=== PATIENT | male | born 1970 | race African-American/Black ===

== ENCOUNTER 2016-09-01 16:05 | Emergency (ER) | payer MEDICAID ==
[2016-09-01 16:19] VITALS: BP 174/89; BMI 26.1
--- NOTE | 2016-09-01 16:37 | DR.N/VMALE ---
HPI - Time Seen Time seen: 16:32 - Primary Care Physician Primary Care Physician: SAVANNAH SHARPE - Complaints Chief Complaint Doctors Comments: Patient with gastroparesis was admitted Aug and discharged on Aug. He states that he at [employer] on yesterday and started vomitng. He reports that he has been vomiting today. He admits to not having medication for vomiting but takens reglan. Chief Complaint:: PT C/O VOMITING TODAY .... Self Treatment fo Chief Complaint: DRAMAMINE - Source History Provided: Patient - Mode of Arrival Mode of Arrival: Ambulatory - Timing Onset of Chief Complaint: 09/01/16 PMH - PMH Past Medical History: Yes Past Medical History: Anxiety, Coronary Artery Disease, Diabetes, Dyslipidemia, GERD, Hypertension Past Surgical History: Yes Surgical History: Cholecystectomy, Ortho Surgery - Family History History of Family Medical Conditions: Yes Family Medical History: Diabetes Mellitus, Hypertension - Social History Does patient currently use any type of tobacco product: No Have you used tobacco products in the last 12 months: No Type of Tobacco Use: None Does any household member use tobacco: No Alcohol Use: None Do you use any recreational Drugs:: No Lives With: Family Lives Where: Home - infectious screening In the last 2 months have you had wt loss of >10#?: NO Have you had fever, night sweats or hemotysis?: No Have you traveled outside the country in the last 6 months?: No Isolation: Standard PE - Vital Signs Vitals: Temperature 98.5 F Pulse Rate 118 Respiratory Rate 20 Blood Pressure [Right Arm] 147/89 Blood Pressure [Left Arm] 126/82 Blood Pressure [Left Radial 160/102 Artery] Blood Pressure 174/89 O2 Sat by Pulse Oximetry 98 Course - Treatment Treatment: IVF and antiemetics, zofran cocktail - Reevaluation 1st: Improved ROR - Labs Reviewed Result Diagrams: 09/01/16 17:10 09/01/16 17:10 Laboratory: WBC 7.2 X10^3/uL (3.6-10.0) 09/01/16 17:10 RBC 5.11 X10^6/uL (4.7-6.0) 09/01/16 17:10 Hgb 13.2 g/dL (13.5-18.0) L 09/01/16 17:10 Hct 39.8 % (42.0-54.0) L 09/01/16 17:10 MCV 78.0 fL (80.0-100.0) L 09/01/16 17:10 MCH 25.8 pg (27.0-34.0) L 09/01/16 17:10 MCHC 33.1 g/dL (33.0-35.0) 09/01/16 17:10 RDW 13.8 % (11.6-16.5) 09/01/16 17:10 Plt Count 303 X10^3/uL (150.0-450.0) 09/01/16 17:10 Plt Count Comment Adequate (ADEQUATE) 09/01/16 17:10 MPV 8.3 fL (7.4-11.0) 09/01/16 17:10 Neut % 74.3 % (42.0-75.0) 09/01/16 17:10 Lymph % 18.3 % (21.0-51.0) L 09/01/16 17:10 [place] % 6.9 % (0.0-13.0) 09/01/16 17:10 Eos % 0.1 % (0.9-2.9) L 09/01/16 17:10 Baso % 0.4 % (0.2-1.0) 09/01/16 17:10 Neut # 5.4 x10^3/uL (2.2-4.8) H 09/01/16 17:10 Lymph # 1.3 X10^3/uL (1.3-2.9) 09/01/16 17:10 [place] # 0.5 x10^3/uL (0.3-0.8) 09/01/16 17:10 Eos # 0.0 x10^3/uL (0.0-0.2) 09/01/16 17:10 Baso # 0.0 X10^3/uL (0.0-0.1) 09/01/16 17:10 Absolute Nucleated RBC 0.0 /100WBC 09/01/16 17:10 Plt Morphology Comment Normal (NORMAL) 09/01/16 17:10 RBC Morphology Normal (NORMAL) 09/01/16 17:10 Sodium 139 mmol/L (136-145) 09/01/16 17:10 Corrected Sodium 143 mmol/L (136-145) 09/01/16 17:10 Potassium 3.7 mmol/L (3.5-5.1) 09/01/16 17:10 Chloride 99 mmol/L (98-107) 09/01/16 17:10 Carbon Dioxide 30.0 mmol/L (21-32) 09/01/16 17:10 BUN 18 mg/dL (7-18) 09/01/16 17:10 Creatinine 1.19 mg/dL (0.70-1.30) 09/01/16 17:10 Est GFR (MDRD) Af Amer > 60 (>60) 09/01/16 17:10 Est GFR (MDRD) Non-Af > 60 (>60) 09/01/16 17:10 Glucose 251 mg/dL (65-99) H 09/01/16 17:10 Calcium 8.8 mg/dL (8.5-10.1) 09/01/16 17:10 Corrected Calcium TNP 09/01/16 17:10 Total Bilirubin 0.80 mg/dL (0.2-1.0) 09/01/16 17:10 AST 16 Units/L (15-37) 09/01/16 17:10 ALT 26 Units/L (12-78) 09/01/16 17:10 Alkaline Phosphatase 108 Units/L (46-116) 09/01/16 17:10 Total Protein 8.3 g/dL (6.4-8.2) H 09/01/16 17:10 Albumin 4.0 g/dL (3.4-5.0) 09/01/16 17:10 Globulin 4.3 g/dL (2.5-4.5) 09/01/16 17:10 Albumin/Globulin Ratio 0.9 Ratio (1.1-2.1) L 09/01/16 17:10 Specimen Type Clean catch urine 09/01/16 17:08 Urine Color Yellow (YELLOW) 09/01/16 17:08 Urine Appearance Clear (CLEAR) 09/01/16 17:08 Urine pH 5.0 (5.0 - 8.0) 09/01/16 17:08 Ur Specific [place] 1.025 (1.000-1.030) 09/01/16 17:08 Urine Protein 2+ (NEGATIVE) 09/01/16 17:08 Urine Glucose (UA) 4+ (NEGATIVE) 09/01/16 17:08 Urine Ketones 4+ (NEGATIVE) 09/01/16 17:08 Urine Occult Blood 2+ (NEGATIVE) 09/01/16 17:08 Urine Nitrite Negative (NEGATIVE) 09/01/16 17:08 Urine Bilirubin Negative (NEGATIVE) 09/01/16 17:08 Urine Urobilinogen 1+ (NORMAL) 09/01/16 17:08 Ur Leukocyte Esterase 1+ (NEGATIVE) 09/01/16 17:08 Urine RBC Rare /HPF (NEGATIVE) 09/01/16 17:08 Urine WBC Rare /HPF (NEGATIVE) 09/01/16 17:08 Ur Squamous Epith Cells Rare /HPF (NEGATIVE) 09/01/16 17:08 Amorphous Sediment Trace /HPF (NEGATIVE) 09/01/16 17:08 Urine Bacteria Negative /HPF (NEGATIVE) 09/01/16 17:08 Ur Culture Indicated? No/not indicated 09/01/16 17:08 - Diagnosis Discharge Problem: Gastroparesis due to DM Intractable vomiting Qualifiers: Vomiting type: unspecified Nausea presence: with nausea Qualified Code(s): R11.2 - Nausea with vomiting, unspecified - Discharge Plan Condition: Stable - Follow ups/Referrals Follow ups/Referrals: Williams Worthington [Primary Care Provider] - 3 days - Instructions
[2016-09-01] MEDS ORDERED: NS 1000 ML 1,000 ML IV ONE ×2 (16:39→20:34)
[2016-09-01] MEDS ORDERED: COMPAZINE PO ONE (16:41)
[2016-09-01] MEDS ORDERED: NS 1000 ML 1,000 ML ONE ×2 (17:03→20:38)
[2016-09-01] MEDS ORDERED: PHENERGAN INJ 25 MG IM ONE (17:04)
[2016-09-01] MEDS ORDERED: PHENERGAN INJ 25 MG ONE (17:04)
[2016-09-01 17:22] LABS: BILIRUBIN,URINE NEGATIVE (NEGATIVE); BLOOD/HEMOGLOBIN,URINE 2+ (NEGATIVE); GLUCOSE, URINE 4+ (NEGATIVE); KETONES,URINE 4+ (NEGATIVE); LEUKOCYTE ESTERASE ,URINE 1+ (NEGATIVE); NITRITES,URINE NEGATIVE (NEGATIVE); PROTEIN,URINE 2+ (NEGATIVE); UROBILINOGEN,URINE 1+ (NORMAL)
[2016-09-01 17:24] LABS: BASOPHILS % (AUTO) 0.4 % (0.2-1.0); EOSINOPHILS % (AUTO) 0.1 % (0.9-2.9); HEMATOCRIT 39.8 % (42.0-54.0); HEMOGLOBIN 13.2 g/dL (13.5-18.0); LYMPHOCYTES # (AUTO) 1.3 X10^3/uL (1.3-2.9); LYMPHOCYTES % (AUTO) 18.3 % (21.0-51.0); MEAN CORPUSCULAR HEMOGLOBIN 25.8 pg (27.0-34.0); MEAN CORPUSCULAR HGB CONC 33.1 g/dL (33.0-35.0); MEAN PLATELET VOLUME 8.3 fL (7.4-11.0); MONOCYTES # (AUTO) 0.5 x10^3/uL (0.3-0.8); MONOCYTES % (AUTO) 6.9 % (0.0-13.0); NEUTROPHILS # (AUTO) 5.4 x10^3/uL (2.2-4.8); NEUTROPHILS % (AUTO) 74.3 % (42.0-75.0); PLATELET COUNT 303 X10^3/uL (150.0-450.0); RED BLOOD COUNT 5.11 X10^6/uL (4.7-6.0); RED CELL DISTRIBUTION WIDTH 13.8 % (11.6-16.5); WHITE BLOOD COUNT 7.2 X10^3/uL (3.6-10.0)
[2016-09-01 17:36] LABS: ALANINE AMINOTRANSFERASE 26 Units/L (12-78); ALKALINE PHOSPHATASE 108 Units/L (46-116); ASPARTATE AMINO TRANSFERASE 16 Units/L (15-37); BLOOD UREA NITROGEN 18 mg/dL (7-18); CALCIUM 8.8 mg/dL (8.5-10.1); CHLORIDE 99 mmol/L (98-107); COR NA(FOR HYPERGLY) 143 mmol/L (136-145); CREATININE 1.19 mg/dL (0.70-1.30); GLUCOSE 251 mg/dL (65-99); SODIUM 139 mmol/L (136-145); TOTAL PROTEIN 8.3 g/dL (6.4-8.2); eGFR BLACK RACES > 60 (>60); eGFR NON BLACK RACES > 60 (>60)
[2016-09-01 17:45] LABS: PLATELET MORPHOLOGY COMMENT NORMAL (NORMAL)
[2016-09-01 18:06] LABS: APPEARANCE,URINE CLEAR (CLEAR); BACTERIA,URINE NEGATIVE /HPF (NEGATIVE); COLOR,URINE YELLOW (YELLOW); RBC,URINE RARE /HPF (NEGATIVE); SQUAMOUS EPITHELIAL CELL,UR RARE /HPF (NEGATIVE)
[2016-09-01 18:07] LABS: AMORPHOUS SEDIMENT,UR TRACE /HPF (NEGATIVE)
[2016-09-01] MEDS ORDERED: ZOFRAN INJ 4 MG VIAL 16 MG, ATIVAN INJ 2 MG VIAL 1 MG, DECADRON INJ 10 MG in NS 50 ML I... IV ONE (20:34)
[2016-09-01] MEDS ORDERED: ZOFRAN INJ 4 MG VIAL ONE (20:36)
[2016-09-01] MEDS ORDERED: DECADRON INJ ONE (20:37)
[2016-09-01] MEDS ORDERED: NS 50 ML IV 50 ML IV ONE (20:37)
[2016-09-01] MEDS ORDERED: ATIVAN INJ 2 MG VIAL ONE (20:37)
== END 2016-09-01 21:55 | disposition home or self-care (01) ==
LOC: ER 16:05
DX: E11.9 Type 2 diabetes mellitus without complications (principal); K31.84 Gastroparesis; R11.2 Nausea with vomiting, unspecified
CPT/HCPCS: 36415; 80053; 81001; 85025; 96365; 96367; 96372; 96374; 99283; A4222; J1100; J2060; J2405; J2550

== ENCOUNTER → 2016-09-05 | Outpatient (CLI) | payer MEDICAID ==
[2016-09-01 16:19] VITALS: BP 174/89
--- NOTE | 2016-09-05 15:36 | RAD ---
HISTORY: Lumbosacral neuritis, low back pain Study: Flexion and extension views of the lumbar spine Comparison: Prior MRI 07/26/2014 Findings: Normal alignment of the lumbar spine with no significant subluxation on flexion and extension views. Degenerative disc disease and endplate sclerosis with marginal osteophyte formation is seen at L5-S 1. Cholecystectomy clips are noted. There is a large volume of retained stool. IMPRESSION: 1. Degenerative changes at L5-S1. No evidence of subluxation on flexion and extension. Reported By:
--- NOTE | 2016-09-06 14:21 | MRI ---
HISTORY: Back pain Study: MRI lumbar spine without contrast Comparison: 07/26/2014 Technique: Multiplanar multi-sequence MRI of the lumbar spine was obtained. Sagittal T1, sagittal T 2, and stir weighted images, axial T1, and axial T2 images were obtained. Findings: The lumbar spine demonstrates normal alignment . There is mild to moderate disc space narrowing thro ughout with severe narrowing at L5-S1 which is unchanged. There is severe disc desiccation at L5-S1 with associated moderate endplate degenerative changes which is unchanged. No fracture or subluxatio n is seen. The conus is normal. There is a moderate broad-based disc protrusion at L5-S1 causing mod erate anterior dural sac effacement and mild effacement of the S1 nerve roots bilaterally which is u nchanged. There are mild hypertrophic changes of the facets throughout with ligament flavum hypertro phy causing mild spinal stenosis throughout which is unchanged. The paravertebral soft tissues are n ormal. IMPRESSION: Mild to moderate multilevel degenerative disc disease which is unchanged with no acute bony abnormal ity seen. Severe degenerative disc disease at L5-S1 with an associated moderate broad-based central protrusion which is unchanged. Mild osteoarthritic changes of the facets throughout and associated diffuse mild spinal stenosis whi ch is unchanged. Reported By:
== END | disposition home or self-care (01) | DRG 552 ==
LOC: RAD 13:25
PROVIDERS: ATTEND Neurological Surgery
DX: M54.17 Radiculopathy, lumbosacral region (principal); M51.37 Other intervertebral disc degeneration, lumbosacral region
CPT/HCPCS: 72120; 72148

== ENCOUNTER 2017-01-26 21:42 | Inpatient (IN) | payer MEDICAID ==
[2017-01-26] MEDS ORDERED: NS 1000 ML 1,000 ML ONE (21:52)
[2017-01-26] MEDS ORDERED: ZOFRAN INJ 4 MG VIAL ONE (21:53)
--- NOTE | 2017-01-26 22:20 | DR.N/VMALE ---
HPI - Time Seen Time seen: 22:05 - Primary Care Physician Primary Care Physician: ethan - HPI Comment HPI Comment: Patient states that he has not been able to hold anything down today. He is known to the department. He has a history of gastroparesis. - Complaints Chief Complaint:: n/v since earlier today Self Treatment fo Chief Complaint: phenergan - Source History Provided: Patient - Mode of Arrival Mode of Arrival: Ambulatory - Timing Onset of Chief Complaint: 01/26/17 PMH - PMH Past Medical History: Yes Past Medical History: Anxiety, Coronary Artery Disease, Diabetes, Dyslipidemia, GERD, Hypertension Past Surgical History: Yes Surgical History: Cholecystectomy, Ortho Surgery - Family History History of Family Medical Conditions: Yes Family Medical History: Diabetes Mellitus, Hypertension - Social History Does patient currently use any type of tobacco product: No Have you used tobacco products in the last 12 months: No Type of Tobacco Use: None Does any household member use tobacco: No Alcohol Use: None Do you use any recreational Drugs:: No Lives With: Spouse, Family Lives Where: Home - infectious screening Have you traveled outside the country in the last 6 months?: No Isolation: Standard ROS - Review of Systems Eyes: No Symptoms Reported ENTM: No Symptoms Reported Respiratoy: No Symptoms Reported Cardiovascular: No Symptoms Reported Gastrointestinal/Abdominal: No Symptoms Reported Genitourinary: No Symptoms Reported Neurological: No Symptoms Reported Musculoskeletal: No Symptoms Reported Integumentary: No Symptoms Reported Hematologic/Lymphatic: No Symptoms Reported Endocrine: No Symptoms Reported Psychiatric: No Symptoms Reported All Other Systems: Reviewed and Negative PE - Vital Signs Vitals: Pulse Rate 115 Respiratory Rate 16 Blood Pressure [Right Arm] 147/89 Blood Pressure [Left Arm] 126/82 Blood Pressure [Left Radial 160/102 Artery] Blood Pressure 176/96 O2 Sat by Pulse Oximetry 100 - General General Appearance: Alert, In No Apparent Distress - Head Head Exam: Normal Inspection, Atraumatic - Eyes Eye exam: Normal Appearance, PERRL, EOMI - ENT ENT Exam: Normal Exam, Normal Oropharynx - Neck Neck Exam: Normal Inspection, Full ROM - Chest Chest Inspection: Normal Inspection, Symmetric Chest Wall Rise - Respiratory Respiratory Exam: Normal Lung Sounds Bilat Respiratory Exam: Bilateral Clear to Auscultation - Cardiovascular Cardiovascular Exam: Regular Rate, Normal Rhythm - Abdominal Exam Abdominal Exam: Normal Inspection, Normal Bowel Sounds Abdominal Tenderness: Diffuse - Rectal Rectal Exam: Deferred - Exam: Male: Deferred - Extremities Extremities Exam: Normal Inspection, Full ROM - Back Back Exam: Normal Inspection - Neurologic Neurological Exam: Alert, Oriented X3, CN II-XII Intact - Psychiatric Psychiatric Exam: Normal Affect, Normal Mood - Skin Skin Exam: Warm, Dry, Intact Course - Treatment Treatment: Patient continues to vomit - Reevaluation 1st: Unchanged - Consultation Called: 00:30 Call Returned: 00:52 Consultation Comments: Patient with gastroparesis unable to hold anything down, patient of Dr long. Dr Cohen agreed to admit for further treatment ROR - Labs Reviewed Result Diagrams: 01/26/17 22:57 01/26/17 22:57 Laboratory: WBC 11.9 X10^3/uL (3.6-10.0) H 01/26/17 22:57 RBC 5.05 X10^6/uL (4.7-6.0) 01/26/17 22:57 Hgb 12.9 g/dL (13.5-18.0) L 01/26/17 22:57 Hct 39.6 % (42.0-54.0) L 01/26/17 22:57 MCV 78.4 fL (80.0-100.0) L 01/26/17 22:57 MCH 25.6 pg (27.0-34.0) L 01/26/17 22:57 MCHC 32.6 g/dL (33.0-35.0) L 01/26/17 22:57 RDW 14.4 % (11.6-16.5) 01/26/17 22:57 Plt Count 318 X10^3/uL (150.0-450.0) 01/26/17 22:57 Plt Count Comment Adequate (ADEQUATE) 01/26/17 22:57 MPV 9.2 fL (7.4-11.0) 01/26/17 22:57 Neut % 92.7 % (42.0-75.0) H 01/26/17 22:57 Lymph % 5.5 % (21.0-51.0) L 01/26/17 22:57 [place] % 1.6 % (0.0-13.0) 01/26/17 22:57 Eos % 0.0 % (0.9-2.9) L 01/26/17 22:57 Baso % 0.2 % (0.2-1.0) 01/26/17 22:57 Neut # 11.0 x10^3/uL (2.2-4.8) H 01/26/17 22:57 Lymph # 0.7 X10^3/uL (1.3-2.9) L 01/26/17 22:57 [place] # 0.2 x10^3/uL (0.3-0.8) L 01/26/17 22:57 Eos # 0.0 x10^3/uL (0.0-0.2) 01/26/17 22:57 Baso # 0.0 X10^3/uL (0.0-0.1) 01/26/17 22:57 Absolute Nucleated RBC 0.0 /100WBC 01/26/17 22:57 Total Counted 100 01/26/17 22:57 Neutrophils % (Manual) 93 % (39-76) H 01/26/17 22:57 Band Neutrophils % 6 % (0-10) 01/26/17 22:57 Lymphocytes % (Manual) 1 % (13-43) L 01/26/17 22:57 Plt Morphology Comment Normal (NORMAL) 01/26/17 22:57 RBC Morphology Abnormal (NORMAL) 01/26/17 22:57 Hypochromasia Slight A 01/26/17 22:57 Sodium 142 mmol/L (136-145) 01/26/17 22:57 Corrected Sodium 151 mmol/L (136-145) H 01/26/17 22:57 Potassium 4.0 mmol/L (3.5-5.1) 01/26/17 22:57 Chloride 99 mmol/L (98-107) 01/26/17 22:57 Carbon Dioxide 25.0 mmol/L (21-32) 01/26/17 22:57 BUN 16 mg/dL (7-18) 01/26/17 22:57 Creatinine 1.34 mg/dL (0.70-1.30) H 01/26/17 22:57 Est GFR (MDRD) Af Amer > 60 (>60) 01/26/17 22:57 Est GFR (MDRD) Non-Af > 60 (>60) 01/26/17 22:57 Glucose 463 mg/dL (65-99) H 01/26/17 22:57 Calcium 9.1 mg/dL (8.5-10.1) 01/26/17 22:57 Corrected Calcium TNP 01/26/17 22:57 Total Bilirubin 0.60 mg/dL (0.2-1.0) 01/26/17 22:57 AST 13 Units/L (15-37) L 01/26/17 22:57 ALT 22 Units/L (12-78) 01/26/17 22:57 Alkaline Phosphatase 162 Units/L (46-116) H 01/26/17 22:57 C-Reactive Protein 10.10 mg/L (0-3.0) H 01/26/17 22:57 Total Protein 8.9 g/dL (6.4-8.2) H 01/26/17 22:57 Albumin 4.1 g/dL (3.4-5.0) 01/26/17 22:57 Globulin 4.8 g/dL (2.5-4.5) H 01/26/17 22:57 Albumin/Globulin Ratio 0.9 Ratio (1.1-2.1) L 01/26/17 22:57 Amylase 141 Units/L (25-115) H 01/26/17 22:57 Lipase 55 Units/L (73-393) L 01/26/17 22:57 - Diagnosis Discharge Problem: DM gastroparesis - Discharge Plan Condition: Stable - Follow ups/Referrals Follow ups/Referrals: Williams Long [Primary Care Provider] - 3 days - Instructions
[2017-01-26] MEDS ORDERED: NS 1000 ML 1,000 ML IV ONE (22:45)
[2017-01-26] MEDS ORDERED: REGLAN INJ 10 MG VIAL IVP ONE (22:46)
[2017-01-26 23:07] LABS: BASOPHILS % (AUTO) 0.2 % (0.2-1.0); HEMATOCRIT 39.6 % (42.0-54.0); HEMOGLOBIN 12.9 g/dL (13.5-18.0); LYMPHOCYTES # (AUTO) 0.7 X10^3/uL (1.3-2.9); LYMPHOCYTES % (AUTO) 5.5 % (21.0-51.0); MEAN CORPUSCULAR HEMOGLOBIN 25.6 pg (27.0-34.0); MEAN CORPUSCULAR HGB CONC 32.6 g/dL (33.0-35.0); MEAN CORPUSCULAR VOLUME 78.4 fL (80.0-100.0); MEAN PLATELET VOLUME 9.2 fL (7.4-11.0); MONOCYTES # (AUTO) 0.2 x10^3/uL (0.3-0.8); MONOCYTES % (AUTO) 1.6 % (0.0-13.0); NEUTROPHILS % (AUTO) 92.7 % (42.0-75.0); PLATELET COUNT 318 X10^3/uL (150.0-450.0); RED BLOOD COUNT 5.05 X10^6/uL (4.7-6.0); RED CELL DISTRIBUTION WIDTH 14.4 % (11.6-16.5); WHITE BLOOD COUNT 11.9 X10^3/uL (3.6-10.0)
[2017-01-26] MEDS ORDERED: ZOFRAN INJ 4 MG VIAL IVP ONE (23:08)
[2017-01-26] MEDS ORDERED: REGLAN INJ 10 MG VIAL ONE (23:08)
[2017-01-26 23:18] LABS: ALANINE AMINOTRANSFERASE 22 Units/L (12-78); ALBUMIN 4.1 g/dL (3.4-5.0); ALKALINE PHOSPHATASE 162 Units/L (46-116); AMYLASE 141 Units/L (25-115); ASPARTATE AMINO TRANSFERASE 13 Units/L (15-37); BLOOD UREA NITROGEN 16 mg/dL (7-18); CALCIUM 9.1 mg/dL (8.5-10.1); CHLORIDE 99 mmol/L (98-107); COR NA(FOR HYPERGLY) 151 mmol/L (136-145); CREATININE 1.34 mg/dL (0.70-1.30); GLUCOSE 463 mg/dL (65-99); LIPASE 55 Units/L (73-393); SODIUM 142 mmol/L (136-145); TOTAL PROTEIN 8.9 g/dL (6.4-8.2); eGFR BLACK RACES > 60 (>60); eGFR NON BLACK RACES > 60 (>60)
[2017-01-26 23:27] LABS: BAND NEUTROPHILS % 6 % (0-10); HYPOCHROMASIA SLIGHT; PLATELET MORPHOLOGY COMMENT NORMAL (NORMAL)
[2017-01-27] MEDS ORDERED: NS 1000 ML 1,000 ML IV ONE (00:22)
[2017-01-27] MEDS ORDERED: NS 1000 ML 1,000 ML ONE (00:32)
[2017-01-27] MEDS ORDERED: DEMEROL INJ IVP ONE (00:32)
[2017-01-27] MEDS ORDERED: DEMEROL INJ ONE (00:34)
--- NOTE | 2017-01-27 01:05 | RAD ---
EXAM: Abdomen x-ray INDICATION: Tube placement COMPARISION: No priors TECHNIQUE: AP view, single view FINDINGS: Nasogastric tube tip is in the stomach. The bowel loops are nonobstructed. No abnormal mass or calci fication is identified. The regional skeleton is intact. IMPRESSION: Normal single view abdominal x-ray examination Reported By:
[2017-01-27 01:58] VITALS: BMI 25.0
[2017-01-27] MEDS ORDERED: VASOTEC INJ 1.25 MG VIAL IVP ONE (02:47)
[2017-01-27] MEDS: NS 1000 ML 1,000 ML IV SCH ×3 (03:10→21:34)
[2017-01-27] MEDS: DEMEROL INJ IVP PRN ×3 (05:07→21:32)
[2017-01-27] MEDS: REGLAN INJ 10 MG VIAL IVP PRN ×3 (05:07→21:31)
[2017-01-27 05:15] LABS: BASOPHILS # (AUTO) 0.2 X10^3/uL (0.0-0.1); BASOPHILS % (AUTO) 1.6 % (0.2-1.0); EOSINOPHILS # (AUTO) 0.1 x10^3/uL (0.0-0.2); EOSINOPHILS % (AUTO) 0.8 % (0.9-2.9); HEMATOCRIT 41.1 % (42.0-54.0); HEMOGLOBIN 13.3 g/dL (13.5-18.0); LYMPHOCYTES # (AUTO) 0.8 X10^3/uL (1.3-2.9); LYMPHOCYTES % (AUTO) 6.6 % (21.0-51.0); MEAN CORPUSCULAR HEMOGLOBIN 25.5 pg (27.0-34.0); MEAN CORPUSCULAR HGB CONC 32.4 g/dL (33.0-35.0); MEAN CORPUSCULAR VOLUME 78.6 fL (80.0-100.0); MEAN PLATELET VOLUME 9.5 fL (7.4-11.0); MONOCYTES # (AUTO) 0.3 x10^3/uL (0.3-0.8); MONOCYTES % (AUTO) 2.4 % (0.0-13.0); NEUTROPHILS # (AUTO) 10.2 x10^3/uL (2.2-4.8); NEUTROPHILS % (AUTO) 88.6 % (42.0-75.0); PLATELET COUNT 336 X10^3/uL (150.0-450.0); RED BLOOD COUNT 5.22 X10^6/uL (4.7-6.0); RED CELL DISTRIBUTION WIDTH 14.2 % (11.6-16.5); WHITE BLOOD COUNT 11.5 X10^3/uL (3.6-10.0)
[2017-01-27 05:37] LABS: ALANINE AMINOTRANSFERASE 23 Units/L (12-78); ALKALINE PHOSPHATASE 158 Units/L (46-116); ASPARTATE AMINO TRANSFERASE 16 Units/L (15-37); BLOOD UREA NITROGEN 15 mg/dL (7-18); CARBON DIOXIDE 24.3 mmol/L (21-32); CHLORIDE 105 mmol/L (98-107); COR NA(FOR HYPERGLY) 152 mmol/L (136-145); CREATININE 1.11 mg/dL (0.70-1.30); GLUCOSE 367 mg/dL (65-99); SODIUM 146 mmol/L (136-145); TOTAL PROTEIN 8.9 g/dL (6.4-8.2); eGFR BLACK RACES > 60 (>60); eGFR NON BLACK RACES > 60 (>60)
[2017-01-27] MEDS: HumuLIN R SUBCUT PRN ×5 (05:39→21:42)
[2017-01-27 06:00] LABS: BAND NEUTROPHILS % 2 % (0-10); HYPOCHROMASIA SLIGHT; PLATELET MORPHOLOGY COMMENT NORMAL (NORMAL)
[2017-01-27] MEDS ORDERED: CHLORASEPTIC SPRAY MT PRN (09:45)
--- NOTE | 2017-01-27 09:57 | DR.H&P ---
H&P - History & Physical for Day of: H&P Date: 01/27/17 - Chief Complaint Chief Complaint: nausea, vomiting, hx gastroparesis - Allergies Allergies/Adverse Reactions: Allergies Allergy/AdvReac Type Severity Reaction Status Date / Time codeine Allergy Verified 01/26/17 23:47 morphine Allergy Verified 01/26/17 23:47 - History of Present Illness History of Present Illness: IS A 46 YEAR OLD PATIENT OF OURS WHO PRESENTED TO THE EMERGENCY ROOM WITH COMPLAINTS OF NAUSEA, VOMITING AND ABDOMINAL PAIN ONSET 01/26/17 AROUND 2PM. PATIENT REPORTS THAT HE HAS A HISTORY OF DIABETIC GASTROPARESIS. ON EXAMINATION, LUNGS WERE CLEAR TO AUSCULTATION, NORMAL BOWEL SOUNDS IN ALL QUADRANTS, AND DIFFUSE ABDOMINAL TENDERNESS NOTED. ON ARRIVAL TO ER, VITALS WERE 97.1-271-74-100-176/96. CBC REPORTS WBC 11.9, HGB 12.9, HCT 39.6. CMP WNL EXCEPT CREATININE 1.34, GLUCOSE 463, AST 13, ALKALINE PHOSPHATASE 162, CRP 10.10, TOTAL PROTEIN 8.9, AMYLASE 141, LIPASE 55. A NG TUBE WAS PLACED. PLACEMENT CONFIRMED BY KUB. HE WAS GIVEN NS BOLUS X 2, ZOFRAN 4MG IV X 1, REGLAN 10MG IV X 1, DEMEROL 25MG IV X 1, AND VASOTEC 1.25MG IV X 1. BLOOD PRESSURE DECREASED TO 146/54. WE ADMITTED PATIENT FOR FURTHER TREATMENT AND EVALUATION. HE WAS STARTED ON NS @ 125ML/HR, SLIDING SCALE INSULIN , DEMEROL 25MG IV Q6H PRN, AND REGLAN 10MG IV Q6H PRN. WE PLANNED TO RECHECK LABS AND FOLLOW UP WITH PATIENT IN AM. - Past Medical History Past Medical History: Anxiety, Coronary Artery Disease, Diabetes, Dyslipidemia, GERD, Hypertension Additional Medical History: Diabetic Neuropathy, Diabetic Gastroparesis, Hiatal Hernia, Gastric Ulcer, Gall Bladder Disease, Back Pain - Past Surgical History Surgical History: Cholecystectomy, Ortho Surgery Additional Surgical History: Right foot I&D - Family History Family Medical History: Diabetes Mellitus, Hypertension - Social History Does patient currently use any type of tobacco product: No Have you used tobacco products in the last 12 months: No Type of Tobacco Use: None Does any household member use tobacco: No Alcohol Use: None Drug Use: None - Review of Systems Constitutional: Weakness. denies: No Symptoms Reported, See HPI, Fever, Chills , Sweats, Malaise, Other Eyes: No Symptoms Reported ENT: No Symptoms Reported. denies: See HPI, Ear Pain, Ear Discharge, Nose Pain , Nose Discharge, Nose Congestion, Mouth Pain, Mouth Swelling, Throat Pain, Throat Swelling, Other Respiratory: No Symptoms Reported. denies: See HPI, Cough, Dry, Shortness of Breath, Hemoptysis, SOB with Excertion, Pleuritic Pain, Sputum, Wheezing, Other Cardiovascular: No Symptoms Reported. denies: Chest Pain, See HPI, Palpitations , Orthopnea, Paroxysmal Noc. Dyspnea, Edema, Light Headedness, Other Gastrointestinal: See HPI, Nausea, Vomiting. denies: No Symptoms Reported, Abdominal Pain, Diarrhea, Constipation, Melena, Hematochezia, Other Genitourinary: No Symptoms Reported. denies: See HPI, Dysuria, Frequency, Incontinence, Hematuria, Retention, Other Musculoskeletal: No Symptoms Reported. denies: See HPI, Shoulder Pain, Arm Pain , Back Pain, Hand Pain, Leg Pain, Foot Pain, Neck Pain, Other Skin: No Symptoms Reported. denies: See HPI, Rash, Lesions, Jaundice, Bruising , Wound, Ecchymosis, Other Neurological: No Symptoms Reported. denies: See HPI, Weakness, Numbness, Incoordination, Change in Speech, Confusion, Seizures, Other - Physical Exam Vital Signs: Temperature 97.6 F Pulse Rate [Left Brachial] 112 Respiratory Rate 20 Blood Pressure [Right Arm] 165/89 O2 Sat by Pulse Oximetry 100 Oriented: Normal. negative: Time, Person, Place, Not Oriented, Unable to test, Other Eyes: Normal. negative: Blurred Vision, Diplopia, Discharge, Pain, Redness, Photophobia, Other Ear: Normal. negative: Right, Left, Swelling, Ecchymosis, Hemotypanum, Abrasion , Laceration Nose: Normal. negative: Injected, Discharge, Blood, Other Throat: Normal. negative: Tonsillar Hypertrophy, Red, Exudate, Dry, Other Respiratory: Clear Throughout. negative: Diminished Throughout, Rhonchi Throughout, Rales Throughout, Wheezes Throughout, RUL Clear, RML Clear, RLL Clear, MARI Clear, LML Clear, LLL Clear, RUL Diminished, RML Diminished, RLL Diminished, MARI Diminished, LML Diminished, LLL Diminished, RUL Absent, RML Absent, RLL Absent, MARI Absent, LML Absent, LLL Absent, RUL Rhonchi, RML Rhonchi , RLL Rhonchi, MARI Rhonchi, LML Rhonchi, LLL Rhonchi, RUL Insp. Wheeze, RML Insp. Wheeze, RLL Insp. Wheeze, MARI Insp.Wheeze, LML Insp.Wheeze, LLL Insp.Wheeze, RUL Exp. Wheeze, RML Exp. Wheeze, RLL Exp. Wheeze, MARI Exp. Wheeze , LML Exp. Wheeze, LLL Exp. Wheeze, RUL Rales, RML Rales, RLL Rales, MARI Rales, LML Rales, LLL Rales, RUL Rub, RML Rub, RLL Rub, MARI Rub, LML Rub, LLL Rub, RUL Squeak, RML Squeak, RLL Squeak, MARI Squeak, LML Squeak, LLL Squeak Cardiovascular: Normal. negative: Tachycardia, Bradycardia, Irregular, S3, S4, Systolic, Diastolic, Murmur, Edema, Other : Normal. negative: Dysuria, Hematuria, Frequency, Discharge, Testicular Pain , Bleeding, , Other Auscultation: Bowel Sounds: Normal. negative: Bruit, Absent, Increased, Decreased, High Pitched, Other Palpation: negative: Normal, Spleen Enlarged, Liver Enlarged, Mass Pulsatile, Other Tenderness: Diffuse, Moderate. negative: Normal, RUQ, RLQ, LUQ, LLQ, Epigastric , Periumbilical, Suprapubic, Mild, Severe, Rebound, Guarding, Rigidity, Other Skin: Normal. negative: Decreased Turgur, Rash, Papular, Macular, Maculopapular , Vesicular, Pustular, Petechial, Red, Tender, Hot, Diaphoresis, Wound, Bruising , Ecchymosis, Other Musculoskeletal: Normal. negative: Right, Left, Shoulder, Clavicle, Arm, Elbow , Forearm, Wrist, Hand, Hip, Thigh, Knee, Leg, Ankle, Foot, Back:Thoracic, Back: Lumbar, Back:Midline, Back:Paraspinous, Pelvis, Swelling, Tender, Deformity, Pulse Deficit, Motor Deficit, Sensory Deficit, Instability, Crepitance Psychiatric: Normal. negative: Anxiety, Depression, Agitation, Other Mood Description: Calm. negative: Angry, Apathetic, Depressed, Fearful, Flat, Happy, Hostile, Sad, Suspicious, Withdrawn, Anxious, Appropriate, Labile Affect: Normal. negative: Angry, Anxious, Depressed, Flat, Hysterical, Quiet, Violent Speech Pattern: Clear. negative: Appropriate, Unclear, Inappropriate, Delayed, Slurred, Excessive, Aphasic, Artificially Ventilated - Assessment/Plan (1) DM gastroparesis Status: Acute Plan: REGLAN 10MG IVP Q6H PRN, NG TUBE, CONTINUE TO MONITOR (2) Diabetes mellitus type 1 Qualifiers: Diabetes mellitus complication status: with other specified complication Diabetes mellitus complication detail: D Diabetic retinopathy severity: D Proliferative retinopathy type: P Diabetes mellitus macular edema: D Laterality: L Chronic kidney disease stage: C Qualified Code(s): E10.69 - Type 1 diabetes mellitus with other specified complication Status: Chronic Plan: SLIDING SCALE INSULIN, CONTINUE TOUJEO 50UNITS AT HS, CHECK OTBS, CONTINUE TO MONITOR
[2017-01-27] MEDS: VASOTEC INJ 1.25 MG VIAL IVP PRN (23:37)
[2017-01-28] MEDS: DEMEROL INJ IVP PRN ×2 (03:18→20:44)
[2017-01-28] MEDS: REGLAN INJ 10 MG VIAL IVP PRN ×3 (03:21→20:34)
[2017-01-28 05:23] LABS: ALANINE AMINOTRANSFERASE 21 Units/L (12-78); ALBUMIN 3.7 g/dL (3.4-5.0); ALKALINE PHOSPHATASE 133 Units/L (46-116); ASPARTATE AMINO TRANSFERASE 19 Units/L (15-37); BASOPHILS # (AUTO) 0.1 X10^3/uL (0.0-0.1); BASOPHILS % (AUTO) 0.6 % (0.2-1.0); BLOOD UREA NITROGEN 18 mg/dL (7-18); CALCIUM 8.4 mg/dL (8.5-10.1); CARBON DIOXIDE 33.9 mmol/L (21-32); CHLORIDE 108 mmol/L (98-107); COR NA(FOR HYPERGLY) 154 mmol/L (136-145); CREATININE 0.97 mg/dL (0.70-1.30); EOSINOPHILS % (AUTO) 0.1 % (0.9-2.9); GLUCOSE 196 mg/dL (65-99); HEMATOCRIT 39.5 % (42.0-54.0); LYMPHOCYTES # (AUTO) 1.3 X10^3/uL (1.3-2.9); LYMPHOCYTES % (AUTO) 8.8 % (21.0-51.0); MEAN CORPUSCULAR HEMOGLOBIN 25.5 pg (27.0-34.0); MEAN CORPUSCULAR HGB CONC 32.8 g/dL (33.0-35.0); MEAN CORPUSCULAR VOLUME 77.7 fL (80.0-100.0); MEAN PLATELET VOLUME 9.4 fL (7.4-11.0); MONOCYTES # (AUTO) 0.9 x10^3/uL (0.3-0.8); MONOCYTES % (AUTO) 6.2 % (0.0-13.0); NEUTROPHILS # (AUTO) 12.3 x10^3/uL (2.2-4.8); NEUTROPHILS % (AUTO) 84.3 % (42.0-75.0); PLATELET COUNT 348 X10^3/uL (150.0-450.0); RED BLOOD COUNT 5.09 X10^6/uL (4.7-6.0); RED CELL DISTRIBUTION WIDTH 14.7 % (11.6-16.5); TOTAL PROTEIN 8.3 g/dL (6.4-8.2); WHITE BLOOD COUNT 14.5 X10^3/uL (3.6-10.0); eGFR BLACK RACES > 60 (>60); eGFR NON BLACK RACES > 60 (>60)
[2017-01-28 05:36] LABS: SODIUM 152 mmol/L (136-145)
[2017-01-28] MEDS ORDERED: POTASSIUM CHLORIDE LIQ 20 MEQ UDC PO PRN (05:54)
[2017-01-28] MEDS ORDERED: K-RIDER 10 MEQ/NS 100 ML 10 MEQ/100 ML BAG IV PRN (05:54)
[2017-01-28] MEDS: NS 1000 ML 1,000 ML IV SCH ×7 (05:57→22:09)
[2017-01-28] MEDS: HumuLIN R SUBCUT PRN ×3 (05:58→17:00)
[2017-01-28 06:03] LABS: HYPOCHROMASIA SLIGHT; PLATELET MORPHOLOGY COMMENT NORMAL (NORMAL)
[2017-01-28] MEDS ORDERED: K-LYTE EFFERVESCENT ONE (06:06)
[2017-01-28] MEDS: K-LYTE EFFERVESCENT PO PRN (06:09)
--- NOTE | 2017-01-28 06:45 | RAD ---
HISTORY: Gastro paresis Study: KUB Comparison: January 27, 2017 Findings: Evaluation of the abdomen demonstrates a normal bowel gas pattern. No pathological soft tissue mass or calcification can be observed. The bony structures are grossly intact. There is a nasogastric t ube in good position. IMPRESSION: 1. No evidence for acute abdominal pathology identified. Reported By:
[2017-01-28] MEDS ORDERED: KLONOPIN TAB 1 MG PO PRN (06:56)
[2017-01-28] MEDS: NORCO 10/325 TAB PO SCH ×2 (08:14→20:37)
[2017-01-28] MEDS: COZAAR PO SCH (08:15)
[2017-01-28] MEDS: PROTONIX TAB 40 MG PO SCH ×2 (08:15→20:37)
[2017-01-28] MEDS ORDERED: CATAPRES-TTS-3 TD SCH (09:00)
[2017-01-28] MEDS: PEPCID TAB 20 MG PO SCH (20:37)
[2017-01-28] MEDS: TOUJEO SOLOSTAR PEN SC SCH (20:39)
[2017-01-28] MEDS ORDERED: PATIENT'S HOME MEDICATION (Famotidine [Pepcid] 40 MG) PO SCH (21:00)
[2017-01-29] MEDS: VASOTEC INJ 1.25 MG VIAL IVP PRN ×3 (03:40→23:30)
[2017-01-29] MEDS: REGLAN INJ 10 MG VIAL IVP PRN ×4 (03:55→23:30)
[2017-01-29] MEDS: DEMEROL INJ IVP PRN ×3 (05:05→20:52)
[2017-01-29] MEDS: NS 1000 ML 1,000 ML IV SCH ×4 (05:46→22:34)
[2017-01-29 06:26] LABS: BASOPHILS # (AUTO) 0.1 X10^3/uL (0.0-0.1); BASOPHILS % (AUTO) 0.9 % (0.2-1.0); EOSINOPHILS % (AUTO) 0.1 % (0.9-2.9); HEMATOCRIT 37.9 % (42.0-54.0); HEMOGLOBIN 12.4 g/dL (13.5-18.0); LYMPHOCYTES # (AUTO) 1.3 X10^3/uL (1.3-2.9); LYMPHOCYTES % (AUTO) 16.3 % (21.0-51.0); MEAN CORPUSCULAR HEMOGLOBIN 25.5 pg (27.0-34.0); MEAN CORPUSCULAR HGB CONC 32.7 g/dL (33.0-35.0); MEAN PLATELET VOLUME 9.2 fL (7.4-11.0); MONOCYTES # (AUTO) 0.5 x10^3/uL (0.3-0.8); NEUTROPHILS # (AUTO) 5.9 x10^3/uL (2.2-4.8); NEUTROPHILS % (AUTO) 75.7 % (42.0-75.0); PLATELET COUNT 273 X10^3/uL (150.0-450.0); RED BLOOD COUNT 4.85 X10^6/uL (4.7-6.0); RED CELL DISTRIBUTION WIDTH 14.3 % (11.6-16.5); WHITE BLOOD COUNT 7.7 X10^3/uL (3.6-10.0)
[2017-01-29 06:49] LABS: HYPOCHROMASIA SLIGHT; PLATELET MORPHOLOGY COMMENT NORMAL (NORMAL)
[2017-01-29 07:00] LABS: ALANINE AMINOTRANSFERASE 27 Units/L (12-78); ALBUMIN 3.2 g/dL (3.4-5.0); ALKALINE PHOSPHATASE 121 Units/L (46-116); ASPARTATE AMINO TRANSFERASE 32 Units/L (15-37); BLOOD UREA NITROGEN 13 mg/dL (7-18); CALCIUM 7.5 mg/dL (8.5-10.1); CARBON DIOXIDE 25.1 mmol/L (21-32); CHLORIDE 102 mmol/L (98-107); COR CA(FOR HYPOALB) 8.1 mg/dL (8.5-10.1); COR NA(FOR HYPERGLY) 144 mmol/L (136-145); CREATININE 0.83 mg/dL (0.70-1.30); GLUCOSE 195 mg/dL (65-99); SODIUM 142 mmol/L (136-145); TOTAL PROTEIN 7.3 g/dL (6.4-8.2); eGFR BLACK RACES > 60 (>60); eGFR NON BLACK RACES > 60 (>60)
[2017-01-29] MEDS: NORCO 10/325 TAB PO SCH ×2 (09:06→20:52)
[2017-01-29] MEDS: PROTONIX TAB 40 MG PO SCH ×2 (09:06→20:52)
[2017-01-29] MEDS: COZAAR PO SCH (09:07)
[2017-01-29] MEDS: HumuLIN R SUBCUT PRN ×2 (13:35→16:28)
--- NOTE | 2017-01-29 18:14 | PCM.PROG ---
Progress Note - Progress Note for Day of Date: 01/28/17 - Subjective Subjective: IS ALERT AND ORIENTED ON ROUNDS. HE IS NOTED WITH COMPLAINTS OF ABDOMINAL PAIN, AND NAUSEA. HE HAS AN NG TUBE IN PLACE TO LOW INTERMITTENT SUCTION. MODERATE ABOUT OF BILE NOTED IN CANISTER. HE IS ALSO NOTED WITH COMPLAINTS OF A DRY THROAT AND REQUESTS ICE. VITALS THIS AM ARE 97.4- 59-18-98%-151/86. CBC WNL EXCEPT WBC 14.5. CMP WNL EXCEPT SODIUM 152, POTASSIUM 2.7, GLUCOSE 196, CALCIUM 8.4, ALKALINE PHOSPHATASE 133, TOTAL PROTEIN 8.3. WE PLAN TO PULL PATIENT'S NG TUBE THIS AM. WE WILL RECHECK LABS AND FOLLOW UP WITH PATIENT IN AM. - Past Medical Family Social History Past Med/Fam/Surg Hx: No changes since H&P Allergies: Allergies codeine Allergy (Verified 01/26/17 23:47) morphine Allergy (Verified 01/26/17 23:47) - Review of Systems ROS: No change since H&P - Vital Signs and I&O's Vital Signs: Temperature 97.9 F Pulse Rate [Left Brachial] 98 Pulse Rate 115 Respiratory Rate 18 Blood Pressure [Right Arm] 187/101 Blood Pressure [Left Arm] 196/103 Blood Pressure [Left Radial 160/102 Artery] Blood Pressure 176/96 O2 Sat by Pulse Oximetry 98 Intake and Output: Intake & Output 01/27/17 01/28/17 01/29/17 01/30/17 11:59 11:59 11:59 11:59 Intake Total 600 3070 2762 1000 Output Total 500 5750 300 625 Balance 100 -2680 2462 375 - Physical Exam Oriented: Normal. negative: Time, Person, Place, Not Oriented, Unable to test, Other Eyes: Normal. negative: Blurred Vision, Diplopia, Discharge, Pain, Redness, Photophobia, Other Ear: Normal. negative: Right, Left, Swelling, Ecchymosis, Hemotypanum, Abrasion , Laceration Nose: Normal. negative: Injected, Discharge, Blood, Other Throat: Normal. negative: Tonsillar Hypertrophy, Red, Exudate, Dry, Other Respiratory: Normal Cardiovascular: Normal. negative: Tachycardia, Bradycardia, Irregular, S3, S4, Systolic, Diastolic, Murmur, Edema, Other : Normal. negative: Dysuria, Hematuria, Frequency, Discharge, Testicular Pain , Bleeding, , Other Auscultation: Bowel Sounds: Normal. negative: Bruit, Absent, Increased, Decreased, High Pitched, Other Palpation: Normal Tenderness: Diffuse, Moderate. negative: Normal, RUQ, RLQ, LUQ, LLQ, Epigastric , Periumbilical, Suprapubic, Mild, Severe, Rebound, Guarding, Rigidity, Other Skin: Normal. negative: Decreased Turgur, Rash, Papular, Macular, Maculopapular , Vesicular, Pustular, Petechial, Red, Tender, Hot, Diaphoresis, Wound, Bruising , Ecchymosis, Other Musculoskeletal: Normal. negative: Right, Left, Shoulder, Clavicle, Arm, Elbow , Forearm, Wrist, Hand, Hip, Thigh, Knee, Leg, Ankle, Foot, Back:Thoracic, Back: Lumbar, Back:Midline, Back:Paraspinous, Pelvis, Swelling, Tender, Deformity, Pulse Deficit, Motor Deficit, Sensory Deficit, Instability, Crepitance Psychiatric: Normal. negative: Anxiety, Depression, Agitation, Other Mood Description: Calm. negative: Angry, Apathetic, Depressed, Fearful, Flat, Happy, Hostile, Sad, Suspicious, Withdrawn, Anxious, Appropriate, Labile Affect: Normal. negative: Angry, Anxious, Depressed, Flat, Hysterical, Quiet, Violent Speech Pattern: Clear, Appropriate - Laboratory and Diagnostics Result Diagrams: 01/29/17 06:00 01/29/17 13:10 Labs: Laboratory WBC 7.7 X10^3/uL (3.6-10.0) 01/29/17 06:00 RBC 4.85 X10^6/uL (4.7-6.0) 01/29/17 06:00 Hgb 12.4 g/dL (13.5-18.0) L 01/29/17 06:00 Hct 37.9 % (42.0-54.0) L 01/29/17 06:00 MCV 78.0 fL (80.0-100.0) L 01/29/17 06:00 MCH 25.5 pg (27.0-34.0) L 01/29/17 06:00 MCHC 32.7 g/dL (33.0-35.0) L 01/29/17 06:00 RDW 14.3 % (11.6-16.5) 01/29/17 06:00 Plt Count 273 X10^3/uL (150.0-450.0) 01/29/17 06:00 Plt Count Comment Adequate (ADEQUATE) 01/29/17 06:00 MPV 9.2 fL (7.4-11.0) 01/29/17 06:00 Neut % 75.7 % (42.0-75.0) H 01/29/17 06:00 Lymph % 16.3 % (21.0-51.0) L 01/29/17 06:00 Glynn % 7.0 % (0.0-13.0) 01/29/17 06:00 Eos % 0.1 % (0.9-2.9) L 01/29/17 06:00 Baso % 0.9 % (0.2-1.0) 01/29/17 06:00 Neut # 5.9 x10^3/uL (2.2-4.8) H 01/29/17 06:00 Lymph # 1.3 X10^3/uL (1.3-2.9) 01/29/17 06:00 Glynn # 0.5 x10^3/uL (0.3-0.8) 01/29/17 06:00 Eos # 0.0 x10^3/uL (0.0-0.2) 01/29/17 06:00 Baso # 0.1 X10^3/uL (0.0-0.1) 01/29/17 06:00 Absolute Nucleated RBC 0.1 /100WBC 01/29/17 06:00 Total Counted 100 01/27/17 04:50 Neutrophils % (Manual) 89 % (39-76) H 01/27/17 04:50 Band Neutrophils % 2 % (0-10) 01/27/17 04:50 Lymphocytes % (Manual) 9 % (13-43) L 01/27/17 04:50 Plt Morphology Comment Normal (NORMAL) 01/29/17 06:00 RBC Morphology Abnormal (NORMAL) 01/29/17 06:00 Hypochromasia Slight A 01/29/17 06:00 Sodium 142 mmol/L (136-145) 01/29/17 06:00 Corrected Sodium 144 mmol/L (136-145) 01/29/17 06:00 Potassium 3.5 mmol/L (3.5-5.1) 01/29/17 13:10 Chloride 102 mmol/L (98-107) 01/29/17 06:00 Carbon Dioxide 25.1 mmol/L (21-32) 01/29/17 06:00 BUN 13 mg/dL (7-18) 01/29/17 06:00 Creatinine 0.83 mg/dL (0.70-1.30) 01/29/17 06:00 Est GFR (MDRD) Af Amer > 60 (>60) 01/29/17 06:00 Est GFR (MDRD) Non-Af > 60 (>60) 01/29/17 06:00 Glucose 195 mg/dL (65-99) H 01/29/17 06:00 Hemoglobin A1c 12.5 % (4.5-6.2) H 01/26/17 22:57 Calcium 7.5 mg/dL (8.5-10.1) L 01/29/17 06:00 Corrected Calcium 8.1 mg/dL (8.5-10.1) L 01/29/17 06:00 Magnesium 1.8 mg/dL (1.7-2.9) 01/29/17 06:00 Total Bilirubin 0.80 mg/dL (0.2-1.0) 01/29/17 06:00 AST 32 Units/L (15-37) 01/29/17 06:00 ALT 27 Units/L (12-78) 01/29/17 06:00 Alkaline Phosphatase 121 Units/L (46-116) H 01/29/17 06:00 C-Reactive Protein 10.10 mg/L (0-3.0) H 01/26/17 22:57 Total Protein 7.3 g/dL (6.4-8.2) 01/29/17 06:00 Albumin 3.2 g/dL (3.4-5.0) L 01/29/17 06:00 Globulin 4.1 g/dL (2.5-4.5) 01/29/17 06:00 Albumin/Globulin Ratio 0.8 Ratio (1.1-2.1) L 01/29/17 06:00 Amylase 141 Units/L (25-115) H 01/26/17 22:57 Lipase 55 Units/L (73-393) L 01/26/17 22:57 Urine Acetone Large (NEGATIVE) 01/29/17 14:53 Acetone, Semi-Quant Small (NEGATIVE) H 01/26/17 22:57 - Plan (1) DM gastroparesis Status: Acute Plan: REGLAN 10MG IVP Q6H PRN, NG TUBE, CONTINUE TO MONITOR (2) Diabetes mellitus type 1 Status: Chronic Qualifiers: Diabetes mellitus complication status: with other specified complication Plan: SLIDING SCALE INSULIN, CONTINUE TOUJEO 50UNITS AT HS, CHECK OTBS, CONTINUE TO MONITOR
--- NOTE | 2017-01-29 18:28 | PCM.PROG ---
Progress Note - Progress Note for Day of Date: 01/29/17 - Subjective Subjective: IS ALERT AND ORIENTED, LYING IN BED ON MORNING ROUNDS. HE CONTINUES WITH COMPLAINTS OF ABDOMINAL PAIN, BUT DENIES NAUSEA OR VOMITING. OVERALL, HE REPORTS FEELING BETTER THAN HE HAS THE PAST TWO DAYS. VITALS THIS AM ARE 97.6-99-20-99%-118/70. CBC WNL EXCEPT HGB 12.4, HCT 37.9. CMP WNL EXCEPT POTASSIUM 3.1, GLUCOSE 195, CALCIUM 7.5, ALKALINE PHOSPHATASE 121, ALBUMIN 3.2. WE WILL CONTIUE WITH CURRENT PLAN OF CARE AND HYDRATING PATIENT. WE WILL CHECK URINE ACETONES TODAY AND IN AM. WE PLAN TO RECHECK AM LABS AND FOLLOW UP WITH PATIENT. - Past Medical Family Social History Past Med/Fam/Surg Hx: No changes since H&P Allergies: Allergies codeine Allergy (Verified 01/26/17 23:47) morphine Allergy (Verified 01/26/17 23:47) - Review of Systems ROS: No change since H&P - Vital Signs and I&O's Vital Signs: Temperature 97.9 F Pulse Rate [Left Brachial] 98 Pulse Rate 115 Respiratory Rate 18 Blood Pressure [Right Arm] 187/101 Blood Pressure [Left Arm] 196/103 Blood Pressure [Left Radial 160/102 Artery] Blood Pressure 176/96 O2 Sat by Pulse Oximetry 98 Intake and Output: Intake & Output 01/27/17 01/28/17 01/29/17 01/30/17 11:59 11:59 11:59 11:59 Intake Total 600 3070 2762 1000 Output Total 500 5750 300 625 Balance 100 -2680 2462 375 - Physical Exam Oriented: Normal. negative: Time, Person, Place, Not Oriented, Unable to test, Other Eyes: Normal. negative: Blurred Vision, Diplopia, Discharge, Pain, Redness, Photophobia, Other Ear: Normal. negative: Right, Left, Swelling, Ecchymosis, Hemotypanum, Abrasion , Laceration Nose: Normal. negative: Injected, Discharge, Blood, Other Throat: Normal. negative: Tonsillar Hypertrophy, Red, Exudate, Dry, Other Respiratory: Normal Cardiovascular: Normal. negative: Tachycardia, Bradycardia, Irregular, S3, S4, Systolic, Diastolic, Murmur, Edema, Other : Normal. negative: Dysuria, Hematuria, Frequency, Discharge, Testicular Pain , Bleeding, , Other Auscultation: Bowel Sounds: Normal. negative: Bruit, Absent, Increased, Decreased, High Pitched, Other Palpation: Normal Tenderness: Diffuse, Moderate. negative: Normal, RUQ, RLQ, LUQ, LLQ, Epigastric , Periumbilical, Suprapubic, Mild, Severe, Rebound, Guarding, Rigidity, Other Skin: Normal. negative: Decreased Turgur, Rash, Papular, Macular, Maculopapular , Vesicular, Pustular, Petechial, Red, Tender, Hot, Diaphoresis, Wound, Bruising , Ecchymosis, Other Musculoskeletal: Normal. negative: Right, Left, Shoulder, Clavicle, Arm, Elbow , Forearm, Wrist, Hand, Hip, Thigh, Knee, Leg, Ankle, Foot, Back:Thoracic, Back: Lumbar, Back:Midline, Back:Paraspinous, Pelvis, Swelling, Tender, Deformity, Pulse Deficit, Motor Deficit, Sensory Deficit, Instability, Crepitance Psychiatric: Normal. negative: Anxiety, Depression, Agitation, Other Mood Description: Calm. negative: Angry, Apathetic, Depressed, Fearful, Flat, Happy, Hostile, Sad, Suspicious, Withdrawn, Anxious, Appropriate, Labile Affect: Normal. negative: Angry, Anxious, Depressed, Flat, Hysterical, Quiet, Violent Speech Pattern: Clear, Appropriate - Laboratory and Diagnostics Result Diagrams: 01/29/17 06:00 01/29/17 13:10 Labs: Laboratory WBC 7.7 X10^3/uL (3.6-10.0) 01/29/17 06:00 RBC 4.85 X10^6/uL (4.7-6.0) 01/29/17 06:00 Hgb 12.4 g/dL (13.5-18.0) L 01/29/17 06:00 Hct 37.9 % (42.0-54.0) L 01/29/17 06:00 MCV 78.0 fL (80.0-100.0) L 01/29/17 06:00 MCH 25.5 pg (27.0-34.0) L 01/29/17 06:00 MCHC 32.7 g/dL (33.0-35.0) L 01/29/17 06:00 RDW 14.3 % (11.6-16.5) 01/29/17 06:00 Plt Count 273 X10^3/uL (150.0-450.0) 01/29/17 06:00 Plt Count Comment Adequate (ADEQUATE) 01/29/17 06:00 MPV 9.2 fL (7.4-11.0) 01/29/17 06:00 Neut % 75.7 % (42.0-75.0) H 01/29/17 06:00 Lymph % 16.3 % (21.0-51.0) L 01/29/17 06:00 Walsh % 7.0 % (0.0-13.0) 01/29/17 06:00 Eos % 0.1 % (0.9-2.9) L 01/29/17 06:00 Baso % 0.9 % (0.2-1.0) 01/29/17 06:00 Neut # 5.9 x10^3/uL (2.2-4.8) H 01/29/17 06:00 Lymph # 1.3 X10^3/uL (1.3-2.9) 01/29/17 06:00 Walsh # 0.5 x10^3/uL (0.3-0.8) 01/29/17 06:00 Eos # 0.0 x10^3/uL (0.0-0.2) 01/29/17 06:00 Baso # 0.1 X10^3/uL (0.0-0.1) 01/29/17 06:00 Absolute Nucleated RBC 0.1 /100WBC 01/29/17 06:00 Total Counted 100 01/27/17 04:50 Neutrophils % (Manual) 89 % (39-76) H 01/27/17 04:50 Band Neutrophils % 2 % (0-10) 01/27/17 04:50 Lymphocytes % (Manual) 9 % (13-43) L 01/27/17 04:50 Plt Morphology Comment Normal (NORMAL) 01/29/17 06:00 RBC Morphology Abnormal (NORMAL) 01/29/17 06:00 Hypochromasia Slight A 01/29/17 06:00 Sodium 142 mmol/L (136-145) 01/29/17 06:00 Corrected Sodium 144 mmol/L (136-145) 01/29/17 06:00 Potassium 3.5 mmol/L (3.5-5.1) 01/29/17 13:10 Chloride 102 mmol/L (98-107) 01/29/17 06:00 Carbon Dioxide 25.1 mmol/L (21-32) 01/29/17 06:00 BUN 13 mg/dL (7-18) 01/29/17 06:00 Creatinine 0.83 mg/dL (0.70-1.30) 01/29/17 06:00 Est GFR (MDRD) Af Amer > 60 (>60) 01/29/17 06:00 Est GFR (MDRD) Non-Af > 60 (>60) 01/29/17 06:00 Glucose 195 mg/dL (65-99) H 01/29/17 06:00 Hemoglobin A1c 12.5 % (4.5-6.2) H 01/26/17 22:57 Calcium 7.5 mg/dL (8.5-10.1) L 01/29/17 06:00 Corrected Calcium 8.1 mg/dL (8.5-10.1) L 01/29/17 06:00 Magnesium 1.8 mg/dL (1.7-2.9) 01/29/17 06:00 Total Bilirubin 0.80 mg/dL (0.2-1.0) 01/29/17 06:00 AST 32 Units/L (15-37) 01/29/17 06:00 ALT 27 Units/L (12-78) 01/29/17 06:00 Alkaline Phosphatase 121 Units/L (46-116) H 01/29/17 06:00 C-Reactive Protein 10.10 mg/L (0-3.0) H 01/26/17 22:57 Total Protein 7.3 g/dL (6.4-8.2) 01/29/17 06:00 Albumin 3.2 g/dL (3.4-5.0) L 01/29/17 06:00 Globulin 4.1 g/dL (2.5-4.5) 01/29/17 06:00 Albumin/Globulin Ratio 0.8 Ratio (1.1-2.1) L 01/29/17 06:00 Amylase 141 Units/L (25-115) H 01/26/17 22:57 Lipase 55 Units/L (73-393) L 01/26/17 22:57 Urine Acetone Large (NEGATIVE) 01/29/17 14:53 Acetone, Semi-Quant Small (NEGATIVE) H 01/26/17 22:57 - Plan (1) DM gastroparesis Status: Acute Plan: REGLAN 10MG IVP Q6H PRN, CONTINUE TO MONITOR (2) Diabetes mellitus type 1 Status: Chronic Qualifiers: Diabetes mellitus complication status: with other specified complication Plan: SLIDING SCALE INSULIN, CONTINUE TOUJEO 50UNITS AT HS, CHECK OTBS, CONTINUE TO MONITOR (3) GERD (gastroesophageal reflux disease) Status: Chronic Qualifiers: Esophagitis presence: esophagitis presence not specified Qualified Code(s) : K21.9 - Gastro-esophageal reflux disease without esophagitis Plan: CONTINUE PROTONIX BID, CONTINUE PEPCIDMG HS, CONTINUE TO MONITOR (4) Hypertension Status: Chronic Qualifiers: Hypertension type: unspecified secondary hypertension Qualified Code(s): I15.9 - Secondary hypertension, unspecified Plan: CONTINUE CATAPRES PATCH, CONTINUE VASOTEC, CONTINUE COZAAR, CONTINUE TO MONITOR
[2017-01-29] MEDS: PEPCID TAB 20 MG PO SCH (20:51)
[2017-01-29] MEDS: TOUJEO SOLOSTAR PEN SC SCH (21:13)
[2017-01-30] MEDS: NS 1000 ML 1,000 ML IV SCH (02:09)
[2017-01-30] MEDS: DEMEROL INJ IVP PRN ×2 (03:09→22:30)
[2017-01-30 06:05] LABS: BASOPHILS # (AUTO) 0.1 X10^3/uL (0.0-0.1); BASOPHILS % (AUTO) 1.3 % (0.2-1.0); EOSINOPHILS % (AUTO) 0.1 % (0.9-2.9); LYMPHOCYTES # (AUTO) 1.4 X10^3/uL (1.3-2.9); LYMPHOCYTES % (AUTO) 20.3 % (21.0-51.0); MEAN CORPUSCULAR HEMOGLOBIN 25.9 pg (27.0-34.0); MEAN CORPUSCULAR HGB CONC 33.4 g/dL (33.0-35.0); MEAN CORPUSCULAR VOLUME 77.7 fL (80.0-100.0); MEAN PLATELET VOLUME 9.5 fL (7.4-11.0); MONOCYTES # (AUTO) 0.6 x10^3/uL (0.3-0.8); MONOCYTES % (AUTO) 8.1 % (0.0-13.0); NEUTROPHILS # (AUTO) 4.9 x10^3/uL (2.2-4.8); NEUTROPHILS % (AUTO) 70.2 % (42.0-75.0); PLATELET COUNT 269 X10^3/uL (150.0-450.0); RED BLOOD COUNT 5.41 X10^6/uL (4.7-6.0); RED CELL DISTRIBUTION WIDTH 14.1 % (11.6-16.5)
[2017-01-30] MEDS: HumuLIN R SUBCUT PRN ×4 (06:22→21:25)
[2017-01-30] MEDS: REGLAN INJ 10 MG VIAL IVP PRN (06:29)
[2017-01-30 06:36] LABS: ALANINE AMINOTRANSFERASE 33 Units/L (12-78); ALBUMIN 3.6 g/dL (3.4-5.0); ALKALINE PHOSPHATASE 139 Units/L (46-116); ASPARTATE AMINO TRANSFERASE 31 Units/L (15-37); BLOOD UREA NITROGEN 13 mg/dL (7-18); CALCIUM 7.8 mg/dL (8.5-10.1); CARBON DIOXIDE 20.3 mmol/L (21-32); CHLORIDE 101 mmol/L (98-107); COR NA(FOR HYPERGLY) 142 mmol/L (136-145); CREATININE 0.91 mg/dL (0.70-1.30); GLUCOSE 192 mg/dL (65-99); SODIUM 140 mmol/L (136-145); TOTAL PROTEIN 8.2 g/dL (6.4-8.2); eGFR BLACK RACES > 60 (>60); eGFR NON BLACK RACES > 60 (>60)
[2017-01-30 06:42] LABS: PLATELET MORPHOLOGY COMMENT NORMAL (NORMAL)
[2017-01-30] MEDS: NORCO 10/325 TAB PO SCH ×2 (08:37→21:26)
[2017-01-30] MEDS: PROTONIX TAB 40 MG PO SCH ×2 (08:37→21:27)
[2017-01-30] MEDS: COZAAR PO SCH (08:37)
[2017-01-30] MEDS: K-DUR TAB 20 MEQ PO PRN ×2 (08:38→21:26)
[2017-01-30 10:20] LABS: ABG ALLEN TEST POS; ABG BASE EXCESS -2.3 mmol/L (-2.0-2.0); ABG HCO3 22.5 mmol/L (22-26)
[2017-01-30] MEDS: NS 1000 ML 1,000 ML with SODIUM BICARBONATE 8.4% INJ ADULT 100 ML IV SCH ×4 (11:20→17:22)
--- NOTE | 2017-01-30 12:43 | PCM.PROG ---
Progress Note - Progress Note for Day of Date: 01/30/17 - Subjective Subjective: IS ALERT AND ORIENTED, LYING IN BED ON MORNING ROUNDS. HE REPORTS NAUSEA AND MILD ABDOMINAL PAIN THIS MORNING. VITALS THIS AM ARE 98.4- 852-61-67-148/89. CBC WNL. CMP WNL EXCEPT POTASSIUM 3.2, CARBON DIOXIDE 20.3, GLUCOSE 192, CALCIUM 7.8, ALKALINE PHOSPHATASE 139. LARGE AMOUNT OF ACETONES IN URINE. ABG WNL. WE WILL ADD 2 AMPS OF BICARB IN EACH LITER OF FLUIDS. AND INCREASE TOUJEO TO 45 UNITS AT HS. WE WILL ADVANCE DIET TO DIABETIC FULL LIQUID. WE PLAN TO RECHECK LABS AND FOLLOW UP WITH PATIENT IN AM. - Past Medical Family Social History Past Med/Fam/Surg Hx: No changes since H&P Allergies: Allergies codeine Allergy (Verified 01/26/17 23:47) morphine Allergy (Verified 01/26/17 23:47) - Review of Systems ROS: No change since H&P - Vital Signs and I&O's Vital Signs: Temperature 97.8 F Pulse Rate [Left Brachial] 91 Pulse Rate 115 Respiratory Rate 18 Blood Pressure [Right Arm] 187/101 Blood Pressure [Left Arm] 158/89 Blood Pressure [Left Radial 160/102 Artery] Blood Pressure 176/96 O2 Sat by Pulse Oximetry 99 Intake and Output: Intake & Output 01/28/17 01/29/17 01/30/17 01/31/17 11:59 11:59 11:59 11:59 Intake Total 3070 2762 2038 Output Total 5750 300 625 Balance -2680 2462 1413 - Physical Exam Oriented: Normal. negative: Time, Person, Place, Not Oriented, Unable to test, Other Eyes: Normal. negative: Blurred Vision, Diplopia, Discharge, Pain, Redness, Photophobia, Other Ear: Normal. negative: Right, Left, Swelling, Ecchymosis, Hemotypanum, Abrasion , Laceration Nose: Normal. negative: Injected, Discharge, Blood, Other Throat: Normal. negative: Tonsillar Hypertrophy, Red, Exudate, Dry, Other Respiratory: Normal Cardiovascular: Normal. negative: Tachycardia, Bradycardia, Irregular, S3, S4, Systolic, Diastolic, Murmur, Edema, Other : Normal. negative: Dysuria, Hematuria, Frequency, Discharge, Testicular Pain , Bleeding, , Other Auscultation: Bowel Sounds: Normal. negative: Bruit, Absent, Increased, Decreased, High Pitched, Other Palpation: Normal Tenderness: Diffuse, Moderate. negative: Normal, RUQ, RLQ, LUQ, LLQ, Epigastric , Periumbilical, Suprapubic, Mild, Severe, Rebound, Guarding, Rigidity, Other Skin: Normal. negative: Decreased Turgur, Rash, Papular, Macular, Maculopapular , Vesicular, Pustular, Petechial, Red, Tender, Hot, Diaphoresis, Wound, Bruising , Ecchymosis, Other Musculoskeletal: Normal. negative: Right, Left, Shoulder, Clavicle, Arm, Elbow , Forearm, Wrist, Hand, Hip, Thigh, Knee, Leg, Ankle, Foot, Back:Thoracic, Back: Lumbar, Back:Midline, Back:Paraspinous, Pelvis, Swelling, Tender, Deformity, Pulse Deficit, Motor Deficit, Sensory Deficit, Instability, Crepitance Psychiatric: Normal. negative: Anxiety, Depression, Agitation, Other Mood Description: Calm. negative: Angry, Apathetic, Depressed, Fearful, Flat, Happy, Hostile, Sad, Suspicious, Withdrawn, Anxious, Appropriate, Labile Affect: Normal. negative: Angry, Anxious, Depressed, Flat, Hysterical, Quiet, Violent Speech Pattern: Clear, Appropriate - Laboratory and Diagnostics Result Diagrams: 01/30/17 05:35 01/30/17 11:05 Labs: Laboratory WBC 7.0 X10^3/uL (3.6-10.0) 01/30/17 05:35 RBC 5.41 X10^6/uL (4.7-6.0) 01/30/17 05:35 Hgb 14.0 g/dL (13.5-18.0) 01/30/17 05:35 Hct 42.0 % (42.0-54.0) 01/30/17 05:35 MCV 77.7 fL (80.0-100.0) L 01/30/17 05:35 MCH 25.9 pg (27.0-34.0) L 01/30/17 05:35 MCHC 33.4 g/dL (33.0-35.0) 01/30/17 05:35 RDW 14.1 % (11.6-16.5) 01/30/17 05:35 Plt Count 269 X10^3/uL (150.0-450.0) 01/30/17 05:35 Plt Count Comment Adequate (ADEQUATE) 01/30/17 05:35 MPV 9.5 fL (7.4-11.0) 01/30/17 05:35 Neut % 70.2 % (42.0-75.0) 01/30/17 05:35 Lymph % 20.3 % (21.0-51.0) L 01/30/17 05:35 [place] % 8.1 % (0.0-13.0) 01/30/17 05:35 Eos % 0.1 % (0.9-2.9) L 01/30/17 05:35 Baso % 1.3 % (0.2-1.0) H 01/30/17 05:35 Neut # 4.9 x10^3/uL (2.2-4.8) H 01/30/17 05:35 Lymph # 1.4 X10^3/uL (1.3-2.9) 01/30/17 05:35 [place] # 0.6 x10^3/uL (0.3-0.8) 01/30/17 05:35 Eos # 0.0 x10^3/uL (0.0-0.2) 01/30/17 05:35 Baso # 0.1 X10^3/uL (0.0-0.1) 01/30/17 05:35 Absolute Nucleated RBC 0.1 /100WBC 01/30/17 05:35 Total Counted 100 01/27/17 04:50 Neutrophils % (Manual) 89 % (39-76) H 01/27/17 04:50 Band Neutrophils % 2 % (0-10) 01/27/17 04:50 Lymphocytes % (Manual) 9 % (13-43) L 01/27/17 04:50 Plt Morphology Comment Normal (NORMAL) 01/30/17 05:35 RBC Morphology Normal (NORMAL) 01/30/17 05:35 Hypochromasia Slight A 01/29/17 06:00 Sample Site Rrad 01/30/17 10:06 ABG pH 7.380 (7.35-7.45) 01/30/17 10:06 ABG pCO2 38.0 mmHg (35.0-45.0) 01/30/17 10:06 ABG pO2 94.0 mmHg (80.0-100.0) 01/30/17 10:06 ABG HCO3 22.5 mmol/L (22-26) 01/30/17 10:06 ABG O2 Saturation 97.0 % (90-100) 01/30/17 10:06 ABG Base Excess -2.3 mmol/L (-2.0-2.0) L 01/30/17 10:06 Wang Test Pos 01/30/17 10:06 A-a Gradient 8.0 mmHg 01/30/17 10:06 FiO2 21.000 01/30/17 10:06 Blood Gas Comments Ah isabel well 01/30/17 10:06 Sodium 140 mmol/L (136-145) 01/30/17 05:35 Corrected Sodium 142 mmol/L (136-145) 01/30/17 05:35 Potassium 3.7 mmol/L (3.5-5.1) 01/30/17 11:05 Chloride 101 mmol/L (98-107) 01/30/17 05:35 Carbon Dioxide 20.3 mmol/L (21-32) L 01/30/17 05:35 BUN 13 mg/dL (7-18) 01/30/17 05:35 Creatinine 0.91 mg/dL (0.70-1.30) 01/30/17 05:35 Est GFR (MDRD) Af Amer > 60 (>60) 01/30/17 05:35 Est GFR (MDRD) Non-Af > 60 (>60) 01/30/17 05:35 Glucose 192 mg/dL (65-99) H 01/30/17 05:35 Hemoglobin A1c 12.5 % (4.5-6.2) H 01/26/17 22:57 Calcium 7.8 mg/dL (8.5-10.1) L 01/30/17 05:35 Corrected Calcium TNP 01/30/17 05:35 Magnesium 1.8 mg/dL (1.7-2.9) 01/29/17 06:00 Total Bilirubin 1.00 mg/dL (0.2-1.0) 01/30/17 05:35 AST 31 Units/L (15-37) 01/30/17 05:35 ALT 33 Units/L (12-78) 01/30/17 05:35 Alkaline Phosphatase 139 Units/L (46-116) H 01/30/17 05:35 C-Reactive Protein 10.10 mg/L (0-3.0) H 01/26/17 22:57 Total Protein 8.2 g/dL (6.4-8.2) 01/30/17 05:35 Albumin 3.6 g/dL (3.4-5.0) 01/30/17 05:35 Globulin 4.6 g/dL (2.5-4.5) H 01/30/17 05:35 Albumin/Globulin Ratio 0.8 Ratio (1.1-2.1) L 01/30/17 05:35 Amylase 141 Units/L (25-115) H 01/26/17 22:57 Lipase 55 Units/L (73-393) L 01/26/17 22:57 Urine Acetone Large (NEGATIVE) 01/30/17 09:06 Acetone, Semi-Quant Small (NEGATIVE) H 01/26/17 22:57 - Plan (1) DM gastroparesis Status: Acute Plan: REGLAN 10MG IVP Q6H PRN, CONTINUE TO MONITOR (2) Diabetes mellitus type 1 Status: Chronic Qualifiers: Diabetes mellitus complication status: with other specified complication Plan: SLIDING SCALE INSULIN, CONTINUE TOUJEO 45 UNITS AT HS, CHECK OTBS, CONTINUE TO MONITOR (3) GERD (gastroesophageal reflux disease) Status: Chronic Qualifiers: Esophagitis presence: esophagitis presence not specified Qualified Code(s) : K21.9 - Gastro-esophageal reflux disease without esophagitis Plan: CONTINUE PROTONIX BID, CONTINUE PEPCIDMG HS, CONTINUE TO MONITOR (4) Hypertension Status: Chronic Qualifiers: Hypertension type: unspecified secondary hypertension Qualified Code(s): I15.9 - Secondary hypertension, unspecified Plan: CONTINUE CATAPRES PATCH, CONTINUE VASOTEC, CONTINUE COZAAR, CONTINUE TO MONITOR
[2017-01-30] MEDS ORDERED: NS 1000 ML 1,000 ML ONE (17:08)
[2017-01-30] MEDS: PEPCID TAB 20 MG PO SCH (21:26)
[2017-01-30] MEDS: TOUJEO SOLOSTAR PEN SC SCH (21:27)
[2017-01-31] MEDS: NS 1000 ML 1,000 ML with SODIUM BICARBONATE 8.4% INJ ADULT 100 ML IV SCH ×8 (04:00→23:21)
[2017-01-31 05:52] LABS: BASOPHILS % (AUTO) 0.8 % (0.2-1.0); EOSINOPHILS % (AUTO) 0.7 % (0.9-2.9); HEMATOCRIT 35.5 % (42.0-54.0); HEMOGLOBIN 11.8 g/dL (13.5-18.0); LYMPHOCYTES # (AUTO) 1.7 X10^3/uL (1.3-2.9); LYMPHOCYTES % (AUTO) 37.8 % (21.0-51.0); MEAN CORPUSCULAR HEMOGLOBIN 25.3 pg (27.0-34.0); MEAN CORPUSCULAR HGB CONC 33.3 g/dL (33.0-35.0); MEAN CORPUSCULAR VOLUME 76.1 fL (80.0-100.0); MONOCYTES # (AUTO) 0.5 x10^3/uL (0.3-0.8); MONOCYTES % (AUTO) 11.8 % (0.0-13.0); NEUTROPHILS # (AUTO) 2.2 x10^3/uL (2.2-4.8); NEUTROPHILS % (AUTO) 48.9 % (42.0-75.0); PLATELET COUNT 258 X10^3/uL (150.0-450.0); RED BLOOD COUNT 4.67 X10^6/uL (4.7-6.0); RED CELL DISTRIBUTION WIDTH 14.1 % (11.6-16.5); WHITE BLOOD COUNT 4.5 X10^3/uL (3.6-10.0)
[2017-01-31 06:02] LABS: ALANINE AMINOTRANSFERASE 36 Units/L (12-78); ALBUMIN 2.8 g/dL (3.4-5.0); ALKALINE PHOSPHATASE 115 Units/L (46-116); ASPARTATE AMINO TRANSFERASE 43 Units/L (15-37); BLOOD UREA NITROGEN 10 mg/dL (7-18); CALCIUM 7.4 mg/dL (8.5-10.1); CARBON DIOXIDE 35.2 mmol/L (21-32); CHLORIDE 103 mmol/L (98-107); COR CA(FOR HYPOALB) 8.4 mg/dL (8.5-10.1); COR NA(FOR HYPERGLY) 145 mmol/L (136-145); GLUCOSE 224 mg/dL (65-99); SODIUM 142 mmol/L (136-145); TOTAL PROTEIN 6.6 g/dL (6.4-8.2); eGFR BLACK RACES > 60 (>60); eGFR NON BLACK RACES > 60 (>60)
[2017-01-31] MEDS: HumuLIN R SUBCUT PRN ×4 (06:17→21:40)
[2017-01-31] MEDS: K-DUR TAB 20 MEQ PO PRN (06:20)
[2017-01-31 06:43] LABS: HYPOCHROMASIA SLIGHT; PLATELET MORPHOLOGY COMMENT NORMAL (NORMAL)
[2017-01-31] MEDS: NORCO 10/325 TAB PO SCH ×2 (08:55→21:43)
[2017-01-31] MEDS: COZAAR PO SCH (08:56)
[2017-01-31] MEDS: PROTONIX TAB 40 MG PO SCH ×2 (08:56→21:44)
--- NOTE | 2017-01-31 10:26 | PCM.PROG ---
Progress Note - Progress Note for Day of Date: 01/31/17 - Subjective Subjective: IS ALERT AND ORIENTED, SITTING UP IN BED ON MORNING ROUNDS. HE DENIES PAIN OR NAUSEA/VOMITING THIS AM AND REPORTS FEELING MUCH BETTER. VITALS THIS AM ARE 98.0-81-20-98%-119/64. CBC WNL EXCEPT RBC 4.67, HGB 11.8, HCT 35.5. CMP WNL EXCEPT POTASSIUM 3.0, CARBON DIOXIDE 35.2, GLUCOSE 224, CALCIUM 7.4, AST 43, ALBUMIN 2.8. MODERATE AMOUNT OF ACETONES IN URINE. WE WILL CONTINUE TO HYDRATED FOR ANOTHER DAY. WE WILL RECHECK LABS AND URINE ACETONES IN AM AND PLAN TO DISCHARGE IF STABLE. - Past Medical Family Social History Past Med/Fam/Surg Hx: No changes since H&P Allergies: Allergies codeine Allergy (Verified 01/26/17 23:47) morphine Allergy (Verified 01/26/17 23:47) - Review of Systems ROS: No change since H&P - Vital Signs and I&O's Vital Signs: Temperature 98 F Pulse Rate [Left Brachial] 81 Pulse Rate 115 Respiratory Rate 20 Blood Pressure [Right Arm] 170/89 Blood Pressure [Left Arm] 119/64 Blood Pressure [Left Radial 160/102 Artery] Blood Pressure 176/96 O2 Sat by Pulse Oximetry 98 Intake and Output: Intake & Output 01/28/17 01/29/17 01/30/17 01/31/17 11:59 11:59 11:59 11:59 Intake Total 3070 2762 2038 2520 Output Total 5750 300 625 600 Balance -2680 2462 1413 1920 - Physical Exam Oriented: Normal. negative: Time, Person, Place, Not Oriented, Unable to test, Other Eyes: Normal. negative: Blurred Vision, Diplopia, Discharge, Pain, Redness, Photophobia, Other Ear: Normal. negative: Right, Left, Swelling, Ecchymosis, Hemotypanum, Abrasion , Laceration Nose: Normal. negative: Injected, Discharge, Blood, Other Throat: Normal. negative: Tonsillar Hypertrophy, Red, Exudate, Dry, Other Respiratory: Normal Cardiovascular: Normal. negative: Tachycardia, Bradycardia, Irregular, S3, S4, Systolic, Diastolic, Murmur, Edema, Other : Normal. negative: Dysuria, Hematuria, Frequency, Discharge, Testicular Pain , Bleeding, , Other Auscultation: Bowel Sounds: Normal. negative: Bruit, Absent, Increased, Decreased, High Pitched, Other Tenderness: Diffuse, Moderate. negative: Normal, RUQ, RLQ, LUQ, LLQ, Epigastric , Periumbilical, Suprapubic, Mild, Severe, Rebound, Guarding, Rigidity, Other Skin: Normal. negative: Decreased Turgur, Rash, Papular, Macular, Maculopapular , Vesicular, Pustular, Petechial, Red, Tender, Hot, Diaphoresis, Wound, Bruising , Ecchymosis, Other Musculoskeletal: Normal. negative: Right, Left, Shoulder, Clavicle, Arm, Elbow , Forearm, Wrist, Hand, Hip, Thigh, Knee, Leg, Ankle, Foot, Back:Thoracic, Back: Lumbar, Back:Midline, Back:Paraspinous, Pelvis, Swelling, Tender, Deformity, Pulse Deficit, Motor Deficit, Sensory Deficit, Instability, Crepitance Psychiatric: Normal. negative: Anxiety, Depression, Agitation, Other Mood Description: Calm. negative: Angry, Apathetic, Depressed, Fearful, Flat, Happy, Hostile, Sad, Suspicious, Withdrawn, Anxious, Appropriate, Labile Affect: Normal. negative: Angry, Anxious, Depressed, Flat, Hysterical, Quiet, Violent Speech Pattern: Clear, Appropriate - Laboratory and Diagnostics Result Diagrams: 01/31/17 05:20 01/31/17 08:45 Labs: Laboratory WBC 4.5 X10^3/uL (3.6-10.0) 01/31/17 05:20 RBC 4.67 X10^6/uL (4.7-6.0) L 01/31/17 05:20 Hgb 11.8 g/dL (13.5-18.0) L D 01/31/17 05:20 Hct 35.5 % (42.0-54.0) L 01/31/17 05:20 MCV 76.1 fL (80.0-100.0) L 01/31/17 05:20 MCH 25.3 pg (27.0-34.0) L 01/31/17 05:20 MCHC 33.3 g/dL (33.0-35.0) 01/31/17 05:20 RDW 14.1 % (11.6-16.5) 01/31/17 05:20 Plt Count 258 X10^3/uL (150.0-450.0) 01/31/17 05:20 Plt Count Comment Adequate (ADEQUATE) 01/31/17 05:20 MPV 9.0 fL (7.4-11.0) 01/31/17 05:20 Neut % 48.9 % (42.0-75.0) 01/31/17 05:20 Lymph % 37.8 % (21.0-51.0) 01/31/17 05:20 [place] % 11.8 % (0.0-13.0) 01/31/17 05:20 Eos % 0.7 % (0.9-2.9) L 01/31/17 05:20 Baso % 0.8 % (0.2-1.0) 01/31/17 05:20 Neut # 2.2 x10^3/uL (2.2-4.8) 01/31/17 05:20 Lymph # 1.7 X10^3/uL (1.3-2.9) 01/31/17 05:20 [place] # 0.5 x10^3/uL (0.3-0.8) 01/31/17 05:20 Eos # 0.0 x10^3/uL (0.0-0.2) 01/31/17 05:20 Baso # 0.0 X10^3/uL (0.0-0.1) 01/31/17 05:20 Absolute Nucleated RBC 0.1 /100WBC 01/31/17 05:20 Total Counted 100 01/27/17 04:50 Neutrophils % (Manual) 89 % (39-76) H 01/27/17 04:50 Band Neutrophils % 2 % (0-10) 01/27/17 04:50 Lymphocytes % (Manual) 9 % (13-43) L 01/27/17 04:50 Plt Morphology Comment Normal (NORMAL) 01/31/17 05:20 RBC Morphology Abnormal (NORMAL) 01/31/17 05:20 Hypochromasia Slight A 01/31/17 05:20 Sample Site Rrad 01/30/17 10:06 ABG pH 7.380 (7.35-7.45) 01/30/17 10:06 ABG pCO2 38.0 mmHg (35.0-45.0) 01/30/17 10:06 ABG pO2 94.0 mmHg (80.0-100.0) 01/30/17 10:06 ABG HCO3 22.5 mmol/L (22-26) 01/30/17 10:06 ABG O2 Saturation 97.0 % (90-100) 01/30/17 10:06 ABG Base Excess -2.3 mmol/L (-2.0-2.0) L 01/30/17 10:06 Wang Test Pos 01/30/17 10:06 A-a Gradient 8.0 mmHg 01/30/17 10:06 FiO2 21.000 01/30/17 10:06 Blood Gas Comments Ah isabel well 01/30/17 10:06 Sodium 142 mmol/L (136-145) 01/31/17 05:20 Corrected Sodium 145 mmol/L (136-145) 01/31/17 05:20 Potassium 3.5 mmol/L (3.5-5.1) 01/31/17 08:45 Chloride 103 mmol/L (98-107) 01/31/17 05:20 Carbon Dioxide 35.2 mmol/L (21-32) H 01/31/17 05:20 BUN 10 mg/dL (7-18) 01/31/17 05:20 Creatinine 1.00 mg/dL (0.70-1.30) 01/31/17 05:20 Est GFR (MDRD) Af Amer > 60 (>60) 01/31/17 05:20 Est GFR (MDRD) Non-Af > 60 (>60) 01/31/17 05:20 Glucose 224 mg/dL (65-99) H 01/31/17 05:20 Hemoglobin A1c 12.5 % (4.5-6.2) H 01/26/17 22:57 Calcium 7.4 mg/dL (8.5-10.1) L 01/31/17 05:20 Corrected Calcium 8.4 mg/dL (8.5-10.1) L 01/31/17 05:20 Magnesium 1.8 mg/dL (1.7-2.9) 01/29/17 06:00 Total Bilirubin 0.40 mg/dL (0.2-1.0) 01/31/17 05:20 AST 43 Units/L (15-37) H 01/31/17 05:20 ALT 36 Units/L (12-78) 01/31/17 05:20 Alkaline Phosphatase 115 Units/L (46-116) 01/31/17 05:20 C-Reactive Protein 10.10 mg/L (0-3.0) H 01/26/17 22:57 Total Protein 6.6 g/dL (6.4-8.2) 01/31/17 05:20 Albumin 2.8 g/dL (3.4-5.0) L 01/31/17 05:20 Globulin 3.8 g/dL (2.5-4.5) 01/31/17 05:20 Albumin/Globulin Ratio 0.7 Ratio (1.1-2.1) L 01/31/17 05:20 Amylase 141 Units/L (25-115) H 01/26/17 22:57 Lipase 55 Units/L (73-393) L 01/26/17 22:57 Urine Acetone Moderate (NEGATIVE) 01/31/17 07:00 Acetone, Semi-Quant Small (NEGATIVE) H 01/26/17 22:57 - Plan (1) DM gastroparesis Status: Acute Plan: REGLAN 10MG IVP Q6H PRN, CONTINUE TO MONITOR (2) Diabetes mellitus type 1 Status: Chronic Qualifiers: Diabetes mellitus complication status: with other specified complication Plan: SLIDING SCALE INSULIN, CONTINUE TOUJEO 45 UNITS AT HS, CHECK OTBS, CONTINUE TO MONITOR (3) GERD (gastroesophageal reflux disease) Status: Chronic Qualifiers: Esophagitis presence: esophagitis presence not specified Qualified Code(s) : K21.9 - Gastro-esophageal reflux disease without esophagitis Plan: CONTINUE PROTONIX BID, CONTINUE PEPCIDMG HS, CONTINUE TO MONITOR (4) Hypertension Status: Chronic Qualifiers: Hypertension type: unspecified secondary hypertension Qualified Code(s): I15.9 - Secondary hypertension, unspecified Plan: CONTINUE CATAPRES PATCH, CONTINUE VASOTEC, CONTINUE COZAAR, CONTINUE TO MONITOR
[2017-01-31] MEDS: TOUJEO SOLOSTAR PEN SC SCH (21:36)
[2017-01-31] MEDS: PEPCID TAB 20 MG PO SCH (21:44)
[2017-01-31] MEDS: DEMEROL INJ IVP PRN (21:44)
[2017-01-31] MEDS: K-LYTE EFFERVESCENT PO PRN (21:45)
[2017-02-01] MEDS: NS 1000 ML 1,000 ML with SODIUM BICARBONATE 8.4% INJ ADULT 100 ML IV SCH ×2 (05:03)
[2017-02-01 05:10] LABS: BASOPHILS % (AUTO) 0.8 % (0.2-1.0); EOSINOPHILS % (AUTO) 0.5 % (0.9-2.9); HEMATOCRIT 34.8 % (42.0-54.0); HEMOGLOBIN 11.6 g/dL (13.5-18.0); LYMPHOCYTES # (AUTO) 2.4 X10^3/uL (1.3-2.9); LYMPHOCYTES % (AUTO) 41.7 % (21.0-51.0); MEAN CORPUSCULAR HEMOGLOBIN 25.6 pg (27.0-34.0); MEAN CORPUSCULAR HGB CONC 33.3 g/dL (33.0-35.0); MEAN CORPUSCULAR VOLUME 76.7 fL (80.0-100.0); MEAN PLATELET VOLUME 8.9 fL (7.4-11.0); MONOCYTES # (AUTO) 0.6 x10^3/uL (0.3-0.8); MONOCYTES % (AUTO) 10.4 % (0.0-13.0); NEUTROPHILS # (AUTO) 2.7 x10^3/uL (2.2-4.8); NEUTROPHILS % (AUTO) 46.6 % (42.0-75.0); PLATELET COUNT 244 X10^3/uL (150.0-450.0); RED BLOOD COUNT 4.53 X10^6/uL (4.7-6.0); RED CELL DISTRIBUTION WIDTH 13.9 % (11.6-16.5); WHITE BLOOD COUNT 5.8 X10^3/uL (3.6-10.0)
[2017-02-01 05:30] LABS: ALANINE AMINOTRANSFERASE 30 Units/L (12-78); ALBUMIN 2.9 g/dL (3.4-5.0); ALKALINE PHOSPHATASE 106 Units/L (46-116); ASPARTATE AMINO TRANSFERASE 25 Units/L (15-37); BLOOD UREA NITROGEN 9 mg/dL (7-18); CALCIUM 8.4 mg/dL (8.5-10.1); CARBON DIOXIDE 33.9 mmol/L (21-32); CHLORIDE 103 mmol/L (98-107); COR CA(FOR HYPOALB) 9.3 mg/dL (8.5-10.1); CREATININE 0.83 mg/dL (0.70-1.30); GLUCOSE 88 mg/dL (65-99); SODIUM 141 mmol/L (136-145); TOTAL PROTEIN 6.6 g/dL (6.4-8.2); eGFR BLACK RACES > 60 (>60); eGFR NON BLACK RACES > 60 (>60)
[2017-02-01 05:40] LABS: HYPOCHROMASIA SLIGHT; PLATELET MORPHOLOGY COMMENT NORMAL (NORMAL)
[2017-02-01] MEDS: PROTONIX TAB 40 MG PO SCH (08:32)
[2017-02-01] MEDS: NORCO 10/325 TAB PO SCH (08:32)
[2017-02-01] MEDS: COZAAR PO SCH (08:32)
[2017-02-01] MEDS: HumuLIN R SUBCUT PRN (11:43)
[2017-02-01 12:28] VITALS: BP 161/83
== END 2017-02-01 13:43 | disposition home or self-care (01) | DRG 392 ==
LOC: ER 21:42 → MED/SURG 01-27 01:09
PROVIDERS: ADMIT Internal Medicine; ATTEND Internal Medicine
PROC: 0D9670Z Drainage of Stomach with Drainage Device, Via Natural or Artificial Opening (ICD-10-PCS; principal; 2017-01-27)
DX: K31.84 Gastroparesis (principal); E10.43 Type 1 diabetes mellitus with diabetic autonomic (poly)neuropathy; R11.2 Nausea with vomiting, unspecified; E78.2 Mixed hyperlipidemia; K21.9 Gastro-esophageal reflux disease without esophagitis; I25.10 Atherosclerotic heart disease of native coronary artery without angina pectoris; F41.8 Other specified anxiety disorders; R10.84 Generalized abdominal pain; I15.8 Other secondary hypertension; D72.828 Other elevated white blood cell count
CPT/HCPCS: 36415; 36600; 74000; 80053; 82009; 82150; 82803; 83036; 83690; 83735; 84132; 85025; 86140; 94760; 96365; 96367; 96374; 96375; 99284; A4216; A4222; J1815; J2175; J2405; J2765; J3490

== ENCOUNTER → 2017-02-14 | Outpatient (CLI) | payer MEDICAID ==
--- NOTE | 2017-02-14 16:53 | MRI ---
HISTORY: Lumbosacral neuritis, low back pain Study: MRI lumbar spine without contrast Comparison: 09/05/2016 Technique: Multiplanar multi-sequence MRI of the lumbar spine was obtained. Sagittal T1, sagittal T2 , and stir weighted images, axial T1, and axial T2 images were obtained. Findings: Interval laminectomy changes are seen at L5-S1. Alignment of the lumbar spine is stable. No abnormal cord or marrow signal identified. The conus of the cord terminates normally. The surrounding soft t issues are within normal limits. Vertebral body heights are preserved. Multilevel spondylosis is pres ent with severe disc space narrowing and desiccation at L5-S1. Multilevel facet degenerative changes are seen without significant listhesis. T12 -- L1: No significant stenosis identified. L1 -- L2: No significant stenosis identified. L2 -- L3: Mild bilateral facet degenerative changes without significant stenosis. L3 -- L4: Mild to moderate facet degenerative changes without significant stenosis. L4 -- L5: There is a broad-based disc bulge slightly asymmetric to the left and moderate facet degene rative changes with ligamentum thickening. There is mild bilateral foraminal narrowing. L5 -- S1: At the surgical level there is a persistent broad-based disc osteophyte bulge with moderate to severe bilateral foraminal narrowing and effacement of the exiting bilateral S1 nerve roots. Eval uation is limited due to lack of IV contrast in this postsurgical patient. IMPRESSION: 1. Interval L5-S1 laminectomy with a persistent broad-based disc/osteophyte bulge causing moderate to severe bilateral foraminal narrowing and effacement of the exiting bilateral S1 nerve roots. Evaluat ion is limited due to lack of IV contrast. 2. Chronic facet degenerative changes and mild broad-based disc bulge at L4-5 without significant jaylon nosis. Reported By:
--- NOTE | 2017-02-16 14:55 | RAD ---
HISTORY: Neuritis and disk degeneration. Study: 5 views of the lumbar spine. Comparison: Lumbar spine series dated September 05, 2016. Findings: 5 non-rib bearing lumbar vertebra. No acute fracture or listhesis. No significant listhesis on flex ion /extension views. Moderate to severe disc space narrowing at L5-S1 with associated endplate scler osis and anterior disc osteophyte complex appears unchanged given technique. Otherwise, the vertebral body heights and disc spaces are normal. The SI joints are normal. The soft tissue are unremarkable. Surgical clips in the right upper quadrant. IMPRESSION: No significant change from prior exam. Reported By:
== END | disposition home or self-care (01) | DRG 552 ==
LOC: RAD 14:32
PROVIDERS: ATTEND Neurological Surgery
DX: M51.37 Other intervertebral disc degeneration, lumbosacral region (principal); M54.17 Radiculopathy, lumbosacral region; M51.27 Other intervertebral disc displacement, lumbosacral region; M51.26 Other intervertebral disc displacement, lumbar region
CPT/HCPCS: 72110; 72148

== ENCOUNTER 2017-03-08 17:50 | Emergency (ER) | payer MEDICAID ==
[2017-03-08 17:56] VITALS: BP 143/94; BMI 25.5
[2017-03-08] MEDS ORDERED: ZOFRAN INJ 4 MG VIAL 16 MG, ATIVAN INJ 2 MG VIAL 1 MG, DECADRON INJ 10 MG in NS 50 ML I... IV ONE (19:49)
[2017-03-08] MEDS ORDERED: NS 1000 ML 1,000 ML IV ONE (19:49)
--- NOTE | 2017-03-08 19:49 | DR.N/VMALE ---
HPI - Time Seen Time seen: 19:45 - Primary Care Physician Primary Care Physician: SAVANNAH - Complaints Chief Complaint Doctors Comments: Patient states that he started vomiting on yesterday, He has vomited x 5 and his pain level is 10. Severe pain, sharp, duration 1.5 days Chief Complaint:: VOMITING. Self Treatment fo Chief Complaint: TOOK PRESCRIBED MEDS. - Source History Provided: Patient - Mode of Arrival Mode of Arrival: Ambulatory - Timing Onset of Chief Complaint: 03/07/17 PMH - PMH Past Medical History: Yes Past Medical History: Anxiety, Diabetes, Dyslipidemia, GERD, Hypertension Past Surgical History: Yes Surgical History: Cholecystectomy, Ortho Surgery - Family History History of Family Medical Conditions: Yes Family Medical History: Diabetes Mellitus, Hypertension - Social History Does any household member use tobacco: No Alcohol Use: None Do you use any recreational Drugs:: No Lives With: Spouse Lives Where: Home - infectious screening In the last 2 months have you had wt loss of >10#?: NO Have you had fever, night sweats or hemotysis?: No Have you traveled outside the country in the last 6 months?: No Isolation: Standard ROS - Review of Systems Constitutional: See HPI Eyes: No Symptoms Reported ENTM: No Symptoms Reported Respiratoy: No Symptoms Reported Cardiovascular: No Symptoms Reported Gastrointestinal/Abdominal: Nausea, Vomiting Genitourinary: No Symptoms Reported Neurological: No Symptoms Reported Musculoskeletal: No Symptoms Reported Integumentary: No Symptoms Reported Hematologic/Lymphatic: No Symptoms Reported Endocrine: No Symptoms Reported Psychiatric: No Symptoms Reported All Other Systems: Reviewed and Negative PE - Vital Signs Vitals: Temperature 98 F Pulse Rate 112 Respiratory Rate 20 Blood Pressure [Right Arm] 161/83 Blood Pressure [Left Arm] 139/89 Blood Pressure [Left Radial 160/102 Artery] Blood Pressure 143/94 O2 Sat by Pulse Oximetry 100 - General Limitations: No Limitations General Appearance: Alert, In No Apparent Distress - Head Head Exam: Normal Inspection, Atraumatic - Eyes Eye exam: Normal Appearance, PERRL, EOMI - ENT ENT Exam: Mucous Membranes Dry - Neck Neck Exam: Normal Inspection, Full ROM - Chest Chest Inspection: Normal Inspection, Symmetric Chest Wall Rise - Respiratory Respiratory Exam: Normal Lung Sounds Bilat, Accessory Muscle Use Respiratory Exam: Bilateral Clear to Auscultation - Cardiovascular Cardiovascular Exam: Regular Rate, Normal Rhythm - Abdominal Exam Abdominal Exam: Normal Inspection, Normal Bowel Sounds Abdominal Tenderness: negative: RUQ, RLQ, LUQ, LLQ, Epigastrium, Suprapubic, Diffuse, Mild, Moderate, Severe, Other - Rectal Rectal Exam: Deferred - Exam: Male: Deferred - Extremities Extremities Exam: Normal Inspection. negative: Normal Capillary Refill - Back Back Exam: Normal Inspection - Neurologic Neurological Exam: Alert, Oriented X3, CN II-XII Intact - Psychiatric Psychiatric Exam: Normal Affect - Skin Skin Exam: Warm, Dry, Intact ROR - Labs Reviewed Result Diagrams: 03/08/17 23:32 03/09/17 02:24 Laboratory: WBC 8.9 X10^3/uL (3.6-10.0) 03/08/17 23:32 RBC 4.69 X10^6/uL (4.7-6.0) L 03/08/17 23:32 Hgb 12.0 g/dL (13.5-18.0) L 03/08/17 23:32 Hct 36.8 % (42.0-54.0) L 03/08/17 23:32 MCV 78.5 fL (80.0-100.0) L 03/08/17 23:32 MCH 25.6 pg (27.0-34.0) L 03/08/17 23:32 MCHC 32.7 g/dL (33.0-35.0) L 03/08/17 23:32 RDW 14.6 % (11.6-16.5) 03/08/17 23:32 Plt Count 292 X10^3/uL (150.0-450.0) 03/08/17 23:32 Plt Count Comment Adequate (ADEQUATE) 03/08/17 23:32 MPV 9.1 fL (7.4-11.0) 03/08/17 23:32 Neut % 74.0 % (42.0-75.0) 03/08/17 23:32 Lymph % 18.9 % (21.0-51.0) L 03/08/17 23:32 [place] % 6.3 % (0.0-13.0) 03/08/17 23:32 Eos % 0.1 % (0.9-2.9) L 03/08/17 23:32 Baso % 0.7 % (0.2-1.0) 03/08/17 23:32 Neut # 6.6 x10^3/uL (2.2-4.8) H 03/08/17 23:32 Lymph # 1.7 X10^3/uL (1.3-2.9) 03/08/17 23:32 [place] # 0.6 x10^3/uL (0.3-0.8) 03/08/17 23:32 Eos # 0.0 x10^3/uL (0.0-0.2) 03/08/17 23:32 Baso # 0.1 X10^3/uL (0.0-0.1) 03/08/17 23:32 Absolute Nucleated RBC 0.0 /100WBC 03/08/17 23:32 Plt Morphology Comment Normal (NORMAL) 03/08/17 23:32 RBC Morphology Abnormal (NORMAL) 03/08/17 23:32 Hypochromasia Slight A 03/08/17 23:32 Sodium 133 mmol/L (136-145) L 03/09/17 02:24 Corrected Sodium 137 mmol/L (136-145) 03/09/17 02:24 Potassium 5.4 mmol/L (3.5-5.1) H 03/09/17 02:24 Chloride 101 mmol/L (98-107) 03/09/17 02:24 Carbon Dioxide 16.8 mmol/L (21-32) L 03/09/17 02:24 BUN 41 mg/dL (7-18) H 03/09/17 02:24 Creatinine 1.41 mg/dL (0.70-1.30) H 03/09/17 02:24 Est GFR (MDRD) Af Amer > 60 (>60) 03/09/17 02:24 Est GFR (MDRD) Non-Af 58 (>60) L 03/09/17 02:24 Glucose 273 mg/dL (65-99) H 03/09/17 02:24 Calcium 7.7 mg/dL (8.5-10.1) L 03/09/17 02:24 Corrected Calcium TNP 03/09/17 02:24 Total Bilirubin 0.70 mg/dL (0.2-1.0) 03/09/17 02:24 AST 13 Units/L (15-37) L 03/09/17 02:24 ALT 20 Units/L (12-78) 03/09/17 02:24 Alkaline Phosphatase 92 Units/L (46-116) 03/09/17 02:24 Total Protein 7.4 g/dL (6.4-8.2) 03/09/17 02:24 Albumin 3.4 g/dL (3.4-5.0) 03/09/17 02:24 Globulin 4.0 g/dL (2.5-4.5) 03/09/17 02:24 Albumin/Globulin Ratio 0.9 Ratio (1.1-2.1) L 03/09/17 02:24 - Diagnosis Discharge Problem: Nausea and vomiting in adult patient, Hyponatremia, Dehydration, mild - Discharge Plan Disposition: HOME, SELF-CARE Condition: Stable - Follow ups/Referrals Follow ups/Referrals: Williams Worthington [Primary Care Provider] - 3 days - Instructions Instructions: Hyperglycemia, [id number]
[2017-03-08] MEDS ORDERED: NS 1000 ML 1,000 ML ONE (19:51)
[2017-03-08] MEDS ORDERED: NS 100 ML IV 100 ML IV ONE (19:54)
[2017-03-08] MEDS ORDERED: ZOFRAN INJ 4 MG VIAL ONE (19:54)
[2017-03-08] MEDS ORDERED: DECADRON INJ ONE (19:54)
[2017-03-08] MEDS ORDERED: ATIVAN INJ 2 MG VIAL ONE (19:55)
[2017-03-08 23:48] LABS: BASOPHILS # (AUTO) 0.1 X10^3/uL (0.0-0.1); BASOPHILS % (AUTO) 0.7 % (0.2-1.0); EOSINOPHILS % (AUTO) 0.1 % (0.9-2.9); HEMATOCRIT 36.8 % (42.0-54.0); LYMPHOCYTES # (AUTO) 1.7 X10^3/uL (1.3-2.9); LYMPHOCYTES % (AUTO) 18.9 % (21.0-51.0); MEAN CORPUSCULAR HEMOGLOBIN 25.6 pg (27.0-34.0); MEAN CORPUSCULAR HGB CONC 32.7 g/dL (33.0-35.0); MEAN CORPUSCULAR VOLUME 78.5 fL (80.0-100.0); MEAN PLATELET VOLUME 9.1 fL (7.4-11.0); MONOCYTES # (AUTO) 0.6 x10^3/uL (0.3-0.8); MONOCYTES % (AUTO) 6.3 % (0.0-13.0); NEUTROPHILS # (AUTO) 6.6 x10^3/uL (2.2-4.8); PLATELET COUNT 292 X10^3/uL (150.0-450.0); RED BLOOD COUNT 4.69 X10^6/uL (4.7-6.0); RED CELL DISTRIBUTION WIDTH 14.6 % (11.6-16.5); WHITE BLOOD COUNT 8.9 X10^3/uL (3.6-10.0)
[2017-03-08 23:53] LABS: BLOOD UREA NITROGEN 48 mg/dL (7-18); CALCIUM 8.6 mg/dL (8.5-10.1); CARBON DIOXIDE 20.3 mmol/L (21-32); CHLORIDE 98 mmol/L (98-107); COR NA(FOR HYPERGLY) 135 mmol/L (136-145); CREATININE 1.51 mg/dL (0.70-1.30); SODIUM 131 mmol/L (136-145); eGFR BLACK RACES > 60 (>60); eGFR NON BLACK RACES 54 (>60)
[2017-03-08 23:57] LABS: HYPOCHROMASIA SLIGHT; PLATELET MORPHOLOGY COMMENT NORMAL (NORMAL)
[2017-03-09] MEDS ORDERED: NS 1000 ML 1,000 ML ONE ×2 (00:04→01:09)
[2017-03-09] MEDS ORDERED: NS 1000 ML 1,000 ML IV ONE ×2 (00:14→01:11)
[2017-03-09] MEDS ORDERED: ACCUNEB 1.25 MG NEBULE NEB ONE (00:25)
[2017-03-09] MEDS ORDERED: PROVENTIL NEB TX 0.083% 2.5MG/ 3ML ONE (00:39)
[2017-03-09 02:43] LABS: CARBON DIOXIDE 16.8 mmol/L (21-32); CHLORIDE 101 mmol/L (98-107); SODIUM 133 mmol/L (136-145)
[2017-03-09 03:07] LABS: ALANINE AMINOTRANSFERASE 20 Units/L (12-78); ALBUMIN 3.4 g/dL (3.4-5.0); ALKALINE PHOSPHATASE 92 Units/L (46-116); ASPARTATE AMINO TRANSFERASE 13 Units/L (15-37); BLOOD UREA NITROGEN 41 mg/dL (7-18); CALCIUM 7.7 mg/dL (8.5-10.1); COR NA(FOR HYPERGLY) 137 mmol/L (136-145); CREATININE 1.41 mg/dL (0.70-1.30); TOTAL PROTEIN 7.4 g/dL (6.4-8.2); eGFR BLACK RACES > 60 (>60); eGFR NON BLACK RACES 58 (>60)
== END 2017-03-09 04:57 | disposition home or self-care (01) ==
LOC: ER 18:00
DX: R11.2 Nausea with vomiting, unspecified (principal); E87.1 Hypo-osmolality and hyponatremia; E86.0 Dehydration
CPT/HCPCS: 36415; 80048; 80053; 85025; 94640; 96365; 96367; 99283; A4222; J1100; J2060; J2405; J7613

== ENCOUNTER 2017-03-10 16:39 | Inpatient (IN) | payer MEDICAID ==
[2017-03-10] MEDS ORDERED: ZOFRAN INJ 4 MG VIAL 16 MG, ATIVAN INJ 2 MG VIAL 1 MG, DECADRON INJ 10 MG in NS 50 ML I... IV PRN ×2 (17:18→17:45)
[2017-03-10] MEDS ORDERED: NS 1000 ML 2,000 ML IV ONE (17:45)
[2017-03-10] MEDS ORDERED: PROTONIX INJ 40 MG VIAL IVP SCH (18:00)
[2017-03-10] MEDS ORDERED: PEPCID 20 MG IV PREMIX* 20 MG/50 ML BAG IV SCH (18:00)
[2017-03-10 18:03] LABS: ABG ALLEN TEST POS; ABG BASE EXCESS -7.7 mmol/L (-2.0-2.0); ABG HCO3 15.2 mmol/L (22-26); FRACTIONATED INSPIRED OXYGEN 21
[2017-03-10 18:06] VITALS: BMI 23.5
[2017-03-10 18:16] LABS: BASOPHILS # (AUTO) 0.1 X10^3/uL (0.0-0.1); BASOPHILS % (AUTO) 0.6 % (0.2-1.0); HEMATOCRIT 36.8 % (42.0-54.0); HEMOGLOBIN 12.3 g/dL (13.5-18.0); LYMPHOCYTES # (AUTO) 1.2 X10^3/uL (1.3-2.9); MEAN CORPUSCULAR HEMOGLOBIN 25.8 pg (27.0-34.0); MEAN CORPUSCULAR HGB CONC 33.4 g/dL (33.0-35.0); MEAN CORPUSCULAR VOLUME 77.3 fL (80.0-100.0); MEAN PLATELET VOLUME 9.1 fL (7.4-11.0); MONOCYTES # (AUTO) 0.9 x10^3/uL (0.3-0.8); MONOCYTES % (AUTO) 8.6 % (0.0-13.0); NEUTROPHILS # (AUTO) 8.7 x10^3/uL (2.2-4.8); NEUTROPHILS % (AUTO) 79.8 % (42.0-75.0); PLATELET COUNT 316 X10^3/uL (150.0-450.0); RED BLOOD COUNT 4.76 X10^6/uL (4.7-6.0); RED CELL DISTRIBUTION WIDTH 14.8 % (11.6-16.5); WHITE BLOOD COUNT 10.9 X10^3/uL (3.6-10.0)
[2017-03-10 18:24] LABS: BLOOD UREA NITROGEN 37 mg/dL (7-18); CALCIUM 9.2 mg/dL (8.5-10.1); CARBON DIOXIDE 17.8 mmol/L (21-32); CHLORIDE 90 mmol/L (98-107); COR NA(FOR HYPERGLY) 131 mmol/L (136-145); CREATININE 1.58 mg/dL (0.70-1.30); eGFR BLACK RACES > 60 (>60); eGFR NON BLACK RACES 51 (>60)
[2017-03-10 18:27] LABS: ALANINE AMINOTRANSFERASE 20 Units/L (12-78); ALBUMIN 3.8 g/dL (3.4-5.0); ALKALINE PHOSPHATASE 89 Units/L (46-116); ASPARTATE AMINO TRANSFERASE 10 Units/L (15-37); TOTAL PROTEIN 7.8 g/dL (6.4-8.2)
[2017-03-10 18:29] LABS: SODIUM 125 mmol/L (136-145)
[2017-03-10 18:32] LABS: PLATELET MORPHOLOGY COMMENT NORMAL (NORMAL)
[2017-03-10 18:33] LABS: HYPOCHROMASIA SLIGHT; MICROCYTOSIS SLIGHT
[2017-03-10] MEDS: PEPCID 20 MG IV PREMIX* 20 MG/50 ML BAG IV SCH (20:12)
[2017-03-10] MEDS: PROTONIX INJ 40 MG VIAL IVP SCH ×2 (20:12→21:50)
[2017-03-10] MEDS: HumuLIN R SUBCUT PRN (21:47)
[2017-03-10] MEDS: NS 1000 ML 1,000 ML with SODIUM BICARBONATE 8.4% INJ ADULT 50 ML IV SCH ×2 (22:51)
[2017-03-10 23:58] LABS: BILIRUBIN,URINE NEGATIVE (NEGATIVE); BLOOD/HEMOGLOBIN,URINE NEGATIVE (NEGATIVE); GLUCOSE, URINE 4+ (NEGATIVE); KETONES,URINE 3+ (NEGATIVE); LEUKOCYTE ESTERASE ,URINE NEGATIVE (NEGATIVE); NITRITES,URINE NEGATIVE (NEGATIVE); PROTEIN,URINE 1+ (NEGATIVE); UROBILINOGEN,URINE NORMAL (NORMAL)
[2017-03-10 23:59] LABS: COLOR,URINE YELLOW (YELLOW)
[2017-03-11] LABS: APPEARANCE,URINE CLEAR (CLEAR); BACTERIA,URINE TRACE /HPF (NEGATIVE); RBC,URINE NONE SEEN /HPF (NEGATIVE); SQUAMOUS EPITHELIAL CELL,UR RARE /HPF (NEGATIVE)
[2017-03-11] MEDS ORDERED: NS 50 ML IV 50 ML IV ONE (01:04)
[2017-03-11] MEDS ORDERED: DECADRON INJ PRESERVATIVE-FREE IM ONE (01:04)
[2017-03-11] MEDS ORDERED: ATIVAN INJ 2 MG VIAL ONE (01:04)
[2017-03-11] MEDS ORDERED: ZOFRAN INJ 4 MG VIAL ONE (01:04)
[2017-03-11] MEDS: NS 1000 ML 1,000 ML with SODIUM BICARBONATE 8.4% INJ ADULT 50 ML IV SCH ×6 (04:23→17:32)
[2017-03-11 05:09] LABS: BASOPHILS % (AUTO) 0.3 % (0.2-1.0); EOSINOPHILS % (AUTO) 0.1 % (0.9-2.9); HEMATOCRIT 31.5 % (42.0-54.0); HEMOGLOBIN 10.6 g/dL (13.5-18.0); LYMPHOCYTES % (AUTO) 13.9 % (21.0-51.0); MEAN CORPUSCULAR HGB CONC 33.8 g/dL (33.0-35.0); MEAN PLATELET VOLUME 9.6 fL (7.4-11.0); MONOCYTES # (AUTO) 0.4 x10^3/uL (0.3-0.8); MONOCYTES % (AUTO) 5.6 % (0.0-13.0); NEUTROPHILS # (AUTO) 5.8 x10^3/uL (2.2-4.8); NEUTROPHILS % (AUTO) 80.1 % (42.0-75.0); PLATELET COUNT 243 X10^3/uL (150.0-450.0); RED BLOOD COUNT 4.09 X10^6/uL (4.7-6.0); WHITE BLOOD COUNT 7.2 X10^3/uL (3.6-10.0)
[2017-03-11] MEDS: HumuLIN R SUBCUT PRN ×3 (05:30→22:11)
[2017-03-11 05:39] LABS: ALANINE AMINOTRANSFERASE 17 Units/L (12-78); ALBUMIN 3.1 g/dL (3.4-5.0); ALKALINE PHOSPHATASE 73 Units/L (46-116); ASPARTATE AMINO TRANSFERASE 17 Units/L (15-37); BLOOD UREA NITROGEN 29 mg/dL (7-18); CALCIUM 8.1 mg/dL (8.5-10.1); CARBON DIOXIDE 16.7 mmol/L (21-32); CHLORIDE 101 mmol/L (98-107); COR CA(FOR HYPOALB) 8.8 mg/dL (8.5-10.1); COR NA(FOR HYPERGLY) 137 mmol/L (136-145); CREATININE 1.18 mg/dL (0.70-1.30); SODIUM 133 mmol/L (136-145); TOTAL PROTEIN 6.5 g/dL (6.4-8.2); eGFR BLACK RACES > 60 (>60); eGFR NON BLACK RACES > 60 (>60)
--- NOTE | 2017-03-11 08:39 | RAD ---
Abdomen, one-view Indication: Nausea, vomiting abdominal pain Comparison: 01/28/2017 Findings: The bowel-gas pattern is nonobstructive. No convincing pneumatosis or free intraperitoneal air is identified. No pathologic calcifications are seen. Regional skeleton is intact. Impression: No acute abdominal abnormality. Reported By:
[2017-03-11] MEDS: PROTONIX INJ 40 MG VIAL IVP SCH ×2 (10:02→22:11)
[2017-03-11] MEDS: PEPCID 20 MG IV PREMIX* 20 MG/50 ML BAG IV SCH ×2 (10:02→22:11)
[2017-03-11] MEDS ORDERED: PHENERGAN INJ 25 MG IM PRN (10:12)
--- NOTE | 2017-03-11 10:21 | DR.UPDATE ---
H&P Update History and Physical Update: WAS SEEN IN THE OFFICE ON 03/10/17. A H&P WAS COMPLETED PRIOR TO ADMISSION. PATIENT HAS BEEN SEEN AND EXAMINED WITH NO CHANGES NOTED TO H&P. Changes noted: NO Yes with the following:
[2017-03-11] MEDS: COZAAR PO SCH ×2 (10:45→16:58)
[2017-03-11] MEDS: DEMEROL INJ IVP PRN (10:57)
[2017-03-11] MEDS: LEVSIN/MAALOX/LIDOC VISC PO SCH ×4 (10:57→22:10)
[2017-03-11] MEDS ORDERED: CATAPRES-TTS-3 TD SCH (11:00)
[2017-03-11] MEDS: HumaLOG SC SCH ×2 (13:31→22:19)
[2017-03-11] MEDS: KLONOPIN TAB 1 MG PO PRN (22:09)
[2017-03-11] MEDS: TOUJEO SOLOSTAR PEN SC SCH (22:12)
[2017-03-11] MEDS: SNACK - Diabetic Appropriate PO SCH (22:19)
[2017-03-12] MEDS: NS 1000 ML 1,000 ML with SODIUM BICARBONATE 8.4% INJ ADULT 50 ML IV SCH ×2 (03:31)
[2017-03-12 05:21] LABS: ABG HCO3 29.1 mmol/L (22-26)
[2017-03-12 05:22] LABS: ABG ALLEN TEST POS; FRACTIONATED INSPIRED OXYGEN 21
[2017-03-12 05:36] LABS: ALANINE AMINOTRANSFERASE 14 Units/L (12-78); ALBUMIN 2.8 g/dL (3.4-5.0); ALKALINE PHOSPHATASE 62 Units/L (46-116); ASPARTATE AMINO TRANSFERASE 8 Units/L (15-37); BLOOD UREA NITROGEN 20 mg/dL (7-18); CALCIUM 7.7 mg/dL (8.5-10.1); CARBON DIOXIDE 24.7 mmol/L (21-32); CHLORIDE 100 mmol/L (98-107); COR CA(FOR HYPOALB) 8.7 mg/dL (8.5-10.1); COR NA(FOR HYPERGLY) 136 mmol/L (136-145); CREATININE 1.03 mg/dL (0.70-1.30); SODIUM 132 mmol/L (136-145); TOTAL PROTEIN 5.7 g/dL (6.4-8.2); eGFR BLACK RACES > 60 (>60); eGFR NON BLACK RACES > 60 (>60)
[2017-03-12 06:10] LABS: BASOPHILS % (AUTO) 0.3 % (0.2-1.0); HEMATOCRIT 26.9 % (42.0-54.0); HEMOGLOBIN 9.3 g/dL (13.5-18.0); LYMPHOCYTES # (AUTO) 0.8 X10^3/uL (1.3-2.9); LYMPHOCYTES % (AUTO) 15.6 % (21.0-51.0); MEAN CORPUSCULAR HEMOGLOBIN 26.3 pg (27.0-34.0); MEAN CORPUSCULAR HGB CONC 34.7 g/dL (33.0-35.0); MEAN CORPUSCULAR VOLUME 75.8 fL (80.0-100.0); MEAN PLATELET VOLUME 9.3 fL (7.4-11.0); MONOCYTES # (AUTO) 0.5 x10^3/uL (0.3-0.8); MONOCYTES % (AUTO) 10.3 % (0.0-13.0); NEUTROPHILS # (AUTO) 3.8 x10^3/uL (2.2-4.8); NEUTROPHILS % (AUTO) 73.8 % (42.0-75.0); PLATELET COUNT 220 X10^3/uL (150.0-450.0); RED BLOOD COUNT 3.55 X10^6/uL (4.7-6.0); RED CELL DISTRIBUTION WIDTH 14.9 % (11.6-16.5); WHITE BLOOD COUNT 5.2 X10^3/uL (3.6-10.0)
[2017-03-12] MEDS: HumuLIN R SUBCUT PRN ×3 (06:16→22:19)
[2017-03-12] MEDS: DEMEROL INJ IVP PRN (06:58)
[2017-03-12] MEDS: HumaLOG SC SCH ×3 (09:17→16:19)
[2017-03-12] MEDS: COZAAR PO SCH (09:20)
[2017-03-12] MEDS: PROTONIX INJ 40 MG VIAL IVP SCH ×2 (09:21→22:17)
[2017-03-12] MEDS: PEPCID 20 MG IV PREMIX* 20 MG/50 ML BAG IV SCH ×2 (09:21→22:18)
[2017-03-12] MEDS: LEVSIN/MAALOX/LIDOC VISC PO SCH ×4 (09:21→22:17)
[2017-03-12] MEDS: HEMOCYTE-PLUS PO SCH (11:09)
[2017-03-12] MEDS: NS 1000 ML 1,000 ML IV SCH ×2 (11:09→22:46)
--- NOTE | 2017-03-12 12:53 | DR.CONSULT ---
Consult - Consultation for Day of: Date: 03/12/17 - Chief Complaint Chief Complaint: Phlebosclerosis - Allergies Allergies/Adverse Reactions: Allergies Allergy/AdvReac Type Severity Reaction Status Date / Time codeine Allergy Verified 01/26/17 23:47 morphine Allergy Verified 01/26/17 23:47 - History of Present Illness History of Present Illness: The patient is a 46 year old male who was recently admitted to the hospital for epigastric pain. The patient apparently requires frequent admissions due to complications associated with medical comorbidities. The patient has developed phlebosclerosis making IV placement difficult. The patient's primary team consulted surgery for port-a-cath placement to aid outpatient IV therapy and hopefully reduce admissions. - Past Medical History Past Medical History: Anxiety, Diabetes, Dyslipidemia, GERD, Hypertension Additional Medical History: Diabetic Neuropathy, Diabetic Gastroparesis, Hiatal Hernia, Gastric Ulcer, Gall Bladder Disease, Back Pain - Past Surgical History Surgical History: Cholecystectomy, Ortho Surgery Additional Surgical History: Right foot I&D - Family History Family Medical History: Diabetes Mellitus, Hypertension - Social History Does patient currently use any type of tobacco product: No Have you used tobacco products in the last 12 months: No Type of Tobacco Use: None Alcohol Use: None Drug Use: None - Medications Home Medications: Insulin Lispro (Humalog) [HumaLOG INSULIN 10 ML VIAL *] 7 units SUBCUT TID 03/10 [History Confirmed 03/10/17] Ketorolac Tromethamine 1 tab PO Q4-6H PRN 03/10/17 [History Confirmed 03/10/17] Oxycodone HCl/Acetaminophen [Oxycodone-Acetaminophen 10-325] 1 - 2 tab PO Q4-6H PRN 03/10/17 [History Confirmed 03/10/17] - Review of Systems Constitutional: Weakness Eyes: No Symptoms Reported ENT: No Symptoms Reported Respiratory: No Symptoms Reported Cardiovascular: No Symptoms Reported Gastrointestinal: Nausea, Vomiting, Abdominal Pain, Melena Genitourinary: No Symptoms Reported Musculoskeletal: Back Pain Skin: No Symptoms Reported Neurological: Weakness - Physical Exam Vital Signs: Temperature 97.3 F Pulse Rate [Left Brachial] 64 Pulse Rate [Right Brachial] 74 Respiratory Rate 18 Blood Pressure [Right Arm] 109/67 Blood Pressure [Left Arm] 143/76 Blood Pressure [Left Radial 160/102 Artery] Blood Pressure 143/94 O2 Sat by Pulse Oximetry 100 Oriented: Normal Eyes: Normal Respiratory: Clear Throughout Cardiovascular: Normal Auscultation: Bowel Sounds: Normal Palpation: Normal Tenderness: Epigastric (Mild) Skin: Normal Musculoskeletal: Normal Psychiatric: Normal Mood Description: Calm Affect: Normal Speech Pattern: Clear, Appropriate - Plan Plan: 46 yo M with frequent hospitalizations and phlebosclerosis. Discussed with patient risks and benefits of PAC placement. Patient wishes to proceed. Since patient ate breakfast this am, will plan on placement tomorrow. OK to perform on outpatient basis if desired by primary team. Thank for for this consultation.
--- NOTE | 2017-03-12 21:02 | PCM.PROG ---
Progress Note - Progress Note for Day of Date: 03/11/17 - Subjective Subjective: WAS ADMITTED YESTERDAY FOR INTRACTABLE NAUSEA AND VOMITING. TODAY, HE IS ALERT AND ORIENTED, LYING IN BED ON MORNING ROUNDS. HE IS NOTED WITH COMPLAINTS OF NAUSEA AND ABDOMINAL PAIN DESPITE RECEIVING ZOFRAN COCKTAIL ORDERED. ON EXAMINATION, LUNGS ARE NOTED CLEAR TO AUSCULTATION. ABDOMEN IS SOFT, ROUND, AND TENDER. NORMAL BOWEL SOUNDS ARE NOTED IN ALL QUADRANTS. HIS VITAL SIGNS THIS MORNING ARE 97.5-105-20-98%-115/71. A CBC AND CMP WERE OBTAINED THIS MORNING. ABNORMAL LAB RESULTS INCLUDE THE FOLLOWING: RBC 4.09, HGB 10.6, HCT 31.5, BUN 29, GLUCOSE 254, CALCIUM 8.1, ALBUMIN 3.1. URINE ACETONES SMALL. A KUB WAS OBTAINED ON ADMISSION. IT WAS NEGATIVE FOR ACUTE ABNORMALITY. PATIENT REQUEST TO EAT. WE WILL ORDER A FULL LIQUID DIET AND ADVANCE TO 1800 NOEMI ADA DIET TOLERATED. WE WILL ALSO ORDER FOR PATIENT TO HAVE GI COCKTAIN 15ML PO QID, DEMEROL 25MG IV Q6H PRN, AND PHENERGAN 25MG IM Q6H PRN. OTHERWISE, WE WILL CONTINUE WITH CURRENT PLAN OF CARE. WE PLAN TO FOLLOW UP WITH AM LABS AND CONTINUE TO MONITOR PATIENT. - Past Medical Family Social History Past Med/Fam/Surg Hx: No changes since H&P Allergies: Allergies codeine Allergy (Verified 01/26/17 23:47) morphine Allergy (Verified 01/26/17 23:47) - Review of Systems ROS: No change since H&P - Vital Signs and I&O's Vital Signs: Temperature 97.4 F Pulse Rate [Left Brachial] 67 Pulse Rate [Right Brachial] 74 Respiratory Rate 17 Blood Pressure [Right Arm] 72/41 Blood Pressure [Left Arm] 143/76 Blood Pressure [Left Radial 160/102 Artery] Blood Pressure 143/94 O2 Sat by Pulse Oximetry 100 Intake and Output: Intake & Output 03/10/17 03/11/17 03/12/17 03/13/17 11:59 11:59 11:59 11:59 Intake Total 2600 3880 1860 Output Total 1475 Balance 1125 3880 1860 - Physical Exam Oriented: Normal Eyes: Normal Ear: Normal Nose: Normal Throat: Normal Respiratory: Normal Cardiovascular: Normal : Normal Auscultation: Bowel Sounds: Normal Palpation: Normal Tenderness: Diffuse, Epigastric Skin: Normal Musculoskeletal: Normal Psychiatric: Normal Mood Description: Calm Affect: Normal Speech Pattern: Clear, Appropriate - Laboratory and Diagnostics Result Diagrams: 03/12/17 03:35 03/12/17 03:35 Labs: Laboratory WBC 5.2 X10^3/uL (3.6-10.0) 03/12/17 03:35 RBC 3.55 X10^6/uL (4.7-6.0) L 03/12/17 03:35 Hgb 9.3 g/dL (13.5-18.0) L 03/12/17 03:35 Hct 26.9 % (42.0-54.0) L 03/12/17 03:35 MCV 75.8 fL (80.0-100.0) L 03/12/17 03:35 MCH 26.3 pg (27.0-34.0) L 03/12/17 03:35 MCHC 34.7 g/dL (33.0-35.0) 03/12/17 03:35 RDW 14.9 % (11.6-16.5) 03/12/17 03:35 Plt Count 220 X10^3/uL (150.0-450.0) 03/12/17 03:35 Plt Count Comment Adequate (ADEQUATE) 03/10/17 18:05 MPV 9.3 fL (7.4-11.0) 03/12/17 03:35 Neut % 73.8 % (42.0-75.0) 03/12/17 03:35 Lymph % 15.6 % (21.0-51.0) L 03/12/17 03:35 Emanuel % 10.3 % (0.0-13.0) 03/12/17 03:35 Eos % 0.0 % (0.9-2.9) L 03/12/17 03:35 Baso % 0.3 % (0.2-1.0) 03/12/17 03:35 Neut # 3.8 x10^3/uL (2.2-4.8) 03/12/17 03:35 Lymph # 0.8 X10^3/uL (1.3-2.9) L 03/12/17 03:35 Emanuel # 0.5 x10^3/uL (0.3-0.8) 03/12/17 03:35 Eos # 0.0 x10^3/uL (0.0-0.2) 03/12/17 03:35 Baso # 0.0 X10^3/uL (0.0-0.1) 03/12/17 03:35 Absolute Nucleated RBC 0.0 /100WBC 03/12/17 03:35 Plt Morphology Comment Normal (NORMAL) 03/10/17 18:05 RBC Morphology Abnormal (NORMAL) 03/10/17 18:05 Hypochromasia Slight A 03/10/17 18:05 Microcytosis Slight A 03/10/17 18:05 Sample Site R rad 03/12/17 05:01 ABG pH 7.470 (7.35-7.45) H 03/12/17 05:01 ABG pCO2 40.0 mmHg (35.0-45.0) 03/12/17 05:01 ABG pO2 95.0 mmHg (80.0-100.0) 03/12/17 05:01 ABG HCO3 29.1 mmol/L (22-26) H 03/12/17 05:01 ABG O2 Saturation 98.0 % (90-100) 03/12/17 05:01 ABG Base Excess 5.0 mmol/L (-2.0-2.0) H 03/12/17 05:01 Wang Test Pos 03/12/17 05:01 A-a Gradient 5.0 mmHg 03/12/17 05:01 FiO2 21 03/12/17 05:01 Blood Gas Comments Les well, afh 03/12/17 05:01 Sodium 132 mmol/L (136-145) L 03/12/17 03:35 Corrected Sodium 136 mmol/L (136-145) 03/12/17 03:35 Potassium 4.1 mmol/L (3.5-5.1) 03/12/17 03:35 Chloride 100 mmol/L (98-107) 03/12/17 03:35 Carbon Dioxide 24.7 mmol/L (21-32) 03/12/17 03:35 BUN 20 mg/dL (7-18) H 03/12/17 03:35 Creatinine 1.03 mg/dL (0.70-1.30) 03/12/17 03:35 Est GFR (MDRD) Af Amer > 60 (>60) 03/12/17 03:35 Est GFR (MDRD) Non-Af > 60 (>60) 03/12/17 03:35 Glucose 281 mg/dL (65-99) H 03/12/17 03:35 POC Glucose (mg/dL) 202 mg/dL (65-99) H 03/12/17 16:14 Calcium 7.7 mg/dL (8.5-10.1) L 03/12/17 03:35 Corrected Calcium 8.7 mg/dL (8.5-10.1) 03/12/17 03:35 Total Bilirubin 0.60 mg/dL (0.2-1.0) 03/12/17 03:35 AST 8 Units/L (15-37) L 03/12/17 03:35 ALT 14 Units/L (12-78) 03/12/17 03:35 Alkaline Phosphatase 62 Units/L (46-116) 03/12/17 03:35 Total Protein 5.7 g/dL (6.4-8.2) L 03/12/17 03:35 Albumin 2.8 g/dL (3.4-5.0) L 03/12/17 03:35 Globulin 2.9 g/dL (2.5-4.5) 03/12/17 03:35 Albumin/Globulin Ratio 1.0 Ratio (1.1-2.1) L 03/12/17 03:35 Specimen Type Clean catch urine 03/10/17 23:31 Urine Color Yellow (YELLOW) 03/10/17 23:31 Urine Appearance Clear (CLEAR) 03/10/17 23:31 Urine pH 5.0 (5.0 - 8.0) 03/10/17 23:31 Ur Specific [place] 1.015 (1.000-1.030) 03/10/17 23:31 Urine Protein 1+ (NEGATIVE) 03/10/17 23:31 Urine Glucose (UA) 4+ (NEGATIVE) 03/10/17 23:31 Urine Ketones 3+ (NEGATIVE) 03/10/17 23:31 Urine Occult Blood Negative (NEGATIVE) 03/10/17 23: Urine Nitrite Negative (NEGATIVE) 03/10/17 23: Urine Bilirubin Negative (NEGATIVE) 03/10/17 23:31 Urine Urobilinogen Normal (NORMAL) 03/10/17 23:31 Ur Leukocyte Esterase Negative (NEGATIVE) 03/10/17 23:31 Urine RBC None seen /HPF (NEGATIVE) 03/10/17 23:31 Urine WBC 0-2 /HPF (NEGATIVE) 03/10/17 23:31 Ur Squamous Epith Cells Rare /HPF (NEGATIVE) 03/10/17 23:31 Urine Bacteria Trace /HPF (NEGATIVE) 03/10/17 23:31 Ur Culture Indicated? No/not indicated 03/10/17 23:31 Acetone, Semi-Quant Small (NEGATIVE) H 03/12/17 03:35 - Plan (1) Nausea & vomiting Status: Acute Qualifiers: Vomiting type: bilious vomiting Qualified Code(s): R11.14 - Bilious vomiting Plan: ZOFRAN COCKTAIL, PHENERGAN 25MG IM, IV FLUIDS, CONTINUE TO MONITOR (2) Diabetes mellitus Status: Chronic Qualifiers: Diabetes mellitus complication status: with unspecified complications Diabetes mellitus alf insulin use: with alf use Plan: CONTINUE TEFLARO, REGULAR INSULIN SLIDING SCALE, OTBS ACHS, CONTINUE TO MONITOR (3) Dehydration, mild Status: Acute Plan: IV FLUIDS AT 150ML/HR, CONTINUE TO MONITOR
--- NOTE | 2017-03-12 21:44 | PCM.PROG ---
Progress Note - Progress Note for Day of Date: 03/12/17 - Subjective Subjective: WAS ADMITTED FOR INTRACTABLE NAUSEA AND VOMITING. TODAY, HE IS ALERT AND ORIENTED, LYING IN BED ON MORNING ROUNDS. TODAY, HE REPORTS SOME IMPROVEMENT IN ABDOMINAL PAIN, BUT CONTINUES TO REPORT SOME NAUSEA, ALTHOUGH, IT IS BETTER TODAY THAN IT WAS YESTERDAY. ON EXAMINATION, LUNGS ARE NOTED CLEAR TO AUSCULTATION. ABDOMEN IS SOFT, ROUND, AND TENDER. NORMAL BOWEL SOUNDS ARE NOTED IN ALL QUADRANTS. HIS VITAL SIGNS THIS MORNING ARE 97.3-64-18- 100%-143/76. A CBC AND CMP WERE OBTAINED THIS MORNING. ABNORMAL LAB RESULTS INCLUDE THE FOLLOWING: RBC 3.55, HGB 9.3, HCT 26.9, SODIUM 132, BUN 20, GLUCOSE 281, CALCIUM 7.7, AST 8, TOTAL PROTEIN 5.7, ALBUMIN 2.8. URINE ACETONES SMALL. STAFF REPORTED LOSING IV ACCESS THROUGHOUT THE NIGHT. APPARENTLY, THEY HAD A DIFFICULT TIME REGAINING ACCESS. DUE TO PATIENT BEING A FREQUENT READMISSION, WE FEEL THAT IT WOULD BENEFIT HIM TO OBTAIN A PORT A CATH. WITH A PORT A CATH IN PLACE, WE WOULD ALSO BE ABLE TO MANAGE HIS CONDITION AT THE OFFICE A FIRST OPTION RATHER THAN ADMITTING TO THE HOSPITAL. PATIENT IS IN AGREEMENT WITH PLAN. WE WILL CONSULT FOR PLACEMENT. WE WILL ALSO START HEMOCYTE PLUS 1 CAPSULE DAILY. OTHERWISE, WE WILL CONTINUE WITH CURRENT PLAN OF CARE. WE PLAN TO FOLLOW UP WITH AM LABS AND CONTINUE TO MONITOR PATIENT. - Past Medical Family Social History Past Med/Fam/Surg Hx: No changes since H&P Allergies: Allergies codeine Allergy (Verified 01/26/17 23:47) morphine Allergy (Verified 01/26/17 23:47) - Review of Systems ROS: No change since H&P - Vital Signs and I&O's Vital Signs: Temperature 97.4 F Pulse Rate [Left Brachial] 67 Pulse Rate [Right Brachial] 74 Respiratory Rate 17 Blood Pressure [Right Arm] 72/41 Blood Pressure [Left Arm] 143/76 Blood Pressure [Left Radial 160/102 Artery] Blood Pressure 143/94 O2 Sat by Pulse Oximetry 100 Intake and Output: Intake & Output 03/10/17 03/11/17 03/12/17 03/13/17 11:59 11:59 11:59 11:59 Intake Total 2600 3880 1860 Output Total 1475 Balance 1125 3880 1860 - Physical Exam Oriented: Normal Eyes: Normal Ear: Normal Nose: Normal Throat: Normal Respiratory: Normal Cardiovascular: Normal : Normal Auscultation: Bowel Sounds: Normal Palpation: Normal Tenderness: Diffuse, Epigastric Skin: Normal Musculoskeletal: Normal Psychiatric: Normal Mood Description: Calm Affect: Normal Speech Pattern: Clear, Appropriate - Laboratory and Diagnostics Result Diagrams: 03/12/17 03:35 03/12/17 03:35 Labs: Laboratory WBC 5.2 X10^3/uL (3.6-10.0) 03/12/17 03:35 RBC 3.55 X10^6/uL (4.7-6.0) L 03/12/17 03:35 Hgb 9.3 g/dL (13.5-18.0) L 03/12/17 03:35 Hct 26.9 % (42.0-54.0) L 03/12/17 03:35 MCV 75.8 fL (80.0-100.0) L 03/12/17 03:35 MCH 26.3 pg (27.0-34.0) L 03/12/17 03:35 MCHC 34.7 g/dL (33.0-35.0) 03/12/17 03:35 RDW 14.9 % (11.6-16.5) 03/12/17 03:35 Plt Count 220 X10^3/uL (150.0-450.0) 03/12/17 03:35 Plt Count Comment Adequate (ADEQUATE) 03/10/17 18:05 MPV 9.3 fL (7.4-11.0) 03/12/17 03:35 Neut % 73.8 % (42.0-75.0) 03/12/17 03:35 Lymph % 15.6 % (21.0-51.0) L 03/12/17 03:35 Desha % 10.3 % (0.0-13.0) 03/12/17 03:35 Eos % 0.0 % (0.9-2.9) L 03/12/17 03:35 Baso % 0.3 % (0.2-1.0) 03/12/17 03:35 Neut # 3.8 x10^3/uL (2.2-4.8) 03/12/17 03:35 Lymph # 0.8 X10^3/uL (1.3-2.9) L 03/12/17 03:35 Desha # 0.5 x10^3/uL (0.3-0.8) 03/12/17 03:35 Eos # 0.0 x10^3/uL (0.0-0.2) 03/12/17 03:35 Baso # 0.0 X10^3/uL (0.0-0.1) 03/12/17 03:35 Absolute Nucleated RBC 0.0 /100WBC 03/12/17 03:35 Plt Morphology Comment Normal (NORMAL) 03/10/17 18:05 RBC Morphology Abnormal (NORMAL) 03/10/17 18:05 Hypochromasia Slight A 03/10/17 18:05 Microcytosis Slight A 03/10/17 18:05 Sample Site R rad 03/12/17 05:01 ABG pH 7.470 (7.35-7.45) H 03/12/17 05:01 ABG pCO2 40.0 mmHg (35.0-45.0) 03/12/17 05:01 ABG pO2 95.0 mmHg (80.0-100.0) 03/12/17 05:01 ABG HCO3 29.1 mmol/L (22-26) H 03/12/17 05:01 ABG O2 Saturation 98.0 % (90-100) 03/12/17 05:01 ABG Base Excess 5.0 mmol/L (-2.0-2.0) H 03/12/17 05:01 Wang Test Pos 03/12/17 05:01 A-a Gradient 5.0 mmHg 03/12/17 05:01 FiO2 21 03/12/17 05:01 Blood Gas Comments Les well, afh 03/12/17 05:01 Sodium 132 mmol/L (136-145) L 03/12/17 03:35 Corrected Sodium 136 mmol/L (136-145) 03/12/17 03:35 Potassium 4.1 mmol/L (3.5-5.1) 03/12/17 03:35 Chloride 100 mmol/L (98-107) 03/12/17 03:35 Carbon Dioxide 24.7 mmol/L (21-32) 03/12/17 03:35 BUN 20 mg/dL (7-18) H 03/12/17 03:35 Creatinine 1.03 mg/dL (0.70-1.30) 03/12/17 03:35 Est GFR (MDRD) Af Amer > 60 (>60) 03/12/17 03:35 Est GFR (MDRD) Non-Af > 60 (>60) 03/12/17 03:35 Glucose 281 mg/dL (65-99) H 03/12/17 03:35 POC Glucose (mg/dL) 202 mg/dL (65-99) H 03/12/17 16:14 Calcium 7.7 mg/dL (8.5-10.1) L 03/12/17 03:35 Corrected Calcium 8.7 mg/dL (8.5-10.1) 03/12/17 03:35 Total Bilirubin 0.60 mg/dL (0.2-1.0) 03/12/17 03:35 AST 8 Units/L (15-37) L 03/12/17 03:35 ALT 14 Units/L (12-78) 03/12/17 03:35 Alkaline Phosphatase 62 Units/L (46-116) 03/12/17 03:35 Total Protein 5.7 g/dL (6.4-8.2) L 03/12/17 03:35 Albumin 2.8 g/dL (3.4-5.0) L 03/12/17 03:35 Globulin 2.9 g/dL (2.5-4.5) 03/12/17 03:35 Albumin/Globulin Ratio 1.0 Ratio (1.1-2.1) L 03/12/17 03:35 Specimen Type Clean catch urine 03/10/17 23:31 Urine Color Yellow (YELLOW) 03/10/17 23:31 Urine Appearance Clear (CLEAR) 03/10/17 23:31 Urine pH 5.0 (5.0 - 8.0) 03/10/17 23:31 Ur Specific [place] 1.015 (1.000-1.030) 03/10/17 23:31 Urine Protein 1+ (NEGATIVE) 03/10/17 23:31 Urine Glucose (UA) 4+ (NEGATIVE) 03/10/17 23:31 Urine Ketones 3+ (NEGATIVE) 03/10/17 23:31 Urine Occult Blood Negative (NEGATIVE) 03/10/17 23:31 Urine Nitrite Negative (NEGATIVE) 03/10/17 23:31 Urine Bilirubin Negative (NEGATIVE) 03/10/17 23:31 Urine Urobilinogen Normal (NORMAL) 03/10/17 23:31 Ur Leukocyte Esterase Negative (NEGATIVE) 03/10/17 23:31 Urine RBC None seen /HPF (NEGATIVE) 03/10/17 23:31 Urine WBC 0-2 /HPF (NEGATIVE) 03/10/17 23:31 Ur Squamous Epith Cells Rare /HPF (NEGATIVE) 03/10/17 23:31 Urine Bacteria Trace /HPF (NEGATIVE) 03/10/17 23:31 Ur Culture Indicated? 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
[2017-03-12] MEDS: KLONOPIN TAB 1 MG PO PRN (22:17)
[2017-03-12] MEDS: TORADOL TAB PO PRN (22:18)
[2017-03-12] MEDS: VITAMIN C PO SCH (22:18)
[2017-03-12] MEDS: SNACK - Diabetic Appropriate PO SCH (22:46)
[2017-03-12] MEDS: TOUJEO SOLOSTAR PEN SC SCH (22:47)
[2017-03-13] MEDS: NS 1000 ML 1,000 ML IV SCH ×5 (01:15→15:34)
[2017-03-13 04:55] LABS: BASOPHILS % (AUTO) 0.1 % (0.2-1.0); EOSINOPHILS % (AUTO) 0.1 % (0.9-2.9); HEMATOCRIT 27.5 % (42.0-54.0); HEMOGLOBIN 9.4 g/dL (13.5-18.0); LYMPHOCYTES # (AUTO) 2.7 X10^3/uL (1.3-2.9); LYMPHOCYTES % (AUTO) 39.4 % (21.0-51.0); MEAN CORPUSCULAR HEMOGLOBIN 26.4 pg (27.0-34.0); MEAN CORPUSCULAR HGB CONC 34.2 g/dL (33.0-35.0); MEAN CORPUSCULAR VOLUME 77.2 fL (80.0-100.0); MEAN PLATELET VOLUME 9.5 fL (7.4-11.0); MONOCYTES # (AUTO) 0.6 x10^3/uL (0.3-0.8); MONOCYTES % (AUTO) 8.8 % (0.0-13.0); NEUTROPHILS # (AUTO) 3.5 x10^3/uL (2.2-4.8); NEUTROPHILS % (AUTO) 51.6 % (42.0-75.0); PLATELET COUNT 206 X10^3/uL (150.0-450.0); RED BLOOD COUNT 3.57 X10^6/uL (4.7-6.0); RED CELL DISTRIBUTION WIDTH 14.3 % (11.6-16.5); WHITE BLOOD COUNT 6.8 X10^3/uL (3.6-10.0)
[2017-03-13 05:17] LABS: ALANINE AMINOTRANSFERASE 15 Units/L (12-78); ALBUMIN 2.4 g/dL (3.4-5.0); ALKALINE PHOSPHATASE 86 Units/L (46-116); ASPARTATE AMINO TRANSFERASE 12 Units/L (15-37); BLOOD UREA NITROGEN 14 mg/dL (7-18); CALCIUM 7.5 mg/dL (8.5-10.1); CARBON DIOXIDE 22.8 mmol/L (21-32); CHLORIDE 106 mmol/L (98-107); COR CA(FOR HYPOALB) 8.8 mg/dL (8.5-10.1); COR NA(FOR HYPERGLY) 138 mmol/L (136-145); CREATININE 1.01 mg/dL (0.70-1.30); SODIUM 136 mmol/L (136-145); eGFR BLACK RACES > 60 (>60); eGFR NON BLACK RACES > 60 (>60)
[2017-03-13] MEDS: HumaLOG SC SCH ×3 (07:30→17:21)
[2017-03-13] MEDS: ALBUMIN HUMAN 25%- 100ML 100 ML IV SCH ×2 (08:00→08:52)
[2017-03-13] MEDS: COZAAR PO SCH (08:51)
[2017-03-13] MEDS: HEMOCYTE-PLUS PO SCH (08:52)
[2017-03-13] MEDS: PEPCID 20 MG IV PREMIX* 20 MG/50 ML BAG IV SCH ×2 (08:52→21:32)
[2017-03-13] MEDS: LEVSIN/MAALOX/LIDOC VISC PO SCH ×4 (08:52→21:31)
[2017-03-13] MEDS: PROTONIX INJ 40 MG VIAL IVP SCH ×2 (08:52→21:34)
[2017-03-13] MEDS: ZINC SULFATE PO SCH (08:53)
[2017-03-13] MEDS: VITAMIN C PO SCH ×2 (08:53→21:32)
[2017-03-13] MEDS: MARCAINE 0.25% INJ ONE (13:29)
[2017-03-13] MEDS: XYLOCAINE 1% and EPINEPHRINE 1:100,000 ONE (13:29)
[2017-03-13] MEDS: DEMEROL INJ IVP PRN ×2 (17:10→22:49)
[2017-03-13] MEDS: HumuLIN R SUBCUT PRN (17:24)
[2017-03-13] MEDS: KLONOPIN TAB 1 MG PO PRN (21:32)
[2017-03-13] MEDS: TOUJEO SOLOSTAR PEN SC SCH (21:33)
[2017-03-13] MEDS: SNACK - Diabetic Appropriate PO SCH (21:34)
[2017-03-14] MEDS: NS 1000 ML 1,000 ML IV SCH ×3 (01:39→21:56)
[2017-03-14 05:28] LABS: BASOPHILS % (AUTO) 0.3 % (0.2-1.0); EOSINOPHILS % (AUTO) 0.2 % (0.9-2.9); HEMATOCRIT 27.5 % (42.0-54.0); HEMOGLOBIN 9.6 g/dL (13.5-18.0); LYMPHOCYTES # (AUTO) 2.1 X10^3/uL (1.3-2.9); LYMPHOCYTES % (AUTO) 28.5 % (21.0-51.0); MEAN CORPUSCULAR HEMOGLOBIN 26.6 pg (27.0-34.0); MEAN CORPUSCULAR HGB CONC 34.7 g/dL (33.0-35.0); MEAN CORPUSCULAR VOLUME 76.6 fL (80.0-100.0); MEAN PLATELET VOLUME 9.5 fL (7.4-11.0); MONOCYTES # (AUTO) 0.6 x10^3/uL (0.3-0.8); MONOCYTES % (AUTO) 8.4 % (0.0-13.0); NEUTROPHILS # (AUTO) 4.6 x10^3/uL (2.2-4.8); NEUTROPHILS % (AUTO) 62.6 % (42.0-75.0); PLATELET COUNT 230 X10^3/uL (150.0-450.0); RED BLOOD COUNT 3.59 X10^6/uL (4.7-6.0); RED CELL DISTRIBUTION WIDTH 15.1 % (11.6-16.5); WHITE BLOOD COUNT 7.4 X10^3/uL (3.6-10.0)
[2017-03-14 05:41] LABS: ALANINE AMINOTRANSFERASE 16 Units/L (12-78); ALBUMIN 2.7 g/dL (3.4-5.0); ALKALINE PHOSPHATASE 104 Units/L (46-116); ASPARTATE AMINO TRANSFERASE 9 Units/L (15-37); BLOOD UREA NITROGEN 13 mg/dL (7-18); CALCIUM 7.6 mg/dL (8.5-10.1); CARBON DIOXIDE 24.1 mmol/L (21-32); CHLORIDE 104 mmol/L (98-107); COR CA(FOR HYPOALB) 8.6 mg/dL (8.5-10.1); COR NA(FOR HYPERGLY) 140 mmol/L (136-145); CREATININE 1.02 mg/dL (0.70-1.30); SODIUM 136 mmol/L (136-145); TOTAL PROTEIN 5.3 g/dL (6.4-8.2); eGFR BLACK RACES > 60 (>60); eGFR NON BLACK RACES > 60 (>60)
[2017-03-14] MEDS: HumaLOG SC SCH ×3 (06:00→16:34)
[2017-03-14] MEDS: HEMOCYTE-PLUS PO SCH (08:55)
[2017-03-14] MEDS: LEVSIN/MAALOX/LIDOC VISC PO SCH ×4 (08:55→21:44)
[2017-03-14] MEDS: VITAMIN C PO SCH ×2 (08:56→21:43)
[2017-03-14] MEDS: ZINC SULFATE PO SCH (08:56)
[2017-03-14] MEDS: COZAAR PO SCH (09:04)
[2017-03-14] MEDS: PROTONIX INJ 40 MG VIAL IVP SCH ×2 (09:04→21:44)
[2017-03-14] MEDS: PEPCID 20 MG IV PREMIX* 20 MG/50 ML BAG IV SCH ×2 (09:04→21:43)
[2017-03-14] MEDS: ALBUMIN HUMAN 25%- 100ML 100 ML IV SCH (09:04)
[2017-03-14] MEDS ORDERED: VERSED ONE (09:10)
[2017-03-14] MEDS ORDERED: DIPRIVAN VIAL ONE (09:10)
--- NOTE | 2017-03-14 11:21 | PCM.PROG ---
Progress Note - Progress Note for Day of Date: 03/13/17 - Subjective Subjective: WAS ADMITTED FOR INTRACTABLE NAUSEA AND VOMITING. TODAY, HE IS ALERT AND ORIENTED, LYING IN BED ON MORNING ROUNDS. TODAY,HE CONTINUE WITH NAUSEA. HE DENIES ABDOMINAL PAIN THIS MORNING. ON EXAMINATION, LUNGS ARE NOTED CLEAR TO AUSCULTATION. ABDOMEN IS SOFT, ROUND, AND NON-TENDER. NORMAL BOWEL SOUNDS ARE NOTED IN ALL QUADRANTS. HIS VITAL SIGNS THIS MORNING ARE 97.0- 64-18-100%-110/67. A CBC AND CMP WERE OBTAINED THIS MORNING. ABNORMAL LAB RESULTS INCLUDE THE FOLLOWING: RBC 3.57, HGB 9.4, HCT 27.5, POTASSIUM 3.4, GLUCOSE 199, CALCIUM 7.5, AST 12, TOTAL PROTEIN 5.0, ALBUMIN 2.4. CONSULTED WITH PATIENT AND DISCUSSED PLACEMENT OF PORT-A-CATH. PATIENT IS IN AGREEMENT WITH PLAN. WILL TAKE PATIENT TO THE OR IN THE MORNING FOR PLACEMENT OF PORT-A-CATH. WE WILL ORDER FOR PATIENT TO BE NPO AFTER MIDNIGHT. OTHERWISE, WE WILL CONTINUE WITH CURRENT PLAN OF CARE. WE PLAN TO FOLLOW UP WITH AM LABS AND CONTINUE TO MONITOR PATIENT. - Past Medical Family Social History Past Med/Fam/Surg Hx: No changes since H&P Allergies: Allergies codeine Allergy (Verified 01/26/17 23:47) morphine Allergy (Verified 01/26/17 23:47) - Review of Systems ROS: No change since H&P - Vital Signs and I&O's Vital Signs: Temperature 98.5 F Pulse Rate [Left Brachial] 77 Pulse Rate [Right Brachial] 15 Respiratory Rate 17 Blood Pressure [Right Arm] 129/76 Blood Pressure [Left Arm] 143/76 Blood Pressure [Left Radial 160/102 Artery] Blood Pressure 143/94 O2 Sat by Pulse Oximetry 96 Intake and Output: Intake & Output 03/11/17 03/12/17 03/13/17 03/14/17 11:59 11:59 11:59 11:59 Intake Total 2600 3880 3790 1750 Output Total 1475 Balance 1125 3880 3790 1750 - Physical Exam Oriented: Normal Eyes: Normal Ear: Normal Nose: Normal Throat: Normal Respiratory: Normal Cardiovascular: Normal : Normal Auscultation: Bowel Sounds: Normal Palpation: Normal Tenderness: Normal Skin: Normal Musculoskeletal: Normal Psychiatric: Normal Mood Description: Calm Affect: Normal Speech Pattern: Clear, Appropriate - Laboratory and Diagnostics Result Diagrams: 03/14/17 03:45 03/14/17 03:45 Labs: Laboratory WBC 7.4 X10^3/uL (3.6-10.0) 03/14/17 03:45 RBC 3.59 X10^6/uL (4.7-6.0) L 03/14/17 03:45 Hgb 9.6 g/dL (13.5-18.0) L 03/14/17 03:45 Hct 27.5 % (42.0-54.0) L 03/14/17 03:45 MCV 76.6 fL (80.0-100.0) L 03/14/17 03:45 MCH 26.6 pg (27.0-34.0) L 03/14/17 03:45 MCHC 34.7 g/dL (33.0-35.0) 03/14/17 03:45 RDW 15.1 % (11.6-16.5) 03/14/17 03:45 Plt Count 230 X10^3/uL (150.0-450.0) 03/14/17 03:45 Plt Count Comment Adequate (ADEQUATE) 03/10/17 18:05 MPV 9.5 fL (7.4-11.0) 03/14/17 03:45 Neut % 62.6 % (42.0-75.0) 03/14/17 03:45 Lymph % 28.5 % (21.0-51.0) 03/14/17 03:45 Cross % 8.4 % (0.0-13.0) 03/14/17 03:45 Eos % 0.2 % (0.9-2.9) L 03/14/17 03:45 Baso % 0.3 % (0.2-1.0) 03/14/17 03:45 Neut # 4.6 x10^3/uL (2.2-4.8) 03/14/17 03:45 Lymph # 2.1 X10^3/uL (1.3-2.9) 03/14/17 03:45 Cross # 0.6 x10^3/uL (0.3-0.8) 03/14/17 03:45 Eos # 0.0 x10^3/uL (0.0-0.2) 03/14/17 03:45 Baso # 0.0 X10^3/uL (0.0-0.1) 03/14/17 03:45 Absolute Nucleated RBC 0.1 /100WBC 03/14/17 03:45 Plt Morphology Comment Normal (NORMAL) 03/10/17 18:05 RBC Morphology Abnormal (NORMAL) 03/10/17 18:05 Hypochromasia Slight A 03/10/17 18:05 Microcytosis Slight A 03/10/17 18:05 Sample Site R rad 03/12/17 05:01 ABG pH 7.470 (7.35-7.45) H 03/12/17 05:01 ABG pCO2 40.0 mmHg (35.0-45.0) 03/12/17 05:01 ABG pO2 95.0 mmHg (80.0-100.0) 03/12/17 05:01 ABG HCO3 29.1 mmol/L (22-26) H 03/12/17 05:01 ABG O2 Saturation 98.0 % (90-100) 03/12/17 05:01 ABG Base Excess 5.0 mmol/L (-2.0-2.0) H 03/12/17 05:01 Wang Test Pos 03/12/17 05:01 A-a Gradient 5.0 mmHg 03/12/17 05:01 FiO2 21 03/12/17 05:01 Blood Gas Comments Les well, afh 03/12/17 05:01 Sodium 136 mmol/L (136-145) 03/14/17 03:45 Corrected Sodium 140 mmol/L (136-145) 03/14/17 03:45 Potassium 3.5 mmol/L (3.5-5.1) 03/14/17 03:45 Chloride 104 mmol/L (98-107) 03/14/17 03:45 Carbon Dioxide 24.1 mmol/L (21-32) 03/14/17 03:45 BUN 13 mg/dL (7-18) 03/14/17 03:45 Creatinine 1.02 mg/dL (0.70-1.30) 03/14/17 03:45 Est GFR (MDRD) Af Amer > 60 (>60) 03/14/17 03:45 Est GFR (MDRD) Non-Af > 60 (>60) 03/14/17 03:45 Glucose 276 mg/dL (65-99) H 03/14/17 03:45 POC Glucose (mg/dL) 260 mg/dL (65-99) H 03/14/17 11:04 Calcium 7.6 mg/dL (8.5-10.1) L 03/14/17 03:45 Corrected Calcium 8.6 mg/dL (8.5-10.1) 03/14/17 03:45 Total Bilirubin 0.20 mg/dL (0.2-1.0) 03/14/17 03:45 AST 9 Units/L (15-37) L 03/14/17 03:45 ALT 16 Units/L (12-78) 03/14/17 03:45 Alkaline Phosphatase 104 Units/L (46-116) 03/14/17 03:45 Total Protein 5.3 g/dL (6.4-8.2) L 03/14/17 03:45 Albumin 2.7 g/dL (3.4-5.0) L 03/14/17 03:45 Globulin 2.6 g/dL (2.5-4.5) 03/14/17 03:45 Albumin/Globulin Ratio 1.0 Ratio (1.1-2.1) L 03/14/17 03:45 Specimen Type Clean catch urine 03/10/17 23:31 Urine Color Yellow (YELLOW) 03/10/17 23:31 Urine Appearance Clear (CLEAR) 03/10/17 23: Urine pH 5.0 (5.0 - 8.0) 03/10/17 23:31 Ur Specific [place] 1.015 (1.000-1.030) 03/10/17 23:31 Urine Protein 1+ (NEGATIVE) 03/10/17 23:31 Urine Glucose (UA) 4+ (NEGATIVE) 03/10/17 23: Urine Ketones 3+ (NEGATIVE) 03/10/17 23:31 Urine Occult Blood Negative (NEGATIVE) 03/10/17 23: Urine Nitrite Negative (NEGATIVE) 03/10/17 23: Urine Bilirubin Negative (NEGATIVE) 03/10/17 23: Urine Urobilinogen Normal (NORMAL) 03/10/17 23:31 Ur Leukocyte Esterase Negative (NEGATIVE) 03/10/17 23:31 Urine RBC None seen /HPF (NEGATIVE) 03/10/17 23:31 Urine WBC 0-2 /HPF (NEGATIVE) 03/10/17 23:31 Ur Squamous Epith Cells Rare /HPF (NEGATIVE) 03/10/17 23:31 Urine Bacteria Trace /HPF (NEGATIVE) 03/10/17 23:31 Ur Culture Indicated? 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
[2017-03-14] MEDS: NS 50 ML IV + SPIKE MINIBAG* 50 ML IV ONE ×2 (14:00→14:55)
[2017-03-14] MEDS: NS 1000 ML 1,000 ML ONE ×2 (14:00→14:05)
[2017-03-14] MEDS: ANCEF VIAL 1 GM ONE ×2 (14:01→14:55)
[2017-03-14] MEDS: XYLOCAINE 1% and EPINEPHRINE 1:100,000 ONE ×2 (14:01→14:58)
[2017-03-14] MEDS: MARCAINE 0.25% INJ ONE ×2 (14:01→14:58)
[2017-03-14] MEDS ORDERED: FENTANYL INJ 100 mcg ONE (14:58)
[2017-03-14] MEDS ORDERED: DIPRIVAN VIAL 20 ML ONE (15:04)
[2017-03-14] MEDS ORDERED: NS IRRIGATION 1000 ML 1,000 ML IR ONE (15:12)
--- NOTE | 2017-03-14 16:15 | OR.GENERIC ---
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 Procedure: Placement of right internal jugular port-a-cath (ultrasound guided). Surgeon: Aime Hansen MD. [place] Hardware Installer: Dolores Ybarra CRNA. Specimens: None. Estimated blood loss: Minimal. Complications: None. Summary: The patient is a 46 year old male who presented with phlebosclerosis. Surgery was consulted for port-a-cath placement. The risk and benefits of the procedure including difficulty with anesthesia, bleeding, infection, cava thrombosis, DVT, PE, as well as pneumothorax were discussed with the patient. The patient understood these risks and requested the procedure. On March 14, 2017, the patients right neck and chest were prepped with Chloraprep and draped in the usual sterile fashion. The skin and subcutaneous tissue overlying the right internal jugular vein was anesthetized using local anesthetic. The right internal jugular vein was then cannulated under ultrasound guidance. A wire was placed into the superior vena cava. The location of the wire was verified using fluoroscopy. A site was selected on the right chest for the port-a-cath hub. The skin was anesthetized. The skin was incised sharply. A pocket was made using blunt dissection and electrocautery. The track between the cannulation site and the right chest incision was anesthetized. A skin kirill was made at the cannulation site. The subcutaneous tissue was dilated serially using the Seldinger technique. Next, a dilator and sheath were advanced into the right IJ. The wire and dilator were removed. The catheter was advanced through the sheath to the atriocaval junction. The sheath was peeled away and discarded. The catheter was tunneled to the right chest incision and trimmed to the appropriate length. The catheter along with locking flange was connected to the port-a-cath hub. The hub was sewn to the pectoralis fascia using 3-0 Prolene x 2. The port-a-cath cristino and flushed well. The tip of the catheter was verified at the atriocaval junction. The dermis at the right chest incision and cannulation site was re- approximated using inverted, interrupted 2-0 Vicryl sutures. The skin edges were closed using a running 4-0 Monocryl. Benzoin and steri-strips were placed. A sterile dressing was placed. The patient tolerated the procedure well. There were no complications.
[2017-03-14] MEDS ORDERED: NORCO 5/325 MG TAB PO PRN (16:16)
[2017-03-14] MEDS: HumuLIN R SUBCUT PRN (16:34)
[2017-03-14] MEDS: TOUJEO SOLOSTAR PEN SC SCH (21:43)
[2017-03-14] MEDS: KLONOPIN TAB 1 MG PO PRN (21:43)
[2017-03-14] MEDS: SNACK - Diabetic Appropriate PO SCH (21:44)
[2017-03-14] MEDS: DEMEROL INJ IVP PRN (21:45)
[2017-03-14] MEDS: TORADOL TAB PO PRN (23:58)
[2017-03-15] MEDS: NS 1000 ML 1,000 ML IV SCH ×3 (03:59→07:02)
[2017-03-15] MEDS: HumaLOG SC SCH (06:01)
[2017-03-15 06:07] LABS: BASOPHILS % (AUTO) 0.3 % (0.2-1.0); EOSINOPHILS % (AUTO) 0.5 % (0.9-2.9); HEMATOCRIT 27.2 % (42.0-54.0); HEMOGLOBIN 9.3 g/dL (13.5-18.0); LYMPHOCYTES # (AUTO) 1.7 X10^3/uL (1.3-2.9); LYMPHOCYTES % (AUTO) 20.3 % (21.0-51.0); MEAN CORPUSCULAR HEMOGLOBIN 26.4 pg (27.0-34.0); MEAN CORPUSCULAR HGB CONC 34.3 g/dL (33.0-35.0); MEAN PLATELET VOLUME 9.2 fL (7.4-11.0); MONOCYTES # (AUTO) 0.5 x10^3/uL (0.3-0.8); MONOCYTES % (AUTO) 6.1 % (0.0-13.0); NEUTROPHILS # (AUTO) 6.2 x10^3/uL (2.2-4.8); NEUTROPHILS % (AUTO) 72.8 % (42.0-75.0); PLATELET COUNT 231 X10^3/uL (150.0-450.0); RED BLOOD COUNT 3.53 X10^6/uL (4.7-6.0); RED CELL DISTRIBUTION WIDTH 14.4 % (11.6-16.5); WHITE BLOOD COUNT 8.5 X10^3/uL (3.6-10.0)
[2017-03-15 06:26] LABS: ALANINE AMINOTRANSFERASE 14 Units/L (12-78); ALBUMIN 3.2 g/dL (3.4-5.0); ALKALINE PHOSPHATASE 103 Units/L (46-116); ASPARTATE AMINO TRANSFERASE 10 Units/L (15-37); BLOOD UREA NITROGEN 9 mg/dL (7-18); CALCIUM 8.1 mg/dL (8.5-10.1); CARBON DIOXIDE 26.4 mmol/L (21-32); CHLORIDE 100 mmol/L (98-107); COR CA(FOR HYPOALB) 8.7 mg/dL (8.5-10.1); COR NA(FOR HYPERGLY) 139 mmol/L (136-145); SODIUM 135 mmol/L (136-145); TOTAL PROTEIN 5.9 g/dL (6.4-8.2); eGFR BLACK RACES > 60 (>60); eGFR NON BLACK RACES > 60 (>60)
[2017-03-15 07:40] VITALS: BP 157/77
[2017-03-15] MEDS: COZAAR PO SCH (08:06)
[2017-03-15] MEDS: PEPCID 20 MG IV PREMIX* 20 MG/50 ML BAG IV SCH (08:06)
[2017-03-15] MEDS: ALBUMIN HUMAN 25%- 100ML 100 ML IV SCH (08:06)
[2017-03-15] MEDS: LEVSIN/MAALOX/LIDOC VISC PO SCH (08:06)
[2017-03-15] MEDS: HEMOCYTE-PLUS PO SCH (08:06)
[2017-03-15] MEDS: VITAMIN C PO SCH (08:07)
[2017-03-15] MEDS: ZINC SULFATE PO SCH (08:07)
[2017-03-15] MEDS: PROTONIX INJ 40 MG VIAL IVP SCH (08:07)
--- NOTE | 2017-03-17 08:16 | PCM.PROG ---
Progress Note - Progress Note for Day of Date: 03/14/17 - Subjective Subjective: WAS ADMITTED FOR INTRACTABLE NAUSEA AND VOMITING. TODAY, HE IS ALERT AND ORIENTED, LYING IN BED ON MORNING ROUNDS. TODAY,HE DENIES ABDOMINAL PAIN, BUT CONTINUES WITH NAUSEA. HE REPORTS THAT IT HAS IMPROVED SINCE YESTERDAY. ON EXAMINATION, LUNGS ARE NOTED CLEAR TO AUSCULTATION. ABDOMEN IS SOFT, ROUND, AND NON-TENDER. NORMAL BOWEL SOUNDS ARE NOTED IN ALL QUADRANTS. HIS VITAL SIGNS THIS MORNING ARE 98.1-77-17-96%-129/76. A CBC AND CMP WERE OBTAINED THIS MORNING. ABNORMAL LAB RESULTS INCLUDE THE FOLLOWING: RBC 3.53, HGB 9.3, HCT 27.2, GLUCOSE 276, CALCIUM 7.6, AST 9, TOTAL PROTEIN 5.3, ALBUMIN 2.7. PATIENT IS SCHEDULED FOR PLACEMENT OF A PORT A CATH THIS MORNING WITH . HE REMAINS NPO AT THIS TIME. TODAY, WE WILL CONTINUE WITH CURRENT PLAN OF CARE. WE PLAN TO FOLLOW UP WITH AM LABS AND CONTINUE TO MONITOR PATIENT WITH PLAN TO DISCHARGE HOME IN THE AM IF STABLE AFTER PORT A CATH PLACEMENT. - Past Medical Family Social History Past Med/Fam/Surg Hx: No changes since H&P Allergies: Allergies codeine Allergy (Verified 01/26/17 23:47) morphine Allergy (Verified 01/26/17 23:47) - Review of Systems ROS: No change since H&P - Vital Signs and I&O's Vital Signs: Temperature 97.8 F Pulse Rate [Left Brachial] 84 Pulse Rate [Right Brachial] 93 Pulse Rate 84 Respiratory Rate 20 Blood Pressure [Right Arm] 157/77 Blood Pressure [Left Arm] 143/76 Blood Pressure [Left Radial 160/102 Artery] Blood Pressure 139/82 O2 Sat by Pulse Oximetry 99 Intake and Output: Intake & Output 03/14/17 03/15/17 03/16/17 03/17/17 11:59 11:59 11:59 11:59 Intake Total 1750 370 Output Total 45 Balance 1750 325 - Physical Exam Oriented: Normal Eyes: Normal Ear: Normal Nose: Normal Throat: Normal Respiratory: Normal Cardiovascular: Normal : Normal Auscultation: Bowel Sounds: Normal Palpation: Normal Tenderness: Normal Skin: Normal Musculoskeletal: Normal Psychiatric: Normal Mood Description: Calm Affect: Normal Speech Pattern: Clear, Appropriate - Laboratory and Diagnostics Result Diagrams: 03/15/17 04:13 03/15/17 04:13 Labs: Laboratory WBC 8.5 X10^3/uL (3.6-10.0) 03/15/17 04:13 RBC 3.53 X10^6/uL (4.7-6.0) L 03/15/17 04:13 Hgb 9.3 g/dL (13.5-18.0) L 03/15/17 04:13 Hct 27.2 % (42.0-54.0) L 03/15/17 04:13 MCV 77.0 fL (80.0-100.0) L 03/15/17 04:13 MCH 26.4 pg (27.0-34.0) L 03/15/17 04:13 MCHC 34.3 g/dL (33.0-35.0) 03/15/17 04:13 RDW 14.4 % (11.6-16.5) 03/15/17 04:13 Plt Count 231 X10^3/uL (150.0-450.0) 03/15/17 04:13 Plt Count Comment Adequate (ADEQUATE) 03/10/17 18:05 MPV 9.2 fL (7.4-11.0) 03/15/17 04:13 Neut % 72.8 % (42.0-75.0) 03/15/17 04:13 Lymph % 20.3 % (21.0-51.0) L 03/15/17 04:13 [place] % 6.1 % (0.0-13.0) 03/15/17 04:13 Eos % 0.5 % (0.9-2.9) L 03/15/17 04:13 Baso % 0.3 % (0.2-1.0) 03/15/17 04:13 Neut # 6.2 x10^3/uL (2.2-4.8) H 03/15/17 04:13 Lymph # 1.7 X10^3/uL (1.3-2.9) 03/15/17 04:13 [place] # 0.5 x10^3/uL (0.3-0.8) 03/15/17 04:13 Eos # 0.0 x10^3/uL (0.0-0.2) 03/15/17 04:13 Baso # 0.0 X10^3/uL (0.0-0.1) 03/15/17 04:13 Absolute Nucleated RBC 0.1 /100WBC 03/15/17 04:13 Plt Morphology Comment Normal (NORMAL) 03/10/17 18:05 RBC Morphology Abnormal (NORMAL) 03/10/17 18:05 Hypochromasia Slight A 03/10/17 18:05 Microcytosis Slight A 03/10/17 18:05 Sample Site R rad 03/12/17 05:01 ABG pH 7.470 (7.35-7.45) H 03/12/17 05:01 ABG pCO2 40.0 mmHg (35.0-45.0) 03/12/17 05:01 ABG pO2 95.0 mmHg (80.0-100.0) 03/12/17 05:01 ABG HCO3 29.1 mmol/L (22-26) H 03/12/17 05:01 ABG O2 Saturation 98.0 % (90-100) 03/12/17 05:01 ABG Base Excess 5.0 mmol/L (-2.0-2.0) H 03/12/17 05:01 Wang Test Pos 03/12/17 05:01 A-a Gradient 5.0 mmHg 03/12/17 05:01 FiO2 21 03/12/17 05:01 Blood Gas Comments Les well, afh 03/12/17 05:01 Sodium 135 mmol/L (136-145) L 03/15/17 04:13 Corrected Sodium 139 mmol/L (136-145) 03/15/17 04:13 Potassium 3.4 mmol/L (3.5-5.1) L 03/15/17 04:13 Chloride 100 mmol/L (98-107) 03/15/17 04:13 Carbon Dioxide 26.4 mmol/L (21-32) 03/15/17 04:13 BUN 9 mg/dL (7-18) 03/15/17 04:13 Creatinine 0.90 mg/dL (0.70-1.30) 03/15/17 04:13 Est GFR (MDRD) Af Amer > 60 (>60) 03/15/17 04:13 Est GFR (MDRD) Non-Af > 60 (>60) 03/15/17 04:13 Glucose 254 mg/dL (65-99) H 03/15/17 04:13 POC Glucose (mg/dL) 251 mg/dL (65-99) H 03/15/17 05:38 Calcium 8.1 mg/dL (8.5-10.1) L 03/15/17 04:13 Corrected Calcium 8.7 mg/dL (8.5-10.1) 03/15/17 04:13 Total Bilirubin 0.30 mg/dL (0.2-1.0) 03/15/17 04:13 AST 10 Units/L (15-37) L 03/15/17 04:13 ALT 14 Units/L (12-78) 03/15/17 04:13 Alkaline Phosphatase 103 Units/L (46-116) 03/15/17 04:13 Total Protein 5.9 g/dL (6.4-8.2) L 03/15/17 04:13 Albumin 3.2 g/dL (3.4-5.0) L 03/15/17 04:13 Globulin 2.7 g/dL (2.5-4.5) 03/15/17 04:13 Albumin/Globulin Ratio 1.2 Ratio (1.1-2.1) 03/15/17 04:13 Specimen Type Clean catch urine 03/10/17 23: Urine Color Yellow (YELLOW) 03/10/17 23: Urine Appearance Clear (CLEAR) 03/10/17 23: Urine pH 5.0 (5.0 - 8.0) 03/10/17 23: Ur Specific [place] 1.015 (1.000-1.030) 03/10/17 23: Urine Protein 1+ (NEGATIVE) 03/10/17 23: Urine Glucose (UA) 4+ (NEGATIVE) 03/10/17 23: Urine Ketones 3+ (NEGATIVE) 03/10/17 23: Urine Occult Blood Negative (NEGATIVE) 03/10/17 23: Urine Nitrite Negative (NEGATIVE) 03/10/17 23: Urine Bilirubin Negative (NEGATIVE) 03/10/17 23: Urine Urobilinogen Normal (NORMAL) 03/10/17 23: Ur Leukocyte Esterase Negative (NEGATIVE) 03/10/17 23:31 Urine RBC None seen /HPF (NEGATIVE) 03/10/17 23:31 Urine WBC 0-2 /HPF (NEGATIVE) 03/10/17 23:31 Ur Squamous Epith Cells Rare /HPF (NEGATIVE) 03/10/17 23:31 Urine Bacteria Trace /HPF (NEGATIVE) 03/10/17 23:31 Ur Culture Indicated? No/not indicated 03/10/17 23:31 Acetone, Semi-Quant Small (NEGATIVE) H 03/12/17 03:35 - Plan (1) Nausea & vomiting Status: Acute Qualifiers: Vomiting type: bilious vomiting Qualified Code(s): R11.14 - Bilious vomiting Plan: ZOFRAN COCKTAIL, PHENERGAN 25MG IM, IV FLUIDS, CONTINUE TO MONITOR (2) Diabetes mellitus Status: Chronic Qualifiers: Diabetes mellitus complication status: with unspecified complications Diabetes mellitus fci insulin use: with fci use Plan: CONTINUE TEFLARO, REGULAR INSULIN SLIDING SCALE, OTBS ACHS, CONTINUE TO MONITOR (3) Dehydration, mild Status: Acute Plan: IV FLUIDS AT 150ML/HR, CONTINUE TO MONITOR (4) Anemia Status: Acute Qualifiers: Anemia type: iron deficiency Iron deficiency anemia type: unspecified iron deficiency Qualified Code(s): D50.9 - Iron deficiency anemia, unspecified Plan: HEMOCYTE PLUS 1 CAPSULE DAILY, CONTINUE TO MONITOR
== END 2017-03-15 10:15 | disposition home or self-care (01) | DRG 392 ==
LOC: MED/SURG 16:39
PROVIDERS: ADMIT Internal Medicine; ATTEND Internal Medicine
PROC: B543ZZA Ultrasonography of Right Jugular Veins, Guidance (ICD-10-PCS; 2017-03-14)
PROC: 05HM33Z Insertion of Infusion Device into Right Internal Jugular Vein, Percutaneous Approach (ICD-10-PCS; principal; 2017-03-14 12:00)
DX: R11.14 Bilious vomiting (principal); R10.84 Generalized abdominal pain; E03.8 Other specified hypothyroidism; E11.65 Type 2 diabetes mellitus with hyperglycemia; K31.84 Gastroparesis; I10 Essential (primary) hypertension; E78.4 Other hyperlipidemia; R10.13 Epigastric pain; E86.0 Dehydration; I87.8 Other specified disorders of veins; K21.9 Gastro-esophageal reflux disease without esophagitis; D50.8 Other iron deficiency anemias
CPT/HCPCS: 36415; 36600; 71010; 74000; 76000; 80048; 80053; 81001; 82009; 82803; 85025; 94640; 96365; 96367; 99283; A4222; C9113; P9047; S0020; S0028; J0690; J1100; J1815; J1817; J2001; J2060; J2175; J2250; J2405; J3010; J3490; J7613

== ENCOUNTER 2017-03-23 08:14 | Observation (INO) | payer MEDICAID ==
[2017-03-23 08:22] VITALS: BMI 23.8
--- NOTE | 2017-03-23 09:12 | DR.N/VMALE ---
HPI - Time Seen Time seen: 09:15 - Primary Care Physician Primary Care Physician: TAE - HPI Comment HPI Comment: HISTORY DIABETIC GASTROPARESIS. - Complaints Chief Complaint Doctors Comments: ABDOMINAL PAIN, PERSISTENT NAUSEA AND VOMITING SINCE LAST NIGHT. NOT HOLDING DOWN MEDS. Chief Complaint:: THROWING UP WITH STOMACH PAIN Self Treatment fo Chief Complaint: PHENERGAN - Reviewed Nurses Notes Reviewed: Yes - Source History Provided: Patient - Mode of Arrival Mode of Arrival: Ambulatory - Timing Onset of Chief Complaint: 03/22/17 - Context Onset: Spontaneous Recent: None History of: Diabetes - Quality Quality: Bilious - Associated Signs and Symptoms Abdominal Pain Quality: Cramping Abdominal Pain Location: Diffuse Symptoms: Abdominal Pain PMH - PMH Past Medical History: Yes Past Medical History: Anxiety, Diabetes, Dyslipidemia, GERD, Hypertension Past Surgical History: Yes Surgical History: Ortho Surgery, Other Past Surgical History Comment: PORT A CATH PLACEMENT, BACK SURGERY - Family History History of Family Medical Conditions: Yes Family Medical History: Diabetes Mellitus, Hypertension - Social History Does any household member use tobacco: No Alcohol Use: None Do you use any recreational Drugs:: No Lives With: Family Lives Where: Home - infectious screening In the last 2 months have you had wt loss of >10#?: NO Have you had fever, night sweats or hemotysis?: No Have you traveled outside the country in the last 6 months?: No Isolation: Standard ROS - Review of Systems Constitutional: Weakness, Fatigue. negative: Chills, Fever Eyes: No Symptoms Reported ENTM: No Symptoms Reported. negative: Ear Pain, Nose Discharge, Nose Congestion , Throat Pain Respiratoy: Non-Productive Cough, Short of Breath. negative: Productive Cough, Wheezing, Hemoptysis Cardiovascular: Chest Pain. negative: Edema Gastrointestinal/Abdominal: Abdominal Pain, Nausea, Vomiting Genitourinary: No Symptoms Reported. negative: Dysuria, Frequency, Hematuria Neurological: Weakness, Dizziness Musculoskeletal: Back Pain Integumentary: Dryness Hematologic/Lymphatic: No Symptoms Reported Endocrine: Increased Thirst All Other Systems: Reviewed and Negative PE - Vital Signs Vitals: Temperature 97.7 F Pulse Rate 109 Respiratory Rate 20 Blood Pressure [Right Arm] 157/77 Blood Pressure [Left Arm] 143/76 Blood Pressure [Left Radial 160/102 Artery] Blood Pressure 135/92 O2 Sat by Pulse Oximetry 100 - General Limitations: No Limitations General Appearance: Alert - Head Head Exam: Normal Inspection - Eyes Eye exam: Normal Appearance - ENT ENT Exam: Normal External Ear Exam - Neck Neck Exam: Trachea Midline. negative: Tenderness, Meningismus, Lymphadenopathy - Chest Chest Inspection: Symmetric Chest Wall Rise - Respiratory Respiratory Exam: Normal Lung Sounds Bilat Respiratory Exam: Bilateral Rhonchi, Lower Rhonchi - Cardiovascular Cardiovascular Exam: Regular Rate, Normal Rhythm, Normal Heart Sounds - Abdominal Exam Abdominal Exam: Normal Bowel Sounds, Soft, Tenderness Abdominal Tenderness: Diffuse, Moderate - Rectal Rectal Exam: Deferred - Exam: Male: Deferred - Extremities Extremities Exam: Normal Inspection - Back Back Exam: Normal Inspection - Neurologic Neurological Exam: Alert, Oriented X3, CN II-XII Intact, Normal Gait, Reflexes Normal. negative: Motor Sensory Deficit - Psychiatric Psychiatric Exam: Normal Affect, Normal Mood - Skin Skin Exam: Normal Color MDM - Differential Diagnosis Differential Diagnosis: Considerations may Include:: Bowel Obstruction, Gastritis, Pancreatitis, PUD, Urinary Tract Infection, Urolithiasis Differential Diagnosis Comment: DIABETIC GASTROPARESIS. Course - Treatment Treatment: SEE ORDERS. - Education/Counseling Education/Counseling: Patient, Education Educated On: Treatment, Diagnosis, Needs for Follow Up ROR - Labs Reviewed Laboratory Results Reviewed?: Yes Result Diagrams: 03/24/17 03:20 03/24/17 03:20 Laboratory: WBC 6.6 X10^3/uL (3.6-10.0) 03/23/17 09:50 RBC 3.91 X10^6/uL (4.7-6.0) L 03/23/17 09:50 Hgb 10.1 g/dL (13.5-18.0) L 03/23/17 09:50 Hct 30.7 % (42.0-54.0) L 03/23/17 09:50 MCV 78.4 fL (80.0-100.0) L 03/23/17 09:50 MCH 25.7 pg (27.0-34.0) L 03/23/17 09:50 MCHC 32.8 g/dL (33.0-35.0) L 03/23/17 09:50 RDW 15.9 % (11.6-16.5) 03/23/17 09:50 Plt Count 335 X10^3/uL (150.0-450.0) 03/23/17 09:50 Plt Count Comment Adequate (ADEQUATE) 03/23/17 09:50 MPV 7.4 fL (7.4-11.0) 03/23/17 09:50 Neut % 76.0 % (42.0-75.0) H 03/23/17 09:50 Lymph % 16.6 % (21.0-51.0) L 03/23/17 09:50 [place] % 6.5 % (0.0-13.0) 03/23/17 09:50 Eos % 0.4 % (0.9-2.9) L 03/23/17 09:50 Baso % 0.5 % (0.2-1.0) 03/23/17 09:50 Neut # 5.0 x10^3/uL (2.2-4.8) H 03/23/17 09:50 Lymph # 1.1 X10^3/uL (1.3-2.9) L 03/23/17 09:50 [place] # 0.4 x10^3/uL (0.3-0.8) 03/23/17 09:50 Eos # 0.0 x10^3/uL (0.0-0.2) 03/23/17 09:50 Baso # 0.0 X10^3/uL (0.0-0.1) 03/23/17 09:50 Absolute Nucleated RBC 0.1 /100WBC 03/23/17 09:50 Plt Morphology Comment Normal (NORMAL) 03/23/17 09:50 RBC Morphology Normal (NORMAL) 03/23/17 09:50 Sodium 139 mmol/L (136-145) 03/23/17 09:50 Corrected Sodium 144 mmol/L (136-145) 03/23/17 09:50 Potassium 4.0 mmol/L (3.5-5.1) 03/23/17 09:50 Chloride 102 mmol/L (98-107) 03/23/17 09:50 Carbon Dioxide 28.3 mmol/L (21-32) 03/23/17 09:50 BUN 9 mg/dL (7-18) 03/23/17 09:50 Creatinine 0.86 mg/dL (0.70-1.30) 03/23/17 09:50 Est GFR (MDRD) Af Amer > 60 (>60) 03/23/17 09:50 Est GFR (MDRD) Non-Af > 60 (>60) 03/23/17 09:50 Glucose 295 mg/dL (65-99) H 03/23/17 09:50 Calcium 9.1 mg/dL (8.5-10.1) 03/23/17 09:50 Corrected Calcium TNP 03/23/17 09:50 Total Bilirubin 0.60 mg/dL (0.2-1.0) 03/23/17 09:50 AST 15 Units/L (15-37) 03/23/17 09:50 ALT 19 Units/L (12-78) 03/23/17 09:50 Alkaline Phosphatase 107 Units/L (46-116) 03/23/17 09:50 Creatine Kinase 141 Units/L (39-308) 03/23/17 09:50 CK-MB (CK-2) < 1.0 ng/mL (0-4.0) 03/23/17 09:50 CK/CKMB % Calc 0.7 % (<4) 03/23/17 09:50 Troponin I < 0.02 ng/mL (0-1.5) 03/23/17 09:50 Total Protein 7.5 g/dL (6.4-8.2) 03/23/17 09:50 Albumin 3.8 g/dL (3.4-5.0) 03/23/17 09:50 Globulin 3.7 g/dL (2.5-4.5) 03/23/17 09:50 Albumin/Globulin Ratio 1.0 Ratio (1.1-2.1) L 03/23/17 09:50 Amylase 48 Units/L (25-115) 03/23/17 09:50 Lipase 147 Units/L (73-393) 03/23/17 09:50 Specimen Type Clean catch urine 03/23/17 11:19 Urine Color Yellow (YELLOW) 03/23/17 11:19 Urine Appearance Clear (CLEAR) 03/23/17 11:19 Urine pH 8.0 (5.0 - 8.0) 03/23/17 11:19 Ur Specific [place] 1.010 (1.000-1.030) 03/23/17 11:19 Urine Protein 1+ (NEGATIVE) 03/23/17 11:19 Urine Glucose (UA) 4+ (NEGATIVE) 03/23/17 11:19 Urine Ketones 2+ (NEGATIVE) 03/23/17 11:19 Urine Occult Blood Negative (NEGATIVE) 03/23/17 11:19 Urine Nitrite Negative (NEGATIVE) 03/23/17 11:19 Urine Bilirubin Negative (NEGATIVE) 03/23/17 11:19 Urine Urobilinogen Normal (NORMAL) 03/23/17 11:19 Ur Leukocyte Esterase Negative (NEGATIVE) 03/23/17 11:19 Urine RBC Rare /HPF (NEGATIVE) 03/23/17 11:19 Urine WBC Rare /HPF (NEGATIVE) 03/23/17 11:19 Ur Squamous Epith Cells Rare /HPF (NEGATIVE) 03/23/17 11:19 Amorphous Sediment Trace /HPF (NEGATIVE) 03/23/17 11:19 Urine Bacteria Negative /HPF (NEGATIVE) 03/23/17 11:19 Ur Culture Indicated? No/not indicated 03/23/17 11:19 Acetone, Semi-Quant Negative (NEGATIVE) 03/23/17 09:50 - XRAY XRAY Interpreted by: Radiologist XRAY Findings: REPORT DISCUSS WITH PATIENT. - Diagnosis Discharge Problem: Diabetic gastroparesis, Nausea and vomiting in adult patient, Dehydration, mild Abdominal pain Qualifiers: Abdominal location: epigastric Qualified Code(s): R10.13 - Epigastric pain - Discharge Plan Disposition: ADMITTED INPATIENT Condition: Stable - Follow ups/Referrals - Instructions
[2017-03-23] MEDS ORDERED: NS 1000 ML 1,000 ML IV ONE (09:13)
[2017-03-23] MEDS ORDERED: ZOFRAN INJ 4 MG VIAL IVP ONE (09:13)
[2017-03-23] MEDS ORDERED: ZOFRAN INJ 4 MG VIAL ONE (09:34)
[2017-03-23] MEDS ORDERED: NS 1000 ML 1,000 ML ONE (09:34)
[2017-03-23 10:06] LABS: BASOPHILS % (AUTO) 0.5 % (0.2-1.0); EOSINOPHILS % (AUTO) 0.4 % (0.9-2.9); HEMATOCRIT 30.7 % (42.0-54.0); HEMOGLOBIN 10.1 g/dL (13.5-18.0); LYMPHOCYTES # (AUTO) 1.1 X10^3/uL (1.3-2.9); LYMPHOCYTES % (AUTO) 16.6 % (21.0-51.0); MEAN CORPUSCULAR HEMOGLOBIN 25.7 pg (27.0-34.0); MEAN CORPUSCULAR HGB CONC 32.8 g/dL (33.0-35.0); MEAN CORPUSCULAR VOLUME 78.4 fL (80.0-100.0); MEAN PLATELET VOLUME 7.4 fL (7.4-11.0); MONOCYTES # (AUTO) 0.4 x10^3/uL (0.3-0.8); MONOCYTES % (AUTO) 6.5 % (0.0-13.0); PLATELET COUNT 335 X10^3/uL (150.0-450.0); RED BLOOD COUNT 3.91 X10^6/uL (4.7-6.0); RED CELL DISTRIBUTION WIDTH 15.9 % (11.6-16.5); WHITE BLOOD COUNT 6.6 X10^3/uL (3.6-10.0)
[2017-03-23 10:22] LABS: PLATELET MORPHOLOGY COMMENT NORMAL (NORMAL)
[2017-03-23 10:47] LABS: BLOOD UREA NITROGEN 9 mg/dL (7-18); CALCIUM 9.1 mg/dL (8.5-10.1); CARBON DIOXIDE 28.3 mmol/L (21-32); CHLORIDE 102 mmol/L (98-107); COR NA(FOR HYPERGLY) 144 mmol/L (136-145); CREATININE 0.86 mg/dL (0.70-1.30); SODIUM 139 mmol/L (136-145); TROPONIN I < 0.02 ng/mL (0-1.5); eGFR BLACK RACES > 60 (>60); eGFR NON BLACK RACES > 60 (>60)
[2017-03-23 10:51] LABS: ALANINE AMINOTRANSFERASE 19 Units/L (12-78); ALBUMIN 3.8 g/dL (3.4-5.0); ALKALINE PHOSPHATASE 107 Units/L (46-116); AMYLASE 48 Units/L (25-115); ASPARTATE AMINO TRANSFERASE 15 Units/L (15-37); CREATINE KINASE 141 Units/L (39-308); CREATINE KINASE MB < 1.0 ng/mL (0-4.0); LIPASE 147 Units/L (73-393); TOTAL PROTEIN 7.5 g/dL (6.4-8.2)
[2017-03-23 10:54] LABS: CKMB % 0.7 % (<4)
[2017-03-23 11:29] LABS: BILIRUBIN,URINE NEGATIVE (NEGATIVE); BLOOD/HEMOGLOBIN,URINE NEGATIVE (NEGATIVE); GLUCOSE, URINE 4+ (NEGATIVE); KETONES,URINE 2+ (NEGATIVE); LEUKOCYTE ESTERASE ,URINE NEGATIVE (NEGATIVE); NITRITES,URINE NEGATIVE (NEGATIVE); PROTEIN,URINE 1+ (NEGATIVE); UROBILINOGEN,URINE NORMAL (NORMAL)
[2017-03-23 11:48] LABS: APPEARANCE,URINE CLEAR (CLEAR); COLOR,URINE YELLOW (YELLOW)
[2017-03-23 11:57] LABS: AMORPHOUS SEDIMENT,UR TRACE /HPF (NEGATIVE); BACTERIA,URINE NEGATIVE /HPF (NEGATIVE); RBC,URINE RARE /HPF (NEGATIVE); SQUAMOUS EPITHELIAL CELL,UR RARE /HPF (NEGATIVE)
[2017-03-23] MEDS ORDERED: PHENERGAN INJ 25 MG IV ONE (11:57)
[2017-03-23] MEDS ORDERED: DEMEROL INJ IVP ONE (11:57)
[2017-03-23] MEDS ORDERED: DEMEROL INJ ONE (12:14)
[2017-03-23] MEDS ORDERED: PHENERGAN INJ 25 MG ONE (12:14)
[2017-03-23] MEDS ORDERED: PHENERGAN INJ 25 MG IVP PRN (12:18)
[2017-03-23] MEDS ORDERED: ZOFRAN INJ 4 MG VIAL IVP PRN (12:18)
[2017-03-23] MEDS ORDERED: PEPCID 20 MG IV PREMIX* 20 MG/50 ML BAG IV PRN (12:18)
[2017-03-23] MEDS ORDERED: DEMEROL INJ IVP PRN (12:22)
[2017-03-23] MEDS ORDERED: D5 1/2 NS 1000 ML 1,000 ML IV SCH (13:00)
[2017-03-23] MEDS: NS 1000 ML 1,000 ML IV SCH ×3 (15:08→21:28)
[2017-03-23] MEDS ORDERED: HumuLIN R SUBCUT PRN (15:21)
--- NOTE | 2017-03-23 15:39 | RAD ---
HISTORY: Abdominal pain Study: Acute abdominal series Comparison: 03/10/2017 Findings: There is a right subclavian port catheter terminating in the region of the mid SVC. The lungs are suze ar without consolidation, effusion or pneumothorax. The cardiac and mediastinal contours are within n ormal limits. Flat plate and upright evaluation of the abdomen demonstrates a normal bowel gas pattern. No gross fr ee intraperitoneal air. No pathological soft tissue mass or calcification can be observed. The bony structures are grossly intact. Cholecystectomy clips are noted. IMPRESSION: 1. No acute cardiopulmonary disease. 2. No evidence of acute abdominal pathology. Reported By:
[2017-03-23] MEDS ORDERED: KLONOPIN TAB 1 MG PO PRN (15:59)
[2017-03-23] MEDS ORDERED: PHENERGAN TAB 25 MG PO PRN (15:59)
[2017-03-23] MEDS ORDERED: VALIUM PO PRN (15:59)
[2017-03-23] MEDS ORDERED: CATAPRES-TTS-3 TD SCH (16:00)
[2017-03-23] MEDS ORDERED: PERCOCET TAB 5/325 MG PO PRN (16:12)
[2017-03-23] MEDS ORDERED: ROXICODONE TAB 5 MG PO PRN ×2 (16:13→17:00)
[2017-03-23 16:28] LABS: CREATINE KINASE 130 Units/L (39-308); CREATINE KINASE MB < 1.0 ng/mL (0-4.0); TROPONIN I < 0.02 ng/mL (0-1.5)
[2017-03-23 16:36] LABS: CKMB % 0.8 % (<4)
[2017-03-23] MEDS ORDERED: SNACK - Diabetic Appropriate PO SCH (20:00)
[2017-03-23] MEDS ORDERED: PATIENT'S HOME MEDICATION (Famotidine [Pepcid] 40 MG) PO SCH (21:00)
[2017-03-23] MEDS ORDERED: PEPCID TAB 20 MG PO SCH (21:00)
[2017-03-23] MEDS: NORCO 10/325 TAB PO SCH (21:24)
[2017-03-23] MEDS: PROTONIX TAB 40 MG PO SCH (21:24)
[2017-03-23] MEDS: HumuLIN R SUBCUT PRN (21:26)
--- NOTE | 2017-03-23 21:59 | DR.H&P ---
H&P - History & Physical for Day of: H&P Date: 03/23/17 - Chief Complaint Chief Complaint: ABDOMINAL PAIN WITH N/V - Allergies Allergies/Adverse Reactions: Allergies Allergy/AdvReac Type Severity Reaction Status Date / Time codeine Allergy Verified 01/26/17 23:47 morphine Allergy Verified 01/26/17 23:47 - History of Present Illness History of Present Illness: THE PATIENT IS A 46YO BM WHO PRESENTED TO THE ED WITH COMPLAINT OF 1 DAY HISTORY OF ABDOMINAL PAIN WITH NAUSEA AND VOMITING. VOMITING IS COFFEE GROUND IN COLOR. DENIES DIARRHEA. STATES HIS BS HAS BEEN ELEVATED. DOES HAVE HISTORY OF GASTROPARESIS. - Past Medical History Past Medical History: Anxiety, Diabetes, Dyslipidemia, GERD, Hypertension Additional Medical History: Diabetic Neuropathy, Diabetic Gastroparesis, Hiatal Hernia, Gastric Ulcer, Gall Bladder Disease, Back Pain - Past Surgical History Surgical History: Ortho Surgery, Other Additional Surgical History: Right foot I&D - Family History Family Medical History: Diabetes Mellitus, Hypertension - Social History Does patient currently use any type of tobacco product: No Have you used tobacco products in the last 12 months: No Type of Tobacco Use: None Does any household member use tobacco: No Alcohol Use: None Drug Use: None - Medications Home Medications: Diazepam 1 - 2 tabs PO Q6H PRN 03/23/17 [History Confirmed 03/23/17] - Review of Systems Constitutional: Malaise Eyes: No Symptoms Reported ENT: No Symptoms Reported Respiratory: No Symptoms Reported Cardiovascular: No Symptoms Reported Gastrointestinal: Nausea, Vomiting, Abdominal Pain Genitourinary: No Symptoms Reported Musculoskeletal: No Symptoms Reported Skin: No Symptoms Reported Neurological: No Symptoms Reported - Physical Exam Vital Signs: Temperature 97.6 F Pulse Rate [Left Brachial] 104 Pulse Rate 109 Respiratory Rate 18 Blood Pressure [Right Arm] 157/77 Blood Pressure [Left Arm] 187/91 Blood Pressure [Left Radial 160/102 Artery] Blood Pressure 135/92 O2 Sat by Pulse Oximetry 99 Oriented: Normal Eyes: Normal Ear: Normal Nose: Normal Throat: Normal Respiratory: Clear Throughout Cardiovascular: Normal : Normal Auscultation: Bowel Sounds: Normal Palpation: Normal Tenderness: Epigastric, Moderate Skin: Normal Musculoskeletal: Normal Psychiatric: Normal Mood Description: Calm Affect: Normal Speech Pattern: Clear - Assessment/Plan (1) Abdominal pain Qualifiers: Abdominal location: epigastric Qualified Code(s): R10.13 - Epigastric pain Status: Acute Plan: ANTI-EMETICS, IV PAIN MED. (2) Dehydration, mild Status: Acute Plan: IV HYDRATION. MONITOR ELECTROLYTES. (3) Gastroparesis diabeticorum Status: Acute Plan: ANTI-EMETICS, IV PAIN MED. (4) Nausea & vomiting Qualifiers: Vomiting Intractability: intractable Status: Acute Plan: ANTI-EMETICS, IV PAIN MED. (5) Diabetes mellitus type 1 Qualifiers: Diabetes mellitus complication status: with other specified complication Status: Chronic Plan: MONITOR FSBS. SSRI COVERAGE.
[2017-03-23] MEDS ORDERED: HumaLOG SC SCH (22:00)
[2017-03-23 22:41] LABS: CREATINE KINASE 103 Units/L (39-308); CREATINE KINASE MB < 1.0 ng/mL (0-4.0); TROPONIN I < 0.02 ng/mL (0-1.5)
[2017-03-24 05:28] LABS: ALANINE AMINOTRANSFERASE 15 Units/L (12-78); ALBUMIN 3.3 g/dL (3.4-5.0); ALKALINE PHOSPHATASE 89 Units/L (46-116); ASPARTATE AMINO TRANSFERASE 10 Units/L (15-37); BLOOD UREA NITROGEN 16 mg/dL (7-18); CALCIUM 8.1 mg/dL (8.5-10.1); CARBON DIOXIDE 26.6 mmol/L (21-32); CHLORIDE 101 mmol/L (98-107); COR CA(FOR HYPOALB) 8.7 mg/dL (8.5-10.1); COR NA(FOR HYPERGLY) 142 mmol/L (136-145); CREATININE 1.26 mg/dL (0.70-1.30); SODIUM 138 mmol/L (136-145); TOTAL PROTEIN 6.8 g/dL (6.4-8.2); eGFR BLACK RACES > 60 (>60); eGFR NON BLACK RACES > 60 (>60)
[2017-03-24] MEDS: NS 1000 ML 1,000 ML IV PRN ×2 (05:46→11:25)
[2017-03-24 06:10] LABS: BASOPHILS % (AUTO) 0.4 % (0.2-1.0); EOSINOPHILS % (AUTO) 0.1 % (0.9-2.9); HEMATOCRIT 27.6 % (42.0-54.0); HEMOGLOBIN 9.2 g/dL (13.5-18.0); LYMPHOCYTES # (AUTO) 1.2 X10^3/uL (1.3-2.9); LYMPHOCYTES % (AUTO) 13.2 % (21.0-51.0); MEAN CORPUSCULAR HEMOGLOBIN 25.9 pg (27.0-34.0); MEAN CORPUSCULAR HGB CONC 33.3 g/dL (33.0-35.0); MEAN CORPUSCULAR VOLUME 77.7 fL (80.0-100.0); MEAN PLATELET VOLUME 7.7 fL (7.4-11.0); MONOCYTES # (AUTO) 0.6 x10^3/uL (0.3-0.8); NEUTROPHILS # (AUTO) 7.5 x10^3/uL (2.2-4.8); NEUTROPHILS % (AUTO) 80.3 % (42.0-75.0); PLATELET COUNT 302 X10^3/uL (150.0-450.0); RED BLOOD COUNT 3.55 X10^6/uL (4.7-6.0); RED CELL DISTRIBUTION WIDTH 15.3 % (11.6-16.5); WHITE BLOOD COUNT 9.4 X10^3/uL (3.6-10.0)
[2017-03-24 06:37] LABS: HYPOCHROMASIA SLIGHT; PLATELET MORPHOLOGY COMMENT NORMAL (NORMAL)
[2017-03-24] MEDS ORDERED: HumaLOG SC SCH (07:00)
[2017-03-24] MEDS: PROTONIX TAB 40 MG PO SCH (08:32)
[2017-03-24] MEDS: NORCO 10/325 TAB PO SCH (08:32)
[2017-03-24] MEDS ORDERED: CHECK PATCH XX SCH (09:00)
[2017-03-24] MEDS ORDERED: K-DUR TAB 20 MEQ PO SCH (09:00)
[2017-03-24] MEDS ORDERED: COZAAR PO SCH (09:00)
[2017-03-24] MEDS ORDERED: HEMOCYTE-PLUS PO SCH (09:00)
[2017-03-24] MEDS ORDERED: NS 1000 ML 1,000 ML IV SCH (10:00)
[2017-03-24 12:06] VITALS: BP 134/76
[2017-03-24] MEDS: HumuLIN R SUBCUT PRN (12:13)
== END 2017-03-24 12:35 | disposition home or self-care (01) ==
LOC: ER 08:23 → MED/SURG 12:16
PROVIDERS: ADMIT Internal Medicine; ATTEND Internal Medicine
DX: E10.43 Type 1 diabetes mellitus with diabetic autonomic (poly)neuropathy (principal); R10.84 Generalized abdominal pain; R11.2 Nausea with vomiting, unspecified; E86.0 Dehydration; R10.13 Epigastric pain; K21.9 Gastro-esophageal reflux disease without esophagitis; I10 Essential (primary) hypertension; E78.2 Mixed hyperlipidemia; R94.31 Abnormal electrocardiogram [ECG] [EKG]; D64.89 Other specified anemias; E10.65 Type 1 diabetes mellitus with hyperglycemia; R07.89 Other chest pain
CPT/HCPCS: 36415; 74022; 80053; 81001; 82009; 82150; 82550; 82553; 83690; 84484; 85025; 93005; 94760; 96365; 96367; 96374; 96375; 99284; G0378; J1815; J2175; J2405; J2550

== ENCOUNTER 2017-04-13 15:26 | Inpatient (IN) | payer MEDICAID ==
[2017-04-13 15:34] VITALS: BMI 25.4
[2017-04-13] MEDS ORDERED: NS 1000 ML 1,000 ML ONE ×2 (16:37→18:14)
[2017-04-13] MEDS ORDERED: NS 1000 ML 1,000 ML IV ONE (16:55)
[2017-04-13] MEDS ORDERED: PHENERGAN INJ 25 MG IV ONE (17:07)
[2017-04-13] MEDS ORDERED: DILAUDID INJ IVP ONE (17:07)
[2017-04-13] MEDS ORDERED: PROTONIX INJ 40 MG VIAL IVP ONE (17:07)
[2017-04-13 17:08] LABS: BASOPHILS # (AUTO) 0.1 X10^3/uL (0.0-0.1); BASOPHILS % (AUTO) 1.2 % (0.2-1.0); HEMATOCRIT 35.4 % (42.0-54.0); HEMOGLOBIN 11.4 g/dL (13.5-18.0); LYMPHOCYTES # (AUTO) 1.2 X10^3/uL (1.3-2.9); LYMPHOCYTES % (AUTO) 9.7 % (21.0-51.0); MEAN CORPUSCULAR HEMOGLOBIN 24.6 pg (27.0-34.0); MEAN CORPUSCULAR HGB CONC 32.2 g/dL (33.0-35.0); MEAN CORPUSCULAR VOLUME 76.6 fL (80.0-100.0); MEAN PLATELET VOLUME 8.6 fL (7.4-11.0); MONOCYTES # (AUTO) 0.3 x10^3/uL (0.3-0.8); MONOCYTES % (AUTO) 2.4 % (0.0-13.0); NEUTROPHILS # (AUTO) 10.3 x10^3/uL (2.2-4.8); NEUTROPHILS % (AUTO) 86.7 % (42.0-75.0); PLATELET COUNT 377 X10^3/uL (150.0-450.0); RED BLOOD COUNT 4.62 X10^6/uL (4.7-6.0); RED CELL DISTRIBUTION WIDTH 15.3 % (11.6-16.5); WHITE BLOOD COUNT 11.8 X10^3/uL (3.6-10.0)
[2017-04-13] MEDS ORDERED: DEMEROL INJ IVP ONE (17:10)
[2017-04-13] MEDS ORDERED: PHENERGAN INJ 25 MG ONE (17:11)
[2017-04-13] MEDS ORDERED: PROTONIX INJ 40 MG VIAL ONE (17:11)
[2017-04-13] MEDS ORDERED: DEMEROL INJ ONE (17:11)
[2017-04-13 17:14] LABS: SERUM ACETONE NEGATIVE (NEGATIVE)
[2017-04-13 17:17] LABS: ALANINE AMINOTRANSFERASE 18 Units/L (12-78); ALBUMIN 4.1 g/dL (3.4-5.0); ALKALINE PHOSPHATASE 131 Units/L (46-116); ASPARTATE AMINO TRANSFERASE 15 Units/L (15-37); BLOOD UREA NITROGEN 12 mg/dL (7-18); CALCIUM 9.6 mg/dL (8.5-10.1); CARBON DIOXIDE 25.7 mmol/L (21-32); CHLORIDE 99 mmol/L (98-107); COR NA(FOR HYPERGLY) 146 mmol/L (136-145); CREATININE 1.04 mg/dL (0.70-1.30); SODIUM 140 mmol/L (136-145); TOTAL PROTEIN 8.6 g/dL (6.4-8.2); eGFR BLACK RACES > 60 (>60); eGFR NON BLACK RACES > 60 (>60)
[2017-04-13 17:25] LABS: PLATELET MORPHOLOGY COMMENT NORMAL (NORMAL)
[2017-04-13 17:26] LABS: HYPOCHROMASIA SLIGHT; MICROCYTOSIS SLIGHT
[2017-04-13] MEDS ORDERED: APRESOLINE INJ 20 MG VIAL IVP ONE ×2 (18:07→20:35)
[2017-04-13] MEDS ORDERED: APRESOLINE INJ 20 MG VIAL ONE ×2 (18:08→20:36)
--- NOTE | 2017-04-13 18:59 | DR.GENAD ---
HPI - PCP Primary Care Physician: SAVANNAH - Complaint/Symptoms Chief Complaint Doctors Comments: Patient with a history of gastroparesis and not able to tolerate po. Chief Complaint:: PT STATES HE HAS BEEN N/V SINCE THIS AM. PT STATES HE HAS TOOK HIS HOME MEDS AND PHENERGAN. PT ALSO C/O WEAKNESS - Source History Provided: Patient - Mode of Arrival Mode of Arrival: Ambulatory - Timing Onset of Chief Complaint: 04/13/17 PMH - PMH Past Medical History: Yes Past Medical History: Anxiety, Diabetes, Dyslipidemia, GERD, Hypertension Past Surgical History: Yes Surgical History: Cholecystectomy, Ortho Surgery, Other Past Surgical History Comment: PORT-A-CATH - Family History History of Family Medical Conditions: Yes Family Medical History: Diabetes Mellitus, Hypertension - Social History Does patient currently use any type of tobacco product: No Have you used tobacco products in the last 12 months: No Type of Tobacco Use: None Does any household member use tobacco: No Alcohol Use: None Do you use any recreational Drugs:: No Lives With: Spouse - infectious screening In the last 2 months have you had wt loss of >10#?: NO Have you had fever, night sweats or hemotysis?: No Have you traveled outside the country in the last 6 months?: No Isolation: Standard ROS - Review of Systems Eyes: No Symptoms Reported ENTM: No Symptoms Reported Respiratoy: No Symptoms Reported Cardiovascular: No Symptoms Reported Gastrointestinal/Abdominal: No Symptoms Reported Genitourinary: No Symptoms Reported Neurological: No Symptoms Reported Musculoskeletal: No Symptoms Reported Integumentary: No Symptoms Reported Hematologic/Lymphatic: No Symptoms Reported Endocrine: No Symptoms Reported Psychiatric: No Symptoms Reported All Other Systems: Reviewed and Negative PE - Vital Signs Vitals: Temperature 97.5 F Pulse Rate [Left Brachial] 89 Pulse Rate 108 Respiratory Rate 18 Blood Pressure [Right Arm] 157/77 Blood Pressure [Left Arm] 213/116 Blood Pressure [Left Radial 160/102 Artery] Blood Pressure 204/107 O2 Sat by Pulse Oximetry 99 - General Limitations: No Limitations General Appearance: Alert - Head Head Exam: Normal Inspection, Atraumatic - Eyes Eye exam: Normal Appearance, PERRL, EOMI - ENT ENT Exam: Normal Exam External Ear Exam: Normal External Inspection TM/Canal Exam: Bilateral Normal Nose Exam: Normal Nose Exam Mouth Exam: Normal Inspection Throat Exam: Normal Inspection - Neck Neck Exam: Normal Inspection, Full ROM - Chest Chest Inspection: Normal Inspection - Respiratory Respiratory Exam: Normal Lung Sounds Bilat Respiratory Exam: Bilateral Clear to Auscultation - Cardiovascular Cardiovascular Exam: Regular Rate, Normal Rhythm - Abdominal Exam Abdominal Exam: Normal Inspection, Normal Bowel Sounds Abdominal Tenderness: Diffuse - Extremities Extremities Exam: Normal Inspection - Back Back Exam: Normal Inspection, Full ROM - Neurologic Neurological Exam: Alert, Oriented X3, CN II-XII Intact - Psychiatric Psychiatric Exam: Depressed - Skin Skin Exam: Warm, Dry, Intact Course - Treatment Treatment: see orders - Reevaluation 1st: Unchanged - Consultation Called: 19:05 (Dr Cohen agreed to admit for further evaluation and treatment) ROR - Labs Reviewed Result Diagrams: 04/13/17 16:48 04/13/17 16:48 Laboratory: WBC 11.8 X10^3/uL (3.6-10.0) H 04/13/17 16:48 RBC 4.62 X10^6/uL (4.7-6.0) L 04/13/17 16:48 Hgb 11.4 g/dL (13.5-18.0) L 04/13/17 16:48 Hct 35.4 % (42.0-54.0) L 04/13/17 16:48 MCV 76.6 fL (80.0-100.0) L 04/13/17 16:48 MCH 24.6 pg (27.0-34.0) L 04/13/17 16:48 MCHC 32.2 g/dL (33.0-35.0) L 04/13/17 16:48 RDW 15.3 % (11.6-16.5) 04/13/17 16:48 Plt Count 377 X10^3/uL (150.0-450.0) 04/13/17 16:48 Plt Count Comment Adequate (ADEQUATE) 04/13/17 16:48 MPV 8.6 fL (7.4-11.0) 04/13/17 16:48 Neut % 86.7 % (42.0-75.0) H 04/13/17 16:48 Lymph % 9.7 % (21.0-51.0) L 04/13/17 16:48 [place] % 2.4 % (0.0-13.0) 04/13/17 16:48 Eos % 0.0 % (0.9-2.9) L 04/13/17 16:48 Baso % 1.2 % (0.2-1.0) H 04/13/17 16:48 Neut # 10.3 x10^3/uL (2.2-4.8) H 04/13/17 16:48 Lymph # 1.2 X10^3/uL (1.3-2.9) L 04/13/17 16:48 [place] # 0.3 x10^3/uL (0.3-0.8) 04/13/17 16:48 Eos # 0.0 x10^3/uL (0.0-0.2) 04/13/17 16:48 Baso # 0.1 X10^3/uL (0.0-0.1) 04/13/17 16:48 Absolute Nucleated RBC 0.0 /100WBC 04/13/17 16:48 Plt Morphology Comment Normal (NORMAL) 04/13/17 16:48 RBC Morphology Abnormal (NORMAL) 04/13/17 16:48 Hypochromasia Slight A 04/13/17 16:48 Microcytosis Slight A 04/13/17 16:48 Sodium 140 mmol/L (136-145) 04/13/17 16:48 Corrected Sodium 146 mmol/L (136-145) H 04/13/17 16:48 Potassium 4.1 mmol/L (3.5-5.1) 04/13/17 16:48 Chloride 99 mmol/L (98-107) 04/13/17 16:48 Carbon Dioxide 25.7 mmol/L (21-32) 04/13/17 16:48 BUN 12 mg/dL (7-18) 04/13/17 16:48 Creatinine 1.04 mg/dL (0.70-1.30) 04/13/17 16:48 Est GFR (MDRD) Af Amer > 60 (>60) 04/13/17 16:48 Est GFR (MDRD) Non-Af > 60 (>60) 04/13/17 16:48 Glucose 365 mg/dL (65-99) H 04/13/17 16:48 Calcium 9.6 mg/dL (8.5-10.1) 04/13/17 16:48 Corrected Calcium TNP 04/13/17 16:48 Total Bilirubin 0.50 mg/dL (0.2-1.0) 04/13/17 16:48 AST 15 Units/L (15-37) 04/13/17 16:48 ALT 18 Units/L (12-78) 04/13/17 16:48 Alkaline Phosphatase 131 Units/L (46-116) H 04/13/17 16:48 C-Reactive Protein 2.60 mg/L (0-3.0) 04/13/17 16:48 Total Protein 8.6 g/dL (6.4-8.2) H 04/13/17 16:48 Albumin 4.1 g/dL (3.4-5.0) 04/13/17 16:48 Globulin 4.5 g/dL (2.5-4.5) 04/13/17 16:48 Albumin/Globulin Ratio 0.9 Ratio (1.1-2.1) L 04/13/17 16:48 HCG, Quant Cancelled 04/13/17 16:48 Acetone, Semi-Quant Negative (NEGATIVE) 04/13/17 16:48 - Diagnosis Discharge Problem: Gastroparesis diabeticorum - Discharge Plan Condition: Stable - Follow ups/Referrals Follow ups/Referrals: Williams Worthington [Primary Care Provider] - 3 days - Instructions
[2017-04-13] MEDS ORDERED: NS 1000 ML 1,000 ML IV SCH (19:00)
[2017-04-13] MEDS ORDERED: NS 1000 ML 1,000 ML with POTASSIUM CHLORIDE INJ 20 MEQ VIAL 20 MEQ IV SCH ×2 (20:00)
[2017-04-13] MEDS ORDERED: ZOFRAN INJ 4 MG VIAL 16 MG, ATIVAN INJ 2 MG VIAL 1 MG, DECADRON INJ 10 MG in NS 50 ML I... IV ONE (20:03)
[2017-04-13] MEDS ORDERED: ZOFRAN INJ 4 MG VIAL ONE (20:17)
[2017-04-13] MEDS ORDERED: DECADRON INJ PRESERVATIVE-FREE IM ONE (20:17)
[2017-04-13] MEDS ORDERED: NS 50 ML IV 50 ML IV ONE (20:17)
[2017-04-13] MEDS ORDERED: ATIVAN INJ 2 MG VIAL ONE (20:18)
[2017-04-13] MEDS: PROTONIX INJ 40 MG VIAL IVP SCH (23:06)
[2017-04-13] MEDS: HumuLIN R SUBCUT PRN (23:18)
[2017-04-14] MEDS: DEMEROL INJ IVP PRN ×4 (00:12→20:43)
[2017-04-14] MEDS: PHENERGAN INJ 25 MG IV PRN ×4 (00:14→20:43)
[2017-04-14] MEDS: NS + KCL 20 MEQ/L 1,000 ML IV SCH ×5 (00:16→18:13)
[2017-04-14 05:09] LABS: GASTRIC OCCULT BLOOD POSITIVE (NEGATIVE); PH 5
[2017-04-14] MEDS: HumuLIN R SUBCUT PRN ×3 (06:03→16:20)
[2017-04-14 06:18] LABS: BASOPHILS # (AUTO) 0.1 X10^3/uL (0.0-0.1); BASOPHILS % (AUTO) 0.7 % (0.2-1.0); HEMATOCRIT 34.2 % (42.0-54.0); HEMOGLOBIN 11.2 g/dL (13.5-18.0); LYMPHOCYTES # (AUTO) 0.5 X10^3/uL (1.3-2.9); LYMPHOCYTES % (AUTO) 5.1 % (21.0-51.0); MEAN CORPUSCULAR HEMOGLOBIN 25.2 pg (27.0-34.0); MEAN CORPUSCULAR HGB CONC 32.8 g/dL (33.0-35.0); MEAN CORPUSCULAR VOLUME 76.9 fL (80.0-100.0); MEAN PLATELET VOLUME 8.6 fL (7.4-11.0); MONOCYTES # (AUTO) 0.1 x10^3/uL (0.3-0.8); NEUTROPHILS # (AUTO) 9.9 x10^3/uL (2.2-4.8); NEUTROPHILS % (AUTO) 93.2 % (42.0-75.0); PLATELET COUNT 317 X10^3/uL (150.0-450.0); RED BLOOD COUNT 4.45 X10^6/uL (4.7-6.0); RED CELL DISTRIBUTION WIDTH 15.6 % (11.6-16.5); WHITE BLOOD COUNT 10.6 X10^3/uL (3.6-10.0)
[2017-04-14 06:29] LABS: ALANINE AMINOTRANSFERASE 16 Units/L (12-78); ALBUMIN 3.5 g/dL (3.4-5.0); ALKALINE PHOSPHATASE 117 Units/L (46-116); ASPARTATE AMINO TRANSFERASE 11 Units/L (15-37); BLOOD UREA NITROGEN 15 mg/dL (7-18); CARBON DIOXIDE 23.5 mmol/L (21-32); CHLORIDE 103 mmol/L (98-107); COR NA(FOR HYPERGLY) 146 mmol/L (136-145); CREATININE 1.08 mg/dL (0.70-1.30); SODIUM 140 mmol/L (136-145); TOTAL PROTEIN 7.8 g/dL (6.4-8.2); eGFR BLACK RACES > 60 (>60); eGFR NON BLACK RACES > 60 (>60)
[2017-04-14 07:10] LABS: PLATELET MORPHOLOGY COMMENT NORMAL (NORMAL)
[2017-04-14] MEDS: PROTONIX INJ 40 MG VIAL IVP SCH (09:12)
[2017-04-14 09:14] LABS: ABG BASE EXCESS 2.6 mmol/L (-2.0-2.0); ABG HCO3 27.2 mmol/L (22-26)
[2017-04-14 09:15] LABS: ABG ALLEN TEST POS
[2017-04-14] MEDS: PEPCID 20 MG IV PREMIX* 20 MG/50 ML BAG IV SCH ×2 (09:52→20:34)
--- NOTE | 2017-04-14 11:13 | DR.H&P ---
H&P - History & Physical for Day of: H&P Date: 04/13/17 - Chief Complaint Chief Complaint: nausea, vomiting, abdominal pain - Allergies Allergies/Adverse Reactions: Allergies Allergy/AdvReac Type Severity Reaction Status Date / Time codeine Allergy Verified 01/26/17 23:47 morphine Allergy Verified 01/26/17 23:47 - History of Present Illness History of Present Illness: Mr. Mayes is a 46 year old patient of ours who presented to the emergency room with reports of nausea, vomiting, and weakness that began this morning. Patient reports that symptoms have worsened throughout the day despite taking his home medications and Phenergan. is well known to us and is known to have a history of diabetic gastroparesis. Patient is not compliant with a diet plan that has been given to him on multiple occasions. Patient states that he has been unable to tolerate anything by mouth. On examination, lungs are clear to auscultation. Abdomen is round, soft, and noted with diffuse tenderness on palpation. Normal bowel sounds are noted in all quadrants. On arrival to the emergency room, patients vital signs were 97.5, 108, 20, 100% RA, 204/107. Labs were obtained. Abnormal lab values include the following: WBC 11.8, RBC 4.62, Hgb 11.4, Hct 35.4, MCV 76.6, MCh 24.6, MCHC 32.2, Sodium 146, Glucose 365, 386, Alk Phos 131, Total Protein 8.6, A/G Ratio 0.9. OTBS: 328, 420. Patient given Demerol 25mg IV and Phenergan 12.5mg IV with no improvement in symptoms. When rechecked, blood pressure was 213/116. Patient was given Apresoline 10mg IV x2 with a gradual decrease in blood pressure noted. Patient was admitted patient to the hospital for further treatment and evaluation. He was started on OTBS ACHS, Protonix 40mg IV daily, Humulin R sliding scale PRN, NS +20meq KCL @150ml/hr, Demerol 25mg IV Q6hr PRN, Phenergan 12.5mg IV Q6hr PRN, and Pepcid 20mg IV Q12hr. We planned to follow up with AM labs and continue to monitor patient. - Past Medical History Past Medical History: Anxiety, Diabetes, Dyslipidemia, GERD, Hypertension Additional Medical History: Diabetic Neuropathy, Diabetic Gastroparesis, Hiatal Hernia, Gastric Ulcer, Gall Bladder Disease, Back Pain - Past Surgical History Surgical History: Cholecystectomy, Ortho Surgery, Other Additional Surgical History: Right foot I&D - Family History Family Medical History: Diabetes Mellitus, Hypertension - Social History Does patient currently use any type of tobacco product: No Have you used tobacco products in the last 12 months: No Type of Tobacco Use: None Does any household member use tobacco: No Alcohol Use: None Drug Use: None - Review of Systems Constitutional: Weakness. denies: Fever, Chills Eyes: No Symptoms Reported. denies: Vision Change, Conjunctivae Inflammation, Eyelid Inflammation, Redness ENT: No Symptoms Reported. denies: Ear Pain, Ear Discharge, Nose Pain, Nose Congestion, Mouth Pain, Mouth Swelling, Throat Pain, Throat Swelling Respiratory: No Symptoms Reported. denies: See HPI, Cough, Dry, Shortness of Breath, Hemoptysis, SOB with Excertion, Pleuritic Pain, Sputum, Wheezing, Other Cardiovascular: No Symptoms Reported. denies: Chest Pain, See HPI, Palpitations , Orthopnea, Paroxysmal Noc. Dyspnea, Edema, Light Headedness, Other Gastrointestinal: See HPI, Nausea, Vomiting, Abdominal Pain. denies: Constipation, Melena, Hematochezia Genitourinary: No Symptoms Reported. denies: See HPI, Dysuria, Frequency, Incontinence, Hematuria, Retention, Other Musculoskeletal: No Symptoms Reported. denies: See HPI, Shoulder Pain, Arm Pain , Back Pain, Hand Pain, Leg Pain, Foot Pain, Neck Pain, Other Skin: No Symptoms Reported. denies: See HPI, Rash, Lesions, Jaundice, Bruising , Wound, Ecchymosis, Other Neurological: Weakness - Physical Exam Vital Signs: Temperature 97.6 F Pulse Rate [Left Brachial] 116 Pulse Rate 108 Respiratory Rate 20 Blood Pressure [Right Arm] 132/63 Blood Pressure [Left Arm] 213/116 Blood Pressure [Left Radial 160/102 Artery] Blood Pressure 204/107 O2 Sat by Pulse Oximetry 99 Oriented: Normal Eyes: Normal. negative: Blurred Vision, Diplopia, Discharge, Pain, Redness, Photophobia, Other Ear: Normal. negative: Right, Left, Swelling, Ecchymosis, Hemotypanum, Abrasion , Laceration Nose: Normal Throat: Normal. negative: Tonsillar Hypertrophy, Red, Exudate, Dry, Other Respiratory: Clear Throughout. negative: Diminished Throughout, Rhonchi Throughout, Rales Throughout, Wheezes Throughout, RUL Clear, RML Clear, RLL Clear, MARI Clear, LML Clear, LLL Clear, RUL Diminished, RML Diminished, RLL Diminished, MARI Diminished, LML Diminished, LLL Diminished, RUL Absent, RML Absent, RLL Absent, MARI Absent, LML Absent, LLL Absent, RUL Rhonchi, RML Rhonchi , RLL Rhonchi, MARI Rhonchi, LML Rhonchi, LLL Rhonchi, RUL Insp. Wheeze, RML Insp. Wheeze, RLL Insp. Wheeze, MARI Insp.Wheeze, LML Insp.Wheeze, LLL Insp.Wheeze, RUL Exp. Wheeze, RML Exp. Wheeze, RLL Exp. Wheeze, MARI Exp. Wheeze , LML Exp. Wheeze, LLL Exp. Wheeze, RUL Rales, RML Rales, RLL Rales, MARI Rales, LML Rales, LLL Rales, RUL Rub, RML Rub, RLL Rub, MARI Rub, LML Rub, LLL Rub, RUL Squeak, RML Squeak, RLL Squeak, MARI Squeak, LML Squeak, LLL Squeak Cardiovascular: Tachycardia. negative: Murmur, Edema : Normal. negative: Dysuria, Hematuria, Frequency, Discharge, Testicular Pain , Bleeding, , Other Auscultation: Bowel Sounds: Normal Palpation: Normal Tenderness: Diffuse, Moderate. negative: Rebound, Guarding, Rigidity Skin: Normal. negative: Decreased Turgur, Rash, Papular, Macular, Maculopapular , Vesicular, Pustular, Petechial, Red, Tender, Hot, Diaphoresis, Wound, Bruising , Ecchymosis, Other Musculoskeletal: Normal. negative: Right, Left, Shoulder, Clavicle, Arm, Elbow , Forearm, Wrist, Hand, Hip, Thigh, Knee, Leg, Ankle, Foot, Back:Thoracic, Back: Lumbar, Back:Midline, Back:Paraspinous, Pelvis, Swelling, Tender, Deformity, Pulse Deficit, Motor Deficit, Sensory Deficit, Instability, Crepitance Psychiatric: Normal Mood Description: Calm Affect: Normal Speech Pattern: Clear - Assessment/Plan (1) Diabetic gastroparalysis Status: Acute Plan: normal saline with 20meq kcl at 150 ml/hr, phenergan 12.5mg iv q6h prn, protonix 40mg iv daily, pepcid 20mg iv bid, continue to monitor
[2017-04-14] MEDS ORDERED: KLONOPIN TAB 1 MG PO PRN (11:27)
[2017-04-14] MEDS ORDERED: VALIUM PO PRN (11:27)
[2017-04-14] MEDS ORDERED: CATAPRES-TTS-3 TD SCH (12:00)
[2017-04-14] MEDS: NORCO 10/325 TAB PO SCH ×2 (13:09→20:33)
[2017-04-14] MEDS: HEMOCYTE-PLUS PO SCH (13:10)
[2017-04-14] MEDS ORDERED: HumaLOG SC SCH (14:00)
--- NOTE | 2017-04-14 21:02 | PCM.PROG ---
Progress Note - Progress Note for Day of Date: 04/14/17 - Subjective Subjective: WAS ADMITTED FOR DIABETIC GASTROPARESIS. TODAY, HE IS ALERT AND ORIENTED, LYING IN BED ON MORNING ROUNDS. HE CONTINUES WITH COMPLAINTS OF NAUSEA, VOMITING, AND ABDOMINAL PAIN. ON EXAMINATION, LUNGS ARE CLEAR TO AUSCULTATION. ABDOMEN IS ROUND, SOFT, AND NOTED WITH MODERATED DIFFUSE ABDOMINAL PAIN. BOWEL SOUNDS ARE HYPERACTIVE. HIS VITAL SIGNS THIS MORNING ARE 97.6-116-20-99%-132/63. LABS WERE OBTAINED. ABNORMAL LAB VALUES INCLUDE THE FOLLOWING: WBC 10.6, RBC 4.45, HGB 11.2, HCT 34.2, MVC 76.9, MCH 25.2, MCHC 32.8 , NEUT% 93.2, LYMPH% 5.1, EOS % 0.0, NEUT# 9.9, LYMPH# 0.5, MONO# 0.1. NUETROPHILS% 89, LYMPHOCYTES % 7, MONOCYTES % 2, GLUCOSE 365, ALKALINE PHOSPHATASE 131, TOTAL PROTEIN 8.6, A/G RATIO 0.9. A BLOOD GAS WAS OBTAINED TODAY AND REPORTED PH 7.430, PC02 41, PO2 90, HC03 27.2, BASE EXCESS 2.6. GASTRIC OCCULT BLOOD WAS POSITIVE. TODAY, WE PLANNED TO START PEPCID 20MG IV BID. OTHERWISE WE WILL CONTINUE WITH CURRENT PLAN OF CARE. WE WILL RESUME HOME MEDICATIONS. WE PLAN TO FOLLOW UP WITH AM LABS AND CONTINUE TO MONITOR PATIENT. - Past Medical Family Social History Past Med/Fam/Surg Hx: No changes since H&P Allergies: Allergies codeine Allergy (Verified 01/26/17 23:47) morphine Allergy (Verified 01/26/17 23:47) - Review of Systems ROS: No change since H&P - Vital Signs and I&O's Vital Signs: Temperature 97.9 F Pulse Rate [Left Brachial] 108 Pulse Rate 108 Respiratory Rate 18 Blood Pressure [Right Arm] 148/83 Blood Pressure [Left Arm] 213/116 Blood Pressure [Left Radial 160/102 Artery] Blood Pressure 204/107 O2 Sat by Pulse Oximetry 99 Intake and Output: Intake & Output 04/12/17 04/13/17 04/14/17 04/15/17 12:59 11:59 11:59 11:59 Intake Total 400 0 Balance 400 0 - Physical Exam Oriented: Normal Eyes: Normal. negative: Blurred Vision, Diplopia, Discharge, Pain, Redness, Photophobia, Other Ear: Normal. negative: Right, Left, Swelling, Ecchymosis, Hemotypanum, Abrasion , Laceration Nose: Normal Throat: Normal. negative: Tonsillar Hypertrophy, Red, Exudate, Dry, Other Respiratory: Normal Cardiovascular: Tachycardia. negative: Murmur, Edema : Normal. negative: Dysuria, Hematuria, Frequency, Discharge, Testicular Pain , Bleeding, , Other Auscultation: Bowel Sounds: Increased Palpation: Normal Tenderness: Diffuse, Moderate. negative: Rebound, Guarding, Rigidity Skin: Normal. negative: Decreased Turgur, Rash, Papular, Macular, Maculopapular , Vesicular, Pustular, Petechial, Red, Tender, Hot, Diaphoresis, Wound, Bruising , Ecchymosis, Other Musculoskeletal: Normal. negative: Right, Left, Shoulder, Clavicle, Arm, Elbow , Forearm, Wrist, Hand, Hip, Thigh, Knee, Leg, Ankle, Foot, Back:Thoracic, Back: Lumbar, Back:Midline, Back:Paraspinous, Pelvis, Swelling, Tender, Deformity, Pulse Deficit, Motor Deficit, Sensory Deficit, Instability, Crepitance Psychiatric: Normal Mood Description: Calm Affect: Normal Speech Pattern: Clear, Appropriate - Laboratory and Diagnostics Result Diagrams: 04/15/17 03:50 04/15/17 03:50 Labs: Laboratory WBC 10.6 X10^3/uL (3.6-10.0) H 04/14/17 05:32 RBC 4.45 X10^6/uL (4.7-6.0) L 04/14/17 05:32 Hgb 11.2 g/dL (13.5-18.0) L 04/14/17 05:32 Hct 34.2 % (42.0-54.0) L 04/14/17 05:32 MCV 76.9 fL (80.0-100.0) L 04/14/17 05:32 MCH 25.2 pg (27.0-34.0) L 04/14/17 05:32 MCHC 32.8 g/dL (33.0-35.0) L 04/14/17 05:32 RDW 15.6 % (11.6-16.5) 04/14/17 05:32 Plt Count 317 X10^3/uL (150.0-450.0) 04/14/17 05:32 Plt Count Comment Adequate (ADEQUATE) 04/14/17 05:32 MPV 8.6 fL (7.4-11.0) 04/14/17 05:32 Neut % 93.2 % (42.0-75.0) H 04/14/17 05:32 Lymph % 5.1 % (21.0-51.0) L 04/14/17 05:32 [place] % 1.0 % (0.0-13.0) 04/14/17 05:32 Eos % 0.0 % (0.9-2.9) L 04/14/17 05:32 Baso % 0.7 % (0.2-1.0) 04/14/17 05:32 Neut # 9.9 x10^3/uL (2.2-4.8) H 04/14/17 05:32 Lymph # 0.5 X10^3/uL (1.3-2.9) L 04/14/17 05:32 [place] # 0.1 x10^3/uL (0.3-0.8) L 04/14/17 05:32 Eos # 0.0 x10^3/uL (0.0-0.2) 04/14/17 05:32 Baso # 0.1 X10^3/uL (0.0-0.1) 04/14/17 05:32 Absolute Nucleated RBC 0.0 /100WBC 04/14/17 05:32 Total Counted 100 04/14/17 05:32 Neutrophils % (Manual) 89 % (39-76) H 04/14/17 05:32 Lymphocytes % (Manual) 7 % (13-43) L 04/14/17 05:32 Monocytes % (Manual) 2 % (4-9) L 04/14/17 05:32 Eosinophils % (Manual) 2 % (0-6) 04/14/17 05:32 Plt Morphology Comment Normal (NORMAL) 04/14/17 05:32 RBC Morphology Normal (NORMAL) 04/14/17 05:32 Hypochromasia Slight A 04/13/17 16:48 Microcytosis Slight A 04/13/17 16:48 Sample Site Lt rad 04/14/17 08:56 ABG pH 7.430 (7.35-7.45) 04/14/17 08:56 ABG pCO2 41.0 mmHg (35.0-45.0) 04/14/17 08:56 ABG pO2 90.0 mmHg (80.0-100.0) 04/14/17 08:56 ABG HCO3 27.2 mmol/L (22-26) H 04/14/17 08:56 ABG O2 Saturation 97.0 % (90-100) 04/14/17 08:56 ABG Base Excess 2.6 mmol/L (-2.0-2.0) H 04/14/17 08:56 Wang Test Pos 04/14/17 08:56 A-a Gradient 8.0 mmHg 04/14/17 08:56 FiO2 21.000 04/14/17 08:56 Blood Gas Comments Marleny,mm 04/14/17 08:56 Sodium 140 mmol/L (136-145) 04/14/17 05:32 Corrected Sodium 146 mmol/L (136-145) H 04/14/17 05:32 Potassium 4.4 mmol/L (3.5-5.1) 04/14/17 05:32 Chloride 103 mmol/L (98-107) 04/14/17 05:32 Carbon Dioxide 23.5 mmol/L (21-32) 04/14/17 05:32 BUN 15 mg/dL (7-18) 04/14/17 05:32 Creatinine 1.08 mg/dL (0.70-1.30) 04/14/17 05:32 Est GFR (MDRD) Af Amer > 60 (>60) 04/14/17 05:32 Est GFR (MDRD) Non-Af > 60 (>60) 04/14/17 05:32 Glucose 364 mg/dL (65-99) H 04/14/17 05:32 POC Glucose (mg/dL) 113 mg/dL (65-99) H 04/14/17 20:29 Calcium 9.0 mg/dL (8.5-10.1) 04/14/17 05:32 Corrected Calcium TNP 04/14/17 05:32 Total Bilirubin 0.40 mg/dL (0.2-1.0) 04/14/17 05:32 AST 11 Units/L (15-37) L 04/14/17 05:32 ALT 16 Units/L (12-78) 04/14/17 05:32 Alkaline Phosphatase 117 Units/L (46-116) H 04/14/17 05:32 C-Reactive Protein 2.60 mg/L (0-3.0) 04/13/17 16:48 Total Protein 7.8 g/dL (6.4-8.2) 04/14/17 05:32 Albumin 3.5 g/dL (3.4-5.0) 04/14/17 05:32 Globulin 4.3 g/dL (2.5-4.5) 04/14/17 05:32 Albumin/Globulin Ratio 0.8 Ratio (1.1-2.1) L 04/14/17 05:32 HCG, Quant Cancelled 04/13/17 16:48 Gastric Occult Blood Positive (NEGATIVE) A 04/14/17 05:00 Stool pH 5 04/14/17 05:00 Acetone, Semi-Quant Negative (NEGATIVE) 04/13/17 16:48 - Plan (1) Diabetic gastroparalysis Status: Acute Plan: normal saline with 20meq kcl at 150 ml/hr, phenergan 12.5mg iv q6h prn, protonix 40mg iv daily, pepcid 20mg iv bid, continue to monitor (2) Abdominal pain Status: Acute Qualifiers: Abdominal location: generalized Qualified Code(s): R10.84 - Generalized abdominal pain Plan: CONTINUE DEMEROL 25MG IVP Q6H PRN, CONTINUE TO MONITOR (3) History of anemia Status: Chronic Plan: CONTINUE HEMOCYTE, CONTINUE TO MONITOR (4) GERD (gastroesophageal reflux disease) Status: Chronic Qualifiers: Esophagitis presence: esophagitis presence not specified Qualified Code(s) : K21.9 - Gastro-esophageal reflux disease without esophagitis Plan: CONTINUE PEPCID, CONTINUE TO MONITOR (5) Hypertension Status: Chronic Qualifiers: Hypertension type: essential hypertension Qualified Code(s): I15.9 - Secondary hypertension, unspecified Plan: CONTINUE COZAAR, CONTINUE CATAPRES PATCH, CONTINUE TO MONITOR (6) Diabetes mellitus type 1 Status: Chronic Qualifiers: Diabetes mellitus complication status: with other specified complication Plan: CONTINUE HUMALOG 7UNITS SC TIDWM, CONTINUE HUMULIN R SLIDING SCALE, CHECK OTBS, CONTINUE TO MONITOR
[2017-04-15] MEDS: NS + KCL 20 MEQ/L 1,000 ML IV SCH ×3 (00:51→14:06)
[2017-04-15] MEDS: PHENERGAN INJ 25 MG IV PRN ×4 (03:54→20:49)
[2017-04-15] MEDS: DEMEROL INJ IVP PRN ×3 (03:55→20:43)
[2017-04-15 05:20] LABS: ALANINE AMINOTRANSFERASE 18 Units/L (12-78); ALBUMIN 3.6 g/dL (3.4-5.0); ALKALINE PHOSPHATASE 110 Units/L (46-116); ASPARTATE AMINO TRANSFERASE 13 Units/L (15-37); BLOOD UREA NITROGEN 15 mg/dL (7-18); CALCIUM 8.7 mg/dL (8.5-10.1); CARBON DIOXIDE 23.8 mmol/L (21-32); CHLORIDE 106 mmol/L (98-107); COR NA(FOR HYPERGLY) 146 mmol/L (136-145); CREATININE 0.88 mg/dL (0.70-1.30); SODIUM 144 mmol/L (136-145); TOTAL PROTEIN 7.6 g/dL (6.4-8.2); eGFR BLACK RACES > 60 (>60); eGFR NON BLACK RACES > 60 (>60)
[2017-04-15] MEDS: HumuLIN R SUBCUT PRN ×2 (05:40→11:47)
[2017-04-15 06:15] LABS: BASOPHILS % (AUTO) 0.1 % (0.2-1.0); HEMATOCRIT 33.8 % (42.0-54.0); HEMOGLOBIN 10.9 g/dL (13.5-18.0); LYMPHOCYTES # (AUTO) 1.4 X10^3/uL (1.3-2.9); LYMPHOCYTES % (AUTO) 8.3 % (21.0-51.0); MEAN CORPUSCULAR HEMOGLOBIN 24.6 pg (27.0-34.0); MEAN CORPUSCULAR HGB CONC 32.2 g/dL (33.0-35.0); MEAN CORPUSCULAR VOLUME 76.4 fL (80.0-100.0); MEAN PLATELET VOLUME 8.9 fL (7.4-11.0); MONOCYTES # (AUTO) 0.9 x10^3/uL (0.3-0.8); MONOCYTES % (AUTO) 5.4 % (0.0-13.0); NEUTROPHILS % (AUTO) 86.2 % (42.0-75.0); PLATELET COUNT 336 X10^3/uL (150.0-450.0); RED BLOOD COUNT 4.43 X10^6/uL (4.7-6.0); RED CELL DISTRIBUTION WIDTH 15.9 % (11.6-16.5); WHITE BLOOD COUNT 17.4 X10^3/uL (3.6-10.0)
[2017-04-15] MEDS: HumaLOG SC SCH ×3 (06:28→16:51)
[2017-04-15 06:55] LABS: ANISOCYTOSIS SLIGHT; HYPOCHROMASIA SLIGHT; PLATELET MORPHOLOGY COMMENT NORMAL (NORMAL)
[2017-04-15] MEDS: COZAAR PO SCH (08:12)
[2017-04-15] MEDS: HEMOCYTE-PLUS PO SCH (08:12)
[2017-04-15] MEDS: NORCO 10/325 TAB PO SCH ×2 (08:13→20:31)
[2017-04-15] MEDS: PROTONIX INJ 40 MG VIAL IVP SCH (08:13)
[2017-04-15] MEDS: PEPCID 20 MG IV PREMIX* 20 MG/50 ML BAG IV SCH ×2 (08:13→20:31)
--- NOTE | 2017-04-15 12:12 | RAD ---
Examination: Abdomen with chest History: Abdominal pain and vomiting Comparison reference: 03/23/2017 Findings: The PA chest is normal. There is no evidence for pleural fluid, cardiac enlargement or pneu moperitoneum. In the abdomen, there is gaseous distention of segmental loops of bowel in the upper ab domen. There is a paucity of distal colon gas. No ascites or pathologic calcification is noted. There are surgical clips in the right upper quadrant. Impression: Normal PA chest. Intestinal gas pattern is most consistent with ileus, although follow-up imaging should be considered if developing bowel obstruction is a clinical concern. Reported By:
[2017-04-16] MEDS: NS + KCL 20 MEQ/L 1,000 ML IV SCH ×4 (03:21→18:19)
[2017-04-16 05:21] LABS: BASOPHILS % (AUTO) 0.5 % (0.2-1.0); HEMATOCRIT 36.2 % (42.0-54.0); HEMOGLOBIN 11.8 g/dL (13.5-18.0); LYMPHOCYTES # (AUTO) 1.4 X10^3/uL (1.3-2.9); LYMPHOCYTES % (AUTO) 12.5 % (21.0-51.0); MEAN CORPUSCULAR HEMOGLOBIN 24.9 pg (27.0-34.0); MEAN CORPUSCULAR HGB CONC 32.6 g/dL (33.0-35.0); MEAN CORPUSCULAR VOLUME 76.4 fL (80.0-100.0); MEAN PLATELET VOLUME 8.7 fL (7.4-11.0); MONOCYTES # (AUTO) 0.5 x10^3/uL (0.3-0.8); MONOCYTES % (AUTO) 4.8 % (0.0-13.0); NEUTROPHILS % (AUTO) 82.2 % (42.0-75.0); PLATELET COUNT 341 X10^3/uL (150.0-450.0); RED BLOOD COUNT 4.74 X10^6/uL (4.7-6.0); RED CELL DISTRIBUTION WIDTH 15.6 % (11.6-16.5); WHITE BLOOD COUNT 10.9 X10^3/uL (3.6-10.0)
[2017-04-16 05:25] LABS: ALANINE AMINOTRANSFERASE 19 Units/L (12-78); ALBUMIN 3.7 g/dL (3.4-5.0); ALKALINE PHOSPHATASE 117 Units/L (46-116); ASPARTATE AMINO TRANSFERASE 26 Units/L (15-37); BLOOD UREA NITROGEN 12 mg/dL (7-18); CALCIUM 8.4 mg/dL (8.5-10.1); CARBON DIOXIDE 23.3 mmol/L (21-32); CHLORIDE 101 mmol/L (98-107); COR NA(FOR HYPERGLY) 141 mmol/L (136-145); CREATININE 0.85 mg/dL (0.70-1.30); SODIUM 139 mmol/L (136-145); eGFR BLACK RACES > 60 (>60); eGFR NON BLACK RACES > 60 (>60)
[2017-04-16] MEDS: HumuLIN R SUBCUT PRN ×2 (05:40→22:16)
[2017-04-16 05:45] LABS: HYPOCHROMASIA SLIGHT; MICROCYTOSIS SLIGHT; PLATELET MORPHOLOGY COMMENT NORMAL (NORMAL)
[2017-04-16] MEDS: HumaLOG SC SCH ×3 (06:05→17:04)
[2017-04-16] MEDS: HEMOCYTE-PLUS PO SCH (08:37)
[2017-04-16] MEDS: NORCO 10/325 TAB PO SCH ×2 (08:37→20:48)
[2017-04-16] MEDS: PROTONIX INJ 40 MG VIAL IVP SCH (08:37)
[2017-04-16] MEDS: PEPCID 20 MG IV PREMIX* 20 MG/50 ML BAG IV SCH ×2 (08:37→20:48)
[2017-04-16] MEDS: COZAAR PO SCH (08:37)
--- NOTE | 2017-04-16 14:01 | PCM.PROG ---
Progress Note - Subjective Subjective: WAS ADMITTED FOR DIABETIC GASTROPARESIS. TODAY, HE IS ALERT AND ORIENTED, LYING IN BED ON MORNING ROUNDS. HE CONTINUES WITH COMPLAINTS OF NAUSEA, VOMITING, AND ABDOMINAL PAIN. ON EXAMINATION, LUNGS ARE CLEAR TO AUSCULTATION. ABDOMEN IS ROUND, SOFT, AND CONTINUES WITH MODERATE DIFFUSE ABDOMINAL PAIN. BOWEL SOUNDS ARE HYPERACTIVE. THERE IS AN EMISIS BAG NOTED AT BESIDE WITH BILE. PATIENTS VITAL SIGNS THIS MORNING ARE 97.9-120-18- 99%-176/101. LABS WERE OBTAINED. ABNORMAL LAB VALUES INCLUDE THE FOLLOWING: WBC 17.4, RBC 4.43, HGB 10.9, HCT 33.8, GLUCOSE 197, AST 13, A/G RATIO 0.9. AN ABDOMINAL SERIES WAS OBTAINED AND REPORTED INTESTINAL GAS PATTERN MOST CONSISTENT WITH ILEUS. PATIENT REQUESTED ICE CHIPS FOR DRY THROAT. PATIENT HAS BLOOD PRESSURE MEDICINE ORDERED TO RESUME TODAY. TODAY, WE WILL CONTINUE WITH CURRENT PLAN OF CARE. WE PLAN TO FOLLOW UP WITH AM LABS AND CONTINUE TO MONITOR PATIENT. - Past Medical Family Social History Past Med/Fam/Surg Hx: No changes since H&P Allergies: Allergies codeine Allergy (Verified 01/26/17 23:47) morphine Allergy (Verified 01/26/17 23:47) - Review of Systems ROS: No change since H&P - Vital Signs and I&O's Vital Signs: Temperature 97.6 F Pulse Rate [Left Brachial] 104 Pulse Rate 108 Respiratory Rate 20 Blood Pressure [Right Arm] 119/66 Blood Pressure [Left Arm] 170/95 Blood Pressure [Left Radial 160/102 Artery] Blood Pressure 204/107 O2 Sat by Pulse Oximetry 98 Intake and Output: Intake & Output 04/14/17 04/15/17 04/16/17 04/17/17 11:59 11:59 11:59 11:59 Intake Total 400 0 2000 Balance 400 0 1999 - Physical Exam Oriented: Normal Eyes: Normal. negative: Blurred Vision, Diplopia, Discharge, Pain, Redness, Photophobia, Other Ear: Normal. negative: Right, Left, Swelling, Ecchymosis, Hemotypanum, Abrasion , Laceration Nose: Normal Throat: Normal. negative: Tonsillar Hypertrophy, Red, Exudate, Dry, Other Respiratory: Normal Cardiovascular: Tachycardia. negative: Murmur, Edema : Normal. negative: Dysuria, Hematuria, Frequency, Discharge, Testicular Pain , Bleeding, , Other Auscultation: Bowel Sounds: Increased Palpation: Normal Tenderness: Diffuse, Moderate. negative: Rebound, Guarding, Rigidity Skin: Normal. negative: Decreased Turgur, Rash, Papular, Macular, Maculopapular , Vesicular, Pustular, Petechial, Red, Tender, Hot, Diaphoresis, Wound, Bruising , Ecchymosis, Other Musculoskeletal: Normal. negative: Right, Left, Shoulder, Clavicle, Arm, Elbow , Forearm, Wrist, Hand, Hip, Thigh, Knee, Leg, Ankle, Foot, Back:Thoracic, Back: Lumbar, Back:Midline, Back:Paraspinous, Pelvis, Swelling, Tender, Deformity, Pulse Deficit, Motor Deficit, Sensory Deficit, Instability, Crepitance Psychiatric: Normal Mood Description: Calm Affect: Normal Speech Pattern: Clear, Appropriate - Laboratory and Diagnostics Result Diagrams: 04/16/17 03:41 04/16/17 03:41 Labs: Laboratory WBC 10.9 X10^3/uL (3.6-10.0) H 04/16/17 03:41 RBC 4.74 X10^6/uL (4.7-6.0) 04/16/17 03:41 Hgb 11.8 g/dL (13.5-18.0) L 04/16/17 03:41 Hct 36.2 % (42.0-54.0) L 04/16/17 03:41 MCV 76.4 fL (80.0-100.0) L 04/16/17 03:41 MCH 24.9 pg (27.0-34.0) L 04/16/17 03:41 MCHC 32.6 g/dL (33.0-35.0) L 04/16/17 03:41 RDW 15.6 % (11.6-16.5) 04/16/17 03:41 Plt Count 341 X10^3/uL (150.0-450.0) 04/16/17 03:41 Plt Count Comment Adequate (ADEQUATE) 04/16/17 03:41 MPV 8.7 fL (7.4-11.0) 04/16/17 03:41 Neut % 82.2 % (42.0-75.0) H 04/16/17 03:41 Lymph % 12.5 % (21.0-51.0) L 04/16/17 03:41 [place] % 4.8 % (0.0-13.0) 04/16/17 03:41 Eos % 0.0 % (0.9-2.9) L 04/16/17 03:41 Baso % 0.5 % (0.2-1.0) 04/16/17 03:41 Neut # 9.0 x10^3/uL (2.2-4.8) H 04/16/17 03:41 Lymph # 1.4 X10^3/uL (1.3-2.9) 04/16/17 03:41 [place] # 0.5 x10^3/uL (0.3-0.8) 04/16/17 03:41 Eos # 0.0 x10^3/uL (0.0-0.2) 04/16/17 03:41 Baso # 0.0 X10^3/uL (0.0-0.1) 04/16/17 03:41 Absolute Nucleated RBC 0.1 /100WBC 04/16/17 03:41 Total Counted 100 04/14/17 05:32 Neutrophils % (Manual) 89 % (39-76) H 04/14/17 05:32 Lymphocytes % (Manual) 7 % (13-43) L 04/14/17 05:32 Monocytes % (Manual) 2 % (4-9) L 04/14/17 05:32 Eosinophils % (Manual) 2 % (0-6) 04/14/17 05:32 Plt Morphology Comment Normal (NORMAL) 04/16/17 03:41 RBC Morphology Abnormal (NORMAL) 04/16/17 03:41 Hypochromasia Slight A 04/16/17 03:41 Anisocytosis Slight A 04/15/17 03:50 Microcytosis Slight A 04/16/17 03:41 Sample Site Lt rad 04/14/17 08:56 ABG pH 7.430 (7.35-7.45) 04/14/17 08:56 ABG pCO2 41.0 mmHg (35.0-45.0) 04/14/17 08:56 ABG pO2 90.0 mmHg (80.0-100.0) 04/14/17 08:56 ABG HCO3 27.2 mmol/L (22-26) H 04/14/17 08:56 ABG O2 Saturation 97.0 % (90-100) 04/14/17 08:56 ABG Base Excess 2.6 mmol/L (-2.0-2.0) H 04/14/17 08:56 Wang Test Pos 04/14/17 08:56 A-a Gradient 8.0 mmHg 04/14/17 08:56 FiO2 21.000 04/14/17 08:56 Blood Gas Comments bryn Farmer 04/14/17 08:56 Sodium 139 mmol/L (136-145) 04/16/17 03:41 Corrected Sodium 141 mmol/L (136-145) 04/16/17 03:41 Potassium 3.8 mmol/L (3.5-5.1) 04/16/17 03:41 Chloride 101 mmol/L (98-107) 04/16/17 03:41 Carbon Dioxide 23.3 mmol/L (21-32) 04/16/17 03:41 BUN 12 mg/dL (7-18) 04/16/17 03:41 Creatinine 0.85 mg/dL (0.70-1.30) 04/16/17 03:41 Est GFR (MDRD) Af Amer > 60 (>60) 04/16/17 03:41 Est GFR (MDRD) Non-Af > 60 (>60) 04/16/17 03:41 Glucose 175 mg/dL (65-99) H 04/16/17 03:41 POC Glucose (mg/dL) 139 mg/dL (65-99) H 04/16/17 11:18 Calcium 8.4 mg/dL (8.5-10.1) L 04/16/17 03:41 Corrected Calcium TNP 04/16/17 03:41 Total Bilirubin 0.70 mg/dL (0.2-1.0) 04/16/17 03:41 AST 26 Units/L (15-37) 04/16/17 03:41 ALT 19 Units/L (12-78) 04/16/17 03:41 Alkaline Phosphatase 117 Units/L (46-116) H 04/16/17 03:41 C-Reactive Protein 2.60 mg/L (0-3.0) 04/13/17 16:48 Total Protein 8.0 g/dL (6.4-8.2) 04/16/17 03:41 Albumin 3.7 g/dL (3.4-5.0) 04/16/17 03:41 Globulin 4.3 g/dL (2.5-4.5) 04/16/17 03:41 Albumin/Globulin Ratio 0.9 Ratio (1.1-2.1) L 04/16/17 03:41 HCG, Quant Cancelled 04/13/17 16:48 Gastric Occult Blood Positive (NEGATIVE) A 04/14/17 05:00 Stool pH 5 04/14/17 05:00 Acetone, Semi-Quant Negative (NEGATIVE) 04/13/17 16:48 - Plan (1) Diabetic gastroparalysis Status: Acute Plan: normal saline with 20meq kcl at 150 ml/hr, phenergan 12.5mg iv q6h prn, protonix 40mg iv daily, pepcid 20mg iv bid, continue to monitor (2) Abdominal pain Status: Acute Qualifiers: Abdominal location: generalized Qualified Code(s): R10.84 - Generalized abdominal pain Plan: CONTINUE DEMEROL 25MG IVP Q6H PRN, CONTINUE TO MONITOR (3) History of anemia Status: Chronic Plan: CONTINUE HEMOCYTE, CONTINUE TO MONITOR (4) GERD (gastroesophageal reflux disease) Status: Chronic Qualifiers: Esophagitis presence: esophagitis presence not specified Qualified Code(s) : K21.9 - Gastro-esophageal reflux disease without esophagitis Plan: CONTINUE PEPCID, CONTINUE TO MONITOR (5) Hypertension Status: Chronic Qualifiers: Hypertension type: essential hypertension Qualified Code(s): I15.9 - Secondary hypertension, unspecified Plan: CONTINUE COZAAR, CONTINUE CATAPRES PATCH, CONTINUE TO MONITOR (6) Diabetes mellitus type 1 Status: Chronic Qualifiers: Diabetes mellitus complication status: with other specified complication Plan: CONTINUE HUMALOG 7UNITS SC TIDWM, CONTINUE HUMULIN R SLIDING SCALE, CHECK OTBS, CONTINUE TO MONITOR
[2017-04-17] MEDS: NS + KCL 20 MEQ/L 1,000 ML IV SCH (02:28)
[2017-04-17] MEDS: COLACE CAP 100 MG PO SCH ×2 (02:32→21:04)
[2017-04-17 05:58] LABS: BASOPHILS % (AUTO) 0.6 % (0.2-1.0); EOSINOPHILS % (AUTO) 0.5 % (0.9-2.9); HEMATOCRIT 28.4 % (42.0-54.0); HEMOGLOBIN 9.4 g/dL (13.5-18.0); LYMPHOCYTES # (AUTO) 2.5 X10^3/uL (1.3-2.9); LYMPHOCYTES % (AUTO) 35.8 % (21.0-51.0); MEAN CORPUSCULAR HGB CONC 33.3 g/dL (33.0-35.0); MEAN CORPUSCULAR VOLUME 75.1 fL (80.0-100.0); MEAN PLATELET VOLUME 8.4 fL (7.4-11.0); MONOCYTES # (AUTO) 0.7 x10^3/uL (0.3-0.8); MONOCYTES % (AUTO) 9.9 % (0.0-13.0); NEUTROPHILS # (AUTO) 3.7 x10^3/uL (2.2-4.8); NEUTROPHILS % (AUTO) 53.2 % (42.0-75.0); PLATELET COUNT 248 X10^3/uL (150.0-450.0); RED BLOOD COUNT 3.78 X10^6/uL (4.7-6.0); RED CELL DISTRIBUTION WIDTH 14.7 % (11.6-16.5)
[2017-04-17 06:12] LABS: ALANINE AMINOTRANSFERASE 15 Units/L (12-78); ALBUMIN 2.6 g/dL (3.4-5.0); ALKALINE PHOSPHATASE 82 Units/L (46-116); ASPARTATE AMINO TRANSFERASE 18 Units/L (15-37); BLOOD UREA NITROGEN 10 mg/dL (7-18); CALCIUM 7.8 mg/dL (8.5-10.1); CARBON DIOXIDE 26.1 mmol/L (21-32); CHLORIDE 106 mmol/L (98-107); COR CA(FOR HYPOALB) 8.9 mg/dL (8.5-10.1); COR NA(FOR HYPERGLY) 139 mmol/L (136-145); CREATININE 0.84 mg/dL (0.70-1.30); SODIUM 139 mmol/L (136-145); TOTAL PROTEIN 5.7 g/dL (6.4-8.2); eGFR BLACK RACES > 60 (>60); eGFR NON BLACK RACES > 60 (>60)
[2017-04-17 06:45] LABS: HYPOCHROMASIA 1+; PLATELET MORPHOLOGY COMMENT NORMAL (NORMAL)
[2017-04-17] MEDS: PEPCID 20 MG IV PREMIX* 20 MG/50 ML BAG IV SCH ×2 (08:44→21:05)
[2017-04-17] MEDS: PROTONIX INJ 40 MG VIAL IVP SCH (08:44)
[2017-04-17] MEDS: HumaLOG SC SCH ×3 (08:46→16:43)
[2017-04-17] MEDS: NORCO 10/325 TAB PO SCH ×2 (08:48→21:04)
[2017-04-17] MEDS: HEMOCYTE-PLUS PO SCH (08:48)
[2017-04-17] MEDS: COZAAR PO SCH (08:49)
[2017-04-17] MEDS: NS IV SCH ×4 (14:43→21:15)
[2017-04-17] MEDS: SODIUM BICARBONATE 8.4% IV SCH ×4 (14:43→21:15)
[2017-04-17] MEDS: KCL IV SCH ×4 (14:43→21:15)
[2017-04-17] MEDS: HumuLIN R SUBCUT PRN (21:06)
[2017-04-18 04:33] LABS: BASOPHILS % (AUTO) 0.6 % (0.2-1.0); EOSINOPHILS # (AUTO) 0.1 x10^3/uL (0.0-0.2); EOSINOPHILS % (AUTO) 0.9 % (0.9-2.9); HEMATOCRIT 28.4 % (42.0-54.0); HEMOGLOBIN 9.4 g/dL (13.5-18.0); LYMPHOCYTES # (AUTO) 2.1 X10^3/uL (1.3-2.9); LYMPHOCYTES % (AUTO) 36.5 % (21.0-51.0); MEAN CORPUSCULAR HEMOGLOBIN 25.2 pg (27.0-34.0); MEAN CORPUSCULAR HGB CONC 33.2 g/dL (33.0-35.0); MEAN CORPUSCULAR VOLUME 75.8 fL (80.0-100.0); MEAN PLATELET VOLUME 8.6 fL (7.4-11.0); MONOCYTES # (AUTO) 0.6 x10^3/uL (0.3-0.8); MONOCYTES % (AUTO) 10.7 % (0.0-13.0); NEUTROPHILS % (AUTO) 51.3 % (42.0-75.0); PLATELET COUNT 246 X10^3/uL (150.0-450.0); RED BLOOD COUNT 3.74 X10^6/uL (4.7-6.0); RED CELL DISTRIBUTION WIDTH 14.8 % (11.6-16.5); WHITE BLOOD COUNT 5.9 X10^3/uL (3.6-10.0)
[2017-04-18 04:44] LABS: ALANINE AMINOTRANSFERASE 17 Units/L (12-78); ALBUMIN 2.7 g/dL (3.4-5.0); ALKALINE PHOSPHATASE 99 Units/L (46-116); ASPARTATE AMINO TRANSFERASE 15 Units/L (15-37); BLOOD UREA NITROGEN 10 mg/dL (7-18); CALCIUM 8.2 mg/dL (8.5-10.1); CARBON DIOXIDE 29.4 mmol/L (21-32); CHLORIDE 104 mmol/L (98-107); COR CA(FOR HYPOALB) 9.2 mg/dL (8.5-10.1); COR NA(FOR HYPERGLY) 140 mmol/L (136-145); CREATININE 0.99 mg/dL (0.70-1.30); SODIUM 136 mmol/L (136-145); TOTAL PROTEIN 6.1 g/dL (6.4-8.2); eGFR BLACK RACES > 60 (>60); eGFR NON BLACK RACES > 60 (>60)
[2017-04-18] MEDS: SODIUM BICARBONATE 8.4% IV SCH ×2 (05:23)
[2017-04-18] MEDS: NS IV SCH ×2 (05:23)
[2017-04-18] MEDS: KCL IV SCH ×2 (05:23)
[2017-04-18 05:52] LABS: PLATELET MORPHOLOGY COMMENT NORMAL (NORMAL)
[2017-04-18 05:53] LABS: HYPOCHROMASIA SLIGHT
[2017-04-18] MEDS: HumuLIN R SUBCUT PRN (06:09)
[2017-04-18] MEDS: HumaLOG SC SCH (06:11)
[2017-04-18 08:11] VITALS: BP 172/95
[2017-04-18] MEDS: COZAAR PO SCH (09:18)
[2017-04-18] MEDS: HEMOCYTE-PLUS PO SCH (09:19)
[2017-04-18] MEDS: PEPCID 20 MG IV PREMIX* 20 MG/50 ML BAG IV SCH (09:19)
[2017-04-18] MEDS: PROTONIX INJ 40 MG VIAL IVP SCH (09:19)
[2017-04-18] MEDS: NORCO 10/325 TAB PO SCH (09:19)
--- NOTE | 2017-04-18 11:14 | PCM.PROG ---
Progress Note - Progress Note for Day of Date: 04/16/17 - Subjective Subjective: WAS ADMITTED FOR DIABETIC GASTROPARESIS. TODAY, HE IS ALERT AND ORIENTED, LYING IN BED ON MORNING ROUNDS. HE CONTINUES WITH COMPLAINTS OF NAUSEA AND VOMITING. HE REPORTS THAT PAIN HAS SOMEWHAT IMPROVED SINCE YESTERDAY. ON EXAMINATION, LUNGS ARE CLEAR TO AUSCULTATION. ABDOMEN IS ROUND, SOFT, AND CONTINUES WITH MILD DIFFUSE TENDERNESS. BOWEL SOUNDS ARE HYPERACTIVE. PATIENT CONTINUES WITH BILIOUS EMESIS. PATIENTS VITAL SIGNS THIS MORNING ARE 98.4-113-20-97%-193/75. LABS WERE OBTAINED. ABNORMAL LAB VALUES INCLUDE THE FOLLOWING: WBC 10.9, HGB 11.8, HCT 36.2, GLUCOSE 175, CALCIUM 8.4, ALKALINE PHOSPHATASE 117, A/G RATIO 0.9. PATIENTS BLOOD PRESSURE REMAINS ELEVATED DESPITE COMPLIANCE WITH BLOOD PRESSURE MEDICATIONS. TODAY, WE PLAN INCREASE LOSARTAN TO 100MG HS. HE WILL BE STARTED ON A CLEAR LIQUID DIET LATER TODAY IF NAUSEA AND VOMITING SUBSIDES. OTHERWISE, WE WILL CONTINUE WITH CURRENT PLAN OF CARE TODAY. WE PLAN TO FOLLOW UP WITH AM LABS AND CONTINUE TO MONITOR PATIENT. - Past Medical Family Social History Past Med/Fam/Surg Hx: No changes since H&P Allergies: Allergies codeine Allergy (Verified 01/26/17 23:47) morphine Allergy (Verified 01/26/17 23:47) - Review of Systems ROS: No change since H&P - Vital Signs and I&O's Vital Signs: Temperature 98.1 F Pulse Rate [Left Brachial] 97 Pulse Rate 108 Respiratory Rate 18 Blood Pressure [Right Arm] 172/86 Blood Pressure [Left Arm] 172/95 Blood Pressure [Left Radial 160/102 Artery] Blood Pressure 204/107 O2 Sat by Pulse Oximetry 99 Intake and Output: Intake & Output 04/15/17 04/16/17 04/17/17 04/18/17 11:59 11:59 11:59 11:59 Intake Total 0 1999 1070 800 Balance 0 1999 1070 800 - Physical Exam Oriented: Normal Eyes: Normal. negative: Blurred Vision, Diplopia, Discharge, Pain, Redness, Photophobia, Other Ear: Normal. negative: Right, Left, Swelling, Ecchymosis, Hemotypanum, Abrasion , Laceration Nose: Normal Throat: Normal. negative: Tonsillar Hypertrophy, Red, Exudate, Dry, Other Respiratory: Normal Cardiovascular: Tachycardia. negative: Murmur, Edema : Normal. negative: Dysuria, Hematuria, Frequency, Discharge, Testicular Pain , Bleeding, , Other Auscultation: Bowel Sounds: Increased Palpation: Normal Tenderness: Diffuse, Mild. negative: Rebound, Guarding, Rigidity Skin: Normal. negative: Decreased Turgur, Rash, Papular, Macular, Maculopapular , Vesicular, Pustular, Petechial, Red, Tender, Hot, Diaphoresis, Wound, Bruising , Ecchymosis, Other Musculoskeletal: Normal. negative: Right, Left, Shoulder, Clavicle, Arm, Elbow , Forearm, Wrist, Hand, Hip, Thigh, Knee, Leg, Ankle, Foot, Back:Thoracic, Back: Lumbar, Back:Midline, Back:Paraspinous, Pelvis, Swelling, Tender, Deformity, Pulse Deficit, Motor Deficit, Sensory Deficit, Instability, Crepitance Psychiatric: Normal Mood Description: Calm Affect: Normal Speech Pattern: Clear, Appropriate - Laboratory and Diagnostics Result Diagrams: 04/18/17 03:40 04/18/17 03:40 Labs: Laboratory WBC 5.9 X10^3/uL (3.6-10.0) 04/18/17 03:40 RBC 3.74 X10^6/uL (4.7-6.0) L 04/18/17 03:40 Hgb 9.4 g/dL (13.5-18.0) L 04/18/17 03:40 Hct 28.4 % (42.0-54.0) L 04/18/17 03:40 MCV 75.8 fL (80.0-100.0) L 04/18/17 03:40 MCH 25.2 pg (27.0-34.0) L 04/18/17 03:40 MCHC 33.2 g/dL (33.0-35.0) 04/18/17 03:40 RDW 14.8 % (11.6-16.5) 04/18/17 03:40 Plt Count 246 X10^3/uL (150.0-450.0) 04/18/17 03:40 Plt Count Comment Adequate (ADEQUATE) 04/18/17 03:40 MPV 8.6 fL (7.4-11.0) 04/18/17 03:40 Neut % 51.3 % (42.0-75.0) 04/18/17 03:40 Lymph % 36.5 % (21.0-51.0) 04/18/17 03:40 [place] % 10.7 % (0.0-13.0) 04/18/17 03:40 Eos % 0.9 % (0.9-2.9) 04/18/17 03:40 Baso % 0.6 % (0.2-1.0) 04/18/17 03:40 Neut # 3.0 x10^3/uL (2.2-4.8) 04/18/17 03:40 Lymph # 2.1 X10^3/uL (1.3-2.9) 04/18/17 03:40 [place] # 0.6 x10^3/uL (0.3-0.8) 04/18/17 03:40 Eos # 0.1 x10^3/uL (0.0-0.2) 04/18/17 03:40 Baso # 0.0 X10^3/uL (0.0-0.1) 04/18/17 03:40 Absolute Nucleated RBC 0.0 /100WBC 04/18/17 03:40 Total Counted 100 04/14/17 05:32 Neutrophils % (Manual) 89 % (39-76) H 04/14/17 05:32 Lymphocytes % (Manual) 7 % (13-43) L 04/14/17 05:32 Monocytes % (Manual) 2 % (4-9) L 04/14/17 05:32 Eosinophils % (Manual) 2 % (0-6) 04/14/17 05:32 Plt Morphology Comment Normal (NORMAL) 04/18/17 03:40 RBC Morphology Abnormal (NORMAL) 04/18/17 03:40 Hypochromasia Slight A 04/18/17 03:40 Anisocytosis Slight A 04/15/17 03:50 Microcytosis Slight A 04/16/17 03:41 Sample Site Lt rad 04/14/17 08:56 ABG pH 7.430 (7.35-7.45) 04/14/17 08:56 ABG pCO2 41.0 mmHg (35.0-45.0) 04/14/17 08:56 ABG pO2 90.0 mmHg (80.0-100.0) 04/14/17 08:56 ABG HCO3 27.2 mmol/L (22-26) H 04/14/17 08:56 ABG O2 Saturation 97.0 % (90-100) 04/14/17 08:56 ABG Base Excess 2.6 mmol/L (-2.0-2.0) H 04/14/17 08:56 Wang Test Pos 04/14/17 08:56 A-a Gradient 8.0 mmHg 04/14/17 08:56 FiO2 21.000 04/14/17 08:56 Blood Gas Comments bryn Farmer 04/14/17 08:56 Sodium 136 mmol/L (136-145) 04/18/17 03:40 Corrected Sodium 140 mmol/L (136-145) 04/18/17 03:40 Potassium 3.6 mmol/L (3.5-5.1) 04/18/17 03:40 Chloride 104 mmol/L (98-107) 04/18/17 03:40 Carbon Dioxide 29.4 mmol/L (21-32) 04/18/17 03:40 BUN 10 mg/dL (7-18) 04/18/17 03:40 Creatinine 0.99 mg/dL (0.70-1.30) 04/18/17 03:40 Est GFR (MDRD) Af Amer > 60 (>60) 04/18/17 03:40 Est GFR (MDRD) Non-Af > 60 (>60) 04/18/17 03:40 Glucose 248 mg/dL (65-99) H 04/18/17 03:40 POC Glucose (mg/dL) 270 mg/dL (65-99) H 04/18/17 05:33 Calcium 8.2 mg/dL (8.5-10.1) L 04/18/17 03:40 Corrected Calcium 9.2 mg/dL (8.5-10.1) 04/18/17 03:40 Total Bilirubin 0.20 mg/dL (0.2-1.0) 04/18/17 03:40 AST 15 Units/L (15-37) 04/18/17 03:40 ALT 17 Units/L (12-78) 04/18/17 03:40 Alkaline Phosphatase 99 Units/L (46-116) 04/18/17 03:40 C-Reactive Protein 2.60 mg/L (0-3.0) 04/13/17 16:48 Total Protein 6.1 g/dL (6.4-8.2) L 04/18/17 03:40 Albumin 2.7 g/dL (3.4-5.0) L 04/18/17 03:40 Globulin 3.4 g/dL (2.5-4.5) 04/18/17 03:40 Albumin/Globulin Ratio 0.8 Ratio (1.1-2.1) L 04/18/17 03:40 HCG, Quant Cancelled 04/13/17 16:48 Urine Acetone Negative (NEGATIVE) 04/18/17 05:13 Gastric Occult Blood Positive (NEGATIVE) A 04/14/17 05:00 Stool pH 5 04/14/17 05:00 Acetone, Semi-Quant Negative (NEGATIVE) 04/13/17 16:48 - Plan (1) Diabetic gastroparalysis Status: Acute Plan: normal saline with 20meq kcl at 150 ml/hr, phenergan 12.5mg iv q6h prn, protonix 40mg iv daily, pepcid 20mg iv bid, continue to monitor (2) Abdominal pain Status: Acute Qualifiers: Abdominal location: generalized Qualified Code(s): R10.84 - Generalized abdominal pain Plan: CONTINUE DEMEROL 25MG IVP Q6H PRN, CONTINUE TO MONITOR (3) History of anemia Status: Chronic Plan: CONTINUE HEMOCYTE, CONTINUE TO MONITOR (4) GERD (gastroesophageal reflux disease) Status: Chronic Qualifiers: Esophagitis presence: esophagitis presence not specified Qualified Code(s) : K21.9 - Gastro-esophageal reflux disease without esophagitis Plan: CONTINUE PEPCID, CONTINUE TO MONITOR (5) Hypertension Status: Chronic Qualifiers: Hypertension type: essential hypertension Qualified Code(s): I15.9 - Secondary hypertension, unspecified Plan: LOSARTAN 100MG PO DAILY, CONTINUE CATAPRES PATCH, CONTINUE TO MONITOR (6) Diabetes mellitus type 1 Status: Chronic Qualifiers: Diabetes mellitus complication status: with other specified complication Plan: CONTINUE HUMALOG 7UNITS SC TIDWM, CONTINUE HUMULIN R SLIDING SCALE, CHECK OTBS, CONTINUE TO MONITOR
--- NOTE | 2017-04-18 11:29 | PCM.PROG ---
Progress Note - Progress Note for Day of Date: 04/17/17 - Subjective Subjective: WAS ADMITTED FOR DIABETIC GASTROPARESIS. TODAY, HE IS ALERT AND ORIENTED, LYING IN BED ON MORNING ROUNDS. HE CONTINUES WITH COMPLAINTS OF NAUSEA, BUT REPORTS THAT ABDOMINAL PAIN AND VOMITING HAS SUBSIDED. ON EXAMINATION, LUNGS ARE CLEAR TO AUSCULTATION. ABDOMEN IS ROUND, SOFT, AND NON TENDER WITH NORMAL BOWEL SOUNDS NOTED IN ALL QUADRANTS. PATIENTS VITAL SIGNS THIS MORNING ARE 97.9-87-20-98%-183/88. LABS WERE OBTAINED. ABNORMAL LAB VALUES INCLUDE THE FOLLOWING: RBC 3.78, HGB 9.4, HCT 28.4, POTASSIUM 3.4, GLUCOSE 115, CALCIUM 7.8, TOTAL PROTEIN 5.7, ALBUMIN 2.6, URINE ACETONES SMALL. PATIENTS BLOOD PRESSURE HAS RETURNED TO HIS BASELINE. HE HAS TOLERATED CLEAR LIQUIDS WELL. BEING THAT TITO CONTINUES WITH NAUSEA AND HAS SMALL ACETONES IN HIS URINE, WE PLAN TO MONITOR HIM TODAY. WE WILL ADD AN AMP OF SODIUM BICARB TO EACH LITER OF IV FLUIDS. OTHERWISE, WE WILL CONTINUE WITH CURRENT PLAN OF CARE TODAY. WE PLAN TO FOLLOW UP WITH AM LABS AND CONTINUE TO MONITOR PATIENT. - Past Medical Family Social History Past Med/Fam/Surg Hx: No changes since H&P Allergies: Allergies codeine Allergy (Verified 01/26/17 23:47) morphine Allergy (Verified 01/26/17 23:47) - Review of Systems ROS: No change since H&P - Vital Signs and I&O's Vital Signs: Temperature 98.1 F Pulse Rate [Left Brachial] 97 Pulse Rate 108 Respiratory Rate 18 Blood Pressure [Right Arm] 172/86 Blood Pressure [Left Arm] 172/95 Blood Pressure [Left Radial 160/102 Artery] Blood Pressure 204/107 O2 Sat by Pulse Oximetry 99 Intake and Output: Intake & Output 04/15/17 04/16/17 04/17/17 04/18/17 11:59 11:59 11:59 11:59 Intake Total 0 1999 1070 800 Balance 0 1999 1070 800 - Physical Exam Oriented: Normal Eyes: Normal. negative: Blurred Vision, Diplopia, Discharge, Pain, Redness, Photophobia, Other Ear: Normal. negative: Right, Left, Swelling, Ecchymosis, Hemotypanum, Abrasion , Laceration Nose: Normal Throat: Normal. negative: Tonsillar Hypertrophy, Red, Exudate, Dry, Other Respiratory: Normal Cardiovascular: Tachycardia. negative: Murmur, Edema : Normal. negative: Dysuria, Hematuria, Frequency, Discharge, Testicular Pain , Bleeding, , Other Auscultation: Bowel Sounds: Increased Palpation: Normal Tenderness: Diffuse, Mild. negative: Rebound, Guarding, Rigidity Skin: Normal. negative: Decreased Turgur, Rash, Papular, Macular, Maculopapular , Vesicular, Pustular, Petechial, Red, Tender, Hot, Diaphoresis, Wound, Bruising , Ecchymosis, Other Musculoskeletal: Normal. negative: Right, Left, Shoulder, Clavicle, Arm, Elbow , Forearm, Wrist, Hand, Hip, Thigh, Knee, Leg, Ankle, Foot, Back:Thoracic, Back: Lumbar, Back:Midline, Back:Paraspinous, Pelvis, Swelling, Tender, Deformity, Pulse Deficit, Motor Deficit, Sensory Deficit, Instability, Crepitance Psychiatric: Normal Mood Description: Calm Affect: Normal Speech Pattern: Clear, Appropriate - Laboratory and Diagnostics Result Diagrams: 04/18/17 03:40 04/18/17 03:40 Labs: Laboratory WBC 5.9 X10^3/uL (3.6-10.0) 04/18/17 03:40 RBC 3.74 X10^6/uL (4.7-6.0) L 04/18/17 03:40 Hgb 9.4 g/dL (13.5-18.0) L 04/18/17 03:40 Hct 28.4 % (42.0-54.0) L 04/18/17 03:40 MCV 75.8 fL (80.0-100.0) L 04/18/17 03:40 MCH 25.2 pg (27.0-34.0) L 04/18/17 03:40 MCHC 33.2 g/dL (33.0-35.0) 04/18/17 03:40 RDW 14.8 % (11.6-16.5) 04/18/17 03:40 Plt Count 246 X10^3/uL (150.0-450.0) 04/18/17 03:40 Plt Count Comment Adequate (ADEQUATE) 04/18/17 03:40 MPV 8.6 fL (7.4-11.0) 04/18/17 03:40 Neut % 51.3 % (42.0-75.0) 04/18/17 03:40 Lymph % 36.5 % (21.0-51.0) 04/18/17 03:40 [place] % 10.7 % (0.0-13.0) 04/18/17 03:40 Eos % 0.9 % (0.9-2.9) 04/18/17 03:40 Baso % 0.6 % (0.2-1.0) 04/18/17 03:40 Neut # 3.0 x10^3/uL (2.2-4.8) 04/18/17 03:40 Lymph # 2.1 X10^3/uL (1.3-2.9) 04/18/17 03:40 [place] # 0.6 x10^3/uL (0.3-0.8) 04/18/17 03:40 Eos # 0.1 x10^3/uL (0.0-0.2) 04/18/17 03:40 Baso # 0.0 X10^3/uL (0.0-0.1) 04/18/17 03:40 Absolute Nucleated RBC 0.0 /100WBC 04/18/17 03:40 Total Counted 100 04/14/17 05:32 Neutrophils % (Manual) 89 % (39-76) H 04/14/17 05:32 Lymphocytes % (Manual) 7 % (13-43) L 04/14/17 05:32 Monocytes % (Manual) 2 % (4-9) L 04/14/17 05:32 Eosinophils % (Manual) 2 % (0-6) 04/14/17 05:32 Plt Morphology Comment Normal (NORMAL) 04/18/17 03:40 RBC Morphology Abnormal (NORMAL) 04/18/17 03:40 Hypochromasia Slight A 04/18/17 03:40 Anisocytosis Slight A 04/15/17 03:50 Microcytosis Slight A 04/16/17 03:41 Sample Site Lt rad 04/14/17 08:56 ABG pH 7.430 (7.35-7.45) 04/14/17 08:56 ABG pCO2 41.0 mmHg (35.0-45.0) 04/14/17 08:56 ABG pO2 90.0 mmHg (80.0-100.0) 04/14/17 08:56 ABG HCO3 27.2 mmol/L (22-26) H 04/14/17 08:56 ABG O2 Saturation 97.0 % (90-100) 04/14/17 08:56 ABG Base Excess 2.6 mmol/L (-2.0-2.0) H 04/14/17 08:56 Wang Test Pos 04/14/17 08:56 A-a Gradient 8.0 mmHg 04/14/17 08:56 FiO2 21.000 04/14/17 08:56 Blood Gas Comments Marleny,bryn 04/14/17 08:56 Sodium 136 mmol/L (136-145) 04/18/17 03:40 Corrected Sodium 140 mmol/L (136-145) 04/18/17 03:40 Potassium 3.6 mmol/L (3.5-5.1) 04/18/17 03:40 Chloride 104 mmol/L (98-107) 04/18/17 03:40 Carbon Dioxide 29.4 mmol/L (21-32) 04/18/17 03:40 BUN 10 mg/dL (7-18) 04/18/17 03:40 Creatinine 0.99 mg/dL (0.70-1.30) 04/18/17 03:40 Est GFR (MDRD) Af Amer > 60 (>60) 04/18/17 03:40 Est GFR (MDRD) Non-Af > 60 (>60) 04/18/17 03:40 Glucose 248 mg/dL (65-99) H 04/18/17 03:40 POC Glucose (mg/dL) 270 mg/dL (65-99) H 04/18/17 05:33 Calcium 8.2 mg/dL (8.5-10.1) L 04/18/17 03:40 Corrected Calcium 9.2 mg/dL (8.5-10.1) 04/18/17 03:40 Total Bilirubin 0.20 mg/dL (0.2-1.0) 04/18/17 03:40 AST 15 Units/L (15-37) 04/18/17 03:40 ALT 17 Units/L (12-78) 04/18/17 03:40 Alkaline Phosphatase 99 Units/L (46-116) 04/18/17 03:40 C-Reactive Protein 2.60 mg/L (0-3.0) 04/13/17 16:48 Total Protein 6.1 g/dL (6.4-8.2) L 04/18/17 03:40 Albumin 2.7 g/dL (3.4-5.0) L 04/18/17 03:40 Globulin 3.4 g/dL (2.5-4.5) 04/18/17 03:40 Albumin/Globulin Ratio 0.8 Ratio (1.1-2.1) L 04/18/17 03:40 HCG, Quant Cancelled 04/13/17 16:48 Urine Acetone Negative (NEGATIVE) 04/18/17 05:13 Gastric Occult Blood Positive (NEGATIVE) A 04/14/17 05:00 Stool pH 5 04/14/17 05:00 Acetone, Semi-Quant Negative (NEGATIVE) 04/13/17 16:48 - Plan (1) Diabetic gastroparalysis Status: Acute Plan: normal saline with 20meq kcl at 150 ml/hr, phenergan 12.5mg iv q6h prn, protonix 40mg iv daily, pepcid 20mg iv bid, continue to monitor (2) Urine ketones Status: Acute Plan: SODIUM BICARB 1 AMP TO EACH LITER OF IV FLUIDS, CONTINUE TO MONITOR (3) History of anemia Status: Chronic Plan: CONTINUE HEMOCYTE, CONTINUE TO MONITOR (4) Abdominal pain Status: Acute Qualifiers: Abdominal location: generalized Qualified Code(s): R10.84 - Generalized abdominal pain Plan: CONTINUE DEMEROL 25MG IVP Q6H PRN, CONTINUE TO MONITOR (5) GERD (gastroesophageal reflux disease) Status: Chronic Qualifiers: Esophagitis presence: esophagitis presence not specified Qualified Code(s) : K21.9 - Gastro-esophageal reflux disease without esophagitis Plan: CONTINUE PEPCID, CONTINUE TO MONITOR (6) Hypertension Status: Chronic Qualifiers: Hypertension type: essential hypertension Qualified Code(s): I15.9 - Secondary hypertension, unspecified Plan: LOSARTAN 100MG PO DAILY, CONTINUE CATAPRES PATCH, CONTINUE TO MONITOR (7) Diabetes mellitus type 1 Status: Chronic Qualifiers: Diabetes mellitus complication status: with other specified complication Plan: CONTINUE HUMALOG 7UNITS SC TIDWM, CONTINUE HUMULIN R SLIDING SCALE, CHECK OTBS, CONTINUE TO MONITOR
== END 2017-04-18 10:38 | disposition home or self-care (01) | DRG 392 ==
LOC: ER 15:39 → MED/SURG 19:57 → OBSVTOIN 04-14 10:00
PROVIDERS: ADMIT Internal Medicine; ATTEND Internal Medicine
DX: K31.84 Gastroparesis (principal); E10.43 Type 1 diabetes mellitus with diabetic autonomic (poly)neuropathy; R11.2 Nausea with vomiting, unspecified; R10.84 Generalized abdominal pain; R53.1 Weakness; F41.8 Other specified anxiety disorders; K21.9 Gastro-esophageal reflux disease without esophagitis; I10 Essential (primary) hypertension; R82.4 Acetonuria
CPT/HCPCS: 36415; 36600; 74022; 80053; 81002; 82009; 82271; 82803; 82947; 85025; 86140; 94760; 96365; 96367; 96374; 96375; 99284; A4216; A4222; C9113; S0028; G0378; J0360; J1100; J1815; J1817; J2060; J2175; J2405; J2550; J3480; J3490

== ENCOUNTER 2017-07-09 11:52 | Inpatient (IN) | payer MEDICAID ==
[2017-07-09] MEDS ORDERED: NS 1000 ML 1,000 ML ONE ×3 (11:59→13:49)
--- NOTE | 2017-07-09 11:59 | DR.GENAD ---
HPI - Nurses notes reviewed Nurses Notes Review: Yes - Source History Provided: Patient, Family Member - Mode of Arrival Mode of Arrival: Ambulatory - Timing Came on: Suddenly - Duration Duration: Constant Duration: Days - Severity Severity: Moderate PMH - PMH Past Medical History: Anxiety, Diabetes, Dyslipidemia, GERD, Hypertension Past Surgical History: Yes Surgical History: Cholecystectomy, Ortho Surgery, Other - Family History Family Medical History: Diabetes Mellitus, Hypertension - Social History Do you use any recreational Drugs:: No ROS - Review of Systems Constitutional: Weakness, Fatigue. negative: Chills, Fever Eyes: No Symptoms Reported. negative: Eye Pain, Discharge ENTM: No Symptoms Reported. negative: Ear Pain, Nose Discharge, Nose Congestion , Throat Pain Respiratoy: Non-Productive Cough. negative: Short of Breath, Wheezing Cardiovascular: Chest Pain Gastrointestinal/Abdominal: Abdominal Pain, Nausea, Vomiting Genitourinary: No Symptoms Reported Neurological: Headache, Weakness, Dizziness Musculoskeletal: Muscle Pain Integumentary: Dryness Hematologic/Lymphatic: No Symptoms Reported Endocrine: Increased Thirst All Other Systems: Reviewed and Negative PE - Vital Signs Vitals: Blood Pressure [Right Arm] 172/86 Blood Pressure [Left Arm] 172/95 Blood Pressure [Left Radial 160/102 Artery] Blood Pressure 172/95 - General Limitations: No Limitations General Appearance: Alert - Head Head Exam: Normal Inspection - Eyes Eye exam: Normal Appearance - ENT ENT Exam: Normal External Ear Exam External Ear Exam: Normal External Inspection TM/Canal Exam: Bilateral Normal Nose Exam: Normal Nose Exam Mouth Exam: Normal Inspection Throat Exam: Normal Inspection - Neck Neck Exam: Normal Inspection - Chest Chest Inspection: Normal Inspection - Respiratory Respiratory Exam: Normal Lung Sounds Bilat Respiratory Exam: Bilateral Rhonchi, Lower Rhonchi - Cardiovascular Cardiovascular Exam: Regular Rate, Normal Rhythm, Normal Heart Sounds - Abdominal Exam Abdominal Exam: Normal Bowel Sounds, Soft, Tenderness Abdominal Tenderness: Diffuse, Moderate - Back Back Exam: Normal Inspection - Neurologic Neurological Exam: Alert, Oriented X3 - Psychiatric Psychiatric Exam: Normal Affect, Normal Mood - Skin Skin Exam: Normal Color [facility] - Additional Information Additional Information Obtained From: Family - Differential Diagnosis Differential Diagnosis: ABDOMINAL PAIN, DIABETIC GASTROPARESIS Course - Treatment Treatment: SEE ORDERS. - Education/Counseling Education/Counseling: Patient, Family, Education Educated On: Diagnosis - Discharge Plan Condition: Stable - Follow ups/Referrals Follow ups/Referrals: Williams Worthington [Primary Care Provider] - 3 days - Instructions
[2017-07-09] MEDS ORDERED: NS 1000 ML 1,000 ML IV ONE (12:04)
[2017-07-09] MEDS ORDERED: PHENERGAN INJ 25 MG IV ONE (12:04)
[2017-07-09] MEDS ORDERED: DEMEROL INJ IVP ONE (12:05)
[2017-07-09] MEDS ORDERED: PHENERGAN INJ 25 MG ONE (12:22)
[2017-07-09] MEDS ORDERED: DEMEROL INJ ONE (12:22)
[2017-07-09 12:31] LABS: BASOPHILS % (AUTO) 0.4 % (0.2-1.0); HEMATOCRIT 38.8 % (42.0-54.0); HEMOGLOBIN 12.6 g/dL (13.5-18.0); LYMPHOCYTES # (AUTO) 1.5 X10^3/uL (1.3-2.9); LYMPHOCYTES % (AUTO) 14.5 % (21.0-51.0); MEAN CORPUSCULAR HEMOGLOBIN 23.2 pg (27.0-34.0); MEAN CORPUSCULAR HGB CONC 32.4 g/dL (33.0-35.0); MEAN CORPUSCULAR VOLUME 71.6 fL (80.0-100.0); MEAN PLATELET VOLUME 9.2 fL (7.4-11.0); MONOCYTES # (AUTO) 0.5 x10^3/uL (0.3-0.8); MONOCYTES % (AUTO) 4.6 % (0.0-13.0); NEUTROPHILS # (AUTO) 8.5 x10^3/uL (2.2-4.8); NEUTROPHILS % (AUTO) 80.5 % (42.0-75.0); PLATELET COUNT 277 X10^3/uL (150.0-450.0); RED BLOOD COUNT 5.41 X10^6/uL (4.7-6.0); RED CELL DISTRIBUTION WIDTH 18.5 % (11.6-16.5); WHITE BLOOD COUNT 10.5 X10^3/uL (3.6-10.0)
[2017-07-09 12:38] LABS: SERUM ACETONE SMALL (NEGATIVE)
[2017-07-09 12:43] LABS: BLOOD UREA NITROGEN 20 mg/dL (7-18); CALCIUM 9.3 mg/dL (8.5-10.1); CARBON DIOXIDE 23.3 mmol/L (21-32); CHLORIDE 98 mmol/L (98-107); COR NA(FOR HYPERGLY) 143 mmol/L (136-145); SODIUM 136 mmol/L (136-145); TROPONIN I < 0.02 ng/mL (0-1.5); eGFR BLACK RACES > 60 (>60); eGFR NON BLACK RACES > 60 (>60)
[2017-07-09 12:47] LABS: ALANINE AMINOTRANSFERASE 26 Units/L (12-78); ALBUMIN 4.1 g/dL (3.4-5.0); ALKALINE PHOSPHATASE 137 Units/L (46-116); AMYLASE 62 Units/L (25-115); ASPARTATE AMINO TRANSFERASE 20 Units/L (15-37); CKMB % 0.8 % (<4); CREATINE KINASE 356 Units/L (39-308); CREATINE KINASE MB 2.7 ng/mL (0-4.0); LIPASE 84 Units/L (73-393); TOTAL PROTEIN 8.9 g/dL (6.4-8.2)
[2017-07-09 12:57] LABS: PLATELET MORPHOLOGY COMMENT NORMAL (NORMAL)
[2017-07-09 12:58] LABS: HYPOCHROMASIA SLIGHT
[2017-07-09] MEDS: NS 1000 ML 1,000 ML IV SCH ×2 (13:52→23:03)
[2017-07-09] MEDS: PEPCID 20 MG IV PREMIX* 20 MG/50 ML BAG IV SCH ×2 (14:30→21:43)
[2017-07-09] MEDS: ZOFRAN INJ 4 MG VIAL IVP PRN (14:30)
[2017-07-09] MEDS ORDERED: ZOFRAN INJ 4 MG VIAL ONE (14:30)
[2017-07-09] MEDS ORDERED: PEPCID 20 MG IV PREMIX* 20 MG/50 ML BAG IV ONE (14:30)
[2017-07-09] MEDS: HumuLIN R SC PRN ×3 (15:14→23:00)
[2017-07-09] MEDS: PHENERGAN INJ 25 MG IV PRN (18:32)
[2017-07-09 19:55] LABS: BILIRUBIN,URINE NEGATIVE (NEGATIVE); BLOOD/HEMOGLOBIN,URINE 2+ (NEGATIVE); GLUCOSE, URINE 4+ (NEGATIVE); KETONES,URINE 4+ (NEGATIVE); LEUKOCYTE ESTERASE ,URINE NEGATIVE (NEGATIVE); NITRITES,URINE NEGATIVE (NEGATIVE); PROTEIN,URINE 2+ (NEGATIVE); UROBILINOGEN,URINE NORMAL (NORMAL)
[2017-07-09 20:01] LABS: APPEARANCE,URINE CLEAR (CLEAR); COLOR,URINE YELLOW (YELLOW)
[2017-07-09 20:02] LABS: AMORPHOUS SEDIMENT,UR TRACE /HPF (NEGATIVE); BACTERIA,URINE NEGATIVE /HPF (NEGATIVE); SQUAMOUS EPITHELIAL CELL,UR RARE /HPF (NEGATIVE)
[2017-07-09] MEDS: DEMEROL INJ IVP PRN (21:44)
[2017-07-10] MEDS: HumuLIN R SC PRN ×6 (03:08→22:36)
[2017-07-10] MEDS: PHENERGAN INJ 25 MG IV PRN ×3 (03:18→17:28)
[2017-07-10] MEDS: ZOFRAN INJ 4 MG VIAL IVP PRN ×2 (05:38→12:13)
[2017-07-10] MEDS: DEMEROL INJ IVP PRN ×3 (05:59→20:45)
[2017-07-10 06:12] LABS: BASOPHILS # (AUTO) 0.1 X10^3/uL (0.0-0.1); BASOPHILS % (AUTO) 0.6 % (0.2-1.0); HEMATOCRIT 36.9 % (42.0-54.0); LYMPHOCYTES % (AUTO) 7.3 % (21.0-51.0); MEAN CORPUSCULAR HEMOGLOBIN 23.2 pg (27.0-34.0); MEAN CORPUSCULAR HGB CONC 32.6 g/dL (33.0-35.0); MEAN CORPUSCULAR VOLUME 71.2 fL (80.0-100.0); MEAN PLATELET VOLUME 9.3 fL (7.4-11.0); MONOCYTES # (AUTO) 0.6 x10^3/uL (0.3-0.8); MONOCYTES % (AUTO) 4.2 % (0.0-13.0); NEUTROPHILS # (AUTO) 12.2 x10^3/uL (2.2-4.8); NEUTROPHILS % (AUTO) 87.9 % (42.0-75.0); PLATELET COUNT 285 X10^3/uL (150.0-450.0); RED BLOOD COUNT 5.18 X10^6/uL (4.7-6.0); RED CELL DISTRIBUTION WIDTH 18.1 % (11.6-16.5); WHITE BLOOD COUNT 13.8 X10^3/uL (3.6-10.0)
[2017-07-10 06:16] LABS: ALANINE AMINOTRANSFERASE 25 Units/L (12-78); ALBUMIN 3.7 g/dL (3.4-5.0); ALKALINE PHOSPHATASE 125 Units/L (46-116); ASPARTATE AMINO TRANSFERASE 17 Units/L (15-37); BLOOD UREA NITROGEN 17 mg/dL (7-18); CALCIUM 8.4 mg/dL (8.5-10.1); CARBON DIOXIDE 24.5 mmol/L (21-32); CHLORIDE 105 mmol/L (98-107); COR NA(FOR HYPERGLY) 144 mmol/L (136-145); CREATININE 0.89 mg/dL (0.70-1.30); SODIUM 141 mmol/L (136-145); TOTAL PROTEIN 8.3 g/dL (6.4-8.2); eGFR BLACK RACES > 60 (>60); eGFR NON BLACK RACES > 60 (>60)
[2017-07-10 06:40] LABS: HYPOCHROMASIA SLIGHT; PLATELET MORPHOLOGY COMMENT NORMAL (NORMAL)
[2017-07-10] MEDS: NS 1000 ML 1,000 ML IV SCH ×2 (08:30→17:27)
[2017-07-10] MEDS: PEPCID 20 MG IV PREMIX* 20 MG/50 ML BAG IV SCH ×2 (09:43→20:45)
[2017-07-10] MEDS ORDERED: NORCO 10/325 TAB PO PRN (10:37)
[2017-07-10] MEDS ORDERED: PERCOCET TAB 5/325 MG PO PRN (10:50)
[2017-07-10] MEDS ORDERED: CATAPRES-TTS-3 TD SCH (11:00)
[2017-07-10] MEDS ORDERED: TOUJEO SOLOSTAR PEN SC SCH (11:00)
[2017-07-10] MEDS: COZAAR PO SCH (11:10)
[2017-07-10] MEDS: PROTONIX TAB 40 MG PO SCH ×2 (11:11→20:45)
[2017-07-10] MEDS: K-DUR TAB 20 MEQ PO SCH (11:11)
[2017-07-10] MEDS: HumaLOG SC SCH ×2 (11:22→17:27)
[2017-07-10] MEDS: KLONOPIN TAB 1 MG PO PRN (20:45)
[2017-07-11] MEDS: NS 1000 ML 1,000 ML IV SCH ×6 (01:54→21:47)
[2017-07-11] MEDS: PHENERGAN INJ 25 MG IV PRN ×4 (02:41→21:54)
[2017-07-11] MEDS: HumuLIN R SC PRN ×4 (02:43→18:35)
[2017-07-11 04:24] LABS: BASOPHILS # (AUTO) 0.1 X10^3/uL (0.0-0.1); BASOPHILS % (AUTO) 0.6 % (0.2-1.0); EOSINOPHILS % (AUTO) 0.1 % (0.9-2.9); HEMATOCRIT 37.6 % (42.0-54.0); HEMOGLOBIN 12.1 g/dL (13.5-18.0); LYMPHOCYTES # (AUTO) 1.5 X10^3/uL (1.3-2.9); LYMPHOCYTES % (AUTO) 11.1 % (21.0-51.0); MEAN CORPUSCULAR HGB CONC 32.3 g/dL (33.0-35.0); MEAN CORPUSCULAR VOLUME 71.1 fL (80.0-100.0); MEAN PLATELET VOLUME 8.7 fL (7.4-11.0); MONOCYTES # (AUTO) 0.9 x10^3/uL (0.3-0.8); MONOCYTES % (AUTO) 6.6 % (0.0-13.0); NEUTROPHILS # (AUTO) 10.9 x10^3/uL (2.2-4.8); NEUTROPHILS % (AUTO) 81.6 % (42.0-75.0); PLATELET COUNT 294 X10^3/uL (150.0-450.0); RED BLOOD COUNT 5.29 X10^6/uL (4.7-6.0); RED CELL DISTRIBUTION WIDTH 18.4 % (11.6-16.5); WHITE BLOOD COUNT 13.4 X10^3/uL (3.6-10.0)
[2017-07-11 04:29] LABS: SERUM ACETONE SMALL (NEGATIVE)
[2017-07-11 04:37] LABS: ALANINE AMINOTRANSFERASE 23 Units/L (12-78); ALBUMIN 3.5 g/dL (3.4-5.0); ALKALINE PHOSPHATASE 115 Units/L (46-116); ASPARTATE AMINO TRANSFERASE 17 Units/L (15-37); BLOOD UREA NITROGEN 16 mg/dL (7-18); CARBON DIOXIDE 25.6 mmol/L (21-32); CHLORIDE 104 mmol/L (98-107); COR NA(FOR HYPERGLY) 142 mmol/L (136-145); CREATININE 0.89 mg/dL (0.70-1.30); SODIUM 140 mmol/L (136-145); eGFR BLACK RACES > 60 (>60); eGFR NON BLACK RACES > 60 (>60)
[2017-07-11 04:40] LABS: HYPOCHROMASIA 1+; PLATELET MORPHOLOGY COMMENT NORMAL (NORMAL)
[2017-07-11] MEDS ORDERED: POTASSIUM CHL 60 MEQ/NS 0.45% 500 ML IV PRN (04:56)
[2017-07-11] MEDS ORDERED: K-LYTE EFFERVESCENT PO PRN (04:56)
[2017-07-11] MEDS ORDERED: POTASSIUM CHLORIDE LIQ 20 MEQ UDC PO PRN (04:56)
[2017-07-11] MEDS ORDERED: MAG-OX TAB PO PRN (04:56)
[2017-07-11] MEDS ORDERED: POTASSIUM CHL 40 MEQ/NS 0.45% 500 ML IV PRN (04:56)
[2017-07-11] MEDS ORDERED: MAGNESIUM SULFATE 1 GM/100 mL PREMIX 1 GM/100 ML BAG IV PRN (04:56)
[2017-07-11] MEDS: DEMEROL INJ IVP PRN ×3 (05:59→21:40)
[2017-07-11] MEDS: ZOFRAN INJ 4 MG VIAL IVP PRN ×2 (06:01→12:50)
[2017-07-11] MEDS: HumaLOG SC SCH (06:03)
[2017-07-11] MEDS: K-RIDER 10 MEQ/NS 100 ML 10 MEQ/100 ML BAG IV PRN ×2 (06:08→07:00)
[2017-07-11] MEDS ORDERED: TOUJEO SOLOSTAR PEN SC SCH (09:00)
[2017-07-11] MEDS: COZAAR PO SCH (09:52)
[2017-07-11] MEDS: PEPCID 20 MG IV PREMIX* 20 MG/50 ML BAG IV SCH ×2 (09:53→21:40)
[2017-07-11] MEDS: PROTONIX TAB 40 MG PO SCH ×2 (09:53→21:39)
[2017-07-11] MEDS: K-DUR TAB 20 MEQ PO SCH (09:53)
[2017-07-11] MEDS: MILK OF MAGNESIA PO SCH ×2 (12:25→21:39)
[2017-07-11] MEDS: COLACE CAP 100 MG PO SCH ×2 (12:25→21:39)
[2017-07-11 12:29] VITALS: BMI 23.0
[2017-07-11] MEDS ORDERED: COZAAR PO ONE (18:09)
--- NOTE | 2017-07-11 20:41 | DR.H&P ---
H&P - History & Physical for Day of: H&P Date: 07/09/17 - Chief Complaint Chief Complaint: nausea, vomiting, abdominal pain - Allergies Allergies/Adverse Reactions: Allergies Allergy/AdvReac Type Severity Reaction Status Date / Time codeine Allergy Verified 07/09/17 11:54 morphine Allergy Verified 07/09/17 11:54 - History of Present Illness History of Present Illness: is a 46 year old patient of ours who presented to the emergency room with complaints of nausea, vomiting, and abdominal pain. Patient reports that symptoms started yesterday. He reports that he has been unable to tolerate oral intake since onset. Patient has a known history of diabetic gastroparesis. Patient rates abdominal pain as a 9/ 10. Patient states he took Phenergan at home with no improvement in nausea and vomiting. On examination, he is slightly tachycardic with HR noted to be 102. Bilateral lungs are noted with rhonchi throughout. Abdomen is noted with moderate, diffuse abdominal tenderness on palpation. Hyperactive bowel sounds noted in all quadrants. There is normal range of motion noted to all extremities. On arrival, vitals were 98.9, 102, 20, 99% RA, 227/114. He reports that he has been compliant with his blood pressure medications at home. Labs were obtained. Abnormal lab values include the following: WBC 10.5, Hgb 12.6, Hct 38.8, MCV 71.6, MCH 23.2, MCHC 32.4, RDW 18.5, BUN 20, Glucose 408, Alk Phos 137, Creatine Kinase 356, Total Protein 8.9, Globulin 4.8, A/G Ratio 0.9, Acetones Small. Urinalysis revealed: Protein 2+, Glucose 4+, Ketones 4+, Occult Blood 2+, RBC 2-3, WBC 0-1. EKG revealed: Sinus Tachycardia. Ajrv=[id number]. He was given a Normal Saline bolus, Demerol 50mg IV, and Phenergan 25mg IV with no improvement in symptoms noted. We admitted patient to the hospital for further treatment and evaluation. We will monitor OTBS ACHS and administer Humulin R sliding scale PRN. We planned to follow up with AM labs and continue to monitor patient. - Past Medical History Past Medical History: Anxiety, Diabetes, Dyslipidemia, GERD, Hypertension Additional Medical History: Diabetic Neuropathy, Diabetic Gastroparesis, Hiatal Hernia, Gastric Ulcer, Gall Bladder Disease, Back Pain - Past Surgical History Surgical History: Cholecystectomy, Ortho Surgery, Other Additional Surgical History: Right foot I&D - Family History Family Medical History: Diabetes Mellitus, Hypertension - Social History Does patient currently use any type of tobacco product: No Have you used tobacco products in the last 12 months: No Type of Tobacco Use: None Does any household member use tobacco: No Alcohol Use: None - Medications Home Medications: Insulin Glargine (Toujeo) [Toujeo Solostar Pen] 60 units SQ DAILY 07/09/17 [ History Confirmed 07/09/17] Losartan Potassium [LOSARTAN POTASSIUM 50 MG *] 1 tab PO DAILY 07/09/17 [ History Confirmed 07/09/17] - Review of Systems Constitutional: Weakness, Malaise Eyes: No Symptoms Reported. denies: See HPI, Pain, Vision Change, Conjunctivae Inflammation, Eyelid Inflammation, Redness, Other ENT: No Symptoms Reported. denies: Ear Pain, Nose Pain, Nose Discharge, Nose Congestion, Mouth Swelling, Throat Swelling Respiratory: Cough. denies: Shortness of Breath, Wheezing Cardiovascular: Chest Pain, Light Headedness. denies: Palpitations, Orthopnea, Edema Gastrointestinal: Nausea, Vomiting, Abdominal Pain Genitourinary: No Symptoms Reported. denies: Dysuria, Frequency, Incontinence, Hematuria, Retention Musculoskeletal: No Symptoms Reported. denies: See HPI, Shoulder Pain, Arm Pain , Back Pain, Hand Pain, Leg Pain, Foot Pain, Neck Pain, Other Skin: No Symptoms Reported Neurological: Weakness, Other (headache ) - Physical Exam Vital Signs: Temperature 97.8 F Pulse Rate [Left Brachial] 117 Pulse Rate 102 Respiratory Rate 18 Blood Pressure [Right Arm] 178/98 Blood Pressure [Left Arm] 180/100 Blood Pressure [Left Radial 160/102 Artery] Blood Pressure 227/114 O2 Sat by Pulse Oximetry 100 Oriented: Normal Eyes: Normal. negative: Blurred Vision, Diplopia, Discharge, Pain, Redness, Photophobia, Other Ear: Normal Nose: Normal. negative: Injected, Discharge, Blood, Other Throat: Normal. negative: Tonsillar Hypertrophy, Red, Exudate, Dry, Other Respiratory: Rhonchi Throughout Cardiovascular: Tachycardia : Normal. negative: Dysuria, Hematuria, Frequency, Discharge, Bleeding Auscultation: Bowel Sounds: Increased Palpation: Normal Tenderness: Diffuse, Moderate. negative: Rebound, Guarding, Rigidity Skin: Normal Musculoskeletal: Normal Mood Description: Calm Affect: Normal Speech Pattern: Clear - Assessment/Plan (1) Diabetic gastroparesis Status: Acute Plan: NORMAL SALINE AT 125ML/HR, PHENERGAN 12.5MG IV Q4H PRN, CONTINUE TO MONITOR (2) Abdominal pain Qualifiers: Abdominal location: generalized Qualified Code(s): R10.84 - Generalized abdominal pain Status: Acute Plan: DEMEROL 50MG IV Q4H PRN, PEPCID 20MG IV Q12H, CONTINUE TO MONITOR (3) Nausea & vomiting Qualifiers: Vomiting Intractability: intractable Status: Acute Plan: PHENERGAN 12.5MG IV Q4H PRN, ZOFRAN 4MG IV Q6H PRN, CONTINUE TO MONITOR (4) Hypertension Qualifiers: Hypertension type: essential hypertension Qualified Code(s): I15.9 - Secondary hypertension, unspecified Status: Chronic Plan: CONTINUE CATAPRES PATCH WEEKLY, CONTINUE COZAAR 50MG PO DAILY, CONTINUE TO MONITOR (5) Diabetes mellitus type 1 Qualifiers: Diabetes mellitus complication status: with other specified complication Status: Chronic Plan: MONITOR OTBS, HUMULIN R SLIDING SCALE, CONTINUE TO MONITOR
[2017-07-11] MEDS: KLONOPIN TAB 1 MG PO PRN (21:52)
[2017-07-12] MEDS: DEMEROL INJ IVP PRN ×3 (03:43→15:23)
[2017-07-12] MEDS: NS 1000 ML 1,000 ML IV SCH ×6 (03:43→22:10)
[2017-07-12] MEDS: PHENERGAN INJ 25 MG IV PRN ×3 (05:09→15:22)
[2017-07-12 06:57] LABS: BASOPHILS # (AUTO) 0.1 X10^3/uL (0.0-0.1); BASOPHILS % (AUTO) 0.9 % (0.2-1.0); HEMATOCRIT 38.8 % (42.0-54.0); HEMOGLOBIN 12.6 g/dL (13.5-18.0); LYMPHOCYTES # (AUTO) 1.2 X10^3/uL (1.3-2.9); LYMPHOCYTES % (AUTO) 13.1 % (21.0-51.0); MEAN CORPUSCULAR HEMOGLOBIN 23.2 pg (27.0-34.0); MEAN CORPUSCULAR HGB CONC 32.4 g/dL (33.0-35.0); MEAN CORPUSCULAR VOLUME 71.5 fL (80.0-100.0); MEAN PLATELET VOLUME 9.1 fL (7.4-11.0); MONOCYTES # (AUTO) 0.6 x10^3/uL (0.3-0.8); MONOCYTES % (AUTO) 7.1 % (0.0-13.0); NEUTROPHILS # (AUTO) 7.2 x10^3/uL (2.2-4.8); NEUTROPHILS % (AUTO) 78.9 % (42.0-75.0); PLATELET COUNT 278 X10^3/uL (150.0-450.0); RED BLOOD COUNT 5.43 X10^6/uL (4.7-6.0); RED CELL DISTRIBUTION WIDTH 18.5 % (11.6-16.5); WHITE BLOOD COUNT 9.2 X10^3/uL (3.6-10.0)
[2017-07-12 07:05] LABS: ALANINE AMINOTRANSFERASE 21 Units/L (12-78); ALBUMIN 3.3 g/dL (3.4-5.0); ALKALINE PHOSPHATASE 112 Units/L (46-116); ASPARTATE AMINO TRANSFERASE 16 Units/L (15-37); BLOOD UREA NITROGEN 17 mg/dL (7-18); CALCIUM 7.7 mg/dL (8.5-10.1); CHLORIDE 101 mmol/L (98-107); COR CA(FOR HYPOALB) 8.3 mg/dL (8.5-10.1); COR NA(FOR HYPERGLY) 140 mmol/L (136-145); CREATININE 0.89 mg/dL (0.70-1.30); SODIUM 138 mmol/L (136-145); TOTAL PROTEIN 7.6 g/dL (6.4-8.2); eGFR BLACK RACES > 60 (>60); eGFR NON BLACK RACES > 60 (>60)
[2017-07-12 07:30] LABS: SERUM ACETONE SMALL (NEGATIVE)
[2017-07-12 08:08] LABS: ANISOCYTOSIS 1+; HYPOCHROMASIA 1+; PLATELET MORPHOLOGY COMMENT NORMAL (NORMAL)
[2017-07-12] MEDS: COZAAR PO SCH (08:27)
[2017-07-12] MEDS: PROTONIX TAB 40 MG PO SCH ×2 (08:27→22:07)
[2017-07-12] MEDS: K-DUR TAB 20 MEQ PO SCH (08:27)
[2017-07-12] MEDS: PEPCID 20 MG IV PREMIX* 20 MG/50 ML BAG IV SCH ×2 (08:28→22:07)
[2017-07-12] MEDS ORDERED: SODIUM BICARBONATE 8.4% INJ ADULT 100 ML in NS 1/2 1000 ML IV 1,000 ML IV PRN (10:30)
[2017-07-12 10:50] LABS: ABG ALLEN TEST POS; ABG BASE EXCESS 0.1 mmol/L (-2.0-2.0); ABG HCO3 24.7 mmol/L (22-26)
[2017-07-12] MEDS: HumuLIN R SC PRN ×3 (11:50→18:35)
[2017-07-12] MEDS: COLACE CAP 100 MG PO SCH (22:10)
[2017-07-12] MEDS: MILK OF MAGNESIA PO SCH (22:10)
[2017-07-13] MEDS: HumuLIN R SC PRN ×4 (03:08→18:13)
[2017-07-13] MEDS: NS 1000 ML 1,000 ML IV SCH ×4 (04:13→23:46)
[2017-07-13 06:53] LABS: BASOPHILS # (AUTO) 0.1 X10^3/uL (0.0-0.1); BASOPHILS % (AUTO) 1.1 % (0.2-1.0); EOSINOPHILS % (AUTO) 0.5 % (0.9-2.9); HEMATOCRIT 33.7 % (42.0-54.0); LYMPHOCYTES # (AUTO) 2.6 X10^3/uL (1.3-2.9); LYMPHOCYTES % (AUTO) 41.1 % (21.0-51.0); MEAN CORPUSCULAR HEMOGLOBIN 23.1 pg (27.0-34.0); MEAN CORPUSCULAR HGB CONC 32.6 g/dL (33.0-35.0); MEAN CORPUSCULAR VOLUME 70.7 fL (80.0-100.0); MEAN PLATELET VOLUME 8.5 fL (7.4-11.0); MONOCYTES # (AUTO) 0.7 x10^3/uL (0.3-0.8); MONOCYTES % (AUTO) 10.3 % (0.0-13.0); PLATELET COUNT 262 X10^3/uL (150.0-450.0); RED BLOOD COUNT 4.76 X10^6/uL (4.7-6.0); RED CELL DISTRIBUTION WIDTH 18.1 % (11.6-16.5); WHITE BLOOD COUNT 6.3 X10^3/uL (3.6-10.0)
[2017-07-13 07:14] LABS: ALANINE AMINOTRANSFERASE 16 Units/L (12-78); ALBUMIN 2.7 g/dL (3.4-5.0); ALKALINE PHOSPHATASE 87 Units/L (46-116); ASPARTATE AMINO TRANSFERASE 11 Units/L (15-37); BLOOD UREA NITROGEN 15 mg/dL (7-18); CALCIUM 7.7 mg/dL (8.5-10.1); CARBON DIOXIDE 27.9 mmol/L (21-32); CHLORIDE 105 mmol/L (98-107); COR CA(FOR HYPOALB) 8.7 mg/dL (8.5-10.1); COR NA(FOR HYPERGLY) 141 mmol/L (136-145); CREATININE 0.93 mg/dL (0.70-1.30); SODIUM 140 mmol/L (136-145); TOTAL PROTEIN 6.3 g/dL (6.4-8.2); eGFR BLACK RACES > 60 (>60); eGFR NON BLACK RACES > 60 (>60)
[2017-07-13 07:37] LABS: ANISOCYTOSIS 1+; HYPOCHROMASIA 1+; MICROCYTOSIS 1+; PLATELET MORPHOLOGY COMMENT NORMAL (NORMAL)
[2017-07-13 07:57] LABS: SERUM ACETONE NEGATIVE (NEGATIVE)
[2017-07-13] MEDS: COZAAR PO SCH (09:00)
[2017-07-13] MEDS: K-DUR TAB 20 MEQ PO SCH (09:12)
[2017-07-13] MEDS: PROTONIX TAB 40 MG PO SCH ×2 (09:12→20:27)
[2017-07-13] MEDS: PEPCID 20 MG IV PREMIX* 20 MG/50 ML BAG IV SCH ×2 (09:12→20:27)
[2017-07-13] MEDS ORDERED: TYLENOL SUPP 650 MG PR PRN (09:33)
[2017-07-13] MEDS ORDERED: NS 500 ML IV 500 ML IV ONE (09:33)
[2017-07-13] MEDS ORDERED: BENADRYL INJ 50 MG VIAL IVP PRN (09:33)
[2017-07-13] MEDS ORDERED: LASIX IVP ONE (09:34)
[2017-07-13] MEDS: K-RIDER 10 MEQ/NS 100 ML 10 MEQ/100 ML BAG IV PRN ×2 (09:38→11:15)
[2017-07-13] MEDS ORDERED: TYLENOL 325 MG TAB PO ONE (09:42)
[2017-07-13 09:59] LABS: ABG BASE EXCESS 3.2 mmol/L (-2.0-2.0); ABG HCO3 27.9 mmol/L (22-26)
[2017-07-13] MEDS ORDERED: NS 250 ML IV 250 ML IV ONE (11:31)
[2017-07-13] MEDS: COLACE CAP 100 MG PO SCH (20:27)
[2017-07-13] MEDS: MILK OF MAGNESIA PO SCH (20:27)
[2017-07-13] MEDS: PHENERGAN INJ 25 MG IV PRN (20:36)
[2017-07-13] MEDS: DEMEROL INJ IVP PRN (20:37)
[2017-07-13] MEDS: KLONOPIN TAB 1 MG PO PRN (20:37)
--- NOTE | 2017-07-13 20:42 | PCM.PROG ---
Progress Note - Progress Note for Day of Date: 07/10/17 - Subjective Subjective: was admitted for diabetic gastroparesis, abdominal pain, hyperglycemia, and HTN. Today, he is alert and oriented, lying in bed on morning rounds. He continues with nausea, vomiting and abdominal pain. On examination, he is noted to be tachycardic with HR 117. Bilateral lungs continue with rhonchi throughout. Abdomen is round, soft, and continues with diffuse tenderness on palpation. Normal range of motion noted to all extremities. His vitals this morning are 97.1-063-75-100%-181/92. Labs were obtained. Abnormal Labs include the following: WBC increased from 10.5 yesterday to 13.8 today, Hgb 12.0, Hct 36.9, MCV 71.2, MCH 23.2, MCHC 32.6, RDW 18.1, Glucose 230, Calcium 8.4, Alk Phos 125, Total Protein 8.3, Globulin 4.6, A /G Ratio 0.8. Patient noted to have received Demerol 50mg IV x3 thus far in the last 24 hours for pain and Zofran 4mg IV x3 and Phenergan 12.5mg IV x3 for nausea and vomiting. Today, we will resume home blood pressure and diabetic medications. Otherwise, we will continue with current plan of care. We plan to follow up with AM labs and continue to monitor patient. - Past Medical Family Social History Past Med/Fam/Surg Hx: No changes since H&P Allergies: Allergies codeine Allergy (Verified 07/09/17 11:54) morphine Allergy (Verified 07/09/17 11:54) - Review of Systems ROS: No change since H&P - Vital Signs and I&O's Vital Signs: Temperature 98.2 F Pulse Rate [Left Brachial] 93 Pulse Rate 102 Respiratory Rate 18 Blood Pressure [Right Arm] 151/98 Blood Pressure [Left Arm] 180/100 Blood Pressure [Left Radial 160/102 Artery] Blood Pressure 227/114 O2 Sat by Pulse Oximetry 100 Intake and Output: Intake & Output 07/11/17 07/12/17 07/13/17 07/14/17 11:59 11:59 11:59 11:59 Intake Total 2793 3166 3424 2450 Output Total 125 0 2000 Balance 2668 3166 3424 450 - Physical Exam Oriented: Normal Eyes: Normal. negative: Blurred Vision, Diplopia, Discharge, Pain, Redness, Photophobia, Other Ear: Normal Nose: Normal. negative: Injected, Discharge, Blood, Other Throat: Normal. negative: Tonsillar Hypertrophy, Red, Exudate, Dry, Other Respiratory: Generalized, Rhonchi Cardiovascular: Tachycardia : Normal. negative: Dysuria, Hematuria, Frequency, Discharge, Bleeding Auscultation: Bowel Sounds: Increased Palpation: Normal Tenderness: Diffuse, Moderate. negative: Rebound, Guarding, Rigidity Skin: Normal Musculoskeletal: Normal Mood Description: Calm Affect: Normal Speech Pattern: Clear, Appropriate - Laboratory and Diagnostics Result Diagrams: 07/13/17 06:32 07/13/17 15:40 Labs: Laboratory WBC 6.3 X10^3/uL (3.6-10.0) 07/13/17 06:32 RBC 4.76 X10^6/uL (4.7-6.0) 07/13/17 06:32 Hgb 11.0 g/dL (13.5-18.0) L 07/13/17 06:32 Hct 33.7 % (42.0-54.0) L 07/13/17 06:32 MCV 70.7 fL (80.0-100.0) L 07/13/17 06:32 MCH 23.1 pg (27.0-34.0) L 07/13/17 06:32 MCHC 32.6 g/dL (33.0-35.0) L 07/13/17 06:32 RDW 18.1 % (11.6-16.5) H 07/13/17 06:32 Plt Count 262 X10^3/uL (150.0-450.0) 07/13/17 06:32 Plt Count Comment Adequate (ADEQUATE) 07/13/17 06:32 MPV 8.5 fL (7.4-11.0) 07/13/17 06:32 Neut % 47.0 % (42.0-75.0) 07/13/17 06:32 Lymph % 41.1 % (21.0-51.0) 07/13/17 06:32 [place] % 10.3 % (0.0-13.0) 07/13/17 06:32 Eos % 0.5 % (0.9-2.9) L 07/13/17 06:32 Baso % 1.1 % (0.2-1.0) H 07/13/17 06:32 Neut # 3.0 x10^3/uL (2.2-4.8) 07/13/17 06:32 Lymph # 2.6 X10^3/uL (1.3-2.9) 07/13/17 06:32 [place] # 0.7 x10^3/uL (0.3-0.8) 07/13/17 06:32 Eos # 0.0 x10^3/uL (0.0-0.2) 07/13/17 06:32 Baso # 0.1 X10^3/uL (0.0-0.1) 07/13/17 06:32 Absolute Nucleated RBC 0.3 /100WBC 07/13/17 06:32 Plt Morphology Comment Normal (NORMAL) 07/13/17 06:32 RBC Morphology Abnormal (NORMAL) 07/13/17 06:32 Hypochromasia 1+ A 07/13/17 06:32 Anisocytosis 1+ A 07/13/17 06:32 Microcytosis 1+ A 07/13/17 06:32 Sample Site Lbra 07/13/17 09:41 ABG pH 7.430 (7.35-7.45) 07/13/17 09:41 ABG pCO2 42.0 mmHg (35.0-45.0) 07/13/17 09:41 ABG pO2 75.0 mmHg (80.0-100.0) L 07/13/17 09:41 ABG HCO3 27.9 mmol/L (22-26) H 07/13/17 09:41 ABG O2 Saturation 95.0 % (90-100) 07/13/17 09:41 ABG Base Excess 3.2 mmol/L (-2.0-2.0) H 07/13/17 09:41 Wang Test Na 07/13/17 09:41 A-a Gradient 22.0 mmHg 07/13/17 09:41 FiO2 21.000 07/13/17 09:41 Blood Gas Comments Les abg well-mtf 07/13/17 09:41 Sodium 140 mmol/L (136-145) 07/13/17 06:32 Corrected Sodium 141 mmol/L (136-145) 07/13/17 06:32 Potassium 3.6 mmol/L (3.5-5.1) 07/13/17 15:40 Chloride 105 mmol/L (98-107) 07/13/17 06:32 Carbon Dioxide 27.9 mmol/L (21-32) 07/13/17 06:32 BUN 15 mg/dL (7-18) 07/13/17 06:32 Creatinine 0.93 mg/dL (0.70-1.30) 07/13/17 06:32 Est GFR (MDRD) Af Amer > 60 (>60) 07/13/17 06:32 Est GFR (MDRD) Non-Af > 60 (>60) 07/13/17 06:32 Glucose 142 mg/dL (65-99) H 07/13/17 06:32 POC Glucose (mg/dL) 208 mg/dL (65-99) H 07/13/17 18:12 Calcium 7.7 mg/dL (8.5-10.1) L 07/13/17 06:32 Corrected Calcium 8.7 mg/dL (8.5-10.1) 07/13/17 06:32 Magnesium 2.0 mg/dL (1.7-2.9) 07/11/17 04:00 Total Bilirubin 0.60 mg/dL (0.2-1.0) 07/13/17 06:32 AST 11 Units/L (15-37) L 07/13/17 06:32 ALT 16 Units/L (12-78) 07/13/17 06:32 Alkaline Phosphatase 87 Units/L (46-116) 07/13/17 06:32 Creatine Kinase 356 Units/L (39-308) H 07/09/17 12:10 CK-MB (CK-2) 2.7 ng/mL (0-4.0) 07/09/17 12:10 CK/CKMB % Calc 0.8 % (<4) 07/09/17 12:10 Troponin I < 0.02 ng/mL (0-1.5) 07/09/17 12:10 Total Protein 6.3 g/dL (6.4-8.2) L 07/13/17 06:32 Albumin 2.7 g/dL (3.4-5.0) L 07/13/17 06:32 Globulin 3.6 g/dL (2.5-4.5) 07/13/17 06:32 Albumin/Globulin Ratio 0.8 Ratio (1.1-2.1) L 07/13/17 06:32 Amylase 62 Units/L (25-115) 07/09/17 12:10 Lipase 84 Units/L (73-393) 07/09/17 12:10 Specimen Type Clean catch urine 07/09/17 19:46 Urine Color Yellow (YELLOW) 07/09/17 19:46 Urine Appearance Clear (CLEAR) 07/09/17 19:46 Urine pH 5.0 (5.0 - 8.0) 07/09/17 19:46 Ur Specific [place] 1.020 (1.000-1.030) 07/09/17 19:46 Urine Protein 2+ (NEGATIVE) 07/09/17 19:46 Urine Glucose (UA) 4+ (NEGATIVE) 07/09/17 19:46 Urine Ketones 4+ (NEGATIVE) 07/09/17 19:46 Urine Occult Blood 2+ (NEGATIVE) 07/09/17 19:46 Urine Nitrite Negative (NEGATIVE) 07/09/17 19:46 Urine Bilirubin Negative (NEGATIVE) 07/09/17 19:46 Urine Urobilinogen Normal (NORMAL) 07/09/17 19:46 Ur Leukocyte Esterase Negative (NEGATIVE) 07/09/17 19:46 Urine RBC 2-3 /HPF (NEGATIVE) 07/09/17 19:46 Urine WBC 0-1 /HPF (NEGATIVE) 07/09/17 19:46 Ur Squamous Epith Cells Rare /HPF (NEGATIVE) 07/09/17 19:46 Amorphous Sediment Trace /HPF (NEGATIVE) 07/09/17 19:46 Urine Bacteria Negative /HPF (NEGATIVE) 07/09/17 19:46 Ur Culture Indicated? No/not indicated 07/09/17 19:46 Urine Opiates Screen Negative (NEG=<300) 07/09/17 19:46 Urine Methadone Screen Negative (NEG=<300) 07/09/17 19:46 Ur Barbiturates Screen Negative (NEG=<200) 07/09/17 19:46 Ur Phencyclidine Scrn Negative (NEG=<25) 07/09/17 19:46 Ur Amphetamines Screen Negative (NEG=<1000) 07/09/17 19:46 U Benzodiazepines Scrn Negative (NEG=<200) 07/09/17 19:46 Urine Cocaine Screen Negative (NEG=<300) 07/09/17 19:46 U Marijuana (THC) Screen Negative (NEG=<50) 07/09/17 19:46 Acetone, Semi-Quant Negative (NEGATIVE) 07/13/17 06:32 - Plan (1) Diabetic gastroparesis Status: Acute Plan: NORMAL SALINE AT 125ML/HR, PHENERGAN 12.5MG IV Q4H PRN, CONTINUE TO MONITOR (2) Abdominal pain Status: Acute Qualifiers: Abdominal location: generalized Qualified Code(s): R10.84 - Generalized abdominal pain Plan: DEMEROL 50MG IV Q4H PRN, PEPCID 20MG IV Q12H, CONTINUE TO MONITOR (3) Nausea & vomiting Status: Acute Qualifiers: Vomiting Intractability: intractable Plan: PHENERGAN 12.5MG IV Q4H PRN, ZOFRAN 4MG IV Q6H PRN, CONTINUE TO MONITOR (4) Hypertension Status: Chronic Qualifiers: Hypertension type: essential hypertension Qualified Code(s): I15.9 - Secondary hypertension, unspecified Plan: CONTINUE CATAPRES PATCH WEEKLY, CONTINUE COZAAR 50MG PO DAILY, CONTINUE TO MONITOR (5) Diabetes mellitus type 1 Status: Chronic Qualifiers: Diabetes mellitus complication status: with other specified complication Plan: MONITOR OTBS, HUMULIN R SLIDING SCALE, CONTINUE TO MONITOR
--- NOTE | 2017-07-13 21:29 | PCM.PROG ---
Progress Note - Progress Note for Day of Date: 07/11/17 - Subjective Subjective: was admitted for diabetic gastroparesis, abdominal pain, hyperglycemia, and HTN. Today, he is alert and oriented, lying in bed on morning rounds. He continues with nausea and abdominal pain. He denies improvement since we saw him yesterday. He also reports a non-productive cough today. On examination, he is noted to be tachycardic with HR 111. Bilateral lungs continue with rhonchi throughout. Abdomen is round, soft, and continues with diffuse tenderness on palpation. Normal range of motion noted to all extremities. His vitals this morning are 97.7-602-23-100%-180/92. Labs were obtained. Abnormal Labs include the following: WBC 13.4, HGB 12.1, HCT 37.6, POTASSIUM 3.4, GLUCOSE 185, CALCIUM 8.0. He continues with a small amount of serum acetones. Today, we will continue with aggressive IV hydration. Otherwise , we will continue with current plan of care. We plan to follow up with AM labs and continue to monitor patient. - Past Medical Family Social History Past Med/Fam/Surg Hx: No changes since H&P Allergies: Allergies codeine Allergy (Verified 07/09/17 11:54) morphine Allergy (Verified 07/09/17 11:54) - Review of Systems ROS: No change since H&P - Vital Signs and I&O's Vital Signs: Temperature 98.2 F Pulse Rate [Left Brachial] 93 Pulse Rate 102 Respiratory Rate 18 Blood Pressure [Right Arm] 151/98 Blood Pressure [Left Arm] 180/100 Blood Pressure [Left Radial 160/102 Artery] Blood Pressure 227/114 O2 Sat by Pulse Oximetry 100 Intake and Output: Intake & Output 07/11/17 07/12/17 07/13/17 07/14/17 11:59 11:59 11:59 11:59 Intake Total 2793 3166 3424 2450 Output Total 125 0 2000 Balance 2668 3166 3424 450 - Physical Exam Oriented: Normal Eyes: Normal. negative: Blurred Vision, Diplopia, Discharge, Pain, Redness, Photophobia, Other Ear: Normal Nose: Normal. negative: Injected, Discharge, Blood, Other Throat: Normal. negative: Tonsillar Hypertrophy, Red, Exudate, Dry, Other Respiratory: Generalized, Rhonchi Cardiovascular: Tachycardia : Normal. negative: Dysuria, Hematuria, Frequency, Discharge, Bleeding Auscultation: Bowel Sounds: Increased Palpation: Normal Tenderness: Diffuse, Moderate. negative: Rebound, Guarding, Rigidity Skin: Normal Musculoskeletal: Normal Mood Description: Calm Affect: Normal Speech Pattern: Clear, Appropriate - Laboratory and Diagnostics Result Diagrams: 07/13/17 06:32 07/13/17 15:40 Labs: Laboratory WBC 6.3 X10^3/uL (3.6-10.0) 07/13/17 06:32 RBC 4.76 X10^6/uL (4.7-6.0) 07/13/17 06:32 Hgb 11.0 g/dL (13.5-18.0) L 07/13/17 06:32 Hct 33.7 % (42.0-54.0) L 07/13/17 06:32 MCV 70.7 fL (80.0-100.0) L 07/13/17 06:32 MCH 23.1 pg (27.0-34.0) L 07/13/17 06:32 MCHC 32.6 g/dL (33.0-35.0) L 07/13/17 06:32 RDW 18.1 % (11.6-16.5) H 07/13/17 06:32 Plt Count 262 X10^3/uL (150.0-450.0) 07/13/17 06:32 Plt Count Comment Adequate (ADEQUATE) 07/13/17 06:32 MPV 8.5 fL (7.4-11.0) 07/13/17 06:32 Neut % 47.0 % (42.0-75.0) 07/13/17 06:32 Lymph % 41.1 % (21.0-51.0) 07/13/17 06:32 [place] % 10.3 % (0.0-13.0) 07/13/17 06:32 Eos % 0.5 % (0.9-2.9) L 07/13/17 06:32 Baso % 1.1 % (0.2-1.0) H 07/13/17 06:32 Neut # 3.0 x10^3/uL (2.2-4.8) 07/13/17 06:32 Lymph # 2.6 X10^3/uL (1.3-2.9) 07/13/17 06:32 [place] # 0.7 x10^3/uL (0.3-0.8) 07/13/17 06:32 Eos # 0.0 x10^3/uL (0.0-0.2) 07/13/17 06:32 Baso # 0.1 X10^3/uL (0.0-0.1) 07/13/17 06:32 Absolute Nucleated RBC 0.3 /100WBC 07/13/17 06:32 Plt Morphology Comment Normal (NORMAL) 07/13/17 06:32 RBC Morphology Abnormal (NORMAL) 07/13/17 06:32 Hypochromasia 1+ A 07/13/17 06:32 Anisocytosis 1+ A 07/13/17 06:32 Microcytosis 1+ A 07/13/17 06:32 Sample Site Lbra 07/13/17 09:41 ABG pH 7.430 (7.35-7.45) 07/13/17 09:41 ABG pCO2 42.0 mmHg (35.0-45.0) 07/13/17 09:41 ABG pO2 75.0 mmHg (80.0-100.0) L 07/13/17 09:41 ABG HCO3 27.9 mmol/L (22-26) H 07/13/17 09:41 ABG O2 Saturation 95.0 % (90-100) 07/13/17 09:41 ABG Base Excess 3.2 mmol/L (-2.0-2.0) H 07/13/17 09:41 Wang Test Na 07/13/17 09:41 A-a Gradient 22.0 mmHg 07/13/17 09:41 FiO2 21.000 07/13/17 09:41 Blood Gas Comments Les abg well-mtf 07/13/17 09:41 Sodium 140 mmol/L (136-145) 07/13/17 06:32 Corrected Sodium 141 mmol/L (136-145) 07/13/17 06:32 Potassium 3.6 mmol/L (3.5-5.1) 07/13/17 15:40 Chloride 105 mmol/L (98-107) 07/13/17 06:32 Carbon Dioxide 27.9 mmol/L (21-32) 07/13/17 06:32 BUN 15 mg/dL (7-18) 07/13/17 06:32 Creatinine 0.93 mg/dL (0.70-1.30) 07/13/17 06:32 Est GFR (MDRD) Af Amer > 60 (>60) 07/13/17 06:32 Est GFR (MDRD) Non-Af > 60 (>60) 07/13/17 06:32 Glucose 142 mg/dL (65-99) H 07/13/17 06:32 POC Glucose (mg/dL) 208 mg/dL (65-99) H 07/13/17 18:12 Calcium 7.7 mg/dL (8.5-10.1) L 07/13/17 06:32 Corrected Calcium 8.7 mg/dL (8.5-10.1) 07/13/17 06:32 Magnesium 2.0 mg/dL (1.7-2.9) 07/11/17 04:00 Total Bilirubin 0.60 mg/dL (0.2-1.0) 07/13/17 06:32 AST 11 Units/L (15-37) L 07/13/17 06:32 ALT 16 Units/L (12-78) 07/13/17 06:32 Alkaline Phosphatase 87 Units/L (46-116) 07/13/17 06:32 Creatine Kinase 356 Units/L (39-308) H 07/09/17 12:10 CK-MB (CK-2) 2.7 ng/mL (0-4.0) 07/09/17 12:10 CK/CKMB % Calc 0.8 % (<4) 07/09/17 12:10 Troponin I < 0.02 ng/mL (0-1.5) 07/09/17 12:10 Total Protein 6.3 g/dL (6.4-8.2) L 07/13/17 06:32 Albumin 2.7 g/dL (3.4-5.0) L 07/13/17 06:32 Globulin 3.6 g/dL (2.5-4.5) 07/13/17 06:32 Albumin/Globulin Ratio 0.8 Ratio (1.1-2.1) L 07/13/17 06:32 Amylase 62 Units/L (25-115) 07/09/17 12:10 Lipase 84 Units/L (73-393) 07/09/17 12:10 Specimen Type Clean catch urine 07/09/17 19:46 Urine Color Yellow (YELLOW) 07/09/17 19:46 Urine Appearance Clear (CLEAR) 07/09/17 19:46 Urine pH 5.0 (5.0 - 8.0) 07/09/17 19:46 Ur Specific [place] 1.020 (1.000-1.030) 07/09/17 19:46 Urine Protein 2+ (NEGATIVE) 07/09/17 19:46 Urine Glucose (UA) 4+ (NEGATIVE) 07/09/17 19:46 Urine Ketones 4+ (NEGATIVE) 07/09/17 19:46 Urine Occult Blood 2+ (NEGATIVE) 07/09/17 19:46 Urine Nitrite Negative (NEGATIVE) 07/09/17 19:46 Urine Bilirubin Negative (NEGATIVE) 07/09/17 19:46 Urine Urobilinogen Normal (NORMAL) 07/09/17 19:46 Ur Leukocyte Esterase Negative (NEGATIVE) 07/09/17 19:46 Urine RBC 2-3 /HPF (NEGATIVE) 07/09/17 19:46 Urine WBC 0-1 /HPF (NEGATIVE) 07/09/17 19:46 Ur Squamous Epith Cells Rare /HPF (NEGATIVE) 07/09/17 19:46 Amorphous Sediment Trace /HPF (NEGATIVE) 07/09/17 19:46 Urine Bacteria Negative /HPF (NEGATIVE) 07/09/17 19:46 Ur Culture Indicated? No/not indicated 07/09/17 19:46 Urine Opiates Screen Negative (NEG=<300) 07/09/17 19:46 Urine Methadone Screen Negative (NEG=<300) 07/09/17 19:46 Ur Barbiturates Screen Negative (NEG=<200) 07/09/17 19:46 Ur Phencyclidine Scrn Negative (NEG=<25) 07/09/17 19:46 Ur Amphetamines Screen Negative (NEG=<1000) 07/09/17 19:46 U Benzodiazepines Scrn Negative (NEG=<200) 07/09/17 19:46 Urine Cocaine Screen Negative (NEG=<300) 07/09/17 19:46 U Marijuana (THC) Screen Negative (NEG=<50) 07/09/17 19:46 Acetone, Semi-Quant Negative (NEGATIVE) 07/13/17 06:32 - Plan (1) Diabetic gastroparesis Status: Acute Plan: NORMAL SALINE AT 125ML/HR, PHENERGAN 12.5MG IV Q4H PRN, CONTINUE TO MONITOR (2) Abdominal pain Status: Acute Qualifiers: Abdominal location: generalized Qualified Code(s): R10.84 - Generalized abdominal pain Plan: DEMEROL 50MG IV Q4H PRN, PEPCID 20MG IV Q12H, CONTINUE TO MONITOR (3) Nausea & vomiting Status: Acute Qualifiers: Vomiting Intractability: intractable Plan: PHENERGAN 12.5MG IV Q4H PRN, ZOFRAN 4MG IV Q6H PRN, CONTINUE TO MONITOR (4) Hypertension Status: Chronic Qualifiers: Hypertension type: essential hypertension Qualified Code(s): I15.9 - Secondary hypertension, unspecified Plan: CONTINUE CATAPRES PATCH WEEKLY, CONTINUE COZAAR 50MG PO DAILY, CONTINUE TO MONITOR (5) Diabetes mellitus type 1 Status: Chronic Qualifiers: Diabetes mellitus complication status: with other specified complication Plan: MONITOR OTBS, HUMULIN R SLIDING SCALE, CONTINUE TO MONITOR
[2017-07-14 04:23] LABS: ABG BASE EXCESS 7.6 mmol/L (-2.0-2.0)
[2017-07-14 04:24] LABS: ABG ALLEN TEST POS; ABG HCO3 32.7 mmol/L (22-26)
[2017-07-14 06:19] LABS: EOSINOPHILS # (AUTO) 0.1 x10^3/uL (0.0-0.2); EOSINOPHILS % (AUTO) 1.1 % (0.9-2.9); HEMATOCRIT 32.4 % (42.0-54.0); HEMOGLOBIN 10.9 g/dL (13.5-18.0); LYMPHOCYTES # (AUTO) 1.9 X10^3/uL (1.3-2.9); LYMPHOCYTES % (AUTO) 42.7 % (21.0-51.0); MEAN CORPUSCULAR HEMOGLOBIN 23.4 pg (27.0-34.0); MEAN CORPUSCULAR HGB CONC 33.5 g/dL (33.0-35.0); MEAN CORPUSCULAR VOLUME 69.8 fL (80.0-100.0); MONOCYTES # (AUTO) 0.4 x10^3/uL (0.3-0.8); NEUTROPHILS # (AUTO) 2.1 x10^3/uL (2.2-4.8); NEUTROPHILS % (AUTO) 46.2 % (42.0-75.0); PLATELET COUNT 248 X10^3/uL (150.0-450.0); RED BLOOD COUNT 4.64 X10^6/uL (4.7-6.0); RED CELL DISTRIBUTION WIDTH 18.1 % (11.6-16.5); WHITE BLOOD COUNT 4.6 X10^3/uL (3.6-10.0)
[2017-07-14 06:51] LABS: HYPOCHROMASIA 1+; MICROCYTOSIS 1+; PLATELET MORPHOLOGY COMMENT NORMAL (NORMAL)
[2017-07-14 07:10] LABS: ALANINE AMINOTRANSFERASE 20 Units/L (12-78); ALBUMIN 2.7 g/dL (3.4-5.0); ALKALINE PHOSPHATASE 91 Units/L (46-116); ASPARTATE AMINO TRANSFERASE 17 Units/L (15-37); BLOOD UREA NITROGEN 11 mg/dL (7-18); CALCIUM 7.8 mg/dL (8.5-10.1); CARBON DIOXIDE 28.6 mmol/L (21-32); CHLORIDE 102 mmol/L (98-107); COR CA(FOR HYPOALB) 8.8 mg/dL (8.5-10.1); COR NA(FOR HYPERGLY) 141 mmol/L (136-145); CREATININE 0.81 mg/dL (0.70-1.30); SODIUM 139 mmol/L (136-145); TOTAL PROTEIN 6.2 g/dL (6.4-8.2); eGFR BLACK RACES > 60 (>60); eGFR NON BLACK RACES > 60 (>60)
[2017-07-14] MEDS: NS 1000 ML 1,000 ML IV SCH (08:19)
[2017-07-14] MEDS: PROTONIX TAB 40 MG PO SCH (09:50)
[2017-07-14] MEDS: COZAAR PO SCH (09:50)
[2017-07-14] MEDS: PEPCID 20 MG IV PREMIX* 20 MG/50 ML BAG IV SCH (09:51)
[2017-07-14] MEDS: K-DUR TAB 20 MEQ PO SCH (09:51)
[2017-07-14] MEDS ORDERED: NS + KCL 20 MEQ/L 1,000 ML IV SCH (10:00)
[2017-07-14] MEDS: HumuLIN R SC PRN ×3 (10:00→14:33)
[2017-07-14 12:44] VITALS: BP 159/88
== END 2017-07-14 15:05 | disposition home or self-care (01) | DRG 74 ==
LOC: ER 12:01 → OBS 14:11 → OBSVTOIN 07-10 09:00
PROVIDERS: ADMIT Internal Medicine; ATTEND Internal Medicine
DX: E10.43 Type 1 diabetes mellitus with diabetic autonomic (poly)neuropathy (principal); K31.84 Gastroparesis; E10.65 Type 1 diabetes mellitus with hyperglycemia; R10.84 Generalized abdominal pain; I10 Essential (primary) hypertension; F41.8 Other specified anxiety disorders; E78.2 Mixed hyperlipidemia; K21.9 Gastro-esophageal reflux disease without esophagitis; R94.31 Abnormal electrocardiogram [ECG] [EKG]; R11.2 Nausea with vomiting, unspecified; R00.0 Tachycardia, unspecified
CPT/HCPCS: 36415; 36600; 80053; 80307; 81001; 82009; 82150; 82550; 82553; 82803; 83690; 83735; 84132; 84484; 85025; 93005; 93010; 96365; 96374; 96375; 99284; A4216; A4222; S0028; G0378; G0434; J1200; J1815; J1940; J2175; J2405; J2550; J3480; J3490

== ENCOUNTER → 2017-07-15 | Outpatient (CLI) | payer MEDICAID ==
[2017-07-14 12:44] VITALS: BP 159/88
--- NOTE | 2017-07-15 10:18 | RAD ---
HISTORY: Neck pain Study: Three views cervical spine Comparison: None Findings: There is preservation of vertebral body height. There is mild reversal of the cervical lordosis which could be positional or related to muscle spasm. No acute fracture or subluxation is seen. The atlant oaxial junction is intact. There is no prevertebral soft tissue swelling. No destructive osseous lesi ons are seen. A right-sided Port-A-Cath is noted. The lung apices are clear. IMPRESSION: Mild reversal of the cervical lordosis which could be positional or related to muscle spasm. Reported By:
== END | disposition home or self-care (01) | DRG 552 ==
LOC: RAD 09:10
DX: M54.2 Cervicalgia (principal); M40.50 Lordosis, unspecified, site unspecified
CPT/HCPCS: 72040

== ENCOUNTER 2017-07-22 00:52 | Inpatient (IN) | payer MEDICAID ==
[2017-07-22] MEDS ORDERED: NS 1000 ML 1,000 ML ONE (01:00)
[2017-07-22] MEDS ORDERED: PHENERGAN INJ 25 MG ONE (01:03)
[2017-07-22] MEDS ORDERED: DEMEROL INJ ONE (01:03)
[2017-07-22] MEDS ORDERED: DEMEROL INJ IVP ONE (01:05)
[2017-07-22] MEDS ORDERED: NS 1000 ML 1,000 ML IV ONE (01:06)
[2017-07-22] MEDS ORDERED: PHENERGAN INJ 25 MG IVP ONE (01:06)
--- NOTE | 2017-07-22 01:14 | DR.GENAD ---
HPI - PCP Primary Care Physician: ethan - HPI Comment HPI Comment: known gastroparesis - Complaint/Symptoms Chief Complaint:: nausea/vomiting - Nurses notes reviewed Nurses Notes Review: Yes - Source History Provided: Patient - Mode of Arrival Mode of Arrival: Ambulatory - Timing Onset of Chief Complaint: 07/22/17 Came on: Gradually, At Night - Duration Duration: Constant - Severity Severity: Severe PMH - PMH Past Medical History: Yes Past Medical History: Anxiety, Diabetes, Dyslipidemia, GERD, Hypertension Past Medical History Comment: gastroparesis Past Surgical History: Yes Surgical History: Cholecystectomy, Ortho Surgery, Other - Family History History of Family Medical Conditions: Yes Family Medical History: Diabetes Mellitus, Hypertension - Social History Does any household member use tobacco: No Alcohol Use: None Do you use any recreational Drugs:: No Lives With: Family Lives Where: Home - infectious screening In the last 2 months have you had wt loss of >10#?: NO Have you had fever, night sweats or hemotysis?: No Have you traveled outside the country in the last 6 months?: No Isolation: Standard ROS - Review of Systems Constitutional: No Symptoms Reported Eyes: No Symptoms Reported ENTM: No Symptoms Reported Respiratoy: No Symptoms Reported Cardiovascular: No Symptoms Reported Gastrointestinal/Abdominal: Abdominal Pain, Nausea, Vomiting Genitourinary: No Symptoms Reported Neurological: No Symptoms Reported Musculoskeletal: No Symptoms Reported Integumentary: No Symptoms Reported Hematologic/Lymphatic: No Symptoms Reported Endocrine: No Symptoms Reported Psychiatric: No Symptoms Reported All Other Systems: Reviewed and Negative PE - Vital Signs Vitals: Temperature 99 F Pulse Rate 132 Respiratory Rate 26 Blood Pressure [Right Arm] 159/88 Blood Pressure [Left Arm] 180/100 Blood Pressure [Left Radial 160/102 Artery] Blood Pressure 183/101 O2 Sat by Pulse Oximetry 97 - General Limitations: No Limitations General Appearance: Alert (ill appearing but NAD) - Head Head Exam: Normal Inspection - Eyes Eye exam: Normal Appearance - ENT ENT Exam: Normal Exam - Neck Neck Exam: Full ROM, Trachea Midline. negative: Tenderness, Meningismus, Lymphadenopathy - Respiratory Respiratory Exam: Normal Lung Sounds Bilat Respiratory Exam: Bilateral Clear to Auscultation - Cardiovascular Cardiovascular Exam: Regular Rate, Normal Rhythm. negative: Systolic Murmur, Diastolic Murmur - Abdominal Exam Abdominal Exam: Normal Inspection, Normal Bowel Sounds, Tenderness (mild, diffuse.). negative: Guarding, Rebound, Rigidity, Dimnished Bowel Sounds, Hyperactive Bowel Sounds, Mass, Pulsatile Mass, Hernia Abdominal Tenderness: Mild - Extremities Extremities Exam: Normal Inspection, Full ROM, Tenderness - Neurologic Neurological Exam: Alert, Oriented X3 - Psychiatric Psychiatric Exam: Normal Affect - Skin Skin Exam: Warm, Dry, Intact ROR - Labs Reviewed Laboratory Results Reviewed?: Yes (acetone small) Result Diagrams: 07/22/17 01:00 07/22/17 01:00 Laboratory: WBC 15.6 X10^3/uL (3.6-10.0) H 07/22/17 01:00 RBC 5.46 X10^6/uL (4.7-6.0) 07/22/17 01:00 Hgb 12.7 g/dL (13.5-18.0) L 07/22/17 01:00 Hct 39.5 % (42.0-54.0) L 07/22/17 01:00 MCV 72.4 fL (80.0-100.0) L 07/22/17 01:00 MCH 23.3 pg (27.0-34.0) L 07/22/17 01:00 MCHC 32.2 g/dL (33.0-35.0) L 07/22/17 01:00 RDW 19.6 % (11.6-16.5) H 07/22/17 01:00 Plt Count 352 X10^3/uL (150.0-450.0) 07/22/17 01:00 Plt Count Comment Adequate (ADEQUATE) 07/22/17 01:00 MPV 9.1 fL (7.4-11.0) 07/22/17 01:00 Neut % 85.2 % (42.0-75.0) H 07/22/17 01:00 Lymph % 10.3 % (21.0-51.0) L 07/22/17 01:00 [place] % 4.0 % (0.0-13.0) 07/22/17 01:00 Eos % 0.0 % (0.9-2.9) L 07/22/17 01:00 Baso % 0.5 % (0.2-1.0) 07/22/17 01:00 Neut # 13.3 x10^3/uL (2.2-4.8) H 07/22/17 01:00 Lymph # 1.6 X10^3/uL (1.3-2.9) 07/22/17 01:00 [place] # 0.6 x10^3/uL (0.3-0.8) 07/22/17 01:00 Eos # 0.0 x10^3/uL (0.0-0.2) 07/22/17 01:00 Baso # 0.1 X10^3/uL (0.0-0.1) 07/22/17 01:00 Absolute Nucleated RBC 0.0 /100WBC 07/22/17 01:00 Plt Morphology Comment Normal (NORMAL) 07/22/17 01:00 RBC Morphology Abnormal (NORMAL) 07/22/17 01:00 Hypochromasia Slight A 07/22/17 01:00 Sodium 137 mmol/L (136-145) 07/22/17 01:00 Corrected Sodium 145 mmol/L (136-145) 07/22/17 01:00 Potassium 3.9 mmol/L (3.5-5.1) 07/22/17 01:00 Chloride 97 mmol/L (98-107) L 07/22/17 01:00 Carbon Dioxide 26.4 mmol/L (21-32) 07/22/17 01:00 BUN 21 mg/dL (7-18) H 07/22/17 01:00 Creatinine 1.29 mg/dL (0.70-1.30) 07/22/17 01:00 Est GFR (MDRD) Af Amer > 60 (>60) 07/22/17 01:00 Est GFR (MDRD) Non-Af > 60 (>60) 07/22/17 01:00 Glucose 443 mg/dL (65-99) H 07/22/17 01:00 Calcium 9.5 mg/dL (8.5-10.1) 07/22/17 01:00 Corrected Calcium TNP 07/22/17 01:00 Total Bilirubin 0.30 mg/dL (0.2-1.0) 07/22/17 01:00 AST 11 Units/L (15-37) L 07/22/17 01:00 ALT 21 Units/L (12-78) 07/22/17 01:00 Alkaline Phosphatase 139 Units/L (46-116) H 07/22/17 01:00 Total Protein 9.0 g/dL (6.4-8.2) H 07/22/17 01:00 Albumin 4.2 g/dL (3.4-5.0) 07/22/17 01:00 Globulin 4.8 g/dL (2.5-4.5) H 07/22/17 01:00 Albumin/Globulin Ratio 0.9 Ratio (1.1-2.1) L 07/22/17 01:00 Amylase 93 Units/L (25-115) 07/22/17 01:00 Lipase 97 Units/L (73-393) 07/22/17 01:00 Acetone, Semi-Quant Small (NEGATIVE) H 07/22/17 01:00 - XRAY XRAY Interpreted by: Radiologist, Self, Both XRAY Findings: nothing acute - Discharge Plan Condition: Stable - Follow ups/Referrals Follow ups/Referrals: Williams Worthington [Primary Care Provider] - 3 days - Instructions Additional Notes - Additional Notes Additional Notes: Spoke with Dr Case, will admit for further tx.
[2017-07-22 01:19] LABS: BASOPHILS # (AUTO) 0.1 X10^3/uL (0.0-0.1); BASOPHILS % (AUTO) 0.5 % (0.2-1.0); HEMATOCRIT 39.5 % (42.0-54.0); HEMOGLOBIN 12.7 g/dL (13.5-18.0); LYMPHOCYTES # (AUTO) 1.6 X10^3/uL (1.3-2.9); LYMPHOCYTES % (AUTO) 10.3 % (21.0-51.0); MEAN CORPUSCULAR HEMOGLOBIN 23.3 pg (27.0-34.0); MEAN CORPUSCULAR HGB CONC 32.2 g/dL (33.0-35.0); MEAN CORPUSCULAR VOLUME 72.4 fL (80.0-100.0); MEAN PLATELET VOLUME 9.1 fL (7.4-11.0); MONOCYTES # (AUTO) 0.6 x10^3/uL (0.3-0.8); NEUTROPHILS # (AUTO) 13.3 x10^3/uL (2.2-4.8); NEUTROPHILS % (AUTO) 85.2 % (42.0-75.0); PLATELET COUNT 352 X10^3/uL (150.0-450.0); RED BLOOD COUNT 5.46 X10^6/uL (4.7-6.0); RED CELL DISTRIBUTION WIDTH 19.6 % (11.6-16.5); WHITE BLOOD COUNT 15.6 X10^3/uL (3.6-10.0)
[2017-07-22 01:26] LABS: ALANINE AMINOTRANSFERASE 21 Units/L (12-78); ALBUMIN 4.2 g/dL (3.4-5.0); ALKALINE PHOSPHATASE 139 Units/L (46-116); AMYLASE 93 Units/L (25-115); ASPARTATE AMINO TRANSFERASE 11 Units/L (15-37); BLOOD UREA NITROGEN 21 mg/dL (7-18); CALCIUM 9.5 mg/dL (8.5-10.1); CARBON DIOXIDE 26.4 mmol/L (21-32); CHLORIDE 97 mmol/L (98-107); COR NA(FOR HYPERGLY) 145 mmol/L (136-145); CREATININE 1.29 mg/dL (0.70-1.30); LIPASE 97 Units/L (73-393); SODIUM 137 mmol/L (136-145); eGFR BLACK RACES > 60 (>60); eGFR NON BLACK RACES > 60 (>60)
--- NOTE | 2017-07-22 01:39 | RAD ---
Acute abdominal series Indication:Abdominal pain Comparison: 04/15/2017 Findings: Stable positioning of right chest wall [employer]. The trachea is midline. The cardiac silhouette is unremarkable. The lungs are clear without focal i nfiltrate or effusion. The bony thorax is unremarkable. Flat and upright evaluation of the abdomen demonstrates diffuse increased fecal material throughout t he colon and rectum. No pathological soft tissue mass or calcification can be observed. The bony str uctures are grossly intact. Previous cholecystectomy is noted. IMPRESSION: 1. No acute cardiopulmonary disease. 2. Mild constipation. Reported By:
[2017-07-22 01:44] LABS: HYPOCHROMASIA SLIGHT; PLATELET MORPHOLOGY COMMENT NORMAL (NORMAL)
[2017-07-22] MEDS ORDERED: ZOFRAN INJ 4 MG VIAL 16 MG, ATIVAN INJ 2 MG VIAL 1 MG, DECADRON INJ 10 MG in NS 50 ML I... IV ONE (02:26)
[2017-07-22] MEDS ORDERED: HumuLIN R SUBCUT STA (02:30)
[2017-07-22] MEDS ORDERED: DECADRON INJ ONE (02:44)
[2017-07-22] MEDS ORDERED: ZOFRAN INJ 4 MG VIAL ONE ×2 (02:44→09:24)
[2017-07-22] MEDS ORDERED: NS 100 ML IV 100 ML IV ONE (02:44)
[2017-07-22] MEDS ORDERED: ATIVAN INJ 2 MG VIAL ONE (02:45)
[2017-07-22] MEDS ORDERED: LOPRESSOR INJ 5 MG AMP ONE (03:27)
[2017-07-22] MEDS ORDERED: LOPRESSOR INJ 5 MG AMP IVP ONE (03:31)
[2017-07-22] MEDS ORDERED: CATAPRES-TTS-3 TD SCH (05:00)
[2017-07-22 05:24] VITALS: BMI 25.9
[2017-07-22] MEDS: DEMEROL INJ IVP PRN ×4 (06:25→22:00)
[2017-07-22] MEDS ORDERED: COZAAR ONE (06:32)
[2017-07-22] MEDS ORDERED: PEPCID 20 MG IV PREMIX* 20 MG/50 ML BAG IV ONE ×2 (06:33→06:44)
[2017-07-22 06:34] LABS: BASOPHILS # (AUTO) 0.1 X10^3/uL (0.0-0.1); BASOPHILS % (AUTO) 0.3 % (0.2-1.0); HEMATOCRIT 38.2 % (42.0-54.0); HEMOGLOBIN 12.3 g/dL (13.5-18.0); LYMPHOCYTES # (AUTO) 0.6 X10^3/uL (1.3-2.9); LYMPHOCYTES % (AUTO) 3.2 % (21.0-51.0); MEAN CORPUSCULAR HEMOGLOBIN 23.2 pg (27.0-34.0); MEAN CORPUSCULAR HGB CONC 32.1 g/dL (33.0-35.0); MEAN CORPUSCULAR VOLUME 72.1 fL (80.0-100.0); MEAN PLATELET VOLUME 8.9 fL (7.4-11.0); MONOCYTES # (AUTO) 0.2 x10^3/uL (0.3-0.8); MONOCYTES % (AUTO) 0.9 % (0.0-13.0); NEUTROPHILS # (AUTO) 16.7 x10^3/uL (2.2-4.8); NEUTROPHILS % (AUTO) 95.6 % (42.0-75.0); PLATELET COUNT 299 X10^3/uL (150.0-450.0); RED CELL DISTRIBUTION WIDTH 19.6 % (11.6-16.5); WHITE BLOOD COUNT 17.5 X10^3/uL (3.6-10.0)
[2017-07-22] MEDS: COZAAR PO SCH ×2 (06:43→09:02)
[2017-07-22 06:49] LABS: ALANINE AMINOTRANSFERASE 23 Units/L (12-78); ALBUMIN 3.9 g/dL (3.4-5.0); ALKALINE PHOSPHATASE 133 Units/L (46-116); ASPARTATE AMINO TRANSFERASE 9 Units/L (15-37); BLOOD UREA NITROGEN 22 mg/dL (7-18); CALCIUM 9.1 mg/dL (8.5-10.1); CHLORIDE 101 mmol/L (98-107); COR NA(FOR HYPERGLY) 147 mmol/L (136-145); CREATININE 1.12 mg/dL (0.70-1.30); SODIUM 139 mmol/L (136-145); TOTAL PROTEIN 8.6 g/dL (6.4-8.2); eGFR BLACK RACES > 60 (>60); eGFR NON BLACK RACES > 60 (>60)
[2017-07-22 06:51] LABS: PLATELET MORPHOLOGY COMMENT NORMAL (NORMAL)
[2017-07-22] MEDS ORDERED: PATIENT'S HOME MEDICATION (Losartan Potassium [Losartan Potassium] 100 MG) PO SCH (09:00)
[2017-07-22] MEDS ORDERED: PATIENT'S HOME MEDICATION (Famotidine [Pepcid] 40 MG) PO SCH (09:00)
[2017-07-22] MEDS: CHECK PATCH XX SCH ×2 (09:17→21:52)
[2017-07-22] MEDS: NS 1000 ML 1,000 ML IV SCH ×4 (09:17→21:52)
[2017-07-22] MEDS: K-DUR TAB 20 MEQ PO SCH ×2 (09:18→10:30)
[2017-07-22] MEDS: PEPCID TAB 20 MG PO SCH ×3 (09:18→21:53)
[2017-07-22] MEDS: PROTONIX TAB 40 MG PO SCH ×3 (09:18→21:53)
[2017-07-22] MEDS: ZOFRAN INJ 4 MG VIAL IVP PRN ×3 (09:25→22:00)
[2017-07-22] MEDS: HumuLIN R SC PRN ×3 (09:34→16:44)
[2017-07-22] MEDS: TOUJEO SOLOSTAR PEN SC SCH (10:24)
[2017-07-22] MEDS: NORMODYNE INJ 20 MG VIAL IVP PRN (11:04)
[2017-07-22] MEDS: SNACK - Diabetic Appropriate PO SCH (21:52)
[2017-07-23] MEDS: DEMEROL INJ IVP PRN ×3 (04:05→20:25)
[2017-07-23] MEDS: ZOFRAN INJ 4 MG VIAL IVP PRN ×3 (04:05→20:27)
[2017-07-23] MEDS: NS 1000 ML 1,000 ML IV SCH ×4 (04:16→23:28)
[2017-07-23] MEDS: HumuLIN R SC PRN ×2 (05:54→17:11)
[2017-07-23 06:14] LABS: BASOPHILS % (AUTO) 0.1 % (0.2-1.0); HEMATOCRIT 31.1 % (42.0-54.0); HEMOGLOBIN 10.2 g/dL (13.5-18.0); LYMPHOCYTES # (AUTO) 1.2 X10^3/uL (1.3-2.9); MEAN CORPUSCULAR HEMOGLOBIN 23.4 pg (27.0-34.0); MEAN CORPUSCULAR HGB CONC 32.8 g/dL (33.0-35.0); MEAN CORPUSCULAR VOLUME 71.3 fL (80.0-100.0); MEAN PLATELET VOLUME 8.7 fL (7.4-11.0); NEUTROPHILS # (AUTO) 14.9 x10^3/uL (2.2-4.8); NEUTROPHILS % (AUTO) 86.9 % (42.0-75.0); PLATELET COUNT 247 X10^3/uL (150.0-450.0); RED BLOOD COUNT 4.37 X10^6/uL (4.7-6.0); RED CELL DISTRIBUTION WIDTH 19.4 % (11.6-16.5); WHITE BLOOD COUNT 17.2 X10^3/uL (3.6-10.0)
[2017-07-23 06:31] LABS: ALANINE AMINOTRANSFERASE 14 Units/L (12-78); ALBUMIN 2.9 g/dL (3.4-5.0); ALKALINE PHOSPHATASE 91 Units/L (46-116); ASPARTATE AMINO TRANSFERASE 8 Units/L (15-37); BLOOD UREA NITROGEN 19 mg/dL (7-18); CALCIUM 7.9 mg/dL (8.5-10.1); CARBON DIOXIDE 28.1 mmol/L (21-32); CHLORIDE 108 mmol/L (98-107); COR CA(FOR HYPOALB) 8.8 mg/dL (8.5-10.1); COR NA(FOR HYPERGLY) 145 mmol/L (136-145); CREATININE 0.99 mg/dL (0.70-1.30); SODIUM 143 mmol/L (136-145); TOTAL PROTEIN 6.5 g/dL (6.4-8.2); eGFR BLACK RACES > 60 (>60); eGFR NON BLACK RACES > 60 (>60)
[2017-07-23 06:44] LABS: SERUM ACETONE NEGATIVE (NEGATIVE)
[2017-07-23 07:19] LABS: HYPOCHROMASIA 1+; MICROCYTOSIS 1+; PLATELET MORPHOLOGY COMMENT NORMAL (NORMAL); POIKILOCYTOSIS 1+
[2017-07-23] MEDS: COZAAR PO SCH (08:55)
[2017-07-23] MEDS: PEPCID TAB 20 MG PO SCH ×2 (08:55→20:24)
[2017-07-23] MEDS: PROTONIX TAB 40 MG PO SCH ×2 (08:55→20:24)
[2017-07-23] MEDS: K-DUR TAB 20 MEQ PO SCH (08:56)
[2017-07-23] MEDS: CHECK PATCH XX SCH ×2 (09:05→20:24)
--- NOTE | 2017-07-23 12:28 | DR.UPDATE ---
H&P Update History and Physical Update: History and Physical reviewed and patient examined. CHANGES NOTED: Yes with the following: 'S H&P WAS COMPLETED WITH HIS LAST ADMISSION ON 07/10/2017. HE PRESENTED TO THE ER TODAY WITH THE SAME SYMPTOMS OF NAUSEA, VOMITING, AND ABDOMINAL PAIN. PATIENT REPORTED THAT NAUSEA AND VOMITING BEGAN APPROXIMATELY TWO HOURS PRIOR TO ARRIVAL TO THE ER. HE RATES THE DIFFUSE, ABDOMINAL TENDERNESS A 5/10. HE DENIES DIARRHEA OR FEVER. HE HAS A KNOWN HISTORY OF DIABETIC GASTROPARESIS AND IS NON-COMPLIANT WITH DIABETIC DIET. ON EXAMINATION, HEART RATE RAPID, REGULAR. BILATERAL LUNGS NOTED TO BE CLEAR TO AUSCULTATION. ABDOMEN IS ROUND, SOFT, AND NOTED WITH MILD, DIFFUSE ABDOMINAL TENDERNESS TO PALPATION. HYPERACTIVE BOWEL SOUNDS NOTED IN ALL QUADRANTS. NORMAL RANGE OF MOTION NOTED TO ALL EXTREMITIES. ON ARRIVAL, VITALS WERE 99.0-132-26-97%-183/ 101. LABS WERE OBTAINED. ABNORMAL LAB VALUES INCLUDE THE FOLLOWING: WBC 15.6, HGB 12.7, HCT 39.5, CHLORIDE 97, BUN 21, GLUCOSE 443, AST 11, ALK PHOS 139, TOTAL PROTEIN 9.0, GLOBULIN 4.8. SERUM ACETONES SMALL. AN ABDOMINAL XRAY WAS OBTAINED AND REPORTED NO ACUTE CARDIOPULMONARY DISEASE. MILD CONSTIPATION. PATIENT WAS GIVEN LOPRESSOR 5MG IV X1, PEPCID 20MG IV X 1, HUMULIN R 14 UNITS X 1, DEMEROL 50MG IV X 1, PHENERGAN 25GM IV X 1, ZOFRAN COCKTAIL X 1, AND A NORMAL SALINE IV BOLUS X 1. NO IMPROVEMENT IN SYMPTOMS NOTED. PATIENT WAS ADMITTED FOR FURTHER TREATMENT AND EVALUATION. HE WAS STARTED ON NORMAL SALINE AT 150ML/HR, DEMEROL 50MG IV Q4H PRN, ZOFRAN 4MG IV Q4H PRN, ZOFRAN COCKTAIL IV Q8H PRN, AND HUMULIN R SLIDING SCALE INSULIN. WE PLAN TO FOLLOW UP WITH AM LABS AND CONTINUE TO MONITOR PATIENT. WE WILL RESUME HOME MEDICATIONS APPROPRIATE.
[2017-07-23] MEDS: TOUJEO SOLOSTAR PEN SC SCH ×2 (12:48→20:27)
[2017-07-23] MEDS: ZOFRAN INJ 4 MG VIAL 16 MG, ATIVAN INJ 2 MG VIAL 1 MG, DECADRON INJ 10 MG in NS 50 ML I... IV PRN (14:14)
[2017-07-23] MEDS: SNACK - Diabetic Appropriate PO SCH (20:23)
[2017-07-23] MEDS: KLONOPIN TAB 1 MG PO PRN (20:27)
[2017-07-24] MEDS: DEMEROL INJ IVP PRN ×4 (05:50→19:32)
[2017-07-24] MEDS: NS 1000 ML 1,000 ML IV SCH ×4 (05:50→21:55)
[2017-07-24] MEDS: ZOFRAN INJ 4 MG VIAL IVP PRN ×2 (05:51→19:33)
[2017-07-24 06:10] LABS: SERUM ACETONE NEGATIVE (NEGATIVE)
[2017-07-24 06:11] LABS: ALANINE AMINOTRANSFERASE 15 Units/L (12-78); ALBUMIN 2.9 g/dL (3.4-5.0); ALKALINE PHOSPHATASE 91 Units/L (46-116); ASPARTATE AMINO TRANSFERASE 10 Units/L (15-37); BLOOD UREA NITROGEN 13 mg/dL (7-18); CALCIUM 7.7 mg/dL (8.5-10.1); CARBON DIOXIDE 26.9 mmol/L (21-32); CHLORIDE 103 mmol/L (98-107); COR CA(FOR HYPOALB) 8.6 mg/dL (8.5-10.1); COR NA(FOR HYPERGLY) 139 mmol/L (136-145); CREATININE 0.87 mg/dL (0.70-1.30); SODIUM 139 mmol/L (136-145); TOTAL PROTEIN 6.7 g/dL (6.4-8.2); eGFR BLACK RACES > 60 (>60); eGFR NON BLACK RACES > 60 (>60)
[2017-07-24 06:20] LABS: BASOPHILS % (AUTO) 0.3 % (0.2-1.0); HEMATOCRIT 32.4 % (42.0-54.0); HEMOGLOBIN 10.5 g/dL (13.5-18.0); LYMPHOCYTES # (AUTO) 1.7 X10^3/uL (1.3-2.9); LYMPHOCYTES % (AUTO) 14.2 % (21.0-51.0); MEAN CORPUSCULAR HEMOGLOBIN 23.1 pg (27.0-34.0); MEAN CORPUSCULAR HGB CONC 32.5 g/dL (33.0-35.0); MEAN CORPUSCULAR VOLUME 71.3 fL (80.0-100.0); MEAN PLATELET VOLUME 8.7 fL (7.4-11.0); MONOCYTES # (AUTO) 0.9 x10^3/uL (0.3-0.8); MONOCYTES % (AUTO) 7.3 % (0.0-13.0); NEUTROPHILS # (AUTO) 9.5 x10^3/uL (2.2-4.8); NEUTROPHILS % (AUTO) 78.2 % (42.0-75.0); PLATELET COUNT 266 X10^3/uL (150.0-450.0); RED BLOOD COUNT 4.55 X10^6/uL (4.7-6.0); RED CELL DISTRIBUTION WIDTH 19.3 % (11.6-16.5); WHITE BLOOD COUNT 12.2 X10^3/uL (3.6-10.0)
[2017-07-24 07:11] LABS: HYPOCHROMASIA 1+; PLATELET MORPHOLOGY COMMENT NORMAL (NORMAL)
[2017-07-24] MEDS: K-DUR TAB 20 MEQ PO SCH (08:58)
[2017-07-24] MEDS: COZAAR PO SCH (08:58)
[2017-07-24] MEDS: PEPCID TAB 20 MG PO SCH ×2 (08:58→20:39)
[2017-07-24] MEDS: PROTONIX TAB 40 MG PO SCH ×2 (08:58→20:39)
[2017-07-24] MEDS: PHENERGAN TAB 25 MG PO PRN ×2 (09:03→20:43)
[2017-07-24] MEDS: CHECK PATCH XX SCH ×2 (10:21→20:40)
[2017-07-24] MEDS: HumuLIN R SC PRN ×2 (11:28→16:47)
[2017-07-24] MEDS: NORMODYNE INJ 20 MG VIAL IVP PRN ×2 (11:46→12:09)
--- NOTE | 2017-07-24 11:54 | PCM.PROG ---
Progress Note - Progress Note for Day of Date: 07/23/17 - Subjective Subjective: IS BEING TREATED FOR DIABETIC GASTROPARESIS WITH INTRACTABLE NAUSEA AND VOMITING. TODAY, HE IS ALERT AND ORIENTED, LYING IN BED ON MORNING ROUNDS. HE CONTINUES WITH COMPLAITNS OF NAUSEA AND MILD, DIFFUSE ABDOMINAL PAIN. ON EXAMINATION, HEART IS REGULAR IN RATE AND RHYTHM. BILATERAL LUNGS ARE NOTED TO BE CLEAR TO AUSCULTATION. ABDOMEN IS ROUND, SOFT, AND NOTED WITH DIFFUSE TENDERNESS TO PALPATION. HYPERACTIVE BOWEL SOUNDS NOTED IN ALL QUADRANTS. THERE IS NORMAL RANGE OF MOTION NOTED TO ALL EXTREMITIES. HIS VITALS THIS MORNING ARE 97.6-106-18-96%-196/111. LABS WERE OBTAINED. ABNORMAL LAB VALUES INCLUDE THE FOLLOWING: WBC 17.2, RBC 4.37, HGB 10.2, HCT 31.1, CHLORIDE 108, BUN 19, GLUCOSE 173, CALCIUM 7.9, AST 8, ALBUMIN 2.9. SERUM ACETONES NEGATIVE. TODAY, WE WILL CONTINUE WITH IV FLUIDS, ZOFRAN COCKTAIN, PHENERGAN, AND SLIDING SCALE INSULIN. WE WILL ALSO RESUME HOME MEDICATIONS APPROPRIATE. OTHERWISE, WE WILL FOLLOW UP WITH AM LABS AND CONTINUE TO MONITOR PATIENT. - Past Medical Family Social History Past Med/Fam/Surg Hx: No changes since H&P Allergies: Allergies codeine Allergy (Verified 07/09/17 11:54) morphine Allergy (Verified 07/09/17 11:54) - Review of Systems ROS: No change since H&P - Vital Signs and I&O's Vital Signs: Temperature 98.1 F Pulse Rate [Right Brachial] 112 Pulse Rate [Left Radial] 89 Pulse Rate [Left Brachial] 122 Pulse Rate 132 Respiratory Rate 18 Blood Pressure [Right Arm] 168/110 Blood Pressure [Left Arm] 152/90 Blood Pressure [Left Radial 160/102 Artery] Blood Pressure 200/103 O2 Sat by Pulse Oximetry 97 Intake and Output: Intake & Output 07/21/17 07/22/17 07/23/17 07/24/17 11:59 11:59 11:59 11:59 Intake Total 250 3090 4855 Output Total 1200 Balance 250 1890 4855 - Physical Exam Oriented: Normal Eyes: Normal Ear: Normal Nose: Normal Throat: Normal Respiratory: Normal Cardiovascular: Normal. negative: S3, S4, Murmur : Normal Auscultation: Bowel Sounds: Increased Palpation: Normal Tenderness: Diffuse, Mild. negative: Rebound, Guarding, Rigidity Skin: Decreased [place] Musculoskeletal: Normal Psychiatric: Normal Mood Description: Calm Affect: Normal Speech Pattern: Appropriate - Laboratory and Diagnostics Result Diagrams: 07/24/17 05:00 07/24/17 05:00 Labs: Laboratory WBC 12.2 X10^3/uL (3.6-10.0) H 07/24/17 05:00 RBC 4.55 X10^6/uL (4.7-6.0) L 07/24/17 05:00 Hgb 10.5 g/dL (13.5-18.0) L 07/24/17 05:00 Hct 32.4 % (42.0-54.0) L 07/24/17 05:00 MCV 71.3 fL (80.0-100.0) L 07/24/17 05:00 MCH 23.1 pg (27.0-34.0) L 07/24/17 05:00 MCHC 32.5 g/dL (33.0-35.0) L 07/24/17 05:00 RDW 19.3 % (11.6-16.5) H 07/24/17 05:00 Plt Count 266 X10^3/uL (150.0-450.0) 07/24/17 05:00 Plt Count Comment Adequate (ADEQUATE) 07/24/17 05:00 MPV 8.7 fL (7.4-11.0) 07/24/17 05:00 Neut % 78.2 % (42.0-75.0) H 07/24/17 05:00 Lymph % 14.2 % (21.0-51.0) L 07/24/17 05:00 [place] % 7.3 % (0.0-13.0) 07/24/17 05:00 Eos % 0.0 % (0.9-2.9) L 07/24/17 05:00 Baso % 0.3 % (0.2-1.0) 07/24/17 05:00 Neut # 9.5 x10^3/uL (2.2-4.8) H 07/24/17 05:00 Lymph # 1.7 X10^3/uL (1.3-2.9) 07/24/17 05:00 [place] # 0.9 x10^3/uL (0.3-0.8) H 07/24/17 05:00 Eos # 0.0 x10^3/uL (0.0-0.2) 07/24/17 05:00 Baso # 0.0 X10^3/uL (0.0-0.1) 07/24/17 05:00 Absolute Nucleated RBC 0.0 /100WBC 07/24/17 05:00 Total Counted 100 07/22/17 06:10 Neutrophils % (Manual) 96 % (39-76) H 07/22/17 06:10 Lymphocytes % (Manual) 4 % (13-43) L 07/22/17 06:10 Plt Morphology Comment Normal (NORMAL) 07/24/17 05:00 RBC Morphology Abnormal (NORMAL) 07/24/17 05:00 Hypochromasia 1+ A 07/24/17 05:00 Poikilocytosis 1+ A 07/23/17 05:15 Microcytosis 1+ A 07/23/17 05:15 Sodium 139 mmol/L (136-145) 07/24/17 05:00 Corrected Sodium 139 mmol/L (136-145) 07/24/17 05:00 Potassium 3.5 mmol/L (3.5-5.1) 07/24/17 05:00 Chloride 103 mmol/L (98-107) 07/24/17 05:00 Carbon Dioxide 26.9 mmol/L (21-32) 07/24/17 05:00 BUN 13 mg/dL (7-18) 07/24/17 05:00 Creatinine 0.87 mg/dL (0.70-1.30) 07/24/17 05:00 Est GFR (MDRD) Af Amer > 60 (>60) 07/24/17 05:00 Est GFR (MDRD) Non-Af > 60 (>60) 07/24/17 05:00 Glucose 119 mg/dL (65-99) H 07/24/17 05:00 POC Glucose (mg/dL) 187 mg/dL (65-99) H 07/24/17 11:03 Calcium 7.7 mg/dL (8.5-10.1) L 07/24/17 05:00 Corrected Calcium 8.6 mg/dL (8.5-10.1) 07/24/17 05:00 Total Bilirubin 0.50 mg/dL (0.2-1.0) 07/24/17 05:00 AST 10 Units/L (15-37) L 07/24/17 05:00 ALT 15 Units/L (12-78) 07/24/17 05:00 Alkaline Phosphatase 91 Units/L (46-116) 07/24/17 05:00 Total Protein 6.7 g/dL (6.4-8.2) 07/24/17 05:00 Albumin 2.9 g/dL (3.4-5.0) L 07/24/17 05:00 Globulin 3.8 g/dL (2.5-4.5) 07/24/17 05:00 Albumin/Globulin Ratio 0.8 Ratio (1.1-2.1) L 07/24/17 05:00 Amylase 93 Units/L (25-115) 07/22/17 01:00 Lipase 97 Units/L (73-393) 07/22/17 01:00 Acetone, Semi-Quant Negative (NEGATIVE) 07/24/17 05:00 - Plan (1) Diabetic gastroparesis Status: Acute Plan: CONTINUE IV FLUIDS, CONTINUE ZOFRAN COCKTAIL AND PHENERGAN, CONTINUE PEPCID AND PROTONIX, CONTINUE TO MONITOR (2) Abdominal pain Status: Acute Qualifiers: Abdominal location: generalized Plan: CONTINUE DEMEROL, CONTINUE TO MONITOR (3) Nausea and vomiting in adult patient Status: Acute Plan: CONTINUE ZOFRAN COCKTAIL AND PHENERGAN, CONTINUE PEPCID AND PROTONIX, CONTINUE TO MONITOR (4) Diabetes mellitus type 1 Status: Chronic Qualifiers: Diabetes mellitus complication status: without complication Qualified Code( s): E10.9 - Type 1 diabetes mellitus without complications Plan: CONTINUE HUMULIN R SLIDING SCALE, CONTINUE TOUJEO, CONTINUE TO MONITOR
[2017-07-24 13:06] LABS: CKMB % 1.3 % (<4); CREATINE KINASE 76 Units/L (39-308); CREATINE KINASE MB < 1.0 ng/mL (0-4.0); TROPONIN I < 0.02 ng/mL (0-1.5)
[2017-07-24] MEDS: KLONOPIN TAB 1 MG PO PRN (20:39)
[2017-07-24] MEDS: SNACK - Diabetic Appropriate PO SCH (20:39)
[2017-07-24] MEDS: TOUJEO SOLOSTAR PEN SC SCH (20:40)
[2017-07-25] MEDS ORDERED: ATIVAN INJ 2 MG VIAL ONE (02:07)
[2017-07-25] MEDS ORDERED: NS 100 ML IV 100 ML IV ONE (02:07)
[2017-07-25] MEDS ORDERED: DECADRON INJ PRESERVATIVE-FREE IM ONE (02:07)
[2017-07-25] MEDS: DEMEROL INJ IVP PRN (02:14)
[2017-07-25] MEDS: ZOFRAN INJ 4 MG VIAL 16 MG, ATIVAN INJ 2 MG VIAL 1 MG, DECADRON INJ 10 MG in NS 50 ML I... IV PRN (02:16)
[2017-07-25] MEDS: NS 1000 ML 1,000 ML IV SCH ×3 (05:17→14:10)
[2017-07-25] MEDS: HumuLIN R SC PRN ×2 (05:36→12:41)
[2017-07-25 05:48] LABS: BASOPHILS % (AUTO) 0.5 % (0.2-1.0); EOSINOPHILS % (AUTO) 0.2 % (0.9-2.9); HEMATOCRIT 32.8 % (42.0-54.0); HEMOGLOBIN 10.8 g/dL (13.5-18.0); LYMPHOCYTES # (AUTO) 0.6 X10^3/uL (1.3-2.9); LYMPHOCYTES % (AUTO) 8.8 % (21.0-51.0); MEAN CORPUSCULAR HEMOGLOBIN 23.3 pg (27.0-34.0); MEAN CORPUSCULAR HGB CONC 32.9 g/dL (33.0-35.0); MEAN CORPUSCULAR VOLUME 70.9 fL (80.0-100.0); MONOCYTES # (AUTO) 0.2 x10^3/uL (0.3-0.8); MONOCYTES % (AUTO) 3.3 % (0.0-13.0); NEUTROPHILS # (AUTO) 6.2 x10^3/uL (2.2-4.8); NEUTROPHILS % (AUTO) 87.2 % (42.0-75.0); PLATELET COUNT 231 X10^3/uL (150.0-450.0); RED BLOOD COUNT 4.63 X10^6/uL (4.7-6.0); RED CELL DISTRIBUTION WIDTH 19.1 % (11.6-16.5); WHITE BLOOD COUNT 7.1 X10^3/uL (3.6-10.0)
[2017-07-25 06:01] LABS: HYPOCHROMASIA 1+; MICROCYTOSIS SLIGHT; PLATELET MORPHOLOGY COMMENT NORMAL (NORMAL)
[2017-07-25 06:04] LABS: ALANINE AMINOTRANSFERASE 15 Units/L (12-78); ALBUMIN 2.9 g/dL (3.4-5.0); ALKALINE PHOSPHATASE 92 Units/L (46-116); ASPARTATE AMINO TRANSFERASE 12 Units/L (15-37); BLOOD UREA NITROGEN 13 mg/dL (7-18); CALCIUM 7.6 mg/dL (8.5-10.1); CARBON DIOXIDE 27.7 mmol/L (21-32); CHLORIDE 100 mmol/L (98-107); COR CA(FOR HYPOALB) 8.5 mg/dL (8.5-10.1); COR NA(FOR HYPERGLY) 138 mmol/L (136-145); CREATININE 0.89 mg/dL (0.70-1.30); SODIUM 135 mmol/L (136-145); TOTAL PROTEIN 6.7 g/dL (6.4-8.2); eGFR BLACK RACES > 60 (>60); eGFR NON BLACK RACES > 60 (>60)
[2017-07-25] MEDS: CHECK PATCH XX SCH (09:10)
[2017-07-25] MEDS: PEPCID TAB 20 MG PO SCH (09:10)
[2017-07-25] MEDS: K-DUR TAB 20 MEQ PO SCH (09:10)
[2017-07-25] MEDS: COZAAR PO SCH (09:10)
[2017-07-25] MEDS: PROTONIX TAB 40 MG PO SCH (09:10)
[2017-07-25 12:12] VITALS: BP 127/74
== END 2017-07-25 15:35 | disposition home or self-care (01) | DRG 74 ==
LOC: ER 00:52 → ICU 02:39 → MED/SURG 15:50 → OBSVTOIN 07-23 08:00
PROVIDERS: ADMIT Obstetrics & Gynecology Obstetrics; ATTEND Internal Medicine
DX: E10.43 Type 1 diabetes mellitus with diabetic autonomic (poly)neuropathy (principal); K31.84 Gastroparesis; E10.65 Type 1 diabetes mellitus with hyperglycemia; R10.84 Generalized abdominal pain; R11.2 Nausea with vomiting, unspecified; E78.2 Mixed hyperlipidemia; K21.9 Gastro-esophageal reflux disease without esophagitis; I10 Essential (primary) hypertension
CPT/HCPCS: 36415; 36591; 74022; 80053; 82009; 82150; 82550; 82553; 82947; 83690; 84484; 85025; 93005; 94760; 96365; 96372; 96374; 96375; 99283; 99284; A4216; A4222; Q0169; S0028; G0378; J1100; J1815; J2060; J2175; J2405; J2550; J3490

== ENCOUNTER 2017-07-30 02:46 | Emergency (ER) | payer MEDICAID ==
[2017-07-30] MEDS ORDERED: NS 1000 ML 1,000 ML ONE ×3 (02:54→06:20)
[2017-07-30 02:58] VITALS: BMI 25.7
[2017-07-30] MEDS ORDERED: COMPAZINE INJ IVP ONE (03:05)
[2017-07-30] MEDS ORDERED: DEMEROL INJ IVP ONE (03:05)
[2017-07-30] MEDS ORDERED: NS 1000 ML 1,000 ML IV ONE ×3 (03:06→06:16)
--- NOTE | 2017-07-30 03:08 | DR.GENAD ---
HPI - PCP Primary Care Physician: SAVANNAH - Complaint/Symptoms Chief Complaint Doctors Comments: Patient was discharged from hospital s/o treatment for gastroparesis. He states that he has been fine until today when he started eating and he vomited several times today. Chief Complaint:: N/V, HURTING IN THE STOMACH , AND FEVER. O/S FRIDAY AFTER BEING DISCHARGED FROM HOSPITAL. HAS NOT FOLLOWED UP WITH PCP. Self Treatment fo Chief Complaint: ZOFRAN AT HOME - Source History Provided: Patient - Mode of Arrival Mode of Arrival: Ambulatory - Timing Onset of Chief Complaint: 07/25/17 PMH - PMH Past Medical History: Yes Past Medical History: Anxiety, Diabetes, Dyslipidemia, GERD, Hypertension Past Surgical History: Yes Surgical History: Cholecystectomy, Other - Family History History of Family Medical Conditions: Yes Family Medical History: Diabetes Mellitus, Cancer, [place], Coronary Artery Disease, Sudden Cardiac , Hypertension - Social History Alcohol Use: None Do you use any recreational Drugs:: No Lives With: Spouse Lives Where: Home - infectious screening Have you traveled outside the country in the last 6 months?: No Isolation: Standard ROS - Review of Systems Eyes: No Symptoms Reported ENTM: No Symptoms Reported Respiratoy: No Symptoms Reported Cardiovascular: No Symptoms Reported Gastrointestinal/Abdominal: Abdominal Pain, Vomiting Genitourinary: No Symptoms Reported Neurological: No Symptoms Reported Musculoskeletal: No Symptoms Reported Integumentary: No Symptoms Reported Hematologic/Lymphatic: No Symptoms Reported Endocrine: No Symptoms Reported Psychiatric: No Symptoms Reported All Other Systems: Reviewed and Negative PE - Vital Signs Vitals: Temperature 100.2 F Pulse Rate [Apical] 98 Pulse Rate 110 Respiratory Rate 18 Blood Pressure [Right Arm] 141/70 Blood Pressure [Left Arm] 145/72 Blood Pressure [Left Radial 160/102 Artery] Blood Pressure 134/92 O2 Sat by Pulse Oximetry 98 - General General Appearance: Alert, In No Apparent Distress - Head Head Exam: Normal Inspection, Atraumatic - Eyes Eye exam: Normal Appearance, PERRL, EOMI - ENT ENT Exam: Normal Exam External Ear Exam: Normal External Inspection TM/Canal Exam: Bilateral Normal Nose Exam: Normal Nose Exam Mouth Exam: Normal Inspection Throat Exam: Normal Inspection - Neck Neck Exam: Normal Inspection - Chest Chest Inspection: Normal Inspection - Respiratory Respiratory Exam: Normal Lung Sounds Bilat Respiratory Exam: Bilateral Clear to Auscultation - Cardiovascular Cardiovascular Exam: Regular Rate, Normal Rhythm - Abdominal Exam Abdominal Exam: Normal Inspection, Normal Bowel Sounds Abdominal Tenderness: negative: RUQ, RLQ, LUQ, LLQ, Epigastrium, Suprapubic, Diffuse, Mild, Moderate, Severe, Other - Extremities Extremities Exam: Normal Inspection, Full ROM - Back Back Exam: Normal Inspection - Neurologic Neurological Exam: Alert, Oriented X3, CN II-XII Intact - Psychiatric Psychiatric Exam: Normal Affect - Skin Skin Exam: Warm, Dry, Intact Course - Treatment Treatment: NS, Compazine,potassium, - Reevaluation 1st: Improved ROR - Labs Reviewed Result Diagrams: 07/30/17 03:06 07/30/17 03:06 Laboratory: WBC 8.6 X10^3/uL (3.6-10.0) 07/30/17 03:06 RBC 4.50 X10^6/uL (4.7-6.0) L 07/30/17 03:06 Hgb 10.7 g/dL (13.5-18.0) L 07/30/17 03:06 Hct 32.1 % (42.0-54.0) L 07/30/17 03:06 MCV 71.4 fL (80.0-100.0) L 07/30/17 03:06 MCH 23.7 pg (27.0-34.0) L 07/30/17 03:06 MCHC 33.2 g/dL (33.0-35.0) 07/30/17 03:06 RDW 19.2 % (11.6-16.5) H 07/30/17 03:06 Plt Count 201 X10^3/uL (150.0-450.0) 07/30/17 03:06 Plt Count Comment Adequate (ADEQUATE) 07/30/17 03:06 MPV 9.3 fL (7.4-11.0) 07/30/17 03:06 Neut % 78.2 % (42.0-75.0) H 07/30/17 03:06 Lymph % 10.7 % (21.0-51.0) L 07/30/17 03:06 [place] % 10.8 % (0.0-13.0) 07/30/17 03:06 Eos % 0.0 % (0.9-2.9) L 07/30/17 03:06 Baso % 0.3 % (0.2-1.0) 07/30/17 03:06 Neut # 6.8 x10^3/uL (2.2-4.8) H 07/30/17 03:06 Lymph # 0.9 X10^3/uL (1.3-2.9) L 07/30/17 03:06 [place] # 0.9 x10^3/uL (0.3-0.8) H 07/30/17 03:06 Eos # 0.0 x10^3/uL (0.0-0.2) 07/30/17 03:06 Baso # 0.0 X10^3/uL (0.0-0.1) 07/30/17 03:06 Absolute Nucleated RBC 0.0 /100WBC 07/30/17 03:06 Plt Morphology Comment Normal (NORMAL) 07/30/17 03:06 RBC Morphology Abnormal (NORMAL) 07/30/17 03:06 Hypochromasia 1+ A 07/30/17 03:06 Microcytosis Slight A 07/30/17 03:06 Sodium 131 mmol/L (136-145) L 07/30/17 03:06 Corrected Sodium 137 mmol/L (136-145) 07/30/17 03:06 Potassium 3.3 mmol/L (3.5-5.1) L 07/30/17 03:06 Chloride 93 mmol/L (98-107) L 07/30/17 03:06 Carbon Dioxide 24.3 mmol/L (21-32) 07/30/17 03:06 BUN 9 mg/dL (7-18) 07/30/17 03:06 Creatinine 1.15 mg/dL (0.70-1.30) 07/30/17 03:06 Est GFR (MDRD) Af Amer > 60 (>60) 07/30/17 03:06 Est GFR (MDRD) Non-Af > 60 (>60) 07/30/17 03:06 Glucose 367 mg/dL (65-99) H 07/30/17 03:06 Calcium 8.7 mg/dL (8.5-10.1) 07/30/17 03:06 Corrected Calcium 9.5 mg/dL (8.5-10.1) 07/30/17 03:06 Total Bilirubin 0.50 mg/dL (0.2-1.0) 07/30/17 03:06 AST 19 Units/L (15-37) 07/30/17 03:06 ALT 49 Units/L (12-78) 07/30/17 03:06 Alkaline Phosphatase 157 Units/L (46-116) H 07/30/17 03:06 C-Reactive Protein 151.30 mg/L (0-3.0) H 07/30/17 03:06 Total Protein 7.6 g/dL (6.4-8.2) 07/30/17 03:06 Albumin 3.0 g/dL (3.4-5.0) L 07/30/17 03:06 Globulin 4.6 g/dL (2.5-4.5) H 07/30/17 03:06 Albumin/Globulin Ratio 0.7 Ratio (1.1-2.1) L 07/30/17 03:06 - XRAY XRAY Interpreted by: Radiologist (Acute Abd series: Comparison 07/22/17: Cardiopericardial silhouette is stable with unchanged right chest wall chemo port the IJ approach. There is no focal consolidation, pelural effusioon or pneumothorax. Pulmonary vascularity is normal. Abdominal radiographs demonstrate a nonobstructive bowel gas pattern. Gas and stool are seen throughout the colon. There is no small bowel distention. There is no radiographic evidence of pneumoperitoneum.) - Diagnosis Discharge Problem: Gastroparesis - Discharge Plan Condition: Stable - Follow ups/Referrals Follow ups/Referrals: Williams Worthington [Primary Care Provider] - 3 days - Instructions Instructions: Gastroparesis
[2017-07-30] MEDS ORDERED: COMPAZINE INJ ONE (03:10)
[2017-07-30] MEDS ORDERED: DEMEROL INJ ONE (03:10)
[2017-07-30 03:25] LABS: BASOPHILS % (AUTO) 0.3 % (0.2-1.0); HEMATOCRIT 32.1 % (42.0-54.0); HEMOGLOBIN 10.7 g/dL (13.5-18.0); LYMPHOCYTES # (AUTO) 0.9 X10^3/uL (1.3-2.9); LYMPHOCYTES % (AUTO) 10.7 % (21.0-51.0); MEAN CORPUSCULAR HEMOGLOBIN 23.7 pg (27.0-34.0); MEAN CORPUSCULAR HGB CONC 33.2 g/dL (33.0-35.0); MEAN CORPUSCULAR VOLUME 71.4 fL (80.0-100.0); MEAN PLATELET VOLUME 9.3 fL (7.4-11.0); MONOCYTES # (AUTO) 0.9 x10^3/uL (0.3-0.8); MONOCYTES % (AUTO) 10.8 % (0.0-13.0); NEUTROPHILS # (AUTO) 6.8 x10^3/uL (2.2-4.8); NEUTROPHILS % (AUTO) 78.2 % (42.0-75.0); PLATELET COUNT 201 X10^3/uL (150.0-450.0); RED CELL DISTRIBUTION WIDTH 19.2 % (11.6-16.5); WHITE BLOOD COUNT 8.6 X10^3/uL (3.6-10.0)
[2017-07-30 03:31] LABS: ALANINE AMINOTRANSFERASE 49 Units/L (12-78); ALKALINE PHOSPHATASE 157 Units/L (46-116); ASPARTATE AMINO TRANSFERASE 19 Units/L (15-37); BLOOD UREA NITROGEN 9 mg/dL (7-18); CALCIUM 8.7 mg/dL (8.5-10.1); CARBON DIOXIDE 24.3 mmol/L (21-32); CHLORIDE 93 mmol/L (98-107); COR CA(FOR HYPOALB) 9.5 mg/dL (8.5-10.1); COR NA(FOR HYPERGLY) 137 mmol/L (136-145); CREATININE 1.15 mg/dL (0.70-1.30); SODIUM 131 mmol/L (136-145); TOTAL PROTEIN 7.6 g/dL (6.4-8.2); eGFR BLACK RACES > 60 (>60); eGFR NON BLACK RACES > 60 (>60)
[2017-07-30 03:32] LABS: HYPOCHROMASIA 1+; MICROCYTOSIS SLIGHT; PLATELET MORPHOLOGY COMMENT NORMAL (NORMAL)
--- NOTE | 2017-07-30 03:32 | RAD ---
ACUTE ABDOMINAL SERIES CLINICAL HISTORY: 46-year-old male with abdominal pain, nausea and vomiting. COMPARISON: Acute abdominal series 07/22/2017. FINDINGS: Cardiopericardial silhouette is stable with unchanged right chest wall chemo port the IJ approach. Th ere is no focal consolidation, pleural effusion or pneumothorax. Pulmonary vascularity is normal. Abdominal radiographs demonstrate a nonobstructive bowel gas pattern. Gas and stool are seen througho ut the colon. There is no small bowel distention. There is no radiographic evidence of pneumoperitone um. Imaged osseous structures are intact. Soft tissues are unremarkable. IMPRESSION: 1. No acute cardiopulmonary process. 2. Nonobstructive bowel gas pattern without radiographic evidence of pneumoperitoneum. Reported By:
[2017-07-30] MEDS ORDERED: OFIRMEV IV 1000 MG VIAL 500 MG/50 ML VIAL IV PRN (03:57)
[2017-07-30] MEDS ORDERED: POTASSIUM CHLORIDE INJ 20 MEQ VIAL IV ONE (04:03)
[2017-07-30] MEDS ORDERED: OFIRMEV IV 1000 MG VIAL 1,000 MG/100 ML VIAL IV ONE (04:13)
[2017-07-30 07:09] VITALS: BP 141/70
== END 2017-07-30 07:59 | disposition home or self-care (01) ==
LOC: ER 02:46
DX: K31.84 Gastroparesis (principal)
CPT/HCPCS: 36415; 36591; 74022; 80053; 85025; 86140; 96365; 96367; 96374; 96375; 99283; A4222; J0780; J2175

== ENCOUNTER 2017-08-04 12:31 | Inpatient (IN) | payer MEDICAID ==
[2017-08-04 14:31] VITALS: BMI 24.9
[2017-08-04] MEDS ORDERED: NS 1000 ML 1,000 ML IV ONE ×2 (14:40)
[2017-08-04 15:23] LABS: BASOPHILS % (AUTO) 0.2 % (0.2-1.0); HEMATOCRIT 27.9 % (42.0-54.0); HEMOGLOBIN 9.1 g/dL (13.5-18.0); LYMPHOCYTES # (AUTO) 0.7 X10^3/uL (1.3-2.9); LYMPHOCYTES % (AUTO) 5.5 % (21.0-51.0); MEAN CORPUSCULAR HEMOGLOBIN 23.1 pg (27.0-34.0); MEAN CORPUSCULAR HGB CONC 32.5 g/dL (33.0-35.0); MEAN CORPUSCULAR VOLUME 71.1 fL (80.0-100.0); MEAN PLATELET VOLUME 8.8 fL (7.4-11.0); MONOCYTES # (AUTO) 0.1 x10^3/uL (0.3-0.8); MONOCYTES % (AUTO) 1.1 % (0.0-13.0); NEUTROPHILS # (AUTO) 12.1 x10^3/uL (2.2-4.8); NEUTROPHILS % (AUTO) 93.2 % (42.0-75.0); PLATELET COUNT 238 X10^3/uL (150.0-450.0); RED BLOOD COUNT 3.92 X10^6/uL (4.7-6.0); RED CELL DISTRIBUTION WIDTH 19.4 % (11.6-16.5)
[2017-08-04 15:29] LABS: ALANINE AMINOTRANSFERASE 16 Units/L (12-78); ALBUMIN 2.2 g/dL (3.4-5.0); ALKALINE PHOSPHATASE 110 Units/L (46-116); ASPARTATE AMINO TRANSFERASE 12 Units/L (15-37); BLOOD UREA NITROGEN 11 mg/dL (7-18); CALCIUM 8.2 mg/dL (8.5-10.1); CARBON DIOXIDE 19.7 mmol/L (21-32); CHLORIDE 86 mmol/L (98-107); COR CA(FOR HYPOALB) 9.6 mg/dL (8.5-10.1); COR NA(FOR HYPERGLY) 129 mmol/L (136-145); CREATININE 0.91 mg/dL (0.70-1.30); eGFR BLACK RACES > 60 (>60); eGFR NON BLACK RACES > 60 (>60)
[2017-08-04 15:36] LABS: BAND NEUTROPHILS % 5 % (0-10); PLATELET MORPHOLOGY COMMENT NORMAL (NORMAL); SODIUM 124 mmol/L (136-145)
[2017-08-04 15:37] LABS: ANISOCYTOSIS SLIGHT; HYPOCHROMASIA 1+; MICROCYTOSIS SLIGHT
[2017-08-04] MEDS ORDERED: K-RIDER 10 MEQ/NS 100 ML 10 MEQ/100 ML BAG IV PRN (15:37)
[2017-08-04] MEDS ORDERED: MAG-OX TAB PO PRN (15:37)
[2017-08-04] MEDS ORDERED: K-LYTE EFFERVESCENT PO PRN (15:37)
[2017-08-04] MEDS ORDERED: POTASSIUM CHLORIDE LIQ 20 MEQ UDC PO PRN (15:37)
[2017-08-04] MEDS: TYLENOL 325 MG TAB PO PRN (16:55)
[2017-08-04] MEDS: HumuLIN R SUBCUT PRN (17:07)
[2017-08-04] MEDS: POTASSIUM CHL 60 MEQ/NS 0.45% 500 ML IV PRN (17:54)
[2017-08-04] MEDS: NS 1000 ML 1,000 ML IV SCH ×2 (17:54→23:12)
[2017-08-04] MEDS: DEMEROL INJ IVP PRN ×2 (19:15→23:20)
[2017-08-04 21:19] LABS: BILIRUBIN,URINE NEGATIVE (NEGATIVE); BLOOD/HEMOGLOBIN,URINE 4+ (NEGATIVE); GLUCOSE, URINE 4+ (NEGATIVE); KETONES,URINE 4+ (NEGATIVE); LEUKOCYTE ESTERASE ,URINE NEGATIVE (NEGATIVE); NITRITES,URINE NEGATIVE (NEGATIVE); PROTEIN,URINE 2+ (NEGATIVE); UROBILINOGEN,URINE NORMAL (NORMAL)
[2017-08-04 21:20] LABS: COLOR,URINE YELLOW (YELLOW)
[2017-08-04 21:21] LABS: APPEARANCE,URINE SLIGHTLY HAZY (CLEAR)
[2017-08-04 21:28] LABS: BACTERIA,URINE TRACE /HPF (NEGATIVE); SQUAMOUS EPITHELIAL CELL,UR RARE /HPF (NEGATIVE)
[2017-08-04 21:29] LABS: MUCUS,URINE FEW /HPF (NEGATIVE)
--- NOTE | 2017-08-04 22:14 | RAD ---
Chest, AP Indication: Shortness of breath, fever Comparison: 07/22/2017 Findings: The cardiac silhouette is unremarkable. There is stable positioning of the right jugular Po rt-A-Cath. The lungs are essentially clear without dense infiltrate or pleural effusion. Impression: No acute chest process. Reported By:
[2017-08-05] MEDS: NS 1000 ML 1,000 ML IV SCH ×2 (04:58→05:44)
[2017-08-05] MEDS: HumuLIN R SUBCUT PRN ×3 (05:23→17:27)
[2017-08-05] MEDS: PHENERGAN INJ 25 MG IVP PRN ×2 (05:44→19:23)
[2017-08-05] MEDS: DEMEROL INJ IVP PRN (06:14)
[2017-08-05 06:21] LABS: BASOPHILS # (AUTO) 0.2 X10^3/uL (0.0-0.1); BASOPHILS % (AUTO) 0.8 % (0.2-1.0); HEMATOCRIT 26.2 % (42.0-54.0); HEMOGLOBIN 8.7 g/dL (13.5-18.0); LYMPHOCYTES # (AUTO) 1.1 X10^3/uL (1.3-2.9); LYMPHOCYTES % (AUTO) 4.1 % (21.0-51.0); MEAN CORPUSCULAR HEMOGLOBIN 23.4 pg (27.0-34.0); MEAN CORPUSCULAR HGB CONC 33.3 g/dL (33.0-35.0); MEAN CORPUSCULAR VOLUME 70.1 fL (80.0-100.0); MEAN PLATELET VOLUME 8.6 fL (7.4-11.0); MONOCYTES # (AUTO) 1.4 x10^3/uL (0.3-0.8); NEUTROPHILS # (AUTO) 24.9 x10^3/uL (2.2-4.8); NEUTROPHILS % (AUTO) 90.1 % (42.0-75.0); PLATELET COUNT 277 X10^3/uL (150.0-450.0); RED BLOOD COUNT 3.74 X10^6/uL (4.7-6.0); RED CELL DISTRIBUTION WIDTH 19.1 % (11.6-16.5); WHITE BLOOD COUNT 27.6 X10^3/uL (3.6-10.0)
[2017-08-05 06:50] LABS: ALANINE AMINOTRANSFERASE 23 Units/L (12-78); ALKALINE PHOSPHATASE 147 Units/L (46-116); ASPARTATE AMINO TRANSFERASE 21 Units/L (15-37); BLOOD UREA NITROGEN 8 mg/dL (7-18); CARBON DIOXIDE 19.8 mmol/L (21-32); CHLORIDE 96 mmol/L (98-107); COR CA(FOR HYPOALB) 9.6 mg/dL (8.5-10.1); COR NA(FOR HYPERGLY) 134 mmol/L (136-145); CREATININE 0.76 mg/dL (0.70-1.30); SODIUM 131 mmol/L (136-145); TOTAL PROTEIN 6.7 g/dL (6.4-8.2); eGFR BLACK RACES > 60 (>60); eGFR NON BLACK RACES > 60 (>60)
[2017-08-05 06:53] LABS: BAND NEUTROPHILS % 5 % (0-10); HYPOCHROMASIA 1+; PLATELET MORPHOLOGY COMMENT NORMAL (NORMAL)
[2017-08-05] MEDS: POTASSIUM CHL 40 MEQ/NS 0.45% 500 ML IV PRN (07:39)
[2017-08-05 08:21] LABS: ABG BASE EXCESS -7.2 mmol/L (-2.0-2.0)
[2017-08-05 08:22] LABS: ABG ALLEN TEST POS; ABG HCO3 16.3 mmol/L (22-26)
--- NOTE | 2017-08-05 09:37 | DR.UPDATE ---
H&P Update History and Physical Update: WAS SEEN IN THE OFFICE ON 01/01/2018. HE WAS ADMITTED FOR FEVER OF UNKNOWN ORIGIN, GENERALIZED BODY ACHES. A H&P WAS COMPLETED PRIOR TO ADMISSION. PATIENT HAS BEEN SEEN AND EXAMINED WITH NO CHANGES NOTED TO H&P. Changes noted: NO Yes with the following:
[2017-08-05] MEDS ORDERED: FORTAZ or TAZICEF INJ 1 GM in NS 100 ML IV + SPIKE MINIBAG* 100 ML IV SCH (10:00)
[2017-08-05] MEDS ORDERED: PHARMACY CONSULT - VANCOMYCIN XX SCH (10:00)
[2017-08-05] MEDS ORDERED: ZOSYN VIAL 3.375 GM IV SCH (10:00)
[2017-08-05] MEDS ORDERED: LEVAQUIN PREMIX IV 750 MG 750 MG/150 ML BAG IV SCH (10:00)
[2017-08-05] MEDS: NS 1000 ML 1,000 ML with SODIUM BICARBONATE 8.4% INJ ADULT 50 ML IV SCH ×4 (10:44→17:37)
[2017-08-05] MEDS: ZOSYN VIAL 3.375 GM 3.375 GM in NS 100 ML IV + SPIKE MINIBAG* 100 ML IV SCH ×3 (10:45→22:16)
[2017-08-05] MEDS: TAMIFLU PO SCH ×2 (10:45→21:31)
[2017-08-05] MEDS: VANCOMYCIN HCL 1 GM VIAL 1 GM in NS 250 ML IV 250 ML IV SCH ×2 (10:45→21:32)
[2017-08-05] MEDS ORDERED: NORCO 10/325 TAB PO PRN (11:08)
[2017-08-05] MEDS ORDERED: COMPAZINE PO PRN (11:08)
--- NOTE | 2017-08-05 11:13 | RAD ---
HISTORY: Left elbow pain and swelling Study: Left elbow AP, lateral, oblique Comparison: None Findings: There is a moderately large joint effusion present. No joint erosions are identified. No fracture, ly tic, or blastic lesion or periarticular soft tissue abnormality is identified. IMPRESSION: Moderately large joint effusion Reported By:
[2017-08-05] MEDS: PROTONIX TAB 40 MG PO SCH ×2 (12:47→21:29)
[2017-08-05] MEDS: HumaLOG SC SCH ×2 (12:47→17:25)
[2017-08-05] MEDS: K-DUR TAB 20 MEQ PO SCH (12:47)
[2017-08-05] MEDS: CATAPRES-TTS-3 TD SCH (12:48)
[2017-08-05] MEDS ORDERED: ZOFRAN TAB 4 MG PO PRN (14:38)
[2017-08-05] MEDS ORDERED: PERCOCET TAB 5/325 MG PO PRN (14:40)
[2017-08-05] MEDS: TYLENOL 325 MG TAB PO PRN (21:30)
[2017-08-05] MEDS: PEPCID TAB 20 MG PO SCH (21:31)
[2017-08-05] MEDS: TOUJEO SOLOSTAR PEN SC SCH (21:46)
[2017-08-06] MEDS: NS 1000 ML 1,000 ML with SODIUM BICARBONATE 8.4% INJ ADULT 50 ML IV SCH ×6 (00:21→16:10)
[2017-08-06] MEDS: TYLENOL 325 MG TAB PO PRN (04:03)
[2017-08-06] MEDS: ZOSYN VIAL 3.375 GM 3.375 GM in NS 100 ML IV + SPIKE MINIBAG* 100 ML IV SCH ×3 (05:26→22:19)
[2017-08-06] MEDS: HumaLOG SC SCH ×3 (06:05→17:04)
[2017-08-06 06:14] LABS: BASOPHILS % (AUTO) 0.2 % (0.2-1.0); HEMOGLOBIN 7.9 g/dL (13.5-18.0); LYMPHOCYTES # (AUTO) 0.7 X10^3/uL (1.3-2.9); LYMPHOCYTES % (AUTO) 2.9 % (21.0-51.0); MEAN CORPUSCULAR HEMOGLOBIN 23.2 pg (27.0-34.0); MEAN CORPUSCULAR HGB CONC 33.1 g/dL (33.0-35.0); MEAN CORPUSCULAR VOLUME 69.9 fL (80.0-100.0); MEAN PLATELET VOLUME 8.5 fL (7.4-11.0); MONOCYTES # (AUTO) 1.3 x10^3/uL (0.3-0.8); MONOCYTES % (AUTO) 4.9 % (0.0-13.0); NEUTROPHILS # (AUTO) 23.9 x10^3/uL (2.2-4.8); PLATELET COUNT 315 X10^3/uL (150.0-450.0); RED BLOOD COUNT 3.43 X10^6/uL (4.7-6.0); RED CELL DISTRIBUTION WIDTH 19.4 % (11.6-16.5); WHITE BLOOD COUNT 25.9 X10^3/uL (3.6-10.0)
[2017-08-06 06:31] LABS: ALANINE AMINOTRANSFERASE 18 Units/L (12-78); ALBUMIN 1.8 g/dL (3.4-5.0); ALKALINE PHOSPHATASE 123 Units/L (46-116); ASPARTATE AMINO TRANSFERASE 14 Units/L (15-37); BLOOD UREA NITROGEN 10 mg/dL (7-18); CALCIUM 7.3 mg/dL (8.5-10.1); CARBON DIOXIDE 15.3 mmol/L (21-32); CHLORIDE 96 mmol/L (98-107); COR CA(FOR HYPOALB) 9.1 mg/dL (8.5-10.1); COR NA(FOR HYPERGLY) 133 mmol/L (136-145); CREATININE 0.88 mg/dL (0.70-1.30); SODIUM 130 mmol/L (136-145); TOTAL PROTEIN 6.2 g/dL (6.4-8.2); eGFR BLACK RACES > 60 (>60); eGFR NON BLACK RACES > 60 (>60)
[2017-08-06 06:46] LABS: ANISOCYTOSIS SLIGHT; BAND NEUTROPHILS % 5 % (0-10); HYPOCHROMASIA 1+; MICROCYTOSIS 1+; PLATELET MORPHOLOGY COMMENT NORMAL (NORMAL)
[2017-08-06] MEDS: COZAAR PO SCH (09:28)
[2017-08-06] MEDS: K-DUR TAB 20 MEQ PO SCH (09:28)
[2017-08-06] MEDS: POTASSIUM CHL 40 MEQ/NS 0.45% 500 ML IV PRN (09:28)
[2017-08-06] MEDS: PROTONIX TAB 40 MG PO SCH ×2 (09:28→21:18)
[2017-08-06] MEDS: TAMIFLU PO SCH ×2 (09:28→21:17)
[2017-08-06] MEDS: PEPCID TAB 20 MG PO SCH ×2 (09:29→21:17)
[2017-08-06] MEDS: VANCOMYCIN HCL 1 GM VIAL 1 GM in NS 250 ML IV 250 ML IV SCH ×2 (09:29→22:18)
[2017-08-06] MEDS: DEMEROL INJ IVP PRN ×2 (09:39→21:19)
[2017-08-06] MEDS: MAGNESIUM SULFATE 1 GM/100 mL PREMIX 1 GM/100 ML BAG IV PRN ×4 (10:30→17:10)
[2017-08-06] MEDS ORDERED: ZANAFLEX PO PRN (11:23)
--- NOTE | 2017-08-06 12:32 | PCM.PROG ---
Progress Note - Progress Note for Day of Date: 08/05/17 - Subjective Subjective: WAS ADMITTED FOR FEVER OF UNKNOWN ORIGIN AND GENERALIZED BODY ACHES. TODAY, HE IS ALERT AND ORIENTED, LYING IN BED ON MORNING ROUNDS. HE CONTINUES WITH COMPLAINTS OF GENERALIZED BODY ACHES. HE REPORTS PAIN AND SWELLING TO HIS LEFT ELBOW. HE DENIES KNOWN INJURY. STAFF REPORTS THAT PATIENT HAS BEEN AFEBRILE THROUGHOUT THE NIGHT. ON EXAMINATION, HE IS SLIGHTLY TACHYCARDIC WITH HR NOTED TO BE 106. BILATERAL LUNGS ARE NOTED WITH DIMINISHED LUNG SOUNDS THROUGHOUT. ABDOMEN IS ROUND, SOFT, AND NON-TENDER WITH NORMAL BOWEL SOUNDS NOTED IN ALL QUADRANTS. LEFT ELBOW IS NOTED TO BE WARM TO TOUCH AND IS EDEMATOUS. THERE IS NORMAL RANGE OF MOTION TO ALL EXTREMITIES. HIS VITALS THIS MORNING ARE 98.9-106-20-97%-185/85. LABS WERE OBTAINED. ABNORMAL LAB VALUES INCLUDE THE FOLLOWING: WBC INCREASED FROM 13 TO 27.6, RBC 3.74, HGB 8.7, HCT 26.2, SODIUM 131, POTASSIUM 3.3, CHLORIDE 96, CARBON DIOXIDE 19.8, GLUCOSE 242, CALCIUM 8.0, ALK PHOS 147, ESR 91, CRP 234.60, ALBUMIN 2.0. AN ABG WAS OBTAINED AND REVEALED PH 7.390, PC02 27.0, HC03 16.3, BASE EXCESS -7.2. AN ELBOW ELBOW XRAY WAS OBTAINED AND REPORTED MODERATELY LARGE JOINT EFFUSION. URIC ACID AND LACTIC ACID WITHIN NORMAL RANGES. LAB REPORTS THAT PRELIMINARY BLOOD CULTURES ARE POSITIVE FOR GRAM NEGATIVE RODS. PRELIMINARY URINE CULTURE IS POSITIVE FOR GRAM POSITIVE COCCI. TODAY, WE WILL START PATIENT ON ZOSYN IV WELL VANCOMYCIN IV. WE WILL START HIM ON TAMIFLU PROPHYLACTICALLY AND ADD 1 AMP BICARB TO EACH LITER OF IVF. OTHERWISE, WE WILL CONTINUE TO MONITOR PATIENT TODAY AND FOLLOW UP WITH AM LABS. - Past Medical Family Social History Past Med/Fam/Surg Hx: No changes since H&P Allergies: Allergies codeine Allergy (Verified 07/30/17 02:52) morphine Allergy (Verified 07/30/17 02:52) - Review of Systems ROS: No change since H&P - Vital Signs and I&O's Vital Signs: Temperature 98.0 F Pulse Rate [Right Brachial] 123 Respiratory Rate 24 Blood Pressure [Right Arm] 168/82 Blood Pressure [Left Arm] 145/72 Blood Pressure [Left Radial 160/102 Artery] Blood Pressure 141/70 O2 Sat by Pulse Oximetry 98 Intake and Output: Intake & Output 08/04/17 08/05/17 08/06/17 08/07/17 11:59 11:59 11:59 11:59 Intake Total 5360 4800 Output Total 1750 Balance 3610 4800 - Physical Exam Oriented: Normal Eyes: Normal Ear: Normal Nose: Normal Throat: Normal Respiratory: Diminished Cardiovascular: Tachycardia. negative: S3, S4, Murmur : Normal Auscultation: Bowel Sounds: Normal Palpation: Normal Tenderness: Normal Skin: Normal Musculoskeletal: Normal Psychiatric: Normal Mood Description: Calm Affect: Normal Speech Pattern: Clear, Appropriate - Laboratory and Diagnostics Result Diagrams: 08/06/17 05:52 08/06/17 05:52 Labs: 08/04/17 17:00 Blood Blood Culture - Preliminary 08/04/17 16:55 Blood Blood Culture - Preliminary 08/04/17 21:04 Urine,Clean Catch Urine Culture - Preliminary Laboratory WBC 25.9 X10^3/uL (3.6-10.0) H 08/06/17 05:52 RBC 3.43 X10^6/uL (4.7-6.0) L 08/06/17 05:52 Hgb 7.9 g/dL (13.5-18.0) L 08/06/17 05:52 Hct 24.0 % (42.0-54.0) L 08/06/17 05:52 MCV 69.9 fL (80.0-100.0) L 08/06/17 05:52 MCH 23.2 pg (27.0-34.0) L 08/06/17 05:52 MCHC 33.1 g/dL (33.0-35.0) 08/06/17 05:52 RDW 19.4 % (11.6-16.5) H 08/06/17 05:52 Plt Count 315 X10^3/uL (150.0-450.0) 08/06/17 05:52 Plt Count Comment Adequate (ADEQUATE) 08/06/17 05:52 MPV 8.5 fL (7.4-11.0) 08/06/17 05:52 Neut % 92.0 % (42.0-75.0) H 08/06/17 05:52 Lymph % 2.9 % (21.0-51.0) L 08/06/17 05:52 [place] % 4.9 % (0.0-13.0) 08/06/17 05:52 Eos % 0.0 % (0.9-2.9) L 08/06/17 05:52 Baso % 0.2 % (0.2-1.0) 08/06/17 05:52 Neut # 23.9 x10^3/uL (2.2-4.8) H 08/06/17 05:52 Lymph # 0.7 X10^3/uL (1.3-2.9) L 08/06/17 05:52 [place] # 1.3 x10^3/uL (0.3-0.8) H 08/06/17 05:52 Eos # 0.0 x10^3/uL (0.0-0.2) 08/06/17 05:52 Baso # 0.0 X10^3/uL (0.0-0.1) 08/06/17 05:52 Absolute Nucleated RBC 0.0 /100WBC 08/06/17 05:52 Total Counted 100 08/06/17 05:52 Neutrophils % (Manual) 88 % (39-76) H 08/06/17 05:52 Band Neutrophils % 5 % (0-10) 08/06/17 05:52 Lymphocytes % (Manual) 4 % (13-43) L 08/06/17 05:52 Monocytes % (Manual) 3 % (4-9) L 08/06/17 05:52 Plt Morphology Comment Normal (NORMAL) 08/06/17 05:52 RBC Morphology Abnormal (NORMAL) 08/06/17 05:52 Hypochromasia 1+ A 08/06/17 05:52 Anisocytosis Slight A 08/06/17 05:52 Microcytosis 1+ A 08/06/17 05:52 ESR 91 MM/HOUR (0-15) H 08/05/17 05:55 Sample Site Lr 08/05/17 08:16 ABG pH 7.390 (7.35-7.45) 08/05/17 08:16 ABG pCO2 27.0 mmHg (35.0-45.0) L 08/05/17 08:16 ABG pO2 96.0 mmHg (80.0-100.0) 08/05/17 08:16 ABG HCO3 16.3 mmol/L (22-26) L* 08/05/17 08:16 ABG O2 Saturation 97.0 % (90-100) 08/05/17 08:16 ABG Base Excess -7.2 mmol/L (-2.0-2.0) L 08/05/17 08:16 Wang Test Pos 08/05/17 08:16 A-a Gradient 20.0 mmHg 08/05/17 08:16 FiO2 21.000 08/05/17 08:16 Blood Gas Comments Pt isabel well. cdn 08/05/17 08:16 Sodium 130 mmol/L (136-145) L 08/06/17 05:52 Corrected Sodium 133 mmol/L (136-145) L 08/06/17 05:52 Potassium 3.1 mmol/L (3.5-5.1) L 08/06/17 05:52 Chloride 96 mmol/L (98-107) L 08/06/17 05:52 Carbon Dioxide 15.3 mmol/L (21-32) L 08/06/17 05:52 BUN 10 mg/dL (7-18) 08/06/17 05:52 Creatinine 0.88 mg/dL (0.70-1.30) 08/06/17 05:52 Est GFR (MDRD) Af Amer > 60 (>60) 08/06/17 05:52 Est GFR (MDRD) Non-Af > 60 (>60) 08/06/17 05:52 Glucose 231 mg/dL (65-99) H 08/06/17 05:52 POC Glucose (mg/dL) 301 mg/dL (65-99) H 08/06/17 11:51 Lactic Acid 1.2 mmol/L (0.4-2.0) 08/05/17 10:30 Uric Acid 4.5 mg/dL (3.5-7.2) 08/05/17 05:55 Calcium 7.3 mg/dL (8.5-10.1) L 08/06/17 05:52 Corrected Calcium 9.1 mg/dL (8.5-10.1) 08/06/17 05:52 Magnesium 1.3 mg/dL (1.7-2.9) L 08/06/17 05:52 Total Bilirubin 0.90 mg/dL (0.2-1.0) 08/06/17 05:52 AST 14 Units/L (15-37) L 08/06/17 05:52 ALT 18 Units/L (12-78) 08/06/17 05:52 Alkaline Phosphatase 123 Units/L (46-116) H 08/06/17 05:52 C-Reactive Protein 234.60 mg/L (0-3.0) H 08/05/17 05:55 Total Protein 6.2 g/dL (6.4-8.2) L 08/06/17 05:52 Albumin 1.8 g/dL (3.4-5.0) L 08/06/17 05:52 Globulin 4.4 g/dL (2.5-4.5) 08/06/17 05:52 Albumin/Globulin Ratio 0.4 Ratio (1.1-2.1) L 08/06/17 05:52 Specimen Type Clean catch urine 08/04/17 21:04 Urine Color Yellow (YELLOW) 08/04/17 21:04 Urine Appearance Slightly hazy (CLEAR) 08/04/17 21:04 Urine pH 5.0 (5.0 - 8.0) 08/04/17 21:04 Ur Specific [place] 1.010 (1.000-1.030) 08/04/17 21:04 Urine Protein 2+ (NEGATIVE) 08/04/17 21:04 Urine Glucose (UA) 4+ (NEGATIVE) 08/04/17 21:04 Urine Ketones 4+ (NEGATIVE) 08/04/17 21:04 Urine Occult Blood 4+ (NEGATIVE) 08/04/17 21:04 Urine Nitrite Negative (NEGATIVE) 08/04/17 21:04 Urine Bilirubin Negative (NEGATIVE) 08/04/17 21:04 Urine Urobilinogen Normal (NORMAL) 08/04/17 21:04 Ur Leukocyte Esterase Negative (NEGATIVE) 08/04/17 21:04 Urine RBC 1-5 /HPF (NONE SEEN) 08/04/17 21:04 Urine WBC 0-4 /HPF (NONE SEEN) 08/04/17 21:04 Ur Squamous Epith Cells Rare /HPF (NEGATIVE) 08/04/17 21:04 Urine Bacteria Trace /HPF (NEGATIVE) 08/04/17 21:04 Urine Mucus Few /HPF (NEGATIVE) 08/04/17 21:04 Ur Culture Indicated? Yes/culture set up 08/04/17 21:04 Influenza Type A (PCR) Negative (NEGATIVE) 08/04/17 16:31 Influenza Type B (PCR) Negative (NEGATIVE) 08/04/17 16:31 S. pyogenes (TEM-PCR) Not detected (NOT DETECT) 08/04/17 16:31 - Plan (1) Fever of unknown origin (FUO) Status: Acute Plan: ZOSYN AND VANCOMYCIN IV, TYLENOL PRN FOR ELEVATED TEMPERATURE, CONTINUE TO MONITOR (2) Generalized weakness Status: Acute Plan: NORMAL SALINE AT 150ML/HR WITH 1 AMP BICARB TO EACH LITER OF IVF, CONTINUE TO MONITOR (3) Body aches Status: Acute Plan: TAMIFLU, CONTINUE TO MONITOR (4) History of anemia Status: Chronic Plan: CONTINUE TO MONITOR LABS (5) Hypertension Status: Chronic Qualifiers: Hypertension type: essential hypertension Plan: CATAPRES PATCH, COZAAR, CONTINUE TO MONITOR (6) Diabetes mellitus type 1 Status: Chronic Qualifiers: Diabetes mellitus complication status: without complication Qualified Code( s): E10.9 - Type 1 diabetes mellitus without complications Plan: CONTINUE TOUJEO, CONTINUE HUMALOG, CONTIUE TO MONITOR OTBS
[2017-08-06] MEDS: ALBUMIN HUMAN 25%- 100ML 100 ML IV SCH (14:29)
--- NOTE | 2017-08-06 18:20 | CT ---
CT abdomen and pelvis with contrast Indication: Abdominal pain Comparison: 01/13/2016 Technique: Multiple axial images of the abdomen and pelvis were obtained from the lung bases to the pubic symphy sis after the administration of IV contrast. Findings: The lung bases demonstrate multiple foci of ground-glass opacity within the right lower lobe, there i s questionable central clearing within the opacity on axial image 3. Evaluation of the upper abdomen is limited by motion artifact. No focal hepatic lesion. Prior cholecystectomy is noted. The spleen is unremarkable. The pancreas, adrenal glands, kidneys, upper GI tract, colon, urinary bladder and pros barajas gland are unremarkable. There is dilatation of the appendix with surrounding inflammatory change consistent acute appendicitis. No significant pelvic free fluid. No adenopathy. Abdominal aorta is n ormal in caliber. No acute osseous abnormality. Impression: 1.Dilatation of the appendix with right lower quadrant inflammatory change is consistent acute append icitis. No abscess or perforation is identified. Surgical consultation is recommended. 2. Patchy areas of ground-glass opacity within the right lower lobe likely represents developing infi ltrate/pneumonia; however, there is central clearing within one area of patchy consolidation and inga elation with chest CT follow-up in 2-4 weeks is recommended to ensure resolution and exclude underlyi ng cavitary nodule or parenchymal abscess. 3. Refer to above for other incidental findings. Reported By:
[2017-08-06] MEDS ORDERED: SALINE 3% 15 ML NEB TX ONE (20:55)
[2017-08-06] MEDS: KLONOPIN TAB 1 MG PO PRN (21:17)
[2017-08-06] MEDS: DUONEB 0.5 MG/3 MG NEB SCH (21:17)
[2017-08-06] MEDS: TOUJEO SOLOSTAR PEN SC SCH (21:18)
[2017-08-06] MEDS: PHENERGAN INJ 25 MG IVP PRN (21:19)
[2017-08-06 21:28] LABS: CREATININE 1.1 mg/dL (0.70-1.30); VANCOMYCIN,TROUGH 8.1 ug/mL (15-20)
[2017-08-06] MEDS ORDERED: LEVAQUIN PREMIX IV 500 MG 500 MG/100 ML BAG IV ONE (22:07)
[2017-08-06] MEDS: D5 1/2 NS 1000 ML 1,000 ML IV SCH (22:36)
[2017-08-07] MEDS: TYLENOL 325 MG TAB PO PRN (00:05)
[2017-08-07] MEDS: NS 250 ML IV 250 ML IV SCH ×2 (00:16→14:26)
[2017-08-07] MEDS: NS 1000 ML 1,000 ML with SODIUM BICARBONATE 8.4% INJ ADULT 50 ML IV SCH ×8 (03:07→14:25)
[2017-08-07] MEDS: ZOSYN VIAL 3.375 GM 3.375 GM in NS 100 ML IV + SPIKE MINIBAG* 100 ML IV SCH ×3 (05:28→22:01)
[2017-08-07] MEDS: HumuLIN R SUBCUT PRN ×3 (06:33→17:24)
[2017-08-07] MEDS: HumaLOG SC SCH ×2 (06:45→12:44)
[2017-08-07 06:58] LABS: BASOPHILS # (AUTO) 0.1 X10^3/uL (0.0-0.1); BASOPHILS % (AUTO) 0.5 % (0.2-1.0); HEMATOCRIT 22.1 % (42.0-54.0); HEMOGLOBIN 7.6 g/dL (13.5-18.0); LYMPHOCYTES # (AUTO) 0.6 X10^3/uL (1.3-2.9); LYMPHOCYTES % (AUTO) 3.4 % (21.0-51.0); MEAN CORPUSCULAR HEMOGLOBIN 23.7 pg (27.0-34.0); MEAN CORPUSCULAR HGB CONC 34.2 g/dL (33.0-35.0); MEAN CORPUSCULAR VOLUME 69.2 fL (80.0-100.0); MEAN PLATELET VOLUME 8.4 fL (7.4-11.0); MONOCYTES # (AUTO) 1.3 x10^3/uL (0.3-0.8); NEUTROPHILS # (AUTO) 16.7 x10^3/uL (2.2-4.8); NEUTROPHILS % (AUTO) 89.1 % (42.0-75.0); PLATELET COUNT 366 X10^3/uL (150.0-450.0); RED BLOOD COUNT 3.19 X10^6/uL (4.7-6.0); RED CELL DISTRIBUTION WIDTH 19.4 % (11.6-16.5); WHITE BLOOD COUNT 18.7 X10^3/uL (3.6-10.0)
[2017-08-07 07:17] LABS: HYPOCHROMASIA 1+; MICROCYTOSIS 1+; PLATELET MORPHOLOGY COMMENT NORMAL (NORMAL)
[2017-08-07 07:18] LABS: ALANINE AMINOTRANSFERASE 14 Units/L (12-78); ALBUMIN 1.9 g/dL (3.4-5.0); ALKALINE PHOSPHATASE 105 Units/L (46-116); ASPARTATE AMINO TRANSFERASE 13 Units/L (15-37); BLOOD UREA NITROGEN 8 mg/dL (7-18); CALCIUM 7.4 mg/dL (8.5-10.1); CARBON DIOXIDE 17.7 mmol/L (21-32); CHLORIDE 93 mmol/L (98-107); COR CA(FOR HYPOALB) 9.1 mg/dL (8.5-10.1); COR NA(FOR HYPERGLY) 132 mmol/L (136-145); CREATININE 0.92 mg/dL (0.70-1.30); MAGNESIUM 1.8 mg/dL (1.7-2.9); SODIUM 127 mmol/L (136-145); TOTAL PROTEIN 6.2 g/dL (6.4-8.2); eGFR BLACK RACES > 60 (>60); eGFR NON BLACK RACES > 60 (>60)
[2017-08-07] MEDS: NS 1000 ML 1,000 ML ONE ×2 (08:30→08:40)
[2017-08-07] MEDS ORDERED: FENTANYL INJ 250 mcg ONE (08:37)
[2017-08-07] MEDS ORDERED: BACITRACIN VIAL ONE (08:52)
[2017-08-07] MEDS: DUONEB 0.5 MG/3 MG NEB SCH ×4 (08:53→21:41)
[2017-08-07] MEDS ORDERED: NS IRRIGATION 1000 ML 1,000 ML IR ONE (10:00)
[2017-08-07] MEDS: D5 1/2 NS 1000 ML 1,000 ML IV SCH ×4 (10:22→23:23)
[2017-08-07] MEDS: VANCOMYCIN HCL 1 GM VIAL 1 GM in NS 250 ML IV 250 ML IV SCH ×2 (10:23→20:37)
[2017-08-07] MEDS: ALBUMIN HUMAN 25%- 100ML 100 ML IV SCH (10:23)
[2017-08-07] MEDS: TAMIFLU PO SCH ×2 (10:23→20:37)
[2017-08-07] MEDS: K-DUR TAB 20 MEQ PO SCH (10:24)
[2017-08-07] MEDS: COZAAR PO SCH (10:24)
[2017-08-07] MEDS: PROTONIX TAB 40 MG PO SCH ×2 (10:24→20:36)
[2017-08-07] MEDS: PEPCID TAB 20 MG PO SCH ×2 (10:24→20:36)
[2017-08-07] MEDS ORDERED: REGLAN INJ 10 MG VIAL IVP PRN (10:28)
[2017-08-07] MEDS ORDERED: ZOFRAN INJ 4 MG VIAL IVP PRN (10:28)
[2017-08-07] MEDS ORDERED: BENADRYL INJ 50 MG VIAL IVP PRN (10:28)
[2017-08-07] MEDS ORDERED: DILAUDID INJ IVP PRN (10:28)
[2017-08-07] MEDS ORDERED: PHENERGAN INJ 25 MG IVP PRN (10:28)
--- NOTE | 2017-08-07 10:41 | OR.GENERIC ---
Post-Op Note Generic - Post-Op Note Operative Report: Post Operative note. 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 moderate inflamation and mesenteric adenitis.. normal sigmoid and small bowel , no IBD or mecklel diverticulum.. normal stomach and liver appendectomy was done ..no complications . EBL 10 cc
[2017-08-07] MEDS ORDERED: EPHEDRINE SULFATE INJ ONE (15:44)
[2017-08-07 17:38] LABS: HEMATOCRIT 23.2 % (42.0-54.0); HEMOGLOBIN 7.9 g/dL (13.5-18.0)
[2017-08-07] MEDS: TOUJEO SOLOSTAR PEN SC SCH (20:37)
[2017-08-07 22:01] LABS: HEMATOCRIT 21.8 % (42.0-54.0); HEMOGLOBIN 7.5 g/dL (13.5-18.0)
[2017-08-07] MEDS: ROBITUSSIN DM PO PRN (23:37)
[2017-08-08 01:19] LABS: HEMATOCRIT 19.6 % (42.0-54.0); HEMOGLOBIN 6.7 g/dL (13.5-18.0)
[2017-08-08] MEDS ORDERED: NS 500 ML IV 500 ML IV ONE (01:21)
[2017-08-08] MEDS ORDERED: BENADRYL INJ 50 MG VIAL IVP PRN (01:25)
[2017-08-08] MEDS: TYLENOL 325 MG TAB PO PRN ×2 (01:29→18:17)
[2017-08-08] MEDS: DEMEROL INJ IVP PRN ×3 (01:43→21:20)
[2017-08-08] MEDS: HumaLOG SC SCH ×4 (05:48→18:16)
[2017-08-08] MEDS: ZOSYN VIAL 3.375 GM 3.375 GM in NS 100 ML IV + SPIKE MINIBAG* 100 ML IV SCH ×3 (05:55→21:18)
[2017-08-08] MEDS: D5 1/2 NS 1000 ML 1,000 ML IV SCH ×4 (06:01→19:39)
--- NOTE | 2017-08-08 07:32 | RAD ---
HISTORY: Fever, pneumonia Study: Chest AP portable Comparison: 08/04/2017 Findings: There is a right-sided port present. The heart is within normal limits in size. The jennifer are normal. There has been interval development of a right lower lobe infiltrate since the prior examination. Thi s is suspicious for pneumonia. The remainder of the lung [place] are clear. No pleural effusions are i dentified. The bony thorax is unremarkable. IMPRESSION: Interval development of a right lower lobe infiltrate since the prior examination Reported By:
[2017-08-08] MEDS: VANCOMYCIN HCL 1 GM VIAL 1 GM in NS 250 ML IV 250 ML IV SCH ×2 (08:59→21:18)
[2017-08-08] MEDS: COZAAR PO SCH (09:00)
[2017-08-08] MEDS: PROTONIX TAB 40 MG PO SCH ×2 (09:00→21:19)
[2017-08-08] MEDS: PEPCID TAB 20 MG PO SCH ×2 (09:00→21:19)
[2017-08-08] MEDS: ALBUMIN HUMAN 25%- 100ML 100 ML IV SCH (09:00)
[2017-08-08] MEDS: TAMIFLU PO SCH ×2 (09:01→21:19)
[2017-08-08] MEDS: K-DUR TAB 20 MEQ PO SCH (09:01)
[2017-08-08] MEDS: DUONEB 0.5 MG/3 MG NEB SCH ×4 (09:18→20:06)
[2017-08-08 09:29] LABS: BASOPHILS # (AUTO) 0.2 X10^3/uL (0.0-0.1); BASOPHILS % (AUTO) 1.3 % (0.2-1.0); EOSINOPHILS # (AUTO) 0.1 x10^3/uL (0.0-0.2); EOSINOPHILS % (AUTO) 0.6 % (0.9-2.9); HEMATOCRIT 28.1 % (42.0-54.0); LYMPHOCYTES # (AUTO) 1.1 X10^3/uL (1.3-2.9); MEAN CORPUSCULAR HEMOGLOBIN 24.7 pg (27.0-34.0); MEAN CORPUSCULAR HGB CONC 34.1 g/dL (33.0-35.0); MEAN CORPUSCULAR VOLUME 72.6 fL (80.0-100.0); MONOCYTES # (AUTO) 1.3 x10^3/uL (0.3-0.8); MONOCYTES % (AUTO) 7.9 % (0.0-13.0); NEUTROPHILS # (AUTO) 13.2 x10^3/uL (2.2-4.8); NEUTROPHILS % (AUTO) 83.2 % (42.0-75.0); PLATELET COUNT 383 X10^3/uL (150.0-450.0); RED BLOOD COUNT 3.86 X10^6/uL (4.7-6.0); RED CELL DISTRIBUTION WIDTH 21.6 % (11.6-16.5); WHITE BLOOD COUNT 15.9 X10^3/uL (3.6-10.0)
[2017-08-08 09:34] LABS: HEMOGLOBIN 9.6 g/dL (13.5-18.0)
[2017-08-08 09:46] LABS: ALANINE AMINOTRANSFERASE 17 Units/L (12-78); ALBUMIN 2.4 g/dL (3.4-5.0); ALKALINE PHOSPHATASE 87 Units/L (46-116); ASPARTATE AMINO TRANSFERASE 14 Units/L (15-37); BLOOD UREA NITROGEN 4 mg/dL (7-18); CALCIUM 7.4 mg/dL (8.5-10.1); CARBON DIOXIDE 25.7 mmol/L (21-32); CHLORIDE 99 mmol/L (98-107); COR CA(FOR HYPOALB) 8.7 mg/dL (8.5-10.1); COR NA(FOR HYPERGLY) 136 mmol/L (136-145); CREATININE 0.82 mg/dL (0.70-1.30); MAGNESIUM 1.7 mg/dL (1.7-2.9); SODIUM 135 mmol/L (136-145); TOTAL PROTEIN 6.5 g/dL (6.4-8.2); eGFR BLACK RACES > 60 (>60); eGFR NON BLACK RACES > 60 (>60)
[2017-08-08 10:10] LABS: ANISOCYTOSIS 1+; PLATELET MORPHOLOGY COMMENT NORMAL (NORMAL)
[2017-08-08] MEDS ORDERED: NITROSTAT SL ONE (10:14)
[2017-08-08] MEDS: POTASSIUM CHL 60 MEQ/NS 0.45% 500 ML IV PRN (10:20)
[2017-08-08] MEDS ORDERED: NITROSTAT SL PRN (10:21)
--- NOTE | 2017-08-08 10:27 | DR.PROGNOT ---
Hospital Progress Notes - Progress Note for Day of: Progress Note Date: 08/08/17 - Chief Complaint Chief Complaint: PO Lap Appendectomy day 1 . doing very well , alert and more cheerful today . afebrile . c/o Lt elbow pain . Hgb is low - Past Medical Family Social History Past Med/Fam/Surg Hx: No changes since H&P Allergies: Allergies codeine Allergy (Verified 07/30/17 02:52) morphine Allergy (Verified 07/30/17 02:52) - Review Of Systems ROS: No change since H&P - Vital Signs Vital Signs: Temperature 97.2 F Pulse Rate [Right Brachial] 93 Pulse Rate 91 Respiratory Rate 22 Blood Pressure [Right Arm] 165/86 Blood Pressure [Left Arm] 145/72 Blood Pressure [Left Radial 160/102 Artery] Blood Pressure 137/70 O2 Sat by Pulse Oximetry 96 - Physical Exam Oriented: Normal Eyes: Normal Ear: Normal Nose: Normal Throat: Normal Respiratory: Diminished Cardiovascular: Tachycardia. negative: S3, S4, Murmur : Normal GI:Auscultation: Normal GI:Palpation: Normal GI: Tenderness: RLQ, LLQ (soft abdomen , ), Moderate Skin: Normal Musculoskeletal: Normal Psychiatric: Normal Mood Description: Calm Affect: Normal Speech Pattern: Clear, Appropriate - Laboratory and Diagnostics Result Diagrams: 08/08/17 09:15 08/08/17 09:15 Labs: 08/04/17 21:04 Urine,Clean Catch Urine Culture - Preliminary 08/04/17 17:00 Blood Blood Culture - Final Klebsiella Pneumoniae 08/04/17 16:55 Blood Blood Culture - Final Klebsiella Pneumoniae Laboratory WBC 15.9 X10^3/uL (3.6-10.0) H 08/08/17 09:15 RBC 3.86 X10^6/uL (4.7-6.0) L 08/08/17 09:15 Hgb 9.6 g/dL (13.5-18.0) L D 08/08/17 09:15 Hct 28.1 % (42.0-54.0) L 08/08/17 09:15 MCV 72.6 fL (80.0-100.0) L 08/08/17 09:15 MCH 24.7 pg (27.0-34.0) L 08/08/17 09:15 MCHC 34.1 g/dL (33.0-35.0) 08/08/17 09:15 RDW 21.6 % (11.6-16.5) H 08/08/17 09:15 Plt Count 383 X10^3/uL (150.0-450.0) 08/08/17 09:15 Plt Count Comment Adequate (ADEQUATE) 08/08/17 09:15 MPV 8.0 fL (7.4-11.0) 08/08/17 09:15 Neut % 83.2 % (42.0-75.0) H 08/08/17 09:15 Lymph % 7.0 % (21.0-51.0) L 08/08/17 09:15 [place] % 7.9 % (0.0-13.0) 08/08/17 09:15 Eos % 0.6 % (0.9-2.9) L 08/08/17 09:15 Baso % 1.3 % (0.2-1.0) H 08/08/17 09:15 Neut # 13.2 x10^3/uL (2.2-4.8) H 08/08/17 09:15 Lymph # 1.1 X10^3/uL (1.3-2.9) L 08/08/17 09:15 [place] # 1.3 x10^3/uL (0.3-0.8) H 08/08/17 09:15 Eos # 0.1 x10^3/uL (0.0-0.2) 08/08/17 09:15 Baso # 0.2 X10^3/uL (0.0-0.1) H 08/08/17 09:15 Absolute Nucleated RBC 0.0 /100WBC 08/08/17 09:15 Total Counted 100 08/06/17 05:52 Neutrophils % (Manual) 88 % (39-76) H 08/06/17 05:52 Band Neutrophils % 5 % (0-10) 08/06/17 05:52 Lymphocytes % (Manual) 4 % (13-43) L 08/06/17 05:52 Monocytes % (Manual) 3 % (4-9) L 08/06/17 05:52 Plt Morphology Comment Normal (NORMAL) 08/08/17 09:15 RBC Morphology Abnormal (NORMAL) 08/08/17 09:15 Hypochromasia 1+ A 08/07/17 06:40 Anisocytosis 1+ A 08/08/17 09:15 Microcytosis 1+ A 08/07/17 06:40 ESR 91 MM/HOUR (0-15) H 08/05/17 05:55 Sample Site Lr 08/05/17 08:16 ABG pH 7.390 (7.35-7.45) 08/05/17 08:16 ABG pCO2 27.0 mmHg (35.0-45.0) L 08/05/17 08:16 ABG pO2 96.0 mmHg (80.0-100.0) 08/05/17 08:16 ABG HCO3 16.3 mmol/L (22-26) L* 08/05/17 08:16 ABG O2 Saturation 97.0 % (90-100) 08/05/17 08:16 ABG Base Excess -7.2 mmol/L (-2.0-2.0) L 08/05/17 08:16 Wang Test Pos 08/05/17 08:16 A-a Gradient 20.0 mmHg 08/05/17 08:16 FiO2 21.000 08/05/17 08:16 Blood Gas Comments Pt isabel well. cdn 08/05/17 08:16 Sodium 135 mmol/L (136-145) L 08/08/17 09:15 Corrected Sodium 136 mmol/L (136-145) 08/08/17 09:15 Potassium 2.9 mmol/L (3.5-5.1) L* 08/08/17 09:15 Chloride 99 mmol/L (98-107) 08/08/17 09:15 Carbon Dioxide 25.7 mmol/L (21-32) 08/08/17 09:15 BUN 4 mg/dL (7-18) L 08/08/17 09:15 Creatinine 0.82 mg/dL (0.70-1.30) 08/08/17 09:15 Est GFR (MDRD) Af Amer > 60 (>60) 08/08/17 09:15 Est GFR (MDRD) Non-Af > 60 (>60) 08/08/17 09:15 Glucose 139 mg/dL (65-99) H 08/08/17 09:15 POC Glucose (mg/dL) 236 mg/dL (65-99) H 08/08/17 05:24 Lactic Acid 1.1 mmol/L (0.4-2.0) 08/07/17 19:27 Uric Acid 4.5 mg/dL (3.5-7.2) 08/05/17 05:55 Calcium 7.4 mg/dL (8.5-10.1) L 08/08/17 09:15 Corrected Calcium 8.7 mg/dL (8.5-10.1) 08/08/17 09:15 Magnesium 1.7 mg/dL (1.7-2.9) 08/08/17 09:15 Total Bilirubin 0.70 mg/dL (0.2-1.0) 08/08/17 09:15 AST 14 Units/L (15-37) L 08/08/17 09:15 ALT 17 Units/L (12-78) 08/08/17 09:15 Alkaline Phosphatase 87 Units/L (46-116) 08/08/17 09:15 C-Reactive Protein 234.60 mg/L (0-3.0) H 08/05/17 05:55 Total Protein 6.5 g/dL (6.4-8.2) 08/08/17 09:15 Albumin 2.4 g/dL (3.4-5.0) L 08/08/17 09:15 Globulin 4.1 g/dL (2.5-4.5) 08/08/17 09:15 Albumin/Globulin Ratio 0.6 Ratio (1.1-2.1) L 08/08/17 09:15 Specimen Type Clean catch urine 08/04/17 21:04 Urine Color Yellow (YELLOW) 08/04/17 21:04 Urine Appearance Slightly hazy (CLEAR) 08/04/17 21:04 Urine pH 5.0 (5.0 - 8.0) 08/04/17 21:04 Ur Specific [place] 1.010 (1.000-1.030) 08/04/17 21:04 Urine Protein 2+ (NEGATIVE) 08/04/17 21:04 Urine Glucose (UA) 4+ (NEGATIVE) 08/04/17 21:04 Urine Ketones 4+ (NEGATIVE) 08/04/17 21:04 Urine Occult Blood 4+ (NEGATIVE) 08/04/17 21:04 Urine Nitrite Negative (NEGATIVE) 08/04/17 21:04 Urine Bilirubin Negative (NEGATIVE) 08/04/17 21:04 Urine Urobilinogen Normal (NORMAL) 08/04/17 21:04 Ur Leukocyte Esterase Negative (NEGATIVE) 08/04/17 21:04 Urine RBC 1-5 /HPF (NONE SEEN) 08/04/17 21:04 Urine WBC 0-4 /HPF (NONE SEEN) 08/04/17 21:04 Ur Squamous Epith Cells Rare /HPF (NEGATIVE) 08/04/17 21:04 Urine Bacteria Trace /HPF (NEGATIVE) 08/04/17 21:04 Urine Mucus Few /HPF (NEGATIVE) 08/04/17 21:04 Ur Culture Indicated? Yes/culture set up 08/04/17 21:04 Vancomycin Trough 8.1 ug/mL (15-20) L 08/06/17 20:40 Influenza Type A (PCR) Negative (NEGATIVE) 08/04/17 16:31 Influenza Type B (PCR) Negative (NEGATIVE) 08/04/17 16:31 S. pyogenes (TEM-PCR) Not detected (NOT DETECT) 08/04/17 16:31 Tissue Pathology To follow 08/07/17 10:24 Blood Type O POSITIVE 08/07/17 09:03 Antibody Screen Negative 08/07/17 09:03 Crossmatch See Detail 08/07/17 09:03 - Assessment and Plan 1: PO appendectomy ,. anemia . acute bursitis Lt elbow . UTI. positive blood culture with G negative rods 2: will advance diet . same IV ATB - Problem Patient Problems: Patient Problems Body aches (Acute) R52 Fever of unknown origin (FUO) (Acute) R50.9 Generalized weakness (Acute) R53.1
[2017-08-08 14:01] LABS: HEMATOCRIT 28.3 % (42.0-54.0)
[2017-08-08 17:16] LABS: HEMATOCRIT 28.7 % (42.0-54.0); HEMOGLOBIN 9.7 g/dL (13.5-18.0)
[2017-08-08 20:23] LABS: CREATININE 0.95 mg/dL (0.70-1.30); VANCOMYCIN,TROUGH 6.2 ug/mL (15-20)
[2017-08-08] MEDS: ROBITUSSIN DM PO PRN (21:18)
[2017-08-08] MEDS: TOUJEO SOLOSTAR PEN SC SCH (21:19)
[2017-08-08 21:40] LABS: HEMATOCRIT 26.1 % (42.0-54.0); HEMOGLOBIN 8.9 g/dL (13.5-18.0)
[2017-08-09] MEDS: D5 1/2 NS 1000 ML 1,000 ML IV SCH ×2 (00:22→06:22)
[2017-08-09] MEDS: ROBITUSSIN DM PO PRN ×2 (01:05→23:59)
[2017-08-09] MEDS: DEMEROL INJ IVP PRN ×2 (01:05→22:44)
[2017-08-09 01:09] LABS: HEMATOCRIT 27.5 % (42.0-54.0); HEMOGLOBIN 9.5 g/dL (13.5-18.0)
[2017-08-09] MEDS: VANCOMYCIN HCL 1 GM VIAL 1 GM in NS 250 ML IV 250 ML IV SCH ×3 (05:02→22:20)
[2017-08-09] MEDS: HumaLOG SC SCH ×3 (05:41→18:38)
[2017-08-09 06:04] LABS: BASOPHILS # (AUTO) 0.2 X10^3/uL (0.0-0.1); BASOPHILS % (AUTO) 1.3 % (0.2-1.0); EOSINOPHILS # (AUTO) 0.1 x10^3/uL (0.0-0.2); EOSINOPHILS % (AUTO) 0.5 % (0.9-2.9); HEMATOCRIT 27.6 % (42.0-54.0); HEMOGLOBIN 9.5 g/dL (13.5-18.0); LYMPHOCYTES # (AUTO) 1.1 X10^3/uL (1.3-2.9); LYMPHOCYTES % (AUTO) 6.8 % (21.0-51.0); MEAN CORPUSCULAR HGB CONC 34.4 g/dL (33.0-35.0); MEAN CORPUSCULAR VOLUME 72.7 fL (80.0-100.0); MEAN PLATELET VOLUME 8.2 fL (7.4-11.0); MONOCYTES # (AUTO) 1.1 x10^3/uL (0.3-0.8); NEUTROPHILS # (AUTO) 13.3 x10^3/uL (2.2-4.8); NEUTROPHILS % (AUTO) 84.4 % (42.0-75.0); PLATELET COUNT 452 X10^3/uL (150.0-450.0); RED CELL DISTRIBUTION WIDTH 20.8 % (11.6-16.5); WHITE BLOOD COUNT 15.7 X10^3/uL (3.6-10.0)
[2017-08-09 06:16] LABS: ALANINE AMINOTRANSFERASE 14 Units/L (12-78); ALBUMIN 1.9 g/dL (3.4-5.0); ALKALINE PHOSPHATASE 90 Units/L (46-116); ASPARTATE AMINO TRANSFERASE 12 Units/L (15-37); BLOOD UREA NITROGEN 4 mg/dL (7-18); CALCIUM 7.3 mg/dL (8.5-10.1); CARBON DIOXIDE 24.9 mmol/L (21-32); CHLORIDE 97 mmol/L (98-107); COR NA(FOR HYPERGLY) 134 mmol/L (136-145); CREATININE 0.74 mg/dL (0.70-1.30); SODIUM 131 mmol/L (136-145); eGFR BLACK RACES > 60 (>60); eGFR NON BLACK RACES > 60 (>60)
[2017-08-09] MEDS: ZOSYN VIAL 3.375 GM 3.375 GM in NS 100 ML IV + SPIKE MINIBAG* 100 ML IV SCH ×3 (06:22→22:00)
[2017-08-09 06:33] LABS: ANISOCYTOSIS 1+; GIANT PLATELET FEW; HYPOCHROMASIA 1+
[2017-08-09 06:34] LABS: PLATELET MORPHOLOGY COMMENT ABNORMAL (NORMAL)
[2017-08-09] MEDS: DUONEB 0.5 MG/3 MG NEB SCH ×3 (08:49→21:03)
[2017-08-09] MEDS: TAMIFLU PO SCH ×2 (10:01→21:43)
[2017-08-09] MEDS: ALBUMIN HUMAN 25%- 100ML 100 ML IV SCH (10:01)
[2017-08-09] MEDS: K-DUR TAB 20 MEQ PO SCH (10:01)
[2017-08-09] MEDS: PROTONIX TAB 40 MG PO SCH ×2 (10:01→21:42)
[2017-08-09] MEDS: PEPCID TAB 20 MG PO SCH ×2 (10:02→21:42)
[2017-08-09] MEDS: COZAAR PO SCH (10:02)
[2017-08-09] MEDS: TYLENOL 325 MG TAB PO PRN (10:06)
--- NOTE | 2017-08-09 11:30 | DR.PROGNOT ---
Hospital Progress Notes - Progress Note for Day of: Progress Note Date: 08/09/17 - Chief Complaint Chief Complaint: PO Lap Appendectomy day 2. doing very well , alert and more cheerful today . afebrile . poor appetite .. no vomiting. c/o Lt elbow pain . moderate leukocytosis - Past Medical Family Social History Past Med/Fam/Surg Hx: No changes since H&P Allergies: Allergies codeine Allergy (Verified 07/30/17 02:52) morphine Allergy (Verified 07/30/17 02:52) - Review Of Systems ROS: No change since H&P - Vital Signs Vital Signs: Temperature 99 F Pulse Rate [Right Brachial] 105 Pulse Rate 101 Respiratory Rate 21 Blood Pressure [Right Arm] 166/80 Blood Pressure [Left Arm] 145/72 Blood Pressure [Left Radial 160/102 Artery] Blood Pressure 137/70 O2 Sat by Pulse Oximetry 96 - Physical Exam Oriented: Normal Eyes: Normal Ear: Normal Nose: Normal Throat: Normal Respiratory: Diminished Cardiovascular: Tachycardia. negative: S3, S4, Murmur : Normal GI:Auscultation: Normal GI:Palpation: Normal GI: Tenderness: RLQ, LLQ (soft abdomen , ), Moderate Skin: Normal Musculoskeletal: Normal Psychiatric: Normal Mood Description: Calm Affect: Normal Speech Pattern: Clear, Appropriate - Laboratory and Diagnostics Result Diagrams: 08/09/17 05:20 08/09/17 05:20 Labs: 08/04/17 21:04 Urine,Clean Catch Urine Culture - Final Staphylococcus Aureus 08/04/17 17:00 Blood Blood Culture - Final Klebsiella Pneumoniae 08/04/17 16:55 Blood Blood Culture - Final Klebsiella Pneumoniae Laboratory WBC 15.7 X10^3/uL (3.6-10.0) H 08/09/17 05:20 RBC 3.80 X10^6/uL (4.7-6.0) L 08/09/17 05:20 Hgb 9.5 g/dL (13.5-18.0) L 08/09/17 05:20 Hct 27.6 % (42.0-54.0) L 08/09/17 05:20 MCV 72.7 fL (80.0-100.0) L 08/09/17 05:20 MCH 25.0 pg (27.0-34.0) L 08/09/17 05:20 MCHC 34.4 g/dL (33.0-35.0) 08/09/17 05:20 RDW 20.8 % (11.6-16.5) H 08/09/17 05:20 Plt Count 452 X10^3/uL (150.0-450.0) H 08/09/17 05:20 Plt Count Comment Increased (ADEQUATE) 08/09/17 05:20 MPV 8.2 fL (7.4-11.0) 08/09/17 05:20 Neut % 84.4 % (42.0-75.0) H 08/09/17 05:20 Lymph % 6.8 % (21.0-51.0) L 08/09/17 05:20 [place] % 7.0 % (0.0-13.0) 08/09/17 05:20 Eos % 0.5 % (0.9-2.9) L 08/09/17 05:20 Baso % 1.3 % (0.2-1.0) H 08/09/17 05:20 Neut # 13.3 x10^3/uL (2.2-4.8) H 08/09/17 05:20 Lymph # 1.1 X10^3/uL (1.3-2.9) L 08/09/17 05:20 [place] # 1.1 x10^3/uL (0.3-0.8) H 08/09/17 05:20 Eos # 0.1 x10^3/uL (0.0-0.2) 08/09/17 05:20 Baso # 0.2 X10^3/uL (0.0-0.1) H 08/09/17 05:20 Absolute Nucleated RBC 0.0 /100WBC 08/09/17 05:20 Total Counted 100 08/06/17 05:52 Neutrophils % (Manual) 88 % (39-76) H 08/06/17 05:52 Band Neutrophils % 5 % (0-10) 08/06/17 05:52 Lymphocytes % (Manual) 4 % (13-43) L 08/06/17 05:52 Monocytes % (Manual) 3 % (4-9) L 08/06/17 05:52 Giant Platelets Few 08/09/17 05:20 Plt Morphology Comment Abnormal (NORMAL) 08/09/17 05:20 RBC Morphology Abnormal (NORMAL) 08/09/17 05:20 Hypochromasia 1+ A 08/09/17 05:20 Anisocytosis 1+ A 08/09/17 05:20 Microcytosis 1+ A 08/07/17 06:40 ESR 91 MM/HOUR (0-15) H 08/05/17 05:55 Sample Site Lr 08/05/17 08:16 ABG pH 7.390 (7.35-7.45) 08/05/17 08:16 ABG pCO2 27.0 mmHg (35.0-45.0) L 08/05/17 08:16 ABG pO2 96.0 mmHg (80.0-100.0) 08/05/17 08:16 ABG HCO3 16.3 mmol/L (22-26) L* 08/05/17 08:16 ABG O2 Saturation 97.0 % (90-100) 08/05/17 08:16 ABG Base Excess -7.2 mmol/L (-2.0-2.0) L 08/05/17 08:16 Wang Test Pos 08/05/17 08:16 A-a Gradient 20.0 mmHg 08/05/17 08:16 FiO2 21.000 08/05/17 08:16 Blood Gas Comments Pt isabel well. cdn 08/05/17 08:16 Sodium 131 mmol/L (136-145) L 08/09/17 05:20 Corrected Sodium 134 mmol/L (136-145) L 08/09/17 05:20 Potassium 3.5 mmol/L (3.5-5.1) 08/09/17 05:20 Chloride 97 mmol/L (98-107) L 08/09/17 05:20 Carbon Dioxide 24.9 mmol/L (21-32) 08/09/17 05:20 BUN 4 mg/dL (7-18) L 08/09/17 05:20 Creatinine 0.74 mg/dL (0.70-1.30) 08/09/17 05:20 Est GFR (MDRD) Af Amer > 60 (>60) 08/09/17 05:20 Est GFR (MDRD) Non-Af > 60 (>60) 08/09/17 05:20 Glucose 218 mg/dL (65-99) H 08/09/17 05:20 POC Glucose (mg/dL) 239 mg/dL (65-99) H 08/09/17 05:24 Lactic Acid 1.1 mmol/L (0.4-2.0) 08/07/17 19:27 Uric Acid 4.5 mg/dL (3.5-7.2) 08/05/17 05:55 Calcium 7.3 mg/dL (8.5-10.1) L 08/09/17 05:20 Corrected Calcium 9.0 mg/dL (8.5-10.1) 08/09/17 05:20 Magnesium 1.7 mg/dL (1.7-2.9) 08/08/17 09:15 Total Bilirubin 0.70 mg/dL (0.2-1.0) 08/09/17 05:20 AST 12 Units/L (15-37) L 08/09/17 05:20 ALT 14 Units/L (12-78) 08/09/17 05:20 Alkaline Phosphatase 90 Units/L (46-116) 08/09/17 05:20 C-Reactive Protein 234.60 mg/L (0-3.0) H 08/05/17 05:55 Total Protein 6.0 g/dL (6.4-8.2) L 08/09/17 05:20 Albumin 1.9 g/dL (3.4-5.0) L 08/09/17 05:20 Globulin 4.1 g/dL (2.5-4.5) 08/09/17 05:20 Albumin/Globulin Ratio 0.5 Ratio (1.1-2.1) L 08/09/17 05:20 Specimen Type Clean catch urine 08/04/17 21:04 Urine Color Yellow (YELLOW) 08/04/17 21:04 Urine Appearance Slightly hazy (CLEAR) 08/04/17 21:04 Urine pH 5.0 (5.0 - 8.0) 08/04/17 21:04 Ur Specific [place] 1.010 (1.000-1.030) 08/04/17 21:04 Urine Protein 2+ (NEGATIVE) 08/04/17 21:04 Urine Glucose (UA) 4+ (NEGATIVE) 08/04/17 21:04 Urine Ketones 4+ (NEGATIVE) 08/04/17 21:04 Urine Occult Blood 4+ (NEGATIVE) 08/04/17 21:04 Urine Nitrite Negative (NEGATIVE) 08/04/17 21:04 Urine Bilirubin Negative (NEGATIVE) 08/04/17 21:04 Urine Urobilinogen Normal (NORMAL) 08/04/17 21:04 Ur Leukocyte Esterase Negative (NEGATIVE) 08/04/17 21:04 Urine RBC 1-5 /HPF (NONE SEEN) 08/04/17 21:04 Urine WBC 0-4 /HPF (NONE SEEN) 08/04/17 21:04 Ur Squamous Epith Cells Rare /HPF (NEGATIVE) 08/04/17 21:04 Urine Bacteria Trace /HPF (NEGATIVE) 08/04/17 21:04 Urine Mucus Few /HPF (NEGATIVE) 08/04/17 21:04 Ur Culture Indicated? Yes/culture set up 08/04/17 21:04 Vancomycin Trough 6.2 ug/mL (15-20) L 08/08/17 20:00 Influenza Type A (PCR) Negative (NEGATIVE) 08/04/17 16:31 Influenza Type B (PCR) Negative (NEGATIVE) 08/04/17 16:31 S. pyogenes (TEM-PCR) Not detected (NOT DETECT) 08/04/17 16:31 Tissue Pathology To follow 08/07/17 10:24 Blood Type O POSITIVE 08/07/17 09:03 Antibody Screen Negative 08/07/17 09:03 Crossmatch See Detail 08/07/17 09:03 - Assessment and Plan 1: PO appendectomy ,. anemia . acute bursitis Lt elbow . UTI. positive blood culture with G negative rods 2: will advance diet . same IV ATB - Problem Patient Problems: Patient Problems Body aches (Acute) R52 Fever of unknown origin (FUO) (Acute) R50.9 Generalized weakness (Acute) R53.1
[2017-08-09] MEDS: CLINIMIX 5 %/15 % 1,000 ML with MVI INJ (ADULT) 10 ML, TRACE ELEMENTS INJ 10 ML, DRUG F... IV SCH ×4 (12:45)
[2017-08-09] MEDS ORDERED: PHARMACY COMMENT IV SCH (21:45)
[2017-08-09 21:47] LABS: CREATININE 0.99 mg/dL (0.70-1.30); VANCOMYCIN,TROUGH 12.8 ug/mL (15-20)
[2017-08-09] MEDS: TOUJEO SOLOSTAR PEN SC SCH (21:50)
[2017-08-10] MEDS ORDERED: NS 500 ML IV 500 ML IV ONE (02:57)
[2017-08-10] MEDS: CLINIMIX 5 %/15 % 1,000 ML with MVI INJ (ADULT) 10 ML, TRACE ELEMENTS INJ 10 ML, DRUG F... IV SCH ×12 (03:12→17:28)
[2017-08-10] MEDS: D5 1/2 NS 1000 ML 1,000 ML IV SCH ×3 (03:13→18:21)
[2017-08-10] MEDS: DEMEROL INJ IVP PRN ×3 (03:15→21:53)
[2017-08-10] MEDS: HumaLOG SC SCH ×3 (05:55→17:30)
[2017-08-10] MEDS: ZOSYN VIAL 3.375 GM 3.375 GM in NS 100 ML IV + SPIKE MINIBAG* 100 ML IV SCH ×3 (05:58→22:00)
[2017-08-10] MEDS: VANCOMYCIN HCL 1 GM VIAL 1 GM in NS 250 ML IV 250 ML IV SCH ×3 (06:06→22:00)
[2017-08-10 06:48] LABS: BASOPHILS % (AUTO) 0.3 % (0.2-1.0); EOSINOPHILS # (AUTO) 0.1 x10^3/uL (0.0-0.2); EOSINOPHILS % (AUTO) 0.4 % (0.9-2.9); HEMATOCRIT 24.9 % (42.0-54.0); HEMOGLOBIN 8.5 g/dL (13.5-18.0); LYMPHOCYTES % (AUTO) 8.1 % (21.0-51.0); MEAN CORPUSCULAR HEMOGLOBIN 25.1 pg (27.0-34.0); MEAN CORPUSCULAR HGB CONC 34.3 g/dL (33.0-35.0); MEAN CORPUSCULAR VOLUME 73.3 fL (80.0-100.0); MONOCYTES # (AUTO) 1.3 x10^3/uL (0.3-0.8); NEUTROPHILS # (AUTO) 10.3 x10^3/uL (2.2-4.8); NEUTROPHILS % (AUTO) 81.2 % (42.0-75.0); PLATELET COUNT 468 X10^3/uL (150.0-450.0); WHITE BLOOD COUNT 12.7 X10^3/uL (3.6-10.0)
[2017-08-10 06:53] LABS: ALANINE AMINOTRANSFERASE 12 Units/L (12-78); ALBUMIN 1.9 g/dL (3.4-5.0); ALKALINE PHOSPHATASE 76 Units/L (46-116); ASPARTATE AMINO TRANSFERASE 9 Units/L (15-37); BLOOD UREA NITROGEN 8 mg/dL (7-18); CALCIUM 6.6 mg/dL (8.5-10.1); CARBON DIOXIDE 25.4 mmol/L (21-32); CHLORIDE 98 mmol/L (98-107); COR CA(FOR HYPOALB) 8.3 mg/dL (8.5-10.1); COR NA(FOR HYPERGLY) 138 mmol/L (136-145); SODIUM 132 mmol/L (136-145); TOTAL PROTEIN 5.7 g/dL (6.4-8.2); eGFR BLACK RACES > 60 (>60); eGFR NON BLACK RACES > 60 (>60)
[2017-08-10 07:03] LABS: ANISOCYTOSIS 1+; OVALOCYTES 1+
[2017-08-10 07:08] LABS: PLATELET MORPHOLOGY COMMENT NORMAL (NORMAL)
--- NOTE | 2017-08-10 07:35 | RAD ---
HISTORY: Bronchopneumonia Study: Single-view chest Comparison: 08/08/2017 Findings: The trachea is midline. The cardiac silhouette is unremarkable. Persistent airspace opacity right l ower lobe consistent with bronchopneumonia. The left chest demonstrates chronic interstitial lung bryanna nges but is stable when compared to prior examination. A right-sided Port-A-Cath with tip in the SVC is again observed. The bony thorax is unremarkable. IMPRESSION: 1. Right lower lobe bronchopneumonia Reported By:
[2017-08-10] MEDS: DUONEB 0.5 MG/3 MG NEB SCH ×4 (08:53→21:12)
--- NOTE | 2017-08-10 09:35 | DR.PROGNOT ---
Hospital Progress Notes - Progress Note for Day of: Progress Note Date: 08/10/17 - Chief Complaint Chief Complaint: PO Lap Appendectomy day 3. doing very well , alert and more cheerful today . afebrile . appetite is getting better .. no vomiting. c/o Lt elbow pain . no BM but passing flatus. moderate leukocytosis - Past Medical Family Social History Past Med/Fam/Surg Hx: No changes since H&P Allergies: Allergies codeine Allergy (Verified 07/30/17 02:52) morphine Allergy (Verified 07/30/17 02:52) - Review Of Systems ROS: No change since H&P - Vital Signs Vital Signs: Temperature 98.7 F Pulse Rate [Right Brachial] 97 Pulse Rate 113 Respiratory Rate 33 Blood Pressure [Right Arm] 168/86 Blood Pressure [Left Arm] 164/88 Blood Pressure [Left Radial 160/102 Artery] Blood Pressure 137/70 O2 Sat by Pulse Oximetry 97 - Physical Exam Oriented: Normal Eyes: Normal Ear: Normal Nose: Normal Throat: Normal Respiratory: Diminished Cardiovascular: Tachycardia. negative: S3, S4, Murmur : Normal GI:Auscultation: Normal GI:Palpation: Normal GI: Tenderness: RLQ, LLQ (soft abdomen , with mild generalised tendernss , BS + no wound infection ..) Skin: Normal Musculoskeletal: Normal Psychiatric: Normal Mood Description: Calm Affect: Normal Speech Pattern: Clear, Appropriate - Laboratory and Diagnostics Result Diagrams: 08/10/17 05:45 08/10/17 05:45 Labs: 08/04/17 21:04 Urine,Clean Catch Urine Culture - Final Staphylococcus Aureus 08/04/17 17:00 Blood Blood Culture - Final Klebsiella Pneumoniae 08/04/17 16:55 Blood Blood Culture - Final Klebsiella Pneumoniae Laboratory WBC 12.7 X10^3/uL (3.6-10.0) H 08/10/17 05:45 RBC 3.40 X10^6/uL (4.7-6.0) L 08/10/17 05:45 Hgb 8.5 g/dL (13.5-18.0) L 08/10/17 05:45 Hct 24.9 % (42.0-54.0) L 08/10/17 05:45 MCV 73.3 fL (80.0-100.0) L 08/10/17 05:45 MCH 25.1 pg (27.0-34.0) L 08/10/17 05:45 MCHC 34.3 g/dL (33.0-35.0) 08/10/17 05:45 RDW 21.0 % (11.6-16.5) H 08/10/17 05:45 Plt Count 468 X10^3/uL (150.0-450.0) H 08/10/17 05:45 Plt Count Comment Adequate (ADEQUATE) 08/10/17 05:45 MPV 8.0 fL (7.4-11.0) 08/10/17 05:45 Neut % 81.2 % (42.0-75.0) H 08/10/17 05:45 Lymph % 8.1 % (21.0-51.0) L 08/10/17 05:45 [place] % 10.0 % (0.0-13.0) 08/10/17 05:45 Eos % 0.4 % (0.9-2.9) L 08/10/17 05:45 Baso % 0.3 % (0.2-1.0) 08/10/17 05:45 Neut # 10.3 x10^3/uL (2.2-4.8) H 08/10/17 05:45 Lymph # 1.0 X10^3/uL (1.3-2.9) L 08/10/17 05:45 [place] # 1.3 x10^3/uL (0.3-0.8) H 08/10/17 05:45 Eos # 0.1 x10^3/uL (0.0-0.2) 08/10/17 05:45 Baso # 0.0 X10^3/uL (0.0-0.1) 08/10/17 05:45 Absolute Nucleated RBC 0.1 /100WBC 08/10/17 05:45 Total Counted 100 08/06/17 05:52 Neutrophils % (Manual) 88 % (39-76) H 08/06/17 05:52 Band Neutrophils % 5 % (0-10) 08/06/17 05:52 Lymphocytes % (Manual) 4 % (13-43) L 08/06/17 05:52 Monocytes % (Manual) 3 % (4-9) L 08/06/17 05:52 Giant Platelets Few 08/09/17 05:20 Plt Morphology Comment Normal (NORMAL) 08/10/17 05:45 RBC Morphology Normal (NORMAL) 08/10/17 05:45 Hypochromasia 1+ A 08/09/17 05:20 Anisocytosis 1+ A 08/10/17 05:45 Microcytosis 1+ A 08/07/17 06:40 Ovalocytes 1+ A 08/10/17 05:45 ESR 91 MM/HOUR (0-15) H 08/05/17 05:55 Sample Site Lr 08/05/17 08:16 ABG pH 7.390 (7.35-7.45) 08/05/17 08:16 ABG pCO2 27.0 mmHg (35.0-45.0) L 08/05/17 08:16 ABG pO2 96.0 mmHg (80.0-100.0) 08/05/17 08:16 ABG HCO3 16.3 mmol/L (22-26) L* 08/05/17 08:16 ABG O2 Saturation 97.0 % (90-100) 08/05/17 08:16 ABG Base Excess -7.2 mmol/L (-2.0-2.0) L 08/05/17 08:16 Wang Test Pos 08/05/17 08:16 A-a Gradient 20.0 mmHg 08/05/17 08:16 FiO2 21.000 08/05/17 08:16 Blood Gas Comments Pt isabel well. cdn 08/05/17 08:16 Sodium 132 mmol/L (136-145) L 08/10/17 05:45 Corrected Sodium 138 mmol/L (136-145) 08/10/17 05:45 Potassium 3.1 mmol/L (3.5-5.1) L 08/10/17 05:45 Chloride 98 mmol/L (98-107) 08/10/17 05:45 Carbon Dioxide 25.4 mmol/L (21-32) 08/10/17 05:45 BUN 8 mg/dL (7-18) 08/10/17 05:45 Creatinine 0.70 mg/dL (0.70-1.30) 08/10/17 05:45 Est GFR (MDRD) Af Amer > 60 (>60) 08/10/17 05:45 Est GFR (MDRD) Non-Af > 60 (>60) 08/10/17 05:45 Glucose 341 mg/dL (65-99) H 08/10/17 05:45 POC Glucose (mg/dL) 396 mg/dL (65-99) H 08/10/17 05:42 Lactic Acid 1.1 mmol/L (0.4-2.0) 08/07/17 19:27 Uric Acid 4.5 mg/dL (3.5-7.2) 08/05/17 05:55 Calcium 6.6 mg/dL (8.5-10.1) L 08/10/17 05:45 Corrected Calcium 8.3 mg/dL (8.5-10.1) L 08/10/17 05:45 Magnesium 1.7 mg/dL (1.7-2.9) 08/08/17 09:15 Total Bilirubin 0.60 mg/dL (0.2-1.0) 08/10/17 05:45 AST 9 Units/L (15-37) L 08/10/17 05:45 ALT 12 Units/L (12-78) 08/10/17 05:45 Alkaline Phosphatase 76 Units/L (46-116) 08/10/17 05:45 C-Reactive Protein 234.60 mg/L (0-3.0) H 08/05/17 05:55 Total Protein 5.7 g/dL (6.4-8.2) L 08/10/17 05:45 Albumin 1.9 g/dL (3.4-5.0) L 08/10/17 05:45 Globulin 3.8 g/dL (2.5-4.5) 08/10/17 05:45 Albumin/Globulin Ratio 0.5 Ratio (1.1-2.1) L 08/10/17 05:45 Specimen Type Clean catch urine 08/04/17 21:04 Urine Color Yellow (YELLOW) 08/04/17 21:04 Urine Appearance Slightly hazy (CLEAR) 08/04/17 21:04 Urine pH 5.0 (5.0 - 8.0) 08/04/17 21:04 Ur Specific [place] 1.010 (1.000-1.030) 08/04/17 21:04 Urine Protein 2+ (NEGATIVE) 08/04/17 21:04 Urine Glucose (UA) 4+ (NEGATIVE) 08/04/17 21:04 Urine Ketones 4+ (NEGATIVE) 08/04/17 21:04 Urine Occult Blood 4+ (NEGATIVE) 08/04/17 21:04 Urine Nitrite Negative (NEGATIVE) 08/04/17 21:04 Urine Bilirubin Negative (NEGATIVE) 08/04/17 21:04 Urine Urobilinogen Normal (NORMAL) 08/04/17 21:04 Ur Leukocyte Esterase Negative (NEGATIVE) 08/04/17 21:04 Urine RBC 1-5 /HPF (NONE SEEN) 08/04/17 21:04 Urine WBC 0-4 /HPF (NONE SEEN) 08/04/17 21:04 Ur Squamous Epith Cells Rare /HPF (NEGATIVE) 08/04/17 21:04 Urine Bacteria Trace /HPF (NEGATIVE) 08/04/17 21:04 Urine Mucus Few /HPF (NEGATIVE) 08/04/17 21:04 Ur Culture Indicated? Yes/culture set up 08/04/17 21:04 Vancomycin Trough 12.8 ug/mL (15-20) L 08/09/17 21:10 Influenza Type A (PCR) Negative (NEGATIVE) 08/04/17 16:31 Influenza Type B (PCR) Negative (NEGATIVE) 08/04/17 16:31 S. pyogenes (TEM-PCR) Not detected (NOT DETECT) 08/04/17 16:31 Tissue Pathology To follow 08/07/17 10:24 Blood Type O POSITIVE 08/07/17 09:03 Antibody Screen Negative 08/07/17 09:03 Crossmatch See Detail 08/07/17 09:03 - Assessment and Plan 1: PO appendectomy ,. anemia . acute bursitis Lt elbow .and maybe infectious arthritis. UTI. positive blood culture with G negative rods 2: will advance diet . same IV ATB. will follow in 10 days to remove lan . - Problem Patient Problems: Patient Problems Body aches (Acute) R52 Fever of unknown origin (FUO) (Acute) R50.9 Generalized weakness (Acute) R53.1
[2017-08-10] MEDS: ALBUMIN HUMAN 25%- 100ML 100 ML IV SCH (10:28)
[2017-08-10] MEDS: PEPCID TAB 20 MG PO SCH ×2 (10:29→21:57)
[2017-08-10] MEDS: COZAAR PO SCH (10:29)
[2017-08-10] MEDS: PROTONIX TAB 40 MG PO SCH ×2 (10:30→21:57)
[2017-08-10] MEDS: TAMIFLU PO SCH ×2 (10:30→21:57)
[2017-08-10] MEDS: TYLENOL 325 MG TAB PO PRN (17:29)
[2017-08-10] MEDS: K-DUR TAB 20 MEQ PO SCH (21:50)
[2017-08-10] MEDS: TOUJEO SOLOSTAR PEN SC SCH (22:02)
[2017-08-11] MEDS: DEMEROL INJ IVP PRN ×2 (05:09→23:49)
[2017-08-11] MEDS: CLINIMIX 5 %/15 % 1,000 ML with MVI INJ (ADULT) 10 ML, TRACE ELEMENTS INJ 10 ML, DRUG F... IV SCH ×12 (05:11→20:40)
[2017-08-11] MEDS: ZOSYN VIAL 3.375 GM 3.375 GM in NS 100 ML IV + SPIKE MINIBAG* 100 ML IV SCH ×3 (05:27→22:02)
--- NOTE | 2017-08-11 05:38 | PCM.PROG ---
Progress Note - Progress Note for Day of Date: 08/06/17 - Subjective Subjective: WAS ADMITTED FOR FEVER OF UNKNOWN ORIGIN AND GENERALIZED BODY ACHES. TODAY, HE IS ALERT AND ORIENTED, LYING IN BED ON MORNING ROUNDS. HE CONTINUES WITH COMPLAINTS OF GENERALIZED BODY ACHES. TODAY, HE IS NOTED WITH A NEW COMPLAINT OF RLQ ABDOMINAL PAIN. HE ALSO CONTINUES WITH PAIN AND SWELLING TO HIS LEFT ELBOW. HE DENIES KNOWN INJURY. BILATERAL LUNGS ARE NOTED WITH RHONCHI THROUGHOUT. ABDOMEN IS ROUND, SOFT, AND NOTED WITH RLQ TENDERNESS TO PALPATION. NORMAL BOWEL SOUNDS NOTED IN ALL QUADRANTS. LEFT ELBOW IS NOTED TO BE WARM TO TOUCH AND IS EDEMATOUS. THERE IS NORMAL RANGE OF MOTION TO ALL EXTREMITIES. HIS VITALS THIS MORNING ARE 98.4-96-20-100%-123/66. TEMERATURE WAS NOTED TO SPIKE AT 102.2 AT 0400. LABS WERE OBTAINED. ABNORMAL LAB VALUES INCLUDE THE FOLLOWING: WBC 25.9, RBC 3.43, HGB 7.9, HCT 24.0, SODIUM 130, POTASSIUM 3.1, CHLORIDE 96, CARBON DIOXIDE 15.3, GLUCOSE 231, CALCIUM 7.9, MAGNESIUM 1.3, AST 14, ALK PHOS 123, TOTAL PROTEIN 6.2, ALBUMIN 1.8. BLOOD CULTURES ARE POSITIVE FOR KLEBSIELLA PNEUMONIAE. URINE CULTURE IS POSTIVE FOR STAPHYLOCOCCUS AUREUS. BOTH ARE SENSITIVE TO THE VANCOMYCIN AND ZOSYN THAT WE STARTED HIM ON YESTERDAY. TODAY, WE PLAN TO OBTAIN A CT OF THE ABD/PELVIS WITH CONTRAST. WE WILL ALSO START ALBUMIN 25% IV DAILY. OTHERWISE, WE WILL CONTINUE TO MONITOR PATIENT TODAY AND FOLLOW UP WITH AM LABS. - Past Medical Family Social History Past Med/Fam/Surg Hx: No changes since H&P Allergies: Allergies codeine Allergy (Verified 07/30/17 02:52) morphine Allergy (Verified 07/30/17 02:52) - Review of Systems ROS: No change since H&P - Vital Signs and I&O's Vital Signs: Temperature 98.0 F Pulse Rate [Right Brachial] 115 Pulse Rate 108 Respiratory Rate 23 Blood Pressure [Right Arm] 100/50 Blood Pressure [Left Arm] 164/88 Blood Pressure [Left Radial 160/102 Artery] Blood Pressure 137/70 O2 Sat by Pulse Oximetry 88 Intake and Output: Intake & Output 08/08/17 08/09/17 08/10/17 08/11/17 11:59 11:59 11:59 11:59 Intake Total 7683 6019 5517 9292 Output Total 0428 8830 3800 950 Balance 25 1931 1775 2865 - Physical Exam Oriented: Normal Eyes: Normal Ear: Normal Nose: Normal Throat: Normal Respiratory: Diminished Cardiovascular: Tachycardia. negative: S3, S4, Murmur : Normal Auscultation: Bowel Sounds: Normal Palpation: Normal Tenderness: RLQ Skin: Normal Musculoskeletal: Left, Elbow, Swelling, Tender Psychiatric: Normal Mood Description: Calm Affect: Normal Speech Pattern: Clear, Appropriate - Laboratory and Diagnostics Result Diagrams: 08/10/17 05:45 08/10/17 05:45 Labs: 08/04/17 21:04 Urine,Clean Catch Urine Culture - Final Staphylococcus Aureus 08/04/17 17:00 Blood Blood Culture - Final Klebsiella Pneumoniae 08/04/17 16:55 Blood Blood Culture - Final Klebsiella Pneumoniae Laboratory WBC 12.7 X10^3/uL (3.6-10.0) H 08/10/17 05:45 RBC 3.40 X10^6/uL (4.7-6.0) L 08/10/17 05:45 Hgb 8.5 g/dL (13.5-18.0) L 08/10/17 05:45 Hct 24.9 % (42.0-54.0) L 08/10/17 05:45 MCV 73.3 fL (80.0-100.0) L 08/10/17 05:45 MCH 25.1 pg (27.0-34.0) L 08/10/17 05:45 MCHC 34.3 g/dL (33.0-35.0) 08/10/17 05:45 RDW 21.0 % (11.6-16.5) H 08/10/17 05:45 Plt Count 468 X10^3/uL (150.0-450.0) H 08/10/17 05:45 Plt Count Comment Adequate (ADEQUATE) 08/10/17 05:45 MPV 8.0 fL (7.4-11.0) 08/10/17 05:45 Neut % 81.2 % (42.0-75.0) H 08/10/17 05:45 Lymph % 8.1 % (21.0-51.0) L 08/10/17 05:45 Dukes % 10.0 % (0.0-13.0) 08/10/17 05:45 Eos % 0.4 % (0.9-2.9) L 08/10/17 05:45 Baso % 0.3 % (0.2-1.0) 08/10/17 05:45 Neut # 10.3 x10^3/uL (2.2-4.8) H 08/10/17 05:45 Lymph # 1.0 X10^3/uL (1.3-2.9) L 08/10/17 05:45 Dukes # 1.3 x10^3/uL (0.3-0.8) H 08/10/17 05:45 Eos # 0.1 x10^3/uL (0.0-0.2) 08/10/17 05:45 Baso # 0.0 X10^3/uL (0.0-0.1) 08/10/17 05:45 Absolute Nucleated RBC 0.1 /100WBC 08/10/17 05:45 Total Counted 100 08/06/17 05:52 Neutrophils % (Manual) 88 % (39-76) H 08/06/17 05:52 Band Neutrophils % 5 % (0-10) 08/06/17 05:52 Lymphocytes % (Manual) 4 % (13-43) L 08/06/17 05:52 Monocytes % (Manual) 3 % (4-9) L 08/06/17 05:52 Giant Platelets Few 08/09/17 05:20 Plt Morphology Comment Normal (NORMAL) 08/10/17 05:45 RBC Morphology Normal (NORMAL) 08/10/17 05:45 Hypochromasia 1+ A 08/09/17 05:20 Anisocytosis 1+ A 08/10/17 05:45 Microcytosis 1+ A 08/07/17 06:40 Ovalocytes 1+ A 08/10/17 05:45 ESR 91 MM/HOUR (0-15) H 08/05/17 05:55 Sample Site Lr 08/05/17 08:16 ABG pH 7.390 (7.35-7.45) 08/05/17 08:16 ABG pCO2 27.0 mmHg (35.0-45.0) L 08/05/17 08:16 ABG pO2 96.0 mmHg (80.0-100.0) 08/05/17 08:16 ABG HCO3 16.3 mmol/L (22-26) L* 08/05/17 08:16 ABG O2 Saturation 97.0 % (90-100) 08/05/17 08:16 ABG Base Excess -7.2 mmol/L (-2.0-2.0) L 08/05/17 08:16 Wang Test Pos 08/05/17 08:16 A-a Gradient 20.0 mmHg 08/05/17 08:16 FiO2 21.000 08/05/17 08:16 Blood Gas Comments Pt isabel well. cdn 08/05/17 08:16 Sodium 132 mmol/L (136-145) L 08/10/17 05:45 Corrected Sodium 138 mmol/L (136-145) 08/10/17 05:45 Potassium 3.1 mmol/L (3.5-5.1) L 08/10/17 05:45 Chloride 98 mmol/L (98-107) 08/10/17 05:45 Carbon Dioxide 25.4 mmol/L (21-32) 08/10/17 05:45 BUN 8 mg/dL (7-18) 08/10/17 05:45 Creatinine 0.70 mg/dL (0.70-1.30) 08/10/17 05:45 Est GFR (MDRD) Af Amer > 60 (>60) 08/10/17 05:45 Est GFR (MDRD) Non-Af > 60 (>60) 08/10/17 05:45 Glucose 341 mg/dL (65-99) H 08/10/17 05:45 POC Glucose (mg/dL) 325 mg/dL (65-99) H 08/10/17 22:09 Lactic Acid 1.1 mmol/L (0.4-2.0) 08/07/17 19:27 Uric Acid 4.5 mg/dL (3.5-7.2) 08/05/17 05:55 Calcium 6.6 mg/dL (8.5-10.1) L 08/10/17 05:45 Corrected Calcium 8.3 mg/dL (8.5-10.1) L 08/10/17 05:45 Magnesium 1.7 mg/dL (1.7-2.9) 08/08/17 09:15 Total Bilirubin 0.60 mg/dL (0.2-1.0) 08/10/17 05:45 AST 9 Units/L (15-37) L 08/10/17 05:45 ALT 12 Units/L (12-78) 08/10/17 05:45 Alkaline Phosphatase 76 Units/L (46-116) 08/10/17 05:45 C-Reactive Protein 234.60 mg/L (0-3.0) H 08/05/17 05:55 Total Protein 5.7 g/dL (6.4-8.2) L 08/10/17 05:45 Albumin 1.9 g/dL (3.4-5.0) L 08/10/17 05:45 Globulin 3.8 g/dL (2.5-4.5) 08/10/17 05:45 Albumin/Globulin Ratio 0.5 Ratio (1.1-2.1) L 08/10/17 05:45 Specimen Type Clean catch urine 08/04/17 21:04 Urine Color Yellow (YELLOW) 08/04/17 21:04 Urine Appearance Slightly hazy (CLEAR) 08/04/17 21:04 Urine pH 5.0 (5.0 - 8.0) 08/04/17 21:04 Ur Specific [place] 1.010 (1.000-1.030) 08/04/17 21:04 Urine Protein 2+ (NEGATIVE) 08/04/17 21:04 Urine Glucose (UA) 4+ (NEGATIVE) 08/04/17 21:04 Urine Ketones 4+ (NEGATIVE) 08/04/17 21:04 Urine Occult Blood 4+ (NEGATIVE) 08/04/17 21:04 Urine Nitrite Negative (NEGATIVE) 08/04/17 21:04 Urine Bilirubin Negative (NEGATIVE) 08/04/17 21:04 Urine Urobilinogen Normal (NORMAL) 08/04/17 21:04 Ur Leukocyte Esterase Negative (NEGATIVE) 08/04/17 21:04 Urine RBC 1-5 /HPF (NONE SEEN) 08/04/17 21:04 Urine WBC 0-4 /HPF (NONE SEEN) 08/04/17 21:04 Ur Squamous Epith Cells Rare /HPF (NEGATIVE) 08/04/17 21:04 Urine Bacteria Trace /HPF (NEGATIVE) 08/04/17 21:04 Urine Mucus Few /HPF (NEGATIVE) 08/04/17 21:04 Ur Culture Indicated? Yes/culture set up 08/04/17 21:04 Vancomycin Trough 12.8 ug/mL (15-20) L 08/09/17 21:10 Influenza Type A (PCR) Negative (NEGATIVE) 08/04/17 16:31 Influenza Type B (PCR) Negative (NEGATIVE) 08/04/17 16:31 S. pyogenes (TEM-PCR) Not detected (NOT DETECT) 08/04/17 16:31 Tissue Pathology To follow 08/07/17 10:24 Blood Type O POSITIVE 08/07/17 09:03 Antibody Screen Negative 08/07/17 09:03 Crossmatch See Detail 08/07/17 09:03 - Plan (1) Fever of unknown origin (FUO) Status: Acute Plan: ZOSYN AND VANCOMYCIN IV, TYLENOL PRN FOR ELEVATED TEMPERATURE, CONTINUE TO MONITOR (2) Generalized weakness Status: Acute Plan: NORMAL SALINE AT 150ML/HR WITH 1 AMP BICARB TO EACH LITER OF IVF, CONTINUE TO MONITOR (3) Body aches Status: Acute Plan: TAMIFLU, CONTINUE TO MONITOR (4) History of anemia Status: Chronic Plan: CONTINUE TO MONITOR LABS (5) Hypertension Status: Chronic Qualifiers: Hypertension type: essential hypertension Plan: CATAPRES PATCH COZAAR, CONTINUE TO MONITOR (6) Diabetes mellitus type 1 Status: Chronic Qualifiers: Diabetes mellitus complication status: without complication Qualified Code( s): E10.9 - Type 1 diabetes mellitus without complications Plan: CONTINUE TOUJEO, CONTINUE HUMALOG, CONTIUE TO MONITOR OTBS
--- NOTE | 2017-08-11 05:58 | PCM.PROG ---
Progress Note - Progress Note for Day of Date: 08/07/17 - Subjective Subjective: WAS ADMITTED FOR FEVER OF UNKNOWN ORIGIN AND GENERALIZED BODY ACHES. TODAY, HE IS ALERT AND ORIENTED, LYING IN BED ON MORNING ROUNDS. HE CONTINUES WITH COMPLAINTS OF GENERALIZED BODY ACHES, ABDOMINAL PAIN, AND LEFT ELBOW PAIN. HE ALSO REPORTS SHORTNESS OF BREATH. ON EXAMINATION, BILATERAL LUNGS ARE NOTED WITH RHONCHI AND WHEEZING THROUGHOUT. HE IS CURRENTLY UTILIZING OXYGEN VIA NASAL CANNULA AT 2L/MIN. ABDOMEN IS ROUND, SOFT, AND NOTED WITH RLQ TENDERNESS TO PALPATION. NORMAL BOWEL SOUNDS NOTED IN ALL QUADRANTS. LEFT ELBOW IS NOTED TO BE WARM TO TOUCH AND IS EDEMATOUS. THERE IS NORMAL RANGE OF MOTION TO ALL EXTREMITIES. HIS VITALS THIS MORNING ARE 99.9-101-24-91%-154/75. TEMERATURE WAS NOTED TO SPIKE AT 103.0 AT MIDNIGHT. LABS WERE OBTAINED. ABNORMAL LAB VALUES INCLUDE THE FOLLOWING: WBC 18.7, RBC 3.19, HGB 7.6, HCT 22.1 , SODIUM 127, CHLORIDE 93, CARBON DIOXIDE 17.7, GLUCOSE 296, CALCIUM 7.4, AST 13 , TOTAL PROTEIN 6.2, ALBUMIN 1.9. WE OBTAINED AN ABD/PELVIS CT YESTERDAY. IT REPORTED DILATION OF THE APPENDIX WITH RIGHT LOWE QUADRANT INFLAMMATORY CHANGE CONSISTENT TO ACUTE APPENDICITIS. IT ALSO REVEALED PATCHY AREAS OF GROUND GLASS OPACITY WITHIN THE RIGHT LOWE LOBE LIKELY REPRESENTING DEVELOPING PNEUMONIA. WE ORDERED A SURGICAL CONSULT FOR APPENDECTOMY. WE WILL START PATIENT ON THE PNEUMONIA PROTOCOL. OTHERWISE, WE WILL CONTINUE TO MONITOR PATIENT TODAY AND FOLLOW UP WITH AM LABS. - Past Medical Family Social History Past Med/Fam/Surg Hx: No changes since H&P Allergies: Allergies codeine Allergy (Verified 07/30/17 02:52) morphine Allergy (Verified 07/30/17 02:52) - Review of Systems ROS: No change since H&P - Vital Signs and I&O's Vital Signs: Temperature 98.0 F Pulse Rate [Right Brachial] 115 Pulse Rate 108 Respiratory Rate 23 Blood Pressure [Right Arm] 100/50 Blood Pressure [Left Arm] 164/88 Blood Pressure [Left Radial 160/102 Artery] Blood Pressure 137/70 O2 Sat by Pulse Oximetry 88 Intake and Output: Intake & Output 08/08/17 08/09/17 08/10/17 08/11/17 11:59 11:59 11:59 11:59 Intake Total 0640 6025 5575 3815 Output Total 8100 2405 3800 950 Balance 25 1931 7071 0885 - Physical Exam Oriented: Normal Eyes: Normal Ear: Normal Nose: Normal Throat: Normal Respiratory: Diminished Cardiovascular: Tachycardia. negative: S3, S4, Murmur : Normal Auscultation: Bowel Sounds: Normal Palpation: Normal Tenderness: RLQ Skin: Normal Musculoskeletal: Left, Elbow, Swelling, Tender Psychiatric: Normal Mood Description: Calm Affect: Normal Speech Pattern: Clear, Appropriate - Laboratory and Diagnostics Result Diagrams: 08/10/17 05:45 08/10/17 05:45 Labs: 08/04/17 21:04 Urine,Clean Catch Urine Culture - Final Staphylococcus Aureus 08/04/17 17:00 Blood Blood Culture - Final Klebsiella Pneumoniae 08/04/17 16:55 Blood Blood Culture - Final Klebsiella Pneumoniae Laboratory WBC 12.7 X10^3/uL (3.6-10.0) H 08/10/17 05:45 RBC 3.40 X10^6/uL (4.7-6.0) L 08/10/17 05:45 Hgb 8.5 g/dL (13.5-18.0) L 08/10/17 05:45 Hct 24.9 % (42.0-54.0) L 08/10/17 05:45 MCV 73.3 fL (80.0-100.0) L 08/10/17 05:45 MCH 25.1 pg (27.0-34.0) L 08/10/17 05:45 MCHC 34.3 g/dL (33.0-35.0) 08/10/17 05:45 RDW 21.0 % (11.6-16.5) H 08/10/17 05:45 Plt Count 468 X10^3/uL (150.0-450.0) H 08/10/17 05:45 Plt Count Comment Adequate (ADEQUATE) 08/10/17 05:45 MPV 8.0 fL (7.4-11.0) 08/10/17 05:45 Neut % 81.2 % (42.0-75.0) H 08/10/17 05:45 Lymph % 8.1 % (21.0-51.0) L 08/10/17 05:45 [place] % 10.0 % (0.0-13.0) 08/10/17 05:45 Eos % 0.4 % (0.9-2.9) L 08/10/17 05:45 Baso % 0.3 % (0.2-1.0) 08/10/17 05:45 Neut # 10.3 x10^3/uL (2.2-4.8) H 08/10/17 05:45 Lymph # 1.0 X10^3/uL (1.3-2.9) L 08/10/17 05:45 [place] # 1.3 x10^3/uL (0.3-0.8) H 08/10/17 05:45 Eos # 0.1 x10^3/uL (0.0-0.2) 08/10/17 05:45 Baso # 0.0 X10^3/uL (0.0-0.1) 08/10/17 05:45 Absolute Nucleated RBC 0.1 /100WBC 08/10/17 05:45 Total Counted 100 08/06/17 05:52 Neutrophils % (Manual) 88 % (39-76) H 08/06/17 05:52 Band Neutrophils % 5 % (0-10) 08/06/17 05:52 Lymphocytes % (Manual) 4 % (13-43) L 08/06/17 05:52 Monocytes % (Manual) 3 % (4-9) L 08/06/17 05:52 Giant Platelets Few 08/09/17 05:20 Plt Morphology Comment Normal (NORMAL) 08/10/17 05:45 RBC Morphology Normal (NORMAL) 08/10/17 05:45 Hypochromasia 1+ A 08/09/17 05:20 Anisocytosis 1+ A 08/10/17 05:45 Microcytosis 1+ A 08/07/17 06:40 Ovalocytes 1+ A 08/10/17 05:45 ESR 91 MM/HOUR (0-15) H 08/05/17 05:55 Sample Site Lr 08/05/17 08:16 ABG pH 7.390 (7.35-7.45) 08/05/17 08:16 ABG pCO2 27.0 mmHg (35.0-45.0) L 08/05/17 08:16 ABG pO2 96.0 mmHg (80.0-100.0) 08/05/17 08:16 ABG HCO3 16.3 mmol/L (22-26) L* 08/05/17 08:16 ABG O2 Saturation 97.0 % (90-100) 08/05/17 08:16 ABG Base Excess -7.2 mmol/L (-2.0-2.0) L 08/05/17 08:16 Wang Test Pos 08/05/17 08:16 A-a Gradient 20.0 mmHg 08/05/17 08:16 FiO2 21.000 08/05/17 08:16 Blood Gas Comments Pt isabel well. cdn 08/05/17 08:16 Sodium 132 mmol/L (136-145) L 08/10/17 05:45 Corrected Sodium 138 mmol/L (136-145) 08/10/17 05:45 Potassium 3.1 mmol/L (3.5-5.1) L 08/10/17 05:45 Chloride 98 mmol/L (98-107) 08/10/17 05:45 Carbon Dioxide 25.4 mmol/L (21-32) 08/10/17 05:45 BUN 8 mg/dL (7-18) 08/10/17 05:45 Creatinine 0.70 mg/dL (0.70-1.30) 08/10/17 05:45 Est GFR (MDRD) Af Amer > 60 (>60) 08/10/17 05:45 Est GFR (MDRD) Non-Af > 60 (>60) 08/10/17 05:45 Glucose 341 mg/dL (65-99) H 08/10/17 05:45 POC Glucose (mg/dL) 325 mg/dL (65-99) H 08/10/17 22:09 Lactic Acid 1.1 mmol/L (0.4-2.0) 08/07/17 19:27 Uric Acid 4.5 mg/dL (3.5-7.2) 08/05/17 05:55 Calcium 6.6 mg/dL (8.5-10.1) L 08/10/17 05:45 Corrected Calcium 8.3 mg/dL (8.5-10.1) L 08/10/17 05:45 Magnesium 1.7 mg/dL (1.7-2.9) 08/08/17 09:15 Total Bilirubin 0.60 mg/dL (0.2-1.0) 08/10/17 05:45 AST 9 Units/L (15-37) L 08/10/17 05:45 ALT 12 Units/L (12-78) 08/10/17 05:45 Alkaline Phosphatase 76 Units/L (46-116) 08/10/17 05:45 C-Reactive Protein 234.60 mg/L (0-3.0) H 08/05/17 05:55 Total Protein 5.7 g/dL (6.4-8.2) L 08/10/17 05:45 Albumin 1.9 g/dL (3.4-5.0) L 08/10/17 05:45 Globulin 3.8 g/dL (2.5-4.5) 08/10/17 05:45 Albumin/Globulin Ratio 0.5 Ratio (1.1-2.1) L 08/10/17 05:45 Specimen Type Clean catch urine 08/04/17 21:04 Urine Color Yellow (YELLOW) 08/04/17 21:04 Urine Appearance Slightly hazy (CLEAR) 08/04/17 21:04 Urine pH 5.0 (5.0 - 8.0) 08/04/17 21:04 Ur Specific [place] 1.010 (1.000-1.030) 08/04/17 21:04 Urine Protein 2+ (NEGATIVE) 08/04/17 21:04 Urine Glucose (UA) 4+ (NEGATIVE) 08/04/17 21:04 Urine Ketones 4+ (NEGATIVE) 08/04/17 21:04 Urine Occult Blood 4+ (NEGATIVE) 08/04/17 21:04 Urine Nitrite Negative (NEGATIVE) 08/04/17 21:04 Urine Bilirubin Negative (NEGATIVE) 08/04/17 21:04 Urine Urobilinogen Normal (NORMAL) 08/04/17 21:04 Ur Leukocyte Esterase Negative (NEGATIVE) 08/04/17 21:04 Urine RBC 1-5 /HPF (NONE SEEN) 08/04/17 21:04 Urine WBC 0-4 /HPF (NONE SEEN) 08/04/17 21:04 Ur Squamous Epith Cells Rare /HPF (NEGATIVE) 08/04/17 21:04 Urine Bacteria Trace /HPF (NEGATIVE) 08/04/17 21:04 Urine Mucus Few /HPF (NEGATIVE) 08/04/17 21:04 Ur Culture Indicated? Yes/culture set up 08/04/17 21:04 Vancomycin Trough 12.8 ug/mL (15-20) L 08/09/17 21:10 Influenza Type A (PCR) Negative (NEGATIVE) 08/04/17 16:31 Influenza Type B (PCR) Negative (NEGATIVE) 08/04/17 16:31 S. pyogenes (TEM-PCR) Not detected (NOT DETECT) 08/04/17 16:31 Tissue Pathology To follow 08/07/17 10:24 Blood Type O POSITIVE 08/07/17 09:03 Antibody Screen Negative 08/07/17 09:03 Crossmatch See Detail 08/07/17 09:03 - Plan (1) Acute appendicitis Status: Acute Qualifiers: Acute appendicitis type: unspecified acute appendicitis type Qualified Code (s): K35.80 - Unspecified acute appendicitis Plan: SURGICAL CONSULT FOR APPENDECTOMY, CONTINUE TO MONITOR (2) Pneumonia Status: Acute Qualifiers: Pneumonia type: due to Klebsiella pneumoniae Laterality: right Lung location: lower lobe of lung Qualified Code(s): J15.0 - Pneumonia due to Klebsiella pneumoniae Plan: CONTINUE VANCOMYCIN, CONTINUE ZOSYN, CONTINUE RESPIRATORY TX AND SUPPLEMENTAL OXYGEN, CONTINUE TO MONITOR (3) Septic arthritis of elbow, left Status: Acute Qualifiers: Septic arthritis organism: due to unspecified organism Qualified Code(s): M00.9 - Pyogenic arthritis, unspecified Plan: CONTINUE VANCOMYCIN, CONTINUE ZOSYN, CONTINUE TO MONITOR (4) Generalized weakness Status: Acute Plan: NORMAL SALINE AT 150ML/HR WITH 1 AMP BICARB TO EACH LITER OF IVF, CONTINUE TO MONITOR (5) Body aches Status: Acute Plan: TAMIFLU, CONTINUE TO MONITOR (6) History of anemia Status: Chronic Plan: CONTINUE TO MONITOR LABS (7) Hypertension Status: Chronic Qualifiers: Hypertension type: essential hypertension Plan: CATAPRES PATCH, COZAAR, CONTINUE TO MONITOR (8) Diabetes mellitus type 1 Status: Chronic Qualifiers: Diabetes mellitus complication status: without complication Qualified Code( s): E10.9 - Type 1 diabetes mellitus without complications Plan: CONTINUE TOUJEO, CONTINUE HUMALOG, CONTIUE TO MONITOR OTBS
[2017-08-11 06:18] LABS: ALANINE AMINOTRANSFERASE 16 Units/L (12-78); ALBUMIN 2.2 g/dL (3.4-5.0); ALKALINE PHOSPHATASE 101 Units/L (46-116); ASPARTATE AMINO TRANSFERASE 18 Units/L (15-37); BLOOD UREA NITROGEN 12 mg/dL (7-18); CALCIUM 7.5 mg/dL (8.5-10.1); CHLORIDE 96 mmol/L (98-107); COR CA(FOR HYPOALB) 8.9 mg/dL (8.5-10.1); COR NA(FOR HYPERGLY) 137 mmol/L (136-145); CREATININE 0.83 mg/dL (0.70-1.30); SODIUM 130 mmol/L (136-145); TOTAL PROTEIN 6.5 g/dL (6.4-8.2); eGFR BLACK RACES > 60 (>60); eGFR NON BLACK RACES > 60 (>60)
[2017-08-11 06:19] LABS: BASOPHILS % (AUTO) 0.4 % (0.2-1.0); EOSINOPHILS # (AUTO) 0.1 x10^3/uL (0.0-0.2); EOSINOPHILS % (AUTO) 0.5 % (0.9-2.9); HEMATOCRIT 25.6 % (42.0-54.0); HEMOGLOBIN 8.8 g/dL (13.5-18.0); LYMPHOCYTES # (AUTO) 1.1 X10^3/uL (1.3-2.9); MEAN CORPUSCULAR HEMOGLOBIN 25.5 pg (27.0-34.0); MEAN CORPUSCULAR HGB CONC 34.4 g/dL (33.0-35.0); MEAN CORPUSCULAR VOLUME 74.3 fL (80.0-100.0); MEAN PLATELET VOLUME 7.4 fL (7.4-11.0); MONOCYTES # (AUTO) 1.1 x10^3/uL (0.3-0.8); NEUTROPHILS # (AUTO) 9.8 x10^3/uL (2.2-4.8); NEUTROPHILS % (AUTO) 81.1 % (42.0-75.0); PLATELET COUNT 551 X10^3/uL (150.0-450.0); RED BLOOD COUNT 3.44 X10^6/uL (4.7-6.0); RED CELL DISTRIBUTION WIDTH 21.1 % (11.6-16.5); WHITE BLOOD COUNT 12.1 X10^3/uL (3.6-10.0)
[2017-08-11 06:25] LABS: VANCOMYCIN,TROUGH 13.9 ug/mL (15-20)
[2017-08-11] MEDS: VANCOMYCIN HCL 1 GM VIAL 1 GM in NS 250 ML IV 250 ML IV SCH ×3 (06:40→22:02)
[2017-08-11] MEDS: HumaLOG SC SCH ×3 (06:42→15:53)
[2017-08-11 06:59] LABS: HYPOCHROMASIA SLIGHT; PLATELET MORPHOLOGY COMMENT NORMAL (NORMAL)
[2017-08-11 07:00] LABS: ANISOCYTOSIS 1+
[2017-08-11] MEDS: D5 1/2 NS 1000 ML 1,000 ML IV SCH (07:09)
--- NOTE | 2017-08-11 07:39 | RAD ---
HISTORY: Fever, pneumonia Study: Chest AP portable Comparison: 08/10/2017 Findings: There is a port present on the right. The patient is rotated to the left. The heart is within normal limits in size. Right lower lobe infiltrate has increased when compared with the prior examination. T his is superimposed on more chronic interstitial lung changes which are present bilaterally. A a patc hy right upper lobe infiltrate remains unchanged. There are some patchy areas of alveolar lung diseas e on the left. These findings most likely represent multifocal bronchopneumonia. No definite pleural effusions are identified. IMPRESSION: Findings consistent with multifocal pneumonia slightly increased in the right lung base and unchanged elsewhere Reported By:
[2017-08-11] MEDS: DUONEB 0.5 MG/3 MG NEB SCH ×4 (09:42→20:22)
[2017-08-11] MEDS: ALBUMIN HUMAN 25%- 100ML 100 ML IV SCH (09:44)
[2017-08-11] MEDS: NS 1000 ML 1,000 ML IV SCH ×2 (09:44→23:23)
[2017-08-11] MEDS: TAMIFLU PO SCH ×2 (09:45→20:37)
[2017-08-11] MEDS: K-DUR TAB 20 MEQ PO SCH ×2 (09:46→20:37)
[2017-08-11] MEDS: PEPCID TAB 20 MG PO SCH ×2 (09:46→20:38)
[2017-08-11] MEDS: PROTONIX TAB 40 MG PO SCH ×2 (09:46→20:37)
[2017-08-11] MEDS: COZAAR PO SCH (09:46)
[2017-08-11 10:40] LABS: ABG BASE EXCESS 3.5 mmol/L (-2.0-2.0); ABG HCO3 26.7 mmol/L (22-26)
[2017-08-11 10:41] LABS: ABG ALLEN TEST POS
[2017-08-11] MEDS: ROBITUSSIN DM PO PRN (12:03)
--- NOTE | 2017-08-11 12:29 | PCM.PROG ---
Progress Note - Progress Note for Day of Date: 08/08/17 - Subjective Subjective: IS STATUS POST APPENDECTOMY AND IS ALSO BEING TREATED FOR PNEUMONIA. TODAY, HE IS ALERT AND ORIENTED, LYING IN BED ON MORNING ROUNDS. HE CONTINUES WITH COMPLAINTS OF GENERALIZED BODY ACHES, ABDOMINAL PAIN, AND LEFT ELBOW PAIN. HE ALSO REPORTS SHORTNESS OF BREATH. ON EXAMINATION, BILATERAL LUNGS ARE NOTED WITH RHONCHI AND WHEEZING THROUGHOUT. HE IS CURRENTLY UTILIZING OXYGEN VIA NASAL CANNULA AT 2L/MIN. ABDOMEN IS ROUND, SOFT, AND NOTED WITH DIFFUSE TENDERNESS TO PALPATION. NORMAL BOWEL SOUNDS NOTED IN ALL QUADRANTS. SURGICAL DRESSINGS NOTED TO ABDOMEN WITH NO DRAINAGE NOTED. LEFT ELBOW CONTINUES TO BE WARM TO TOUCH AND IS EDEMATOUS. THERE IS NORMAL RANGE OF MOTION TO ALL EXTREMITIES. HIS VITALS THIS MORNING ARE 97.2-73-22-100%-141/79. HE HAS BEEN AFEBRILE THROUGHOUT THE NIGHT. PATIENTS HEMOGLOBIN FELL THROUGHOUT THE NIGHT AND HE WAS TRANSUFED WITH TWO UNITS OF PACKED RED BLOOD CELLS. LABS WERE OBTAINED. ABNORMAL LAB VALUES INCLUDE THE FOLLOWING: WBC 15.9, 3.86, HGB 9.6, HCT 28.1, SODIUM 135, POTASSIUM 2.9, BUN 4, GLUCOSE 139, CALCIUM 7.4, AST 14, ALBUMIN 2.4. A CHEST XRAY WAS OBTAINED THIS MORNING AND REPORTED INTERVAL DEVELOPMENT OF A RIGHT LOWER LOBE INFILTRATE. TODAY, WE WILL CONTINUE TO MONITOR H&H Q4H. OTHERWISE, WE WILL CONTINUE WITH IV ANTIBIOTICS AND CURRENT PLAN OF CARE. WE PLAN TO FOLLOW UP WITH AM LABS AND CONTINUE TO MONITOR PATIENT. - Past Medical Family Social History Past Med/Fam/Surg Hx: No changes since H&P Allergies: Allergies codeine Allergy (Verified 07/30/17 02:52) morphine Allergy (Verified 07/30/17 02:52) - Review of Systems ROS: No change since H&P - Vital Signs and I&O's Vital Signs: Temperature 98.3 F Pulse Rate [Right Brachial] 118 Pulse Rate 108 Respiratory Rate 20 Blood Pressure [Right Arm] 181/98 Blood Pressure [Left Arm] 164/88 Blood Pressure [Left Radial 160/102 Artery] Blood Pressure 137/70 O2 Sat by Pulse Oximetry 94 Intake and Output: Intake & Output 08/09/17 08/10/17 08/11/17 08/12/17 11:59 11:59 11:59 11:59 Intake Total 6031 5575 5840 Output Total 1775 3800 3600 Balance 1931 1775 2240 - Physical Exam Oriented: Normal Eyes: Normal Ear: Normal Nose: Normal Throat: Normal Respiratory: Diminished Cardiovascular: Tachycardia. negative: S3, S4, Murmur : Normal Auscultation: Bowel Sounds: Normal Palpation: Normal Tenderness: RLQ Skin: Normal Musculoskeletal: Left, Elbow, Swelling, Tender Psychiatric: Normal Mood Description: Calm Affect: Normal Speech Pattern: Clear, Appropriate - Laboratory and Diagnostics Result Diagrams: 08/11/17 05:48 08/11/17 05:48 Labs: 08/04/17 21:04 Urine,Clean Catch Urine Culture - Final Staphylococcus Aureus 08/04/17 17:00 Blood Blood Culture - Final Klebsiella Pneumoniae 08/04/17 16:55 Blood Blood Culture - Final Klebsiella Pneumoniae Laboratory WBC 12.1 X10^3/uL (3.6-10.0) H 08/11/17 05:48 RBC 3.44 X10^6/uL (4.7-6.0) L 08/11/17 05:48 Hgb 8.8 g/dL (13.5-18.0) L 08/11/17 05:48 Hct 25.6 % (42.0-54.0) L 08/11/17 05:48 MCV 74.3 fL (80.0-100.0) L 08/11/17 05:48 MCH 25.5 pg (27.0-34.0) L 08/11/17 05:48 MCHC 34.4 g/dL (33.0-35.0) 08/11/17 05:48 RDW 21.1 % (11.6-16.5) H 08/11/17 05:48 Plt Count 551 X10^3/uL (150.0-450.0) H 08/11/17 05:48 Plt Count Comment Adequate (ADEQUATE) 08/11/17 05:48 MPV 7.4 fL (7.4-11.0) 08/11/17 05:48 Neut % 81.1 % (42.0-75.0) H 08/11/17 05:48 Lymph % 9.0 % (21.0-51.0) L 08/11/17 05:48 [place] % 9.0 % (0.0-13.0) 08/11/17 05:48 Eos % 0.5 % (0.9-2.9) L 08/11/17 05:48 Baso % 0.4 % (0.2-1.0) 08/11/17 05:48 Neut # 9.8 x10^3/uL (2.2-4.8) H 08/11/17 05:48 Lymph # 1.1 X10^3/uL (1.3-2.9) L 08/11/17 05:48 Ralls # 1.1 x10^3/uL (0.3-0.8) H 08/11/17 05:48 Eos # 0.1 x10^3/uL (0.0-0.2) 08/11/17 05:48 Baso # 0.0 X10^3/uL (0.0-0.1) 08/11/17 05:48 Absolute Nucleated RBC 0.0 /100WBC 08/11/17 05:48 Total Counted 100 08/06/17 05:52 Neutrophils % (Manual) 88 % (39-76) H 08/06/17 05:52 Band Neutrophils % 5 % (0-10) 08/06/17 05:52 Lymphocytes % (Manual) 4 % (13-43) L 08/06/17 05:52 Monocytes % (Manual) 3 % (4-9) L 08/06/17 05:52 Giant Platelets Few 08/09/17 05:20 Plt Morphology Comment Normal (NORMAL) 08/11/17 05:48 RBC Morphology Abnormal (NORMAL) 08/11/17 05:48 Hypochromasia Slight A 08/11/17 05:48 Anisocytosis 1+ A 08/11/17 05:48 Microcytosis 1+ A 08/07/17 06:40 Ovalocytes 1+ A 08/10/17 05:45 ESR 91 MM/HOUR (0-15) H 08/05/17 05:55 Sample Site Lr 08/11/17 10:35 ABG pH 7.490 (7.35-7.45) H 08/11/17 10:35 ABG pCO2 35.0 mmHg (35.0-45.0) 08/11/17 10:35 ABG pO2 44.0 mmHg (80.0-100.0) L* 08/11/17 10:35 ABG HCO3 26.7 mmol/L (22-26) H 08/11/17 10:35 ABG O2 Saturation 84.0 % (90-100) L* 08/11/17 10:35 ABG Base Excess 3.5 mmol/L (-2.0-2.0) H 08/11/17 10:35 Wang Test Pos 08/11/17 10:35 A-a Gradient 62.0 mmHg 08/11/17 10:35 FiO2 21.000 08/11/17 10:35 Blood Gas Comments Pt isabel well. cdn 08/11/17 10:35 Sodium 130 mmol/L (136-145) L 08/11/17 05:48 Corrected Sodium 137 mmol/L (136-145) 08/11/17 05:48 Potassium 3.8 mmol/L (3.5-5.1) 08/11/17 05:48 Chloride 96 mmol/L (98-107) L 08/11/17 05:48 Carbon Dioxide 25.0 mmol/L (21-32) 08/11/17 05:48 BUN 12 mg/dL (7-18) 08/11/17 05:48 Creatinine 0.83 mg/dL (0.70-1.30) 08/11/17 05:48 Est GFR (MDRD) Af Amer > 60 (>60) 08/11/17 05:48 Est GFR (MDRD) Non-Af > 60 (>60) 08/11/17 05:48 Glucose 402 mg/dL (65-99) H 08/11/17 05:48 POC Glucose (mg/dL) 114 mg/dL (65-99) H 08/11/17 11:38 Lactic Acid 1.1 mmol/L (0.4-2.0) 08/07/17 19:27 Uric Acid 4.5 mg/dL (3.5-7.2) 08/05/17 05:55 Calcium 7.5 mg/dL (8.5-10.1) L 08/11/17 05:48 Corrected Calcium 8.9 mg/dL (8.5-10.1) 08/11/17 05:48 Magnesium 1.7 mg/dL (1.7-2.9) 08/08/17 09:15 Total Bilirubin 0.50 mg/dL (0.2-1.0) 08/11/17 05:48 AST 18 Units/L (15-37) 08/11/17 05:48 ALT 16 Units/L (12-78) 08/11/17 05:48 Alkaline Phosphatase 101 Units/L (46-116) 08/11/17 05:48 C-Reactive Protein 234.60 mg/L (0-3.0) H 08/05/17 05:55 Total Protein 6.5 g/dL (6.4-8.2) 08/11/17 05:48 Albumin 2.2 g/dL (3.4-5.0) L 08/11/17 05:48 Globulin 4.3 g/dL (2.5-4.5) 08/11/17 05:48 Albumin/Globulin Ratio 0.5 Ratio (1.1-2.1) L 08/11/17 05:48 Carcinoembryonic Ag 2.6 ng/mL (0.0-3.0) 08/08/17 09:15 Specimen Type Clean catch urine 08/04/17 21:04 Urine Color Yellow (YELLOW) 08/04/17 21:04 Urine Appearance Slightly hazy (CLEAR) 08/04/17 21:04 Urine pH 5.0 (5.0 - 8.0) 08/04/17 21:04 Ur Specific [place] 1.010 (1.000-1.030) 08/04/17 21:04 Urine Protein 2+ (NEGATIVE) 08/04/17 21:04 Urine Glucose (UA) 4+ (NEGATIVE) 08/04/17 21:04 Urine Ketones 4+ (NEGATIVE) 08/04/17 21:04 Urine Occult Blood 4+ (NEGATIVE) 08/04/17 21:04 Urine Nitrite Negative (NEGATIVE) 08/04/17 21:04 Urine Bilirubin Negative (NEGATIVE) 08/04/17 21:04 Urine Urobilinogen Normal (NORMAL) 08/04/17 21:04 Ur Leukocyte Esterase Negative (NEGATIVE) 08/04/17 21:04 Urine RBC 1-5 /HPF (NONE SEEN) 08/04/17 21:04 Urine WBC 0-4 /HPF (NONE SEEN) 08/04/17 21:04 Ur Squamous Epith Cells Rare /HPF (NEGATIVE) 08/04/17 21:04 Urine Bacteria Trace /HPF (NEGATIVE) 08/04/17 21:04 Urine Mucus Few /HPF (NEGATIVE) 08/04/17 21:04 Ur Culture Indicated? Yes/culture set up 08/04/17 21:04 Vancomycin Trough 13.9 ug/mL (15-20) L 08/11/17 05:48 Influenza Type A (PCR) Negative (NEGATIVE) 08/04/17 16:31 Influenza Type B (PCR) Negative (NEGATIVE) 08/04/17 16:31 S. pyogenes (TEM-PCR) Not detected (NOT DETECT) 08/04/17 16:31 Tissue Pathology To follow 08/07/17 10:24 Blood Type O POSITIVE 08/07/17 09:03 Antibody Screen Negative 08/07/17 09:03 Crossmatch See Detail 08/07/17 09:03 - Plan (1) Acute appendicitis Status: Acute Qualifiers: Acute appendicitis type: unspecified acute appendicitis type Qualified Code (s): K35.80 - Unspecified acute appendicitis Plan: SURGICAL CONSULT FOR APPENDECTOMY, CONTINUE TO MONITOR (2) Pneumonia Status: Acute Qualifiers: Pneumonia type: due to Klebsiella pneumoniae Laterality: right Lung location: lower lobe of lung Qualified Code(s): J15.0 - Pneumonia due to Klebsiella pneumoniae Plan: CONTINUE VANCOMYCIN, CONTINUE ZOSYN, CONTINUE RESPIRATORY TX AND SUPPLEMENTAL OXYGEN, CONTINUE TO MONITOR (3) Anemia Status: Acute Qualifiers: Anemia type: iron deficiency Iron deficiency anemia type: chronic blood loss Qualified Code(s): D50.0 - Iron deficiency anemia secondary to blood loss (chronic) Plan: TRANSFUSED TWO UNITS OF PACKED RED BLOOD CELLS THROUGHOUT THE NIGHT, MONITOR H&H Q4H, CONTINUE TO MONITOR (4) Septic arthritis of elbow, left Status: Acute Qualifiers: Septic arthritis organism: due to unspecified organism Qualified Code(s): M00.9 - Pyogenic arthritis, unspecified Plan: CONTINUE VANCOMYCIN, CONTINUE ZOSYN, CONTINUE TO MONITOR (5) Generalized weakness Status: Acute Plan: NORMAL SALINE AT 150ML/HR WITH 1 AMP BICARB TO EACH LITER OF IVF, CONTINUE TO MONITOR (6) Body aches Status: Acute Plan: TAMIFLU, CONTINUE TO MONITOR (7) History of anemia Status: Chronic Plan: CONTINUE TO MONITOR LABS (8) Hypertension Status: Chronic Qualifiers: Hypertension type: essential hypertension Plan: CATAPRES PATCH, COZAAR, CONTINUE TO MONITOR (9) Diabetes mellitus type 1 Status: Chronic Qualifiers: Diabetes mellitus complication status: without complication Qualified Code( s): E10.9 - Type 1 diabetes mellitus without complications Plan: CONTINUE TOUJEO, CONTINUE HUMALOG, CONTIUE TO MONITOR OTBS
[2017-08-11] MEDS: TORADOL 30 MG VIAL IVP SCH ×2 (13:22→18:10)
[2017-08-11] MEDS: MILK OF MAGNESIA PO SCH (20:37)
[2017-08-11] MEDS: KLONOPIN TAB 1 MG PO PRN (20:38)
[2017-08-11] MEDS: COLACE CAP 100 MG PO SCH (20:38)
[2017-08-11] MEDS: TOUJEO SOLOSTAR PEN SC SCH (20:46)
--- NOTE | 2017-08-11 21:05 | DR.PROGNOT ---
Hospital Progress Notes - Progress Note for Day of: Progress Note Date: 08/11/17 - Chief Complaint Chief Complaint: PO Lap Appendectomy day. doing well , alert and more cheerful today . afebrile . appetite is getting better but feels full ,.. no vomiting. c/o Lt elbow pain . mild SOB and coughing . no BM but passing flatus. moderate leukocytosis - Past Medical Family Social History Past Med/Fam/Surg Hx: No changes since H&P Allergies: Allergies codeine Allergy (Verified 07/30/17 02:52) morphine Allergy (Verified 07/30/17 02:52) - Review Of Systems ROS: No change since H&P - Vital Signs Vital Signs: Temperature 99.0 F Pulse Rate [Right Brachial] 116 Pulse Rate 106 Respiratory Rate 24 Blood Pressure [Right Arm] 175/92 Blood Pressure [Left Arm] 164/88 Blood Pressure [Left Radial 160/102 Artery] Blood Pressure 137/70 O2 Sat by Pulse Oximetry 96 - Physical Exam Oriented: Normal Eyes: Normal Ear: Normal Nose: Normal Throat: Normal Respiratory: Rhonchi (bilateral rhonchi) Cardiovascular: Tachycardia. negative: S3, S4, Murmur : Normal GI:Auscultation: Normal GI:Palpation: Normal GI: Tenderness: RLQ, LLQ (full abdomen , normal BS) Skin: Normal Musculoskeletal: Left, Elbow, Swelling, Tender Psychiatric: Normal Mood Description: Calm Affect: Normal Speech Pattern: Clear, Appropriate - Laboratory and Diagnostics Result Diagrams: 08/11/17 05:48 08/11/17 05:48 Labs: 08/04/17 21:04 Urine,Clean Catch Urine Culture - Final Staphylococcus Aureus 08/04/17 17:00 Blood Blood Culture - Final Klebsiella Pneumoniae 08/04/17 16:55 Blood Blood Culture - Final Klebsiella Pneumoniae Laboratory WBC 12.1 X10^3/uL (3.6-10.0) H 08/11/17 05:48 RBC 3.44 X10^6/uL (4.7-6.0) L 08/11/17 05:48 Hgb 8.8 g/dL (13.5-18.0) L 08/11/17 05:48 Hct 25.6 % (42.0-54.0) L 08/11/17 05:48 MCV 74.3 fL (80.0-100.0) L 08/11/17 05:48 MCH 25.5 pg (27.0-34.0) L 08/11/17 05:48 MCHC 34.4 g/dL (33.0-35.0) 08/11/17 05:48 RDW 21.1 % (11.6-16.5) H 08/11/17 05:48 Plt Count 551 X10^3/uL (150.0-450.0) H 08/11/17 05:48 Plt Count Comment Adequate (ADEQUATE) 08/11/17 05:48 MPV 7.4 fL (7.4-11.0) 08/11/17 05:48 Neut % 81.1 % (42.0-75.0) H 08/11/17 05:48 Lymph % 9.0 % (21.0-51.0) L 08/11/17 05:48 [place] % 9.0 % (0.0-13.0) 08/11/17 05:48 Eos % 0.5 % (0.9-2.9) L 08/11/17 05:48 Baso % 0.4 % (0.2-1.0) 08/11/17 05:48 Neut # 9.8 x10^3/uL (2.2-4.8) H 08/11/17 05:48 Lymph # 1.1 X10^3/uL (1.3-2.9) L 08/11/17 05:48 [place] # 1.1 x10^3/uL (0.3-0.8) H 08/11/17 05:48 Eos # 0.1 x10^3/uL (0.0-0.2) 08/11/17 05:48 Baso # 0.0 X10^3/uL (0.0-0.1) 08/11/17 05:48 Absolute Nucleated RBC 0.0 /100WBC 08/11/17 05:48 Total Counted 100 08/06/17 05:52 Neutrophils % (Manual) 88 % (39-76) H 08/06/17 05:52 Band Neutrophils % 5 % (0-10) 08/06/17 05:52 Lymphocytes % (Manual) 4 % (13-43) L 08/06/17 05:52 Monocytes % (Manual) 3 % (4-9) L 08/06/17 05:52 Giant Platelets Few 08/09/17 05:20 Plt Morphology Comment Normal (NORMAL) 08/11/17 05:48 RBC Morphology Abnormal (NORMAL) 08/11/17 05:48 Hypochromasia Slight A 08/11/17 05:48 Anisocytosis 1+ A 08/11/17 05:48 Microcytosis 1+ A 08/07/17 06:40 Ovalocytes 1+ A 08/10/17 05:45 ESR 91 MM/HOUR (0-15) H 08/05/17 05:55 Sample Site Lr 08/11/17 10:35 ABG pH 7.490 (7.35-7.45) H 08/11/17 10:35 ABG pCO2 35.0 mmHg (35.0-45.0) 08/11/17 10:35 ABG pO2 44.0 mmHg (80.0-100.0) L* 08/11/17 10:35 ABG HCO3 26.7 mmol/L (22-26) H 08/11/17 10:35 ABG O2 Saturation 84.0 % (90-100) L* 08/11/17 10:35 ABG Base Excess 3.5 mmol/L (-2.0-2.0) H 08/11/17 10:35 Wang Test Pos 08/11/17 10:35 A-a Gradient 62.0 mmHg 08/11/17 10:35 FiO2 21.000 08/11/17 10:35 Blood Gas Comments Pt isabel well. cdn 08/11/17 10:35 Sodium 130 mmol/L (136-145) L 08/11/17 05:48 Corrected Sodium 137 mmol/L (136-145) 08/11/17 05:48 Potassium 3.8 mmol/L (3.5-5.1) 08/11/17 05:48 Chloride 96 mmol/L (98-107) L 08/11/17 05:48 Carbon Dioxide 25.0 mmol/L (21-32) 08/11/17 05:48 BUN 12 mg/dL (7-18) 08/11/17 05:48 Creatinine 0.83 mg/dL (0.70-1.30) 08/11/17 05:48 Est GFR (MDRD) Af Amer > 60 (>60) 08/11/17 05:48 Est GFR (MDRD) Non-Af > 60 (>60) 08/11/17 05:48 Glucose 402 mg/dL (65-99) H 08/11/17 05:48 POC Glucose (mg/dL) 118 mg/dL (65-99) H 08/11/17 19:35 Lactic Acid 1.1 mmol/L (0.4-2.0) 08/07/17 19:27 Uric Acid 4.5 mg/dL (3.5-7.2) 08/05/17 05:55 Calcium 7.5 mg/dL (8.5-10.1) L 08/11/17 05:48 Corrected Calcium 8.9 mg/dL (8.5-10.1) 08/11/17 05:48 Magnesium 1.7 mg/dL (1.7-2.9) 08/08/17 09:15 Total Bilirubin 0.50 mg/dL (0.2-1.0) 08/11/17 05:48 AST 18 Units/L (15-37) 08/11/17 05:48 ALT 16 Units/L (12-78) 08/11/17 05:48 Alkaline Phosphatase 101 Units/L (46-116) 08/11/17 05:48 C-Reactive Protein 234.60 mg/L (0-3.0) H 08/05/17 05:55 Total Protein 6.5 g/dL (6.4-8.2) 08/11/17 05:48 Albumin 2.2 g/dL (3.4-5.0) L 08/11/17 05:48 Globulin 4.3 g/dL (2.5-4.5) 08/11/17 05:48 Albumin/Globulin Ratio 0.5 Ratio (1.1-2.1) L 08/11/17 05:48 Carcinoembryonic Ag 2.6 ng/mL (0.0-3.0) 08/08/17 09:15 Specimen Type Clean catch urine 08/04/17 21:04 Urine Color Yellow (YELLOW) 08/04/17 21:04 Urine Appearance Slightly hazy (CLEAR) 08/04/17 21:04 Urine pH 5.0 (5.0 - 8.0) 08/04/17 21:04 Ur Specific [place] 1.010 (1.000-1.030) 08/04/17 21:04 Urine Protein 2+ (NEGATIVE) 08/04/17 21:04 Urine Glucose (UA) 4+ (NEGATIVE) 08/04/17 21:04 Urine Ketones 4+ (NEGATIVE) 08/04/17 21:04 Urine Occult Blood 4+ (NEGATIVE) 08/04/17 21:04 Urine Nitrite Negative (NEGATIVE) 08/04/17 21:04 Urine Bilirubin Negative (NEGATIVE) 08/04/17 21:04 Urine Urobilinogen Normal (NORMAL) 08/04/17 21:04 Ur Leukocyte Esterase Negative (NEGATIVE) 08/04/17 21:04 Urine RBC 1-5 /HPF (NONE SEEN) 08/04/17 21:04 Urine WBC 0-4 /HPF (NONE SEEN) 08/04/17 21:04 Ur Squamous Epith Cells Rare /HPF (NEGATIVE) 08/04/17 21:04 Urine Bacteria Trace /HPF (NEGATIVE) 08/04/17 21:04 Urine Mucus Few /HPF (NEGATIVE) 08/04/17 21:04 Ur Culture Indicated? Yes/culture set up 08/04/17 21:04 Vancomycin Trough 13.9 ug/mL (15-20) L 08/11/17 05:48 Influenza Type A (PCR) Negative (NEGATIVE) 08/04/17 16:31 Influenza Type B (PCR) Negative (NEGATIVE) 08/04/17 16:31 S. pyogenes (TEM-PCR) Not detected (NOT DETECT) 08/04/17 16:31 Tissue Pathology To follow 08/07/17 10:24 Blood Type O POSITIVE 08/07/17 09:03 Antibody Screen Negative 08/07/17 09:03 Crossmatch See Detail 08/07/17 09:03 - Assessment and Plan 1: PO appendectomy ,. multi focal pneumonia. anemia . acute bursitis Lt elbow .and maybe infectious arthritis. UTI. positive blood culture with G negative rods. same IV ATB . Hydration and pulmonary care . 2: will advance diet . same IV ATB. will follow in 10 days to remove lan . - Problem Patient Problems: Patient Problems Acute appendicitis (Acute) K35.80 Anemia (Acute) D64.9 Body aches (Acute) R52 Generalized weakness (Acute) R53.1 Pneumonia (Acute) J18.9 Septic arthritis of elbow, left (Acute) M00.9 Fever of unknown origin (FUO) (Resolved) R50.9
--- NOTE | 2017-08-12 00:57 | RAD ---
Chest AP portable Indication: Dyspnea Comparison: 08/11/2017 Findings: There is dense right lower lung opacity and patchy pulmonary opacities with Port-A-Cath tip over the SVC. Heart size is normal for technique. There is no pneumothorax. No large effusion seen. Impression: Bilateral pulmonary opacities worse in right lower lung field. This is most compatible mu ltifocal pneumonia. Follow-up to resolution. Underlying lesion not excluded. Reported By:
[2017-08-12 01:03] LABS: ABG BASE EXCESS 0.9 mmol/L (-2.0-2.0); ABG HCO3 26.6 mmol/L (22-26)
[2017-08-12] MEDS: TORADOL 30 MG VIAL IVP SCH ×4 (01:17→18:23)
[2017-08-12] MEDS: CLINIMIX 5 %/15 % 1,000 ML with MVI INJ (ADULT) 10 ML, TRACE ELEMENTS INJ 10 ML, DRUG F... IV SCH ×8 (01:17→16:57)
[2017-08-12] MEDS ORDERED: ATIVAN INJ 2 MG VIAL ONE (01:38)
[2017-08-12 01:41] LABS: CKMB % 1.8 % (<4); CREATINE KINASE MB 1.7 ng/mL (0-4.0); TROPONIN I 0.03 ng/mL (0-1.5)
[2017-08-12] MEDS: ATIVAN INJ 2 MG VIAL IVP PRN ×5 (01:50→21:14)
[2017-08-12] MEDS ORDERED: NORVASC TAB 5 MG PO ONE (02:46)
[2017-08-12] MEDS: CATAPRES-TTS-3 TD SCH ×2 (02:52→11:00)
[2017-08-12] MEDS ORDERED: NS 100 ML IV + SPIKE MINIBAG* 100 ML IV ONE (04:48)
[2017-08-12] MEDS: VANCOMYCIN HCL 1 GM VIAL 1 GM in NS 250 ML IV 250 ML IV SCH ×2 (05:08→14:17)
[2017-08-12] MEDS: ZOSYN VIAL 3.375 GM 3.375 GM in NS 100 ML IV + SPIKE MINIBAG* 100 ML IV SCH ×3 (06:05→21:40)
[2017-08-12] MEDS: HumaLOG SC SCH ×4 (06:10→15:35)
[2017-08-12 06:12] LABS: BASOPHILS % (AUTO) 0.1 % (0.2-1.0); EOSINOPHILS # (AUTO) 0.1 x10^3/uL (0.0-0.2); EOSINOPHILS % (AUTO) 0.3 % (0.9-2.9); HEMATOCRIT 27.6 % (42.0-54.0); HEMOGLOBIN 9.2 g/dL (13.5-18.0); LYMPHOCYTES # (AUTO) 1.1 X10^3/uL (1.3-2.9); LYMPHOCYTES % (AUTO) 5.9 % (21.0-51.0); MEAN CORPUSCULAR HEMOGLOBIN 24.8 pg (27.0-34.0); MEAN CORPUSCULAR HGB CONC 33.3 g/dL (33.0-35.0); MEAN CORPUSCULAR VOLUME 74.5 fL (80.0-100.0); MEAN PLATELET VOLUME 7.2 fL (7.4-11.0); MONOCYTES # (AUTO) 1.1 x10^3/uL (0.3-0.8); MONOCYTES % (AUTO) 5.7 % (0.0-13.0); NEUTROPHILS # (AUTO) 16.5 x10^3/uL (2.2-4.8); PLATELET COUNT 677 X10^3/uL (150.0-450.0); RED BLOOD COUNT 3.71 X10^6/uL (4.7-6.0); RED CELL DISTRIBUTION WIDTH 21.1 % (11.6-16.5); WHITE BLOOD COUNT 18.8 X10^3/uL (3.6-10.0)
[2017-08-12 06:12] LABS: ABG BASE EXCESS 1.7 mmol/L (-2.0-2.0); ABG HCO3 25.8 mmol/L (22-26)
[2017-08-12 06:29] LABS: ANISOCYTOSIS 1+; PLATELET MORPHOLOGY COMMENT NORMAL (NORMAL)
[2017-08-12 06:30] LABS: ALANINE AMINOTRANSFERASE 32 Units/L (12-78); ALBUMIN 2.4 g/dL (3.4-5.0); ALKALINE PHOSPHATASE 159 Units/L (46-116); ASPARTATE AMINO TRANSFERASE 47 Units/L (15-37); BLOOD UREA NITROGEN 15 mg/dL (7-18); CALCIUM 7.7 mg/dL (8.5-10.1); CHLORIDE 101 mmol/L (98-107); COR NA(FOR HYPERGLY) 138 mmol/L (136-145); CREATININE 1.05 mg/dL (0.70-1.30); SODIUM 135 mmol/L (136-145); eGFR BLACK RACES > 60 (>60); eGFR NON BLACK RACES > 60 (>60)
[2017-08-12] MEDS: ALBUMIN HUMAN 25%- 100ML 100 ML IV SCH (09:33)
[2017-08-12] MEDS: PROTONIX TAB 40 MG PO SCH ×2 (09:34→21:42)
[2017-08-12] MEDS: PEPCID TAB 20 MG PO SCH ×2 (09:34→21:41)
[2017-08-12] MEDS: TAMIFLU PO SCH (09:34)
[2017-08-12] MEDS: K-DUR TAB 20 MEQ PO SCH ×2 (09:34→21:42)
[2017-08-12] MEDS: COZAAR PO SCH (09:34)
[2017-08-12] MEDS: MILK OF MAGNESIA PO SCH ×2 (09:35→21:50)
[2017-08-12] MEDS: DUONEB 0.5 MG/3 MG NEB SCH ×4 (09:39→22:23)
--- NOTE | 2017-08-12 10:23 | CT ---
STUDY: CTA CHEST WITH CONTRAST History: Increasing shortness of breath. Elevated D-dimer to 2870. Comparison: August 12, 2017. Technique: Multiple axial images of the chest were obtained from the thoracic inlet to the upper abdo men after the administration of IV contrast. Image acquisition was optimized for evaluation of pulmon hasmukh arterial system. 3D, coronal and sagittal reformatted images were performed and reviewed. Automat ed exposure control (AEC) was utilized to adjust the MA and/or kV. Findings: There are several abnormal filling defects in pulmonary artery branches to the right lower lobe, prob ably best demonstrated on axial images 60 to 67. There is no evidence of aortic aneurysm or dissectio n. There is no significant pericardial effusion. Shotty lymph nodes, likely reactive, are noted in th e mediastinum. No pathologically enlarged lymph nodes are identified. There are patchy airspace opacities in both upper lobes. There is consolidative airspace opacity in t he dependent portion of the right upper lobe. Airspace opacities with associated air bronchograms are noted in the dependent portion of both lower lobes. There are moderate size bilateral pleural effusi ons. The visualized solid visceral organs in the upper abdomen are otherwise unremarkable. IMPRESSION: 1. Findings concerning for pulmonary thromboembolic disease to peripheral branches in the right lower lobe. 2. Airspace opacities with consolidation throughout both lungs. Clinical correlation for bilateral pn eumonia is recommended. 3. Moderate bilateral pleural effusions. Reported By:
--- NOTE | 2017-08-12 10:32 | VAS ---
HISTORY: Elevated D-dimer Study: Bilateral lower extremity venous Doppler Comparison: None Technique: Multiple grayscale sonographic images were obtained. Color duplex Doppler evaluation was p erformed. Findings: Bilaterally the common femoral vein, superficial femoral vein, popliteal vein, and tibial veins were patent demonstrating normal flow, compression and augmentation. IMPRESSION: Exam negative for deep venous thrombosis bilaterally Reported By:
[2017-08-12] MEDS: NS 1000 ML 1,000 ML IV SCH (13:20)
[2017-08-12] MEDS ORDERED: HEPARIN SODIUM INJ 5000 UNITS IVP ONE ×2 (13:33→21:02)
--- NOTE | 2017-08-12 13:36 | PCM.PROG ---
Progress Note - Progress Note for Day of Date: 08/09/17 - Subjective Subjective: IS STATUS POST APPENDECTOMY AND IS ALSO BEING TREATED FOR PNEUMONIA. TODAY, HE IS ALERT AND ORIENTED, LYING IN BED ON MORNING ROUNDS. HE CONTINUES WITH COMPLAINTS OF GENERALIZED WEAKNESS, LEFT ELBOW AND BILATERAL LEG PAIN, NON-PRODUCTIVE COUGH, SHORTNESS OF BREATH, AND ABDOMINAL PAIN. ON EXAMINATION, BILATERAL LUNGS ARE CONTINUE WITH RHONCHI AND WHEEZING THROUGHOUT. HE IS CURRENTLY UTILIZING OXYGEN VIA NASAL CANNULA AT 2L/MIN. ABDOMEN IS ROUND, SOFT, AND NOTED WITH DIFFUSE TENDERNESS TO PALPATION. NORMAL BOWEL SOUNDS NOTED IN ALL QUADRANTS. SURGICAL DRESSINGS NOTED TO ABDOMEN WITH NO DRAINAGE NOTED. LEFT ELBOW CONTINUES TO BE WARM TO TOUCH AND IS EDEMATOUS. THERE IS NORMAL RANGE OF MOTION TO ALL EXTREMITIES. HIS VITALS THIS MORNING ARE 98.7-95-27-97%- 140/78. HE HAS BEEN AFEBRILE THROUGHOUT THE NIGHT. PATIENTS HEMOGLOBIN FELL THROUGHOUT THE NIGHT AND HE WAS TRANSUFED WITH TWO UNITS OF PACKED RED BLOOD CELLS. LABS WERE OBTAINED. ABNORMAL LAB VALUES INCLUDE THE FOLLOWING: WBC 1537, RBC 3.80, HGB 9.5, HCT 27.6, PLT COUNT 452, SODIUM 131, CHLORIDE 97, BUN 4, GLUCOSE 218, CALCIUM 7.3, AST 12, TOTAL PROTEIN 6.0, ALBUMIN 1.9. TODAY, WE WILL START TPN AND ORDER FOR PT/STAFF TO ASSIST PATIENT OUT OF BED SEVERAL TIMES A DAY. OTHERWISE, WE WILL CONTINUE WITH IV ANTIBIOTICS AND CURRENT PLAN OF CARE. WE PLAN TO FOLLOW UP WITH AM LABS AND CONTINUE TO MONITOR PATIENT. - Past Medical Family Social History Past Med/Fam/Surg Hx: No changes since H&P Allergies: Allergies codeine Allergy (Verified 07/30/17 02:52) morphine Allergy (Verified 07/30/17 02:52) - Review of Systems ROS: No change since H&P - Vital Signs and I&O's Vital Signs: Temperature 98.0 F Pulse Rate [Right Brachial] 145 Pulse Rate 143 Respiratory Rate 35 Blood Pressure [Right Arm] 194/101 Blood Pressure [Left Arm] 164/88 Blood Pressure [Left Radial 160/102 Artery] Blood Pressure 137/70 O2 Sat by Pulse Oximetry 95 Intake and Output: Intake & Output 08/10/17 08/11/17 08/12/17 08/13/17 11:59 11:59 11:59 11:59 Intake Total 5575 5840 3937 Output Total 9463 3600 2475 Balance 1775 2240 1462 - Physical Exam Oriented: Normal Eyes: Normal Ear: Normal Nose: Normal Throat: Normal Respiratory: Generalized, Wheezes, Rhonchi (bilateral rhonchi) Cardiovascular: Tachycardia. negative: S3, S4, Murmur : Normal Auscultation: Bowel Sounds: Normal Palpation: Normal Tenderness: Diffuse Skin: Normal Musculoskeletal: Left, Elbow, Swelling, Tender Psychiatric: Normal Mood Description: Calm Affect: Normal Speech Pattern: Clear, Appropriate - Laboratory and Diagnostics Result Diagrams: 08/12/17 05:10 08/12/17 05:10 Labs: 08/04/17 21:04 Urine,Clean Catch Urine Culture - Final Staphylococcus Aureus 08/04/17 17:00 Blood Blood Culture - Final Klebsiella Pneumoniae 08/04/17 16:55 Blood Blood Culture - Final Klebsiella Pneumoniae Laboratory WBC 18.8 X10^3/uL (3.6-10.0) H 08/12/17 05:10 RBC 3.71 X10^6/uL (4.7-6.0) L 08/12/17 05:10 Hgb 9.2 g/dL (13.5-18.0) L 08/12/17 05:10 Hct 27.6 % (42.0-54.0) L 08/12/17 05:10 MCV 74.5 fL (80.0-100.0) L 08/12/17 05:10 MCH 24.8 pg (27.0-34.0) L 08/12/17 05:10 MCHC 33.3 g/dL (33.0-35.0) 08/12/17 05:10 RDW 21.1 % (11.6-16.5) H 08/12/17 05:10 Plt Count 677 X10^3/uL (150.0-450.0) H 08/12/17 05:10 Plt Count Comment Increased (ADEQUATE) 08/12/17 05:10 MPV 7.2 fL (7.4-11.0) L 08/12/17 05:10 Neut % 88.0 % (42.0-75.0) H 08/12/17 05:10 Lymph % 5.9 % (21.0-51.0) L 08/12/17 05:10 [place] % 5.7 % (0.0-13.0) 08/12/17 05:10 Eos % 0.3 % (0.9-2.9) L 08/12/17 05:10 Baso % 0.1 % (0.2-1.0) L 08/12/17 05:10 Neut # 16.5 x10^3/uL (2.2-4.8) H 08/12/17 05:10 Lymph # 1.1 X10^3/uL (1.3-2.9) L 08/12/17 05:10 [place] # 1.1 x10^3/uL (0.3-0.8) H 08/12/17 05:10 Eos # 0.1 x10^3/uL (0.0-0.2) 08/12/17 05:10 Baso # 0.0 X10^3/uL (0.0-0.1) 08/12/17 05:10 Absolute Nucleated RBC 0.0 /100WBC 08/12/17 05:10 Total Counted 100 08/06/17 05:52 Neutrophils % (Manual) 88 % (39-76) H 08/06/17 05:52 Band Neutrophils % 5 % (0-10) 08/06/17 05:52 Lymphocytes % (Manual) 4 % (13-43) L 08/06/17 05:52 Monocytes % (Manual) 3 % (4-9) L 08/06/17 05:52 Giant Platelets Few 08/09/17 05:20 Plt Morphology Comment Normal (NORMAL) 08/12/17 05:10 RBC Morphology Abnormal (NORMAL) 08/12/17 05:10 Hypochromasia Slight A 08/11/17 05:48 Anisocytosis 1+ A 08/12/17 05:10 Microcytosis 1+ A 08/07/17 06:40 Ovalocytes 1+ A 08/10/17 05:45 ESR 91 MM/HOUR (0-15) H 08/05/17 05:55 INR Target Range - 08/12/17 12:20 INR 1.18 (0.8-1.3) 08/12/17 12:20 PTT 31.1 SECONDS (22.9-36.5) 08/12/17 12:20 PTT Comment - 08/12/17 12:20 D-Dimer 2870 ng/mL (0-400) H* 08/12/17 05:10 Sample Site Lbra 08/12/17 05:54 ABG pH 7.440 (7.35-7.45) 08/12/17 05:54 ABG pCO2 38.0 mmHg (35.0-45.0) 08/12/17 05:54 ABG pO2 118.0 mmHg (80.0-100.0) H 08/12/17 05:54 ABG HCO3 25.8 mmol/L (22-26) 08/12/17 05:54 ABG O2 Saturation 99.0 % (90-100) 08/12/17 05:54 ABG Base Excess 1.7 mmol/L (-2.0-2.0) 08/12/17 05:54 Wang Test Na 08/12/17 05:54 A-a Gradient 548.0 mmHg 08/12/17 05:54 FiO2 100.000 08/12/17 05:54 Blood Gas Comments Les abg well-mtf 08/12/17 05:54 Sodium 135 mmol/L (136-145) L 08/12/17 05:10 Corrected Sodium 138 mmol/L (136-145) 08/12/17 05:10 Potassium 4.0 mmol/L (3.5-5.1) 08/12/17 05:10 Chloride 101 mmol/L (98-107) 08/12/17 05:10 Carbon Dioxide 25.0 mmol/L (21-32) 08/12/17 05:10 BUN 15 mg/dL (7-18) 08/12/17 05:10 Creatinine 1.05 mg/dL (0.70-1.30) 08/12/17 05:10 Est GFR (MDRD) Af Amer > 60 (>60) 08/12/17 05:10 Est GFR (MDRD) Non-Af > 60 (>60) 08/12/17 05:10 Glucose 223 mg/dL (65-99) H 08/12/17 05:10 POC Glucose (mg/dL) 113 mg/dL (65-99) H 08/12/17 10:50 Lactic Acid 1.1 mmol/L (0.4-2.0) 08/07/17 19:27 Uric Acid 4.5 mg/dL (3.5-7.2) 08/05/17 05:55 Calcium 7.7 mg/dL (8.5-10.1) L 08/12/17 05:10 Corrected Calcium 9.0 mg/dL (8.5-10.1) 08/12/17 05:10 Magnesium 1.7 mg/dL (1.7-2.9) 08/08/17 09:15 Total Bilirubin 0.60 mg/dL (0.2-1.0) 08/12/17 05:10 AST 47 Units/L (15-37) H 08/12/17 05:10 ALT 32 Units/L (12-78) 08/12/17 05:10 Alkaline Phosphatase 159 Units/L (46-116) H 08/12/17 05:10 Creatine Kinase 95 Units/L (39-308) 08/12/17 01:05 CK-MB (CK-2) 1.7 ng/mL (0-4.0) 08/12/17 01:05 CK/CKMB % Calc 1.8 % (<4) 08/12/17 01:05 Troponin I 0.03 ng/mL (0-1.5) 08/12/17 01:05 C-Reactive Protein 234.60 mg/L (0-3.0) H 08/05/17 05:55 Total Protein 7.0 g/dL (6.4-8.2) 08/12/17 05:10 Albumin 2.4 g/dL (3.4-5.0) L 08/12/17 05:10 Globulin 4.6 g/dL (2.5-4.5) H 08/12/17 05:10 Albumin/Globulin Ratio 0.5 Ratio (1.1-2.1) L 08/12/17 05:10 Carcinoembryonic Ag 2.6 ng/mL (0.0-3.0) 08/08/17 09:15 Specimen Type Clean catch urine 08/04/17 21:04 Urine Color Yellow (YELLOW) 08/04/17 21:04 Urine Appearance Slightly hazy (CLEAR) 08/04/17 21:04 Urine pH 5.0 (5.0 - 8.0) 08/04/17 21:04 Ur Specific [place] 1.010 (1.000-1.030) 08/04/17 21:04 Urine Protein 2+ (NEGATIVE) 08/04/17 21:04 Urine Glucose (UA) 4+ (NEGATIVE) 08/04/17 21:04 Urine Ketones 4+ (NEGATIVE) 08/04/17 21:04 Urine Occult Blood 4+ (NEGATIVE) 08/04/17 21:04 Urine Nitrite Negative (NEGATIVE) 08/04/17 21:04 Urine Bilirubin Negative (NEGATIVE) 08/04/17 21:04 Urine Urobilinogen Normal (NORMAL) 08/04/17 21:04 Ur Leukocyte Esterase Negative (NEGATIVE) 08/04/17 21:04 Urine RBC 1-5 /HPF (NONE SEEN) 08/04/17 21:04 Urine WBC 0-4 /HPF (NONE SEEN) 08/04/17 21:04 Ur Squamous Epith Cells Rare /HPF (NEGATIVE) 08/04/17 21:04 Urine Bacteria Trace /HPF (NEGATIVE) 08/04/17 21:04 Urine Mucus Few /HPF (NEGATIVE) 08/04/17 21:04 Ur Culture Indicated? Yes/culture set up 08/04/17 21:04 Vancomycin Trough 13.9 ug/mL (15-20) L 08/11/17 05:48 Influenza Type A (PCR) Negative (NEGATIVE) 08/04/17 16:31 Influenza Type B (PCR) Negative (NEGATIVE) 08/04/17 16:31 S. pyogenes (TEM-PCR) Not detected (NOT DETECT) 08/04/17 16:31 Tissue Pathology To follow 08/07/17 10:24 Blood Type O POSITIVE 08/07/17 09:03 Antibody Screen Negative 08/07/17 09:03 Crossmatch See Detail 08/07/17 09:03 - Plan (1) Acute appendicitis Status: Acute Qualifiers: Acute appendicitis type: unspecified acute appendicitis type Qualified Code (s): K35.80 - Unspecified acute appendicitis Plan: SURGICAL CONSULT FOR APPENDECTOMY, CONTINUE TO MONITOR (2) Pneumonia Status: Acute Qualifiers: Pneumonia type: due to Klebsiella pneumoniae Laterality: right Lung location: lower lobe of lung Qualified Code(s): J15.0 - Pneumonia due to Klebsiella pneumoniae Plan: CONTINUE VANCOMYCIN, CONTINUE ZOSYN, CONTINUE RESPIRATORY TX AND SUPPLEMENTAL OXYGEN, CONTINUE TO MONITOR (3) Anemia Status: Acute Qualifiers: Anemia type: iron deficiency Iron deficiency anemia type: chronic blood loss Qualified Code(s): D50.0 - Iron deficiency anemia secondary to blood loss (chronic) Plan: TRANSFUSED TWO UNITS OF PACKED RED BLOOD CELLS THROUGHOUT THE NIGHT, MONITOR H&H Q4H, CONTINUE TO MONITOR (4) Septic arthritis of elbow, left Status: Acute Qualifiers: Septic arthritis organism: due to unspecified organism Qualified Code(s): M00.9 - Pyogenic arthritis, unspecified Plan: CONTINUE VANCOMYCIN, CONTINUE ZOSYN, CONTINUE TO MONITOR (5) Protein deficiency Status: Acute Plan: TPN, CONTINUE TO MONITOR (6) Generalized weakness Status: Acute Plan: NORMAL SALINE AT 150ML/HR WITH 1 AMP BICARB TO EACH LITER OF IVF, CONTINUE TO MONITOR (7) Body aches Status: Acute Plan: TAMIFLU, CONTINUE TO MONITOR (8) Hypertension Status: Chronic Qualifiers: Hypertension type: essential hypertension Plan: CATAPRES PATCH, COZAAR, CONTINUE TO MONITOR (9) Diabetes mellitus type 1 Status: Chronic Qualifiers: Diabetes mellitus complication status: without complication Qualified Code( s): E10.9 - Type 1 diabetes mellitus without complications Plan: CONTINUE TOUJEO, CONTINUE HUMALOG, CONTIUE TO MONITOR OTBS
[2017-08-12 13:38] LABS: CREATININE 1.19 mg/dL (0.70-1.30)
[2017-08-12] MEDS: HEPARIN SODIUM IN D5W 25,000 UNITS/500 ML BAG IV PRN (13:48)
[2017-08-12] MEDS: CARDIZEM INJ 125 MG VIAL 125 MG in NS 100 ML IV 100 ML IV PRN ×2 (13:52→22:12)
[2017-08-12] MEDS ORDERED: CARDIZEM INJ 50 MG VIAL ONE (13:55)
[2017-08-12] MEDS ORDERED: CARDIZEM INJ 50 MG VIAL IVP ONE (14:03)
[2017-08-12] MEDS ORDERED: NORMODYNE INJ 20 MG VIAL IVP PRN (16:39)
[2017-08-12] MEDS ORDERED: KLONOPIN TAB 1 MG PO ONE (18:51)
[2017-08-12] MEDS ORDERED: SOLU-Medrol 40 MG VIAL ONE (18:52)
[2017-08-12] MEDS: SOLU-Medrol 40 MG VIAL IVP SCH (18:55)
[2017-08-12] MEDS ORDERED: NS 100 ML IV 100 ML IV ONE (21:26)
[2017-08-12] MEDS: COLACE CAP 100 MG PO SCH (21:42)
[2017-08-12] MEDS: CHECK PATCH XX SCH (21:44)
[2017-08-12] MEDS: TOUJEO SOLOSTAR PEN SC SCH (21:53)
[2017-08-13] MEDS: CLINIMIX 5 %/15 % 1,000 ML with MVI INJ (ADULT) 10 ML, TRACE ELEMENTS INJ 10 ML, DRUG F... IV SCH ×8 (00:20→18:37)
[2017-08-13 00:47] LABS: BILIRUBIN,URINE NEGATIVE (NEGATIVE); BLOOD/HEMOGLOBIN,URINE 2+ (NEGATIVE); GLUCOSE, URINE 4+ (NEGATIVE); KETONES,URINE NEGATIVE (NEGATIVE); LEUKOCYTE ESTERASE ,URINE NEGATIVE (NEGATIVE); NITRITES,URINE NEGATIVE (NEGATIVE); PROTEIN,URINE 2+ (NEGATIVE); UROBILINOGEN,URINE NORMAL (NORMAL)
[2017-08-13 00:53] LABS: APPEARANCE,URINE CLEAR (CLEAR); BACTERIA,URINE NEGATIVE /HPF (NEGATIVE); COLOR,URINE YELLOW (YELLOW); RBC,URINE RARE /HPF (NONE SEEN); SQUAMOUS EPITHELIAL CELL,UR RARE /HPF (NEGATIVE)
[2017-08-13 00:54] LABS: AMORPHOUS SEDIMENT,UR 1+ /HPF (NEGATIVE)
[2017-08-13] MEDS: TORADOL 30 MG VIAL IVP SCH ×4 (01:47→20:47)
[2017-08-13] MEDS: SOLU-Medrol 40 MG VIAL IVP SCH ×4 (01:50→21:06)
[2017-08-13 03:40] LABS: BASOPHILS # (AUTO) 0.4 X10^3/uL (0.0-0.1); BASOPHILS % (AUTO) 1.4 % (0.2-1.0); HEMATOCRIT 31.7 % (42.0-54.0); HEMOGLOBIN 10.5 g/dL (13.5-18.0); LYMPHOCYTES # (AUTO) 0.7 X10^3/uL (1.3-2.9); LYMPHOCYTES % (AUTO) 2.2 % (21.0-51.0); MEAN CORPUSCULAR HEMOGLOBIN 24.8 pg (27.0-34.0); MEAN CORPUSCULAR VOLUME 75.3 fL (80.0-100.0); MEAN PLATELET VOLUME 6.9 fL (7.4-11.0); MONOCYTES # (AUTO) 0.6 x10^3/uL (0.3-0.8); MONOCYTES % (AUTO) 2.1 % (0.0-13.0); NEUTROPHILS # (AUTO) 28.4 x10^3/uL (2.2-4.8); NEUTROPHILS % (AUTO) 94.3 % (42.0-75.0); PLATELET COUNT 842 X10^3/uL (150.0-450.0); RED BLOOD COUNT 4.22 X10^6/uL (4.7-6.0); RED CELL DISTRIBUTION WIDTH 21.7 % (11.6-16.5)
[2017-08-13 03:49] LABS: ALANINE AMINOTRANSFERASE 33 Units/L (12-78); ALBUMIN 2.6 g/dL (3.4-5.0); ALKALINE PHOSPHATASE 240 Units/L (46-116); ASPARTATE AMINO TRANSFERASE 30 Units/L (15-37); BLOOD UREA NITROGEN 21 mg/dL (7-18); CALCIUM 8.2 mg/dL (8.5-10.1); CHLORIDE 98 mmol/L (98-107); COR CA(FOR HYPOALB) 9.3 mg/dL (8.5-10.1); COR NA(FOR HYPERGLY) 139 mmol/L (136-145); SODIUM 134 mmol/L (136-145); TOTAL PROTEIN 7.9 g/dL (6.4-8.2); eGFR BLACK RACES > 60 (>60); eGFR NON BLACK RACES > 60 (>60)
[2017-08-13 04:00] LABS: WHITE BLOOD COUNT 30.1 X10^3/uL (3.6-10.0)
[2017-08-13 04:02] LABS: ANISOCYTOSIS 1+; HYPOCHROMASIA SLIGHT; PLATELET MORPHOLOGY COMMENT NORMAL (NORMAL)
[2017-08-13] MEDS ORDERED: HEPARIN SODIUM INJ 5000 UNITS IVP ONE ×4 (04:08→19:19)
[2017-08-13] MEDS ORDERED: HEPARIN SODIUM INJ 5000 UNITS ONE (04:11)
[2017-08-13] MEDS: NS 1000 ML 1,000 ML IV SCH ×2 (04:21→19:22)
[2017-08-13] MEDS ORDERED: ZOSYN VIAL 3.375 GM IV ONE (04:57)
[2017-08-13] MEDS ORDERED: NS 100 ML IV 100 ML IV ONE (04:57)
[2017-08-13] MEDS: ZOSYN VIAL 3.375 GM 3.375 GM in NS 100 ML IV + SPIKE MINIBAG* 100 ML IV SCH (05:02)
[2017-08-13] MEDS: KLONOPIN TAB 1 MG PO SCH ×3 (05:56→21:05)
[2017-08-13] MEDS: HumaLOG SC SCH ×3 (05:57→17:54)
[2017-08-13] MEDS: CARDIZEM INJ 125 MG VIAL 125 MG in NS 100 ML IV 100 ML IV PRN (07:05)
[2017-08-13] MEDS: DUONEB 0.5 MG/3 MG NEB SCH ×4 (09:00→20:34)
[2017-08-13] MEDS ORDERED: VANCOMYCIN HCL 1 GM VIAL 1 GM in D5W 250 ML IV 250 ML IV SCH (09:00)
[2017-08-13] MEDS: PROTONIX TAB 40 MG PO SCH ×2 (09:02→21:05)
[2017-08-13] MEDS: ZyrTEC TAB 10 MG PO SCH (09:03)
[2017-08-13] MEDS: PEPCID TAB 20 MG PO SCH ×2 (09:03→21:05)
[2017-08-13] MEDS: K-DUR TAB 20 MEQ PO SCH ×2 (09:03→21:04)
[2017-08-13] MEDS: COZAAR PO SCH (09:03)
[2017-08-13 09:05] LABS: ABG ALLEN TEST POS; ABG BASE EXCESS 4.2 mmol/L (-2.0-2.0); ABG HCO3 28.4 mmol/L (22-26)
--- NOTE | 2017-08-13 09:14 | RAD ---
Chest, one-view Indication: Increasing shortness of breath Comparison: CT chest and radiograph 08/12/2017 Findings: There is diffuse bilateral airspace consolidation, worsened since yesterday's exam, now inv olving the entire left lung and increasing within the mid right lung. Small associated effusions pers ist. The heart size is grossly stable. Right-sided port catheter is well positioned without pneumotho rax. Impression: Worsening multifocal pneumonia with persistent bilateral parapneumonic effusions. Reported By:
[2017-08-13] MEDS ORDERED: DIPRIVAN VIAL 20 ML ONE (09:30)
[2017-08-13] MEDS ORDERED: QUELICIN (OR ANECTINE) ONE (09:31)
[2017-08-13 09:48] LABS: CREATININE 1.18 mg/dL (0.70-1.30); VANCOMYCIN,TROUGH 7.7 ug/mL (15-20)
--- NOTE | 2017-08-13 10:03 | RAD ---
Chest, one view Indication: ETT placement Comparison: Chest radiograph from earlier today Findings: Tip of the endotracheal tube is well positioned, terminating 4 cm above the david. There i s persistent but overall improved airspace disease of the left greater than right lungs. Small left g reater than right pleural effusions persist. Right-sided port catheter is well positioned without pne umothorax. Impression: Satisfactory endotracheal tube placement, as above. Persistent but improving left greater than right airspace disease. Reported By:
[2017-08-13] MEDS ORDERED: DIPRIVAN PREMIX 1 GM IV 1,000 MG/100 ML VIAL ONE (10:15)
[2017-08-13] MEDS: DIPRIVAN PREMIX 1 GM IV 1,000 MG/100 ML VIAL IV PRN ×2 (10:42→18:10)
[2017-08-13 11:30] LABS: ABG HCO3 27.6 mmol/L (22-26)
[2017-08-13] MEDS: MILK OF MAGNESIA PO SCH ×2 (12:37→21:05)
[2017-08-13] MEDS: CHECK PATCH XX SCH ×2 (12:40→21:04)
[2017-08-13] MEDS: ZOSYN VIAL 3.375 GM 3.375 GM in NS 100 ML IV 100 ML IV SCH ×2 (14:06→21:06)
[2017-08-13] MEDS: ALBUMIN HUMAN 25%- 100ML 100 ML IV SCH (14:07)
[2017-08-13] MEDS: HEPARIN SODIUM IN D5W 25,000 UNITS/500 ML BAG IV PRN (14:18)
[2017-08-13] MEDS: ATIVAN INJ 2 MG VIAL IVP PRN (16:30)
[2017-08-13] MEDS ORDERED: XYLOCAINE 1 % (PLAIN) ONE (16:35)
--- NOTE | 2017-08-13 17:45 | DR.PROGNOT ---
Hospital Progress Notes - Progress Note for Day of: Progress Note Date: 08/13/17 - Chief Complaint Chief Complaint: pt is intubated now because of respiratory failure and bilateral pneumonia . he is still on several IV ATB and TPN. - Past Medical Family Social History Past Med/Fam/Surg Hx: No changes since H&P Allergies: Allergies codeine Allergy (Verified 07/30/17 02:52) morphine Allergy (Verified 07/30/17 02:52) - Review Of Systems ROS: Changes notes (describe) (as mentioned above Pt had to be intubated because of resperatory failure from the pneumonia ) - Vital Signs Vital Signs: Temperature 98 F Pulse Rate [Right Brachial] 106 Pulse Rate 119 Respiratory Rate 32 Blood Pressure [Right Arm] 139/80 Blood Pressure [Left Arm] 111/78 Blood Pressure [Left Radial 160/102 Artery] Blood Pressure 137/70 O2 Sat by Pulse Oximetry 100 - Physical Exam Oriented: Normal Eyes: Normal Ear: Normal Nose: Normal Throat: Normal Respiratory: Generalized, Wheezes, Rhonchi (bilateral rhonchi) Cardiovascular: Tachycardia. negative: S3, S4, Murmur : Normal GI:Auscultation: Normal GI:Palpation: Normal GI: Tenderness: Diffuse Skin: Normal Musculoskeletal: Left, Elbow, Swelling, Tender Psychiatric: Normal Mood Description: Calm Affect: Normal Speech Pattern: Clear, Appropriate - Laboratory and Diagnostics Result Diagrams: 08/13/17 03:20 08/13/17 09:18 Labs: 08/13/17 10:00 Sputum - Expectorated Sputum - Final 08/04/17 21:04 Urine,Clean Catch Urine Culture - Final Staphylococcus Aureus 08/04/17 17:00 Blood Blood Culture - Final Klebsiella Pneumoniae 08/04/17 16:55 Blood Blood Culture - Final Klebsiella Pneumoniae Laboratory WBC 30.1 X10^3/uL (3.6-10.0) H* D 08/13/17 03:20 RBC 4.22 X10^6/uL (4.7-6.0) L 08/13/17 03:20 Hgb 10.5 g/dL (13.5-18.0) L 08/13/17 03:20 Hct 31.7 % (42.0-54.0) L 08/13/17 03:20 MCV 75.3 fL (80.0-100.0) L 08/13/17 03:20 MCH 24.8 pg (27.0-34.0) L 08/13/17 03:20 MCHC 33.0 g/dL (33.0-35.0) 08/13/17 03:20 RDW 21.7 % (11.6-16.5) H 08/13/17 03:20 Plt Count 842 X10^3/uL (150.0-450.0) H 08/13/17 03:20 Plt Count Comment Increased (ADEQUATE) 08/13/17 03:20 MPV 6.9 fL (7.4-11.0) L 08/13/17 03:20 Neut % 94.3 % (42.0-75.0) H 08/13/17 03:20 Lymph % 2.2 % (21.0-51.0) L 08/13/17 03:20 [place] % 2.1 % (0.0-13.0) 08/13/17 03:20 Eos % 0.0 % (0.9-2.9) L 08/13/17 03:20 Baso % 1.4 % (0.2-1.0) H 08/13/17 03:20 Neut # 28.4 x10^3/uL (2.2-4.8) H 08/13/17 03:20 Lymph # 0.7 X10^3/uL (1.3-2.9) L 08/13/17 03:20 [place] # 0.6 x10^3/uL (0.3-0.8) 08/13/17 03:20 Eos # 0.0 x10^3/uL (0.0-0.2) 08/13/17 03:20 Baso # 0.4 X10^3/uL (0.0-0.1) H 08/13/17 03:20 Absolute Nucleated RBC 0.0 /100WBC 08/13/17 03:20 Total Counted 100 08/13/17 03:20 Neutrophils % (Manual) 97 % (39-76) H 08/13/17 03:20 Band Neutrophils % 5 % (0-10) 08/06/17 05:52 Lymphocytes % (Manual) 2 % (13-43) L 08/13/17 03:20 Monocytes % (Manual) 1 % (4-9) L 08/13/17 03:20 Giant Platelets Few 08/09/17 05:20 Plt Morphology Comment Normal (NORMAL) 08/13/17 03:20 RBC Morphology Abnormal (NORMAL) 08/13/17 03:20 Hypochromasia Slight A 08/13/17 03:20 Anisocytosis 1+ A 08/13/17 03:20 Microcytosis 1+ A 08/07/17 06:40 Ovalocytes 1+ A 08/10/17 05:45 ESR 91 MM/HOUR (0-15) H 08/05/17 05:55 INR Target Range - 08/12/17 12:20 INR 1.18 (0.8-1.3) 08/12/17 12:20 PTT 45.9 SECONDS (22.9-36.5) H 08/13/17 10:10 PTT Comment - 08/13/17 10:10 D-Dimer 2870 ng/mL (0-400) H* 08/12/17 05:10 Sample Site Right brachial 08/13/17 11:09 ABG pH 7.480 (7.35-7.45) H 08/13/17 11:09 ABG pCO2 37.0 mmHg (35.0-45.0) 08/13/17 11:09 ABG pO2 89.0 mmHg (80.0-100.0) 08/13/17 11:09 ABG HCO3 27.6 mmol/L (22-26) H 08/13/17 11:09 ABG O2 Saturation 97.0 % (90-100) 08/13/17 11:09 ABG Base Excess 4.0 mmol/L (-2.0-2.0) H 08/13/17 11:09 Wang Test Na 08/13/17 11:09 A-a Gradient 293.0 mmHg 08/13/17 11:09 FiO2 60.000 08/13/17 11:09 Blood Gas Comments Les well aw 08/13/17 11:09 Sodium 134 mmol/L (136-145) L 08/13/17 03:20 Corrected Sodium 139 mmol/L (136-145) 08/13/17 03:20 Potassium 4.9 mmol/L (3.5-5.1) 08/13/17 03:20 Chloride 98 mmol/L (98-107) 08/13/17 03:20 Carbon Dioxide 26.0 mmol/L (21-32) 08/13/17 03:20 BUN 21 mg/dL (7-18) H 08/13/17 03:20 Creatinine 1.18 mg/dL (0.70-1.30) 08/13/17 09:18 Est GFR (MDRD) Af Amer > 60 (>60) 08/13/17 03:20 Est GFR (MDRD) Non-Af > 60 (>60) 08/13/17 03:20 Glucose 319 mg/dL (65-99) H 08/13/17 03:20 POC Glucose (mg/dL) 173 mg/dL (65-99) H 08/13/17 17:04 Lactic Acid 1.1 mmol/L (0.4-2.0) 08/07/17 19:27 Uric Acid 4.5 mg/dL (3.5-7.2) 08/05/17 05:55 Calcium 8.2 mg/dL (8.5-10.1) L 08/13/17 03:20 Corrected Calcium 9.3 mg/dL (8.5-10.1) 08/13/17 03:20 Magnesium 1.7 mg/dL (1.7-2.9) 08/08/17 09:15 Total Bilirubin 0.90 mg/dL (0.2-1.0) 08/13/17 03:20 AST 30 Units/L (15-37) 08/13/17 03:20 ALT 33 Units/L (12-78) 08/13/17 03:20 Alkaline Phosphatase 240 Units/L (46-116) H 08/13/17 03:20 Creatine Kinase 95 Units/L (39-308) 08/12/17 01:05 CK-MB (CK-2) 1.7 ng/mL (0-4.0) 08/12/17 01:05 CK/CKMB % Calc 1.8 % (<4) 08/12/17 01:05 Troponin I 0.03 ng/mL (0-1.5) 08/12/17 01:05 C-Reactive Protein 234.60 mg/L (0-3.0) H 08/05/17 05:55 Total Protein 7.9 g/dL (6.4-8.2) 08/13/17 03:20 Albumin 2.6 g/dL (3.4-5.0) L 08/13/17 03:20 Globulin 5.3 g/dL (2.5-4.5) H 08/13/17 03:20 Albumin/Globulin Ratio 0.5 Ratio (1.1-2.1) L 08/13/17 03:20 Carcinoembryonic Ag 2.6 ng/mL (0.0-3.0) 08/08/17 09:15 Specimen Type Catherized urine 08/13/17 00:26 Urine Color Yellow (YELLOW) 08/13/17 00:26 Urine Appearance Clear (CLEAR) 08/13/17 00:26 Urine pH 5.0 (5.0 - 8.0) 08/13/17 00:26 Ur Specific [place] 1.010 (1.000-1.030) 08/13/17 00:26 Urine Protein 2+ (NEGATIVE) 08/13/17 00:26 Urine Glucose (UA) 4+ (NEGATIVE) 08/13/17 00:26 Urine Ketones Negative (NEGATIVE) 08/13/17 00:26 Urine Occult Blood 2+ (NEGATIVE) 08/13/17 00:26 Urine Nitrite Negative (NEGATIVE) 08/13/17 00:26 Urine Bilirubin Negative (NEGATIVE) 08/13/17 00:26 Urine Urobilinogen Normal (NORMAL) 08/13/17 00:26 Ur Leukocyte Esterase Negative (NEGATIVE) 08/13/17 00:26 Urine RBC Rare /HPF (NONE SEEN) 18 00:26 Urine WBC None seen /HPF (NONE SEEN) 08/13/17 00:26 Ur Squamous Epith Cells Rare /HPF (NEGATIVE) 08/13/17 00:26 Amorphous Sediment 1+ /HPF (NEGATIVE) 08/13/17 00:26 Urine Bacteria Negative /HPF (NEGATIVE) 08/13/17 00:26 Urine Mucus Few /HPF (NEGATIVE) 08/04/17 21:04 Ur Culture Indicated? No/not indicated 08/13/17 00:26 Vancomycin Trough 7.7 ug/mL (15-20) L 08/13/17 09:18 Influenza Type A (PCR) Negative (NEGATIVE) 08/04/17 16:31 Influenza Type B (PCR) Negative (NEGATIVE) 08/04/17 16:31 S. pyogenes (TEM-PCR) Not detected (NOT DETECT) 08/04/17 16:31 Tissue Pathology To follow 08/07/17 10:24 Blood Type O POSITIVE 08/07/17 09:03 Antibody Screen Negative 08/07/17 09:03 Crossmatch See Detail 08/07/17 09:03 - Assessment and Plan 1: resperatory failure. multi focal pneumonia. acute bursitis Lt elbow .and maybe infectious arthritis. positive blood culture with Gm negative rods. same IV ATB . Hydration pulmonary care .and nutrotional support - Problem Patient Problems: Patient Problems Acute appendicitis (Acute) K35.80 Anemia (Acute) D64.9 Body aches (Acute) R52 Generalized weakness (Acute) R53.1 Pneumonia (Acute) J18.9 Protein deficiency (Acute) E46 Septic arthritis of elbow, left (Acute) M00.9 Fever of unknown origin (FUO) (Resolved) R50.9
--- NOTE | 2017-08-13 17:53 | RAD ---
HISTORY: Line placement. Study: AP portable chest Comparison: 08/13/2017 at 9:54 a.m. Findings: There is again noted to be moderate to moderately severe diffuse bilateral interstitial and alveolar infiltrates, possibly due to pneumonia or congestive heart failure. A Port-A-Cath is present on the right with the tip at the cavoatrial junction. There has been placement of a left-sided central line . The tip is at the cavoatrial junction. There is now a small to moderate-sized pneumothorax on the left at this time. The heart size is normal. No acute bony abnormalities are identified. An endot feroz tube is present in satisfactory position. IMPRESSION: 1. No significant change is noted in the diffuse bilateral interstitial and alveolar infiltrates sug gestive of diffuse pneumonia or congestive heart failure. 2. Interval placement of a left-sided IJ line. The tip is at the cavoatrial junction. 3. Small to moderate-size left-sided pneumothorax is noted at this time. 4. I personally spoke with Dr. Worthington about these results on 08/13/2017 at 5:51 p.m. Reported By:
--- NOTE | 2017-08-13 19:12 | RAD ---
HISTORY: Follow-up central line placement. Study: Portable chest. Comparison: Chest x-ray dated same day at 5:20 p.m. Findings: Study slightly limited secondary to lung apices off the field of view. Stable appearance of a right chest Port-A-Cath, endotracheal tube, and right IJ central venous cathet er. Aeration of the right lung appears unchanged given technique. Moderate to large left pneumothorax which appears worse given technique from most recent comparison. No obvious mediastinal shift. The o sseous structures appear unchanged. IMPRESSION: 1. Worsening left pneumothorax as above. 2. Tubes and lines as above. Reported By:
--- NOTE | 2017-08-13 20:35 | PCM.PROG ---
Progress Note - Progress Note for Day of Date: 08/10/17 - Subjective Subjective: IS STATUS POST APPENDECTOMY AND IS ALSO BEING TREATED FOR PNEUMONIA. TODAY, HE IS ALERT AND ORIENTED, LYING IN BED ON MORNING ROUNDS. HE CONTINUES WITH COMPLAINTS OF GENERALIZED WEAKNESS, LEFT ELBOW AND BILATERAL LEG PAIN, NON-PRODUCTIVE COUGH, SHORTNESS OF BREATH, AND ABDOMINAL PAIN. ON EXAMINATION, BILATERAL LUNGS CONTINUE WITH RHONCHI AND WHEEZING THROUGHOUT. HE IS CURRENTLY UTILIZING OXYGEN VIA NASAL CANNULA AT 2L/MIN. ABDOMEN IS ROUND, SOFT, AND NOTED WITH DIFFUSE TENDERNESS TO PALPATION. NORMAL BOWEL SOUNDS NOTED IN ALL QUADRANTS. SURGICAL DRESSINGS NOTED TO ABDOMEN WITH NO DRAINAGE NOTED. THERE IS NORMAL RANGE OF MOTION TO ALL EXTREMITIES. HIS VITALS THIS MORNING ARE 98.7-97-33-97%-168/86. HE HAS BEEN AFEBRILE THROUGHOUT THE NIGHT. PATIENTS HEMOGLOBIN FELL THROUGHOUT THE NIGHT AND HE WAS TRANSUFED WITH TWO UNITS OF PACKED RED BLOOD CELLS. LABS WERE OBTAINED. ABNORMAL LAB VALUES INCLUDE THE FOLLOWING: WBC 12.7, RBC 3.40, HGB 8.5, HCT 24.9, PLT COUNT 468, SODIUM 132, POTASSIUM 3.1, GLUCOSE 341, CALCIUM 6.6, AST 9, TOTAL PROTEIN 5.7, ALBUMIN 1.9. WE OBTAINED A CHEST XRAY TODAY. IT REPORTED RIGHT LOWER LOBE BRONCHOPNEUMONIA. TODAY, WE WILL CONTINUE WITH THE PNEUMONIA PATHWAY, TPN, ALBUMIN, AND PHYSICAL THERAPY. WE PLAN TO FOLLOW UP WITH AM LABS AND CONTINUE TO MONITOR PATIENT. - Past Medical Family Social History Past Med/Fam/Surg Hx: No changes since H&P Allergies: Allergies codeine Allergy (Verified 07/30/17 02:52) morphine Allergy (Verified 07/30/17 02:52) - Review of Systems ROS: Changes notes (describe) (as mentioned above Pt had to be intubated because of resperatory failure from the pneumonia ) - Vital Signs and I&O's Vital Signs: Temperature 98 F Pulse Rate [Right Brachial] 124 Pulse Rate 119 Respiratory Rate 45 Blood Pressure [Right Arm] 139/80 Blood Pressure [Left Arm] 132/69 Blood Pressure [Left Radial 160/102 Artery] Blood Pressure 137/70 O2 Sat by Pulse Oximetry 99 Intake and Output: Intake & Output 08/11/17 08/12/17 08/13/17 08/14/17 11:59 11:59 11:59 11:59 Intake Total 5840 3937 3382 595 Output Total 7014 7529 2779 Balance 2240 3372 -110 596 - Physical Exam Oriented: Normal Eyes: Normal Ear: Normal Nose: Normal Throat: Normal Respiratory: Generalized, Wheezes, Rhonchi (bilateral rhonchi) Cardiovascular: Tachycardia. negative: S3, S4, Murmur : Normal Auscultation: Bowel Sounds: Normal Palpation: Normal Tenderness: Diffuse Skin: Normal Musculoskeletal: Left, Elbow, Swelling, Tender Psychiatric: Normal Mood Description: Calm Affect: Normal Speech Pattern: Clear, Appropriate - Laboratory and Diagnostics Result Diagrams: 08/13/17 03:20 08/13/17 09:18 Labs: 08/13/17 10:00 Sputum - Expectorated Sputum - Final 08/04/17 21:04 Urine,Clean Catch Urine Culture - Final Staphylococcus Aureus 08/04/17 17:00 Blood Blood Culture - Final Klebsiella Pneumoniae 08/04/17 16:55 Blood Blood Culture - Final Klebsiella Pneumoniae Laboratory WBC 30.1 X10^3/uL (3.6-10.0) H* D 08/13/17 03:20 RBC 4.22 X10^6/uL (4.7-6.0) L 08/13/17 03:20 Hgb 10.5 g/dL (13.5-18.0) L 08/13/17 03:20 Hct 31.7 % (42.0-54.0) L 08/13/17 03:20 MCV 75.3 fL (80.0-100.0) L 08/13/17 03:20 MCH 24.8 pg (27.0-34.0) L 08/13/17 03:20 MCHC 33.0 g/dL (33.0-35.0) 08/13/17 03:20 RDW 21.7 % (11.6-16.5) H 08/13/17 03:20 Plt Count 842 X10^3/uL (150.0-450.0) H 08/13/17 03:20 Plt Count Comment Increased (ADEQUATE) 08/13/17 03:20 MPV 6.9 fL (7.4-11.0) L 08/13/17 03:20 Neut % 94.3 % (42.0-75.0) H 08/13/17 03:20 Lymph % 2.2 % (21.0-51.0) L 08/13/17 03:20 [place] % 2.1 % (0.0-13.0) 08/13/17 03:20 Eos % 0.0 % (0.9-2.9) L 08/13/17 03:20 Baso % 1.4 % (0.2-1.0) H 08/13/17 03:20 Neut # 28.4 x10^3/uL (2.2-4.8) H 08/13/17 03:20 Lymph # 0.7 X10^3/uL (1.3-2.9) L 08/13/17 03:20 [place] # 0.6 x10^3/uL (0.3-0.8) 08/13/17 03:20 Eos # 0.0 x10^3/uL (0.0-0.2) 08/13/17 03:20 Baso # 0.4 X10^3/uL (0.0-0.1) H 08/13/17 03:20 Absolute Nucleated RBC 0.0 /100WBC 08/13/17 03:20 Total Counted 100 08/13/17 03:20 Neutrophils % (Manual) 97 % (39-76) H 08/13/17 03:20 Band Neutrophils % 5 % (0-10) 08/06/17 05:52 Lymphocytes % (Manual) 2 % (13-43) L 08/13/17 03:20 Monocytes % (Manual) 1 % (4-9) L 08/13/17 03:20 Giant Platelets Few 08/09/17 05:20 Plt Morphology Comment Normal (NORMAL) 08/13/17 03:20 RBC Morphology Abnormal (NORMAL) 08/13/17 03:20 Hypochromasia Slight A 08/13/17 03:20 Anisocytosis 1+ A 08/13/17 03:20 Microcytosis 1+ A 08/07/17 06:40 Ovalocytes 1+ A 08/10/17 05:45 ESR 91 MM/HOUR (0-15) H 08/05/17 05:55 INR Target Range - 08/12/17 12:20 INR 1.18 (0.8-1.3) 08/12/17 12:20 PTT 51.2 SECONDS (22.9-36.5) H 08/13/17 17:58 PTT Comment - 08/13/17 17:58 D-Dimer 2870 ng/mL (0-400) H* 08/12/17 05:10 Sample Site Right brachial 08/13/17 11:09 ABG pH 7.480 (7.35-7.45) H 08/13/17 11:09 ABG pCO2 37.0 mmHg (35.0-45.0) 08/13/17 11:09 ABG pO2 89.0 mmHg (80.0-100.0) 08/13/17 11:09 ABG HCO3 27.6 mmol/L (22-26) H 08/13/17 11:09 ABG O2 Saturation 97.0 % (90-100) 08/13/17 11:09 ABG Base Excess 4.0 mmol/L (-2.0-2.0) H 08/13/17 11:09 Wang Test Na 08/13/17 11:09 A-a Gradient 293.0 mmHg 08/13/17 11:09 FiO2 60.000 08/13/17 11:09 Blood Gas Comments Les well aw 08/13/17 11:09 Sodium 134 mmol/L (136-145) L 08/13/17 03:20 Corrected Sodium 139 mmol/L (136-145) 08/13/17 03:20 Potassium 4.9 mmol/L (3.5-5.1) 08/13/17 03:20 Chloride 98 mmol/L (98-107) 08/13/17 03:20 Carbon Dioxide 26.0 mmol/L (21-32) 08/13/17 03:20 BUN 21 mg/dL (7-18) H 08/13/17 03:20 Creatinine 1.18 mg/dL (0.70-1.30) 08/13/17 09:18 Est GFR (MDRD) Af Amer > 60 (>60) 08/13/17 03:20 Est GFR (MDRD) Non-Af > 60 (>60) 08/13/17 03:20 Glucose 319 mg/dL (65-99) H 08/13/17 03:20 POC Glucose (mg/dL) 173 mg/dL (65-99) H 08/13/17 17:04 Lactic Acid 1.1 mmol/L (0.4-2.0) 08/07/17 19:27 Uric Acid 4.5 mg/dL (3.5-7.2) 08/05/17 05:55 Calcium 8.2 mg/dL (8.5-10.1) L 08/13/17 03:20 Corrected Calcium 9.3 mg/dL (8.5-10.1) 08/13/17 03:20 Magnesium 1.7 mg/dL (1.7-2.9) 08/08/17 09:15 Total Bilirubin 0.90 mg/dL (0.2-1.0) 08/13/17 03:20 AST 30 Units/L (15-37) 08/13/17 03:20 ALT 33 Units/L (12-78) 08/13/17 03:20 Alkaline Phosphatase 240 Units/L (46-116) H 08/13/17 03:20 Creatine Kinase 95 Units/L (39-308) 08/12/17 01:05 CK-MB (CK-2) 1.7 ng/mL (0-4.0) 08/12/17 01:05 CK/CKMB % Calc 1.8 % (<4) 08/12/17 01:05 Troponin I 0.03 ng/mL (0-1.5) 08/12/17 01:05 C-Reactive Protein 234.60 mg/L (0-3.0) H 08/05/17 05:55 Total Protein 7.9 g/dL (6.4-8.2) 08/13/17 03:20 Albumin 2.6 g/dL (3.4-5.0) L 08/13/17 03:20 Globulin 5.3 g/dL (2.5-4.5) H 08/13/17 03:20 Albumin/Globulin Ratio 0.5 Ratio (1.1-2.1) L 08/13/17 03:20 Carcinoembryonic Ag 2.6 ng/mL (0.0-3.0) 08/08/17 09:15 Specimen Type Catherized urine 08/13/17 00:26 Urine Color Yellow (YELLOW) 08/13/17 00:26 Urine Appearance Clear (CLEAR) 08/13/17 00:26 Urine pH 5.0 (5.0 - 8.0) 08/13/17 00:26 Ur Specific [place] 1.010 (1.000-1.030) 08/13/17 00:26 Urine Protein 2+ (NEGATIVE) 08/13/17 00:26 Urine Glucose (UA) 4+ (NEGATIVE) 08/13/17 00:26 Urine Ketones Negative (NEGATIVE) 08/13/17 00:26 Urine Occult Blood 2+ (NEGATIVE) 08/13/17 00:26 Urine Nitrite Negative (NEGATIVE) 08/13/17 00:26 Urine Bilirubin Negative (NEGATIVE) 08/13/17 00:26 Urine Urobilinogen Normal (NORMAL) 08/13/17 00:26 Ur Leukocyte Esterase Negative (NEGATIVE) 08/13/17 00:26 Urine RBC Rare /HPF (NONE SEEN) 08/13/17 00:26 Urine WBC None seen /HPF (NONE SEEN) 08/13/17 00:26 Ur Squamous Epith Cells Rare /HPF (NEGATIVE) 08/13/17 00:26 Amorphous Sediment 1+ /HPF (NEGATIVE) 08/13/17 00:26 Urine Bacteria Negative /HPF (NEGATIVE) 08/13/17 00:26 Urine Mucus Few /HPF (NEGATIVE) 08/04/17 21:04 Ur Culture Indicated? No/not indicated 08/13/17 00:26 Vancomycin Trough 7.7 ug/mL (15-20) L 08/13/17 09:18 Influenza Type A (PCR) Negative (NEGATIVE) 08/04/17 16:31 Influenza Type B (PCR) Negative (NEGATIVE) 08/04/17 16:31 S. pyogenes (TEM-PCR) Not detected (NOT DETECT) 08/04/17 16:31 Tissue Pathology To follow 08/07/17 10:24 Blood Type O POSITIVE 08/07/17 09:03 Antibody Screen Negative 08/07/17 09:03 Crossmatch See Detail 08/07/17 09:03 - Plan (1) Acute appendicitis Status: Acute Qualifiers: Acute appendicitis type: unspecified acute appendicitis type Qualified Code (s): K35.80 - Unspecified acute appendicitis Plan: SURGICAL CONSULT FOR APPENDECTOMY, CONTINUE TO MONITOR (2) Pneumonia Status: Acute Qualifiers: Pneumonia type: due to Klebsiella pneumoniae Laterality: right Lung location: lower lobe of lung Qualified Code(s): J15.0 - Pneumonia due to Klebsiella pneumoniae Plan: CONTINUE VANCOMYCIN, CONTINUE ZOSYN, CONTINUE RESPIRATORY TX AND SUPPLEMENTAL OXYGEN, CONTINUE TO MONITOR (3) Anemia Status: Acute Qualifiers: Anemia type: iron deficiency Iron deficiency anemia type: chronic blood loss Qualified Code(s): D50.0 - Iron deficiency anemia secondary to blood loss (chronic) Plan: TRANSFUSED TWO UNITS OF PACKED RED BLOOD CELLS THROUGHOUT THE NIGHT, MONITOR H&H Q4H, CONTINUE TO MONITOR (4) Septic arthritis of elbow, left Status: Acute Qualifiers: Septic arthritis organism: due to unspecified organism Qualified Code(s): M00.9 - Pyogenic arthritis, unspecified Plan: CONTINUE VANCOMYCIN, CONTINUE ZOSYN, CONTINUE TO MONITOR (5) Protein deficiency Status: Acute Plan: TPN, CONTINUE TO MONITOR (6) Generalized weakness Status: Acute Plan: NORMAL SALINE AT 150ML/HR WITH 1 AMP BICARB TO EACH LITER OF IVF, CONTINUE TO MONITOR (7) Body aches Status: Acute Plan: TAMIFLU, CONTINUE TO MONITOR (8) Hypertension Status: Chronic Qualifiers: Hypertension type: essential hypertension Plan: CATAPRZARIA PATCHBENNIEZAAR, CONTINUE TO MONITOR (9) Diabetes mellitus type 1 Status: Chronic Qualifiers: Diabetes mellitus complication status: without complication Qualified Code( s): E10.9 - Type 1 diabetes mellitus without complications Plan: CONTINUE TOUJEO, CONTINUE HUMALOG, CONTIUE TO MONITOR OTBS
[2017-08-13] MEDS ORDERED: LACRI-LUBE S.O.P. AFFEYE SCH (21:00)
[2017-08-13] MEDS: COLACE CAP 100 MG PO SCH (21:04)
[2017-08-13] MEDS: TOUJEO SOLOSTAR PEN SC SCH (21:09)
--- NOTE | 2017-08-13 21:28 | PCM.PROG ---
Progress Note - Progress Note for Day of Date: 08/11/17 - Subjective Subjective: IS STATUS POST APPENDECTOMY AND IS ALSO BEING TREATED FOR PNEUMONIA. TODAY, HE IS ALERT AND ORIENTED, LYING IN BED ON MORNING ROUNDS. HE CONTINUES WITH COMPLAINTS OF GENERALIZED WEAKNESS, ABDOMINAL PAIN, AND INCREASING SHORTNESS OF BREATH. HE ALSO CONTINUES WITH LEFT ELBOW PAIN AND BILATERAL LEG PAIN. ON EXAMINATION, BILATERAL LUNGS CONTINUE WITH RHONCHI AND WHEEZING THROUGHOUT. HE IS CURRENTLY UTILIZING OXYGEN VIA NASAL CANNULA AT 2L/ MIN. ABDOMEN IS ROUND, SOFT, AND NOTED WITH DIFFUSE TENDERNESS TO PALPATION. NORMAL BOWEL SOUNDS NOTED IN ALL QUADRANTS. SURGICAL DRESSINGS NOTED TO ABDOMEN WITH NO DRAINAGE NOTED. THERE IS NORMAL RANGE OF MOTION TO ALL EXTREMITIES. HIS VITALS THIS MORNING ARE 97.7-100-24-96%-142/76. HE HAS BEEN AFEBRILE THROUGHOUT THE NIGHT. LABS WERE OBTAINED THIS MORNING. ABNORMAL LAB VALUES INCLUDE THE FOLLOWING: WBC 12.1, RBC 3.44, HGB 8.8, HCT 25.6, PLATELET COUNT 551, SODIUM 130 , CHLORIDE 96, GLUCOSE 402, CALCIUM 7.5, ALBUMIN 2.2. WE OBTAINED A CHEST XRAY TODAY. IT REPORTED FINDINGS CONSISTENT WITH MULTIFOCAL PNEUMONIA SLIGHTLY INCREASED IN THE RIGHT LUNG BASE AND UNCHANGED ELSEWHERE. TODAY, WE WILL CONTINUE WITH THE PNEUMONIA PATHWAY, TPN, ALBUMIN, AND PHYSICAL THERAPY. WE WILL CHANGE IV FLUIDS BACK TO NORMAL SALINE AND ORDER FOR PHYSICAL THERAPY TO AMBULATE PATIENT. WE PLAN TO FOLLOW UP WITH AM LABS AND CONTINUE TO MONITOR PATIENT. - Past Medical Family Social History Past Med/Fam/Surg Hx: No changes since H&P Allergies: Allergies codeine Allergy (Verified 07/30/17 02:52) morphine Allergy (Verified 07/30/17 02:52) - Review of Systems ROS: Changes notes (describe) (as mentioned above Pt had to be intubated because of resperatory failure from the pneumonia ) - Vital Signs and I&O's Vital Signs: Temperature 98 F Pulse Rate [Right Brachial] 124 Pulse Rate 79 Respiratory Rate 45 Blood Pressure [Right Arm] 139/80 Blood Pressure [Left Arm] 132/69 Blood Pressure [Left Radial 160/102 Artery] Blood Pressure 137/70 O2 Sat by Pulse Oximetry 100 Intake and Output: Intake & Output 08/11/17 08/12/17 08/13/17 08/14/17 11:59 11:59 11:59 11:59 Intake Total 5840 3937 3382 605 Output Total 6813 1342 7030 Balance 2240 2212 -313 165 - Physical Exam Oriented: Normal Eyes: Normal Ear: Normal Nose: Normal Throat: Normal Respiratory: Generalized, Wheezes, Rhonchi (bilateral rhonchi) Cardiovascular: Tachycardia. negative: S3, S4, Murmur : Normal Auscultation: Bowel Sounds: Normal Palpation: Normal Tenderness: Diffuse Skin: Normal Musculoskeletal: Left, Elbow, Swelling, Tender Psychiatric: Normal Mood Description: Calm Affect: Normal Speech Pattern: Clear, Appropriate - Laboratory and Diagnostics Result Diagrams: 08/13/17 03:20 08/13/17 09:18 Labs: 08/13/17 10:00 Sputum - Expectorated Sputum - Final 08/04/17 21:04 Urine,Clean Catch Urine Culture - Final Staphylococcus Aureus 08/04/17 17:00 Blood Blood Culture - Final Klebsiella Pneumoniae 08/04/17 16:55 Blood Blood Culture - Final Klebsiella Pneumoniae Laboratory WBC 30.1 X10^3/uL (3.6-10.0) H* D 08/13/17 03:20 RBC 4.22 X10^6/uL (4.7-6.0) L 08/13/17 03:20 Hgb 10.5 g/dL (13.5-18.0) L 08/13/17 03:20 Hct 31.7 % (42.0-54.0) L 08/13/17 03:20 MCV 75.3 fL (80.0-100.0) L 08/13/17 03:20 MCH 24.8 pg (27.0-34.0) L 08/13/17 03:20 MCHC 33.0 g/dL (33.0-35.0) 08/13/17 03:20 RDW 21.7 % (11.6-16.5) H 08/13/17 03:20 Plt Count 842 X10^3/uL (150.0-450.0) H 08/13/17 03:20 Plt Count Comment Increased (ADEQUATE) 08/13/17 03:20 MPV 6.9 fL (7.4-11.0) L 08/13/17 03:20 Neut % 94.3 % (42.0-75.0) H 08/13/17 03:20 Lymph % 2.2 % (21.0-51.0) L 08/13/17 03:20 [place]eller % 2.1 % (0.0-13.0) 08/13/17 03:20 Eos % 0.0 % (0.9-2.9) L 08/13/17 03:20 Baso % 1.4 % (0.2-1.0) H 08/13/17 03:20 Neut # 28.4 x10^3/uL (2.2-4.8) H 08/13/17 03:20 Lymph # 0.7 X10^3/uL (1.3-2.9) L 08/13/17 03:20 [place]eller # 0.6 x10^3/uL (0.3-0.8) 08/13/17 03:20 Eos # 0.0 x10^3/uL (0.0-0.2) 08/13/17 03:20 Baso # 0.4 X10^3/uL (0.0-0.1) H 08/13/17 03:20 Absolute Nucleated RBC 0.0 /100WBC 08/13/17 03:20 Total Counted 100 08/13/17 03:20 Neutrophils % (Manual) 97 % (39-76) H 08/13/17 03:20 Band Neutrophils % 5 % (0-10) 08/06/17 05:52 Lymphocytes % (Manual) 2 % (13-43) L 08/13/17 03:20 Monocytes % (Manual) 1 % (4-9) L 08/13/17 03:20 Giant Platelets Few 08/09/17 05:20 Plt Morphology Comment Normal (NORMAL) 08/13/17 03:20 RBC Morphology Abnormal (NORMAL) 08/13/17 03:20 Hypochromasia Slight A 08/13/17 03:20 Anisocytosis 1+ A 08/13/17 03:20 Microcytosis 1+ A 08/07/17 06:40 Ovalocytes 1+ A 08/10/17 05:45 ESR 91 MM/HOUR (0-15) H 08/05/17 05:55 INR Target Range - 08/12/17 12:20 INR 1.18 (0.8-1.3) 08/12/17 12:20 PTT 51.2 SECONDS (22.9-36.5) H 08/13/17 17:58 PTT Comment - 08/13/17 17:58 D-Dimer 2870 ng/mL (0-400) H* 08/12/17 05:10 Sample Site Right brachial 08/13/17 11:09 ABG pH 7.480 (7.35-7.45) H 08/13/17 11:09 ABG pCO2 37.0 mmHg (35.0-45.0) 08/13/17 11:09 ABG pO2 89.0 mmHg (80.0-100.0) 08/13/17 11:09 ABG HCO3 27.6 mmol/L (22-26) H 08/13/17 11:09 ABG O2 Saturation 97.0 % (90-100) 08/13/17 11:09 ABG Base Excess 4.0 mmol/L (-2.0-2.0) H 08/13/17 11:09 Wang Test Na 08/13/17 11:09 A-a Gradient 293.0 mmHg 08/13/17 11:09 FiO2 60.000 08/13/17 11:09 Blood Gas Comments Les well aw 08/13/17 11:09 Sodium 134 mmol/L (136-145) L 08/13/17 03:20 Corrected Sodium 139 mmol/L (136-145) 08/13/17 03:20 Potassium 4.9 mmol/L (3.5-5.1) 08/13/17 03:20 Chloride 98 mmol/L (98-107) 08/13/17 03:20 Carbon Dioxide 26.0 mmol/L (21-32) 08/13/17 03:20 BUN 21 mg/dL (7-18) H 08/13/17 03:20 Creatinine 1.18 mg/dL (0.70-1.30) 08/13/17 09:18 Est GFR (MDRD) Af Amer > 60 (>60) 08/13/17 03:20 Est GFR (MDRD) Non-Af > 60 (>60) 08/13/17 03:20 Glucose 319 mg/dL (65-99) H 08/13/17 03:20 POC Glucose (mg/dL) 189 mg/dL (65-99) H 08/13/17 20:32 Lactic Acid 1.1 mmol/L (0.4-2.0) 08/07/17 19:27 Uric Acid 4.5 mg/dL (3.5-7.2) 08/05/17 05:55 Calcium 8.2 mg/dL (8.5-10.1) L 08/13/17 03:20 Corrected Calcium 9.3 mg/dL (8.5-10.1) 08/13/17 03:20 Magnesium 1.7 mg/dL (1.7-2.9) 08/08/17 09:15 Total Bilirubin 0.90 mg/dL (0.2-1.0) 08/13/17 03:20 AST 30 Units/L (15-37) 08/13/17 03:20 ALT 33 Units/L (12-78) 08/13/17 03:20 Alkaline Phosphatase 240 Units/L (46-116) H 08/13/17 03:20 Creatine Kinase 95 Units/L (39-308) 08/12/17 01:05 CK-MB (CK-2) 1.7 ng/mL (0-4.0) 08/12/17 01:05 CK/CKMB % Calc 1.8 % (<4) 08/12/17 01:05 Troponin I 0.03 ng/mL (0-1.5) 08/12/17 01:05 C-Reactive Protein 234.60 mg/L (0-3.0) H 08/05/17 05:55 Total Protein 7.9 g/dL (6.4-8.2) 08/13/17 03:20 Albumin 2.6 g/dL (3.4-5.0) L 08/13/17 03:20 Globulin 5.3 g/dL (2.5-4.5) H 08/13/17 03:20 Albumin/Globulin Ratio 0.5 Ratio (1.1-2.1) L 08/13/17 03:20 Carcinoembryonic Ag 2.6 ng/mL (0.0-3.0) 08/08/17 09:15 Specimen Type Catherized urine 08/13/17 00:26 Urine Color Yellow (YELLOW) 08/13/17 00:26 Urine Appearance Clear (CLEAR) 03/07/18 00:26 Urine pH 5.0 (5.0 - 8.0) 08/13/17 00:26 Ur Specific [place] 1.010 (1.000-1.030) 08/13/17 00:26 Urine Protein 2+ (NEGATIVE) 08/13/17 00:26 Urine Glucose (UA) 4+ (NEGATIVE) 08/13/17 00:26 Urine Ketones Negative (NEGATIVE) 08/13/17 00:26 Urine Occult Blood 2+ (NEGATIVE) 08/13/17 00:26 Urine Nitrite Negative (NEGATIVE) 08/13/17 00:26 Urine Bilirubin Negative (NEGATIVE) 08/13/17 00:26 Urine Urobilinogen Normal (NORMAL) 08/13/17 00:26 Ur Leukocyte Esterase Negative (NEGATIVE) 08/13/17 00:26 Urine RBC Rare /HPF (NONE SEEN) 08/13/17 00:26 Urine WBC None seen /HPF (NONE SEEN) 08/13/17 00:26 Ur Squamous Epith Cells Rare /HPF (NEGATIVE) 08/13/17 00:26 Amorphous Sediment 1+ /HPF (NEGATIVE) 08/13/17 00:26 Urine Bacteria Negative /HPF (NEGATIVE) 08/13/17 00:26 Urine Mucus Few /HPF (NEGATIVE) 08/04/17 21:04 Ur Culture Indicated? No/not indicated 08/13/17 00:26 Vancomycin Trough 7.7 ug/mL (15-20) L 08/13/17 09:18 Influenza Type A (PCR) Negative (NEGATIVE) 08/04/17 16:31 Influenza Type B (PCR) Negative (NEGATIVE) 08/04/17 16:31 S. pyogenes (TEM-PCR) Not detected (NOT DETECT) 08/04/17 16:31 Tissue Pathology To follow 08/07/17 10:24 Blood Type O POSITIVE 08/07/17 09:03 Antibody Screen Negative 08/07/17 09:03 Crossmatch See Detail 08/07/17 09:03 - Plan (1) Acute appendicitis Status: Acute Qualifiers: Acute appendicitis type: unspecified acute appendicitis type Qualified Code (s): K35.80 - Unspecified acute appendicitis Plan: STATUS POST APPENDECTOMY, CONTINUE TO MONITOR (2) Pneumonia Status: Acute Qualifiers: Pneumonia type: due to Klebsiella pneumoniae Laterality: right Lung location: lower lobe of lung Qualified Code(s): J15.0 - Pneumonia due to Klebsiella pneumoniae Plan: CONTINUE VANCOMYCIN, CONTINUE ZOSYN, CONTINUE RESPIRATORY TX AND SUPPLEMENTAL OXYGEN, CONTINUE TO MONITOR (3) Anemia Status: Acute Qualifiers: Anemia type: iron deficiency Iron deficiency anemia type: chronic blood loss Qualified Code(s): D50.0 - Iron deficiency anemia secondary to blood loss (chronic) Plan: CONTINUE TO MONITOR H&H (4) Septic arthritis of elbow, left Status: Acute Qualifiers: Septic arthritis organism: due to unspecified organism Qualified Code(s): M00.9 - Pyogenic arthritis, unspecified Plan: CONTINUE VANCOMYCIN, CONTINUE ZOSYN, CONTINUE TO MONITOR (5) Protein deficiency Status: Acute Plan: TPN, CONTINUE TO MONITOR (6) Generalized weakness Status: Acute Plan: NORMAL SALINE AT 150ML/HR WITH 1 AMP BICARB TO EACH LITER OF IVF, CONTINUE TO MONITOR (7) Body aches Status: Acute Plan: CONTINUE TO MONITOR (8) Hypertension Status: Chronic Qualifiers: Hypertension type: essential hypertension Plan: CATAPRES PATCH, COZAAR, CONTINUE TO MONITOR (9) Diabetes mellitus type 1 Status: Chronic Qualifiers: Diabetes mellitus complication status: without complication Qualified Code( s): E10.9 - Type 1 diabetes mellitus without complications Plan: CONTINUE TOUJEO, CONTINUE HUMALOG, CONTIUE TO MONITOR OTBS
[2017-08-14] MEDS: CLINIMIX 5 %/15 % 1,000 ML with MVI INJ (ADULT) 10 ML, TRACE ELEMENTS INJ 10 ML, DRUG F... IV SCH ×4 (00:22)
[2017-08-14] MEDS: TORADOL 30 MG VIAL IVP SCH ×2 (00:38→07:50)
[2017-08-14] MEDS: DIPRIVAN PREMIX 1 GM IV 1,000 MG/100 ML VIAL IV PRN ×2 (02:58→11:10)
[2017-08-14 05:36] LABS: BASOPHILS # (AUTO) 0.1 X10^3/uL (0.0-0.1); BASOPHILS % (AUTO) 0.4 % (0.2-1.0); HEMATOCRIT 21.8 % (42.0-54.0); HEMOGLOBIN 7.5 g/dL (13.5-18.0); LYMPHOCYTES # (AUTO) 0.7 X10^3/uL (1.3-2.9); LYMPHOCYTES % (AUTO) 3.5 % (21.0-51.0); MEAN CORPUSCULAR HEMOGLOBIN 25.4 pg (27.0-34.0); MEAN CORPUSCULAR HGB CONC 34.4 g/dL (33.0-35.0); MEAN PLATELET VOLUME 7.1 fL (7.4-11.0); MONOCYTES # (AUTO) 0.7 x10^3/uL (0.3-0.8); MONOCYTES % (AUTO) 3.3 % (0.0-13.0); NEUTROPHILS # (AUTO) 19.7 x10^3/uL (2.2-4.8); NEUTROPHILS % (AUTO) 92.8 % (42.0-75.0); PLATELET COUNT 624 X10^3/uL (150.0-450.0); RED BLOOD COUNT 2.94 X10^6/uL (4.7-6.0); RED CELL DISTRIBUTION WIDTH 21.6 % (11.6-16.5); WHITE BLOOD COUNT 21.2 X10^3/uL (3.6-10.0)
[2017-08-14 05:49] LABS: ALANINE AMINOTRANSFERASE 20 Units/L (12-78); ALBUMIN 2.2 g/dL (3.4-5.0); ALKALINE PHOSPHATASE 135 Units/L (46-116); ASPARTATE AMINO TRANSFERASE 16 Units/L (15-37); BLOOD UREA NITROGEN 36 mg/dL (7-18); CALCIUM 7.8 mg/dL (8.5-10.1); CARBON DIOXIDE 25.5 mmol/L (21-32); CHLORIDE 101 mmol/L (98-107); COR CA(FOR HYPOALB) 9.2 mg/dL (8.5-10.1); COR NA(FOR HYPERGLY) 141 mmol/L (136-145); CREATININE 1.35 mg/dL (0.70-1.30); SODIUM 137 mmol/L (136-145); TOTAL PROTEIN 6.6 g/dL (6.4-8.2); eGFR BLACK RACES > 60 (>60); eGFR NON BLACK RACES > 60 (>60)
[2017-08-14 05:58] LABS: BAND NEUTROPHILS % 6 % (0-10)
[2017-08-14 05:59] LABS: ANISOCYTOSIS 1+; HYPOCHROMASIA 1+; PLATELET MORPHOLOGY COMMENT NORMAL (NORMAL); TARGET CELLS PRESENT
[2017-08-14] MEDS: CARDIZEM INJ 125 MG VIAL 125 MG in NS 100 ML IV 100 ML IV PRN (06:20)
[2017-08-14 06:28] LABS: ABG BASE EXCESS 3.3 mmol/L (-2.0-2.0); ABG HCO3 26.8 mmol/L (22-26)
[2017-08-14 06:29] LABS: ABG ALLEN TEST POS
[2017-08-14] MEDS: KLONOPIN TAB 1 MG PO SCH (06:29)
[2017-08-14] MEDS: ZOSYN VIAL 3.375 GM 3.375 GM in NS 100 ML IV 100 ML IV SCH (06:34)
[2017-08-14] MEDS: SOLU-Medrol 40 MG VIAL IVP SCH (06:34)
[2017-08-14] MEDS: HumaLOG SC SCH (06:48)
--- NOTE | 2017-08-14 07:17 | RAD ---
HISTORY: Follow-up respiratory failure Study: Chest AP portable Comparison: 08/13/2017 Findings: There is an endotracheal tube in good position. There is a right-sided port in good position. There i s a left-sided IJ line with its tip in the superior vena cava. The heart is within normal limits in s ize. No congestive heart failure is noted. There is a left pneumothorax present which does not appear significantly changed from that noted on 08/13/2017 6:56 p.m.. Diffuse bilateral alveolar infiltrate s are again identified not significantly changed. No pleural effusions are identified. The bony thora x is unremarkable. IMPRESSION: Moderately large left pneumothorax not significantly changed from the prior examination No change bilateral alveolar infiltrates Reported By:
[2017-08-14] MEDS: HEPARIN SODIUM IN D5W 25,000 UNITS/500 ML BAG IV PRN (07:50)
[2017-08-14] MEDS: CHECK PATCH XX SCH (08:51)
[2017-08-14] MEDS: DUONEB 0.5 MG/3 MG NEB SCH ×2 (08:57→13:41)
[2017-08-14] MEDS: ALBUMIN HUMAN 25%- 100ML 100 ML IV SCH (09:32)
[2017-08-14] MEDS: COZAAR PO SCH (10:49)
[2017-08-14] MEDS: K-DUR TAB 20 MEQ PO SCH (10:50)
[2017-08-14] MEDS: MILK OF MAGNESIA PO SCH (10:50)
[2017-08-14] MEDS: ZyrTEC TAB 10 MG PO SCH (10:50)
[2017-08-14] MEDS: PROTONIX TAB 40 MG PO SCH (10:50)
[2017-08-14] MEDS: PEPCID TAB 20 MG PO SCH (10:50)
[2017-08-14 10:58] LABS: ABG BASE EXCESS 2.8 mmol/L (-2.0-2.0); ABG HCO3 26.1 mmol/L (22-26)
[2017-08-14 10:59] LABS: ABG ALLEN TEST POS
[2017-08-14] MEDS: ATIVAN INJ 2 MG VIAL IVP PRN (11:27)
[2017-08-14] MEDS: DEMEROL INJ IVP PRN (11:28)
[2017-08-14] MEDS ORDERED: STERILE WATER IRRIGATION IR ONE (11:35)
[2017-08-14] MEDS ORDERED: XANAX PO ONE (12:26)
[2017-08-14] MEDS ORDERED: XANAX ONE (12:26)
--- NOTE | 2017-08-14 12:44 | RAD ---
HISTORY: Chest tube placement Study: Single-view chest Comparison: Earlier the same day Findings: There has been interval placement of a left-sided thoracostomy tube with a persistent but reduced vol ume left-sided pneumothorax of 10-20%. There is otherwise stable satisfactory positioning of ET tube, right-sided Port-A-Cath, and left IJ central venous line. The trachea is midline. The cardiac silho uette is unremarkable. Persistent and overall unchanged bilateral diffuse airspace disease is noted. The bony thorax is grossly unremarkable. IMPRESSION: Satisfactory thoracostomy tube placement but with residual left-sided pneumothorax. Persistent bilate ral airspace consolidation. Reported By:
[2017-08-14 13:08] VITALS: BP 111/57
[2017-08-24] MEDS ORDERED: XYLOCAINE 2 % (PLAIN) ONE (15:03)
[2017-08-24] MEDS ORDERED: QUELICIN (OR ANECTINE) ONE (15:03)
[2017-08-24] MEDS ORDERED: ZOFRAN INJ 4 MG VIAL ONE (15:03)
[2017-08-24] MEDS ORDERED: NEOSTIGMINE INJ ONE (15:03)
[2017-08-24] MEDS ORDERED: SUPRANE IN ONE (15:03)
[2017-08-24] MEDS ORDERED: ROBINUL ONE (15:03)
[2017-08-24] MEDS ORDERED: VERSED ONE (15:03)
[2017-08-24] MEDS ORDERED: NORCURON INJ 10 MG VIAL ONE (15:03)
[2017-08-24] MEDS ORDERED: DIPRIVAN VIAL ONE (15:03)
== END 2017-08-14 12:50 | disposition short-term general hospital (02) | DRG 341 ==
LOC: UNDOADMOB 12:31 → MED/SURG 12:31 → OBSVTOIN 13:52 → MED/SURG 13:52 → ICU 08-07 11:05
PROVIDERS: ADMIT Internal Medicine; ATTEND Internal Medicine
PROC: 0DTJ4ZZ Resection of Appendix, Percutaneous Endoscopic Approach (ICD-10-PCS; principal; 2017-08-07 09:00)
PROC: 30233N1 Transfusion of Nonautologous Red Blood Cells into Peripheral Vein, Percutaneous Approach (ICD-10-PCS; 2017-08-08)
PROC: 30233N1 Transfusion of Nonautologous Red Blood Cells into Peripheral Vein, Percutaneous Approach (ICD-10-PCS; 2017-08-08)
PROC: 0BH17EZ Insertion of Endotracheal Airway into Trachea, Via Natural or Artificial Opening (ICD-10-PCS; 2017-08-13)
PROC: 5A1935Z Respiratory Ventilation, Less than 24 Consecutive Hours (ICD-10-PCS; 2017-08-13)
PROC: 0W9B00Z Drainage of Left Pleural Cavity with Drainage Device, Open Approach (ICD-10-PCS; 2017-08-14)
DX: K35.80 Unspecified acute appendicitis (principal); J15.0 Pneumonia due to Klebsiella pneumoniae; M00.9 Pyogenic arthritis, unspecified; E46 Unspecified protein-calorie malnutrition; J93.83 Other pneumothorax; N39.0 Urinary tract infection, site not specified; R50.9 Fever, unspecified; M79.605 Pain in left leg; M79.603 Pain in arm, unspecified; R53.1 Weakness; E86.0 Dehydration; K31.84 Gastroparesis; E10.65 Type 1 diabetes mellitus with hyperglycemia; I10 Essential (primary) hypertension; R06.02 Shortness of breath; I88.0 Nonspecific mesenteric lymphadenitis; D50.0 Iron deficiency anemia secondary to blood loss (chronic); R26.89 Other abnormalities of gait and mobility; B95.61 Methicillin susceptible Staphylococcus aureus infection as the cause of diseases classified elsewhere; R06.03 Acute respiratory distress; Y95 Nosocomial condition
CPT/HCPCS: 36415; 36430; 36556; 36600; 71045; 71275; 73070; 74177; 80053; 80202; 81001; 82378; 82550; 82553; 82565; 82803; 83605; 83735; 84132; 84484; 84550; 85014; 85018; 85025; 85378; 85610; 85652; 85730; 86140; 86701; 86850; 86900; 86901; 86922; 87040; 87070; 87077; 87086; 87088; 87186; 87205; 87502; 87651; 93005; 93970; 94002; 94003; 94640; 94660; A4216; A4217; A4222; A4618; A7030; B5200; G9035; P9016; P9047; J0330; J1200; J1644; J1815; J1817; J1885; J1956; J2001; J2060; J2175; J2250; J2405; J2543; J2550; J2710; J2920; J3010; J3370; J3490; J7042; J7620

== ENCOUNTER 2017-10-28 17:37 | Inpatient (IN) ==
[2017-10-28] MEDS ORDERED: NS 1/2 1000 ML IV 1,000 ML IV ONE (18:13)
[2017-10-28] MEDS: NS 1/2 1000 ML IV 1,000 ML IV SCH (18:26)
[2017-10-28] MEDS: ZOSYN VIAL 3.375 GRAMS 3.375 G in NS 100 ML IV + SPIKE MINIBAG* 100 ML IV SCH ×2 (18:30→21:16)
[2017-10-28] MEDS ORDERED: SALINE 3% 15 ML NEB TX ONE (18:31)
[2017-10-28] MEDS ORDERED: ZOFRAN INJ 4 MG VIAL ONE (18:33)
[2017-10-28] MEDS ORDERED: SALINE 3% 15 ML NEB TX NEB ONE ×2 (18:35→19:00)
[2017-10-28] MEDS ORDERED: ZOFRAN INJ 4 MG VIAL IVP PRN (18:38)
[2017-10-28] MEDS ORDERED: NORMODYNE INJ 20 MG VIAL ONE (18:43)
[2017-10-28] MEDS: NORMODYNE INJ 20 MG VIAL IV PRN (18:45)
[2017-10-28 18:50] LABS: BASOPHILS # (AUTO) 0.1 X10^3/uL (0.0-0.1); BASOPHILS % (AUTO) 0.6 % (0.2-1.0); EOSINOPHILS % (AUTO) 0.1 % (0.9-2.9); HEMATOCRIT 25.7 % (42.0-54.0); HEMOGLOBIN 8.7 g/dL (13.5-18.0); LYMPHOCYTES # (AUTO) 1.1 X10^3/uL (1.3-2.9); LYMPHOCYTES % (AUTO) 8.7 % (21.0-51.0); MEAN CORPUSCULAR HEMOGLOBIN 24.8 pg (27.0-34.0); MEAN CORPUSCULAR HGB CONC 33.9 g/dL (33.0-35.0); MEAN CORPUSCULAR VOLUME 73.2 fL (80.0-100.0); MEAN PLATELET VOLUME 7.3 fL (7.4-11.0); MONOCYTES # (AUTO) 0.4 x10^3/uL (0.3-0.8); MONOCYTES % (AUTO) 3.1 % (0.0-13.0); NEUTROPHILS # (AUTO) 11.1 x10^3/uL (2.2-4.8); NEUTROPHILS % (AUTO) 87.5 % (42.0-75.0); PLATELET COUNT 468 X10^3/uL (150.0-450.0); RED BLOOD COUNT 3.51 X10^6/uL (4.7-6.0); RED CELL DISTRIBUTION WIDTH 16.7 % (11.6-16.5); WHITE BLOOD COUNT 12.7 X10^3/uL (3.6-10.0)
[2017-10-28 18:57] LABS: PLATELET MORPHOLOGY COMMENT NORMAL (NORMAL)
[2017-10-28 18:58] LABS: ALANINE AMINOTRANSFERASE 11 Units/L (12-78); ALBUMIN 2.5 g/dL (3.4-5.0); ALKALINE PHOSPHATASE 150 Units/L (46-116); ASPARTATE AMINO TRANSFERASE 8 Units/L (15-37); BLOOD UREA NITROGEN 16 mg/dL (7-18); CALCIUM 8.7 mg/dL (8.5-10.1); CARBON DIOXIDE 25.4 mmol/L (21-32); CHLORIDE 90 mmol/L (98-107); COR CA(FOR HYPOALB) 9.9 mg/dL (8.5-10.1); COR NA(FOR HYPERGLY) 132 mmol/L (136-145); CREATININE 1.26 mg/dL (0.70-1.30); HYPOCHROMASIA SLIGHT; MICROCYTOSIS SLIGHT; SODIUM 126 mmol/L (136-145); TOTAL PROTEIN 9.8 g/dL (6.4-8.2); eGFR NON BLACK RACES > 60 (>60)
[2017-10-28] MEDS ORDERED: MORPHINE SULFATE INJ 2 MG INJ IVP PRN (19:38)
[2017-10-28] MEDS ORDERED: POTASSIUM CHLORIDE LIQ 20 MEQ UDC PO PRN (19:40)
[2017-10-28] MEDS ORDERED: K-LYTE EFFERVESCENT PO PRN (19:40)
[2017-10-28] MEDS ORDERED: POTASSIUM CHL 60 MEQ/NS 0.45% 500 ML IV PRN (19:40)
[2017-10-28] MEDS ORDERED: POTASSIUM CHL 40 MEQ/NS 0.45% 500 ML IV PRN (19:40)
[2017-10-28] MEDS: NORCO 5/325 MG TAB PO PRN (20:05)
[2017-10-28] MEDS: MAGNESIUM SULFATE 1 GRAM/100 mL PREMIX 1 GM/100 ML BAG IV PRN ×4 (20:05→23:37)
[2017-10-28] MEDS ORDERED: VANCOMYCIN HCL 1 GM VIAL 1 G in D5W 250 ML IV 250 ML IV SCH (20:16)
[2017-10-28] MEDS: DEMEROL INJ IVP PRN (20:35)
[2017-10-28] MEDS: XOPENEX 1.25 MG/3 ML NEBULE NEB SCH (20:36)
[2017-10-28] MEDS: ZOFRAN INJ 4 MG VIAL IVP PRN (20:36)
[2017-10-28] MEDS: ROBITUSSIN DM PO SCH (20:38)
[2017-10-28] MEDS: HumuLIN R SUBCUT PRN (20:42)
[2017-10-28] MEDS ORDERED: ONDANSETRON 8 MG PO PRN (20:54)
[2017-10-28] MEDS ORDERED: COMPAZINE PO PRN (20:54)
[2017-10-28] MEDS ORDERED: XOPENEX 1.25 MG/3 ML NEBULE NEB SCH (21:00)
[2017-10-28] MEDS ORDERED: PATIENT'S HOME MEDICATION (Famotidine [Pepcid] 40 MG) PO SCH (21:00)
[2017-10-28] MEDS ORDERED: VANCOMYCIN HCL 500 MG VIAL 500 MG in D5W 100 ML IV 100 ML IV SCH (21:00)
[2017-10-28] MEDS ORDERED: TOUJEO SOLOSTAR PEN SC SCH (21:00)
[2017-10-28] MEDS ORDERED: VANCOMYCIN HCL 1 GM VIAL ONE (21:33)
[2017-10-28] MEDS ORDERED: NS 250 ML IV 0 ML IV ONE (21:35)
[2017-10-28] MEDS ORDERED: ZOFRAN TAB 4 MG PO PRN (21:38)
[2017-10-28] MEDS: CATAPRES-TTS-3 TD SCH (21:43)
[2017-10-28] MEDS: PROTONIX TAB 40 MG PO SCH (21:45)
[2017-10-28] MEDS ORDERED: NS 100 ML IV + SPIKE MINIBAG* 100 ML IV ONE (21:51)
[2017-10-28] MEDS ORDERED: VANCOMYCIN HCL 500 MG VIAL ONE (21:51)
[2017-10-28] MEDS: K-RIDER 10 MEQ/NS 100 ML 10 MEQ/100 ML BAG IV PRN (23:36)
[2017-10-29] MEDS: ZOFRAN INJ 4 MG VIAL IVP PRN ×5 (00:36→22:05)
[2017-10-29] MEDS: K-RIDER 10 MEQ/NS 100 ML 10 MEQ/100 ML BAG IV PRN ×3 (00:36→02:52)
[2017-10-29] MEDS: DEMEROL INJ IVP PRN ×5 (03:38→22:05)
[2017-10-29] MEDS: NORCO 5/325 MG TAB PO PRN (04:36)
[2017-10-29] MEDS: ZOSYN VIAL 3.375 GRAMS 3.375 G in NS 100 ML IV + SPIKE MINIBAG* 100 ML IV SCH ×3 (05:10→22:03)
[2017-10-29] MEDS: HumuLIN R SUBCUT PRN ×4 (06:00→22:04)
--- NOTE | 2017-10-29 06:27 | RAD ---
Examination: AP chest History: SOB comparison 08/14/2017 Findings: Normal heart size. Mild diffuse increase in pulmonary density right base. No mass formation , cavitary lesion, pneumothorax or pleural fluid. A right IJ injection port extends to the cavoatrial junction. Impression: Nonspecific basal pulmonary densities without discrete process demonstrated. Specifically the cavitary lesions described on recent CT not definitely identified on this frontal chest projecti on. Reported By:
[2017-10-29] MEDS ORDERED: HumaLOG SC SCH (06:30)
[2017-10-29 06:43] LABS: ALANINE AMINOTRANSFERASE 18 Units/L (12-78); ALBUMIN 1.9 g/dL (3.4-5.0); ALKALINE PHOSPHATASE 201 Units/L (46-116); ASPARTATE AMINO TRANSFERASE 18 Units/L (15-37); BASOPHILS # (AUTO) 0.1 X10^3/uL (0.0-0.1); BASOPHILS % (AUTO) 0.3 % (0.2-1.0); BLOOD UREA NITROGEN 10 mg/dL (7-18); CALCIUM 7.8 mg/dL (8.5-10.1); CARBON DIOXIDE 25.6 mmol/L (21-32); CHLORIDE 92 mmol/L (98-107); COR CA(FOR HYPOALB) 9.5 mg/dL (8.5-10.1); COR NA(FOR HYPERGLY) 132 mmol/L (136-145); CREATININE 0.96 mg/dL (0.70-1.30); EOSINOPHILS % (AUTO) 0.1 % (0.9-2.9); HEMATOCRIT 23.5 % (42.0-54.0); HEMOGLOBIN 7.8 g/dL (13.5-18.0); LYMPHOCYTES # (AUTO) 1.4 X10^3/uL (1.3-2.9); LYMPHOCYTES % (AUTO) 5.8 % (21.0-51.0); MAGNESIUM 2.2 mg/dL (1.7-2.9); MEAN CORPUSCULAR HEMOGLOBIN 24.4 pg (27.0-34.0); MEAN CORPUSCULAR HGB CONC 33.2 g/dL (33.0-35.0); MEAN CORPUSCULAR VOLUME 73.3 fL (80.0-100.0); MEAN PLATELET VOLUME 7.6 fL (7.4-11.0); MONOCYTES # (AUTO) 1.1 x10^3/uL (0.3-0.8); MONOCYTES % (AUTO) 4.7 % (0.0-13.0); NEUTROPHILS # (AUTO) 21.1 x10^3/uL (2.2-4.8); NEUTROPHILS % (AUTO) 89.1 % (42.0-75.0); PLATELET COUNT 427 X10^3/uL (150.0-450.0); RED BLOOD COUNT 3.21 X10^6/uL (4.7-6.0); RED CELL DISTRIBUTION WIDTH 16.9 % (11.6-16.5); SODIUM 128 mmol/L (136-145); TOTAL PROTEIN 8.2 g/dL (6.4-8.2); eGFR NON BLACK RACES > 60 (>60)
[2017-10-29 06:47] LABS: WHITE BLOOD COUNT 23.7 X10^3/uL (3.6-10.0)
[2017-10-29 07:25] LABS: BAND NEUTROPHILS % 4 % (0-10); HYPOCHROMASIA SLIGHT; PLATELET MORPHOLOGY COMMENT NORMAL (NORMAL)
[2017-10-29] MEDS: NORMODYNE INJ 20 MG VIAL IV PRN ×4 (07:31→16:22)
[2017-10-29] MEDS ORDERED: NS 1/2 1000 ML IV 1,000 ML IV ONE (08:43)
[2017-10-29] MEDS: NS 1/2 1000 ML IV 1,000 ML IV SCH ×2 (08:47→22:08)
[2017-10-29] MEDS: ROBITUSSIN DM PO SCH ×4 (08:48→22:06)
[2017-10-29] MEDS: K-DUR TAB 20 MEQ PO SCH (08:50)
[2017-10-29] MEDS: PROTONIX TAB 40 MG PO SCH ×2 (08:50→22:06)
[2017-10-29] MEDS: PEPCID TAB 20 MG PO SCH ×2 (08:50→22:06)
[2017-10-29] MEDS: CHECK PATCH XX SCH ×2 (08:51→22:07)
[2017-10-29] MEDS: COZAAR PO SCH (08:51)
[2017-10-29] MEDS ORDERED: PEPCID TAB 20 MG PO SCH (09:00)
[2017-10-29] MEDS ORDERED: PATIENT'S HOME MEDICATION (Losartan Potassium [Losartan Potassium] 100 MG) PO SCH (09:00)
[2017-10-29] MEDS: VANCOMYCIN HCL 1 GM VIAL 1 G in D5W 250 ML IV 250 ML IV SCH ×2 (09:17→22:03)
[2017-10-29] MEDS: XOPENEX 1.25 MG/3 ML NEBULE NEB SCH ×4 (09:30→21:00)
[2017-10-29] MEDS ORDERED: PHARMACY CONSULT - TPN XX SCH (11:00)
[2017-10-29] MEDS: ALBUMIN HUMAN 25%- 100 ML 100 ML IV SCH (11:06)
[2017-10-29] MEDS ORDERED: NS 250 ML IV 250 ML IV ONE (11:54)
--- NOTE | 2017-10-29 13:44 | DR.UPDATE ---
H&P Update History and Physical Update: History and Physical reviewed and patient examined. Changes noted: Yes with the following: PRESENTED TO THE OFFICE TODAY WITH COMPLAINTS OF RIGHT SIDED ABDOMINAL PAIN, RIGHT LOWER BACK PAIN, NAUSEA, COUGH, AND SHORTNESS OF BREATH. EXAMINATION REVEALED TENDERNESS TO THE RLQ AND SUPRAPUBIC AREA. TENDERNESS TO THE LUMBER SPINE AND FACET JOINT NOTED WITH DECREASED FLEXION, EXTENTION, ROTATION, AND LATERAL BENDING. HE WAS SENT FOR AN OUTPATIENT ABD/PELVIS CT WITHOUT CONTRAST WHICH REVEALED MULTIPLE THICK-WALLED CAVITARY LESION SEEN IN THE VISUALIZED PORTION OF THE RIGHT LOWER LOBE, WITH THE LARGEST MEASURING APPROXIMATLY 2.9X1.9 CM. THE FINDINGS WERE NOT EVIDENT ON THE PRIOR EXAMINATIONS AND ARE PROBABLY INFECTIOUS IN NATURE. A 6MM INDETERMINATE NONCALCIFIED PULMONARY NODULE IS PRESNET IN THE LEFT LOWER LOBE. A CT OF THE CHEST, WITH IV CONTRAST IS RECOMMENEDE FOR FURTHER EVALUATION OF THE FINDINGS. WE PLANNED TO ADMIT PATIENT TO THE HOSPITAL ON THE PNEUMONIA PROTOCOL FOR FURTHER EVALUATION AND TREATMENT. ON ADMISSION, LABS WERE OBTAINED. ABNORMAL LAB VALUES INCLUDE THE FOLLOWING: WBC 12.7, RBC 3.51, HGB 8.7, HCT 25.7, PLT OCUNT 468, SODIUM 128, CHLORIDE 92, GLUCOSE 283, CALCIUM 7.8, ALK PHOS 201, ALBUMIN 1.9, GLOBULIN 6.3. WE STARTED HIM ON ZOSYN AND VANCOMYCIN. WE WILL FOLLOW UP WITH AM LABS AND WILL OBTAIN A CHEST CT WITH CONTRAST.
[2017-10-29 14:41] LABS: MAGNESIUM 1.9 mg/dL (1.7-2.9); PHOSPHORUS 2.3 mg/dL (2.6-4.7)
--- NOTE | 2017-10-29 15:39 | CT ---
HISTORY: Follow-up pneumonia Study: CT chest with contrast Comparison: 10/28/2017, 08/12/2017 Technique: Multiple axial images of the chest were obtained from the thoracic inlet to the upper abdo men after the administration of IV contrast. Dose reduction techniques including Automated Exposure Control (AEC) and adjustment of mA and kV were utilized. Findings: There is a right chest wall port terminating in the distal SVC. The heart and aorta are normal in siz e. The airways are patent. There is a persistent areas consolidation with central areas of cavitation in the posterior basal segment of the right lower lobe with some surrounding ground-glass nodularity . There is a stable 7 mm nodule in the left lung base. There is an additional areas cavitary opacity in the right upper lobe measuring 1.9 cm. Open no significant effusion or pneumothorax identified. Th e osseous structures appear intact. No acute findings are seen in the upper abdomen. IMPRESSION: 1. Consolidation with central areas of cavitation in right lower lobe suggesting cavitary pneumonia. Atypical infectious etiologies should be considered. Continued follow-up recommended to ensure full r esolution. There is an additional small area of consolidation/cavitation in the right upper lobe a st able 7 mm nodule in the left lower lobe. Reported By:
[2017-10-29] MEDS: PHENERGAN TAB 25 MG PO PRN (19:25)
[2017-10-29] MEDS: PHENERGAN INJ 25 MG IV PRN (20:30)
--- NOTE | 2017-10-29 20:45 | PCM.PROG ---
Progress Note - Progress Note for Day of Date: 10/29/17 - Subjective Subjective: WAS ADMITTED FOR TREATMENT OF PNEUMONIA. TODAY, HE IS ALERT AND ORIENTED, LYING IN BED ON MORNING ROUNDS. HE CONTINUES WITH A COUGH, SHORTNESS OF BREATH, AND LOWER BACK PAIN. ON EXAMINATION, BILATERAL LUNGS ARE NOTED WITH SCATTERED WHEEZING AND RHONCHI THROUGHOUT. ABDOMEN IS ROUND, SOFT, AND NON-TENDER WITH NORMAL BOWEL SOUNDS NOTED IN ALL QUADRANTS. HIS VITAL SIGNS TODAY ARE 97.0-81-28-100%-134/81. ABNORMAL LAB VALUES INCLUDE THE FOLLOWING: WBC 23.7, RBC 3.21, HGB 7.8, HCT 23.5, SODIUM 128, CHLORIDE 92, GLUCOSE 283, CALCIUM 7.8, ALK PHOS 201, ALBUMIN 1.9, PHOSPHORUS 2.3. A CHEST CT WAS OBTAINED TODAY. IT REVEALED CONSOLIDATION WITH CENTRAL AREAS OF CAVITATION IN RIGHT LOWER LOBE SUGGESTING CAVITARY PNEUMONIA. HE IS CURRENTLY RECEIVING IV ANTIBIOTICS AND RESPIRATORY TREATMENTS. TODAY, WE WILL START TPN AND ALBUMIN. OTHERWISE, WE WILL FOLLOW UP WITH AM LABS AND CONTINUE TO MONITOR PATIENT. - Past Medical Family Social History Past Med/Fam/Surg Hx: No changes since H&P Allergies: Allergies codeine Allergy (Verified 07/30/17 02:52) morphine Allergy (Verified 07/30/17 02:52) - Review of Systems ROS: No change since H&P - Vital Signs and I&O's Vital Signs: Temperature 98.2 F Pulse Rate [Apical] 91 Pulse Rate 130 Respiratory Rate 23 Blood Pressure [Right Arm] 198/100 Blood Pressure [Left Arm] 164/90 Blood Pressure [Left Radial 160/102 Artery] Blood Pressure 111/57 O2 Sat by Pulse Oximetry 100 Intake and Output: Intake & Output 10/27/17 10/28/17 10/29/17 10/30/17 11:59 11:59 11:59 11:59 Intake Total 2290 1176 Output Total 2550 1850 Balance -260 -674 - Physical Exam Oriented: Normal Eyes: Normal Ear: Normal Nose: Normal Throat: Normal Respiratory: Wheezes, Rhonchi Cardiovascular: Normal : Normal Auscultation: Bowel Sounds: Normal Palpation: Normal Tenderness: Normal Skin: Normal Musculoskeletal: Back:Lumbar, Tender Psychiatric: Normal Mood Description: Calm Affect: Normal Speech Pattern: Clear, Appropriate - Laboratory and Diagnostics Result Diagrams: 10/29/17 05:45 10/29/17 05:45 Labs: Laboratory WBC 23.7 X10^3/uL (3.6-10.0) H D 10/29/17 05:45 RBC 3.21 X10^6/uL (4.7-6.0) L 10/29/17 05:45 Hgb 7.8 g/dL (13.5-18.0) L 10/29/17 05:45 Hct 23.5 % (42.0-54.0) L 10/29/17 05:45 MCV 73.3 fL (80.0-100.0) L 10/29/17 05:45 MCH 24.4 pg (27.0-34.0) L 10/29/17 05:45 MCHC 33.2 g/dL (33.0-35.0) 10/29/17 05:45 RDW 16.9 % (11.6-16.5) H 10/29/17 05:45 Plt Count 427 X10^3/uL (150.0-450.0) 10/29/17 05:45 Plt Count Comment Adequate (ADEQUATE) 10/29/17 05:45 MPV 7.6 fL (7.4-11.0) 10/29/17 05:45 Neut % (Auto) 89.1 % (42.0-75.0) H 10/29/17 05:45 Lymph % (Auto) 5.8 % (21.0-51.0) L 10/29/17 05:45 [place] % (Auto) 4.7 % (0.0-13.0) 10/29/17 05:45 Eos % (Auto) 0.1 % (0.9-2.9) L 10/29/17 05:45 Baso % (Auto) 0.3 % (0.2-1.0) 10/29/17 05:45 Neut # (Auto) 21.1 x10^3/uL (2.2-4.8) H 10/29/17 05:45 Lymph # (Auto) 1.4 X10^3/uL (1.3-2.9) 10/29/17 05:45 [place] # (Auto) 1.1 x10^3/uL (0.3-0.8) H 10/29/17 05:45 Eos # (Auto) 0.0 x10^3/uL (0.0-0.2) 10/29/17 05:45 Baso # (Auto) 0.1 X10^3/uL (0.0-0.1) 10/29/17 05:45 Absolute Nucleated RBC 0.0 /100WBC 10/29/17 05:45 Total Counted 100 10/29/17 05:45 Neutrophils % (Manual) 85 % (39-76) H 10/29/17 05:45 Band Neutrophils % 4 % (0-10) 10/29/17 05:45 Lymphocytes % (Manual) 11 % (13-43) L 10/29/17 05:45 Plt Morphology Comment Normal (NORMAL) 10/29/17 05:45 RBC Morphology Abnormal (NORMAL) 10/29/17 05:45 Hypochromasia Slight A 10/29/17 05:45 Microcytosis Slight A 10/28/17 18:33 Sodium 128 mmol/L (136-145) L 10/29/17 05:45 Corrected Sodium 132 mmol/L (136-145) L 10/29/17 05:45 Potassium 3.6 mmol/L (3.5-5.1) 10/29/17 05:45 Chloride 92 mmol/L (98-107) L 10/29/17 05:45 Carbon Dioxide 25.6 mmol/L (21-32) 10/29/17 05:45 BUN 10 mg/dL (7-18) 10/29/17 05:45 Creatinine 0.96 mg/dL (0.70-1.30) 10/29/17 05:45 Est GFR (MDRD) Af Amer > 60 (>60) 10/29/17 05:45 Est GFR (MDRD) Non-Af > 60 (>60) 10/29/17 05:45 Glucose 283 mg/dL (65-99) H 10/29/17 05:45 POC Glucose (mg/dL) 269 mg/dL (65-99) H 10/29/17 16:09 Lactic Acid 0.7 mmol/L (0.4-2.0) 10/29/17 05:45 Calcium 7.8 mg/dL (8.5-10.1) L 10/29/17 05:45 Corrected Calcium 9.5 mg/dL (8.5-10.1) 10/29/17 05:45 Phosphorus 2.3 mg/dL (2.6-4.7) L 10/29/17 14:18 Magnesium 1.9 mg/dL (1.7-2.9) 10/29/17 14:18 Total Bilirubin 0.30 mg/dL (0.2-1.0) 10/29/17 05:45 AST 18 Units/L (15-37) 10/29/17 05:45 ALT 18 Units/L (12-78) 10/29/17 05:45 Alkaline Phosphatase 201 Units/L (46-116) H 10/29/17 05:45 Total Protein 8.2 g/dL (6.4-8.2) 10/29/17 05:45 Albumin 1.9 g/dL (3.4-5.0) L 10/29/17 05:45 Globulin 6.3 g/dL (2.5-4.5) H 10/29/17 05:45 Albumin/Globulin Ratio 0.3 Ratio (1.1-2.1) L 10/29/17 05:45 Prealbumin 11.1 mg/dL (18-35.7) L 10/29/17 05:45 Triglycerides 94 mg/dL (0-150) 10/29/17 14:18 - Plan (1) Pneumonia Status: Acute Qualifiers: Pneumonia type: due to unspecified organism Laterality: right Lung location: lower lobe of lung Qualified Code(s): J18.1 - Lobar pneumonia, unspecified organism Plan: PNEUMONIA PROTOCOL, ZOSYN, VANCOMYCIN, RESPIRATORY TREATMENTS, SUPPLEMENTAL OXYGEN, CONTINUE TO MONITOR
[2017-10-29] MEDS: MVI IV SCH ×4 (22:02)
[2017-10-29] MEDS: TRACE ELEMENTS IV SCH ×4 (22:02)
[2017-10-29] MEDS: [UNRECOGNIZED DRUG - OTHER] IV SCH ×4 (22:02)
[2017-10-29] MEDS: CLINIMIX IV SCH ×4 (22:02)
[2017-10-29] MEDS: SNACK - Diabetic Appropriate PO SCH (22:08)
--- NOTE | 2017-10-29 23:15 | RAD ---
KUB Indication: Abdominal pain with decreased bowel sounds Comparison: 10/28/2017 Findings: There is a normal bowel gas pattern. No free air or pneumatosis. No pathological soft tissue mass or calcification can be observed. Moderate facet arthropathy is noted bilaterally at L5-S1. Previous c holecystectomy is noted. Increased density projecting over the left renal fossa likely represents exc retion of iodinated contrast related to recent CT examination.. Contrast is noted within the urinary bladder. IMPRESSION: No evidence for acute abdominal or pelvic pathology identified. Reported By:
[2017-10-30] MEDS: HumuLIN R SUBCUT PRN ×3 (02:08→14:40)
[2017-10-30] MEDS: DEMEROL INJ IVP PRN ×3 (02:10→16:18)
[2017-10-30] MEDS ORDERED: NS 1/2 1000 ML IV 1,000 ML IV ONE ×2 (04:07→19:50)
[2017-10-30 05:28] LABS: PREALBUMIN 10.3 mg/dL (18-35.7)
[2017-10-30 05:36] LABS: BASOPHILS % (AUTO) 0.3 % (0.2-1.0); EOSINOPHILS # (AUTO) 0.1 x10^3/uL (0.0-0.2); EOSINOPHILS % (AUTO) 0.4 % (0.9-2.9); HEMATOCRIT 22.3 % (42.0-54.0); HEMOGLOBIN 7.5 g/dL (13.5-18.0); LYMPHOCYTES # (AUTO) 1.3 X10^3/uL (1.3-2.9); LYMPHOCYTES % (AUTO) 6.9 % (21.0-51.0); MEAN CORPUSCULAR HEMOGLOBIN 24.4 pg (27.0-34.0); MEAN CORPUSCULAR HGB CONC 33.7 g/dL (33.0-35.0); MEAN CORPUSCULAR VOLUME 72.2 fL (80.0-100.0); MEAN PLATELET VOLUME 7.6 fL (7.4-11.0); MONOCYTES # (AUTO) 1.3 x10^3/uL (0.3-0.8); MONOCYTES % (AUTO) 7.3 % (0.0-13.0); NEUTROPHILS # (AUTO) 15.4 x10^3/uL (2.2-4.8); NEUTROPHILS % (AUTO) 85.1 % (42.0-75.0); PLATELET COUNT 406 X10^3/uL (150.0-450.0); RED BLOOD COUNT 3.09 X10^6/uL (4.7-6.0); WHITE BLOOD COUNT 18.1 X10^3/uL (3.6-10.0)
[2017-10-30 05:40] LABS: ALANINE AMINOTRANSFERASE 14 Units/L (12-78); ALBUMIN 2.1 g/dL (3.4-5.0); ALKALINE PHOSPHATASE 148 Units/L (46-116); ASPARTATE AMINO TRANSFERASE 10 Units/L (15-37); BLOOD UREA NITROGEN 10 mg/dL (7-18); CALCIUM 7.6 mg/dL (8.5-10.1); CARBON DIOXIDE 28.7 mmol/L (21-32); CHLORIDE 93 mmol/L (98-107); COR CA(FOR HYPOALB) 9.1 mg/dL (8.5-10.1); COR NA(FOR HYPERGLY) 133 mmol/L (136-145); CREATININE 1.01 mg/dL (0.70-1.30); SODIUM 129 mmol/L (136-145); TOTAL PROTEIN 7.8 g/dL (6.4-8.2); eGFR NON BLACK RACES > 60 (>60)
[2017-10-30] MEDS: NORMODYNE INJ 20 MG VIAL IV PRN (06:02)
[2017-10-30] MEDS: ZOSYN VIAL 3.375 GRAMS 3.375 G in NS 100 ML IV + SPIKE MINIBAG* 100 ML IV SCH ×3 (06:03→22:00)
[2017-10-30 06:12] LABS: HYPOCHROMASIA SLIGHT; PLATELET MORPHOLOGY COMMENT NORMAL (NORMAL)
[2017-10-30] MEDS: PHENERGAN INJ 25 MG IV PRN ×2 (06:19→16:19)
--- NOTE | 2017-10-30 07:25 | RAD ---
HISTORY: Shortness of breath Study: Single-view chest Comparison: CT scan of the chest done 10/29/2017 Findings: Right-sided Port-A-Cath is seen inserted via an internal jugular approach with tip the cavoatrial isabel ction. The trachea is midline. Heart size is normal. Left lung is clear. Patchy foci of atelectasis o r infiltrate are present in the right lower lobe with a suspect small right pleural effusion. A nodul ar density is seen involving the lateral aspect of the right lung laterally in the midportion. These findings were seen on the CT scan yesterday. Osseous structures are intact. IMPRESSION: Foci of atelectasis or infiltrate present involving the right lower lobe. A small amount of pleural e ffusion may be present. The nodular density is again seen involving the right lung region laterally i n the midportion. Findings are unchanged compared to the prior CT. Reported By:
[2017-10-30] MEDS: ALBUMIN HUMAN 25%- 100 ML 100 ML IV SCH (08:05)
[2017-10-30] MEDS: COZAAR PO SCH (08:06)
[2017-10-30] MEDS: CHECK PATCH XX SCH ×3 (08:06→20:37)
[2017-10-30] MEDS: VANCOMYCIN HCL 1 GM VIAL 1 G in D5W 250 ML IV 250 ML IV SCH (08:07)
[2017-10-30] MEDS: K-DUR TAB 20 MEQ PO SCH (08:07)
[2017-10-30] MEDS: ROBITUSSIN DM PO SCH ×4 (08:07→20:38)
[2017-10-30] MEDS: PROTONIX TAB 40 MG PO SCH ×2 (08:07→20:39)
[2017-10-30] MEDS: PEPCID TAB 20 MG PO SCH ×2 (08:07→20:38)
[2017-10-30] MEDS: K-RIDER 10 MEQ/NS 100 ML 10 MEQ/100 ML BAG IV PRN (08:08)
[2017-10-30] MEDS: NORCO 10/325 TAB PO PRN ×2 (08:43→20:39)
[2017-10-30] MEDS ORDERED: PHARMACY COMMENT IV SCH (08:45)
[2017-10-30] MEDS: XOPENEX 1.25 MG/3 ML NEBULE NEB SCH ×4 (09:08→21:42)
[2017-10-30] MEDS: CIPRO IV 400 MG PREMIX* 400 MG/200 ML IV.SOLN. IV SCH ×2 (10:08→20:37)
[2017-10-30] MEDS: NS 1/2 1000 ML IV 1,000 ML IV SCH ×2 (12:31→20:30)
[2017-10-30] MEDS: MVI IV SCH ×4 (14:27)
[2017-10-30] MEDS: [UNRECOGNIZED DRUG - OTHER] IV SCH ×4 (14:27)
[2017-10-30] MEDS: CLINIMIX IV SCH ×4 (14:27)
[2017-10-30] MEDS: TRACE ELEMENTS IV SCH ×4 (14:27)
[2017-10-30 14:29] VITALS: BMI 21.2
[2017-10-30] MEDS ORDERED: SNACK - Diabetic Appropriate PO SCH (20:00)
[2017-10-30] MEDS ORDERED: PHARMACY COMMENT IV NR (20:30)
[2017-10-30] MEDS: SNACK - Diabetic Appropriate PO SCH (20:35)
[2017-10-30] MEDS: TOUJEO SOLOSTAR PEN SC SCH (20:36)
[2017-10-30] MEDS: KLONOPIN TAB 1 MG PO PRN ×2 (20:41→21:32)
[2017-10-31] MEDS: HumuLIN R SUBCUT PRN ×2 (04:00→15:16)
--- NOTE | 2017-10-31 06:04 | RAD ---
Examination: Portable AP chest History: SOB Comparison 10/30/2017 Findings: Continued normal heart size. Diffuse infiltrate right base. Nodular density again noted rig ht mid lung. Suspect right pleural effusion with subpulmonic distribution. No change in position of i njection port. Impression: No change in appearance of the chest since 1 day earlier. Reported By:
[2017-10-31] MEDS: ZOSYN VIAL 3.375 GRAMS 3.375 G in NS 100 ML IV + SPIKE MINIBAG* 100 ML IV SCH ×3 (06:12→22:00)
[2017-10-31 06:18] LABS: BASOPHILS # (AUTO) 0.1 X10^3/uL (0.0-0.1); BASOPHILS % (AUTO) 0.5 % (0.2-1.0); EOSINOPHILS # (AUTO) 0.1 x10^3/uL (0.0-0.2); EOSINOPHILS % (AUTO) 0.9 % (0.9-2.9); HEMATOCRIT 22.7 % (42.0-54.0); HEMOGLOBIN 7.7 g/dL (13.5-18.0); LYMPHOCYTES # (AUTO) 1.6 X10^3/uL (1.3-2.9); LYMPHOCYTES % (AUTO) 12.2 % (21.0-51.0); MEAN CORPUSCULAR HEMOGLOBIN 24.6 pg (27.0-34.0); MEAN CORPUSCULAR HGB CONC 33.9 g/dL (33.0-35.0); MEAN CORPUSCULAR VOLUME 72.7 fL (80.0-100.0); MEAN PLATELET VOLUME 7.2 fL (7.4-11.0); MONOCYTES # (AUTO) 0.8 x10^3/uL (0.3-0.8); MONOCYTES % (AUTO) 6.3 % (0.0-13.0); NEUTROPHILS # (AUTO) 10.4 x10^3/uL (2.2-4.8); NEUTROPHILS % (AUTO) 80.1 % (42.0-75.0); PLATELET COUNT 478 X10^3/uL (150.0-450.0); RED BLOOD COUNT 3.12 X10^6/uL (4.7-6.0); RED CELL DISTRIBUTION WIDTH 16.9 % (11.6-16.5)
[2017-10-31] MEDS: NORMODYNE INJ 20 MG VIAL IV PRN ×3 (06:19→16:04)
[2017-10-31 06:31] LABS: ALANINE AMINOTRANSFERASE 10 Units/L (12-78); ALBUMIN 2.3 g/dL (3.4-5.0); ALKALINE PHOSPHATASE 144 Units/L (46-116); ASPARTATE AMINO TRANSFERASE 6 Units/L (15-37); BLOOD UREA NITROGEN 13 mg/dL (7-18); CALCIUM 7.7 mg/dL (8.5-10.1); CARBON DIOXIDE 25.2 mmol/L (21-32); CHLORIDE 95 mmol/L (98-107); COR CA(FOR HYPOALB) 9.1 mg/dL (8.5-10.1); COR NA(FOR HYPERGLY) 130 mmol/L (136-145); CREATININE 1.06 mg/dL (0.70-1.30); SODIUM 127 mmol/L (136-145); TOTAL PROTEIN 8.1 g/dL (6.4-8.2); eGFR NON BLACK RACES > 60 (>60)
[2017-10-31] MEDS: ALBUMIN HUMAN 25%- 100 ML 100 ML IV SCH (08:34)
[2017-10-31] MEDS: DEMEROL INJ IVP PRN ×3 (08:35→22:00)
[2017-10-31] MEDS: PHENERGAN INJ 25 MG IV PRN ×2 (08:36→16:04)
[2017-10-31] MEDS: CHECK PATCH XX SCH ×2 (08:36→21:00)
[2017-10-31] MEDS: CIPRO IV 400 MG PREMIX* 400 MG/200 ML IV.SOLN. IV SCH ×2 (08:37→21:00)
[2017-10-31] MEDS: PEPCID TAB 20 MG PO SCH ×2 (08:37→21:00)
[2017-10-31] MEDS: ROBITUSSIN DM PO SCH ×3 (08:37→21:00)
[2017-10-31] MEDS: K-DUR TAB 20 MEQ PO SCH (08:38)
[2017-10-31] MEDS: PROTONIX TAB 40 MG PO SCH ×2 (08:38→21:00)
[2017-10-31] MEDS: COZAAR PO SCH (08:38)
[2017-10-31] MEDS: XOPENEX 1.25 MG/3 ML NEBULE NEB SCH ×4 (09:02→20:57)
[2017-10-31] MEDS: CLINIMIX IV SCH ×4 (10:09)
[2017-10-31] MEDS: TRACE ELEMENTS IV SCH ×4 (10:09)
[2017-10-31] MEDS: [UNRECOGNIZED DRUG - OTHER] IV SCH ×4 (10:09)
[2017-10-31] MEDS: MVI IV SCH ×4 (10:09)
[2017-10-31] MEDS ORDERED: NS 1/2 1000 ML IV 1,000 ML IV ONE ×2 (10:33→22:23)
[2017-10-31] MEDS: NS 1/2 1000 ML IV 1,000 ML IV SCH (10:36)
[2017-10-31] MEDS: SNACK - Diabetic Appropriate PO SCH (20:30)
[2017-10-31] MEDS: MILK OF MAGNESIA PO SCH (21:00)
[2017-10-31] MEDS: TOUJEO SOLOSTAR PEN SC SCH (21:00)
[2017-10-31] MEDS: KLONOPIN TAB 1 MG PO PRN (22:00)
[2017-10-31] MEDS: PHENERGAN TAB 25 MG PO PRN (22:00)
[2017-10-31] MEDS: NORCO 10/325 TAB PO PRN (22:00)
[2017-11-01] MEDS: COLACE CAP 100 MG PO SCH ×2 (04:04→21:30)
[2017-11-01] MEDS: MILK OF MAGNESIA PO SCH ×3 (04:04→21:59)
[2017-11-01] MEDS: PHENERGAN TAB 25 MG PO PRN (06:00)
[2017-11-01] MEDS: NS 1/2 1000 ML IV 1,000 ML IV SCH ×4 (06:16→20:29)
[2017-11-01] MEDS: ZOSYN VIAL 3.375 GRAMS 3.375 G in NS 100 ML IV + SPIKE MINIBAG* 100 ML IV SCH ×3 (06:16→22:00)
[2017-11-01] MEDS: DEMEROL INJ IVP PRN ×4 (06:18→21:30)
[2017-11-01 07:33] LABS: BASOPHILS # (AUTO) 0.1 X10^3/uL (0.0-0.1); BASOPHILS % (AUTO) 0.5 % (0.2-1.0); EOSINOPHILS # (AUTO) 0.1 x10^3/uL (0.0-0.2); EOSINOPHILS % (AUTO) 1.1 % (0.9-2.9); HEMATOCRIT 20.5 % (42.0-54.0); LYMPHOCYTES # (AUTO) 1.9 X10^3/uL (1.3-2.9); LYMPHOCYTES % (AUTO) 16.4 % (21.0-51.0); MEAN CORPUSCULAR HEMOGLOBIN 24.7 pg (27.0-34.0); MEAN CORPUSCULAR HGB CONC 33.7 g/dL (33.0-35.0); MEAN CORPUSCULAR VOLUME 73.3 fL (80.0-100.0); MONOCYTES # (AUTO) 1.1 x10^3/uL (0.3-0.8); MONOCYTES % (AUTO) 9.4 % (0.0-13.0); NEUTROPHILS # (AUTO) 8.5 x10^3/uL (2.2-4.8); NEUTROPHILS % (AUTO) 72.6 % (42.0-75.0); PLATELET COUNT 485 X10^3/uL (150.0-450.0); RED BLOOD COUNT 2.79 X10^6/uL (4.7-6.0); RED CELL DISTRIBUTION WIDTH 17.1 % (11.6-16.5); WHITE BLOOD COUNT 11.8 X10^3/uL (3.6-10.0)
[2017-11-01 07:37] LABS: HEMOGLOBIN 6.9 g/dL (13.5-18.0)
[2017-11-01 07:49] LABS: BAND NEUTROPHILS % 1 % (0-10); PLATELET MORPHOLOGY COMMENT NORMAL (NORMAL)
[2017-11-01 07:51] LABS: ANISOCYTOSIS SLIGHT; HYPOCHROMASIA 1+
[2017-11-01] MEDS: K-DUR TAB 20 MEQ PO SCH (09:05)
[2017-11-01] MEDS: PEPCID TAB 20 MG PO SCH ×2 (09:05→21:30)
[2017-11-01] MEDS: ROBITUSSIN DM PO SCH ×5 (09:05→21:30)
[2017-11-01] MEDS: ALBUMIN HUMAN 25%- 100 ML 100 ML IV SCH (09:05)
[2017-11-01] MEDS: PROTONIX TAB 40 MG PO SCH ×2 (09:05→21:30)
[2017-11-01] MEDS: COZAAR PO SCH (09:05)
[2017-11-01] MEDS: CIPRO IV 400 MG PREMIX* 400 MG/200 ML IV.SOLN. IV SCH ×2 (09:06→21:30)
[2017-11-01] MEDS: CHECK PATCH XX SCH ×2 (09:07→20:30)
[2017-11-01] MEDS: MVI IV SCH ×12 (09:10→20:28)
[2017-11-01] MEDS: TRACE ELEMENTS IV SCH ×12 (09:10→20:28)
[2017-11-01] MEDS: [UNRECOGNIZED DRUG - OTHER] IV SCH ×12 (09:10→20:28)
[2017-11-01] MEDS: CLINIMIX IV SCH ×12 (09:10→20:28)
[2017-11-01] MEDS: XOPENEX 1.25 MG/3 ML NEBULE NEB SCH ×4 (09:45→21:49)
[2017-11-01] MEDS: HumuLIN R SUBCUT PRN (11:27)
[2017-11-01] MEDS: PHENERGAN INJ 25 MG IV PRN ×2 (11:29→17:11)
[2017-11-01] MEDS ORDERED: TYLENOL 325 MG TAB PO ONE (12:14)
[2017-11-01] MEDS ORDERED: BENADRYL INJ 50 MG VIAL IVP ONE (12:15)
[2017-11-01] MEDS: NORMODYNE INJ 20 MG VIAL IV PRN ×2 (12:22→14:00)
[2017-11-01] MEDS ORDERED: NS 500 ML IV 500 ML IV ONE (12:29)
[2017-11-01] MEDS: NORCO 10/325 TAB PO PRN (14:13)
[2017-11-01 17:21] LABS: HEMATOCRIT 29.7 % (42.0-54.0); HEMOGLOBIN 10.1 g/dL (13.5-18.0)
[2017-11-01 18:20] LABS: MAGNESIUM 1.6 mg/dL (1.7-2.9); PHOSPHORUS 1.1 mg/dL (2.6-4.7)
[2017-11-01] MEDS ORDERED: NS 1/2 1000 ML IV 1,000 ML IV ONE (18:34)
[2017-11-01] MEDS: MAGNESIUM SULFATE 1 GRAM/100 mL PREMIX 1 GM/100 ML BAG IV PRN ×2 (18:44→19:55)
[2017-11-01] MEDS: SNACK - Diabetic Appropriate PO SCH (19:30)
[2017-11-01] MEDS: TOUJEO SOLOSTAR PEN SC SCH (21:30)
[2017-11-02] MEDS: DEMEROL INJ IVP PRN ×4 (01:30→20:40)
[2017-11-02] MEDS: HumuLIN R SUBCUT PRN ×2 (05:16→13:41)
[2017-11-02] MEDS: ZOSYN VIAL 3.375 GRAMS 3.375 G in NS 100 ML IV + SPIKE MINIBAG* 100 ML IV SCH ×3 (05:18→21:01)
[2017-11-02 05:26] LABS: BASOPHILS # (AUTO) 0.1 X10^3/uL (0.0-0.1); BASOPHILS % (AUTO) 0.7 % (0.2-1.0); EOSINOPHILS # (AUTO) 0.2 x10^3/uL (0.0-0.2); EOSINOPHILS % (AUTO) 1.5 % (0.9-2.9); LYMPHOCYTES # (AUTO) 1.7 X10^3/uL (1.3-2.9); LYMPHOCYTES % (AUTO) 12.8 % (21.0-51.0); MEAN CORPUSCULAR HEMOGLOBIN 25.5 pg (27.0-34.0); MEAN CORPUSCULAR HGB CONC 34.6 g/dL (33.0-35.0); MEAN CORPUSCULAR VOLUME 73.6 fL (80.0-100.0); MEAN PLATELET VOLUME 6.9 fL (7.4-11.0); MONOCYTES # (AUTO) 1.1 x10^3/uL (0.3-0.8); MONOCYTES % (AUTO) 8.4 % (0.0-13.0); NEUTROPHILS % (AUTO) 76.6 % (42.0-75.0); PLATELET COUNT 485 X10^3/uL (150.0-450.0); RED BLOOD COUNT 3.54 X10^6/uL (4.7-6.0); RED CELL DISTRIBUTION WIDTH 16.7 % (11.6-16.5)
[2017-11-02 05:32] LABS: BLOOD UREA NITROGEN 11 mg/dL (7-18); CALCIUM 7.7 mg/dL (8.5-10.1); CARBON DIOXIDE 27.2 mmol/L (21-32); CHLORIDE 95 mmol/L (98-107); COR NA(FOR HYPERGLY) 132 mmol/L (136-145); CREATININE 0.95 mg/dL (0.70-1.30); eGFR NON BLACK RACES > 60 (>60)
[2017-11-02 05:45] LABS: WHITE BLOOD COUNT 13.1 X10^3/uL (3.6-10.0)
[2017-11-02 05:46] LABS: HYPOCHROMASIA 1+; MICROCYTOSIS SLIGHT; PLATELET MORPHOLOGY COMMENT NORMAL (NORMAL)
[2017-11-02 05:55] LABS: SODIUM 128 mmol/L (136-145)
--- NOTE | 2017-11-02 07:43 | RAD ---
Examination: AP chest History: SOB, pneumonia Comparison reference 10/31/2017 Findings: Continued normal heart size with essentially clear left chest. Increasing opacity at the ri ght base consistent with localized airspace disease and pleural reaction. The right upper lung is suze ar. There is no change in position of a right IJ injection port. Impression: Interval increase in pleural-parenchymal opacity at the right base which may represent pn eumonia. The radiographic findings are nonspecific; pulmonary infarction could produce similar findin gs. Reported By:
[2017-11-02] MEDS: ALBUMIN HUMAN 25%- 100 ML 100 ML IV SCH (08:22)
[2017-11-02] MEDS: K-DUR TAB 20 MEQ PO SCH (08:24)
[2017-11-02] MEDS: PROTONIX TAB 40 MG PO SCH ×2 (08:24→20:40)
[2017-11-02] MEDS: COZAAR PO SCH (08:24)
[2017-11-02] MEDS: PEPCID TAB 20 MG PO SCH ×2 (08:24→20:39)
[2017-11-02] MEDS: ROBITUSSIN DM PO SCH ×4 (08:24→20:40)
[2017-11-02] MEDS: MILK OF MAGNESIA PO SCH ×2 (08:25→20:40)
[2017-11-02] MEDS: CHECK PATCH XX SCH ×2 (08:26→20:56)
[2017-11-02] MEDS: NORCO 10/325 TAB PO PRN ×2 (08:33→21:18)
[2017-11-02] MEDS: NORMODYNE INJ 20 MG VIAL IV PRN (08:33)
[2017-11-02] MEDS: XOPENEX 1.25 MG/3 ML NEBULE NEB SCH ×4 (08:51→20:59)
[2017-11-02] MEDS: CIPRO IV 400 MG PREMIX* 400 MG/200 ML IV.SOLN. IV SCH ×2 (09:16→20:38)
[2017-11-02] MEDS: NS 1/2 1000 ML IV 1,000 ML IV SCH ×2 (10:02→20:38)
[2017-11-02] MEDS: TRACE ELEMENTS IV SCH ×8 (10:43→20:54)
[2017-11-02] MEDS: [UNRECOGNIZED DRUG - OTHER] IV SCH ×8 (10:43→20:54)
[2017-11-02] MEDS: MVI IV SCH ×8 (10:43→20:54)
[2017-11-02] MEDS: CLINIMIX IV SCH ×8 (10:43→20:54)
[2017-11-02] MEDS ORDERED: NS 1/2 1000 ML IV 1,000 ML IV ONE (20:35)
[2017-11-02] MEDS: COLACE CAP 100 MG PO SCH (20:39)
[2017-11-02] MEDS: SNACK - Diabetic Appropriate PO SCH (20:55)
[2017-11-02] MEDS: TOUJEO SOLOSTAR PEN SC SCH (21:16)
[2017-11-03] MEDS: DEMEROL INJ IVP PRN ×3 (04:20→20:17)
[2017-11-03] MEDS: NS 1/2 1000 ML IV 1,000 ML IV SCH ×2 (05:07→13:00)
[2017-11-03] MEDS: ZOSYN VIAL 3.375 GRAMS 3.375 G in NS 100 ML IV + SPIKE MINIBAG* 100 ML IV SCH ×2 (05:08→13:58)
[2017-11-03 05:19] LABS: BASOPHILS # (AUTO) 0.1 X10^3/uL (0.0-0.1); BASOPHILS % (AUTO) 0.7 % (0.2-1.0); EOSINOPHILS # (AUTO) 0.3 x10^3/uL (0.0-0.2); EOSINOPHILS % (AUTO) 1.8 % (0.9-2.9); HEMATOCRIT 25.4 % (42.0-54.0); HEMOGLOBIN 8.7 g/dL (13.5-18.0); LYMPHOCYTES # (AUTO) 1.9 X10^3/uL (1.3-2.9); MEAN CORPUSCULAR HEMOGLOBIN 25.5 pg (27.0-34.0); MEAN CORPUSCULAR HGB CONC 34.3 g/dL (33.0-35.0); MEAN CORPUSCULAR VOLUME 74.3 fL (80.0-100.0); MEAN PLATELET VOLUME 6.8 fL (7.4-11.0); MONOCYTES # (AUTO) 1.4 x10^3/uL (0.3-0.8); MONOCYTES % (AUTO) 9.5 % (0.0-13.0); NEUTROPHILS # (AUTO) 10.7 x10^3/uL (2.2-4.8); PLATELET COUNT 513 X10^3/uL (150.0-450.0); RED BLOOD COUNT 3.42 X10^6/uL (4.7-6.0); RED CELL DISTRIBUTION WIDTH 16.7 % (11.6-16.5); WHITE BLOOD COUNT 14.2 X10^3/uL (3.6-10.0)
[2017-11-03 05:22] LABS: BLOOD UREA NITROGEN 11 mg/dL (7-18); CALCIUM 7.8 mg/dL (8.5-10.1); CARBON DIOXIDE 28.8 mmol/L (21-32); CHLORIDE 94 mmol/L (98-107); COR NA(FOR HYPERGLY) 130 mmol/L (136-145); CREATININE 1.04 mg/dL (0.70-1.30); MAGNESIUM 1.8 mg/dL (1.7-2.9); SODIUM 127 mmol/L (136-145); eGFR NON BLACK RACES > 60 (>60)
[2017-11-03 05:52] LABS: HYPOCHROMASIA 1+; MICROCYTOSIS SLIGHT; PLATELET MORPHOLOGY COMMENT NORMAL (NORMAL)
[2017-11-03] MEDS: CHECK PATCH XX SCH ×2 (08:35→20:21)
[2017-11-03] MEDS: COZAAR PO SCH (08:36)
[2017-11-03] MEDS: PROTONIX TAB 40 MG PO SCH ×2 (08:37→20:20)
[2017-11-03] MEDS: PEPCID TAB 20 MG PO SCH ×2 (08:37→20:19)
[2017-11-03] MEDS: ROBITUSSIN DM PO SCH ×4 (08:37→20:19)
[2017-11-03] MEDS: MILK OF MAGNESIA PO SCH ×2 (08:38→20:19)
[2017-11-03] MEDS: K-DUR TAB 20 MEQ PO SCH (08:38)
[2017-11-03] MEDS: PHENERGAN INJ 25 MG IV PRN (08:39)
[2017-11-03] MEDS: ALBUMIN HUMAN 25%- 100 ML 100 ML IV SCH (09:18)
--- NOTE | 2017-11-03 09:23 | RAD ---
History: Pneumonia, comparison 11/02/2017 Study: AP and lateral chest Findings: AP and lateral chest views show a right-sided Port-A-Cath to be present unchanged in positi on. The cardiac silhouette is mildly enlarged. The left lung appears clear with the exception of some min imal opacity in the medial left base. There is a moderate size right pleural effusion seen with some overlying consolidation. This may refl ect atelectasis or pneumonia. Minimal improvement is seen as compared to the prior exam. Impression: 1. Minimal opacity medial left base which may reflect atelectasis or pneumonia. 2. Moderate size right pleural effusion with overlying consolidation, atelectasis versus pneumonia. M oderate improvement. Reported By:
[2017-11-03] MEDS: XOPENEX 1.25 MG/3 ML NEBULE NEB SCH ×4 (09:29→20:35)
[2017-11-03] MEDS: CIPRO IV 400 MG PREMIX* 400 MG/200 ML IV.SOLN. IV SCH ×2 (10:50→20:20)
[2017-11-03] MEDS ORDERED: NS 1/2 1000 ML IV 1,000 ML IV ONE (12:29)
[2017-11-03] MEDS: ZOFRAN INJ 4 MG VIAL IVP PRN (12:30)
[2017-11-03] MEDS: NORCO 10/325 TAB PO PRN (12:33)
[2017-11-03] MEDS: NORMODYNE INJ 20 MG VIAL IV PRN (12:34)
[2017-11-03] MEDS: TRACE ELEMENTS IV SCH ×8 (13:58→20:20)
[2017-11-03] MEDS: [UNRECOGNIZED DRUG - OTHER] IV SCH ×8 (13:58→20:20)
[2017-11-03] MEDS: MVI IV SCH ×8 (13:58→20:20)
[2017-11-03] MEDS: CLINIMIX IV SCH ×8 (13:58→20:20)
[2017-11-03] MEDS: HumuLIN R SUBCUT PRN (14:05)
[2017-11-03] MEDS: INVANZ INJ 1 GM VIAL 1 GM in NS 100 ML IV + SPIKE MINIBAG* 100 ML IV SCH (18:20)
--- NOTE | 2017-11-03 18:55 | PCM.PROG ---
Progress Note - Progress Note for Day of Date: 10/31/17 - Subjective Subjective: WAS ADMITTED FOR TREATMENT OF PNEUMONIA. TODAY, HE IS ALERT AND ORIENTED, LYING IN BED ON MORNING ROUNDS. HE CONTINUES WITH A COUGH AND SHORTNESS OF BREATH. HE ALSO REPORTS GENERALIZED WEAKNESS AND NAUSEA TODAY. ON EXAMINATION, BILATERAL LUNGS CONTINUE WITH SCATTERED WHEEZING AND RHONCHI THROUGHOUT. ABDOMEN IS ROUND, SOFT, AND NON-TENDER WITH NORMAL BOWEL SOUNDS NOTED IN ALL QUADRANTS. HIS VITAL SIGNS TODAY ARE 97.8-92-18-100%-135/74. ABNORMAL LAB VALUES INCLUDE THE FOLLOWING: WBC 13.0, rbc 3.12, hgb 7.7, hct 22.7 , plt count 478, sodium 127, chloride 95, glucose 214, calcium 7.7, ast 6, alt 10, alk phos 144, albumin 2.3, globulin 5.8. BLOOD CULTURES REPORT GROWTH OF KLEBSIELLA PNEUMONIAE. IT IS SENSITIVE TO THE ZOSYN AND CIPRO THAT HE IS CURRENTLY RECEIVING. A CHEST XRAY WAS OBTAINED TODAY AND REPORTED NO CHANGE SINCE YESTERDAY. HE IS CURRENTLY RECEIVING IV ANTIBIOTICS AND RESPIRATORY TREATMENTS WELL TPN. WE WILL CONTINUE WITH CURRENT PLAN OF CARE TODAY. OTHERWISE, WE WILL FOLLOW UP WITH AM LABS AND CONTINUE TO MONITOR PATIENT. - Past Medical Family Social History Past Med/Fam/Surg Hx: No changes since H&P Allergies: Allergies codeine Allergy (Verified 07/30/17 02:52) morphine Allergy (Verified 07/30/17 02:52) - Review of Systems ROS: No change since H&P - Vital Signs and I&O's Vital Signs: Temperature 98.0 F Pulse Rate [Left Brachial] 105 Pulse Rate [Apical] 92 Pulse Rate 106 Respiratory Rate 20 Blood Pressure [Right Arm] 198/100 Blood Pressure [Left Arm] 154/95 Blood Pressure [Left Radial 160/102 Artery] Blood Pressure 111/57 O2 Sat by Pulse Oximetry 96 Intake and Output: Intake & Output 11/01/17 11/02/17 11/03/17 11/04/17 11:59 11:59 11:59 11:59 Intake Total 3890 3979 4349 2438 Output Total 4800 3260 3825 2450 Balance -910 719 524 -12 - Physical Exam Oriented: Normal Eyes: Normal Ear: Normal Nose: Normal Throat: Normal Respiratory: Wheezes, Rhonchi Cardiovascular: Normal : Normal Auscultation: Bowel Sounds: Normal Palpation: Normal Tenderness: Normal Skin: Normal Musculoskeletal: Back:Lumbar, Tender Psychiatric: Normal Mood Description: Calm Affect: Normal Speech Pattern: Clear, Appropriate - Laboratory and Diagnostics Result Diagrams: 11/03/17 04:55 11/03/17 04:55 Labs: 10/28/17 18:33 Blood Blood Culture - Final Klebsiella Pneumoniae 10/28/17 18:27 Blood Blood Culture - Final Klebsiella Pneumoniae Laboratory WBC 14.2 X10^3/uL (3.6-10.0) H 11/03/17 04:55 RBC 3.42 X10^6/uL (4.7-6.0) L 11/03/17 04:55 Hgb 8.7 g/dL (13.5-18.0) L 11/03/17 04:55 Hct 25.4 % (42.0-54.0) L 11/03/17 04:55 MCV 74.3 fL (80.0-100.0) L 11/03/17 04:55 MCH 25.5 pg (27.0-34.0) L 11/03/17 04:55 MCHC 34.3 g/dL (33.0-35.0) 11/03/17 04:55 RDW 16.7 % (11.6-16.5) H 11/03/17 04:55 Plt Count 513 X10^3/uL (150.0-450.0) H 11/03/17 04:55 Plt Count Comment Increased (ADEQUATE) 11/03/17 04:55 MPV 6.8 fL (7.4-11.0) L 11/03/17 04:55 Neut % (Auto) 75.0 % (42.0-75.0) 11/03/17 04:55 Lymph % (Auto) 13.0 % (21.0-51.0) L 11/03/17 04:55 [place] % (Auto) 9.5 % (0.0-13.0) 11/03/17 04:55 Eos % (Auto) 1.8 % (0.9-2.9) 11/03/17 04:55 Baso % (Auto) 0.7 % (0.2-1.0) 11/03/17 04:55 Neut # (Auto) 10.7 x10^3/uL (2.2-4.8) H 11/03/17 04:55 Lymph # (Auto) 1.9 X10^3/uL (1.3-2.9) 11/03/17 04:55 [place] # (Auto) 1.4 x10^3/uL (0.3-0.8) H 11/03/17 04:55 Eos # (Auto) 0.3 x10^3/uL (0.0-0.2) H 11/03/17 04:55 Baso # (Auto) 0.1 X10^3/uL (0.0-0.1) 11/03/17 04:55 Absolute Nucleated RBC 0.0 /100WBC 11/03/17 04:55 Total Counted 100 11/01/17 06:46 Neutrophils % (Manual) 73 % (39-76) 11/01/17 06:46 Band Neutrophils % 1 % (0-10) 11/01/17 06:46 Lymphocytes % (Manual) 14 % (13-43) 11/01/17 06:46 Monocytes % (Manual) 10 % (4-9) H 11/01/17 06:46 Eosinophils % (Manual) 2 % (0-6) 11/01/17 06:46 Plt Morphology Comment Normal (NORMAL) 11/03/17 04:55 RBC Morphology Abnormal (NORMAL) 11/03/17 04:55 Hypochromasia 1+ A 11/03/17 04:55 Anisocytosis Slight A 11/01/17 06:46 Microcytosis Slight A 11/03/17 04:55 Sodium 127 mmol/L (136-145) L 11/03/17 04:55 Corrected Sodium 130 mmol/L (136-145) L 11/03/17 04:55 Potassium 5.0 mmol/L (3.5-5.1) 11/03/17 04:55 Chloride 94 mmol/L (98-107) L 11/03/17 04:55 Carbon Dioxide 28.8 mmol/L (21-32) 11/03/17 04:55 BUN 11 mg/dL (7-18) 11/03/17 04:55 Creatinine 1.04 mg/dL (0.70-1.30) 11/03/17 04:55 Est GFR (MDRD) Af Amer > 60 (>60) 11/03/17 04:55 Est GFR (MDRD) Non-Af > 60 (>60) 11/03/17 04:55 Glucose 222 mg/dL (65-99) H 11/03/17 04:55 POC Glucose (mg/dL) 300 mg/dL (65-99) H 11/03/17 13:57 Lactic Acid 0.7 mmol/L (0.4-2.0) 10/29/17 05:45 Calcium 7.8 mg/dL (8.5-10.1) L 11/03/17 04:55 Corrected Calcium 9.1 mg/dL (8.5-10.1) 10/31/17 05:50 Phosphorus 1.1 mg/dL (2.6-4.7) L 11/01/17 17:48 Magnesium 1.8 mg/dL (1.7-2.9) 11/03/17 04:55 Iron 17 ug/dL (50-175) L 11/01/17 09:47 Transferrin 119 mg/dL (202-364) L 11/01/17 09:47 Ferritin 290 ng/mL (26-388) 11/01/17 09:47 Total Bilirubin 0.20 mg/dL (0.2-1.0) 10/31/17 05:50 AST 6 Units/L (15-37) L 10/31/17 05:50 ALT 10 Units/L (12-78) L 10/31/17 05:50 Alkaline Phosphatase 144 Units/L (46-116) H 10/31/17 05:50 Total Protein 8.1 g/dL (6.4-8.2) 10/31/17 05:50 Albumin 2.3 g/dL (3.4-5.0) L 10/31/17 05:50 Globulin 5.8 g/dL (2.5-4.5) H 10/31/17 05:50 Albumin/Globulin Ratio 0.4 Ratio (1.1-2.1) L 10/31/17 05:50 Prealbumin 10.3 mg/dL (18-35.7) L 10/30/17 04:23 Triglycerides 65 mg/dL (0-150) 11/01/17 17:48 Vitamin B12 720 pg/mL (193-986) 11/01/17 09:47 Folate 10.8 ng/mL (>8.6) 11/01/17 09:47 Blood Type O POSITIVE 11/01/17 09:47 Antibody Screen Negative 11/01/17 09:47 Crossmatch See Detail 11/01/17 09:47 - Plan (1) Pneumonia Status: Acute Qualifiers: Pneumonia type: due to Klebsiella pneumoniae Laterality: right Lung location: lower lobe of lung Qualified Code(s): J15.0 - Pneumonia due to Klebsiella pneumoniae Plan: PNEUMONIA PROTOCOL, ZOSYN, CIPRO, RESPIRATORY TREATMENTS, SUPPLEMENTAL OXYGEN, CONTINUE TO MONITOR (2) Diabetes mellitus type 1 Status: Chronic Qualifiers: Diabetes mellitus complication status: without complication Qualified Code( s): E10.9 - Type 1 diabetes mellitus without complications Plan: MONITOR OTBS, SLIDING SCALE INSULIN, CONTINUE TOUJEO, CONTINUE TO MONITOR
--- NOTE | 2017-11-03 18:55 | PCM.PROG ---
Progress Note - Progress Note for Day of Date: 10/30/17 - Subjective Subjective: WAS ADMITTED FOR TREATMENT OF PNEUMONIA. TODAY, HE IS ALERT AND ORIENTED, LYING IN BED ON MORNING ROUNDS. HE CONTINUES WITH A COUGH AND SHORTNESS OF BREATH. HE REPORTS THAT BACK PAIN HAS IMPROVED SINCE ADMISSION. ON EXAMINATION, BILATERAL LUNGS CONTINUE WITH SCATTERED WHEEZING AND RHONCHI THROUGHOUT. ABDOMEN IS ROUND, SOFT, AND NON-TENDER WITH NORMAL BOWEL SOUNDS NOTED IN ALL QUADRANTS. HIS VITAL SIGNS TODAY ARE 98.9-87-18-100%- 144/86. ABNORMAL LAB VALUES INCLUDE THE FOLLOWING: WBC 18.1, RBC 3.09, HGB 7.5, HCT 22.3, SODIUM 129, POTASSIUM 3.1, CHLORIDE 93, GLUCOSE 248, CALCIUM 7.6, AST 10, ALK LAURA 148, ALBUMIN 2.1. PRELIMINARY RESULTS OF BLOOD CULTURES REPORT GROWTH OF GRAM NEGATIVE RODS. A CHEST XRAY WAS OBTAINED TODAY. IT REVEALED FOCI OF ATELECTASIS OR INFILTRATE PRESENT INVOLVING THE RIGHT LOWER LOBE. A SMALL AMOUNT OF PLEURAL EFFUSION MAY BE PRESENT. THE NODULAR DENSITY IS AGAIN SEEN INVOLVING THE RIGHT LUNG REGION LATERALLY IN THE MID PORTION. FINDINGS ARE UNCHANGED COMPARED TO THE PRIOR CT. HE IS CURRENTLY RECEIVING IV ANTIBIOTICS AND RESPIRATORY TREATMENTS. TODAY, WE WILL WE WILL DISCONTINUE THE VANCOMYCIN THAT HE IS CURRENTLY ON AND START CIPRO. WE WILL RESTART HIS INSULIN AND ADVANCE HIM TO A FULL LIQUID DIET. OTHERWISE, WE WILL FOLLOW UP WITH AM LABS AND CONTINUE TO MONITOR PATIENT. - Past Medical Family Social History Past Med/Fam/Surg Hx: No changes since H&P Allergies: Allergies codeine Allergy (Verified 07/30/17 02:52) morphine Allergy (Verified 07/30/17 02:52) - Review of Systems ROS: No change since H&P - Vital Signs and I&O's Vital Signs: Temperature 98.0 F Pulse Rate [Left Brachial] 105 Pulse Rate [Apical] 92 Pulse Rate 106 Respiratory Rate 20 Blood Pressure [Right Arm] 198/100 Blood Pressure [Left Arm] 154/95 Blood Pressure [Left Radial 160/102 Artery] Blood Pressure 111/57 O2 Sat by Pulse Oximetry 96 Intake and Output: Intake & Output 11/01/17 11/02/17 11/03/17 11/04/17 11:59 11:59 11:59 11:59 Intake Total 3890 3979 4349 2438 Output Total 4800 3260 3825 2450 Balance -910 719 524 -12 - Physical Exam Oriented: Normal Eyes: Normal Ear: Normal Nose: Normal Throat: Normal Respiratory: Wheezes, Rhonchi Cardiovascular: Normal : Normal Auscultation: Bowel Sounds: Normal Palpation: Normal Tenderness: Normal Skin: Normal Musculoskeletal: Back:Lumbar, Tender Psychiatric: Normal Mood Description: Calm Affect: Normal Speech Pattern: Clear, Appropriate - Laboratory and Diagnostics Result Diagrams: 11/03/17 04:55 11/03/17 04:55 Labs: 10/28/17 18:33 Blood Blood Culture - Final Klebsiella Pneumoniae 10/28/17 18:27 Blood Blood Culture - Final Klebsiella Pneumoniae Laboratory WBC 14.2 X10^3/uL (3.6-10.0) H 11/03/17 04:55 RBC 3.42 X10^6/uL (4.7-6.0) L 11/03/17 04:55 Hgb 8.7 g/dL (13.5-18.0) L 11/03/17 04:55 Hct 25.4 % (42.0-54.0) L 11/03/17 04:55 MCV 74.3 fL (80.0-100.0) L 11/03/17 04:55 MCH 25.5 pg (27.0-34.0) L 11/03/17 04:55 MCHC 34.3 g/dL (33.0-35.0) 11/03/17 04:55 RDW 16.7 % (11.6-16.5) H 11/03/17 04:55 Plt Count 513 X10^3/uL (150.0-450.0) H 11/03/17 04:55 Plt Count Comment Increased (ADEQUATE) 11/03/17 04:55 MPV 6.8 fL (7.4-11.0) L 11/03/17 04:55 Neut % (Auto) 75.0 % (42.0-75.0) 11/03/17 04:55 Lymph % (Auto) 13.0 % (21.0-51.0) L 11/03/17 04:55 [place] % (Auto) 9.5 % (0.0-13.0) 11/03/17 04:55 Eos % (Auto) 1.8 % (0.9-2.9) 11/03/17 04:55 Baso % (Auto) 0.7 % (0.2-1.0) 11/03/17 04:55 Neut # (Auto) 10.7 x10^3/uL (2.2-4.8) H 11/03/17 04:55 Lymph # (Auto) 1.9 X10^3/uL (1.3-2.9) 11/03/17 04:55 [place] # (Auto) 1.4 x10^3/uL (0.3-0.8) H 11/03/17 04:55 Eos # (Auto) 0.3 x10^3/uL (0.0-0.2) H 11/03/17 04:55 Baso # (Auto) 0.1 X10^3/uL (0.0-0.1) 11/03/17 04:55 Absolute Nucleated RBC 0.0 /100WBC 11/03/17 04:55 Total Counted 100 11/01/17 06:46 Neutrophils % (Manual) 73 % (39-76) 11/01/17 06:46 Band Neutrophils % 1 % (0-10) 11/01/17 06:46 Lymphocytes % (Manual) 14 % (13-43) 11/01/17 06:46 Monocytes % (Manual) 10 % (4-9) H 11/01/17 06:46 Eosinophils % (Manual) 2 % (0-6) 11/01/17 06:46 Plt Morphology Comment Normal (NORMAL) 11/03/17 04:55 RBC Morphology Abnormal (NORMAL) 11/03/17 04:55 Hypochromasia 1+ A 11/03/17 04:55 Anisocytosis Slight A 11/01/17 06:46 Microcytosis Slight A 11/03/17 04:55 Sodium 127 mmol/L (136-145) L 11/03/17 04:55 Corrected Sodium 130 mmol/L (136-145) L 11/03/17 04:55 Potassium 5.0 mmol/L (3.5-5.1) 11/03/17 04:55 Chloride 94 mmol/L (98-107) L 11/03/17 04:55 Carbon Dioxide 28.8 mmol/L (21-32) 11/03/17 04:55 BUN 11 mg/dL (7-18) 11/03/17 04:55 Creatinine 1.04 mg/dL (0.70-1.30) 11/03/17 04:55 Est GFR (MDRD) Af Amer > 60 (>60) 11/03/17 04:55 Est GFR (MDRD) Non-Af > 60 (>60) 11/03/17 04:55 Glucose 222 mg/dL (65-99) H 11/03/17 04:55 POC Glucose (mg/dL) 300 mg/dL (65-99) H 11/03/17 13:57 Lactic Acid 0.7 mmol/L (0.4-2.0) 10/29/17 05:45 Calcium 7.8 mg/dL (8.5-10.1) L 11/03/17 04:55 Corrected Calcium 9.1 mg/dL (8.5-10.1) 10/31/17 05:50 Phosphorus 1.1 mg/dL (2.6-4.7) L 11/01/17 17:48 Magnesium 1.8 mg/dL (1.7-2.9) 11/03/17 04:55 Iron 17 ug/dL (50-175) L 11/01/17 09:47 Transferrin 119 mg/dL (202-364) L 11/01/17 09:47 Ferritin 290 ng/mL (26-388) 11/01/17 09:47 Total Bilirubin 0.20 mg/dL (0.2-1.0) 10/31/17 05:50 AST 6 Units/L (15-37) L 10/31/17 05:50 ALT 10 Units/L (12-78) L 10/31/17 05:50 Alkaline Phosphatase 144 Units/L (46-116) H 10/31/17 05:50 Total Protein 8.1 g/dL (6.4-8.2) 10/31/17 05:50 Albumin 2.3 g/dL (3.4-5.0) L 10/31/17 05:50 Globulin 5.8 g/dL (2.5-4.5) H 10/31/17 05:50 Albumin/Globulin Ratio 0.4 Ratio (1.1-2.1) L 10/31/17 05:50 Prealbumin 10.3 mg/dL (18-35.7) L 10/30/17 04:23 Triglycerides 65 mg/dL (0-150) 11/01/17 17:48 Vitamin B12 720 pg/mL (193-986) 11/01/17 09:47 Folate 10.8 ng/mL (>8.6) 11/01/17 09:47 Blood Type O POSITIVE 11/01/17 09:47 Antibody Screen Negative 11/01/17 09:47 Crossmatch See Detail 11/01/17 09:47 - Plan (1) Pneumonia Status: Acute Qualifiers: Laterality: right Lung location: lower lobe of lung Plan: PNEUMONIA PROTOCOL, ZOSYN, CIPRO, RESPIRATORY TREATMENTS, SUPPLEMENTAL OXYGEN, CONTINUE TO MONITOR (2) Diabetes mellitus type 1 Status: Chronic Qualifiers: Diabetes mellitus complication status: without complication Qualified Code( s): E10.9 - Type 1 diabetes mellitus without complications Plan: MONITOR OTBS, SLIDING SCALE INSULIN, CONTINUE TOUJEO, CONTINUE TO MONITOR
[2017-11-03] MEDS: COLACE CAP 100 MG PO SCH (20:19)
[2017-11-03] MEDS: SNACK - Diabetic Appropriate PO SCH (20:21)
[2017-11-03] MEDS: TOUJEO SOLOSTAR PEN SC SCH (21:58)
[2017-11-04] MEDS: NORCO 10/325 TAB PO PRN ×2 (04:39→19:04)
--- NOTE | 2017-11-04 04:53 | RAD ---
Chest AP portable Indication: Pneumonia Comparison: Previous day's radiograph Findings: Patchy right lower lung opacity persists, with right effusion. Heart size is prominent. Kyler gs are mildly hyperinflated. Port-A-Cath tip is over the SVC. Impression: Persistent right lung opacity and effusion, compatible with pneumonia. Follow-up to viola sanders. Reported By:
[2017-11-04] MEDS ORDERED: NS 1/2 1000 ML IV 1,000 ML IV ONE ×2 (05:05→20:33)
[2017-11-04] MEDS: HumuLIN R SUBCUT PRN ×2 (05:08→13:25)
[2017-11-04] MEDS: NS 1/2 1000 ML IV 1,000 ML IV SCH ×2 (05:08→19:15)
[2017-11-04 05:27] LABS: BASOPHILS # (AUTO) 0.1 X10^3/uL (0.0-0.1); BASOPHILS % (AUTO) 0.6 % (0.2-1.0); EOSINOPHILS # (AUTO) 0.3 x10^3/uL (0.0-0.2); EOSINOPHILS % (AUTO) 1.7 % (0.9-2.9); HEMATOCRIT 26.2 % (42.0-54.0); LYMPHOCYTES # (AUTO) 1.8 X10^3/uL (1.3-2.9); LYMPHOCYTES % (AUTO) 11.8 % (21.0-51.0); MEAN CORPUSCULAR HEMOGLOBIN 25.3 pg (27.0-34.0); MEAN CORPUSCULAR HGB CONC 34.2 g/dL (33.0-35.0); MEAN PLATELET VOLUME 6.9 fL (7.4-11.0); MONOCYTES # (AUTO) 1.4 x10^3/uL (0.3-0.8); MONOCYTES % (AUTO) 9.3 % (0.0-13.0); NEUTROPHILS # (AUTO) 11.4 x10^3/uL (2.2-4.8); NEUTROPHILS % (AUTO) 76.6 % (42.0-75.0); PLATELET COUNT 545 X10^3/uL (150.0-450.0); RED BLOOD COUNT 3.55 X10^6/uL (4.7-6.0); RED CELL DISTRIBUTION WIDTH 16.6 % (11.6-16.5); WHITE BLOOD COUNT 14.9 X10^3/uL (3.6-10.0)
[2017-11-04 05:28] LABS: BLOOD UREA NITROGEN 13 mg/dL (7-18); CARBON DIOXIDE 28.1 mmol/L (21-32); CHLORIDE 92 mmol/L (98-107); COR NA(FOR HYPERGLY) 129 mmol/L (136-145); CREATININE 1.07 mg/dL (0.70-1.30); SODIUM 126 mmol/L (136-145); eGFR NON BLACK RACES > 60 (>60)
[2017-11-04 06:00] LABS: PLATELET MORPHOLOGY COMMENT NORMAL (NORMAL)
[2017-11-04 06:01] LABS: HYPOCHROMASIA 1+; MICROCYTOSIS SLIGHT
[2017-11-04] MEDS: COZAAR PO SCH (08:17)
[2017-11-04] MEDS: PEPCID TAB 20 MG PO SCH ×2 (08:17→21:19)
[2017-11-04] MEDS: INVANZ INJ 1 GM VIAL 1 GM in NS 100 ML IV + SPIKE MINIBAG* 100 ML IV SCH (08:17)
[2017-11-04] MEDS: K-DUR TAB 20 MEQ PO SCH (08:18)
[2017-11-04] MEDS: ROBITUSSIN DM PO SCH ×4 (08:18→21:18)
[2017-11-04] MEDS: PROTONIX TAB 40 MG PO SCH ×2 (08:18→21:17)
[2017-11-04] MEDS: CHECK PATCH XX SCH ×2 (08:21→21:35)
[2017-11-04] MEDS: MILK OF MAGNESIA PO SCH ×2 (08:22→21:17)
[2017-11-04] MEDS: XOPENEX 1.25 MG/3 ML NEBULE NEB SCH ×4 (09:18→21:48)
[2017-11-04] MEDS: CIPRO IV 400 MG PREMIX* 400 MG/200 ML IV.SOLN. IV SCH ×2 (09:34→21:16)
[2017-11-04] MEDS: ALBUMIN HUMAN 25%- 100 ML 100 ML IV SCH (10:56)
[2017-11-04] MEDS: DEMEROL INJ IVP PRN (14:30)
[2017-11-04 14:42] LABS: MAGNESIUM 1.9 mg/dL (1.7-2.9); PHOSPHORUS 1.9 mg/dL (2.6-4.7)
--- NOTE | 2017-11-04 16:10 | PCM.PROG ---
Progress Note - Progress Note for Day of Date: 11/01/17 - Subjective Subjective: WAS ADMITTED FOR TREATMENT OF PNEUMONIA. TODAY, HE IS ALERT AND ORIENTED, LYING IN BED ON MORNING ROUNDS. HE CONTINUES WITH A COUGH AND SHORTNESS OF BREATH. HE ALSO REPORTS GENERALIZED WEAKNESS AND NAUSEA TODAY. ON EXAMINATION, BILATERAL LUNGS CONTINUE WITH SCATTERED WHEEZING AND RHONCHI THROUGHOUT. ABDOMEN IS ROUND, SOFT, AND NON-TENDER WITH NORMAL BOWEL SOUNDS NOTED IN ALL QUADRANTS. HIS VITAL SIGNS TODAY ARE 98.3-81-20-100%-175/102. ABNORMAL LAB VALUES INCLUDE THE FOLLOWING: WBC 11.8, rbc 2.79, hgb 6.9, hct 20.5 , plt count 185, iron 17, ferratin 119. HE CONTINUES TO RECEIVE ANTIBIOTICS FOR TREATMENT OF KLEBSIELLA PNEUMONIAE. TODAY, WE WILL CONTINUE WITH CURRENT PLAN OF CARE. WE WILL ALSO TRANSFUSE TWO UNITS OF PACKED RED BLOOD CELLS AND MONITOR H&H. OTHERWISE, WE WILL FOLLOW UP WITH AM LABS AND CONTINUE TO MONITOR PATIENT. - Past Medical Family Social History Past Med/Fam/Surg Hx: No changes since H&P Allergies: Allergies codeine Allergy (Verified 07/30/17 02:52) morphine Allergy (Verified 07/30/17 02:52) - Review of Systems ROS: No change since H&P - Vital Signs and I&O's Vital Signs: Temperature 98.4 F Pulse Rate [Left Brachial] 92 Pulse Rate [Apical] 105 Pulse Rate 93 Respiratory Rate 18 Blood Pressure [Right Arm] 198/100 Blood Pressure [Left Arm] 153/93 Blood Pressure [Left Radial 160/102 Artery] Blood Pressure 111/57 O2 Sat by Pulse Oximetry 98 Intake and Output: Intake & Output 11/02/17 11/03/17 11/04/17 11/05/17 11:59 11:59 11:59 11:59 Intake Total 3979 4349 4567 Output Total 3260 3825 3850 Balance 719 524 717 - Physical Exam Oriented: Normal Eyes: Normal Ear: Normal Nose: Normal Throat: Normal Respiratory: Wheezes, Rhonchi Cardiovascular: Normal : Normal Auscultation: Bowel Sounds: Normal Palpation: Normal Tenderness: Normal Skin: Normal Musculoskeletal: Back:Lumbar, Tender Psychiatric: Normal Mood Description: Calm Affect: Normal Speech Pattern: Clear, Appropriate - Laboratory and Diagnostics Result Diagrams: 11/04/17 04:56 11/04/17 04:56 Labs: 10/28/17 18:33 Blood Blood Culture - Final Klebsiella Pneumoniae 10/28/17 18:27 Blood Blood Culture - Final Klebsiella Pneumoniae Laboratory WBC 14.9 X10^3/uL (3.6-10.0) H 11/04/17 04:56 RBC 3.55 X10^6/uL (4.7-6.0) L 11/04/17 04:56 Hgb 9.0 g/dL (13.5-18.0) L 11/04/17 04:56 Hct 26.2 % (42.0-54.0) L 11/04/17 04:56 MCV 74.0 fL (80.0-100.0) L 11/04/17 04:56 MCH 25.3 pg (27.0-34.0) L 11/04/17 04:56 MCHC 34.2 g/dL (33.0-35.0) 11/04/17 04:56 RDW 16.6 % (11.6-16.5) H 11/04/17 04:56 Plt Count 545 X10^3/uL (150.0-450.0) H 11/04/17 04:56 Plt Count Comment Increased (ADEQUATE) 11/04/17 04:56 MPV 6.9 fL (7.4-11.0) L 11/04/17 04:56 Neut % (Auto) 76.6 % (42.0-75.0) H 11/04/17 04:56 Lymph % (Auto) 11.8 % (21.0-51.0) L 11/04/17 04:56 [place] % (Auto) 9.3 % (0.0-13.0) 11/04/17 04:56 Eos % (Auto) 1.7 % (0.9-2.9) 11/04/17 04:56 Baso % (Auto) 0.6 % (0.2-1.0) 11/04/17 04:56 Neut # (Auto) 11.4 x10^3/uL (2.2-4.8) H 11/04/17 04:56 Lymph # (Auto) 1.8 X10^3/uL (1.3-2.9) 11/04/17 04:56 [place] # (Auto) 1.4 x10^3/uL (0.3-0.8) H 11/04/17 04:56 Eos # (Auto) 0.3 x10^3/uL (0.0-0.2) H 11/04/17 04:56 Baso # (Auto) 0.1 X10^3/uL (0.0-0.1) 11/04/17 04:56 Absolute Nucleated RBC 0.0 /100WBC 11/04/17 04:56 Total Counted 100 11/01/17 06:46 Neutrophils % (Manual) 73 % (39-76) 11/01/17 06:46 Band Neutrophils % 1 % (0-10) 11/01/17 06:46 Lymphocytes % (Manual) 14 % (13-43) 11/01/17 06:46 Monocytes % (Manual) 10 % (4-9) H 11/01/17 06:46 Eosinophils % (Manual) 2 % (0-6) 11/01/17 06:46 Plt Morphology Comment Normal (NORMAL) 11/04/17 04:56 RBC Morphology Abnormal (NORMAL) 11/04/17 04:56 Hypochromasia 1+ A 11/04/17 04:56 Anisocytosis Slight A 11/01/17 06:46 Microcytosis Slight A 11/04/17 04:56 Sodium 126 mmol/L (136-145) L 11/04/17 04:56 Corrected Sodium 129 mmol/L (136-145) L 11/04/17 04:56 Potassium 5.0 mmol/L (3.5-5.1) 11/04/17 04:56 Chloride 92 mmol/L (98-107) L 11/04/17 04:56 Carbon Dioxide 28.1 mmol/L (21-32) 11/04/17 04:56 BUN 13 mg/dL (7-18) 11/04/17 04:56 Creatinine 1.07 mg/dL (0.70-1.30) 11/04/17 04:56 Est GFR (MDRD) Af Amer > 60 (>60) 11/04/17 04:56 Est GFR (MDRD) Non-Af > 60 (>60) 11/04/17 04:56 Glucose 223 mg/dL (65-99) H 11/04/17 04:56 POC Glucose (mg/dL) 265 mg/dL (65-99) H 11/04/17 13:19 Lactic Acid 0.7 mmol/L (0.4-2.0) 10/29/17 05:45 Calcium 8.0 mg/dL (8.5-10.1) L 11/04/17 04:56 Corrected Calcium 9.1 mg/dL (8.5-10.1) 10/31/17 05:50 Phosphorus 1.9 mg/dL (2.6-4.7) L 11/04/17 14:14 Magnesium 1.9 mg/dL (1.7-2.9) 11/04/17 14:14 Iron 17 ug/dL (50-175) L 11/01/17 09:47 Transferrin 119 mg/dL (202-364) L 11/01/17 09:47 Ferritin 290 ng/mL (26-388) 11/01/17 09:47 Total Bilirubin 0.20 mg/dL (0.2-1.0) 10/31/17 05:50 AST 6 Units/L (15-37) L 10/31/17 05:50 ALT 10 Units/L (12-78) L 10/31/17 05:50 Alkaline Phosphatase 144 Units/L (46-116) H 10/31/17 05:50 Total Protein 8.1 g/dL (6.4-8.2) 10/31/17 05:50 Albumin 2.3 g/dL (3.4-5.0) L 10/31/17 05:50 Globulin 5.8 g/dL (2.5-4.5) H 10/31/17 05:50 Albumin/Globulin Ratio 0.4 Ratio (1.1-2.1) L 10/31/17 05:50 Prealbumin 10.3 mg/dL (18-35.7) L 10/30/17 04:23 Triglycerides 83 mg/dL (0-150) 11/04/17 14:14 Vitamin B12 720 pg/mL (193-986) 11/01/17 09:47 Folate 10.8 ng/mL (>8.6) 11/01/17 09:47 Blood Type O POSITIVE 11/01/17 09:47 Antibody Screen Negative 11/01/17 09:47 Crossmatch See Detail 11/01/17 09:47 - Plan (1) Pneumonia Status: Acute Qualifiers: Pneumonia type: due to Klebsiella pneumoniae Laterality: right Lung location: lower lobe of lung Qualified Code(s): J15.0 - Pneumonia due to Klebsiella pneumoniae Plan: PNEUMONIA PROTOCOL, ZOSYN, CIPRO, RESPIRATORY TREATMENTS, SUPPLEMENTAL OXYGEN, CONTINUE TO MONITOR (2) Diabetes mellitus type 1 Status: Chronic Qualifiers: Diabetes mellitus complication status: without complication Qualified Code( s): E10.9 - Type 1 diabetes mellitus without complications Plan: MONITOR OTBS, SLIDING SCALE INSULIN, CONTINUE TOUJEO, CONTINUE TO MONITOR (3) Anemia Status: Acute Qualifiers: Anemia type: iron deficiency Iron deficiency anemia type: chronic blood loss Qualified Code(s): D50.0 - Iron deficiency anemia secondary to blood loss (chronic) Plan: transfuse 2 units packed red blood cells, continue to monitor
[2017-11-04] MEDS: CLINIMIX IV SCH ×8 (17:31→21:19)
[2017-11-04] MEDS: [UNRECOGNIZED DRUG - OTHER] IV SCH ×8 (17:31→21:19)
[2017-11-04] MEDS: MVI IV SCH ×8 (17:31→21:19)
[2017-11-04] MEDS: TRACE ELEMENTS IV SCH ×8 (17:31→21:19)
--- NOTE | 2017-11-04 18:54 | PCM.PROG ---
Progress Note - Progress Note for Day of Date: 11/02/17 - Subjective Subjective: WAS ADMITTED FOR TREATMENT OF PNEUMONIA. TODAY, HE IS ALERT AND ORIENTED, LYING IN BED ON MORNING ROUNDS. HE CONTINUES WITH A COUGH, SHORTNESS OF BREATH, AND NAUSEA. ON EXAMINATION, BILATERAL LUNGS CONTINUE WITH SCATTERED WHEEZING AND RHONCHI THROUGHOUT. ABDOMEN IS ROUND, SOFT, AND NON- TENDER WITH NORMAL BOWEL SOUNDS NOTED IN ALL QUADRANTS. HIS VITAL SIGNS TODAY ARE 98.7-94-20-98%-196/113. ABNORMAL LAB VALUES INCLUDE THE FOLLOWING: WBC 13.1 , RBC 3.54, HGB 9.0, HCT 26.0, PLT COUNT 485, SODIUM 128, CHLORIDE 95, GLUCOSE 284, CALCIUM 7.7. A CHEST XRAY WAS RECEIVED TODAY AND REVEALED INTERVAL INCREASE IN PLEURAL PARENCHYMAL OPACITY AT THE RIGHT BASE WHICH MAY REPRESENT PNEUMONIA. HIS BLOOD PRESSURE REMAINS ELEVATED DESPITE TAKING ANTIHYPERTENSIVES. WE WILL ADMINISTER LABETALOL IV APPROPRIATE. HE CONTINUES ON IV ANTIBIOTICS FOR TREATMENT OF KLEBSIELLA PNEUMONIAE. TODAY, WE WILL CONTINUE WITH CURRENT PLAN OF CARE. OTHERWISE, WE WILL FOLLOW UP WITH AM LABS AND CONTINUE TO MONITOR PATIENT. - Past Medical Family Social History Past Med/Fam/Surg Hx: No changes since H&P Allergies: Allergies codeine Allergy (Verified 07/30/17 02:52) morphine Allergy (Verified 07/30/17 02:52) - Review of Systems ROS: No change since H&P - Vital Signs and I&O's Vital Signs: Temperature 98.2 F Pulse Rate [Left Brachial] 97 Pulse Rate [Apical] 105 Pulse Rate 104 Respiratory Rate 17 Blood Pressure [Right Arm] 198/100 Blood Pressure [Left Arm] 172/88 Blood Pressure [Left Radial 160/102 Artery] Blood Pressure 111/57 O2 Sat by Pulse Oximetry 99 Intake and Output: Intake & Output 11/02/17 11/03/17 11/04/17 11/05/17 11:59 11:59 11:59 11:59 Intake Total 3979 4349 4567 1884 Output Total 3260 3825 3850 1650 Balance 719 524 717 234 - Physical Exam Oriented: Normal Eyes: Normal Ear: Normal Nose: Normal Throat: Normal Respiratory: Wheezes, Rhonchi Cardiovascular: Normal : Normal Auscultation: Bowel Sounds: Normal Palpation: Normal Tenderness: Normal Skin: Normal Musculoskeletal: Back:Lumbar, Tender Psychiatric: Normal Mood Description: Calm Affect: Normal Speech Pattern: Clear, Appropriate - Laboratory and Diagnostics Result Diagrams: 11/04/17 04:56 11/04/17 04:56 Labs: 10/28/17 18:33 Blood Blood Culture - Final Klebsiella Pneumoniae 10/28/17 18:27 Blood Blood Culture - Final Klebsiella Pneumoniae Laboratory WBC 14.9 X10^3/uL (3.6-10.0) H 11/04/17 04:56 RBC 3.55 X10^6/uL (4.7-6.0) L 11/04/17 04:56 Hgb 9.0 g/dL (13.5-18.0) L 11/04/17 04:56 Hct 26.2 % (42.0-54.0) L 11/04/17 04:56 MCV 74.0 fL (80.0-100.0) L 11/04/17 04:56 MCH 25.3 pg (27.0-34.0) L 11/04/17 04:56 MCHC 34.2 g/dL (33.0-35.0) 11/04/17 04:56 RDW 16.6 % (11.6-16.5) H 11/04/17 04:56 Plt Count 545 X10^3/uL (150.0-450.0) H 11/04/17 04:56 Plt Count Comment Increased (ADEQUATE) 11/04/17 04:56 MPV 6.9 fL (7.4-11.0) L 11/04/17 04:56 Neut % (Auto) 76.6 % (42.0-75.0) H 11/04/17 04:56 Lymph % (Auto) 11.8 % (21.0-51.0) L 11/04/17 04:56 [place] % (Auto) 9.3 % (0.0-13.0) 11/04/17 04:56 Eos % (Auto) 1.7 % (0.9-2.9) 11/04/17 04:56 Baso % (Auto) 0.6 % (0.2-1.0) 11/04/17 04:56 Neut # (Auto) 11.4 x10^3/uL (2.2-4.8) H 11/04/17 04:56 Lymph # (Auto) 1.8 X10^3/uL (1.3-2.9) 11/04/17 04:56 [place] # (Auto) 1.4 x10^3/uL (0.3-0.8) H 11/04/17 04:56 Eos # (Auto) 0.3 x10^3/uL (0.0-0.2) H 11/04/17 04:56 Baso # (Auto) 0.1 X10^3/uL (0.0-0.1) 11/04/17 04:56 Absolute Nucleated RBC 0.0 /100WBC 11/04/17 04:56 Total Counted 100 11/01/17 06:46 Neutrophils % (Manual) 73 % (39-76) 11/01/17 06:46 Band Neutrophils % 1 % (0-10) 11/01/17 06:46 Lymphocytes % (Manual) 14 % (13-43) 11/01/17 06:46 Monocytes % (Manual) 10 % (4-9) H 11/01/17 06:46 Eosinophils % (Manual) 2 % (0-6) 11/01/17 06:46 Plt Morphology Comment Normal (NORMAL) 11/04/17 04:56 RBC Morphology Abnormal (NORMAL) 11/04/17 04:56 Hypochromasia 1+ A 11/04/17 04:56 Anisocytosis Slight A 11/01/17 06:46 Microcytosis Slight A 11/04/17 04:56 Sodium 126 mmol/L (136-145) L 11/04/17 04:56 Corrected Sodium 129 mmol/L (136-145) L 11/04/17 04:56 Potassium 5.0 mmol/L (3.5-5.1) 11/04/17 04:56 Chloride 92 mmol/L (98-107) L 11/04/17 04:56 Carbon Dioxide 28.1 mmol/L (21-32) 11/04/17 04:56 BUN 13 mg/dL (7-18) 11/04/17 04:56 Creatinine 1.07 mg/dL (0.70-1.30) 11/04/17 04:56 Est GFR (MDRD) Af Amer > 60 (>60) 11/04/17 04:56 Est GFR (MDRD) Non-Af > 60 (>60) 11/04/17 04:56 Glucose 223 mg/dL (65-99) H 11/04/17 04:56 POC Glucose (mg/dL) 265 mg/dL (65-99) H 11/04/17 13:19 Lactic Acid 0.7 mmol/L (0.4-2.0) 10/29/17 05:45 Calcium 8.0 mg/dL (8.5-10.1) L 11/04/17 04:56 Corrected Calcium 9.1 mg/dL (8.5-10.1) 10/31/17 05:50 Phosphorus 1.9 mg/dL (2.6-4.7) L 11/04/17 14:14 Magnesium 1.9 mg/dL (1.7-2.9) 11/04/17 14:14 Iron 17 ug/dL (50-175) L 11/01/17 09:47 Transferrin 119 mg/dL (202-364) L 11/01/17 09:47 Ferritin 290 ng/mL (26-388) 11/01/17 09:47 Total Bilirubin 0.20 mg/dL (0.2-1.0) 10/31/17 05:50 AST 6 Units/L (15-37) L 10/31/17 05:50 ALT 10 Units/L (12-78) L 10/31/17 05:50 Alkaline Phosphatase 144 Units/L (46-116) H 10/31/17 05:50 Total Protein 8.1 g/dL (6.4-8.2) 10/31/17 05:50 Albumin 2.3 g/dL (3.4-5.0) L 10/31/17 05:50 Globulin 5.8 g/dL (2.5-4.5) H 10/31/17 05:50 Albumin/Globulin Ratio 0.4 Ratio (1.1-2.1) L 10/31/17 05:50 Prealbumin 10.3 mg/dL (18-35.7) L 10/30/17 04:23 Triglycerides 83 mg/dL (0-150) 11/04/17 14:14 Vitamin B12 720 pg/mL (193-986) 11/01/17 09:47 Folate 10.8 ng/mL (>8.6) 11/01/17 09:47 Blood Type O POSITIVE 11/01/17 09:47 Antibody Screen Negative 11/01/17 09:47 Crossmatch See Detail 11/01/17 09:47 - Plan (1) Pneumonia Status: Acute Qualifiers: Pneumonia type: due to Klebsiella pneumoniae Laterality: right Lung location: lower lobe of lung Qualified Code(s): J15.0 - Pneumonia due to Klebsiella pneumoniae Plan: PNEUMONIA PROTOCOL, ZOSYN, CIPRO, RESPIRATORY TREATMENTS, SUPPLEMENTAL OXYGEN, CONTINUE TO MONITOR (2) Diabetes mellitus type 1 Status: Chronic Qualifiers: Diabetes mellitus complication status: without complication Qualified Code( s): E10.9 - Type 1 diabetes mellitus without complications Plan: MONITOR OTBS, SLIDING SCALE INSULIN, CONTINUE TOUJEO, CONTINUE TO MONITOR (3) Anemia Status: Acute Qualifiers: Anemia type: iron deficiency Iron deficiency anemia type: chronic blood loss Qualified Code(s): D50.0 - Iron deficiency anemia secondary to blood loss (chronic) Plan: transfuse 2 units packed red blood cells, continue to monitor (4) Hypertension Status: Chronic Qualifiers: Hypertension type: essential hypertension Qualified Code(s): I10 - Essential (primary) hypertension Plan: CONTINUE CATAPRES PATCH, LABETALOL IV, LOSARTAN 100MG PO DAILY, CONTINUE TO MONITOR
--- NOTE | 2017-11-04 19:50 | PCM.PROG ---
Progress Note - Progress Note for Day of Date: 11/04/17 - Subjective Subjective: WAS ADMITTED FOR TREATMENT OF PNEUMONIA. TODAY, HE IS ALERT AND ORIENTED, LYING IN BED ON MORNING ROUNDS. HE CONTINUES WITH A COUGH, SHORTNESS OF BREATH, AND NAUSEA. ON EXAMINATION, BILATERAL LUNGS CONTINUE WITH SCATTERED WHEEZING AND RHONCHI THROUGHOUT. ABDOMEN IS ROUND, SOFT, AND NON- TENDER WITH NORMAL BOWEL SOUNDS NOTED IN ALL QUADRANTS. HIS VITAL SIGNS TODAY ARE 97.7-109-16-97%-125/81. ABNORMAL LAB VALUES INCLUDE THE FOLLOWING: WBC 14.9 , RBC 3.55, HGB 9.0, HCT 26.2, PLT COUNT 545, SODIUM 126, CHLORIDE 92, GLUCOSE 223, CALCIUM 8.0, PHOSPHORUS 1.9. A CHEST XRAY WAS RECEIVED TODAY AND REVEALED PERSISTENT RIGHT LUNG OPACITY AND EFFUSION, COMPATIBLE WITH PNEUMONIA. HE CONTINUES ON IV ANTIBIOTICS FOR TREATMENT OF KLEBSIELLA PNEUMONIAE. THE ZOSYN WAS DISCONTINUED YESTERDAY AND INVANZ 1GM IV DAILY WAS STARTED. DUE TO RECURRENT EPISODES OF KLEBSIELLA PNEUMONIAE IN BLOOD CULTURES OVER THE PAST SEVERAL MONTHS, WE WILL CONSULT DR. MILLAN FOR POSSIBLE REMOVAL OF HIS PORT A CATH. OTHERWISE, WE WILL CONTINUE WITH CURRENT PLAN OF CARE TODAY. WE WILL FOLLOW UP WITH AM LABS AND CONTINUE TO MONITOR PATIENT. - Past Medical Family Social History Past Med/Fam/Surg Hx: No changes since H&P Allergies: Allergies codeine Allergy (Verified 07/30/17 02:52) morphine Allergy (Verified 07/30/17 02:52) - Review of Systems ROS: No change since H&P - Vital Signs and I&O's Vital Signs: Temperature 98.2 F Pulse Rate [Left Brachial] 97 Pulse Rate [Apical] 105 Pulse Rate 104 Respiratory Rate 17 Blood Pressure [Right Arm] 198/100 Blood Pressure [Left Arm] 172/88 Blood Pressure [Left Radial 160/102 Artery] Blood Pressure 111/57 O2 Sat by Pulse Oximetry 99 Intake and Output: Intake & Output 11/02/17 11/03/17 11/04/17 11/05/17 11:59 11:59 11:59 11:59 Intake Total 3979 4349 4567 1884 Output Total 3260 3825 3850 1650 Balance 719 524 717 234 - Physical Exam Oriented: Normal Eyes: Normal Ear: Normal Nose: Normal Throat: Normal Respiratory: Wheezes, Rhonchi Cardiovascular: Normal : Normal Auscultation: Bowel Sounds: Normal Palpation: Normal Tenderness: Normal Skin: Normal Musculoskeletal: Back:Lumbar, Tender Psychiatric: Normal Mood Description: Calm Affect: Normal Speech Pattern: Clear, Appropriate - Laboratory and Diagnostics Result Diagrams: 11/04/17 04:56 11/04/17 04:56 Labs: 10/28/17 18:33 Blood Blood Culture - Final Klebsiella Pneumoniae 10/28/17 18:27 Blood Blood Culture - Final Klebsiella Pneumoniae Laboratory WBC 14.9 X10^3/uL (3.6-10.0) H 11/04/17 04:56 RBC 3.55 X10^6/uL (4.7-6.0) L 11/04/17 04:56 Hgb 9.0 g/dL (13.5-18.0) L 11/04/17 04:56 Hct 26.2 % (42.0-54.0) L 11/04/17 04:56 MCV 74.0 fL (80.0-100.0) L 11/04/17 04:56 MCH 25.3 pg (27.0-34.0) L 11/04/17 04:56 MCHC 34.2 g/dL (33.0-35.0) 11/04/17 04:56 RDW 16.6 % (11.6-16.5) H 11/04/17 04:56 Plt Count 545 X10^3/uL (150.0-450.0) H 11/04/17 04:56 Plt Count Comment Increased (ADEQUATE) 11/04/17 04:56 MPV 6.9 fL (7.4-11.0) L 11/04/17 04:56 Neut % (Auto) 76.6 % (42.0-75.0) H 11/04/17 04:56 Lymph % (Auto) 11.8 % (21.0-51.0) L 11/04/17 04:56 [place] % (Auto) 9.3 % (0.0-13.0) 11/04/17 04:56 Eos % (Auto) 1.7 % (0.9-2.9) 11/04/17 04:56 Baso % (Auto) 0.6 % (0.2-1.0) 11/04/17 04:56 Neut # (Auto) 11.4 x10^3/uL (2.2-4.8) H 11/04/17 04:56 Lymph # (Auto) 1.8 X10^3/uL (1.3-2.9) 11/04/17 04:56 [place] # (Auto) 1.4 x10^3/uL (0.3-0.8) H 11/04/17 04:56 Eos # (Auto) 0.3 x10^3/uL (0.0-0.2) H 11/04/17 04:56 Baso # (Auto) 0.1 X10^3/uL (0.0-0.1) 11/04/17 04:56 Absolute Nucleated RBC 0.0 /100WBC 11/04/17 04:56 Total Counted 100 11/01/17 06:46 Neutrophils % (Manual) 73 % (39-76) 11/01/17 06:46 Band Neutrophils % 1 % (0-10) 11/01/17 06:46 Lymphocytes % (Manual) 14 % (13-43) 11/01/17 06:46 Monocytes % (Manual) 10 % (4-9) H 11/01/17 06:46 Eosinophils % (Manual) 2 % (0-6) 11/01/17 06:46 Plt Morphology Comment Normal (NORMAL) 11/04/17 04:56 RBC Morphology Abnormal (NORMAL) 11/04/17 04:56 Hypochromasia 1+ A 11/04/17 04:56 Anisocytosis Slight A 11/01/17 06:46 Microcytosis Slight A 11/04/17 04:56 Sodium 126 mmol/L (136-145) L 11/04/17 04:56 Corrected Sodium 129 mmol/L (136-145) L 11/04/17 04:56 Potassium 5.0 mmol/L (3.5-5.1) 11/04/17 04:56 Chloride 92 mmol/L (98-107) L 11/04/17 04:56 Carbon Dioxide 28.1 mmol/L (21-32) 11/04/17 04:56 BUN 13 mg/dL (7-18) 11/04/17 04:56 Creatinine 1.07 mg/dL (0.70-1.30) 11/04/17 04:56 Est GFR (MDRD) Af Amer > 60 (>60) 11/04/17 04:56 Est GFR (MDRD) Non-Af > 60 (>60) 11/04/17 04:56 Glucose 223 mg/dL (65-99) H 11/04/17 04:56 POC Glucose (mg/dL) 265 mg/dL (65-99) H 11/04/17 13:19 Lactic Acid 0.7 mmol/L (0.4-2.0) 10/29/17 05:45 Calcium 8.0 mg/dL (8.5-10.1) L 11/04/17 04:56 Corrected Calcium 9.1 mg/dL (8.5-10.1) 10/31/17 05:50 Phosphorus 1.9 mg/dL (2.6-4.7) L 11/04/17 14:14 Magnesium 1.9 mg/dL (1.7-2.9) 11/04/17 14:14 Iron 17 ug/dL (50-175) L 11/01/17 09:47 Transferrin 119 mg/dL (202-364) L 11/01/17 09:47 Ferritin 290 ng/mL (26-388) 11/01/17 09:47 Total Bilirubin 0.20 mg/dL (0.2-1.0) 10/31/17 05:50 AST 6 Units/L (15-37) L 10/31/17 05:50 ALT 10 Units/L (12-78) L 10/31/17 05:50 Alkaline Phosphatase 144 Units/L (46-116) H 10/31/17 05:50 Total Protein 8.1 g/dL (6.4-8.2) 10/31/17 05:50 Albumin 2.3 g/dL (3.4-5.0) L 10/31/17 05:50 Globulin 5.8 g/dL (2.5-4.5) H 10/31/17 05:50 Albumin/Globulin Ratio 0.4 Ratio (1.1-2.1) L 10/31/17 05:50 Prealbumin 10.3 mg/dL (18-35.7) L 10/30/17 04:23 Triglycerides 83 mg/dL (0-150) 05/29/18 14:14 Vitamin B12 720 pg/mL (193-986) 11/01/17 09:47 Folate 10.8 ng/mL (>8.6) 11/01/17 09:47 Blood Type O POSITIVE 11/01/17 09:47 Antibody Screen Negative 11/01/17 09:47 Crossmatch See Detail 11/01/17 09:47 - Plan (1) Pneumonia Status: Acute Qualifiers: Pneumonia type: due to Klebsiella pneumoniae Laterality: right Lung location: lower lobe of lung Qualified Code(s): J15.0 - Pneumonia due to Klebsiella pneumoniae Plan: PNEUMONIA PROTOCOL, INVANZ, CIPRO, RESPIRATORY TREATMENTS, SUPPLEMENTAL OXYGEN, CONTINUE TO MONITOR (2) Diabetes mellitus type 1 Status: Chronic Qualifiers: Diabetes mellitus complication status: without complication Qualified Code( s): E10.9 - Type 1 diabetes mellitus without complications Plan: MONITOR OTBS, SLIDING SCALE INSULIN, CONTINUE TOUJEO, CONTINUE TO MONITOR (3) Anemia Status: Acute Qualifiers: Anemia type: iron deficiency Iron deficiency anemia type: chronic blood loss Qualified Code(s): D50.0 - Iron deficiency anemia secondary to blood loss (chronic) Plan: transfuse 2 units packed red blood cells, continue to monitor (4) Hypertension Status: Chronic Qualifiers: Hypertension type: essential hypertension Qualified Code(s): I10 - Essential (primary) hypertension Plan: CONTINUE CATAPRES PATCH, LABETALOL IV, LOSARTAN 100MG PO DAILY, CONTINUE TO MONITOR
[2017-11-04] MEDS: TOUJEO SOLOSTAR PEN SC SCH (21:16)
[2017-11-04] MEDS: COLACE CAP 100 MG PO SCH (21:17)
[2017-11-04] MEDS: SNACK - Diabetic Appropriate PO SCH (21:21)
[2017-11-04] MEDS: CATAPRES-TTS-3 TD SCH (21:22)
[2017-11-05] MEDS: NS 1/2 1000 ML IV 1,000 ML IV SCH ×3 (01:30→21:21)
[2017-11-05] MEDS: DEMEROL INJ IVP PRN ×2 (02:06→10:16)
[2017-11-05 05:45] LABS: BASOPHILS # (AUTO) 0.1 X10^3/uL (0.0-0.1); BASOPHILS % (AUTO) 0.5 % (0.2-1.0); EOSINOPHILS # (AUTO) 0.3 x10^3/uL (0.0-0.2); EOSINOPHILS % (AUTO) 2.7 % (0.9-2.9); HEMOGLOBIN 8.5 g/dL (13.5-18.0); LYMPHOCYTES # (AUTO) 1.9 X10^3/uL (1.3-2.9); LYMPHOCYTES % (AUTO) 16.8 % (21.0-51.0); MEAN CORPUSCULAR HEMOGLOBIN 25.5 pg (27.0-34.0); MEAN CORPUSCULAR HGB CONC 34.1 g/dL (33.0-35.0); MEAN CORPUSCULAR VOLUME 74.6 fL (80.0-100.0); MEAN PLATELET VOLUME 6.8 fL (7.4-11.0); MONOCYTES # (AUTO) 1.1 x10^3/uL (0.3-0.8); MONOCYTES % (AUTO) 9.9 % (0.0-13.0); NEUTROPHILS # (AUTO) 7.8 x10^3/uL (2.2-4.8); NEUTROPHILS % (AUTO) 70.1 % (42.0-75.0); PLATELET COUNT 517 X10^3/uL (150.0-450.0); RED BLOOD COUNT 3.36 X10^6/uL (4.7-6.0); RED CELL DISTRIBUTION WIDTH 17.3 % (11.6-16.5); WHITE BLOOD COUNT 11.2 X10^3/uL (3.6-10.0)
[2017-11-05 05:55] LABS: PREALBUMIN 15.6 mg/dL (18-35.7)
[2017-11-05 06:15] LABS: ALANINE AMINOTRANSFERASE 28 Units/L (12-78); ALKALINE PHOSPHATASE 122 Units/L (46-116); ASPARTATE AMINO TRANSFERASE 16 Units/L (15-37); BLOOD UREA NITROGEN 16 mg/dL (7-18); CALCIUM 8.1 mg/dL (8.5-10.1); CARBON DIOXIDE 27.6 mmol/L (21-32); CHLORIDE 95 mmol/L (98-107); COR CA(FOR HYPOALB) 8.9 mg/dL (8.5-10.1); COR NA(FOR HYPERGLY) 130 mmol/L (136-145); CREATININE 0.99 mg/dL (0.70-1.30); SODIUM 129 mmol/L (136-145); TOTAL PROTEIN 8.2 g/dL (6.4-8.2); eGFR NON BLACK RACES > 60 (>60)
[2017-11-05 06:16] LABS: ANISOCYTOSIS 1+; HYPOCHROMASIA 1+; MICROCYTOSIS 1+; PLATELET MORPHOLOGY COMMENT NORMAL (NORMAL)
--- NOTE | 2017-11-05 07:28 | RAD ---
Clinical history: Pneumonia, diabetes, hypertension Exam: Chest one view Comparison: 11/04/2017 Findings: A subcutaneous injection port overlies the right upper lung field tip of the catheter is in superior vena cava. The trachea is midline with no widening or shift of the mediastinum. The heart i s top-normal in size. A poor inspiratory effort is present with the dome of the right diaphragm at th e level the right posterior 8th rib. Patchy infiltrate is again identified at the right lung base. A right pleural effusion extends up the right lateral chest wall and blunts the right costophrenic angle. The left lung appears adequately a erated. Impression: Poor inspiratory effort. No significant improvement in right lower lobe infiltrate since the previous study. Mild to moderate right pleural effusion tracking up the right lateral chest wall. Reported By:
[2017-11-05] MEDS: COZAAR PO SCH (08:09)
[2017-11-05] MEDS: PEPCID TAB 20 MG PO SCH ×2 (08:09→21:05)
[2017-11-05] MEDS: ALBUMIN HUMAN 25%- 100 ML 100 ML IV SCH (08:10)
[2017-11-05] MEDS: CIPRO IV 400 MG PREMIX* 400 MG/200 ML IV.SOLN. IV SCH ×2 (08:10→21:05)
[2017-11-05] MEDS: K-DUR TAB 20 MEQ PO SCH (08:10)
[2017-11-05] MEDS: PROTONIX TAB 40 MG PO SCH ×2 (08:10→21:05)
[2017-11-05] MEDS: ROBITUSSIN DM PO SCH ×4 (08:10→21:05)
[2017-11-05] MEDS: MILK OF MAGNESIA PO SCH ×2 (08:10→21:21)
[2017-11-05] MEDS: INVANZ INJ 1 GM VIAL 1 GM in NS 100 ML IV + SPIKE MINIBAG* 100 ML IV SCH (08:11)
[2017-11-05] MEDS: CHECK PATCH XX SCH ×2 (08:13→21:24)
[2017-11-05] MEDS: XOPENEX 1.25 MG/3 ML NEBULE NEB SCH ×4 (08:32→20:21)
[2017-11-05] MEDS ORDERED: VERSED ONE (10:10)
[2017-11-05] MEDS ORDERED: DIPRIVAN VIAL ONE (10:10)
[2017-11-05] MEDS: PHENERGAN INJ 25 MG IV PRN (10:15)
[2017-11-05] MEDS ORDERED: LR 1000 ML IV 1,000 ML IV ONE (11:52)
[2017-11-05] MEDS ORDERED: BACITRACIN VIAL ONE (12:54)
[2017-11-05] MEDS ORDERED: XYLOCAINE 1 % (PLAIN) ONE (13:01)
[2017-11-05] MEDS ORDERED: NS IRRIGATION 1000 ML 1,000 ML with BACITRACIN VIAL 50,000 UNIT IR ONE ×2 (13:15)
--- NOTE | 2017-11-05 14:36 | PCM.PROG ---
Progress Note - Progress Note for Day of Date: 11/05/17 - Subjective Subjective: WAS ADMITTED FOR TREATMENT OF PNEUMONIA. TODAY, HE IS ALERT AND ORIENTED, LYING IN BED ON MORNING ROUNDS. HE CONTINUES WITH A NON PRODUCTIVE COUGH AND SHORTNESS OF BREATH. HE REPORTS THAT SYMPTOMS HAVE IMPROVED SINCE YESTERDAY. ON EXAMINATION, BILATERAL LUNGS CONTINUE WITH SCATTERED WHEEZING AND RHONCHI THROUGHOUT. ABDOMEN IS ROUND, SOFT, AND NON- TENDER WITH NORMAL BOWEL SOUNDS NOTED IN ALL QUADRANTS. HIS VITAL SIGNS TODAY ARE 98.6-93-18-99%-144/80. ABNORMAL LAB VALUES INCLUDE THE FOLLOWING: WBC 11.2, RBC 3.36, HGB 8.5, HCT 25.0, SODIUM 129, CHLORIDE 95, GLUCOSE 141, CALCIUM 8.1, ALK PHOS 122, ALBUMIN 3.0, GLOBULIN 5.2. A CHEST XRAY WAS RECEIVED TODAY AND REVEALED POOR INSPIRATORY INFORT. NO SIGNIFIANT INVOLVEMENT IN RIGHT LOWER LOBE INFILTRATE SINCE THE PREVIOUS STUDY. MILD TO MODERATE RIGHT PLEURAL EFFUSION TRACKING UP THE RIGHT LATERAL CHEST WALL. REQUEST THAT WE CONSULT FOR REMOVAL OF PORT A CATH. WE WILL CONSULT HIM AND HOLD PATIENT NPO. OTHERWISE, WE WILL CONTINUE WITH CURRENT PLAN OF CARE TODAY. WE WILL FOLLOW UP WITH AM LABS AND CONTINUE TO MONITOR PATIENT. - Past Medical Family Social History Past Med/Fam/Surg Hx: No changes since H&P Allergies: Allergies codeine Allergy (Verified 07/30/17 02:52) morphine Allergy (Verified 07/30/17 02:52) - Review of Systems ROS: No change since H&P - Vital Signs and I&O's Vital Signs: Temperature 98.3 F Pulse Rate [Left Brachial] 93 Pulse Rate [Apical] 105 Pulse Rate 101 Respiratory Rate 18 Blood Pressure [Right Arm] 198/100 Blood Pressure [Left Arm] 144/80 Blood Pressure [Left Radial 160/102 Artery] Blood Pressure 195/111 O2 Sat by Pulse Oximetry 98 Intake and Output: Intake & Output 11/03/17 11/04/17 11/05/17 11/06/17 11:59 11:59 11:59 11:59 Intake Total 4349 4567 4244 Output Total 3825 3850 3010 105 Balance 042 503 2716 -105 - Physical Exam Oriented: Normal Eyes: Normal Ear: Normal Nose: Normal Throat: Normal Respiratory: Wheezes, Rhonchi Cardiovascular: Normal : Normal Auscultation: Bowel Sounds: Normal Palpation: Normal Tenderness: Normal Skin: Normal Musculoskeletal: Back:Lumbar, Tender Psychiatric: Normal Mood Description: Calm Affect: Normal Speech Pattern: Clear, Appropriate - Laboratory and Diagnostics Result Diagrams: 11/05/17 05:17 11/05/17 05:17 Labs: 10/28/17 18:33 Blood Blood Culture - Final Klebsiella Pneumoniae 10/28/17 18:27 Blood Blood Culture - Final Klebsiella Pneumoniae Laboratory WBC 11.2 X10^3/uL (3.6-10.0) H 11/05/17 05:17 RBC 3.36 X10^6/uL (4.7-6.0) L 11/05/17 05:17 Hgb 8.5 g/dL (13.5-18.0) L 11/05/17 05:17 Hct 25.0 % (42.0-54.0) L 11/05/17 05:17 MCV 74.6 fL (80.0-100.0) L 11/05/17 05:17 MCH 25.5 pg (27.0-34.0) L 11/05/17 05:17 MCHC 34.1 g/dL (33.0-35.0) 11/05/17 05:17 RDW 17.3 % (11.6-16.5) H 11/05/17 05:17 Plt Count 517 X10^3/uL (150.0-450.0) H 11/05/17 05:17 Plt Count Comment Increased (ADEQUATE) 11/05/17 05:17 MPV 6.8 fL (7.4-11.0) L 11/05/17 05:17 Neut % (Auto) 70.1 % (42.0-75.0) 11/05/17 05:17 Lymph % (Auto) 16.8 % (21.0-51.0) L 11/05/17 05:17 [place] % (Auto) 9.9 % (0.0-13.0) 11/05/17 05:17 Eos % (Auto) 2.7 % (0.9-2.9) 11/05/17 05:17 Baso % (Auto) 0.5 % (0.2-1.0) 11/05/17 05:17 Neut # (Auto) 7.8 x10^3/uL (2.2-4.8) H 11/05/17 05:17 Lymph # (Auto) 1.9 X10^3/uL (1.3-2.9) 11/05/17 05:17 [place] # (Auto) 1.1 x10^3/uL (0.3-0.8) H 11/05/17 05:17 Eos # (Auto) 0.3 x10^3/uL (0.0-0.2) H 11/05/17 05:17 Baso # (Auto) 0.1 X10^3/uL (0.0-0.1) 11/05/17 05:17 Absolute Nucleated RBC 0.0 /100WBC 11/05/17 05:17 Total Counted 100 11/01/17 06:46 Neutrophils % (Manual) 73 % (39-76) 11/01/17 06:46 Band Neutrophils % 1 % (0-10) 11/01/17 06:46 Lymphocytes % (Manual) 14 % (13-43) 11/01/17 06:46 Monocytes % (Manual) 10 % (4-9) H 11/01/17 06:46 Eosinophils % (Manual) 2 % (0-6) 11/01/17 06:46 Plt Morphology Comment Normal (NORMAL) 11/05/17 05:17 RBC Morphology Abnormal (NORMAL) 11/05/17 05:17 Hypochromasia 1+ A 11/05/17 05:17 Anisocytosis 1+ A 11/05/17 05:17 Microcytosis 1+ A 11/05/17 05:17 Sodium 129 mmol/L (136-145) L 11/05/17 05:17 Corrected Sodium 130 mmol/L (136-145) L 11/05/17 05:17 Potassium 5.1 mmol/L (3.5-5.1) 11/05/17 05:17 Chloride 95 mmol/L (98-107) L 11/05/17 05:17 Carbon Dioxide 27.6 mmol/L (21-32) 11/05/17 05:17 BUN 16 mg/dL (7-18) 11/05/17 05:17 Creatinine 0.99 mg/dL (0.70-1.30) 11/05/17 05:17 Est GFR (MDRD) Af Amer > 60 (>60) 11/05/17 05:17 Est GFR (MDRD) Non-Af > 60 (>60) 11/05/17 05:17 Glucose 141 mg/dL (65-99) H 11/05/17 05:17 POC Glucose (mg/dL) 213 mg/dL (65-99) H 11/05/17 13:09 Lactic Acid 0.7 mmol/L (0.4-2.0) 10/29/17 05:45 Calcium 8.1 mg/dL (8.5-10.1) L 11/05/17 05:17 Corrected Calcium 8.9 mg/dL (8.5-10.1) 11/05/17 05:17 Phosphorus 1.9 mg/dL (2.6-4.7) L 11/04/17 14:14 Magnesium 1.9 mg/dL (1.7-2.9) 11/04/17 14:14 Iron 17 ug/dL (50-175) L 11/01/17 09:47 Transferrin 119 mg/dL (202-364) L 11/01/17 09:47 Ferritin 290 ng/mL (26-388) 11/01/17 09:47 Total Bilirubin 0.30 mg/dL (0.2-1.0) 11/05/17 05:17 AST 16 Units/L (15-37) 11/05/17 05:17 ALT 28 Units/L (12-78) 11/05/17 05:17 Alkaline Phosphatase 122 Units/L (46-116) H 11/05/17 05:17 Total Protein 8.2 g/dL (6.4-8.2) 11/05/17 05:17 Albumin 3.0 g/dL (3.4-5.0) L 11/05/17 05:17 Globulin 5.2 g/dL (2.5-4.5) H 11/05/17 05:17 Albumin/Globulin Ratio 0.6 Ratio (1.1-2.1) L 11/05/17 05:17 Prealbumin 15.6 mg/dL (18-35.7) L 11/05/17 05:17 Triglycerides 83 mg/dL (0-150) 11/04/17 14:14 Vitamin B12 720 pg/mL (193-986) 11/01/17 09:47 Folate 10.8 ng/mL (>8.6) 11/01/17 09:47 Blood Type O POSITIVE 11/01/17 09:47 Antibody Screen Negative 11/01/17 09:47 Crossmatch See Detail 11/01/17 09:47 - Plan (1) Pneumonia Status: Acute Qualifiers: Pneumonia type: due to Klebsiella pneumoniae Laterality: right Lung location: lower lobe of lung Qualified Code(s): J15.0 - Pneumonia due to Klebsiella pneumoniae Plan: PNEUMONIA PROTOCOL, INVANZ, CIPRO, RESPIRATORY TREATMENTS, SUPPLEMENTAL OXYGEN, CONTINUE TO MONITOR (2) Diabetes mellitus type 1 Status: Chronic Qualifiers: Diabetes mellitus complication status: without complication Qualified Code( s): E10.9 - Type 1 diabetes mellitus without complications Plan: MONITOR OTBS, SLIDING SCALE INSULIN, CONTINUE TOUJEO, CONTINUE TO MONITOR (3) Anemia Status: Acute Qualifiers: Anemia type: iron deficiency Iron deficiency anemia type: chronic blood loss Qualified Code(s): D50.0 - Iron deficiency anemia secondary to blood loss (chronic) Plan: transfuse 2 units packed red blood cells, continue to monitor (4) Hypertension Status: Chronic Qualifiers: Hypertension type: essential hypertension Qualified Code(s): I10 - Essential (primary) hypertension Plan: CONTINUE CATAPRES PATCH, LABETALOL IV, LOSARTAN 100MG PO DAILY, CONTINUE TO MONITOR
[2017-11-05] MEDS: TRACE ELEMENTS IV SCH ×8 (15:30→21:21)
[2017-11-05] MEDS: CLINIMIX IV SCH ×8 (15:30→21:21)
[2017-11-05] MEDS: [UNRECOGNIZED DRUG - OTHER] IV SCH ×8 (15:30→21:21)
[2017-11-05] MEDS: MVI IV SCH ×8 (15:30→21:21)
[2017-11-05] MEDS ORDERED: NS 1/2 1000 ML IV 1,000 ML IV ONE (20:45)
[2017-11-05] MEDS: TOUJEO SOLOSTAR PEN SC SCH (21:05)
[2017-11-05] MEDS: SNACK - Diabetic Appropriate PO SCH (21:05)
[2017-11-05] MEDS: NORCO 10/325 TAB PO PRN (21:05)
[2017-11-05] MEDS: COLACE CAP 100 MG PO SCH (21:21)
[2017-11-06 05:38] LABS: BASOPHILS % (AUTO) 0.4 % (0.2-1.0); EOSINOPHILS # (AUTO) 0.3 x10^3/uL (0.0-0.2); EOSINOPHILS % (AUTO) 2.3 % (0.9-2.9); HEMOGLOBIN 8.9 g/dL (13.5-18.0); LYMPHOCYTES # (AUTO) 1.6 X10^3/uL (1.3-2.9); LYMPHOCYTES % (AUTO) 14.3 % (21.0-51.0); MEAN CORPUSCULAR HEMOGLOBIN 25.3 pg (27.0-34.0); MEAN CORPUSCULAR VOLUME 74.4 fL (80.0-100.0); MEAN PLATELET VOLUME 6.5 fL (7.4-11.0); MONOCYTES # (AUTO) 1.2 x10^3/uL (0.3-0.8); MONOCYTES % (AUTO) 10.6 % (0.0-13.0); NEUTROPHILS # (AUTO) 8.1 x10^3/uL (2.2-4.8); NEUTROPHILS % (AUTO) 72.4 % (42.0-75.0); PLATELET COUNT 548 X10^3/uL (150.0-450.0); WHITE BLOOD COUNT 11.2 X10^3/uL (3.6-10.0)
[2017-11-06 05:49] LABS: ALANINE AMINOTRANSFERASE 27 Units/L (12-78); ALBUMIN 3.2 g/dL (3.4-5.0); ALKALINE PHOSPHATASE 111 Units/L (46-116); ASPARTATE AMINO TRANSFERASE 15 Units/L (15-37); BLOOD UREA NITROGEN 19 mg/dL (7-18); CALCIUM 8.5 mg/dL (8.5-10.1); CARBON DIOXIDE 27.9 mmol/L (21-32); CHLORIDE 96 mmol/L (98-107); COR CA(FOR HYPOALB) 9.1 mg/dL (8.5-10.1); CREATININE 1.06 mg/dL (0.70-1.30); SODIUM 129 mmol/L (136-145); TOTAL PROTEIN 8.7 g/dL (6.4-8.2); eGFR NON BLACK RACES > 60 (>60)
[2017-11-06 05:50] LABS: ANISOCYTOSIS 1+; HYPOCHROMASIA 1+; MICROCYTOSIS SLIGHT; PLATELET MORPHOLOGY COMMENT NORMAL (NORMAL)
[2017-11-06] MEDS ORDERED: NS 1/2 1000 ML IV 1,000 ML IV ONE ×2 (06:11→23:44)
--- NOTE | 2017-11-06 07:29 | RAD ---
History: Pneumonia, collapse along, comparison 11/05/2017 Study: PA upright chest shows interval removal of the right-sided Port-A-Cath. There is a right pleur al fluid seen with persistent opacity in the right base. There is a better inspiration on today's exa mination. The left lung appears clear. Impression: Persistent opacity right base with fluid and/or consolidation. There is better inspiratio n on today's examination. Interval removal of the right-sided Port-A-Cath is noted. Reported By:
[2017-11-06] MEDS: ALBUMIN HUMAN 25%- 100 ML 100 ML IV SCH (08:54)
[2017-11-06] MEDS: INVANZ INJ 1 GM VIAL 1 GM in NS 100 ML IV + SPIKE MINIBAG* 100 ML IV SCH (08:55)
[2017-11-06] MEDS: PROTONIX TAB 40 MG PO SCH ×2 (08:56→20:51)
[2017-11-06] MEDS: K-DUR TAB 20 MEQ PO SCH (08:56)
[2017-11-06] MEDS: ROBITUSSIN DM PO SCH ×4 (08:56→20:49)
[2017-11-06] MEDS: PEPCID TAB 20 MG PO SCH ×2 (08:56→20:49)
[2017-11-06] MEDS: CIPRO IV 400 MG PREMIX* 400 MG/200 ML IV.SOLN. IV SCH ×2 (08:56→20:48)
[2017-11-06] MEDS: COZAAR PO SCH (08:56)
[2017-11-06] MEDS: CHECK PATCH XX SCH ×2 (08:57→20:13)
[2017-11-06] MEDS: XOPENEX 1.25 MG/3 ML NEBULE NEB SCH ×4 (09:00→20:48)
[2017-11-06] MEDS: PHENERGAN INJ 25 MG IV PRN (09:18)
[2017-11-06] MEDS: DEMEROL INJ IVP PRN ×2 (09:20→18:53)
[2017-11-06] MEDS ORDERED: HumuLIN R SUBCUT PRN (10:44)
[2017-11-06] MEDS: MILK OF MAGNESIA PO SCH ×3 (15:09→20:49)
[2017-11-06] MEDS: NS 1/2 1000 ML IV 1,000 ML IV SCH ×2 (15:58→23:46)
[2017-11-06] MEDS: SNACK - Diabetic Appropriate PO SCH (20:12)
--- NOTE | 2017-11-06 20:33 | PCM.PROG ---
Progress Note - Progress Note for Day of Date: 11/06/17 - Subjective Subjective: WAS ADMITTED FOR TREATMENT OF PNEUMONIA. TODAY, HE IS ALERT AND ORIENTED, LYING IN BED ON MORNING ROUNDS. HE CONTINUES WITH A NON PRODUCTIVE COUGH AND SHORTNESS OF BREATH. ON EXAMINATION, BILATERAL LUNGS CONTINUE WITH SCATTERED WHEEZING AND RHONCHI THROUGHOUT. ABDOMEN IS ROUND, SOFT , AND NON-TENDER WITH NORMAL BOWEL SOUNDS NOTED IN ALL QUADRANTS. HIS VITAL SIGNS TODAY ARE 99.7-95-15-98%-126/71. ABNORMAL LAB VALUES INCLUDE THE FOLLOWING : WBC 11.2, RBC 3.50, HGB 8.69, HCT 26.0, PLT COUNT 548, SODIUM 129, POTASSIUM 5.3, CHLORIDE 96, BUN 19, GLUCOSE 104, TOTAL PROTEIN 8.7, ALBUMIN 3.2, GLOBULIN 5.5. A CHEST XRAY WAS RECEIVED TODAY AND REVEALED PERSISTENT OPACITY RIGHT BASE WITH FLUID AND.OR CONSOLIDATION. THERE IS BETTER INSPIRATION ON TODAYS EXAMINATION. REMOVED PORT A CATH YESTERDAY. A CULTURE OF THE TIP OF THE CATHETER WAS OBTAINED. CULTURES ARE PENDING. WE WILL CONTINUE WITH CURRENT PLAN OF CARE TODAY. OTHERWISE, WE WILL FOLLOW UP WITH AM LABS AND CONTINUE TO MONITOR PATIENT. - Past Medical Family Social History Past Med/Fam/Surg Hx: No changes since H&P Allergies: Allergies codeine Allergy (Verified 07/30/17 02:52) morphine Allergy (Verified 07/30/17 02:52) - Review of Systems ROS: No change since H&P - Vital Signs and I&O's Vital Signs: Temperature 98.7 F Pulse Rate [Left Brachial] 100 Pulse Rate [Apical] 105 Pulse Rate 101 Respiratory Rate 26 Blood Pressure [Right Arm] 151/80 Blood Pressure [Left Arm] 126/71 Blood Pressure [Left Radial 160/102 Artery] Blood Pressure 195/111 O2 Sat by Pulse Oximetry 97 Intake and Output: Intake & Output 11/04/17 11/05/17 11/06/17 11/07/17 11:59 11:59 11:59 11:59 Intake Total 4567 4244 3032 1660 Output Total 3850 3010 3105 Balance 717 1234 -73 1660 - Physical Exam Oriented: Normal Eyes: Normal Ear: Normal Nose: Normal Throat: Normal Respiratory: Wheezes, Rhonchi Cardiovascular: Normal : Normal Auscultation: Bowel Sounds: Normal Palpation: Normal Tenderness: Normal Skin: Normal Musculoskeletal: Back:Lumbar, Tender Psychiatric: Normal Mood Description: Calm Affect: Normal Speech Pattern: Clear, Appropriate - Laboratory and Diagnostics Result Diagrams: 11/06/17 05:01 11/06/17 05:01 Labs: 11/05/17 13:35 Catheter Site Gram Stain - Final 11/05/17 13:35 Catheter Site Wound Culture - Preliminary 11/05/17 13:35 Catheter Tip - Subclavian - Preliminary 10/28/17 18:33 Blood Blood Culture - Final Klebsiella Pneumoniae 10/28/17 18:27 Blood Blood Culture - Final Klebsiella Pneumoniae Laboratory WBC 11.2 X10^3/uL (3.6-10.0) H 11/06/17 05:01 RBC 3.50 X10^6/uL (4.7-6.0) L 11/06/17 05:01 Hgb 8.9 g/dL (13.5-18.0) L 11/06/17 05:01 Hct 26.0 % (42.0-54.0) L 11/06/17 05:01 MCV 74.4 fL (80.0-100.0) L 11/06/17 05:01 MCH 25.3 pg (27.0-34.0) L 11/06/17 05:01 MCHC 34.0 g/dL (33.0-35.0) 11/06/17 05:01 RDW 17.0 % (11.6-16.5) H 11/06/17 05:01 Plt Count 548 X10^3/uL (150.0-450.0) H 11/06/17 05:01 Plt Count Comment Increased (ADEQUATE) 11/06/17 05:01 MPV 6.5 fL (7.4-11.0) L 11/06/17 05:01 Neut % (Auto) 72.4 % (42.0-75.0) 11/06/17 05:01 Lymph % (Auto) 14.3 % (21.0-51.0) L 11/06/17 05:01 [place] % (Auto) 10.6 % (0.0-13.0) 11/06/17 05:01 Eos % (Auto) 2.3 % (0.9-2.9) 11/06/17 05:01 Baso % (Auto) 0.4 % (0.2-1.0) 11/06/17 05:01 Neut # (Auto) 8.1 x10^3/uL (2.2-4.8) H 11/06/17 05:01 Lymph # (Auto) 1.6 X10^3/uL (1.3-2.9) 11/06/17 05:01 [place] # (Auto) 1.2 x10^3/uL (0.3-0.8) H 11/06/17 05:01 Eos # (Auto) 0.3 x10^3/uL (0.0-0.2) H 11/06/17 05:01 Baso # (Auto) 0.0 X10^3/uL (0.0-0.1) 11/06/17 05:01 Absolute Nucleated RBC 0.0 /100WBC 11/06/17 05:01 Total Counted 100 11/01/17 06:46 Neutrophils % (Manual) 73 % (39-76) 11/01/17 06:46 Band Neutrophils % 1 % (0-10) 11/01/17 06:46 Lymphocytes % (Manual) 14 % (13-43) 11/01/17 06:46 Monocytes % (Manual) 10 % (4-9) H 11/01/17 06:46 Eosinophils % (Manual) 2 % (0-6) 11/01/17 06:46 Plt Morphology Comment Normal (NORMAL) 11/06/17 05:01 RBC Morphology Abnormal (NORMAL) 11/06/17 05:01 Hypochromasia 1+ A 11/06/17 05:01 Anisocytosis 1+ A 11/06/17 05:01 Microcytosis Slight A 11/06/17 05:01 Sodium 129 mmol/L (136-145) L 11/06/17 05:01 Corrected Sodium TNP 11/06/17 05:01 Potassium 5.3 mmol/L (3.5-5.1) H 11/06/17 05:01 Chloride 96 mmol/L (98-107) L 11/06/17 05:01 Carbon Dioxide 27.9 mmol/L (21-32) 11/06/17 05:01 BUN 19 mg/dL (7-18) H 11/06/17 05:01 Creatinine 1.06 mg/dL (0.70-1.30) 11/06/17 05:01 Est GFR (MDRD) Af Amer > 60 (>60) 11/06/17 05:01 Est GFR (MDRD) Non-Af > 60 (>60) 11/06/17 05:01 Glucose 104 mg/dL (65-99) H 11/06/17 05:01 POC Glucose (mg/dL) 300 mg/dL (65-99) H 11/06/17 15:08 Lactic Acid 0.7 mmol/L (0.4-2.0) 10/29/17 05:45 Calcium 8.5 mg/dL (8.5-10.1) 11/06/17 05:01 Corrected Calcium 9.1 mg/dL (8.5-10.1) 11/06/17 05:01 Phosphorus 1.9 mg/dL (2.6-4.7) L 11/04/17 14:14 Magnesium 1.9 mg/dL (1.7-2.9) 11/04/17 14:14 Iron 17 ug/dL (50-175) L 11/01/17 09:47 Transferrin 119 mg/dL (202-364) L 11/01/17 09:47 Ferritin 290 ng/mL (26-388) 11/01/17 09:47 Total Bilirubin 0.40 mg/dL (0.2-1.0) 11/06/17 05:01 AST 15 Units/L (15-37) 11/06/17 05:01 ALT 27 Units/L (12-78) 11/06/17 05:01 Alkaline Phosphatase 111 Units/L (46-116) 11/06/17 05:01 Total Protein 8.7 g/dL (6.4-8.2) H 11/06/17 05:01 Albumin 3.2 g/dL (3.4-5.0) L 11/06/17 05:01 Globulin 5.5 g/dL (2.5-4.5) H 11/06/17 05:01 Albumin/Globulin Ratio 0.6 Ratio (1.1-2.1) L 11/06/17 05:01 Prealbumin 15.6 mg/dL (18-35.7) L 11/05/17 05:17 Triglycerides 83 mg/dL (0-150) 11/04/17 14:14 Vitamin B12 720 pg/mL (193-986) 11/01/17 09:47 Folate 10.8 ng/mL (>8.6) 11/01/17 09:47 Blood Type O POSITIVE 11/01/17 09:47 Antibody Screen Negative 11/01/17 09:47 Crossmatch See Detail 11/01/17 09:47 - Plan (1) Pneumonia Status: Acute Qualifiers: Pneumonia type: due to Klebsiella pneumoniae Laterality: right Lung location: lower lobe of lung Qualified Code(s): J15.0 - Pneumonia due to Klebsiella pneumoniae Plan: PNEUMONIA PROTOCOL, INVANZ, CIPRO, RESPIRATORY TREATMENTS, SUPPLEMENTAL OXYGEN, CONTINUE TO MONITOR (2) Diabetes mellitus type 1 Status: Chronic Qualifiers: Diabetes mellitus complication status: without complication Qualified Code( s): E10.9 - Type 1 diabetes mellitus without complications Plan: MONITOR OTBS, SLIDING SCALE INSULIN, CONTINUE TOUJEO, CONTINUE TO MONITOR (3) Anemia Status: Acute Qualifiers: Anemia type: iron deficiency Iron deficiency anemia type: chronic blood loss Qualified Code(s): D50.0 - Iron deficiency anemia secondary to blood loss (chronic) Plan: continue to monitor (4) Hypertension Status: Chronic Qualifiers: Hypertension type: essential hypertension Qualified Code(s): I10 - Essential (primary) hypertension Plan: CONTINUE CATAPRES PATCH, LABETALOL IV, LOSARTAN 100MG PO DAILY, CONTINUE TO MONITOR
[2017-11-06] MEDS: COLACE CAP 100 MG PO SCH (20:49)
[2017-11-06] MEDS: TOUJEO SOLOSTAR PEN SC SCH (20:49)
[2017-11-06] MEDS: KLONOPIN TAB 1 MG PO PRN (20:50)
[2017-11-06] MEDS: HumuLIN R SUBCUT PRN (20:50)
--- NOTE | 2017-11-07 09:58 | RAD ---
HISTORY: Follow-up pneumonia Study: Chest AP portable Comparison: 11/06/2017 Findings: The patient is rotated to the left. The heart is within normal limits in size. No congestive heart fa ilure is noted. Right basilar lung infiltrate and right pleural effusion are unchanged. The left lung remains clear. The bony thorax is unremarkable. IMPRESSION: No significant change from the prior examination Reported By:
[2017-11-07] MEDS ORDERED: NS 100 ML IV + SPIKE MINIBAG* 100 ML IV ONE (11:25)
[2017-11-07] MEDS ORDERED: INVANZ INJ 1 GM VIAL ONE (11:25)
[2017-11-07 14:09] LABS: ALANINE AMINOTRANSFERASE 24 Units/L (12-78); ALKALINE PHOSPHATASE 96 Units/L (46-116); ASPARTATE AMINO TRANSFERASE 15 Units/L (15-37); BASOPHILS # (AUTO) 0.1 X10^3/uL (0.0-0.1); BLOOD UREA NITROGEN 14 mg/dL (7-18); CARBON DIOXIDE 23.3 mmol/L (21-32); CHLORIDE 98 mmol/L (98-107); COR CA(FOR HYPOALB) 8.8 mg/dL (8.5-10.1); COR NA(FOR HYPERGLY) 132 mmol/L (136-145); CREATININE 1.07 mg/dL (0.70-1.30); EOSINOPHILS # (AUTO) 0.4 x10^3/uL (0.0-0.2); EOSINOPHILS % (AUTO) 3.7 % (0.9-2.9); HEMATOCRIT 23.6 % (42.0-54.0); HEMOGLOBIN 7.9 g/dL (13.5-18.0); LYMPHOCYTES # (AUTO) 1.9 X10^3/uL (1.3-2.9); LYMPHOCYTES % (AUTO) 17.9 % (21.0-51.0); MEAN CORPUSCULAR HEMOGLOBIN 25.1 pg (27.0-34.0); MEAN CORPUSCULAR HGB CONC 33.5 g/dL (33.0-35.0); MEAN PLATELET VOLUME 7.2 fL (7.4-11.0); MONOCYTES % (AUTO) 9.4 % (0.0-13.0); NEUTROPHILS # (AUTO) 7.3 x10^3/uL (2.2-4.8); PLATELET COUNT 447 X10^3/uL (150.0-450.0); RED BLOOD COUNT 3.15 X10^6/uL (4.7-6.0); RED CELL DISTRIBUTION WIDTH 17.2 % (11.6-16.5); SODIUM 132 mmol/L (136-145); WHITE BLOOD COUNT 10.7 X10^3/uL (3.6-10.0); eGFR NON BLACK RACES > 60 (>60)
[2017-11-07 15:32] LABS: PLATELET MORPHOLOGY COMMENT NORMAL (NORMAL)
[2017-11-07] MEDS: XOPENEX 1.25 MG/3 ML NEBULE NEB SCH ×2 (16:22→20:25)
[2017-11-07] MEDS: HumuLIN R SUBCUT PRN (17:01)
[2017-11-07] MEDS: ROBITUSSIN DM PO SCH ×3 (17:01→20:41)
[2017-11-07] MEDS: ALBUMIN HUMAN 25%- 100 ML 100 ML IV SCH (19:39)
[2017-11-07] MEDS: NS 1/2 1000 ML IV 1,000 ML IV SCH (19:39)
[2017-11-07] MEDS: CHECK PATCH XX SCH ×2 (19:40→20:45)
[2017-11-07] MEDS: COZAAR PO SCH (19:40)
[2017-11-07] MEDS: CIPRO IV 400 MG PREMIX* 400 MG/200 ML IV.SOLN. IV SCH ×2 (19:40→20:41)
[2017-11-07] MEDS: MILK OF MAGNESIA PO SCH ×2 (19:40→20:41)
[2017-11-07] MEDS: K-DUR TAB 20 MEQ PO SCH (19:40)
[2017-11-07] MEDS: INVANZ INJ 1 GM VIAL 1 GM in NS 100 ML IV + SPIKE MINIBAG* 100 ML IV SCH (19:40)
[2017-11-07] MEDS: PROTONIX TAB 40 MG PO SCH ×2 (19:41→20:40)
[2017-11-07] MEDS: PEPCID TAB 20 MG PO SCH ×2 (19:41→20:41)
[2017-11-07] MEDS: DEMEROL INJ IVP PRN (19:49)
[2017-11-07] MEDS: PHENERGAN INJ 25 MG IV PRN (19:49)
[2017-11-07] MEDS: COLACE CAP 100 MG PO SCH (20:40)
[2017-11-07] MEDS: TOUJEO SOLOSTAR PEN SC SCH (20:41)
[2017-11-07] MEDS: SNACK - Diabetic Appropriate PO SCH (20:42)
[2017-11-08] MEDS: NS 1/2 1000 ML IV 1,000 ML IV SCH (05:30)
[2017-11-08 06:23] LABS: BASOPHILS # (AUTO) 0.1 X10^3/uL (0.0-0.1); BASOPHILS % (AUTO) 0.7 % (0.2-1.0); EOSINOPHILS # (AUTO) 0.3 x10^3/uL (0.0-0.2); EOSINOPHILS % (AUTO) 3.5 % (0.9-2.9); HEMATOCRIT 24.7 % (42.0-54.0); HEMOGLOBIN 8.7 g/dL (13.5-18.0); LYMPHOCYTES # (AUTO) 1.2 X10^3/uL (1.3-2.9); LYMPHOCYTES % (AUTO) 12.8 % (21.0-51.0); MEAN CORPUSCULAR HEMOGLOBIN 25.9 pg (27.0-34.0); MEAN CORPUSCULAR HGB CONC 35.1 g/dL (33.0-35.0); MEAN PLATELET VOLUME 6.8 fL (7.4-11.0); MONOCYTES # (AUTO) 0.6 x10^3/uL (0.3-0.8); MONOCYTES % (AUTO) 6.8 % (0.0-13.0); NEUTROPHILS # (AUTO) 7.1 x10^3/uL (2.2-4.8); NEUTROPHILS % (AUTO) 76.2 % (42.0-75.0); PLATELET COUNT 587 X10^3/uL (150.0-450.0); RED BLOOD COUNT 3.34 X10^6/uL (4.7-6.0); RED CELL DISTRIBUTION WIDTH 16.5 % (11.6-16.5); WHITE BLOOD COUNT 9.3 X10^3/uL (3.6-10.0)
[2017-11-08 06:49] LABS: ALANINE AMINOTRANSFERASE 25 Units/L (12-78); ALBUMIN 3.4 g/dL (3.4-5.0); ALKALINE PHOSPHATASE 98 Units/L (46-116); ASPARTATE AMINO TRANSFERASE 13 Units/L (15-37); BLOOD UREA NITROGEN 10 mg/dL (7-18); CALCIUM 8.7 mg/dL (8.5-10.1); CARBON DIOXIDE 25.6 mmol/L (21-32); CHLORIDE 99 mmol/L (98-107); COR NA(FOR HYPERGLY) 136 mmol/L (136-145); CREATININE 0.92 mg/dL (0.70-1.30); SODIUM 134 mmol/L (136-145); TOTAL PROTEIN 8.9 g/dL (6.4-8.2); eGFR NON BLACK RACES > 60 (>60)
[2017-11-08 07:40] LABS: PLATELET MORPHOLOGY COMMENT NORMAL (NORMAL)
[2017-11-08 07:41] LABS: MICROCYTOSIS SLIGHT
[2017-11-08] MEDS: XOPENEX 1.25 MG/3 ML NEBULE NEB SCH (08:51)
[2017-11-08] MEDS: ALBUMIN HUMAN 25%- 100 ML 100 ML IV SCH (09:16)
[2017-11-08] MEDS: K-DUR TAB 20 MEQ PO SCH (09:18)
[2017-11-08] MEDS: ROBITUSSIN DM PO SCH (09:18)
[2017-11-08] MEDS: PROTONIX TAB 40 MG PO SCH (09:18)
[2017-11-08] MEDS: PEPCID TAB 20 MG PO SCH (09:19)
[2017-11-08] MEDS: COZAAR PO SCH (09:19)
[2017-11-08] MEDS: CHECK PATCH XX SCH (09:21)
[2017-11-08] MEDS: CIPRO IV 400 MG PREMIX* 400 MG/200 ML IV.SOLN. IV SCH (09:30)
[2017-11-08] MEDS: MILK OF MAGNESIA PO SCH (10:22)
[2017-11-08] MEDS: INVANZ INJ 1 GM VIAL 1 GM in NS 100 ML IV + SPIKE MINIBAG* 100 ML IV SCH (11:14)
[2017-11-08] MEDS: DEMEROL INJ IVP PRN (11:24)
[2017-11-08] MEDS: PHENERGAN INJ 25 MG IV PRN (11:25)
[2017-11-08] MEDS: HumuLIN R SUBCUT PRN (11:31)
[2017-11-08 13:06] VITALS: BP 142/81
--- NOTE | 2017-11-08 17:26 | PCM.PROG ---
Progress Note - Progress Note for Day of Date: 11/07/17 - Subjective Subjective: WAS ADMITTED FOR TREATMENT OF PNEUMONIA. TODAY, HE IS ALERT AND ORIENTED, LYING IN BED ON MORNING ROUNDS. HE CONTINUES WITH A NON- PRODUCTIVE COUGH AND SHORTNESS OF BREATH. ON EXAMINATION, BILATERAL LUNGS CONTINUE WITH SCATTERED WHEEZING AND RHONCHI THROUGHOUT. ABDOMEN IS ROUND, SOFT , AND NON-TENDER WITH NORMAL BOWEL SOUNDS NOTED IN ALL QUADRANTS. HIS VITAL SIGNS TODAY ARE 98.9, 97-21-97%-148/87. ABNORMAL LAB VALUES INCLUDE THE FOLLOWING: WBC 10.7, RBC 3.15, HGB 7.9, HCT 23.6, SODIUM 132, GLUCOSE 119, CALCIUM 8.0, ALBUMIN 3.0, GLOBULIN 5.0. A CHEST XRAY WAS RECEIVED TODAY AND REVEALED RIGHT BASILAR LUNG INFILTRATE AND RIGHT PLERUAL EFFUSIONS UNCHANGED. LEFT LUNG CLEAR. CULTURE OF THE PORT A CATH THAT WAS REMOVED IS PENDING AT THIS TIME. PRELIMINARY CULTURES REPORT GROWHT OF GRAM POSITIVE COCCI. HE CONTINUES TO RECEIVE CIPRO AND INVANZ IV FOR GROWTH OF KLEBSIELLA PNEUMONIAE IN BLOOD CULTUES. WE WILL CONTINUE WITH CURRENT PLAN OF CARE TODAY. OTHERWISE, WE WILL FOLLOW UP WITH AM LABS AND CONTINUE TO MONITOR PATIENT. - Past Medical Family Social History Past Med/Fam/Surg Hx: No changes since H&P Allergies: Allergies codeine Allergy (Verified 07/30/17 02:52) morphine Allergy (Verified 07/30/17 02:52) - Review of Systems ROS: No change since H&P - Vital Signs and I&O's Vital Signs: Temperature 98.7 F Pulse Rate [Left Brachial] 100 Pulse Rate [Apical] 105 Pulse Rate 94 Respiratory Rate 20 Blood Pressure [Right Arm] 142/81 Blood Pressure [Left Arm] 126/71 Blood Pressure [Left Radial 160/102 Artery] Blood Pressure 195/111 O2 Sat by Pulse Oximetry 98 Intake and Output: Intake & Output 11/06/17 11/07/17 11/08/17 11/09/17 11:59 11:59 11:59 11:59 Intake Total 3032 / 3032 2773 / 2773 1703 / 1703 Output Total 3105 / 3105 1100 / 1100 4350 / 4350 Balance -73 / -73 1673 / 1673 -2647 / -2647 - Physical Exam Oriented: Normal Eyes: Normal Ear: Normal Nose: Normal Throat: Normal Respiratory: Wheezes, Rhonchi Cardiovascular: Normal : Normal Auscultation: Bowel Sounds: Normal Palpation: Normal Tenderness: Normal Skin: Normal Musculoskeletal: Back:Lumbar, Tender Psychiatric: Normal Mood Description: Calm Affect: Normal Speech Pattern: Clear, Appropriate - Laboratory and Diagnostics Result Diagrams: 11/08/17 05:24 11/08/17 05:24 Labs: 11/05/17 13:35 Catheter Tip - Subclavian - Final Staphylococcus Aureus 11/05/17 13:35 Catheter Site Gram Stain - Final 11/05/17 13:35 Catheter Site Wound Culture - Final Staphylococcus Aureus 10/28/17 18:33 Blood Blood Culture - Final Klebsiella Pneumoniae 10/28/17 18:27 Blood Blood Culture - Final Klebsiella Pneumoniae Laboratory WBC 9.3 X10^3/uL (3.6-10.0) 11/08/17 05:24 RBC 3.34 X10^6/uL (4.7-6.0) L 11/08/17 05:24 Hgb 8.7 g/dL (13.5-18.0) L 11/08/17 05:24 Hct 24.7 % (42.0-54.0) L 11/08/17 05:24 MCV 74.0 fL (80.0-100.0) L 11/08/17 05:24 MCH 25.9 pg (27.0-34.0) L 11/08/17 05:24 MCHC 35.1 g/dL (33.0-35.0) H 11/08/17 05:24 RDW 16.5 % (11.6-16.5) 11/08/17 05:24 Plt Count 587 X10^3/uL (150.0-450.0) H 11/08/17 05:24 Plt Count Comment Increased (ADEQUATE) 11/08/17 05:24 MPV 6.8 fL (7.4-11.0) L 11/08/17 05:24 Neut % (Auto) 76.2 % (42.0-75.0) H 11/08/17 05:24 Lymph % (Auto) 12.8 % (21.0-51.0) L 11/08/17 05:24 [place] % (Auto) 6.8 % (0.0-13.0) 11/08/17 05:24 Eos % (Auto) 3.5 % (0.9-2.9) H 11/08/17 05:24 Baso % (Auto) 0.7 % (0.2-1.0) 11/08/17 05:24 Neut # (Auto) 7.1 x10^3/uL (2.2-4.8) H 11/08/17 05:24 Lymph # (Auto) 1.2 X10^3/uL (1.3-2.9) L 11/08/17 05:24 [place] # (Auto) 0.6 x10^3/uL (0.3-0.8) 11/08/17 05:24 Eos # (Auto) 0.3 x10^3/uL (0.0-0.2) H 11/08/17 05:24 Baso # (Auto) 0.1 X10^3/uL (0.0-0.1) 11/08/17 05:24 Absolute Nucleated RBC 0.0 /100WBC 11/08/17 05:24 Total Counted 100 11/01/17 06:46 Neutrophils % (Manual) 73 % (39-76) 11/01/17 06:46 Band Neutrophils % 1 % (0-10) 11/01/17 06:46 Lymphocytes % (Manual) 14 % (13-43) 11/01/17 06:46 Monocytes % (Manual) 10 % (4-9) H 11/01/17 06:46 Eosinophils % (Manual) 2 % (0-6) 11/01/17 06:46 Plt Morphology Comment Normal (NORMAL) 11/08/17 05:24 RBC Morphology Abnormal (NORMAL) 11/08/17 05:24 Hypochromasia 1+ A 11/06/17 05:01 Anisocytosis 1+ A 11/06/17 05:01 Microcytosis Slight A 11/08/17 05:24 Sodium 134 mmol/L (136-145) L 11/08/17 05:24 Corrected Sodium 136 mmol/L (136-145) 11/08/17 05:24 Potassium 4.3 mmol/L (3.5-5.1) 11/08/17 05:24 Chloride 99 mmol/L (98-107) 11/08/17 05:24 Carbon Dioxide 25.6 mmol/L (21-32) 11/08/17 05:24 BUN 10 mg/dL (7-18) 11/08/17 05:24 Creatinine 0.92 mg/dL (0.70-1.30) 11/08/17 05:24 Est GFR (MDRD) Af Amer > 60 (>60) 11/08/17 05:24 Est GFR (MDRD) Non-Af > 60 (>60) 11/08/17 05:24 Glucose 169 mg/dL (65-99) H 11/08/17 05:24 POC Glucose (mg/dL) 238 mg/dL (65-99) H 11/07/17 16:55 Lactic Acid 0.7 mmol/L (0.4-2.0) 10/29/17 05:45 Calcium 8.7 mg/dL (8.5-10.1) 11/08/17 05:24 Corrected Calcium TNP 11/08/17 05:24 Phosphorus 1.9 mg/dL (2.6-4.7) L 11/04/17 14:14 Magnesium 1.9 mg/dL (1.7-2.9) 11/04/17 14:14 Iron 17 ug/dL (50-175) L 11/01/17 09:47 Transferrin 119 mg/dL (202-364) L 11/01/17 09:47 Ferritin 290 ng/mL (26-388) 11/01/17 09:47 Total Bilirubin 0.30 mg/dL (0.2-1.0) 11/08/17 05:24 AST 13 Units/L (15-37) L 11/08/17 05:24 ALT 25 Units/L (12-78) 11/08/17 05:24 Alkaline Phosphatase 98 Units/L (46-116) 11/08/17 05:24 Total Protein 8.9 g/dL (6.4-8.2) H 11/08/17 05:24 Albumin 3.4 g/dL (3.4-5.0) 11/08/17 05:24 Globulin 5.5 g/dL (2.5-4.5) H 11/08/17 05:24 Albumin/Globulin Ratio 0.6 Ratio (1.1-2.1) L 11/08/17 05:24 Prealbumin 15.6 mg/dL (18-35.7) L 11/05/17 05:17 Triglycerides 83 mg/dL (0-150) 11/04/17 14:14 Vitamin B12 720 pg/mL (193-986) 11/01/17 09:47 Folate 10.8 ng/mL (>8.6) 11/01/17 09:47 Blood Type O POSITIVE 11/01/17 09:47 Antibody Screen Negative 11/01/17 09:47 Crossmatch See Detail 11/01/17 09:47 - Plan (1) Pneumonia Status: Acute Qualifiers: Pneumonia type: due to Klebsiella pneumoniae Laterality: right Lung location: lower lobe of lung Qualified Code(s): J15.0 - Pneumonia due to Klebsiella pneumoniae Plan: PNEUMONIA PROTOCOL, INVANZ, CIPRO, RESPIRATORY TREATMENTS, SUPPLEMENTAL OXYGEN, CONTINUE TO MONITOR (2) Diabetes mellitus type 1 Status: Chronic Qualifiers: Diabetes mellitus complication status: without complication Qualified Code( s): E10.9 - Type 1 diabetes mellitus without complications Plan: MONITOR OTBS, SLIDING SCALE INSULIN, CONTINUE TOUJEO, CONTINUE TO MONITOR (3) Anemia Status: Acute Qualifiers: Anemia type: iron deficiency Iron deficiency anemia type: chronic blood loss Qualified Code(s): D50.0 - Iron deficiency anemia secondary to blood loss (chronic) Plan: continue to monitor (4) Hypertension Status: Chronic Qualifiers: Hypertension type: essential hypertension Qualified Code(s): I10 - Essential (primary) hypertension Plan: CONTINUE CATAPRES PATCH, LABETALOL IV, LOSARTAN 100MG PO DAILY, CONTINUE TO MONITOR
--- NOTE | 2017-11-10 23:51 | DR.CARTERD ---
- Discharge Summary for: Discharge Summary for Date of:: 11/08/17 - Admission Date Date of Admission: 10/28/17 - Admission Diagnoses Admission Diagnosis: (1) Pneumonia - Discharge Date Discharge Date: 11/08/17 - Discharge Diagnoses Discharge Diagnosis: (1) Sepsis (2) Pneumonia (3) Diabetes mellitus type 1 (4) Anemia (5) Hypertension - Hospital Course Hospital Course: Mr. Mayes presented to the hospital as a direct admission after being seen in the office with reports of right sided abdominal pain, right lower back pain, nausea, cough and shortness of breath. Patient noted with right lower quadrant and suprapubic abdominal pain. Patient reportedly had outpatient labs and an abdomen and pelvis CT. Labs obtained one day prior revealed a critically elevated white blood cell count of 22.3. Abdomen and pelvis CT obtained revealed multiple thick-walled cavitary lesions seen in the visualized portion of the right lower lobe, with the largest measuring approximately 2.9x1.9cm in size and were noted probable infectious in nature. Patient then admitted to the hospital and started on pneumonia protocol including IV fluids, IV antibiotics and aggressive neb treatments. Labs obtained on admission revealed an elevated white blood cell count of 12.7 and a low sodium of 126. Patient noted with an elevated blood pressure as high as 216/116 and patient given two dose of Normodyne IV within 24 hours of admission. Patient continued to report abdominal pain and nausea. On auscultation of abdominal quadrants patient noted with hypoactive bowel sounds throughout. Patient remained on supplemental oxygen at 2L/min via nasal cannula. On auscultation of lung [place] patient noted with coarse breath sounds throughout. Abdomen noted to be firm and round. Patient reports abdominal tenderness with constipation and stated his last bowel movement was on 10/28/17. Patient started on a bowel regimen. On day five, patient noted with continued shortness of breath and cough. On auscultation of lung [place] patient noted with continued scattered wheezing and rhonchi throughout. Blood culture reported Klebsiella pneumoniae. Labs obtained revealed a critically low hemoglobin of 6.9 and patient given two units of PRBCs. Hemogobin improved to 9.0 the following day. We continued with pneumonia protocol including IV fluids, IV antibiotics and aggressive neb treatments. On day nine, patient noted with continued reports of cough and shortness of breath. On auscultation of lung [place] patient noted with scattered wheezing and rhonchi throughout. Chest x-ray revealed no significant improvement in right lower lobe infiltrate. Dr. Gramajo was consulted for removal of port-a-cath due to positive blood cultures felt to be port-line sepsis. Patient taken to the operating room and port-a-cath removed and sent to lab for culture. During surgery Dr. Gramajo irrigated port pocket with antibiotic solution. We continued treatment. Final culture of catheter tip and catheter site revealed Staphylococcus Aureus. We continued with appropriate antibiotics according to culture and sensitivity. On day twelve, patient reported he was feeling better. Hemoglobin was 8.7. Vital signs stable, afebrile. Wbc was 9.3. Cough was intermittent, non-productive. On auscultation, lungs were noted with scattered rhonchi. We planned for discharge. Instructions for medications and follow up were discussed with patient and family, both voiced understanding. Patient discharged home in stable condition with family. Labs: Microbiology 11/05/17 13:35 Catheter Tip - Subclavian - Final Staphylococcus Aureus 11/05/17 13:35 Catheter Site Gram Stain - Final 11/05/17 13:35 Catheter Site Wound Culture - Final Staphylococcus Aureus 10/28/17 18:33 Blood Blood Culture - Final Klebsiella Pneumoniae 10/28/17 18:27 Blood Blood Culture - Final Klebsiella Pneumoniae - Discharge Medications Discharge Medications: ciprofloxacin HCl [Cipro] 500 mg PO BID #28 tab 11/08/17 [Rx] dextromethorphan-guaifenesin [Mucinex DM] 1 tab PO Q12H PRN #20 tab 11/08/17 [Rx ] levalbuterol HCl 1 ea NEB TID #90 ml 11/08/17 [Rx] clonazepam 1 tab PO HS PRN 07/11/16 clonidine 1 patch TOP Q7D 07/11/16 hydrocodone-acetaminophen 1 tab PO BID PRN 07/11/16 pantoprazole 1 tab PO BID 07/11/16 potassium chloride [Klor-Con M20] 1 tab PO DAILY 07/11/16 insulin lispro [Humalog U-100 Insulin] 20 units SUBCUT AC 03/10/17 oxycodone-acetaminophen 1 - 2 tab PO Q4-6H PRN 03/10/17 famotidine [Pepcid] 40 mg PO BID #60 04/18/17 insulin glargine [Toujeo SoloStar U-300 Insulin] 60 units SQ HS 07/09/17 losartan 100 mg PO DAILY #30 tab 07/14/17 ondansetron [Zofran ODT] 8 mg PO Q8H PRN #20 tab 07/25/17 promethazine 25 mg PO Q6H PRN #20 tab 07/25/17 prochlorperazine maleate 10 mg PO TID PRN #12 tab 07/30/17 - Discharge Disposition Discharge Disposition: PATIENT IS TO FOLLOW UP IN OUR OFFICE IN ONE WEEK.
--- NOTE | 2017-12-11 22:11 | PCM.PROG ---
Progress Note - Progress Note for Day of Date of Exam: 11/03/17 - Subjective Subjective: WAS ADMITTED FOR TREATMENT OF PNEUMONIA. TODAY, HE IS ALERT AND ORIENTED, LYING IN BED ON MORNING ROUNDS. HE CONTINUES WITH A COUGH, SHORTNESS OF BREATH, AND NAUSEA. ON EXAMINATION, BILATERAL LUNGS CONTINUE WITH SCATTERED WHEEZING AND RHONCHI THROUGHOUT. ABDOMEN IS ROUND, SOFT, AND NON- TENDER WITH NORMAL BOWEL SOUNDS NOTED IN ALL QUADRANTS. HIS VITAL SIGNS TODAY ARE 96.8-105-21-96%-210-108. ABNORMAL LAB VALUES INCLUDE THE FOLLOWING: WBC 14.2 , RBC 3.42, HGB 8.7, HCT 25.4, PLT 513, SODIUM 127, CHLORIDE 94, GLUCOSE 222, CALCIUM 7.8. A CHEST XRAY WAS RECEIVED TODAY AND REVEALED: Minimal opacity medial left base which may reflect atelectasis or pneumonia. Moderate size right pleural effusion with overlying consolidation, atelectasis versus pneumonia. Moderate improvement. HIS BLOOD PRESSURE REMAINS ELEVATED DESPITE TAKING ANTIHYPERTENSIVES. WE WILL CONTINUE LABETALOL IV APPROPRIATE. HE CONTINUES ON IV ANTIBIOTICS FOR TREATMENT OF KLEBSIELLA PNEUMONIAE. TODAY, WE WILL CONTINUE WITH CURRENT PLAN OF CARE. OTHERWISE, WE WILL FOLLOW UP WITH AM LABS AND CONTINUE TO MONITOR PATIENT. - Past Medical Family Social History Past Med/Fam/Surg Hx: No changes since H&P Allergies: Allergies codeine Allergy (Verified 11/14/17 15:19) morphine Allergy (Verified 11/14/17 15:19) - Review of Systems ROS: No change since H&P - Vital Signs and I&O's Vital Signs: Temperature 98.7 F Pulse Rate [Left Brachial] 100 Pulse Rate [Apical] 105 Pulse Rate 94 Respiratory Rate 20 Blood Pressure [Right Arm] 142/81 Blood Pressure [Left Arm] 126/71 Blood Pressure [Left Radial 160/102 Artery] Blood Pressure 195/111 O2 Sat by Pulse Oximetry 98 - Physical Exam Oriented: Normal Eyes: Normal Ear: Normal Nose: Normal Throat: Normal Respiratory: Wheezes, Rhonchi Cardiovascular: Normal : Normal Auscultation: Bowel Sounds: Normal Tenderness: Normal Skin: Normal Musculoskeletal: Back:Lumbar, Tender Psychiatric: Normal Mood Description: Calm Affect: Normal Speech Pattern: Clear, Appropriate - Laboratory and Diagnostics Result Diagrams: 11/08/17 05:24 11/08/17 05:24 Labs: 11/05/17 13:35 Catheter Tip - Subclavian - Final Staphylococcus Aureus 11/05/17 13:35 Catheter Site Gram Stain - Final 11/05/17 13:35 Catheter Site Wound Culture - Final Staphylococcus Aureus 10/28/17 18:33 Blood Blood Culture - Final Klebsiella Pneumoniae 10/28/17 18:27 Blood Blood Culture - Final Klebsiella Pneumoniae Laboratory WBC 9.3 X10^3/uL (3.6-10.0) 11/08/17 05:24 RBC 3.34 X10^6/uL (4.7-6.0) L 11/08/17 05:24 Hgb 8.7 g/dL (13.5-18.0) L 11/08/17 05:24 Hct 24.7 % (42.0-54.0) L 11/08/17 05:24 MCV 74.0 fL (80.0-100.0) L 11/08/17 05:24 MCH 25.9 pg (27.0-34.0) L 11/08/17 05:24 MCHC 35.1 g/dL (33.0-35.0) H 11/08/17 05:24 RDW 16.5 % (11.6-16.5) 11/08/17 05:24 Plt Count 587 X10^3/uL (150.0-450.0) H 11/08/17 05:24 Plt Count Comment Increased (ADEQUATE) 11/08/17 05:24 MPV 6.8 fL (7.4-11.0) L 11/08/17 05:24 Neut % (Auto) 76.2 % (42.0-75.0) H 11/08/17 05:24 Lymph % (Auto) 12.8 % (21.0-51.0) L 11/08/17 05:24 [place] % (Auto) 6.8 % (0.0-13.0) 11/08/17 05:24 Eos % (Auto) 3.5 % (0.9-2.9) H 11/08/17 05:24 Baso % (Auto) 0.7 % (0.2-1.0) 11/08/17 05:24 Neut # (Auto) 7.1 x10^3/uL (2.2-4.8) H 11/08/17 05:24 Lymph # (Auto) 1.2 X10^3/uL (1.3-2.9) L 11/08/17 05:24 [place] # (Auto) 0.6 x10^3/uL (0.3-0.8) 11/08/17 05:24 Eos # (Auto) 0.3 x10^3/uL (0.0-0.2) H 11/08/17 05:24 Baso # (Auto) 0.1 X10^3/uL (0.0-0.1) 11/08/17 05:24 Absolute Nucleated RBC 0.0 /100WBC 11/08/17 05:24 Total Counted 100 11/01/17 06:46 Neutrophils % (Manual) 73 % (39-76) 11/01/17 06:46 Band Neutrophils % 1 % (0-10) 11/01/17 06:46 Lymphocytes % (Manual) 14 % (13-43) 11/01/17 06:46 Monocytes % (Manual) 10 % (4-9) H 11/01/17 06:46 Eosinophils % (Manual) 2 % (0-6) 11/01/17 06:46 Plt Morphology Comment Normal (NORMAL) 11/08/17 05:24 RBC Morphology Abnormal (NORMAL) 11/08/17 05:24 Hypochromasia 1+ A 11/06/17 05:01 Anisocytosis 1+ A 11/06/17 05:01 Microcytosis Slight A 11/08/17 05:24 Sodium 134 mmol/L (136-145) L 11/08/17 05:24 Corrected Sodium 136 mmol/L (136-145) 11/08/17 05:24 Potassium 4.3 mmol/L (3.5-5.1) 11/08/17 05:24 Chloride 99 mmol/L (98-107) 11/08/17 05:24 Carbon Dioxide 25.6 mmol/L (21-32) 11/08/17 05:24 BUN 10 mg/dL (7-18) 11/08/17 05:24 Creatinine 0.92 mg/dL (0.70-1.30) 11/08/17 05:24 Est GFR (MDRD) Af Amer > 60 (>60) 11/08/17 05:24 Est GFR (MDRD) Non-Af > 60 (>60) 11/08/17 05:24 Glucose 169 mg/dL (65-99) H 11/08/17 05:24 POC Glucose (mg/dL) 238 mg/dL (65-99) H 11/07/17 16:55 Lactic Acid 0.7 mmol/L (0.4-2.0) 10/29/17 05:45 Calcium 8.7 mg/dL (8.5-10.1) 11/08/17 05:24 Corrected Calcium TNP 11/08/17 05:24 Phosphorus 1.9 mg/dL (2.6-4.7) L 11/04/17 14:14 Magnesium 1.9 mg/dL (1.7-2.9) 11/04/17 14:14 Iron 17 ug/dL (50-175) L 11/01/17 09:47 Transferrin 119 mg/dL (202-364) L 11/01/17 09:47 Ferritin 290 ng/mL (26-388) 11/01/17 09:47 Total Bilirubin 0.30 mg/dL (0.2-1.0) 11/08/17 05:24 AST 13 Units/L (15-37) L 11/08/17 05:24 ALT 25 Units/L (12-78) 11/08/17 05:24 Alkaline Phosphatase 98 Units/L (46-116) 11/08/17 05:24 Total Protein 8.9 g/dL (6.4-8.2) H 11/08/17 05:24 Albumin 3.4 g/dL (3.4-5.0) 11/08/17 05:24 Globulin 5.5 g/dL (2.5-4.5) H 11/08/17 05:24 Albumin/Globulin Ratio 0.6 Ratio (1.1-2.1) L 11/08/17 05:24 Prealbumin 15.6 mg/dL (18-35.7) L 11/05/17 05:17 Triglycerides 83 mg/dL (0-150) 11/04/17 14:14 Vitamin B12 720 pg/mL (193-986) 11/01/17 09:47 Folate 10.8 ng/mL (>8.6) 11/01/17 09:47 Blood Type O POSITIVE 11/01/17 09:47 Antibody Screen Negative 11/01/17 09:47 Crossmatch See Detail 11/01/17 09:47 - Plan (1) Pneumonia Status: Acute Qualifiers: Pneumonia type: due to Klebsiella pneumoniae Laterality: right Lung location: lower lobe of lung Qualified Code(s): J15.0 - Pneumonia due to Klebsiella pneumoniae Plan: PNEUMONIA PROTOCOL, INVANZ, CIPRO, RESPIRATORY TREATMENTS, SUPPLEMENTAL OXYGEN, CONTINUE TO MONITOR (2) Diabetes mellitus type 1 Status: Chronic Qualifiers: Diabetes mellitus complication status: with hyperglycemia Plan: MONITOR OTBS, SLIDING SCALE INSULIN, CONTINUE TOUJEO, CONTINUE TO MONITOR (3) Anemia Status: Acute Qualifiers: Anemia type: iron deficiency Iron deficiency anemia type: unspecified iron deficiency Qualified Code(s): D50.9 - Iron deficiency anemia, unspecified Plan: continue to monitor (4) Hypertension Status: Chronic Qualifiers: Hypertension type: essential hypertension Plan: CONTINUE CATAPRES PATCH, LABETALOL IV, LOSARTAN 100MG PO DAILY, CONTINUE TO MONITOR
== END 2017-11-08 12:55 | disposition home or self-care (01) | DRG 982 ==
LOC: ICU 17:37 → OBSVTOIN 17:37
PROVIDERS: ADMIT Internal Medicine; ATTEND Internal Medicine
DX: E78.2 Mixed hyperlipidemia; E10.65 Type 1 diabetes mellitus with hyperglycemia; D50.8 Other iron deficiency anemias; M51.06 Intervertebral disc disorders with myelopathy, lumbar region; M54.5 Low back pain; R06.02 Shortness of breath; R31.9 Hematuria, unspecified; J15.0 Pneumonia due to Klebsiella pneumoniae; R91.1 Solitary pulmonary nodule; I10 Essential (primary) hypertension; R10.84 Generalized abdominal pain; E87.6 Hypokalemia; E03.8 Other specified hypothyroidism; L03.031 Cellulitis of right toe; E87.1 Hypo-osmolality and hyponatremia; T80.212A Local infection due to central venous catheter, initial encounter
CPT/HCPCS: 36415; 36430; 71010; 71020; 71045; 71046; 71260; 74000; 74018; 74176; 80048; 80053; 82607; 82728; 82746; 83540; 83605; 83735; 84100; 84132; 84134; 84466; 84478; 85014; 85018; 85025; 86850; 86900; 86901; 86922; 87040; 87070; 87075; 87077; 87186; 87205; 93005; 94640; 94669; A4222; B4189; P9016; P9047; Q0169; J0744; J1200; J1335; J1815; J2175; J2250; J2405; J2543; J2550; J2704; J3370; J3475; J3480; J3490; J7040; J7050; J7060; J7120

== ENCOUNTER → 2017-10-28 | Outpatient (CLI) | payer MEDICAID ==
--- NOTE | 2017-10-28 15:19 | CT ---
Examination: CT of the abdomen and pelvis without contrast. Clinical History: Right-sided abdominal pain and nausea. Technique: Multiple axial images were obtained from the lung bases down to the pubic symphysis. No or al or intravenous contrast was administered. Dose reduction techniques including automated exposure c ontrol (AEC) and adjustment of mA and kV were utilized. Comparison: CT of the abdomen and pelvis with contrast dated 08/06/2017. Comparison was also made wit h a chest x-ray dated 08/14/2017 and a CTA of the chest dated 08/12/2017. Findings: There are multiple thick-walled cavitary lesions seen in the visualized portion of the right lower lo be, with the largest measuring approximately 2.9 x 1.9 cm in size. The findings were not evident on t he prior examinations and are probably infectious in nature. Other etiologies, including a neoplastic process cannot be excluded. A 6 mm indeterminate noncalcified pulmonary nodule is present in the lef t lower lobe (series 3, image 3). A CT of the chest, with intravenous contrast, is recommended for fu rther evaluation of the above findings. The remainder of the visualized portion of the lung bases is unremarkable. Surgical clips are noted in the gallbladder fossa, consistent with a prior cholecystectomy. The liver, spleen, pancreas, adrenal glands and kidneys are normal in appearance. The abdominal aorta is normal in caliber. The bowel gas pattern is non-obstructive. There is no free air. The colon is within normal limits. The small bowel is grossly unremarkable. There are interval postsurgical changes from an appendectomy . The bladder, prostate and seminal vesicles are within normal limits. No pelvic mass or fluid collection is noted. Degenerative changes are noted in the spine. No acute osseous abnormality is noted. Impression: 1. There are multiple thick-walled cavitary lesions seen in the visualized portion of the right lower lobe, with the largest measuring approximately 2.9 x 1.9 cm in size. The findings were not evident o n the prior examinations and are probably infectious in nature. Other etiologies, including a neoplas tic process cannot be excluded. A 6 mm indeterminate noncalcified pulmonary nodule is present in the left lower lobe. A CT of the chest, with intravenous contrast, is recommended for further evaluation of the above findings. 2. There are postsurgical changes from a prior cholecystectomy and an interval appendectomy. Reported By:
== END | disposition home or self-care (01) | DRG 696 ==
LOC: RAD 13:58
PROVIDERS: ATTEND Internal Medicine
DX: R31.9 Hematuria, unspecified (principal); R10.84 Generalized abdominal pain; R91.1 Solitary pulmonary nodule
CPT/HCPCS: 74176

== ENCOUNTER 2017-11-14 12:59 | Inpatient (IN) ==
[2017-11-14] MEDS ORDERED: ZOFRAN INJ 4 MG VIAL IVP PRN (14:02)
[2017-11-14 14:34] LABS: ABG BASE EXCESS 0.2 mmol/L (-2.0-2.0); ABG HCO3 23.5 mmol/L (22-26)
[2017-11-14 14:35] LABS: ABG ALLEN TEST POS
[2017-11-14 14:40] LABS: BASOPHILS # (AUTO) 0.1 X10^3/uL (0.0-0.1); BASOPHILS % (AUTO) 0.5 % (0.2-1.0); EOSINOPHILS % (AUTO) 0.2 % (0.9-2.9); HEMATOCRIT 29.6 % (42.0-54.0); HEMOGLOBIN 9.8 g/dL (13.5-18.0); LYMPHOCYTES # (AUTO) 0.8 X10^3/uL (1.3-2.9); LYMPHOCYTES % (AUTO) 6.4 % (21.0-51.0); MEAN CORPUSCULAR HGB CONC 33.1 g/dL (33.0-35.0); MEAN CORPUSCULAR VOLUME 75.5 fL (80.0-100.0); MEAN PLATELET VOLUME 7.1 fL (7.4-11.0); MONOCYTES # (AUTO) 0.2 x10^3/uL (0.3-0.8); MONOCYTES % (AUTO) 1.7 % (0.0-13.0); NEUTROPHILS # (AUTO) 11.4 x10^3/uL (2.2-4.8); NEUTROPHILS % (AUTO) 91.2 % (42.0-75.0); PLATELET COUNT 698 X10^3/uL (150.0-450.0); RED BLOOD COUNT 3.92 X10^6/uL (4.7-6.0); WHITE BLOOD COUNT 12.5 X10^3/uL (3.6-10.0)
[2017-11-14 15:03] LABS: ALANINE AMINOTRANSFERASE 20 Units/L (12-78); ALBUMIN 4.5 g/dL (3.4-5.0); ALKALINE PHOSPHATASE 118 Units/L (46-116); AMYLASE 106 Units/L (25-115); ASPARTATE AMINO TRANSFERASE 17 Units/L (15-37); BLOOD UREA NITROGEN 19 mg/dL (7-18); CALCIUM 10.5 mg/dL (8.5-10.1); CARBON DIOXIDE 24.5 mmol/L (21-32); CHLORIDE 95 mmol/L (98-107); COR NA(FOR HYPERGLY) 140 mmol/L (136-145); CREATININE 1.27 mg/dL (0.70-1.30); LIPASE 304 Units/L (73-393); SODIUM 135 mmol/L (136-145); TOTAL PROTEIN > 12.0 g/dL (6.4-8.2); eGFR NON BLACK RACES > 60 (>60)
[2017-11-14] MEDS ORDERED: SALINE 3% 15 ML NEB TX NEB ONE (15:03)
[2017-11-14 15:06] LABS: BAND NEUTROPHILS % 2 % (0-10)
[2017-11-14 15:07] LABS: PLATELET MORPHOLOGY COMMENT NORMAL (NORMAL)
[2017-11-14 15:30] LABS: BILIRUBIN,URINE NEGATIVE (NEGATIVE); BLOOD/HEMOGLOBIN,URINE 4+ (NEGATIVE); GLUCOSE, URINE 4+ (NEGATIVE); KETONES,URINE 2+ (NEGATIVE); LEUKOCYTE ESTERASE ,URINE NEGATIVE (NEGATIVE); NITRITES,URINE NEGATIVE (NEGATIVE); PH,URINE 6.5 (5.0 - 8.0); PROTEIN,URINE 4+ (NEGATIVE); UROBILINOGEN,URINE NORMAL (NORMAL)
[2017-11-14 15:38] LABS: APPEARANCE,URINE CLEAR (CLEAR); COLOR,URINE YELLOW (YELLOW)
[2017-11-14 15:47] LABS: BACTERIA,URINE NEGATIVE /HPF (NEGATIVE); RBC,URINE 30-50 /HPF (NONE SEEN); SQUAMOUS EPITHELIAL CELL,UR RARE /HPF (NEGATIVE)
[2017-11-14 15:48] LABS: AMORPHOUS SEDIMENT,UR 1+ /HPF (NEGATIVE); MUCUS,URINE MODERATE /HPF (NEGATIVE)
[2017-11-14] MEDS: DEMEROL INJ IVP PRN ×2 (16:04→21:00)
[2017-11-14] MEDS: XOPENEX 1.25 MG/3 ML NEBULE NEB SCH ×2 (16:12→21:51)
--- NOTE | 2017-11-14 16:25 | RAD ---
HISTORY: Central line placement Study: AP portable chest Comparison: 11/07/2017 Findings: Near complete clearing of the right lung base is noted. The left lung base is clear. The heart size is normal. No acute bony abnormalities are identified. There has been placement of a right-sided s ubclavian line. The line crosses the midline and the tip is in the left subclavian vein. It needs t o be repositioned. IMPRESSION: 1. Near complete clearing of the right lung base with complete clearing of the left lung base. 2. A right-sided central line is been placed. No evidence of pneumothorax is noted. The line cross es the midline and the tip is in the left subclavian vein. Reported By:
[2017-11-14] MEDS: HumuLIN R SC PRN ×2 (17:20→21:54)
[2017-11-14] MEDS: PHENERGAN INJ 25 MG IV PRN (17:39)
[2017-11-14] MEDS: NS 1000 ML 1,000 ML IV SCH ×2 (17:41→22:55)
[2017-11-14] MEDS ORDERED: ZOFRAN IV PRN (18:37)
[2017-11-14] MEDS ORDERED: ATIVAN IV PRN (18:37)
[2017-11-14] MEDS ORDERED: NS IV PRN (18:37)
[2017-11-14] MEDS ORDERED: NS 100 ML IV 100 ML IV ONE (18:41)
[2017-11-14] MEDS ORDERED: CATAPRES-TTS-3 TD ONE (18:42)
[2017-11-14] MEDS ORDERED: ATIVAN INJ 2 MG VIAL ONE (18:42)
[2017-11-14] MEDS ORDERED: CATAPRES-TTS-3 TD SCH (19:00)
[2017-11-14] MEDS ORDERED: COMPAZINE PO PRN (23:05)
[2017-11-15] MEDS ORDERED: NORMODYNE INJ 100 MG VIAL ONE (00:31)
[2017-11-15] MEDS: NORMODYNE INJ 20 MG VIAL IVP PRN ×4 (00:35→13:35)
[2017-11-15] MEDS: DEMEROL INJ IVP PRN ×4 (01:22→13:34)
[2017-11-15] MEDS: NS 1000 ML 1,000 ML IV SCH ×3 (05:10→13:34)
[2017-11-15 05:18] LABS: BASOPHILS # (AUTO) 0.1 X10^3/uL (0.0-0.1); BASOPHILS % (AUTO) 0.9 % (0.2-1.0); EOSINOPHILS % (AUTO) 0.2 % (0.9-2.9); HEMATOCRIT 24.9 % (42.0-54.0); HEMOGLOBIN 8.3 g/dL (13.5-18.0); LYMPHOCYTES # (AUTO) 1.1 X10^3/uL (1.3-2.9); LYMPHOCYTES % (AUTO) 9.6 % (21.0-51.0); MEAN CORPUSCULAR HEMOGLOBIN 24.9 pg (27.0-34.0); MEAN CORPUSCULAR HGB CONC 33.6 g/dL (33.0-35.0); MEAN CORPUSCULAR VOLUME 74.2 fL (80.0-100.0); MEAN PLATELET VOLUME 7.1 fL (7.4-11.0); MONOCYTES % (AUTO) 8.3 % (0.0-13.0); NEUTROPHILS # (AUTO) 9.4 x10^3/uL (2.2-4.8); PLATELET COUNT 638 X10^3/uL (150.0-450.0); RED BLOOD COUNT 3.35 X10^6/uL (4.7-6.0); RED CELL DISTRIBUTION WIDTH 16.7 % (11.6-16.5); WHITE BLOOD COUNT 11.7 X10^3/uL (3.6-10.0)
[2017-11-15 05:29] LABS: ALANINE AMINOTRANSFERASE 7 Units/L (12-78); ALBUMIN 3.4 g/dL (3.4-5.0); ALKALINE PHOSPHATASE 96 Units/L (46-116); ASPARTATE AMINO TRANSFERASE 13 Units/L (15-37); BLOOD UREA NITROGEN 22 mg/dL (7-18); CALCIUM 9.5 mg/dL (8.5-10.1); CARBON DIOXIDE 23.6 mmol/L (21-32); CHLORIDE 103 mmol/L (98-107); COR NA(FOR HYPERGLY) 143 mmol/L (136-145); CREATININE 1.35 mg/dL (0.70-1.30); SODIUM 141 mmol/L (136-145); TOTAL PROTEIN 10.1 g/dL (6.4-8.2); eGFR NON BLACK RACES > 60 (>60)
[2017-11-15 05:44] LABS: ANISOCYTOSIS SLIGHT; HYPOCHROMASIA SLIGHT; PLATELET MORPHOLOGY COMMENT NORMAL (NORMAL)
[2017-11-15] MEDS: NEURONTIN CAP 300 MG PO SCH ×3 (06:05→22:11)
[2017-11-15] MEDS: CARAFATE PO SCH ×4 (06:05→20:19)
[2017-11-15] MEDS: HumuLIN R SC PRN ×3 (06:06→16:42)
[2017-11-15] MEDS: HumaLOG SC SCH ×3 (07:00→16:42)
[2017-11-15] MEDS: K-DUR TAB 20 MEQ PO SCH (08:03)
[2017-11-15] MEDS: COZAAR PO SCH (08:03)
[2017-11-15] MEDS: LOPRESSOR TAB 50 MG PO SCH ×2 (08:04→20:20)
[2017-11-15] MEDS: PROTONIX INJ 40 MG VIAL IVP SCH ×2 (08:04→20:20)
[2017-11-15] MEDS: PEPCID 20 MG IV PREMIX* 20 MG/50 ML BAG IV SCH ×2 (08:04→20:19)
[2017-11-15 08:59] VITALS: BMI 22.6
[2017-11-15] MEDS ORDERED: POTASSIUM CHLORIDE PO SCH (09:00)
[2017-11-15] MEDS ORDERED: LOSARTAN 100 MG PO SCH (09:00)
[2017-11-15] MEDS: XOPENEX 1.25 MG/3 ML NEBULE NEB SCH ×3 (09:45→16:03)
[2017-11-15] MEDS: MILK OF MAGNESIA PO SCH (20:19)
[2017-11-15] MEDS: COLACE CAP 100 MG PO SCH (20:20)
[2017-11-15] MEDS: ZANAFLEX PO SCH (20:20)
[2017-11-15] MEDS: ELAVIL PO SCH (20:20)
[2017-11-16] MEDS: DEMEROL INJ IVP PRN ×4 (03:30→17:27)
[2017-11-16 05:48] LABS: BASOPHILS % (AUTO) 0.5 % (0.2-1.0); EOSINOPHILS # (AUTO) 0.1 x10^3/uL (0.0-0.2); EOSINOPHILS % (AUTO) 1.6 % (0.9-2.9); HEMATOCRIT 22.4 % (42.0-54.0); HEMOGLOBIN 7.6 g/dL (13.5-18.0); LYMPHOCYTES # (AUTO) 1.9 X10^3/uL (1.3-2.9); LYMPHOCYTES % (AUTO) 21.4 % (21.0-51.0); MEAN CORPUSCULAR HEMOGLOBIN 25.7 pg (27.0-34.0); MEAN CORPUSCULAR HGB CONC 34.1 g/dL (33.0-35.0); MEAN CORPUSCULAR VOLUME 75.4 fL (80.0-100.0); MEAN PLATELET VOLUME 6.9 fL (7.4-11.0); MONOCYTES # (AUTO) 0.7 x10^3/uL (0.3-0.8); MONOCYTES % (AUTO) 7.5 % (0.0-13.0); PLATELET COUNT 502 X10^3/uL (150.0-450.0); RED BLOOD COUNT 2.97 X10^6/uL (4.7-6.0); RED CELL DISTRIBUTION WIDTH 16.8 % (11.6-16.5); WHITE BLOOD COUNT 8.7 X10^3/uL (3.6-10.0)
[2017-11-16 05:49] LABS: ALANINE AMINOTRANSFERASE 12 Units/L (12-78); ALBUMIN 2.8 g/dL (3.4-5.0); ALKALINE PHOSPHATASE 83 Units/L (46-116); ASPARTATE AMINO TRANSFERASE 11 Units/L (15-37); BLOOD UREA NITROGEN 17 mg/dL (7-18); CALCIUM 8.6 mg/dL (8.5-10.1); CARBON DIOXIDE 25.6 mmol/L (21-32); CHLORIDE 104 mmol/L (98-107); COR CA(FOR HYPOALB) 9.6 mg/dL (8.5-10.1); COR NA(FOR HYPERGLY) 141 mmol/L (136-145); CREATININE 1.01 mg/dL (0.70-1.30); SODIUM 139 mmol/L (136-145); TOTAL PROTEIN 8.4 g/dL (6.4-8.2); eGFR NON BLACK RACES > 60 (>60)
[2017-11-16] MEDS: NEURONTIN CAP 300 MG PO SCH ×3 (05:56→22:30)
[2017-11-16] MEDS: CARAFATE PO SCH ×4 (05:57→20:18)
[2017-11-16] MEDS: NS 1000 ML 1,000 ML IV SCH ×5 (05:57→22:31)
[2017-11-16] MEDS: HumaLOG SC SCH ×3 (05:58→16:41)
[2017-11-16 06:09] LABS: ANISOCYTOSIS SLIGHT; HYPOCHROMASIA 1+; PLATELET MORPHOLOGY COMMENT NORMAL (NORMAL)
[2017-11-16] MEDS: HumuLIN R SC PRN ×4 (06:51→20:48)
[2017-11-16] MEDS: XOPENEX 1.25 MG/3 ML NEBULE NEB SCH ×4 (08:48→20:44)
[2017-11-16] MEDS: COZAAR PO SCH (09:25)
[2017-11-16] MEDS: PROTONIX INJ 40 MG VIAL IVP SCH ×2 (09:26→20:19)
[2017-11-16] MEDS: MILK OF MAGNESIA PO SCH ×2 (09:26→20:17)
[2017-11-16] MEDS: PEPCID 20 MG IV PREMIX* 20 MG/50 ML BAG IV SCH ×2 (09:26→20:16)
[2017-11-16] MEDS: K-DUR TAB 20 MEQ PO SCH (09:26)
[2017-11-16] MEDS: LOPRESSOR TAB 50 MG PO SCH ×2 (09:26→20:18)
[2017-11-16] MEDS: PHENERGAN INJ 25 MG IV PRN (11:25)
[2017-11-16] MEDS: NORMODYNE INJ 20 MG VIAL IVP PRN (12:21)
[2017-11-16] MEDS: BENTYL CAP 10 MG PO SCH ×3 (13:14→20:18)
[2017-11-16] MEDS: COLACE CAP 100 MG PO SCH (20:18)
[2017-11-16] MEDS: ELAVIL PO SCH (20:18)
[2017-11-16] MEDS: ZANAFLEX PO SCH (20:18)
--- NOTE | 2017-11-16 20:27 | PCM.PROG ---
Progress Note - Progress Note for Day of Date: 11/15/17 - Subjective Subjective: WAS ADMITTED FOR INTRACTABLE NAUSEA, VOMITING, AND ABDOMAL PAIN. TODAY, HE IS ALERT AND ORIENTED, LYING IN BED ON MORNING ROUNDS. HE CONTINUES WITH NAUSEA AND ABDOMINAL PAIN TODAY. ON EXAMINATION, HEART IS REGULAR IN RATE AND RHYTHM. BILATERAL LUNGS ARE CLEAR TO AUSCULTATION. ABDOMEN IS ROUND, SOFT, AND NOTED WITH MILD, DIFFUSE TENDERNESS TO PALPATION. HYPERACTIVE BOWEL SOUNDS ARE NOTED IN ALL QUADRANTS. HIS VITALS THIS MORNING ARE 98.9-991-14-100%-197/101. LABS WERE OBTAINED. ABNORMAL LAB VALUES INCLUDE THE FOLLOWING: WBC 11.7, RBC 3.35, HGB 8.3, HCT 24.9, PLT COUNT 638, BUN 22, CREATININE 1.35, GLUCOSE 204, AST 13, ALT 7, TOTAL PROTEIN 10.1, GLOBULIN 6.7. A CENTRAL LINE WAS PLACED DUE TO POOR PERIPHERAL ACCESS. A CHEST XRAY WAS OBTAINED YESTERDAY AND REVEALED NEAR COMPLETE CLEARING OF THE LUNG BASE WITH COMPLETE CLEARING OF THE LEFT LUNG BASE. BLOOD AND URINE CULTURES ARE PENDING. TODAY, WE WILL CONTINUE WITH IV FLUIDS, NAUSEA MEDICATIONS, AND CURRENT PLAN OF CARE. OTHERWISE, WE WILL FOLLOW UP WITH AM LABS AND CONTINUE TO MONITOR PATIENT. - Past Medical Family Social History Past Med/Fam/Surg Hx: No changes since H&P Allergies: Allergies codeine Allergy (Verified 11/14/17 15:19) morphine Allergy (Verified 11/14/17 15:19) - Review of Systems ROS: No change since H&P - Vital Signs and I&O's Vital Signs: Temperature 97.8 F Pulse Rate [Left Brachial] 97 Pulse Rate 89 Respiratory Rate 18 Blood Pressure [Right Arm] 162/91 Blood Pressure [Left Arm] 197/101 Blood Pressure [Left Radial 160/102 Artery] Blood Pressure 142/81 O2 Sat by Pulse Oximetry 100 Intake and Output: Intake & Output 11/14/17 11/15/17 11/16/17 11/17/17 11:59 11:59 11:59 11:59 Intake Total 1650 / 1650 1979 / 1979 1680 / 1680 Balance 1650 / 1650 1979 1680 / 1680 - Physical Exam Oriented: Normal Eyes: Normal Ear: Normal Nose: Normal Throat: Normal Respiratory: Normal Cardiovascular: Normal : Normal Auscultation: Bowel Sounds: Increased Palpation: Normal Tenderness: Diffuse, Mild. negative: Rebound, Guarding, Rigidity Skin: Normal Musculoskeletal: Normal Psychiatric: Normal Mood Description: Calm Affect: Normal Speech Pattern: Clear - Laboratory and Diagnostics Result Diagrams: 11/16/17 04:54 11/16/17 04:54 Labs: 11/14/17 15:00 Urine,Clean Catch Urine Culture - Final 11/14/17 14:28 Blood Blood Culture - Preliminary 11/14/17 14:19 Blood Blood Culture - Preliminary Laboratory WBC 8.7 X10^3/uL (3.6-10.0) 11/16/17 04:54 RBC 2.97 X10^6/uL (4.7-6.0) L 11/16/17 04:54 Hgb 7.6 g/dL (13.5-18.0) L 11/16/17 04:54 Hct 22.4 % (42.0-54.0) L 11/16/17 04:54 MCV 75.4 fL (80.0-100.0) L 11/16/17 04:54 MCH 25.7 pg (27.0-34.0) L 11/16/17 04:54 MCHC 34.1 g/dL (33.0-35.0) 11/16/17 04:54 RDW 16.8 % (11.6-16.5) H 11/16/17 04:54 Plt Count 502 X10^3/uL (150.0-450.0) H 11/16/17 04:54 Plt Count Comment Increased (ADEQUATE) 11/16/17 04:54 MPV 6.9 fL (7.4-11.0) L 11/16/17 04:54 Neut % (Auto) 69.0 % (42.0-75.0) 11/16/17 04:54 Lymph % (Auto) 21.4 % (21.0-51.0) 11/16/17 04:54 [place] % (Auto) 7.5 % (0.0-13.0) 11/16/17 04:54 Eos % (Auto) 1.6 % (0.9-2.9) 11/16/17 04:54 Baso % (Auto) 0.5 % (0.2-1.0) 11/16/17 04:54 Neut # (Auto) 6.0 x10^3/uL (2.2-4.8) H 11/16/17 04:54 Lymph # (Auto) 1.9 X10^3/uL (1.3-2.9) 11/16/17 04:54 [place] # (Auto) 0.7 x10^3/uL (0.3-0.8) 11/16/17 04:54 Eos # (Auto) 0.1 x10^3/uL (0.0-0.2) 11/16/17 04:54 Baso # (Auto) 0.0 X10^3/uL (0.0-0.1) 11/16/17 04:54 Absolute Nucleated RBC 0.1 /100WBC 11/16/17 04:54 Total Counted 100 11/14/17 14:19 Neutrophils % (Manual) 89 % (39-76) H 11/14/17 14:19 Band Neutrophils % 2 % (0-10) 11/14/17 14:19 Lymphocytes % (Manual) 9 % (13-43) L 11/14/17 14:19 Plt Morphology Comment Normal (NORMAL) 11/16/17 04:54 RBC Morphology Abnormal (NORMAL) 11/16/17 04:54 Hypochromasia 1+ A 11/16/17 04:54 Anisocytosis Slight A 11/16/17 04:54 Sample Site Lra 11/14/17 14:25 ABG pH 7.460 (7.35-7.45) H 11/14/17 14:25 ABG pCO2 33.0 mmHg (35.0-45.0) L 11/14/17 14:25 ABG pO2 110.0 mmHg (80.0-100.0) H 11/14/17 14:25 ABG HCO3 23.5 mmol/L (22-26) 11/14/17 14:25 ABG O2 Saturation 99.0 % (90-100) 11/14/17 14:25 ABG Base Excess 0.2 mmol/L (-2.0-2.0) 11/14/17 14:25 Wang Test Pos 11/14/17 14:25 A-a Gradient -2.0 mmHg 11/14/17 14:25 FiO2 21.000 11/14/17 14:25 Blood Gas Comments Les well cs 11/14/17 14:25 Sodium 139 mmol/L (136-145) 11/16/17 04:54 Corrected Sodium 141 mmol/L (136-145) 11/16/17 04:54 Potassium 3.9 mmol/L (3.5-5.1) 11/16/17 04:54 Chloride 104 mmol/L (98-107) 11/16/17 04:54 Carbon Dioxide 25.6 mmol/L (21-32) 11/16/17 04:54 BUN 17 mg/dL (7-18) 11/16/17 04:54 Creatinine 1.01 mg/dL (0.70-1.30) 11/16/17 04:54 Est GFR (MDRD) Af Amer > 60 (>60) 11/16/17 04:54 Est GFR (MDRD) Non-Af > 60 (>60) 11/16/17 04:54 Glucose 176 mg/dL (65-99) H 11/16/17 04:54 POC Glucose (mg/dL) 224 mg/dL (65-99) H 11/16/17 20:09 Calcium 8.6 mg/dL (8.5-10.1) 11/16/17 04:54 Corrected Calcium 9.6 mg/dL (8.5-10.1) 11/16/17 04:54 Total Bilirubin 0.30 mg/dL (0.2-1.0) 11/16/17 04:54 AST 11 Units/L (15-37) L 11/16/17 04:54 ALT 12 Units/L (12-78) 11/16/17 04:54 Alkaline Phosphatase 83 Units/L (46-116) 11/16/17 04:54 Total Protein 8.4 g/dL (6.4-8.2) H 11/16/17 04:54 Albumin 2.8 g/dL (3.4-5.0) L 11/16/17 04:54 Globulin 5.6 g/dL (2.5-4.5) H 11/16/17 04:54 Albumin/Globulin Ratio 0.5 Ratio (1.1-2.1) L 11/16/17 04:54 Amylase 106 Units/L (25-115) 11/14/17 14:19 Lipase 304 Units/L (73-393) 11/14/17 14:19 Specimen Type Clean catch urine 11/14/17 15:00 Urine Color Yellow (YELLOW) 11/14/17 15:00 Urine Appearance Clear (CLEAR) 11/14/17 15:00 Urine pH 6.5 (5.0 - 8.0) 11/14/17 15:00 Ur Specific [place] 1.010 (1.000-1.030) 11/14/17 15:00 Urine Protein 4+ (NEGATIVE) 11/14/17 15:00 Urine Glucose (UA) 4+ (NEGATIVE) 11/14/17 15:00 Urine Ketones 2+ (NEGATIVE) 11/14/17 15:00 Urine Occult Blood 4+ (NEGATIVE) 11/14/17 15:00 Urine Nitrite Negative (NEGATIVE) 11/14/17 15:00 Urine Bilirubin Negative (NEGATIVE) 11/14/17 15:00 Urine Urobilinogen Normal (NORMAL) 11/14/17 15:00 Ur Leukocyte Esterase Negative (NEGATIVE) 11/14/17 15:00 Urine RBC 30-50 /HPF (NONE SEEN) 11/14/17 15:00 Urine WBC 3-5 /HPF (NONE SEEN) 11/14/17 15:00 Ur Squamous Epith Cells Rare /HPF (NEGATIVE) 11/14/17 15:00 Amorphous Sediment 1+ /HPF (NEGATIVE) 11/14/17 15:00 Urine Bacteria Negative /HPF (NEGATIVE) 11/14/17 15:00 Urine Mucus Moderate /HPF (NEGATIVE) 11/14/17 15:00 Ur Culture Indicated? No/not indicated 11/14/17 15:00 - Plan (1) Intractable nausea and vomiting Status: Acute Qualifiers: Vomiting type: unspecified Qualified Code(s): R11.2 - Nausea with vomiting , unspecified Plan: PEPCID IV, PROTONIX IV, ZOFRAN COCKTAIL, PHENERGAN IV, COMPAZINE, CARAFATE , CONTINUE TO MONITOR (2) Abdominal pain Status: Acute Qualifiers: Abdominal location: generalized Qualified Code(s): R10.84 - Generalized abdominal pain (3) Anemia Status: Acute Qualifiers: Anemia type: iron deficiency Iron deficiency anemia type: unspecified iron deficiency Qualified Code(s): D50.9 - Iron deficiency anemia, unspecified (4) Diabetic gastroparesis Status: Acute (5) Diabetes mellitus type 1 Status: Chronic Qualifiers: Diabetes mellitus complication status: with hyperglycemia Qualified Code(s) : E10.65 - Type 1 diabetes mellitus with hyperglycemia (6) Hypertension Status: Chronic Qualifiers: Hypertension type: essential hypertension
--- NOTE | 2017-11-16 20:30 | PCM.PROG ---
Progress Note - Progress Note for Day of Date: 11/16/17 - Subjective Subjective: WAS ADMITTED FOR INTRACTABLE NAUSEA, VOMITING, AND ABDOMAL PAIN. TODAY, HE IS ALERT AND ORIENTED, LYING IN BED ON MORNING ROUNDS. HE CONTINUES WITH NAUSEA AND ABDOMINAL PAIN TODAY. ON EXAMINATION, HEART IS REGULAR IN RATE AND RHYTHM. BILATERAL LUNGS ARE CLEAR TO AUSCULTATION. ABDOMEN IS ROUND, SOFT, AND NOTED WITH MILD, DIFFUSE TENDERNESS TO PALPATION. HYPERACTIVE BOWEL SOUNDS ARE NOTED IN ALL QUADRANTS. HIS VITALS THIS MORNING ARE 97.29-215-06-100%-154/80. LABS WERE OBTAINED. ABNORMAL LAB VALUES INCLUDE THE FOLLOWING: RBC 2.97, HGB 7.6, HCT 22.4, GLUCOSE 176, AST 11, TOTAL PROTEIN 8.4, ALBUMIN 2.8. BLOOD AND URINE CULTURES ARE PENDING. TODAY, WE WILL CONTINUE WITH IV FLUIDS, NAUSEA MEDICATIONS, AND CURRENT PLAN OF CARE. WE WILL START BENTYL 20MG PO QID OTHERWISE, WE WILL FOLLOW UP WITH AM LABS AND CONTINUE TO MONITOR PATIENT. - Past Medical Family Social History Past Med/Fam/Surg Hx: No changes since H&P Allergies: Allergies codeine Allergy (Verified 11/14/17 15:19) morphine Allergy (Verified 11/14/17 15:19) - Review of Systems ROS: No change since H&P - Vital Signs and I&O's Vital Signs: Temperature 97.8 F Pulse Rate [Left Brachial] 97 Pulse Rate 89 Respiratory Rate 18 Blood Pressure [Right Arm] 162/91 Blood Pressure [Left Arm] 197/101 Blood Pressure [Left Radial 160/102 Artery] Blood Pressure 142/81 O2 Sat by Pulse Oximetry 100 Intake and Output: Intake & Output 11/14/17 11/15/17 11/16/17 11/17/17 11:59 11:59 11:59 11:59 Intake Total 1650 / 1650 1979 1680 / 1680 Balance 1650 / 1650 1979 1680 / 1680 - Physical Exam Oriented: Normal Eyes: Normal Ear: Normal Nose: Normal Throat: Normal Respiratory: Normal Cardiovascular: Normal : Normal Auscultation: Bowel Sounds: Increased Palpation: Normal Tenderness: Diffuse, Mild. negative: Rebound, Guarding, Rigidity Skin: Normal Musculoskeletal: Normal Psychiatric: Normal Mood Description: Calm Affect: Normal Speech Pattern: Clear - Laboratory and Diagnostics Result Diagrams: 11/16/17 04:54 11/16/17 04:54 Labs: 11/14/17 15:00 Urine,Clean Catch Urine Culture - Final 11/14/17 14:28 Blood Blood Culture - Preliminary 11/14/17 14:19 Blood Blood Culture - Preliminary Laboratory WBC 8.7 X10^3/uL (3.6-10.0) 11/16/17 04:54 RBC 2.97 X10^6/uL (4.7-6.0) L 11/16/17 04:54 Hgb 7.6 g/dL (13.5-18.0) L 11/16/17 04:54 Hct 22.4 % (42.0-54.0) L 11/16/17 04:54 MCV 75.4 fL (80.0-100.0) L 11/16/17 04:54 MCH 25.7 pg (27.0-34.0) L 11/16/17 04:54 MCHC 34.1 g/dL (33.0-35.0) 11/16/17 04:54 RDW 16.8 % (11.6-16.5) H 11/16/17 04:54 Plt Count 502 X10^3/uL (150.0-450.0) H 11/16/17 04:54 Plt Count Comment Increased (ADEQUATE) 11/16/17 04:54 MPV 6.9 fL (7.4-11.0) L 11/16/17 04:54 Neut % (Auto) 69.0 % (42.0-75.0) 11/16/17 04:54 Lymph % (Auto) 21.4 % (21.0-51.0) 11/16/17 04:54 [place] % (Auto) 7.5 % (0.0-13.0) 11/16/17 04:54 Eos % (Auto) 1.6 % (0.9-2.9) 11/16/17 04:54 Baso % (Auto) 0.5 % (0.2-1.0) 11/16/17 04:54 Neut # (Auto) 6.0 x10^3/uL (2.2-4.8) H 11/16/17 04:54 Lymph # (Auto) 1.9 X10^3/uL (1.3-2.9) 11/16/17 04:54 [place] # (Auto) 0.7 x10^3/uL (0.3-0.8) 11/16/17 04:54 Eos # (Auto) 0.1 x10^3/uL (0.0-0.2) 11/16/17 04:54 Baso # (Auto) 0.0 X10^3/uL (0.0-0.1) 11/16/17 04:54 Absolute Nucleated RBC 0.1 /100WBC 11/16/17 04:54 Total Counted 100 11/14/17 14:19 Neutrophils % (Manual) 89 % (39-76) H 11/14/17 14:19 Band Neutrophils % 2 % (0-10) 11/14/17 14:19 Lymphocytes % (Manual) 9 % (13-43) L 11/14/17 14:19 Plt Morphology Comment Normal (NORMAL) 11/16/17 04:54 RBC Morphology Abnormal (NORMAL) 11/16/17 04:54 Hypochromasia 1+ A 11/16/17 04:54 Anisocytosis Slight A 11/16/17 04:54 Sample Site Lra 11/14/17 14:25 ABG pH 7.460 (7.35-7.45) H 11/14/17 14:25 ABG pCO2 33.0 mmHg (35.0-45.0) L 11/14/17 14:25 ABG pO2 110.0 mmHg (80.0-100.0) H 11/14/17 14:25 ABG HCO3 23.5 mmol/L (22-26) 11/14/17 14:25 ABG O2 Saturation 99.0 % (90-100) 11/14/17 14:25 ABG Base Excess 0.2 mmol/L (-2.0-2.0) 11/14/17 14:25 Wang Test Pos 11/14/17 14:25 A-a Gradient -2.0 mmHg 11/14/17 14:25 FiO2 21.000 11/14/17 14:25 Blood Gas Comments Les well cs 11/14/17 14:25 Sodium 139 mmol/L (136-145) 11/16/17 04:54 Corrected Sodium 141 mmol/L (136-145) 11/16/17 04:54 Potassium 3.9 mmol/L (3.5-5.1) 11/16/17 04:54 Chloride 104 mmol/L (98-107) 11/16/17 04:54 Carbon Dioxide 25.6 mmol/L (21-32) 11/16/17 04:54 BUN 17 mg/dL (7-18) 11/16/17 04:54 Creatinine 1.01 mg/dL (0.70-1.30) 11/16/17 04:54 Est GFR (MDRD) Af Amer > 60 (>60) 11/16/17 04:54 Est GFR (MDRD) Non-Af > 60 (>60) 11/16/17 04:54 Glucose 176 mg/dL (65-99) H 11/16/17 04:54 POC Glucose (mg/dL) 224 mg/dL (65-99) H 11/16/17 20:09 Calcium 8.6 mg/dL (8.5-10.1) 11/16/17 04:54 Corrected Calcium 9.6 mg/dL (8.5-10.1) 11/16/17 04:54 Total Bilirubin 0.30 mg/dL (0.2-1.0) 11/16/17 04:54 AST 11 Units/L (15-37) L 11/16/17 04:54 ALT 12 Units/L (12-78) 11/16/17 04:54 Alkaline Phosphatase 83 Units/L (46-116) 11/16/17 04:54 Total Protein 8.4 g/dL (6.4-8.2) H 11/16/17 04:54 Albumin 2.8 g/dL (3.4-5.0) L 11/16/17 04:54 Globulin 5.6 g/dL (2.5-4.5) H 11/16/17 04:54 Albumin/Globulin Ratio 0.5 Ratio (1.1-2.1) L 11/16/17 04:54 Amylase 106 Units/L (25-115) 11/14/17 14:19 Lipase 304 Units/L (73-393) 11/14/17 14:19 Specimen Type Clean catch urine 11/14/17 15:00 Urine Color Yellow (YELLOW) 11/14/17 15:00 Urine Appearance Clear (CLEAR) 11/14/17 15:00 Urine pH 6.5 (5.0 - 8.0) 11/14/17 15:00 Ur Specific [place] 1.010 (1.000-1.030) 11/14/17 15:00 Urine Protein 4+ (NEGATIVE) 11/14/17 15:00 Urine Glucose (UA) 4+ (NEGATIVE) 11/14/17 15:00 Urine Ketones 2+ (NEGATIVE) 11/14/17 15:00 Urine Occult Blood 4+ (NEGATIVE) 11/14/17 15:00 Urine Nitrite Negative (NEGATIVE) 11/14/17 15:00 Urine Bilirubin Negative (NEGATIVE) 11/14/17 15:00 Urine Urobilinogen Normal (NORMAL) 11/14/17 15:00 Ur Leukocyte Esterase Negative (NEGATIVE) 11/14/17 15:00 Urine RBC 30-50 /HPF (NONE SEEN) 11/14/17 15:00 Urine WBC 3-5 /HPF (NONE SEEN) 11/14/17 15:00 Ur Squamous Epith Cells Rare /HPF (NEGATIVE) 11/14/17 15:00 Amorphous Sediment 1+ /HPF (NEGATIVE) 11/14/17 15:00 Urine Bacteria Negative /HPF (NEGATIVE) 11/14/17 15:00 Urine Mucus Moderate /HPF (NEGATIVE) 11/14/17 15:00 Ur Culture Indicated? No/not indicated 11/14/17 15:00 - Plan (1) Intractable nausea and vomiting Status: Acute Qualifiers: Vomiting type: unspecified Qualified Code(s): R11.2 - Nausea with vomiting , unspecified Plan: PEPCID IV, PROTONIX IV, ZOFRAN COCKTAIL, PHENERGAN IV, COMPAZINE, CARAFATE , CONTINUE TO MONITOR (2) Abdominal pain Status: Acute Qualifiers: Abdominal location: generalized (3) Anemia Status: Acute Qualifiers: Anemia type: iron deficiency Iron deficiency anemia type: unspecified iron deficiency Qualified Code(s): D50.9 - Iron deficiency anemia, unspecified (4) Diabetic gastroparesis Status: Acute (5) Diabetes mellitus type 1 Status: Chronic Qualifiers: Diabetes mellitus complication status: with hyperglycemia Qualified Code(s) : E10.65 - Type 1 diabetes mellitus with hyperglycemia (6) Hypertension Status: Chronic Qualifiers: Hypertension type: essential hypertension
[2017-11-17] MEDS: DEMEROL INJ IVP PRN ×4 (04:58→22:01)
[2017-11-17] MEDS: NS 1000 ML 1,000 ML IV SCH ×2 (05:04→21:57)
[2017-11-17 05:12] LABS: BASOPHILS # (AUTO) 0.1 X10^3/uL (0.0-0.1); BASOPHILS % (AUTO) 0.8 % (0.2-1.0); EOSINOPHILS # (AUTO) 0.1 x10^3/uL (0.0-0.2); EOSINOPHILS % (AUTO) 1.2 % (0.9-2.9); HEMATOCRIT 20.3 % (42.0-54.0); LYMPHOCYTES % (AUTO) 26.9 % (21.0-51.0); MEAN CORPUSCULAR HEMOGLOBIN 25.8 pg (27.0-34.0); MEAN CORPUSCULAR HGB CONC 34.3 g/dL (33.0-35.0); MEAN PLATELET VOLUME 6.7 fL (7.4-11.0); MONOCYTES # (AUTO) 0.7 x10^3/uL (0.3-0.8); MONOCYTES % (AUTO) 9.1 % (0.0-13.0); NEUTROPHILS # (AUTO) 4.5 x10^3/uL (2.2-4.8); PLATELET COUNT 444 X10^3/uL (150.0-450.0); RED BLOOD COUNT 2.71 X10^6/uL (4.7-6.0); RED CELL DISTRIBUTION WIDTH 16.9 % (11.6-16.5); WHITE BLOOD COUNT 7.3 X10^3/uL (3.6-10.0)
[2017-11-17 05:33] LABS: ALANINE AMINOTRANSFERASE 10 Units/L (12-78); ALBUMIN 2.6 g/dL (3.4-5.0); ALKALINE PHOSPHATASE 80 Units/L (46-116); ASPARTATE AMINO TRANSFERASE 10 Units/L (15-37); BLOOD UREA NITROGEN 11 mg/dL (7-18); CALCIUM 7.9 mg/dL (8.5-10.1); CARBON DIOXIDE 27.2 mmol/L (21-32); CHLORIDE 106 mmol/L (98-107); CREATININE 1.09 mg/dL (0.70-1.30); SODIUM 139 mmol/L (136-145); TOTAL PROTEIN 7.6 g/dL (6.4-8.2); eGFR NON BLACK RACES > 60 (>60)
[2017-11-17] MEDS: CARAFATE PO SCH ×4 (06:02→21:56)
[2017-11-17] MEDS: NEURONTIN CAP 300 MG PO SCH ×3 (06:02→21:56)
[2017-11-17] MEDS: HumaLOG SC SCH ×3 (06:04→17:59)
[2017-11-17 06:19] LABS: ANISOCYTOSIS SLIGHT; HYPOCHROMASIA 1+; MICROCYTOSIS SLIGHT; PLATELET MORPHOLOGY COMMENT NORMAL (NORMAL)
[2017-11-17] MEDS ORDERED: BENADRYL INJ 50 MG VIAL IVP PRN (08:13)
[2017-11-17] MEDS ORDERED: NS 500 ML IV 500 ML IV ONE (08:13)
[2017-11-17] MEDS ORDERED: TYLENOL 325 MG TAB PO PRN (08:13)
[2017-11-17] MEDS: XOPENEX 1.25 MG/3 ML NEBULE NEB SCH ×4 (08:38→21:15)
[2017-11-17] MEDS: K-DUR TAB 20 MEQ PO SCH (08:55)
[2017-11-17] MEDS: PEPCID 20 MG IV PREMIX* 20 MG/50 ML BAG IV SCH ×2 (08:55→21:56)
[2017-11-17] MEDS: BENTYL CAP 10 MG PO SCH ×4 (08:55→21:55)
[2017-11-17] MEDS: LOPRESSOR TAB 50 MG PO SCH ×2 (08:55→21:56)
[2017-11-17] MEDS: PROTONIX INJ 40 MG VIAL IVP SCH ×2 (08:55→21:56)
[2017-11-17] MEDS: COZAAR PO SCH (08:55)
[2017-11-17] MEDS: MILK OF MAGNESIA PO SCH ×2 (11:08→21:57)
[2017-11-17] MEDS: HumuLIN R SC PRN (12:06)
--- NOTE | 2017-11-17 21:46 | PCM.PROG ---
Progress Note - Progress Note for Day of Date: 11/17/17 - Subjective Subjective: WAS ADMITTED FOR INTRACTABLE NAUSEA, VOMITING, AND ABDOMAL PAIN. TODAY, HE IS ALERT AND ORIENTED, LYING IN BED ON MORNING ROUNDS. HE CONTINUES WITH NAUSEA AND ABDOMINAL PAIN TODAY. ON EXAMINATION, HEART IS REGULAR IN RATE AND RHYTHM. BILATERAL LUNGS ARE CLEAR TO AUSCULTATION. ABDOMEN IS ROUND, SOFT, AND NOTED WITH MILD, DIFFUSE TENDERNESS TO PALPATION. HYPERACTIVE BOWEL SOUNDS ARE NOTED IN ALL QUADRANTS. HIS VITALS THIS MORNING ARE 98.0-92-20-97%-170/94. LABS WERE OBTAINED. ABNORMAL LAB VALUES INCLUDE THE FOLLOWING: RBC 2.71, hgb 7.0, hct 20.3, calcium 7.9, ast 10, alt 10, albumin 2.6. BLOOD AND URINE CULTURES ARE PENDING. PRELIMINARY CULTURES REPORT NO GROWTH. TODAY, WE WILL CONTINUE WITH IV FLUIDS, NAUSEA MEDICATIONS, AND CURRENT PLAN OF CARE. WE WILL TRANSFUSE TWO UNITS OF PACKED RED BLOOD CELLS. OTHERWISE, WE WILL FOLLOW UP WITH AM LABS AND CONTINUE TO MONITOR PATIENT. - Past Medical Family Social History Past Med/Fam/Surg Hx: No changes since H&P Allergies: Allergies codeine Allergy (Verified 11/14/17 15:19) morphine Allergy (Verified 11/14/17 15:19) - Review of Systems ROS: No change since H&P - Vital Signs and I&O's Vital Signs: Temperature 98.6 F Pulse Rate [Left Brachial] 89 Pulse Rate 106 Respiratory Rate 20 Blood Pressure [Right Arm] 115/67 Blood Pressure [Left Arm] 145/87 Blood Pressure [Left Radial 160/102 Artery] Blood Pressure 142/81 O2 Sat by Pulse Oximetry 96 Intake and Output: Intake & Output 11/15/17 11/16/17 11/17/17 11/18/17 11:59 11:59 11:59 11:59 Intake Total 1650 / 1650 1979 3910 / 3910 700 / 700 Balance 1650 / 1650 1979 3910 / 3910 700 / 700 - Physical Exam Oriented: Normal Eyes: Normal Ear: Normal Nose: Normal Throat: Normal Respiratory: Normal Cardiovascular: Normal : Normal Auscultation: Bowel Sounds: Increased Palpation: Normal Tenderness: Diffuse, Mild. negative: Rebound, Guarding, Rigidity Skin: Normal Musculoskeletal: Normal Psychiatric: Normal Mood Description: Calm Affect: Normal Speech Pattern: Clear - Laboratory and Diagnostics Result Diagrams: 11/17/17 04:46 11/17/17 19:58 Labs: 11/14/17 15:00 Urine,Clean Catch Urine Culture - Final 11/14/17 14:28 Blood Blood Culture - Preliminary 11/14/17 14:19 Blood Blood Culture - Preliminary Laboratory WBC 7.3 X10^3/uL (3.6-10.0) 11/17/17 04:46 RBC 2.71 X10^6/uL (4.7-6.0) L 11/17/17 04:46 Hgb 7.0 g/dL (13.5-18.0) L 11/17/17 04:46 Hct 20.3 % (42.0-54.0) L 11/17/17 04:46 MCV 75.0 fL (80.0-100.0) L 11/17/17 04:46 MCH 25.8 pg (27.0-34.0) L 11/17/17 04:46 MCHC 34.3 g/dL (33.0-35.0) 11/17/17 04:46 RDW 16.9 % (11.6-16.5) H 11/17/17 04:46 Plt Count 444 X10^3/uL (150.0-450.0) 11/17/17 04:46 Plt Count Comment Increased (ADEQUATE) 11/17/17 04:46 MPV 6.7 fL (7.4-11.0) L 11/17/17 04:46 Neut % (Auto) 62.0 % (42.0-75.0) 11/17/17 04:46 Lymph % (Auto) 26.9 % (21.0-51.0) 11/17/17 04:46 [place] % (Auto) 9.1 % (0.0-13.0) 11/17/17 04:46 Eos % (Auto) 1.2 % (0.9-2.9) 11/17/17 04:46 Baso % (Auto) 0.8 % (0.2-1.0) 11/17/17 04:46 Neut # (Auto) 4.5 x10^3/uL (2.2-4.8) 11/17/17 04:46 Lymph # (Auto) 2.0 X10^3/uL (1.3-2.9) 11/17/17 04:46 [place] # (Auto) 0.7 x10^3/uL (0.3-0.8) 11/17/17 04:46 Eos # (Auto) 0.1 x10^3/uL (0.0-0.2) 11/17/17 04:46 Baso # (Auto) 0.1 X10^3/uL (0.0-0.1) 11/17/17 04:46 Absolute Nucleated RBC 0.0 /100WBC 11/17/17 04:46 Total Counted 100 11/14/17 14:19 Neutrophils % (Manual) 89 % (39-76) H 11/14/17 14:19 Band Neutrophils % 2 % (0-10) 11/14/17 14:19 Lymphocytes % (Manual) 9 % (13-43) L 11/14/17 14:19 Plt Morphology Comment Normal (NORMAL) 11/17/17 04:46 RBC Morphology Abnormal (NORMAL) 11/17/17 04:46 Hypochromasia 1+ A 11/17/17 04:46 Anisocytosis Slight A 11/17/17 04:46 Microcytosis Slight A 11/17/17 04:46 Sample Site Lra 11/14/17 14:25 ABG pH 7.460 (7.35-7.45) H 11/14/17 14:25 ABG pCO2 33.0 mmHg (35.0-45.0) L 11/14/17 14:25 ABG pO2 110.0 mmHg (80.0-100.0) H 11/14/17 14:25 ABG HCO3 23.5 mmol/L (22-26) 11/14/17 14:25 ABG O2 Saturation 99.0 % (90-100) 11/14/17 14:25 ABG Base Excess 0.2 mmol/L (-2.0-2.0) 11/14/17 14:25 Wang Test Pos 11/14/17 14:25 A-a Gradient -2.0 mmHg 11/14/17 14:25 FiO2 21.000 11/14/17 14:25 Blood Gas Comments Les well cs 11/14/17 14:25 Sodium 139 mmol/L (136-145) 11/17/17 04:46 Corrected Sodium TNP 11/17/17 04:46 Potassium 3.5 mmol/L (3.5-5.1) 11/17/17 04:46 Chloride 106 mmol/L (98-107) 11/17/17 04:46 Carbon Dioxide 27.2 mmol/L (21-32) 11/17/17 04:46 BUN 11 mg/dL (7-18) 11/17/17 04:46 Creatinine 1.09 mg/dL (0.70-1.30) 11/17/17 04:46 Est GFR (MDRD) Af Amer > 60 (>60) 11/17/17 04:46 Est GFR (MDRD) Non-Af > 60 (>60) 11/17/17 04:46 Glucose 67 mg/dL (65-99) 11/17/17 19:58 POC Glucose (mg/dL) 142 mg/dL (65-99) H 11/17/17 20:39 Calcium 7.9 mg/dL (8.5-10.1) L 11/17/17 04:46 Corrected Calcium 9.0 mg/dL (8.5-10.1) 11/17/17 04:46 Total Bilirubin 0.20 mg/dL (0.2-1.0) 11/17/17 04:46 AST 10 Units/L (15-37) L 11/17/17 04:46 ALT 10 Units/L (12-78) L 11/17/17 04:46 Alkaline Phosphatase 80 Units/L (46-116) 11/17/17 04:46 Total Protein 7.6 g/dL (6.4-8.2) 11/17/17 04:46 Albumin 2.6 g/dL (3.4-5.0) L 11/17/17 04:46 Globulin 5.0 g/dL (2.5-4.5) H 11/17/17 04:46 Albumin/Globulin Ratio 0.5 Ratio (1.1-2.1) L 11/17/17 04:46 Amylase 106 Units/L (25-115) 11/14/17 14:19 Lipase 304 Units/L (73-393) 11/14/17 14:19 Specimen Type Clean catch urine 11/14/17 15:00 Urine Color Yellow (YELLOW) 11/14/17 15:00 Urine Appearance Clear (CLEAR) 11/14/17 15:00 Urine pH 6.5 (5.0 - 8.0) 11/14/17 15:00 Ur Specific [place] 1.010 (1.000-1.030) 11/14/17 15:00 Urine Protein 4+ (NEGATIVE) 11/14/17 15:00 Urine Glucose (UA) 4+ (NEGATIVE) 11/14/17 15:00 Urine Ketones 2+ (NEGATIVE) 11/14/17 15:00 Urine Occult Blood 4+ (NEGATIVE) 11/14/17 15:00 Urine Nitrite Negative (NEGATIVE) 11/14/17 15:00 Urine Bilirubin Negative (NEGATIVE) 11/14/17 15:00 Urine Urobilinogen Normal (NORMAL) 11/14/17 15:00 Ur Leukocyte Esterase Negative (NEGATIVE) 11/14/17 15:00 Urine RBC 30-50 /HPF (NONE SEEN) 11/14/17 15:00 Urine WBC 3-5 /HPF (NONE SEEN) 11/14/17 15:00 Ur Squamous Epith Cells Rare /HPF (NEGATIVE) 11/14/17 15:00 Amorphous Sediment 1+ /HPF (NEGATIVE) 11/14/17 15:00 Urine Bacteria Negative /HPF (NEGATIVE) 11/14/17 15:00 Urine Mucus Moderate /HPF (NEGATIVE) 11/14/17 15:00 Ur Culture Indicated? No/not indicated 11/14/17 15:00 Blood Type O POSITIVE 11/17/17 08:36 Antibody Screen Negative 11/17/17 08:36 Crossmatch See Detail 11/17/17 08:36 - Plan (1) Intractable nausea and vomiting Status: Acute Qualifiers: Vomiting type: unspecified Qualified Code(s): R11.2 - Nausea with vomiting , unspecified Plan: PEPCID IV, PROTONIX IV, ZOFRAN COCKTAIL, PHENERGAN IV, COMPAZINE, CARAFATE , CONTINUE TO MONITOR (2) Abdominal pain Status: Acute Qualifiers: Abdominal location: generalized (3) Anemia Status: Acute Qualifiers: Anemia type: iron deficiency Iron deficiency anemia type: unspecified iron deficiency Qualified Code(s): D50.9 - Iron deficiency anemia, unspecified Plan: TRANSFUSE 2 UNITS PACKED RED BLOOD CELLS (4) Diabetic gastroparesis Status: Acute (5) Diabetes mellitus type 1 Status: Chronic Qualifiers: Diabetes mellitus complication status: with hyperglycemia Qualified Code(s) : E10.65 - Type 1 diabetes mellitus with hyperglycemia (6) Hypertension Status: Chronic Qualifiers: Hypertension type: essential hypertension
[2017-11-17] MEDS ORDERED: NS 250 ML IV 250 ML IV ONE (21:48)
[2017-11-17] MEDS: COLACE CAP 100 MG PO SCH (21:55)
[2017-11-17] MEDS: ELAVIL PO SCH (21:55)
[2017-11-17] MEDS: ZANAFLEX PO SCH (21:56)
[2017-11-17] MEDS: KLONOPIN TAB 1 MG PO PRN (21:56)
[2017-11-17] MEDS: PHENERGAN INJ 25 MG IV PRN (22:28)
[2017-11-18 05:40] LABS: ALANINE AMINOTRANSFERASE < 6 Units/L (12-78); ALBUMIN 2.6 g/dL (3.4-5.0); ALKALINE PHOSPHATASE 104 Units/L (46-116); ASPARTATE AMINO TRANSFERASE 12 Units/L (15-37); BLOOD UREA NITROGEN 14 mg/dL (7-18); CALCIUM 7.8 mg/dL (8.5-10.1); CARBON DIOXIDE 24.8 mmol/L (21-32); CHLORIDE 101 mmol/L (98-107); COR CA(FOR HYPOALB) 8.9 mg/dL (8.5-10.1); COR NA(FOR HYPERGLY) 140 mmol/L (136-145); CREATININE 1.22 mg/dL (0.70-1.30); SODIUM 136 mmol/L (136-145); TOTAL PROTEIN 7.8 g/dL (6.4-8.2); eGFR NON BLACK RACES > 60 (>60)
[2017-11-18] MEDS: NEURONTIN CAP 300 MG PO SCH ×3 (05:59→21:08)
[2017-11-18] MEDS: CARAFATE PO SCH ×4 (06:00→20:06)
[2017-11-18] MEDS: NS 1000 ML 1,000 ML IV SCH ×3 (06:00→21:07)
[2017-11-18] MEDS: HumaLOG SC SCH (06:04)
[2017-11-18 06:49] LABS: BASOPHILS # (AUTO) 0.1 X10^3/uL (0.0-0.1); BASOPHILS % (AUTO) 1.4 % (0.2-1.0); EOSINOPHILS # (AUTO) 0.1 x10^3/uL (0.0-0.2); EOSINOPHILS % (AUTO) 1.4 % (0.9-2.9); HEMATOCRIT 30.7 % (42.0-54.0); LYMPHOCYTES # (AUTO) 2.7 X10^3/uL (1.3-2.9); LYMPHOCYTES % (AUTO) 32.4 % (21.0-51.0); MEAN CORPUSCULAR HEMOGLOBIN 26.9 pg (27.0-34.0); MEAN CORPUSCULAR HGB CONC 34.6 g/dL (33.0-35.0); MEAN CORPUSCULAR VOLUME 77.8 fL (80.0-100.0); MEAN PLATELET VOLUME 7.1 fL (7.4-11.0); MONOCYTES # (AUTO) 0.7 x10^3/uL (0.3-0.8); MONOCYTES % (AUTO) 8.6 % (0.0-13.0); NEUTROPHILS # (AUTO) 4.6 x10^3/uL (2.2-4.8); NEUTROPHILS % (AUTO) 56.2 % (42.0-75.0); PLATELET COUNT 454 X10^3/uL (150.0-450.0); RED BLOOD COUNT 3.95 X10^6/uL (4.7-6.0); RED CELL DISTRIBUTION WIDTH 18.5 % (11.6-16.5); WHITE BLOOD COUNT 8.3 X10^3/uL (3.6-10.0)
[2017-11-18 06:52] LABS: HEMOGLOBIN 10.6 g/dL (13.5-18.0)
[2017-11-18] MEDS: DEMEROL INJ IVP PRN ×3 (07:35→20:24)
[2017-11-18] MEDS ORDERED: D50W ABBOJECT SYR ONE (08:22)
[2017-11-18] MEDS ORDERED: D50W ABBOJECT SYR IV ONE (08:23)
[2017-11-18] MEDS: XOPENEX 1.25 MG/3 ML NEBULE NEB SCH ×4 (08:50→21:50)
[2017-11-18] MEDS: MILK OF MAGNESIA PO SCH ×2 (08:52→20:04)
[2017-11-18] MEDS: LOPRESSOR TAB 50 MG PO SCH ×2 (08:53→20:06)
[2017-11-18] MEDS: K-DUR TAB 20 MEQ PO SCH (08:53)
[2017-11-18] MEDS: BENTYL CAP 10 MG PO SCH ×4 (08:53→20:06)
[2017-11-18] MEDS: COZAAR PO SCH (08:53)
[2017-11-18] MEDS: PEPCID 20 MG IV PREMIX* 20 MG/50 ML BAG IV SCH ×2 (08:53→20:23)
[2017-11-18] MEDS: PROTONIX INJ 40 MG VIAL IVP SCH ×2 (08:53→20:04)
--- NOTE | 2017-11-18 14:00 | DR.UPDATE ---
H&P Update History and Physical Update: WAS SEEN IN THE OFFICE TODAY. A H&P WAS COMPLETED PRIOR TO ADMISSION. PATIENT HAS BEEN SEEN AND EXAMINED WITH NO CHANGES NOTED TO H&P. Changes noted: NO Yes with the following:
[2017-11-18] MEDS: HumuLIN R SC PRN (16:36)
[2017-11-18] MEDS ORDERED: NORMODYNE INJ 100 MG VIAL ONE (16:53)
[2017-11-18] MEDS: NORMODYNE INJ 20 MG VIAL IVP PRN ×4 (17:02→18:52)
[2017-11-18] MEDS: PHENERGAN INJ 25 MG IV PRN (17:06)
[2017-11-18] MEDS: COLACE CAP 100 MG PO SCH (20:05)
[2017-11-18] MEDS: ZANAFLEX PO SCH (20:05)
[2017-11-18] MEDS: KLONOPIN TAB 1 MG PO PRN (20:05)
[2017-11-18] MEDS: ELAVIL PO SCH (20:06)
[2017-11-19] MEDS: DEMEROL INJ IVP PRN ×2 (04:06→08:15)
[2017-11-19] MEDS: PHENERGAN INJ 25 MG IV PRN (04:06)
[2017-11-19 05:19] LABS: BASOPHILS # (AUTO) 0.1 X10^3/uL (0.0-0.1); EOSINOPHILS # (AUTO) 0.3 x10^3/uL (0.0-0.2); EOSINOPHILS % (AUTO) 2.6 % (0.9-2.9); HEMATOCRIT 30.3 % (42.0-54.0); HEMOGLOBIN 10.5 g/dL (13.5-18.0); LYMPHOCYTES # (AUTO) 1.9 X10^3/uL (1.3-2.9); LYMPHOCYTES % (AUTO) 19.4 % (21.0-51.0); MEAN CORPUSCULAR HEMOGLOBIN 27.2 pg (27.0-34.0); MEAN CORPUSCULAR HGB CONC 34.5 g/dL (33.0-35.0); MEAN CORPUSCULAR VOLUME 78.9 fL (80.0-100.0); MEAN PLATELET VOLUME 7.4 fL (7.4-11.0); MONOCYTES # (AUTO) 0.6 x10^3/uL (0.3-0.8); MONOCYTES % (AUTO) 6.5 % (0.0-13.0); NEUTROPHILS # (AUTO) 6.9 x10^3/uL (2.2-4.8); NEUTROPHILS % (AUTO) 70.5 % (42.0-75.0); PLATELET COUNT 459 X10^3/uL (150.0-450.0); RED BLOOD COUNT 3.84 X10^6/uL (4.7-6.0); RED CELL DISTRIBUTION WIDTH 18.2 % (11.6-16.5); WHITE BLOOD COUNT 9.8 X10^3/uL (3.6-10.0)
[2017-11-19 05:32] LABS: ALANINE AMINOTRANSFERASE 13 Units/L (12-78); ALBUMIN 2.9 g/dL (3.4-5.0); ALKALINE PHOSPHATASE 95 Units/L (46-116); ASPARTATE AMINO TRANSFERASE 13 Units/L (15-37); BLOOD UREA NITROGEN 15 mg/dL (7-18); CALCIUM 8.8 mg/dL (8.5-10.1); CARBON DIOXIDE 27.8 mmol/L (21-32); CHLORIDE 101 mmol/L (98-107); COR CA(FOR HYPOALB) 9.7 mg/dL (8.5-10.1); COR NA(FOR HYPERGLY) 140 mmol/L (136-145); CREATININE 1.17 mg/dL (0.70-1.30); SODIUM 138 mmol/L (136-145); TOTAL PROTEIN 8.3 g/dL (6.4-8.2); eGFR NON BLACK RACES > 60 (>60)
[2017-11-19] MEDS: NEURONTIN CAP 300 MG PO SCH (05:41)
[2017-11-19] MEDS: CARAFATE PO SCH ×2 (05:42→12:00)
[2017-11-19] MEDS: NS 1000 ML 1,000 ML IV SCH (05:42)
[2017-11-19 08:08] VITALS: BP 162/86
--- NOTE | 2017-11-19 08:09 | PCM.PROG ---
Progress Note - Progress Note for Day of Date: 11/18/17 - Subjective Subjective: WAS ADMITTED FOR INTRACTABLE NAUSEA, VOMITING, AND ABDOMAL PAIN. TODAY, HE IS ALERT AND ORIENTED, LYING IN BED ON MORNING ROUNDS. HE CONTINUES WITH NAUSEA TODAY AND REPORTS GENERALIZED WEAKNESS. HE RECEIVED TWO UNITS OF PACKED RED BLOOD CELLS YESTERDAY. ON EXAMINATION, HEART IS REGULAR IN RATE AND RHYTHM. BILATERAL LUNGS ARE CLEAR TO AUSCULTATION. ABDOMEN IS ROUND , SOFT, AND NOTED WITH MILD, DIFFUSE TENDERNESS TO PALPATION. HYPERACTIVE BOWEL SOUNDS ARE NOTED IN ALL QUADRANTS. HIS VITALS THIS MORNING ARE 97.6-106-20-98%- 160/94. LABS WERE OBTAINED. ABNORMAL LAB VALUES INCLUDE THE FOLLOWING: RBC 3.95 , HGB 10.6, HCT 30.7, PLT COUNT 454, GLUCOSE 260, CALCIUM 7.8, AST 12, ALT <6, ALBUMIN 2.6, GLOBULIN 5.2. BLOOD AND URINE CULTURES ARE PENDING. PRELIMINARY CULTURES REPORT NO GROWTH. STAFF REPORTS THAT PATIENTS BLOOD GLUCOSE FELL TO 38 g/Dl at 1800 yesterday. PATIENT DID RECEIVED A DOSE OF HUMALOG 20UNITS AT LUNCH TIME, ALTHOUGH, PATIENT REPORTS THAT HE DID NOT EAT ANYTHING AT THAT MEAL. WE INSTRUCTED STAFF TO HOLD HUMALOG IF PATIENT WAS NOT EATING. TODAY, WE WILL CONTINUE WITH IV FLUIDS, NAUSEA MEDICATIONS, AND CURRENT PLAN OF CARE. OTHERWISE, WE WILL FOLLOW UP WITH AM LABS AND CONTINUE TO MONITOR PATIENT. - Past Medical Family Social History Past Med/Fam/Surg Hx: No changes since H&P Allergies: Allergies codeine Allergy (Verified 11/14/17 15:19) morphine Allergy (Verified 11/14/17 15:19) - Review of Systems ROS: No change since H&P - Vital Signs and I&O's Vital Signs: Temperature 97.8 F Pulse Rate [Right Brachial] 86 Pulse Rate [Left Brachial] 80 Pulse Rate 96 Respiratory Rate 18 Blood Pressure [Right Arm] 153/85 Blood Pressure [Left Arm] 162/86 Blood Pressure [Left Radial 160/102 Artery] Blood Pressure 142/81 O2 Sat by Pulse Oximetry 99 Intake and Output: Intake & Output 11/16/17 11/17/17 11/18/17 11/19/17 11:59 11:59 11:59 11:59 Intake Total 1979 3910 / 3910 2051 2319 / 2319 Balance 1979 3910 / 3910 2051 / 2318 - Physical Exam Oriented: Normal Eyes: Normal Ear: Normal Nose: Normal Throat: Normal Respiratory: Normal Cardiovascular: Normal : Normal Auscultation: Bowel Sounds: Increased Palpation: Normal Tenderness: Diffuse, Mild. negative: Rebound, Guarding, Rigidity Skin: Normal Musculoskeletal: Normal Psychiatric: Normal Mood Description: Calm Affect: Normal Speech Pattern: Clear, Appropriate - Laboratory and Diagnostics Result Diagrams: 11/19/17 04:38 11/19/17 04:38 Labs: 11/14/17 15:00 Urine,Clean Catch Urine Culture - Final 11/14/17 14:28 Blood Blood Culture - Preliminary 11/14/17 14:19 Blood Blood Culture - Preliminary Laboratory WBC 9.8 X10^3/uL (3.6-10.0) 11/19/17 04:38 RBC 3.84 X10^6/uL (4.7-6.0) L 11/19/17 04:38 Hgb 10.5 g/dL (13.5-18.0) L 11/19/17 04:38 Hct 30.3 % (42.0-54.0) L 11/19/17 04:38 MCV 78.9 fL (80.0-100.0) L 11/19/17 04:38 MCH 27.2 pg (27.0-34.0) 11/19/17 04:38 MCHC 34.5 g/dL (33.0-35.0) 11/19/17 04:38 RDW 18.2 % (11.6-16.5) H 11/19/17 04:38 Plt Count 459 X10^3/uL (150.0-450.0) H 11/19/17 04:38 Plt Count Comment Increased (ADEQUATE) 11/17/17 04:46 MPV 7.4 fL (7.4-11.0) 11/19/17 04:38 Neut % (Auto) 70.5 % (42.0-75.0) 11/19/17 04:38 Lymph % (Auto) 19.4 % (21.0-51.0) L 11/19/17 04:38 [place] % (Auto) 6.5 % (0.0-13.0) 11/19/17 04:38 Eos % (Auto) 2.6 % (0.9-2.9) 11/19/17 04:38 Baso % (Auto) 1.0 % (0.2-1.0) 11/19/17 04:38 Neut # (Auto) 6.9 x10^3/uL (2.2-4.8) H 11/19/17 04:38 Lymph # (Auto) 1.9 X10^3/uL (1.3-2.9) 11/19/17 04:38 [place] # (Auto) 0.6 x10^3/uL (0.3-0.8) 11/19/17 04:38 Eos # (Auto) 0.3 x10^3/uL (0.0-0.2) H 11/19/17 04:38 Baso # (Auto) 0.1 X10^3/uL (0.0-0.1) 11/19/17 04:38 Absolute Nucleated RBC 0.0 /100WBC 11/19/17 04:38 Total Counted 100 11/14/17 14:19 Neutrophils % (Manual) 89 % (39-76) H 11/14/17 14:19 Band Neutrophils % 2 % (0-10) 11/14/17 14:19 Lymphocytes % (Manual) 9 % (13-43) L 11/14/17 14:19 Plt Morphology Comment Normal (NORMAL) 11/17/17 04:46 RBC Morphology Abnormal (NORMAL) 11/17/17 04:46 Hypochromasia 1+ A 11/17/17 04:46 Anisocytosis Slight A 11/17/17 04:46 Microcytosis Slight A 11/17/17 04:46 Sample Site Lra 11/14/17 14:25 ABG pH 7.460 (7.35-7.45) H 11/14/17 14:25 ABG pCO2 33.0 mmHg (35.0-45.0) L 11/14/17 14:25 ABG pO2 110.0 mmHg (80.0-100.0) H 11/14/17 14:25 ABG HCO3 23.5 mmol/L (22-26) 11/14/17 14:25 ABG O2 Saturation 99.0 % (90-100) 11/14/17 14:25 ABG Base Excess 0.2 mmol/L (-2.0-2.0) 11/14/17 14:25 Wang Test Pos 11/14/17 14:25 A-a Gradient -2.0 mmHg 11/14/17 14:25 FiO2 21.000 11/14/17 14:25 Blood Gas Comments Les well cs 11/14/17 14:25 Sodium 138 mmol/L (136-145) 11/19/17 04:38 Corrected Sodium 140 mmol/L (136-145) 11/19/17 04:38 Potassium 4.0 mmol/L (3.5-5.1) 11/19/17 04:38 Chloride 101 mmol/L (98-107) 11/19/17 04:38 Carbon Dioxide 27.8 mmol/L (21-32) 11/19/17 04:38 BUN 15 mg/dL (7-18) 11/19/17 04:38 Creatinine 1.17 mg/dL (0.70-1.30) 11/19/17 04:38 Est GFR (MDRD) Af Amer > 60 (>60) 11/19/17 04:38 Est GFR (MDRD) Non-Af > 60 (>60) 11/19/17 04:38 Glucose 203 mg/dL (65-99) H 11/19/17 04:38 POC Glucose (mg/dL) 200 mg/dL (65-99) H 11/19/17 05:29 Calcium 8.8 mg/dL (8.5-10.1) 11/19/17 04:38 Corrected Calcium 9.7 mg/dL (8.5-10.1) 11/19/17 04:38 Total Bilirubin 0.30 mg/dL (0.2-1.0) 11/19/17 04:38 AST 13 Units/L (15-37) L 11/19/17 04:38 ALT 13 Units/L (12-78) 11/19/17 04:38 Alkaline Phosphatase 95 Units/L (46-116) 11/19/17 04:38 Total Protein 8.3 g/dL (6.4-8.2) H 11/19/17 04:38 Albumin 2.9 g/dL (3.4-5.0) L 11/19/17 04:38 Globulin 5.4 g/dL (2.5-4.5) H 11/19/17 04:38 Albumin/Globulin Ratio 0.5 Ratio (1.1-2.1) L 11/19/17 04:38 Amylase 106 Units/L (25-115) 11/14/17 14:19 Lipase 304 Units/L (73-393) 11/14/17 14:19 Specimen Type Clean catch urine 11/14/17 15:00 Urine Color Yellow (YELLOW) 11/14/17 15:00 Urine Appearance Clear (CLEAR) 11/14/17 15:00 Urine pH 6.5 (5.0 - 8.0) 11/14/17 15:00 Ur Specific [place] 1.010 (1.000-1.030) 11/14/17 15:00 Urine Protein 4+ (NEGATIVE) 11/14/17 15:00 Urine Glucose (UA) 4+ (NEGATIVE) 11/14/17 15:00 Urine Ketones 2+ (NEGATIVE) 11/14/17 15:00 Urine Occult Blood 4+ (NEGATIVE) 11/14/17 15:00 Urine Nitrite Negative (NEGATIVE) 11/14/17 15:00 Urine Bilirubin Negative (NEGATIVE) 11/14/17 15:00 Urine Urobilinogen Normal (NORMAL) 11/14/17 15:00 Ur Leukocyte Esterase Negative (NEGATIVE) 11/14/17 15:00 Urine RBC 30-50 /HPF (NONE SEEN) 11/14/17 15:00 Urine WBC 3-5 /HPF (NONE SEEN) 11/14/17 15:00 Ur Squamous Epith Cells Rare /HPF (NEGATIVE) 11/14/17 15:00 Amorphous Sediment 1+ /HPF (NEGATIVE) 11/14/17 15:00 Urine Bacteria Negative /HPF (NEGATIVE) 11/14/17 15:00 Urine Mucus Moderate /HPF (NEGATIVE) 11/14/17 15:00 Ur Culture Indicated? No/not indicated 11/14/17 15:00 Blood Type O POSITIVE 11/17/17 08:36 Antibody Screen Negative 11/17/17 08:36 Crossmatch See Detail 11/17/17 08:36 - Plan (1) Intractable nausea and vomiting Status: Acute Qualifiers: Vomiting type: unspecified Qualified Code(s): R11.2 - Nausea with vomiting , unspecified Plan: PEPCID IV, PROTONIX IV, ZOFRAN COCKTAIL, PHENERGAN IV, COMPAZINE, CARAFATE , CONTINUE TO MONITOR (2) Abdominal pain Status: Acute Qualifiers: Abdominal location: generalized (3) Anemia Status: Acute Qualifiers: Anemia type: iron deficiency Iron deficiency anemia type: unspecified iron deficiency Qualified Code(s): D50.9 - Iron deficiency anemia, unspecified Plan: CONTINUE TO MONITOR (4) Diabetic gastroparesis Status: Acute (5) Diabetes mellitus type 1 Status: Chronic Qualifiers: Diabetes mellitus complication status: with hyperglycemia Qualified Code(s) : E10.65 - Type 1 diabetes mellitus with hyperglycemia (6) Hypertension Status: Chronic Qualifiers: Hypertension type: essential hypertension
[2017-11-19] MEDS: BENTYL CAP 10 MG PO SCH ×2 (08:13→13:15)
[2017-11-19] MEDS: K-DUR TAB 20 MEQ PO SCH (08:13)
[2017-11-19] MEDS: COZAAR PO SCH (08:13)
[2017-11-19] MEDS: PEPCID 20 MG IV PREMIX* 20 MG/50 ML BAG IV SCH (08:14)
[2017-11-19] MEDS: PROTONIX INJ 40 MG VIAL IVP SCH (08:14)
[2017-11-19] MEDS: LOPRESSOR TAB 50 MG PO SCH (08:14)
[2017-11-19] MEDS: MILK OF MAGNESIA PO SCH (08:15)
[2017-11-19] MEDS: XOPENEX 1.25 MG/3 ML NEBULE NEB SCH ×2 (09:08→12:02)
[2017-11-19] MEDS: HumuLIN R SC PRN (12:00)
--- NOTE | 2017-12-09 00:40 | DR.CARTERD ---
- Discharge Summary for: Discharge Summary for Date of:: 11/19/17 - Admission Date Date of Admission: 11/14/17 - Admission Diagnoses Admission Diagnosis: (1) Intractable nausea and vomiting (2) Abdominal pain (3) Anemia(4) Diabetic gastroparesis (5) Diabetes mellitus type 1 (6) Hypertension - Discharge Date Discharge Date: 11/19/17 - Discharge Diagnoses Discharge Diagnosis: (1) Intractable nausea and vomiting (2) Abdominal pain (3) Anemia (4) Diabetic gastroparesis (5) Diabetes mellitus type 1 (6) Hypertension - Hospital Course Hospital Course: Day one, Mr. Mayes presented to the [facility] as a direct admit from our office. He reported complaints of nausea, vomiting, and abdominal pain. He rated his abdominal pain at a 10 on a scale of 0-10 with [address] being [address] worse pain[address] Dr. Gramajo was consulted after several attempts for IV access without success. Dr. Gramajo inserted a triple lumen central line into the right subclavian. Patient was admitted as observation status and started on Demerol 50 MG IVP Q 4H PRN for pain control and Phenergan 25 MG IV Q6H PRN along with a Zofran cocktail IV Q8H PRN for nausea/vomiting. Abnormal Labs: WBC 12.5, RBC 3.92, HGB 9.8, HCT 29.6, MCV 75.5, MCH 25.0, RDW 17.0, Plt Count 698, MPV 7.1, Sodium 135, CHLORIDE 95, BUN 19, Glucose 292, Calcium 10.5, Alkaline Phosphatase 118, Total Protein less than 12.0. Globulin7.5. ABG: PH 7.460, Pco2 33.0, Po2 110. Urinalysis: Protein 4+. Glucose 4+, Ketones 2+, Occult Blood 4+, RBC 30-50, WBC 3-5, Amorphous Sediment 1+, Mucous Moderate, Culture obtained. Blood cultures obtained. Chest X-Ray: Near complete clearing of the right lung base with complete clearing of the left lung base. A right- sided central line is been placed. No evidence of pneumothorax is noted. The line crosses the midline and the tip is in the left subclavian vein. Day two, Patient continued to complain of abdominal pain, nausea and vomiting. He had received Demerol 50 MG IVP times 5 doses over the prior 24 hours for pain and continued to complain of pain. Patients blood pressure remained elevated throughout the night and the patient was given 3 doses of Labetalol 10mg IV with only minimal decrease in blood pressure. On auscultation of abdominal quadrants patient noted with hyperactive bowel sounds throughout. We continued treatment and monitored. Day three, He continued with nausea and abdominal pain. Abdomen was round, soft , and noted with mild, diffuse tenderness to palpation. Hyperactive bowel sounds were noted in all quadrants. Vitals were: 97.9-566-68-100%-154/80. Abnormal labs included: RBC 2.97, HGB 7.6, HCT 22.4, Glucose 176, AST 11, Tot protein 8.4, Albumin 2.8. We continued with IV fluids and nausea medications. We started Bentyl 20mg po qid. Day four, Patient continued to report abdominal pain with nausea and vomiting. Patient noted to have received Demerol 50mg IV x4 and Phenergan 25mg IV x1 in the prior 24 hours with reports of minimal improvement in symptoms. Abdomen noted with diffuse tenderness on palpation of all quadrants. On auscultation of abdominal quadrants patient noted with continued hyperactive bowel sounds throughout. Labs obtained this morning revealed a decrease in hemoglobin from 7.6 to 7.0. We administered two units of PRBCs. Abnormal Labs: RBC 2.71, Hgb 7.0, Hct 20.3, MCV 75.0, MCH 25.8, RDW 16.9, MPV 6.7, Glucose 39, Calcium 7.9, AST 10, ALT 10, Albumin 2.6, Globulin 5.0, A/G Ratio 0.5. Day five, Patient continued with nausea and reported generalized weakness. He received two units of packed red blood cells the day before and tolerated well. Vitals were 97.6-106-20-98%-160/94. Abnormal labs included: RBC 3.95, HGB 10.6, HCT 30.7, PLT count 454, Glucose 260, Calcium 7.8, AST 12, ALT <6, Albumin 2.6. Staff reported that patient's blood glucose fell to 38g/dl at 1800 the day prior. patient did receive a dose of Humalog 20units at lunch time; although, patient reported that he did not eat anything at that meal. We instructed staff to hold Humalog if patient was not eating. We continued with treatment and monitored glucose. Day six, patient reported he felt better. Patient was sitting up and was doing better. No distress was noted. Final blood and urine cultures reported no growth. Patient denied nausea, vomiting, or abdominal pain. Vital signs stable. Labs wnl. We planned for discharge. Instructions for medications and follow up were discussed with patient and family, both voiced understanding. Patient discharged home in stable condition with family. - Discharge Medications Discharge Medications: Home Medication List amitriptyline 1 tab PO HS 11/14/17 [History] gabapentin [Neurontin] 1 tab PO TID 11/14/17 [History] losartan 100 mg PO DAILY 11/14/17 [History] metoprolol tartrate [Lopressor] 1 tab PO BID 11/14/17 [History] potassium chloride [Klor-Con] 1 tab PO DAILY 11/14/17 [History] sucralfate 1 tab PO ACHS 11/14/17 [History] tizanidine 1 tab PO HS PRN 11/14/17 [History] promethazine 25 mg PO Q6H PRN #30 tab 11/19/17 [Rx] Prescriptions: promethazine Williams Worthington clonazepam 1 tab PO HS PRN 07/11/16 pantoprazole 1 tab PO BID 07/11/16 famotidine [Pepcid] 40 mg PO BID #60 04/18/17 prochlorperazine maleate 10 mg PO TID PRN #12 tab 07/30/17 clonidine [Roavlvmw-UPN-7] 1 patch TOPICAL Q7D 12/02/17 insulin glargine [Toujeo Max SoloStar] 50 unit SUB-Q HS 12/05/17 - Discharge Disposition Discharge Disposition: Patient is to follow up in our office in one week.
== END 2017-11-19 13:40 | disposition home or self-care (01) | DRG 392 ==
LOC: MED/SURG → OBSVTOIN 13:17
PROVIDERS: ADMIT Internal Medicine; ATTEND Internal Medicine
DX: D50.8 Other iron deficiency anemias; R10.84 Generalized abdominal pain; E10.65 Type 1 diabetes mellitus with hyperglycemia; R11.2 Nausea with vomiting, unspecified; I10 Essential (primary) hypertension; K31.84 Gastroparesis; E10.43 Type 1 diabetes mellitus with diabetic autonomic (poly)neuropathy; E86.0 Dehydration; I87.2 Venous insufficiency (chronic) (peripheral)
CPT/HCPCS: 36415; 36430; 36556; 36600; 71010; 71045; 76000; 80053; 81001; 82150; 82803; 82947; 83690; 85025; 86850; 86900; 86901; 86922; 87040; 87086; 93005; 94640; 94669; 94760; A4216; A4222; C9113; P9016; S0028; J1200; J1642; J1815; J1817; J2060; J2175; J2405; J2550; J3490; J7030; J7040; J7050

== ENCOUNTER 2017-12-19 20:55 | Inpatient (IN) ==
[2017-12-19] MEDS ORDERED: NS 1000 ML 1,000 ML ONE (21:05)
[2017-12-19] MEDS ORDERED: ZOFRAN INJ 4 MG VIAL IVP ONE (21:05)
--- NOTE | 2017-12-19 21:06 | DR.GENAD ---
HPI - PCP Primary Care Physician: SAVANNAH - Complaint/Symptoms Chief Complaint Doctors Comments: Patient is complaining of persistent vomiting with pain in the epigastric area for the past 24 hours getting worst tonight. States he tried to drink some Glucerna but it came back up. States he is a patient of Dr. Worthington and is taking Toujeo or Lesmir 40 units at bedtime with Humulog sliding scale insulin. He denies cold, cough, chest pain but has had SOB. He denies gelacio or hematuria. states he has had multiple episodes of abdominal pain with multiple hospital admissions for the same thing. Chief Complaint:: PT STATES" SAME MILTON THROWING UP AND PAIN IN MY STOMACH" - Nurses notes reviewed Nurses Notes Review: Yes - Source History Provided: Patient - Mode of Arrival Mode of Arrival: Ambulatory - Timing Onset of Chief Complaint: 12/26/17 Came on: Gradually - Duration Duration: Constant How lon Duration: Days - Location Location: epigastric pain - Severity Severity: Moderate, Severe - Modifying Factors Worsens:: eating Improves:: nothing PMH - PMH Past Medical History: Yes Past Medical History: Anxiety, Diabetes, Dyslipidemia, GERD, Hypertension Past Surgical History: Yes Surgical History: Cholecystectomy, Ortho Surgery - Family History History of Family Medical Conditions: Yes Family Medical History: Diabetes Mellitus, Hypertension - Social History Does any household member use tobacco: No Alcohol Use: None Do you use any recreational Drugs:: No Lives With: Spouse - infectious screening In the last 2 months have you had wt loss of >10#?: NO Have you had fever, night sweats or hemotysis?: No Have you traveled outside the country in the last 6 months?: No Isolation: Standard ROS - Review of Systems Constitutional: No Symptoms Reported, Weakness, Loss of Appetite. negative: See HPI, Chills, Diaphoresis, Fever, Malaise, Irritable, Fatigue, Other Eyes: No Symptoms Reported ENTM: No Symptoms Reported Respiratoy: No Symptoms Reported, Short of Breath Cardiovascular: No Symptoms Reported. negative: See HPI, Chest Pain, Edema, Palpitations, Syncope, Cyanosis, Skin Mottling, Other Gastrointestinal/Abdominal: No Symptoms Reported, Abdominal Pain, Nausea, Vomiting Genitourinary: No Symptoms Reported. negative: See HPI, Discharge, Dysuria, Frequency, Hematuria, Pain, Bleeding, Other Neurological: No Symptoms Reported. negative: See HPI, Anxiety, Depressed, Emotional Problems, Headache, Numbness, Paresthesia, Pre-existing Deficit, Seizure, Tingling, Tremors, Weakness, Dizziness, Problems Walking, Speech Problem, Other Musculoskeletal: No Symptoms Reported Integumentary: No Symptoms Reported. negative: See HPI, Change in Color, Change in Hair/Nails, Dryness, Lesions, Lumps, Rash, Itching, Wound, Bruises, Juandice, Other Hematologic/Lymphatic: No Symptoms Reported Endocrine: No Symptoms Reported, Excessive Sweating Psychiatric: No Symptoms Reported. negative: See HPI, Anxiety, Depression, Hallucinations, Excessive crying, Suicidal, Other PE - General Limitations: No Limitations General Appearance: Alert, In Distress (moderate) - Head Head Exam: Normal Inspection, Atraumatic, Normocephalic - Eyes Eye exam: Normal Appearance, PERRL, EOMI. negative: Scleral Icterus, Conjunctival Injection, Nystagmus, Miosis, Mydrasis, Periorbital Swelling, Periorbital Tenderness, Other - ENT ENT Exam: Normal Exam, Normal Oropharynx, Normal External Ear Exam, Mucous Membranes Moist, TM's Normal Bilaterally External Ear Exam: Normal External Inspection TM/Canal Exam: Bilateral Normal Nose Exam: Normal Nose Exam Mouth Exam: Normal Inspection Throat Exam: Normal Inspection. negative: Tonsillar Erythema, Tonsillomegaly, Tonsillar Exudate, R Peritonsillar Mass, L Peritonsillar Mass, Muffled Voice, Other - Neck Neck Exam: Normal Inspection, Full ROM, Trachea Midline - Chest Chest Inspection: Normal Inspection, Symmetric Chest Wall Rise. negative: Tenderness, Rash, Abscess, Other - Respiratory Respiratory Exam: Normal Lung Sounds Bilat Respiratory Exam: Bilateral Clear to Auscultation - Cardiovascular Cardiovascular Exam: Regular Rate, Normal Rhythm, Normal Heart Sounds - Abdominal Exam Abdominal Exam: Normal Inspection, Normal Bowel Sounds, Soft, Tenderness ( epigastric tenderness), Guarding Abdominal Tenderness: Epigastrium, Moderate, Severe - Extremities Extremities Exam: Normal Inspection, Full ROM, Normal Capillary Refill. negative: Tenderness, Edema, Joint Swelling, Calf Tenderness, Other - Back Back Exam: Normal Inspection, Full ROM, Tenderness. negative: (R) CVA Tenderness, (L) CVA Tenderness, Muscle Spasm, Paraspinal Tenderness, Vertebral Tenderness, Rashes, (R) Sciatic Notch Tenderness, (L) Sciatic Notch Tendern, (R ) Straight Leg Raise, (L) Straight Leg Raise, Other - Neurologic Neurological Exam: Alert, Oriented X3, CN II-XII Intact, Normal Gait, Reflexes Normal - Psychiatric Psychiatric Exam: Normal Affect, Normal Mood - Skin Skin Exam: Warm, Dry, Intact, Normal Color. negative: Rash, Cyanosis, Diaphoresis, Erythema, Pallor, Mottled, Other - Vital Signs Vitals: Temperature 97.6 F Pulse Rate [Left Brachial] 125 Pulse Rate 125 Respiratory Rate 20 Blood Pressure [Right Arm] 198/108 Blood Pressure [Left Arm] 119/68 Blood Pressure [Left Radial 160/102 Artery] Blood Pressure 198/108 O2 Sat by Pulse Oximetry 98 ROR - Labs Reviewed Laboratory Results Reviewed?: Yes (all labs and x-ray results reviewed and discussed with patient) Result Diagrams: 12/20/17 05:40 12/20/17 05:40 - XRAY XRAY Interpreted by: Radiologist (CT abdomen and pelvis: No acute inflammatory process. Increased central lucency pleural based opacity right lower lobe.) - Labs Reviewed Laboratory: WBC 8.7 X10^3/uL (3.6-10.0) 12/20/17 05:40 RBC 4.41 X10^6/uL (4.7-6.0) L 12/20/17 05:40 Hgb 12.0 g/dL (13.5-18.0) L 12/20/17 05:40 Hct 35.2 % (42.0-54.0) L 12/20/17 05:40 MCV 80.0 fL (80.0-100.0) 12/20/17 05:40 MCH 27.2 pg (27.0-34.0) 12/20/17 05:40 MCHC 34.1 g/dL (33.0-35.0) 12/20/17 05:40 RDW 18.1 % (11.6-16.5) H 12/20/17 05:40 Plt Count 230 X10^3/uL (150.0-450.0) 12/20/17 05:40 Plt Count Comment Adequate (ADEQUATE) 12/19/17 21:26 MPV 9.9 fL (7.4-11.0) 12/20/17 05:40 Neut % (Auto) 78.4 % (42.0-75.0) H 12/20/17 05:40 Lymph % (Auto) 14.8 % (21.0-51.0) L 12/20/17 05:40 [place] % (Auto) 5.9 % (0.0-13.0) 12/20/17 05:40 Eos % (Auto) 0.0 % (0.9-2.9) L 12/20/17 05:40 Baso % (Auto) 0.9 % (0.2-1.0) 12/20/17 05:40 Neut # (Auto) 6.9 x10^3/uL (2.2-4.8) H 12/20/17 05:40 Lymph # (Auto) 1.3 X10^3/uL (1.3-2.9) 12/20/17 05:40 [place] # (Auto) 0.5 x10^3/uL (0.3-0.8) 12/20/17 05:40 Eos # (Auto) 0.0 x10^3/uL (0.0-0.2) 12/20/17 05:40 Baso # (Auto) 0.1 X10^3/uL (0.0-0.1) 12/20/17 05:40 Absolute Nucleated RBC 0.0 /100WBC 12/20/17 05:40 Total Counted 100 12/19/17 21:26 Neutrophils % (Manual) 77 % (39-76) H 12/19/17 21:26 Lymphocytes % (Manual) 13 % (13-43) 12/19/17 21:26 Monocytes % (Manual) 8 % (4-9) 12/19/17 21:26 Atypical Lymphocytes 2 12/19/17 21:26 Plt Morphology Comment Normal (NORMAL) 12/19/17 21:26 RBC Morphology Abnormal (NORMAL) 12/19/17 21:26 Anisocytosis 1+ A 12/19/17 21:26 Sample Site Lbra 12/20/17 00:27 ABG pH 7.440 (7.35-7.45) 12/20/17 00:27 ABG pCO2 42.0 mmHg (35.0-45.0) 12/20/17 00:27 ABG pO2 82.0 mmHg (80.0-100.0) 12/20/17 00:27 ABG HCO3 28.5 mmol/L (22-26) H 12/20/17 00:27 ABG O2 Saturation 96.0 % (90-100) 12/20/17 00:27 ABG Base Excess 3.9 mmol/L (-2.0-2.0) H 12/20/17 00:27 Wang Test Na 12/20/17 00:27 A-a Gradient 15.0 mmHg 12/20/17 00:27 FiO2 21.000 12/20/17 00:27 Blood Gas Comments Les abg well-mtf 12/20/17 00:27 Sodium 136 mmol/L (136-145) 12/20/17 05:40 Corrected Sodium 141 mmol/L (136-145) 12/20/17 05:40 Potassium 3.8 mmol/L (3.5-5.1) 12/20/17 05:40 Chloride 97 mmol/L (98-107) L 12/20/17 05:40 Carbon Dioxide 25.4 mmol/L (21-32) 12/20/17 05:40 BUN 27 mg/dL (7-18) H 12/20/17 05:40 Creatinine 1.75 mg/dL (0.70-1.30) H 12/20/17 05:40 Est GFR (MDRD) Af Amer 54 (>60) L 12/20/17 05:40 Est GFR (MDRD) Non-Af 45 (>60) L 12/20/17 05:40 Glucose 300 mg/dL (65-99) H 12/20/17 05:40 POC Glucose (mg/dL) 264 mg/dL (65-99) H 12/20/17 20:32 Calcium 9.3 mg/dL (8.5-10.1) 12/20/17 05:40 Corrected Calcium TNP 12/19/17 21:26 Total Bilirubin 0.70 mg/dL (0.2-1.0) 12/19/17 21:26 AST 16 Units/L (15-37) 12/19/17 21:26 ALT 22 Units/L (12-78) 12/19/17 21:26 Alkaline Phosphatase 87 Units/L (46-116) 12/19/17 21:26 Total Protein 8.7 g/dL (6.4-8.2) H 12/19/17 21: Albumin 4.2 g/dL (3.4-5.0) 12/19/17 21:26 Globulin 4.5 g/dL (2.5-4.5) 12/19/17 21:26 Albumin/Globulin Ratio 0.9 Ratio (1.1-2.1) L 12/19/17 21: Amylase 88 Units/L (25-115) 12/19/17 21: Lipase 283 Units/L (73-393) 12/19/17 21:26 Specimen Type Clean catch urine 12/20/17 01:40 Urine Color Yellow (YELLOW) 12/20/17 01:40 Urine Appearance Slightly hazy (CLEAR) 12/20/17 01:40 Urine pH 6.0 (5.0 - 8.0) 12/20/17 01:40 Ur Specific [place] 1.015 (1.000-1.030) 12/20/17 01:40 Urine Protein 3+ (NEGATIVE) 12/20/17 01:40 Urine Glucose (UA) 4+ (NEGATIVE) 12/20/17 01:40 Urine Ketones 1+ (NEGATIVE) 12/20/17 01:40 Urine Occult Blood 3+ (NEGATIVE) 12/20/17 01:40 Urine Nitrite Negative (NEGATIVE) 12/20/17 01:40 Urine Bilirubin Negative (NEGATIVE) 12/20/17 01:40 Urine Urobilinogen Normal (NORMAL) 12/20/17 01:40 Ur Leukocyte Esterase Negative (NEGATIVE) 12/20/17 01:40 Urine RBC 3-5 /HPF (NONE SEEN) 12/20/17 01:40 Urine WBC None seen /HPF (NONE SEEN) 12/20/17 01:40 Ur Squamous Epith Cells Negative /HPF (NEGATIVE) 12/20/17 01:40 Urine Bacteria Negative /HPF (NEGATIVE) 12/20/17 01:40 Hyaline Casts Rare /LPF (NEGATIVE) 12/20/17 01:40 Urine Mucus Rare /HPF (NEGATIVE) 12/20/17 01:40 Ur Culture Indicated? No/not indicated 12/20/17 01:40 Acetone, Semi-Quant Negative (NEGATIVE) 12/19/17 21:26 H. pylori IgG Antibody Negative (NEGATIVE) 12/19/17 21:26 - Diagnosis Discharge Problem: Dehydration, Nausea and vomiting in adult patient, Diabetic gastroparesis, Intractable nausea and vomiting, Pulmonary lesion, right Chronic kidney disease Qualifiers: Chronic kidney disease stage: stage 3 (moderate) Qualified Code(s): N18.3 - Chronic kidney disease, stage 3 (moderate) Abdominal pain Qualifiers: Abdominal location: generalized Qualified Code(s): R10.84 - Generalized abdominal pain - Discharge Plan Disposition: 09 ADMITTED INPATIENT Condition: Stable
[2017-12-19] MEDS ORDERED: PROTONIX INJ 40 MG VIAL IVP ONE (21:12)
[2017-12-19] MEDS ORDERED: NS 1000 ML 1,000 ML IV ONE (21:12)
[2017-12-19] MEDS ORDERED: ZOFRAN INJ 4 MG VIAL ONE (21:13)
[2017-12-19] MEDS ORDERED: REGLAN INJ 10 MG VIAL IVP STA (21:15)
[2017-12-19] MEDS ORDERED: PROTONIX INJ 40 MG VIAL ONE (21:15)
[2017-12-19] MEDS ORDERED: REGLAN INJ 10 MG VIAL ONE (21:21)
[2017-12-19 21:34] LABS: BASOPHILS # (AUTO) 0.1 X10^3/uL (0.0-0.1); BASOPHILS % (AUTO) 1.1 % (0.2-1.0); EOSINOPHILS % (AUTO) 0.1 % (0.9-2.9); HEMATOCRIT 35.5 % (42.0-54.0); HEMOGLOBIN 11.9 g/dL (13.5-18.0); LYMPHOCYTES # (AUTO) 1.9 X10^3/uL (1.3-2.9); LYMPHOCYTES % (AUTO) 23.9 % (21.0-51.0); MEAN CORPUSCULAR HEMOGLOBIN 26.8 pg (27.0-34.0); MEAN CORPUSCULAR HGB CONC 33.4 g/dL (33.0-35.0); MEAN CORPUSCULAR VOLUME 80.1 fL (80.0-100.0); MEAN PLATELET VOLUME 8.9 fL (7.4-11.0); MONOCYTES # (AUTO) 0.7 x10^3/uL (0.3-0.8); MONOCYTES % (AUTO) 9.1 % (0.0-13.0); NEUTROPHILS # (AUTO) 5.2 x10^3/uL (2.2-4.8); NEUTROPHILS % (AUTO) 65.8 % (42.0-75.0); PLATELET COUNT 251 X10^3/uL (150.0-450.0); RED BLOOD COUNT 4.42 X10^6/uL (4.7-6.0); RED CELL DISTRIBUTION WIDTH 18.7 % (11.6-16.5); WHITE BLOOD COUNT 7.9 X10^3/uL (3.6-10.0)
[2017-12-19 21:45] LABS: PLATELET MORPHOLOGY COMMENT NORMAL (NORMAL)
[2017-12-19 21:46] LABS: ANISOCYTOSIS 1+
[2017-12-19 21:49] LABS: ALANINE AMINOTRANSFERASE 22 Units/L (12-78); ALBUMIN 4.2 g/dL (3.4-5.0); ALKALINE PHOSPHATASE 87 Units/L (46-116); AMYLASE 88 Units/L (25-115); ASPARTATE AMINO TRANSFERASE 16 Units/L (15-37); BLOOD UREA NITROGEN 35 mg/dL (7-18); CALCIUM 9.7 mg/dL (8.5-10.1); CARBON DIOXIDE 27.1 mmol/L (21-32); CHLORIDE 95 mmol/L (98-107); COR NA(FOR HYPERGLY) 139 mmol/L (136-145); CREATININE 3.02 mg/dL (0.70-1.30); SODIUM 134 mmol/L (136-145); TOTAL PROTEIN 8.7 g/dL (6.4-8.2); eGFR NON BLACK RACES 24 (>60)
[2017-12-19 22:02] LABS: LIPASE 283 Units/L (73-393)
--- NOTE | 2017-12-19 22:11 | CT ---
CT abdomen and pelvis without contrast Indication: Epigastric pain Comparison: 12/02/2017 Technique: Multiple axial images of the abdomen and pelvis were obtained from the lung bases to the pubic symphy sis without the administration of IV contrast. Findings: The peripheral consolidation within the right lower lobe demonstrates slight increased central lucenc y and air on today's examination. There is adjacent mild pleural parenchymal thickening/scarring. N o other airspace opacity identified within either lung base. Given limitations of a noncontrast exam ination no focal hepatic lesion is identified. Prior cholecystectomy is noted. The spleen, pancreas is good removed or it will. The kidney demonstrates evidence of nephrolithiasis, hydronephrosis or mass. Upper GI tract demonstrates no evidence of mass or obstruction. Previous appetite the is note d. Urinary bladder is unremarkable. Prostate gland is normal. The rectum and colon are within norm al limits. Abdominal aorta is normal in caliber. No adenopathy or free fluid within the abdomen or pelvis. Review of bone windows demonstrates no acute osseous abnormality. Impression: 1.No acute inflammatory process within the abdomen or pelvis identified given limitations of a noncon trast examination. 2. Increased central lucency within the pleural-based opacity within the right lower lobe likely rep resents resolving pulmonary infarct; however, follow-up chest CT with contrast in 3 months is recomme nded to ensure resolution and exclude underlying cavitary lesion or organizing pneumonia. Reported By:
[2017-12-20 00:38] LABS: ABG BASE EXCESS 3.9 mmol/L (-2.0-2.0); ABG HCO3 28.5 mmol/L (22-26)
[2017-12-20] MEDS ORDERED: TORADOL 30 MG VIAL IVP ONE (00:53)
[2017-12-20] MEDS ORDERED: ZOFRAN INJ 4 MG VIAL IVP ONE (00:54)
[2017-12-20] MEDS ORDERED: ZOFRAN INJ 4 MG VIAL ONE (00:58)
[2017-12-20] MEDS ORDERED: TORADOL 30 MG VIAL ONE (00:58)
[2017-12-20] MEDS ORDERED: DEMEROL INJ ONE (01:26)
[2017-12-20] MEDS ORDERED: DEMEROL INJ IVP ONE (01:28)
[2017-12-20 01:57] LABS: BILIRUBIN,URINE NEGATIVE (NEGATIVE); BLOOD/HEMOGLOBIN,URINE 3+ (NEGATIVE); GLUCOSE, URINE 4+ (NEGATIVE); KETONES,URINE 1+ (NEGATIVE); LEUKOCYTE ESTERASE ,URINE NEGATIVE (NEGATIVE); NITRITES,URINE NEGATIVE (NEGATIVE); PROTEIN,URINE 3+ (NEGATIVE); UROBILINOGEN,URINE NORMAL (NORMAL)
[2017-12-20] MEDS ORDERED: CATAPRES TAB 0.2 MG PO ONE (02:02)
[2017-12-20 02:04] LABS: APPEARANCE,URINE SLIGHTLY HAZY (CLEAR); COLOR,URINE YELLOW (YELLOW)
[2017-12-20] MEDS ORDERED: CATAPRES TAB 0.2 MG ONE (02:04)
[2017-12-20 02:10] LABS: BACTERIA,URINE NEGATIVE /HPF (NEGATIVE); SQUAMOUS EPITHELIAL CELL,UR NEGATIVE /HPF (NEGATIVE)
[2017-12-20 02:12] LABS: HYALINE CASTS, URINE RARE /LPF (NEGATIVE); MUCUS,URINE RARE /HPF (NEGATIVE)
[2017-12-20] MEDS: PHENERGAN INJ 25 MG IVP PRN ×3 (03:24→16:21)
[2017-12-20] MEDS: NS 1000 ML 1,000 ML IV SCH ×4 (03:24→20:23)
[2017-12-20] MEDS: HumuLIN R SUBCUT PRN ×2 (06:24→17:00)
[2017-12-20 06:36] LABS: CALCIUM 9.3 mg/dL (8.5-10.1); CARBON DIOXIDE 25.4 mmol/L (21-32); CREATININE 1.75 mg/dL (0.70-1.30)
[2017-12-20 06:45] LABS: BASOPHILS # (AUTO) 0.1 X10^3/uL (0.0-0.1); BASOPHILS % (AUTO) 0.9 % (0.2-1.0); HEMATOCRIT 35.2 % (42.0-54.0); LYMPHOCYTES # (AUTO) 1.3 X10^3/uL (1.3-2.9); LYMPHOCYTES % (AUTO) 14.8 % (21.0-51.0); MEAN CORPUSCULAR HEMOGLOBIN 27.2 pg (27.0-34.0); MEAN CORPUSCULAR HGB CONC 34.1 g/dL (33.0-35.0); MEAN PLATELET VOLUME 9.9 fL (7.4-11.0); MONOCYTES # (AUTO) 0.5 x10^3/uL (0.3-0.8); MONOCYTES % (AUTO) 5.9 % (0.0-13.0); NEUTROPHILS # (AUTO) 6.9 x10^3/uL (2.2-4.8); NEUTROPHILS % (AUTO) 78.4 % (42.0-75.0); PLATELET COUNT 230 X10^3/uL (150.0-450.0); RED BLOOD COUNT 4.41 X10^6/uL (4.7-6.0); RED CELL DISTRIBUTION WIDTH 18.1 % (11.6-16.5); WHITE BLOOD COUNT 8.7 X10^3/uL (3.6-10.0)
[2017-12-20] MEDS ORDERED: ZANAFLEX PO PRN (09:21)
[2017-12-20] MEDS ORDERED: COMPAZINE PO PRN (09:21)
[2017-12-20] MEDS: DEMEROL INJ IVP PRN ×3 (09:25→20:15)
[2017-12-20] MEDS ORDERED: CATAPRES-TTS-3 TD SCH (10:00)
[2017-12-20] MEDS: K-DUR TAB 20 MEQ PO SCH (10:45)
[2017-12-20] MEDS: PROTONIX TAB 40 MG PO SCH ×2 (10:45→20:14)
[2017-12-20] MEDS: NEURONTIN CAP 300 MG PO SCH ×3 (10:46→21:21)
[2017-12-20] MEDS: CARAFATE PO SCH ×3 (10:46→20:14)
[2017-12-20] MEDS: LOVENOX INJ 30 MG SYR SC SCH (10:46)
[2017-12-20] MEDS: COZAAR PO SCH (10:47)
[2017-12-20] MEDS: LOPRESSOR TAB 50 MG PO SCH ×2 (10:47→20:14)
[2017-12-20] MEDS: SNACK - Diabetic Appropriate PO SCH (20:13)
[2017-12-20] MEDS: ELAVIL PO SCH (20:14)
[2017-12-20] MEDS: INSULIN GLARGINE 50 UNIT SUB-Q SCH (21:20)
--- NOTE | 2017-12-20 23:32 | DR.UPDATE ---
H&P Update History and Physical Update: H&P WAS COMPLETED WITH HIS LAST ADMISSION ON 12/02/17. HE RETURNED TO THE EMERGENCY ROOM TODAY WITH REPORTS OF PERSISTENT NAUSEA, VOMITING, AND ABDOMINAL PAIN. PATIENT HAS A HISTORY OF DIABETES AND DIABETIC GASTROPARESIS. HE HAS BEEN INSTRUCTED TO ONLY INTAKE LIQUIDS, HOWEVER, HE IS GENERALLY NON- COMPLIANT. HE REPORTS EPIGASTRIC PAIN THAT STARTED APPROXIMATELY ONE DAY AGO. ON ARRIVAL, VITALS WERE 97.6-125-20-98%-198/108. ABNORMAL LAB VALUES INCLUDE THE FOLLOWING: RBC 4.42, HGB 11.9, HCT 35.5, SODIUM 134, CHLORIDE 95, BUN 35, CREATININE 3.02, GLUCOSE 302, TOTAL PROTEIN 8.7. ABG REVEALED PH 7.440, PC02 42.0, P02 82.0, HC03 28.5, 02 SATURATION 96.0, BASE EXCESS 3.9. SERUM ACETONES NEGATIVE. ABDOMEN/PELVIS CT WITHOUT CONTRAST REVEALED: No acute inflammatory process within the abdomen or pelvis identified given limitations of a noncontrast examination. Increased central lucency within the pleural-based opacity within the right lower lobe likely represents resolving pulmonary infarct; however, follow-up chest CT with contrast in 3 months is recommended to ensure resolution and exclude underlying cavitary lesion or organizing pneumonia. HE WAS ADMITTED FOR FURTHER EVALUATION AND TREATMENT OF DEHYDRATION, PERSISTENT N/V, DIABETES, AND DIABETIC GASTROPARESIS. HE WAS STARTED ON NORMAL SALINE AT 125ML/HR, PEPCID 20MG IV BID, ZOFRAN 4MG IV Q4H PRN, PHENERGAN 2.5MG IV Q6H PRN, DEMEROL 25MG IV Q4H PRN, AND HUMULIN R SLIDING SCALE. WE PLAN TO FOLLOW UP WITH AM LABS AND CONTINUE TO MONITOR PATIENT.
[2017-12-21] MEDS: DEMEROL INJ IVP PRN ×5 (00:51→22:01)
[2017-12-21] MEDS: NS 1000 ML 1,000 ML IV SCH ×4 (04:08→18:36)
[2017-12-21] MEDS: PEPCID 20 MG IV PREMIX* 20 MG/50 ML BAG IV PRN (04:09)
[2017-12-21] MEDS: NEURONTIN CAP 300 MG PO SCH ×3 (05:12→21:31)
[2017-12-21 05:20] LABS: BASOPHILS # (AUTO) 0.1 X10^3/uL (0.0-0.1); BASOPHILS % (AUTO) 0.7 % (0.2-1.0); EOSINOPHILS % (AUTO) 0.3 % (0.9-2.9); HEMATOCRIT 36.4 % (42.0-54.0); HEMOGLOBIN 12.3 g/dL (13.5-18.0); LYMPHOCYTES # (AUTO) 2.7 X10^3/uL (1.3-2.9); LYMPHOCYTES % (AUTO) 29.5 % (21.0-51.0); MEAN CORPUSCULAR HGB CONC 33.8 g/dL (33.0-35.0); MEAN CORPUSCULAR VOLUME 79.9 fL (80.0-100.0); MEAN PLATELET VOLUME 9.8 fL (7.4-11.0); MONOCYTES # (AUTO) 0.7 x10^3/uL (0.3-0.8); MONOCYTES % (AUTO) 7.1 % (0.0-13.0); NEUTROPHILS # (AUTO) 5.8 x10^3/uL (2.2-4.8); NEUTROPHILS % (AUTO) 62.4 % (42.0-75.0); PLATELET COUNT 195 X10^3/uL (150.0-450.0); RED BLOOD COUNT 4.56 X10^6/uL (4.7-6.0); RED CELL DISTRIBUTION WIDTH 18.4 % (11.6-16.5); WHITE BLOOD COUNT 9.3 X10^3/uL (3.6-10.0)
[2017-12-21 05:33] LABS: BLOOD UREA NITROGEN 20 mg/dL (7-18); CALCIUM 8.8 mg/dL (8.5-10.1); CARBON DIOXIDE 24.5 mmol/L (21-32); CHLORIDE 100 mmol/L (98-107); COR NA(FOR HYPERGLY) 138 mmol/L (136-145); CREATININE 1.05 mg/dL (0.70-1.30); SODIUM 135 mmol/L (136-145); eGFR NON BLACK RACES > 60 (>60)
[2017-12-21] MEDS: CARAFATE PO SCH ×4 (05:56→20:44)
[2017-12-21] MEDS: HumuLIN R SUBCUT PRN ×3 (05:57→16:33)
[2017-12-21 06:21] LABS: PLATELET MORPHOLOGY COMMENT NORMAL (NORMAL)
[2017-12-21] MEDS: COZAAR PO SCH (08:59)
[2017-12-21] MEDS: K-DUR TAB 20 MEQ PO SCH (09:00)
[2017-12-21] MEDS: LOPRESSOR TAB 50 MG PO SCH ×2 (09:00→20:44)
[2017-12-21] MEDS: LOVENOX INJ 30 MG SYR SC SCH (09:00)
[2017-12-21] MEDS: PROTONIX TAB 40 MG PO SCH ×2 (09:01→20:44)
[2017-12-21] MEDS: PHENERGAN INJ 25 MG IVP PRN ×2 (09:02→14:03)
[2017-12-21] MEDS: PERCOCET TAB 5/325 MG PO PRN (11:42)
[2017-12-21] MEDS: ZOFRAN INJ 4 MG VIAL IVP PRN ×2 (12:00→22:00)
[2017-12-21 12:22] VITALS: BMI 21.2
--- NOTE | 2017-12-21 17:00 | PCM.PROG ---
Progress Note - Progress Note for Day of Date of Exam: 12/21/17 - Subjective Subjective: WAS ADMITTED FOR DEHYDRATION R/T INTRACTABLE NAUSEA & VOMITING, ABDOMINAL PAIN, AND HYPERGLYCEMIA. TODAY, HE IS ALERT AND ORIENTED, LYING IN BED ON MORNING ROUNDS. HE CONTINUES WITH COMPLAINTS OF NAUSEA, VOMITING , AND ABDOMINAL PAIN. HE ALSO REPORTS GENERALIZED WEAKNESS. ON EXAMINATION, HEART IS REGULAR IN RATE AND RHYTHM. BILATERAL LUNGS ARE NOTED WITH DIMINISHED LUNG SOUNDS THROUGHOUT. ABDOMEN IS ROUND, SOFT, AND NOTED WITH MODERATE TENDERNESS TO PALPATION. HIS VITALS THIS MORNING ARE 98.6-498-69-100%-153/92. LABS WERE OBTAINED. ABNORMAL LAB VALUES INCLUDE THE FOLLOWING: RBC. 4.56, HGB 12.3, HCT 36.4, SODIUM 135, BUN 20, GLUCOSE 218. HE CONTINUES TO RECEIVE IV FLUIDS, PEPCID, PROTONIX, NAUSEA AND PAIN MEDICATIONS. WE WILL CONTINUE WITH CURRENT PLAN OF CDARE TODAY. OTHERWISE, WE PLAN TO FOLLOW UP WITH AM LABS AND CONTINUE TO MONITOR PATIENT. - Past Medical Family Social History Past Med/Fam/Surg Hx: No changes since H&P Allergies: Allergies codeine Allergy (Verified 11/14/17 15:19) morphine Allergy (Verified 11/14/17 15:19) - Review of Systems ROS: No change since H&P - Vital Signs and I&O's Vital Signs: Temperature 97.8 F Pulse Rate [Left Brachial] 95 Pulse Rate 125 Respiratory Rate 20 Blood Pressure [Right Arm] 190/120 Blood Pressure [Left Arm] 130/89 Blood Pressure [Left Radial 160/102 Artery] Blood Pressure 198/108 O2 Sat by Pulse Oximetry 99 Intake and Output: Intake & Output 12/19/17 12/20/17 12/21/17 12/22/17 11:59 11:59 11:59 11:59 Intake Total 0 / 0 2356 / 2356 120 / 120 Balance 0 / 0 2356 / 2356 120 / 120 - Physical Exam Oriented: Normal Eyes: Normal Ear: Normal Nose: Normal Throat: Normal Respiratory: Generalized, Diminished Cardiovascular: Tachycardia, S3. negative: S4, Murmur : Normal Auscultation: Bowel Sounds: Normal Palpation: Normal Tenderness: Diffuse, Moderate. negative: Rebound, Guarding, Rigidity Skin: Normal Musculoskeletal: Normal Psychiatric: Normal Mood Description: Calm Affect: Normal Speech Pattern: Clear, Appropriate - Laboratory and Diagnostics Result Diagrams: 12/21/17 04:05 12/21/17 04:05 Labs: Laboratory WBC 9.3 X10^3/uL (3.6-10.0) 12/21/17 04:05 RBC 4.56 X10^6/uL (4.7-6.0) L 12/21/17 04:05 Hgb 12.3 g/dL (13.5-18.0) L 12/21/17 04:05 Hct 36.4 % (42.0-54.0) L 12/21/17 04:05 MCV 79.9 fL (80.0-100.0) L 12/21/17 04:05 MCH 27.0 pg (27.0-34.0) 12/21/17 04:05 MCHC 33.8 g/dL (33.0-35.0) 12/21/17 04:05 RDW 18.4 % (11.6-16.5) H 12/21/17 04:05 Plt Count 195 X10^3/uL (150.0-450.0) 12/21/17 04:05 Plt Count Comment Adequate (ADEQUATE) 12/21/17 04:05 MPV 9.8 fL (7.4-11.0) 12/21/17 04:05 Neut % (Auto) 62.4 % (42.0-75.0) 12/21/17 04:05 Lymph % (Auto) 29.5 % (21.0-51.0) 12/21/17 04:05 [place] % (Auto) 7.1 % (0.0-13.0) 12/21/17 04:05 Eos % (Auto) 0.3 % (0.9-2.9) L 12/21/17 04:05 Baso % (Auto) 0.7 % (0.2-1.0) 12/21/17 04:05 Neut # (Auto) 5.8 x10^3/uL (2.2-4.8) H 12/21/17 04:05 Lymph # (Auto) 2.7 X10^3/uL (1.3-2.9) 12/21/17 04:05 [place] # (Auto) 0.7 x10^3/uL (0.3-0.8) 12/21/17 04:05 Eos # (Auto) 0.0 x10^3/uL (0.0-0.2) 12/21/17 04:05 Baso # (Auto) 0.1 X10^3/uL (0.0-0.1) 12/21/17 04:05 Absolute Nucleated RBC 0.0 /100WBC 12/21/17 04:05 Total Counted 100 12/19/17 21:26 Neutrophils % (Manual) 77 % (39-76) H 12/19/17 21:26 Lymphocytes % (Manual) 13 % (13-43) 12/19/17 21:26 Monocytes % (Manual) 8 % (4-9) 12/19/17 21:26 Atypical Lymphocytes 2 12/19/17 21:26 Plt Clumps, EDTA Few 12/21/17 04:05 Plt Morphology Comment Normal (NORMAL) 12/21/17 04:05 RBC Morphology Normal (NORMAL) 12/21/17 04:05 Anisocytosis 1+ A 12/19/17 21:26 Sample Site Lbra 12/20/17 00:27 ABG pH 7.440 (7.35-7.45) 12/20/17 00:27 ABG pCO2 42.0 mmHg (35.0-45.0) 12/20/17 00:27 ABG pO2 82.0 mmHg (80.0-100.0) 12/20/17 00:27 ABG HCO3 28.5 mmol/L (22-26) H 12/20/17 00:27 ABG O2 Saturation 96.0 % (90-100) 12/20/17 00:27 ABG Base Excess 3.9 mmol/L (-2.0-2.0) H 12/20/17 00:27 Wang Test Na 12/20/17 00:27 A-a Gradient 15.0 mmHg 12/20/17 00:27 FiO2 21.000 12/20/17 00:27 Blood Gas Comments Les abg well-mtf 12/20/17 00:27 Sodium 135 mmol/L (136-145) L 12/21/17 04:05 Corrected Sodium 138 mmol/L (136-145) 12/21/17 04:05 Potassium 4.0 mmol/L (3.5-5.1) 12/21/17 04:05 Chloride 100 mmol/L (98-107) 12/21/17 04:05 Carbon Dioxide 24.5 mmol/L (21-32) 12/21/17 04:05 BUN 20 mg/dL (7-18) H 12/21/17 04:05 Creatinine 1.05 mg/dL (0.70-1.30) 12/21/17 04:05 Est GFR (MDRD) Af Amer > 60 (>60) 12/21/17 04:05 Est GFR (MDRD) Non-Af > 60 (>60) 12/21/17 04:05 Glucose 218 mg/dL (65-99) H 12/21/17 04:05 POC Glucose (mg/dL) 170 mg/dL (65-99) H 12/21/17 16:29 Calcium 8.8 mg/dL (8.5-10.1) 12/21/17 04:05 Corrected Calcium TNP 12/19/17 21:26 Total Bilirubin 0.70 mg/dL (0.2-1.0) 12/19/17 21:26 AST 16 Units/L (15-37) 12/19/17 21:26 ALT 22 Units/L (12-78) 12/19/17 21:26 Alkaline Phosphatase 87 Units/L (46-116) 12/19/17 21:26 Total Protein 8.7 g/dL (6.4-8.2) H 12/19/17 21:26 Albumin 4.2 g/dL (3.4-5.0) 12/19/17 21:26 Globulin 4.5 g/dL (2.5-4.5) 12/19/17 21:26 Albumin/Globulin Ratio 0.9 Ratio (1.1-2.1) L 12/19/17 21:26 Amylase 88 Units/L (25-115) 12/19/17 21:26 Lipase 283 Units/L (73-393) 12/19/17 21:26 Specimen Type Clean catch urine 12/20/17 01:40 Urine Color Yellow (YELLOW) 12/20/17 01:40 Urine Appearance Slightly hazy (CLEAR) 12/20/17 01:40 Urine pH 6.0 (5.0 - 8.0) 12/20/17 01:40 Ur Specific [place] 1.015 (1.000-1.030) 12/20/17 01:40 Urine Protein 3+ (NEGATIVE) 12/20/17 01:40 Urine Glucose (UA) 4+ (NEGATIVE) 12/20/17 01:40 Urine Ketones 1+ (NEGATIVE) 12/20/17 01:40 Urine Occult Blood 3+ (NEGATIVE) 12/20/17 01:40 Urine Nitrite Negative (NEGATIVE) 12/20/17 01:40 Urine Bilirubin Negative (NEGATIVE) 12/20/17 01:40 Urine Urobilinogen Normal (NORMAL) 12/20/17 01:40 Ur Leukocyte Esterase Negative (NEGATIVE) 12/20/17 01:40 Urine RBC 3-5 /HPF (NONE SEEN) 12/20/17 01:40 Urine WBC None seen /HPF (NONE SEEN) 12/20/17 01:40 Ur Squamous Epith Cells Negative /HPF (NEGATIVE) 12/20/17 01:40 Urine Bacteria Negative /HPF (NEGATIVE) 12/20/17 01:40 Hyaline Casts Rare /LPF (NEGATIVE) 12/20/17 01:40 Urine Mucus Rare /HPF (NEGATIVE) 12/20/17 01:40 Ur Culture Indicated? No/not indicated 12/20/17 01:40 Acetone, Semi-Quant Negative (NEGATIVE) 12/19/17 21:26 H. pylori IgG Antibody Negative (NEGATIVE) 12/19/17 21:26 - Plan (1) Dehydration Status: Acute Plan: IV FLUIDS, COTNINUE TO MONITOR (2) Diabetes mellitus Status: Chronic Qualifiers: Diabetes mellitus type: type 1 Diabetes mellitus complication status: with hyperglycemia Qualified Code(s): E10.65 - Type 1 diabetes mellitus with hyperglycemia Plan: CONTINUE HUMULIN R SLIDING SCALE, CONTINUE HOME INSULINS, CONTINUE TO MONITOR (3) Gastroparesis Status: Acute (4) Generalized weakness Status: Acute Plan: CONTINUE HOME MEDS (5) Hypertension Status: Chronic Qualifiers: Hypertension type: essential hypertension Plan: CONTINUE HOME MEDS (6) Intractable nausea and vomiting Status: Acute (7) Intractable nausea and vomiting Status: Acute Qualifiers: Vomiting type: unspecified Plan: CONTINUE PHENERGAN AND ZOFRAN, CONTINUE TO MONITOR
[2017-12-21] MEDS: ELAVIL PO SCH (20:44)
[2017-12-21] MEDS: SNACK - Diabetic Appropriate PO SCH (20:44)
[2017-12-21] MEDS: INSULIN GLARGINE 50 UNIT SUB-Q SCH (20:45)
[2017-12-21] MEDS: KLONOPIN TAB 1 MG PO PRN (20:45)
[2017-12-22] MEDS: NS 1000 ML 1,000 ML IV SCH ×3 (01:57→21:08)
[2017-12-22] MEDS: CARAFATE PO SCH ×4 (05:33→21:09)
[2017-12-22] MEDS: NEURONTIN CAP 300 MG PO SCH ×3 (05:33→21:10)
[2017-12-22] MEDS: DEMEROL INJ IVP PRN ×4 (05:54→21:11)
[2017-12-22] MEDS: HumuLIN R SUBCUT PRN ×3 (05:54→15:54)
[2017-12-22 06:04] LABS: BASOPHILS % (AUTO) 0.2 % (0.2-1.0); EOSINOPHILS # (AUTO) 0.1 x10^3/uL (0.0-0.2); EOSINOPHILS % (AUTO) 0.9 % (0.9-2.9); HEMATOCRIT 32.4 % (42.0-54.0); LYMPHOCYTES # (AUTO) 2.4 X10^3/uL (1.3-2.9); LYMPHOCYTES % (AUTO) 36.1 % (21.0-51.0); MEAN CORPUSCULAR HEMOGLOBIN 27.2 pg (27.0-34.0); MEAN CORPUSCULAR VOLUME 79.8 fL (80.0-100.0); MEAN PLATELET VOLUME 8.7 fL (7.4-11.0); MONOCYTES # (AUTO) 0.5 x10^3/uL (0.3-0.8); MONOCYTES % (AUTO) 7.6 % (0.0-13.0); NEUTROPHILS # (AUTO) 3.6 x10^3/uL (2.2-4.8); NEUTROPHILS % (AUTO) 55.2 % (42.0-75.0); PLATELET COUNT 240 X10^3/uL (150.0-450.0); RED BLOOD COUNT 4.06 X10^6/uL (4.7-6.0); RED CELL DISTRIBUTION WIDTH 17.6 % (11.6-16.5); WHITE BLOOD COUNT 6.5 X10^3/uL (3.6-10.0)
[2017-12-22 06:19] LABS: ALANINE AMINOTRANSFERASE 16 Units/L (12-78); ALBUMIN 2.9 g/dL (3.4-5.0); ALKALINE PHOSPHATASE 72 Units/L (46-116); ASPARTATE AMINO TRANSFERASE 10 Units/L (15-37); BLOOD UREA NITROGEN 19 mg/dL (7-18); CALCIUM 8.1 mg/dL (8.5-10.1); CARBON DIOXIDE 23.9 mmol/L (21-32); CHLORIDE 102 mmol/L (98-107); COR NA(FOR HYPERGLY) 138 mmol/L (136-145); CREATININE 1.22 mg/dL (0.70-1.30); SODIUM 135 mmol/L (136-145); TOTAL PROTEIN 6.7 g/dL (6.4-8.2); eGFR NON BLACK RACES > 60 (>60)
[2017-12-22] MEDS: K-DUR TAB 20 MEQ PO SCH (09:05)
[2017-12-22] MEDS: LOPRESSOR TAB 50 MG PO SCH ×2 (09:05→21:10)
[2017-12-22] MEDS: PROTONIX TAB 40 MG PO SCH ×2 (09:05→21:10)
[2017-12-22] MEDS: COZAAR PO SCH (09:06)
[2017-12-22] MEDS: LOVENOX INJ 30 MG SYR SC SCH (09:07)
--- NOTE | 2017-12-22 20:46 | PCM.PROG ---
Progress Note - Progress Note for Day of Date of Exam: 12/22/17 - Subjective Subjective: WAS ADMITTED FOR DEHYDRATION R/T INTRACTABLE NAUSEA & VOMITING, ABDOMINAL PAIN, AND HYPERGLYCEMIA. TODAY, HE IS ALERT AND ORIENTED, LYING IN BED ON MORNING ROUNDS. HE CONTINUES WITH COMPLAINTS OF NAUSEA, VOMITING , ABDOMINAL PAIN, AND GENERALIZED WEAKNESS. HE REPORTS SLIGHT IMPROVEMENT SINCE YESTERDAY. ON EXAMINATION, HEART IS REGULAR IN RATE AND RHYTHM. BILATERAL LUNGS ARE NOTED WITH DIMINISHED LUNG SOUNDS THROUGHOUT. ABDOMEN IS ROUND, SOFT, AND NOTED WITH MILD, DIFFUSE TENDERNESS TO PALPATION. HIS VITALS THIS MORNING ARE 97.7-102-20-99%-186/96. LABS WERE OBTAINED. ABNORMAL LAB VALUES INCLUDE THE FOLLOWING: RBC 4.06, HGB 11.0, HCT 32.4, SODIUM 135, BUN 19, GLUCOSE 209, CALCIUM 8.1, AST 10, ALBUMIN 2.9. HE CONTINUES TO RECEIVE IV FLUIDS, PEPCID, PROTONIX, NAUSEA AND PAIN MEDICATIONS. WE WILL CONTINUE WITH CURRENT PLAN OF CARE TODAY. OTHERWISE, WE PLAN TO FOLLOW UP WITH AM LABS AND CONTINUE TO MONITOR PATIENT. - Past Medical Family Social History Past Med/Fam/Surg Hx: No changes since H&P Allergies: Allergies codeine Allergy (Verified 11/14/17 15:19) morphine Allergy (Verified 11/14/17 15:19) - Review of Systems ROS: No change since H&P - Vital Signs and I&O's Vital Signs: Temperature 98.3 F Pulse Rate [Right Brachial] 91 Pulse Rate [Left Brachial] 100 Pulse Rate 125 Respiratory Rate 20 Blood Pressure [Right Arm] 181/99 Blood Pressure [Left Arm] 133/90 Blood Pressure [Left Radial 160/102 Artery] Blood Pressure 198/108 O2 Sat by Pulse Oximetry 99 Intake and Output: Intake & Output 12/20/17 12/21/17 12/22/17 12/23/17 11:59 11:59 11:59 11:59 Intake Total 0 / 0 2356 / 2356 1780 / 1780 680 / 680 Balance 0 / 0 2356 / 2356 1780 / 680 - Physical Exam Oriented: Normal Eyes: Normal Ear: Normal Nose: Normal Throat: Normal Respiratory: Generalized, Diminished Cardiovascular: Tachycardia, S3. negative: S4, Murmur : Normal Auscultation: Bowel Sounds: Normal Palpation: Normal Tenderness: Diffuse, Moderate. negative: Rebound, Guarding, Rigidity Skin: Normal Musculoskeletal: Normal Psychiatric: Normal Mood Description: Calm Affect: Normal Speech Pattern: Clear, Appropriate - Laboratory and Diagnostics Result Diagrams: 12/22/17 05:42 12/22/17 05:42 Labs: Laboratory WBC 6.5 X10^3/uL (3.6-10.0) 12/22/17 05:42 RBC 4.06 X10^6/uL (4.7-6.0) L 12/22/17 05:42 Hgb 11.0 g/dL (13.5-18.0) L 12/22/17 05:42 Hct 32.4 % (42.0-54.0) L 12/22/17 05:42 MCV 79.8 fL (80.0-100.0) L 12/22/17 05:42 MCH 27.2 pg (27.0-34.0) 12/22/17 05:42 MCHC 34.0 g/dL (33.0-35.0) 12/22/17 05:42 RDW 17.6 % (11.6-16.5) H 12/22/17 05:42 Plt Count 240 X10^3/uL (150.0-450.0) 12/22/17 05:42 Plt Count Comment Adequate (ADEQUATE) 12/21/17 04:05 MPV 8.7 fL (7.4-11.0) 12/22/17 05:42 Neut % (Auto) 55.2 % (42.0-75.0) 12/22/17 05:42 Lymph % (Auto) 36.1 % (21.0-51.0) 12/22/17 05:42 [place] % (Auto) 7.6 % (0.0-13.0) 12/22/17 05:42 Eos % (Auto) 0.9 % (0.9-2.9) 12/22/17 05:42 Baso % (Auto) 0.2 % (0.2-1.0) 12/22/17 05:42 Neut # (Auto) 3.6 x10^3/uL (2.2-4.8) 12/22/17 05:42 Lymph # (Auto) 2.4 X10^3/uL (1.3-2.9) 12/22/17 05:42 [place] # (Auto) 0.5 x10^3/uL (0.3-0.8) 12/22/17 05:42 Eos # (Auto) 0.1 x10^3/uL (0.0-0.2) 12/22/17 05:42 Baso # (Auto) 0.0 X10^3/uL (0.0-0.1) 12/22/17 05:42 Absolute Nucleated RBC 0.3 /100WBC 12/22/17 05:42 Total Counted 100 12/19/17 21:26 Neutrophils % (Manual) 77 % (39-76) H 12/19/17 21:26 Lymphocytes % (Manual) 13 % (13-43) 12/19/17 21:26 Monocytes % (Manual) 8 % (4-9) 12/19/17 21:26 Atypical Lymphocytes 2 12/19/17 21:26 Plt Clumps, EDTA Few 12/21/17 04:05 Plt Morphology Comment Normal (NORMAL) 12/21/17 04:05 RBC Morphology Normal (NORMAL) 12/21/17 04:05 Anisocytosis 1+ A 12/19/17 21:26 Sample Site Lbra 12/20/17 00:27 ABG pH 7.440 (7.35-7.45) 12/20/17 00:27 ABG pCO2 42.0 mmHg (35.0-45.0) 12/20/17 00:27 ABG pO2 82.0 mmHg (80.0-100.0) 12/20/17 00:27 ABG HCO3 28.5 mmol/L (22-26) H 12/20/17 00:27 ABG O2 Saturation 96.0 % (90-100) 12/20/17 00:27 ABG Base Excess 3.9 mmol/L (-2.0-2.0) H 12/20/17 00:27 Wang Test Na 12/20/17 00:27 A-a Gradient 15.0 mmHg 12/20/17 00:27 FiO2 21.000 12/20/17 00:27 Blood Gas Comments Les abg well-mtf 12/20/17 00:27 Sodium 135 mmol/L (136-145) L 12/22/17 05:42 Corrected Sodium 138 mmol/L (136-145) 12/22/17 05:42 Potassium 3.6 mmol/L (3.5-5.1) 12/22/17 05:42 Chloride 102 mmol/L (98-107) 12/22/17 05:42 Carbon Dioxide 23.9 mmol/L (21-32) 12/22/17 05:42 BUN 19 mg/dL (7-18) H 12/22/17 05:42 Creatinine 1.22 mg/dL (0.70-1.30) 12/22/17 05:42 Est GFR (MDRD) Af Amer > 60 (>60) 12/22/17 05:42 Est GFR (MDRD) Non-Af > 60 (>60) 12/22/17 05:42 Glucose 209 mg/dL (65-99) H 12/22/17 05:42 POC Glucose (mg/dL) 211 mg/dL (65-99) H 12/22/17 19:26 Calcium 8.1 mg/dL (8.5-10.1) L 12/22/17 05:42 Corrected Calcium 9.0 mg/dL (8.5-10.1) 12/22/17 05:42 Total Bilirubin 0.40 mg/dL (0.2-1.0) 12/22/17 05:42 AST 10 Units/L (15-37) L 12/22/17 05:42 ALT 16 Units/L (12-78) 12/22/17 05:42 Alkaline Phosphatase 72 Units/L (46-116) 12/22/17 05:42 Total Protein 6.7 g/dL (6.4-8.2) 12/22/17 05:42 Albumin 2.9 g/dL (3.4-5.0) L 12/22/17 05:42 Globulin 3.8 g/dL (2.5-4.5) 12/22/17 05:42 Albumin/Globulin Ratio 0.8 Ratio (1.1-2.1) L 12/22/17 05:42 Amylase 88 Units/L (25-115) 12/19/17 21:26 Lipase 283 Units/L (73-393) 12/19/17 21:26 Specimen Type Clean catch urine 12/20/17 01:40 Urine Color Yellow (YELLOW) 12/20/17 01:40 Urine Appearance Slightly hazy (CLEAR) 12/20/17 01:40 Urine pH 6.0 (5.0 - 8.0) 12/20/17 01:40 Ur Specific [place] 1.015 (1.000-1.030) 12/20/17 01:40 Urine Protein 3+ (NEGATIVE) 12/20/17 01:40 Urine Glucose (UA) 4+ (NEGATIVE) 12/20/17 01:40 Urine Ketones 1+ (NEGATIVE) 12/20/17 01:40 Urine Occult Blood 3+ (NEGATIVE) 12/20/17 01:40 Urine Nitrite Negative (NEGATIVE) 12/20/17 01:40 Urine Bilirubin Negative (NEGATIVE) 12/20/17 01:40 Urine Urobilinogen Normal (NORMAL) 12/20/17 01:40 Ur Leukocyte Esterase Negative (NEGATIVE) 12/20/17 01:40 Urine RBC 3-5 /HPF (NONE SEEN) 12/20/17 01:40 Urine WBC None seen /HPF (NONE SEEN) 12/20/17 01:40 Ur Squamous Epith Cells Negative /HPF (NEGATIVE) 12/20/17 01:40 Urine Bacteria Negative /HPF (NEGATIVE) 12/20/17 01:40 Hyaline Casts Rare /LPF (NEGATIVE) 12/20/17 01:40 Urine Mucus Rare /HPF (NEGATIVE) 12/20/17 01:40 Ur Culture Indicated? No/not indicated 12/20/17 01:40 Acetone, Semi-Quant Negative (NEGATIVE) 12/19/17 21:26 H. pylori IgG Antibody Negative (NEGATIVE) 12/19/17 21:26 - Plan (1) Dehydration Status: Acute Plan: IV FLUIDS, COTNINUE TO MONITOR (2) Diabetes mellitus Status: Chronic Qualifiers: Diabetes mellitus type: type 1 Diabetes mellitus complication status: with hyperglycemia Qualified Code(s): E10.65 - Type 1 diabetes mellitus with hyperglycemia Plan: CONTINUE HUMULIN R SLIDING SCALE, CONTINUE HOME INSULINS, CONTINUE TO MONITOR (3) Gastroparesis Status: Acute (4) Generalized weakness Status: Acute Plan: CONTINUE HOME MEDS (5) Hypertension Status: Chronic Qualifiers: Hypertension type: essential hypertension Plan: CONTINUE HOME MEDS (6) Intractable nausea and vomiting Status: Acute (7) Intractable nausea and vomiting Status: Acute Qualifiers: Vomiting type: unspecified Plan: CONTINUE PHENERGAN AND ZOFRAN, CONTINUE TO MONITOR
[2017-12-22] MEDS: ELAVIL PO SCH (21:10)
[2017-12-22] MEDS: SNACK - Diabetic Appropriate PO SCH (21:11)
[2017-12-22] MEDS: INSULIN GLARGINE 50 UNIT SUB-Q SCH (21:12)
[2017-12-23] MEDS: PERCOCET TAB 5/325 MG PO PRN (00:24)
[2017-12-23] MEDS: KLONOPIN TAB 1 MG PO PRN (00:24)
[2017-12-23] MEDS: PHENERGAN INJ 25 MG IVP PRN (00:25)
[2017-12-23] MEDS: PEPCID 20 MG IV PREMIX* 20 MG/50 ML BAG IV PRN (00:25)
[2017-12-23 05:19] LABS: BASOPHILS # (AUTO) 0.1 X10^3/uL (0.0-0.1); BASOPHILS % (AUTO) 2.5 % (0.2-1.0); EOSINOPHILS # (AUTO) 0.1 x10^3/uL (0.0-0.2); EOSINOPHILS % (AUTO) 0.9 % (0.9-2.9); HEMATOCRIT 31.9 % (42.0-54.0); HEMOGLOBIN 10.7 g/dL (13.5-18.0); LYMPHOCYTES # (AUTO) 1.6 X10^3/uL (1.3-2.9); LYMPHOCYTES % (AUTO) 28.2 % (21.0-51.0); MEAN CORPUSCULAR HGB CONC 33.6 g/dL (33.0-35.0); MEAN CORPUSCULAR VOLUME 80.5 fL (80.0-100.0); MONOCYTES # (AUTO) 0.3 x10^3/uL (0.3-0.8); MONOCYTES % (AUTO) 5.8 % (0.0-13.0); NEUTROPHILS # (AUTO) 3.6 x10^3/uL (2.2-4.8); NEUTROPHILS % (AUTO) 62.6 % (42.0-75.0); PLATELET COUNT 147 X10^3/uL (150.0-450.0); RED BLOOD COUNT 3.96 X10^6/uL (4.7-6.0); RED CELL DISTRIBUTION WIDTH 17.3 % (11.6-16.5); WHITE BLOOD COUNT 5.7 X10^3/uL (3.6-10.0)
[2017-12-23 05:42] LABS: ALANINE AMINOTRANSFERASE 16 Units/L (12-78); ALBUMIN 2.9 g/dL (3.4-5.0); ALKALINE PHOSPHATASE 80 Units/L (46-116); ASPARTATE AMINO TRANSFERASE 12 Units/L (15-37); BLOOD UREA NITROGEN 12 mg/dL (7-18); CALCIUM 8.2 mg/dL (8.5-10.1); CARBON DIOXIDE 23.4 mmol/L (21-32); CHLORIDE 103 mmol/L (98-107); COR CA(FOR HYPOALB) 9.1 mg/dL (8.5-10.1); COR NA(FOR HYPERGLY) 138 mmol/L (136-145); CREATININE 1.04 mg/dL (0.70-1.30); SODIUM 134 mmol/L (136-145); TOTAL PROTEIN 6.7 g/dL (6.4-8.2); eGFR NON BLACK RACES > 60 (>60)
[2017-12-23] MEDS: CARAFATE PO SCH ×2 (06:12→10:51)
[2017-12-23] MEDS: HumuLIN R SUBCUT PRN (06:12)
[2017-12-23] MEDS: NEURONTIN CAP 300 MG PO SCH (06:12)
[2017-12-23] MEDS: NS 1000 ML 1,000 ML IV SCH ×2 (06:16→09:00)
[2017-12-23] MEDS: DEMEROL INJ IVP PRN ×2 (06:19→10:51)
[2017-12-23] MEDS: LOVENOX INJ 30 MG SYR SC SCH (09:19)
[2017-12-23] MEDS: PROTONIX TAB 40 MG PO SCH (09:20)
[2017-12-23] MEDS: K-DUR TAB 20 MEQ PO SCH (09:20)
[2017-12-23] MEDS: LOPRESSOR TAB 50 MG PO SCH (09:20)
[2017-12-23] MEDS: COZAAR PO SCH (10:57)
[2017-12-23 11:06] VITALS: BP 119/69
--- NOTE | 2017-12-31 20:02 | DR.CARTERD ---
- Discharge Summary for: Discharge Summary for Date of:: 12/23/17 - Admission Date Date of Admission: 12/20/17 - Admission Diagnoses Admission Diagnosis: (1) Intractable nausea and vomiting (2) Dehydration (3) Gastroparesis (4) Generalized weakness (5) Hypertension (6) Diabetes mellitus - Discharge Date Discharge Date: 12/23/17 - Discharge Diagnoses Discharge Diagnosis: (1) Intractable nausea and vomiting (2) Dehydration (3) Gastroparesis (4) Generalized weakness (5) Hypertension (6) Diabetes mellitus - Hospital Course Hospital Course: Day one, Mr. Mayes presented to the emergency room on 12/19/17 with reports of persistent nausea, vomiting, and abdominal pain. Patient had a history of diabetes and diabetic gastroparesis. He had been instructed to only intake liquids, however, he was generally non-compliant. He reported epigastric pain that started approximately one day prior. Patient stated he had tried drinking Glucerna but unable to hold any fluids down. Patient rated abdominal pain as a 7/10. Patient given multiple doses of pain and nausea medications in the emergency room with little improvement. An abdomen/pelvis CT revealed no acute inflammatory process within the abdomen or pelvis identified given limitations of a non-contrast examination. Increased central lucency within the pleural- based opacity within the right lower lobe likely represents resolving pulmonary infarct. Patient noted with moderate abdominal tenderness on palpation. Patient admitted for further evaluation and treatment of dehydration, persistent n/v, diabetes, and diabetic gastroparesis. Patient started on normal saline at 125ml/hr, Pepcid, Zofran, Phenergan, Demerol and Humulin R sliding scale. Day two, Patient continued with complaints of nausea, vomiting, and abdominal pain. He also reported generalized weakness. On examination, heart was regular in rate and rhythm. On auscultation, lungs were diminished throughout. Abdomen was round, soft, and noted with moderate tenderness to palpation. Vitals were: 98.2-964-71-100%-153/92. Abnormal labs were: rbc 4.56, hgb 12.3, hct 36.4, sodium 135, bun 20, glucose 218. We continued IV fluids, Pepcid, Protonix, nausea and pain medications. We continued to monitor. Day three, Patient continued with complaints of nausea, vomiting, and abdominal pain. He also reported generalized weakness. He reported slight improvement in symptoms. On examination, heart was regular in rate and rhythm. On auscultation , lungs were diminished throughout. Abdomen was round, soft, and noted with mild tenderness to palpation. Vitals were: 97.7-102-20-99%-186/96. Abnormal labs were: rbc 4.06, hgb 11.0, hct 32.4, sodium 135, bun 19, glucose 209. We continued IV fluids, Pepcid, Protonix, nausea and pain medications. We continued to monitor. Day four, Patient reported he was feeling better. He denied nausea, vomiting, or abdominal pain. Patient tolerated liquid diet well. Patient reported he was ready for discharge. Vital signs stable. Labs wnl. Upon palpation, abdomen was non-tender. We planned for discharge. Instructions for medications and follow up were discussed with patient and family, both voiced understanding. Patient discharged home in stable condition with family. - Discharge Medications Discharge Medications: Prescriptions: Home medications clonazepam 1 tab PO HS PRN 07/11/16 pantoprazole 1 tab PO BID 07/11/16 famotidine [Pepcid] 40 mg PO BID #60 04/18/17 prochlorperazine maleate 10 mg PO TID PRN #12 tab 07/30/17 amitriptyline 1 tab PO HS 11/14/17 gabapentin [Neurontin] 1 tab PO TID 11/14/17 losartan 100 mg PO DAILY 11/14/17 metoprolol tartrate [Lopressor] 1 tab PO BID 11/14/17 potassium chloride [Klor-Con] 1 tab PO DAILY 11/14/17 sucralfate 1 tab PO ACHS 11/14/17 tizanidine 1 tab PO HS PRN 11/14/17 promethazine 25 mg PO Q6H PRN #30 tab 11/19/17 clonidine [Qpgiuhpc-YUM-7] 1 patch TOPICAL Q7D 12/02/17 insulin glargine [Toujeo Max SoloStar] 50 unit SUB-Q HS 12/05/17 - Discharge Disposition Discharge Disposition: Patient is to follow up in our office in one week.
== END 2017-12-23 12:30 | disposition home or self-care (01) | DRG 641 ==
LOC: ER 20:55 → MED/SURG 12-20 01:00
PROVIDERS: ADMIT Internal Medicine; ATTEND Internal Medicine
DX: R53.1 Weakness; E10.43 Type 1 diabetes mellitus with diabetic autonomic (poly)neuropathy; K31.84 Gastroparesis; I10 Essential (primary) hypertension; K21.9 Gastro-esophageal reflux disease without esophagitis; E10.65 Type 1 diabetes mellitus with hyperglycemia; E78.2 Mixed hyperlipidemia; F41.8 Other specified anxiety disorders; E86.0 Dehydration; R06.02 Shortness of breath; R10.13 Epigastric pain; R11.2 Nausea with vomiting, unspecified
CPT/HCPCS: 36415; 36600; 74176; 80048; 80053; 81001; 82009; 82150; 82803; 83690; 85025; 86677; 96365; 96367; 96374; 96375; 99283; 99284; A4216; A4222; C9113; S0028; J1650; J1815; J1885; J2175; J2405; J2550; J2765; J7030

== ENCOUNTER 2018-02-16 21:00 | Inpatient (IN) ==
[2018-02-16] MEDS ORDERED: COMPAZINE INJ IVP ONE (21:31)
[2018-02-16] MEDS ORDERED: BENADRYL INJ 50 MG VIAL IV ONE (21:31)
[2018-02-16] MEDS ORDERED: NS 1000 ML 1,000 ML IV ONE (21:31)
[2018-02-16] MEDS ORDERED: BENADRYL INJ 50 MG VIAL ONE (21:59)
[2018-02-16] MEDS ORDERED: COMPAZINE INJ ONE (21:59)
[2018-02-16] MEDS ORDERED: NS 1000 ML 1,000 ML ONE (21:59)
[2018-02-16 23:39] LABS: BASOPHILS % (AUTO) 0.3 % (0.2-1.0); HEMATOCRIT 36.5 % (42.0-54.0); HEMOGLOBIN 12.3 g/dL (13.5-18.0); LYMPHOCYTES # (AUTO) 0.8 X10^3/uL (1.3-2.9); LYMPHOCYTES % (AUTO) 6.1 % (21.0-51.0); MEAN CORPUSCULAR HEMOGLOBIN 27.3 pg (27.0-34.0); MEAN CORPUSCULAR HGB CONC 33.8 g/dL (33.0-35.0); MEAN CORPUSCULAR VOLUME 80.5 fL (80.0-100.0); MEAN PLATELET VOLUME 9.1 fL (7.4-11.0); MONOCYTES # (AUTO) 0.6 x10^3/uL (0.3-0.8); MONOCYTES % (AUTO) 4.2 % (0.0-13.0); NEUTROPHILS # (AUTO) 12.3 x10^3/uL (2.2-4.8); NEUTROPHILS % (AUTO) 89.4 % (42.0-75.0); PLATELET COUNT 293 X10^3/uL (150.0-450.0); RED BLOOD COUNT 4.53 X10^6/uL (4.7-6.0); RED CELL DISTRIBUTION WIDTH 13.1 % (11.6-16.5); WHITE BLOOD COUNT 13.8 X10^3/uL (3.6-10.0)
[2018-02-16 23:42] LABS: SERUM ACETONE SMALL (NEGATIVE)
[2018-02-16 23:51] LABS: ALANINE AMINOTRANSFERASE 21 Units/L (12-78); ALBUMIN 4.2 g/dL (3.4-5.0); ALKALINE PHOSPHATASE 90 Units/L (46-116); AMYLASE 84 Units/L (25-115); ASPARTATE AMINO TRANSFERASE 14 Units/L (15-37); BLOOD UREA NITROGEN 30 mg/dL (7-18); CALCIUM 10.2 mg/dL (8.5-10.1); CARBON DIOXIDE 34.7 mmol/L (21-32); CHLORIDE 90 mmol/L (98-107); COR NA(FOR HYPERGLY) 142 mmol/L (136-145); CREATININE 1.94 mg/dL (0.70-1.30); LIPASE 112 Units/L (73-393); SODIUM 135 mmol/L (136-145); TOTAL PROTEIN 8.6 g/dL (6.4-8.2); eGFR NON BLACK RACES 40 (>60)
[2018-02-17] MEDS ORDERED: NS 1000 ML 1,000 ML IV ONE (01:19)
[2018-02-17] MEDS ORDERED: NS 1000 ML 1,000 ML ONE ×2 (01:25→03:29)
[2018-02-17] MEDS ORDERED: DEMEROL INJ IVP ONE ×2 (01:34→01:35)
[2018-02-17] MEDS ORDERED: PHENERGAN INJ 25 MG IV ONE ×2 (01:34→01:37)
[2018-02-17] MEDS ORDERED: PHENERGAN INJ 25 MG ONE (01:35)
[2018-02-17] MEDS ORDERED: DEMEROL INJ ONE (01:35)
--- NOTE | 2018-02-17 03:06 | DR.N/VMALE ---
HPI Time Seen Time seen: 21:30 Primary Care Physician Primary Care Physician: ethan Mills Chief Complaint Doctors Comments: Patient presents with complaint that he is sick, he has been not able to keep anything down. He has a history of gastroparesis Chief Complaint:: sinck vomiting Source History Provided: Patient Mode of Arrival Mode of Arrival: Ambulatory Timing Onset of Chief Complaint: 02/15/18 PMH PMH Past Medical History: Yes Past Medical History: Anxiety, Diabetes, Dyslipidemia, GERD and Hypertension Past Surgical History: Yes Surgical History: Appendectomy and Cholecystectomy Family History History of Family Medical Conditions: Yes Family Medical History: Diabetes Mellitus and Hypertension Social History Does patient currently use any type of tobacco product: No Have you used tobacco products in the last 12 months: No Type of Tobacco Use: None Does any household member use tobacco: No Alcohol Use: None Do you use any recreational Drugs:: No Lives With: Family Lives Where: Home infectious screening In the last 2 months have you had wt loss of >10#?: NO Have you had fever, night sweats or hemotysis?: No Have you traveled outside the country in the last 6 months?: No Isolation: Standard PE Vital Signs Vitals: Temperature 96.9 F Pulse Rate 131 Respiratory Rate 18 Blood Pressure [Right Arm] 153/78 Blood Pressure [Left Arm] 130/77 Blood Pressure [Left Radial 160/102 Artery] Blood Pressure 119/85 O2 Sat by Pulse Oximetry 100 General Limitations: No Limitations General Appearance: Alert, In No Apparent Distress and In Distress Head Head Exam: Normal Inspection, Atraumatic and Normocephalic Eyes Eye exam: Normal Appearance, PERRL and EOMI ENT ENT Exam: Normal Exam, Normal Oropharynx, Mucous Membranes Moist and TM's Normal Bilaterally Neck Neck Exam: Normal Inspection and Full ROM Chest Chest Inspection: Normal Inspection and Symmetric Chest Wall Rise Respiratory Respiratory Exam: Normal Lung Sounds Bilat and Accessory Muscle Use Respiratory Exam: Bilateral: Clear to Auscultation Cardiovascular Cardiovascular Exam: Regular Rate and Normal Rhythm Abdominal Exam Abdominal Exam: Normal Inspection and Normal Bowel Sounds Abdominal Tenderness: RUQ, RLQ, LUQ and Diffuse Rectal Rectal Exam: Deferred Exam: Male: Deferred Extremities Extremities Exam: Normal Inspection and Full ROM Back Back Exam: Normal Inspection and Full ROM Neurologic Neurological Exam: Alert, Oriented X3 and CN II-XII Intact Psychiatric Psychiatric Exam: Normal Affect and Normal Mood Skin Skin Exam: Warm, Dry and Intact; negative Normal Color, Rash and Cyanosis COURSE Treatment Treatment: Analgesic, NS, antiemetic Reevaluation 1st: Improved (Improved somewhat but continues to have abdominal pain) Consultation Called: 22:00 Consultation Comments: Dr. Cohen agreed to admit for further treatment and evaluation. ROR Labs Reviewed Laboratory Results Reviewed?: Yes Result Diagrams: 02/16/18 23:15 02/16/18 23:15 Laboratory: WBC 13.8 X10^3/uL (3.6-10.0) H 02/16/18 23:15 RBC 4.53 X10^6/uL (4.7-6.0) L 02/16/18 23:15 Hgb 12.3 g/dL (13.5-18.0) L 02/16/18 23:15 Hct 36.5 % (42.0-54.0) L 02/16/18 23:15 MCV 80.5 fL (80.0-100.0) 02/16/18 23:15 MCH 27.3 pg (27.0-34.0) 02/16/18 23:15 MCHC 33.8 g/dL (33.0-35.0) 02/16/18 23:15 RDW 13.1 % (11.6-16.5) 02/16/18 23:15 Plt Count 293 X10^3/uL (150.0-450.0) 02/16/18 23:15 MPV 9.1 fL (7.4-11.0) 02/16/18 23:15 Neut % (Auto) 89.4 % (42.0-75.0) H 02/16/18 23:15 Lymph % (Auto) 6.1 % (21.0-51.0) L 02/16/18 23:15 [place] % (Auto) 4.2 % (0.0-13.0) 02/16/18 23:15 Eos % (Auto) 0.0 % (0.9-2.9) L 02/16/18 23:15 Baso % (Auto) 0.3 % (0.2-1.0) 02/16/18 23:15 Neut # (Auto) 12.3 x10^3/uL (2.2-4.8) H 02/16/18 23:15 Lymph # (Auto) 0.8 X10^3/uL (1.3-2.9) L 02/16/18 23:15 [place] # (Auto) 0.6 x10^3/uL (0.3-0.8) 02/16/18 23:15 Eos # (Auto) 0.0 x10^3/uL (0.0-0.2) 02/16/18 23:15 Baso # (Auto) 0.0 X10^3/uL (0.0-0.1) 02/16/18 23:15 Absolute Nucleated RBC 0.0 /100WBC 02/16/18 23:15 Sodium 135 mmol/L (136-145) L 02/16/18 23:15 Corrected Sodium 142 mmol/L (136-145) 02/16/18 23:15 Potassium 3.9 mmol/L (3.5-5.1) 02/16/18 23:15 Chloride 90 mmol/L (98-107) L 02/16/18 23:15 Carbon Dioxide 34.7 mmol/L (21-32) H 02/16/18 23:15 BUN 30 mg/dL (7-18) H 02/16/18 23:15 Creatinine 1.94 mg/dL (0.70-1.30) H 02/16/18 23:15 Est GFR (MDRD) Af Amer 48 (>60) L 02/16/18 23:15 Est GFR (MDRD) Non-Af 40 (>60) L 02/16/18 23:15 Glucose 398 mg/dL (65-99) H 02/16/18 23:15 POC Glucose (mg/dL) 429 mg/dL (65-99) 02/16/18 21:27 Calcium 10.2 mg/dL (8.5-10.1) H 02/16/18 23:15 Corrected Calcium TNP 02/16/18 23:15 Total Bilirubin 0.80 mg/dL (0.2-1.0) 02/16/18 23:15 AST 14 Units/L (15-37) L 02/16/18 23:15 ALT 21 Units/L (12-78) 02/16/18 23:15 Alkaline Phosphatase 90 Units/L (46-116) 02/16/18 23:15 Total Protein 8.6 g/dL (6.4-8.2) H 02/16/18 23:15 Albumin 4.2 g/dL (3.4-5.0) 02/16/18 23:15 Globulin 4.4 g/dL (2.5-4.5) 02/16/18 23:15 Albumin/Globulin Ratio 1.0 Ratio (1.1-2.1) L 02/16/18 23:15 Amylase 84 Units/L (25-115) 02/16/18 23:15 Lipase 112 Units/L (73-393) 02/16/18 23:15 Acetone, Semi-Quant Small (NEGATIVE) H 02/16/18 23:15 Diagnosis Discharge Problem: Gastroparesis, Hyperglycemia
[2018-02-17] MEDS ORDERED: DEMEROL INJ IVP PRN (03:11)
[2018-02-17] MEDS ORDERED: CATAPRES-TTS-3 TD SCH ×2 (04:00→07:00)
[2018-02-17] MEDS ORDERED: NS 1000 ML 1,000 ML IV SCH (04:00)
[2018-02-17] MEDS ORDERED: ZOFRAN INJ 4 MG VIAL 16 MG, ATIVAN INJ 2 MG VIAL 1 MG, DECADRON INJ 10 MG in NS 50 ML I... IV PRN (05:45)
[2018-02-17] MEDS: NS 1000 ML 1,000 ML IV SCH ×5 (06:00→22:22)
[2018-02-17] MEDS ORDERED: NEURONTIN CAP 300 MG PO SCH (06:00)
[2018-02-17] MEDS ORDERED: NS 50 ML IV 50 ML IV ONE (06:01)
[2018-02-17] MEDS ORDERED: DECADRON INJ PRESERVATIVE-FREE IM ONE (06:02)
[2018-02-17] MEDS ORDERED: ATIVAN INJ 2 MG VIAL ONE (06:04)
[2018-02-17] MEDS ORDERED: ZOFRAN INJ 4 MG VIAL ONE (06:05)
[2018-02-17] MEDS: HumuLIN R SUBCUT PRN ×3 (06:16→13:11)
[2018-02-17] MEDS: APRESOLINE INJ 20 MG VIAL IVP PRN ×2 (07:18→18:19)
[2018-02-17] MEDS: CHECK PATCH XX SCH ×2 (08:43→22:21)
--- NOTE | 2018-02-17 09:59 | RAD ---
HISTORY: Lethargy Study: Chest AP portable Comparison: 12/02/2017 Findings: The heart is within normal limits in size. The jennifer are normal. The lungs are well inflated and free of acute alveolar infiltrates. No pleural effusions are identified. The bony thorax is unremarkable. IMPRESSION: No significant abnormality identified Reported By:
[2018-02-17 10:42] LABS: ABG BASE EXCESS 10.2 mmol/L (-2.0-2.0)
[2018-02-17 10:43] LABS: ABG ALLEN TEST POS; ABG HCO3 34.3 mmol/L (22-26); FRACTIONATED INSPIRED OXYGEN 21
--- NOTE | 2018-02-17 13:35 | DR.H&P ---
H&P - History & Physical for Day of: H&P Date: 02/17/18 - Chief Complaint Chief Complaint: N/V, ELEVATED BLOOD SUGAR "SICK" - History of Present Illness History of Present Illness: 47 BM ER ADMISSION AFTER PRESENTING WITH CO "BEING SICK" FOR SEVERAL DAYS. CO INTRACTABLE N/V. PT HAS PMH TYPE 1 DIABETES, NON COMPLIANCE. PT EVALUATED IN ER, ELEVATED GLUCOSE, DEHYDRATION, UNCONTROLLED HTN. PT ADMITTED TO ICU FOR TREATMENT AND EVALUATION OF DKA, N/V, HTN URGENCY - Past Medical History Past Medical History: Hypertension, Dyslipidemia, Diabetes, Anxiety, GERD Additional Medical History: Diabetic Neuropathy, Diabetic Gastroparesis, Hiatal Hernia, Gastric Ulcer, Gall Bladder Disease, Back Pain - Past Surgical History Surgical History: Cholecystectomy, Ortho Surgery Additional Surgical History: Right foot I&D - Family History Family Medical History: Diabetes Mellitus, Hypertension - Social History Does patient currently use any type of tobacco product: No Have you used tobacco products in the last 12 months: No Type of Tobacco Use: None Does any household member use tobacco: No Alcohol Use: None Drug Use: None - Medications Home Medications: codeine Allergy (Verified 01/02/18 00:55) morphine Allergy (Verified 01/02/18 00:55) - Review of Systems Constitutional: Weakness Eyes: No Symptoms Reported ENT: No Symptoms Reported Respiratory: No Symptoms Reported Cardiovascular: No Symptoms Reported. denies: Edema Gastrointestinal: Nausea, Vomiting Genitourinary: No Symptoms Reported Musculoskeletal: No Symptoms Reported Skin: No Symptoms Reported Neurological: Weakness - Physical Exam Vital Signs: Temperature 98.2 F Pulse Rate [Apical] 119 Pulse Rate 131 Respiratory Rate 17 Blood Pressure [Right Arm] 224/122 Blood Pressure [Left Arm] 103/63 Blood Pressure [Left Radial 160/102 Artery] Blood Pressure 119/85 O2 Sat by Pulse Oximetry 99 Oriented: Person Eyes: Normal Ear: Normal Nose: Normal Throat: Dry Respiratory: RLL Diminished, LLL Diminished Cardiovascular: Tachycardia : Normal Auscultation: Bowel Sounds: Increased Tenderness: Epigastric Skin: Decreased Turgur Musculoskeletal: Normal Speech Pattern: Appropriate, Slurred (APPEARS SEDATED) - Assessment/Plan (1) Intractable nausea and vomiting Status: Acute Plan: ADMIT ICU, HYDRATION BLOOD SUGAR CONTROL, SSI. STRICT I & OS, NPO. BP CONTROL, CARDIAC MONITORING, ACETONE. ABG ON ADMISSION, CXR. NAUSEA CONTROL, VERIFY HOME MEDS. EKG ON ADMISSION, UA (2) Chronic kidney disease Qualifiers: Chronic kidney disease stage: stage 3 (moderate) Qualified Code(s): N18.3 - Chronic kidney disease, stage 3 (moderate) Status: Acute (3) Gastroparesis Status: Acute (4) Diabetes mellitus type 1 Qualifiers: Diabetes mellitus complication status: with hyperglycemia Status: Chronic (5) GERD (gastroesophageal reflux disease) Qualifiers: Esophagitis presence: esophagitis presence not specified Qualified Code(s) : K21.9 - Gastro-esophageal reflux disease without esophagitis Status: Chronic - Allergies Allergies/Adverse Reactions: Allergies Allergy/AdvReac Type Severity Reaction Status Date / Time codeine Allergy Verified 01/02/18 00:55 morphine Allergy Verified 01/02/18 00:55
[2018-02-17] MEDS ORDERED: NS 250 ML IV 250 ML IV ONE (13:40)
[2018-02-17] MEDS ORDERED: LOPRESSOR TAB 50 MG PO SCH (14:00)
[2018-02-17] MEDS ORDERED: LOPRESSOR TAB 25 MG ONE (14:10)
[2018-02-17] MEDS: LOPRESSOR TAB 25 MG PO SCH ×2 (14:13→21:50)
[2018-02-17 14:26] LABS: ALANINE AMINOTRANSFERASE 22 Units/L (12-78); ALBUMIN 3.8 g/dL (3.4-5.0); ALKALINE PHOSPHATASE 88 Units/L (46-116); ASPARTATE AMINO TRANSFERASE 15 Units/L (15-37); BLOOD UREA NITROGEN 27 mg/dL (7-18); CALCIUM 8.9 mg/dL (8.5-10.1); CARBON DIOXIDE 31.9 mmol/L (21-32); CHLORIDE 101 mmol/L (98-107); COR NA(FOR HYPERGLY) 145 mmol/L (136-145); CREATININE 1.47 mg/dL (0.70-1.30); SODIUM 142 mmol/L (136-145); TOTAL PROTEIN 8.2 g/dL (6.4-8.2); eGFR NON BLACK RACES 55 (>60)
[2018-02-17 14:27] LABS: LACTIC ACID 1.4 mmol/L (0.4-2.0)
[2018-02-17] MEDS: MAALOX or MYLANTA PO PRN (19:15)
[2018-02-17 19:39] LABS: CKMB % 2.4 % (<4); CREATINE KINASE 154 Units/L (39-308); CREATINE KINASE MB 3.7 ng/mL (0-4.0); TROPONIN I < 0.02 ng/mL (0-1.5)
[2018-02-17] MEDS: SNACK - Diabetic Appropriate PO SCH (20:00)
[2018-02-17] MEDS: DEMEROL INJ IVP PRN (22:22)
[2018-02-18] MEDS: DEMEROL INJ IVP PRN ×5 (02:23→18:01)
[2018-02-18] MEDS: MAALOX or MYLANTA PO PRN ×3 (03:35→20:10)
[2018-02-18 03:38] LABS: BASOPHILS # (AUTO) 0.1 X10^3/uL (0.0-0.1); BASOPHILS % (AUTO) 0.6 % (0.2-1.0); HEMATOCRIT 32.8 % (42.0-54.0); LYMPHOCYTES # (AUTO) 1.4 X10^3/uL (1.3-2.9); LYMPHOCYTES % (AUTO) 7.7 % (21.0-51.0); MEAN CORPUSCULAR HEMOGLOBIN 27.4 pg (27.0-34.0); MEAN CORPUSCULAR HGB CONC 33.5 g/dL (33.0-35.0); MEAN CORPUSCULAR VOLUME 81.9 fL (80.0-100.0); MEAN PLATELET VOLUME 8.5 fL (7.4-11.0); MONOCYTES # (AUTO) 1.1 x10^3/uL (0.3-0.8); MONOCYTES % (AUTO) 5.9 % (0.0-13.0); NEUTROPHILS % (AUTO) 85.8 % (42.0-75.0); PLATELET COUNT 256 X10^3/uL (150.0-450.0); RED CELL DISTRIBUTION WIDTH 13.3 % (11.6-16.5); WHITE BLOOD COUNT 18.6 X10^3/uL (3.6-10.0)
[2018-02-18 03:50] LABS: ALANINE AMINOTRANSFERASE 18 Units/L (12-78); ALKALINE PHOSPHATASE 67 Units/L (46-116); ASPARTATE AMINO TRANSFERASE 14 Units/L (15-37); BLOOD UREA NITROGEN 25 mg/dL (7-18); CALCIUM 7.9 mg/dL (8.5-10.1); CARBON DIOXIDE 27.6 mmol/L (21-32); CHLORIDE 103 mmol/L (98-107); COR CA(FOR HYPOALB) 8.7 mg/dL (8.5-10.1); COR NA(FOR HYPERGLY) 142 mmol/L (136-145); CREATININE 1.19 mg/dL (0.70-1.30); SODIUM 140 mmol/L (136-145); TOTAL PROTEIN 6.6 g/dL (6.4-8.2); eGFR NON BLACK RACES > 60 (>60)
[2018-02-18] MEDS: NS 1000 ML 1,000 ML IV SCH ×4 (03:51→21:07)
[2018-02-18 04:02] LABS: CKMB % 2.2 % (<4); CREATINE KINASE 111 Units/L (39-308); CREATINE KINASE MB 2.4 ng/mL (0-4.0); TROPONIN I < 0.02 ng/mL (0-1.5)
[2018-02-18] MEDS: LOPRESSOR TAB 25 MG PO SCH ×2 (08:16→22:02)
[2018-02-18] MEDS: CHECK PATCH XX SCH ×2 (08:16→22:02)
[2018-02-18 08:56] LABS: BILIRUBIN,URINE NEGATIVE (NEGATIVE); BLOOD/HEMOGLOBIN,URINE 1+ (NEGATIVE); GLUCOSE, URINE 4+ (NEGATIVE); KETONES,URINE 3+ (NEGATIVE); LEUKOCYTE ESTERASE ,URINE NEGATIVE (NEGATIVE); NITRITES,URINE NEGATIVE (NEGATIVE); PROTEIN,URINE 2+ (NEGATIVE); UROBILINOGEN,URINE NORMAL (NORMAL)
[2018-02-18 09:08] LABS: APPEARANCE,URINE CLEAR (CLEAR); BACTERIA,URINE TRACE /HPF (NEGATIVE); COLOR,URINE YELLOW (YELLOW); RBC,URINE 0-2 /HPF (NONE SEEN); SQUAMOUS EPITHELIAL CELL,UR RARE /HPF (NEGATIVE)
[2018-02-18] MEDS: LEVAQUIN PREMIX IV 500 MG 500 MG/100 ML BAG IV SCH (09:09)
--- NOTE | 2018-02-18 09:09 | RAD ---
HISTORY: Abdomen pain, nausea and vomiting Study: KUB Comparison: 10/29/2017. Findings: There is retained contrast material present within the colon. No evidence of bowel obstruction is see n. There are surgical clips from cholecystectomy. No opaque stone is seen. Osseous structures are int act. IMPRESSION: No acute abdominal abnormality seen. Reported By:
[2018-02-18 09:12] LABS: CKMB % 2.2 % (<4); CREATINE KINASE 136 Units/L (39-308); TROPONIN I < 0.02 ng/mL (0-1.5)
[2018-02-18 09:47] VITALS: BMI 23.0
[2018-02-18] MEDS: HumuLIN R SUBCUT PRN ×3 (10:00→17:58)
[2018-02-18] MEDS: PROTONIX TAB 40 MG PO SCH ×2 (10:56→22:01)
[2018-02-18] MEDS: PEPCID TAB 20 MG PO SCH ×2 (10:56→22:01)
[2018-02-18] MEDS: CARAFATE PO SCH ×3 (12:25→22:01)
[2018-02-18] MEDS: APRESOLINE INJ 20 MG VIAL IVP PRN (16:07)
[2018-02-18] MEDS: SNACK - Diabetic Appropriate PO SCH (19:45)
[2018-02-18] MEDS: PHENERGAN INJ 25 MG IVP PRN (21:06)
[2018-02-19] MEDS: DEMEROL INJ IVP PRN ×5 (02:05→20:01)
[2018-02-19] MEDS: APRESOLINE INJ 20 MG VIAL IVP PRN ×2 (03:06→23:09)
[2018-02-19] MEDS: NS 1000 ML 1,000 ML IV SCH ×3 (04:30→22:01)
[2018-02-19] MEDS: MAALOX or MYLANTA PO PRN ×5 (05:05→23:03)
[2018-02-19 05:30] LABS: BASOPHILS % (AUTO) 0.3 % (0.2-1.0); EOSINOPHILS % (AUTO) 0.1 % (0.9-2.9); HEMATOCRIT 34.4 % (42.0-54.0); HEMOGLOBIN 11.6 g/dL (13.5-18.0); LYMPHOCYTES # (AUTO) 1.5 X10^3/uL (1.3-2.9); LYMPHOCYTES % (AUTO) 13.6 % (21.0-51.0); MEAN CORPUSCULAR HEMOGLOBIN 27.7 pg (27.0-34.0); MEAN CORPUSCULAR HGB CONC 33.8 g/dL (33.0-35.0); MEAN CORPUSCULAR VOLUME 81.9 fL (80.0-100.0); MEAN PLATELET VOLUME 8.6 fL (7.4-11.0); MONOCYTES # (AUTO) 0.8 x10^3/uL (0.3-0.8); MONOCYTES % (AUTO) 6.8 % (0.0-13.0); NEUTROPHILS % (AUTO) 79.2 % (42.0-75.0); PLATELET COUNT 277 X10^3/uL (150.0-450.0); RED CELL DISTRIBUTION WIDTH 12.9 % (11.6-16.5); WHITE BLOOD COUNT 11.4 X10^3/uL (3.6-10.0)
[2018-02-19 05:49] LABS: ALANINE AMINOTRANSFERASE 17 Units/L (12-78); ALBUMIN 3.1 g/dL (3.4-5.0); ALKALINE PHOSPHATASE 68 Units/L (46-116); ASPARTATE AMINO TRANSFERASE 13 Units/L (15-37); BLOOD UREA NITROGEN 14 mg/dL (7-18); CARBON DIOXIDE 21.2 mmol/L (21-32); CHLORIDE 100 mmol/L (98-107); COR CA(FOR HYPOALB) 8.7 mg/dL (8.5-10.1); COR NA(FOR HYPERGLY) 135 mmol/L (136-145); CREATININE 0.93 mg/dL (0.70-1.30); SODIUM 134 mmol/L (136-145); TOTAL PROTEIN 6.9 g/dL (6.4-8.2); eGFR NON BLACK RACES > 60 (>60)
[2018-02-19] MEDS: CARAFATE PO SCH ×4 (06:14→20:00)
[2018-02-19] MEDS: PEPCID TAB 20 MG PO SCH ×2 (08:22→20:00)
[2018-02-19] MEDS: PROTONIX TAB 40 MG PO SCH ×2 (08:22→20:00)
[2018-02-19] MEDS: LEVAQUIN PREMIX IV 500 MG 500 MG/100 ML BAG IV SCH (08:22)
[2018-02-19] MEDS: LOPRESSOR TAB 25 MG PO SCH ×2 (08:22→20:00)
[2018-02-19] MEDS: CHECK PATCH XX SCH ×2 (08:26→20:25)
[2018-02-19] MEDS: HumuLIN R SUBCUT PRN ×3 (10:05→17:24)
--- NOTE | 2018-02-19 17:26 | PCM.PROG ---
Progress Note - Progress Note for Day of Date of Exam: 02/18/18 - Subjective Subjective: 45 BM ADMITTED ON 02/17 WITH N/V, ELEVATED GLUCOSE, DEHYDRATION. PT AWAKE AND ALERT THIS AM, ACETONE SMALL, PT ASKING FOR DIET ADVANCEMENT, STATES EPIGASTRIC PAIN AFTER EATING. PT DENIES VOMITING THIS AM. PT BLOOD PRESSURE CONTINUES TO BE IRREGULAR PER NURSING STAFF, ELEVATED WITH CO PAIN. PT CURRENTLY ON METOPROLOL WITH IMPROVING TACHYCARDIA. KUB W/O ACUTE FINDINGS. WILL CONTINUE IV HYDRATION, GLUCOSE CONTROL, REPEAT AM LABS AND ENCOURAGE ORAL HYDRATION. PPI AND CARAFATE PT CURRENTLY ON IV LEVAQUIN, 12 LEAD EKG ORDERED. - Past Medical Family Social History Past Med/Fam/Surg Hx: No changes since H&P Allergies: Allergies codeine Allergy (Verified 01/02/18 00:55) morphine Allergy (Verified 01/02/18 00:55) - Review of Systems ROS: No change since H&P - Vital Signs and I&O's Vital Signs: Temperature 98.2 F Pulse Rate [Apical] 93 Pulse Rate 131 Respiratory Rate 15 Blood Pressure [Right Arm] 163/81 Blood Pressure [Left Arm] 142/65 Blood Pressure [Left Radial 160/102 Artery] Blood Pressure 119/85 O2 Sat by Pulse Oximetry 100 Intake and Output: Intake & Output 02/17/18 02/18/18 02/19/18 02/20/18 11:59 11:59 11:59 11:59 Intake Total 193 / 193 4599 / 4599 4276 / 4276 1520 / 1520 Output Total 200 / 200 925 / 925 3600 / 3600 700 / 700 Balance -7 / -7 3674 / 3674 676 / 676 820 / 820 - Physical Exam Oriented: Person Eyes: Normal Ear: Normal Nose: Normal Throat: Dry Respiratory: Diminished Cardiovascular: Tachycardia : Normal Auscultation: Bowel Sounds: Increased Tenderness: Epigastric Skin: Decreased Turgur Musculoskeletal: Normal Speech Pattern: Clear - Laboratory and Diagnostics Result Diagrams: 02/19/18 05:02 02/19/18 05:02 Labs: Laboratory WBC 11.4 X10^3/uL (3.6-10.0) H 02/19/18 05:02 RBC 4.20 X10^6/uL (4.7-6.0) L 02/19/18 05:02 Hgb 11.6 g/dL (13.5-18.0) L 02/19/18 05:02 Hct 34.4 % (42.0-54.0) L 02/19/18 05:02 MCV 81.9 fL (80.0-100.0) 02/19/18 05:02 MCH 27.7 pg (27.0-34.0) 02/19/18 05:02 MCHC 33.8 g/dL (33.0-35.0) 02/19/18 05:02 RDW 12.9 % (11.6-16.5) 02/19/18 05:02 Plt Count 277 X10^3/uL (150.0-450.0) 02/19/18 05:02 MPV 8.6 fL (7.4-11.0) 02/19/18 05:02 Neut % (Auto) 79.2 % (42.0-75.0) H 02/19/18 05:02 Lymph % (Auto) 13.6 % (21.0-51.0) L 02/19/18 05:02 [place] % (Auto) 6.8 % (0.0-13.0) 02/19/18 05:02 Eos % (Auto) 0.1 % (0.9-2.9) L 02/19/18 05:02 Baso % (Auto) 0.3 % (0.2-1.0) 02/19/18 05:02 Neut # (Auto) 9.0 x10^3/uL (2.2-4.8) H 02/19/18 05:02 Lymph # (Auto) 1.5 X10^3/uL (1.3-2.9) 02/19/18 05:02 [place] # (Auto) 0.8 x10^3/uL (0.3-0.8) 02/19/18 05:02 Eos # (Auto) 0.0 x10^3/uL (0.0-0.2) 02/19/18 05:02 Baso # (Auto) 0.0 X10^3/uL (0.0-0.1) 02/19/18 05:02 Absolute Nucleated RBC 0.0 /100WBC 02/19/18 05:02 Sample Site Rr 02/17/18 10:35 ABG pH 7.510 (7.35-7.45) H 02/17/18 10:35 ABG pCO2 43.0 mmHg (35.0-45.0) 02/17/18 10:35 ABG pO2 92.0 mmHg (80.0-100.0) 02/17/18 10:35 ABG HCO3 34.3 mmol/L (22-26) H* 02/17/18 10:35 ABG O2 Saturation 98.0 % (90-100) 02/17/18 10:35 ABG Base Excess 10.2 mmol/L (-2.0-2.0) H 02/17/18 10:35 Wang Test Pos 02/17/18 10:35 A-a Gradient 4.0 mmHg 02/17/18 10:35 FiO2 21 02/17/18 10:35 Blood Gas Comments Pt isabel well llj 02/17/18 10:35 Sodium 134 mmol/L (136-145) L 02/19/18 05:02 Corrected Sodium 135 mmol/L (136-145) L 02/19/18 05:02 Potassium 3.9 mmol/L (3.5-5.1) 02/19/18 05:02 Chloride 100 mmol/L (98-107) 02/19/18 05:02 Carbon Dioxide 21.2 mmol/L (21-32) 02/19/18 05:02 BUN 14 mg/dL (7-18) 02/19/18 05:02 Creatinine 0.93 mg/dL (0.70-1.30) 02/19/18 05:02 Est GFR (MDRD) Af Amer > 60 (>60) 02/19/18 05:02 Est GFR (MDRD) Non-Af > 60 (>60) 02/19/18 05:02 Glucose 148 mg/dL (65-99) H 02/19/18 05:02 POC Glucose (mg/dL) 176 mg/dL (65-99) H 02/19/18 17:16 Lactic Acid 1.4 mmol/L (0.4-2.0) 02/17/18 13:50 Calcium 8.0 mg/dL (8.5-10.1) L 02/19/18 05:02 Corrected Calcium 8.7 mg/dL (8.5-10.1) 02/19/18 05:02 Total Bilirubin 0.50 mg/dL (0.2-1.0) 02/19/18 05:02 AST 13 Units/L (15-37) L 02/19/18 05:02 ALT 17 Units/L (12-78) 02/19/18 05:02 Alkaline Phosphatase 68 Units/L (46-116) 02/19/18 05:02 Creatine Kinase 136 Units/L (39-308) 02/18/18 08:40 CK-MB (CK-2) 3.0 ng/mL (0-4.0) 02/18/18 08:40 CK/CKMB % Calc 2.2 % (<4) 02/18/18 08:40 Troponin I < 0.02 ng/mL (0-1.5) 02/18/18 08:40 Total Protein 6.9 g/dL (6.4-8.2) 02/19/18 05:02 Albumin 3.1 g/dL (3.4-5.0) L 02/19/18 05:02 Globulin 3.8 g/dL (2.5-4.5) 02/19/18 05:02 Albumin/Globulin Ratio 0.8 Ratio (1.1-2.1) L 02/19/18 05:02 Amylase 84 Units/L (25-115) 02/16/18 23:15 Lipase 112 Units/L (73-393) 02/16/18 23:15 Specimen Type Clean catch urine 02/18/18 08:40 Urine Color Yellow (YELLOW) 02/18/18 08:40 Urine Appearance Clear (CLEAR) 02/18/18 08:40 Urine pH 7.0 (5.0 - 8.0) 02/18/18 08:40 Ur Specific [place] 1.010 (1.000-1.030) 02/18/18 08:40 Urine Protein 2+ (NEGATIVE) 02/18/18 08:40 Urine Glucose (UA) 4+ (NEGATIVE) 02/18/18 08:40 Urine Ketones 3+ (NEGATIVE) 02/18/18 08:40 Urine Occult Blood 1+ (NEGATIVE) 02/18/18 08:40 Urine Nitrite Negative (NEGATIVE) 02/18/18 08:40 Urine Bilirubin Negative (NEGATIVE) 02/18/18 08:40 Urine Urobilinogen Normal (NORMAL) 02/18/18 08:40 Ur Leukocyte Esterase Negative (NEGATIVE) 02/18/18 08:40 Urine RBC 0-2 /HPF (NONE SEEN) 02/18/18 08:40 Urine WBC 0-2 /HPF (NONE SEEN) 02/18/18 08:40 Ur Squamous Epith Cells Rare /HPF (NEGATIVE) 02/18/18 08:40 Urine Bacteria Trace /HPF (NEGATIVE) 02/18/18 08:40 Ur Culture Indicated? No/not indicated 02/18/18 08:40 Acetone, Semi-Quant Small (NEGATIVE) H 02/19/18 08:45 - Plan (1) Intractable nausea and vomiting Status: Acute Plan: HYDRATION BLOOD SUGAR CONTROL, SSI. STRICT I & OS, CLEAR LIQUIDS, ADVANCE TOLERATE. BP CONTROL, CARDIAC MONITORING, ACETONE. ABG ON ADMISSION , CXR. NAUSEA CONTROL, PPI, CARAFATE (2) Chronic kidney disease Status: Acute Qualifiers: Chronic kidney disease stage: stage 3 (moderate) Qualified Code(s): N18.3 - Chronic kidney disease, stage 3 (moderate) (3) Gastroparesis Status: Acute (4) Diabetes mellitus type 1 Status: Chronic Qualifiers: Diabetes mellitus complication status: with hyperglycemia (5) GERD (gastroesophageal reflux disease) Status: Chronic Qualifiers: Esophagitis presence: esophagitis presence not specified Qualified Code(s) : K21.9 - Gastro-esophageal reflux disease without esophagitis
--- NOTE | 2018-02-19 17:31 | PCM.PROG ---
Progress Note - Progress Note for Day of Date of Exam: 02/19/18 - Subjective Subjective: 45 BM ADMITTED ON 02/17 WITH N/V, ELEVATED GLUCOSE, DEHYDRATION. PT AWAKE AND ALERT THIS AM, ACETONE SMALL, PT ASKING FOR DIET ADVANCEMENT, STATES EPIGASTRIC PAIN AFTER EATING. PT DENIES VOMITING THIS AM. PT BLOOD PRESSURE CONTINUES TO BE IRREGULAR PER NURSING STAFF, ELEVATED WITH CO PAIN. RESTARTED HOME DOSE LOSARTAN AND BASAL INSULIN AT 30 UNITS. PT CURRENTLY ON METOPROLOL WITH NSR THIS AM. KUB IN THE AM. WILL CONTINUE IV HYDRATION, GLUCOSE CONTROL, REPEAT AM LABS AND ENCOURAGE ORAL HYDRATION. PPI AND CARAFATE PT CURRENTLY ON IV LEVAQUIN WITH IMPROVE WBC, 11.4 - Past Medical Family Social History Past Med/Fam/Surg Hx: No changes since H&P Allergies: Allergies codeine Allergy (Verified 01/02/18 00:55) morphine Allergy (Verified 01/02/18 00:55) - Review of Systems ROS: No change since H&P - Vital Signs and I&O's Vital Signs: Temperature 98.2 F Pulse Rate [Apical] 93 Pulse Rate 131 Respiratory Rate 15 Blood Pressure [Right Arm] 163/81 Blood Pressure [Left Arm] 142/65 Blood Pressure [Left Radial 160/102 Artery] Blood Pressure 119/85 O2 Sat by Pulse Oximetry 100 Intake and Output: Intake & Output 02/17/18 02/18/18 02/19/18 02/20/18 11:59 11:59 11:59 11:59 Intake Total 193 / 193 4599 / 4599 4276 / 4276 1520 / 1520 Output Total 200 / 200 925 / 925 3600 / 3600 700 / 700 Balance -7 / -7 3674 / 3674 676 / 676 820 / 820 - Physical Exam Oriented: Normal Eyes: Normal Ear: Normal Nose: Normal Throat: Dry Respiratory: Diminished Cardiovascular: Tachycardia : Normal Auscultation: Bowel Sounds: Increased Tenderness: Epigastric Skin: Decreased Turgur Musculoskeletal: Normal Speech Pattern: Clear - Laboratory and Diagnostics Result Diagrams: 02/19/18 05:02 02/19/18 05:02 Labs: Laboratory WBC 11.4 X10^3/uL (3.6-10.0) H 02/19/18 05:02 RBC 4.20 X10^6/uL (4.7-6.0) L 02/19/18 05:02 Hgb 11.6 g/dL (13.5-18.0) L 02/19/18 05:02 Hct 34.4 % (42.0-54.0) L 02/19/18 05:02 MCV 81.9 fL (80.0-100.0) 02/19/18 05:02 MCH 27.7 pg (27.0-34.0) 02/19/18 05:02 MCHC 33.8 g/dL (33.0-35.0) 02/19/18 05:02 RDW 12.9 % (11.6-16.5) 02/19/18 05:02 Plt Count 277 X10^3/uL (150.0-450.0) 02/19/18 05:02 MPV 8.6 fL (7.4-11.0) 02/19/18 05:02 Neut % (Auto) 79.2 % (42.0-75.0) H 02/19/18 05:02 Lymph % (Auto) 13.6 % (21.0-51.0) L 02/19/18 05:02 [place] % (Auto) 6.8 % (0.0-13.0) 02/19/18 05:02 Eos % (Auto) 0.1 % (0.9-2.9) L 02/19/18 05:02 Baso % (Auto) 0.3 % (0.2-1.0) 02/19/18 05:02 Neut # (Auto) 9.0 x10^3/uL (2.2-4.8) H 02/19/18 05:02 Lymph # (Auto) 1.5 X10^3/uL (1.3-2.9) 02/19/18 05:02 [place] # (Auto) 0.8 x10^3/uL (0.3-0.8) 02/19/18 05:02 Eos # (Auto) 0.0 x10^3/uL (0.0-0.2) 02/19/18 05:02 Baso # (Auto) 0.0 X10^3/uL (0.0-0.1) 02/19/18 05:02 Absolute Nucleated RBC 0.0 /100WBC 02/19/18 05:02 Sample Site Rr 02/17/18 10:35 ABG pH 7.510 (7.35-7.45) H 02/17/18 10:35 ABG pCO2 43.0 mmHg (35.0-45.0) 02/17/18 10:35 ABG pO2 92.0 mmHg (80.0-100.0) 02/17/18 10:35 ABG HCO3 34.3 mmol/L (22-26) H* 02/17/18 10:35 ABG O2 Saturation 98.0 % (90-100) 02/17/18 10:35 ABG Base Excess 10.2 mmol/L (-2.0-2.0) H 02/17/18 10:35 Wang Test Pos 02/17/18 10:35 A-a Gradient 4.0 mmHg 02/17/18 10:35 FiO2 21 02/17/18 10:35 Blood Gas Comments Pt isabel well llj 02/17/18 10:35 Sodium 134 mmol/L (136-145) L 02/19/18 05:02 Corrected Sodium 135 mmol/L (136-145) L 02/19/18 05:02 Potassium 3.9 mmol/L (3.5-5.1) 02/19/18 05:02 Chloride 100 mmol/L (98-107) 02/19/18 05:02 Carbon Dioxide 21.2 mmol/L (21-32) 02/19/18 05:02 BUN 14 mg/dL (7-18) 02/19/18 05:02 Creatinine 0.93 mg/dL (0.70-1.30) 02/19/18 05:02 Est GFR (MDRD) Af Amer > 60 (>60) 02/19/18 05:02 Est GFR (MDRD) Non-Af > 60 (>60) 02/19/18 05:02 Glucose 148 mg/dL (65-99) H 02/19/18 05:02 POC Glucose (mg/dL) 176 mg/dL (65-99) H 02/19/18 17:16 Lactic Acid 1.4 mmol/L (0.4-2.0) 02/17/18 13:50 Calcium 8.0 mg/dL (8.5-10.1) L 02/19/18 05:02 Corrected Calcium 8.7 mg/dL (8.5-10.1) 02/19/18 05:02 Total Bilirubin 0.50 mg/dL (0.2-1.0) 02/19/18 05:02 AST 13 Units/L (15-37) L 02/19/18 05:02 ALT 17 Units/L (12-78) 02/19/18 05:02 Alkaline Phosphatase 68 Units/L (46-116) 02/19/18 05:02 Creatine Kinase 136 Units/L (39-308) 02/18/18 08:40 CK-MB (CK-2) 3.0 ng/mL (0-4.0) 02/18/18 08:40 CK/CKMB % Calc 2.2 % (<4) 02/18/18 08:40 Troponin I < 0.02 ng/mL (0-1.5) 02/18/18 08:40 Total Protein 6.9 g/dL (6.4-8.2) 02/19/18 05:02 Albumin 3.1 g/dL (3.4-5.0) L 02/19/18 05:02 Globulin 3.8 g/dL (2.5-4.5) 02/19/18 05:02 Albumin/Globulin Ratio 0.8 Ratio (1.1-2.1) L 02/19/18 05:02 Amylase 84 Units/L (25-115) 02/16/18 23:15 Lipase 112 Units/L (73-393) 02/16/18 23:15 Specimen Type Clean catch urine 02/18/18 08:40 Urine Color Yellow (YELLOW) 02/18/18 08:40 Urine Appearance Clear (CLEAR) 02/18/18 08:40 Urine pH 7.0 (5.0 - 8.0) 02/18/18 08:40 Ur Specific [place] 1.010 (1.000-1.030) 02/18/18 08:40 Urine Protein 2+ (NEGATIVE) 02/18/18 08:40 Urine Glucose (UA) 4+ (NEGATIVE) 02/18/18 08:40 Urine Ketones 3+ (NEGATIVE) 02/18/18 08:40 Urine Occult Blood 1+ (NEGATIVE) 02/18/18 08:40 Urine Nitrite Negative (NEGATIVE) 02/18/18 08:40 Urine Bilirubin Negative (NEGATIVE) 02/18/18 08:40 Urine Urobilinogen Normal (NORMAL) 02/18/18 08:40 Ur Leukocyte Esterase Negative (NEGATIVE) 02/18/18 08:40 Urine RBC 0-2 /HPF (NONE SEEN) 02/18/18 08:40 Urine WBC 0-2 /HPF (NONE SEEN) 02/18/18 08:40 Ur Squamous Epith Cells Rare /HPF (NEGATIVE) 02/18/18 08:40 Urine Bacteria Trace /HPF (NEGATIVE) 02/18/18 08:40 Ur Culture Indicated? No/not indicated 02/18/18 08:40 Acetone, Semi-Quant Small (NEGATIVE) H 02/19/18 08:45 - Plan (1) Intractable nausea and vomiting Status: Acute Plan: HYDRATION BLOOD SUGAR CONTROL, SSI. STRICT I & OS, ADVANCE TOLERATE, BLAND. BP CONTROL, CARDIAC MONITORING, ACETONE. ABG ON ADMISSION, KUB Q AM. NAUSEA CONTROL, PPI, CARAFAT, RESTART LOSARTAN AND BASAL INSULIN (2) Chronic kidney disease Status: Acute Qualifiers: Chronic kidney disease stage: stage 3 (moderate) Qualified Code(s): N18.3 - Chronic kidney disease, stage 3 (moderate) (3) Gastroparesis Status: Acute (4) Diabetes mellitus type 1 Status: Chronic Qualifiers: Diabetes mellitus complication status: with hyperglycemia (5) GERD (gastroesophageal reflux disease) Status: Chronic Qualifiers: Esophagitis presence: esophagitis presence not specified Qualified Code(s) : K21.9 - Gastro-esophageal reflux disease without esophagitis
[2018-02-19] MEDS: COZAAR PO SCH (18:12)
[2018-02-19] MEDS: PHENERGAN INJ 25 MG IVP PRN (19:53)
[2018-02-19] MEDS: SNACK - Diabetic Appropriate PO SCH (19:58)
[2018-02-19] MEDS ORDERED: INSULIN GLARGINE SUB-Q SCH ×2 (21:00)
[2018-02-19] MEDS: TOUJEO SOLOSTAR PEN SC SCH (21:23)
[2018-02-20] MEDS: DEMEROL INJ IVP PRN ×6 (02:12→23:08)
[2018-02-20] MEDS: MAALOX or MYLANTA PO PRN ×2 (04:01→19:21)
[2018-02-20 04:52] LABS: BASOPHILS % (AUTO) 0.7 % (0.2-1.0); EOSINOPHILS % (AUTO) 0.1 % (0.9-2.9); HEMATOCRIT 32.7 % (42.0-54.0); HEMOGLOBIN 11.2 g/dL (13.5-18.0); LYMPHOCYTES # (AUTO) 1.5 X10^3/uL (1.3-2.9); LYMPHOCYTES % (AUTO) 22.3 % (21.0-51.0); MEAN CORPUSCULAR HEMOGLOBIN 27.6 pg (27.0-34.0); MEAN CORPUSCULAR HGB CONC 34.3 g/dL (33.0-35.0); MEAN CORPUSCULAR VOLUME 80.5 fL (80.0-100.0); MONOCYTES # (AUTO) 0.6 x10^3/uL (0.3-0.8); MONOCYTES % (AUTO) 8.7 % (0.0-13.0); NEUTROPHILS # (AUTO) 4.5 x10^3/uL (2.2-4.8); NEUTROPHILS % (AUTO) 68.2 % (42.0-75.0); PLATELET COUNT 275 X10^3/uL (150.0-450.0); RED BLOOD COUNT 4.06 X10^6/uL (4.7-6.0); RED CELL DISTRIBUTION WIDTH 13.1 % (11.6-16.5); WHITE BLOOD COUNT 6.5 X10^3/uL (3.6-10.0)
[2018-02-20 05:06] LABS: ALANINE AMINOTRANSFERASE 16 Units/L (12-78); ALKALINE PHOSPHATASE 67 Units/L (46-116); ASPARTATE AMINO TRANSFERASE 13 Units/L (15-37); BLOOD UREA NITROGEN 11 mg/dL (7-18); CALCIUM 8.2 mg/dL (8.5-10.1); CARBON DIOXIDE 23.4 mmol/L (21-32); CHLORIDE 99 mmol/L (98-107); COR NA(FOR HYPERGLY) 134 mmol/L (136-145); CREATININE 0.88 mg/dL (0.70-1.30); SODIUM 133 mmol/L (136-145); TOTAL PROTEIN 6.8 g/dL (6.4-8.2); eGFR NON BLACK RACES > 60 (>60)
[2018-02-20] MEDS ORDERED: K-LYTE EFFERVESCENT PO PRN (05:30)
[2018-02-20] MEDS ORDERED: K-RIDER 10 MEQ/NS 100 ML 10 MEQ/100 ML BAG IV PRN (05:30)
[2018-02-20] MEDS ORDERED: POTASSIUM CHLORIDE LIQ 20 MEQ UDC PO PRN (05:30)
[2018-02-20] MEDS ORDERED: POTASSIUM CHL 60 MEQ/NS 0.45% 500 ML IV PRN (05:30)
[2018-02-20] MEDS ORDERED: POTASSIUM CHL 40 MEQ/NS 0.45% 500 ML IV PRN (05:30)
[2018-02-20] MEDS: CARAFATE PO SCH ×4 (05:37→21:12)
[2018-02-20] MEDS: NS 1000 ML 1,000 ML IV SCH ×3 (05:47→21:14)
[2018-02-20] MEDS ORDERED: K-DUR TAB 20 MEQ PO ONE (05:50)
[2018-02-20] MEDS: MAGNESIUM SULFATE 1 GRAM/100 mL PREMIX 1 GM/100 ML BAG IV PRN ×2 (06:15→08:13)
--- NOTE | 2018-02-20 06:56 | RAD ---
HISTORY: Abdominal pain Study: KUB Comparison: 02/18/2018 Findings: Residual contrast present throughout the colon. The abdominal gas pattern is nonspecific and nonobstr uctive. No abnormal masses or abnormal calcifications are identified. IMPRESSION: Unremarkable KUB Reported By:
[2018-02-20] MEDS: PROTONIX TAB 40 MG PO SCH ×2 (08:03→21:12)
[2018-02-20] MEDS: COZAAR PO SCH (08:03)
[2018-02-20] MEDS: LEVAQUIN PREMIX IV 500 MG 500 MG/100 ML BAG IV SCH (08:03)
[2018-02-20] MEDS: PEPCID TAB 20 MG PO SCH ×2 (08:03→21:13)
[2018-02-20] MEDS: LOPRESSOR TAB 25 MG PO SCH ×2 (08:03→21:12)
[2018-02-20] MEDS: CHECK PATCH XX SCH ×2 (08:04→21:15)
[2018-02-20] MEDS: APRESOLINE INJ 20 MG VIAL IVP PRN (08:11)
[2018-02-20] MEDS ORDERED: NS 500 ML IV 500 ML IV ONE (08:35)
[2018-02-20] MEDS ORDERED: NS 500 ML IV 250 ML IV ONE (08:38)
[2018-02-20] MEDS: HumuLIN R SUBCUT PRN ×4 (10:30→21:13)
--- NOTE | 2018-02-20 14:53 | PCM.PROG ---
Progress Note - Progress Note for Day of Date of Exam: 02/20/18 - Subjective Subjective: 47 BM ADMITTED ON 02/17 WITH N/V, ELEVATED GLUCOSE, DEHYDRATION. PT AWAKE AND ALERT THIS AM, ACETONE SMALL, PT ASKING FOR DIET ADVANCEMENT, STATES EPIGASTRIC PAIN AFTER EATING. PT DENIES VOMITING THIS AM. PT BLOOD PRESSURE AND HEART RATE STABLE THIS. PT CURRENTLY ON TOUJEO AND SSI WITH IMPROVING BS. WILL CONTINUE IV HYDRATION, GLUCOSE CONTROL, REPEAT AM LABS AND ENCOURAGE ORAL HYDRATION. PPI AND CARAFATE PT CURRENTLY ON IV LEVAQUIN WITH IMPROVE WBC, 6.5 - Past Medical Family Social History Past Med/Fam/Surg Hx: No changes since H&P Allergies: Allergies codeine Allergy (Verified 01/02/18 00:55) morphine Allergy (Verified 01/02/18 00:55) - Review of Systems ROS: No change since H&P - Vital Signs and I&O's Vital Signs: Temperature 98.2 F Pulse Rate [Apical] 85 Pulse Rate 131 Respiratory Rate 15 Blood Pressure [Right Arm] 157/85 Blood Pressure [Left Arm] 130/78 Blood Pressure [Left Radial 160/102 Artery] Blood Pressure 119/85 O2 Sat by Pulse Oximetry 100 Intake and Output: Intake & Output 02/18/18 02/19/18 02/20/18 02/21/18 11:59 11:59 11:59 11:59 Intake Total 4599 / 4599 4276 / 4276 3860 / 3860 2125 / 2125 Output Total 925 / 925 3600 / 3600 3100 / 3100 1400 / 1400 Balance 3674 / 3674 676 / 676 760 / 760 725 / 725 - Physical Exam Oriented: Normal Eyes: Normal Ear: Normal Nose: Normal Throat: Dry Respiratory: Diminished Cardiovascular: Tachycardia : Normal Auscultation: Bowel Sounds: Increased Tenderness: Epigastric Skin: Decreased Turgur Musculoskeletal: Normal Speech Pattern: Clear - Laboratory and Diagnostics Result Diagrams: 02/20/18 04:00 02/20/18 04:00 Labs: Laboratory WBC 6.5 X10^3/uL (3.6-10.0) 02/20/18 04:00 RBC 4.06 X10^6/uL (4.7-6.0) L 02/20/18 04:00 Hgb 11.2 g/dL (13.5-18.0) L 02/20/18 04:00 Hct 32.7 % (42.0-54.0) L 02/20/18 04:00 MCV 80.5 fL (80.0-100.0) 02/20/18 04:00 MCH 27.6 pg (27.0-34.0) 02/20/18 04:00 MCHC 34.3 g/dL (33.0-35.0) 02/20/18 04:00 RDW 13.1 % (11.6-16.5) 02/20/18 04:00 Plt Count 275 X10^3/uL (150.0-450.0) 02/20/18 04:00 MPV 9.0 fL (7.4-11.0) 02/20/18 04:00 Neut % (Auto) 68.2 % (42.0-75.0) 02/20/18 04:00 Lymph % (Auto) 22.3 % (21.0-51.0) 02/20/18 04:00 [place] % (Auto) 8.7 % (0.0-13.0) 02/20/18 04:00 Eos % (Auto) 0.1 % (0.9-2.9) L 02/20/18 04:00 Baso % (Auto) 0.7 % (0.2-1.0) 02/20/18 04:00 Neut # (Auto) 4.5 x10^3/uL (2.2-4.8) 02/20/18 04:00 Lymph # (Auto) 1.5 X10^3/uL (1.3-2.9) 02/20/18 04:00 [place] # (Auto) 0.6 x10^3/uL (0.3-0.8) 02/20/18 04:00 Eos # (Auto) 0.0 x10^3/uL (0.0-0.2) 02/20/18 04:00 Baso # (Auto) 0.0 X10^3/uL (0.0-0.1) 02/20/18 04:00 Absolute Nucleated RBC 0.0 /100WBC 02/20/18 04:00 Sample Site Rr 02/17/18 10:35 ABG pH 7.510 (7.35-7.45) H 02/17/18 10:35 ABG pCO2 43.0 mmHg (35.0-45.0) 02/17/18 10:35 ABG pO2 92.0 mmHg (80.0-100.0) 02/17/18 10:35 ABG HCO3 34.3 mmol/L (22-26) H* 02/17/18 10:35 ABG O2 Saturation 98.0 % (90-100) 02/17/18 10:35 ABG Base Excess 10.2 mmol/L (-2.0-2.0) H 02/17/18 10:35 Wang Test Pos 02/17/18 10:35 A-a Gradient 4.0 mmHg 02/17/18 10:35 FiO2 21 02/17/18 10:35 Blood Gas Comments Pt isabel well llj 02/17/18 10:35 Sodium 133 mmol/L (136-145) L 02/20/18 04:00 Corrected Sodium 134 mmol/L (136-145) L 02/20/18 04:00 Potassium 3.7 mmol/L (3.5-5.1) 02/20/18 04:00 Chloride 99 mmol/L (98-107) 02/20/18 04:00 Carbon Dioxide 23.4 mmol/L (21-32) 02/20/18 04:00 BUN 11 mg/dL (7-18) 02/20/18 04:00 Creatinine 0.88 mg/dL (0.70-1.30) 02/20/18 04:00 Est GFR (MDRD) Af Amer > 60 (>60) 02/20/18 04:00 Est GFR (MDRD) Non-Af > 60 (>60) 02/20/18 04:00 Glucose 143 mg/dL (65-99) H 02/20/18 04:00 POC Glucose (mg/dL) 184 mg/dL (65-99) H 02/20/18 10:28 Lactic Acid 1.4 mmol/L (0.4-2.0) 02/17/18 13:50 Calcium 8.2 mg/dL (8.5-10.1) L 02/20/18 04:00 Corrected Calcium 9.0 mg/dL (8.5-10.1) 02/20/18 04:00 Magnesium 1.8 mg/dL (1.7-2.9) 02/20/18 04:00 Total Bilirubin 0.40 mg/dL (0.2-1.0) 02/20/18 04:00 AST 13 Units/L (15-37) L 02/20/18 04:00 ALT 16 Units/L (12-78) 02/20/18 04:00 Alkaline Phosphatase 67 Units/L (46-116) 02/20/18 04:00 Creatine Kinase 136 Units/L (39-308) 02/18/18 08:40 CK-MB (CK-2) 3.0 ng/mL (0-4.0) 02/18/18 08:40 CK/CKMB % Calc 2.2 % (<4) 02/18/18 08:40 Troponin I < 0.02 ng/mL (0-1.5) 02/18/18 08:40 Total Protein 6.8 g/dL (6.4-8.2) 02/20/18 04:00 Albumin 3.0 g/dL (3.4-5.0) L 02/20/18 04:00 Globulin 3.8 g/dL (2.5-4.5) 02/20/18 04:00 Albumin/Globulin Ratio 0.8 Ratio (1.1-2.1) L 02/20/18 04:00 Amylase 84 Units/L (25-115) 02/16/18 23:15 Lipase 112 Units/L (73-393) 02/16/18 23:15 Specimen Type Clean catch urine 02/18/18 08:40 Urine Color Yellow (YELLOW) 02/18/18 08:40 Urine Appearance Clear (CLEAR) 02/18/18 08:40 Urine pH 7.0 (5.0 - 8.0) 02/18/18 08:40 Ur Specific [place] 1.010 (1.000-1.030) 02/18/18 08:40 Urine Protein 2+ (NEGATIVE) 02/18/18 08:40 Urine Glucose (UA) 4+ (NEGATIVE) 02/18/18 08:40 Urine Ketones 3+ (NEGATIVE) 02/18/18 08:40 Urine Occult Blood 1+ (NEGATIVE) 02/18/18 08:40 Urine Nitrite Negative (NEGATIVE) 02/18/18 08:40 Urine Bilirubin Negative (NEGATIVE) 02/18/18 08:40 Urine Urobilinogen Normal (NORMAL) 02/18/18 08:40 Ur Leukocyte Esterase Negative (NEGATIVE) 02/18/18 08:40 Urine RBC 0-2 /HPF (NONE SEEN) 02/18/18 08:40 Urine WBC 0-2 /HPF (NONE SEEN) 02/18/18 08:40 Ur Squamous Epith Cells Rare /HPF (NEGATIVE) 02/18/18 08:40 Urine Bacteria Trace /HPF (NEGATIVE) 02/18/18 08:40 Ur Culture Indicated? No/not indicated 02/18/18 08:40 Acetone, Semi-Quant Small (NEGATIVE) H 02/20/18 12:00 - Plan (1) Intractable nausea and vomiting Status: Acute Plan: HYDRATION BLOOD SUGAR CONTROL, SSI AND TOUJEO. STRICT I & OS, ADVANCE TOLERATE, BLAND DIET. BP CONTROL, CARDIAC MONITORING, ACETONE. ABG ON ADMISSION, KUB THIS AM NORMAL. NAUSEA CONTROL, PPI, CARAFATE (2) Chronic kidney disease Status: Acute Qualifiers: Chronic kidney disease stage: stage 3 (moderate) Qualified Code(s): N18.3 - Chronic kidney disease, stage 3 (moderate) (3) Gastroenteritis Status: Acute (4) Gastroparesis Status: Acute (5) Diabetes mellitus type 1 Status: Chronic Qualifiers: Diabetes mellitus complication status: with hyperglycemia (6) GERD (gastroesophageal reflux disease) Status: Chronic Qualifiers: Esophagitis presence: esophagitis presence not specified Qualified Code(s) : K21.9 - Gastro-esophageal reflux disease without esophagitis
[2018-02-20] MEDS ORDERED: PERCOCET TAB 5/325 MG PO PRN (14:54)
[2018-02-20] MEDS: MILK OF MAGNESIA PO SCH (15:09)
[2018-02-20] MEDS: SNACK - Diabetic Appropriate PO SCH (20:32)
[2018-02-20] MEDS ORDERED: COLACE CAP 100 MG PO SCH (21:00)
[2018-02-20] MEDS: TOUJEO SOLOSTAR PEN SC SCH (21:14)
[2018-02-21] MEDS: APRESOLINE INJ 20 MG VIAL IVP PRN ×2 (01:21→09:13)
[2018-02-21] MEDS: HumuLIN R SUBCUT PRN ×2 (01:31→05:09)
[2018-02-21] MEDS: NS 1000 ML 1,000 ML IV SCH ×2 (03:18→05:06)
[2018-02-21] MEDS: DEMEROL INJ IVP PRN ×2 (05:07→09:03)
[2018-02-21 05:16] LABS: BASOPHILS % (AUTO) 0.7 % (0.2-1.0); EOSINOPHILS % (AUTO) 0.5 % (0.9-2.9); HEMATOCRIT 32.6 % (42.0-54.0); HEMOGLOBIN 11.5 g/dL (13.5-18.0); LYMPHOCYTES # (AUTO) 1.4 X10^3/uL (1.3-2.9); LYMPHOCYTES % (AUTO) 23.4 % (21.0-51.0); MEAN CORPUSCULAR HEMOGLOBIN 27.9 pg (27.0-34.0); MEAN CORPUSCULAR HGB CONC 35.2 g/dL (33.0-35.0); MEAN CORPUSCULAR VOLUME 79.3 fL (80.0-100.0); MEAN PLATELET VOLUME 8.2 fL (7.4-11.0); MONOCYTES # (AUTO) 0.6 x10^3/uL (0.3-0.8); MONOCYTES % (AUTO) 9.1 % (0.0-13.0); NEUTROPHILS # (AUTO) 4.1 x10^3/uL (2.2-4.8); NEUTROPHILS % (AUTO) 66.3 % (42.0-75.0); PLATELET COUNT 304 X10^3/uL (150.0-450.0); RED BLOOD COUNT 4.11 X10^6/uL (4.7-6.0); RED CELL DISTRIBUTION WIDTH 12.9 % (11.6-16.5); WHITE BLOOD COUNT 6.2 X10^3/uL (3.6-10.0)
[2018-02-21] MEDS: CARAFATE PO SCH (05:35)
[2018-02-21 05:38] LABS: ALANINE AMINOTRANSFERASE 16 Units/L (12-78); ALBUMIN 2.9 g/dL (3.4-5.0); ALKALINE PHOSPHATASE 83 Units/L (46-116); ASPARTATE AMINO TRANSFERASE 14 Units/L (15-37); BLOOD UREA NITROGEN 12 mg/dL (7-18); CALCIUM 8.2 mg/dL (8.5-10.1); CARBON DIOXIDE 27.4 mmol/L (21-32); CHLORIDE 99 mmol/L (98-107); COR CA(FOR HYPOALB) 9.1 mg/dL (8.5-10.1); COR NA(FOR HYPERGLY) 134 mmol/L (136-145); CREATININE 0.97 mg/dL (0.70-1.30); MAGNESIUM 2.1 mg/dL (1.7-2.9); SODIUM 132 mmol/L (136-145); TOTAL PROTEIN 6.3 g/dL (6.4-8.2); eGFR NON BLACK RACES > 60 (>60)
[2018-02-21] MEDS ORDERED: K-DUR TAB 20 MEQ PO ONE (05:45)
[2018-02-21] MEDS: LOPRESSOR TAB 25 MG PO SCH (09:03)
[2018-02-21] MEDS: MILK OF MAGNESIA PO SCH (09:03)
[2018-02-21] MEDS: PROTONIX TAB 40 MG PO SCH (09:04)
[2018-02-21] MEDS: COZAAR PO SCH (09:04)
[2018-02-21] MEDS: LEVAQUIN PREMIX IV 500 MG 500 MG/100 ML BAG IV SCH (09:04)
[2018-02-21] MEDS: PEPCID TAB 20 MG PO SCH (09:04)
[2018-02-21] MEDS: CHECK PATCH XX SCH (09:04)
[2018-02-21] MEDS ORDERED: LINZESS PO STA (09:50)
[2018-02-21 10:50] VITALS: BP 166/91
== END 2018-02-21 10:30 | disposition home or self-care (01) | DRG 74 ==
LOC: ER 21:10 → ICU 02-17 03:06
PROVIDERS: ADMIT Internal Medicine; ATTEND Internal Medicine
DX: R00.0 Tachycardia, unspecified; R10.13 Epigastric pain; K59.01 Slow transit constipation; E87.6 Hypokalemia; K52.9 Noninfective gastroenteritis and colitis, unspecified; N18.3 Chronic kidney disease, stage 3 (moderate); E10.43 Type 1 diabetes mellitus with diabetic autonomic (poly)neuropathy; E86.0 Dehydration; E10.22 Type 1 diabetes mellitus with diabetic chronic kidney disease; I12.9 Hypertensive chronic kidney disease with stage 1 through stage 4 chronic kidney disease, or unspecified chronic kidney disease; K21.9 Gastro-esophageal reflux disease without esophagitis; K31.84 Gastroparesis
CPT/HCPCS: 36415; 36600; 71010; 71045; 74000; 74018; 80053; 81001; 82009; 82150; 82550; 82553; 82803; 83605; 83690; 83735; 84132; 84484; 85025; 93005; 96365; 96367; 96374; 96375; 99284; 99285; A4222; J0360; J0780; J1100; J1200; J1815; J1956; J2060; J2175; J2405; J2550; J3475; J7030; J7040; J7050

== ENCOUNTER 2018-04-01 13:25 | Inpatient (IN) ==
[2018-04-01 15:03] LABS: ABG BASE EXCESS 9.1 mmol/L (-2.0-2.0)
[2018-04-01 15:04] LABS: ABG HCO3 33.5 mmol/L (22-26); FRACTIONATED INSPIRED OXYGEN 21
[2018-04-01] MEDS: NS 1000 ML 1,000 ML IV SCH ×2 (15:19→21:59)
[2018-04-01] MEDS: ZOFRAN INJ 4 MG VIAL IVP SCH ×2 (15:19→21:13)
[2018-04-01 15:30] VITALS: BMI 21.8
[2018-04-01 15:41] LABS: BASOPHILS # (AUTO) 0.1 X10^3/uL (0.0-0.1); BASOPHILS % (AUTO) 0.8 % (0.2-1.0); EOSINOPHILS % (AUTO) 0.1 % (0.9-2.9); HEMATOCRIT 39.5 % (42.0-54.0); HEMOGLOBIN 13.3 g/dL (13.5-18.0); LYMPHOCYTES # (AUTO) 1.3 X10^3/uL (1.3-2.9); LYMPHOCYTES % (AUTO) 17.1 % (21.0-51.0); MEAN CORPUSCULAR HEMOGLOBIN 27.5 pg (27.0-34.0); MEAN CORPUSCULAR HGB CONC 33.6 g/dL (33.0-35.0); MEAN CORPUSCULAR VOLUME 81.8 fL (80.0-100.0); MEAN PLATELET VOLUME 8.9 fL (7.4-11.0); MONOCYTES # (AUTO) 0.8 x10^3/uL (0.3-0.8); MONOCYTES % (AUTO) 9.9 % (0.0-13.0); NEUTROPHILS # (AUTO) 5.6 x10^3/uL (2.2-4.8); NEUTROPHILS % (AUTO) 72.1 % (42.0-75.0); PLATELET COUNT 314 X10^3/uL (150.0-450.0); RED BLOOD COUNT 4.83 X10^6/uL (4.7-6.0); WHITE BLOOD COUNT 7.8 X10^3/uL (3.6-10.0)
[2018-04-01] MEDS: DEMEROL INJ IVP PRN ×2 (15:48→21:09)
[2018-04-01 15:50] LABS: ALANINE AMINOTRANSFERASE 31 Units/L (12-78); ALBUMIN 4.4 g/dL (3.4-5.0); ALKALINE PHOSPHATASE 95 Units/L (46-116); AMYLASE 68 Units/L (25-115); ASPARTATE AMINO TRANSFERASE 21 Units/L (15-37); BLOOD UREA NITROGEN 58 mg/dL (7-18); CALCIUM 9.1 mg/dL (8.5-10.1); CARBON DIOXIDE 30.1 mmol/L (21-32); CHLORIDE 91 mmol/L (98-107); COR NA(FOR HYPERGLY) 139 mmol/L (136-145); CREATININE 1.71 mg/dL (0.70-1.30); LIPASE 115 Units/L (73-393); SODIUM 133 mmol/L (136-145); TOTAL PROTEIN 8.8 g/dL (6.4-8.2); eGFR NON BLACK RACES 46 (>60)
[2018-04-01] MEDS: HumuLIN R SUBCUT PRN ×2 (17:50→21:54)
[2018-04-01] MEDS: PHENERGAN INJ 25 MG IV PRN ×2 (18:02→21:54)
[2018-04-01 18:08] LABS: BILIRUBIN,URINE NEGATIVE (NEGATIVE); BLOOD/HEMOGLOBIN,URINE 2+ (NEGATIVE); GLUCOSE, URINE 4+ (NEGATIVE); KETONES,URINE 3+ (NEGATIVE); LEUKOCYTE ESTERASE ,URINE NEGATIVE (NEGATIVE); NITRITES,URINE NEGATIVE (NEGATIVE); PROTEIN,URINE 2+ (NEGATIVE); UROBILINOGEN,URINE NORMAL (NORMAL)
[2018-04-01 18:09] LABS: APPEARANCE,URINE CLEAR (CLEAR); COLOR,URINE YELLOW (YELLOW)
[2018-04-01 18:16] LABS: BACTERIA,URINE NEGATIVE /HPF (NEGATIVE); SQUAMOUS EPITHELIAL CELL,UR NEGATIVE /HPF (NEGATIVE)
--- NOTE | 2018-04-01 21:26 | DR.UPDATE ---
H&P Update History and Physical Update: WAS SEEN IN THE OFFICE TODAY. A H&P WAS COMPLETED PRIOR TO ADMMISISON. PATIENT HAS BEEN SEEN AND EXAMINED WITH NO CHANGES NOTED TO H&P. Changes noted: NO Yes with the following:
[2018-04-02] MEDS: ZOFRAN INJ 4 MG VIAL IVP SCH ×4 (00:50→17:19)
[2018-04-02] MEDS: DEMEROL INJ IVP PRN ×6 (00:50→21:21)
[2018-04-02] MEDS: PHENERGAN INJ 25 MG IV PRN ×3 (03:58→21:21)
[2018-04-02] MEDS: NS 1000 ML 1,000 ML IV SCH ×4 (05:32→21:28)
[2018-04-02 06:39] LABS: BASOPHILS % (AUTO) 0.6 % (0.2-1.0); EOSINOPHILS % (AUTO) 0.2 % (0.9-2.9); HEMATOCRIT 39.1 % (42.0-54.0); HEMOGLOBIN 13.4 g/dL (13.5-18.0); LYMPHOCYTES # (AUTO) 1.5 X10^3/uL (1.3-2.9); MEAN CORPUSCULAR HEMOGLOBIN 27.9 pg (27.0-34.0); MEAN CORPUSCULAR HGB CONC 34.2 g/dL (33.0-35.0); MEAN CORPUSCULAR VOLUME 81.7 fL (80.0-100.0); MEAN PLATELET VOLUME 8.7 fL (7.4-11.0); MONOCYTES # (AUTO) 0.6 x10^3/uL (0.3-0.8); MONOCYTES % (AUTO) 10.5 % (0.0-13.0); NEUTROPHILS # (AUTO) 3.9 x10^3/uL (2.2-4.8); NEUTROPHILS % (AUTO) 64.7 % (42.0-75.0); PLATELET COUNT 313 X10^3/uL (150.0-450.0); RED BLOOD COUNT 4.79 X10^6/uL (4.7-6.0); RED CELL DISTRIBUTION WIDTH 12.9 % (11.6-16.5); WHITE BLOOD COUNT 6.1 X10^3/uL (3.6-10.0)
[2018-04-02 07:08] LABS: ALANINE AMINOTRANSFERASE 31 Units/L (12-78); ALBUMIN 4.2 g/dL (3.4-5.0); ALKALINE PHOSPHATASE 93 Units/L (46-116); ASPARTATE AMINO TRANSFERASE 21 Units/L (15-37); BLOOD UREA NITROGEN 38 mg/dL (7-18); CALCIUM 8.7 mg/dL (8.5-10.1); CARBON DIOXIDE 32.1 mmol/L (21-32); CHLORIDE 98 mmol/L (98-107); CREATININE 1.34 mg/dL (0.70-1.30); SODIUM 139 mmol/L (136-145); TOTAL PROTEIN 8.7 g/dL (6.4-8.2); eGFR NON BLACK RACES > 60 (>60)
[2018-04-02] MEDS ORDERED: ZOFRAN INJ 4 MG VIAL 16 MG, ATIVAN INJ 2 MG VIAL 1 MG, DECADRON INJ 10 MG in NS 50 ML I... IV PRN (08:04)
[2018-04-02] MEDS ORDERED: CATAPRES-TTS-3 TD SCH (09:00)
--- NOTE | 2018-04-02 10:57 | PCM.PROG ---
Progress Note - Progress Note for Day of Date of Exam: 04/02/18 - Subjective Subjective: WAS ADMITTED FOR DEHYDRATION R/T INTRACTABLE NAUSEA & VOMITING, ABDOMINAL PAIN, AND HYPERGLYCEMIA. TODAY, HE IS ALERT AND ORIENTED, LYING IN BED ON MORNING ROUNDS. HE CONTINUES WITH COMPLAINTS OF NAUSEA, VOMITING, AND ABDOMINAL PAIN. HE ALSO REPORTS GENERALIZED WEAKNESS. PATIENT HAS A KNOWN HISTORY OF DIABETIC GASTROPARESIS. ON EXAMINATION, HEART IS REGULAR IN RATE AND RHYTHM. BILATERAL LUNGS ARE NOTED WITH DIMINISHED LUNG SOUNDS THROUGHOUT. ABDOMEN IS ROUND, SOFT, AND NOTED WITH MODERATE TENDERNESS TO PALPATION. HIS VITALS THIS MORNING ARE 97.9-108-20-99%-181/106. LABS WERE OBTAINED. ABNORMAL LAB VALUES INCLUDE THE FOLLOWING: HGB 13.4, HCT 39.1, CARBON DIOXIDE 32.1, BUN 38, CREATININE 1.34, TOTAL PROTEIN 8.7. HE IS CURRENTLY RECEIVING NORMAL SALINE AT 125ML/HR, PHENERGAN 12.5MG IV Q4H PRN NAUSEA AND ZOFRAN 4MG IV Q4H PRN NAUSEA. TODAY, WE WILL ORDER ZOFRAN COCKTAIL IV Q8H PRN NAUSEA AND A CATAPRES 0.3MG PATCH. WE WILL ALSO ORDER PEPCID AND PROTONIX IV BID. OTHERWISE, WE PLAN TO FOLLOW UP WITH AM LABS AND CONTINUE TO MONITOR PATIENT. - Past Medical Family Social History Past Med/Fam/Surg Hx: No changes since H&P Allergies: Allergies codeine Allergy (Verified 01/02/18 00:55) morphine Allergy (Verified 01/02/18 00:55) - Review of Systems ROS: No change since H&P - Vital Signs and I&O's Vital Signs: Temperature 97.9 F Pulse Rate [Left Brachial] 108 Respiratory Rate 20 Blood Pressure [Right Arm] 157/85 Blood Pressure [Left Arm] 181/106 Blood Pressure [Left Radial 160/102 Artery] Blood Pressure 166/91 O2 Sat by Pulse Oximetry 99 Intake and Output: Intake & Output 03/30/18 03/31/18 04/01/18 04/02/18 11:59 11:59 11:59 11:59 Intake Total 1720 / 1720 Output Total 0 / 0 Balance 1720 / 1720 - Physical Exam Oriented: Normal Eyes: Normal Ear: Normal Nose: Normal Throat: Normal Respiratory: Generalized, Diminished Cardiovascular: Tachycardia. negative: S3, S4, Murmur : Normal Auscultation: Bowel Sounds: Increased Palpation: Normal Tenderness: Diffuse, Moderate. negative: Rebound, Guarding, Rigidity Skin: Normal Musculoskeletal: Normal Psychiatric: Normal Mood Description: Calm Affect: Normal Speech Pattern: Clear, Appropriate - Laboratory and Diagnostics Result Diagrams: 04/02/18 06:15 04/02/18 06:15 Labs: Laboratory WBC 6.1 X10^3/uL (3.6-10.0) 04/02/18 06:15 RBC 4.79 X10^6/uL (4.7-6.0) 04/02/18 06:15 Hgb 13.4 g/dL (13.5-18.0) L 04/02/18 06:15 Hct 39.1 % (42.0-54.0) L 04/02/18 06:15 MCV 81.7 fL (80.0-100.0) 04/02/18 06:15 MCH 27.9 pg (27.0-34.0) 04/02/18 06:15 MCHC 34.2 g/dL (33.0-35.0) 04/02/18 06:15 RDW 12.9 % (11.6-16.5) 04/02/18 06:15 Plt Count 313 X10^3/uL (150.0-450.0) 04/02/18 06:15 MPV 8.7 fL (7.4-11.0) 04/02/18 06:15 Neut % (Auto) 64.7 % (42.0-75.0) 04/02/18 06:15 Lymph % (Auto) 24.0 % (21.0-51.0) 04/02/18 06:15 [place] % (Auto) 10.5 % (0.0-13.0) 04/02/18 06:15 Eos % (Auto) 0.2 % (0.9-2.9) L 04/02/18 06:15 Baso % (Auto) 0.6 % (0.2-1.0) 04/02/18 06:15 Neut # (Auto) 3.9 x10^3/uL (2.2-4.8) 04/02/18 06:15 Lymph # (Auto) 1.5 X10^3/uL (1.3-2.9) 04/02/18 06:15 [place] # (Auto) 0.6 x10^3/uL (0.3-0.8) 04/02/18 06:15 Eos # (Auto) 0.0 x10^3/uL (0.0-0.2) 04/02/18 06:15 Baso # (Auto) 0.0 X10^3/uL (0.0-0.1) 04/02/18 06:15 Absolute Nucleated RBC 0.0 /100WBC 04/02/18 06:15 Sample Site Rbr 04/01/18 14:48 ABG pH 7.490 (7.35-7.45) H 04/01/18 14:48 ABG pCO2 44.0 mmHg (35.0-45.0) 04/01/18 14:48 ABG pO2 86.0 mmHg (80.0-100.0) 04/01/18 14:48 ABG HCO3 33.5 mmol/L (22-26) H* 04/01/18 14:48 ABG O2 Saturation 97.0 % (90-100) 04/01/18 14:48 ABG Base Excess 9.1 mmol/L (-2.0-2.0) H 04/01/18 14:48 Wang Test N/a 04/01/18 14:48 A-a Gradient 9.0 mmHg 04/01/18 14:48 FiO2 21 04/01/18 14:48 Blood Gas Comments Pt isabel well elj 04/01/18 14:48 Sodium 139 mmol/L (136-145) 04/02/18 06:15 Corrected Sodium TNP 04/02/18 06:15 Potassium 3.6 mmol/L (3.5-5.1) 04/02/18 06:15 Chloride 98 mmol/L (98-107) 04/02/18 06:15 Carbon Dioxide 32.1 mmol/L (21-32) H 04/02/18 06:15 BUN 38 mg/dL (7-18) H 04/02/18 06:15 Creatinine 1.34 mg/dL (0.70-1.30) H 04/02/18 06:15 Est GFR (MDRD) Af Amer > 60 (>60) 04/02/18 06:15 Est GFR (MDRD) Non-Af > 60 (>60) 04/02/18 06:15 Glucose 90 mg/dL (65-99) 04/02/18 06:15 POC Glucose (mg/dL) 289 mg/dL (65-99) H 04/01/18 21:33 Calcium 8.7 mg/dL (8.5-10.1) 04/02/18 06:15 Corrected Calcium TNP 04/02/18 06:15 Total Bilirubin 1.00 mg/dL (0.2-1.0) 04/02/18 06:15 AST 21 Units/L (15-37) 04/02/18 06:15 ALT 31 Units/L (12-78) 04/02/18 06:15 Alkaline Phosphatase 93 Units/L (46-116) 04/02/18 06:15 Total Protein 8.7 g/dL (6.4-8.2) H 04/02/18 06:15 Albumin 4.2 g/dL (3.4-5.0) 04/02/18 06:15 Globulin 4.5 g/dL (2.5-4.5) 04/02/18 06:15 Albumin/Globulin Ratio 0.9 Ratio (1.1-2.1) L 04/02/18 06:15 Amylase 68 Units/L (25-115) 04/01/18 15:21 Lipase 115 Units/L (73-393) 04/01/18 15:21 Specimen Type Clean catch urine 04/01/18 17:43 Urine Color Yellow (YELLOW) 04/01/18 17:43 Urine Appearance Clear (CLEAR) 04/01/18 17:43 Urine pH 5.0 (5.0 - 8.0) 04/01/18 17:43 Ur Specific [place] 1.020 (1.000-1.030) 04/01/18 17:43 Urine Protein 2+ (NEGATIVE) 04/01/18 17:43 Urine Glucose (UA) 4+ (NEGATIVE) 04/01/18 17:43 Urine Ketones 3+ (NEGATIVE) 04/01/18 17:43 Urine Occult Blood 2+ (NEGATIVE) 04/01/18 17:43 Urine Nitrite Negative (NEGATIVE) 04/01/18 17:43 Urine Bilirubin Negative (NEGATIVE) 04/01/18 17:43 Urine Urobilinogen Normal (NORMAL) 04/01/18 17:43 Ur Leukocyte Esterase Negative (NEGATIVE) 04/01/18 17:43 Urine RBC 3-5 /HPF (NONE SEEN) 04/01/18 17:43 Urine WBC None seen /HPF (NONE SEEN) 04/01/18 17:43 Ur Squamous Epith Cells Negative /HPF (NEGATIVE) 04/01/18 17:43 Urine Bacteria Negative /HPF (NEGATIVE) 04/01/18 17:43 Ur Culture Indicated? No/not indicated 04/01/18 17:43 Acetone, Semi-Quant Negative (NEGATIVE) 04/02/18 06:15 - Plan (1) Dehydration Status: Acute Plan: NORMAL SALINE AT 125ML/HR (2) Gastroparesis Status: Acute Plan: NORMAL SALINE, PHENERGAN IV, ZOFRAN COCKTAIL IV, CONTINUE TO MONITOR (3) Hyperglycemia Status: Acute Plan: HUMULIN R SLIDING SCALE, RESUME HOME MEDICATIONS (4) Abdominal pain Status: Acute Qualifiers: Abdominal location: generalized Plan: DEMEROL 25MG IV Q4H PRN PAIN, CONTINUE TO MONITOR (5) Hypertension Status: Chronic Qualifiers: Hypertension type: essential hypertension Plan: CATAPRES 0.3MG TD PATCH, CONTINUE TO MONITOR
[2018-04-02] MEDS: PROTONIX INJ 40 MG VIAL IVP SCH ×2 (11:37→21:19)
[2018-04-02] MEDS: PEPCID 20 MG IV PREMIX* 20 MG/50 ML BAG IV SCH ×2 (11:37→21:19)
[2018-04-02] MEDS ORDERED: NORCO 10/325 TAB PO PRN (20:13)
[2018-04-02] MEDS ORDERED: POTASSIUM CHLORIDE PO SCH (20:15)
[2018-04-02] MEDS ORDERED: RESTORIL CAP 30 MG PO SCH (21:00)
[2018-04-02] MEDS: CARAFATE PO SCH (21:17)
[2018-04-02] MEDS: COZAAR PO SCH (21:18)
[2018-04-02] MEDS: HumuLIN R SUBCUT PRN (21:21)
[2018-04-02] MEDS: ZANAFLEX PO PRN (21:30)
[2018-04-02] MEDS ORDERED: [UNRECOGNIZED DRUG - OTHER] SUBCUT SCH (22:00)
[2018-04-03] MEDS: ZANAFLEX PO PRN (00:24)
[2018-04-03] MEDS: DEMEROL INJ IVP PRN ×2 (02:27→06:07)
[2018-04-03] MEDS: ZOFRAN INJ 4 MG VIAL IVP SCH ×3 (02:28→17:41)
[2018-04-03] MEDS: NS 1000 ML 1,000 ML IV SCH (06:07)
[2018-04-03] MEDS: PHENERGAN INJ 25 MG IV PRN (06:07)
[2018-04-03] MEDS: CARAFATE PO SCH ×3 (06:07→17:41)
[2018-04-03 06:50] LABS: ALANINE AMINOTRANSFERASE 21 Units/L (12-78); ALBUMIN 2.8 g/dL (3.4-5.0); ALKALINE PHOSPHATASE 65 Units/L (46-116); ASPARTATE AMINO TRANSFERASE 17 Units/L (15-37); BLOOD UREA NITROGEN 30 mg/dL (7-18); CALCIUM 7.3 mg/dL (8.5-10.1); CARBON DIOXIDE 24.3 mmol/L (21-32); CHLORIDE 103 mmol/L (98-107); COR CA(FOR HYPOALB) 8.3 mg/dL (8.5-10.1); COR NA(FOR HYPERGLY) 137 mmol/L (136-145); CREATININE 1.23 mg/dL (0.70-1.30); SODIUM 135 mmol/L (136-145); TOTAL PROTEIN 6.2 g/dL (6.4-8.2); eGFR NON BLACK RACES > 60 (>60)
[2018-04-03] MEDS: HumaLOG SC SCH ×3 (07:41→17:41)
[2018-04-03 07:54] LABS: BASOPHILS # (AUTO) 0.1 X10^3/uL (0.0-0.1); BASOPHILS % (AUTO) 0.9 % (0.2-1.0); EOSINOPHILS % (AUTO) 0.2 % (0.9-2.9); HEMATOCRIT 31.9 % (42.0-54.0); LYMPHOCYTES # (AUTO) 1.7 X10^3/uL (1.3-2.9); LYMPHOCYTES % (AUTO) 29.3 % (21.0-51.0); MEAN CORPUSCULAR HEMOGLOBIN 27.9 pg (27.0-34.0); MEAN CORPUSCULAR HGB CONC 33.9 g/dL (33.0-35.0); MEAN CORPUSCULAR VOLUME 82.2 fL (80.0-100.0); MEAN PLATELET VOLUME 8.5 fL (7.4-11.0); MONOCYTES # (AUTO) 0.6 x10^3/uL (0.3-0.8); MONOCYTES % (AUTO) 9.6 % (0.0-13.0); NEUTROPHILS # (AUTO) 3.5 x10^3/uL (2.2-4.8); PLATELET COUNT 266 X10^3/uL (150.0-450.0); RED BLOOD COUNT 3.88 X10^6/uL (4.7-6.0); RED CELL DISTRIBUTION WIDTH 12.8 % (11.6-16.5); WHITE BLOOD COUNT 5.9 X10^3/uL (3.6-10.0)
[2018-04-03 07:56] LABS: HEMOGLOBIN 10.8 g/dL (13.5-18.0)
[2018-04-03] MEDS ORDERED: K-DUR TAB 20 MEQ PO SCH (09:00)
[2018-04-03] MEDS ORDERED: PATIENT'S HOME MEDICATION (Linaclotide [Linzess] 72 MCG) PO SCH (09:00)
[2018-04-03] MEDS: COZAAR PO SCH (10:41)
[2018-04-03] MEDS: PROTONIX INJ 40 MG VIAL IVP SCH (11:29)
[2018-04-03] MEDS: PEPCID 20 MG IV PREMIX* 20 MG/50 ML BAG IV SCH (11:29)
[2018-04-03 16:33] VITALS: BP 155/92
[2018-04-03] MEDS ORDERED: PEPCID TAB 20 MG PO SCH (21:00)
[2018-04-03] MEDS ORDERED: PROTONIX TAB 40 MG PO SCH (21:00)
--- NOTE | 2018-05-14 22:53 | DR.CARTERD ---
- Discharge Summary for: Discharge Summary for Date of:: 04/03/18 - Admission Date Date of Admission: 04/01/18 - Admission Diagnoses Admission Diagnosis: (1) Gastroparesis (2) Dehydration (3) Hyperglycemia (4) Abdominal pain - Discharge Date Discharge Date: 04/03/18 - Discharge Diagnoses Discharge Diagnosis: (1) Gastroparesis (2) Dehydration (3) Hyperglycemia (4) Abdominal pain - Hospital Course Hospital Course: DAY ONE, WAS ADMITTED FOR DEHYDRATION R/T INTRACTABLE NAUSEA & VOMITING, ABDOMINAL PAIN, AND HYPERGLYCEMIA. WE CONTINUED TO EVALUATE AND TREAT PATIENT'S SYMPTOMS. WE CONTINUED TO MONITOR. DAY TWO, HE IS ALERT AND ORIENTED, LYING IN BED ON MORNING ROUNDS. HE CONTINUED WITH COMPLAINTS OF NAUSEA, VOMITING, AND ABDOMINAL PAIN. HE ALSO REPORTED GENERALIZED WEAKNESS. PATIENT HAS A KNOWN HISTORY OF DIABETIC GASTROPARESIS. ON EXAMINATION, HEART IS REGULAR IN RATE AND RHYTHM. BILATERAL LUNGS WERE NOTED WITH DIMINISHED LUNG SOUNDS THROUGHOUT. ABDOMEN WAS ROUND, SOFT, AND NOTED WITH MODERATE TENDERNESS TO PALPATION. HIS VITALS THIS MORNING WERE 97.9-108-20-99%-181/106. LABS WERE OBTAINED. ABNORMAL LAB VALUES INCLUDED THE FOLLOWING: HGB 13.4, HCT 39.1, CARBON DIOXIDE 32.1, BUN 38, CREATININE 1.34, TOTAL PROTEIN 8.7. HE WAS RECEIVING NORMAL SALINE AT 125ML/HR, PHENERGAN 12.5MG IV Q4H PRN NAUSEA AND ZOFRAN 4MG IV Q4H PRN NAUSEA. WE ORDERED ZOFRAN COCKTAIL IV Q8H PRN NAUSEA AND A CATAPRES 0.3MG PATCH. WE WILL ORDERED PEPCID AND PROTONIX IV BID. WE FOLLOWED UP WITH AM LABS AND CONTINUED TO MONITOR PATIENT. DAY THREE, PATIENT REPORTED COMPLAINTS OF NAUSEA AND VOMITING BUT SYMPTOMS WERE GETTING BETTER ON MORNING ROUNDS. VITAL SIGNS ARE STABLE AND LABS ARE WITHIN NORMAL RANGE FOR PATIENT. WE PLANNED FOR DISCHARGE. INSTRUCTIONS FOR MEDICATIONS AND FOLLOW UP WERE DISCUSSED WITH PATIENT AND FAMILY, BOTH VOICED UNDERSTANDING. PATIENT DISCHARGED HOME IN STABLE CONDITION WITH FAMILY. - Discharge Medications Discharge Medications: Home Medication List hydrocodone-acetaminophen 10 mg PO QID PRN 04/02/18 [History] pantoprazole [Protonix] 40 mg PO BID 04/02/18 [History] potassium chloride [Klor-Con M20] 20 meq PO DAILY 04/02/18 [History] Prescriptions: - Discharge Disposition Discharge Disposition: PATIENT TO FOLLOW UP IN OUR OFFICE IN ONE WEEK.
== END 2018-04-03 17:35 | disposition home or self-care (01) | DRG 641 ==
LOC: MED/SURG 13:27
PROVIDERS: ADMIT Internal Medicine; ATTEND Internal Medicine
DX: E11.43 Type 2 diabetes mellitus with diabetic autonomic (poly)neuropathy; K31.84 Gastroparesis; R10.84 Generalized abdominal pain; E55.9 Vitamin D deficiency, unspecified; E86.0 Dehydration; E11.65 Type 2 diabetes mellitus with hyperglycemia; E03.8 Other specified hypothyroidism; R53.1 Weakness; R25.1 Tremor, unspecified; I10 Essential (primary) hypertension; G62.9 Polyneuropathy, unspecified; E78.2 Mixed hyperlipidemia; R11.2 Nausea with vomiting, unspecified
CPT/HCPCS: 36415; 36600; 80053; 81001; 82009; 82150; 82803; 82947; 83690; 85025; 94760; A4216; A4222; C9113; S0028; J1100; J1815; J1817; J2060; J2175; J2405; J2550; J7030; J7050

== ENCOUNTER 2018-04-18 08:23 | Observation (INO) ==
[2018-04-18] MEDS ORDERED: NS 1000 ML 1,000 ML IV ONE (09:04)
[2018-04-18] MEDS ORDERED: REGLAN INJ 10 MG VIAL IVP STA (09:05)
[2018-04-18] MEDS ORDERED: ZOFRAN INJ 4 MG VIAL IVP ONE (09:05)
[2018-04-18] MEDS ORDERED: TORADOL 30 MG VIAL IVP STA (09:06)
[2018-04-18] MEDS ORDERED: ZOFRAN INJ 4 MG VIAL ONE (09:07)
[2018-04-18] MEDS ORDERED: NS 1000 ML 1,000 ML ONE ×2 (09:07→10:29)
[2018-04-18] MEDS ORDERED: REGLAN INJ 10 MG VIAL ONE (09:07)
[2018-04-18] MEDS ORDERED: PROTONIX INJ 40 MG VIAL IVP ONE (09:09)
--- NOTE | 2018-04-18 09:10 | DR.GENAD ---
HPI - PCP Primary Care Physician: ehtan - Complaint/Symptoms Chief Complaint Doctors Comments: Patient is complaining of stomach pain with persistent vomiting since last night. States everything he eat or drink comes back up. He is complaining of epigastric pain. He is a patient of Dr. Worthington and states he was in the hospital a few weeks ago. He denies tobacco or alcohol usage. He denies diarrhea or gelacio or hematuria. State the pain is 10 of 10. states he has been taking his medicine without any improvement. He denies cold, cough, fever or chills. Chief Complaint:: pt stated he has been short of breath and vomiting with abd pain since last night - Nurses notes reviewed Nurses Notes Review: Yes - Source History Provided: Patient - Mode of Arrival Mode of Arrival: Ambulatory - Timing Onset of Chief Complaint: 04/17/18 Came on: Gradually - Duration Duration: Constant How lon Duration: Days - Location Location: epigastric and diffuse abdominal pain - Severity Severity: Moderate - Modifying Factors Worsens:: nothing Improves:: nothing PMH - PMH Past Medical History: Yes Past Medical History: Hypertension, Dyslipidemia, Diabetes, Anxiety, GERD Past Surgical History: Yes Surgical History: Cholecystectomy, Ortho Surgery - Family History History of Family Medical Conditions: Yes Family Medical History: Diabetes Mellitus, Hypertension - Social History Does patient currently use any type of tobacco product: No Have you used tobacco products in the last 12 months: No Type of Tobacco Use: None Does any household member use tobacco: No Alcohol Use: None Do you use any recreational Drugs:: No Lives With: Family Lives Where: Home - infectious screening In the last 2 months have you had wt loss of >10#?: NO Have you had fever, night sweats or hemotysis?: No Have you traveled outside the country in the last 6 months?: No Isolation: Standard ROS - Review of Systems Constitutional: No Symptoms Reported, Weakness, Loss of Appetite Eyes: No Symptoms Reported. negative: See HPI, Eye Pain, Blurred Vision, Tearing, Discharge, Photophobia, Diplopia, Other ENTM: No Symptoms Reported Respiratoy: No Symptoms Reported. negative: See HPI, Productive Cough, Non- Productive Cough, Moist Cough, Dry Cough, Hacking Cough, Barking Cough, Brassy Cough, Orthopnea, Short of Breath, Stridor, Wheezing, Hemoptysis, Other Cardiovascular: No Symptoms Reported Gastrointestinal/Abdominal: No Symptoms Reported, Abdominal Pain, Nausea, Vomiting. negative: See HPI, Constipation, Diarrhea, Food Intolerance, Other Genitourinary: No Symptoms Reported Neurological: No Symptoms Reported Musculoskeletal: No Symptoms Reported Integumentary: No Symptoms Reported Hematologic/Lymphatic: No Symptoms Reported. negative: See HPI, Anemia, Blood Clots, Easy Bleeding, Easy Bruising, Swollen Glands, Lymphadenopathy, Other Endocrine: No Symptoms Reported Psychiatric: No Symptoms Reported. negative: See HPI, Anxiety, Depression, Hallucinations, Excessive crying, Suicidal, Other PE - General Limitations: No Limitations General Appearance: Alert, In Distress (moderate) - Head Head Exam: Normal Inspection, Atraumatic, Normocephalic - Eyes Eye exam: Normal Appearance, PERRL, EOMI. negative: Scleral Icterus, Conjunctival Injection, Nystagmus, Miosis, Mydrasis, Periorbital Swelling, Periorbital Tenderness, Other - ENT ENT Exam: Normal Exam, Normal Oropharynx, Normal External Ear Exam, Mucous Membranes Moist, TM's Normal Bilaterally External Ear Exam: Normal External Inspection TM/Canal Exam: Bilateral Normal Nose Exam: Normal Nose Exam Mouth Exam: Normal Inspection Throat Exam: Normal Inspection - Neck Neck Exam: Normal Inspection, Full ROM, Trachea Midline - Chest Chest Inspection: Normal Inspection, Symmetric Chest Wall Rise - Respiratory Respiratory Exam: Normal Lung Sounds Bilat Respiratory Exam: Bilateral Clear to Auscultation - Cardiovascular Cardiovascular Exam: Regular Rate, Normal Rhythm, Normal Heart Sounds - Abdominal Exam Abdominal Exam: Normal Inspection, Normal Bowel Sounds, Soft, Tenderness (epigastric tenderness) Abdominal Tenderness: LUQ, Epigastrium, Diffuse, Moderate - Extremities Extremities Exam: Normal Inspection, Full ROM, Normal Capillary Refill. negative: Tenderness, Edema, Joint Swelling, Calf Tenderness, Other - Back Back Exam: Normal Inspection, Full ROM. negative: Tenderness, (R) CVA Tenderness, (L) CVA Tenderness, Muscle Spasm, Paraspinal Tenderness, Vertebral Tenderness, Rashes, (R) Sciatic Notch Tenderness, (L) Sciatic Notch Tendern, (R) Straight Leg Raise, (L) Straight Leg Raise, Other - Neurologic Neurological Exam: Alert, Oriented X3, CN II-XII Intact, Normal Gait, Reflexes Normal - Psychiatric Psychiatric Exam: Normal Affect, Normal Mood. negative: Depressed, Agitated, Anxious, Flat Affect, Manic, Homicidal Ideation, Suicidal Ideation, Other - Skin Skin Exam: Warm, Dry, Intact, Normal Color - Vital Signs Vitals: Temperature 100.0 F Pulse Rate [Left Brachial] 89 Pulse Rate 108 Respiratory Rate 18 Blood Pressure [Right Arm] 155/92 Blood Pressure [Left Arm] 184/89 Blood Pressure [Left Radial 160/102 Artery] Blood Pressure 217/110 O2 Sat by Pulse Oximetry 99 Course - Reevaluation 1st: Improved - Consultation Called: 13:18 (Dr. Piña called) Call Returned: 13:56 (Dr. Piña to admit) - Education/Counseling Education/Counseling: Patient, Family Educated On: Treatment, Diagnosis, Needs for Follow Up ROR - Labs Reviewed Laboratory Results Reviewed?: Yes (All labs and x-ray results reviewed and discussed with patient) Result Diagrams: 04/18/18 09:14 04/18/18 09:14 - XRAY XRAY Interpreted by: Radiologist (CTA chest: No pulmonary embolus. Cavitary lesions resolved.), Self (CXR: No acute cardiopulmonary changes noted) XRAY Findings: CT abdomen and pelvis:Small hiatal hernia. - Labs Reviewed Laboratory: WBC 7.3 X10^3/uL (3.6-10.0) 04/18/18 09:14 RBC 4.51 X10^6/uL (4.7-6.0) L 04/18/18 09:14 Hgb 12.6 g/dL (13.5-18.0) L 04/18/18 09:14 Hct 37.3 % (42.0-54.0) L 04/18/18 09:14 MCV 82.7 fL (80.0-100.0) 04/18/18 09:14 MCH 27.9 pg (27.0-34.0) 04/18/18 09:14 MCHC 33.8 g/dL (33.0-35.0) 04/18/18 09:14 RDW 13.4 % (11.6-16.5) 04/18/18 09:14 Plt Count 304 X10^3/uL (150.0-450.0) 04/18/18 09:14 Plt Count Comment Adequate (ADEQUATE) 04/18/18 09:14 MPV 8.3 fL (7.4-11.0) 04/18/18 09:14 Neut % (Auto) 80.4 % (42.0-75.0) H 04/18/18 09:14 Lymph % (Auto) 14.8 % (21.0-51.0) L 04/18/18 09:14 [place] % (Auto) 3.3 % (0.0-13.0) 04/18/18 09:14 Eos % (Auto) 0.6 % (0.9-2.9) L 04/18/18 09:14 Baso % (Auto) 0.9 % (0.2-1.0) 04/18/18 09:14 Neut # (Auto) 5.8 x10^3/uL (2.2-4.8) H 04/18/18 09:14 Lymph # (Auto) 1.1 X10^3/uL (1.3-2.9) L 04/18/18 09:14 [place] # (Auto) 0.2 x10^3/uL (0.3-0.8) L 04/18/18 09:14 Eos # (Auto) 0.0 x10^3/uL (0.0-0.2) 04/18/18 09:14 Baso # (Auto) 0.1 X10^3/uL (0.0-0.1) 04/18/18 09:14 Absolute Nucleated RBC 0.0 /100WBC 04/18/18 09:14 Total Counted 100 04/18/18 09:14 Neutrophils % (Manual) 79 % (39-76) H 04/18/18 09:14 Lymphocytes % (Manual) 18 % (13-43) 04/18/18 09:14 Monocytes % (Manual) 1 % (4-9) L 04/18/18 09:14 Eosinophils % (Manual) 2 % (0-6) 04/18/18 09:14 Plt Morphology Comment Normal (NORMAL) 04/18/18 09:14 RBC Morphology Normal (NORMAL) 04/18/18 09:14 D-Dimer 649 ng/mL (0-400) H* 04/18/18 09:14 Sodium 138 mmol/L (136-145) 04/18/18 09:14 Corrected Sodium 143 mmol/L (136-145) 04/18/18 09:14 Potassium 3.6 mmol/L (3.5-5.1) 04/18/18 09:14 Chloride 98 mmol/L (98-107) 04/18/18 09:14 Carbon Dioxide 29.1 mmol/L (21-32) 04/18/18 09:14 BUN 14 mg/dL (7-18) 04/18/18 09:14 Creatinine 1.14 mg/dL (0.70-1.30) 04/18/18 09:14 Est GFR (MDRD) Af Amer > 60 (>60) 04/18/18 09:14 Est GFR (MDRD) Non-Af > 60 (>60) 04/18/18 09:14 Glucose 294 mg/dL (65-99) H 04/18/18 09:14 POC Glucose (mg/dL) 251 mg/dL (65-99) H 04/18/18 12:45 Calcium 9.4 mg/dL (8.5-10.1) 04/18/18 09:14 Corrected Calcium TNP 04/18/18 09:14 Total Bilirubin 0.60 mg/dL (0.2-1.0) 04/18/18 09:14 AST 17 Units/L (15-37) 04/18/18 09:14 ALT 23 Units/L (12-78) 04/18/18 09:14 Alkaline Phosphatase 122 Units/L (46-116) H 04/18/18 09:14 Total Protein 9.5 g/dL (6.4-8.2) H 04/18/18 09:14 Albumin 4.5 g/dL (3.4-5.0) 04/18/18 09:14 Globulin 5.0 g/dL (2.5-4.5) H 04/18/18 09:14 Albumin/Globulin Ratio 0.9 Ratio (1.1-2.1) L 04/18/18 09:14 Amylase 66 Units/L (25-115) 04/18/18 09:14 Lipase 118 Units/L (73-393) 04/18/18 09:14 Specimen Type Clean catch urine 04/18/18 09:05 Urine Color Yellow (YELLOW) 04/18/18 09:05 Urine Appearance Clear (CLEAR) 04/18/18 09:05 Urine pH 7.0 (5.0 - 8.0) 04/18/18 09:05 Ur Specific [place] 1.010 (1.000-1.030) 04/18/18 09:05 Urine Protein 3+ (NEGATIVE) 04/18/18 09:05 Urine Glucose (UA) 4+ (NEGATIVE) 04/18/18 09:05 Urine Ketones 2+ (NEGATIVE) 04/18/18 09:05 Urine Occult Blood 3+ (NEGATIVE) 04/18/18 09:05 Urine Nitrite Negative (NEGATIVE) 04/18/18 09:05 Urine Bilirubin Negative (NEGATIVE) 04/18/18 09:05 Urine Urobilinogen Normal (NORMAL) 04/18/18 09:05 Ur Leukocyte Esterase Negative (NEGATIVE) 04/18/18 09:05 Urine RBC 5-10 /HPF (NONE SEEN) 04/18/18 09:05 Urine WBC 0-2 /HPF (NONE SEEN) 04/18/18 09:05 Ur Squamous Epith Cells Negative /HPF (NEGATIVE) 04/18/18 09:05 Urine Bacteria Negative /HPF (NEGATIVE) 04/18/18 09:05 Ur Culture Indicated? No/not indicated 04/18/18 09:05 Urine Opiates Screen Negative (NEG=<300) 04/18/18 09:05 Urine Methadone Screen Negative (NEG=<300) 04/18/18 09:05 Ur Barbiturates Screen Negative (NEG=<200) 04/18/18 09:05 Ur Phencyclidine Scrn Negative (NEG=<25) 04/18/18 09:05 Ur Amphetamines Screen Negative (NEG=<1000) 04/18/18 09:05 U Benzodiazepines Scrn Negative (NEG=<200) 04/18/18 09:05 Urine Cocaine Screen Negative (NEG=<300) 04/18/18 09:05 U Marijuana (THC) Screen Negative (NEG=<50) 04/18/18 09:05 - Diagnosis Discharge Problem: Hiatal hernia, Accelerated hypertension Intractable nausea and vomiting Qualifiers: Vomiting type: unspecified Qualified Code(s): R11.2 - Nausea with vomiting, unspecified Diabetes mellitus Qualifiers: Diabetes mellitus type: type 2 Abdominal pain Qualifiers: Abdominal location: generalized Qualified Code(s): R10.84 - Generalized abdominal pain Hematuria Qualifiers: Hematuria type: asymptomatic microscopic Qualified Code(s): R31.21 - Asymptomatic microscopic hematuria - Discharge Plan Disposition: 09 ADMITTED INPATIENT Condition: Stable - Follow ups/Referrals Follow ups/Referrals: Williams Worthington [Primary Care Provider] - 3 days - Instructions
[2018-04-18] MEDS ORDERED: TORADOL 30 MG VIAL ONE (09:14)
[2018-04-18] MEDS ORDERED: PROTONIX INJ 40 MG VIAL ONE (09:15)
[2018-04-18 09:24] LABS: BASOPHILS # (AUTO) 0.1 X10^3/uL (0.0-0.1); BASOPHILS % (AUTO) 0.9 % (0.2-1.0); EOSINOPHILS % (AUTO) 0.6 % (0.9-2.9); HEMATOCRIT 37.3 % (42.0-54.0); HEMOGLOBIN 12.6 g/dL (13.5-18.0); LYMPHOCYTES # (AUTO) 1.1 X10^3/uL (1.3-2.9); LYMPHOCYTES % (AUTO) 14.8 % (21.0-51.0); MEAN CORPUSCULAR HEMOGLOBIN 27.9 pg (27.0-34.0); MEAN CORPUSCULAR HGB CONC 33.8 g/dL (33.0-35.0); MEAN CORPUSCULAR VOLUME 82.7 fL (80.0-100.0); MEAN PLATELET VOLUME 8.3 fL (7.4-11.0); MONOCYTES # (AUTO) 0.2 x10^3/uL (0.3-0.8); MONOCYTES % (AUTO) 3.3 % (0.0-13.0); NEUTROPHILS # (AUTO) 5.8 x10^3/uL (2.2-4.8); NEUTROPHILS % (AUTO) 80.4 % (42.0-75.0); PLATELET COUNT 304 X10^3/uL (150.0-450.0); RED BLOOD COUNT 4.51 X10^6/uL (4.7-6.0); RED CELL DISTRIBUTION WIDTH 13.4 % (11.6-16.5); WHITE BLOOD COUNT 7.3 X10^3/uL (3.6-10.0)
[2018-04-18 09:24] LABS: BILIRUBIN,URINE NEGATIVE (NEGATIVE); BLOOD/HEMOGLOBIN,URINE 3+ (NEGATIVE); GLUCOSE, URINE 4+ (NEGATIVE); KETONES,URINE 2+ (NEGATIVE); LEUKOCYTE ESTERASE ,URINE NEGATIVE (NEGATIVE); NITRITES,URINE NEGATIVE (NEGATIVE); PROTEIN,URINE 3+ (NEGATIVE); UROBILINOGEN,URINE NORMAL (NORMAL)
[2018-04-18 09:33] LABS: APPEARANCE,URINE CLEAR (CLEAR); BACTERIA,URINE NEGATIVE /HPF (NEGATIVE); COLOR,URINE YELLOW (YELLOW); SQUAMOUS EPITHELIAL CELL,UR NEGATIVE /HPF (NEGATIVE)
[2018-04-18 09:39] LABS: ALANINE AMINOTRANSFERASE 23 Units/L (12-78); ALBUMIN 4.5 g/dL (3.4-5.0); ALKALINE PHOSPHATASE 122 Units/L (46-116); AMYLASE 66 Units/L (25-115); ASPARTATE AMINO TRANSFERASE 17 Units/L (15-37); BLOOD UREA NITROGEN 14 mg/dL (7-18); CALCIUM 9.4 mg/dL (8.5-10.1); CARBON DIOXIDE 29.1 mmol/L (21-32); CHLORIDE 98 mmol/L (98-107); COR NA(FOR HYPERGLY) 143 mmol/L (136-145); CREATININE 1.14 mg/dL (0.70-1.30); LIPASE 118 Units/L (73-393); SODIUM 138 mmol/L (136-145); TOTAL PROTEIN 9.5 g/dL (6.4-8.2); eGFR NON BLACK RACES > 60 (>60)
[2018-04-18 09:42] LABS: PLATELET MORPHOLOGY COMMENT NORMAL (NORMAL)
--- NOTE | 2018-04-18 09:47 | RAD ---
Examination: AP chest History: SOB Comparison 04/10/2018 Findings: Continued normal heart size with no acute pulmonary or pleural lesion identified. Stable position of left-sided injection port terminating proximal to the right atrium. Impression: No change; no acute findings. Reported By:
--- NOTE | 2018-04-18 09:58 | CT ---
HISTORY: Vomiting, abdominal pain Study: CT abdomen and pelvis without contrast Comparison: 12/19/2017 Technique: Multiple axial images of the abdomen and pelvis were obtained from the lung bases to the pubic symphysis without the administration of IV contrast. Automated exposure control (AEC) was utilized to adjust the MA and/or kV according to patient size. Findings: Small hiatal hernia and mild wall thickening of the distal esophagus is suggested. Abdomen: Please note that the lack of intravenous contrast limits sensitivity for detection of parenchymal lesions. The liver appears homogeneous without contour deforming masses. Status postcholecystectomy. There is no bile duct dilatation demonstrated.. The spleen, pancreas, and bilateral adrenal glands appear normal. Both kidneys are homogenous without contour deforming masses. No radiopaque calculi are noted. No hydronephrosis or perinephric fluid collection. Small hiatal hernia. Stomach is otherwise unremarkable. Small bowel and colon are nondistended.. Appendix is not visualized. Postsurgical changes in the right lower quadrant suggest appendectomy. No inflammatory changes are seen in the pericecal fat. The abdominal aorta is of normal caliber. There is no free fluid or free intraperitoneal air. Pelvis: The urinary bladder is grossly unremarkable. The rectum and sigmoid colon appear unremarkable. There is no free fluid in the pelvis. No acute osseous abnormalities are identified. IMPRESSION: 1. Small hiatal hernia. Mild wall thickening of the distal esophagus is suggested. This may represent solid itis. Clinical correlation is required. Consider correlation with esophagram or EGD as clinically indicated. No other acute abnormality demonstrated within the abdomen or pelvis.. Reported By:
[2018-04-18] MEDS ORDERED: CATAPRES-TTS-3 TD SCH (10:00)
[2018-04-18] MEDS ORDERED: PHENERGAN INJ 25 MG IV ONE (10:05)
[2018-04-18] MEDS ORDERED: PHENERGAN INJ 25 MG ONE (10:05)
[2018-04-18] MEDS ORDERED: BENADRYL INJ 50 MG VIAL IV STA (10:06)
[2018-04-18] MEDS ORDERED: HumuLIN R IV STA (10:08)
[2018-04-18] MEDS ORDERED: NS 100 ML IV 100 ML IV ONE (10:17)
[2018-04-18] MEDS: NS 1000 ML 1,000 ML IV SCH ×2 (10:32→20:46)
[2018-04-18] MEDS ORDERED: BENADRYL INJ 50 MG VIAL ONE (10:33)
[2018-04-18] MEDS ORDERED: DEMEROL INJ IVP ONE (10:34)
[2018-04-18] MEDS ORDERED: NORMODYNE INJ 100 MG VIAL IVP ONE (10:37)
[2018-04-18] MEDS ORDERED: DEMEROL INJ ONE ×2 (10:37→16:25)
[2018-04-18] MEDS ORDERED: HumuLIN R ONE (11:17)
--- NOTE | 2018-04-18 12:27 | CT ---
CT ANGIOGRAPHY OF THE CHEST CLINICAL HISTORY: 47-year-old male with shortness of breath and elevated D-dimer. COMPARISON: Chest radiograph this date, CT chest 10/29/2017. TECHNIQUE: CT angiogram of the chest was performed following the uncomplicated administration of intravenous contrast as per routine pulmonary embolus protocol. Coronal and Sagittal reformats provided. MIP reformats are submitted for review. FINDINGS: No pulmonary embolus is seen. There is no thoracic aortic dissection. Left chest chemo port the IJ approach with distal tip within the right atrium. The heart is normal in size and there is no pericardial effusion. There is no axillary or mediastinal lymphadenopathy. Near complete interval resolution of cavitary lesions within the inferolateral base of the right upper lobe and within the right lower lobe with only small pleural thickening/scar remaining. Prior identified left lower lobe nodule has resolved. No new mass or nodule. The trachea and mainstem bronchi are patent. There is no pleural effusion or pneumothorax. Status post cholecystectomy. Moderate size hiatal hernia. Remaining imaged upper abdomen is unremarkable. The arteriovascular structures are within normal limits. Soft tissues are normal. The osseous structures are intact without fracture or malalignment. IMPRESSION: 1. No pulmonary embolus. 2. Cavitary lesions within the right upper and lower lobes have resolved with only small volume pleural thickening/scar remaining. 3. Interval resolution left lower lobe pulmonary nodule. 4. Chronic findings as above. Reported By:
[2018-04-18] MEDS ORDERED: PHENERGAN INJ 25 MG IVP PRN (13:59)
[2018-04-18] MEDS ORDERED: ZOFRAN INJ 4 MG VIAL IVP PRN (13:59)
[2018-04-18] MEDS ORDERED: CATAPRES TAB 0.2 MG ONE (14:47)
[2018-04-18] MEDS ORDERED: CATAPRES TAB 0.2 MG PO ONE (14:48)
[2018-04-18] MEDS ORDERED: NS 1000 ML 1,000 ML IV SCH (15:00)
[2018-04-18] MEDS ORDERED: ZOFRAN INJ 4 MG VIAL 16 MG, ATIVAN INJ 2 MG VIAL 1 MG, DECADRON INJ 10 MG in NS 50 ML I... IV PRN (15:30)
[2018-04-18] MEDS ORDERED: DECADRON INJ PRESERVATIVE-FREE IM ONE (15:35)
[2018-04-18] MEDS ORDERED: NS 50 ML IV 50 ML IV ONE (15:36)
[2018-04-18] MEDS ORDERED: ATIVAN INJ 2 MG VIAL ONE (15:36)
[2018-04-18] MEDS: DEMEROL INJ IVP PRN ×2 (16:36→23:18)
[2018-04-18] MEDS ORDERED: SNACK - Diabetic Appropriate PO SCH (20:00)
[2018-04-18] MEDS: PEPCID 20 MG IV PREMIX* 20 MG/50 ML BAG IV PRN (20:46)
[2018-04-18] MEDS: HumuLIN R SUBCUT PRN (20:46)
[2018-04-18] MEDS: SNACK - Diabetic Appropriate PO SCH (20:47)
[2018-04-18] MEDS ORDERED: ZANAFLEX PO PRN (22:03)
[2018-04-18] MEDS ORDERED: NORCO 10/325 TAB PO PRN (22:03)
[2018-04-18] MEDS ORDERED: RESTORIL CAP 30 MG PO PRN (22:03)
[2018-04-18] MEDS: KLONOPIN TAB 1 MG PO PRN (23:13)
[2018-04-18] MEDS: LOPRESSOR TAB 50 MG PO SCH (23:13)
[2018-04-18] MEDS: NEURONTIN CAP 300 MG PO SCH (23:13)
[2018-04-19] MEDS: NEURONTIN CAP 300 MG PO SCH ×3 (05:27→21:34)
[2018-04-19] MEDS: NS 1000 ML 1,000 ML IV SCH ×3 (05:28→21:34)
[2018-04-19] MEDS: DEMEROL INJ IVP PRN ×3 (05:32→21:34)
[2018-04-19 06:11] LABS: BASOPHILS # (AUTO) 0.1 X10^3/uL (0.0-0.1); BASOPHILS % (AUTO) 0.7 % (0.2-1.0); HEMATOCRIT 34.6 % (42.0-54.0); HEMOGLOBIN 11.6 g/dL (13.5-18.0); LYMPHOCYTES # (AUTO) 0.9 X10^3/uL (1.3-2.9); LYMPHOCYTES % (AUTO) 11.4 % (21.0-51.0); MEAN CORPUSCULAR HEMOGLOBIN 27.7 pg (27.0-34.0); MEAN CORPUSCULAR HGB CONC 33.5 g/dL (33.0-35.0); MEAN CORPUSCULAR VOLUME 82.6 fL (80.0-100.0); MEAN PLATELET VOLUME 8.8 fL (7.4-11.0); MONOCYTES # (AUTO) 0.3 x10^3/uL (0.3-0.8); MONOCYTES % (AUTO) 4.2 % (0.0-13.0); NEUTROPHILS # (AUTO) 6.4 x10^3/uL (2.2-4.8); NEUTROPHILS % (AUTO) 83.7 % (42.0-75.0); PLATELET COUNT 313 X10^3/uL (150.0-450.0); RED BLOOD COUNT 4.19 X10^6/uL (4.7-6.0); RED CELL DISTRIBUTION WIDTH 13.5 % (11.6-16.5); WHITE BLOOD COUNT 7.7 X10^3/uL (3.6-10.0)
[2018-04-19 06:38] LABS: ALBUMIN 3.3 g/dL (3.4-5.0); CARBON DIOXIDE 25.8 mmol/L (21-32); COR CA(FOR HYPOALB) 8.6 mg/dL (8.5-10.1); CREATININE 1.82 mg/dL (0.70-1.30); TOTAL PROTEIN 7.6 g/dL (6.4-8.2)
[2018-04-19 10:35] VITALS: BMI 20.2
[2018-04-19] MEDS: LOPRESSOR TAB 50 MG PO SCH ×3 (12:30→20:18)
[2018-04-19] MEDS: COZAAR PO SCH (12:33)
[2018-04-19] MEDS: SNACK - Diabetic Appropriate PO SCH (20:18)
[2018-04-19] MEDS: HumuLIN R SUBCUT PRN (20:50)
[2018-04-19] MEDS: PEPCID 20 MG IV PREMIX* 20 MG/50 ML BAG IV PRN (20:50)
[2018-04-19] MEDS: KLONOPIN TAB 1 MG PO PRN (20:51)
[2018-04-19] MEDS ORDERED: ELAVIL PO SCH (21:00)
[2018-04-20 05:15] LABS: BASOPHILS % (AUTO) 0.5 % (0.2-1.0); EOSINOPHILS # (AUTO) 0.1 x10^3/uL (0.0-0.2); EOSINOPHILS % (AUTO) 1.1 % (0.9-2.9); HEMATOCRIT 33.1 % (42.0-54.0); HEMOGLOBIN 11.1 g/dL (13.5-18.0); LYMPHOCYTES # (AUTO) 3.5 X10^3/uL (1.3-2.9); LYMPHOCYTES % (AUTO) 38.2 % (21.0-51.0); MEAN CORPUSCULAR HEMOGLOBIN 27.6 pg (27.0-34.0); MEAN CORPUSCULAR HGB CONC 33.5 g/dL (33.0-35.0); MEAN CORPUSCULAR VOLUME 82.4 fL (80.0-100.0); MEAN PLATELET VOLUME 8.2 fL (7.4-11.0); MONOCYTES # (AUTO) 0.7 x10^3/uL (0.3-0.8); MONOCYTES % (AUTO) 7.3 % (0.0-13.0); NEUTROPHILS # (AUTO) 4.8 x10^3/uL (2.2-4.8); NEUTROPHILS % (AUTO) 52.9 % (42.0-75.0); PLATELET COUNT 295 X10^3/uL (150.0-450.0); RED BLOOD COUNT 4.01 X10^6/uL (4.7-6.0); RED CELL DISTRIBUTION WIDTH 13.5 % (11.6-16.5); WHITE BLOOD COUNT 9.1 X10^3/uL (3.6-10.0)
[2018-04-20 05:25] LABS: ALANINE AMINOTRANSFERASE 20 Units/L (12-78); ALBUMIN 2.9 g/dL (3.4-5.0); ALKALINE PHOSPHATASE 79 Units/L (46-116); ASPARTATE AMINO TRANSFERASE 16 Units/L (15-37); BLOOD UREA NITROGEN 22 mg/dL (7-18); CALCIUM 7.1 mg/dL (8.5-10.1); CARBON DIOXIDE 25.6 mmol/L (21-32); CHLORIDE 107 mmol/L (98-107); CREATININE 1.07 mg/dL (0.70-1.30); SODIUM 141 mmol/L (136-145); TOTAL PROTEIN 6.6 g/dL (6.4-8.2); eGFR NON BLACK RACES > 60 (>60)
[2018-04-20] MEDS: NS 1000 ML 1,000 ML IV SCH ×2 (05:52→11:36)
[2018-04-20] MEDS: NEURONTIN CAP 300 MG PO SCH (05:53)
[2018-04-20] MEDS ORDERED: K-RIDER 10 MEQ/NS 100 ML 10 MEQ/100 ML BAG IV PRN (06:22)
[2018-04-20] MEDS ORDERED: KLOR-CON PO PRN (06:22)
[2018-04-20] MEDS ORDERED: MICRO K EXTEN CAP 10 MEQ PO PRN (06:22)
[2018-04-20] MEDS ORDERED: POTASSIUM CHLORIDE LIQ 20 MEQ UDC PO PRN (06:22)
[2018-04-20] MEDS ORDERED: POTASSIUM CHL 40 MEQ/NS 0.45% 500 ML IV PRN (06:22)
[2018-04-20] MEDS ORDERED: POTASSIUM CHL 60 MEQ/NS 0.45% 500 ML IV PRN (06:22)
[2018-04-20] MEDS ORDERED: K-DUR TAB 20 MEQ PO PRN (06:22)
--- NOTE | 2018-04-20 07:51 | DR.H&P ---
H&P Chief Complaint Chief Complaint: ABDOMINAL PAIN, NAUSEA, VOMITING WITH SOB TIMES ONE DAY. BLOOD PRESSURE IS HIGH IN ED. Allergies Allergies Allergy/AdvReac Type Severity Reaction Status Date / Time codeine Allergy Verified 04/29/18 11:50 morphine Allergy Verified 04/29/18 11:50 History of Present Illness History of Present Illness: PATIENT IS 47YR OLD MALE WITH DIABETIC GASTROPARESIS WHO IS ADMITTED THROUGH THE ED FOR MANAGEMENT OF INTRACTABLE NAUSEA, VOMITING, ABDOMINAL PAIN AND ACCELERATED HYPERTENSION.PATIENT IS NOT HOLDING DOWN MEDICATIONS OR FLUIDS. BLOOD PRESSURE IS MARKEDLY ELEVATED. HE IS COMPLAINING OF SEVERE ABDOMINAL PAIN. Past Medical History Past Medical History: Anxiety, Diabetes, Dyslipidemia, GERD and Hypertension Additional Medical History: Diabetic Neuropathy, Diabetic Gastroparesis, Hiatal Hernia, Gastric Ulcer, Gall Bladder Disease, Back Pain Past Surgical History Surgical History: Cholecystectomy, Ortho Surgery and Other Additional Surgical History: Right foot I&D Family History Family Medical History: Diabetes Mellitus and Hypertension Social History Does patient currently use any type of tobacco product: No Have you used tobacco products in the last 12 months: No Type of Tobacco Use: None Does any household member use tobacco: No Alcohol Use: None Drug Use: Prescription Drugs Medications Home Medications: codeine Allergy (Verified 04/18/18 08:28) morphine Allergy (Verified 04/18/18 08:28) CONTINUE taking the following medications insulin lispro [Humalog U-100 Insulin] 20 unit SUBCUT ACHS 04/18/18 [History] scopolamine base [Transderm-Scop] 1 mg TRANSDERMAL Q3D 04/18/18 [History] temazepam 30 mg PO HS 04/18/18 [History] Review of Systems Constitutional: Weakness and Malaise Eyes: No Symptoms Reported ENT: No Symptoms Reported Respiratory: Shortness of Breath Cardiovascular: Palpitations, Light Headedness and Other (ELEVATED BP.) Gastrointestinal: Nausea, Vomiting and Abdominal Pain Genitourinary: Other (DECREASE URINE OUTPUT.) Musculoskeletal: Other (GENERALIZE ACHES AND PAIN.) Skin: Other (DIAPHORESIS, DRY) Neurological: Weakness Physical Exam Vital Signs: Temperature 97.7 F Pulse Rate [Left Brachial] 68 Pulse Rate 108 Respiratory Rate 18 Blood Pressure [Right Arm] 135/70 Blood Pressure [Left Arm] 182/110 Blood Pressure [Left Radial 160/102 Artery] Blood Pressure 217/110 O2 Sat by Pulse Oximetry 100 Oriented: Time, Person and Place Eyes: Normal Ear: Normal Nose: Normal Throat: Normal Respiratory: Clear Throughout Cardiovascular: Tachycardia : Other (DECREASE URINE OUTPUT.) Auscultation: Bowel Sounds: Other (BOWEL SOUND PRESENT.) Palpation: Normal Tenderness: RUQ and Moderate Skin: Diaphoresis Musculoskeletal: negative Normal (MUSCLE TENDERNESS, GENERALIZE.) Psychiatric: Normal Mood Description: Calm Speech Pattern: Clear and Appropriate Assessment/Plan (1) Abdominal pain: Status: Acute Plan: ABDOMINAL PAIN TO RULE OUT ACUTE ABDOMEN. PROBABLY EXACERBATION OD DIABETIC GASTROPARESIS. REVIEWED ABDOMEN AND PELVIS CT DONE IN ED DID NOT INDICATE ACUTE ABDOMEN. WILL CONTINUE TO MANAGE WITH DEHYDRATION, NAUSEA MEDS, AND PAIN MEDICATIONS. (2) Intractable nausea and vomiting: Status: Acute Plan: PERSISTENT NAUSEA AND VOMITING NOT RESPONDING TO PHENERGAN AND ZOFRAN. WILL CONTINUE TO DYDRATE AND START ZOFRAN COCKTAIL. (3) Accelerated hypertension: Status: Acute Plan: PATIENT HAVE CLONADINE PATCH AND IV ANTIHYPERTENSION MED GIVEN. BP IMPROVE A LOT WITH PAIN CONTROL. WILL CONTINUE. WILL CONTINUE TO MONITOR PATIENT AND CHECK LABS IN AM.
[2018-04-20] MEDS: PEPCID 20 MG IV PREMIX* 20 MG/50 ML BAG IV PRN (08:31)
[2018-04-20] MEDS: MAGNESIUM SULFATE 1 GRAM/100 mL PREMIX 1 GM/100 ML BAG IV PRN ×2 (08:31→09:30)
[2018-04-20 08:43] VITALS: BP 128/69
[2018-04-20] MEDS: DEMEROL INJ IVP PRN (11:30)
[2018-04-20] MEDS: LOPRESSOR TAB 50 MG PO SCH (12:30)
[2018-04-20] MEDS: COZAAR PO SCH (12:30)
--- NOTE | 2018-05-22 23:37 | DR.CARTERD ---
- Discharge Summary for: Discharge Summary for Date of:: 04/18/18 - Admission Date Date of Admission: 04/20/18 - Admission Diagnoses Admission Diagnosis: (1) ACCELERATED HTN (2) NAUSEA AND VOMITING (3) ABDOMINAL PAIN (4) DIABETES MELLITUS - Discharge Diagnoses Discharge Diagnosis: (1) ACCELERATED HTN (2) NAUSEA AND VOMITING (3) ABDOMINAL PAIN (4) DIABETES MELLITUS - Hospital Course Hospital Course: DAY ONE, PATIENT IS 47YR OLD MALE WITH DIABETIC GASTROPARESIS WHO IS ADMITTED THROUGH THE ED FOR MANAGEMENT OF INTRACTABLE NAUSEA, VOMITING, ABDOMINAL PAIN AND ACCELERATED HYPERTENSION. PATIENT WAS NOT HOLDING DOWN MEDICATIONS OR FLUIDS. BLOOD PRESSURE WAS MARKEDLY ELEVATED. VITALS WERE T- 100.0, P-108, R-18, O2-100% RA, BP-217/110. HE WAS COMPLAINING OF SEVERE ABD OMINAL PAIN. PATIENT WAS STARTED ON IV FLUIDS OF NS @ 125 MLS/HR, PHENERGAN 12.5 MG IV Q6H PRN, ZOFRAN 4MG IVP Q6H PRN, ZOFRAN COCKTAIL Q8H PRN, PEPCID 20MG IV BID PRN, AND CATAPRES TTS 3 Q7D. PATIENT HAD A CHEST CTA WHICH REVEALED: No pulmonary embolus. Cavitary lesions within the right upper and lower lobes have resolved with only small volume pleural thickening/scar remaining. Interval resolution left lower lobe pulmonary nodule. Chronic findings as above. WE CONTINUED TO MONITOR AND EVALUATE. DAY TWO, PATIENT WAS LAYING IN BED ALERT AND ORIENTED ON ROUNDS. PATIENT CONTINUED WITH COMPLAINTS OF NAUSEA AND VOMITING. BP WAS DECREASED TODAY. VITALS WERE T-98.4, P-78, R-18, O2-98% RA, BP-102/59. ABNORMAL LABS INCLUDED: RBC 4.19, HGB 11.6, HCT 34.6, BUN 22, CREATININE 1.82, GFR AA-52, GFR NON-43, GLUCOSE 214, CALCIUM 8.0, ALBUMIN 3.3, A/G RATIO 0.8. WE CONTINUED WITH CURRENT PLAN OF TREATMENT AND CONTINUED TO MONITOR PATIENT. DAY THREE, PATIENT WAS LAYING IN BED ALERT AND ORIENTED THIS AM. PATIENT VOICED SIGNIFICANT IMPROVEMENT WITH NAUSEA AND VOMITING. VITALS WERE STABLE. LABS WERE IN NORMAL RANGE FOR PATIENT. BLOOD GLUCOSE WAS 45 THIS AM. PATIENT WAS GIVEN ORANGE JUICE AND CRACKERS. BLOOD SUGAR WAS RECHECKED AND WAS 69. LAST BLOOD SUGAR CHECKED WAS 216. WE PLANNED FOR DISCHARGE. INSTRUCTIONS FOR MEDICATIONS AND FOLLOW UP WERE DISCUSSED WITH PATIENT AND FAMILY, BOTH VOICED UNDERSTANDING. PATIENT WAS DISCHARGED HOME IN STABLE CONDITION WITH FAMILY. - Discharge Medications Discharge Medications: Home Medication List Humalog U-100 Insulin 1 unit SUBCUT ACHS 04/18/18 [History] scopolamine base [Transderm-Scop] 1.5 mg TRANSDERMAL Q3D 04/18/18 [History] temazepam 30 mg PO HS 04/18/18 [History] Prescriptions: Ambulatory Orders losartan 100 mg PO DAILY 11/14/17 sucralfate 1 g PO ACHS 11/14/17 promethazine 25 mg PO Q6H PRN #30 tab 11/19/17 clonidine [Apsrexgz-NWL-6] 0.3 patch TOPICAL Q7D 12/02/17 insulin glargine U-300 conc [Toujeo Max U-300 SoloStar] 35 - 50 unit SUB-Q HS 12/05/17 hydrocodone-acetaminophen 10 mg PO QID PRN 04/02/18 pantoprazole [Protonix] 40 mg PO BID 04/02/18 potassium chloride [Klor-Con M20] 20 meq PO DAILY 04/02/18 - Discharge Disposition Discharge Disposition: PATIENT TO FOLLOW UP IN OUR OFFICE IN ONE WEEK.
== END 2018-04-20 12:45 | disposition home or self-care (01) ==
LOC: MED/SURG 08:28 → ER 08:28 → MED/SURG 15:25
PROVIDERS: ADMIT Emergency Medicine; ATTEND Internal Medicine
DX: E78.2 Mixed hyperlipidemia; K31.84 Gastroparesis; R10.84 Generalized abdominal pain; R74.8 Abnormal levels of other serum enzymes; E11.65 Type 2 diabetes mellitus with hyperglycemia; R10.13 Epigastric pain; R11.2 Nausea with vomiting, unspecified; K21.9 Gastro-esophageal reflux disease without esophagitis; R31.21 Asymptomatic microscopic hematuria; Z79.899 Other long term (current) drug therapy; F41.8 Other specified anxiety disorders; I10 Essential (primary) hypertension; R06.02 Shortness of breath; K44.9 Diaphragmatic hernia without obstruction or gangrene
CPT/HCPCS: 36415; 71010; 71045; 71275; 74176; 80053; 80307; 81001; 82009; 82150; 83690; 83735; 85025; 85378; 96365; 96367; 96372; 96374; 96375; 99218; 99284; A4216; A4222; C9113; S0028; G0378; G0434; J1100; J1200; J1642; J1815; J1885; J2060; J2175; J2405; J2550; J2765; J3475; J3490; J7030; J7050

== ENCOUNTER 2018-04-29 11:45 | Inpatient (IN) ==
[2018-04-29 11:53] VITALS: BMI 21.4
--- NOTE | 2018-04-29 11:58 | DR.N/VMALE ---
HPI Time Seen Time Seen by Provider: 04/29/18 11:54 Primary Care Physician Primary Care Physician: SAVANNAH SHARPE HPI Comment HPI Comment: NO FEVER, HEMATEMESIS OR DIARRHEA. SIMILAR SYMTOMS IN THE PAST. Complaints Chief Complaint Doctors Comments: ABDOMINAL PAIN, N/V/D SINCE YESTERDAY. Chief Complaint:: PT C/O N/V AND ABD PAIN SINCE YESTERDAY ,BR Reviewed Nurses Notes Reviewed: Yes Source History Provided: Patient Mode of Arrival Mode of Arrival: Ambulatory Timing Onset of Chief Complaint: 04/28/18 Context Onset: Spontaneous Recent: None History of: Abdominal Operation and Diabetes Quality Quality: Bilious Associated Signs and Symptoms Abdominal Pain Quality: Cramping Abdominal Pain Location: Diffuse Symptoms: Abdominal Pain PMH PMH Past Medical History: Yes Past Medical History: Anxiety, Diabetes, Dyslipidemia, GERD and Hypertension Past Surgical History: Yes Surgical History: Cholecystectomy, Ortho Surgery and Other Family History History of Family Medical Conditions: Yes Family Medical History: Diabetes Mellitus and Hypertension Social History Does patient currently use any type of tobacco product: No Have you used tobacco products in the last 12 months: No Type of Tobacco Use: None Does any household member use tobacco: No Alcohol Use: None Do you use any recreational Drugs:: No Lives With: Family Lives Where: Home infectious screening In the last 2 months have you had wt loss of >10#?: NO Have you had fever, night sweats or hemotysis?: No Have you traveled outside the country in the last 6 months?: No Isolation: Standard ROS Review of Systems Constitutional: Weakness and Fatigue Eyes: No Symptoms Reported ENTM: No Symptoms Reported Respiratoy: Short of Breath Cardiovascular: Chest Pain Gastrointestinal/Abdominal: Abdominal Pain, Nausea and Vomiting Genitourinary: No Symptoms Reported Neurological: No Symptoms Reported Integumentary: No Symptoms Reported Hematologic/Lymphatic: No Symptoms Reported Endocrine: No Symptoms Reported Psychiatric: No Symptoms Reported All Other Systems: Reviewed and Negative PE Vital Signs Vitals: Temperature 98.1 F Pulse Rate [Right Brachial] 79 Pulse Rate [Left Brachial] 113 Pulse Rate 113 Respiratory Rate 18 Blood Pressure [Right Arm] 156/72 Blood Pressure [Left Arm] 238/130 Blood Pressure [Left Radial 160/102 Artery] Blood Pressure 195/95 O2 Sat by Pulse Oximetry 96 General Limitations: No Limitations General Appearance: Alert Head Head Exam: Atraumatic Eyes Eye exam: PERRL; negative Scleral Icterus and Conjunctival Injection ENT ENT Exam: Normal Oropharynx, Normal External Ear Exam and TM's Normal Bilaterally Neck Neck Exam: Trachea Midline; negative Tenderness, Meningismus and Lymphadenopathy Chest Chest Inspection: Symmetric Chest Wall Rise Respiratory Respiratory Exam: Respiratory Distress Respiratory Exam: Bilateral: Clear to Auscultation Cardiovascular Cardiovascular Exam: Regular Rate and Normal Rhythm Abdominal Exam Abdominal Exam: Normal Inspection, Normal Bowel Sounds, Soft and Tenderness Abdominal Tenderness: Diffuse and Moderate Exam: Male: Deferred Extremities Extremities Exam: Normal Inspection Back Back Exam: Normal Inspection Neurologic Neurological Exam: Alert, Oriented X3 and CN II-XII Intact; negative Motor Sensory Deficit Psychiatric Psychiatric Exam: Normal Affect and Anxious Skin Skin Exam: Intact MDM Differential Diagnosis Differential Diagnosis: Considerations may Include:: Bowel Obstruction, Cholecystitis, Diabetes/DKA, Gastritis, Gastroenteritis, Pancreatitis, PUD, Urinary Tract Infection and Urolithiasis COURSE Treatment Treatment: SEE ORDERS. Education/Counseling Education/Counseling: Patient Educated On: Diagnosis ROR Labs Reviewed Laboratory Results Reviewed?: Yes Result Diagrams: 05/01/18 06:30 05/01/18 04:45 Laboratory: WBC 7.5 X10^3/uL (3.6-10.0) 05/01/18 06:30 RBC 3.67 X10^6/uL (4.7-6.0) L 05/01/18 06:30 Hgb 10.0 g/dL (13.5-18.0) L D 05/01/18 06:30 Hct 30.1 % (42.0-54.0) L 05/01/18 06:30 MCV 82.1 fL (80.0-100.0) 05/01/18 06:30 MCH 27.3 pg (27.0-34.0) 05/01/18 06:30 MCHC 33.3 g/dL (33.0-35.0) 05/01/18 06:30 RDW 13.6 % (11.6-16.5) 05/01/18 06:30 Plt Count 235 X10^3/uL (150.0-450.0) 05/01/18 06:30 Plt Count Comment Adequate (ADEQUATE) 04/29/18 12:25 MPV 8.5 fL (7.4-11.0) 05/01/18 06:30 Neut % (Auto) 66.4 % (42.0-75.0) 05/01/18 06:30 Lymph % (Auto) 24.5 % (21.0-51.0) 05/01/18 06:30 Mineral % (Auto) 6.9 % (0.0-13.0) 05/01/18 06:30 Eos % (Auto) 1.5 % (0.9-2.9) 05/01/18 06:30 Baso % (Auto) 0.7 % (0.2-1.0) 05/01/18 06:30 Neut # (Auto) 5.0 x10^3/uL (2.2-4.8) H 05/01/18 06:30 Lymph # (Auto) 1.8 X10^3/uL (1.3-2.9) 05/01/18 06:30 Mineral # (Auto) 0.5 x10^3/uL (0.3-0.8) 05/01/18 06:30 Eos # (Auto) 0.1 x10^3/uL (0.0-0.2) 05/01/18 06:30 Baso # (Auto) 0.1 X10^3/uL (0.0-0.1) 05/01/18 06:30 Absolute Nucleated RBC 0.0 /100WBC 05/01/18 06:30 Total Counted 100 04/29/18 12:25 Neutrophils % (Manual) 66 % (39-76) 04/29/18 12:25 Band Neutrophils % 2 % (0-10) 04/29/18 12:25 Lymphocytes % (Manual) 27 % (13-43) 04/29/18 12:25 Monocytes % (Manual) 5 % (4-9) 04/29/18 12:25 Plt Morphology Comment Normal (NORMAL) 04/29/18 12:25 RBC Morphology Normal (NORMAL) 04/29/18 12:25 Sodium 138 mmol/L (136-145) 05/01/18 04:45 Corrected Sodium 141 mmol/L (136-145) 05/01/18 04:45 Potassium 3.8 mmol/L (3.5-5.1) 05/01/18 04:45 Chloride 103 mmol/L (98-107) 05/01/18 04:45 Carbon Dioxide 26.4 mmol/L (21-32) 05/01/18 04:45 BUN 14 mg/dL (7-18) 05/01/18 04:45 Creatinine 0.91 mg/dL (0.70-1.30) 05/01/18 04:45 Est GFR (MDRD) Af Amer > 60 (>60) 05/01/18 04:45 Est GFR (MDRD) Non-Af > 60 (>60) 05/01/18 04:45 Glucose 208 mg/dL (65-99) H 05/01/18 04:45 POC Glucose (mg/dL) 211 mg/dL (65-99) H 05/01/18 11:05 Calcium 7.4 mg/dL (8.5-10.1) L 05/01/18 04:45 Corrected Calcium 8.4 mg/dL (8.5-10.1) L 05/01/18 04:45 Magnesium 1.4 mg/dL (1.7-2.9) L 05/01/18 06:30 Total Bilirubin 0.50 mg/dL (0.2-1.0) 05/01/18 04:45 AST 20 Units/L (15-37) 05/01/18 04:45 ALT 18 Units/L (12-78) 05/01/18 04:45 Alkaline Phosphatase 70 Units/L (46-116) 05/01/18 04:45 Creatine Kinase 115 Units/L (39-308) 04/30/18 01:15 CK-MB (CK-2) 2.0 ng/mL (0-4.0) 04/30/18 01:15 CK/CKMB % Calc 1.7 % (<4) 04/30/18 01:15 Troponin I < 0.02 ng/mL (0-1.5) 04/30/18 01:15 Total Protein 6.1 g/dL (6.4-8.2) L 05/01/18 04:45 Albumin 2.8 g/dL (3.4-5.0) L 05/01/18 04:45 Globulin 3.3 g/dL (2.5-4.5) 05/01/18 04:45 Albumin/Globulin Ratio 0.8 Ratio (1.1-2.1) L 05/01/18 04:45 Amylase 79 Units/L (25-115) 04/29/18 12:25 Lipase 92 Units/L (73-393) 04/29/18 12:25 Specimen Type Clean catch urine 04/29/18 12:45 Urine Color Pale yellow (YELLOW) 04/29/18 12:45 Urine Appearance Clear (CLEAR) 04/29/18 12:45 Urine pH 8.0 (5.0 - 8.0) 04/29/18 12:45 Ur Specific [place] 1.015 (1.000-1.030) 04/29/18 12:45 Urine Protein 2+ (NEGATIVE) 04/29/18 12:45 Urine Glucose (UA) 4+ (NEGATIVE) 04/29/18 12:45 Urine Ketones 2+ (NEGATIVE) 04/29/18 12:45 Urine Occult Blood 2+ (NEGATIVE) 04/29/18 12:45 Urine Nitrite Negative (NEGATIVE) 04/29/18 12:45 Urine Bilirubin Negative (NEGATIVE) 04/29/18 12:45 Urine Urobilinogen Normal (NORMAL) 04/29/18 12:45 Ur Leukocyte Esterase Negative (NEGATIVE) 04/29/18 12:45 Urine RBC 3-5 /HPF (NONE SEEN) 04/29/18 12:45 Urine WBC 0-2 /HPF (NONE SEEN) 04/29/18 12:45 Ur Squamous Epith Cells Rare /HPF (NEGATIVE) 04/29/18 12:45 Urine Bacteria Negative /HPF (NEGATIVE) 04/29/18 12:45 Ur Culture Indicated? No/not indicated 04/29/18 12:45 Urine Opiates Screen Negative (NEG=<300) 04/29/18 12:45 Urine Methadone Screen Negative (NEG=<300) 04/29/18 12:45 Ur Barbiturates Screen Negative (NEG=<200) 04/29/18 12:45 Ur Phencyclidine Scrn Negative (NEG=<25) 04/29/18 12:45 Ur Amphetamines Screen Negative (NEG=<1000) 04/29/18 12:45 U Benzodiazepines Scrn Negative (NEG=<200) 04/29/18 12:45 Urine Cocaine Screen Negative (NEG=<300) 04/29/18 12:45 U Marijuana (THC) Screen Negative (NEG=<50) 04/29/18 12:45 Acetone, Semi-Quant Negative (NEGATIVE) 04/29/18 12:25 XRAY XRAY Interpreted by: Radiologist XRAY Findings: REPORT DISCUSS WITH PATIENT. Instructions Instructions: Nausea and Vomiting, Adult, [id number] Hypertension, [id number]
[2018-04-29] MEDS ORDERED: NS 1000 ML 1,000 ML ONE (12:07)
[2018-04-29] MEDS ORDERED: NS 1000 ML 1,000 ML IV ONE ×2 (12:23→14:44)
[2018-04-29] MEDS ORDERED: DEMEROL INJ IVP ONE (12:24)
[2018-04-29] MEDS ORDERED: PHENERGAN INJ 25 MG IV ONE (12:24)
[2018-04-29] MEDS ORDERED: PHENERGAN INJ 25 MG ONE (12:34)
[2018-04-29] MEDS ORDERED: DEMEROL INJ ONE (12:34)
[2018-04-29 12:39] LABS: BASOPHILS % (AUTO) 0.6 % (0.2-1.0); EOSINOPHILS % (AUTO) 0.5 % (0.9-2.9); HEMATOCRIT 38.9 % (42.0-54.0); HEMOGLOBIN 13.1 g/dL (13.5-18.0); LYMPHOCYTES # (AUTO) 1.1 X10^3/uL (1.3-2.9); LYMPHOCYTES % (AUTO) 16.3 % (21.0-51.0); MEAN CORPUSCULAR HEMOGLOBIN 27.5 pg (27.0-34.0); MEAN CORPUSCULAR HGB CONC 33.6 g/dL (33.0-35.0); MEAN CORPUSCULAR VOLUME 81.9 fL (80.0-100.0); MEAN PLATELET VOLUME 8.7 fL (7.4-11.0); MONOCYTES # (AUTO) 0.3 x10^3/uL (0.3-0.8); MONOCYTES % (AUTO) 3.7 % (0.0-13.0); NEUTROPHILS # (AUTO) 5.3 x10^3/uL (2.2-4.8); NEUTROPHILS % (AUTO) 78.9 % (42.0-75.0); PLATELET COUNT 331 X10^3/uL (150.0-450.0); RED BLOOD COUNT 4.75 X10^6/uL (4.7-6.0); RED CELL DISTRIBUTION WIDTH 13.5 % (11.6-16.5); WHITE BLOOD COUNT 6.8 X10^3/uL (3.6-10.0)
[2018-04-29 12:46] LABS: BAND NEUTROPHILS % 2 % (0-10); PLATELET MORPHOLOGY COMMENT NORMAL (NORMAL)
[2018-04-29 12:47] LABS: ALANINE AMINOTRANSFERASE 26 Units/L (12-78); ALBUMIN 4.7 g/dL (3.4-5.0); ALKALINE PHOSPHATASE 125 Units/L (46-116); AMYLASE 79 Units/L (25-115); ASPARTATE AMINO TRANSFERASE 18 Units/L (15-37); BLOOD UREA NITROGEN 15 mg/dL (7-18); CALCIUM 9.6 mg/dL (8.5-10.1); CARBON DIOXIDE 29.4 mmol/L (21-32); CHLORIDE 95 mmol/L (98-107); COR NA(FOR HYPERGLY) 144 mmol/L (136-145); CREATININE 1.16 mg/dL (0.70-1.30); LIPASE 92 Units/L (73-393); SODIUM 139 mmol/L (136-145); TOTAL PROTEIN 9.7 g/dL (6.4-8.2); eGFR NON BLACK RACES > 60 (>60)
[2018-04-29 12:58] LABS: BILIRUBIN,URINE NEGATIVE (NEGATIVE); BLOOD/HEMOGLOBIN,URINE 2+ (NEGATIVE); GLUCOSE, URINE 4+ (NEGATIVE); KETONES,URINE 2+ (NEGATIVE); LEUKOCYTE ESTERASE ,URINE NEGATIVE (NEGATIVE); NITRITES,URINE NEGATIVE (NEGATIVE); PROTEIN,URINE 2+ (NEGATIVE); UROBILINOGEN,URINE NORMAL (NORMAL)
[2018-04-29 13:00] LABS: CKMB % 1.5 % (<4); CREATINE KINASE 153 Units/L (39-308); CREATINE KINASE MB 2.3 ng/mL (0-4.0); TROPONIN I < 0.02 ng/mL (0-1.5)
[2018-04-29] MEDS ORDERED: NS 1000 ML 1,000 ML IV SCH (13:00)
[2018-04-29 13:07] LABS: APPEARANCE,URINE CLEAR (CLEAR); COLOR,URINE PALE YELLOW (YELLOW)
[2018-04-29 13:08] LABS: BACTERIA,URINE NEGATIVE /HPF (NEGATIVE); SQUAMOUS EPITHELIAL CELL,UR RARE /HPF (NEGATIVE)
--- NOTE | 2018-04-29 13:21 | CT ---
HISTORY: Vomiting, abdominal pain Study: CT abdomen pelvis without contrast Comparison: 04/18/2018 Technique: Axial noncontrast images with coronal and sagittal reformats. Dose reduction procedures were used with mA/kv adjusted for body size. The examination is limited due to the lack of intravenous and the lack of oral contrast. The examination was performed in this manner at the sole discretion of the ordering caregiver and without input requested from or given by Radiology. Findings: The lung bases are clear. There is a small hiatal hernia present. There is thickening of the wall of the distal esophagus unchanged from the prior examination. Evaluation with endoscopy or barium esophagram may be of further diagnostic value. The liver, spleen, adrenal glands, and pancreas are within normal limits to the limitations of an unenhanced examination. The patient is status post cholecystectomy. The kidneys are unobstructed and without stones. No ureteral calculi are identified. The patient appears to be status post appendectomy. The abdominal aorta is normal. No enlarged intraperitoneal or retroperitoneal lymphadenopathy is identified. There are no findings suggestive of enteritis, diverticulitis, or colitis. Examination of the pelvis demonstrated no evidence for pelvic masses, pelvic fluid, or pelvic lymphadenopathy. No bladder abnormality is identified. No lytic or blastic skeletal lesions are identified. IMPRESSION: No acute intra-abdominal or intrapelvic abnormality to the limitations of an examination performed without intravenous and without oral contrast. Small hiatal hernia with apparent transmural thickening of the wall of the distal esophagus. Evaluation with esophagram or endoscopy may be of further diagnostic value if clinically indicated Reported By:
[2018-04-29] MEDS: NS 1000 ML 1,000 ML IV SCH (16:05)
[2018-04-29] MEDS ORDERED: DEMEROL INJ IVP PRN (16:07)
[2018-04-29] MEDS ORDERED: PHENERGAN INJ 25 MG IV PRN (16:08)
[2018-04-29] MEDS ORDERED: PHENERGAN INJ 25 MG IVP PRN (16:46)
[2018-04-29] MEDS ORDERED: HumuLIN R SUBCUT PRN (19:35)
[2018-04-29 19:37] LABS: CKMB % 1.2 % (<4); CREATINE KINASE 161 Units/L (39-308); CREATINE KINASE MB 1.9 ng/mL (0-4.0); TROPONIN I < 0.02 ng/mL (0-1.5)
[2018-04-29] MEDS ORDERED: PROTONIX INJ 40 MG VIAL IVP SCH (20:00)
[2018-04-29] MEDS ORDERED: KLONOPIN TAB 1 MG PO PRN (20:29)
[2018-04-29] MEDS ORDERED: KLONOPIN TAB 1 MG PO SCH (21:00)
[2018-04-29] MEDS: LOPRESSOR TAB 50 MG PO SCH (21:16)
[2018-04-29] MEDS: COZAAR PO SCH (21:16)
[2018-04-29] MEDS: DEMEROL INJ IVP PRN (21:18)
[2018-04-29] MEDS ORDERED: REGLAN INJ 10 MG VIAL IVP PRN (23:14)
[2018-04-29] MEDS ORDERED: CATAPRES TAB 0.1 MG ONE (23:28)
[2018-04-29] MEDS ORDERED: APRESOLINE INJ 20 MG VIAL ONE (23:30)
[2018-04-29] MEDS: CATAPRES TAB 0.1 MG PO PRN (23:35)
[2018-04-29] MEDS: APRESOLINE INJ 20 MG VIAL IVP PRN (23:35)
[2018-04-30] MEDS: ZOFRAN INJ 4 MG VIAL IVP PRN ×2 (00:13→04:12)
[2018-04-30] MEDS: NS 1000 ML 1,000 ML IV SCH ×5 (00:50→19:21)
[2018-04-30 01:49] LABS: CKMB % 1.7 % (<4); CREATINE KINASE 115 Units/L (39-308); TROPONIN I < 0.02 ng/mL (0-1.5)
[2018-04-30] MEDS: DEMEROL INJ IVP PRN ×5 (03:30→21:09)
[2018-04-30 05:08] LABS: BASOPHILS % (AUTO) 0.4 % (0.2-1.0); HEMATOCRIT 38.9 % (42.0-54.0); HEMOGLOBIN 12.7 g/dL (13.5-18.0); LYMPHOCYTES # (AUTO) 1.1 X10^3/uL (1.3-2.9); LYMPHOCYTES % (AUTO) 7.9 % (21.0-51.0); MEAN CORPUSCULAR HEMOGLOBIN 26.8 pg (27.0-34.0); MEAN CORPUSCULAR HGB CONC 32.7 g/dL (33.0-35.0); MEAN CORPUSCULAR VOLUME 82.2 fL (80.0-100.0); MEAN PLATELET VOLUME 9.2 fL (7.4-11.0); MONOCYTES # (AUTO) 0.7 x10^3/uL (0.3-0.8); MONOCYTES % (AUTO) 4.8 % (0.0-13.0); NEUTROPHILS # (AUTO) 11.9 x10^3/uL (2.2-4.8); NEUTROPHILS % (AUTO) 86.9 % (42.0-75.0); PLATELET COUNT 315 X10^3/uL (150.0-450.0); RED BLOOD COUNT 4.74 X10^6/uL (4.7-6.0); RED CELL DISTRIBUTION WIDTH 13.7 % (11.6-16.5); WHITE BLOOD COUNT 13.7 X10^3/uL (3.6-10.0)
[2018-04-30 05:27] LABS: ALANINE AMINOTRANSFERASE 21 Units/L (12-78); ALKALINE PHOSPHATASE 107 Units/L (46-116); ASPARTATE AMINO TRANSFERASE 12 Units/L (15-37); BLOOD UREA NITROGEN 16 mg/dL (7-18); CALCIUM 8.7 mg/dL (8.5-10.1); CARBON DIOXIDE 25.1 mmol/L (21-32); CHLORIDE 99 mmol/L (98-107); COR NA(FOR HYPERGLY) 144 mmol/L (136-145); CREATININE 1.08 mg/dL (0.70-1.30); SODIUM 140 mmol/L (136-145); TOTAL PROTEIN 8.6 g/dL (6.4-8.2); eGFR NON BLACK RACES > 60 (>60)
[2018-04-30] MEDS: PROTONIX INJ 40 MG VIAL IVP SCH ×2 (08:19→21:09)
[2018-04-30] MEDS: LOPRESSOR TAB 50 MG PO SCH ×2 (08:19→21:09)
[2018-04-30] MEDS: COZAAR PO SCH (08:19)
[2018-04-30] MEDS: PHENERGAN INJ 25 MG IVP PRN ×2 (08:20→17:45)
[2018-04-30] MEDS: APRESOLINE INJ 20 MG VIAL IVP PRN (12:02)
[2018-04-30] MEDS: CATAPRES TAB 0.1 MG PO PRN (21:09)
[2018-05-01] MEDS: NS 1000 ML 1,000 ML IV SCH ×3 (03:12→12:21)
[2018-05-01] MEDS: DEMEROL INJ IVP PRN ×2 (04:09→09:49)
[2018-05-01 05:29] LABS: ALANINE AMINOTRANSFERASE 18 Units/L (12-78); ALBUMIN 2.8 g/dL (3.4-5.0); ALKALINE PHOSPHATASE 70 Units/L (46-116); ASPARTATE AMINO TRANSFERASE 20 Units/L (15-37); BLOOD UREA NITROGEN 14 mg/dL (7-18); CALCIUM 7.4 mg/dL (8.5-10.1); CARBON DIOXIDE 26.4 mmol/L (21-32); CHLORIDE 103 mmol/L (98-107); COR CA(FOR HYPOALB) 8.4 mg/dL (8.5-10.1); COR NA(FOR HYPERGLY) 141 mmol/L (136-145); CREATININE 0.91 mg/dL (0.70-1.30); SODIUM 138 mmol/L (136-145); TOTAL PROTEIN 6.1 g/dL (6.4-8.2); eGFR NON BLACK RACES > 60 (>60)
[2018-05-01] MEDS ORDERED: K-DUR TAB 20 MEQ PO PRN (06:22)
[2018-05-01] MEDS ORDERED: POTASSIUM CHL 40 MEQ/NS 0.45% 500 ML IV PRN (06:22)
[2018-05-01] MEDS ORDERED: MICRO K EXTEN CAP 10 MEQ PO PRN (06:22)
[2018-05-01] MEDS ORDERED: K-RIDER 10 MEQ/NS 100 ML 10 MEQ/100 ML BAG IV PRN (06:22)
[2018-05-01] MEDS ORDERED: POTASSIUM CHL 60 MEQ/NS 0.45% 500 ML IV PRN (06:22)
[2018-05-01] MEDS ORDERED: KLOR-CON PO PRN (06:22)
[2018-05-01] MEDS ORDERED: POTASSIUM CHLORIDE LIQ 20 MEQ UDC PO PRN (06:22)
[2018-05-01 06:47] LABS: BASOPHILS # (AUTO) 0.1 X10^3/uL (0.0-0.1); BASOPHILS % (AUTO) 0.7 % (0.2-1.0); EOSINOPHILS # (AUTO) 0.1 x10^3/uL (0.0-0.2); EOSINOPHILS % (AUTO) 1.5 % (0.9-2.9); HEMATOCRIT 30.1 % (42.0-54.0); LYMPHOCYTES # (AUTO) 1.8 X10^3/uL (1.3-2.9); LYMPHOCYTES % (AUTO) 24.5 % (21.0-51.0); MEAN CORPUSCULAR HEMOGLOBIN 27.3 pg (27.0-34.0); MEAN CORPUSCULAR HGB CONC 33.3 g/dL (33.0-35.0); MEAN CORPUSCULAR VOLUME 82.1 fL (80.0-100.0); MEAN PLATELET VOLUME 8.5 fL (7.4-11.0); MONOCYTES # (AUTO) 0.5 x10^3/uL (0.3-0.8); MONOCYTES % (AUTO) 6.9 % (0.0-13.0); NEUTROPHILS % (AUTO) 66.4 % (42.0-75.0); PLATELET COUNT 235 X10^3/uL (150.0-450.0); RED BLOOD COUNT 3.67 X10^6/uL (4.7-6.0); RED CELL DISTRIBUTION WIDTH 13.6 % (11.6-16.5)
[2018-05-01 06:53] LABS: WHITE BLOOD COUNT 7.5 X10^3/uL (3.6-10.0)
[2018-05-01] MEDS ORDERED: MAGNESIUM SULFATE 1 GRAM/100 mL PREMIX 1 GM/100 ML BAG IV PRN (07:01)
[2018-05-01] MEDS: COZAAR PO SCH (09:48)
[2018-05-01] MEDS: LOPRESSOR TAB 50 MG PO SCH (09:49)
[2018-05-01] MEDS: PROTONIX INJ 40 MG VIAL IVP SCH (09:49)
[2018-05-01 12:22] VITALS: BP 156/72
--- NOTE | 2018-05-01 12:54 | CT ---
HISTORY: Cough cold and congestion. Bronchitis. Prior history of hypertension and diabetes. Prior history of pulmonary nodules. Prior surgical history of back surgery, gallbladder and pancreas surgery. Study: Noncontrast CT scan of the chest Comparison: CTA chest 04/18/2018. Technique: Non contrasted CT images of the chest are reviewed in axial, coronal and sagittal planes. Dose reduction techniques utilized automatic exposure control. Findings: There are changes of mild bronchiectasis in the lung bases. Increased interstitial markings are present in the lung bases without dense consolidation or fluid accumulation. A partly solid nodule is seen involving the axillary segment of the right upper lobe measuring 6.2 mm in size. There is a pleural based solid nodule present in the right lower lobe region posteriorly measuring 8.1 mm. Both of these may be inflammatory, as these were not clearly present on prior studies. According to current Fleischner Society recommendations, CT is recommended at 3-6 months and then management based on nodular appearance at that time. There is no evidence adenopathy. No pleural fluid or thoracic aortic aneurysm is seen. There is a Port-A-Cath is seen inserted via a left internal jugular approach with the catheter tip in the right atrium. Osseous structures are intact liver and adrenal glands are normal. There are surgical clips from cholecystectomy. IMPRESSION: No consolidation or significant pleural fluid accumulation. Mild bibasilar bronchiectasis with increased interstitial markings in the lung bases. Partly solid nodule is seen involving the axillary segment of the right upper lobe measuring 6.2 mm in size. A pleural based solid nodule is seen on the right side inferiorly. Both of these are likely inflammatory, but will need CT follow-up as noted above. Reported By:
== END 2018-05-01 14:40 | disposition home or self-care (01) | DRG 74 ==
LOC: ER 11:49 → MED/SURG 11:49
PROVIDERS: ADMIT Internal Medicine; ATTEND Internal Medicine
DX: E11.43 Type 2 diabetes mellitus with diabetic autonomic (poly)neuropathy; K31.84 Gastroparesis; R10.84 Generalized abdominal pain; F41.8 Other specified anxiety disorders; E78.2 Mixed hyperlipidemia; K21.9 Gastro-esophageal reflux disease without esophagitis; R94.31 Abnormal electrocardiogram [ECG] [EKG]; R19.7 Diarrhea, unspecified; I10 Essential (primary) hypertension; E11.65 Type 2 diabetes mellitus with hyperglycemia; Z79.899 Other long term (current) drug therapy; R06.02 Shortness of breath; R11.2 Nausea with vomiting, unspecified
CPT/HCPCS: 36415; 71250; 74176; 80053; 80307; 81001; 82009; 82150; 82550; 82553; 83690; 83735; 84484; 85025; 93005; 94760; 96365; 96367; 96374; 96375; 99231; 99238; 99283; 99284; C9113; G0378; G0434; J0360; J1642; J1815; J2175; J2405; J2550; J2765; J7030

== ENCOUNTER 2018-05-06 15:54 | Inpatient (IN) ==
[2018-05-06] MEDS ORDERED: NS 1000 ML 1,000 ML IV ONE ×2 (16:27→18:15)
[2018-05-06] MEDS ORDERED: NS 1000 ML 1,000 ML ONE ×2 (16:29→18:24)
[2018-05-06] MEDS ORDERED: DEMEROL INJ IVP ONE (16:33)
[2018-05-06] MEDS ORDERED: PHENERGAN INJ 25 MG IV ONE (16:33)
[2018-05-06] MEDS ORDERED: NORMODYNE INJ 100 MG VIAL IVP ONE (16:34)
[2018-05-06 16:36] LABS: BASOPHILS # (AUTO) 0.1 X10^3/uL (0.0-0.1); BASOPHILS % (AUTO) 1.1 % (0.2-1.0); EOSINOPHILS % (AUTO) 0.3 % (0.9-2.9); HEMATOCRIT 37.8 % (42.0-54.0); HEMOGLOBIN 12.7 g/dL (13.5-18.0); LYMPHOCYTES # (AUTO) 1.2 X10^3/uL (1.3-2.9); LYMPHOCYTES % (AUTO) 17.6 % (21.0-51.0); MEAN CORPUSCULAR HEMOGLOBIN 27.2 pg (27.0-34.0); MEAN CORPUSCULAR HGB CONC 33.5 g/dL (33.0-35.0); MEAN CORPUSCULAR VOLUME 81.2 fL (80.0-100.0); MEAN PLATELET VOLUME 8.7 fL (7.4-11.0); MONOCYTES # (AUTO) 0.4 x10^3/uL (0.3-0.8); MONOCYTES % (AUTO) 5.6 % (0.0-13.0); NEUTROPHILS # (AUTO) 5.1 x10^3/uL (2.2-4.8); NEUTROPHILS % (AUTO) 75.4 % (42.0-75.0); PLATELET COUNT 307 X10^3/uL (150.0-450.0); RED BLOOD COUNT 4.66 X10^6/uL (4.7-6.0); RED CELL DISTRIBUTION WIDTH 13.4 % (11.6-16.5); WHITE BLOOD COUNT 6.8 X10^3/uL (3.6-10.0)
[2018-05-06] MEDS ORDERED: DEMEROL INJ ONE (16:36)
[2018-05-06] MEDS ORDERED: PHENERGAN INJ 25 MG ONE (16:36)
[2018-05-06 16:42] LABS: BLOOD UREA NITROGEN 12 mg/dL (7-18); CARBON DIOXIDE 25.3 mmol/L (21-32); CHLORIDE 97 mmol/L (98-107); COR NA(FOR HYPERGLY) 141 mmol/L (136-145); CREATININE 1.07 mg/dL (0.70-1.30); SODIUM 138 mmol/L (136-145); eGFR NON BLACK RACES > 60 (>60)
[2018-05-06] MEDS ORDERED: NORMODYNE INJ 100 MG VIAL ONE (16:45)
[2018-05-06 16:47] LABS: ALANINE AMINOTRANSFERASE 20 Units/L (12-78); ALBUMIN 4.3 g/dL (3.4-5.0); ALKALINE PHOSPHATASE 97 Units/L (46-116); ASPARTATE AMINO TRANSFERASE 14 Units/L (15-37); TOTAL PROTEIN 8.8 g/dL (6.4-8.2)
[2018-05-06 16:49] LABS: PLATELET MORPHOLOGY COMMENT NORMAL (NORMAL)
[2018-05-06] MEDS ORDERED: BENADRYL INJ 50 MG VIAL IV ONE (18:15)
[2018-05-06] MEDS ORDERED: COMPAZINE INJ IVP ONE (18:15)
[2018-05-06] MEDS ORDERED: DILAUDID INJ IVP ONE ×2 (18:17→22:00)
[2018-05-06] MEDS ORDERED: DILAUDID INJ ONE ×2 (18:23→22:01)
[2018-05-06] MEDS ORDERED: BENADRYL INJ 50 MG VIAL ONE (18:23)
--- NOTE | 2018-05-06 18:47 | ED.ABDFE ---
HPI Time Seen Time Seen by Provider: 05/06/18 16:41 PCP Primary Care Physician: ethan Regalado Chief Complaint:: patient stated he has been having abd pain with nausea and vomiting since he was discharged from the hospital Source History Provided: Patient Mode of arrival Mode of Arrival: Ambulatory Timing Onset of Chief Complaint: 05/03/18 PMH PMH Past Medical History: Yes Past Medical History: Anxiety, Diabetes, Dyslipidemia, GERD and Hypertension Past Surgical History: Yes Surgical History: Cholecystectomy, Ortho Surgery and Other Family History History of Family Medical Conditions: Yes Family Medical History: Diabetes Mellitus and Hypertension Social History Does patient currently use any type of tobacco product: No Have you used tobacco products in the last 12 months: No Type of Tobacco Use: None Does any household member use tobacco: No Alcohol Use: None Do you use any recreational Drugs:: No Lives With: Family Lives Where: Home infectious screening In the last 2 months have you had wt loss of >10#?: NO Have you had fever, night sweats or hemotysis?: No Have you traveled outside the country in the last 6 months?: No Isolation: Standard PE Vital Signs Vitals: Temperature 98.2 F Pulse Rate [Left Brachial] 100 Pulse Rate 106 Respiratory Rate 16 Blood Pressure [Right Arm] 164/97 Blood Pressure [Left Arm] 209/123 Blood Pressure [Left Radial 160/102 Artery] Blood Pressure 236/128 O2 Sat by Pulse Oximetry 100 General Limitations: No Limitations General Appearance: Alert, In No Apparent Distress and Anxious Head Head Exam: Normal Inspection, Atraumatic and Normocephalic Eyes Eye exam: Normal Appearance, PERRL and EOMI ENT ENT Exam: Normal Exam and Normal Oropharynx Neck Neck Exam: Normal Inspection Chest Chest Inspection: Normal Inspection and Symmetric Chest Wall Rise Respiratory Respiratory Exam: Normal Lung Sounds Bilat and Accessory Muscle Use Respiratory Exam: Bilateral: Clear to Auscultation Cardiovascular Cardiovascular Exam: Regular Rate and Normal Rhythm Abdominal Exam Abdominal Tenderness: RUQ, Epigastrium and Suprapubic Rectal Rectal Exam: Deferred Back Back Exam: Normal Inspection and Full ROM Extremeties Extremities Exam: Normal Inspection and Full ROM External Exam: Female: Deferred : Speculum Exam (Female): Deferred : Bimanual Exam (female): Deferred Neurologic Neurological Exam: Alert, Oriented X3 and CN II-XII Intact Psychiatric Psychiatric Exam: Normal Affect and Normal Mood Skin Skin Exam: Warm, Dry and Intact ROR Labs Reviewed Result Diagrams: 05/06/18 16:25 05/06/18 19:55 Laboratory: WBC 6.8 X10^3/uL (3.6-10.0) 05/06/18 16:25 RBC 4.66 X10^6/uL (4.7-6.0) L 05/06/18 16:25 Hgb 12.7 g/dL (13.5-18.0) L 05/06/18 16:25 Hct 37.8 % (42.0-54.0) L 05/06/18 16:25 MCV 81.2 fL (80.0-100.0) 05/06/18 16:25 MCH 27.2 pg (27.0-34.0) 05/06/18 16:25 MCHC 33.5 g/dL (33.0-35.0) 05/06/18 16:25 RDW 13.4 % (11.6-16.5) 05/06/18 16:25 Plt Count 307 X10^3/uL (150.0-450.0) 05/06/18 16:25 Plt Count Comment Adequate (ADEQUATE) 05/06/18 16:25 MPV 8.7 fL (7.4-11.0) 05/06/18 16:25 Neut % (Auto) 75.4 % (42.0-75.0) H 05/06/18 16:25 Lymph % (Auto) 17.6 % (21.0-51.0) L 05/06/18 16:25 [place] % (Auto) 5.6 % (0.0-13.0) 05/06/18 16:25 Eos % (Auto) 0.3 % (0.9-2.9) L 05/06/18 16:25 Baso % (Auto) 1.1 % (0.2-1.0) H 05/06/18 16:25 Neut # (Auto) 5.1 x10^3/uL (2.2-4.8) H 05/06/18 16:25 Lymph # (Auto) 1.2 X10^3/uL (1.3-2.9) L 05/06/18 16:25 [place] # (Auto) 0.4 x10^3/uL (0.3-0.8) 05/06/18 16:25 Eos # (Auto) 0.0 x10^3/uL (0.0-0.2) 05/06/18 16:25 Baso # (Auto) 0.1 X10^3/uL (0.0-0.1) 05/06/18 16:25 Absolute Nucleated RBC 0.0 /100WBC 05/06/18 16:25 Total Counted 100 05/06/18 16:25 Neutrophils % (Manual) 85 % (39-76) H 05/06/18 16:25 Lymphocytes % (Manual) 13 % (13-43) 05/06/18 16:25 Monocytes % (Manual) 2 % (4-9) L 05/06/18 16:25 Plt Morphology Comment Normal (NORMAL) 05/06/18 16:25 RBC Morphology Normal (NORMAL) 05/06/18 16:25 Sodium 139 mmol/L (136-145) 05/06/18 19:55 Corrected Sodium 142 mmol/L (136-145) 05/06/18 19:55 Potassium 3.3 mmol/L (3.5-5.1) L 05/06/18 19:55 Chloride 100 mmol/L (98-107) 05/06/18 19:55 Carbon Dioxide 26.1 mmol/L (21-32) 05/06/18 19:55 BUN 11 mg/dL (7-18) 05/06/18 19:55 Creatinine 0.99 mg/dL (0.70-1.30) 05/06/18 19:55 Est GFR (MDRD) Af Amer > 60 (>60) 05/06/18 19:55 Est GFR (MDRD) Non-Af > 60 (>60) 05/06/18 19:55 Glucose 237 mg/dL (65-99) H 05/06/18 19:55 Calcium 8.1 mg/dL (8.5-10.1) L 05/06/18 19:55 Corrected Calcium TNP 05/06/18 16:25 Magnesium 1.4 mg/dL (1.7-2.9) L 05/06/18 19:55 Total Bilirubin 0.60 mg/dL (0.2-1.0) 05/06/18 16:25 AST 14 Units/L (15-37) L 05/06/18 16:25 ALT 20 Units/L (12-78) 05/06/18 16:25 Alkaline Phosphatase 97 Units/L (46-116) 05/06/18 16:25 Total Protein 8.8 g/dL (6.4-8.2) H 05/06/18 16:25 Albumin 4.3 g/dL (3.4-5.0) 05/06/18 16:25 Globulin 4.5 g/dL (2.5-4.5) 05/06/18 16:25 Albumin/Globulin Ratio 1.0 Ratio (1.1-2.1) L 05/06/18 16:25 Diagnosis Discharge Problem: Gastroparesis, Intractable vomiting with nausea
[2018-05-06 20:06] LABS: BLOOD UREA NITROGEN 11 mg/dL (7-18); CALCIUM 8.1 mg/dL (8.5-10.1); CARBON DIOXIDE 26.1 mmol/L (21-32); CHLORIDE 100 mmol/L (98-107); COR NA(FOR HYPERGLY) 142 mmol/L (136-145); CREATININE 0.99 mg/dL (0.70-1.30); SODIUM 139 mmol/L (136-145); eGFR NON BLACK RACES > 60 (>60)
[2018-05-06] MEDS ORDERED: K-LYTE EFFERVESCENT ONE (20:09)
[2018-05-06] MEDS ORDERED: K-LYTE EFFERVESCENT PO ONE (20:10)
[2018-05-06] MEDS ORDERED: ZOFRAN INJ 4 MG VIAL IVP ONE (21:52)
[2018-05-06] MEDS ORDERED: ZOFRAN INJ 4 MG VIAL ONE (21:57)
[2018-05-06] MEDS ORDERED: ZOFRAN INJ 4 MG VIAL 16 MG, ATIVAN INJ 2 MG VIAL 1 MG, DECADRON INJ 10 MG in NS 50 ML I... IV PRN (21:59)
[2018-05-06] MEDS ORDERED: MICRO K EXTEN CAP 10 MEQ PO PRN (23:09)
[2018-05-06] MEDS ORDERED: KLOR-CON PO PRN (23:09)
[2018-05-06] MEDS ORDERED: POTASSIUM CHLORIDE LIQ 20 MEQ UDC PO PRN (23:09)
[2018-05-06] MEDS ORDERED: POTASSIUM CHL 60 MEQ/NS 0.45% 500 ML IV PRN (23:09)
[2018-05-06] MEDS ORDERED: K-RIDER 10 MEQ/NS 100 ML 10 MEQ/100 ML BAG IV PRN (23:09)
[2018-05-06] MEDS ORDERED: POTASSIUM CHL 40 MEQ/NS 0.45% 500 ML IV PRN (23:09)
[2018-05-06] MEDS: NS 1000 ML 1,000 ML IV SCH (23:58)
[2018-05-06] MEDS: K-DUR TAB 20 MEQ PO PRN (23:58)
[2018-05-07] MEDS: MAGNESIUM SULFATE 1 GRAM/100 mL PREMIX 1 GM/100 ML BAG IV PRN ×4 (00:09→04:17)
[2018-05-07] MEDS ORDERED: DEMEROL INJ ONE (01:11)
[2018-05-07] MEDS: DEMEROL INJ IVP PRN ×3 (01:16→20:45)
[2018-05-07] MEDS ORDERED: MAALOX or MYLANTA PO PRN (04:10)
[2018-05-07] MEDS ORDERED: PEPCID TAB 20 MG ONE (04:12)
[2018-05-07] MEDS ORDERED: MAALOX or MYLANTA ONE (04:12)
[2018-05-07] MEDS ORDERED: PEPCID TAB 20 MG PO SCH (05:00)
[2018-05-07] MEDS ORDERED: DECADRON INJ PRESERVATIVE-FREE IM ONE (05:15)
[2018-05-07] MEDS ORDERED: ZOFRAN INJ 4 MG VIAL ONE (05:16)
[2018-05-07] MEDS ORDERED: NS 50 ML IV 50 ML IV ONE (05:16)
[2018-05-07] MEDS ORDERED: ATIVAN INJ 2 MG VIAL ONE (05:17)
[2018-05-07 05:28] LABS: ALANINE AMINOTRANSFERASE 18 Units/L (12-78); ALBUMIN 3.8 g/dL (3.4-5.0); ALKALINE PHOSPHATASE 85 Units/L (46-116); ASPARTATE AMINO TRANSFERASE 10 Units/L (15-37); BLOOD UREA NITROGEN 13 mg/dL (7-18); CALCIUM 8.2 mg/dL (8.5-10.1); CARBON DIOXIDE 23.6 mmol/L (21-32); CHLORIDE 96 mmol/L (98-107); COR NA(FOR HYPERGLY) 140 mmol/L (136-145); CREATININE 1.08 mg/dL (0.70-1.30); SODIUM 136 mmol/L (136-145); eGFR NON BLACK RACES > 60 (>60)
[2018-05-07 05:36] LABS: BILIRUBIN,URINE NEGATIVE (NEGATIVE); BLOOD/HEMOGLOBIN,URINE 2+ (NEGATIVE); GLUCOSE, URINE 4+ (NEGATIVE); KETONES,URINE NEGATIVE (NEGATIVE); LEUKOCYTE ESTERASE ,URINE NEGATIVE (NEGATIVE); NITRITES,URINE NEGATIVE (NEGATIVE); PROTEIN,URINE 3+ (NEGATIVE); UROBILINOGEN,URINE NORMAL (NORMAL)
[2018-05-07 05:46] LABS: APPEARANCE,URINE CLEAR (CLEAR); COLOR,URINE YELLOW (YELLOW)
[2018-05-07 05:47] LABS: BACTERIA,URINE NEGATIVE /HPF (NEGATIVE); RBC,URINE 0-2 /HPF (NONE SEEN); SQUAMOUS EPITHELIAL CELL,UR RARE /HPF (NEGATIVE)
[2018-05-07] MEDS: K-DUR TAB 20 MEQ PO PRN (06:03)
[2018-05-07] MEDS: HumuLIN R SC PRN ×4 (06:04→20:46)
[2018-05-07] MEDS: NS 1000 ML 1,000 ML IV SCH ×5 (06:05→22:34)
[2018-05-07 08:39] LABS: BASOPHILS % (AUTO) 0.5 % (0.2-1.0); EOSINOPHILS % (AUTO) 0.3 % (0.9-2.9); HEMATOCRIT 34.6 % (42.0-54.0); HEMOGLOBIN 11.5 g/dL (13.5-18.0); LYMPHOCYTES # (AUTO) 0.6 X10^3/uL (1.3-2.9); LYMPHOCYTES % (AUTO) 10.7 % (21.0-51.0); MEAN CORPUSCULAR HEMOGLOBIN 27.2 pg (27.0-34.0); MEAN CORPUSCULAR HGB CONC 33.2 g/dL (33.0-35.0); MEAN CORPUSCULAR VOLUME 81.9 fL (80.0-100.0); MEAN PLATELET VOLUME 8.7 fL (7.4-11.0); MONOCYTES # (AUTO) 0.2 x10^3/uL (0.3-0.8); MONOCYTES % (AUTO) 3.1 % (0.0-13.0); NEUTROPHILS # (AUTO) 4.7 x10^3/uL (2.2-4.8); NEUTROPHILS % (AUTO) 85.4 % (42.0-75.0); PLATELET COUNT 286 X10^3/uL (150.0-450.0); RED BLOOD COUNT 4.22 X10^6/uL (4.7-6.0); RED CELL DISTRIBUTION WIDTH 13.5 % (11.6-16.5); WHITE BLOOD COUNT 5.5 X10^3/uL (3.6-10.0)
[2018-05-07 09:28] LABS: PLATELET MORPHOLOGY COMMENT NORMAL (NORMAL)
--- NOTE | 2018-05-07 10:57 | RAD ---
History: Abdominal and epigastric pain Study: Acute abdominal series Comparison: CT examination of April 29 Findings: The lungs are clear and the heart size is normal. There is a Port-A-Cath via the left internal jugular vein. There is no pleural effusion. The bowel gas pattern is unremarkable. There are cholecystectomy clips. There is no abnormal abdominal calcification. Impression: No acute disease demonstrated Reported By:
[2018-05-07] MEDS: REGLAN INJ 10 MG VIAL IVP SCH ×3 (11:31→20:45)
[2018-05-07] MEDS ORDERED: K-LYTE EFFERVESCENT PO ONE (16:50)
[2018-05-07] MEDS: PEPCID 20 MG IV PREMIX* 20 MG/50 ML BAG IV SCH (20:45)
[2018-05-08 04:10] VITALS: BMI 22.4
[2018-05-08] MEDS: NS 1000 ML 1,000 ML IV SCH ×3 (04:29→13:35)
[2018-05-08] MEDS: DEMEROL INJ IVP PRN ×2 (04:30→12:30)
[2018-05-08] MEDS: HumuLIN R SC PRN ×2 (06:06→11:46)
[2018-05-08] MEDS: REGLAN INJ 10 MG VIAL IVP SCH ×2 (06:06→11:46)
[2018-05-08 06:31] LABS: ALANINE AMINOTRANSFERASE 14 Units/L (12-78); ALBUMIN 2.9 g/dL (3.4-5.0); ALKALINE PHOSPHATASE 74 Units/L (46-116); ASPARTATE AMINO TRANSFERASE 12 Units/L (15-37); BASOPHILS % (AUTO) 0.4 % (0.2-1.0); BLOOD UREA NITROGEN 12 mg/dL (7-18); CALCIUM 7.5 mg/dL (8.5-10.1); CARBON DIOXIDE 24.5 mmol/L (21-32); CHLORIDE 104 mmol/L (98-107); COR CA(FOR HYPOALB) 8.4 mg/dL (8.5-10.1); COR NA(FOR HYPERGLY) 142 mmol/L (136-145); CREATININE 0.85 mg/dL (0.70-1.30); EOSINOPHILS % (AUTO) 0.1 % (0.9-2.9); HEMATOCRIT 30.2 % (42.0-54.0); LYMPHOCYTES # (AUTO) 2.1 X10^3/uL (1.3-2.9); LYMPHOCYTES % (AUTO) 24.9 % (21.0-51.0); MEAN CORPUSCULAR HEMOGLOBIN 27.4 pg (27.0-34.0); MEAN CORPUSCULAR HGB CONC 33.3 g/dL (33.0-35.0); MEAN CORPUSCULAR VOLUME 82.3 fL (80.0-100.0); MEAN PLATELET VOLUME 9.2 fL (7.4-11.0); MONOCYTES # (AUTO) 0.6 x10^3/uL (0.3-0.8); MONOCYTES % (AUTO) 7.1 % (0.0-13.0); NEUTROPHILS # (AUTO) 5.7 x10^3/uL (2.2-4.8); NEUTROPHILS % (AUTO) 67.5 % (42.0-75.0); PLATELET COUNT 255 X10^3/uL (150.0-450.0); RED BLOOD COUNT 3.67 X10^6/uL (4.7-6.0); RED CELL DISTRIBUTION WIDTH 13.5 % (11.6-16.5); SODIUM 139 mmol/L (136-145); TOTAL PROTEIN 6.2 g/dL (6.4-8.2); WHITE BLOOD COUNT 8.4 X10^3/uL (3.6-10.0); eGFR NON BLACK RACES > 60 (>60)
[2018-05-08] MEDS: PEPCID 20 MG IV PREMIX* 20 MG/50 ML BAG IV SCH (08:45)
--- NOTE | 2018-05-08 10:47 | RAD ---
HISTORY: Chest pain Study: PA and lateral chest Comparison: May 07, 2018 and May 01, 2018 Findings: There is a left-sided Port-A-Cath which terminates in the SVC. The trachea is midline. The cardiac silhouette is unremarkable. There is scar versus subsegmental atelectasis in the right midlung. There is no effusion or pneumothorax. The bony thorax is grossly unremarkable. IMPRESSION: Right midlung scar versus subsegmental atelectasis without definite acute cardiopulmonary disease. Reported By:
[2018-05-08 12:36] VITALS: BP 174/91
--- NOTE | 2018-05-08 14:33 | DR.H&P ---
H&P - History & Physical for Day of: H&P Date: 05/06/18 - Chief Complaint Chief Complaint: ABDOMINAL PAIN, N/V - History of Present Illness History of Present Illness: 47 BM ER ADMISSION AFTER PRESENTING WITH CO UPPER ABDOMINAL PAIN N/V. PT HAS PMH OF DM1 WITH GASTROPARESIS. PT HAD ABD SERIES IN ER WITHOUT ACUTE FINDINGS. PT ACETONE NEGATIVE. PT ADMITTED FOR TREATMENT OF ACUTE ILLNESS - Past Medical History Past Medical History: Hypertension, Dyslipidemia, Diabetes, Anxiety, GERD Additional Medical History: Diabetic Neuropathy, Diabetic Gastroparesis, Hiatal Hernia, Gastric Ulcer, Gall Bladder Disease, Back Pain - Past Surgical History Surgical History: Cholecystectomy, Ortho Surgery, Other Additional Surgical History: Right foot I&D - Family History Family Medical History: Diabetes Mellitus, Hypertension - Social History Does patient currently use any type of tobacco product: No Have you used tobacco products in the last 12 months: No Type of Tobacco Use: None Does any household member use tobacco: No Alcohol Use: None Drug Use: None - Medications Home Medications: codeine Allergy (Verified 04/29/18 11:50) morphine Allergy (Verified 04/29/18 11:50) - Review of Systems Constitutional: Weakness Eyes: No Symptoms Reported ENT: No Symptoms Reported Respiratory: Pleuritic Pain Cardiovascular: No Symptoms Reported Gastrointestinal: Nausea, Vomiting, Abdominal Pain. denies: Diarrhea, Constipation Genitourinary: No Symptoms Reported Musculoskeletal: No Symptoms Reported Skin: No Symptoms Reported Neurological: No Symptoms Reported - Physical Exam Vital Signs: Temperature 98.2 F Pulse Rate [Left Brachial] 89 Pulse Rate 106 Respiratory Rate 20 Blood Pressure [Right Arm] 164/97 Blood Pressure [Left Arm] 174/91 Blood Pressure [Left Radial 160/102 Artery] Blood Pressure 236/128 O2 Sat by Pulse Oximetry 99 Oriented: Normal Eyes: Normal Ear: Normal Nose: Normal Throat: Normal Respiratory: Clear Throughout Cardiovascular: Normal : Normal Auscultation: Bowel Sounds: Normal Palpation: Normal Tenderness: LUQ, Epigastric, Mild Skin: Decreased Turgur Musculoskeletal: Normal Psychiatric: Normal Mood Description: Calm Speech Pattern: Clear, Appropriate - Assessment/Plan (1) Intractable vomiting with nausea Status: Acute Plan: ADMIT, ADMISSION LABS, SERUM ACETONE. ABD SERIES ON ADMISSION. BLOOD PRESSURE AND BLOOD SUGAR CONTROL, SSI. GENTLE IV HYDRATION, I &OS. PAIN CONTROL AND PPI THERAPY (2) Diabetic gastroparesis Status: Acute (3) Hypertension, uncontrolled Status: Acute (4) Hypertension Qualifiers: Status: Chronic (5) Diabetes mellitus type 1 Qualifiers: Status: Chronic (6) GERD (gastroesophageal reflux disease) Qualifiers: Status: Chronic - Allergies Allergies/Adverse Reactions: Allergies Allergy/AdvReac Type Severity Reaction Status Date / Time codeine Allergy Verified 04/29/18 11:50 morphine Allergy Verified 04/29/18 11:50
--- NOTE | 2018-05-08 14:35 | PCM.PROG ---
Progress Note - Progress Note for Day of Date of Exam: 05/07/18 - Subjective Subjective: 47 BM ER ADMISSION WITH ABDOMINAL PAIN WITH HX OF DIABETIC GASTROPARESIS AND GERD. PT SERUM ACETONE NEGATIVE. PT REPORTS CONTINUES WITH MILD UPPER ABDOMINAL TENDERNESS, BUT IMPROVING. PT ASKING TO ADVANCE DIET. - Past Medical Family Social History Past Med/Fam/Surg Hx: No changes since H&P Allergies: Allergies codeine Allergy (Verified 04/29/18 11:50) morphine Allergy (Verified 04/29/18 11:50) - Review of Systems ROS: No change since H&P - Vital Signs and I&O's Vital Signs: Temperature 98.2 F Pulse Rate [Left Brachial] 89 Pulse Rate 106 Respiratory Rate 20 Blood Pressure [Right Arm] 164/97 Blood Pressure [Left Arm] 174/91 Blood Pressure [Left Radial 160/102 Artery] Blood Pressure 236/128 O2 Sat by Pulse Oximetry 99 Intake and Output: Intake & Output 05/06/18 05/07/18 05/08/18 05/09/18 11:59 11:59 11:59 11:59 Intake Total 3672 / 3672 3320 / 3320 Output Total 1200 / 1200 Balance 2472 / 2472 3320 / 3320 - Physical Exam Oriented: Normal Eyes: Normal Ear: Normal Nose: Normal Throat: Normal Respiratory: Normal Cardiovascular: Normal : Normal Auscultation: Bowel Sounds: Normal Tenderness: LUQ, Epigastric, Mild Skin: Decreased Turgur Musculoskeletal: Normal Psychiatric: Normal Mood Description: Calm Speech Pattern: Clear, Appropriate - Laboratory and Diagnostics Result Diagrams: 05/08/18 04:29 05/08/18 04:29 Labs: Laboratory WBC 8.4 X10^3/uL (3.6-10.0) 05/08/18 04:29 RBC 3.67 X10^6/uL (4.7-6.0) L 05/08/18 04:29 Hgb 10.0 g/dL (13.5-18.0) L 05/08/18 04:29 Hct 30.2 % (42.0-54.0) L 05/08/18 04:29 MCV 82.3 fL (80.0-100.0) 05/08/18 04:29 MCH 27.4 pg (27.0-34.0) 05/08/18 04:29 MCHC 33.3 g/dL (33.0-35.0) 05/08/18 04: RDW 13.5 % (11.6-16.5) 05/08/18 04:29 Plt Count 255 X10^3/uL (150.0-450.0) 05/08/18 04:29 Plt Count Comment Adequate (ADEQUATE) 05/07/18 08:25 MPV 9.2 fL (7.4-11.0) 05/08/18 04:29 Neut % (Auto) 67.5 % (42.0-75.0) 05/08/18 04:29 Lymph % (Auto) 24.9 % (21.0-51.0) 05/08/18 04:29 [place] % (Auto) 7.1 % (0.0-13.0) 05/08/18 04:29 Eos % (Auto) 0.1 % (0.9-2.9) L 05/08/18 04:29 Baso % (Auto) 0.4 % (0.2-1.0) 05/08/18 04:29 Neut # (Auto) 5.7 x10^3/uL (2.2-4.8) H 05/08/18 04:29 Lymph # (Auto) 2.1 X10^3/uL (1.3-2.9) 05/08/18 04:29 [place] # (Auto) 0.6 x10^3/uL (0.3-0.8) 05/08/18 04:29 Eos # (Auto) 0.0 x10^3/uL (0.0-0.2) 05/08/18 04:29 Baso # (Auto) 0.0 X10^3/uL (0.0-0.1) 05/08/18 04:29 Absolute Nucleated RBC 0.0 /100WBC 05/08/18 04:29 Total Counted 100 05/07/18 08:25 Neutrophils % (Manual) 81 % (39-76) H 05/07/18 08:25 Lymphocytes % (Manual) 14 % (13-43) 05/07/18 08:25 Monocytes % (Manual) 5 % (4-9) 05/07/18 08:25 Plt Morphology Comment Normal (NORMAL) 05/07/18 08:25 RBC Morphology Normal (NORMAL) 05/07/18 08:25 Sodium 139 mmol/L (136-145) 05/08/18 04:29 Corrected Sodium 142 mmol/L (136-145) 05/08/18 04:29 Potassium 3.9 mmol/L (3.5-5.1) 05/08/18 04:29 Chloride 104 mmol/L (98-107) 05/08/18 04:29 Carbon Dioxide 24.5 mmol/L (21-32) 05/08/18 04:29 BUN 12 mg/dL (7-18) 05/08/18 04:29 Creatinine 0.85 mg/dL (0.70-1.30) 05/08/18 04:29 Est GFR (MDRD) Af Amer > 60 (>60) 05/08/18 04:29 Est GFR (MDRD) Non-Af > 60 (>60) 05/08/18 04:29 Glucose 219 mg/dL (65-99) H 05/08/18 04:29 POC Glucose (mg/dL) 227 mg/dL (65-99) H 05/08/18 11:31 Calcium 7.5 mg/dL (8.5-10.1) L 05/08/18 04:29 Corrected Calcium 8.4 mg/dL (8.5-10.1) L 05/08/18 04:29 Magnesium 3.0 mg/dL (1.7-2.9) H 05/07/18 08:25 Total Bilirubin 0.30 mg/dL (0.2-1.0) 05/08/18 04:29 AST 12 Units/L (15-37) L 05/08/18 04:29 ALT 14 Units/L (12-78) 05/08/18 04:29 Alkaline Phosphatase 74 Units/L (46-116) 05/08/18 04:29 Total Protein 6.2 g/dL (6.4-8.2) L 05/08/18 04:29 Albumin 2.9 g/dL (3.4-5.0) L 05/08/18 04:29 Globulin 3.3 g/dL (2.5-4.5) 05/08/18 04:29 Albumin/Globulin Ratio 0.9 Ratio (1.1-2.1) L 05/08/18 04:29 Specimen Type Clean catch urine 05/07/18 04:48 Urine Color Yellow (YELLOW) 05/07/18 04:48 Urine Appearance Clear (CLEAR) 05/07/18 04:48 Urine pH 7.0 (5.0 - 8.0) 05/07/18 04:48 Ur Specific [place] 1.010 (1.000-1.030) 05/07/18 04:48 Urine Protein 3+ (NEGATIVE) 05/07/18 04:48 Urine Glucose (UA) 4+ (NEGATIVE) 05/07/18 04:48 Urine Ketones Negative (NEGATIVE) 05/07/18 04:48 Urine Occult Blood 2+ (NEGATIVE) 05/07/18 04:48 Urine Nitrite Negative (NEGATIVE) 05/07/18 04:48 Urine Bilirubin Negative (NEGATIVE) 05/07/18 04:48 Urine Urobilinogen Normal (NORMAL) 05/07/18 04:48 Ur Leukocyte Esterase Negative (NEGATIVE) 05/07/18 04:48 Urine RBC 0-2 /HPF (NONE SEEN) 05/07/18 04:48 Urine WBC None seen /HPF (NONE SEEN) 05/07/18 04:48 Ur Squamous Epith Cells Rare /HPF (NEGATIVE) 05/07/18 04:48 Urine Bacteria Negative /HPF (NEGATIVE) 05/07/18 04:48 Ur Culture Indicated? No/not indicated 05/07/18 04:48 Acetone, Semi-Quant Negative (NEGATIVE) 05/07/18 08:25 - Plan (1) Intractable vomiting with nausea Status: Acute Plan: AM LABS, SERUM ACETONE NEGATIVE. ABD SERIES ON ADMISSION W/O ACUTE FINDINGS. BLOOD PRESSURE AND BLOOD SUGAR CONTROL, SSI. GENTLE IV HYDRATION, I &OS. PAIN CONTROL AND PPI THERAPY (2) Diabetic gastroparesis Status: Acute (3) Hypertension, uncontrolled Status: Acute (4) Hypertension Status: Chronic Qualifiers: (5) Diabetes mellitus type 1 Status: Chronic Qualifiers: (6) GERD (gastroesophageal reflux disease) Status: Chronic Qualifiers:
== END 2018-05-08 13:10 | disposition home or self-care (01) | DRG 392 ==
LOC: ER 16:09 → MED/SURG 21:54
PROVIDERS: ADMIT Internal Medicine; ATTEND Internal Medicine
DX: E87.6 Hypokalemia; R26.89 Other abnormalities of gait and mobility; E10.43 Type 1 diabetes mellitus with diabetic autonomic (poly)neuropathy; E86.0 Dehydration; F41.8 Other specified anxiety disorders; R10.84 Generalized abdominal pain; R11.2 Nausea with vomiting, unspecified; E78.2 Mixed hyperlipidemia; R53.1 Weakness; K31.84 Gastroparesis; E10.65 Type 1 diabetes mellitus with hyperglycemia; I10 Essential (primary) hypertension
CPT/HCPCS: 36415; 36591; 71020; 71046; 74022; 80048; 80053; 81001; 82009; 83735; 84132; 85025; 94760; 96365; 96367; 96374; 96375; 97110; 97161; 97166; 99283; 99284; A4216; A4222; S0028; J1100; J1170; J1200; J1642; J1815; J2060; J2175; J2405; J2550; J2765; J3475; J3490; J7030; J7050; J8499

== ENCOUNTER 2018-07-28 19:05 | Inpatient (IN) ==
[2018-07-28] MEDS ORDERED: NS 1000 ML 1,000 ML ONE (19:16)
[2018-07-28] MEDS ORDERED: NS 1000 ML 1,000 ML IV ONE (19:25)
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
[2018-07-28] MEDS ORDERED: ZOFRAN INJ 4 MG VIAL IVP ONE (19:35)
[2018-07-28] MEDS ORDERED: ZOFRAN INJ 4 MG VIAL ONE (19:41)
[2018-07-28 19:58] LABS: SERUM ACETONE NEGATIVE (NEGATIVE)
[2018-07-28 20:02] LABS: ALANINE AMINOTRANSFERASE 21 Units/L (12-78); ALBUMIN 4.2 g/dL (3.4-5.0); ALKALINE PHOSPHATASE 132 Units/L (46-116); ASPARTATE AMINO TRANSFERASE 22 Units/L (15-37); BLOOD UREA NITROGEN 16 mg/dL (7-18); CALCIUM 9.8 mg/dL (8.5-10.1); CARBON DIOXIDE 22.8 mmol/L (21-32); CHLORIDE 99 mmol/L (98-107); COR NA(FOR HYPERGLY) 141 mmol/L (136-145); CREATININE 1.42 mg/dL (0.70-1.30); SODIUM 137 mmol/L (136-145); TOTAL PROTEIN 9.6 g/dL (6.4-8.2); eGFR NON BLACK RACES 57 (>60)
[2018-07-28 20:05] LABS: BASOPHILS # (AUTO) 0.1 X10^3/uL (0.0-0.1); BASOPHILS % (AUTO) 0.6 % (0.2-1.0); EOSINOPHILS % (AUTO) 0.1 % (0.9-2.9); HEMATOCRIT 33.8 % (42.0-54.0); HEMOGLOBIN 11.1 g/dL (13.5-18.0); LYMPHOCYTES # (AUTO) 0.7 X10^3/uL (1.3-2.9); LYMPHOCYTES % (AUTO) 7.1 % (21.0-51.0); MEAN CORPUSCULAR HEMOGLOBIN 25.7 pg (27.0-34.0); MEAN CORPUSCULAR HGB CONC 32.9 g/dL (33.0-35.0); MEAN CORPUSCULAR VOLUME 78.1 fL (80.0-100.0); MEAN PLATELET VOLUME 7.8 fL (7.4-11.0); MONOCYTES # (AUTO) 0.2 x10^3/uL (0.3-0.8); MONOCYTES % (AUTO) 2.3 % (0.0-13.0); NEUTROPHILS % (AUTO) 89.9 % (42.0-75.0); PLATELET COUNT 387 X10^3/uL (150.0-450.0); RED BLOOD COUNT 4.33 X10^6/uL (4.7-6.0); RED CELL DISTRIBUTION WIDTH 14.1 % (11.6-16.5)
[2018-07-28] MEDS ORDERED: PHENERGAN INJ 25 MG IV ONE ×2 (20:09→22:54)
[2018-07-28] MEDS ORDERED: PHENERGAN INJ 25 MG ONE ×2 (20:11→22:54)
[2018-07-28 20:14] LABS: HYPOCHROMASIA SLIGHT; PLATELET MORPHOLOGY COMMENT NORMAL (NORMAL)
[2018-07-28 20:17] LABS: BILIRUBIN,URINE NEGATIVE (NEGATIVE); BLOOD/HEMOGLOBIN,URINE 3+ (NEGATIVE); GLUCOSE, URINE 3+ (NEGATIVE); KETONES,URINE 2+ (NEGATIVE); LEUKOCYTE ESTERASE ,URINE NEGATIVE (NEGATIVE); NITRITES,URINE NEGATIVE (NEGATIVE); PROTEIN,URINE 3+ (NEGATIVE); UROBILINOGEN,URINE NORMAL (NORMAL)
[2018-07-28] MEDS ORDERED: DEMEROL INJ ONE (20:18)
[2018-07-28] MEDS ORDERED: DEMEROL INJ IVP ONE (20:21)
[2018-07-28 20:23] LABS: AMORPHOUS SEDIMENT,UR TRACE /HPF (NEGATIVE); APPEARANCE,URINE SLIGHTLY HAZY (CLEAR); BACTERIA,URINE TRACE /HPF (NEGATIVE); COLOR,URINE PALE YELLOW (YELLOW); SQUAMOUS EPITHELIAL CELL,UR RARE /HPF (NEGATIVE)
--- NOTE | 2018-07-28 20:31 | RAD ---
ACUTE ABDOMINAL SERIES CLINICAL HISTORY: 47-year-old male with nausea, vomiting and abdominal pain. COMPARISON: Acute abdominal series radiograph 05/07/2018. FINDINGS: Left chest chemo port is unchanged. PA chest radiograph demonstrates normal cardiopericardial silhouette. There is no focal consolidation, pleural effusion or pneumothorax. Pulmonary vascularity is normal. Abdominal radiographs demonstrate a nonobstructive bowel gas pattern. Gas and stool are seen throughout the colon. There is no small bowel distention. There is no radiographic evidence of pneumoperitoneum. Imaged osseous structures are intact. Soft tissues are unremarkable. IMPRESSION: 1. No acute cardiopulmonary process. 2. Nonobstructive bowel gas pattern without radiographic evidence of pneumoperitoneum. Reported By:
[2018-07-28] MEDS ORDERED: CATAPRES TAB 0.1 MG PO ONE (22:47)
[2018-07-28] MEDS ORDERED: CATAPRES TAB 0.1 MG ONE (22:49)
--- NOTE | 2018-07-29 00:06 | CT ---
CT abdomen and pelvis without contrast Indication: Nausea, vomiting, abdominal pain Technique: Helical CT images of the abdomen and pelvis were obtained without IV contrast. Reformatted images in the coronal and sagittal planes were also generated for review. Comparison: 04/29/2018 Findings: Patchy ground-glass opacities are present within the left lower lobe. Right lung base is clear. No aggressive osseous lesions are identified. The gallbladder is surgically absent. Within the limits of a noncontrast exam, the liver, spleen, pancreas and adrenals are unremarkable. There is nonspecific mild bilateral perinephric stranding. Both kidneys are otherwise unremarkable without urolithiasis or obstructive uropathy. Evaluation of the GI tract is limited without oral contrast. Accounting for this, there is no bowel obstruction or gross inflammation. The appendix is not identified and may be absent. Small hiatal hernia noted. The abdominal aorta is normal in caliber. The urinary bladder is grossly normal without stones. The prostate is not enlarged. No free air, free fluid or bulky lymphadenopathy is identified. Impression: Mild bilateral perinephric stranding, which is nonspecific but could be secondary to chronic medical renal disease. Correlation with urinalysis recommended to exclude UTI. Otherwise, no acute abnormality identified within the limitations of a noncontrast exam. Patchy ground-glass opacities within the left lower lobe, suspicious for developing pneumonitis. Small hiatal hernia. Reported By:
[2018-07-29] MEDS ORDERED: CATAPRES TAB 0.2 MG PO ONE (00:25)
[2018-07-29] MEDS ORDERED: CATAPRES TAB 0.2 MG ONE (00:26)
[2018-07-29] MEDS ORDERED: BENTYL I.M. INJ 10 MG IM ONE ×2 (00:46→00:59)
[2018-07-29] MEDS: NS 1000 ML 1,000 ML IV SCH ×3 (02:23→19:00)
[2018-07-29] MEDS ORDERED: LEVAQUIN PREMIX IV 750 MG 750 MG/150 ML BAG IV ONE (02:26)
[2018-07-29] MEDS ORDERED: LEVAQUIN PREMIX IV 750 MG 750 MG/150 ML BAG IV SCH (02:26)
[2018-07-29 03:11] LABS: ALANINE AMINOTRANSFERASE 21 Units/L (12-78); ALBUMIN 3.9 g/dL (3.4-5.0); ALKALINE PHOSPHATASE 123 Units/L (46-116); ASPARTATE AMINO TRANSFERASE 17 Units/L (15-37); BLOOD UREA NITROGEN 15 mg/dL (7-18); CALCIUM 9.2 mg/dL (8.5-10.1); CARBON DIOXIDE 28.2 mmol/L (21-32); CHLORIDE 99 mmol/L (98-107); COR NA(FOR HYPERGLY) 140 mmol/L (136-145); CREATININE 1.08 mg/dL (0.70-1.30); SODIUM 137 mmol/L (136-145); TOTAL PROTEIN 9.1 g/dL (6.4-8.2); eGFR NON BLACK RACES > 60 (>60)
[2018-07-29 03:55] VITALS: BMI 23.6
[2018-07-29] MEDS ORDERED: PHENERGAN TAB 25 MG PO PRN (04:26)
[2018-07-29] MEDS ORDERED: TRANSDERM-SCOP TD SCH (04:26)
[2018-07-29] MEDS ORDERED: DEMEROL INJ ONE (04:30)
[2018-07-29] MEDS ORDERED: ZOFRAN INJ 4 MG VIAL ONE (04:31)
[2018-07-29] MEDS: DEMEROL INJ IVP PRN ×4 (04:33→21:47)
[2018-07-29] MEDS: ZOFRAN INJ 4 MG VIAL IVP PRN ×2 (04:33→18:30)
[2018-07-29] MEDS: CARAFATE PO SCH ×4 (05:54→21:48)
[2018-07-29] MEDS: HumuLIN R SUBCUT PRN (06:17)
[2018-07-29 06:24] LABS: BILIRUBIN,URINE NEGATIVE (NEGATIVE); BLOOD/HEMOGLOBIN,URINE 4+ (NEGATIVE); GLUCOSE, URINE 3+ (NEGATIVE); KETONES,URINE 2+ (NEGATIVE); LEUKOCYTE ESTERASE ,URINE NEGATIVE (NEGATIVE); NITRITES,URINE NEGATIVE (NEGATIVE); PROTEIN,URINE 4+ (NEGATIVE); UROBILINOGEN,URINE NORMAL (NORMAL)
[2018-07-29 06:27] LABS: APPEARANCE,URINE CLEAR (CLEAR); COLOR,URINE YELLOW (YELLOW)
[2018-07-29] MEDS ORDERED: INSULIN LISPRO 1 UNIT subcut SCH (06:30)
[2018-07-29 06:37] LABS: BACTERIA,URINE NEGATIVE /HPF (NEGATIVE); HYALINE CASTS, URINE RARE /LPF (NEGATIVE); MUCUS,URINE FEW /HPF (NEGATIVE); SQUAMOUS EPITHELIAL CELL,UR RARE /HPF (NEGATIVE)
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
[2018-07-29] MEDS ORDERED: CATAPRES-TTS-3 TD SCH (09:00)
[2018-07-29] MEDS: K-DUR TAB 20 MEQ PO SCH (09:23)
[2018-07-29] MEDS: PROTONIX TAB 40 MG PO SCH ×2 (09:23→21:48)
[2018-07-29] MEDS: COZAAR PO SCH (09:23)
[2018-07-29] MEDS: PHENERGAN INJ 25 MG IV PRN ×2 (10:22→16:09)
[2018-07-29] MEDS: NORCO 10/325 TAB PO PRN (12:20)
[2018-07-29] MEDS ORDERED: INSULIN GLARGINE SUB-Q SCH (21:00)
[2018-07-29] MEDS: LEVAQUIN PREMIX IV 750 MG 750 MG/150 ML BAG IV SCH (21:48)
[2018-07-29] MEDS: RESTORIL CAP 30 MG PO SCH (21:48)
[2018-07-30] MEDS: NS 1000 ML 1,000 ML IV SCH ×3 (04:42→14:50)
[2018-07-30] MEDS: CARAFATE PO SCH ×4 (05:56→21:28)
[2018-07-30 06:06] LABS: BASOPHILS % (AUTO) 0.4 % (0.2-1.0); EOSINOPHILS % (AUTO) 0.2 % (0.9-2.9); HEMOGLOBIN 10.9 g/dL (13.5-18.0); LYMPHOCYTES # (AUTO) 2.1 X10^3/uL (1.3-2.9); LYMPHOCYTES % (AUTO) 26.1 % (21.0-51.0); MEAN CORPUSCULAR VOLUME 78.7 fL (80.0-100.0); MEAN PLATELET VOLUME 8.1 fL (7.4-11.0); MONOCYTES # (AUTO) 0.7 x10^3/uL (0.3-0.8); MONOCYTES % (AUTO) 8.1 % (0.0-13.0); NEUTROPHILS # (AUTO) 5.3 x10^3/uL (2.2-4.8); NEUTROPHILS % (AUTO) 65.2 % (42.0-75.0); PLATELET COUNT 354 X10^3/uL (150.0-450.0); RED BLOOD COUNT 4.19 X10^6/uL (4.7-6.0); RED CELL DISTRIBUTION WIDTH 13.9 % (11.6-16.5); WHITE BLOOD COUNT 8.1 X10^3/uL (3.6-10.0)
[2018-07-30 06:27] LABS: ALANINE AMINOTRANSFERASE 22 Units/L (12-78); ALBUMIN 3.4 g/dL (3.4-5.0); ALKALINE PHOSPHATASE 104 Units/L (46-116); ASPARTATE AMINO TRANSFERASE 19 Units/L (15-37); BLOOD UREA NITROGEN 22 mg/dL (7-18); CALCIUM 8.7 mg/dL (8.5-10.1); CARBON DIOXIDE 28.2 mmol/L (21-32); CHLORIDE 103 mmol/L (98-107); CREATININE 1.37 mg/dL (0.70-1.30); SODIUM 140 mmol/L (136-145); eGFR NON BLACK RACES 60 (>60)
--- NOTE | 2018-07-30 07:47 | RAD ---
HISTORY: Shortness of breath Study: Chest AP portable Comparison: 06/17/2018 Findings: There is a port present on the left. The heart is within normal limits in size. The jennifer are normal. The lungs are mildly hyperinflated but free of acute infiltrates. No pleural effusions are identified. The bony thorax is unremarkable. IMPRESSION: Lungs hyperinflated but clear Reported By:
[2018-07-30] MEDS: COZAAR PO SCH (08:04)
[2018-07-30] MEDS: NORCO 10/325 TAB PO PRN (08:05)
[2018-07-30] MEDS: PROTONIX TAB 40 MG PO SCH ×2 (08:05→21:28)
[2018-07-30] MEDS: K-DUR TAB 20 MEQ PO SCH (08:05)
[2018-07-30] MEDS: DEMEROL INJ IVP PRN ×2 (11:56→21:38)
[2018-07-30] MEDS: PHENERGAN INJ 25 MG IV PRN ×2 (11:57→19:32)
[2018-07-30] MEDS: ZOFRAN INJ 4 MG VIAL IVP PRN (14:51)
[2018-07-30] MEDS: HumuLIN R SUBCUT PRN (17:10)
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
[2018-07-30] MEDS: RESTORIL CAP 30 MG PO SCH (21:28)
[2018-07-30] MEDS: LEVAQUIN PREMIX IV 750 MG 750 MG/150 ML BAG IV SCH (21:29)
[2018-07-31] MEDS: NS 1000 ML 1,000 ML IV SCH ×2 (01:30→10:42)
[2018-07-31] MEDS: CARAFATE PO SCH (05:44)
[2018-07-31 06:25] LABS: BASOPHILS % (AUTO) 0.5 % (0.2-1.0); EOSINOPHILS % (AUTO) 0.2 % (0.9-2.9); HEMATOCRIT 28.4 % (42.0-54.0); HEMOGLOBIN 9.5 g/dL (13.5-18.0); LYMPHOCYTES % (AUTO) 36.8 % (21.0-51.0); MEAN CORPUSCULAR HEMOGLOBIN 26.2 pg (27.0-34.0); MEAN CORPUSCULAR HGB CONC 33.6 g/dL (33.0-35.0); MEAN CORPUSCULAR VOLUME 77.9 fL (80.0-100.0); MEAN PLATELET VOLUME 8.4 fL (7.4-11.0); MONOCYTES # (AUTO) 0.6 x10^3/uL (0.3-0.8); MONOCYTES % (AUTO) 10.2 % (0.0-13.0); NEUTROPHILS # (AUTO) 2.9 x10^3/uL (2.2-4.8); NEUTROPHILS % (AUTO) 52.3 % (42.0-75.0); PLATELET COUNT 301 X10^3/uL (150.0-450.0); RED BLOOD COUNT 3.64 X10^6/uL (4.7-6.0); RED CELL DISTRIBUTION WIDTH 14.2 % (11.6-16.5); WHITE BLOOD COUNT 5.5 X10^3/uL (3.6-10.0)
[2018-07-31 07:08] LABS: ALANINE AMINOTRANSFERASE 18 Units/L (12-78); ALBUMIN 2.9 g/dL (3.4-5.0); ALKALINE PHOSPHATASE 85 Units/L (46-116); ASPARTATE AMINO TRANSFERASE 18 Units/L (15-37); BLOOD UREA NITROGEN 21 mg/dL (7-18); CALCIUM 8.4 mg/dL (8.5-10.1); CARBON DIOXIDE 26.5 mmol/L (21-32); CHLORIDE 104 mmol/L (98-107); COR CA(FOR HYPOALB) 9.3 mg/dL (8.5-10.1); COR NA(FOR HYPERGLY) 141 mmol/L (136-145); CREATININE 1.43 mg/dL (0.70-1.30); SODIUM 140 mmol/L (136-145); TOTAL PROTEIN 6.6 g/dL (6.4-8.2); eGFR NON BLACK RACES 57 (>60)
--- NOTE | 2018-07-31 07:13 | RAD ---
HISTORY: Shortness of breath Study: Chest AP portable Comparison: 07/30/2018 Findings: There is a port present on the left. The heart is within normal limits in size. The jennifer are normal. The lungs are hyperinflated but free of acute alveolar infiltrates. No pleural effusions are identified. The bony thorax is unremarkable. IMPRESSION: Lungs clear Reported By:
[2018-07-31] MEDS: K-DUR TAB 20 MEQ PO SCH (09:00)
[2018-07-31] MEDS: DEMEROL INJ IVP PRN (09:00)
[2018-07-31] MEDS: ZOFRAN INJ 4 MG VIAL IVP PRN (09:00)
[2018-07-31] MEDS: PROTONIX TAB 40 MG PO SCH (09:00)
[2018-07-31] MEDS: COZAAR PO SCH (09:00)
[2018-07-31 09:26] VITALS: BP 146/70
== END 2018-07-31 11:00 | disposition home or self-care (01) | DRG 73 ==
LOC: MED/SURG 19:09 → ER 19:09 → OBSVTOIN 07-29 01:47 → MED/SURG 07-29 02:49
PROVIDERS: ADMIT Internal Medicine; ATTEND Internal Medicine
DX: E10.43 Type 1 diabetes mellitus with diabetic autonomic (poly)neuropathy; R11.2 Nausea with vomiting, unspecified; J18.8 Other pneumonia, unspecified organism; K31.84 Gastroparesis; E10.65 Type 1 diabetes mellitus with hyperglycemia; I10 Essential (primary) hypertension; I25.10 Atherosclerotic heart disease of native coronary artery without angina pectoris; K44.9 Diaphragmatic hernia without obstruction or gangrene; E78.2 Mixed hyperlipidemia
CPT/HCPCS: 36415; 71010; 71045; 74022; 74176; 80053; 81001; 82009; 85025; 87040; 96365; 96367; 96372; 96374; 96375; 99284; A4222; J0500; J1642; J1815; J1956; J2175; J2405; J2550; J7030

== ENCOUNTER 2018-09-28 13:30 | Inpatient (IN) ==
[2018-09-28 13:35] VITALS: BMI 24.9
[2018-09-28] MEDS ORDERED: DEMEROL INJ IVP ONE (14:08)
[2018-09-28] MEDS ORDERED: ZOFRAN INJ 4 MG VIAL IVP ONE ×2 (14:08→15:19)
--- NOTE | 2018-09-28 14:12 | DR.N/VMALE ---
HPI Time Seen Time Seen by Provider: 09/28/18 14:08 Primary Care Physician Primary Care Physician: SAVANNAH Complaints Chief Complaint:: PT. C/O NAUSEA/VOMITING AND ABDOMINAL PAIN. Source History Provided: Patient Mode of Arrival Mode of Arrival: Ambulatory Timing Onset of Chief Complaint: 09/28/18 PMH PMH Past Medical History: Yes Past Medical History: Anemia, Coronary Artery Disease, Diabetes, Dyslipidemia, Hypertension and PUD Past Medical History Comment: GASTROPARESIS Past Surgical History: Yes Surgical History: Cholecystectomy, Ortho Surgery and Other Past Surgical History Comment: PORT A CATH PLACEMENT Family History History of Family Medical Conditions: Yes Family Medical History: Diabetes Mellitus and Coronary Artery Disease Social History Does patient currently use any type of tobacco product: No Have you used tobacco products in the last 12 months: No Type of Tobacco Use: None Does any household member use tobacco: No Alcohol Use: None Do you use any recreational Drugs:: No Lives With: Spouse Lives Where: Home infectious screening In the last 2 months have you had wt loss of >10#?: NO Have you had fever, night sweats or hemotysis?: No Have you traveled outside the country in the last 6 months?: No Isolation: Standard PE Vital Signs Vitals: Pulse Rate [Left Brachial] 91 Pulse Rate 111 Respiratory Rate 22 Blood Pressure [Right Arm] 171/87 Blood Pressure [Left Arm] 184/97 Blood Pressure [Left Radial 160/102 Artery] Blood Pressure 223/108 O2 Sat by Pulse Oximetry 100 ROR Labs Reviewed Result Diagrams: 09/28/18 13:50 09/28/18 13:50 Laboratory: WBC 9.4 X10^3/uL (3.6-10.0) 09/28/18 13:50 RBC 4.88 X10^6/uL (4.7-6.0) 09/28/18 13:50 Hgb 11.9 g/dL (13.5-18.0) L 09/28/18 13:50 Hct 37.1 % (42.0-54.0) L 09/28/18 13:50 MCV 76.1 fL (80.0-100.0) L 09/28/18 13:50 MCH 24.4 pg (27.0-34.0) L 09/28/18 13:50 MCHC 32.1 g/dL (33.0-35.0) L 09/28/18 13:50 RDW 15.4 % (11.6-16.5) 09/28/18 13:50 Plt Count 263 X10^3/uL (150.0-450.0) 09/28/18 13:50 Plt Count Comment Adequate (ADEQUATE) 09/28/18 13:50 MPV 9.0 fL (7.4-11.0) 09/28/18 13:50 Neut % (Auto) 89.0 % (42.0-75.0) H 09/28/18 13:50 Lymph % (Auto) 8.0 % (21.0-51.0) L 09/28/18 13:50 [place] % (Auto) 2.4 % (0.0-13.0) 09/28/18 13:50 Eos % (Auto) 0.1 % (0.9-2.9) L 09/28/18 13:50 Baso % (Auto) 0.5 % (0.2-1.0) 09/28/18 13:50 Neut # (Auto) 8.4 x10^3/uL (2.2-4.8) H 09/28/18 13:50 Lymph # (Auto) 0.8 X10^3/uL (1.3-2.9) L 09/28/18 13:50 [place] # (Auto) 0.2 x10^3/uL (0.3-0.8) L 09/28/18 13:50 Eos # (Auto) 0.0 x10^3/uL (0.0-0.2) 09/28/18 13:50 Baso # (Auto) 0.0 X10^3/uL (0.0-0.1) 09/28/18 13:50 Absolute Nucleated RBC 0.0 /100WBC 09/28/18 13:50 Plt Morphology Comment Normal (NORMAL) 09/28/18 13:50 RBC Morphology Abnormal (NORMAL) 09/28/18 13:50 Hypochromasia Slight A 09/28/18 13:50 Microcytosis Slight A 09/28/18 13:50 Sodium 136 mmol/L (136-145) 09/28/18 13:50 Corrected Sodium 144 mmol/L (136-145) 09/28/18 13:50 Potassium 3.8 mmol/L (3.5-5.1) 09/28/18 13:50 Chloride 98 mmol/L (98-107) 09/28/18 13:50 Carbon Dioxide 23.6 mmol/L (21-32) 09/28/18 13:50 BUN 15 mg/dL (7-18) 09/28/18 13:50 Creatinine 1.30 mg/dL (0.70-1.30) 09/28/18 13:50 Est GFR (MDRD) Af Amer > 60 (>60) 09/28/18 13:50 Est GFR (MDRD) Non-Af > 60 (>60) 09/28/18 13:50 Glucose 451 mg/dL (65-99) H 09/28/18 13:50 Calcium 9.0 mg/dL (8.5-10.1) 09/28/18 13:50 Corrected Calcium TNP 09/28/18 13:50 Total Bilirubin 0.40 mg/dL (0.2-1.0) 09/28/18 13:50 AST 18 Units/L (15-37) 09/28/18 13:50 ALT 27 Units/L (12-78) 09/28/18 13:50 Alkaline Phosphatase 158 Units/L (46-116) H 09/28/18 13:50 Total Protein 8.5 g/dL (6.4-8.2) H 09/28/18 13:50 Albumin 4.1 g/dL (3.4-5.0) 09/28/18 13:50 Globulin 4.4 g/dL (2.5-4.5) 09/28/18 13:50 Albumin/Globulin Ratio 0.9 Ratio (1.1-2.1) L 09/28/18 13:50 Amylase 59 Units/L (25-115) 09/28/18 13:50 Lipase 72 Units/L (73-393) L 09/28/18 13:50 Acetone, Semi-Quant Negative (NEGATIVE) 09/28/18 13:50
[2018-09-28] MEDS ORDERED: ZOFRAN INJ 4 MG VIAL ONE ×2 (14:14→15:21)
[2018-09-28] MEDS ORDERED: DEMEROL INJ ONE (14:15)
[2018-09-28 14:18] LABS: BASOPHILS % (AUTO) 0.5 % (0.2-1.0); EOSINOPHILS % (AUTO) 0.1 % (0.9-2.9); HEMATOCRIT 37.1 % (42.0-54.0); HEMOGLOBIN 11.9 g/dL (13.5-18.0); LYMPHOCYTES # (AUTO) 0.8 X10^3/uL (1.3-2.9); MEAN CORPUSCULAR HEMOGLOBIN 24.4 pg (27.0-34.0); MEAN CORPUSCULAR HGB CONC 32.1 g/dL (33.0-35.0); MEAN CORPUSCULAR VOLUME 76.1 fL (80.0-100.0); MONOCYTES # (AUTO) 0.2 x10^3/uL (0.3-0.8); MONOCYTES % (AUTO) 2.4 % (0.0-13.0); NEUTROPHILS # (AUTO) 8.4 x10^3/uL (2.2-4.8); PLATELET COUNT 263 X10^3/uL (150.0-450.0); RED BLOOD COUNT 4.88 X10^6/uL (4.7-6.0); RED CELL DISTRIBUTION WIDTH 15.4 % (11.6-16.5); WHITE BLOOD COUNT 9.4 X10^3/uL (3.6-10.0)
[2018-09-28] MEDS: NS 1000 ML 1,000 ML IV SCH ×2 (14:21→22:02)
[2018-09-28 14:26] LABS: HYPOCHROMASIA SLIGHT; MICROCYTOSIS SLIGHT; PLATELET MORPHOLOGY COMMENT NORMAL (NORMAL)
[2018-09-28 14:31] LABS: ALANINE AMINOTRANSFERASE 27 Units/L (12-78); ALBUMIN 4.1 g/dL (3.4-5.0); ALKALINE PHOSPHATASE 158 Units/L (46-116); AMYLASE 59 Units/L (25-115); ASPARTATE AMINO TRANSFERASE 18 Units/L (15-37); BLOOD UREA NITROGEN 15 mg/dL (7-18); CARBON DIOXIDE 23.6 mmol/L (21-32); CHLORIDE 98 mmol/L (98-107); COR NA(FOR HYPERGLY) 144 mmol/L (136-145); LIPASE 72 Units/L (73-393); SODIUM 136 mmol/L (136-145); TOTAL PROTEIN 8.5 g/dL (6.4-8.2); eGFR NON BLACK RACES > 60 (>60)
[2018-09-28] MEDS ORDERED: ZOFRAN INJ 4 MG VIAL IVP PRN (15:38)
[2018-09-28] MEDS ORDERED: CATAPRES-TTS-3 TD SCH (16:14)
[2018-09-28 16:23] LABS: BILIRUBIN,URINE NEGATIVE (NEGATIVE); BLOOD/HEMOGLOBIN,URINE 3+ (NEGATIVE); GLUCOSE, URINE 4+ (NEGATIVE); KETONES,URINE 4+ (NEGATIVE); LEUKOCYTE ESTERASE ,URINE NEGATIVE (NEGATIVE); NITRITES,URINE NEGATIVE (NEGATIVE); PROTEIN,URINE 3+ (NEGATIVE); UROBILINOGEN,URINE NORMAL (NORMAL)
[2018-09-28 16:28] LABS: APPEARANCE,URINE CLEAR (CLEAR); COLOR,URINE YELLOW (YELLOW)
[2018-09-28 16:31] LABS: BACTERIA,URINE NEGATIVE /HPF (NEGATIVE); SQUAMOUS EPITHELIAL CELL,UR RARE /HPF (NEGATIVE)
[2018-09-28] MEDS: PHENERGAN INJ 25 MG IM PRN (16:38)
[2018-09-28] MEDS: HumuLIN R SUBCUT PRN ×2 (17:26→21:21)
[2018-09-28] MEDS: SNACK - Diabetic Appropriate PO SCH (20:14)
[2018-09-28] MEDS: COZAAR PO SCH (20:14)
[2018-09-28] MEDS: NORVASC TAB 5 MG PO SCH (20:14)
[2018-09-28] MEDS: PROTONIX INJ 40 MG VIAL IVP SCH (20:15)
[2018-09-28] MEDS: RESTORIL CAP 30 MG PO SCH (20:15)
[2018-09-28] MEDS: REGLAN INJ 10 MG VIAL IVP PRN (20:15)
[2018-09-28] MEDS: DEMEROL INJ IVP PRN (21:37)
[2018-09-29] MEDS: HumuLIN R SUBCUT PRN ×3 (04:22→21:30)
[2018-09-29] MEDS: REGLAN INJ 10 MG VIAL IVP PRN ×2 (04:23→21:29)
[2018-09-29] MEDS: DEMEROL INJ IVP PRN ×5 (04:24→21:29)
[2018-09-29 05:28] LABS: BASOPHILS # (AUTO) 0.1 X10^3/uL (0.0-0.1); BASOPHILS % (AUTO) 0.5 % (0.2-1.0); HEMATOCRIT 37.1 % (42.0-54.0); MEAN CORPUSCULAR HEMOGLOBIN 24.4 pg (27.0-34.0); MEAN CORPUSCULAR HGB CONC 32.2 g/dL (33.0-35.0); MEAN CORPUSCULAR VOLUME 75.6 fL (80.0-100.0); MEAN PLATELET VOLUME 9.3 fL (7.4-11.0); MONOCYTES # (AUTO) 0.4 x10^3/uL (0.3-0.8); MONOCYTES % (AUTO) 3.3 % (0.0-13.0); NEUTROPHILS # (AUTO) 9.3 x10^3/uL (2.2-4.8); NEUTROPHILS % (AUTO) 87.2 % (42.0-75.0); PLATELET COUNT 270 X10^3/uL (150.0-450.0); RED BLOOD COUNT 4.91 X10^6/uL (4.7-6.0); RED CELL DISTRIBUTION WIDTH 15.4 % (11.6-16.5); WHITE BLOOD COUNT 10.6 X10^3/uL (3.6-10.0)
[2018-09-29] MEDS: NS 1000 ML 1,000 ML IV SCH ×5 (05:34→22:40)
[2018-09-29 05:42] LABS: ALANINE AMINOTRANSFERASE 24 Units/L (12-78); ALBUMIN 3.7 g/dL (3.4-5.0); ALKALINE PHOSPHATASE 139 Units/L (46-116); ASPARTATE AMINO TRANSFERASE 15 Units/L (15-37); BLOOD UREA NITROGEN 16 mg/dL (7-18); CALCIUM 8.6 mg/dL (8.5-10.1); CARBON DIOXIDE 22.6 mmol/L (21-32); CHLORIDE 104 mmol/L (98-107); COR NA(FOR HYPERGLY) 146 mmol/L (136-145); CREATININE 1.07 mg/dL (0.70-1.30); SODIUM 142 mmol/L (136-145); TOTAL PROTEIN 7.9 g/dL (6.4-8.2); eGFR NON BLACK RACES > 60 (>60)
[2018-09-29] MEDS ORDERED: MICRO K EXTEN CAP 10 MEQ PO PRN (05:55)
[2018-09-29] MEDS ORDERED: KLOR-CON PO PRN (05:55)
[2018-09-29] MEDS ORDERED: MAGNESIUM SULFATE 1 GRAM/100 mL PREMIX 1 GM/100 ML BAG IV PRN (05:55)
[2018-09-29] MEDS ORDERED: POTASSIUM CHL 60 MEQ/NS 0.45% 500 ML IV PRN (05:55)
[2018-09-29] MEDS ORDERED: POTASSIUM CHLORIDE LIQ 20 MEQ UDC PO PRN (05:55)
[2018-09-29] MEDS ORDERED: K-RIDER 10 MEQ/NS 100 ML 10 MEQ/100 ML BAG IV PRN (05:55)
[2018-09-29] MEDS ORDERED: K-DUR TAB 20 MEQ PO PRN (05:55)
[2018-09-29] MEDS ORDERED: POTASSIUM CHL 40 MEQ/NS 0.45% 500 ML IV PRN (05:55)
[2018-09-29 06:32] LABS: PLATELET MORPHOLOGY COMMENT NORMAL (NORMAL)
[2018-09-29 06:33] LABS: HYPOCHROMASIA SLIGHT
[2018-09-29] MEDS: PROTONIX INJ 40 MG VIAL IVP SCH ×2 (08:27→21:24)
[2018-09-29] MEDS: NORVASC TAB 5 MG PO SCH ×2 (08:28→21:24)
[2018-09-29] MEDS: PHENERGAN INJ 25 MG IM PRN (09:35)
--- NOTE | 2018-09-29 10:04 | DR.H&P ---
H&P - History & Physical for Day of: H&P Date: 09/28/18 - Chief Complaint Chief Complaint: NAUSEA, VOMITING, ABDOMINAL PAIN - History of Present Illness History of Present Illness: IS A 47 YEAR OLD PATIENT OF OURS WHO PRESENTED TO THE ER WITH COMPLAINTS OF NAUSEA, VOMITING, AND ABDOMINAL PAIN THAT STARTED TODAY. HE HAS A HISTORY OF DIABETIC GASTROPARESIS. HE IS GENERALLY NON- COMPLIANT WITH A DIABETIC DIET. ON ARRIVAL, VITLAS WERE 98.7-111-22-98%-223/108. LABS WERE OBTAINED. ABNORMAL LAB VALUES INCLUDE THE FOLLOWING: HGB 11.9, HCT 37.1, GLUCOSE 451, ALK PHOS 158, TOTAL PROTEIN 8.5, LIPASE 72. URINALYSIS REVEALED: WBC 0-2, RBC 3-5, LEUKOCYTES NEGATIVE, BACTERIA NEGATIVE, PROTEIN 3+, KETONES 4+, OCCULT BLOOD 3+. URINE ACETONE NEGATIVE. HE WAS GIVEN ZOFRAN 4MG IV X 2 DOSES AND DEMEROL 50MG IV X 1 DOSE. ONLY SLIGHT IMPROVEMENT IN SYMPTOMS NOTED. BLOOD PRESSURE DECREASED TO 171/87. HE WAS ADMITTED FOR FURTHER EVALUATION AND TREATMENT OF INTRACTABLE NAUSEA AND VOMITING, ABDOMINAL PAIN, AND DIABETIC GASTROPARESIS. HE WAS STARTED ON NORMAL SALINE AT 125ML/HR, PHENERGAN 25MG IM Q4H PRN NAUSEA, ZOFRAN 4MG IV Q6H PRN NAUSEA, REGLAN 10MG IV Q6H PRN, DEMEROL 50MG IV Q4H PRN, AND HUMULIN R SLIDING SCALE. HE HOME MEDICATIONS WERE RESUMED. WE PLAN TO FOLLOW-UP WITH AM LABS AND CONTINUE TO MONITOR. - Past Medical History Past Medical History: Coronary Artery Disease, Hypertension, Dyslipidemia, Diabetes, Anemia, PUD Additional Medical History: Diabetic Neuropathy, Diabetic Gastroparesis, Hiatal Hernia, Gastric Ulcer, Gall Bladder Disease, Back Pain - Past Surgical History Surgical History: Cholecystectomy, Ortho Surgery, Other Additional Surgical History: Right foot I&D - Family History Family Medical History: Diabetes Mellitus, Hypertension - Social History Does patient currently use any type of tobacco product: No Have you used tobacco products in the last 12 months: No Type of Tobacco Use: None Does any household member use tobacco: No Alcohol Use: None Drug Use: Prescription Drugs - Medications Home Medications: codeine Allergy (Verified 07/28/18 19:30) morphine Allergy (Verified 02/19/19 19:30) CONTINUE taking the following medications amlodipine 5 mg PO BID 09/28/18 [History] glipizide 10 mg PO DAILY 09/28/18 [History] losartan 50 mg PO HS 09/28/18 [History] - Review of Systems Constitutional: Weakness Eyes: No Symptoms Reported ENT: No Symptoms Reported Respiratory: No Symptoms Reported Cardiovascular: No Symptoms Reported Gastrointestinal: See HPI, Nausea, Vomiting, Abdominal Pain Genitourinary: No Symptoms Reported Musculoskeletal: No Symptoms Reported Skin: No Symptoms Reported Neurological: Weakness - Physical Exam Vital Signs: Temperature 98 F Pulse Rate [Left Brachial] 101 Pulse Rate 111 Respiratory Rate 20 Blood Pressure [Right Arm] 171/87 Blood Pressure [Left Arm] 130/72 Blood Pressure [Left Radial 160/102 Artery] Blood Pressure 223/108 O2 Sat by Pulse Oximetry 100 Oriented: Normal Eyes: Normal Ear: Normal Nose: Normal Throat: Normal Respiratory: Clear Throughout Cardiovascular: Tachycardia. negative: S3, S4, Murmur : Normal Auscultation: Bowel Sounds: Normal Palpation: Normal Tenderness: Diffuse, Moderate. negative: Rebound, Guarding, Rigidity Skin: Decreased [place] Musculoskeletal: Normal Psychiatric: Normal Mood Description: Calm Affect: Normal Speech Pattern: Clear - Assessment/Plan (1) Abdominal pain Qualifiers: Abdominal location: generalized Qualified Code(s): R10.84 - Generalized abdominal pain Status: Acute Plan: ADMIT, NORMAL SALINE AT 125ML/HR, PHENERGAN 25MG IM Q4H PRN NAUSEA, ZOFRAN 4MG IV Q6H PRN NAUSEA, REGLAN 10MG IV Q6H PRN, DEMEROL 50MG IV Q4H PRN, AND HUMULIN R SLIDING SCALE. (2) Nausea and vomiting in adult patient Status: Acute (3) Gastroparesis due to DM Status: Acute (4) Accelerated hypertension Status: Acute Plan: CONTINUE HOME MEDS - Allergies Allergies/Adverse Reactions: Allergies Allergy/AdvReac Type Severity Reaction Status Date / Time codeine Allergy Verified 07/28/18 19:30 morphine Allergy Verified 07/28/18 19:30
[2018-09-29] MEDS: SNACK - Diabetic Appropriate PO SCH (20:00)
[2018-09-29] MEDS: RESTORIL CAP 30 MG PO SCH (21:24)
[2018-09-29] MEDS: COZAAR PO SCH (21:24)
[2018-09-30] MEDS: NS 1000 ML 1,000 ML IV SCH ×6 (05:06→22:13)
[2018-09-30] MEDS: HumuLIN R SUBCUT PRN ×4 (05:19→21:17)
[2018-09-30 05:21] LABS: BASOPHILS % (AUTO) 0.7 % (0.2-1.0); EOSINOPHILS % (AUTO) 0.6 % (0.9-2.9); HEMATOCRIT 30.5 % (42.0-54.0); HEMOGLOBIN 9.9 g/dL (13.5-18.0); LYMPHOCYTES # (AUTO) 1.9 X10^3/uL (1.3-2.9); LYMPHOCYTES % (AUTO) 35.2 % (21.0-51.0); MEAN CORPUSCULAR HEMOGLOBIN 24.7 pg (27.0-34.0); MEAN CORPUSCULAR HGB CONC 32.4 g/dL (33.0-35.0); MEAN CORPUSCULAR VOLUME 76.3 fL (80.0-100.0); MEAN PLATELET VOLUME 9.3 fL (7.4-11.0); MONOCYTES # (AUTO) 0.4 x10^3/uL (0.3-0.8); MONOCYTES % (AUTO) 6.5 % (0.0-13.0); NEUTROPHILS # (AUTO) 3.1 x10^3/uL (2.2-4.8); PLATELET COUNT 234 X10^3/uL (150.0-450.0); RED BLOOD COUNT 3.99 X10^6/uL (4.7-6.0); RED CELL DISTRIBUTION WIDTH 15.3 % (11.6-16.5); WHITE BLOOD COUNT 5.5 X10^3/uL (3.6-10.0)
[2018-09-30 05:37] LABS: ALANINE AMINOTRANSFERASE 20 Units/L (12-78); ALBUMIN 2.8 g/dL (3.4-5.0); ALKALINE PHOSPHATASE 100 Units/L (46-116); ASPARTATE AMINO TRANSFERASE 17 Units/L (15-37); BLOOD UREA NITROGEN 20 mg/dL (7-18); CALCIUM 7.4 mg/dL (8.5-10.1); CARBON DIOXIDE 25.5 mmol/L (21-32); CHLORIDE 108 mmol/L (98-107); COR CA(FOR HYPOALB) 8.4 mg/dL (8.5-10.1); COR NA(FOR HYPERGLY) 145 mmol/L (136-145); CREATININE 1.35 mg/dL (0.70-1.30); SODIUM 143 mmol/L (136-145); TOTAL PROTEIN 6.2 g/dL (6.4-8.2); eGFR NON BLACK RACES > 60 (>60)
[2018-09-30 06:31] LABS: ANISOCYTOSIS SLIGHT; HYPOCHROMASIA 1+; PLATELET MORPHOLOGY COMMENT NORMAL (NORMAL)
--- NOTE | 2018-09-30 08:43 | PCM.PROG ---
Progress Note - Progress Note for Day of Date of Exam: 09/29/18 - Subjective Subjective: WAS ADMITTED FOR INTRACTABLE NAUSEA OR VOMITING AND ABDOMINAL PAIN. HE HAS A HISTORY OF DIABETIC GASTROPARESIS AND IS GENERALLY NON- COMPLIANT WITH HIS DIET. HE REPORTS FEELING SLIGHTLY BETTER TODAY. ON EXAMINATION, HEART IS REGULAR IN RATE AND RHYTHM. BILATERAL LUNGS ARE CLEAR TO A USCULTATION. ABDOMEN IS ROUND, SOFT, AND NOTED WITH MILD, DIFFUSE TENDERNESS. HYPERACTIVE BOWEL SOUNDS NOTED. HIS VITALS THIS MORNING ARE 98.4-587-46-100%-130/72. LABS WERE OBTAINED. ABNORMAL LAB VALUES INCLUDE THE FOLLOWING: WBC 10.6, HGB 12.0, HCT 37.1, GLUCOSE 279, ALK PHOS 139. HE IS CURRENTLY RECEIVING NORMAL SALINE AT 125ML/HR, PHENERGAN 25MG IM Q4H PRN NAUSEA, ZOFRAN 4MG IV Q6H PRN NAUSEA, REGLAN 10MG IV Q6H PRN, DEMEROL 50MG IV Q4H PRN, AND HUMULIN R SLIDING SCALE. HIS HOME MEDICATIONS WERE RESUMED. WE WILL CONTINUE WITH CURRENT PLAN OF CARE TODAY. OTHERWISE, WE WILL FOLLOW UP WITH AM LABS AND CONTINUE TO MONITOR. - Past Medical Family Social History Past Med/Fam/Surg Hx: No changes since H&P Allergies: Allergies codeine Allergy (Verified 07/28/18 19:30) morphine Allergy (Verified 07/28/18 19:30) - Review of Systems ROS: No change since H&P - Vital Signs and I&O's Vital Signs: Temperature 98 F Pulse Rate [Left Brachial] 85 Pulse Rate 111 Respiratory Rate 20 Blood Pressure [Right Arm] 171/87 Blood Pressure [Left Arm] 139/75 Blood Pressure [Left Radial 160/102 Artery] Blood Pressure 223/108 O2 Sat by Pulse Oximetry 99 Intake and Output: Intake & Output 09/27/18 09/28/18 09/29/18 09/30/18 11:59 11:59 11:59 11:59 Intake Total 2180 / 2180 3490 / 3490 Output Total 200 / 200 Balance 1979 3490 / 3490 - Physical Exam Oriented: Normal Eyes: Normal Ear: Normal Nose: Normal Throat: Normal Respiratory: Normal Cardiovascular: Tachycardia. negative: S3, S4, Murmur : Normal Auscultation: Bowel Sounds: Normal Palpation: Normal Tenderness: Diffuse, Moderate. negative: Rebound, Guarding, Rigidity Skin: Decreased Turgur Musculoskeletal: Normal Psychiatric: Normal Mood Description: Calm Affect: Normal Speech Pattern: Clear - Laboratory and Diagnostics Result Diagrams: 09/30/18 04:58 09/30/18 04:58 Labs: Laboratory WBC 5.5 X10^3/uL (3.6-10.0) 09/30/18 04:58 RBC 3.99 X10^6/uL (4.7-6.0) L 09/30/18 04:58 Hgb 9.9 g/dL (13.5-18.0) L D 09/30/18 04:58 Hct 30.5 % (42.0-54.0) L 09/30/18 04:58 MCV 76.3 fL (80.0-100.0) L 09/30/18 04:58 MCH 24.7 pg (27.0-34.0) L 09/30/18 04:58 MCHC 32.4 g/dL (33.0-35.0) L 09/30/18 04:58 RDW 15.3 % (11.6-16.5) 09/30/18 04:58 Plt Count 234 X10^3/uL (150.0-450.0) 09/30/18 04:58 Plt Count Comment Adequate (ADEQUATE) 09/30/18 04:58 MPV 9.3 fL (7.4-11.0) 09/30/18 04:58 Neut % (Auto) 57.0 % (42.0-75.0) 09/30/18 04:58 Lymph % (Auto) 35.2 % (21.0-51.0) 09/30/18 04:58 [place] % (Auto) 6.5 % (0.0-13.0) 09/30/18 04:58 Eos % (Auto) 0.6 % (0.9-2.9) L 09/30/18 04:58 Baso % (Auto) 0.7 % (0.2-1.0) 09/30/18 04:58 Neut # (Auto) 3.1 x10^3/uL (2.2-4.8) 09/30/18 04:58 Lymph # (Auto) 1.9 X10^3/uL (1.3-2.9) 09/30/18 04:58 [place] # (Auto) 0.4 x10^3/uL (0.3-0.8) 09/30/18 04:58 Eos # (Auto) 0.0 x10^3/uL (0.0-0.2) 09/30/18 04:58 Baso # (Auto) 0.0 X10^3/uL (0.0-0.1) 09/30/18 04:58 Absolute Nucleated RBC 0.0 /100WBC 09/30/18 04:58 Plt Morphology Comment Normal (NORMAL) 09/30/18 04:58 RBC Morphology Abnormal (NORMAL) 09/30/18 04:58 Hypochromasia 1+ A 09/30/18 04:58 Anisocytosis Slight A 09/30/18 04:58 Microcytosis Slight A 09/28/18 13:50 Sodium 143 mmol/L (136-145) 09/30/18 04:58 Corrected Sodium 145 mmol/L (136-145) 09/30/18 04:58 Potassium 3.5 mmol/L (3.5-5.1) 09/30/18 04:58 Chloride 108 mmol/L (98-107) H 09/30/18 04:58 Carbon Dioxide 25.5 mmol/L (21-32) 09/30/18 04:58 BUN 20 mg/dL (7-18) H 09/30/18 04:58 Creatinine 1.35 mg/dL (0.70-1.30) H 09/30/18 04:58 Est GFR (MDRD) Af Amer > 60 (>60) 09/30/18 04:58 Est GFR (MDRD) Non-Af > 60 (>60) 09/30/18 04:58 Glucose 193 mg/dL (65-99) H 09/30/18 04:58 POC Glucose (mg/dL) 181 mg/dL (65-99) H 09/30/18 05:12 Calcium 7.4 mg/dL (8.5-10.1) L 09/30/18 04:58 Corrected Calcium 8.4 mg/dL (8.5-10.1) L 09/30/18 04:58 Magnesium 2.0 mg/dL (1.7-2.9) 09/30/18 04:58 Total Bilirubin 0.20 mg/dL (0.2-1.0) 09/30/18 04:58 AST 17 Units/L (15-37) 09/30/18 04:58 ALT 20 Units/L (12-78) 09/30/18 04:58 Alkaline Phosphatase 100 Units/L (46-116) 09/30/18 04:58 Total Protein 6.2 g/dL (6.4-8.2) L 09/30/18 04:58 Albumin 2.8 g/dL (3.4-5.0) L 09/30/18 04:58 Globulin 3.4 g/dL (2.5-4.5) 09/30/18 04:58 Albumin/Globulin Ratio 0.8 Ratio (1.1-2.1) L 09/30/18 04:58 Amylase 59 Units/L (25-115) 09/28/18 13:50 Lipase 72 Units/L (73-393) L 09/28/18 13:50 Specimen Type Clean catch urine 09/28/18 16:19 Urine Color Yellow (YELLOW) 09/28/18 16:19 Urine Appearance Clear (CLEAR) 09/28/18 16:19 Urine pH 5.0 (5.0 - 8.0) 09/28/18 16:19 Ur Specific [place] 1.020 (1.000-1.030) 09/28/18 16:19 Urine Protein 3+ (NEGATIVE) 09/28/18 16:19 Urine Glucose (UA) 4+ (NEGATIVE) 09/28/18 16:19 Urine Ketones 4+ (NEGATIVE) 09/28/18 16:19 Urine Occult Blood 3+ (NEGATIVE) 09/28/18 16:19 Urine Nitrite Negative (NEGATIVE) 09/28/18 16:19 Urine Bilirubin Negative (NEGATIVE) 09/28/18 16:19 Urine Urobilinogen Normal (NORMAL) 09/28/18 16:19 Ur Leukocyte Esterase Negative (NEGATIVE) 09/28/18 16:19 Urine RBC 3-5 /HPF (NONE SEEN) 09/28/18 16:19 Urine WBC 0-2 /HPF (NONE SEEN) 09/28/18 16:19 Ur Squamous Epith Cells Rare /HPF (NEGATIVE) 09/28/18 16:19 Urine Bacteria Negative /HPF (NEGATIVE) 09/28/18 16:19 Ur Culture Indicated? No/not indicated 09/28/18 16:19 Acetone, Semi-Quant Negative (NEGATIVE) 09/28/18 13:50 - Plan (1) Abdominal pain Status: Acute Qualifiers: Abdominal location: generalized Qualified Code(s): R10.84 - Generalized abdominal pain Plan: NORMAL SALINE AT 125ML/HR, PHENERGAN 25MG IM Q4H PRN NAUSEA, ZOFRAN 4MG IV Q6H PRN NAUSEA, REGLAN 10MG IV Q6H PRN, DEMEROL 50MG IV Q4H PRN, AND HUMULIN R SLIDING SCALE. (2) Nausea and vomiting in adult patient Status: Acute (3) Gastroparesis due to DM Status: Acute (4) Accelerated hypertension Status: Acute Plan: CONTINUE HOME MEDS
[2018-09-30] MEDS: NORVASC TAB 5 MG PO SCH ×2 (09:27→21:16)
[2018-09-30] MEDS: PROTONIX INJ 40 MG VIAL IVP SCH ×2 (09:27→21:15)
[2018-09-30] MEDS: DEMEROL INJ IVP PRN ×2 (13:19→21:15)
[2018-09-30] MEDS: PHENERGAN INJ 25 MG IM PRN (16:46)
[2018-09-30] MEDS: SNACK - Diabetic Appropriate PO SCH (21:15)
[2018-09-30] MEDS: RESTORIL CAP 30 MG PO SCH (21:16)
[2018-09-30] MEDS: COZAAR PO SCH (21:16)
[2018-09-30] MEDS: REGLAN INJ 10 MG VIAL IVP PRN (21:16)
[2018-10-01] MEDS: HumuLIN R SUBCUT PRN ×2 (05:18→12:52)
[2018-10-01] MEDS: DEMEROL INJ IVP PRN ×2 (05:19→10:56)
[2018-10-01] MEDS: NS 1000 ML 1,000 ML IV SCH ×2 (05:19→06:07)
[2018-10-01] MEDS: REGLAN INJ 10 MG VIAL IVP PRN (05:19)
[2018-10-01 05:59] LABS: BASOPHILS # (AUTO) 0.1 X10^3/uL (0.0-0.1); BASOPHILS % (AUTO) 0.8 % (0.2-1.0); EOSINOPHILS % (AUTO) 0.3 % (0.9-2.9); HEMATOCRIT 33.7 % (42.0-54.0); HEMOGLOBIN 11.2 g/dL (13.5-18.0); LYMPHOCYTES # (AUTO) 1.7 X10^3/uL (1.3-2.9); LYMPHOCYTES % (AUTO) 24.8 % (21.0-51.0); MEAN CORPUSCULAR HEMOGLOBIN 24.8 pg (27.0-34.0); MEAN CORPUSCULAR HGB CONC 33.4 g/dL (33.0-35.0); MEAN CORPUSCULAR VOLUME 74.2 fL (80.0-100.0); MEAN PLATELET VOLUME 8.6 fL (7.4-11.0); MONOCYTES # (AUTO) 0.4 x10^3/uL (0.3-0.8); MONOCYTES % (AUTO) 6.1 % (0.0-13.0); NEUTROPHILS # (AUTO) 4.8 x10^3/uL (2.2-4.8); PLATELET COUNT 263 X10^3/uL (150.0-450.0); RED BLOOD COUNT 4.54 X10^6/uL (4.7-6.0)
[2018-10-01 06:14] LABS: ALANINE AMINOTRANSFERASE 21 Units/L (12-78); ALBUMIN 3.1 g/dL (3.4-5.0); ALKALINE PHOSPHATASE 113 Units/L (46-116); ASPARTATE AMINO TRANSFERASE 22 Units/L (15-37); BLOOD UREA NITROGEN 11 mg/dL (7-18); CALCIUM 7.9 mg/dL (8.5-10.1); CARBON DIOXIDE 27.7 mmol/L (21-32); CHLORIDE 104 mmol/L (98-107); COR CA(FOR HYPOALB) 8.6 mg/dL (8.5-10.1); COR NA(FOR HYPERGLY) 142 mmol/L (136-145); CREATININE 0.97 mg/dL (0.70-1.30); SODIUM 141 mmol/L (136-145); TOTAL PROTEIN 6.9 g/dL (6.4-8.2); eGFR NON BLACK RACES > 60 (>60)
[2018-10-01 06:20] LABS: HYPOCHROMASIA SLIGHT; MICROCYTOSIS SLIGHT; PLATELET MORPHOLOGY COMMENT NORMAL (NORMAL)
--- NOTE | 2018-10-01 08:29 | PCM.PROG ---
Progress Note - Progress Note for Day of Date of Exam: 09/30/18 - Subjective Subjective: WAS ADMITTED FOR INTRACTABLE NAUSEA OR VOMITING AND ABDOMINAL PAIN. HE HAS A HISTORY OF DIABETIC GASTROPARESIS. HE CONTINUES WITH NAUSEA AND ABDOMINAL PAIN TODAY. ON EXAMINATION, HEART IS REGULAR IN RATE AND RHYTHM. BILATERAL LUNGS ARE CLEAR TO AUSCULTATION. ABDOMEN IS ROUND, SOFT, AND NOTED WITH MILD, DIFFUSE TENDERNESS. HYPERACTIVE BOWEL SOUNDS NOTED. HIS VITALS THIS MORNING ARE 98.0-85-20-99%-139/75. LABS WERE OBTAINED. ABNORMAL LAB VALUES INCLUDE THE FOLLOWING: RBC 3.99, HGB 9.9, HCT 30.5, CHLORIDE 108, BUN 20, CREATININE 1.35, GLUCOSE 193, CALCIUM 7.4, TOTAL PROTEIN 6.2, ALBUMIN 2.8. HE IS CURRENTLY RECEIVING NORMAL SALINE AT 125ML/HR, PHENERGAN 25MG IM Q4H PRN NAUSEA, ZOFRAN 4MG IV Q6H PRN NAUSEA, REGLAN 10MG IV Q6H PRN, DEMEROL 50MG IV Q4H PRN, AND HUMULIN R SLIDING SCALE. WE WILL CONTINUE WITH CURRENT PLAN OF CARE TODAY. OTHERWISE, WE WILL FOLLOW UP WITH AM LABS AND CONTINUE TO MONITOR. - Past Medical Family Social History Past Med/Fam/Surg Hx: No changes since H&P Allergies: Allergies codeine Allergy (Verified 07/28/18 19:30) morphine Allergy (Verified 07/28/18 19:30) - Review of Systems ROS: No change since H&P - Vital Signs and I&O's Vital Signs: Temperature 98.1 F Pulse Rate [Left Brachial] 113 Pulse Rate 111 Respiratory Rate 18 Blood Pressure [Right Arm] 171/87 Blood Pressure [Left Arm] 160/88 Blood Pressure [Left Radial 160/102 Artery] Blood Pressure 223/108 O2 Sat by Pulse Oximetry 99 Intake and Output: Intake & Output 09/28/18 09/29/18 09/30/18 10/01/18 11:59 11:59 11:59 11:59 Intake Total 2180 / 2180 3490 / 3490 3050 / 3050 Output Total 200 / 200 Balance 1979 / 1979 3490 / 3490 3050 / 3050 - Physical Exam Oriented: Normal Eyes: Normal Ear: Normal Nose: Normal Throat: Normal Respiratory: Normal Cardiovascular: Tachycardia. negative: S3, S4, Murmur : Normal Auscultation: Bowel Sounds: Normal Palpation: Normal Tenderness: Diffuse, Moderate. negative: Rebound, Guarding, Rigidity Skin: Decreased Turgur Musculoskeletal: Normal Psychiatric: Normal Mood Description: Calm Affect: Normal Speech Pattern: Clear, Appropriate - Laboratory and Diagnostics Result Diagrams: 10/01/18 05:06 10/01/18 05:06 Labs: Laboratory WBC 7.0 X10^3/uL (3.6-10.0) 10/01/18 05:06 RBC 4.54 X10^6/uL (4.7-6.0) L 10/01/18 05:06 Hgb 11.2 g/dL (13.5-18.0) L 10/01/18 05:06 Hct 33.7 % (42.0-54.0) L 10/01/18 05:06 MCV 74.2 fL (80.0-100.0) L 10/01/18 05:06 MCH 24.8 pg (27.0-34.0) L 10/01/18 05:06 MCHC 33.4 g/dL (33.0-35.0) 10/01/18 05:06 RDW 15.0 % (11.6-16.5) 10/01/18 05:06 Plt Count 263 X10^3/uL (150.0-450.0) 10/01/18 05:06 Plt Count Comment Adequate (ADEQUATE) 10/01/18 05:06 MPV 8.6 fL (7.4-11.0) 10/01/18 05:06 Neut % (Auto) 68.0 % (42.0-75.0) 10/01/18 05:06 Lymph % (Auto) 24.8 % (21.0-51.0) 10/01/18 05:06 [place] % (Auto) 6.1 % (0.0-13.0) 10/01/18 05:06 Eos % (Auto) 0.3 % (0.9-2.9) L 10/01/18 05:06 Baso % (Auto) 0.8 % (0.2-1.0) 10/01/18 05:06 Neut # (Auto) 4.8 x10^3/uL (2.2-4.8) 10/01/18 05:06 Lymph # (Auto) 1.7 X10^3/uL (1.3-2.9) 10/01/18 05:06 [place] # (Auto) 0.4 x10^3/uL (0.3-0.8) 10/01/18 05:06 Eos # (Auto) 0.0 x10^3/uL (0.0-0.2) 10/01/18 05:06 Baso # (Auto) 0.1 X10^3/uL (0.0-0.1) 10/01/18 05:06 Absolute Nucleated RBC 0.0 /100WBC 10/01/18 05:06 Plt Morphology Comment Normal (NORMAL) 10/01/18 05:06 RBC Morphology Abnormal (NORMAL) 10/01/18 05:06 Hypochromasia Slight A 10/01/18 05:06 Anisocytosis Slight A 09/30/18 04:58 Microcytosis Slight A 10/01/18 05:06 Sodium 141 mmol/L (136-145) 10/01/18 05:06 Corrected Sodium 142 mmol/L (136-145) 10/01/18 05:06 Potassium 3.1 mmol/L (3.5-5.1) L 10/01/18 05:06 Chloride 104 mmol/L (98-107) 10/01/18 05:06 Carbon Dioxide 27.7 mmol/L (21-32) 10/01/18 05:06 BUN 11 mg/dL (7-18) 10/01/18 05:06 Creatinine 0.97 mg/dL (0.70-1.30) 10/01/18 05:06 Est GFR (MDRD) Af Amer > 60 (>60) 10/01/18 05:06 Est GFR (MDRD) Non-Af > 60 (>60) 10/01/18 05:06 Glucose 158 mg/dL (65-99) H 10/01/18 05:06 POC Glucose (mg/dL) 165 mg/dL (65-99) H 10/01/18 04:51 Hemoglobin A1c 12.7 % 09/30/18 04:23 Calcium 7.9 mg/dL (8.5-10.1) L 10/01/18 05:06 Corrected Calcium 8.6 mg/dL (8.5-10.1) 10/01/18 05:06 Magnesium 2.0 mg/dL (1.7-2.9) 09/30/18 04:58 Total Bilirubin 0.30 mg/dL (0.2-1.0) 10/01/18 05:06 AST 22 Units/L (15-37) 10/01/18 05:06 ALT 21 Units/L (12-78) 10/01/18 05:06 Alkaline Phosphatase 113 Units/L (46-116) 10/01/18 05:06 Total Protein 6.9 g/dL (6.4-8.2) 10/01/18 05:06 Albumin 3.1 g/dL (3.4-5.0) L 10/01/18 05:06 Globulin 3.8 g/dL (2.5-4.5) 10/01/18 05:06 Albumin/Globulin Ratio 0.8 Ratio (1.1-2.1) L 10/01/18 05:06 Amylase 59 Units/L (25-115) 09/28/18 13:50 Lipase 72 Units/L (73-393) L 09/28/18 13:50 Specimen Type Clean catch urine 09/28/18 16:19 Urine Color Yellow (YELLOW) 09/28/18 16:19 Urine Appearance Clear (CLEAR) 09/28/18 16:19 Urine pH 5.0 (5.0 - 8.0) 09/28/18 16:19 Ur Specific [place] 1.020 (1.000-1.030) 09/28/18 16:19 Urine Protein 3+ (NEGATIVE) 09/28/18 16:19 Urine Glucose (UA) 4+ (NEGATIVE) 09/28/18 16:19 Urine Ketones 4+ (NEGATIVE) 09/28/18 16:19 Urine Occult Blood 3+ (NEGATIVE) 09/28/18 16:19 Urine Nitrite Negative (NEGATIVE) 09/28/18 16:19 Urine Bilirubin Negative (NEGATIVE) 09/28/18 16:19 Urine Urobilinogen Normal (NORMAL) 09/28/18 16:19 Ur Leukocyte Esterase Negative (NEGATIVE) 09/28/18 16:19 Urine RBC 3-5 /HPF (NONE SEEN) 09/28/18 16:19 Urine WBC 0-2 /HPF (NONE SEEN) 09/28/18 16:19 Ur Squamous Epith Cells Rare /HPF (NEGATIVE) 09/28/18 16:19 Urine Bacteria Negative /HPF (NEGATIVE) 09/28/18 16:19 Ur Culture Indicated? No/not indicated 09/28/18 16:19 Acetone, Semi-Quant Negative (NEGATIVE) 09/28/18 13:50 - Plan (1) Abdominal pain Status: Acute Qualifiers: Abdominal location: generalized Qualified Code(s): R10.84 - Generalized abdominal pain Plan: NORMAL SALINE AT 125ML/HR, PHENERGAN 25MG IM Q4H PRN NAUSEA, ZOFRAN 4MG IV Q6H PRN NAUSEA, REGLAN 10MG IV Q6H PRN, DEMEROL 50MG IV Q4H PRN, AND HUMULIN R SLIDING SCALE. (2) Nausea and vomiting in adult patient Status: Acute (3) Gastroparesis due to DM Status: Acute (4) Accelerated hypertension Status: Acute Plan: CONTINUE HOME MEDS
[2018-10-01] MEDS: NORVASC TAB 5 MG PO SCH (08:45)
[2018-10-01] MEDS: PROTONIX INJ 40 MG VIAL IVP SCH (08:45)
[2018-10-01 12:59] VITALS: BP 110/63
[2018-10-04] MEDS ORDERED: CATAPRES-TTS-3 TD SCH (09:00)
== END 2018-10-01 13:50 | disposition home or self-care (01) | DRG 392 ==
LOC: MED/SURG 13:33 → ER 13:33 → MED/SURG 15:55
PROVIDERS: ADMIT Internal Medicine; ATTEND Internal Medicine
DX: R10.84 Generalized abdominal pain; E78.2 Mixed hyperlipidemia; I10 Essential (primary) hypertension; R11.2 Nausea with vomiting, unspecified; E11.43 Type 2 diabetes mellitus with diabetic autonomic (poly)neuropathy; E11.65 Type 2 diabetes mellitus with hyperglycemia; I25.10 Atherosclerotic heart disease of native coronary artery without angina pectoris
CPT/HCPCS: 36415; 80053; 81001; 82009; 82150; 82947; 83036; 83690; 83735; 84132; 85025; 96365; 96374; 96375; 99284; A4216; A4222; C9113; G0378; J1815; J2175; J2405; J2550; J2765; J7030

== ENCOUNTER 2018-11-03 20:27 | Inpatient (IN) ==
[2018-11-03 20:40] VITALS: BMI 25.9
[2018-11-03] MEDS ORDERED: ZOFRAN INJ 4 MG VIAL IVP ONE (20:44)
[2018-11-03] MEDS ORDERED: NS 1000 ML 1,000 ML IV ONE (20:44)
[2018-11-03] MEDS ORDERED: ZOFRAN INJ 4 MG VIAL ONE (20:46)
[2018-11-03] MEDS ORDERED: NS 1000 ML 1,000 ML ONE (20:46)
--- NOTE | 2018-11-03 20:47 | DR.GENAD ---
HPI Time Seen Time Seen by Provider: 11/03/18 20:40 PCP Primary Care Physician: SAVANNAH HPI Comment HPI Comment: PATIENT IS 47YR OLD MALE WITH HISTORY OF DM, HTN AND DIABETIC GASTROPARESIS IS IN ED WITH PERSISTENT NAUSEA AND VOMINT SINCE YESTERDAY. PATIENT HAVE NOT TAKEN ANY OF HIS HOME MEDICATIONS FOR PAST 24HRS. HE IS WEAK AND ACTIVELY VOMITING IN ED. DENIES FEVER. GENERALIZE SORENESS AND ABDOMINAL PAIN PRESENT. VOMITED MEDS HE TRY TO TAKE. Complaint/Symptoms Chief Complaint Doctors Comments: PERSISTENT NAUSEA AND VOMITING TIMES ONE DAY. Chief Complaint:: STATES SICK SINCE YESTERDAY WITH NO RELIEF, PT ACTIVELY VOMITING IN TRAIGE, Self Treatment fo Chief Complaint: PHENERGAN PO AT HOME Nurses notes reviewed Nurses Notes Review: Yes Source History Provided: Patient Mode of Arrival Mode of Arrival: Ambulatory Timing Onset of Chief Complaint: 11/03/18 Came on: Suddenly Duration Duration: Constant Duration: Days Location Location: ABDOMEN Severity Severity: Moderate Modifying Factors Worsens:: MOVEMENT Improves:: LYING STILL. Associated Signs and Symptoms Associated Signs and Symptoms: WEAKNESS AND DIZZINESS. Other History Other History: HISTORY DM AND HYPERTENSION. PMH PMH Past Medical History: Yes Past Medical History: Anemia, Coronary Artery Disease, Diabetes, Dyslipidemia, Hypertension and PUD Past Surgical History: Yes Surgical History: Cholecystectomy, Ortho Surgery and Other Family History History of Family Medical Conditions: Yes Family Medical History: Diabetes Mellitus and Coronary Artery Disease Social History Does patient currently use any type of tobacco product: No Have you used tobacco products in the last 12 months: No Type of Tobacco Use: None Does any household member use tobacco: No Alcohol Use: None Do you use any recreational Drugs:: No Lives With: Spouse Lives Where: Home infectious screening In the last 2 months have you had wt loss of >10#?: NO Have you had fever, night sweats or hemotysis?: No Have you traveled outside the country in the last 6 months?: No Isolation: Standard ROS Review of Systems Constitutional: See HPI, Diaphoresis, Weakness, Fatigue and Loss of Appetite; negative Chills and Fever Eyes: No Symptoms Reported and See HPI; negative Eye Pain, Blurred Vision and Discharge ENTM: See HPI and Throat Pain; negative Ear Pain, Nose Pain and Nose Discharge Respiratoy: No Symptoms Reported; negative Productive Cough, Short of Breath and Wheezing Cardiovascular: Palpitations; negative Chest Pain, Edema, Syncope and Cyanosis Gastrointestinal/Abdominal: See HPI, Abdominal Pain, Nausea and Vomiting; negative Constipation and Diarrhea Genitourinary: See HPI and Other (DECREASE URINATION.); negative Dysuria, Frequency and Hematuria Neurological: See HPI, Weakness and Dizziness; negative Headache Musculoskeletal: Back Pain, Joint Swelling and Muscle Pain; negative Neck Pain Integumentary: See HPI and Dryness; negative Change in Color, Rash, Bruises and Juandice Hematologic/Lymphatic: No Symptoms Reported and See HPI; negative Easy Bleeding, Easy Bruising, Swollen Glands and Lymphadenopathy Endocrine: Increased Thirst and Decreased Appetite; negative Increased Urine Psychiatric: No Symptoms Reported and See HPI All Other Systems: Reviewed and Negative PE Vital Signs Vitals: Temperature 97.5 F Pulse Rate [Left] 103 Pulse Rate 100 Respiratory Rate 18 Blood Pressure [Right Arm] 168/103 Blood Pressure [Left Arm] 118/79 Blood Pressure [Left Radial 160/102 Artery] Blood Pressure 173/95 O2 Sat by Pulse Oximetry 100 General Limitations: No Limitations General Appearance: Alert and In No Apparent Distress Head Head Exam: Normal Inspection, Atraumatic and Normocephalic Eyes Eye exam: Normal Appearance, PERRL and EOMI; negative Scleral Icterus, Conjunctival Injection, Nystagmus, Periorbital Swelling and Periorbital Tenderness ENT ENT Exam: Normal Exam, Normal Oropharynx, Normal External Ear Exam, Mucous Membranes Moist and TM's Normal Bilaterally External Ear Exam: Normal External Inspection; negative Mastoid Tenderness, Pain with Movement and External Tenderness TM/Canal Exam: Bilateral: Normal Nose Exam: Normal Nose Exam; negative Sinus Tenderness, Nasal Deviation and Septal Hematoma Mouth Exam: Normal Inspection; negative Trismus, Lip Swelling and Tongue Swelling Throat Exam: Tonsillar Erythema; negative Tonsillomegaly and Tonsillar Exudate Neck Neck Exam: negative Trachea Midline, Tenderness, Meningismus and Lymphadenopathy MDM Additional Information Additional Information Obtained From: Family Differential Diagnosis Differential Diagnosis: DEHYDRATION, DIABETIC GASTROPARESIS, HYPERTENSION, PERSISTENT VOMITING. COURSE Treatment Treatment: SEE ORDERS. NS 1L IV BOLUD. DEMOROL 50MG IV AND ZOFRAN 4MG IV. PAIN SLIGHTLY IMPROVED. DEMOROL 50MG IV Q4HRS AND ZOFRAN 4MG IV Q6HRS PRN FOR PAIN. PATIENT TO BE ADMITTED PENDING TALKING [employer] HELPER DR. Negron Consultation Comments: DR. NUÑEZ WILL ADMITPATIENT. ADMISSION ORDERS DONE. Education/Counseling Education/Counseling: Patient Educated On: Diagnosis ROR Labs Reviewed Laboratory Results Reviewed?: Yes Result Diagrams: 11/04/18 06:20 11/04/18 06:20 Laboratory: WBC 10.6 X10^3/uL (3.6-10.0) H 11/04/18 06:20 RBC 4.84 X10^6/uL (4.7-6.0) 11/04/18 06:20 Hgb 11.7 g/dL (13.5-18.0) L 11/04/18 06:20 Hct 35.6 % (42.0-54.0) L 11/04/18 06:20 MCV 73.6 fL (80.0-100.0) L 11/04/18 06:20 MCH 24.2 pg (27.0-34.0) L 11/04/18 06:20 MCHC 32.9 g/dL (33.0-35.0) L 11/04/18 06:20 RDW 16.5 % (11.6-16.5) 11/04/18 06:20 Plt Count 311 X10^3/uL (150.0-450.0) 11/04/18 06:20 Plt Count Comment Adequate (ADEQUATE) 11/04/18 06:20 MPV 8.1 fL (7.4-11.0) 11/04/18 06:20 Neut % (Auto) 79.5 % (42.0-75.0) H 11/04/18 06:20 Lymph % (Auto) 12.2 % (21.0-51.0) L 11/04/18 06:20 [place] % (Auto) 7.9 % (0.0-13.0) 11/04/18 06:20 Eos % (Auto) 0.0 % (0.9-2.9) L 11/04/18 06:20 Baso % (Auto) 0.4 % (0.2-1.0) 11/04/18 06:20 Neut # (Auto) 8.4 x10^3/uL (2.2-4.8) H 11/04/18 06:20 Lymph # (Auto) 1.3 X10^3/uL (1.3-2.9) 11/04/18 06:20 [place] # (Auto) 0.8 x10^3/uL (0.3-0.8) 11/04/18 06:20 Eos # (Auto) 0.0 x10^3/uL (0.0-0.2) 11/04/18 06:20 Baso # (Auto) 0.0 X10^3/uL (0.0-0.1) 11/04/18 06:20 Absolute Nucleated RBC 0.0 /100WBC 11/04/18 06:20 Plt Morphology Comment Normal (NORMAL) 11/04/18 06:20 RBC Morphology Abnormal (NORMAL) 11/04/18 06:20 Hypochromasia 1+ A 11/03/18 20:58 Anisocytosis Slight A 11/03/18 20:58 Microcytosis Slight A 11/04/18 06:20 Sodium 138 mmol/L (136-145) 11/04/18 06:20 Corrected Sodium 142 mmol/L (136-145) 11/04/18 06:20 Potassium 4.3 mmol/L (3.5-5.1) 11/04/18 06:20 Chloride 100 mmol/L (98-107) 11/04/18 06:20 Carbon Dioxide 29.0 mmol/L (21-32) 11/04/18 06:20 BUN 39 mg/dL (7-18) H 11/04/18 06:20 Creatinine 1.52 mg/dL (0.70-1.30) H 11/04/18 06:20 Est GFR (MDRD) Af Amer > 60 (>60) 11/04/18 06:20 Est GFR (MDRD) Non-Af 53 (>60) L 11/04/18 06:20 Glucose 278 mg/dL (65-99) H 11/04/18 06:20 Calcium 8.4 mg/dL (8.5-10.1) L 11/04/18 06:20 Corrected Calcium TNP 11/04/18 06:20 Total Bilirubin 0.90 mg/dL (0.2-1.0) 11/04/18 06:20 AST 16 Units/L (15-37) 11/04/18 06:20 ALT 16 Units/L (12-78) 11/04/18 06:20 Alkaline Phosphatase 118 Units/L (46-116) H 11/04/18 06:20 Total Protein 7.8 g/dL (6.4-8.2) 11/04/18 06:20 Albumin 3.4 g/dL (3.4-5.0) 11/04/18 06:20 Globulin 4.4 g/dL (2.5-4.5) 11/04/18 06:20 Albumin/Globulin Ratio 0.8 Ratio (1.1-2.1) L 11/04/18 06:20 Amylase 61 Units/L (25-115) 11/03/18 20:58 Lipase 113 Units/L (73-393) 11/03/18 20:58 XRAY XRAY Interpreted by: Radiologist XRAY Findings: REPORT NOTED AND DISCUSS WITH PATIENT. Diagnosis Discharge Problem: Acute dehydration, Diabetic gastroparalysis Abdominal pain Qualifiers: Abdominal location: generalized Qualified Code(s): R10.84 - Generalized abdominal pain N&V (nausea and vomiting) Qualifiers: Vomiting type: bilious vomiting Qualified Code(s): R11.14 - Bilious vomiting
[2018-11-03 21:10] LABS: BASOPHILS % (AUTO) 0.3 % (0.2-1.0); HEMATOCRIT 37.9 % (42.0-54.0); HEMOGLOBIN 12.2 g/dL (13.5-18.0); LYMPHOCYTES # (AUTO) 1.2 X10^3/uL (1.3-2.9); MEAN CORPUSCULAR HEMOGLOBIN 23.7 pg (27.0-34.0); MEAN CORPUSCULAR HGB CONC 32.1 g/dL (33.0-35.0); MEAN CORPUSCULAR VOLUME 73.9 fL (80.0-100.0); MEAN PLATELET VOLUME 8.5 fL (7.4-11.0); MONOCYTES # (AUTO) 1.1 x10^3/uL (0.3-0.8); MONOCYTES % (AUTO) 7.2 % (0.0-13.0); NEUTROPHILS # (AUTO) 12.7 x10^3/uL (2.2-4.8); NEUTROPHILS % (AUTO) 84.5 % (42.0-75.0); PLATELET COUNT 346 X10^3/uL (150.0-450.0); RED BLOOD COUNT 5.14 X10^6/uL (4.7-6.0); RED CELL DISTRIBUTION WIDTH 17.2 % (11.6-16.5)
[2018-11-03 21:18] LABS: ALANINE AMINOTRANSFERASE 18 Units/L (12-78); ALBUMIN 3.7 g/dL (3.4-5.0); ALKALINE PHOSPHATASE 125 Units/L (46-116); AMYLASE 61 Units/L (25-115); ASPARTATE AMINO TRANSFERASE 16 Units/L (15-37); BLOOD UREA NITROGEN 49 mg/dL (7-18); CALCIUM 9.4 mg/dL (8.5-10.1); CARBON DIOXIDE 29.4 mmol/L (21-32); CHLORIDE 93 mmol/L (98-107); COR NA(FOR HYPERGLY) 141 mmol/L (136-145); CREATININE 2.21 mg/dL (0.70-1.30); LIPASE 113 Units/L (73-393); SODIUM 135 mmol/L (136-145); TOTAL PROTEIN 8.2 g/dL (6.4-8.2); eGFR NON BLACK RACES 34 (>60)
[2018-11-03 21:30] LABS: ANISOCYTOSIS SLIGHT; HYPOCHROMASIA 1+; PLATELET MORPHOLOGY COMMENT NORMAL (NORMAL)
[2018-11-03] MEDS ORDERED: ZOFRAN SYRUP 4 MG UDC PO ONE (21:39)
[2018-11-03] MEDS ORDERED: DEMEROL INJ IVP ONE (21:39)
[2018-11-03] MEDS ORDERED: DEMEROL INJ ONE (21:47)
--- NOTE | 2018-11-03 23:04 | RAD ---
Acute abdominal series, four views Indication: Nausea, vomiting, abdominal pain Comparison: 07/28/2018 Findings: Heart is normal in size. Bilateral lung apices are partially excluded from the [id number]. Visualized lungs are clear. No significant pleural effusion is identified. A left-sided port catheter terminates over the caudal SVC without pneumothorax. The visualized bowel gas pattern is nonobstructive. No free air or pneumatosis is identified. No pathologic calcifications seen. Prior cholecystectomy noted. Imaged osseous structures are grossly intact. Impression: No acute cardiopulmonary or abdominal abnormality. Reported By:
[2018-11-04] MEDS ORDERED: DEMEROL INJ IVP ONE (00:17)
[2018-11-04] MEDS ORDERED: ZOFRAN INJ 4 MG VIAL IVP ONE (00:18)
[2018-11-04] MEDS ORDERED: ZOFRAN INJ 4 MG VIAL ONE ×2 (00:22→06:01)
[2018-11-04] MEDS ORDERED: DEMEROL INJ ONE ×2 (00:23→06:02)
[2018-11-04] MEDS: NS 1000 ML 1,000 ML IV SCH ×3 (00:33→16:51)
[2018-11-04] MEDS ORDERED: PHENERGAN INJ 25 MG IM ONE ×2 (03:59→04:01)
[2018-11-04] MEDS ORDERED: ZOFRAN INJ 4 MG VIAL IVP PRN (05:57)
[2018-11-04] MEDS: DEMEROL INJ IVP PRN ×4 (06:23→21:44)
[2018-11-04 06:35] LABS: BASOPHILS % (AUTO) 0.4 % (0.2-1.0); HEMATOCRIT 35.6 % (42.0-54.0); HEMOGLOBIN 11.7 g/dL (13.5-18.0); LYMPHOCYTES # (AUTO) 1.3 X10^3/uL (1.3-2.9); LYMPHOCYTES % (AUTO) 12.2 % (21.0-51.0); MEAN CORPUSCULAR HEMOGLOBIN 24.2 pg (27.0-34.0); MEAN CORPUSCULAR HGB CONC 32.9 g/dL (33.0-35.0); MEAN CORPUSCULAR VOLUME 73.6 fL (80.0-100.0); MEAN PLATELET VOLUME 8.1 fL (7.4-11.0); MONOCYTES # (AUTO) 0.8 x10^3/uL (0.3-0.8); MONOCYTES % (AUTO) 7.9 % (0.0-13.0); NEUTROPHILS # (AUTO) 8.4 x10^3/uL (2.2-4.8); NEUTROPHILS % (AUTO) 79.5 % (42.0-75.0); PLATELET COUNT 311 X10^3/uL (150.0-450.0); RED BLOOD COUNT 4.84 X10^6/uL (4.7-6.0); RED CELL DISTRIBUTION WIDTH 16.5 % (11.6-16.5); WHITE BLOOD COUNT 10.6 X10^3/uL (3.6-10.0)
[2018-11-04 06:42] LABS: ALANINE AMINOTRANSFERASE 16 Units/L (12-78); ALBUMIN 3.4 g/dL (3.4-5.0); ALKALINE PHOSPHATASE 118 Units/L (46-116); ASPARTATE AMINO TRANSFERASE 16 Units/L (15-37); BLOOD UREA NITROGEN 39 mg/dL (7-18); CALCIUM 8.4 mg/dL (8.5-10.1); CHLORIDE 100 mmol/L (98-107); COR NA(FOR HYPERGLY) 142 mmol/L (136-145); CREATININE 1.52 mg/dL (0.70-1.30); SODIUM 138 mmol/L (136-145); TOTAL PROTEIN 7.8 g/dL (6.4-8.2); eGFR NON BLACK RACES 53 (>60)
[2018-11-04 06:58] LABS: MICROCYTOSIS SLIGHT; PLATELET MORPHOLOGY COMMENT NORMAL (NORMAL)
[2018-11-04] MEDS: PHENERGAN INJ 25 MG IM PRN ×2 (08:48→21:44)
[2018-11-04] MEDS: PEPCID 20 MG IV PREMIX* 20 MG/50 ML BAG IV PRN ×2 (08:55→21:42)
[2018-11-04] MEDS: HumuLIN R SUBCUT PRN ×2 (12:39→16:51)
[2018-11-04 17:08] LABS: BILIRUBIN,URINE NEGATIVE (NEGATIVE); BLOOD/HEMOGLOBIN,URINE 1+ (NEGATIVE); GLUCOSE, URINE 4+ (NEGATIVE); KETONES,URINE 2+ (NEGATIVE); LEUKOCYTE ESTERASE ,URINE NEGATIVE (NEGATIVE); NITRITES,URINE NEGATIVE (NEGATIVE); PROTEIN,URINE 2+ (NEGATIVE); UROBILINOGEN,URINE NORMAL (NORMAL)
[2018-11-04 17:21] LABS: APPEARANCE,URINE SLIGHTLY HAZY (CLEAR); COLOR,URINE YELLOW (YELLOW); RBC,URINE 0-2 /HPF (NONE SEEN); SQUAMOUS EPITHELIAL CELL,UR RARE /HPF (NEGATIVE)
[2018-11-04 17:22] LABS: BACTERIA,URINE NEGATIVE /HPF (NEGATIVE)
[2018-11-04] MEDS ORDERED: NORCO 10/325 TAB PO PRN (19:42)
[2018-11-04] MEDS ORDERED: CATAPRES-TTS-3 TD SCH ×2 (20:00)
[2018-11-04] MEDS ORDERED: SNACK - Diabetic Appropriate PO SCH (20:00)
--- NOTE | 2018-11-04 20:20 | DR.H&P ---
H&P - History & Physical for Day of: H&P Date: 11/04/18 - Chief Complaint Chief Complaint: NAUSEA, VOMITING, ABDOMINAL PAIN - History of Present Illness History of Present Illness: IS A 47 YEAR OLD PATIENT OF OURS WHO PRESENTED TO THE ER WITH COMPLAINTS OF NAUSEA, VOMITING, AND ABDOMINAL PAIN THAT STARTED YESTERDAY. HE HAS A HISTORY OF DIABETIC GASTROPARESIS. HE IS GENERALLY NON-COMPLIANT WITH A DIABETIC DIET. HE REPORTS BEING UNABLE TO HOLD DOWN ANY OF HIS HOME MEDICATIONS. ON ARRIVAL, VITALS WERE 96.7-127-22-94/53. LABS WERE OBTAINED. ABNORMAL LAB VALUES INCLUDE THE FOLLOWING: HGB 15.0, HGB 12.2, HCT 37.9, SODIUM 135, CHLORIDE 93, BUN 49, CREATININE 2.21, GLUCOSE 369, ALK PHOS 125. AN ABDOMINAL XRAY WAS OBTAINED AND REVEALED: NO ACUTE ABNORMALITY. HE WAS GIVEN ZOFRAN 4MG IV X 1 DOSE, DEMEROL 50MG IV X 1 DOSE, AND A NORMAL SALINE BOLUS. ONLY SLIGHT IMPROVEMENT IN SYMPTOMS NOTED. BLOOD PRESSURE INCREASED TO 127/90. HE WAS ADMITTED FOR FURTHER EVALUATION AND TREATMENT OF INTRACTABLE NAUSEA AND VOMITING, ABDOMINAL PAIN, AND DIABETIC GASTROPARESIS. HE WAS STARTED ON NORMAL SALINE AT 125ML/HR, PHENERGAN 25MG IM Q6H PRN NAUSEA, ZOFRAN 4MG IV Q6H PRN NAUSEA, DEMEROL 50MG IV Q4H PRN, PEPCID 20MG IV BID, HUMULIN R SLIDING SCALE, AND HOME MEDICATIONS WERE RESUMED. WE PLAN TO FOLLOW-UP WITH AM LABS AND CONTINUE TO MONITOR. - Past Medical History Past Medical History: Coronary Artery Disease, Hypertension, Dyslipidemia, Diabetes, Anemia, PUD Additional Medical History: Diabetic Neuropathy, Diabetic Gastroparesis, Hiatal Hernia, Gastric Ulcer, Gall Bladder Disease, Back Pain - Past Surgical History Surgical History: Cholecystectomy, Ortho Surgery, Other Additional Surgical History: Right foot I&D - Family History Family Medical History: Diabetes Mellitus, Coronary Artery Disease - Social History Does patient currently use any type of tobacco product: No Have you used tobacco products in the last 12 months: No Type of Tobacco Use: None Does any household member use tobacco: No Alcohol Use: None Drug Use: None - Medications Home Medications: codeine Allergy (Verified 11/03/18 20:40) morphine Allergy (Verified 11/03/18 20:40) CONTINUE taking the following medications amlodipine 5 mg PO DAILY 11/04/18 [History] clonidine [[id number]] 1 patch TOPICAL WEEKLY 11/04/18 [History] gabapentin 300 mg PO TID 11/04/18 [History] glipizide 10 mg PO DAILY 11/04/18 [History] hydrocodone-acetaminophen 1 tab PO QID PRN 11/04/18 [History] losartan 50 mg PO HS 11/04/18 [History] pantoprazole 40 mg PO BID 11/04/18 [History] potassium chloride 20 meq PO DAILY 11/04/18 [History] promethazine 25 mg PO Q6H PRN 11/04/18 [History] temazepam 30 mg PO HS 11/04/18 [History] - Review of Systems Constitutional: Weakness Eyes: No Symptoms Reported ENT: No Symptoms Reported Respiratory: No Symptoms Reported Cardiovascular: No Symptoms Reported Gastrointestinal: Nausea, Vomiting, Abdominal Pain Genitourinary: No Symptoms Reported Musculoskeletal: No Symptoms Reported Skin: No Symptoms Reported Neurological: Weakness - Physical Exam Vital Signs: Temperature 97.8 F Pulse Rate [Left] 112 Pulse Rate 100 Respiratory Rate 18 Blood Pressure [Right Arm] 168/103 Blood Pressure [Left Arm] 184/102 Blood Pressure [Left Radial 160/102 Artery] Blood Pressure 173/95 O2 Sat by Pulse Oximetry 100 Oriented: Normal Eyes: Normal Ear: Normal Nose: Normal Throat: Normal Respiratory: Diminished Throughout Cardiovascular: Normal : Normal Auscultation: Bowel Sounds: Normal Palpation: Normal Tenderness: Diffuse, Moderate Skin: Normal Musculoskeletal: Normal Psychiatric: Normal Mood Description: Calm Affect: Normal Speech Pattern: Clear - Assessment/Plan (1) Dehydration Status: Acute Plan: NORMAL SALINE AT 125ML/HR, CONTINUE TO MONITOR (2) Diabetic gastroparesis Status: Acute (3) Intractable vomiting with nausea Qualifiers: Vomiting type: unspecified Qualified Code(s): R11.2 - Nausea with vomiting, unspecified Status: Acute Plan: PHENERGAN IM, ZOFRAN IV, CONTINUE TO MONITOR - Allergies Allergies/Adverse Reactions: Allergies Allergy/AdvReac Type Severity Reaction Status Date / Time codeine Allergy Verified 11/03/18 20:40 morphine Allergy Verified 11/03/18 20:40
[2018-11-04] MEDS: PROTONIX TAB 40 MG PO SCH (21:43)
[2018-11-04] MEDS: NEURONTIN CAP 300 MG PO SCH (21:43)
[2018-11-04] MEDS: COZAAR PO SCH (21:43)
[2018-11-04] MEDS: SNACK - Diabetic Appropriate PO SCH (21:45)
[2018-11-04] MEDS: GLUCOTROL PO SCH (22:02)
[2018-11-04] MEDS: NORVASC TAB 5 MG PO SCH (22:03)
[2018-11-04] MEDS: RESTORIL CAP 30 MG PO SCH (22:03)
[2018-11-05] MEDS: DEMEROL INJ IVP PRN ×4 (04:41→22:29)
[2018-11-05] MEDS: NS 1000 ML 1,000 ML IV SCH ×4 (04:48→17:29)
[2018-11-05] MEDS: NEURONTIN CAP 300 MG PO SCH ×3 (05:04→21:35)
[2018-11-05 05:23] LABS: BASOPHILS % (AUTO) 0.5 % (0.2-1.0); EOSINOPHILS % (AUTO) 0.4 % (0.9-2.9); HEMATOCRIT 33.5 % (42.0-54.0); HEMOGLOBIN 10.6 g/dL (13.5-18.0); LYMPHOCYTES # (AUTO) 1.7 X10^3/uL (1.3-2.9); LYMPHOCYTES % (AUTO) 26.6 % (21.0-51.0); MEAN CORPUSCULAR HEMOGLOBIN 23.9 pg (27.0-34.0); MEAN CORPUSCULAR HGB CONC 31.6 g/dL (33.0-35.0); MEAN CORPUSCULAR VOLUME 75.7 fL (80.0-100.0); MEAN PLATELET VOLUME 8.4 fL (7.4-11.0); MONOCYTES # (AUTO) 0.7 x10^3/uL (0.3-0.8); MONOCYTES % (AUTO) 10.9 % (0.0-13.0); NEUTROPHILS % (AUTO) 61.6 % (42.0-75.0); PLATELET COUNT 262 X10^3/uL (150.0-450.0); RED BLOOD COUNT 4.43 X10^6/uL (4.7-6.0); RED CELL DISTRIBUTION WIDTH 16.2 % (11.6-16.5); WHITE BLOOD COUNT 6.5 X10^3/uL (3.6-10.0)
[2018-11-05 05:44] LABS: HYPOCHROMASIA SLIGHT; PLATELET MORPHOLOGY COMMENT NORMAL (NORMAL)
[2018-11-05 05:45] LABS: ALANINE AMINOTRANSFERASE 17 Units/L (12-78); ALBUMIN 3.2 g/dL (3.4-5.0); ALKALINE PHOSPHATASE 98 Units/L (46-116); ASPARTATE AMINO TRANSFERASE 24 Units/L (15-37); BLOOD UREA NITROGEN 26 mg/dL (7-18); CALCIUM 8.2 mg/dL (8.5-10.1); CARBON DIOXIDE 26.7 mmol/L (21-32); CHLORIDE 103 mmol/L (98-107); COR CA(FOR HYPOALB) 8.8 mg/dL (8.5-10.1); CREATININE 1.08 mg/dL (0.70-1.30); SODIUM 138 mmol/L (136-145); TOTAL PROTEIN 7.1 g/dL (6.4-8.2); eGFR NON BLACK RACES > 60 (>60)
[2018-11-05] MEDS: GLUCOTROL PO SCH (09:15)
[2018-11-05] MEDS: K-DUR TAB 20 MEQ PO SCH (09:15)
[2018-11-05] MEDS: NORVASC TAB 5 MG PO SCH (09:16)
[2018-11-05] MEDS: PROTONIX TAB 40 MG PO SCH ×2 (09:16→21:35)
[2018-11-05] MEDS: HumuLIN R SUBCUT PRN ×2 (12:21→22:28)
[2018-11-05] MEDS: PHENERGAN INJ 25 MG IM PRN (14:21)
[2018-11-05] MEDS: RESTORIL CAP 30 MG PO SCH (21:35)
[2018-11-05] MEDS: COZAAR PO SCH (21:35)
[2018-11-05] MEDS: SNACK - Diabetic Appropriate PO SCH (22:15)
[2018-11-06 05:41] LABS: BASOPHILS % (AUTO) 0.7 % (0.2-1.0); EOSINOPHILS # (AUTO) 0.1 x10^3/uL (0.0-0.2); EOSINOPHILS % (AUTO) 1.1 % (0.9-2.9); HEMATOCRIT 27.4 % (42.0-54.0); HEMOGLOBIN 9.1 g/dL (13.5-18.0); LYMPHOCYTES # (AUTO) 2.2 X10^3/uL (1.3-2.9); LYMPHOCYTES % (AUTO) 38.8 % (21.0-51.0); MEAN CORPUSCULAR HEMOGLOBIN 24.7 pg (27.0-34.0); MEAN CORPUSCULAR HGB CONC 33.1 g/dL (33.0-35.0); MEAN CORPUSCULAR VOLUME 74.6 fL (80.0-100.0); MONOCYTES # (AUTO) 0.5 x10^3/uL (0.3-0.8); MONOCYTES % (AUTO) 9.1 % (0.0-13.0); NEUTROPHILS # (AUTO) 2.9 x10^3/uL (2.2-4.8); NEUTROPHILS % (AUTO) 50.3 % (42.0-75.0); PLATELET COUNT 128 X10^3/uL (150.0-450.0); RED BLOOD COUNT 3.67 X10^6/uL (4.7-6.0); RED CELL DISTRIBUTION WIDTH 16.3 % (11.6-16.5); WHITE BLOOD COUNT 5.7 X10^3/uL (3.6-10.0)
[2018-11-06 06:02] LABS: ALANINE AMINOTRANSFERASE 17 Units/L (12-78); ALBUMIN 2.6 g/dL (3.4-5.0); ALKALINE PHOSPHATASE 89 Units/L (46-116); ASPARTATE AMINO TRANSFERASE 19 Units/L (15-37); BLOOD UREA NITROGEN 22 mg/dL (7-18); CALCIUM 7.8 mg/dL (8.5-10.1); CARBON DIOXIDE 25.7 mmol/L (21-32); CHLORIDE 106 mmol/L (98-107); COR CA(FOR HYPOALB) 8.9 mg/dL (8.5-10.1); COR NA(FOR HYPERGLY) 138 mmol/L (136-145); CREATININE 1.11 mg/dL (0.70-1.30); SODIUM 138 mmol/L (136-145); eGFR NON BLACK RACES > 60 (>60)
[2018-11-06] MEDS: NEURONTIN CAP 300 MG PO SCH (06:02)
[2018-11-06] MEDS ORDERED: POTASSIUM CHL 40 MEQ/NS 0.45% 500 ML IV PRN (06:27)
[2018-11-06] MEDS ORDERED: KLOR-CON PO PRN (06:27)
[2018-11-06] MEDS ORDERED: K-DUR TAB 20 MEQ PO PRN (06:27)
[2018-11-06] MEDS ORDERED: POTASSIUM CHLORIDE LIQ 20 MEQ UDC PO PRN (06:27)
[2018-11-06] MEDS ORDERED: K-RIDER 10 MEQ/NS 100 ML 10 MEQ/100 ML BAG IV PRN (06:27)
[2018-11-06] MEDS ORDERED: POTASSIUM CHL 60 MEQ/NS 0.45% 500 ML IV PRN (06:27)
[2018-11-06] MEDS ORDERED: MICRO K EXTEN CAP 10 MEQ PO PRN (06:27)
[2018-11-06 06:31] LABS: GIANT PLATELET RARE; PLATELET MORPHOLOGY COMMENT NORMAL (NORMAL)
[2018-11-06] MEDS: DEMEROL INJ IVP PRN (06:59)
[2018-11-06] MEDS: NS 1000 ML 1,000 ML IV SCH ×2 (08:28→09:31)
[2018-11-06] MEDS: K-DUR TAB 20 MEQ PO SCH (08:30)
[2018-11-06] MEDS: PROTONIX TAB 40 MG PO SCH (08:31)
[2018-11-06] MEDS: GLUCOTROL PO SCH (08:31)
[2018-11-06] MEDS: NORVASC TAB 5 MG PO SCH (08:31)
[2018-11-06 09:23] VITALS: BP 98/57
== END 2018-11-06 11:05 | disposition home or self-care (01) | DRG 641 ==
LOC: MED/SURG 20:31 → ER 20:31 → OBSVTOIN 11-04 07:04 → MED/SURG 11-04 08:04
PROVIDERS: ADMIT Internal Medicine; ATTEND Internal Medicine
DX: R42 Dizziness and giddiness; I25.10 Atherosclerotic heart disease of native coronary artery without angina pectoris; R10.84 Generalized abdominal pain; R11.14 Bilious vomiting; E11.43 Type 2 diabetes mellitus with diabetic autonomic (poly)neuropathy; E11.65 Type 2 diabetes mellitus with hyperglycemia; E78.2 Mixed hyperlipidemia; I10 Essential (primary) hypertension; K31.84 Gastroparesis; E86.0 Dehydration
CPT/HCPCS: 36415; 74022; 80053; 81001; 82150; 83690; 83735; 85025; 96365; 96367; 96372; 96374; 96375; 99284; A4222; S0028; J1642; J1815; J2175; J2405; J2550; J7030

== ENCOUNTER 2018-12-03 15:39 | Inpatient (IN) ==
[2018-12-03 15:50] VITALS: BMI 27.4
[2018-12-03] MEDS ORDERED: NS 1000 ML 1,000 ML IV ONE (16:07)
[2018-12-03] MEDS ORDERED: DEMEROL INJ IVP ONE (16:07)
[2018-12-03] MEDS ORDERED: ZOFRAN INJ 4 MG VIAL IVP ONE ×2 (16:07→17:25)
--- NOTE | 2018-12-03 16:10 | DR.N/VMALE ---
HPI Time Seen Time Seen by Provider: 12/03/18 16:04 Primary Care Physician Primary Care Physician: SAVANNAH SHARPE HPI Comment HPI Comment: PATIENT IS 48YR OLD MALE WITH HISTORY OF DIABETIC GASTROPARESIS IS IN ER WITH ABDOMINA PAIN, NAUSEA AND VOMITING. PATIENT IS DIAPHORETIC AND WEAK. PAIN 10/10 AND RADIATES TO THE BACK. PATIENT NOT HOLDING DOWN FLUID OR MEDICATION. DENIES FEVER OR DYSURIA. DENIES DIARRHEA. Complaints Chief Complaint Doctors Comments: ABDOMINAL PAIN, NAUSEA AND VOMITING TIMES SEVERAL HOURS. Chief Complaint:: PT C/O N/V AND HAVING ABD PAIN,,BR Self Treatment fo Chief Complaint: PT HAVING 100 ML OF CLEAR U/A NOTED ,BR PT IS VERY DIAPHORETIC,,BR Reviewed Nurses Notes Reviewed: Yes Source History Provided: Patient Mode of Arrival Mode of Arrival: Ambulatory Timing Onset of Chief Complaint: 12/03/18 Context Onset: Spontaneous Recent: None History of: Diabetes Quality Quality: Food Particles Associated Signs and Symptoms Abdominal Pain Quality: Burning, Cramping and Sharp Abdominal Pain Location: Diffuse Symptoms: Abdominal Pain Other History Other History: HISTORY DIABETIC GASTROPARESIS. PMH PMH Past Medical History: Yes Past Medical History: Anemia, Coronary Artery Disease, Diabetes, Dyslipidemia, Hypertension and PUD Past Surgical History: Yes Surgical History: Cholecystectomy, Ortho Surgery and Other Family History History of Family Medical Conditions: Yes Family Medical History: Diabetes Mellitus and Coronary Artery Disease Social History Does patient currently use any type of tobacco product: No Have you used tobacco products in the last 12 months: No Type of Tobacco Use: None Does any household member use tobacco: No Do you use any recreational Drugs:: No Lives With: Family Lives Where: Home infectious screening In the last 2 months have you had wt loss of >10#?: NO Have you had fever, night sweats or hemotysis?: No Have you traveled outside the country in the last 6 months?: No Isolation: Standard ROS Review of Systems Constitutional: See HPI, Diaphoresis, Weakness, Fatigue and Loss of Appetite; negative Chills and Fever Eyes: No Symptoms Reported and See HPI; negative Blurred Vision, Photophobia and Diplopia ENTM: No Symptoms Reported and See HPI; negative Ear Pain, Nose Discharge, Nose Congestion and Throat Pain Respiratoy: No Symptoms Reported and See HPI; negative Productive Cough, Short of Breath and Wheezing Cardiovascular: No Symptoms Reported and See HPI; negative Chest Pain, Edema and Syncope Gastrointestinal/Abdominal: See HPI, Abdominal Pain, Nausea and Vomiting Genitourinary: See HPI and Other (DECREASE URINE OUTPUT); negative Dysuria, Frequency and Hematuria Neurological: See HPI, Headache, Weakness and Dizziness Musculoskeletal: See HPI, Back Pain and Muscle Pain Integumentary: See HPI, Dryness and Other (DIAPHORESIS); negative Rash, Itching, Bruises and Juandice Hematologic/Lymphatic: No Symptoms Reported and See HPI; negative Easy Bleeding, Easy Bruising, Swollen Glands and Lymphadenopathy Endocrine: See HPI, Flushing, Increased Thirst and Decreased Appetite; negative Increased Urine Psychiatric: No Symptoms Reported and See HPI All Other Systems: Reviewed and Negative PE Vital Signs Vitals: Temperature 97.8 F Pulse Rate [Left Radial] 106 Pulse Rate 107 Respiratory Rate 17 Blood Pressure [Right Arm] 175/93 Blood Pressure [Left Arm] 123/72 Blood Pressure [Left Radial 160/102 Artery] Blood Pressure 198/100 O2 Sat by Pulse Oximetry 99 General Limitations: No Limitations General Appearance: Alert and In No Apparent Distress Head Head Exam: Normal Inspection, Atraumatic and Normocephalic Eyes Eye exam: Normal Appearance, PERRL and EOMI; negative Scleral Icterus and Conjunctival Injection ENT ENT Exam: Normal Exam, Normal Oropharynx, Normal External Ear Exam and TM's Normal Bilaterally Neck Neck Exam: Normal Inspection and Trachea Midline; negative Tenderness and Lymphadenopathy Chest Chest Inspection: Normal Inspection and Symmetric Chest Wall Rise; negative Tenderness Respiratory Respiratory Exam: Normal Lung Sounds Bilat; negative Accessory Muscle Use, Chest Wall Tenderness and Respiratory Distress Respiratory Exam: Bilateral: Rhonchi and Lower: Rhonchi Cardiovascular Cardiovascular Exam: Regular Rate, Normal Rhythm and Normal Heart Sounds; negative Systolic Murmur and Diastolic Murmur Abdominal Exam Abdominal Exam: Normal Bowel Sounds, Soft and Tenderness; negative Organomegaly and Mass Abdominal Tenderness: Diffuse and Moderate Rectal Rectal Exam: Deferred Exam: Male: Deferred Extremities Extremities Exam: Normal Inspection and Normal Capillary Refill; negative Tenderness, Edema and Calf Tenderness Back Back Exam: Normal Inspection; negative Tenderness, (R) CVA Tenderness, (L) CVA Tenderness, Paraspinal Tenderness and Vertebral Tenderness Neurologic Neurological Exam: Alert and Oriented X3; negative Motor Sensory Deficit Psychiatric Psychiatric Exam: Normal Affect and Normal Mood Skin Skin Exam: Warm, Dry, Intact and Normal Color MDM Differential Diagnosis Differential Diagnosis: Considerations may Include:: Bowel Obstruction, Diabetes/DKA, Gastritis, Gastroenteritis, Pancreatitis, PUD, Urinary Tract Infection and Urolithiasis COURSE Treatment Treatment: SEE ORDERS. Education/Counseling Education/Counseling: Patient Educated On: Diagnosis ROR Labs Reviewed Laboratory Results Reviewed?: Yes Result Diagrams: 12/05/18 04:51 12/05/18 04:51 Laboratory: WBC 9.4 X10^3/uL (3.6-10.0) 12/05/18 04:51 RBC 4.30 X10^6/uL (4.7-6.0) L 12/05/18 04:51 Hgb 10.4 g/dL (13.5-18.0) L 12/05/18 04:51 Hct 32.6 % (42.0-54.0) L 12/05/18 04:51 MCV 75.9 fL (80.0-100.0) L 12/05/18 04:51 MCH 24.2 pg (27.0-34.0) L 12/05/18 04:51 MCHC 31.9 g/dL (33.0-35.0) L 12/05/18 04:51 RDW 17.8 % (11.6-16.5) H 12/05/18 04:51 Plt Count 255 X10^3/uL (150.0-450.0) 12/05/18 04:51 Plt Count Comment Adequate (ADEQUATE) 12/05/18 04:51 MPV 8.9 fL (7.4-11.0) 12/05/18 04:51 Neut % (Auto) 83.4 % (42.0-75.0) H 12/05/18 04:51 Lymph % (Auto) 10.2 % (21.0-51.0) L 12/05/18 04:51 [place] % (Auto) 6.2 % (0.0-13.0) 12/05/18 04:51 Eos % (Auto) 0.0 % (0.9-2.9) L 12/05/18 04:51 Baso % (Auto) 0.2 % (0.2-1.0) 12/05/18 04:51 Neut # (Auto) 7.9 x10^3/uL (2.2-4.8) H 12/05/18 04:51 Lymph # (Auto) 1.0 X10^3/uL (1.3-2.9) L 12/05/18 04:51 [place] # (Auto) 0.6 x10^3/uL (0.3-0.8) 12/05/18 04:51 Eos # (Auto) 0.0 x10^3/uL (0.0-0.2) 12/05/18 04:51 Baso # (Auto) 0.0 X10^3/uL (0.0-0.1) 12/05/18 04:51 Absolute Nucleated RBC 0.0 /100WBC 12/05/18 04:51 Total Counted 100 12/04/18 04:34 Neutrophils % (Manual) 90 % (39-76) H 12/04/18 04:34 Lymphocytes % (Manual) 9 % (13-43) L 12/04/18 04:34 Monocytes % (Manual) 1 % (4-9) L 12/04/18 04:34 Plt Morphology Comment Normal (NORMAL) 12/05/18 04:51 RBC Morphology Abnormal (NORMAL) 12/05/18 04:51 Hypochromasia Slight A 12/05/18 04:51 Poikilocytosis Slight A 12/03/18 16:22 Anisocytosis Slight A 12/03/18 16:22 Sodium 147 mmol/L (136-145) H 12/05/18 04:51 Corrected Sodium 149 mmol/L (136-145) H 12/05/18 04:51 Potassium 4.2 mmol/L (3.5-5.1) 12/05/18 04:51 Chloride 113 mmol/L (98-107) H 12/05/18 04:51 Carbon Dioxide 24.7 mmol/L (21-32) 12/05/18 04:51 BUN 19 mg/dL (7-18) H 12/05/18 04:51 Creatinine 1.07 mg/dL (0.70-1.30) 12/05/18 04:51 Est GFR (MDRD) Af Amer > 60 (>60) 12/05/18 04:51 Est GFR (MDRD) Non-Af > 60 (>60) 12/05/18 04:51 Glucose 200 mg/dL (65-99) H 12/05/18 04:51 POC Glucose (mg/dL) 193 mg/dL (65-99) H 12/05/18 11:17 Calcium 8.3 mg/dL (8.5-10.1) L 12/05/18 04:51 Corrected Calcium 8.9 mg/dL (8.5-10.1) 12/05/18 04:51 Total Bilirubin 0.40 mg/dL (0.2-1.0) 12/05/18 04:51 AST 12 Units/L (15-37) L 12/05/18 04:51 ALT 17 Units/L (12-78) 12/05/18 04:51 Alkaline Phosphatase 116 Units/L (46-116) 12/05/18 04:51 Total Protein 7.4 g/dL (6.4-8.2) 12/05/18 04:51 Albumin 3.2 g/dL (3.4-5.0) L 12/05/18 04:51 Globulin 4.2 g/dL (2.5-4.5) 12/05/18 04:51 Albumin/Globulin Ratio 0.8 Ratio (1.1-2.1) L 12/05/18 04:51 Amylase 61 Units/L (25-115) 12/03/18 16:22 Lipase 92 Units/L (73-393) 12/03/18 16:22 Specimen Type Random urine 12/03/18 17:38 Urine Color Yellow (YELLOW) 12/03/18 17:38 Urine Appearance Clear (CLEAR) 12/03/18 17:38 Urine pH 5.0 (5.0 - 8.0) 12/03/18 17:38 Ur Specific [place] 1.010 (1.000-1.030) 12/03/18 17:38 Urine Protein 2+ (NEGATIVE) 12/03/18 17:38 Urine Glucose (UA) 4+ (NEGATIVE) 12/03/18 17:38 Urine Ketones 2+ (NEGATIVE) 12/03/18 17:38 Urine Occult Blood 2+ (NEGATIVE) 12/03/18 17:38 Urine Nitrite Negative (NEGATIVE) 12/03/18 17:38 Urine Bilirubin Negative (NEGATIVE) 12/03/18 17:38 Urine Urobilinogen Normal (NORMAL) 12/03/18 17:38 Ur Leukocyte Esterase Negative (NEGATIVE) 12/03/18 17:38 Urine RBC 3-5 /HPF (NONE SEEN) 12/03/18 17:38 Urine WBC None seen /HPF (NONE SEEN) 12/03/18 17:38 Ur Squamous Epith Cells Negative /HPF (NEGATIVE) 12/03/18 17:38 Urine Bacteria Negative /HPF (NEGATIVE) 12/03/18 17:38 Ur Culture Indicated? No/not indicated 12/03/18 17:38 Urine Total Volume Cancelled 12/04/18 04:34 Urine Total Protein Cancelled 12/04/18 04:34 Urine Albumin (PEP) Cancelled 12/04/18 04:34 U [id number] Cancelled 12/04/18 04:34 U Fzyim-[id number] Cancelled 12/04/18 04:34 U Beta Globulin Cancelled 12/04/18 04:34 U Gamma Globulin Cancelled 12/04/18 04:34 U Free [place] Light Ch Cancelled 12/04/18 04:34 U Free Mellette Excretion Cancelled 12/04/18 04:34 U Free Lambda Light Ch Cancelled 12/04/18 04:34 Free Lambda Excret 24 Cancelled 12/04/18 04:34 U Free [place]/Lambda 24 Cancelled 12/04/18 04:34 Acetone, Semi-Quant Negative (NEGATIVE) 12/05/18 04:51 IZABEL & SPEP Interp Cancelled 12/04/18 04:34 XRAY XRAY Interpreted by: Radiologist XRAY Findings: REPORT NOTED AND DISCUSS WITH PATIENT. Opioid Opioid Risk Tool Age (Paddy box if 16-45): Yes Total: 1 Total Score Risk Category: Low Risk Copyright: Steven STEPHEN predicting aberrant behaviors Diagnosis Discharge Problem: Diabetic gastroparesis Nausea and vomiting Qualifiers: Vomiting type: bilious vomiting Qualified Code(s): R11.14 - Bilious vomiting Abdominal pain Qualifiers: Abdominal location: generalized Qualified Code(s): R10.84 - Generalized a bdominal pain
[2018-12-03] MEDS ORDERED: DEMEROL INJ ONE (16:12)
[2018-12-03] MEDS ORDERED: ZOFRAN INJ 4 MG VIAL ONE ×2 (16:12→17:20)
[2018-12-03] MEDS ORDERED: NS 1000 ML 1,000 ML ONE (16:12)
[2018-12-03] MEDS ORDERED: PHENERGAN INJ 25 MG IM ONE ×2 (16:15→16:48)
[2018-12-03 16:42] LABS: BASOPHILS % (AUTO) 0.2 % (0.2-1.0); HEMATOCRIT 34.2 % (42.0-54.0); HEMOGLOBIN 10.9 g/dL (13.5-18.0); LYMPHOCYTES # (AUTO) 1.2 X10^3/uL (1.3-2.9); LYMPHOCYTES % (AUTO) 14.7 % (21.0-51.0); MEAN CORPUSCULAR VOLUME 75.2 fL (80.0-100.0); MEAN PLATELET VOLUME 8.7 fL (7.4-11.0); MONOCYTES # (AUTO) 0.3 x10^3/uL (0.3-0.8); MONOCYTES % (AUTO) 3.8 % (0.0-13.0); NEUTROPHILS # (AUTO) 6.7 x10^3/uL (2.2-4.8); NEUTROPHILS % (AUTO) 81.3 % (42.0-75.0); PLATELET COUNT 270 X10^3/uL (150.0-450.0); RED BLOOD COUNT 4.54 X10^6/uL (4.7-6.0); RED CELL DISTRIBUTION WIDTH 17.1 % (11.6-16.5); WHITE BLOOD COUNT 8.2 X10^3/uL (3.6-10.0)
--- NOTE | 2018-12-03 16:45 | RAD ---
HISTORY: Abdominal pain with nausea vomiting Study: Acute abdominal series Technique: A single view of the chest and two views of the abdomen are submitted for interpretation. Comparison: November 03, 2018 Findings: The patient is slightly rotated. The cardiac silhouette is unremarkable. The lungs are clear without focal infiltrate or effusion.. A left-sided port is again noted. Flat plate and upright evaluation of the abdomen demonstrates a nonspecific bowel gas pattern. Surgical clips project over the right upper quadrant of the abdomen. IMPRESSION: 1. No acute cardiopulmonary disease. 2. Nonspecific bowel gas pattern. Reported By:
[2018-12-03 16:53] LABS: ALANINE AMINOTRANSFERASE 18 Units/L (12-78); ALBUMIN 4.1 g/dL (3.4-5.0); ALKALINE PHOSPHATASE 155 Units/L (46-116); AMYLASE 61 Units/L (25-115); ASPARTATE AMINO TRANSFERASE 14 Units/L (15-37); BLOOD UREA NITROGEN 23 mg/dL (7-18); CALCIUM 10.2 mg/dL (8.5-10.1); CARBON DIOXIDE 24.5 mmol/L (21-32); CHLORIDE 100 mmol/L (98-107); COR NA(FOR HYPERGLY) 147 mmol/L (136-145); CREATININE 1.47 mg/dL (0.70-1.30); LIPASE 92 Units/L (73-393); SODIUM 139 mmol/L (136-145); TOTAL PROTEIN 9.1 g/dL (6.4-8.2); eGFR NON BLACK RACES 55 (>60)
[2018-12-03] MEDS: APRESOLINE INJ 20 MG VIAL IVP PRN ×2 (16:58→17:39)
[2018-12-03 17:03] LABS: PLATELET MORPHOLOGY COMMENT NORMAL (NORMAL)
[2018-12-03 17:04] LABS: ANISOCYTOSIS SLIGHT; POIKILOCYTOSIS SLIGHT
[2018-12-03] MEDS ORDERED: PEPCID 20 MG IV PREMIX* 20 MG/50 ML BAG IV PRN (17:23)
[2018-12-03] MEDS: NS 1000 ML 1,000 ML IV SCH ×2 (17:27→20:43)
[2018-12-03 17:44] LABS: APPEARANCE,URINE CLEAR (CLEAR); BILIRUBIN,URINE NEGATIVE (NEGATIVE); BLOOD/HEMOGLOBIN,URINE 2+ (NEGATIVE); COLOR,URINE YELLOW (YELLOW); GLUCOSE, URINE 4+ (NEGATIVE); KETONES,URINE 2+ (NEGATIVE); LEUKOCYTE ESTERASE ,URINE NEGATIVE (NEGATIVE); NITRITES,URINE NEGATIVE (NEGATIVE); PROTEIN,URINE 2+ (NEGATIVE); UROBILINOGEN,URINE NORMAL (NORMAL)
[2018-12-03 17:49] LABS: BACTERIA,URINE NEGATIVE /HPF (NEGATIVE); SQUAMOUS EPITHELIAL CELL,UR NEGATIVE /HPF (NEGATIVE)
[2018-12-03] MEDS ORDERED: NS 1000 ML 1,000 ML IV SCH (18:00)
[2018-12-03] MEDS ORDERED: CATAPRES-TTS-3 TD SCH (18:00)
[2018-12-03] MEDS: DEMEROL INJ IVP PRN ×2 (18:11→22:23)
[2018-12-03] MEDS ORDERED: SNACK - Diabetic Appropriate PO SCH (20:00)
[2018-12-03] MEDS: ZOFRAN INJ 4 MG VIAL IVP PRN (20:35)
[2018-12-03] MEDS: CHECK PATCH XX SCH (20:41)
[2018-12-03] MEDS: RESTORIL CAP 30 MG PO SCH (22:19)
[2018-12-03] MEDS: NEURONTIN CAP 300 MG PO SCH (22:19)
[2018-12-03] MEDS: PROTONIX TAB 40 MG PO SCH (22:19)
[2018-12-03] MEDS: HumuLIN R SUBCUT PRN (22:20)
[2018-12-04] MEDS: DEMEROL INJ IVP PRN ×6 (02:09→22:53)
[2018-12-04] MEDS: ZOFRAN INJ 4 MG VIAL IVP PRN ×2 (02:11→18:39)
[2018-12-04] MEDS: NS 1000 ML 1,000 ML IV SCH ×5 (04:40→22:00)
[2018-12-04] MEDS: APRESOLINE INJ 20 MG VIAL IVP PRN (05:01)
[2018-12-04 05:32] LABS: BASOPHILS % (AUTO) 0.1 % (0.2-1.0); HEMATOCRIT 35.3 % (42.0-54.0); HEMOGLOBIN 11.4 g/dL (13.5-18.0); LYMPHOCYTES # (AUTO) 0.7 X10^3/uL (1.3-2.9); LYMPHOCYTES % (AUTO) 7.1 % (21.0-51.0); MEAN CORPUSCULAR HEMOGLOBIN 24.4 pg (27.0-34.0); MEAN CORPUSCULAR HGB CONC 32.4 g/dL (33.0-35.0); MEAN CORPUSCULAR VOLUME 75.3 fL (80.0-100.0); MEAN PLATELET VOLUME 9.1 fL (7.4-11.0); MONOCYTES # (AUTO) 0.2 x10^3/uL (0.3-0.8); MONOCYTES % (AUTO) 1.9 % (0.0-13.0); NEUTROPHILS # (AUTO) 8.9 x10^3/uL (2.2-4.8); NEUTROPHILS % (AUTO) 90.9 % (42.0-75.0); PLATELET COUNT 267 X10^3/uL (150.0-450.0); RED BLOOD COUNT 4.69 X10^6/uL (4.7-6.0); RED CELL DISTRIBUTION WIDTH 17.1 % (11.6-16.5); WHITE BLOOD COUNT 9.8 X10^3/uL (3.6-10.0)
[2018-12-04 05:47] LABS: ALANINE AMINOTRANSFERASE 17 Units/L (12-78); ALBUMIN 3.9 g/dL (3.4-5.0); ALKALINE PHOSPHATASE 155 Units/L (46-116); ASPARTATE AMINO TRANSFERASE 13 Units/L (15-37); BLOOD UREA NITROGEN 19 mg/dL (7-18); CALCIUM 9.4 mg/dL (8.5-10.1); CARBON DIOXIDE 22.3 mmol/L (21-32); CHLORIDE 104 mmol/L (98-107); COR NA(FOR HYPERGLY) 148 mmol/L (136-145); CREATININE 1.15 mg/dL (0.70-1.30); SODIUM 142 mmol/L (136-145); TOTAL PROTEIN 9.1 g/dL (6.4-8.2); eGFR NON BLACK RACES > 60 (>60)
[2018-12-04] MEDS: NEURONTIN CAP 300 MG PO SCH ×3 (06:10→21:59)
[2018-12-04] MEDS: HumuLIN R SUBCUT PRN ×3 (06:11→17:38)
[2018-12-04 06:27] LABS: PLATELET MORPHOLOGY COMMENT NORMAL (NORMAL)
[2018-12-04] MEDS: COZAAR PO SCH (08:22)
[2018-12-04] MEDS: PROTONIX TAB 40 MG PO SCH ×2 (08:22→21:59)
[2018-12-04] MEDS: K-DUR TAB 20 MEQ PO SCH (08:22)
[2018-12-04] MEDS: NORVASC TAB 5 MG PO SCH (08:22)
[2018-12-04] MEDS: GLUCOTROL PO SCH (08:22)
[2018-12-04] MEDS: CHECK PATCH XX SCH ×2 (08:22→22:00)
[2018-12-04] MEDS: SNACK - Diabetic Appropriate PO SCH (21:12)
--- NOTE | 2018-12-04 21:41 | DR.H&P ---
H&P - History & Physical for Day of: H&P Date: 12/03/18 - Chief Complaint Chief Complaint: NAUSEA, VOMITING, ABDOMINAL PAIN - History of Present Illness History of Present Illness: IS A 47 YEAR OLD PATIENT OF OURS WHO PRESENTED TO THE ER WITH COMPLAINTS OF NAUSEA, VOMITING, AND ABDOMINAL PAIN THAT STARTED YESTERDAY. HE HAS A HISTORY OF DIABETIC GASTROPARESIS. HE IS GENERALLY NON-COMPLIANT WITH A DIABETIC DIET. ON ARRIVAL, VITALS WERE 96.0-107-20-99%-195/97. LABS WERE OBTAINED. ABNORMAL LAB VALUES INCLUDE THE FOLLOWING: RBC 4.54, HGB 10.9, HCT 34.2, BUN 23, CREATININE 1.47, GLUCOSE 451, CALCIUM 10.2, AST 14, ALK PHOS 155, TOTAL PROTEIN 9.1, GLOBULIN 5.0. ACETONES NEGATIVE. AN ABDOMINAL XRAY WAS OBTAINED AND REVEALED: NO ACUTE CARDOPULMONARY DISEASE. NONSPECIFIC BOWEL GAS PATTERN. HE WAS GIVEN ZOFRAN 4MG IV X 1 DOSE, DEMEROL 50MG IV X 1 DOSE, PHENERGAN 25MG IM X 1 DOSE, AND A NORMAL SALINE BOLUS. ONLY SLIGHT IMPROVEMENT IN SYMPTOMS NOTED. HE WAS ADMITTED FOR FURTHER EVALUATION AND TREATMENT OF INTRACTABLE NAUSEA AND VOMITING, ABDOMINAL PAIN, AND DIABETIC GASTROPARESIS. HE WAS STARTED ON NORMAL SALINE AT 125ML/HR, ZOFRAN 4MG IV Q6H PRN NAUSEA, DEMEROL 50MG IV Q4H PRN, PEPCID 20MG IV BID, HUMULIN R SLIDING SCALE, AND HOME MEDICATIONS WERE RESUMED. WE PLAN TO FOLLOW-UP WITH AM LABS AND CONTINUE TO MONITOR. - Past Medical History Past Medical History: Coronary Artery Disease, Hypertension, Dyslipidemia, Diabetes, Anemia, PUD Additional Medical History: Diabetic Neuropathy, Diabetic Gastroparesis, Hiatal Hernia, Gastric Ulcer, Gall Bladder Disease, Back Pain - Past Surgical History Surgical History: Cholecystectomy, Ortho Surgery, Other Additional Surgical History: Right foot I&D - Family History Family Medical History: Diabetes Mellitus, Coronary Artery Disease - Social History Does patient currently use any type of tobacco product: No Have you used tobacco products in the last 12 months: No Type of Tobacco Use: None Does any household member use tobacco: No Alcohol Use: None Drug Use: None Prescription drug monitoring program results: PDMP reviewed and no concerns identified - Medications Home Medications: codeine Allergy (Verified 12/03/18 15:51) morphine Allergy (Verified 12/03/18 15:51) CONTINUE taking the following medications insulin lispro [Humalog U-100 Insulin] 20 unit SUBCUT AC 12/03/18 [History] - Review of Systems Constitutional: Weakness Eyes: No Symptoms Reported ENT: No Symptoms Reported Respiratory: No Symptoms Reported Cardiovascular: No Symptoms Reported Gastrointestinal: See HPI, Nausea, Vomiting, Abdominal Pain Genitourinary: No Symptoms Reported Musculoskeletal: No Symptoms Reported Skin: No Symptoms Reported Neurological: Weakness - Physical Exam Vital Signs: Temperature 97.9 F Pulse Rate [Left Radial] 100 Pulse Rate 107 Respiratory Rate 20 Blood Pressure [Right Arm] 111/60 Blood Pressure [Left Arm] 123/72 Blood Pressure [Left Radial 160/102 Artery] Blood Pressure 198/100 O2 Sat by Pulse Oximetry 99 Oriented: Normal Eyes: Normal Ear: Normal Nose: Normal Throat: Normal Respiratory: Diminished Throughout Cardiovascular: Tachycardia. negative: S3, S4, Murmur : Normal Auscultation: Bowel Sounds: Increased Palpation: Normal Tenderness: Diffuse, Moderate. negative: Rebound, Guarding, Rigidity Skin: Normal Musculoskeletal: Normal Psychiatric: Normal Mood Description: Calm Affect: Normal Speech Pattern: Clear - Assessment/Plan (1) Diabetic gastroparesis Status: Acute Plan: ADMIT, NORMAL SALINE AT 125ML/HR, ZOFRAN, DEMEROL, PEPCID, PROTONIX, CONTINUE HOME MEDS (2) Intractable vomiting with nausea Qualifiers: Vomiting type: unspecified Qualified Code(s): R11.2 - Nausea with vomiting, unspecified Status: Acute - Allergies Allergies/Adverse Reactions: Allergies Allergy/AdvReac Type Severity Reaction Status Date / Time codeine Allergy Verified 12/03/18 15:51 morphine Allergy Verified 12/03/18 15:51
[2018-12-04] MEDS: RESTORIL CAP 30 MG PO SCH (21:59)
[2018-12-05] MEDS: NS 1000 ML 1,000 ML IV SCH ×3 (00:21→10:46)
[2018-12-05] MEDS: DEMEROL INJ IVP PRN ×4 (03:55→23:17)
[2018-12-05 05:28] LABS: BASOPHILS % (AUTO) 0.2 % (0.2-1.0); HEMATOCRIT 32.6 % (42.0-54.0); HEMOGLOBIN 10.4 g/dL (13.5-18.0); LYMPHOCYTES % (AUTO) 10.2 % (21.0-51.0); MEAN CORPUSCULAR HEMOGLOBIN 24.2 pg (27.0-34.0); MEAN CORPUSCULAR HGB CONC 31.9 g/dL (33.0-35.0); MEAN CORPUSCULAR VOLUME 75.9 fL (80.0-100.0); MEAN PLATELET VOLUME 8.9 fL (7.4-11.0); MONOCYTES # (AUTO) 0.6 x10^3/uL (0.3-0.8); MONOCYTES % (AUTO) 6.2 % (0.0-13.0); NEUTROPHILS # (AUTO) 7.9 x10^3/uL (2.2-4.8); NEUTROPHILS % (AUTO) 83.4 % (42.0-75.0); PLATELET COUNT 255 X10^3/uL (150.0-450.0); RED CELL DISTRIBUTION WIDTH 17.8 % (11.6-16.5); WHITE BLOOD COUNT 9.4 X10^3/uL (3.6-10.0)
[2018-12-05 05:38] LABS: SERUM ACETONE NEGATIVE (NEGATIVE)
[2018-12-05 05:44] LABS: ALANINE AMINOTRANSFERASE 17 Units/L (12-78); ALBUMIN 3.2 g/dL (3.4-5.0); ALKALINE PHOSPHATASE 116 Units/L (46-116); ASPARTATE AMINO TRANSFERASE 12 Units/L (15-37); BLOOD UREA NITROGEN 19 mg/dL (7-18); CALCIUM 8.3 mg/dL (8.5-10.1); CARBON DIOXIDE 24.7 mmol/L (21-32); CHLORIDE 113 mmol/L (98-107); COR CA(FOR HYPOALB) 8.9 mg/dL (8.5-10.1); COR NA(FOR HYPERGLY) 149 mmol/L (136-145); CREATININE 1.07 mg/dL (0.70-1.30); SODIUM 147 mmol/L (136-145); TOTAL PROTEIN 7.4 g/dL (6.4-8.2); eGFR NON BLACK RACES > 60 (>60)
[2018-12-05] MEDS: NEURONTIN CAP 300 MG PO SCH ×3 (05:44→21:45)
[2018-12-05] MEDS: HumuLIN R SUBCUT PRN ×3 (05:58→20:55)
[2018-12-05 06:21] LABS: HYPOCHROMASIA SLIGHT; PLATELET MORPHOLOGY COMMENT NORMAL (NORMAL)
[2018-12-05] MEDS: GLUCOTROL PO SCH (08:15)
[2018-12-05] MEDS: PROTONIX TAB 40 MG PO SCH ×2 (08:15→20:58)
[2018-12-05] MEDS: NORVASC TAB 5 MG PO SCH (08:16)
[2018-12-05] MEDS: K-DUR TAB 20 MEQ PO SCH (08:16)
[2018-12-05] MEDS: ZOFRAN INJ 4 MG VIAL IVP PRN ×3 (08:16→22:55)
[2018-12-05] MEDS: COZAAR PO SCH (08:16)
[2018-12-05] MEDS: CHECK PATCH XX SCH ×2 (08:17→22:42)
[2018-12-05] MEDS ORDERED: NS 1/2 1000 ML IV 1,000 ML ONE ×2 (10:47→16:57)
[2018-12-05] MEDS: LEVSIN/MAALOX/LIDOC VISC PO SCH ×4 (10:50→20:58)
[2018-12-05] MEDS: NS 1/2 1000 ML IV 1,000 ML IV SCH ×2 (10:50→18:01)
--- NOTE | 2018-12-05 11:30 | RAD ---
Examination: KUB History: Abdominal pain Comparison 12/03/2018 Findings: Intestinal gas pattern is nonobstructive. There is minimal gaseous distention of scattered segments of small bowel and colon. No definite ascites, mass or pathologic calcification. Impression: No acute or significant findings. Reported By:
[2018-12-05] MEDS: SNACK - Diabetic Appropriate PO SCH (20:54)
[2018-12-05] MEDS: RESTORIL CAP 30 MG PO SCH (20:58)
[2018-12-06] MEDS ORDERED: NS 1/2 1000 ML IV 1,000 ML ONE ×3 (04:10→16:24)
[2018-12-06] MEDS: NS 1/2 1000 ML IV 1,000 ML IV SCH ×5 (04:16→19:22)
[2018-12-06 05:25] LABS: BASOPHILS % (AUTO) 0.4 % (0.2-1.0); EOSINOPHILS % (AUTO) 0.1 % (0.9-2.9); HEMATOCRIT 29.7 % (42.0-54.0); HEMOGLOBIN 9.8 g/dL (13.5-18.0); LYMPHOCYTES # (AUTO) 1.6 X10^3/uL (1.3-2.9); LYMPHOCYTES % (AUTO) 22.2 % (21.0-51.0); MEAN CORPUSCULAR HEMOGLOBIN 24.7 pg (27.0-34.0); MEAN CORPUSCULAR HGB CONC 32.9 g/dL (33.0-35.0); MEAN PLATELET VOLUME 8.7 fL (7.4-11.0); MONOCYTES # (AUTO) 0.4 x10^3/uL (0.3-0.8); MONOCYTES % (AUTO) 5.9 % (0.0-13.0); NEUTROPHILS # (AUTO) 5.2 x10^3/uL (2.2-4.8); NEUTROPHILS % (AUTO) 71.4 % (42.0-75.0); PLATELET COUNT 225 X10^3/uL (150.0-450.0); RED BLOOD COUNT 3.95 X10^6/uL (4.7-6.0); RED CELL DISTRIBUTION WIDTH 17.3 % (11.6-16.5); WHITE BLOOD COUNT 7.3 X10^3/uL (3.6-10.0)
[2018-12-06 05:28] LABS: SERUM ACETONE NEGATIVE (NEGATIVE)
[2018-12-06 05:31] LABS: ALANINE AMINOTRANSFERASE 15 Units/L (12-78); ALBUMIN 2.9 g/dL (3.4-5.0); ALKALINE PHOSPHATASE 106 Units/L (46-116); ASPARTATE AMINO TRANSFERASE 13 Units/L (15-37); BLOOD UREA NITROGEN 14 mg/dL (7-18); CALCIUM 7.9 mg/dL (8.5-10.1); CHLORIDE 105 mmol/L (98-107); COR CA(FOR HYPOALB) 8.8 mg/dL (8.5-10.1); COR NA(FOR HYPERGLY) 140 mmol/L (136-145); CREATININE 1.04 mg/dL (0.70-1.30); SODIUM 138 mmol/L (136-145); TOTAL PROTEIN 6.8 g/dL (6.4-8.2); eGFR NON BLACK RACES > 60 (>60)
[2018-12-06] MEDS: HumuLIN R SUBCUT PRN ×3 (06:14→21:06)
[2018-12-06] MEDS: NEURONTIN CAP 300 MG PO SCH ×3 (06:16→21:02)
[2018-12-06] MEDS: ZOFRAN INJ 4 MG VIAL IVP PRN (06:34)
[2018-12-06] MEDS: DEMEROL INJ IVP PRN ×2 (06:39→21:17)
[2018-12-06] MEDS: GLUCOTROL PO SCH (08:35)
[2018-12-06] MEDS: LEVSIN/MAALOX/LIDOC VISC PO SCH ×4 (08:36→21:01)
[2018-12-06] MEDS: MILK OF MAGNESIA PO SCH ×3 (08:36→21:05)
[2018-12-06] MEDS: COZAAR PO SCH (08:37)
[2018-12-06] MEDS: K-DUR TAB 20 MEQ PO SCH ×2 (08:37→21:02)
[2018-12-06] MEDS: NORVASC TAB 5 MG PO SCH (08:37)
[2018-12-06] MEDS: COLACE CAP 100 MG PO SCH ×2 (08:37→21:04)
[2018-12-06] MEDS: PROTONIX TAB 40 MG PO SCH ×2 (08:37→21:02)
[2018-12-06] MEDS: CHECK PATCH XX SCH ×2 (08:38→21:03)
--- NOTE | 2018-12-06 17:20 | PCM.PROG ---
Progress Note - Progress Note for Day of Date of Exam: 12/04/18 - Subjective Subjective: WAS ADMITTED FOR INTRACTABLE NAUSEA OR VOMITING AND ABDOMINAL PAIN. HE HAS A HISTORY OF DIABETIC GASTROPARESIS AND IS GENERALLY NON- COMPLIANT WITH HIS DIET. HE CONTINUES WITH NAUSEA AND VOMITING TODAY. ON EXAMINATION, HEART IS REGULAR IN RATE AND RHYTHM. BILATERAL LUNGS ARE CLEAR TO AUSCULTATION. ABDOMEN IS ROUND, SOFT, AND NOTED WITH MILD, DIFFUSE TENDERNESS. HYPERACTIVE BOWEL SOUNDS NOTED. HIS VITALS THIS MORNING ARE 98.0-99-20-98%-178/90. LABS WERE OBTAINED. ABNORMAL LAB VALUES INCLUDE THE FOLLOWING: RBC 4.69, HGB 11.4, HCT 35.3, CORRECTED SODIUM 148, BUN 19, GLUCOSE 356, AST 13, ALK PHOS 155, TOTAL PROTEIN 9.1, GLOBULIN 5.2, ACETONES NEGATIVE. HE IS CURRENTLY RECEIVING NORMAL SALINE AT 125ML/HR, ZOFRAN 4MG IV Q6H PRN NAUSEA, DEMEROL 50MG IV Q4H PRN, AND HUMULIN R SLIDING SCALE. HIS HOME MEDICATIONS WERE RESUMED. WE WILL CONTINUE WITH CURRENT PLAN OF CARE TODAY. OTHE RWISE, WE WILL FOLLOW UP WITH AM LABS AND CONTINUE TO MONITOR. - Past Medical Family Social History Past Med/Fam/Surg Hx: No changes since H&P Allergies: Allergies codeine Allergy (Verified 12/03/18 15:51) morphine Allergy (Verified 12/03/18 15:51) - Review of Systems ROS: No change since H&P - Vital Signs and I&O's Vital Signs: Temperature 98.4 F Pulse Rate [Left Radial] 90 Pulse Rate 107 Respiratory Rate 18 Blood Pressure [Right Arm] 139/80 Blood Pressure [Left Arm] 123/72 Blood Pressure [Left Radial 160/102 Artery] Blood Pressure 198/100 O2 Sat by Pulse Oximetry 98 Intake and Output: Intake & Output 12/04/18 12/05/18 12/06/18 12/07/18 11:59 11:59 11:59 11:59 Intake Total 0 / 0 1220 / 1220 2927 / 2927 1000 / 1000 Output Total 1100 / 1100 1450 / 1450 1000 / 1000 Balance 0 / 0 120 / 120 1477 / 1477 0 / 0 - Physical Exam Oriented: Normal Eyes: Normal Ear: Normal Nose: Normal Throat: Normal Respiratory: Generalized, Diminished Cardiovascular: Tachycardia. negative: S3, S4, Murmur : Normal Auscultation: Bowel Sounds: Increased Palpation: Normal Tenderness: Diffuse, Moderate. negative: Rebound, Guarding, Rigidity Skin: Normal Musculoskeletal: Normal Psychiatric: Normal Mood Description: Calm Affect: Normal Speech Pattern: Clear, Appropriate - Laboratory and Diagnostics Result Diagrams: 12/06/18 04:55 12/06/18 04:55 Labs: Laboratory WBC 7.3 X10^3/uL (3.6-10.0) 12/06/18 04:55 RBC 3.95 X10^6/uL (4.7-6.0) L 12/06/18 04:55 Hgb 9.8 g/dL (13.5-18.0) L 12/06/18 04:55 Hct 29.7 % (42.0-54.0) L 12/06/18 04:55 MCV 75.0 fL (80.0-100.0) L 12/06/18 04:55 MCH 24.7 pg (27.0-34.0) L 12/06/18 04:55 MCHC 32.9 g/dL (33.0-35.0) L 12/06/18 04:55 RDW 17.3 % (11.6-16.5) H 12/06/18 04:55 Plt Count 225 X10^3/uL (150.0-450.0) 12/06/18 04:55 Plt Count Comment Adequate (ADEQUATE) 12/05/18 04:51 MPV 8.7 fL (7.4-11.0) 12/06/18 04:55 Neut % (Auto) 71.4 % (42.0-75.0) 12/06/18 04:55 Lymph % (Auto) 22.2 % (21.0-51.0) 12/06/18 04:55 [place] % (Auto) 5.9 % (0.0-13.0) 12/06/18 04:55 Eos % (Auto) 0.1 % (0.9-2.9) L 12/06/18 04:55 Baso % (Auto) 0.4 % (0.2-1.0) 12/06/18 04:55 Neut # (Auto) 5.2 x10^3/uL (2.2-4.8) H 12/06/18 04:55 Lymph # (Auto) 1.6 X10^3/uL (1.3-2.9) 12/06/18 04:55 [place] # (Auto) 0.4 x10^3/uL (0.3-0.8) 12/06/18 04:55 Eos # (Auto) 0.0 x10^3/uL (0.0-0.2) 12/06/18 04:55 Baso # (Auto) 0.0 X10^3/uL (0.0-0.1) 12/06/18 04:55 Absolute Nucleated RBC 0.0 /100WBC 12/06/18 04:55 Total Counted 100 12/04/18 04:34 Neutrophils % (Manual) 90 % (39-76) H 12/04/18 04:34 Lymphocytes % (Manual) 9 % (13-43) L 12/04/18 04:34 Monocytes % (Manual) 1 % (4-9) L 12/04/18 04:34 Plt Morphology Comment Normal (NORMAL) 12/05/18 04:51 RBC Morphology Abnormal (NORMAL) 12/05/18 04:51 Hypochromasia Slight A 12/05/18 04:51 Poikilocytosis Slight A 12/03/18 16:22 Anisocytosis Slight A 12/03/18 16:22 Sodium 138 mmol/L (136-145) 12/06/18 04:55 Corrected Sodium 140 mmol/L (136-145) 12/06/18 04:55 Potassium 3.3 mmol/L (3.5-5.1) L 12/06/18 04:55 Chloride 105 mmol/L (98-107) 12/06/18 04:55 Carbon Dioxide 26.0 mmol/L (21-32) 12/06/18 04:55 BUN 14 mg/dL (7-18) 12/06/18 04:55 Creatinine 1.04 mg/dL (0.70-1.30) 12/06/18 04:55 Est GFR (MDRD) Af Amer > 60 (>60) 12/06/18 04:55 Est GFR (MDRD) Non-Af > 60 (>60) 12/06/18 04:55 Glucose 184 mg/dL (65-99) H 12/06/18 04:55 POC Glucose (mg/dL) 241 mg/dL (65-99) H 12/06/18 16:16 Calcium 7.9 mg/dL (8.5-10.1) L 12/06/18 04:55 Corrected Calcium 8.8 mg/dL (8.5-10.1) 12/06/18 04:55 Magnesium 1.9 mg/dL (1.7-2.9) 12/06/18 04:55 Total Bilirubin 0.30 mg/dL (0.2-1.0) 12/06/18 04:55 AST 13 Units/L (15-37) L 12/06/18 04:55 ALT 15 Units/L (12-78) 12/06/18 04:55 Alkaline Phosphatase 106 Units/L (46-116) 12/06/18 04:55 Total Protein 6.8 g/dL (6.4-8.2) 12/06/18 04:55 Albumin 2.9 g/dL (3.4-5.0) L 12/06/18 04:55 Globulin 3.9 g/dL (2.5-4.5) 12/06/18 04:55 Albumin/Globulin Ratio 0.7 Ratio (1.1-2.1) L 12/06/18 04:55 Amylase 61 Units/L (25-115) 12/03/18 16:22 Lipase 92 Units/L (73-393) 12/03/18 16:22 Specimen Type Random urine 12/03/18 17:38 Urine Color Yellow (YELLOW) 12/03/18 17:38 Urine Appearance Clear (CLEAR) 12/03/18 17:38 Urine pH 5.0 (5.0 - 8.0) 12/03/18 17:38 Ur Specific [place] 1.010 (1.000-1.030) 12/03/18 17:38 Urine Protein 2+ (NEGATIVE) 12/03/18 17:38 Urine Glucose (UA) 4+ (NEGATIVE) 12/03/18 17:38 Urine Ketones 2+ (NEGATIVE) 12/03/18 17:38 Urine Occult Blood 2+ (NEGATIVE) 12/03/18 17:38 Urine Nitrite Negative (NEGATIVE) 12/03/18 17:38 Urine Bilirubin Negative (NEGATIVE) 12/03/18 17:38 Urine Urobilinogen Normal (NORMAL) 12/03/18 17:38 Ur Leukocyte Esterase Negative (NEGATIVE) 12/03/18 17:38 Urine RBC 3-5 /HPF (NONE SEEN) 12/03/18 17:38 Urine WBC None seen /HPF (NONE SEEN) 12/03/18 17:38 Ur Squamous Epith Cells Negative /HPF (NEGATIVE) 12/03/18 17:38 Urine Bacteria Negative /HPF (NEGATIVE) 12/03/18 17:38 Ur Culture Indicated? No/not indicated 12/03/18 17:38 Urine Total Volume Cancelled 12/04/18 04:34 Urine Total Protein Cancelled 12/04/18 04:34 Urine Albumin (PEP) Cancelled 12/04/18 04:34 U Nbeob-3-Bkkjogir Cancelled 12/04/18 04:34 U Fezbu-5-Vchqixii Cancelled 12/04/18 04:34 U Beta Globulin Cancelled 12/04/18 04:34 U Gamma Globulin Cancelled 12/04/18 04:34 U Free [place] Light Ch Cancelled 12/04/18 04:34 U Free [place] Excretion Cancelled 12/04/18 04:34 U Free Lambda Light Ch Cancelled 12/04/18 04:34 Free Lambda Excret 24 Cancelled 12/04/18 04:34 U Free [place]/Lambda 24 Cancelled 12/04/18 04:34 Acetone, Semi-Quant Negative (NEGATIVE) 12/06/18 04:55 IZABEL & SPEP Interp Cancelled 12/04/18 04:34 - Plan (1) Diabetic gastroparesis Status: Acute Plan: SALINE AT 125ML/HR, ZOFRAN, DEMEROL, PEPCID, PROTONIX, CONTINUE HOME MEDS (2) Intractable vomiting with nausea Status: Acute Qualifiers: Vomiting type: unspecified Qualified Code(s): R11.2 - Nausea with vomiting, unspecified Plan: ZOFRAN IV, CONTINUE GO MONITOR
--- NOTE | 2018-12-06 19:37 | PCM.PROG ---
Progress Note - Progress Note for Day of Date of Exam: 12/05/18 - Subjective Subjective: WAS ADMITTED FOR INTRACTABLE NAUSEA OR VOMITING AND ABDOMINAL PAIN. HE HAS A HISTORY OF DIABETIC GASTROPARESIS. HE CONTINUES WITH NAUSEA AND VOMITING TODAY. HE REPORTS THAT SYMPTOMS APPEAR WORSE TODAY. ON EXAMINATION, HEART IS REGULAR IN RATE AND RHYTHM. BILATERAL LUNGS ARE CLEAR TO AUSCULTATION. ABDOMEN IS ROUND, SOFT, AND NOTED WITH MILD, DIFFUSE TENDERNESS. HYPERACTIVE BOWEL SOUNDS NOTED. HIS VITALS THIS MORNING ARE 97.7-100-18-97%-137/70. LABS WERE OBTAINED. ABNORMAL LAB VALUES INCLUDE THE FOLLOWING: RBC 4.30, HGB 10.4, HCT 32.6, SODIUM 147, BUN 19, GLUCOSE 200, CALCIUM 8.3, AST 12, ALBUMIN 3.2. HE IS CURRENTLY RECEIVING NORMAL SALINE AT 125ML/HR, ZOFRAN 4MG IV Q6H PRN NAUSEA, DEMEROL 50MG IV Q4H PRN, AND HUMULIN R SLIDING SCALE. TODAY, WE WILL START GI COCKTAIL AND WILL OBTAIN A KUB. WE WILL CHANGE FLUIDS TO NS DUE TO HYPERNATREMIA. OTHERWISE, WILL CONTINUE WITH CURRENT PLAN OF CARE TODAY. WE WILL FOLLOW UP WITH AM LABS AND CONTINUE TO MONITOR. - Past Medical Family Social History Past Med/Fam/Surg Hx: No changes since H&P Allergies: Allergies codeine Allergy (Verified 12/03/18 15:51) morphine Allergy (Verified 12/03/18 15:51) - Review of Systems ROS: No change since H&P - Vital Signs and I&O's Vital Signs: Temperature 98.4 F Pulse Rate [Left Radial] 90 Pulse Rate 107 Respiratory Rate 18 Blood Pressure [Right Arm] 139/80 Blood Pressure [Left Arm] 123/72 Blood Pressure [Left Radial 160/102 Artery] Blood Pressure 198/100 O2 Sat by Pulse Oximetry 98 Intake and Output: Intake & Output 12/04/18 12/05/18 12/06/18 12/07/18 11:59 11:59 11:59 11:59 Intake Total 0 / 0 1220 / 1220 2927 / 2927 1000 / 1000 Output Total 1100 / 1100 1450 / 1450 1000 / 1000 Balance 0 / 0 120 / 120 1477 / 1477 0 / 0 - Physical Exam Oriented: Normal Eyes: Normal Ear: Normal Nose: Normal Throat: Normal Respiratory: Generalized, Diminished Cardiovascular: Tachycardia. negative: S3, S4, Murmur : Normal Auscultation: Bowel Sounds: Increased Tenderness: Diffuse, Moderate. negative: Rebound, Guarding, Rigidity Skin: Normal Musculoskeletal: Normal Psychiatric: Normal Mood Description: Calm Affect: Normal Speech Pattern: Clear, Appropriate - Laboratory and Diagnostics Result Diagrams: 12/06/18 04:55 12/06/18 04:55 Labs: Laboratory WBC 7.3 X10^3/uL (3.6-10.0) 12/06/18 04:55 RBC 3.95 X10^6/uL (4.7-6.0) L 12/06/18 04:55 Hgb 9.8 g/dL (13.5-18.0) L 12/06/18 04:55 Hct 29.7 % (42.0-54.0) L 12/06/18 04:55 MCV 75.0 fL (80.0-100.0) L 12/06/18 04:55 MCH 24.7 pg (27.0-34.0) L 12/06/18 04:55 MCHC 32.9 g/dL (33.0-35.0) L 12/06/18 04:55 RDW 17.3 % (11.6-16.5) H 12/06/18 04:55 Plt Count 225 X10^3/uL (150.0-450.0) 12/06/18 04:55 Plt Count Comment Adequate (ADEQUATE) 12/05/18 04:51 MPV 8.7 fL (7.4-11.0) 12/06/18 04:55 Neut % (Auto) 71.4 % (42.0-75.0) 12/06/18 04:55 Lymph % (Auto) 22.2 % (21.0-51.0) 12/06/18 04:55 [place] % (Auto) 5.9 % (0.0-13.0) 12/06/18 04:55 Eos % (Auto) 0.1 % (0.9-2.9) L 12/06/18 04:55 Baso % (Auto) 0.4 % (0.2-1.0) 12/06/18 04:55 Neut # (Auto) 5.2 x10^3/uL (2.2-4.8) H 12/06/18 04:55 Lymph # (Auto) 1.6 X10^3/uL (1.3-2.9) 12/06/18 04:55 [place] # (Auto) 0.4 x10^3/uL (0.3-0.8) 12/06/18 04:55 Eos # (Auto) 0.0 x10^3/uL (0.0-0.2) 12/06/18 04:55 Baso # (Auto) 0.0 X10^3/uL (0.0-0.1) 12/06/18 04:55 Absolute Nucleated RBC 0.0 /100WBC 12/06/18 04:55 Total Counted 100 12/04/18 04:34 Neutrophils % (Manual) 90 % (39-76) H 12/04/18 04:34 Lymphocytes % (Manual) 9 % (13-43) L 12/04/18 04:34 Monocytes % (Manual) 1 % (4-9) L 12/04/18 04:34 Plt Morphology Comment Normal (NORMAL) 12/05/18 04:51 RBC Morphology Abnormal (NORMAL) 12/05/18 04:51 Hypochromasia Slight A 12/05/18 04:51 Poikilocytosis Slight A 12/03/18 16:22 Anisocytosis Slight A 12/03/18 16:22 Sodium 138 mmol/L (136-145) 12/06/18 04:55 Corrected Sodium 140 mmol/L (136-145) 12/06/18 04:55 Potassium 3.3 mmol/L (3.5-5.1) L 12/06/18 04:55 Chloride 105 mmol/L (98-107) 12/06/18 04:55 Carbon Dioxide 26.0 mmol/L (21-32) 12/06/18 04:55 BUN 14 mg/dL (7-18) 12/06/18 04:55 Creatinine 1.04 mg/dL (0.70-1.30) 12/06/18 04:55 Est GFR (MDRD) Af Amer > 60 (>60) 12/06/18 04:55 Est GFR (MDRD) Non-Af > 60 (>60) 12/06/18 04:55 Glucose 184 mg/dL (65-99) H 12/06/18 04:55 POC Glucose (mg/dL) 241 mg/dL (65-99) H 12/06/18 16:16 Calcium 7.9 mg/dL (8.5-10.1) L 12/06/18 04:55 Corrected Calcium 8.8 mg/dL (8.5-10.1) 12/06/18 04:55 Magnesium 1.9 mg/dL (1.7-2.9) 12/06/18 04:55 Total Bilirubin 0.30 mg/dL (0.2-1.0) 12/06/18 04:55 AST 13 Units/L (15-37) L 12/06/18 04:55 ALT 15 Units/L (12-78) 12/06/18 04:55 Alkaline Phosphatase 106 Units/L (46-116) 12/06/18 04:55 Total Protein 6.8 g/dL (6.4-8.2) 12/06/18 04:55 Albumin 2.9 g/dL (3.4-5.0) L 12/06/18 04:55 Globulin 3.9 g/dL (2.5-4.5) 12/06/18 04:55 Albumin/Globulin Ratio 0.7 Ratio (1.1-2.1) L 12/06/18 04:55 Amylase 61 Units/L (25-115) 12/03/18 16:22 Lipase 92 Units/L (73-393) 12/03/18 16:22 Specimen Type Random urine 12/03/18 17:38 Urine Color Yellow (YELLOW) 12/03/18 17:38 Urine Appearance Clear (CLEAR) 12/03/18 17:38 Urine pH 5.0 (5.0 - 8.0) 12/03/18 17:38 Ur Specific [place] 1.010 (1.000-1.030) 12/03/18 17:38 Urine Protein 2+ (NEGATIVE) 12/03/18 17:38 Urine Glucose (UA) 4+ (NEGATIVE) 12/03/18 17:38 Urine Ketones 2+ (NEGATIVE) 12/03/18 17:38 Urine Occult Blood 2+ (NEGATIVE) 12/03/18 17:38 Urine Nitrite Negative (NEGATIVE) 12/03/18 17:38 Urine Bilirubin Negative (NEGATIVE) 12/03/18 17:38 Urine Urobilinogen Normal (NORMAL) 12/03/18 17:38 Ur Leukocyte Esterase Negative (NEGATIVE) 12/03/18 17:38 Urine RBC 3-5 /HPF (NONE SEEN) 12/03/18 17:38 Urine WBC None seen /HPF (NONE SEEN) 12/03/18 17:38 Ur Squamous Epith Cells Negative /HPF (NEGATIVE) 12/03/18 17:38 Urine Bacteria Negative /HPF (NEGATIVE) 12/03/18 17:38 Ur Culture Indicated? No/not indicated 12/03/18 17:38 Urine Total Volume Cancelled 12/04/18 04:34 Urine Total Protein Cancelled 12/04/18 04:34 Urine Albumin (PEP) Cancelled 12/04/18 04:34 U Hywbg-2-Snehlisq Cancelled 12/04/18 04:34 U Rukyd-2-Nstrxgea Cancelled 12/04/18 04:34 U Beta Globulin Cancelled 12/04/18 04:34 U Gamma Globulin Cancelled 12/04/18 04:34 U Free [place] Light Ch Cancelled 12/04/18 04:34 U Free [place] Excretion Cancelled 12/04/18 04:34 U Free Lambda Light Ch Cancelled 12/04/18 04:34 Free Lambda Excret 24 Cancelled 12/04/18 04:34 U Free [place]/Lambda 24 Cancelled 12/04/18 04:34 Acetone, Semi-Quant Negative (NEGATIVE) 12/06/18 04:55 IZABEL & SPEP Interp Cancelled 12/04/18 04:34 - Plan (1) Diabetic gastroparesis Status: Acute Plan: 1/2 NS AT 125ML/HR, ZOFRAN, DEMEROL, PEPCID, PROTONIX, CONTINUE HOME MEDS (2) Intractable vomiting with nausea Status: Acute Qualifiers: Vomiting type: unspecified Qualified Code(s): R11.2 - Nausea with vomiting, unspecified Plan: ZOFRAN IV, CONTINUE GO MONITOR (3) Hypernatremia Status: Acute Plan: 1/2 NS AT 125ML/HR, CONTINUE TO MONITOR
[2018-12-06] MEDS: RESTORIL CAP 30 MG PO SCH (21:02)
[2018-12-06] MEDS: SNACK - Diabetic Appropriate PO SCH (21:04)
[2018-12-07] MEDS ORDERED: NS 1/2 1000 ML IV 1,000 ML ONE ×2 (02:20→03:46)
[2018-12-07] MEDS: NS 1/2 1000 ML IV 1,000 ML IV SCH ×2 (02:26→10:42)
[2018-12-07] MEDS: DEMEROL INJ IVP PRN (05:03)
[2018-12-07] MEDS: NEURONTIN CAP 300 MG PO SCH (05:03)
[2018-12-07] MEDS: HumuLIN R SUBCUT PRN (05:40)
[2018-12-07 05:50] LABS: BASOPHILS % (AUTO) 0.5 % (0.2-1.0); EOSINOPHILS % (AUTO) 0.3 % (0.9-2.9); HEMATOCRIT 28.7 % (42.0-54.0); HEMOGLOBIN 9.5 g/dL (13.5-18.0); LYMPHOCYTES # (AUTO) 1.6 X10^3/uL (1.3-2.9); LYMPHOCYTES % (AUTO) 28.1 % (21.0-51.0); MEAN CORPUSCULAR HEMOGLOBIN 24.9 pg (27.0-34.0); MEAN CORPUSCULAR HGB CONC 33.1 g/dL (33.0-35.0); MEAN CORPUSCULAR VOLUME 75.4 fL (80.0-100.0); MEAN PLATELET VOLUME 9.1 fL (7.4-11.0); MONOCYTES # (AUTO) 0.5 x10^3/uL (0.3-0.8); MONOCYTES % (AUTO) 8.1 % (0.0-13.0); NEUTROPHILS # (AUTO) 3.7 x10^3/uL (2.2-4.8); PLATELET COUNT 219 X10^3/uL (150.0-450.0); RED BLOOD COUNT 3.81 X10^6/uL (4.7-6.0); WHITE BLOOD COUNT 5.8 X10^3/uL (3.6-10.0)
[2018-12-07 06:04] LABS: ALANINE AMINOTRANSFERASE 16 Units/L (12-78); ALBUMIN 2.7 g/dL (3.4-5.0); ALKALINE PHOSPHATASE 113 Units/L (46-116); ASPARTATE AMINO TRANSFERASE 11 Units/L (15-37); BLOOD UREA NITROGEN 9 mg/dL (7-18); CALCIUM 8.2 mg/dL (8.5-10.1); CARBON DIOXIDE 27.3 mmol/L (21-32); CHLORIDE 105 mmol/L (98-107); COR CA(FOR HYPOALB) 9.2 mg/dL (8.5-10.1); COR NA(FOR HYPERGLY) 143 mmol/L (136-145); CREATININE 1.11 mg/dL (0.70-1.30); SODIUM 139 mmol/L (136-145); TOTAL PROTEIN 6.6 g/dL (6.4-8.2); eGFR NON BLACK RACES > 60 (>60)
[2018-12-07 06:44] LABS: HYPOCHROMASIA SLIGHT; PLATELET MORPHOLOGY COMMENT NORMAL (NORMAL)
[2018-12-07] MEDS: PROTONIX TAB 40 MG PO SCH (09:02)
[2018-12-07] MEDS: K-DUR TAB 20 MEQ PO SCH (09:02)
[2018-12-07] MEDS: NORVASC TAB 5 MG PO SCH (09:03)
[2018-12-07] MEDS: LEVSIN/MAALOX/LIDOC VISC PO SCH (09:03)
[2018-12-07] MEDS: COZAAR PO SCH (09:03)
[2018-12-07] MEDS: GLUCOTROL PO SCH (09:03)
[2018-12-07] MEDS: MILK OF MAGNESIA PO SCH (09:04)
[2018-12-07] MEDS: CHECK PATCH XX SCH (09:04)
[2018-12-07] MEDS: COLACE CAP 100 MG PO SCH (09:04)
[2018-12-07 09:46] VITALS: BP 161/84
[2018-12-10 01:15] LABS: ALPHA-1 (SPEP) 0.38 g/dL (0.19-0.46); ALPHA-2 (SPEP) 0.99 g/dL (0.48-1.05)
== END 2018-12-07 11:20 | disposition home or self-care (01) | DRG 74 ==
LOC: MED/SURG 15:42 → ER 15:42 → MED/SURG 17:46
PROVIDERS: ADMIT Internal Medicine; ATTEND Internal Medicine
DX: K31.84 Gastroparesis; I25.10 Atherosclerotic heart disease of native coronary artery without angina pectoris; E11.43 Type 2 diabetes mellitus with diabetic autonomic (poly)neuropathy; E87.0 Hyperosmolality and hypernatremia; I10 Essential (primary) hypertension; R11.14 Bilious vomiting; E78.2 Mixed hyperlipidemia; Z79.4 Long term (current) use of insulin; Z91.11 Patient's noncompliance with dietary regimen; R10.84 Generalized abdominal pain
CPT/HCPCS: 36415; 74000; 74018; 74022; 80053; 81001; 82009; 82150; 83690; 83735; 84165; 84166; 85025; 86335; 96365; 96374; 96375; 97110; 97140; 99284; A4216; A4222; S0028; G0378; J0360; J1642; J1815; J2175; J2405; J2550; J7030

== ENCOUNTER 2018-12-19 07:29 | Inpatient (IN) ==
[2018-12-19 07:34] VITALS: BMI 26.1
[2018-12-19] MEDS ORDERED: LR 1000 ML IV 1,000 ML IV ONE (08:04)
[2018-12-19] MEDS ORDERED: COMPAZINE INJ IVP ONE (08:04)
[2018-12-19] MEDS ORDERED: NS 1000 ML 1,000 ML IV ONE (08:04)
--- NOTE | 2018-12-19 08:04 | DR.N/VMALE ---
HPI Time Seen Time Seen by Provider: 12/19/18 08:00 Primary Care Physician Primary Care Physician: SAVANNAH HPI Comment HPI Comment: Patient presented on yesterday with episodes of vomiting. He was treated with antie-emetics protocol. He arrived in the ED at 1730 and was discharged at 2217. He had no vomiting s/p initial treatment. Complaints Chief Complaint Doctors Comments: Vomiting Chief Complaint:: PT C/O N/V, ABD PAIN THAT STARTED YESTERDAY. PT STATES HE WAS SEEN IN THE ER DEPT YESTERDAY AND DISCHARGED HOME LAST NIGHT. PT STATES HE HAS NOT STOPPED VOMITTING SINCE HE WAS DISCHARGED. Source History Provided: Patient Mode of Arrival Mode of Arrival: Ambulatory Timing Onset of Chief Complaint: 12/18/18 PMH PMH Past Medical History: Yes Past Medical History: Anemia, Coronary Artery Disease, Diabetes, Dyslipidemia, H ypertension and PUD Past Surgical History: Yes Surgical History: Cholecystectomy, Ortho Surgery and Other Past Surgical History Comment: PORT A CATH Family History History of Family Medical Conditions: Yes Family Medical History: Diabetes Mellitus and Coronary Artery Disease Social History Does any household member use tobacco: No Alcohol Use: None Do you use any recreational Drugs:: No Lives With: Family Lives Where: Home infectious screening In the last 2 months have you had wt loss of >10#?: NO Have you had fever, night sweats or hemotysis?: No Have you traveled outside the country in the last 6 months?: No Isolation: Standard PE Vital Signs Vitals: Temperature 98.2 F Pulse Rate [Left Brachial] 87 Pulse Rate 114 Respiratory Rate 18 Blood Pressure [Right Arm] 185/107 Blood Pressure [Left Arm] 145/86 Blood Pressure [Left Radial 160/102 Artery] Blood Pressure 210/102 O2 Sat by Pulse Oximetry 99 ROR Labs Reviewed Result Diagrams: 12/22/18 05:07 12/22/18 05:07 Laboratory: WBC 7.5 X10^3/uL (3.6-10.0) 12/22/18 05:07 RBC 4.01 X10^6/uL (4.7-6.0) L 12/22/18 05:07 Hgb 9.7 g/dL (13.5-18.0) L 12/22/18 05:07 Hct 30.5 % (42.0-54.0) L 12/22/18 05:07 MCV 75.9 fL (80.0-100.0) L 12/22/18 05:07 MCH 24.2 pg (27.0-34.0) L 12/22/18 05:07 MCHC 31.9 g/dL (33.0-35.0) L 12/22/18 05:07 RDW 16.6 % (11.6-16.5) H 12/22/18 05:07 Plt Count 255 X10^3/uL (150.0-450.0) 12/22/18 05:07 Plt Count Comment Adequate (ADEQUATE) 12/22/18 05:07 MPV 8.9 fL (7.4-11.0) 12/22/18 05:07 Neut % (Auto) 62.3 % (42.0-75.0) 12/22/18 05:07 Lymph % (Auto) 27.3 % (21.0-51.0) 12/22/18 05:07 [place] % (Auto) 9.6 % (0.0-13.0) 12/22/18 05:07 Eos % (Auto) 0.1 % (0.9-2.9) L 12/22/18 05:07 Baso % (Auto) 0.7 % (0.2-1.0) 12/22/18 05:07 Neut # (Auto) 4.6 x10^3/uL (2.2-4.8) 12/22/18 05:07 Lymph # (Auto) 2.0 X10^3/uL (1.3-2.9) 12/22/18 05:07 [place] # (Auto) 0.7 x10^3/uL (0.3-0.8) 12/22/18 05:07 Eos # (Auto) 0.0 x10^3/uL (0.0-0.2) 12/22/18 05:07 Baso # (Auto) 0.1 X10^3/uL (0.0-0.1) 12/22/18 05:07 Absolute Nucleated RBC 0.1 /100WBC 12/22/18 05:07 Total Counted 100 12/20/18 04:45 Neutrophils % (Manual) 95 % (39-76) H 12/20/18 04:45 Band Neutrophils % 4 % (0-10) 12/19/18 07:48 Lymphocytes % (Manual) 5 % (13-43) L 12/20/18 04:45 Plt Morphology Comment Normal (NORMAL) 12/22/18 05:07 RBC Morphology Normal (NORMAL) 12/22/18 05:07 Sample Site Rr 12/21/18 10:53 ABG pH 7.420 (7.35-7.45) 12/21/18 10:53 ABG pCO2 38.0 mmHg (35.0-45.0) 12/21/18 10:53 ABG pO2 50.0 mmHg (80.0-100.0) L 12/21/18 10:53 ABG HCO3 24.6 mmol/L (22-26) 12/21/18 10:53 ABG O2 Saturation 86.0 % (90-100) L 12/21/18 10:53 ABG Base Excess 0.3 mmol/L (-2.0-2.0) 12/21/18 10:53 Wang Test Pos 12/21/18 10:53 A-a Gradient Not Reportable 12/21/18 10:53 FiO2 21 12/21/18 10:53 Blood Gas Comments Les well cb 12/21/18 10:53 Sodium 140 mmol/L (136-145) 12/22/18 05:07 Corrected Sodium 141 mmol/L (136-145) 12/22/18 05:07 Potassium 3.8 mmol/L (3.5-5.1) 12/22/18 05:07 Chloride 106 mmol/L (98-107) 12/22/18 05:07 Carbon Dioxide 25.4 mmol/L (21-32) 12/22/18 05:07 BUN 23 mg/dL (7-18) H 12/22/18 05:07 Creatinine 0.95 mg/dL (0.70-1.30) 12/22/18 05:07 Est GFR (MDRD) Af Amer > 60 (>60) 12/22/18 05:07 Est GFR (MDRD) Non-Af > 60 (>60) 12/22/18 05:07 Glucose 142 mg/dL (65-99) H 12/22/18 05:07 Calcium 8.5 mg/dL (8.5-10.1) 12/22/18 05:07 Corrected Calcium 9.5 mg/dL (8.5-10.1) 12/22/18 05:07 Magnesium 2.4 mg/dL (1.7-2.9) 12/22/18 05:07 Total Bilirubin 0.70 mg/dL (0.2-1.0) 12/22/18 05:07 AST 19 Units/L (15-37) 12/22/18 05:07 ALT 13 Units/L (12-78) 12/22/18 05:07 Alkaline Phosphatase 93 Units/L (46-116) 12/22/18 05:07 Total Protein 6.8 g/dL (6.4-8.2) 12/22/18 05:07 Albumin 2.8 g/dL (3.4-5.0) L 12/22/18 05:07 Globulin 4.0 g/dL (2.5-4.5) 12/22/18 05:07 Albumin/Globulin Ratio 0.7 Ratio (1.1-2.1) L 12/22/18 05:07 Amylase 50 Units/L (25-115) 12/22/18 05:07 Lipase 112 Units/L (73-393) 12/22/18 05:07 Specimen Type Random urine 12/19/18 08:14 Urine Color Yellow (YELLOW) 12/19/18 08:14 Urine Appearance Clear (CLEAR) 12/19/18 08:14 Urine pH 6.0 (5.0 - 8.0) 12/19/18 08:14 Ur Specific [place] 1.010 (1.000-1.030) 12/19/18 08:14 Urine Protein 3+ (NEGATIVE) 12/19/18 08:14 Urine Glucose (UA) 4+ (NEGATIVE) 12/19/18 08:14 Urine Ketones 3+ (NEGATIVE) 12/19/18 08:14 Urine Occult Blood 3+ (NEGATIVE) 12/19/18 08:14 Urine Nitrite Negative (NEGATIVE) 12/19/18 08:14 Urine Bilirubin Negative (NEGATIVE) 12/19/18 08:14 Urine Urobilinogen Normal (NORMAL) 12/19/18 08:14 Ur Leukocyte Esterase Negative (NEGATIVE) 12/19/18 08:14 Urine RBC 0-2 /HPF (NONE SEEN) 12/19/18 08:14 Urine WBC None seen /HPF (NONE SEEN) 12/19/18 08:14 Ur Squamous Epith Cells Few /HPF (NEGATIVE) 12/19/18 08:14 Urine Bacteria Negative /HPF (NEGATIVE) 12/19/18 08:14 Ur Culture Indicated? No/not indicated 12/19/18 08:14 Acetone, Semi-Quant Negative (NEGATIVE) 12/22/18 05:07 Opioid Opioid Risk Tool Age (Paddy box if 16-45): Yes Total: 1 Total Score Risk Category: Low Risk Copyright: Steven STEPHEN predicting aberrant behaviors ADDITIONAL NOTES Additional Notes Additional Notes: Patient care was assumed by oncoming physician Dr. Piña
[2018-12-19] MEDS ORDERED: LR 1000 ML IV 1,000 ML ONE (08:12)
[2018-12-19 08:20] LABS: BASOPHILS # (AUTO) 0.1 X10^3/uL (0.0-0.1); BASOPHILS % (AUTO) 0.7 % (0.2-1.0); HEMATOCRIT 34.4 % (42.0-54.0); HEMOGLOBIN 10.9 g/dL (13.5-18.0); LYMPHOCYTES # (AUTO) 0.9 X10^3/uL (1.3-2.9); LYMPHOCYTES % (AUTO) 5.7 % (21.0-51.0); MEAN CORPUSCULAR HEMOGLOBIN 24.2 pg (27.0-34.0); MEAN CORPUSCULAR HGB CONC 31.9 g/dL (33.0-35.0); MEAN CORPUSCULAR VOLUME 75.9 fL (80.0-100.0); MEAN PLATELET VOLUME 8.8 fL (7.4-11.0); MONOCYTES # (AUTO) 0.3 x10^3/uL (0.3-0.8); NEUTROPHILS # (AUTO) 13.9 x10^3/uL (2.2-4.8); NEUTROPHILS % (AUTO) 91.6 % (42.0-75.0); PLATELET COUNT 380 X10^3/uL (150.0-450.0); RED BLOOD COUNT 4.52 X10^6/uL (4.7-6.0); RED CELL DISTRIBUTION WIDTH 16.6 % (11.6-16.5); WHITE BLOOD COUNT 15.2 X10^3/uL (3.6-10.0)
--- NOTE | 2018-12-19 08:21 | RAD ---
Examination: AP chest History: Vomiting Comparison 07/31/2018 Findings: Normal heart size with essentially clear lungs and pleural spaces. Left IJ injection port terminates near the cavoatrial junction. Impression: No acute chest disease demonstrated. Reported By:
[2018-12-19] MEDS ORDERED: COMPAZINE INJ ONE (08:23)
[2018-12-19 08:28] LABS: ALANINE AMINOTRANSFERASE 17 Units/L (12-78); ALBUMIN 3.9 g/dL (3.4-5.0); ALKALINE PHOSPHATASE 145 Units/L (46-116); ASPARTATE AMINO TRANSFERASE 17 Units/L (15-37); BLOOD UREA NITROGEN 18 mg/dL (7-18); CALCIUM 9.6 mg/dL (8.5-10.1); CARBON DIOXIDE 22.8 mmol/L (21-32); CHLORIDE 96 mmol/L (98-107); COR NA(FOR HYPERGLY) 143 mmol/L (136-145); CREATININE 1.47 mg/dL (0.70-1.30); SODIUM 135 mmol/L (136-145); TOTAL PROTEIN 8.8 g/dL (6.4-8.2); eGFR NON BLACK RACES 55 (>60)
[2018-12-19 08:51] LABS: BAND NEUTROPHILS % 4 % (0-10); PLATELET MORPHOLOGY COMMENT NORMAL (NORMAL)
[2018-12-19] MEDS ORDERED: DILAUDID INJ ONE (08:53)
[2018-12-19] MEDS ORDERED: DILAUDID INJ IVP ONE (08:56)
[2018-12-19 09:08] LABS: BILIRUBIN,URINE NEGATIVE (NEGATIVE); BLOOD/HEMOGLOBIN,URINE 3+ (NEGATIVE); GLUCOSE, URINE 4+ (NEGATIVE); KETONES,URINE 3+ (NEGATIVE); LEUKOCYTE ESTERASE ,URINE NEGATIVE (NEGATIVE); NITRITES,URINE NEGATIVE (NEGATIVE); PROTEIN,URINE 3+ (NEGATIVE); UROBILINOGEN,URINE NORMAL (NORMAL)
[2018-12-19] MEDS ORDERED: HumuLIN R SUBCUT ONE (09:11)
[2018-12-19 09:14] LABS: APPEARANCE,URINE CLEAR (CLEAR); COLOR,URINE YELLOW (YELLOW)
[2018-12-19 09:15] LABS: BACTERIA,URINE NEGATIVE /HPF (NEGATIVE); RBC,URINE 0-2 /HPF (NONE SEEN); SQUAMOUS EPITHELIAL CELL,UR FEW /HPF (NEGATIVE)
[2018-12-19] MEDS ORDERED: HumuLIN R ONE (09:15)
[2018-12-19] MEDS ORDERED: NS 1000 ML 1,000 ML ONE ×2 (10:20→10:23)
[2018-12-19] MEDS: NS 1000 ML 1,000 ML IV SCH ×2 (10:25→17:56)
[2018-12-19] MEDS: HumuLIN R SUBCUT PRN (12:22)
[2018-12-19] MEDS: DILAUDID INJ IVP PRN (17:20)
[2018-12-19] MEDS: SNACK - Diabetic Appropriate PO SCH (21:39)
[2018-12-19] MEDS ORDERED: DECADRON INJ PRESERVATIVE-FREE IM ONE (22:11)
[2018-12-19] MEDS ORDERED: NS 50 ML IV 50 ML ONE (22:12)
[2018-12-19] MEDS ORDERED: ZOFRAN INJ 4 MG VIAL ONE (22:12)
[2018-12-19] MEDS ORDERED: ATIVAN INJ 2 MG VIAL ONE (22:13)
[2018-12-19] MEDS: ZOFRAN INJ 4 MG VIAL 16 MG, ATIVAN INJ 2 MG VIAL 1 MG, DECADRON INJ 10 MG in NS 50 ML I... IV PRN (22:27)
[2018-12-20] MEDS: DILAUDID INJ IVP PRN ×4 (03:51→21:07)
[2018-12-20 05:27] LABS: BASOPHILS % (AUTO) 0.3 % (0.2-1.0); HEMATOCRIT 32.5 % (42.0-54.0); HEMOGLOBIN 10.3 g/dL (13.5-18.0); LYMPHOCYTES # (AUTO) 0.4 X10^3/uL (1.3-2.9); LYMPHOCYTES % (AUTO) 4.2 % (21.0-51.0); MEAN CORPUSCULAR HEMOGLOBIN 24.4 pg (27.0-34.0); MEAN CORPUSCULAR HGB CONC 31.7 g/dL (33.0-35.0); MEAN PLATELET VOLUME 9.2 fL (7.4-11.0); MONOCYTES # (AUTO) 0.1 x10^3/uL (0.3-0.8); MONOCYTES % (AUTO) 0.7 % (0.0-13.0); NEUTROPHILS # (AUTO) 8.7 x10^3/uL (2.2-4.8); NEUTROPHILS % (AUTO) 94.8 % (42.0-75.0); PLATELET COUNT 274 X10^3/uL (150.0-450.0); RED BLOOD COUNT 4.23 X10^6/uL (4.7-6.0); RED CELL DISTRIBUTION WIDTH 17.2 % (11.6-16.5); WHITE BLOOD COUNT 9.2 X10^3/uL (3.6-10.0)
[2018-12-20 05:38] LABS: ALANINE AMINOTRANSFERASE 14 Units/L (12-78); ALBUMIN 3.3 g/dL (3.4-5.0); ALKALINE PHOSPHATASE 118 Units/L (46-116); ASPARTATE AMINO TRANSFERASE 19 Units/L (15-37); BLOOD UREA NITROGEN 24 mg/dL (7-18); CALCIUM 8.8 mg/dL (8.5-10.1); CARBON DIOXIDE 23.4 mmol/L (21-32); CHLORIDE 104 mmol/L (98-107); COR CA(FOR HYPOALB) 9.4 mg/dL (8.5-10.1); COR NA(FOR HYPERGLY) 144 mmol/L (136-145); CREATININE 1.11 mg/dL (0.70-1.30); SODIUM 139 mmol/L (136-145); TOTAL PROTEIN 7.6 g/dL (6.4-8.2); eGFR NON BLACK RACES > 60 (>60)
[2018-12-20] MEDS: HumuLIN R SUBCUT PRN ×3 (06:04→16:58)
[2018-12-20 06:37] LABS: PLATELET MORPHOLOGY COMMENT NORMAL (NORMAL)
[2018-12-20] MEDS ORDERED: DECADRON INJ PRESERVATIVE-FREE IM ONE ×2 (09:50→20:47)
[2018-12-20] MEDS ORDERED: ZOFRAN INJ 4 MG VIAL ONE ×2 (09:50→20:46)
[2018-12-20] MEDS ORDERED: NS 50 ML IV 50 ML ONE ×2 (09:50→20:47)
[2018-12-20] MEDS ORDERED: ATIVAN INJ 2 MG VIAL ONE ×2 (09:51→20:49)
[2018-12-20] MEDS: ZOFRAN INJ 4 MG VIAL 16 MG, ATIVAN INJ 2 MG VIAL 1 MG, DECADRON INJ 10 MG in NS 50 ML I... IV PRN ×2 (09:58→20:53)
[2018-12-20] MEDS: NS 1000 ML 1,000 ML IV SCH ×3 (10:03→17:22)
[2018-12-20] MEDS ORDERED: CATAPRES-TTS-3 TD SCH (17:00)
[2018-12-20] MEDS: COZAAR PO SCH (17:04)
[2018-12-20] MEDS: NORVASC TAB 5 MG PO SCH (17:05)
--- NOTE | 2018-12-20 19:00 | DR.H&P ---
H&P - History & Physical for Day of: H&P Date: 12/19/18 - Chief Complaint Chief Complaint: NAUSEA, VOMITING, ABDOMINAL PAIN - History of Present Illness History of Present Illness: IS A 48 YEAR OLD PATIENT OF OURS WHO PRESENTED TO THE ER WITH COMPLAINTS OF NAUSEA, VOMITING, AND ABDOMINAL PAIN THAT STARTED YESTERDAY. HE WAS TREATED IN THE ER YESTERDAY, BUT REPORTS THAT SYMPTOMS CONTINUED TO WORSEN. HE HAS A HISTORY OF DIABETIC GASTROPARESIS. HE IS GENERALLY NON-COMPLIANT WITH A DIABETIC DIET. ON ARRIVAL, VITALS WERE 98.0-114-20-99%-210/102. LABS WERE OBTAINED. ABNORMAL LAB VALUES INCLUDE THE FOLLOWING: WBC 15.2, RBC 4.52, HGB 10.9, HCT 34.4, SODIUM 135, CHLORIDE 96, CREATININE 1.47, GLUCOSE 453, ALK PHOS 145, TOTAL PROTEIN 8.8, GLOBULIN 4.9. A CHEST XRAY WAS OBTAINED AND REVEALED: No acute chest disease demonstrated. HE W GIVEN COMPAZINE 10MG IV X 1 DOSE, DILAUDID 2MG IV X 1, HUMULIN R 14 UNITS SC X 1, AND AN LR BOLUS. ONLY SLIGHT IMPROVEMENT IN SYMPTOMS NOTED. HIS BLOOD PRESSURE DID DECREASE TO 167/91. HE WAS ADMITTED FOR FURTHER EVALUATION AND TREATMENT OF INTRACTABLE NAUSEA AND VOMITING, ABDOMINAL PAIN, AND DIABETIC GASTROPARESIS. HE WAS STARTED ON NORMAL SALINE AT 75ML/HR, ZOFRAN COCKTAIL, DILAUDID 2MG IV Q4H PRN, CLONIDINE PATCH TD Q7D, HUMULIN R SLIDING SCALE, AND HOME MEDICATIONS WERE RESUMED. WE PLAN TO FOLLOW-UP WITH AM LABS AND CONTINUE TO MONITOR. - Past Medical History Past Medical History: Coronary Artery Disease, Hypertension, Dyslipidemia, Diabetes, Anemia, PUD Additional Medical History: Diabetic Neuropathy, Diabetic Gastroparesis, Hiatal Hernia, Gastric Ulcer, Gall Bladder Disease, Back Pain - Past Surgical History Surgical History: Cholecystectomy, Ortho Surgery, Other Additional Surgical History: Right foot I&D - Family History Family Medical History: Diabetes Mellitus, Coronary Artery Disease - Social History Does patient currently use any type of tobacco product: No Have you used tobacco products in the last 12 months: No Type of Tobacco Use: None Does any household member use tobacco: No Alcohol Use: None Drug Use: None Prescription drug monitoring program results: PDMP reviewed and no concerns identified - Medications Home Medications: codeine Allergy (Verified 12/03/18 15:51) morphine Allergy (Verified 12/03/18 15:51) CONTINUE taking the following medications cephalexin 500 mg PO Q6H 12/19/18 [History] - Review of Systems Constitutional: Weakness Eyes: No Symptoms Reported ENT: No Symptoms Reported Respiratory: Shortness of Breath Cardiovascular: No Symptoms Reported Gastrointestinal: See HPI, Nausea, Vomiting, Abdominal Pain Genitourinary: No Symptoms Reported Musculoskeletal: No Symptoms Reported Skin: No Symptoms Reported Neurological: Weakness - Physical Exam Vital Signs: Temperature 97.7 F Pulse Rate [Left Brachial] 119 Pulse Rate 114 Respiratory Rate 20 Blood Pressure [Right Arm] 182/105 Blood Pressure [Left Arm] 126/68 Blood Pressure [Left Radial 160/102 Artery] Blood Pressure 210/102 O2 Sat by Pulse Oximetry 98 Oriented: Normal Eyes: Normal Ear: Normal Nose: Normal Throat: Normal Respiratory: Diminished Throughout Cardiovascular: Tachycardia. negative: S3, S4, Murmur : Normal Auscultation: Bowel Sounds: Normal Palpation: Normal Tenderness: Diffuse, Moderate. negative: Rebound, Guarding, Rigidity Skin: Normal Musculoskeletal: Normal Psychiatric: Normal Mood Description: Calm Affect: Normal Speech Pattern: Clear - Assessment/Plan (1) Diabetic gastroparesis Status: Acute Plan: ADMIT, IV FLUIDS, ZOFRAN COCKTAIL, MONITOR OTBS, HUMIN R SLIDING SCALE, CONTINUE TO MONITOR (2) Hypertension, uncontrolled Status: Acute Plan: CONTINUE HOME MEDS (3) Intractable vomiting with nausea Qualifiers: Vomiting type: unspecified Status: Acute Plan: ZOFRAN COCKTAIL, CONTINUE TO MONITOR - Allergies Allergies/Adverse Reactions: Allergies Allergy/AdvReac Type Severity Reaction Status Date / Time codeine Allergy Verified 12/03/18 15:51 morphine Allergy Verified 12/03/18 15:51
[2018-12-20] MEDS: SNACK - Diabetic Appropriate PO SCH (20:16)
[2018-12-21] MEDS: NS 1000 ML 1,000 ML IV SCH ×3 (01:59→17:04)
[2018-12-21] MEDS: DILAUDID INJ IVP PRN ×2 (03:38→09:25)
[2018-12-21] MEDS ORDERED: ZOFRAN INJ 4 MG VIAL ONE (03:47)
[2018-12-21] MEDS ORDERED: NS 50 ML IV 50 ML ONE (03:47)
[2018-12-21] MEDS ORDERED: DECADRON INJ PRESERVATIVE-FREE IM ONE (03:47)
[2018-12-21] MEDS ORDERED: ATIVAN INJ 2 MG VIAL ONE (03:48)
[2018-12-21] MEDS: ZOFRAN INJ 4 MG VIAL 16 MG, ATIVAN INJ 2 MG VIAL 1 MG, DECADRON INJ 10 MG in NS 50 ML I... IV PRN (04:01)
[2018-12-21 05:20] LABS: BASOPHILS % (AUTO) 0.3 % (0.2-1.0); HEMATOCRIT 32.6 % (42.0-54.0); HEMOGLOBIN 10.5 g/dL (13.5-18.0); LYMPHOCYTES # (AUTO) 0.4 X10^3/uL (1.3-2.9); LYMPHOCYTES % (AUTO) 4.6 % (21.0-51.0); MEAN CORPUSCULAR HEMOGLOBIN 24.7 pg (27.0-34.0); MEAN CORPUSCULAR HGB CONC 32.3 g/dL (33.0-35.0); MEAN CORPUSCULAR VOLUME 76.4 fL (80.0-100.0); MEAN PLATELET VOLUME 8.9 fL (7.4-11.0); MONOCYTES # (AUTO) 0.2 x10^3/uL (0.3-0.8); MONOCYTES % (AUTO) 2.1 % (0.0-13.0); NEUTROPHILS # (AUTO) 8.6 x10^3/uL (2.2-4.8); PLATELET COUNT 351 X10^3/uL (150.0-450.0); RED BLOOD COUNT 4.27 X10^6/uL (4.7-6.0); WHITE BLOOD COUNT 9.2 X10^3/uL (3.6-10.0)
[2018-12-21 05:45] LABS: ALANINE AMINOTRANSFERASE 17 Units/L (12-78); ALBUMIN 3.2 g/dL (3.4-5.0); ALKALINE PHOSPHATASE 112 Units/L (46-116); AMYLASE 57 Units/L (25-115); ASPARTATE AMINO TRANSFERASE 12 Units/L (15-37); BLOOD UREA NITROGEN 27 mg/dL (7-18); CALCIUM 8.3 mg/dL (8.5-10.1); CHLORIDE 104 mmol/L (98-107); COR CA(FOR HYPOALB) 8.9 mg/dL (8.5-10.1); COR NA(FOR HYPERGLY) 145 mmol/L (136-145); CREATININE 1.23 mg/dL (0.70-1.30); SODIUM 140 mmol/L (136-145); TOTAL PROTEIN 7.6 g/dL (6.4-8.2); eGFR NON BLACK RACES > 60 (>60)
[2018-12-21] MEDS: COZAAR PO SCH (09:21)
[2018-12-21] MEDS: NORVASC TAB 5 MG PO SCH (09:25)
[2018-12-21 11:04] LABS: ABG BASE EXCESS 0.3 mmol/L (-2.0-2.0); ABG HCO3 24.6 mmol/L (22-26)
[2018-12-21 11:05] LABS: ABG ALLEN TEST POS
[2018-12-21] MEDS: HumuLIN R SUBCUT PRN ×3 (12:23→21:30)
[2018-12-21] MEDS: SNACK - Diabetic Appropriate PO SCH (19:51)
--- NOTE | 2018-12-21 20:09 | PCM.PROG ---
Progress Note - Progress Note for Day of Date of Exam: 12/20/18 - Subjective Subjective: WAS ADMITTED FOR INTRACTABLE NAUSEA OR VOMITING AND ABDOMINAL PAIN. HE HAS A HISTORY OF DIABETIC GASTROPARESIS AND IS GENERALLY NON- COMPLIANT WITH HIS DIET. HE CONTINUES WITH NAUSEA AND VOMITING TODAY. ON EXAMINATION, HEART IS REGULAR IN RATE AND RHYTHM. BILATERAL LUNGS ARE CLEAR TO AUSCULTATION. ABDOMEN IS ROUND, SOFT, AND NOTED WITH MILD, DIFFUSE TENDERNESS. HYPERACTIVE BOWEL SOUNDS NOTED. HIS VITALS THIS MORNING ARE 97.7-108-18-96%-114/86. LABS WERE OBTAINED. ABNORMAL LAB VALUES INCLUDE THE FOLLOWING: RBC 4.23, HGB 10.3, HCT 32.5, BUN 24, GLUCOSE 305, ALK PHOS 118, ALBUMIN 3.3. HE IS CURRENTLY RECEIVING NORMAL SALINE AT 75ML/HR, ZOFRAN COCKTAIL, HUMULIN R SLIDING SCALE, DILAUDID 2MG IV Q4H PRN, AND HIS HOME MEDICATIONS WERE RESUMED. WE WILL CONTINUE WITH CURRENT PLAN OF CARE TODAY. OTHERWISE, WE WILL FOLLOW UP WITH AM LABS AND CONTINUE TO MONITOR. - Past Medical Family Social History Past Med/Fam/Surg Hx: No changes since H&P Allergies: Allergies codeine Allergy (Verified 12/03/18 15:51) morphine Allergy (Verified 12/03/18 15:51) - Review of Systems ROS: No change since H&P - Vital Signs and I&O's Vital Signs: Temperature 98 F Pulse Rate [Left Brachial] 87 Pulse Rate 114 Respiratory Rate 18 Blood Pressure [Right Arm] 185/107 Blood Pressure [Left Arm] 159/89 Blood Pressure [Left Radial 160/102 Artery] Blood Pressure 210/102 O2 Sat by Pulse Oximetry 96 Intake and Output: Intake & Output 12/19/18 12/20/18 12/21/18 12/22/18 11:59 11:59 11:59 11:59 Intake Total 800 / 800 1460 / 1460 1250 / 1250 Output Total 100 / 100 Balance 700 / 700 1460 / 1460 1250 / 1250 - Physical Exam Oriented: Normal Eyes: Normal Ear: Normal Nose: Normal Throat: Normal Respiratory: Generalized, Diminished Cardiovascular: Tachycardia. negative: S3, S4, Murmur : Normal Auscultation: Bowel Sounds: Normal Palpation: Normal Tenderness: Diffuse, Moderate. negative: Rebound, Guarding, Rigidity Skin: Normal Musculoskeletal: Normal Psychiatric: Normal Mood Description: Calm Affect: Normal Speech Pattern: Clear, Appropriate - Laboratory and Diagnostics Result Diagrams: 12/21/18 05:04 12/21/18 05:04 Labs: Laboratory WBC 9.2 X10^3/uL (3.6-10.0) 12/21/18 05:04 RBC 4.27 X10^6/uL (4.7-6.0) L 12/21/18 05:04 Hgb 10.5 g/dL (13.5-18.0) L 12/21/18 05:04 Hct 32.6 % (42.0-54.0) L 12/21/18 05:04 MCV 76.4 fL (80.0-100.0) L 12/21/18 05:04 MCH 24.7 pg (27.0-34.0) L 12/21/18 05:04 MCHC 32.3 g/dL (33.0-35.0) L 12/21/18 05:04 RDW 17.0 % (11.6-16.5) H 12/21/18 05:04 Plt Count 351 X10^3/uL (150.0-450.0) 12/21/18 05:04 Plt Count Comment Adequate (ADEQUATE) 12/20/18 04:45 MPV 8.9 fL (7.4-11.0) 12/21/18 05:04 Neut % (Auto) 93.0 % (42.0-75.0) H 12/21/18 05:04 Lymph % (Auto) 4.6 % (21.0-51.0) L 12/21/18 05:04 [place] % (Auto) 2.1 % (0.0-13.0) 12/21/18 05:04 Eos % (Auto) 0.0 % (0.9-2.9) L 12/21/18 05:04 Baso % (Auto) 0.3 % (0.2-1.0) 12/21/18 05:04 Neut # (Auto) 8.6 x10^3/uL (2.2-4.8) H 12/21/18 05:04 Lymph # (Auto) 0.4 X10^3/uL (1.3-2.9) L 12/21/18 05:04 [place] # (Auto) 0.2 x10^3/uL (0.3-0.8) L 12/21/18 05:04 Eos # (Auto) 0.0 x10^3/uL (0.0-0.2) 12/21/18 05:04 Baso # (Auto) 0.0 X10^3/uL (0.0-0.1) 12/21/18 05:04 Absolute Nucleated RBC 0.0 /100WBC 12/21/18 05:04 Total Counted 100 12/20/18 04:45 Neutrophils % (Manual) 95 % (39-76) H 12/20/18 04:45 Band Neutrophils % 4 % (0-10) 12/19/18 07:48 Lymphocytes % (Manual) 5 % (13-43) L 12/20/18 04:45 Plt Morphology Comment Normal (NORMAL) 12/20/18 04:45 RBC Morphology Normal (NORMAL) 12/20/18 04:45 Sample Site Rr 12/21/18 10:53 ABG pH 7.420 (7.35-7.45) 12/21/18 10:53 ABG pCO2 38.0 mmHg (35.0-45.0) 12/21/18 10:53 ABG pO2 50.0 mmHg (80.0-100.0) L 12/21/18 10:53 ABG HCO3 24.6 mmol/L (22-26) 12/21/18 10:53 ABG O2 Saturation 86.0 % (90-100) L 12/21/18 10:53 ABG Base Excess 0.3 mmol/L (-2.0-2.0) 12/21/18 10:53 Wang Test Pos 12/21/18 10:53 Blood Gas Comments Les well cb 12/21/18 10:53 Sodium 140 mmol/L (136-145) 12/21/18 05:04 Corrected Sodium 145 mmol/L (136-145) 12/21/18 05:04 Potassium 4.6 mmol/L (3.5-5.1) 12/21/18 05:04 Chloride 104 mmol/L (98-107) 12/21/18 05:04 Carbon Dioxide 27.0 mmol/L (21-32) 12/21/18 05:04 BUN 27 mg/dL (7-18) H 12/21/18 05:04 Creatinine 1.23 mg/dL (0.70-1.30) 12/21/18 05:04 Est GFR (MDRD) Af Amer > 60 (>60) 12/21/18 05:04 Est GFR (MDRD) Non-Af > 60 (>60) 12/21/18 05:04 Glucose 302 mg/dL (65-99) H 12/21/18 05:04 Calcium 8.3 mg/dL (8.5-10.1) L 12/21/18 05:04 Corrected Calcium 8.9 mg/dL (8.5-10.1) 12/21/18 05:04 Total Bilirubin 0.40 mg/dL (0.2-1.0) 12/21/18 05:04 AST 12 Units/L (15-37) L 12/21/18 05:04 ALT 17 Units/L (12-78) 12/21/18 05:04 Alkaline Phosphatase 112 Units/L (46-116) 12/21/18 05:04 Total Protein 7.6 g/dL (6.4-8.2) 12/21/18 05:04 Albumin 3.2 g/dL (3.4-5.0) L 12/21/18 05:04 Globulin 4.4 g/dL (2.5-4.5) 12/21/18 05:04 Albumin/Globulin Ratio 0.7 Ratio (1.1-2.1) L 12/21/18 05:04 Amylase 57 Units/L (25-115) 12/21/18 05:04 Specimen Type Random urine 12/19/18 08:14 Urine Color Yellow (YELLOW) 12/19/18 08:14 Urine Appearance Clear (CLEAR) 12/19/18 08:14 Urine pH 6.0 (5.0 - 8.0) 12/19/18 08:14 Ur Specific [place] 1.010 (1.000-1.030) 12/19/18 08:14 Urine Protein 3+ (NEGATIVE) 12/19/18 08:14 Urine Glucose (UA) 4+ (NEGATIVE) 12/19/18 08:14 Urine Ketones 3+ (NEGATIVE) 12/19/18 08:14 Urine Occult Blood 3+ (NEGATIVE) 12/19/18 08:14 Urine Nitrite Negative (NEGATIVE) 12/19/18 08:14 Urine Bilirubin Negative (NEGATIVE) 12/19/18 08:14 Urine Urobilinogen Normal (NORMAL) 12/19/18 08:14 Ur Leukocyte Esterase Negative (NEGATIVE) 12/19/18 08:14 Urine RBC 0-2 /HPF (NONE SEEN) 12/19/18 08:14 Urine WBC None seen /HPF (NONE SEEN) 12/19/18 08:14 Ur Squamous Epith Cells Few /HPF (NEGATIVE) 12/19/18 08:14 Urine Bacteria Negative /HPF (NEGATIVE) 12/19/18 08:14 Ur Culture Indicated? No/not indicated 12/19/18 08:14 Acetone, Semi-Quant Small (NEGATIVE) H 12/21/18 05:04 - Plan (1) Diabetic gastroparesis Status: Acute Plan: IV FLUIDS, ZOFRAN COCKTAIL, MONITOR OTBS, HUMIN R SLIDING SCALE, CONTINUE TO MONITOR (2) Hypertension, uncontrolled Status: Acute Plan: CONTINUE HOME MEDS (3) Intractable vomiting with nausea Status: Acute Qualifiers: Vomiting type: unspecified Plan: ZOFRAN COCKTAIL, CONTINUE TO MONITOR
[2018-12-22 05:38] LABS: BASOPHILS # (AUTO) 0.1 X10^3/uL (0.0-0.1); BASOPHILS % (AUTO) 0.7 % (0.2-1.0); EOSINOPHILS % (AUTO) 0.1 % (0.9-2.9); HEMATOCRIT 30.5 % (42.0-54.0); HEMOGLOBIN 9.7 g/dL (13.5-18.0); LYMPHOCYTES % (AUTO) 27.3 % (21.0-51.0); MEAN CORPUSCULAR HEMOGLOBIN 24.2 pg (27.0-34.0); MEAN CORPUSCULAR HGB CONC 31.9 g/dL (33.0-35.0); MEAN CORPUSCULAR VOLUME 75.9 fL (80.0-100.0); MEAN PLATELET VOLUME 8.9 fL (7.4-11.0); MONOCYTES # (AUTO) 0.7 x10^3/uL (0.3-0.8); MONOCYTES % (AUTO) 9.6 % (0.0-13.0); NEUTROPHILS # (AUTO) 4.6 x10^3/uL (2.2-4.8); NEUTROPHILS % (AUTO) 62.3 % (42.0-75.0); PLATELET COUNT 255 X10^3/uL (150.0-450.0); RED BLOOD COUNT 4.01 X10^6/uL (4.7-6.0); RED CELL DISTRIBUTION WIDTH 16.6 % (11.6-16.5); WHITE BLOOD COUNT 7.5 X10^3/uL (3.6-10.0)
[2018-12-22] MEDS: DILAUDID INJ IVP PRN ×3 (05:40→21:19)
[2018-12-22] MEDS: NS 1000 ML 1,000 ML IV SCH ×3 (05:40→14:18)
[2018-12-22 06:04] LABS: ALANINE AMINOTRANSFERASE 13 Units/L (12-78); ALBUMIN 2.8 g/dL (3.4-5.0); ALKALINE PHOSPHATASE 93 Units/L (46-116); AMYLASE 50 Units/L (25-115); ASPARTATE AMINO TRANSFERASE 19 Units/L (15-37); BLOOD UREA NITROGEN 23 mg/dL (7-18); CALCIUM 8.5 mg/dL (8.5-10.1); CARBON DIOXIDE 25.4 mmol/L (21-32); CHLORIDE 106 mmol/L (98-107); COR CA(FOR HYPOALB) 9.5 mg/dL (8.5-10.1); COR NA(FOR HYPERGLY) 141 mmol/L (136-145); CREATININE 0.95 mg/dL (0.70-1.30); LIPASE 112 Units/L (73-393); SODIUM 140 mmol/L (136-145); TOTAL PROTEIN 6.8 g/dL (6.4-8.2); eGFR NON BLACK RACES > 60 (>60)
[2018-12-22] MEDS ORDERED: MICRO K EXTEN CAP 10 MEQ PO PRN (06:27)
[2018-12-22] MEDS ORDERED: POTASSIUM CHL 40 MEQ/NS 0.45% 500 ML IV PRN (06:27)
[2018-12-22] MEDS ORDERED: MAGNESIUM SULFATE 1 GRAM/100 mL PREMIX 1 GM/100 ML BAG IV PRN (06:27)
[2018-12-22] MEDS ORDERED: K-RIDER 10 MEQ/NS 100 ML 10 MEQ/100 ML BAG IV PRN (06:27)
[2018-12-22] MEDS ORDERED: POTASSIUM CHL 60 MEQ/NS 0.45% 500 ML IV PRN (06:27)
[2018-12-22] MEDS ORDERED: POTASSIUM CHLORIDE LIQ 20 MEQ UDC PO PRN (06:27)
[2018-12-22] MEDS ORDERED: KLOR-CON PO PRN (06:27)
[2018-12-22 06:50] LABS: PLATELET MORPHOLOGY COMMENT NORMAL (NORMAL)
[2018-12-22 07:28] LABS: FRACTIONATED INSPIRED OXYGEN 21
[2018-12-22] MEDS: NORVASC TAB 5 MG PO SCH (08:53)
[2018-12-22] MEDS: COZAAR PO SCH (08:53)
[2018-12-22] MEDS: K-DUR TAB 20 MEQ PO PRN (08:54)
[2018-12-22] MEDS: PEPCID 20 MG IV PREMIX* 20 MG/50 ML BAG IV SCH ×2 (16:30→20:42)
[2018-12-22] MEDS: HumuLIN R SUBCUT PRN ×2 (17:36→21:21)
[2018-12-22] MEDS: PROTONIX TAB 40 MG PO SCH (20:42)
[2018-12-22] MEDS: SNACK - Diabetic Appropriate PO SCH (20:46)
--- NOTE | 2018-12-22 22:49 | PCM.PROG ---
Progress Note - Progress Note for Day of Date of Exam: 12/21/18 - Subjective Subjective: WAS ADMITTED FOR INTRACTABLE NAUSEA OR VOMITING AND ABDOMINAL PAIN. HE HAS A HISTORY OF DIABETIC GASTROPARESIS AND IS NON-COMPLIANT WITH A LIQUID/FULL LIQUID DIET. HE CONTINUES WITH NAUSEA AND VOMITING TODAY. ON EXAMINATION, HEART IS REGULAR IN RATE AND RHYTHM. BILATERAL LUNGS ARE CLEAR TO AUSCULTATION. ABDOMEN IS ROUND, SOFT, AND NOTED WITH MILD, DIFFUSE TENDERNESS. HYPERACTIVE BOWEL SOUNDS NOTED. HIS VITALS THIS MORNING ARE 98.8-116-20-97%-185/107. LABS WERE OBTAINED. ABNORMAL LAB VALUES INCLUDE THE FOLLOWING: RBC 4.27, HGB 10.5, HCT 32.6, BUN 27, GLUCOSE 302, CALCIUM 8.3, AST 12, ALBUMIN 3.2. HE IS CURRENTLY RECEIVING NORMAL SALINE AT 75ML/HR, ZOFRAN COCKTAIL, HUMULIN R SLIDING SCALE, DILAUDID 2MG IV Q4H PRN, AND HIS HOME MEDICATIONS WERE RESUMED. WE WILL CONTINUE WITH CURRENT PLAN OF CARE TODAY AND OBTAIN A SERUM ACETONE AND ABG. OTHERWISE, WE WILL FOLLOW UP WITH AM LABS AND CONTINUE TO MONITOR. - Past Medical Family Social History Past Med/Fam/Surg Hx: No changes since H&P Allergies: Allergies codeine Allergy (Verified 12/03/18 15:51) morphine Allergy (Verified 12/03/18 15:51) - Review of Systems ROS: No change since H&P - Vital Signs and I&O's Vital Signs: Temperature 98.5 F Pulse Rate [Left Brachial] 109 Pulse Rate 114 Respiratory Rate 20 Blood Pressure [Right Arm] 185/107 Blood Pressure [Left Arm] 156/99 Blood Pressure [Left Radial 160/102 Artery] Blood Pressure 210/102 O2 Sat by Pulse Oximetry 100 Intake and Output: Intake & Output 12/20/18 12/21/18 12/22/18 12/23/18 11:59 11:59 11:59 11:59 Intake Total 800 / 800 1460 / 1460 2810 / 2810 1306 / 1306 Output Total 100 / 100 Balance 700 / 700 1460 / 1460 2810 / 2810 1306 / 1306 - Physical Exam Oriented: Normal Eyes: Normal Ear: Normal Nose: Normal Throat: Normal Respiratory: Generalized, Diminished Cardiovascular: Tachycardia. negative: S3, S4, Murmur : Normal Auscultation: Bowel Sounds: Normal Palpation: Normal Tenderness: Diffuse, Moderate. negative: Rebound, Guarding, Rigidity Skin: Normal Musculoskeletal: Normal Psychiatric: Normal Mood Description: Calm Affect: Normal Speech Pattern: Clear, Appropriate - Laboratory and Diagnostics Result Diagrams: 12/22/18 05:07 12/22/18 05:07 Labs: Laboratory WBC 7.5 X10^3/uL (3.6-10.0) 12/22/18 05:07 RBC 4.01 X10^6/uL (4.7-6.0) L 12/22/18 05:07 Hgb 9.7 g/dL (13.5-18.0) L 12/22/18 05:07 Hct 30.5 % (42.0-54.0) L 12/22/18 05:07 MCV 75.9 fL (80.0-100.0) L 12/22/18 05:07 MCH 24.2 pg (27.0-34.0) L 12/22/18 05:07 MCHC 31.9 g/dL (33.0-35.0) L 12/22/18 05:07 RDW 16.6 % (11.6-16.5) H 12/22/18 05:07 Plt Count 255 X10^3/uL (150.0-450.0) 12/22/18 05:07 Plt Count Comment Adequate (ADEQUATE) 12/22/18 05:07 MPV 8.9 fL (7.4-11.0) 12/22/18 05:07 Neut % (Auto) 62.3 % (42.0-75.0) 12/22/18 05:07 Lymph % (Auto) 27.3 % (21.0-51.0) 12/22/18 05:07 [place] % (Auto) 9.6 % (0.0-13.0) 12/22/18 05:07 Eos % (Auto) 0.1 % (0.9-2.9) L 12/22/18 05:07 Baso % (Auto) 0.7 % (0.2-1.0) 12/22/18 05:07 Neut # (Auto) 4.6 x10^3/uL (2.2-4.8) 12/22/18 05:07 Lymph # (Auto) 2.0 X10^3/uL (1.3-2.9) 12/22/18 05:07 [place] # (Auto) 0.7 x10^3/uL (0.3-0.8) 12/22/18 05:07 Eos # (Auto) 0.0 x10^3/uL (0.0-0.2) 12/22/18 05:07 Baso # (Auto) 0.1 X10^3/uL (0.0-0.1) 12/22/18 05:07 Absolute Nucleated RBC 0.1 /100WBC 12/22/18 05:07 Total Counted 100 12/20/18 04:45 Neutrophils % (Manual) 95 % (39-76) H 12/20/18 04:45 Band Neutrophils % 4 % (0-10) 12/19/18 07:48 Lymphocytes % (Manual) 5 % (13-43) L 12/20/18 04:45 Plt Morphology Comment Normal (NORMAL) 12/22/18 05:07 RBC Morphology Normal (NORMAL) 12/22/18 05:07 Sample Site Rr 12/21/18 10:53 ABG pH 7.420 (7.35-7.45) 12/21/18 10:53 ABG pCO2 38.0 mmHg (35.0-45.0) 12/21/18 10:53 ABG pO2 50.0 mmHg (80.0-100.0) L 12/21/18 10:53 ABG HCO3 24.6 mmol/L (22-26) 12/21/18 10:53 ABG O2 Saturation 86.0 % (90-100) L 12/21/18 10:53 ABG Base Excess 0.3 mmol/L (-2.0-2.0) 12/21/18 10:53 Wagn Test Pos 12/21/18 10:53 A-a Gradient Not Reportable 12/21/18 10:53 FiO2 21 12/21/18 10:53 Blood Gas Comments Les well cb 12/21/18 10:53 Sodium 140 mmol/L (136-145) 12/22/18 05:07 Corrected Sodium 141 mmol/L (136-145) 12/22/18 05:07 Potassium 3.8 mmol/L (3.5-5.1) 12/22/18 05:07 Chloride 106 mmol/L (98-107) 12/22/18 05:07 Carbon Dioxide 25.4 mmol/L (21-32) 12/22/18 05:07 BUN 23 mg/dL (7-18) H 12/22/18 05:07 Creatinine 0.95 mg/dL (0.70-1.30) 12/22/18 05:07 Est GFR (MDRD) Af Amer > 60 (>60) 12/22/18 05:07 Est GFR (MDRD) Non-Af > 60 (>60) 12/22/18 05:07 Glucose 142 mg/dL (65-99) H 12/22/18 05:07 POC Glucose (mg/dL) 202 mg/dL (65-99) H 12/22/18 11:30 Calcium 8.5 mg/dL (8.5-10.1) 12/22/18 05:07 Corrected Calcium 9.5 mg/dL (8.5-10.1) 12/22/18 05:07 Magnesium 2.4 mg/dL (1.7-2.9) 12/22/18 05:07 Total Bilirubin 0.70 mg/dL (0.2-1.0) 12/22/18 05:07 AST 19 Units/L (15-37) 12/22/18 05:07 ALT 13 Units/L (12-78) 12/22/18 05:07 Alkaline Phosphatase 93 Units/L (46-116) 12/22/18 05:07 Total Protein 6.8 g/dL (6.4-8.2) 12/22/18 05:07 Albumin 2.8 g/dL (3.4-5.0) L 12/22/18 05:07 Globulin 4.0 g/dL (2.5-4.5) 12/22/18 05:07 Albumin/Globulin Ratio 0.7 Ratio (1.1-2.1) L 12/22/18 05:07 Amylase 50 Units/L (25-115) 12/22/18 05:07 Lipase 112 Units/L (73-393) 12/22/18 05:07 Specimen Type Random urine 12/19/18 08:14 Urine Color Yellow (YELLOW) 12/19/18 08:14 Urine Appearance Clear (CLEAR) 12/19/18 08:14 Urine pH 6.0 (5.0 - 8.0) 12/19/18 08:14 Ur Specific [place] 1.010 (1.000-1.030) 12/19/18 08:14 Urine Protein 3+ (NEGATIVE) 12/19/18 08:14 Urine Glucose (UA) 4+ (NEGATIVE) 12/19/18 08:14 Urine Ketones 3+ (NEGATIVE) 12/19/18 08:14 Urine Occult Blood 3+ (NEGATIVE) 12/19/18 08:14 Urine Nitrite Negative (NEGATIVE) 12/19/18 08:14 Urine Bilirubin Negative (NEGATIVE) 12/19/18 08:14 Urine Urobilinogen Normal (NORMAL) 12/19/18 08:14 Ur Leukocyte Esterase Negative (NEGATIVE) 12/19/18 08:14 Urine RBC 0-2 /HPF (NONE SEEN) 12/19/18 08:14 Urine WBC None seen /HPF (NONE SEEN) 12/19/18 08:14 Ur Squamous Epith Cells Few /HPF (NEGATIVE) 12/19/18 08:14 Urine Bacteria Negative /HPF (NEGATIVE) 12/19/18 08:14 Ur Culture Indicated? No/not indicated 12/19/18 08:14 Acetone, Semi-Quant Negative (NEGATIVE) 12/22/18 05:07 - Plan (1) Diabetic gastroparesis Status: Acute Plan: IV FLUIDS, ZOFRAN COCKTAIL, MONITOR OTBS, HUMIN R SLIDING SCALE, CONTINUE TO MONITOR (2) Hypertension, uncontrolled Status: Acute Plan: CONTINUE HOME MEDS (3) Intractable vomiting with nausea Status: Acute Qualifiers: Vomiting type: unspecified Plan: ZOFRAN COCKTAIL, CONTINUE TO MONITOR
[2018-12-23] MEDS: NS 1000 ML 1,000 ML IV SCH ×2 (02:34→11:33)
[2018-12-23 06:17] LABS: BASOPHILS % (AUTO) 0.2 % (0.2-1.0); EOSINOPHILS % (AUTO) 0.3 % (0.9-2.9); HEMATOCRIT 34.9 % (42.0-54.0); HEMOGLOBIN 11.4 g/dL (13.5-18.0); LYMPHOCYTES # (AUTO) 1.7 X10^3/uL (1.3-2.9); LYMPHOCYTES % (AUTO) 27.7 % (21.0-51.0); MEAN CORPUSCULAR HEMOGLOBIN 24.4 pg (27.0-34.0); MEAN CORPUSCULAR HGB CONC 32.7 g/dL (33.0-35.0); MEAN CORPUSCULAR VOLUME 74.6 fL (80.0-100.0); MEAN PLATELET VOLUME 8.3 fL (7.4-11.0); MONOCYTES # (AUTO) 0.7 x10^3/uL (0.3-0.8); MONOCYTES % (AUTO) 10.8 % (0.0-13.0); NEUTROPHILS # (AUTO) 3.8 x10^3/uL (2.2-4.8); PLATELET COUNT 332 X10^3/uL (150.0-450.0); RED BLOOD COUNT 4.68 X10^6/uL (4.7-6.0); RED CELL DISTRIBUTION WIDTH 16.2 % (11.6-16.5); WHITE BLOOD COUNT 6.2 X10^3/uL (3.6-10.0)
[2018-12-23 06:54] LABS: ALANINE AMINOTRANSFERASE 21 Units/L (12-78); ALKALINE PHOSPHATASE 97 Units/L (46-116); AMYLASE 50 Units/L (25-115); ASPARTATE AMINO TRANSFERASE 21 Units/L (15-37); BLOOD UREA NITROGEN 18 mg/dL (7-18); CARBON DIOXIDE 25.3 mmol/L (21-32); CHLORIDE 101 mmol/L (98-107); COR CA(FOR HYPOALB) 8.8 mg/dL (8.5-10.1); COR NA(FOR HYPERGLY) 138 mmol/L (136-145); CREATININE 0.95 mg/dL (0.70-1.30); LIPASE 106 Units/L (73-393); SODIUM 136 mmol/L (136-145); TOTAL PROTEIN 7.3 g/dL (6.4-8.2); eGFR NON BLACK RACES > 60 (>60)
[2018-12-23 07:03] LABS: PLATELET MORPHOLOGY COMMENT NORMAL (NORMAL)
[2018-12-23] MEDS: PROTONIX TAB 40 MG PO SCH ×2 (08:49→21:07)
[2018-12-23] MEDS: PEPCID 20 MG IV PREMIX* 20 MG/50 ML BAG IV SCH ×2 (08:49→21:07)
[2018-12-23] MEDS: COZAAR PO SCH (08:49)
[2018-12-23] MEDS: NORVASC TAB 5 MG PO SCH (08:49)
[2018-12-23] MEDS: HumuLIN R SUBCUT PRN ×3 (11:51→21:06)
[2018-12-23] MEDS: DILAUDID INJ IVP PRN (13:57)
[2018-12-23] MEDS: ZOFRAN INJ 4 MG VIAL IVP PRN (18:09)
--- NOTE | 2018-12-23 20:11 | PCM.PROG ---
Progress Note - Progress Note for Day of Date of Exam: 12/22/18 - Subjective Subjective: WAS ADMITTED FOR INTRACTABLE NAUSEA OR VOMITING AND ABDOMINAL PAIN. HE HAS A HISTORY OF DIABETIC GASTROPARESIS. HE CONTINUES WITH NAUSEA AND VOMITING TODAY. HE IS ON A CLEAR LIQUID DIET IS TOLERATING WELL TODAY. ON EXAMINATION, HEART IS REGULAR IN RATE AND RHYTHM. BILATERAL LUNGS ARE CLEAR TO AUSCULTATION. ABDOMEN IS ROUND, SOFT, AND NOTED WITH MILD, DIFFUSE TENDERNESS. HYPERACTIVE BOWEL SOUNDS NOTED. HIS VITALS THIS MORNING ARE 98.-87-18-99%-145/86. LABS WERE OBTAINED. ABNORMAL LAB VALUES INCLUDE THE FOLLOWING: RBC 4.01, HGB 9.7, HCT 30.5, BUN 23, GLUCOSE 142, ALBUMIN 2.8, ACETONES NEGATIVE. HE IS CURRENTLY RECEIVING NORMAL SALINE AT 75ML/HR, ZOFRAN COCKTAIL, HUMULIN R SLIDING SCALE, DILAUDID 2MG IV Q4H PRN, AND HIS HOME MEDICATIONS WERE RESUMED. WE WILL CONTINUE WITH CURRENT PLAN OF CARE TODAY AND START PEPCID 20MG IV Q12H. OTHERWISE, WE WILL FOLLOW UP WITH AM LABS AND CONTINUE TO MONITOR. - Past Medical Family Social History Past Med/Fam/Surg Hx: No changes since H&P Allergies: Allergies codeine Allergy (Verified 12/03/18 15:51) morphine Allergy (Verified 12/03/18 15:51) - Review of Systems ROS: No change since H&P - Vital Signs and I&O's Vital Signs: Temperature 98.3 F Pulse Rate [Left Brachial] 104 Pulse Rate 114 Respiratory Rate 20 Blood Pressure [Right Arm] 185/107 Blood Pressure [Left Arm] 174/94 Blood Pressure [Left Radial 160/102 Artery] Blood Pressure 210/102 O2 Sat by Pulse Oximetry 99 Intake and Output: Intake & Output 12/21/18 12/22/18 12/23/18 12/24/18 11:59 11:59 11:59 11:59 Intake Total 1460 / 1460 2810 / 2810 2656 / 2656 400 / 400 Balance 1460 / 1460 2810 / 2810 2656 / 2656 400 / 400 - Physical Exam Oriented: Normal Eyes: Normal Ear: Normal Nose: Normal Throat: Normal Respiratory: Generalized, Diminished Cardiovascular: Tachycardia. negative: S3, S4, Murmur : Normal Auscultation: Bowel Sounds: Normal Tenderness: Diffuse, Moderate. negative: Rebound, Guarding, Rigidity Skin: Normal Musculoskeletal: Normal Psychiatric: Normal Mood Description: Calm Affect: Normal Speech Pattern: Clear, Appropriate - Laboratory and Diagnostics Result Diagrams: 12/23/18 05:30 12/23/18 05:30 Labs: Laboratory WBC 6.2 X10^3/uL (3.6-10.0) 12/23/18 05:30 RBC 4.68 X10^6/uL (4.7-6.0) L 12/23/18 05:30 Hgb 11.4 g/dL (13.5-18.0) L 12/23/18 05:30 Hct 34.9 % (42.0-54.0) L 12/23/18 05:30 MCV 74.6 fL (80.0-100.0) L 12/23/18 05:30 MCH 24.4 pg (27.0-34.0) L 12/23/18 05:30 MCHC 32.7 g/dL (33.0-35.0) L 12/23/18 05:30 RDW 16.2 % (11.6-16.5) 12/23/18 05:30 Plt Count 332 X10^3/uL (150.0-450.0) 12/23/18 05:30 Plt Count Comment Adequate (ADEQUATE) 12/23/18 05:30 MPV 8.3 fL (7.4-11.0) 12/23/18 05:30 Neut % (Auto) 61.0 % (42.0-75.0) 12/23/18 05:30 Lymph % (Auto) 27.7 % (21.0-51.0) 12/23/18 05:30 [place] % (Auto) 10.8 % (0.0-13.0) 12/23/18 05:30 Eos % (Auto) 0.3 % (0.9-2.9) L 12/23/18 05:30 Baso % (Auto) 0.2 % (0.2-1.0) 12/23/18 05:30 Neut # (Auto) 3.8 x10^3/uL (2.2-4.8) 12/23/18 05:30 Lymph # (Auto) 1.7 X10^3/uL (1.3-2.9) 12/23/18 05:30 [place] # (Auto) 0.7 x10^3/uL (0.3-0.8) 12/23/18 05:30 Eos # (Auto) 0.0 x10^3/uL (0.0-0.2) 12/23/18 05:30 Baso # (Auto) 0.0 X10^3/uL (0.0-0.1) 12/23/18 05:30 Absolute Nucleated RBC 0.1 /100WBC 12/23/18 05:30 Total Counted 100 12/20/18 04:45 Neutrophils % (Manual) 95 % (39-76) H 12/20/18 04:45 Band Neutrophils % 4 % (0-10) 12/19/18 07:48 Lymphocytes % (Manual) 5 % (13-43) L 12/20/18 04:45 Plt Morphology Comment Normal (NORMAL) 12/23/18 05:30 RBC Morphology Normal (NORMAL) 12/23/18 05:30 Sample Site Rr 12/21/18 10:53 ABG pH 7.420 (7.35-7.45) 12/21/18 10:53 ABG pCO2 38.0 mmHg (35.0-45.0) 12/21/18 10:53 ABG pO2 50.0 mmHg (80.0-100.0) L 12/21/18 10:53 ABG HCO3 24.6 mmol/L (22-26) 12/21/18 10:53 ABG O2 Saturation 86.0 % (90-100) L 12/21/18 10:53 ABG Base Excess 0.3 mmol/L (-2.0-2.0) 12/21/18 10:53 Wang Test Pos 12/21/18 10:53 A-a Gradient Not Reportable 12/21/18 10:53 FiO2 21 12/21/18 10:53 Blood Gas Comments Les well cb 12/21/18 10:53 Sodium 136 mmol/L (136-145) 12/23/18 05:30 Corrected Sodium 138 mmol/L (136-145) 12/23/18 05:30 Potassium 3.9 mmol/L (3.5-5.1) 12/23/18 05:30 Chloride 101 mmol/L (98-107) 12/23/18 05:30 Carbon Dioxide 25.3 mmol/L (21-32) 12/23/18 05:30 BUN 18 mg/dL (7-18) 12/23/18 05:30 Creatinine 0.95 mg/dL (0.70-1.30) 12/23/18 05:30 Est GFR (MDRD) Af Amer > 60 (>60) 12/23/18 05:30 Est GFR (MDRD) Non-Af > 60 (>60) 12/23/18 05:30 Glucose 169 mg/dL (65-99) H 12/23/18 05:30 POC Glucose (mg/dL) 202 mg/dL (65-99) H 12/22/18 11:30 Calcium 8.0 mg/dL (8.5-10.1) L 12/23/18 05:30 Corrected Calcium 8.8 mg/dL (8.5-10.1) 12/23/18 05:30 Magnesium 2.4 mg/dL (1.7-2.9) 12/22/18 05:07 Total Bilirubin 0.70 mg/dL (0.2-1.0) 12/23/18 05:30 AST 21 Units/L (15-37) 12/23/18 05:30 ALT 21 Units/L (12-78) 12/23/18 05:30 Alkaline Phosphatase 97 Units/L (46-116) 12/23/18 05:30 Total Protein 7.3 g/dL (6.4-8.2) 12/23/18 05:30 Albumin 3.0 g/dL (3.4-5.0) L 12/23/18 05:30 Globulin 4.3 g/dL (2.5-4.5) 12/23/18 05:30 Albumin/Globulin Ratio 0.7 Ratio (1.1-2.1) L 12/23/18 05:30 Amylase 50 Units/L (25-115) 12/23/18 05:30 Lipase 106 Units/L (73-393) 12/23/18 05:30 Specimen Type Random urine 12/19/18 08:14 Urine Color Yellow (YELLOW) 12/19/18 08:14 Urine Appearance Clear (CLEAR) 12/19/18 08:14 Urine pH 6.0 (5.0 - 8.0) 12/19/18 08:14 Ur Specific [place] 1.010 (1.000-1.030) 12/19/18 08:14 Urine Protein 3+ (NEGATIVE) 12/19/18 08:14 Urine Glucose (UA) 4+ (NEGATIVE) 12/19/18 08:14 Urine Ketones 3+ (NEGATIVE) 12/19/18 08:14 Urine Occult Blood 3+ (NEGATIVE) 12/19/18 08:14 Urine Nitrite Negative (NEGATIVE) 12/19/18 08:14 Urine Bilirubin Negative (NEGATIVE) 12/19/18 08:14 Urine Urobilinogen Normal (NORMAL) 12/19/18 08:14 Ur Leukocyte Esterase Negative (NEGATIVE) 12/19/18 08:14 Urine RBC 0-2 /HPF (NONE SEEN) 12/19/18 08:14 Urine WBC None seen /HPF (NONE SEEN) 12/19/18 08:14 Ur Squamous Epith Cells Few /HPF (NEGATIVE) 12/19/18 08:14 Urine Bacteria Negative /HPF (NEGATIVE) 12/19/18 08:14 Ur Culture Indicated? No/not indicated 12/19/18 08:14 Acetone, Semi-Quant Negative (NEGATIVE) 12/23/18 05:30 - Plan (1) Diabetic gastroparesis Status: Acute Plan: IV FLUIDS, ZOFRAN COCKTAIL, MONITOR OTBS, HUMIN R SLIDING SCALE, CONTINUE TO MONITOR (2) Hypertension, uncontrolled Status: Acute Plan: CONTINUE HOME MEDS (3) Intractable vomiting with nausea Status: Acute Qualifiers: Vomiting type: unspecified Plan: ZOFRAN COCKTAIL, CONTINUE TO MONITOR
[2018-12-23] MEDS: SNACK - Diabetic Appropriate PO SCH (21:05)
[2018-12-24] MEDS: DILAUDID INJ IVP PRN ×3 (00:28→21:29)
[2018-12-24] MEDS: HumuLIN R SUBCUT PRN ×3 (05:38→21:29)
[2018-12-24 05:48] LABS: BASOPHILS % (AUTO) 0.5 % (0.2-1.0); EOSINOPHILS % (AUTO) 0.6 % (0.9-2.9); HEMATOCRIT 31.4 % (42.0-54.0); HEMOGLOBIN 10.3 g/dL (13.5-18.0); LYMPHOCYTES # (AUTO) 1.7 X10^3/uL (1.3-2.9); LYMPHOCYTES % (AUTO) 30.2 % (21.0-51.0); MEAN CORPUSCULAR HEMOGLOBIN 24.4 pg (27.0-34.0); MEAN CORPUSCULAR HGB CONC 32.9 g/dL (33.0-35.0); MEAN CORPUSCULAR VOLUME 74.4 fL (80.0-100.0); MEAN PLATELET VOLUME 8.9 fL (7.4-11.0); MONOCYTES # (AUTO) 0.6 x10^3/uL (0.3-0.8); NEUTROPHILS # (AUTO) 3.3 x10^3/uL (2.2-4.8); NEUTROPHILS % (AUTO) 58.7 % (42.0-75.0); PLATELET COUNT 289 X10^3/uL (150.0-450.0); RED BLOOD COUNT 4.22 X10^6/uL (4.7-6.0); RED CELL DISTRIBUTION WIDTH 15.9 % (11.6-16.5); WHITE BLOOD COUNT 5.7 X10^3/uL (3.6-10.0)
[2018-12-24 06:02] LABS: ALANINE AMINOTRANSFERASE 20 Units/L (12-78); ALBUMIN 2.8 g/dL (3.4-5.0); ALKALINE PHOSPHATASE 97 Units/L (46-116); AMYLASE 50 Units/L (25-115); ASPARTATE AMINO TRANSFERASE 28 Units/L (15-37); BLOOD UREA NITROGEN 12 mg/dL (7-18); CALCIUM 8.1 mg/dL (8.5-10.1); CARBON DIOXIDE 24.1 mmol/L (21-32); CHLORIDE 99 mmol/L (98-107); COR CA(FOR HYPOALB) 9.1 mg/dL (8.5-10.1); COR NA(FOR HYPERGLY) 136 mmol/L (136-145); LIPASE 106 Units/L (73-393); SODIUM 133 mmol/L (136-145); TOTAL PROTEIN 6.7 g/dL (6.4-8.2); eGFR NON BLACK RACES > 60 (>60)
[2018-12-24] MEDS: K-DUR TAB 20 MEQ PO PRN (06:16)
[2018-12-24] MEDS: ZOFRAN INJ 4 MG VIAL IVP PRN (08:12)
[2018-12-24] MEDS: PEPCID 20 MG IV PREMIX* 20 MG/50 ML BAG IV SCH ×2 (08:50→21:29)
[2018-12-24] MEDS ORDERED: DECADRON INJ PRESERVATIVE-FREE IM ONE (08:56)
[2018-12-24] MEDS ORDERED: NS 50 ML IV 50 ML ONE (08:56)
[2018-12-24] MEDS ORDERED: ATIVAN INJ 2 MG VIAL ONE (08:57)
[2018-12-24] MEDS: ZOFRAN INJ 4 MG VIAL 16 MG, ATIVAN INJ 2 MG VIAL 1 MG, DECADRON INJ 10 MG in NS 50 ML I... IV PRN (09:40)
[2018-12-24] MEDS ORDERED: NS 1000 ML 2,000 ML IV ONE (09:58)
--- NOTE | 2018-12-24 10:34 | RAD ---
Exam: Portable chest History: 48-year-old male with shortness of breath. Comparison: Previous chest radiograph from 12/19/2018. Findings: Left chest wall port is again noted with the tip of the catheter extending to the caval atrial junction. Heart size and pulmonary vasculature are normal. Minimal atelectasis is noted at the right base. Otherwise lungs are clear. No significant effusion on either side. Bony thorax is unremarkable. Impression: Stable exam with no acute cardiopulmonary abnormality seen Reported By:
[2018-12-24] MEDS: NS 1000 ML 1,000 ML IV SCH ×3 (11:50→15:34)
[2018-12-24] MEDS: COZAAR PO SCH (13:06)
[2018-12-24] MEDS: NORVASC TAB 5 MG PO SCH (13:06)
[2018-12-24] MEDS: PROTONIX TAB 40 MG PO SCH ×2 (13:07→21:28)
--- NOTE | 2018-12-24 21:14 | PCM.PROG ---
Progress Note - Progress Note for Day of Date of Exam: 12/23/18 - Subjective Subjective: WAS ADMITTED FOR INTRACTABLE NAUSEA OR VOMITING AND ABDOMINAL PAIN. HE HAS A HISTORY OF DIABETIC GASTROPARESIS. HE CONTINUES WITH NAUSEA AND VOMITING TODAY. HE IS ON A CLEAR LIQUID DIET IS TOLERATING WELL TODAY. ON EXAMINATION, HEART IS REGULAR IN RATE AND RHYTHM. BILATERAL LUNGS ARE CLEAR TO AUSCULTATION. ABDOMEN IS ROUND, SOFT, AND NOTED WITH MILD, DIFFUSE TENDERNESS. HYPERACTIVE BOWEL SOUNDS NOTED. HIS VITALS THIS MORNING ARE 98.5-94-18-99%-150/85. LABS WERE OBTAINED. ABNORMAL LAB VALUES INCLUDE THE FOLLOWING: RBC 4.68, HGB 11.4, HCT 34.9, GLUCOSE 169, CALCIUM 8.0, ALBUMIN 3.0. HE IS CURRENTLY RECEIVING NORMAL SALINE AT 75ML/HR, ZOFRAN COCKTAIL, HUMULIN R SLIDING SCALE, DILAUDID 2MG IV Q4H PRN, PEPCID IV, AND HIS HOME MEDICATIONS WERE RESUMED. WE WILL CONTINUE WITH CURRENT PLAN OF CARE TODAY AND ADVANCE DIET TO FULL LIQUIDS. OTHERWISE, WE WILL FOLLOW UP WITH AM LABS AND CONTINUE TO MONITOR. - Past Medical Family Social History Past Med/Fam/Surg Hx: No changes since H&P Allergies: Allergies codeine Allergy (Verified 12/03/18 15:51) morphine Allergy (Verified 12/03/18 15:51) - Review of Systems ROS: No change since H&P - Vital Signs and I&O's Vital Signs: Temperature 98.1 F Pulse Rate [Left Brachial] 119 Pulse Rate 114 Respiratory Rate 18 Blood Pressure [Right Arm] 185/107 Blood Pressure [Left Arm] 153/90 Blood Pressure [Left Radial 160/102 Artery] Blood Pressure 210/102 O2 Sat by Pulse Oximetry 100 Intake and Output: Intake & Output 12/22/18 12/23/18 12/24/18 12/25/18 11:59 11:59 11:59 11:59 Intake Total 2810 / 2810 2656 / 2656 2019 3195 / 3195 Balance 2810 / 2810 2656 / 2656 2019 3195 / 3195 - Physical Exam Oriented: Normal Eyes: Normal Ear: Normal Nose: Normal Throat: Normal Respiratory: Generalized, Diminished Cardiovascular: Normal. negative: S3, S4, Murmur : Normal Auscultation: Bowel Sounds: Normal Palpation: Normal Tenderness: Diffuse, Moderate. negative: Rebound, Guarding, Rigidity Skin: Normal Musculoskeletal: Normal Psychiatric: Normal Mood Description: Calm Affect: Normal Speech Pattern: Clear, Appropriate - Laboratory and Diagnostics Result Diagrams: 12/24/18 05:21 12/24/18 05:21 Labs: Laboratory WBC 5.7 X10^3/uL (3.6-10.0) 12/24/18 05:21 RBC 4.22 X10^6/uL (4.7-6.0) L 12/24/18 05:21 Hgb 10.3 g/dL (13.5-18.0) L 12/24/18 05:21 Hct 31.4 % (42.0-54.0) L 12/24/18 05:21 MCV 74.4 fL (80.0-100.0) L 12/24/18 05:21 MCH 24.4 pg (27.0-34.0) L 12/24/18 05:21 MCHC 32.9 g/dL (33.0-35.0) L 12/24/18 05:21 RDW 15.9 % (11.6-16.5) 12/24/18 05:21 Plt Count 289 X10^3/uL (150.0-450.0) 12/24/18 05:21 Plt Count Comment Adequate (ADEQUATE) 12/23/18 05:30 MPV 8.9 fL (7.4-11.0) 12/24/18 05:21 Neut % (Auto) 58.7 % (42.0-75.0) 12/24/18 05:21 Lymph % (Auto) 30.2 % (21.0-51.0) 12/24/18 05:21 [place] % (Auto) 10.0 % (0.0-13.0) 12/24/18 05:21 Eos % (Auto) 0.6 % (0.9-2.9) L 12/24/18 05:21 Baso % (Auto) 0.5 % (0.2-1.0) 12/24/18 05:21 Neut # (Auto) 3.3 x10^3/uL (2.2-4.8) 12/24/18 05:21 Lymph # (Auto) 1.7 X10^3/uL (1.3-2.9) 12/24/18 05:21 [place] # (Auto) 0.6 x10^3/uL (0.3-0.8) 12/24/18 05:21 Eos # (Auto) 0.0 x10^3/uL (0.0-0.2) 12/24/18 05:21 Baso # (Auto) 0.0 X10^3/uL (0.0-0.1) 12/24/18 05:21 Absolute Nucleated RBC 0.0 /100WBC 12/24/18 05:21 Total Counted 100 12/20/18 04:45 Neutrophils % (Manual) 95 % (39-76) H 12/20/18 04:45 Band Neutrophils % 4 % (0-10) 12/19/18 07:48 Lymphocytes % (Manual) 5 % (13-43) L 12/20/18 04:45 Plt Morphology Comment Normal (NORMAL) 12/23/18 05:30 RBC Morphology Normal (NORMAL) 12/23/18 05:30 Sample Site Rr 12/21/18 10:53 ABG pH 7.420 (7.35-7.45) 12/21/18 10:53 ABG pCO2 38.0 mmHg (35.0-45.0) 12/21/18 10:53 ABG pO2 50.0 mmHg (80.0-100.0) L 12/21/18 10:53 ABG HCO3 24.6 mmol/L (22-26) 12/21/18 10:53 ABG O2 Saturation 86.0 % (90-100) L 12/21/18 10:53 ABG Base Excess 0.3 mmol/L (-2.0-2.0) 12/21/18 10:53 Wang Test Pos 12/21/18 10:53 A-a Gradient Not Reportable 12/21/18 10:53 FiO2 21 12/21/18 10:53 Blood Gas Comments Les well cb 12/21/18 10:53 Sodium 133 mmol/L (136-145) L 12/24/18 05:21 Corrected Sodium 136 mmol/L (136-145) 12/24/18 05:21 Potassium 3.6 mmol/L (3.5-5.1) 12/24/18 05:21 Chloride 99 mmol/L (98-107) 12/24/18 05:21 Carbon Dioxide 24.1 mmol/L (21-32) 12/24/18 05:21 BUN 12 mg/dL (7-18) 12/24/18 05:21 Creatinine 0.90 mg/dL (0.70-1.30) 12/24/18 05:21 Est GFR (MDRD) Af Amer > 60 (>60) 12/24/18 05:21 Est GFR (MDRD) Non-Af > 60 (>60) 12/24/18 05:21 Glucose 233 mg/dL (65-99) H 12/24/18 05:21 POC Glucose (mg/dL) 362 mg/dL (65-99) H 12/24/18 20:19 Calcium 8.1 mg/dL (8.5-10.1) L 12/24/18 05:21 Corrected Calcium 9.1 mg/dL (8.5-10.1) 12/24/18 05:21 Magnesium 2.4 mg/dL (1.7-2.9) 12/22/18 05:07 Total Bilirubin 0.50 mg/dL (0.2-1.0) 12/24/18 05:21 AST 28 Units/L (15-37) 12/24/18 05:21 ALT 20 Units/L (12-78) 12/24/18 05:21 Alkaline Phosphatase 97 Units/L (46-116) 12/24/18 05:21 Total Protein 6.7 g/dL (6.4-8.2) 12/24/18 05:21 Albumin 2.8 g/dL (3.4-5.0) L 12/24/18 05:21 Globulin 3.9 g/dL (2.5-4.5) 12/24/18 05:21 Albumin/Globulin Ratio 0.7 Ratio (1.1-2.1) L 12/24/18 05:21 Amylase 50 Units/L (25-115) 12/24/18 05:21 Lipase 106 Units/L (73-393) 12/24/18 05:21 Specimen Type Random urine 12/19/18 08:14 Urine Color Yellow (YELLOW) 12/19/18 08:14 Urine Appearance Clear (CLEAR) 12/19/18 08:14 Urine pH 6.0 (5.0 - 8.0) 12/19/18 08:14 Ur Specific [place] 1.010 (1.000-1.030) 12/19/18 08:14 Urine Protein 3+ (NEGATIVE) 12/19/18 08:14 Urine Glucose (UA) 4+ (NEGATIVE) 12/19/18 08:14 Urine Ketones 3+ (NEGATIVE) 12/19/18 08:14 Urine Occult Blood 3+ (NEGATIVE) 12/19/18 08:14 Urine Nitrite Negative (NEGATIVE) 12/19/18 08:14 Urine Bilirubin Negative (NEGATIVE) 12/19/18 08:14 Urine Urobilinogen Normal (NORMAL) 12/19/18 08:14 Ur Leukocyte Esterase Negative (NEGATIVE) 12/19/18 08:14 Urine RBC 0-2 /HPF (NONE SEEN) 12/19/18 08:14 Urine WBC None seen /HPF (NONE SEEN) 12/19/18 08:14 Ur Squamous Epith Cells Few /HPF (NEGATIVE) 12/19/18 08:14 Urine Bacteria Negative /HPF (NEGATIVE) 12/19/18 08:14 Ur Culture Indicated? No/not indicated 12/19/18 08:14 Acetone, Semi-Quant Negative (NEGATIVE) 12/23/18 05:30 - Plan (1) Diabetic gastroparesis Status: Acute Plan: IV FLUIDS, ZOFRAN COCKTAIL, MONITOR OTBS, HUMIN R SLIDING SCALE, CONTINUE TO MONITOR (2) Hypertension, uncontrolled Status: Acute Plan: CONTINUE HOME MEDS (3) Intractable vomiting with nausea Status: Acute Qualifiers: Vomiting type: unspecified Plan: ZOFRAN COCKTAIL, CONTINUE TO MONITOR
[2018-12-24] MEDS: SNACK - Diabetic Appropriate PO SCH (21:37)
[2018-12-25 05:38] LABS: BASOPHILS % (AUTO) 0.7 % (0.2-1.0); EOSINOPHILS % (AUTO) 0.5 % (0.9-2.9); HEMATOCRIT 31.9 % (42.0-54.0); HEMOGLOBIN 10.4 g/dL (13.5-18.0); LYMPHOCYTES # (AUTO) 1.4 X10^3/uL (1.3-2.9); LYMPHOCYTES % (AUTO) 22.5 % (21.0-51.0); MEAN CORPUSCULAR HEMOGLOBIN 24.4 pg (27.0-34.0); MEAN CORPUSCULAR HGB CONC 32.7 g/dL (33.0-35.0); MEAN CORPUSCULAR VOLUME 74.7 fL (80.0-100.0); MEAN PLATELET VOLUME 8.9 fL (7.4-11.0); MONOCYTES # (AUTO) 0.6 x10^3/uL (0.3-0.8); MONOCYTES % (AUTO) 9.9 % (0.0-13.0); NEUTROPHILS # (AUTO) 4.2 x10^3/uL (2.2-4.8); NEUTROPHILS % (AUTO) 66.4 % (42.0-75.0); PLATELET COUNT 295 X10^3/uL (150.0-450.0); RED BLOOD COUNT 4.28 X10^6/uL (4.7-6.0); WHITE BLOOD COUNT 6.4 X10^3/uL (3.6-10.0)
[2018-12-25] MEDS: NS 1000 ML 1,000 ML IV SCH ×3 (05:38→18:01)
[2018-12-25] MEDS: HumuLIN R SUBCUT PRN ×3 (05:39→16:55)
[2018-12-25 05:58] LABS: ALANINE AMINOTRANSFERASE 15 Units/L (12-78); ALBUMIN 2.9 g/dL (3.4-5.0); ALKALINE PHOSPHATASE 101 Units/L (46-116); AMYLASE 70 Units/L (25-115); ASPARTATE AMINO TRANSFERASE 11 Units/L (15-37); BLOOD UREA NITROGEN 16 mg/dL (7-18); CALCIUM 8.5 mg/dL (8.5-10.1); CARBON DIOXIDE 21.6 mmol/L (21-32); CHLORIDE 98 mmol/L (98-107); COR CA(FOR HYPOALB) 9.4 mg/dL (8.5-10.1); COR NA(FOR HYPERGLY) 135 mmol/L (136-145); CREATININE 0.98 mg/dL (0.70-1.30); LIPASE 125 Units/L (73-393); SODIUM 132 mmol/L (136-145); eGFR NON BLACK RACES > 60 (>60)
[2018-12-25 06:07] LABS: PLATELET MORPHOLOGY COMMENT NORMAL (NORMAL)
[2018-12-25] MEDS: COZAAR PO SCH (08:38)
[2018-12-25] MEDS: NORVASC TAB 5 MG PO SCH (08:38)
[2018-12-25] MEDS: PEPCID 20 MG IV PREMIX* 20 MG/50 ML BAG IV SCH ×2 (08:38→22:00)
[2018-12-25] MEDS: PROTONIX TAB 40 MG PO SCH ×2 (08:38→22:00)
[2018-12-25] MEDS: ZOFRAN INJ 4 MG VIAL IVP PRN (09:47)
[2018-12-25] MEDS: DILAUDID INJ IVP PRN (09:47)
[2018-12-25] MEDS: ZOFRAN INJ 4 MG VIAL 16 MG, ATIVAN INJ 2 MG VIAL 1 MG, DECADRON INJ 10 MG in NS 50 ML I... IV PRN ×2 (10:18→17:18)
[2018-12-25] MEDS ORDERED: NS 50 ML IV 50 ML ONE (17:12)
[2018-12-25] MEDS ORDERED: DECADRON INJ PRESERVATIVE-FREE IM ONE (17:12)
[2018-12-25] MEDS ORDERED: ATIVAN INJ 2 MG VIAL ONE (17:13)
[2018-12-25] MEDS: K-DUR TAB 20 MEQ PO PRN (18:16)
[2018-12-26] MEDS: SNACK - Diabetic Appropriate PO SCH (01:38)
[2018-12-26] MEDS: NS 1000 ML 1,000 ML IV SCH ×2 (02:00→09:24)
[2018-12-26] MEDS ORDERED: DECADRON INJ PRESERVATIVE-FREE IM ONE (03:14)
[2018-12-26] MEDS ORDERED: NS 50 ML IV 50 ML ONE (03:14)
[2018-12-26] MEDS ORDERED: ATIVAN INJ 2 MG VIAL ONE (03:15)
[2018-12-26 05:32] LABS: BASOPHILS % (AUTO) 0.2 % (0.2-1.0); HEMATOCRIT 31.3 % (42.0-54.0); HEMOGLOBIN 10.5 g/dL (13.5-18.0); LYMPHOCYTES # (AUTO) 0.6 X10^3/uL (1.3-2.9); LYMPHOCYTES % (AUTO) 12.8 % (21.0-51.0); MEAN CORPUSCULAR HEMOGLOBIN 24.8 pg (27.0-34.0); MEAN CORPUSCULAR HGB CONC 33.6 g/dL (33.0-35.0); MONOCYTES # (AUTO) 0.2 x10^3/uL (0.3-0.8); NEUTROPHILS # (AUTO) 3.8 x10^3/uL (2.2-4.8); PLATELET COUNT 331 X10^3/uL (150.0-450.0); RED BLOOD COUNT 4.22 X10^6/uL (4.7-6.0); RED CELL DISTRIBUTION WIDTH 15.9 % (11.6-16.5); WHITE BLOOD COUNT 4.7 X10^3/uL (3.6-10.0)
[2018-12-26 05:44] LABS: ALANINE AMINOTRANSFERASE 17 Units/L (12-78); ALBUMIN 3.1 g/dL (3.4-5.0); ALKALINE PHOSPHATASE 96 Units/L (46-116); AMYLASE 52 Units/L (25-115); ASPARTATE AMINO TRANSFERASE 8 Units/L (15-37); BLOOD UREA NITROGEN 18 mg/dL (7-18); CALCIUM 8.5 mg/dL (8.5-10.1); CARBON DIOXIDE 23.4 mmol/L (21-32); CHLORIDE 99 mmol/L (98-107); COR CA(FOR HYPOALB) 9.2 mg/dL (8.5-10.1); COR NA(FOR HYPERGLY) 135 mmol/L (136-145); CREATININE 1.02 mg/dL (0.70-1.30); LIPASE 69 Units/L (73-393); SODIUM 132 mmol/L (136-145); TOTAL PROTEIN 7.2 g/dL (6.4-8.2); eGFR NON BLACK RACES > 60 (>60)
[2018-12-26 05:57] LABS: PLATELET MORPHOLOGY COMMENT NORMAL (NORMAL)
[2018-12-26] MEDS: HumuLIN R SUBCUT PRN (07:04)
[2018-12-26] MEDS: PROTONIX TAB 40 MG PO SCH (08:25)
[2018-12-26] MEDS: NORVASC TAB 5 MG PO SCH (08:25)
[2018-12-26] MEDS: PEPCID 20 MG IV PREMIX* 20 MG/50 ML BAG IV SCH (08:25)
[2018-12-26] MEDS: COZAAR PO SCH (08:25)
[2018-12-26 09:14] VITALS: BP 144/84
[2018-12-26] MEDS ORDERED: HEPARIN SODIUM INJ 5000 UNITS IVP ONE (09:24)
[2018-12-26] MEDS ORDERED: HEPARIN SODIUM INJ 5000 UNITS ONE (09:25)
== END 2018-12-26 09:46 | disposition home or self-care (01) | DRG 74 ==
LOC: MED/SURG 07:29 → ER 07:29 → OBSVTOIN 09:03 → MED/SURG 10:03
PROVIDERS: ADMIT Internal Medicine; ATTEND Internal Medicine
DX: K31.84 Gastroparesis; R06.02 Shortness of breath; E78.2 Mixed hyperlipidemia; R10.84 Generalized abdominal pain; R11.2 Nausea with vomiting, unspecified; E11.65 Type 2 diabetes mellitus with hyperglycemia; I25.10 Atherosclerotic heart disease of native coronary artery without angina pectoris; Z79.4 Long term (current) use of insulin; I10 Essential (primary) hypertension; E11.43 Type 2 diabetes mellitus with diabetic autonomic (poly)neuropathy
CPT/HCPCS: 36415; 36591; 36600; 71010; 71045; 80053; 81001; 82009; 82150; 82803; 83690; 83735; 85025; 86140; 94760; 96365; 96367; 96374; 96375; 99238; 99283; 99284; A4216; A4222; S0028; J0780; J1100; J1170; J1642; J1644; J1815; J2060; J2175; J2405; J7030; J7050; J7120

== ENCOUNTER 2019-01-09 16:53 | Inpatient (IN) ==
[~2019-01-09 16:53] MED LIST: NIFEDIPINE CAP 10 MG ONE
[2019-01-09] MEDS ORDERED: ZOFRAN INJ 4 MG VIAL 16 MG, ATIVAN INJ 2 MG VIAL 1 MG, DECADRON INJ 10 MG in NS 50 ML I... IV ONE (17:03)
[2019-01-09] MEDS ORDERED: TORADOL 30 MG VIAL IVP ONE (17:04)
[2019-01-09] MEDS ORDERED: NS 1000 ML 1,000 ML IV ONE (17:04)
--- NOTE | 2019-01-09 17:08 | DR.GENAD ---
HPI - Complaint/Symptoms Chief Complaint Doctors Comments: Patient is complaining of severe abdominal pain, nauea, vomiting for the past 24 hours getting progressively worst. States he is a patient of Dr. Worthington and he is a diabetic and he has not checked his glucose recently. He denies cold, cough, fever, chills, dysuria or hematuria. He denies tobacco, alcohol or drug usage. States he is having cramping abdominal pain with the pain being 10 of 10. He has not had anything for the pain today. - Nurses notes reviewed Nurses Notes Review: Yes - Source History Provided: Patient - Mode of Arrival Mode of Arrival: Ambulatory - Timing Came on: Gradually - Duration Duration: Constant How lon Duration: Days - Location Location: diffuse abdominal pain - Severity Severity: Severe - Modifying Factors Worsens:: eating Improves:: nothing PMH - PMH Past Medical History: Coronary Artery Disease, Hypertension, Dyslipidemia, Diabetes, Anemia, PUD Past Surgical History: Yes Surgical History: Cholecystectomy, Ortho Surgery, Other - Family History Family Medical History: Diabetes Mellitus, Coronary Artery Disease - Social History Do you use any recreational Drugs:: No - infectious screening Isolation: Standard ROS - Review of Systems Constitutional: No Symptoms Reported, Weakness, Loss of Appetite Eyes: No Symptoms Reported. negative: See HPI, Eye Pain, Blurred Vision, Tearing, Discharge, Photophobia, Diplopia, Other ENTM: No Symptoms Reported. negative: See HPI, Ear Pain, Ear Discharge, Pulling on Ears, Hearing Loss, Nose Pain, Nose Discharge, Epistaxis, Nose Congestion, Mouth Pain, Mouth Swelling, Loose Teeth, Drooling, Throat Pain, Throat Swelling, Ear Foreign Body, Tooth/Dental Pain Respiratoy: negative: No Symptoms Reported, See HPI, Productive Cough, Non- Productive Cough, Moist Cough, Dry Cough, Hacking Cough, Barking Cough, Brassy Cough, Orthopnea, Short of Breath, Stridor, Wheezing, Hemoptysis, Other Cardiovascular: No Symptoms Reported. negative: See HPI, Chest Pain, Edema, Palpitations, Syncope, Cyanosis, Skin Mottling, Other Gastrointestinal/Abdominal: No Symptoms Reported, Abdominal Pain, Nausea, Vomiting Genitourinary: No Symptoms Reported Neurological: No Symptoms Reported Musculoskeletal: No Symptoms Reported Integumentary: No Symptoms Reported Hematologic/Lymphatic: No Symptoms Reported. negative: See HPI, Anemia, Blood Clots, Easy Bleeding, Easy Bruising, Swollen Glands, Lymphadenopathy, Other Endocrine: No Symptoms Reported Psychiatric: No Symptoms Reported. negative: See HPI, Anxiety, Depression, Hallucinations, Excessive crying, Suicidal, Other PE - General Limitations: No Limitations General Appearance: Alert, In Distress (moderate) - Head Head Exam: Normal Inspection, Atraumatic, Normocephalic - Eyes Eye exam: Normal Appearance, PERRL, EOMI. negative: Scleral Icterus, Conjunctival Injection, Nystagmus, Miosis, Mydrasis, Periorbital Swelling, Periorbital Tenderness, Other - ENT ENT Exam: Normal Exam, Normal Oropharynx, Normal External Ear Exam, Mucous Mem branes Moist, TM's Normal Bilaterally External Ear Exam: Normal External Inspection TM/Canal Exam: Bilateral Normal Nose Exam: Normal Nose Exam Mouth Exam: Normal Inspection Throat Exam: Normal Inspection - Neck Neck Exam: Normal Inspection, Full ROM, Trachea Midline - Chest Chest Inspection: Normal Inspection, Symmetric Chest Wall Rise. negative: Tenderness, Rash, Abscess, Other - Respiratory Respiratory Exam: Normal Lung Sounds Bilat Respiratory Exam: Bilateral Clear to Auscultation - Cardiovascular Cardiovascular Exam: Regular Rate, Normal Rhythm, Normal Heart Sounds. negative: Bradycardia, Tachycardia, Irregular Rhythm, Systolic Murmur, Diastolic Murmur, Rubs, Gallop, Clicks, JVD, +S1, +S2, +S3, +S4, Other - Abdominal Exam Abdominal Exam: Normal Inspection, Normal Bowel Sounds, Soft, Tenderness, Guarding, Dimnished Bowel Sounds Abdominal Tenderness: RUQ, Epigastrium, Diffuse, Moderate - Extremities Extremities Exam: Normal Inspection, Full ROM, Tenderness, Normal Capillary Refill - Back Back Exam: Normal Inspection, Full ROM, Tenderness. negative: (R) CVA Tenderness, (L) CVA Tenderness, Muscle Spasm, Paraspinal Tenderness, Vertebral Tenderness, Rashes, (R) Sciatic Notch Tenderness, (L) Sciatic Notch Tendern, (R) Straight Leg Raise, (L) Straight Leg Raise, Other - Neurologic Neurological Exam: Alert, Oriented X3, CN II-XII Intact, Normal Gait, Reflexes Normal - Psychiatric Psychiatric Exam: Normal Affect, Normal Mood. negative: Depressed, Agitated, Anxious, Flat Affect, Manic, Homicidal Ideation, Suicidal Ideation, Other - Skin Skin Exam: Warm, Dry, Intact, Normal Color. negative: Rash, Cyanosis, Lisbet phoresis, Erythema, Pallor, Mottled, Other - Vital Signs Vitals: Temperature 98.6 F Pulse Rate 91 Respiratory Rate 18 Blood Pressure [Right Arm] 196/90 Blood Pressure [Left Arm] 197/86 Blood Pressure [Left Radial 160/102 Artery] Blood Pressure 203/103 O2 Sat by Pulse Oximetry 100 Course - Reevaluation 1st: Improved - Consultation Called: 18:21 Call Returned: 18:21 (Dr. Worthington to admit) - Education/Counseling Education/Counseling: Patient, Family Educated On: Treatment, Diagnosis, Needs for Follow Up ROR - Labs Reviewed Laboratory Results Reviewed?: Yes (All labs and x-ray results reviewed and discussed with patient) Result Diagrams: 01/09/19 17:06 01/09/19 17:06 - Labs Reviewed Laboratory: WBC 6.8 X10^3/uL (3.6-10.0) 01/09/19 17:06 RBC 4.42 X10^6/uL (4.7-6.0) L 01/09/19 17:06 Hgb 10.9 g/dL (13.5-18.0) L 01/09/19 17:06 Hct 32.9 % (42.0-54.0) L 01/09/19 17:06 MCV 74.5 fL (80.0-100.0) L 01/09/19 17:06 MCH 24.6 pg (27.0-34.0) L 01/09/19 17:06 MCHC 33.0 g/dL (33.0-35.0) 01/09/19 17:06 RDW 17.3 % (11.6-16.5) H 01/09/19 17:06 Plt Count 307 X10^3/uL (150.0-450.0) 01/09/19 17:06 Plt Count Comment Adequate (ADEQUATE) 01/09/19 17:06 MPV 8.4 fL (7.4-11.0) 01/09/19 17:06 Neut % (Auto) 70.3 % (42.0-75.0) 01/09/19 17:06 Lymph % (Auto) 22.5 % (21.0-51.0) 01/09/19 17:06 [place] % (Auto) 5.9 % (0.0-13.0) 01/09/19 17:06 Eos % (Auto) 0.1 % (0.9-2.9) L 01/09/19 17:06 Baso % (Auto) 1.2 % (0.2-1.0) H 01/09/19 17:06 Neut # (Auto) 4.8 x10^3/uL (2.2-4.8) 01/09/19 17:06 Lymph # (Auto) 1.5 X10^3/uL (1.3-2.9) 01/09/19 17:06 [place] # (Auto) 0.4 x10^3/uL (0.3-0.8) 01/09/19 17:06 Eos # (Auto) 0.0 x10^3/uL (0.0-0.2) 01/09/19 17:06 Baso # (Auto) 0.1 X10^3/uL (0.0-0.1) 01/09/19 17:06 Absolute Nucleated RBC 0.0 /100WBC 01/09/19 17:06 Plt Morphology Comment Normal (NORMAL) 01/09/19 17:06 RBC Morphology Abnormal (NORMAL) 01/09/19 17:06 Hypochromasia 1+ A 01/09/19 17:06 Poikilocytosis Slight A 01/09/19 17:06 Sodium 135 mmol/L (136-145) L 01/09/19 17:06 Corrected Sodium 142 mmol/L (136-145) 01/09/19 17:06 Potassium 4.4 mmol/L (3.5-5.1) 01/09/19 17:06 Chloride 98 mmol/L (98-107) 01/09/19 17:06 Carbon Dioxide 24.1 mmol/L (21-32) 01/09/19 17:06 BUN 21 mg/dL (7-18) H 01/09/19 17:06 Creatinine 1.43 mg/dL (0.70-1.30) H 01/09/19 17:06 Est GFR (MDRD) Af Amer > 60 (>60) 01/09/19 17:06 Est GFR (MDRD) Non-Af 57 (>60) L 01/09/19 17:06 Glucose 376 mg/dL (65-99) H 01/09/19 17:06 Calcium 9.2 mg/dL (8.5-10.1) 01/09/19 17:06 Corrected Calcium TNP 01/09/19 17:06 Total Bilirubin 0.70 mg/dL (0.2-1.0) 01/09/19 17:06 AST 14 Units/L (15-37) L 01/09/19 17:06 ALT 16 Units/L (12-78) 01/09/19 17:06 Alkaline Phosphatase 133 Units/L (46-116) H 01/09/19 17:06 Total Protein 8.4 g/dL (6.4-8.2) H 01/09/19 17:06 Albumin 4.0 g/dL (3.4-5.0) 01/09/19 17:06 Globulin 4.4 g/dL (2.5-4.5) 01/09/19 17:06 Albumin/Globulin Ratio 0.9 Ratio (1.1-2.1) L 01/09/19 17:06 Amylase 77 Units/L (25-115) 01/09/19 17:06 Lipase 213 Units/L (73-393) 01/09/19 17:06 Opioid - Opioid Risk Tool Age (Paddy box if 16-45): Yes Total: 1 Total Score Risk Category: Low Risk - Diagnosis Discharge Problem: Accelerated hypertension Abdominal pain Qualifiers: Abdominal location: generalized Qualified Code(s): R10.84 - Generalized abdominal pain N&V (nausea and vomiting) Qualifiers: Vomiting type: unspecified Vomiting Intractability: intractable Qualified Code(s): R11.2 - Nausea with vomiting, unspecified Diabetes mellitus type 1 Qualifiers: Diabetes mellitus complication status: with hyperglycemia Qualified Code(s): E10.65 - Type 1 diabetes mellitus with hyperglycemia GERD (gastroesophageal reflux disease) Qualifiers: Esophagitis presence: without esophagitis Qualified Code(s): K21.9 - Gastro- esophageal reflux disease without esophagitis - Discharge Plan Disposition: ADMITTED INPATIENT Condition: Stable - Follow ups/Referrals Follow ups/Referrals: Williams Worthington [Primary Care Provider] - 3 days - Instructions
[2019-01-09] MEDS ORDERED: DECADRON INJ ONE (17:11)
[2019-01-09] MEDS ORDERED: NS 100 ML IV 100 ML ONE (17:11)
[2019-01-09] MEDS ORDERED: NS 1000 ML 1,000 ML ONE (17:11)
[2019-01-09] MEDS ORDERED: ZOFRAN INJ 4 MG VIAL ONE (17:11)
[2019-01-09] MEDS ORDERED: ATIVAN INJ 2 MG VIAL ONE (17:12)
[2019-01-09] MEDS ORDERED: TORADOL 30 MG VIAL ONE (17:23)
[2019-01-09 17:25] LABS: ALANINE AMINOTRANSFERASE 16 Units/L (12-78); ALKALINE PHOSPHATASE 133 Units/L (46-116); AMYLASE 77 Units/L (25-115); ASPARTATE AMINO TRANSFERASE 14 Units/L (15-37); BLOOD UREA NITROGEN 21 mg/dL (7-18); CALCIUM 9.2 mg/dL (8.5-10.1); CARBON DIOXIDE 24.1 mmol/L (21-32); CHLORIDE 98 mmol/L (98-107); COR NA(FOR HYPERGLY) 142 mmol/L (136-145); CREATININE 1.43 mg/dL (0.70-1.30); LIPASE 213 Units/L (73-393); SODIUM 135 mmol/L (136-145); TOTAL PROTEIN 8.4 g/dL (6.4-8.2); eGFR NON BLACK RACES 57 (>60)
[2019-01-09 17:34] LABS: BASOPHILS # (AUTO) 0.1 X10^3/uL (0.0-0.1); BASOPHILS % (AUTO) 1.2 % (0.2-1.0); EOSINOPHILS % (AUTO) 0.1 % (0.9-2.9); HEMATOCRIT 32.9 % (42.0-54.0); HEMOGLOBIN 10.9 g/dL (13.5-18.0); LYMPHOCYTES # (AUTO) 1.5 X10^3/uL (1.3-2.9); LYMPHOCYTES % (AUTO) 22.5 % (21.0-51.0); MEAN CORPUSCULAR HEMOGLOBIN 24.6 pg (27.0-34.0); MEAN CORPUSCULAR VOLUME 74.5 fL (80.0-100.0); MEAN PLATELET VOLUME 8.4 fL (7.4-11.0); MONOCYTES # (AUTO) 0.4 x10^3/uL (0.3-0.8); MONOCYTES % (AUTO) 5.9 % (0.0-13.0); NEUTROPHILS # (AUTO) 4.8 x10^3/uL (2.2-4.8); NEUTROPHILS % (AUTO) 70.3 % (42.0-75.0); PLATELET COUNT 307 X10^3/uL (150.0-450.0); RED BLOOD COUNT 4.42 X10^6/uL (4.7-6.0); RED CELL DISTRIBUTION WIDTH 17.3 % (11.6-16.5); WHITE BLOOD COUNT 6.8 X10^3/uL (3.6-10.0)
[2019-01-09 17:44] LABS: HYPOCHROMASIA 1+; PLATELET MORPHOLOGY COMMENT NORMAL (NORMAL); POIKILOCYTOSIS SLIGHT
[2019-01-09] MEDS ORDERED: NIFEDIPINE CAP 10 MG PO ONE (18:41)
[2019-01-09] MEDS ORDERED: CATAPRES-TTS-3 TD SCH ×2 (19:00)
[2019-01-09] MEDS ORDERED: HumaLOG SC PRN (19:08)
[2019-01-09 19:17] LABS: BILIRUBIN,URINE NEGATIVE (NEGATIVE); BLOOD/HEMOGLOBIN,URINE 2+ (NEGATIVE); GLUCOSE, URINE 4+ (NEGATIVE); KETONES,URINE 1+ (NEGATIVE); LEUKOCYTE ESTERASE ,URINE NEGATIVE (NEGATIVE); NITRITES,URINE NEGATIVE (NEGATIVE); PROTEIN,URINE 3+ (NEGATIVE); UROBILINOGEN,URINE NORMAL (NORMAL)
[2019-01-09 19:23] LABS: APPEARANCE,URINE CLEAR (CLEAR); COLOR,URINE YELLOW (YELLOW)
[2019-01-09 19:35] LABS: SQUAMOUS EPITHELIAL CELL,UR RARE /HPF (NEGATIVE)
[2019-01-09 19:36] LABS: AMORPHOUS SEDIMENT,UR TRACE /HPF (NEGATIVE); BACTERIA,URINE NEGATIVE /HPF (NEGATIVE)
[2019-01-09] MEDS: NS 1000 ML 1,000 ML IV SCH (21:20)
[2019-01-09] MEDS: NEURONTIN CAP 300 MG PO SCH (21:20)
[2019-01-09] MEDS: NORCO 10/325 TAB PO PRN (21:21)
[2019-01-09] MEDS: SNACK - Diabetic Appropriate PO SCH ×2 (21:31→23:17)
[2019-01-09] MEDS ORDERED: DILAUDID INJ IVP PRN (21:47)
[2019-01-09 22:06] VITALS: BMI 23.4
--- NOTE | 2019-01-09 22:06 | DR.H&P ---
H&P - History & Physical for Day of: H&P Date: 01/09/19 - Chief Complaint Chief Complaint: N/V/ABDOMINAL PAIN - History of Present Illness History of Present Illness: IS A 48 YEAR OLD PATIENT OF OURS WHO PRESENTED TO THE ER WITH COMPLAINTS OF NAUSEA, VOMITING, AND ABDOMINAL PAIN THAT STARTED YESTERDAY. HE REPORTS THAT SYMPTOMS HAVE PROGRESSIVELY GOTTEN WORSE SINCE YESTERDAY. HE HAS A HISTORY OF DIABETIC GASTROPARESIS. HE IS GENERALLY NON-COMPLIANT WITH A DIABETIC DIET. HE DENIES FEVER, C/C/C, DYSURIA, OR HEMATURIA. PAIN IS RATED 10/10. ON ARRIVAL, VITALS WERE 98.6-91-18-100%-206/110. LABS WERE OBTAINED. ABNORMAL LAB VALUES INCLUDE THE FOLLOWING: RBC 4.42, HGB 10.9, HCT 32.9, SODIUM 135, BUN 21, CREATININE 1.43, GLUCOSE 376, AST 14, ALK PHOS 133, TOTAL PROTIEN 8.4. URINALYSIS REVEALS: WBC NONE SEEN, RBC 3-5, BACTERIA NEGATIVE, NITRITE NEGATIVE. AN ABDOMEN/PELVIS CT REVEALED: NO ACUTE ABNORMALITY. HE WAS GIVEN NIFEDIPINE 10MG PO X 1, TORADOL 30MG IV X 1, ZOFRAN COCKTAIL X 1, AND A NORMAL SALINE BOLUS. HE WAS ADMITTED FOR FURTHER EVALUATION AND TREATMENT OF INTRACTABLE NAUSEA AND VOMITING, ABDOMINAL PAIN, AND DIABETIC GASTROPARESIS. HE WAS STARTED ON NORMAL SALINE AT 125ML/HR, ZOFRAN 4MG IV Q6H PRN NAUSEA, DILAUDID 2MG IV Q4H PRN, CLONIDINE PATCH TD Q7D, HUMULIN R SLIDING SCALE, AND HOME MEDICATIONS WERE RESUMED. WE PLAN TO FOLLOW-UP WITH AM LABS AND CONTINUE TO MONITOR. - Past Medical History Past Medical History: Coronary Artery Disease, Hypertension, Dyslipidemia, Diabetes, Anemia, PUD Additional Medical History: Diabetic Neuropathy, Diabetic Gastroparesis, Hiatal Hernia, Gastric Ulcer, Gall Bladder Disease, Back Pain - Past Surgical History Surgical History: Cholecystectomy, Ortho Surgery, Other Additional Surgical History: Right foot I&D - Family History Family Medical History: Diabetes Mellitus, Coronary Artery Disease - Social History Does patient currently use any type of tobacco product: No Have you used tobacco products in the last 12 months: No Type of Tobacco Use: None Does any household member use tobacco: No Alcohol Use: None - Medications Home Medications: codeine Allergy (Verified 12/03/18 15:51) morphine Allergy (Verified 12/03/18 15:51) - Review of Systems Constitutional: See HPI, Weakness Eyes: No Symptoms Reported ENT: No Symptoms Reported Respiratory: No Symptoms Reported Cardiovascular: No Symptoms Reported Gastrointestinal: Nausea, Vomiting, Abdominal Pain Genitourinary: No Symptoms Reported Musculoskeletal: No Symptoms Reported Skin: No Symptoms Reported Neurological: Weakness - Physical Exam Vital Signs: Temperature 98.6 F Pulse Rate 91 Respiratory Rate 16 Blood Pressure [Right Arm] 196/90 Blood Pressure [Left Arm] 197/86 Blood Pressure [Left Radial 160/102 Artery] Blood Pressure 203/103 O2 Sat by Pulse Oximetry 100 Oriented: Normal Eyes: Normal Ear: Normal Nose: Normal Throat: Normal Respiratory: Diminished Throughout Cardiovascular: Normal. negative: S3, S4, Murmur : Normal Auscultation: Bowel Sounds: Normal Palpation: Normal Tenderness: Diffuse, Moderate. negative: Rebound, Guarding, Rigidity Skin: Normal Musculoskeletal: Normal Psychiatric: Normal Mood Description: Calm Affect: Normal Speech Pattern: Clear - Assessment/Plan (1) Acute dehydration Status: Acute Plan: NORMAL SALINE AT 125ML/HR, CONTINUE TO MONITOR (2) Intractable vomiting with nausea Qualifiers: Vomiting type: unspecified Status: Acute Plan: NORMAL SALINE AT 125ML/HR, IV ZOFRAN, CONTINUE TO MONITOR (3) Abdominal pain Qualifiers: Abdominal location: generalized Qualified Code(s): R10.84 - Generalized abdominal pain Status: Acute Plan: NORMAL SALINE AT 125ML/HR, IV ZOFRAN, IV DILAUDID, CONTINUE TO MONITOR (4) Diabetic gastroparesis Status: Acute (5) Hypertension, uncontrolled Status: Acute - Allergies Allergies/Adverse Reactions: Allergies Allergy/AdvReac Type Severity Reaction Status Date / Time codeine Allergy Verified 12/03/18 15:51 morphine Allergy Verified 12/03/18 15:51
[2019-01-10] MEDS: NS 1000 ML 1,000 ML IV SCH ×5 (03:10→22:15)
[2019-01-10 05:18] LABS: SERUM ACETONE SMALL (NEGATIVE)
[2019-01-10 05:19] LABS: BASOPHILS % (AUTO) 0.4 % (0.2-1.0); HEMOGLOBIN 10.6 g/dL (13.5-18.0); LYMPHOCYTES # (AUTO) 0.5 X10^3/uL (1.3-2.9); LYMPHOCYTES % (AUTO) 8.6 % (21.0-51.0); MEAN CORPUSCULAR HEMOGLOBIN 24.6 pg (27.0-34.0); MEAN CORPUSCULAR HGB CONC 32.1 g/dL (33.0-35.0); MEAN CORPUSCULAR VOLUME 76.6 fL (80.0-100.0); MEAN PLATELET VOLUME 8.8 fL (7.4-11.0); MONOCYTES # (AUTO) 0.1 x10^3/uL (0.3-0.8); MONOCYTES % (AUTO) 0.9 % (0.0-13.0); NEUTROPHILS # (AUTO) 5.6 x10^3/uL (2.2-4.8); NEUTROPHILS % (AUTO) 90.1 % (42.0-75.0); PLATELET COUNT 278 X10^3/uL (150.0-450.0); RED BLOOD COUNT 4.31 X10^6/uL (4.7-6.0); RED CELL DISTRIBUTION WIDTH 16.8 % (11.6-16.5); WHITE BLOOD COUNT 6.2 X10^3/uL (3.6-10.0)
[2019-01-10 05:36] LABS: ALANINE AMINOTRANSFERASE 11 Units/L (12-78); ALBUMIN 3.5 g/dL (3.4-5.0); ALKALINE PHOSPHATASE 123 Units/L (46-116); ASPARTATE AMINO TRANSFERASE 11 Units/L (15-37); BLOOD UREA NITROGEN 28 mg/dL (7-18); CALCIUM 8.2 mg/dL (8.5-10.1); CHLORIDE 98 mmol/L (98-107); COR NA(FOR HYPERGLY) 141 mmol/L (136-145); CREATININE 1.47 mg/dL (0.70-1.30); SODIUM 133 mmol/L (136-145); TOTAL PROTEIN 7.8 g/dL (6.4-8.2); eGFR NON BLACK RACES 55 (>60)
[2019-01-10 05:55] LABS: HYPOCHROMASIA SLIGHT; PLATELET MORPHOLOGY COMMENT NORMAL (NORMAL)
[2019-01-10] MEDS: NEURONTIN CAP 300 MG PO SCH ×3 (05:57→22:00)
[2019-01-10] MEDS: HumaLOG SC SCH ×3 (06:23→16:55)
[2019-01-10] MEDS: GLUCOTROL PO SCH (09:06)
[2019-01-10] MEDS: COZAAR PO SCH (09:06)
[2019-01-10] MEDS: SNACK - Diabetic Appropriate PO SCH (20:36)
[2019-01-10] MEDS: ZOFRAN INJ 4 MG VIAL IVP PRN (23:15)
[2019-01-10] MEDS: DEMEROL INJ IVP PRN (23:25)
[2019-01-11] MEDS: NS 1000 ML 1,000 ML IV SCH ×4 (04:08→20:25)
[2019-01-11 05:15] LABS: BASOPHILS % (AUTO) 0.6 % (0.2-1.0); HEMATOCRIT 27.9 % (42.0-54.0); HEMOGLOBIN 9.1 g/dL (13.5-18.0); LYMPHOCYTES # (AUTO) 1.3 X10^3/uL (1.3-2.9); MEAN CORPUSCULAR HEMOGLOBIN 24.8 pg (27.0-34.0); MEAN CORPUSCULAR HGB CONC 32.8 g/dL (33.0-35.0); MEAN CORPUSCULAR VOLUME 75.8 fL (80.0-100.0); MONOCYTES # (AUTO) 0.3 x10^3/uL (0.3-0.8); MONOCYTES % (AUTO) 5.5 % (0.0-13.0); NEUTROPHILS # (AUTO) 4.4 x10^3/uL (2.2-4.8); NEUTROPHILS % (AUTO) 71.9 % (42.0-75.0); PLATELET COUNT 265 X10^3/uL (150.0-450.0); RED BLOOD COUNT 3.68 X10^6/uL (4.7-6.0); WHITE BLOOD COUNT 6.1 X10^3/uL (3.6-10.0)
[2019-01-11 05:23] LABS: ALANINE AMINOTRANSFERASE 11 Units/L (12-78); ALBUMIN 2.8 g/dL (3.4-5.0); ALKALINE PHOSPHATASE 89 Units/L (46-116); ASPARTATE AMINO TRANSFERASE 19 Units/L (15-37); BLOOD UREA NITROGEN 19 mg/dL (7-18); CALCIUM 7.4 mg/dL (8.5-10.1); CARBON DIOXIDE 22.9 mmol/L (21-32); CHLORIDE 105 mmol/L (98-107); COR CA(FOR HYPOALB) 8.4 mg/dL (8.5-10.1); COR NA(FOR HYPERGLY) 141 mmol/L (136-145); CREATININE 0.86 mg/dL (0.70-1.30); SODIUM 138 mmol/L (136-145); TOTAL PROTEIN 6.3 g/dL (6.4-8.2); eGFR NON BLACK RACES > 60 (>60)
[2019-01-11 05:41] LABS: SERUM ACETONE NEGATIVE (NEGATIVE)
[2019-01-11 05:43] LABS: HYPOCHROMASIA 1+; PLATELET MORPHOLOGY COMMENT NORMAL (NORMAL)
[2019-01-11 05:44] LABS: POIKILOCYTOSIS SLIGHT
[2019-01-11] MEDS: DEMEROL INJ IVP PRN ×2 (05:50→14:05)
[2019-01-11] MEDS: NEURONTIN CAP 300 MG PO SCH ×3 (06:19→21:42)
[2019-01-11] MEDS: HumaLOG SC SCH ×2 (06:20→15:43)
[2019-01-11] MEDS ORDERED: POTASSIUM CHL 60 MEQ/NS 0.45% 500 ML IV PRN (06:29)
[2019-01-11] MEDS ORDERED: MAGNESIUM SULFATE 1 GRAM/100 mL PREMIX 1 GM/100 ML BAG IV PRN (06:29)
[2019-01-11] MEDS ORDERED: K-RIDER 10 MEQ/NS 100 ML 10 MEQ/100 ML BAG IV PRN (06:29)
[2019-01-11] MEDS ORDERED: K-DUR TAB 20 MEQ PO PRN (06:29)
[2019-01-11] MEDS ORDERED: POTASSIUM CHLORIDE LIQ 20 MEQ UDC PO PRN (06:29)
[2019-01-11] MEDS ORDERED: MICRO K EXTEN CAP 10 MEQ PO PRN (06:29)
[2019-01-11] MEDS ORDERED: KLOR-CON PO PRN (06:29)
[2019-01-11] MEDS ORDERED: POTASSIUM CHL 40 MEQ/NS 0.45% 500 ML IV PRN (06:29)
[2019-01-11] MEDS: NORCO 10/325 TAB PO PRN (07:53)
[2019-01-11] MEDS: COZAAR PO SCH ×2 (07:54→11:36)
[2019-01-11] MEDS: ZOFRAN INJ 4 MG VIAL IVP PRN (07:54)
[2019-01-11] MEDS ORDERED: ZOFRAN INJ 4 MG VIAL 16 MG, ATIVAN INJ 2 MG VIAL 1 MG, DECADRON INJ 10 MG in NS 50 ML I... IV PRN (11:10)
[2019-01-11] MEDS: GLUCOTROL PO SCH (11:36)
[2019-01-11] MEDS ORDERED: DECADRON INJ PRESERVATIVE-FREE IM ONE (11:47)
[2019-01-11] MEDS ORDERED: NS 50 ML IV 50 ML ONE (11:48)
[2019-01-11] MEDS ORDERED: ATIVAN INJ 2 MG VIAL ONE (11:48)
[2019-01-11] MEDS ORDERED: PHENERGAN TAB 25 MG PO PRN (12:10)
[2019-01-11] MEDS: NORVASC TAB 5 MG PO SCH (14:00)
[2019-01-11] MEDS: PROTONIX TAB 40 MG PO SCH ×2 (14:00→20:25)
[2019-01-11] MEDS: K-DUR TAB 20 MEQ PO SCH (16:36)
[2019-01-11] MEDS: SNACK - Diabetic Appropriate PO SCH (20:24)
[2019-01-11] MEDS: RESTORIL CAP 30 MG PO SCH (20:25)
--- NOTE | 2019-01-11 20:38 | PCM.PROG ---
Progress Note - Progress Note for Day of Date of Exam: 01/10/19 - Subjective Subjective: WAS ADMITTED FOR INTRACTABLE NAUSEA OR VOMITING AND ABDOMINAL PAIN. HE HAS A HISTORY OF DIABETIC GASTROPARESIS AND IS GENERALLY NON- COMPLIANT WITH HIS DIET. HE CONTINUES WITH NAUSEA AND VOMITING TODAY. ON EXAMINATION, HEART IS REGULAR IN RATE AND RHYTHM. BILATERAL LUNGS ARE CLEAR TO AUSCULTATION. ABDOMEN IS ROUND, SOFT, AND NOTED WITH MILD, DIFFUSE TENDERNESS. HYPERACTIVE BOWEL SOUNDS NOTED. HIS VITALS THIS MORNING ARE 97.7-86-18-100%-115/79. LABS WERE OBTAINED. ABNORMAL LAB VALUES INCLUDE THE FOLLOWING: RBC 4.31, HGB 10.6, HCT 33.0, SODIUM 133, POTASSIUM 5.3, CARBON DIOXIDE 19.0, BUN 28, CREATININE 1.47, GLUCOSE 444, AST 11, ALT 11, ALK PHOS 123, ACETONES SMALL. HE IS CURRENTLY RECEIVING NORMAL SALINE AT 125ML/HR, ZOFRAN, HUMULIN R SLIDING SCALE, DILAUDID 2MG IV Q4H PRN. WE WILL CONTINUE WITH CURRENT PLAN OF CARE TODAY. OTHERWISE, WE WILL FOLLOW UP WITH AM LABS AND AGUSTIN PARE[facility] TO MONITOR. - Past Medical Family Social History Past Med/Fam/Surg Hx: No changes since H&P Allergies: Allergies codeine Allergy (Verified 12/03/18 15:51) morphine Allergy (Verified 12/03/18 15:51) - Review of Systems ROS: No change since H&P - Vital Signs and I&O's Vital Signs: Temperature 98.5 F Pulse Rate [Left Brachial] 114 Pulse Rate [Brachial] 100 Pulse Rate 91 Respiratory Rate 18 Blood Pressure [Right Arm] 195/99 Blood Pressure [Left Arm] 177/117 Blood Pressure [Left Radial 160/102 Artery] Blood Pressure 203/103 O2 Sat by Pulse Oximetry 95 Intake and Output: Intake & Output 01/09/19 01/10/19 01/11/19 01/12/19 11:59 11:59 11:59 11:59 Intake Total 1000 / 1000 2744 / 2744 240 / 240 Output Total 1000 / 1000 Balance 0 / 0 2744 / 2744 240 / 240 - Physical Exam Oriented: Normal Eyes: Normal Ear: Normal Nose: Normal Throat: Normal Cardiovascular: Normal. negative: S3, S4, Murmur : Normal Auscultation: Bowel Sounds: Normal Tenderness: Diffuse, Moderate. negative: Rebound, Guarding, Rigidity Skin: Normal Musculoskeletal: Normal Psychiatric: Normal Mood Description: Calm Affect: Normal Speech Pattern: Clear, Appropriate - Laboratory and Diagnostics Result Diagrams: 01/11/19 04:07 01/11/19 04:07 Labs: Laboratory WBC 6.1 X10^3/uL (3.6-10.0) 01/11/19 04:07 RBC 3.68 X10^6/uL (4.7-6.0) L 01/11/19 04:07 Hgb 9.1 g/dL (13.5-18.0) L 01/11/19 04:07 Hct 27.9 % (42.0-54.0) L 01/11/19 04:07 MCV 75.8 fL (80.0-100.0) L 01/11/19 04:07 MCH 24.8 pg (27.0-34.0) L 01/11/19 04:07 MCHC 32.8 g/dL (33.0-35.0) L 01/11/19 04:07 RDW 17.0 % (11.6-16.5) H 01/11/19 04:07 Plt Count 265 X10^3/uL (150.0-450.0) 01/11/19 04:07 Plt Count Comment Adequate (ADEQUATE) 01/11/19 04:07 MPV 9.0 fL (7.4-11.0) 01/11/19 04:07 Neut % (Auto) 71.9 % (42.0-75.0) 01/11/19 04:07 Lymph % (Auto) 22.0 % (21.0-51.0) 01/11/19 04:07 [place] % (Auto) 5.5 % (0.0-13.0) 01/11/19 04:07 Eos % (Auto) 0.0 % (0.9-2.9) L 01/11/19 04:07 Baso % (Auto) 0.6 % (0.2-1.0) 01/11/19 04:07 Neut # (Auto) 4.4 x10^3/uL (2.2-4.8) 01/11/19 04:07 Lymph # (Auto) 1.3 X10^3/uL (1.3-2.9) 01/11/19 04:07 [place] # (Auto) 0.3 x10^3/uL (0.3-0.8) 01/11/19 04:07 Eos # (Auto) 0.0 x10^3/uL (0.0-0.2) 01/11/19 04:07 Baso # (Auto) 0.0 X10^3/uL (0.0-0.1) 01/11/19 04:07 Absolute Nucleated RBC 0.1 /100WBC 01/11/19 04:07 Total Counted 100 01/10/19 04:00 Neutrophils % (Manual) 92 % (39-76) H 01/10/19 04:00 Lymphocytes % (Manual) 7 % (13-43) L 01/10/19 04:00 Monocytes % (Manual) 1 % (4-9) L 01/10/19 04:00 Plt Morphology Comment Normal (NORMAL) 01/11/19 04:07 RBC Morphology Abnormal (NORMAL) 01/11/19 04:07 Hypochromasia 1+ A 01/11/19 04:07 Poikilocytosis Slight A 01/11/19 04:07 Sodium 138 mmol/L (136-145) 01/11/19 04:07 Corrected Sodium 141 mmol/L (136-145) 01/11/19 04:07 Potassium 3.7 mmol/L (3.5-5.1) 01/11/19 04:07 Chloride 105 mmol/L (98-107) 01/11/19 04:07 Carbon Dioxide 22.9 mmol/L (21-32) 01/11/19 04:07 BUN 19 mg/dL (7-18) H 01/11/19 04:07 Creatinine 0.86 mg/dL (0.70-1.30) 01/11/19 04:07 Est GFR (MDRD) Af Amer > 60 (>60) 01/11/19 04:07 Est GFR (MDRD) Non-Af > 60 (>60) 01/11/19 04:07 Glucose 228 mg/dL (65-99) H 01/11/19 04:07 Calcium 7.4 mg/dL (8.5-10.1) L 01/11/19 04:07 Corrected Calcium 8.4 mg/dL (8.5-10.1) L 01/11/19 04:07 Magnesium 1.8 mg/dL (1.7-2.9) 01/11/19 04:07 Total Bilirubin 0.40 mg/dL (0.2-1.0) 01/11/19 04:07 AST 19 Units/L (15-37) 01/11/19 04:07 ALT 11 Units/L (12-78) L 01/11/19 04:07 Alkaline Phosphatase 89 Units/L (46-116) 01/11/19 04:07 Total Protein 6.3 g/dL (6.4-8.2) L 01/11/19 04:07 Albumin 2.8 g/dL (3.4-5.0) L 01/11/19 04:07 Globulin 3.5 g/dL (2.5-4.5) 01/11/19 04:07 Albumin/Globulin Ratio 0.8 Ratio (1.1-2.1) L 01/11/19 04:07 Amylase 77 Units/L (25-115) 01/09/19 17:06 Lipase 213 Units/L (73-393) 01/09/19 17:06 Specimen Type Clean catch urine 01/09/19 19:05 Urine Color Yellow (YELLOW) 01/09/19 19:05 Urine Appearance Clear (CLEAR) 01/09/19 19:05 Urine pH 6.0 (5.0 - 8.0) 01/09/19 19:05 Ur Specific [place] 1.015 (1.000-1.030) 01/09/19 19:05 Urine Protein 3+ (NEGATIVE) 01/09/19 19:05 Urine Glucose (UA) 4+ (NEGATIVE) 01/09/19 19:05 Urine Ketones 1+ (NEGATIVE) 01/09/19 19:05 Urine Occult Blood 2+ (NEGATIVE) 01/09/19 19:05 Urine Nitrite Negative (NEGATIVE) 01/09/19 19:05 Urine Bilirubin Negative (NEGATIVE) 01/09/19 19:05 Urine Urobilinogen Normal (NORMAL) 01/09/19 19:05 Ur Leukocyte Esterase Negative (NEGATIVE) 01/09/19 19:05 Urine RBC 3-5 /HPF (NONE SEEN) 01/09/19 19:05 Urine WBC None seen /HPF (NONE SEEN) 01/09/19 19:05 Ur Squamous Epith Cells Rare /HPF (NEGATIVE) 01/09/19 19:05 Amorphous Sediment Trace /HPF (NEGATIVE) 01/09/19 19:05 Urine Bacteria Negative /HPF (NEGATIVE) 01/09/19 19:05 Ur Culture Indicated? No/not indicated 01/09/19 19:05 Urine Opiates Screen Negative (NEG=<300) 01/09/19 19:05 Urine Methadone Screen Negative (NEG=<300) 01/09/19 19:05 Ur Barbiturates Screen Negative (NEG=<200) 01/09/19 19:05 Ur Phencyclidine Scrn Negative (NEG=<25) 01/09/19 19:05 Ur Amphetamines Screen Negative (NEG=<1000) 01/09/19 19:05 U Benzodiazepines Scrn Negative (NEG=<200) 01/09/19 19:05 Urine Cocaine Screen Negative (NEG=<300) 01/09/19 19:05 U Marijuana (THC) Screen Negative (NEG=<50) 01/09/19 19:05 Acetone, Semi-Quant Negative (NEGATIVE) 01/11/19 04:07 - Plan (1) Acute dehydration Status: Acute Plan: NORMAL SALINE AT 125ML/HR, CONTINUE TO MONITOR (2) Intractable vomiting with nausea Status: Acute Qualifiers: Vomiting type: unspecified Plan: NORMAL SALINE AT 125ML/HR, IV ZOFRAN, CONTINUE TO MONITOR (3) Abdominal pain Status: Acute Qualifiers: Abdominal location: generalized Qualified Code(s): R10.84 - Generalized abdominal pain Plan: NORMAL SALINE AT 125ML/HR, IV ZOFRAN, IV DILAUDID, CONTINUE TO MONITOR (4) Diabetic gastroparesis Status: Acute (5) Hypertension, uncontrolled Status: Acute
[2019-01-12] MEDS: NEURONTIN CAP 300 MG PO SCH ×3 (05:20→21:20)
[2019-01-12] MEDS: NS 1000 ML 1,000 ML IV SCH ×3 (05:20→21:18)
[2019-01-12 05:23] LABS: BASOPHILS % (AUTO) 0.2 % (0.2-1.0); HEMATOCRIT 29.6 % (42.0-54.0); HEMOGLOBIN 9.7 g/dL (13.5-18.0); LYMPHOCYTES # (AUTO) 0.8 X10^3/uL (1.3-2.9); LYMPHOCYTES % (AUTO) 21.4 % (21.0-51.0); MEAN CORPUSCULAR HEMOGLOBIN 24.4 pg (27.0-34.0); MEAN CORPUSCULAR HGB CONC 32.7 g/dL (33.0-35.0); MEAN CORPUSCULAR VOLUME 74.7 fL (80.0-100.0); MEAN PLATELET VOLUME 8.7 fL (7.4-11.0); MONOCYTES # (AUTO) 0.3 x10^3/uL (0.3-0.8); MONOCYTES % (AUTO) 7.9 % (0.0-13.0); NEUTROPHILS # (AUTO) 2.6 x10^3/uL (2.2-4.8); NEUTROPHILS % (AUTO) 70.5 % (42.0-75.0); PLATELET COUNT 290 X10^3/uL (150.0-450.0); RED BLOOD COUNT 3.97 X10^6/uL (4.7-6.0); RED CELL DISTRIBUTION WIDTH 16.9 % (11.6-16.5); WHITE BLOOD COUNT 3.6 X10^3/uL (3.6-10.0)
[2019-01-12 05:30] LABS: ALANINE AMINOTRANSFERASE 9 Units/L (12-78); ALBUMIN 2.9 g/dL (3.4-5.0); ALKALINE PHOSPHATASE 93 Units/L (46-116); ASPARTATE AMINO TRANSFERASE 7 Units/L (15-37); BLOOD UREA NITROGEN 21 mg/dL (7-18); CALCIUM 7.6 mg/dL (8.5-10.1); CARBON DIOXIDE 24.4 mmol/L (21-32); CHLORIDE 103 mmol/L (98-107); COR CA(FOR HYPOALB) 8.5 mg/dL (8.5-10.1); COR NA(FOR HYPERGLY) 141 mmol/L (136-145); CREATININE 1.09 mg/dL (0.70-1.30); SODIUM 137 mmol/L (136-145); TOTAL PROTEIN 6.8 g/dL (6.4-8.2); eGFR NON BLACK RACES > 60 (>60)
[2019-01-12 05:51] LABS: HYPOCHROMASIA SLIGHT; PLATELET MORPHOLOGY COMMENT NORMAL (NORMAL)
[2019-01-12 05:52] LABS: MICROCYTOSIS SLIGHT
[2019-01-12 05:56] LABS: SERUM ACETONE NEGATIVE (NEGATIVE)
[2019-01-12] MEDS: GLUCOTROL PO SCH (09:44)
[2019-01-12] MEDS: COZAAR PO SCH (09:45)
[2019-01-12] MEDS: PROTONIX TAB 40 MG PO SCH ×2 (09:45→21:20)
[2019-01-12] MEDS: NORVASC TAB 5 MG PO SCH (09:45)
[2019-01-12] MEDS: K-DUR TAB 20 MEQ PO SCH (09:45)
[2019-01-12] MEDS: ZITHROMAX TAB 250 MG PO SCH (12:58)
--- NOTE | 2019-01-12 18:38 | PCM.PROG ---
Progress Note - Progress Note for Day of Date of Exam: 01/11/19 - Subjective Subjective: WAS ADMITTED FOR INTRACTABLE NAUSEA OR VOMITING AND ABDOMINAL PAIN. HE HAS A HISTORY OF DIABETIC GASTROPARESIS. HE IS NON-COMPLIANT WITH A LIQUID DIET. HE CONTINUES WITH NAUSEA AND VOMITING TODAY. ON EXAMINATION, HEART IS REGULAR IN RATE AND RHYTHM. BILATERAL LUNGS ARE CLEAR TO AUSCULTATION. ABDOMEN IS ROUND, SOFT, AND NOTED WITH MILD, DIFFUSE TENDERNESS. HYPERACTIVE BOWEL SOUNDS NOTED. HIS VITALS THIS MORNING ARE 97.7-100-20-99%-195/99. LABS WERE OBTAINED. ABNORMAL LAB VALUES INCLUDE THE FOLLOWING: RBC 3.68, HGB 9.1, HCT 27.9, BUN 19, GLUCOSE 228, CALCIUM 7.4, ALT 11, TOTAL PROTEIN 6.3, ALBUMIN 2.8. HE IS CURRENTLY RECEIVING NORMAL SALINE AT 125ML/HR, ZOFRAN, HUMULIN R SLIDING SCALE, DILAUDID 2MG IV Q4H PRN. WE WILL START ZOFRAN COCKTAIL IV Q8H PRN NAUSEA. OTHERWISE, WE WILL CONTINUE WITH CURRENT PLAN OF CARE TODAY. WE WILL FOLLOW UP WITH AM LABS AND CONTINUE TO MONITOR. - Past Medical Family Social History Past Med/Fam/Surg Hx: No changes since H&P Allergies: Allergies codeine Allergy (Verified 12/03/18 15:51) morphine Allergy (Verified 12/03/18 15:51) - Review of Systems ROS: No change since H&P - Vital Signs and I&O's Vital Signs: Temperature 97.4 F Pulse Rate [Right Brachial] 74 Pulse Rate [Left Brachial] 78 Pulse Rate [Brachial] 100 Pulse Rate 91 Respiratory Rate 18 Blood Pressure [Right Arm] 137/77 Blood Pressure [Left Arm] 177/117 Blood Pressure [Left Radial 160/102 Artery] Blood Pressure 203/103 O2 Sat by Pulse Oximetry 99 Intake and Output: Intake & Output 01/10/19 01/11/19 01/12/19 01/13/19 11:59 11:59 11:59 11:59 Intake Total 1000 / 1000 2744 / 2744 1450 / 1450 360 / 360 Output Total 1000 / 1000 Balance 0 / 0 2744 / 2744 1450 / 1450 360 / 360 - Physical Exam Oriented: Normal Eyes: Normal Ear: Normal Nose: Normal Throat: Normal Respiratory: Generalized, Diminished Cardiovascular: Normal. negative: S3, S4, Murmur : Normal Auscultation: Bowel Sounds: Normal Palpation: Normal Tenderness: Diffuse, Moderate. negative: Rebound, Guarding, Rigidity Skin: Normal Musculoskeletal: Normal Psychiatric: Normal Mood Description: Calm Affect: Normal Speech Pattern: Clear, Appropriate - Laboratory and Diagnostics Result Diagrams: 01/12/19 04:15 01/12/19 04:15 Labs: Laboratory WBC 3.6 X10^3/uL (3.6-10.0) 01/12/19 04:15 RBC 3.97 X10^6/uL (4.7-6.0) L 01/12/19 04:15 Hgb 9.7 g/dL (13.5-18.0) L 01/12/19 04:15 Hct 29.6 % (42.0-54.0) L 01/12/19 04:15 MCV 74.7 fL (80.0-100.0) L 01/12/19 04:15 MCH 24.4 pg (27.0-34.0) L 01/12/19 04:15 MCHC 32.7 g/dL (33.0-35.0) L 01/12/19 04:15 RDW 16.9 % (11.6-16.5) H 01/12/19 04:15 Plt Count 290 X10^3/uL (150.0-450.0) 01/12/19 04:15 Plt Count Comment Adequate (ADEQUATE) 01/12/19 04:15 MPV 8.7 fL (7.4-11.0) 01/12/19 04:15 Neut % (Auto) 70.5 % (42.0-75.0) 01/12/19 04:15 Lymph % (Auto) 21.4 % (21.0-51.0) 01/12/19 04:15 [place] % (Auto) 7.9 % (0.0-13.0) 01/12/19 04:15 Eos % (Auto) 0.0 % (0.9-2.9) L 01/12/19 04:15 Baso % (Auto) 0.2 % (0.2-1.0) 01/12/19 04:15 Neut # (Auto) 2.6 x10^3/uL (2.2-4.8) 01/12/19 04:15 Lymph # (Auto) 0.8 X10^3/uL (1.3-2.9) L 01/12/19 04:15 [place] # (Auto) 0.3 x10^3/uL (0.3-0.8) 01/12/19 04:15 Eos # (Auto) 0.0 x10^3/uL (0.0-0.2) 01/12/19 04:15 Baso # (Auto) 0.0 X10^3/uL (0.0-0.1) 01/12/19 04:15 Absolute Nucleated RBC 0.0 /100WBC 01/12/19 04:15 Total Counted 100 01/10/19 04:00 Neutrophils % (Manual) 92 % (39-76) H 01/10/19 04:00 Lymphocytes % (Manual) 7 % (13-43) L 01/10/19 04:00 Monocytes % (Manual) 1 % (4-9) L 01/10/19 04:00 Plt Morphology Comment Normal (NORMAL) 01/12/19 04:15 RBC Morphology Abnormal (NORMAL) 01/12/19 04:15 Hypochromasia Slight A 01/12/19 04:15 Poikilocytosis Slight A 01/11/19 04:07 Microcytosis Slight A 01/12/19 04:15 Sodium 137 mmol/L (136-145) 01/12/19 04:15 Corrected Sodium 141 mmol/L (136-145) 01/12/19 04:15 Potassium 4.4 mmol/L (3.5-5.1) 01/12/19 04:15 Chloride 103 mmol/L (98-107) 01/12/19 04:15 Carbon Dioxide 24.4 mmol/L (21-32) 01/12/19 04:15 BUN 21 mg/dL (7-18) H 01/12/19 04:15 Creatinine 1.09 mg/dL (0.70-1.30) 01/12/19 04:15 Est GFR (MDRD) Af Amer > 60 (>60) 01/12/19 04:15 Est GFR (MDRD) Non-Af > 60 (>60) 01/12/19 04:15 Glucose 261 mg/dL (65-99) H 01/12/19 04:15 Calcium 7.6 mg/dL (8.5-10.1) L 01/12/19 04:15 Corrected Calcium 8.5 mg/dL (8.5-10.1) 01/12/19 04:15 Magnesium 1.8 mg/dL (1.7-2.9) 01/11/19 04:07 Total Bilirubin 0.50 mg/dL (0.2-1.0) 01/12/19 04:15 AST 7 Units/L (15-37) L 01/12/19 04:15 ALT 9 Units/L (12-78) L 01/12/19 04:15 Alkaline Phosphatase 93 Units/L (46-116) 01/12/19 04:15 Total Protein 6.8 g/dL (6.4-8.2) 01/12/19 04:15 Albumin 2.9 g/dL (3.4-5.0) L 01/12/19 04:15 Globulin 3.9 g/dL (2.5-4.5) 01/12/19 04:15 Albumin/Globulin Ratio 0.7 Ratio (1.1-2.1) L 01/12/19 04:15 Amylase 77 Units/L (25-115) 01/09/19 17:06 Lipase 213 Units/L (73-393) 01/09/19 17:06 Specimen Type Clean catch urine 01/09/19 19:05 Urine Color Yellow (YELLOW) 01/09/19 19:05 Urine Appearance Clear (CLEAR) 01/09/19 19:05 Urine pH 6.0 (5.0 - 8.0) 01/09/19 19:05 Ur Specific [place] 1.015 (1.000-1.030) 01/09/19 19:05 Urine Protein 3+ (NEGATIVE) 01/09/19 19:05 Urine Glucose (UA) 4+ (NEGATIVE) 01/09/19 19:05 Urine Ketones 1+ (NEGATIVE) 01/09/19 19:05 Urine Occult Blood 2+ (NEGATIVE) 01/09/19 19:05 Urine Nitrite Negative (NEGATIVE) 01/09/19 19:05 Urine Bilirubin Negative (NEGATIVE) 01/09/19 19:05 Urine Urobilinogen Normal (NORMAL) 01/09/19 19:05 Ur Leukocyte Esterase Negative (NEGATIVE) 01/09/19 19:05 Urine RBC 3-5 /HPF (NONE SEEN) 01/09/19 19:05 Urine WBC None seen /HPF (NONE SEEN) 01/09/19 19:05 Ur Squamous Epith Cells Rare /HPF (NEGATIVE) 01/09/19 19:05 Amorphous Sediment Trace /HPF (NEGATIVE) 01/09/19 19:05 Urine Bacteria Negative /HPF (NEGATIVE) 01/09/19 19:05 Ur Culture Indicated? No/not indicated 01/09/19 19:05 Urine Opiates Screen Negative (NEG=<300) 01/09/19 19:05 Urine Methadone Screen Negative (NEG=<300) 01/09/19 19:05 Ur Barbiturates Screen Negative (NEG=<200) 01/09/19 19:05 Ur Phencyclidine Scrn Negative (NEG=<25) 01/09/19 19:05 Ur Amphetamines Screen Negative (NEG=<1000) 01/09/19 19:05 U Benzodiazepines Scrn Negative (NEG=<200) 01/09/19 19:05 Urine Cocaine Screen Negative (NEG=<300) 01/09/19 19:05 U Marijuana (THC) Screen Negative (NEG=<50) 01/09/19 19:05 Acetone, Semi-Quant Negative (NEGATIVE) 01/12/19 04:15 - Plan (1) Acute dehydration Status: Acute Plan: NORMAL SALINE AT 125ML/HR, CONTINUE TO MONITOR (2) Intractable vomiting with nausea Status: Acute Qualifiers: Vomiting type: unspecified Plan: NORMAL SALINE AT 125ML/HR, IV ZOFRAN COCKTAIL, CONTINUE TO MONITOR (3) Abdominal pain Status: Acute Qualifiers: Abdominal location: generalized Qualified Code(s): R10.84 - Generalized abdominal pain Plan: NORMAL SALINE AT 125ML/HR, IV ZOFRAN COCKTAIL, IV DILAUDID, CONTINUE TO MONITOR (4) Diabetic gastroparesis Status: Acute (5) Hypertension, uncontrolled Status: Acute
[2019-01-12] MEDS: RESTORIL CAP 30 MG PO SCH (21:19)
[2019-01-12] MEDS: DEMEROL INJ IVP PRN (21:20)
[2019-01-12] MEDS: SNACK - Diabetic Appropriate PO SCH (23:02)
[2019-01-12] MEDS: HumuLIN R SUBCUT PRN (23:07)
[2019-01-13 05:24] LABS: BASOPHILS % (AUTO) 0.5 % (0.2-1.0); EOSINOPHILS % (AUTO) 0.4 % (0.9-2.9); HEMATOCRIT 28.7 % (42.0-54.0); HEMOGLOBIN 9.3 g/dL (13.5-18.0); LYMPHOCYTES # (AUTO) 1.9 X10^3/uL (1.3-2.9); LYMPHOCYTES % (AUTO) 46.5 % (21.0-51.0); MEAN CORPUSCULAR HEMOGLOBIN 24.4 pg (27.0-34.0); MEAN CORPUSCULAR HGB CONC 32.4 g/dL (33.0-35.0); MEAN CORPUSCULAR VOLUME 75.3 fL (80.0-100.0); MEAN PLATELET VOLUME 8.6 fL (7.4-11.0); MONOCYTES # (AUTO) 0.3 x10^3/uL (0.3-0.8); MONOCYTES % (AUTO) 8.3 % (0.0-13.0); NEUTROPHILS # (AUTO) 1.8 x10^3/uL (2.2-4.8); NEUTROPHILS % (AUTO) 44.3 % (42.0-75.0); PLATELET COUNT 252 X10^3/uL (150.0-450.0); RED BLOOD COUNT 3.81 X10^6/uL (4.7-6.0); RED CELL DISTRIBUTION WIDTH 16.6 % (11.6-16.5)
[2019-01-13 05:31] LABS: ALANINE AMINOTRANSFERASE 12 Units/L (12-78); ALBUMIN 2.7 g/dL (3.4-5.0); ALKALINE PHOSPHATASE 93 Units/L (46-116); ASPARTATE AMINO TRANSFERASE 9 Units/L (15-37); BLOOD UREA NITROGEN 14 mg/dL (7-18); CALCIUM 7.9 mg/dL (8.5-10.1); CARBON DIOXIDE 26.5 mmol/L (21-32); CHLORIDE 105 mmol/L (98-107); COR CA(FOR HYPOALB) 8.9 mg/dL (8.5-10.1); COR NA(FOR HYPERGLY) 144 mmol/L (136-145); CREATININE 1.19 mg/dL (0.70-1.30); MAGNESIUM 1.9 mg/dL (1.7-2.9); SODIUM 139 mmol/L (136-145); TOTAL PROTEIN 6.3 g/dL (6.4-8.2); eGFR NON BLACK RACES > 60 (>60)
[2019-01-13] MEDS: NEURONTIN CAP 300 MG PO SCH (05:38)
[2019-01-13] MEDS: NS 1000 ML 1,000 ML IV SCH ×2 (05:39→05:41)
[2019-01-13] MEDS: HumuLIN R SUBCUT PRN (05:54)
[2019-01-13 05:57] LABS: HYPOCHROMASIA SLIGHT; MICROCYTOSIS SLIGHT; PLATELET MORPHOLOGY COMMENT NORMAL (NORMAL)
[2019-01-13] MEDS: ZITHROMAX TAB 250 MG PO SCH (09:13)
[2019-01-13] MEDS: NORVASC TAB 5 MG PO SCH (09:13)
[2019-01-13] MEDS: PROTONIX TAB 40 MG PO SCH (09:13)
[2019-01-13] MEDS: COZAAR PO SCH (09:13)
[2019-01-13] MEDS: K-DUR TAB 20 MEQ PO SCH (09:13)
[2019-01-13] MEDS: GLUCOTROL PO SCH (09:13)
[2019-01-13 10:52] VITALS: BP 124/76
--- NOTE | 2019-01-19 18:27 | PCM.PROG ---
Progress Note - Progress Note for Day of Date of Exam: 01/19/19 - Subjective Subjective: WAS ADMITTED FOR INTRACTABLE NAUSEA OR VOMITING, DIABETIC GASTROPARESIS, AND ABDOMINAL PAIN. HE CONTINUES WITH NAUSEA AND VOMITING TODAY. ON EXAMINATION, HEART IS REGULAR IN RATE AND RHYTHM. BILATERAL LUNGS ARE CLEAR TO AUSCULTATION. ABDOMEN IS ROUND, SOFT, AND NOTED WITH MILD, DIFFUSE TENDERNESS. HYPERACTIVE BOWEL SOUNDS NOTED. HIS VITALS THIS MORNING ARE 97.7-93-20-97%-176/98. LABS WERE OBTAINED. ABNORMAL LAB VALUES INCLUDE THE FOLLOWING: WBC 14.8, RBC 4.45, HGB 10.8, HCT 33.2, CORRECTED SODIUM 149, GLUCOSE 357, AST 10, ALK PHOSPHATASE 129. HE IS CURRENTLY RECEIVING NORMAL SALINE WITH 20MEQ KCL AT 125ML/HR, ZOFRAN COCKTAIL, HUMULIN R SLIDING SCALE, DEMEROL 25-50MG IV Q4H PRN, AND HOME MEDICATIONS WERE RESUMED. WE WILL CONTINUE WITH CURRENT PLAN OF CARE TODAY AND INCREASE HIS DIET TO FULL LIQUIDS. WE WILL OBTAIN CHEST XRAY AND A URINALYSIS TODAY. OTHERWISE, WE WILL FOLLOW UP WITH AM LABS AND CONTINUE TO MONITOR. - Past Medical Family Social History Past Med/Fam/Surg Hx: No changes since H&P Allergies: Allergies codeine Allergy (Verified 12/03/18 15:51) morphine Allergy (Verified 12/03/18 15:51) - Review of Systems ROS: No change since H&P - Vital Signs and I&O's Vital Signs: Temperature 97.8 F Pulse Rate [Right Brachial] 82 Pulse Rate [Left Brachial] 78 Pulse Rate [Brachial] 100 Pulse Rate 91 Respiratory Rate 20 Blood Pressure [Right Arm] 124/76 Blood Pressure [Left Arm] 177/117 Blood Pressure [Left Radial 160/102 Artery] Blood Pressure 203/103 O2 Sat by Pulse Oximetry 100 - Physical Exam Oriented: Normal Eyes: Normal Ear: Normal Nose: Normal Throat: Normal Respiratory: Normal, Generalized Cardiovascular: Normal. negative: S3, S4, Murmur : Normal Auscultation: Bowel Sounds: Normal Palpation: Normal Tenderness: Diffuse, Moderate. negative: Rebound, Guarding, Rigidity Skin: Normal Musculoskeletal: Normal Psychiatric: Normal Mood Description: Calm Affect: Normal Speech Pattern: Clear, Appropriate - Laboratory and Diagnostics Result Diagrams: 01/13/19 04:14 01/13/19 04:14 Labs: Laboratory WBC 4.0 X10^3/uL (3.6-10.0) 01/13/19 04:14 RBC 3.81 X10^6/uL (4.7-6.0) L 01/13/19 04:14 Hgb 9.3 g/dL (13.5-18.0) L 01/13/19 04:14 Hct 28.7 % (42.0-54.0) L 01/13/19 04:14 MCV 75.3 fL (80.0-100.0) L 01/13/19 04:14 MCH 24.4 pg (27.0-34.0) L 01/13/19 04:14 MCHC 32.4 g/dL (33.0-35.0) L 01/13/19 04:14 RDW 16.6 % (11.6-16.5) H 01/13/19 04:14 Plt Count 252 X10^3/uL (150.0-450.0) 01/13/19 04:14 Plt Count Comment Adequate (ADEQUATE) 01/13/19 04:14 MPV 8.6 fL (7.4-11.0) 01/13/19 04:14 Neut % (Auto) 44.3 % (42.0-75.0) 01/13/19 04:14 Lymph % (Auto) 46.5 % (21.0-51.0) 01/13/19 04:14 [place] % (Auto) 8.3 % (0.0-13.0) 01/13/19 04:14 Eos % (Auto) 0.4 % (0.9-2.9) L 01/13/19 04:14 Baso % (Auto) 0.5 % (0.2-1.0) 01/13/19 04:14 Neut # (Auto) 1.8 x10^3/uL (2.2-4.8) L 01/13/19 04:14 Lymph # (Auto) 1.9 X10^3/uL (1.3-2.9) 01/13/19 04:14 [place] # (Auto) 0.3 x10^3/uL (0.3-0.8) 01/13/19 04:14 Eos # (Auto) 0.0 x10^3/uL (0.0-0.2) 01/13/19 04:14 Baso # (Auto) 0.0 X10^3/uL (0.0-0.1) 01/13/19 04:14 Absolute Nucleated RBC 0.1 /100WBC 01/13/19 04:14 Total Counted 100 01/10/19 04:00 Neutrophils % (Manual) 92 % (39-76) H 01/10/19 04:00 Lymphocytes % (Manual) 7 % (13-43) L 01/10/19 04:00 Monocytes % (Manual) 1 % (4-9) L 01/10/19 04:00 Plt Morphology Comment Normal (NORMAL) 01/13/19 04:14 RBC Morphology Abnormal (NORMAL) 01/13/19 04:14 Hypochromasia Slight A 01/13/19 04:14 Poikilocytosis Slight A 01/11/19 04:07 Microcytosis Slight A 01/13/19 04:14 Sodium 139 mmol/L (136-145) 01/13/19 04:14 Corrected Sodium 144 mmol/L (136-145) 01/13/19 04:14 Potassium 3.6 mmol/L (3.5-5.1) 01/13/19 04:14 Chloride 105 mmol/L (98-107) 01/13/19 04:14 Carbon Dioxide 26.5 mmol/L (21-32) 01/13/19 04:14 BUN 14 mg/dL (7-18) 01/13/19 04:14 Creatinine 1.19 mg/dL (0.70-1.30) 01/13/19 04:14 Est GFR (MDRD) Af Amer > 60 (>60) 01/13/19 04:14 Est GFR (MDRD) Non-Af > 60 (>60) 01/13/19 04:14 Glucose 302 mg/dL (65-99) H 01/13/19 04:14 Calcium 7.9 mg/dL (8.5-10.1) L 01/13/19 04:14 Corrected Calcium 8.9 mg/dL (8.5-10.1) 01/13/19 04:14 Magnesium 1.9 mg/dL (1.7-2.9) 01/13/19 04:14 Total Bilirubin 0.30 mg/dL (0.2-1.0) 01/13/19 04:14 AST 9 Units/L (15-37) L 01/13/19 04:14 ALT 12 Units/L (12-78) 01/13/19 04:14 Alkaline Phosphatase 93 Units/L (46-116) 01/13/19 04:14 Total Protein 6.3 g/dL (6.4-8.2) L 01/13/19 04:14 Albumin 2.7 g/dL (3.4-5.0) L 01/13/19 04:14 Globulin 3.6 g/dL (2.5-4.5) 01/13/19 04:14 Albumin/Globulin Ratio 0.8 Ratio (1.1-2.1) L 01/13/19 04:14 Amylase 77 Units/L (25-115) 01/09/19 17:06 Lipase 213 Units/L (73-393) 01/09/19 17:06 Specimen Type Clean catch urine 01/09/19 19:05 Urine Color Yellow (YELLOW) 01/09/19 19:05 Urine Appearance Clear (CLEAR) 01/09/19 19:05 Urine pH 6.0 (5.0 - 8.0) 01/09/19 19:05 Ur Specific [place] 1.015 (1.000-1.030) 01/09/19 19:05 Urine Protein 3+ (NEGATIVE) 01/09/19 19:05 Urine Glucose (UA) 4+ (NEGATIVE) 01/09/19 19:05 Urine Ketones 1+ (NEGATIVE) 01/09/19 19:05 Urine Occult Blood 2+ (NEGATIVE) 01/09/19 19:05 Urine Nitrite Negative (NEGATIVE) 01/09/19 19:05 Urine Bilirubin Negative (NEGATIVE) 01/09/19 19:05 Urine Urobilinogen Normal (NORMAL) 01/09/19 19:05 Ur Leukocyte Esterase Negative (NEGATIVE) 01/09/19 19:05 Urine RBC 3-5 /HPF (NONE SEEN) 01/09/19 19:05 Urine WBC None seen /HPF (NONE SEEN) 01/09/19 19:05 Ur Squamous Epith Cells Rare /HPF (NEGATIVE) 01/09/19 19:05 Amorphous Sediment Trace /HPF (NEGATIVE) 01/09/19 19:05 Urine Bacteria Negative /HPF (NEGATIVE) 01/09/19 19:05 Ur Culture Indicated? No/not indicated 01/09/19 19:05 Urine Opiates Screen Negative (NEG=<300) 01/09/19 19:05 Urine Methadone Screen Negative (NEG=<300) 01/09/19 19:05 Ur Barbiturates Screen Negative (NEG=<200) 01/09/19 19:05 Ur Phencyclidine Scrn Negative (NEG=<25) 01/09/19 19:05 Ur Amphetamines Screen Negative (NEG=<1000) 01/09/19 19:05 U Benzodiazepines Scrn Negative (NEG=<200) 01/09/19 19:05 Urine Cocaine Screen Negative (NEG=<300) 01/09/19 19:05 U Marijuana (THC) Screen Negative (NEG=<50) 01/09/19 19:05 Acetone, Semi-Quant Negative (NEGATIVE) 01/13/19 04:14 - Plan (1) Intractable vomiting with nausea Status: Acute Qualifiers: Vomiting type: unspecified Plan: NS WITH 20MEQ KCL @ 125ML/HR, IV ZOFRAN COCKTAIL, PAIN CONTROL, CONTINUE TO MONITOR (2) Abdominal pain Status: Acute Qualifiers: Abdominal location: generalized Qualified Code(s): R10.84 - Generalized abdominal pain Plan: NS WITH 20MEQ KCL @ 125ML/HR, IV ZOFRAN COCKTAIL, PAIN CONTROL, CONTINUE TO MONITOR (3) Diabetic gastroparesis Status: Acute (4) Hypertension, uncontrolled Status: Acute
== END 2019-01-13 11:10 | disposition home or self-care (01) | DRG 74 ==
LOC: ER 16:53 → MED/SURG 16:53
PROVIDERS: ADMIT Internal Medicine; ATTEND Internal Medicine
DX: I25.10 Atherosclerotic heart disease of native coronary artery without angina pectoris; R10.84 Generalized abdominal pain; E78.2 Mixed hyperlipidemia; R11.2 Nausea with vomiting, unspecified; Z79.899 Other long term (current) drug therapy; E86.0 Dehydration; I10 Essential (primary) hypertension; R94.4 Abnormal results of kidney function studies; E11.43 Type 2 diabetes mellitus with diabetic autonomic (poly)neuropathy; K31.84 Gastroparesis; Z79.4 Long term (current) use of insulin
CPT/HCPCS: 36415; 74176; 80053; 80307; 81001; 82009; 82150; 83690; 83735; 85025; 96365; 96367; 96374; 96375; 99284; A4216; A4222; Q0144; Q0169; G0378; G0434; J1100; J1170; J1642; J1815; J1817; J1885; J2060; J2175; J2405; J3475; J7030; J7050

== ENCOUNTER 2019-01-18 11:35 | Inpatient (IN) ==
--- NOTE | 2019-01-18 11:54 | DR.N/VMALE ---
HPI Time Seen Time Seen by Provider: 01/18/19 11:53 Primary Care Physician Primary Care Physician: DR NUÑEZ HPI Comment HPI Comment: 48 yo m w/ prev hx of gastroparesis, dm presents w/ abdominal pain x 12 hrs. a/w n/v. Multiple episodes. Unable to keep down bp meds secondary to vomiting. PCP Dr Nuñez. Complaints Chief Complaint:: PT C/O GENERALIZED ABDOMINAL PAIN SINCE THIS MORNING. PAIN IS DESCRIBED SHARP ACHING PAIN AND IS ASSOCIATED WITH NAUSEA AND VOMITING. Reviewed Nurses Notes Reviewed: Yes Source History Provided: Patient Mode of Arrival Mode of Arrival: Ambulatory Timing Onset of Chief Complaint: 01/18/19 Severity Number of episodes of vomiting over last 24 hours: 6 Context Onset: Spontaneous Recent: denies Travel and Contact Exposure History of: Diabetes Quality Quality: Bilious Associated Signs and Symptoms Abdominal Pain Quality: Aching Abdominal Pain Location: Diffuse Symptoms: Abdominal Pain; denies Diarrhea, Hematemesis, Melena, Hematochezia and Fever PMH PMH Past Medical History: Yes Past Medical History: Diabetes, Hypertension and PUD Past Medical History Comment: GASTROPARESIS Past Surgical History: Yes Surgical History: Cholecystectomy Past Surgical History Comment: PORT PLACEMENT, BACK SURGERY, HERNIA REPAIR Family History History of Family Medical Conditions: Yes Family Medical History: Diabetes Mellitus Social History Does patient currently use any type of tobacco product: No Have you used tobacco products in the last 12 months: No Type of Tobacco Use: Cigarettes Does any household member use tobacco: No Alcohol Use: None Do you use any recreational Drugs:: No Lives With: Family Lives Where: Home infectious screening In the last 2 months have you had wt loss of >10#?: NO Have you had fever, night sweats or hemotysis?: No Have you traveled outside the country in the last 6 months?: No Isolation: Standard ROS Review of Systems Constitutional: No Symptoms Reported; negative Chills and Fever Eyes: No Symptoms Reported ENTM: No Symptoms Reported Respiratoy: No Symptoms Reported; negative Short of Breath Cardiovascular: No Symptoms Reported; negative Chest Pain Gastrointestinal/Abdominal: Abdominal Pain, Nausea, Vomiting and Food Intolerance; negative Constipation and Diarrhea Genitourinary: No Symptoms Reported Neurological: No Symptoms Reported; negative Headache Musculoskeletal: No Symptoms Reported Integumentary: No Symptoms Reported Hematologic/Lymphatic: No Symptoms Reported Endocrine: No Symptoms Reported Psychiatric: No Symptoms Reported All Other Systems: Reviewed and Negative PE Vital Signs Vitals: Temperature 98.0 F Pulse Rate [Right Brachial] 133 Pulse Rate 119 Respiratory Rate 20 Blood Pressure [Right Arm] 167/89 Blood Pressure [Left Arm] 177/117 Blood Pressure [Left Radial 160/102 Artery] Blood Pressure 118/68 O2 Sat by Pulse Oximetry 99 General Limitations: No Limitations General Appearance: Alert, Anxious and In Distress (mod pain distress ) Head Head Exam: Normal Inspection Eyes Eye exam: Normal Appearance ENT ENT Exam: Normal Exam Neck Neck Exam: Normal Inspection Chest Chest Inspection: Normal Inspection Respiratory Respiratory Exam: Normal Lung Sounds Bilat Respiratory Exam: Bilateral: Clear to Auscultation Cardiovascular Cardiovascular Exam: Regular Rate and Normal Rhythm Abdominal Exam Abdominal Exam: Tenderness (diffuse tenderness, voluntary guarding, no rigidity, BS+ ); negative Distention, Rebound and Hyperactive Bowel Sounds Abdominal Tenderness: Diffuse Rectal Rectal Exam: Deferred Exam: Male: Deferred Extremities Extremities Exam: Normal Inspection Back Back Exam: Normal Inspection Neurologic Neurological Exam: Alert and Oriented X3 Psychiatric Psychiatric Exam: Normal Affect and Normal Mood Skin Skin Exam: Warm, Dry, Intact and Normal Color COURSE Treatment Treatment: 48 yo AAM with prev hx of diabetic gastroparesis and htn presents w/ recurrent abdominal pain and multiple episodes of n/v. On arrival to ED was noted to be markedly HTN w/ SBP in 210 systolic range. No chest pain, no headache, no evidence of pulmonary edema. EKG w/o any acute ST segment changes. Given one dose of hydralazine with marked improvement of BP. Treated symptomatically with hydromorphone and both Zofran and Compazine. Routine labs obtained which demonstrated mild hypokalemia. Mild leukocytosis noted likely representing leukemoid reaction. Mild microcytic anemia likely secondary to chronic malnutrition/ iron deficiency anemia. IVF bolus given. Discussed with Dr Nuñez whom agrees to admit the patient. Education/Counseling Education/Counseling: Patient Educated On: Treatment and Diagnosis ROR Labs Reviewed Laboratory Results Reviewed?: Yes Result Diagrams: 01/18/19 12:18 01/18/19 12:18 Laboratory: WBC 11.5 X10^3/uL (3.6-10.0) H 01/18/19 12:18 RBC 4.58 X10^6/uL (4.7-6.0) L 01/18/19 12:18 Hgb 11.1 g/dL (13.5-18.0) L 01/18/19 12:18 Hct 33.9 % (42.0-54.0) L 01/18/19 12:18 MCV 74.0 fL (80.0-100.0) L 01/18/19 12:18 MCH 24.2 pg (27.0-34.0) L 01/18/19 12:18 MCHC 32.7 g/dL (33.0-35.0) L 01/18/19 12:18 RDW 17.1 % (11.6-16.5) H 01/18/19 12:18 Plt Count 304 X10^3/uL (150.0-450.0) 01/18/19 12:18 Plt Count Comment Adequate (ADEQUATE) 01/18/19 12:18 MPV 8.2 fL (7.4-11.0) 01/18/19 12:18 Neut % (Auto) 81.6 % (42.0-75.0) H 01/18/19 12:18 Lymph % (Auto) 11.9 % (21.0-51.0) L 01/18/19 12:18 [place] % (Auto) 5.7 % (0.0-13.0) 01/18/19 12:18 Eos % (Auto) 0.1 % (0.9-2.9) L 01/18/19 12:18 Baso % (Auto) 0.7 % (0.2-1.0) 01/18/19 12:18 Neut # (Auto) 9.4 x10^3/uL (2.2-4.8) H 01/18/19 12:18 Lymph # (Auto) 1.4 X10^3/uL (1.3-2.9) 01/18/19 12:18 [place] # (Auto) 0.7 x10^3/uL (0.3-0.8) 01/18/19 12:18 Eos # (Auto) 0.0 x10^3/uL (0.0-0.2) 01/18/19 12:18 Baso # (Auto) 0.1 X10^3/uL (0.0-0.1) 01/18/19 12:18 Absolute Nucleated RBC 0.0 /100WBC 01/18/19 12:18 Total Counted 100 01/18/19 12:18 Neutrophils % (Manual) 82 % (39-76) H 01/18/19 12:18 Lymphocytes % (Manual) 15 % (13-43) 01/18/19 12:18 Monocytes % (Manual) 3 % (4-9) L 01/18/19 12:18 Plt Morphology Comment Normal (NORMAL) 01/18/19 12:18 RBC Morphology Abnormal (NORMAL) 01/18/19 12:18 Hypochromasia Slight A 01/18/19 12:18 Microcytosis Slight A 01/18/19 12:18 Sodium 141 mmol/L (136-145) 01/18/19 12:18 Corrected Sodium 147 mmol/L (136-145) H 01/18/19 12:18 Potassium 3.2 mmol/L (3.5-5.1) L 01/18/19 12:18 Chloride 98 mmol/L (98-107) 01/18/19 12:18 Carbon Dioxide 31.3 mmol/L (21-32) 01/18/19 12:18 BUN 16 mg/dL (7-18) 01/18/19 12:18 Creatinine 1.07 mg/dL (0.70-1.30) 01/18/19 12:18 Est GFR (MDRD) Af Amer > 60 (>60) 01/18/19 12:18 Est GFR (MDRD) Non-Af > 60 (>60) 01/18/19 12:18 Glucose 344 mg/dL (65-99) H 01/18/19 12:18 Calcium 10.2 mg/dL (8.5-10.1) H 01/18/19 12:18 Magnesium 1.6 mg/dL (1.7-2.9) L 01/18/19 12:18 EKG Rate: 117 [place]: RAD Rhythm: ST Block: None Hypertrophy: None ST: Normal Opioid Opioid Risk Tool Age (Paddy box if 16-45): Yes Total: 1 Total Score Risk Category: Low Risk Copyright: Harris predicting aberrant behaviors Diagnosis Discharge Problem: Abdominal pain, Nausea & vomiting, Gastroparesis ADDITIONAL NOTES Additional Notes Additional Notes: Admit to medicine floor.
[2019-01-18] MEDS ORDERED: ZOFRAN INJ 4 MG VIAL IVP ONE (11:55)
[2019-01-18] MEDS ORDERED: ZOFRAN INJ 4 MG VIAL ONE (11:57)
[2019-01-18] MEDS: NS 1000 ML 1,000 ML IV SCH ×2 (12:12→18:09)
[2019-01-18] MEDS ORDERED: DILAUDID INJ IVP ONE ×2 (12:13→13:52)
[2019-01-18] MEDS ORDERED: DILAUDID INJ ONE ×2 (12:14→13:55)
[2019-01-18 12:25] LABS: BASOPHILS # (AUTO) 0.1 X10^3/uL (0.0-0.1); BASOPHILS % (AUTO) 0.7 % (0.2-1.0); EOSINOPHILS % (AUTO) 0.1 % (0.9-2.9); HEMATOCRIT 33.9 % (42.0-54.0); HEMOGLOBIN 11.1 g/dL (13.5-18.0); LYMPHOCYTES # (AUTO) 1.4 X10^3/uL (1.3-2.9); LYMPHOCYTES % (AUTO) 11.9 % (21.0-51.0); MEAN CORPUSCULAR HEMOGLOBIN 24.2 pg (27.0-34.0); MEAN CORPUSCULAR HGB CONC 32.7 g/dL (33.0-35.0); MEAN PLATELET VOLUME 8.2 fL (7.4-11.0); MONOCYTES # (AUTO) 0.7 x10^3/uL (0.3-0.8); MONOCYTES % (AUTO) 5.7 % (0.0-13.0); NEUTROPHILS # (AUTO) 9.4 x10^3/uL (2.2-4.8); NEUTROPHILS % (AUTO) 81.6 % (42.0-75.0); PLATELET COUNT 304 X10^3/uL (150.0-450.0); RED BLOOD COUNT 4.58 X10^6/uL (4.7-6.0); RED CELL DISTRIBUTION WIDTH 17.1 % (11.6-16.5); WHITE BLOOD COUNT 11.5 X10^3/uL (3.6-10.0)
[2019-01-18] MEDS ORDERED: APRESOLINE INJ 20 MG VIAL IVP ONE (12:26)
[2019-01-18] MEDS ORDERED: APRESOLINE INJ 20 MG VIAL ONE (12:31)
[2019-01-18 12:33] LABS: BLOOD UREA NITROGEN 16 mg/dL (7-18); CALCIUM 10.2 mg/dL (8.5-10.1); CARBON DIOXIDE 31.3 mmol/L (21-32); CHLORIDE 98 mmol/L (98-107); COR NA(FOR HYPERGLY) 147 mmol/L (136-145); CREATININE 1.07 mg/dL (0.70-1.30); SODIUM 141 mmol/L (136-145); eGFR NON BLACK RACES > 60 (>60)
[2019-01-18 12:37] LABS: PLATELET MORPHOLOGY COMMENT NORMAL (NORMAL)
[2019-01-18 12:38] LABS: HYPOCHROMASIA SLIGHT; MICROCYTOSIS SLIGHT
[2019-01-18] MEDS ORDERED: COMPAZINE INJ IVP ONE (13:51)
[2019-01-18] MEDS ORDERED: COMPAZINE INJ ONE (13:54)
[2019-01-18] MEDS ORDERED: TYLENOL 325 MG TAB PO PRN (15:54)
[2019-01-18 16:27] VITALS: BMI 23.4
[2019-01-18] MEDS ORDERED: DEMEROL INJ IVP PRN (17:55)
[2019-01-18] MEDS ORDERED: DEMEROL INJ ONE (18:03)
[2019-01-18] MEDS: ZOFRAN INJ 4 MG VIAL IVP PRN (18:10)
[2019-01-18] MEDS ORDERED: POTASSIUM CHL 60 MEQ/NS 0.45% 500 ML IV PRN (19:09)
[2019-01-18] MEDS ORDERED: POTASSIUM CHLORIDE LIQ 20 MEQ UDC PO PRN (19:09)
[2019-01-18] MEDS ORDERED: K-RIDER 10 MEQ/NS 100 ML 10 MEQ/100 ML BAG IV PRN (19:09)
[2019-01-18] MEDS ORDERED: POTASSIUM CHL 40 MEQ/NS 0.45% 500 ML IV PRN (19:09)
[2019-01-18] MEDS ORDERED: MICRO K EXTEN CAP 10 MEQ PO PRN (19:09)
[2019-01-18] MEDS ORDERED: K-DUR TAB 20 MEQ PO PRN (19:09)
[2019-01-18] MEDS ORDERED: KLOR-CON PO PRN (19:09)
[2019-01-18] MEDS: NS + KCL 20 MEQ/L 1,000 ML IV SCH (20:22)
[2019-01-18] MEDS: DEMEROL INJ IVP PRN (20:35)
[2019-01-18] MEDS ORDERED: PEPCID TAB 20 MG PO SCH (21:00)
[2019-01-18] MEDS: PEPCID 20 MG IV PREMIX* 20 MG/50 ML BAG IV SCH (21:01)
[2019-01-18] MEDS ORDERED: ZOFRAN INJ 4 MG VIAL 16 MG, ATIVAN INJ 2 MG VIAL 1 MG, DECADRON INJ 10 MG in NS 50 ML I... IV PRN (21:01)
[2019-01-18] MEDS: SNACK - Diabetic Appropriate PO SCH (21:01)
[2019-01-18] MEDS: MAGNESIUM SULFATE 1 GRAM/100 mL PREMIX 1 GM/100 ML BAG IV PRN ×2 (21:02→23:45)
[2019-01-18] MEDS: HumuLIN R SUBCUT PRN (23:46)
[2019-01-19] MEDS: DEMEROL INJ IVP PRN ×4 (01:17→22:02)
[2019-01-19] MEDS: NS + KCL 20 MEQ/L 1,000 ML IV SCH ×4 (05:51→21:49)
[2019-01-19] MEDS: HumuLIN R SUBCUT PRN ×3 (05:53→22:25)
[2019-01-19] MEDS: ZOFRAN INJ 4 MG VIAL IVP PRN ×2 (06:38→22:09)
[2019-01-19 06:40] LABS: BASOPHILS % (AUTO) 0.3 % (0.2-1.0); HEMATOCRIT 33.2 % (42.0-54.0); HEMOGLOBIN 10.8 g/dL (13.5-18.0); LYMPHOCYTES # (AUTO) 1.4 X10^3/uL (1.3-2.9); LYMPHOCYTES % (AUTO) 9.2 % (21.0-51.0); MEAN CORPUSCULAR HEMOGLOBIN 24.1 pg (27.0-34.0); MEAN CORPUSCULAR HGB CONC 32.4 g/dL (33.0-35.0); MEAN CORPUSCULAR VOLUME 74.4 fL (80.0-100.0); MEAN PLATELET VOLUME 8.3 fL (7.4-11.0); MONOCYTES % (AUTO) 6.9 % (0.0-13.0); NEUTROPHILS # (AUTO) 12.4 x10^3/uL (2.2-4.8); NEUTROPHILS % (AUTO) 83.6 % (42.0-75.0); PLATELET COUNT 312 X10^3/uL (150.0-450.0); RED BLOOD COUNT 4.45 X10^6/uL (4.7-6.0); RED CELL DISTRIBUTION WIDTH 17.5 % (11.6-16.5); WHITE BLOOD COUNT 14.8 X10^3/uL (3.6-10.0)
[2019-01-19 07:00] LABS: SERUM ACETONE NEGATIVE (NEGATIVE)
[2019-01-19 07:01] LABS: ALANINE AMINOTRANSFERASE 15 Units/L (12-78); ALBUMIN 3.7 g/dL (3.4-5.0); ALKALINE PHOSPHATASE 129 Units/L (46-116); ASPARTATE AMINO TRANSFERASE 10 Units/L (15-37); BLOOD UREA NITROGEN 18 mg/dL (7-18); CARBON DIOXIDE 29.2 mmol/L (21-32); CHLORIDE 103 mmol/L (98-107); COR NA(FOR HYPERGLY) 149 mmol/L (136-145); CREATININE 1.26 mg/dL (0.70-1.30); SODIUM 143 mmol/L (136-145); TOTAL PROTEIN 8.2 g/dL (6.4-8.2); eGFR NON BLACK RACES > 60 (>60)
[2019-01-19 07:18] LABS: HYPOCHROMASIA SLIGHT; PLATELET MORPHOLOGY COMMENT NORMAL (NORMAL)
[2019-01-19] MEDS ORDERED: NORCO 10/325 TAB PO PRN (08:23)
[2019-01-19] MEDS ORDERED: LEVSIN SYRUP PO PRN (08:23)
[2019-01-19] MEDS ORDERED: PHENERGAN TAB 25 MG PO PRN (08:23)
--- NOTE | 2019-01-19 08:41 | DR.UPDATE ---
H&P Update History and Physical Update: History and Physical reviewed and patient examined. Changes noted: Yes with the following: H&P WAS COMPLETED WITH HIS LAST VISIT ON 01/10/19. HE RETURNED TO THE ER TODAY WITH SAME COMPLAINTS OF ABDOMINAL PAIN, NAUSEA, AND VOMITING. HE HAS A HISTORY OF SEVERE GASTRPARESIS. HE REPORTED THAT SYMPTOMS STARTED APPROXIMATELY 12 HOURS PRIOR TO ARRIVAL. HE REPORTS BEING UNABLE TO KEEP ANY OF HIS MEDICATIONS DOWN DUE TO PERSISTENT VOMITING. ON ARRIVAL, VITALS WERE 98.2-125-24-99%-198/102. LABS WERE OBTAINED. ABNORMAL LAB VALUES INCLUDE THE FOLLOWING: WBC 11.5, RBC 4.58, HGB 11.1, HCT 33.9, CORRECTED SODIUM 147, GLUCOSE 344, CALCIUM 10.2, MAGNESIUM 1.6. EKG OBTAINED AND REVEALED: SINUS TACHYCARDIA WITH HR 117. HE WAS GIVEN DILAUDID 2MG IV X 1, COMPAZINE 10MG IV X 1, APRESOLINE 10MG IV X 1, ZOFRAN 4MG IV X 1, AND STARTED ON NORMAL SALINE AT 125ML/HR IN THE ER WITH ONLY MILD IMPROVEMENT IN SYMPTOMS. HE WAS ADMITTED TO THE HOSPITAL FOR FURTHER EVALUATION AND TREATMENT OF DIABETIC GASTROPARESIS, ABDOMINAL PAIN, AND VOMITING. HE WAS STARTED ON PEPCID 20MG IV Q12H, ZOFRAN COCKTAIL IV Q8H PRN, MAGNESIUM AND POTASSIUM PROTOCOLS, AND HUMULIN R SLIDIDNG SCALE. WE PLAN TO FOLLOW UP WITH AM LABS AND CONTINUE TO MONITOR.
[2019-01-19] MEDS ORDERED: CATAPRES-TTS-3 TD SCH (09:00)
[2019-01-19] MEDS ORDERED: ZITHROMAX INJ 500 MG VIAL 250 MG in NS 250 ML IV 250 ML IV SCH (09:00)
--- NOTE | 2019-01-19 09:18 | RAD ---
Chest AP portable Indication: Dyspnea. Comparison: 12/24/2018 Findings: Port-A-Cath tip is over the SVC. Monitoring leads obscure minimal detail. There is no pneumothorax, effusion or consolidation. Heart size within normal limits for technique. Lungs appear hyperinflated. Impression: Mild COPD, without overt edema or dense consolidation seen. Reported By:
--- NOTE | 2019-01-19 09:25 | RAD ---
HISTORY: Abdominal pain Study: KUB Comparison: 12/05/2018 Findings: The abdominal gas pattern is nonspecific and nonobstructive. No abnormal masses or abnormal calcifications are identified. Surgical clips are present in the right upper quadrant. The regional skeleton is intact. IMPRESSION: Reported By:
[2019-01-19] MEDS: PEPCID 20 MG IV PREMIX* 20 MG/50 ML BAG IV SCH ×2 (10:08→21:51)
[2019-01-19] MEDS: GLUCOTROL PO SCH (10:11)
[2019-01-19] MEDS: COZAAR PO SCH (10:11)
[2019-01-19] MEDS: K-DUR TAB 20 MEQ PO SCH (10:11)
[2019-01-19] MEDS: PROTONIX TAB 40 MG PO SCH ×2 (10:11→21:51)
[2019-01-19] MEDS: NORVASC TAB 5 MG PO SCH (10:12)
[2019-01-19] MEDS: NEURONTIN CAP 300 MG PO SCH ×2 (14:20→21:51)
[2019-01-19 16:32] LABS: BILIRUBIN,URINE NEGATIVE (NEGATIVE); BLOOD/HEMOGLOBIN,URINE NEGATIVE (NEGATIVE); GLUCOSE, URINE 4+ (NEGATIVE); KETONES,URINE NEGATIVE (NEGATIVE); LEUKOCYTE ESTERASE ,URINE NEGATIVE (NEGATIVE); NITRITES,URINE NEGATIVE (NEGATIVE); PROTEIN,URINE 2+ (NEGATIVE); UROBILINOGEN,URINE NORMAL (NORMAL)
[2019-01-19 16:40] LABS: APPEARANCE,URINE CLEAR (CLEAR); COLOR,URINE YELLOW (YELLOW); RBC,URINE 0-2 /HPF (NONE SEEN)
[2019-01-19 16:41] LABS: BACTERIA,URINE NEGATIVE /HPF (NEGATIVE); MUCUS,URINE RARE /HPF (NEGATIVE); SQUAMOUS EPITHELIAL CELL,UR NEGATIVE /HPF (NEGATIVE)
[2019-01-19] MEDS ORDERED: SNACK - Diabetic Appropriate PO SCH (20:00)
[2019-01-19] MEDS ORDERED: RESTORIL CAP 30 MG PO SCH (21:00)
[2019-01-19] MEDS ORDERED: REMERON PO SCH (21:00)
[2019-01-19] MEDS: SNACK - Diabetic Appropriate PO SCH (21:50)
[2019-01-20] MEDS: NS + KCL 20 MEQ/L 1,000 ML IV SCH ×4 (02:55→12:44)
[2019-01-20] MEDS: NEURONTIN CAP 300 MG PO SCH (05:43)
[2019-01-20] MEDS: HumuLIN R SUBCUT PRN (05:50)
[2019-01-20 06:37] LABS: SERUM ACETONE NEGATIVE (NEGATIVE)
[2019-01-20 06:41] LABS: BASOPHILS % (AUTO) 0.2 % (0.2-1.0); EOSINOPHILS % (AUTO) 0.1 % (0.9-2.9); HEMATOCRIT 28.8 % (42.0-54.0); HEMOGLOBIN 9.5 g/dL (13.5-18.0); LYMPHOCYTES # (AUTO) 1.1 X10^3/uL (1.3-2.9); LYMPHOCYTES % (AUTO) 11.5 % (21.0-51.0); MEAN CORPUSCULAR HEMOGLOBIN 24.6 pg (27.0-34.0); MEAN CORPUSCULAR HGB CONC 32.9 g/dL (33.0-35.0); MEAN CORPUSCULAR VOLUME 74.6 fL (80.0-100.0); MEAN PLATELET VOLUME 8.6 fL (7.4-11.0); MONOCYTES # (AUTO) 0.5 x10^3/uL (0.3-0.8); MONOCYTES % (AUTO) 5.4 % (0.0-13.0); NEUTROPHILS # (AUTO) 7.7 x10^3/uL (2.2-4.8); NEUTROPHILS % (AUTO) 82.8 % (42.0-75.0); PLATELET COUNT 247 X10^3/uL (150.0-450.0); RED BLOOD COUNT 3.85 X10^6/uL (4.7-6.0); RED CELL DISTRIBUTION WIDTH 17.6 % (11.6-16.5); WHITE BLOOD COUNT 9.3 X10^3/uL (3.6-10.0)
[2019-01-20 06:57] LABS: ALANINE AMINOTRANSFERASE 11 Units/L (12-78); ALBUMIN 2.9 g/dL (3.4-5.0); ALKALINE PHOSPHATASE 98 Units/L (46-116); ASPARTATE AMINO TRANSFERASE 12 Units/L (15-37); BLOOD UREA NITROGEN 14 mg/dL (7-18); CALCIUM 8.2 mg/dL (8.5-10.1); CARBON DIOXIDE 25.5 mmol/L (21-32); CHLORIDE 104 mmol/L (98-107); COR CA(FOR HYPOALB) 9.1 mg/dL (8.5-10.1); COR NA(FOR HYPERGLY) 141 mmol/L (136-145); CREATININE 0.93 mg/dL (0.70-1.30); SODIUM 137 mmol/L (136-145); TOTAL PROTEIN 6.7 g/dL (6.4-8.2); eGFR NON BLACK RACES > 60 (>60)
[2019-01-20 07:13] LABS: PLATELET MORPHOLOGY COMMENT NORMAL (NORMAL)
[2019-01-20] MEDS ORDERED: ZITHROMAX INJ 500 MG VIAL 500 MG in NS 250 ML IV 250 ML IV SCH (09:00)
[2019-01-20] MEDS: PEPCID 20 MG IV PREMIX* 20 MG/50 ML BAG IV SCH (09:34)
[2019-01-20] MEDS: PROTONIX TAB 40 MG PO SCH (09:34)
[2019-01-20] MEDS: COZAAR PO SCH (09:35)
[2019-01-20] MEDS: K-DUR TAB 20 MEQ PO SCH (09:35)
[2019-01-20] MEDS: GLUCOTROL PO SCH (09:35)
[2019-01-20] MEDS: NORVASC TAB 5 MG PO SCH (09:37)
[2019-01-20 10:22] VITALS: BP 150/85
--- NOTE | 2019-01-26 11:03 | PCM.PROG ---
Progress Note - Progress Note for Day of Date of Exam: 01/19/19 - Subjective Subjective: WAS ADMITTED FOR INTRACTABLE NAUSEA OR VOMITING, DIABETIC GASTROPARESIS, AND ABDOMINAL PAIN. HE CONTINUES WITH NAUSEA AND VOMITING TODAY. ON EXAMINATION, HEART IS REGULAR IN RATE AND RHYTHM. BILATERAL LUNGS ARE CLEAR TO AUSCULTATION. ABDOMEN IS ROUND, SOFT, AND NOTED WITH MILD, DIFFUSE TENDERNESS. HYPERACTIVE BOWEL SOUNDS NOTED. HIS VITALS THIS MORNING ARE 97.7-93-20-97%-176/98. LABS WERE OBTAINED. ABNORMAL LAB VALUES INCLUDE THE FOLLOWING: WBC 14.8, RBC 4.45, HGB 10.8, HCT 33.2, CORRECTED SODIUM 149, GLUCOSE 357, AST 10, ALK PHOSPHATASE 129. HE IS CURRENTLY RECEIVING NORMAL SALINE WITH 20MEQ KCL AT 125ML/HR, ZOFRAN COCKTAIL, HUMULIN R SLIDING SCALE, DEMEROL 25-50MG IV Q4H PRN, AND HOME MEDICATIONS WERE RESUMED. WE WILL CONTINUE WITH CURRENT PLAN OF CARE TODAY AND INCREASE HIS DIET TO FULL LIQUIDS. WE WILL OBTAIN CHEST XRAY AND A URINALYSIS TODAY. OTHERWISE, WE WILL FOLLOW UP WITH AM LABS AND CONTINUE TO MONITOR. - Past Medical Family Social History Past Med/Fam/Surg Hx: No changes since H&P Allergies: Allergies codeine Allergy (Verified 01/24/19 20:08) morphine Allergy (Verified 01/24/19 20:08) - Review of Systems ROS: No change since H&P - Vital Signs and I&O's Vital Signs: Temperature 98.1 F Pulse Rate [Right Brachial] 88 Pulse Rate 119 Respiratory Rate 18 Blood Pressure [Right Arm] 150/85 Blood Pressure [Left Arm] 177/117 Blood Pressure [Left Radial 160/102 Artery] Blood Pressure 118/68 O2 Sat by Pulse Oximetry 99 - Physical Exam Oriented: Normal Eyes: Normal Ear: Normal Nose: Normal Throat: Normal Respiratory: Normal Cardiovascular: Normal : Normal Auscultation: Bowel Sounds: Increased Palpation: Normal Tenderness: Diffuse, Moderate. negative: Rebound, Guarding, Rigidity Skin: Normal Musculoskeletal: Normal Psychiatric: Normal Mood Description: Calm Affect: Normal Speech Pattern: Clear, Appropriate - Laboratory and Diagnostics Result Diagrams: 01/20/19 05:22 01/20/19 05:22 Labs: Laboratory WBC 9.3 X10^3/uL (3.6-10.0) 01/20/19 05:22 RBC 3.85 X10^6/uL (4.7-6.0) L 01/20/19 05:22 Hgb 9.5 g/dL (13.5-18.0) L 01/20/19 05:22 Hct 28.8 % (42.0-54.0) L 01/20/19 05:22 MCV 74.6 fL (80.0-100.0) L 01/20/19 05:22 MCH 24.6 pg (27.0-34.0) L 01/20/19 05:22 MCHC 32.9 g/dL (33.0-35.0) L 01/20/19 05:22 RDW 17.6 % (11.6-16.5) H 01/20/19 05:22 Plt Count 247 X10^3/uL (150.0-450.0) 01/20/19 05:22 Plt Count Comment Adequate (ADEQUATE) 01/20/19 05:22 MPV 8.6 fL (7.4-11.0) 01/20/19 05:22 Neut % (Auto) 82.8 % (42.0-75.0) H 01/20/19 05:22 Lymph % (Auto) 11.5 % (21.0-51.0) L 01/20/19 05:22 [place] % (Auto) 5.4 % (0.0-13.0) 01/20/19 05:22 Eos % (Auto) 0.1 % (0.9-2.9) L 01/20/19 05:22 Baso % (Auto) 0.2 % (0.2-1.0) 01/20/19 05:22 Neut # (Auto) 7.7 x10^3/uL (2.2-4.8) H 01/20/19 05:22 Lymph # (Auto) 1.1 X10^3/uL (1.3-2.9) L 01/20/19 05:22 [place] # (Auto) 0.5 x10^3/uL (0.3-0.8) 01/20/19 05:22 Eos # (Auto) 0.0 x10^3/uL (0.0-0.2) 01/20/19 05:22 Baso # (Auto) 0.0 X10^3/uL (0.0-0.1) 01/20/19 05:22 Absolute Nucleated RBC 0.0 /100WBC 01/20/19 05:22 Total Counted 100 01/18/19 12:18 Neutrophils % (Manual) 82 % (39-76) H 01/18/19 12:18 Lymphocytes % (Manual) 15 % (13-43) 01/18/19 12:18 Monocytes % (Manual) 3 % (4-9) L 01/18/19 12:18 Plt Morphology Comment Normal (NORMAL) 01/20/19 05:22 RBC Morphology Normal (NORMAL) 01/20/19 05:22 Hypochromasia Slight A 01/19/19 05:43 Microcytosis Slight A 01/18/19 12:18 Sodium 137 mmol/L (136-145) 01/20/19 05:22 Corrected Sodium 141 mmol/L (136-145) 01/20/19 05:22 Potassium 4.7 mmol/L (3.5-5.1) 01/20/19 05:22 Chloride 104 mmol/L (98-107) 01/20/19 05:22 Carbon Dioxide 25.5 mmol/L (21-32) 01/20/19 05:22 BUN 14 mg/dL (7-18) 01/20/19 05:22 Creatinine 0.93 mg/dL (0.70-1.30) 01/20/19 05:22 Est GFR (MDRD) Af Amer > 60 (>60) 01/20/19 05:22 Est GFR (MDRD) Non-Af > 60 (>60) 01/20/19 05:22 Glucose 256 mg/dL (65-99) H 01/20/19 05:22 Calcium 8.2 mg/dL (8.5-10.1) L 01/20/19 05:22 Corrected Calcium 9.1 mg/dL (8.5-10.1) 01/20/19 05:22 Magnesium 2.6 mg/dL (1.7-2.9) 01/19/19 05:43 Total Bilirubin 0.30 mg/dL (0.2-1.0) 01/20/19 05:22 AST 12 Units/L (15-37) L 01/20/19 05:22 ALT 11 Units/L (12-78) L 01/20/19 05:22 Alkaline Phosphatase 98 Units/L (46-116) 01/20/19 05:22 Total Protein 6.7 g/dL (6.4-8.2) 01/20/19 05:22 Albumin 2.9 g/dL (3.4-5.0) L 01/20/19 05:22 Globulin 3.8 g/dL (2.5-4.5) 01/20/19 05:22 Albumin/Globulin Ratio 0.8 Ratio (1.1-2.1) L 01/20/19 05:22 Specimen Type Clean catch urine 01/19/19 16:20 Urine Color Yellow (YELLOW) 01/19/19 16:20 Urine Appearance Clear (CLEAR) 01/19/19 16:20 Urine pH 8.0 (5.0 - 8.0) 01/19/19 16:20 Ur Specific [place] 1.010 (1.000-1.030) 01/19/19 16:20 Urine Protein 2+ (NEGATIVE) 01/19/19 16:20 Urine Glucose (UA) 4+ (NEGATIVE) 01/19/19 16:20 Urine Ketones Negative (NEGATIVE) 01/19/19 16:20 Urine Occult Blood Negative (NEGATIVE) 01/19/19 16:20 Urine Nitrite Negative (NEGATIVE) 01/19/19 16:20 Urine Bilirubin Negative (NEGATIVE) 01/19/19 16:20 Urine Urobilinogen Normal (NORMAL) 01/19/19 16:20 Ur Leukocyte Esterase Negative (NEGATIVE) 01/19/19 16:20 Urine RBC 0-2 /HPF (NONE SEEN) 01/19/19 16:20 Urine WBC 0-2 /HPF (NONE SEEN) 01/19/19 16:20 Ur Squamous Epith Cells Negative /HPF (NEGATIVE) 01/19/19 16:20 Urine Bacteria Negative /HPF (NEGATIVE) 01/19/19 16:20 Urine Mucus Rare /HPF (NEGATIVE) 01/19/19 16:20 Ur Culture Indicated? No/not indicated 01/19/19 16:20 Acetone, Semi-Quant Negative (NEGATIVE) 01/20/19 05:22 - Plan (1) Diabetic gastroparesis Status: Acute Plan: IV FLUIDS, HUMULIN R SLIDING SCALE, ZOFRAN COCTAIL, PAIN CONTROL, CONTINUE TO MONITOR (2) Hypertension, uncontrolled Status: Acute Plan: CONTINUE HOME MEDS, APRESOLINE, CONTINUE TO MONITOR (3) Intractable vomiting with nausea Status: Acute Qualifiers: Vomiting type: cyclical vomiting Qualified Code(s): G43.A1 - Cyclical vomiting, intractable Plan: ZOFRAN COCKTAIL, CONTINUE TO MONITOR
== END 2019-01-20 13:20 | disposition home or self-care (01) | DRG 74 ==
LOC: MED/SURG 11:37 → ER 11:37 → OBSVTOIN 14:06 → MED/SURG 15:03
PROVIDERS: ADMIT Internal Medicine; ATTEND Internal Medicine
DX: K31.84 Gastroparesis; E11.43 Type 2 diabetes mellitus with diabetic autonomic (poly)neuropathy; R11.2 Nausea with vomiting, unspecified; R10.84 Generalized abdominal pain
CPT/HCPCS: 36415; 71010; 71045; 74000; 74018; 80048; 80053; 81001; 82009; 82947; 83735; 85025; 93005; 96365; 96367; 96374; 96375; 99284; A4222; S0028; G0378; J0360; J0456; J0780; J1100; J1170; J1815; J2060; J2175; J2405; J3475; J7030; J7050

== ENCOUNTER 2019-01-24 19:11 | Inpatient (IN) ==
[2019-01-24] MEDS ORDERED: NS 1000 ML 1,000 ML ONE ×3 (19:44→22:37)
[2019-01-24] MEDS ORDERED: NS 1000 ML 1,000 ML IV ONE ×2 (19:49→20:59)
[2019-01-24] MEDS ORDERED: PHENERGAN INJ 25 MG IM ONE ×2 (20:05→20:09)
[2019-01-24] MEDS ORDERED: DEMEROL INJ IVP ONE ×2 (20:05→20:59)
[2019-01-24] MEDS ORDERED: DEMEROL INJ ONE ×2 (20:09→21:55)
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
[2019-01-24 20:19] LABS: BASOPHILS # (AUTO) 0.1 X10^3/uL (0.0-0.1); BASOPHILS % (AUTO) 0.5 % (0.2-1.0); HEMATOCRIT 34.9 % (42.0-54.0); HEMOGLOBIN 11.2 g/dL (13.5-18.0); LYMPHOCYTES # (AUTO) 0.8 X10^3/uL (1.3-2.9); LYMPHOCYTES % (AUTO) 7.2 % (21.0-51.0); MEAN CORPUSCULAR HEMOGLOBIN 24.1 pg (27.0-34.0); MEAN CORPUSCULAR HGB CONC 32.2 g/dL (33.0-35.0); MEAN CORPUSCULAR VOLUME 74.6 fL (80.0-100.0); MEAN PLATELET VOLUME 9.4 fL (7.4-11.0); MONOCYTES # (AUTO) 0.1 x10^3/uL (0.3-0.8); NEUTROPHILS # (AUTO) 10.2 x10^3/uL (2.2-4.8); NEUTROPHILS % (AUTO) 91.3 % (42.0-75.0); PLATELET COUNT 380 X10^3/uL (150.0-450.0); RED BLOOD COUNT 4.67 X10^6/uL (4.7-6.0); RED CELL DISTRIBUTION WIDTH 17.3 % (11.6-16.5); WHITE BLOOD COUNT 11.1 X10^3/uL (3.6-10.0)
[2019-01-24 20:26] LABS: ALANINE AMINOTRANSFERASE 14 Units/L (12-78); ALBUMIN 4.1 g/dL (3.4-5.0); ALKALINE PHOSPHATASE 129 Units/L (46-116); AMYLASE 178 Units/L (25-115); ASPARTATE AMINO TRANSFERASE 12 Units/L (15-37); BLOOD UREA NITROGEN 17 mg/dL (7-18); CALCIUM 11.8 mg/dL (8.5-10.1); CARBON DIOXIDE 30.9 mmol/L (21-32); CHLORIDE 92 mmol/L (98-107); COR NA(FOR HYPERGLY) 144 mmol/L (136-145); CREATININE 1.37 mg/dL (0.70-1.30); LIPASE 347 Units/L (73-393); SODIUM 137 mmol/L (136-145); TOTAL PROTEIN 8.6 g/dL (6.4-8.2); eGFR NON BLACK RACES 59 (>60)
[2019-01-24 20:41] LABS: HYPOCHROMASIA SLIGHT; MICROCYTOSIS SLIGHT; PLATELET MORPHOLOGY COMMENT NORMAL (NORMAL)
[2019-01-24] MEDS: NS 1000 ML 1,000 ML IV ONE ×2 (20:58→22:40)
[2019-01-24] MEDS ORDERED: ZOFRAN INJ 4 MG VIAL IVP ONE (20:59)
[2019-01-24] MEDS ORDERED: ZOFRAN INJ 4 MG VIAL ONE ×2 (21:55→23:55)
[2019-01-24] MEDS ORDERED: APRESOLINE INJ 20 MG VIAL IVP ONE (22:13)
[2019-01-24] MEDS ORDERED: APRESOLINE INJ 20 MG VIAL ONE (22:23)
[2019-01-24] MEDS ORDERED: APRESOLINE INJ 20 MG VIAL IVP PRN (23:08)
[2019-01-24] MEDS: HumuLIN R SUBCUT PRN (23:21)
[2019-01-24] MEDS ORDERED: NS 100 ML IV 100 ML ONE (23:55)
[2019-01-24] MEDS ORDERED: DECADRON INJ PRESERVATIVE-FREE IM ONE (23:55)
[2019-01-25] MEDS: ZOFRAN INJ 4 MG VIAL 16 MG, ATIVAN INJ 2 MG VIAL 1 MG, DECADRON INJ 10 MG in NS 50 ML I... IV PRN (00:06)
[2019-01-25] MEDS ORDERED: MAALOX or MYLANTA ONE (00:38)
[2019-01-25 00:39] LABS: BILIRUBIN,URINE NEGATIVE (NEGATIVE); BLOOD/HEMOGLOBIN,URINE 1+ (NEGATIVE); GLUCOSE, URINE 4+ (NEGATIVE); KETONES,URINE 4+ (NEGATIVE); LEUKOCYTE ESTERASE ,URINE NEGATIVE (NEGATIVE); NITRITES,URINE NEGATIVE (NEGATIVE); PROTEIN,URINE 2+ (NEGATIVE); UROBILINOGEN,URINE NORMAL (NORMAL)
[2019-01-25] MEDS: MAALOX or MYLANTA PO PRN ×5 (00:42→21:29)
[2019-01-25 00:50] LABS: APPEARANCE,URINE CLEAR (CLEAR); BACTERIA,URINE NEGATIVE /HPF (NEGATIVE); COLOR,URINE STRAW (YELLOW); RBC,URINE 0-2 /HPF (NONE SEEN); SQUAMOUS EPITHELIAL CELL,UR RARE /HPF (NEGATIVE)
[2019-01-25] MEDS: DEMEROL INJ IVP PRN ×4 (03:15→23:51)
[2019-01-25] MEDS: NS 1000 ML 1,000 ML IV SCH ×6 (04:35→23:52)
[2019-01-25 05:17] LABS: BASOPHILS % (AUTO) 0.2 % (0.2-1.0); HEMATOCRIT 31.6 % (42.0-54.0); LYMPHOCYTES # (AUTO) 0.5 X10^3/uL (1.3-2.9); LYMPHOCYTES % (AUTO) 4.2 % (21.0-51.0); MEAN CORPUSCULAR HEMOGLOBIN 24.1 pg (27.0-34.0); MEAN CORPUSCULAR HGB CONC 31.8 g/dL (33.0-35.0); MEAN CORPUSCULAR VOLUME 75.6 fL (80.0-100.0); MEAN PLATELET VOLUME 9.2 fL (7.4-11.0); MONOCYTES # (AUTO) 0.1 x10^3/uL (0.3-0.8); MONOCYTES % (AUTO) 1.1 % (0.0-13.0); NEUTROPHILS # (AUTO) 10.7 x10^3/uL (2.2-4.8); NEUTROPHILS % (AUTO) 94.5 % (42.0-75.0); PLATELET COUNT 309 X10^3/uL (150.0-450.0); RED BLOOD COUNT 4.17 X10^6/uL (4.7-6.0); RED CELL DISTRIBUTION WIDTH 17.5 % (11.6-16.5); WHITE BLOOD COUNT 11.3 X10^3/uL (3.6-10.0)
[2019-01-25 05:30] LABS: ALANINE AMINOTRANSFERASE 12 Units/L (12-78); ALBUMIN 3.2 g/dL (3.4-5.0); ALKALINE PHOSPHATASE 102 Units/L (46-116); ASPARTATE AMINO TRANSFERASE 11 Units/L (15-37); BLOOD UREA NITROGEN 20 mg/dL (7-18); CALCIUM 9.4 mg/dL (8.5-10.1); CARBON DIOXIDE 31.1 mmol/L (21-32); CHLORIDE 99 mmol/L (98-107); COR NA(FOR HYPERGLY) 148 mmol/L (136-145); CREATININE 1.21 mg/dL (0.70-1.30); SODIUM 140 mmol/L (136-145); TOTAL PROTEIN 7.2 g/dL (6.4-8.2); eGFR NON BLACK RACES > 60 (>60)
[2019-01-25 05:44] VITALS: BMI 24.3
[2019-01-25 05:58] LABS: PLATELET MORPHOLOGY COMMENT NORMAL (NORMAL)
[2019-01-25 05:59] LABS: ANISOCYTOSIS SLIGHT; HYPOCHROMASIA 1+
[2019-01-25] MEDS: HumuLIN R SUBCUT PRN ×3 (05:59→16:01)
[2019-01-25 06:21] LABS: AMYLASE 93 Units/L (25-115); LIPASE 225 Units/L (73-393)
[2019-01-25] MEDS ORDERED: PEPCID 20 MG IV PREMIX* 50 ML IV SCH (09:00)
--- NOTE | 2019-01-25 14:12 | DR.UPDATE ---
H&P Update History and Physical Update: History and Physical reviewed and patient examined. Changes noted: Yes with the following: H&P WAS COMPLETED WITH HIS VISIT ON 01/10/19. HE RETURNED TO THE ER TODAY WITH SAME COMPLAINTS OF ABDOMINAL PAIN, NAUSEA, AND VOMITING. HE WAS DISCHARGED HOME FROM HIS LAST VISIT ON 01/20/19. HE HAS A HISTORY OF SEVERE GASTRPARESIS AND IS GENERALLY NON-COMPLIANT WITH A LIQUID DIET. HE REPORTED THAT SYMPTOMS STARTED EARLIER IN THE DAY. HE REPORTS BEING UNABLE TO KEEP ANY OF HIS MEDICATIONS DOWN DUE TO PERSISTENT VOMITING. ON ARRIVAL, VITALS WERE 97.0-140-20-98%-182/99. ABNORMAL LAB VALUES INCLUDE THE FOLLOWING: WBC 11.1, RBC 4.67, HGB 11.2, HCT 34.9, CHLORIDE 92, CREATININE 1.37, GLUCOSE 391, CALCIUM 11.8, AST 12, ALK PHOS 129, TOTAL PROTEIN 8.6, AMYLASE 178. HE WAS GIVEN DEMEROL 50MG IV X 1, P XHENERGAN 25MG IM X 1, APRESOLINE 10MG IV X 1, ZOFRAN 4MG IV X 1, AND STARTED TWO NORMAL SALINE BOLUS. HE WAS ADMITTED TO THE HOSPITAL FOR FURTHER EVALUATION AND TREATMENT OF DIABETIC GASTROPARESIS, ABDOMINAL PAIN, AND VOMITING. HE WAS STARTED ON NORMAL SALINE AT 125ML/HR, DEMEROL 50MG IV Q6H PRN, APRESOLINE 10MG IV Q4H PRN, ZOFRAN COCTAIL, AND HUMULIN R SLIDIDNG SCALE. WE PLAN TO FOLLOW UP WITH AM LABS AND CONTINUE TO MONITOR.
[2019-01-25] MEDS ORDERED: DIPRIVAN VIAL ONE (14:42)
--- NOTE | 2019-01-25 21:47 | PCM.PROG ---
Progress Note - Progress Note for Day of Date of Exam: 01/25/19 - Subjective Subjective: WAS ADMITTED FOR INTRACTABLE NAUSEA OR VOMITING, DIABETIC GASTROPARESIS, AND ABDOMINAL PAIN. HE CONTINUES WITH NAUSEA AND VOMITING TODAY. ON EXAMINATION, HE IS NOTED TO BE TACHYCARDIC. BILATERAL LUNGS ARE CLEAR TO AUSCULTATION. ABDOMEN IS ROUND, SOFT, AND NOTED WITH MILD, DIFFUSE TENDERNESS. HYPERACTIVE BOWEL SOUNDS NOTED. HIS VITALS THIS MORNING ARE 97.6-122-20-99%-172/100. LABS WERE OBTAINED. ABNORMAL LAB VALUES INCLUDE THE FOLLOWING: WBC 11.3, RBC 4.17, HGB 10.0, HCT 31.6, BUN 20, GLUCOSE 427, AST 11, ALBUMIN 3.2. HE IS CURRENTLY RECEIVING NORMAL SALINE AT 125ML/HR, ZOFRAN COCKTAIL, HUMULIN R SLIDING SCALE, DEMEROL 50MG IV Q6H PRN, AND HOME MEDICATIONS WERE RESUMED. WE WILL CONTINUE WITH CURRENT PLAN OF CARE TODAY AND RESUME HIS HOME MEDICATIONS. OTHERWISE, WE WILL FOLLOW UP WITH AM LABS AND CONTINUE TO MONITOR. - Past Medical Family Social History Past Med/Fam/Surg Hx: No changes since H&P Allergies: Allergies codeine Allergy (Verified 01/24/19 20:08) morphine Allergy (Verified 01/24/19 20:08) - Review of Systems ROS: No change since H&P - Vital Signs and I&O's Vital Signs: Temperature 98.3 F Pulse Rate [Apical] 110 Pulse Rate 140 Respiratory Rate 18 Blood Pressure [Right Arm] 150/85 Blood Pressure [Left Arm] 168/95 Blood Pressure [Left Radial 160/102 Artery] Blood Pressure 182/99 O2 Sat by Pulse Oximetry 98 Intake and Output: Intake & Output 01/23/19 01/24/19 01/25/19 01/26/19 11:59 11:59 11:59 11:59 Intake Total 3600 / 3600 0 / 0 Output Total 325 / 325 Balance 3275 / 3275 0 / 0 - Physical Exam Oriented: Normal Eyes: Normal Ear: Normal Nose: Normal Throat: Normal Respiratory: Normal Cardiovascular: Tachycardia : Normal Auscultation: Bowel Sounds: Increased Palpation: Normal Tenderness: Diffuse, Moderate. negative: Rebound, Guarding, Rigidity Skin: Normal Musculoskeletal: Normal Psychiatric: Normal Mood Description: Calm Affect: Normal Speech Pattern: Clear, Appropriate - Laboratory and Diagnostics Result Diagrams: 01/25/19 04:00 01/25/19 04:00 Labs: Laboratory WBC 11.3 X10^3/uL (3.6-10.0) H 01/25/19 04:00 RBC 4.17 X10^6/uL (4.7-6.0) L 01/25/19 04:00 Hgb 10.0 g/dL (13.5-18.0) L 01/25/19 04:00 Hct 31.6 % (42.0-54.0) L 01/25/19 04:00 MCV 75.6 fL (80.0-100.0) L 01/25/19 04:00 MCH 24.1 pg (27.0-34.0) L 01/25/19 04:00 MCHC 31.8 g/dL (33.0-35.0) L 01/25/19 04:00 RDW 17.5 % (11.6-16.5) H 01/25/19 04:00 Plt Count 309 X10^3/uL (150.0-450.0) 01/25/19 04:00 Plt Count Comment Adequate (ADEQUATE) 01/25/19 04:00 MPV 9.2 fL (7.4-11.0) 01/25/19 04:00 Neut % (Auto) 94.5 % (42.0-75.0) H 01/25/19 04:00 Lymph % (Auto) 4.2 % (21.0-51.0) L 01/25/19 04:00 [place] % (Auto) 1.1 % (0.0-13.0) 01/25/19 04:00 Eos % (Auto) 0.0 % (0.9-2.9) L 01/25/19 04:00 Baso % (Auto) 0.2 % (0.2-1.0) 01/25/19 04:00 Neut # (Auto) 10.7 x10^3/uL (2.2-4.8) H 01/25/19 04:00 Lymph # (Auto) 0.5 X10^3/uL (1.3-2.9) L 01/25/19 04:00 [place] # (Auto) 0.1 x10^3/uL (0.3-0.8) L 01/25/19 04:00 Eos # (Auto) 0.0 x10^3/uL (0.0-0.2) 01/25/19 04:00 Baso # (Auto) 0.0 X10^3/uL (0.0-0.1) 01/25/19 04:00 Absolute Nucleated RBC 0.0 /100WBC 01/25/19 04:00 Total Counted 100 01/25/19 04:00 Neutrophils % (Manual) 95 % (39-76) H 01/25/19 04:00 Lymphocytes % (Manual) 4 % (13-43) L 01/25/19 04:00 Monocytes % (Manual) 1 % (4-9) L 01/25/19 04:00 Plt Morphology Comment Normal (NORMAL) 01/25/19 04:00 RBC Morphology Abnormal (NORMAL) 01/25/19 04:00 Hypochromasia 1+ A 01/25/19 04:00 Anisocytosis Slight A 01/25/19 04:00 Microcytosis Slight A 01/24/19 20:00 Sodium 140 mmol/L (136-145) 01/25/19 04:00 Corrected Sodium 148 mmol/L (136-145) H 01/25/19 04:00 Potassium 4.5 mmol/L (3.5-5.1) 01/25/19 04:00 Chloride 99 mmol/L (98-107) 01/25/19 04:00 Carbon Dioxide 31.1 mmol/L (21-32) 01/25/19 04:00 BUN 20 mg/dL (7-18) H 01/25/19 04:00 Creatinine 1.21 mg/dL (0.70-1.30) 01/25/19 04:00 Est GFR (MDRD) Af Amer > 60 (>60) 01/25/19 04:00 Est GFR (MDRD) Non-Af > 60 (>60) 01/25/19 04:00 Glucose 427 mg/dL (65-99) H 01/25/19 04:00 Calcium 9.4 mg/dL (8.5-10.1) 01/25/19 04:00 Corrected Calcium 10.0 mg/dL (8.5-10.1) 01/25/19 04:00 Total Bilirubin 0.40 mg/dL (0.2-1.0) 01/25/19 04:00 AST 11 Units/L (15-37) L 01/25/19 04:00 ALT 12 Units/L (12-78) 01/25/19 04:00 Alkaline Phosphatase 102 Units/L (46-116) 01/25/19 04:00 Total Protein 7.2 g/dL (6.4-8.2) 01/25/19 04:00 Albumin 3.2 g/dL (3.4-5.0) L 01/25/19 04:00 Globulin 4.0 g/dL (2.5-4.5) 01/25/19 04:00 Albumin/Globulin Ratio 0.8 Ratio (1.1-2.1) L 01/25/19 04:00 Amylase 93 Units/L (25-115) 01/25/19 04:00 Lipase 225 Units/L (73-393) 01/25/19 04:00 Specimen Type Clean catch urine 01/25/19 00:13 Urine Color Straw (YELLOW) 01/25/19 00:13 Urine Appearance Clear (CLEAR) 01/25/19 00:13 Urine pH 8.0 (5.0 - 8.0) 01/25/19 00:13 Ur Specific [place] 1.015 (1.000-1.030) 01/25/19 00:13 Urine Protein 2+ (NEGATIVE) 01/25/19 00:13 Urine Glucose (UA) 4+ (NEGATIVE) 01/25/19 00:13 Urine Ketones 4+ (NEGATIVE) 01/25/19 00:13 Urine Occult Blood 1+ (NEGATIVE) 01/25/19 00:13 Urine Nitrite Negative (NEGATIVE) 01/25/19 00:13 Urine Bilirubin Negative (NEGATIVE) 01/25/19 00:13 Urine Urobilinogen Normal (NORMAL) 01/25/19 00:13 Ur Leukocyte Esterase Negative (NEGATIVE) 01/25/19 00:13 Urine RBC 0-2 /HPF (NONE SEEN) 01/25/19 00:13 Urine WBC None seen /HPF (NONE SEEN) 01/25/19 00:13 Ur Squamous Epith Cells Rare /HPF (NEGATIVE) 01/25/19 00:13 Urine Bacteria Negative /HPF (NEGATIVE) 01/25/19 00:13 Ur Culture Indicated? No/not indicated 01/25/19 00:13 - Plan (1) Diabetic gastroparesis Status: Acute Plan: IV FLUIDS, HUMULIN R SLIDING SCALE, ZOFRAN COCTAIL, PAIN CONTROL, CONTINUE TO MONITOR (2) Hypertension, uncontrolled Status: Acute Plan: CONTINUE HOME MEDS, APRESOLINE, CONTINUE TO MONITOR (3) Intractable vomiting with nausea Status: Acute Qualifiers: Vomiting type: unspecified Plan: ZOFRAN COCKTAIL, CONTINUE TO MONITOR
[2019-01-25] MEDS: ATIVAN INJ 2 MG VIAL ONE ×2 (22:44→22:45)
[2019-01-26] MEDS: ZOFRAN INJ 4 MG VIAL 16 MG, ATIVAN INJ 2 MG VIAL 1 MG, DECADRON INJ 10 MG in NS 50 ML I... IV PRN (03:56)
[2019-01-26] MEDS ORDERED: ZOFRAN INJ 4 MG VIAL ONE (04:02)
[2019-01-26] MEDS ORDERED: NS 50 ML IV 50 ML ONE (04:02)
[2019-01-26] MEDS ORDERED: DECADRON INJ PRESERVATIVE-FREE IM ONE (04:02)
[2019-01-26] MEDS ORDERED: ATIVAN INJ 2 MG VIAL ONE (04:03)
[2019-01-26 04:54] LABS: ABG BASE EXCESS 6.1 mmol/L (-2.0-2.0)
[2019-01-26 04:55] LABS: ABG HCO3 31.2 mmol/L (22-26)
[2019-01-26 05:09] LABS: BASOPHILS % (AUTO) 0.1 % (0.2-1.0); HEMATOCRIT 28.1 % (42.0-54.0); HEMOGLOBIN 9.1 g/dL (13.5-18.0); LYMPHOCYTES % (AUTO) 5.1 % (21.0-51.0); MEAN CORPUSCULAR HEMOGLOBIN 24.1 pg (27.0-34.0); MEAN CORPUSCULAR HGB CONC 32.4 g/dL (33.0-35.0); MEAN CORPUSCULAR VOLUME 74.3 fL (80.0-100.0); MEAN PLATELET VOLUME 8.2 fL (7.4-11.0); MONOCYTES # (AUTO) 1.1 x10^3/uL (0.3-0.8); MONOCYTES % (AUTO) 5.7 % (0.0-13.0); NEUTROPHILS % (AUTO) 89.1 % (42.0-75.0); PLATELET COUNT 341 X10^3/uL (150.0-450.0); RED BLOOD COUNT 3.79 X10^6/uL (4.7-6.0); RED CELL DISTRIBUTION WIDTH 17.7 % (11.6-16.5); WHITE BLOOD COUNT 19.1 X10^3/uL (3.6-10.0)
[2019-01-26 05:22] LABS: ALANINE AMINOTRANSFERASE 10 Units/L (12-78); ALBUMIN 3.1 g/dL (3.4-5.0); ALKALINE PHOSPHATASE 85 Units/L (46-116); ASPARTATE AMINO TRANSFERASE 12 Units/L (15-37); BLOOD UREA NITROGEN 27 mg/dL (7-18); CHLORIDE 101 mmol/L (98-107); COR CA(FOR HYPOALB) 8.7 mg/dL (8.5-10.1); COR NA(FOR HYPERGLY) 141 mmol/L (136-145); CREATININE 1.06 mg/dL (0.70-1.30); SODIUM 138 mmol/L (136-145); TOTAL PROTEIN 6.6 g/dL (6.4-8.2); eGFR NON BLACK RACES > 60 (>60)
[2019-01-26 05:30] LABS: ANISOCYTOSIS SLIGHT; HYPOCHROMASIA 1+; PLATELET MORPHOLOGY COMMENT NORMAL (NORMAL)
[2019-01-26] MEDS ORDERED: STERILE WATER IRRIGATION ONE ×2 (09:23→09:30)
[2019-01-26] MEDS: NS 1000 ML 1,000 ML IV SCH ×2 (09:25→18:43)
[2019-01-26] MEDS ORDERED: DIPRIVAN VIAL 20 ML ONE (09:56)
[2019-01-26] MEDS ORDERED: LEVSIN SYRUP PO PRN (10:23)
[2019-01-26] MEDS ORDERED: PHENERGAN TAB 25 MG PO PRN (10:23)
[2019-01-26] MEDS ORDERED: NORCO 10/325 TAB PO PRN (10:23)
[2019-01-26] MEDS ORDERED: CATAPRES-TTS-3 TD SCH (11:00)
[2019-01-26] MEDS ORDERED: PROTONIX INJ 40 MG VIAL IVP SCH (11:00)
[2019-01-26] MEDS: DIFLUCAN 200 MG IV PREMIX* 200 MG/100 ML BAG IV SCH (11:53)
[2019-01-26] MEDS: PROTONIX TAB 40 MG PO SCH ×2 (11:55→20:11)
[2019-01-26] MEDS: GLUCOTROL PO SCH (11:55)
[2019-01-26] MEDS: K-DUR TAB 20 MEQ PO SCH (11:55)
[2019-01-26] MEDS: NEURONTIN CAP 300 MG PO SCH ×3 (11:55→21:44)
[2019-01-26] MEDS: ZITHROMAX TAB 250 MG PO SCH (11:55)
[2019-01-26] MEDS: NORVASC TAB 5 MG PO SCH (11:56)
[2019-01-26] MEDS: COZAAR PO SCH (11:56)
[2019-01-26] MEDS: HumuLIN R SUBCUT PRN ×3 (12:03→20:24)
[2019-01-26] MEDS: DEMEROL INJ IVP PRN ×2 (13:07→20:12)
--- NOTE | 2019-01-26 14:28 | OR.IMMED ---
Immediate Post-Op Note - Immediate Post-Op Note Pre-Op Diagnosis: abdominal pain .esophagitis Post-Op Diagnosis: esophagitis and candidiasis most of the esophagus. esophageal dysmotility disorder . diabetic gastroperisis . duodenitis Procedure: EGD with bx Surgeon/Cotton Sampler: Rox Specimens Removed: Bxs GE junction .stomach , DU Drains: NONE Condition: Stable (on IV Protonix BID .Diflucan , mechanical soft diet)
[2019-01-26] MEDS: MAALOX or MYLANTA PO PRN ×2 (17:45→21:45)
[2019-01-26] MEDS: SNACK - Diabetic Appropriate PO SCH (20:09)
[2019-01-26] MEDS: REMERON PO SCH (20:11)
[2019-01-26] MEDS: RESTORIL CAP 30 MG PO SCH (20:12)
[2019-01-27] MEDS: NS 1000 ML 1,000 ML IV SCH ×5 (01:47→23:55)
[2019-01-27] MEDS: NEURONTIN CAP 300 MG PO SCH ×3 (05:31→21:43)
[2019-01-27 05:52] LABS: BASOPHILS % (AUTO) 0.3 % (0.2-1.0); HEMATOCRIT 25.3 % (42.0-54.0); HEMOGLOBIN 8.2 g/dL (13.5-18.0); LYMPHOCYTES # (AUTO) 1.6 X10^3/uL (1.3-2.9); LYMPHOCYTES % (AUTO) 10.3 % (21.0-51.0); MEAN CORPUSCULAR HEMOGLOBIN 24.3 pg (27.0-34.0); MEAN CORPUSCULAR HGB CONC 32.5 g/dL (33.0-35.0); MEAN PLATELET VOLUME 8.5 fL (7.4-11.0); MONOCYTES % (AUTO) 6.5 % (0.0-13.0); NEUTROPHILS # (AUTO) 12.5 x10^3/uL (2.2-4.8); NEUTROPHILS % (AUTO) 82.9 % (42.0-75.0); PLATELET COUNT 315 X10^3/uL (150.0-450.0); RED BLOOD COUNT 3.38 X10^6/uL (4.7-6.0); RED CELL DISTRIBUTION WIDTH 17.3 % (11.6-16.5); WHITE BLOOD COUNT 15.1 X10^3/uL (3.6-10.0)
[2019-01-27 05:57] LABS: ALANINE AMINOTRANSFERASE 9 Units/L (12-78); ALBUMIN 2.7 g/dL (3.4-5.0); ALKALINE PHOSPHATASE 79 Units/L (46-116); ASPARTATE AMINO TRANSFERASE 8 Units/L (15-37); BLOOD UREA NITROGEN 19 mg/dL (7-18); CALCIUM 7.5 mg/dL (8.5-10.1); CARBON DIOXIDE 28.4 mmol/L (21-32); CHLORIDE 106 mmol/L (98-107); COR CA(FOR HYPOALB) 8.5 mg/dL (8.5-10.1); CREATININE 0.86 mg/dL (0.70-1.30); SODIUM 140 mmol/L (136-145); TOTAL PROTEIN 6.3 g/dL (6.4-8.2); eGFR NON BLACK RACES > 60 (>60)
[2019-01-27 06:16] LABS: ANISOCYTOSIS SLIGHT; HYPOCHROMASIA 1+; PLATELET MORPHOLOGY COMMENT NORMAL (NORMAL)
[2019-01-27 06:22] LABS: SERUM ACETONE NEGATIVE (NEGATIVE)
[2019-01-27] MEDS: DIFLUCAN 200 MG IV PREMIX* 200 MG/100 ML BAG IV SCH (10:22)
[2019-01-27] MEDS: K-DUR TAB 20 MEQ PO SCH (10:25)
[2019-01-27] MEDS: ZITHROMAX TAB 250 MG PO SCH (10:26)
[2019-01-27] MEDS: COZAAR PO SCH (10:26)
[2019-01-27] MEDS: GLUCOTROL PO SCH (10:26)
[2019-01-27] MEDS: NORVASC TAB 5 MG PO SCH (10:26)
[2019-01-27] MEDS: PROTONIX TAB 40 MG PO SCH ×2 (10:26→21:43)
[2019-01-27] MEDS: DEMEROL INJ IVP PRN ×3 (11:21→23:56)
[2019-01-27] MEDS: NYSTATIN SUSP PO SCH ×4 (11:33→21:43)
[2019-01-27] MEDS: HumuLIN R SUBCUT PRN ×3 (13:55→21:48)
--- NOTE | 2019-01-27 18:04 | DR.PROGNOT ---
Hospital Progress Notes - Progress Note for Day of: Progress Note Date: 01/27/19 - Chief Complaint Chief Complaint: still having epigastric and upper abdomial pain and burning after meals. no vomiting today . - Past Medical Family Social History Past Med/Fam/Surg Hx: No changes since H&P Allergies: Allergies codeine Allergy (Verified 01/24/19 20:08) morphine Allergy (Verified 01/24/19 20:08) - Review Of Systems ROS: No change since H&P - Vital Signs Vital Signs: Temperature 97.8 F Pulse Rate [Right Brachial] 105 Pulse Rate [Apical] 102 Pulse Rate 140 Respiratory Rate 18 Blood Pressure [Right Arm] 154/97 Blood Pressure [Left Arm] 103/58 Blood Pressure [Left Radial 160/102 Artery] Blood Pressure 182/99 O2 Sat by Pulse Oximetry 100 - Physical Exam Oriented: Normal Eyes: Normal Ear: Normal Nose: Normal Throat: Normal Respiratory: Normal Cardiovascular: Tachycardia : Normal GI:Auscultation: Increased GI:Palpation: Normal GI: Tenderness: Epigastric (soft abdomen , BS+), Moderate. negative: Rebound, Guarding, Rigidity Skin: Normal Musculoskeletal: Normal Psychiatric: Normal Mood Description: Calm Affect: Normal Speech Pattern: Clear, Appropriate - Laboratory and Diagnostics Result Diagrams: 01/27/19 04:00 01/27/19 04:00 Labs: Laboratory WBC 15.1 X10^3/uL (3.6-10.0) H 01/27/19 04:00 RBC 3.38 X10^6/uL (4.7-6.0) L 01/27/19 04:00 Hgb 8.2 g/dL (13.5-18.0) L 01/27/19 04:00 Hct 25.3 % (42.0-54.0) L 01/27/19 04:00 MCV 75.0 fL (80.0-100.0) L 01/27/19 04:00 MCH 24.3 pg (27.0-34.0) L 01/27/19 04:00 MCHC 32.5 g/dL (33.0-35.0) L 01/27/19 04:00 RDW 17.3 % (11.6-16.5) H 01/27/19 04:00 Plt Count 315 X10^3/uL (150.0-450.0) 01/27/19 04:00 Plt Count Comment Adequate (ADEQUATE) 01/27/19 04:00 MPV 8.5 fL (7.4-11.0) 01/27/19 04:00 Neut % (Auto) 82.9 % (42.0-75.0) H 01/27/19 04:00 Lymph % (Auto) 10.3 % (21.0-51.0) L 01/27/19 04:00 [place] % (Auto) 6.5 % (0.0-13.0) 01/27/19 04:00 Eos % (Auto) 0.0 % (0.9-2.9) L 01/27/19 04:00 Baso % (Auto) 0.3 % (0.2-1.0) 01/27/19 04:00 Neut # (Auto) 12.5 x10^3/uL (2.2-4.8) H 01/27/19 04:00 Lymph # (Auto) 1.6 X10^3/uL (1.3-2.9) 01/27/19 04:00 [place] # (Auto) 1.0 x10^3/uL (0.3-0.8) H 01/27/19 04:00 Eos # (Auto) 0.0 x10^3/uL (0.0-0.2) 01/27/19 04:00 Baso # (Auto) 0.0 X10^3/uL (0.0-0.1) 01/27/19 04:00 Absolute Nucleated RBC 0.0 /100WBC 01/27/19 04:00 Total Counted 100 01/25/19 04:00 Neutrophils % (Manual) 95 % (39-76) H 01/25/19 04:00 Lymphocytes % (Manual) 4 % (13-43) L 01/25/19 04:00 Monocytes % (Manual) 1 % (4-9) L 01/25/19 04:00 Plt Morphology Comment Normal (NORMAL) 01/27/19 04:00 RBC Morphology Abnormal (NORMAL) 01/27/19 04:00 Hypochromasia 1+ A 01/27/19 04:00 Anisocytosis Slight A 01/27/19 04:00 Microcytosis Slight A 01/24/19 20:00 Sample Site Lb 01/26/19 04:42 ABG pH 7.440 (7.35-7.45) 01/26/19 04:42 ABG pCO2 46.0 mmHg (35.0-45.0) H 01/26/19 04:42 ABG pO2 79.0 mmHg (80.0-100.0) L 01/26/19 04:42 ABG HCO3 31.2 mmol/L (22-26) H* 01/26/19 04:42 ABG O2 Saturation 96.0 % (90-100) 01/26/19 04:42 ABG Base Excess 6.1 mmol/L (-2.0-2.0) H 01/26/19 04:42 Wang Test N/a 01/26/19 04:42 A-a Gradient 13.0 mmHg 01/26/19 04:42 FiO2 21.0 01/26/19 04:42 Blood Gas Comments Les well ae 01/26/19 04:42 Sodium 140 mmol/L (136-145) 01/27/19 04:00 Corrected Sodium TNP 01/27/19 04:00 Potassium 4.2 mmol/L (3.5-5.1) 01/27/19 04:00 Chloride 106 mmol/L (98-107) 01/27/19 04:00 Carbon Dioxide 28.4 mmol/L (21-32) 01/27/19 04:00 BUN 19 mg/dL (7-18) H 01/27/19 04:00 Creatinine 0.86 mg/dL (0.70-1.30) 01/27/19 04:00 Est GFR (MDRD) Af Amer > 60 (>60) 01/27/19 04:00 Est GFR (MDRD) Non-Af > 60 (>60) 01/27/19 04:00 Glucose 56 mg/dL (65-99) L 01/27/19 04:00 Calcium 7.5 mg/dL (8.5-10.1) L 01/27/19 04:00 Corrected Calcium 8.5 mg/dL (8.5-10.1) 01/27/19 04:00 Total Bilirubin 0.30 mg/dL (0.2-1.0) 01/27/19 04:00 AST 8 Units/L (15-37) L 01/27/19 04:00 ALT 9 Units/L (12-78) L 01/27/19 04:00 Alkaline Phosphatase 79 Units/L (46-116) 01/27/19 04:00 Total Protein 6.3 g/dL (6.4-8.2) L 01/27/19 04:00 Albumin 2.7 g/dL (3.4-5.0) L 01/27/19 04:00 Globulin 3.6 g/dL (2.5-4.5) 01/27/19 04:00 Albumin/Globulin Ratio 0.8 Ratio (1.1-2.1) L 01/27/19 04:00 Amylase 93 Units/L (25-115) 01/25/19 04:00 Lipase 225 Units/L (73-393) 01/25/19 04:00 Specimen Type Clean catch urine 01/25/19 00:13 Urine Color Straw (YELLOW) 01/25/19 00:13 Urine Appearance Clear (CLEAR) 01/25/19 00:13 Urine pH 8.0 (5.0 - 8.0) 01/25/19 00:13 Ur Specific [place] 1.015 (1.000-1.030) 01/25/19 00:13 Urine Protein 2+ (NEGATIVE) 01/25/19 00:13 Urine Glucose (UA) 4+ (NEGATIVE) 01/25/19 00:13 Urine Ketones 4+ (NEGATIVE) 01/25/19 00:13 Urine Occult Blood 1+ (NEGATIVE) 01/25/19 00:13 Urine Nitrite Negative (NEGATIVE) 01/25/19 00:13 Urine Bilirubin Negative (NEGATIVE) 01/25/19 00:13 Urine Urobilinogen Normal (NORMAL) 01/25/19 00:13 Ur Leukocyte Esterase Negative (NEGATIVE) 01/25/19 00:13 Urine RBC 0-2 /HPF (NONE SEEN) 01/25/19 00:13 Urine WBC None seen /HPF (NONE SEEN) 01/25/19 00:13 Ur Squamous Epith Cells Rare /HPF (NEGATIVE) 01/25/19 00:13 Urine Bacteria Negative /HPF (NEGATIVE) 01/25/19 00:13 Ur Culture Indicated? No/not indicated 01/25/19 00:13 Acetone, Semi-Quant Negative (NEGATIVE) 01/27/19 04:00 - Assessment and Plan 1: severe esophagitis with candidiasis . gastro duodenitis . esophageal dysmotolity disorder and diabetic gastroperesis . same medications and diet ( small meals , soft mechanical ). - Problem Patient Problems: Patient Problems Hypertension, uncontrolled (Acute) I10 Intractable vomiting with nausea (Acute) R11.2 Diabetic gastroparesis (Acute) E11.43, K31.84 Diabetes mellitus type 1 (Chronic) E10.9
--- NOTE | 2019-01-27 20:13 | PCM.PROG ---
Progress Note - Progress Note for Day of Date of Exam: 01/26/19 - Subjective Subjective: WAS ADMITTED FOR INTRACTABLE NAUSEA OR VOMITING, DIABETIC GASTROPARESIS, AND ABDOMINAL PAIN. HE CONTINUES WITH NAUSEA AND VOMITING TODAY, WELL ABDOMINAL PAIN. ON EXAMINATION, HE IS NOTED TO BE TACHYCARDIC. BILATERAL LUNGS ARE CLEAR TO AUSCULTATION. ABDOMEN IS ROUND, SOFT, AND NOTED WITH MILD, DIFFUSE TENDERNESS. HYPERACTIVE BOWEL SOUNDS NOTED. HIS VITALS THIS MORNING ARE 97.7-95-18-95%-112/75. LABS WERE OBTAINED. ABNORMAL LAB VALUES INCLUDE THE FOLLOWING: WBC INCREASED TO 19.1, RBC 3.79, HGB 9.1, HCT 28.1, BUN 27, GLUCOSE 224, CALCIUM 8.0, AST 12, ALT 10, ALBUMIN 3.1. HE IS CURRENTLY RECEIVING NORMAL SALINE AT 125ML/HR, ZOFRAN COCKTAIL, HUMULIN R SLIDING SCALE, DEMEROL 50MG IV Q6H PRN, AND HOME MEDICATIONS WERE RESUMED. WE CONSULTED FOR EGD AND POSSIBLE PEG TUBE. HE PLANS FOR AN EGD TODAY. WE RESUMED HIS HOME MEDICATIONS, WHICH INCLUDE AZITHROMYCIN 250MG PO DAILY. OTHERWISE, WE WILL FOLLOW UP WITH AM LABS AND CONTINUE TO MONITOR. - Past Medical Family Social History Past Med/Fam/Surg Hx: No changes since H&P Allergies: Allergies codeine Allergy (Verified 01/24/19 20:08) morphine Allergy (Verified 01/24/19 20:08) - Review of Systems ROS: No change since H&P - Vital Signs and I&O's Vital Signs: Temperature 97.8 F Pulse Rate [Right Brachial] 105 Pulse Rate [Apical] 102 Pulse Rate 140 Respiratory Rate 20 Blood Pressure [Right Arm] 154/97 Blood Pressure [Left Arm] 103/58 Blood Pressure [Left Radial 160/102 Artery] Blood Pressure 182/99 O2 Sat by Pulse Oximetry 100 Intake and Output: Intake & Output 01/25/19 01/26/19 01/27/19 01/28/19 11:59 11:59 11:59 11:59 Intake Total 3600 / 3600 460 / 460 1760 / 1760 240 / 240 Output Total 325 / 325 Balance 3275 / 3275 460 / 460 1760 / 1760 240 / 240 - Physical Exam Oriented: Normal Eyes: Normal Ear: Normal Nose: Normal Throat: Normal Respiratory: Normal Cardiovascular: Tachycardia : Normal Auscultation: Bowel Sounds: Increased Palpation: Normal Tenderness: Epigastric (soft abdomen , BS+), Moderate. negative: Rebound, Guarding, Rigidity Skin: Normal Musculoskeletal: Normal Psychiatric: Normal Mood Description: Calm Affect: Normal Speech Pattern: Clear, Appropriate - Laboratory and Diagnostics Result Diagrams: 01/27/19 04:00 01/27/19 04:00 Labs: Laboratory WBC 15.1 X10^3/uL (3.6-10.0) H 01/27/19 04:00 RBC 3.38 X10^6/uL (4.7-6.0) L 01/27/19 04:00 Hgb 8.2 g/dL (13.5-18.0) L 01/27/19 04:00 Hct 25.3 % (42.0-54.0) L 01/27/19 04:00 MCV 75.0 fL (80.0-100.0) L 01/27/19 04:00 MCH 24.3 pg (27.0-34.0) L 01/27/19 04:00 MCHC 32.5 g/dL (33.0-35.0) L 01/27/19 04:00 RDW 17.3 % (11.6-16.5) H 01/27/19 04:00 Plt Count 315 X10^3/uL (150.0-450.0) 01/27/19 04:00 Plt Count Comment Adequate (ADEQUATE) 01/27/19 04:00 MPV 8.5 fL (7.4-11.0) 01/27/19 04:00 Neut % (Auto) 82.9 % (42.0-75.0) H 01/27/19 04:00 Lymph % (Auto) 10.3 % (21.0-51.0) L 01/27/19 04:00 [place] % (Auto) 6.5 % (0.0-13.0) 01/27/19 04:00 Eos % (Auto) 0.0 % (0.9-2.9) L 01/27/19 04:00 Baso % (Auto) 0.3 % (0.2-1.0) 01/27/19 04:00 Neut # (Auto) 12.5 x10^3/uL (2.2-4.8) H 01/27/19 04:00 Lymph # (Auto) 1.6 X10^3/uL (1.3-2.9) 01/27/19 04:00 [place] # (Auto) 1.0 x10^3/uL (0.3-0.8) H 01/27/19 04:00 Eos # (Auto) 0.0 x10^3/uL (0.0-0.2) 01/27/19 04:00 Baso # (Auto) 0.0 X10^3/uL (0.0-0.1) 01/27/19 04:00 Absolute Nucleated RBC 0.0 /100WBC 01/27/19 04:00 Total Counted 100 01/25/19 04:00 Neutrophils % (Manual) 95 % (39-76) H 01/25/19 04:00 Lymphocytes % (Manual) 4 % (13-43) L 01/25/19 04:00 Monocytes % (Manual) 1 % (4-9) L 01/25/19 04:00 Plt Morphology Comment Normal (NORMAL) 01/27/19 04:00 RBC Morphology Abnormal (NORMAL) 01/27/19 04:00 Hypochromasia 1+ A 01/27/19 04:00 Anisocytosis Slight A 01/27/19 04:00 Microcytosis Slight A 01/24/19 20:00 Sample Site Lb 01/26/19 04:42 ABG pH 7.440 (7.35-7.45) 01/26/19 04:42 ABG pCO2 46.0 mmHg (35.0-45.0) H 01/26/19 04:42 ABG pO2 79.0 mmHg (80.0-100.0) L 01/26/19 04:42 ABG HCO3 31.2 mmol/L (22-26) H* 01/26/19 04:42 ABG O2 Saturation 96.0 % (90-100) 01/26/19 04:42 ABG Base Excess 6.1 mmol/L (-2.0-2.0) H 01/26/19 04:42 Wang Test N/a 01/26/19 04:42 A-a Gradient 13.0 mmHg 01/26/19 04:42 FiO2 21.0 01/26/19 04:42 Blood Gas Comments Les well ae 01/26/19 04:42 Sodium 140 mmol/L (136-145) 01/27/19 04:00 Corrected Sodium TNP 01/27/19 04:00 Potassium 4.2 mmol/L (3.5-5.1) 01/27/19 04:00 Chloride 106 mmol/L (98-107) 01/27/19 04:00 Carbon Dioxide 28.4 mmol/L (21-32) 01/27/19 04:00 BUN 19 mg/dL (7-18) H 01/27/19 04:00 Creatinine 0.86 mg/dL (0.70-1.30) 01/27/19 04:00 Est GFR (MDRD) Af Amer > 60 (>60) 01/27/19 04:00 Est GFR (MDRD) Non-Af > 60 (>60) 01/27/19 04:00 Glucose 56 mg/dL (65-99) L 01/27/19 04:00 Calcium 7.5 mg/dL (8.5-10.1) L 01/27/19 04:00 Corrected Calcium 8.5 mg/dL (8.5-10.1) 01/27/19 04:00 Total Bilirubin 0.30 mg/dL (0.2-1.0) 01/27/19 04:00 AST 8 Units/L (15-37) L 01/27/19 04:00 ALT 9 Units/L (12-78) L 01/27/19 04:00 Alkaline Phosphatase 79 Units/L (46-116) 01/27/19 04:00 Total Protein 6.3 g/dL (6.4-8.2) L 01/27/19 04:00 Albumin 2.7 g/dL (3.4-5.0) L 01/27/19 04:00 Globulin 3.6 g/dL (2.5-4.5) 01/27/19 04:00 Albumin/Globulin Ratio 0.8 Ratio (1.1-2.1) L 01/27/19 04:00 Amylase 93 Units/L (25-115) 01/25/19 04:00 Lipase 225 Units/L (73-393) 01/25/19 04:00 Specimen Type Clean catch urine 01/25/19 00:13 Urine Color Straw (YELLOW) 01/25/19 00:13 Urine Appearance Clear (CLEAR) 01/25/19 00:13 Urine pH 8.0 (5.0 - 8.0) 01/25/19 00:13 Ur Specific [place] 1.015 (1.000-1.030) 01/25/19 00:13 Urine Protein 2+ (NEGATIVE) 01/25/19 00:13 Urine Glucose (UA) 4+ (NEGATIVE) 01/25/19 00:13 Urine Ketones 4+ (NEGATIVE) 01/25/19 00:13 Urine Occult Blood 1+ (NEGATIVE) 01/25/19 00:13 Urine Nitrite Negative (NEGATIVE) 01/25/19 00:13 Urine Bilirubin Negative (NEGATIVE) 01/25/19 00:13 Urine Urobilinogen Normal (NORMAL) 01/25/19 00:13 Ur Leukocyte Esterase Negative (NEGATIVE) 01/25/19 00:13 Urine RBC 0-2 /HPF (NONE SEEN) 01/25/19 00:13 Urine WBC None seen /HPF (NONE SEEN) 01/25/19 00:13 Ur Squamous Epith Cells Rare /HPF (NEGATIVE) 01/25/19 00:13 Urine Bacteria Negative /HPF (NEGATIVE) 01/25/19 00:13 Ur Culture Indicated? No/not indicated 01/25/19 00:13 Acetone, Semi-Quant Negative (NEGATIVE) 01/27/19 04:00 - Plan (1) Diabetic gastroparesis Status: Acute Plan: IV FLUIDS, HUMULIN R SLIDING SCALE, ZOFRAN COCTAIL, PAIN CONTROL, CONTINUE TO MONITOR (2) Hypertension, uncontrolled Status: Acute Plan: CONTINUE HOME MEDS, APRESOLINE, CONTINUE TO MONITOR (3) Intractable vomiting with nausea Status: Acute Qualifiers: Vomiting type: unspecified Plan: ZOFRAN COCKTAIL, CONTINUE TO MONITOR
[2019-01-27] MEDS: SNACK - Diabetic Appropriate PO SCH (21:38)
[2019-01-27] MEDS: REMERON PO SCH (21:43)
[2019-01-27] MEDS: RESTORIL CAP 30 MG PO SCH (21:43)
[2019-01-28 05:17] LABS: BASOPHILS % (AUTO) 0.2 % (0.2-1.0); EOSINOPHILS % (AUTO) 0.5 % (0.9-2.9); HEMATOCRIT 28.1 % (42.0-54.0); HEMOGLOBIN 9.2 g/dL (13.5-18.0); LYMPHOCYTES # (AUTO) 2.5 X10^3/uL (1.3-2.9); LYMPHOCYTES % (AUTO) 25.1 % (21.0-51.0); MEAN CORPUSCULAR HEMOGLOBIN 24.8 pg (27.0-34.0); MEAN CORPUSCULAR HGB CONC 32.7 g/dL (33.0-35.0); MEAN CORPUSCULAR VOLUME 75.6 fL (80.0-100.0); MEAN PLATELET VOLUME 8.5 fL (7.4-11.0); MONOCYTES # (AUTO) 0.8 x10^3/uL (0.3-0.8); NEUTROPHILS # (AUTO) 6.5 x10^3/uL (2.2-4.8); NEUTROPHILS % (AUTO) 66.2 % (42.0-75.0); PLATELET COUNT 330 X10^3/uL (150.0-450.0); RED BLOOD COUNT 3.72 X10^6/uL (4.7-6.0); RED CELL DISTRIBUTION WIDTH 17.5 % (11.6-16.5); WHITE BLOOD COUNT 9.9 X10^3/uL (3.6-10.0)
[2019-01-28 05:25] LABS: ALANINE AMINOTRANSFERASE 10 Units/L (12-78); ALKALINE PHOSPHATASE 92 Units/L (46-116); ASPARTATE AMINO TRANSFERASE 8 Units/L (15-37); BLOOD UREA NITROGEN 11 mg/dL (7-18); CALCIUM 7.7 mg/dL (8.5-10.1); CARBON DIOXIDE 26.3 mmol/L (21-32); CHLORIDE 105 mmol/L (98-107); COR CA(FOR HYPOALB) 8.5 mg/dL (8.5-10.1); CREATININE 0.83 mg/dL (0.70-1.30); SODIUM 140 mmol/L (136-145); TOTAL PROTEIN 6.9 g/dL (6.4-8.2); eGFR NON BLACK RACES > 60 (>60)
[2019-01-28] MEDS: NEURONTIN CAP 300 MG PO SCH ×3 (05:56→22:26)
[2019-01-28] MEDS: NS 1000 ML 1,000 ML IV SCH ×3 (05:56→20:44)
[2019-01-28] MEDS: HumuLIN R SUBCUT PRN ×3 (05:57→20:46)
[2019-01-28 06:08] LABS: PLATELET MORPHOLOGY COMMENT NORMAL (NORMAL)
[2019-01-28 06:09] LABS: ANISOCYTOSIS SLIGHT; HYPOCHROMASIA SLIGHT
[2019-01-28 06:17] LABS: SERUM ACETONE NEGATIVE (NEGATIVE)
[2019-01-28] MEDS: COZAAR PO SCH (08:31)
[2019-01-28] MEDS: GLUCOTROL PO SCH (08:31)
[2019-01-28] MEDS: DIFLUCAN 200 MG IV PREMIX* 200 MG/100 ML BAG IV SCH (08:31)
[2019-01-28] MEDS: K-DUR TAB 20 MEQ PO SCH (08:31)
[2019-01-28] MEDS: ZITHROMAX TAB 250 MG PO SCH (08:32)
[2019-01-28] MEDS: PROTONIX TAB 40 MG PO SCH ×2 (08:32→20:45)
[2019-01-28] MEDS: NYSTATIN SUSP PO SCH ×4 (08:32→20:44)
[2019-01-28] MEDS: NORVASC TAB 5 MG PO SCH (08:32)
[2019-01-28] MEDS: DEMEROL INJ IVP PRN ×2 (08:44→14:21)
--- NOTE | 2019-01-28 19:24 | PCM.PROG ---
Progress Note - Progress Note for Day of Date of Exam: 01/27/19 - Subjective Subjective: WAS ADMITTED FOR INTRACTABLE NAUSEA OR VOMITING, DIABETIC GASTROPARESIS, AND ABDOMINAL PAIN. HE CONTINUES WITH NAUSEA, VOMITING, AND ABDOMINAL PAIN TODAY. ON EXAMINATION, HEART IS REGULAR IN RATE AND RHYTHM. BILATERAL LUNGS ARE CLEAR TO AUSCULTATION. ABDOMEN IS ROUND, SOFT, AND NOTED WITH MILD, DIFFUSE TENDERNESS. HYPERACTIVE BOWEL SOUNDS NOTED. HIS VITALS THIS MORNING ARE 97.6-94-18-98%-138/74. LABS WERE OBTAINED. ABNORMAL LAB VALUES INCLUDE THE FOLLOWING: WBC 15.1, RBC 3.38, HGB 8.2, HCT 25.3, BUN 19, GLUCOSE 56, CALCIUM 7.5, AST 8, ALT 9, TOTAL PROTEIN 6.3, ALBUMIN 2.7. PERFORMED AN EGD YESTERDAY. IT REVEALED: SEVERE ESOPHAGITIS INVOLVING MOST OF THE LOWER HALF OF THE ESOPHAGUS WITH CANDIDIASIS, FREE GASTROESOPHAGEAL REFLUX, GASTRITIS WITH GASTROPARESIS, PYLORIS SPASM, AND DUODENITIS. HE IS CURRENTLY RECEIVING NORMAL SALINE AT 125ML/HR, ZOFRAN COCKTAIL, HUMULIN R SLIDING SCALE, DEMEROL 50MG IV Q6H PRN, AND HOME MEDICATIONS WERE RESUMED. WE WILL CONTINUE WITH CURRENT PLAN OF CARE TODAY AND ADD NYSTATIN SWISH AND SWALLOW. OTHERWISE, WE WILL FOLLOW UP WITH AM LABS AND CONTINUE TO MONITOR. - Past Medical Family Social History Past Med/Fam/Surg Hx: No changes since H&P Allergies: Allergies codeine Allergy (Verified 01/24/19 20:08) morphine Allergy (Verified 01/24/19 20:08) - Review of Systems ROS: No change since H&P - Vital Signs and I&O's Vital Signs: Temperature 97.9 F Pulse Rate [Right Brachial] 106 Pulse Rate [Apical] 102 Pulse Rate 140 Respiratory Rate 18 Blood Pressure [Right Arm] 156/73 Blood Pressure [Left Arm] 103/58 Blood Pressure [Left Radial 160/102 Artery] Blood Pressure 182/99 O2 Sat by Pulse Oximetry 100 Intake and Output: Intake & Output 01/26/19 01/27/19 01/28/19 01/29/19 11:59 11:59 11:59 11:59 Intake Total 460 / 460 1760 / 1760 1870 / 1870 480 / 480 Balance 460 / 460 1760 / 1760 1870 / 1870 480 / 480 - Physical Exam Oriented: Normal Eyes: Normal Ear: Normal Nose: Normal Throat: Normal Respiratory: Normal Cardiovascular: Normal : Normal Auscultation: Bowel Sounds: Increased Palpation: Normal Tenderness: Epigastric (soft abdomen , BS+), Moderate. negative: Rebound, Guarding, Rigidity Skin: Normal Musculoskeletal: Normal Psychiatric: Normal Mood Description: Calm Affect: Normal Speech Pattern: Clear, Appropriate - Laboratory and Diagnostics Result Diagrams: 01/28/19 04:15 01/28/19 04:15 Labs: Laboratory WBC 9.9 X10^3/uL (3.6-10.0) 01/28/19 04:15 RBC 3.72 X10^6/uL (4.7-6.0) L 01/28/19 04:15 Hgb 9.2 g/dL (13.5-18.0) L 01/28/19 04:15 Hct 28.1 % (42.0-54.0) L 01/28/19 04:15 MCV 75.6 fL (80.0-100.0) L 01/28/19 04:15 MCH 24.8 pg (27.0-34.0) L 01/28/19 04:15 MCHC 32.7 g/dL (33.0-35.0) L 01/28/19 04:15 RDW 17.5 % (11.6-16.5) H 01/28/19 04:15 Plt Count 330 X10^3/uL (150.0-450.0) 01/28/19 04:15 Plt Count Comment Adequate (ADEQUATE) 01/28/19 04:15 MPV 8.5 fL (7.4-11.0) 01/28/19 04:15 Neut % (Auto) 66.2 % (42.0-75.0) 01/28/19 04:15 Lymph % (Auto) 25.1 % (21.0-51.0) 01/28/19 04:15 [place] % (Auto) 8.0 % (0.0-13.0) 01/28/19 04:15 Eos % (Auto) 0.5 % (0.9-2.9) L 01/28/19 04:15 Baso % (Auto) 0.2 % (0.2-1.0) 01/28/19 04:15 Neut # (Auto) 6.5 x10^3/uL (2.2-4.8) H 01/28/19 04:15 Lymph # (Auto) 2.5 X10^3/uL (1.3-2.9) 01/28/19 04:15 [place] # (Auto) 0.8 x10^3/uL (0.3-0.8) 01/28/19 04:15 Eos # (Auto) 0.0 x10^3/uL (0.0-0.2) 01/28/19 04:15 Baso # (Auto) 0.0 X10^3/uL (0.0-0.1) 01/28/19 04:15 Absolute Nucleated RBC 0.0 /100WBC 01/28/19 04:15 Total Counted 100 01/25/19 04:00 Neutrophils % (Manual) 95 % (39-76) H 01/25/19 04:00 Lymphocytes % (Manual) 4 % (13-43) L 01/25/19 04:00 Monocytes % (Manual) 1 % (4-9) L 01/25/19 04:00 Plt Morphology Comment Normal (NORMAL) 01/28/19 04:15 RBC Morphology Abnormal (NORMAL) 01/28/19 04:15 Hypochromasia Slight A 01/28/19 04:15 Anisocytosis Slight A 01/28/19 04:15 Microcytosis Slight A 01/24/19 20:00 Sample Site Lb 01/26/19 04:42 ABG pH 7.440 (7.35-7.45) 01/26/19 04:42 ABG pCO2 46.0 mmHg (35.0-45.0) H 01/26/19 04:42 ABG pO2 79.0 mmHg (80.0-100.0) L 01/26/19 04:42 ABG HCO3 31.2 mmol/L (22-26) H* 01/26/19 04:42 ABG O2 Saturation 96.0 % (90-100) 01/26/19 04:42 ABG Base Excess 6.1 mmol/L (-2.0-2.0) H 01/26/19 04:42 Wang Test N/a 01/26/19 04:42 A-a Gradient 13.0 mmHg 01/26/19 04:42 FiO2 21.0 01/26/19 04:42 Blood Gas Comments Les well ae 01/26/19 04:42 Sodium 140 mmol/L (136-145) 01/28/19 04:15 Corrected Sodium TNP 01/28/19 04:15 Potassium 3.7 mmol/L (3.5-5.1) 01/28/19 04:15 Chloride 105 mmol/L (98-107) 01/28/19 04:15 Carbon Dioxide 26.3 mmol/L (21-32) 01/28/19 04:15 BUN 11 mg/dL (7-18) 01/28/19 04:15 Creatinine 0.83 mg/dL (0.70-1.30) 01/28/19 04:15 Est GFR (MDRD) Af Amer > 60 (>60) 01/28/19 04:15 Est GFR (MDRD) Non-Af > 60 (>60) 01/28/19 04:15 Glucose 96 mg/dL (65-99) 01/28/19 04:15 POC Glucose (mg/dL) 299 mg/dL (65-99) H 01/28/19 17:29 Calcium 7.7 mg/dL (8.5-10.1) L 01/28/19 04:15 Corrected Calcium 8.5 mg/dL (8.5-10.1) 01/28/19 04:15 Total Bilirubin 0.10 mg/dL (0.2-1.0) L 01/28/19 04:15 AST 8 Units/L (15-37) L 01/28/19 04:15 ALT 10 Units/L (12-78) L 01/28/19 04:15 Alkaline Phosphatase 92 Units/L (46-116) 01/28/19 04:15 Total Protein 6.9 g/dL (6.4-8.2) 01/28/19 04:15 Albumin 3.0 g/dL (3.4-5.0) L 01/28/19 04:15 Globulin 3.9 g/dL (2.5-4.5) 01/28/19 04:15 Albumin/Globulin Ratio 0.8 Ratio (1.1-2.1) L 01/28/19 04:15 Amylase 93 Units/L (25-115) 01/25/19 04:00 Lipase 225 Units/L (73-393) 01/25/19 04:00 Specimen Type Clean catch urine 01/25/19 00:13 Urine Color Straw (YELLOW) 01/25/19 00:13 Urine Appearance Clear (CLEAR) 01/25/19 00:13 Urine pH 8.0 (5.0 - 8.0) 01/25/19 00:13 Ur Specific [place] 1.015 (1.000-1.030) 01/25/19 00:13 Urine Protein 2+ (NEGATIVE) 01/25/19 00:13 Urine Glucose (UA) 4+ (NEGATIVE) 01/25/19 00:13 Urine Ketones 4+ (NEGATIVE) 01/25/19 00:13 Urine Occult Blood 1+ (NEGATIVE) 01/25/19 00:13 Urine Nitrite Negative (NEGATIVE) 01/25/19 00:13 Urine Bilirubin Negative (NEGATIVE) 01/25/19 00:13 Urine Urobilinogen Normal (NORMAL) 01/25/19 00:13 Ur Leukocyte Esterase Negative (NEGATIVE) 01/25/19 00:13 Urine RBC 0-2 /HPF (NONE SEEN) 01/25/19 00:13 Urine WBC None seen /HPF (NONE SEEN) 01/25/19 00:13 Ur Squamous Epith Cells Rare /HPF (NEGATIVE) 01/25/19 00:13 Urine Bacteria Negative /HPF (NEGATIVE) 01/25/19 00:13 Ur Culture Indicated? No/not indicated 01/25/19 00:13 Acetone, Semi-Quant Negative (NEGATIVE) 01/28/19 04:15 - Plan (1) Diabetic gastroparesis Status: Acute Plan: IV FLUIDS, HUMULIN R SLIDING SCALE, ZOFRAN COCTAIL, PAIN CONTROL, CONTINUE TO MONITOR (2) Hypertension, uncontrolled Status: Acute Plan: CONTINUE HOME MEDS, APRESOLINE, CONTINUE TO MONITOR (3) Intractable vomiting with nausea Status: Acute Qualifiers: Vomiting type: unspecified Plan: ZOFRAN COCKTAIL, CONTINUE TO MONITOR (4) Candidiasis of esophagus Status: Acute Plan: DIFLUCAN, NYSTATIN SWISH AND SWALLOW (5) CAD (coronary artery disease) Status: Chronic Qualifiers: Coronary Disease-Associated Artery/Lesion type: [place] artery [place] vs. transplanted heart: [place] heart Associated angina: angina presence unspecified Qualified Code(s): I25.10 - Atherosclerotic heart disease of [place] coronary artery without angina pectoris (6) Diabetic neuropathy Status: Chronic Qualifiers: Diabetes mellitus type: type 1 Diabetes mellitus complication detail: with other neurological complication Qualified Code(s): E10.49 - Type 1 diabetes mellitus with other diabetic neurological complication (7) GERD (gastroesophageal reflux disease) Status: Chronic Qualifiers: Esophagitis presence: without esophagitis Qualified Code(s): K21.9 - Gastro-esophageal reflux disease without esophagitis (8) Hyperlipidemia Status: Chronic Qualifiers: Hyperlipidemia type: mixed hyperlipidemia
[2019-01-28] MEDS: SNACK - Diabetic Appropriate PO SCH (20:44)
[2019-01-28] MEDS: RESTORIL CAP 30 MG PO SCH (20:45)
[2019-01-28] MEDS: MAALOX or MYLANTA PO PRN (20:45)
[2019-01-28] MEDS: REMERON PO SCH (20:45)
[2019-01-29] MEDS: NS 1000 ML 1,000 ML IV SCH ×3 (01:57→09:54)
[2019-01-29] MEDS: MAALOX or MYLANTA PO PRN (04:00)
[2019-01-29 04:11] LABS: BASOPHILS # (AUTO) 0.1 X10^3/uL (0.0-0.1); BASOPHILS % (AUTO) 1.3 % (0.2-1.0); EOSINOPHILS # (AUTO) 0.1 x10^3/uL (0.0-0.2); EOSINOPHILS % (AUTO) 0.5 % (0.9-2.9); HEMATOCRIT 27.5 % (42.0-54.0); HEMOGLOBIN 9.1 g/dL (13.5-18.0); LYMPHOCYTES # (AUTO) 2.9 X10^3/uL (1.3-2.9); LYMPHOCYTES % (AUTO) 29.8 % (21.0-51.0); MEAN CORPUSCULAR HEMOGLOBIN 24.8 pg (27.0-34.0); MEAN CORPUSCULAR HGB CONC 32.9 g/dL (33.0-35.0); MEAN CORPUSCULAR VOLUME 75.1 fL (80.0-100.0); MEAN PLATELET VOLUME 7.7 fL (7.4-11.0); MONOCYTES # (AUTO) 0.7 x10^3/uL (0.3-0.8); MONOCYTES % (AUTO) 7.5 % (0.0-13.0); NEUTROPHILS # (AUTO) 5.9 x10^3/uL (2.2-4.8); NEUTROPHILS % (AUTO) 60.9 % (42.0-75.0); PLATELET COUNT 378 X10^3/uL (150.0-450.0); RED BLOOD COUNT 3.66 X10^6/uL (4.7-6.0); RED CELL DISTRIBUTION WIDTH 17.2 % (11.6-16.5); WHITE BLOOD COUNT 9.7 X10^3/uL (3.6-10.0)
[2019-01-29 04:22] LABS: ALANINE AMINOTRANSFERASE 9 Units/L (12-78); ALBUMIN 3.1 g/dL (3.4-5.0); ALKALINE PHOSPHATASE 106 Units/L (46-116); ASPARTATE AMINO TRANSFERASE 9 Units/L (15-37); BLOOD UREA NITROGEN 10 mg/dL (7-18); CALCIUM 8.1 mg/dL (8.5-10.1); CARBON DIOXIDE 26.9 mmol/L (21-32); CHLORIDE 104 mmol/L (98-107); COR CA(FOR HYPOALB) 8.8 mg/dL (8.5-10.1); CREATININE 0.97 mg/dL (0.70-1.30); SODIUM 140 mmol/L (136-145); TOTAL PROTEIN 6.9 g/dL (6.4-8.2); eGFR NON BLACK RACES > 60 (>60)
[2019-01-29 04:23] LABS: ANISOCYTOSIS SLIGHT; HYPOCHROMASIA SLIGHT; PLATELET MORPHOLOGY COMMENT NORMAL (NORMAL)
[2019-01-29 04:43] LABS: CKMB % 1.7 % (<4); CREATINE KINASE 58 Units/L (39-308); CREATINE KINASE MB < 1.0 ng/mL (0-4.0); TROPONIN I < 0.02 ng/mL (0-1.5)
[2019-01-29] MEDS: NEURONTIN CAP 300 MG PO SCH (05:46)
[2019-01-29] MEDS: GLUCOTROL PO SCH (09:24)
[2019-01-29] MEDS: K-DUR TAB 20 MEQ PO SCH (09:24)
[2019-01-29] MEDS: COZAAR PO SCH (09:24)
[2019-01-29] MEDS: ZITHROMAX TAB 250 MG PO SCH (09:24)
[2019-01-29] MEDS: NORVASC TAB 5 MG PO SCH (09:24)
[2019-01-29] MEDS: PROTONIX TAB 40 MG PO SCH (09:24)
[2019-01-29] MEDS: NYSTATIN SUSP PO SCH (09:25)
[2019-01-29] MEDS: DIFLUCAN 200 MG IV PREMIX* 200 MG/100 ML BAG IV SCH (09:25)
[2019-01-29] MEDS: DEMEROL INJ IVP PRN (09:32)
[2019-01-29] MEDS: HumuLIN R SUBCUT PRN (12:21)
[2019-01-29 12:24] VITALS: BP 139/79
== END 2019-01-29 12:20 | disposition home or self-care (01) | DRG 74 ==
LOC: ER 19:13 → MED/SURG 19:13
PROVIDERS: ADMIT Internal Medicine; ATTEND Internal Medicine
DX: I25.10 Atherosclerotic heart disease of native coronary artery without angina pectoris; R10.84 Generalized abdominal pain; K31.3 Pylorospasm, not elsewhere classified; G43.A1 Cyclical vomiting, in migraine, intractable; K22.4 Dyskinesia of esophagus; B37.81 Candidal esophagitis; K31.84 Gastroparesis; K86.1 Other chronic pancreatitis; K29.80 Duodenitis without bleeding; K21.0 Gastro-esophageal reflux disease with esophagitis; I10 Essential (primary) hypertension; E10.43 Type 1 diabetes mellitus with diabetic autonomic (poly)neuropathy; E78.2 Mixed hyperlipidemia
CPT/HCPCS: 36415; 36591; 36600; 80053; 81001; 82009; 82150; 82550; 82553; 82803; 83690; 84484; 85025; 93005; 96365; 96367; 96372; 96374; 96375; 99284; A4217; A4222; Q0144; G0378; J0360; J1100; J1450; J1815; J2060; J2175; J2405; J2550; J2704; J7030; J7050

== ENCOUNTER 2019-02-17 16:40 | Inpatient (IN) ==
[2019-02-17 17:01] VITALS: BMI 25.9
[2019-02-17] MEDS ORDERED: NS 1000 ML 1,000 ML IV ONE (17:03)
[2019-02-17] MEDS ORDERED: NS 1000 ML 1,000 ML ONE (17:04)
[2019-02-17] MEDS ORDERED: DEMEROL INJ IVP ONE (17:18)
[2019-02-17] MEDS ORDERED: PHENERGAN INJ 25 MG IM ONE ×2 (17:20→17:22)
[2019-02-17] MEDS ORDERED: DEMEROL INJ ONE (17:23)
--- NOTE | 2019-02-17 17:24 | DR.N/VMALE ---
HPI Time Seen Time Seen by Provider: 02/17/19 17:05 Primary Care Physician Primary Care Physician: ethan Complaints Chief Complaint:: pt stated he has been vomiting and having abd pain all day. pt has a vomit bag with him that is full. Source History Provided: Patient Mode of Arrival Mode of Arrival: Ambulatory Timing Onset of Chief Complaint: 02/17/19 PMH PMH Past Medical History: Yes Past Medical History: Diabetes, Hypertension and PUD Past Surgical History: Yes Surgical History: Cholecystectomy, Ortho Surgery and Other Family History History of Family Medical Conditions: Yes Family Medical History: Diabetes Mellitus Social History Does patient currently use any type of tobacco product: No Have you used tobacco products in the last 12 months: No Type of Tobacco Use: None Does any household member use tobacco: No Alcohol Use: None Do you use any recreational Drugs:: No Lives With: Family Lives Where: Home infectious screening In the last 2 months have you had wt loss of >10#?: NO Have you had fever, night sweats or hemotysis?: No Have you traveled outside the country in the last 6 months?: No Isolation: Standard PE Vital Signs Vitals: Temperature 98.6 F Pulse Rate [Left Brachial] 81 Pulse Rate 87 Respiratory Rate 16 Blood Pressure [Right Arm] 183/83 Blood Pressure [Left Arm] 103/58 Blood Pressure [Left Radial 160/102 Artery] Blood Pressure 197/110 O2 Sat by Pulse Oximetry 99 ROR Labs Reviewed Result Diagrams: 02/17/19 17:30 02/17/19 17:30 Laboratory: WBC 11.8 X10^3/uL (3.6-10.0) H 02/17/19 17:30 RBC 3.86 X10^6/uL (4.7-6.0) L 02/17/19 17:30 Hgb 8.9 g/dL (13.5-18.0) L 02/17/19 17:30 Hct 27.7 % (42.0-54.0) L 02/17/19 17:30 MCV 71.8 fL (80.0-100.0) L 02/17/19 17:30 MCH 23.1 pg (27.0-34.0) L 02/17/19 17:30 MCHC 32.2 g/dL (33.0-35.0) L 02/17/19 17:30 RDW 18.4 % (11.6-16.5) H 02/17/19 17:30 Plt Count 375 X10^3/uL (150.0-450.0) 02/17/19 17:30 Plt Count Comment Adequate (ADEQUATE) 02/17/19 17:30 MPV 7.5 fL (7.4-11.0) 02/17/19 17:30 Neut % (Auto) 90.9 % (42.0-75.0) H 02/17/19 17:30 Lymph % (Auto) 6.7 % (21.0-51.0) L 02/17/19 17:30 [place] % (Auto) 2.1 % (0.0-13.0) 02/17/19 17:30 Eos % (Auto) 0.0 % (0.9-2.9) L 02/17/19 17:30 Baso % (Auto) 0.3 % (0.2-1.0) 02/17/19 17:30 Neut # (Auto) 10.7 x10^3/uL (2.2-4.8) H 02/17/19 17:30 Lymph # (Auto) 0.8 X10^3/uL (1.3-2.9) L 02/17/19 17:30 [place] # (Auto) 0.2 x10^3/uL (0.3-0.8) L 02/17/19 17:30 Eos # (Auto) 0.0 x10^3/uL (0.0-0.2) 02/17/19 17:30 Baso # (Auto) 0.0 X10^3/uL (0.0-0.1) 02/17/19 17:30 Absolute Nucleated RBC 0.0 /100WBC 02/17/19 17:30 Total Counted 100 02/17/19 17:30 Neutrophils % (Manual) 90 % (39-76) H 02/17/19 17:30 Band Neutrophils % 1 % (0-10) 02/17/19 17:30 Lymphocytes % (Manual) 8 % (13-43) L 02/17/19 17:30 Monocytes % (Manual) 1 % (4-9) L 02/17/19 17:30 Plt Morphology Comment Normal (NORMAL) 02/17/19 17:30 RBC Morphology Abnormal (NORMAL) 02/17/19 17:30 Hypochromasia 1+ A 02/17/19 17:30 Anisocytosis Slight A 02/17/19 17:30 Microcytosis Slight A 02/17/19 17:30 Sodium 144 mmol/L (136-145) 02/17/19 17:30 Corrected Sodium 149 mmol/L (136-145) H 02/17/19 17:30 Potassium 4.0 mmol/L (3.5-5.1) 02/17/19 17:30 Chloride 104 mmol/L (98-107) 02/17/19 17:30 Carbon Dioxide 23.3 mmol/L (21-32) 02/17/19 17:30 BUN 30 mg/dL (7-18) H 02/17/19 17:30 Creatinine 1.47 mg/dL (0.70-1.30) H 02/17/19 17:30 Est GFR (MDRD) Af Amer > 60 (>60) 02/17/19 17:30 Est GFR (MDRD) Non-Af 55 (>60) L 02/17/19 17:30 Glucose 289 mg/dL (65-99) H 02/17/19 17:30 Calcium 9.3 mg/dL (8.5-10.1) 02/17/19 17:30 Corrected Calcium TNP 02/17/19 17:30 Total Bilirubin 0.30 mg/dL (0.2-1.0) 02/17/19 17:30 AST 17 Units/L (15-37) 02/17/19 17:30 ALT 17 Units/L (12-78) 02/17/19 17:30 Alkaline Phosphatase 121 Units/L (46-116) H 02/17/19 17:30 Total Protein 8.3 g/dL (6.4-8.2) H 02/17/19 17:30 Albumin 3.8 g/dL (3.4-5.0) 02/17/19 17:30 Globulin 4.5 g/dL (2.5-4.5) 02/17/19 17:30 Albumin/Globulin Ratio 0.8 Ratio (1.1-2.1) L 02/17/19 17:30 Amylase 105 Units/L (25-115) 02/17/19 17:30 Lipase 424 Units/L (73-393) H 02/17/19 17:30 Acetone, Semi-Quant Negative (NEGATIVE) 02/17/19 17:30 Opioid Opioid Risk Tool Personal Hx of Substance Abuse: Prescription Drugs Age ([place] if 16-45): Yes History of Preadolescent Sexual Abuse: No Total: 1 Total Score Risk Category: Low Risk Copyright: Steven STEPHEN predicting aberrant behaviors Instructions Forms: Excuse From Work
--- NOTE | 2019-02-17 17:46 | RAD ---
HISTORY: Abdominal pain, nausea and vomiting Study: Two-view abdomen series with frontal chest Comparison: 01/19/2019 Technique: A cell phone is seen overlying the right hip region on the KUB . Findings: Left-sided Port-A-Cath is seen inserted via an internal jugular approach. Catheter tip is in the lower SVC. Trachea is. Heart size is normal. Lungs and pleural spaces are clear. Osseous structures are intact. No evidence of free intraperitoneal air or fluid is seen. There are surgical clips from cholecystectomy. Large amount of stool extends from the cecum to the distal descending colon. Small amount of stool is seen in the rectosigmoid. No bowel obstruction is seen. There is no evidence of opaque stone. Visualized osseous structures are intact. IMPRESSION: Acute cardiopulmonary disease. Large amount of stool involving the colon extending from the cecum to the distal descending colon. No significant rectosigmoid stool is seen. There is no evidence of bowel obstruction or perforation. Reported By:
[2019-02-17 17:52] LABS: BASOPHILS % (AUTO) 0.3 % (0.2-1.0); HEMATOCRIT 27.7 % (42.0-54.0); HEMOGLOBIN 8.9 g/dL (13.5-18.0); LYMPHOCYTES # (AUTO) 0.8 X10^3/uL (1.3-2.9); LYMPHOCYTES % (AUTO) 6.7 % (21.0-51.0); MEAN CORPUSCULAR HEMOGLOBIN 23.1 pg (27.0-34.0); MEAN CORPUSCULAR HGB CONC 32.2 g/dL (33.0-35.0); MEAN CORPUSCULAR VOLUME 71.8 fL (80.0-100.0); MEAN PLATELET VOLUME 7.5 fL (7.4-11.0); MONOCYTES # (AUTO) 0.2 x10^3/uL (0.3-0.8); MONOCYTES % (AUTO) 2.1 % (0.0-13.0); NEUTROPHILS # (AUTO) 10.7 x10^3/uL (2.2-4.8); NEUTROPHILS % (AUTO) 90.9 % (42.0-75.0); PLATELET COUNT 375 X10^3/uL (150.0-450.0); RED BLOOD COUNT 3.86 X10^6/uL (4.7-6.0); RED CELL DISTRIBUTION WIDTH 18.4 % (11.6-16.5); WHITE BLOOD COUNT 11.8 X10^3/uL (3.6-10.0)
[2019-02-17 18:05] LABS: ALANINE AMINOTRANSFERASE 17 Units/L (12-78); ALBUMIN 3.8 g/dL (3.4-5.0); ALKALINE PHOSPHATASE 121 Units/L (46-116); ASPARTATE AMINO TRANSFERASE 17 Units/L (15-37); BLOOD UREA NITROGEN 30 mg/dL (7-18); CALCIUM 9.3 mg/dL (8.5-10.1); CARBON DIOXIDE 23.3 mmol/L (21-32); CHLORIDE 104 mmol/L (98-107); COR NA(FOR HYPERGLY) 149 mmol/L (136-145); CREATININE 1.47 mg/dL (0.70-1.30); SODIUM 144 mmol/L (136-145); TOTAL PROTEIN 8.3 g/dL (6.4-8.2); eGFR NON BLACK RACES 55 (>60)
[2019-02-17 18:11] LABS: ANISOCYTOSIS SLIGHT; BAND NEUTROPHILS % 1 % (0-10); HYPOCHROMASIA 1+; MICROCYTOSIS SLIGHT; PLATELET MORPHOLOGY COMMENT NORMAL (NORMAL)
[2019-02-17 18:12] LABS: AMYLASE 105 Units/L (25-115); LIPASE 424 Units/L (73-393)
[2019-02-17] MEDS ORDERED: PEPCID 20 MG IV PREMIX* 20 MG/50 ML BAG IV PRN (18:57)
[2019-02-17] MEDS ORDERED: ZOFRAN INJ 4 MG VIAL IVP PRN (18:57)
[2019-02-17] MEDS ORDERED: CATAPRES-TTS-3 TD ONE (19:45)
[2019-02-17] MEDS ORDERED: CATAPRES-TTS-3 TD SCH (20:00)
[2019-02-17] MEDS: NS 1000 ML 1,000 ML IV SCH (20:12)
[2019-02-17] MEDS: DEMEROL INJ IVP PRN (21:04)
[2019-02-17] MEDS: HumuLIN R SC PRN (21:07)
[2019-02-17] MEDS ORDERED: DECADRON INJ PRESERVATIVE-FREE IM ONE (21:12)
[2019-02-17] MEDS ORDERED: ATIVAN INJ 2 MG VIAL ONE (21:13)
[2019-02-17] MEDS ORDERED: NS 50 ML IV 50 ML IV ONE (21:14)
[2019-02-17] MEDS: ZOFRAN INJ 4 MG VIAL 16 MG, ATIVAN INJ 2 MG VIAL 1 MG, DECADRON INJ 10 MG in NS 50 ML I... IV PRN (21:45)
[2019-02-18 00:59] LABS: BILIRUBIN,URINE NEGATIVE (NEGATIVE); BLOOD/HEMOGLOBIN,URINE 3+ (NEGATIVE); GLUCOSE, URINE 4+ (NEGATIVE); KETONES,URINE 2+ (NEGATIVE); LEUKOCYTE ESTERASE ,URINE NEGATIVE (NEGATIVE); NITRITES,URINE NEGATIVE (NEGATIVE); PROTEIN,URINE 3+ (NEGATIVE); UROBILINOGEN,URINE NORMAL (NORMAL)
[2019-02-18 01:01] LABS: APPEARANCE,URINE CLEAR (CLEAR); COLOR,URINE YELLOW (YELLOW)
[2019-02-18 01:12] LABS: BACTERIA,URINE NEGATIVE /HPF (NEGATIVE); SQUAMOUS EPITHELIAL CELL,UR NEGATIVE /HPF (NEGATIVE)
[2019-02-18] MEDS: DEMEROL INJ IVP PRN ×3 (03:31→21:05)
[2019-02-18] MEDS: NS 1000 ML 1,000 ML IV SCH ×4 (05:18→20:58)
[2019-02-18 06:22] LABS: BASOPHILS # (AUTO) 0.1 X10^3/uL (0.0-0.1); BASOPHILS % (AUTO) 1.2 % (0.2-1.0); HEMATOCRIT 30.3 % (42.0-54.0); HEMOGLOBIN 9.8 g/dL (13.5-18.0); LYMPHOCYTES # (AUTO) 0.8 X10^3/uL (1.3-2.9); LYMPHOCYTES % (AUTO) 7.7 % (21.0-51.0); MEAN CORPUSCULAR HEMOGLOBIN 23.3 pg (27.0-34.0); MEAN CORPUSCULAR HGB CONC 32.4 g/dL (33.0-35.0); MEAN CORPUSCULAR VOLUME 71.9 fL (80.0-100.0); MEAN PLATELET VOLUME 7.7 fL (7.4-11.0); MONOCYTES # (AUTO) 0.1 x10^3/uL (0.3-0.8); NEUTROPHILS # (AUTO) 9.8 x10^3/uL (2.2-4.8); NEUTROPHILS % (AUTO) 90.1 % (42.0-75.0); PLATELET COUNT 347 X10^3/uL (150.0-450.0); RED BLOOD COUNT 4.21 X10^6/uL (4.7-6.0); RED CELL DISTRIBUTION WIDTH 18.4 % (11.6-16.5); WHITE BLOOD COUNT 10.9 X10^3/uL (3.6-10.0)
[2019-02-18 06:30] LABS: ALANINE AMINOTRANSFERASE 17 Units/L (12-78); ALKALINE PHOSPHATASE 133 Units/L (46-116); AMYLASE 75 Units/L (25-115); ASPARTATE AMINO TRANSFERASE 21 Units/L (15-37); BLOOD UREA NITROGEN 22 mg/dL (7-18); CALCIUM 9.5 mg/dL (8.5-10.1); CHLORIDE 101 mmol/L (98-107); COR NA(FOR HYPERGLY) 146 mmol/L (136-145); CREATININE 1.13 mg/dL (0.70-1.30); LIPASE 102 Units/L (73-393); SODIUM 140 mmol/L (136-145); eGFR NON BLACK RACES > 60 (>60)
[2019-02-18 07:16] LABS: HYPOCHROMASIA 1+; PLATELET MORPHOLOGY COMMENT NORMAL (NORMAL)
[2019-02-18] MEDS ORDERED: PHARMACY CONSULT - DOSE _____ XX SCH (10:00)
[2019-02-18] MEDS: ZOFRAN INJ 4 MG VIAL 16 MG, ATIVAN INJ 2 MG VIAL 1 MG, DECADRON INJ 10 MG in NS 50 ML I... IV PRN (10:53)
[2019-02-18] MEDS: LOVENOX INJ 40 MG SYR SC SCH (10:54)
[2019-02-18] MEDS: HumuLIN R SC PRN ×3 (11:30→21:12)
[2019-02-18] MEDS: COLACE CAP 100 MG PO SCH ×2 (13:14→21:03)
[2019-02-18] MEDS: MILK OF MAGNESIA PO SCH ×3 (13:14→21:02)
[2019-02-18] MEDS: MIRALAX POWDER (1 DOSE 17 G) PO SCH (13:14)
[2019-02-19 05:22] LABS: BASOPHILS # (AUTO) 0.1 X10^3/uL (0.0-0.1); BASOPHILS % (AUTO) 0.4 % (0.2-1.0); HEMATOCRIT 23.6 % (42.0-54.0); LYMPHOCYTES # (AUTO) 0.9 X10^3/uL (1.3-2.9); LYMPHOCYTES % (AUTO) 6.7 % (21.0-51.0); MEAN CORPUSCULAR HEMOGLOBIN 23.4 pg (27.0-34.0); MEAN CORPUSCULAR HGB CONC 32.9 g/dL (33.0-35.0); MEAN CORPUSCULAR VOLUME 71.2 fL (80.0-100.0); MEAN PLATELET VOLUME 7.5 fL (7.4-11.0); MONOCYTES # (AUTO) 0.7 x10^3/uL (0.3-0.8); MONOCYTES % (AUTO) 5.7 % (0.0-13.0); NEUTROPHILS # (AUTO) 11.1 x10^3/uL (2.2-4.8); NEUTROPHILS % (AUTO) 87.2 % (42.0-75.0); PLATELET COUNT 325 X10^3/uL (150.0-450.0); RED BLOOD COUNT 3.31 X10^6/uL (4.7-6.0); RED CELL DISTRIBUTION WIDTH 18.6 % (11.6-16.5); WHITE BLOOD COUNT 12.8 X10^3/uL (3.6-10.0)
[2019-02-19 05:30] LABS: ALANINE AMINOTRANSFERASE 15 Units/L (12-78); ALKALINE PHOSPHATASE 98 Units/L (46-116); ASPARTATE AMINO TRANSFERASE 12 Units/L (15-37); BLOOD UREA NITROGEN 34 mg/dL (7-18); CALCIUM 7.7 mg/dL (8.5-10.1); CARBON DIOXIDE 26.2 mmol/L (21-32); CHLORIDE 107 mmol/L (98-107); COR CA(FOR HYPOALB) 8.5 mg/dL (8.5-10.1); COR NA(FOR HYPERGLY) 143 mmol/L (136-145); SODIUM 143 mmol/L (136-145); eGFR NON BLACK RACES > 60 (>60)
[2019-02-19] MEDS: DEMEROL INJ IVP PRN ×2 (05:45→10:55)
[2019-02-19 05:49] LABS: HEMOGLOBIN 7.8 g/dL (13.5-18.0)
[2019-02-19 05:50] LABS: ANISOCYTOSIS SLIGHT; HYPOCHROMASIA 1+; PLATELET MORPHOLOGY COMMENT NORMAL (NORMAL)
[2019-02-19] MEDS: NS 1000 ML 1,000 ML IV SCH ×4 (05:55→21:44)
[2019-02-19] MEDS: LOVENOX INJ 40 MG SYR SC SCH (08:41)
[2019-02-19] MEDS: MIRALAX POWDER (1 DOSE 17 G) PO SCH (08:41)
[2019-02-19] MEDS: COLACE CAP 100 MG PO SCH ×2 (08:42→21:42)
[2019-02-19] MEDS: MILK OF MAGNESIA PO SCH ×4 (08:42→21:42)
[2019-02-19] MEDS ORDERED: TYLENOL 325 MG TAB PO PRN (11:23)
[2019-02-19] MEDS ORDERED: NS 500 ML IV 500 ML IV ONE ×2 (11:23→16:47)
[2019-02-19] MEDS ORDERED: BENADRYL INJ 50 MG VIAL IVP PRN (11:23)
--- NOTE | 2019-02-19 11:34 | DR.H&P ---
H&P - History & Physical for Day of: H&P Date: 02/17/19 - Chief Complaint Chief Complaint: NAUSEA, VOMITING, ABDOMINAL PAIN - History of Present Illness History of Present Illness: IS A 48 YEAR OLD PATIENT OF OURS WHO PRESENTED TO THE ER WITH COMPLAINTS OF NAUSEA, VOMITING, AND ABDOMINAL PAIN THAT STARTED YESTERDAY. HE REPORTS THAT SYMPTOMS HAVE PROGRESSIVELY GOTTEN WORSE SINCE YESTERDAY. HE HAS A HISTORY OF DIABETIC GASTROPARESIS. HE IS GENERALLY NON-COMPLIANT WITH A DIABETIC DIET. HE DENIES FEVER, C/C/C, DYSURIA, OR HEMATURIA. PAIN IS RATED 10/10. ON ARRIVAL, VITALS WERE 98.6-87-16-100%-197/110. LABS WERE OBTAINED. ABNORMAL LAB VALUES INCLUDE THE FOLLOWING: WBC 11.8, RBC 3.86, HGB 8.9, HCT 27.7, BUN 30, CREATININE 1.47, GLUCOSE 289, ALK PHOS 121, TOTAL PROTEIN 8.3, LIPASE 424, ACTONES NEGATIVE. AN ABDOMEN XRAY WAS OBTAINED AND REVEALED: Acute cardiopulmonary disease. Large amount of stool involving the colon extending from the cecum to the distal descending colon. No significant rectosigmoid stool is seen. There is no evidence of bowel obstruction or perforation. HE WAS GIVEN A DEMEROL 50MG IV X 1, PHENERGAN 25MG IM X 1, AND A NORMAL SALINE BOLUS. HE WAS ADMITTED FOR FURTHER EVALUATION AND TREATMENT OF INTRACTABLE NAUSEA AND VOMITING, ABDOMINAL PAIN, AND DIABETIC GASTROPARESIS. HE WAS STARTED ON NORMAL SALINE AT 150ML/HR, ZOFRAN COCKTAIL, PEPCID 20MG IV BID, CLONIDINE PATCH TD Q7D, AND HUMULIN R SLIDING SCALE. WE PLAN TO FOLLOW-UP WITH AM LABS AND CONTINUE TO MONITOR. - Past Medical History Past Medical History: Hypertension, Diabetes, PUD Additional Medical History: Diabetic Neuropathy, Diabetic Gastroparesis, Hiatal Hernia, Gastric Ulcer, Gall Bladder Disease, Back Pain - Past Surgical History Surgical History: Cholecystectomy, Ortho Surgery, Other Additional Surgical History: Right foot I&D - Family History Family Medical History: Diabetes Mellitus - Social History Does patient currently use any type of tobacco product: No Have you used tobacco products in the last 12 months: No Type of Tobacco Use: None Does any household member use tobacco: No Alcohol Use: None Drug Use: None - Medications Home Medications: codeine Allergy (Verified 01/24/19 20:08) morphine Allergy (Verified 01/24/19 20:08) CONTINUE taking the following medications sucralfate 1 tab PO ACHS 02/18/19 [History] - Review of Systems Constitutional: Weakness Eyes: No Symptoms Reported ENT: No Symptoms Reported Respiratory: No Symptoms Reported Cardiovascular: No Symptoms Reported Gastrointestinal: Nausea, Vomiting, Abdominal Pain, Constipation Genitourinary: No Symptoms Reported Musculoskeletal: No Symptoms Reported Skin: No Symptoms Reported Neurological: Weakness - Physical Exam Vital Signs: Temperature 97.7 F Pulse Rate [Left Brachial] 86 Pulse Rate 87 Respiratory Rate 17 Blood Pressure [Right Arm] 183/83 Blood Pressure [Left Arm] 126/64 Blood Pressure [Left Radial 160/102 Artery] Blood Pressure 197/110 O2 Sat by Pulse Oximetry 99 Oriented: Normal Eyes: Normal Ear: Normal Nose: Normal Throat: Normal Respiratory: Diminished Throughout Cardiovascular: Tachycardia. negative: S3, S4, Murmur : Normal Auscultation: Bowel Sounds: Increased Palpation: Normal Tenderness: Diffuse, Moderate. negative: Rebound, Guarding, Rigidity Skin: Normal Musculoskeletal: Normal Psychiatric: Normal Mood Description: Calm Affect: Normal Speech Pattern: Clear - Assessment/Plan (1) Diabetic gastroparesis Status: Acute Plan: ADMIT, NORMAL SALINE AT 150ML/HR, ZOFRAN COCKTAIL, PEPCID 20MG IV BID, CLONIDINE PATCH TD Q7D, AND HUMULIN R SLIDING SCALE, CONTINUE TO MONITOR (2) Abdominal pain Qualifiers: Abdominal location: generalized Qualified Code(s): R10.84 - Generalized abdominal pain Status: Acute (3) Intractable vomiting with nausea Qualifiers: Vomiting type: cyclical vomiting Qualified Code(s): G43.A1 - Cyclical vomiting, intractable Status: Acute (4) Anemia Qualifiers: Anemia type: iron deficiency Iron deficiency anemia type: unspecified iron deficiency Qualified Code(s): D50.9 - Iron deficiency anemia, unspecified Status: Acute - Allergies Allergies/Adverse Reactions: Allergies Allergy/AdvReac Type Severity Reaction Status Date / Time codeine Allergy Verified 01/24/19 20:08 morphine Allergy Verified 01/24/19 20:08
[2019-02-19] MEDS: PROTONIX INJ 40 MG VIAL IVP SCH ×2 (13:38→21:42)
[2019-02-19] MEDS: HumuLIN R SC PRN ×2 (17:08→23:14)
[2019-02-20] MEDS: NS 1000 ML 1,000 ML IV SCH ×2 (03:22→08:27)
[2019-02-20 05:48] LABS: BASOPHILS # (AUTO) 0.1 X10^3/uL (0.0-0.1); BASOPHILS % (AUTO) 1.6 % (0.2-1.0); EOSINOPHILS # (AUTO) 0.1 x10^3/uL (0.0-0.2); EOSINOPHILS % (AUTO) 1.6 % (0.9-2.9); HEMATOCRIT 32.4 % (42.0-54.0); LYMPHOCYTES # (AUTO) 2.4 X10^3/uL (1.3-2.9); LYMPHOCYTES % (AUTO) 25.8 % (21.0-51.0); MEAN CORPUSCULAR HEMOGLOBIN 25.5 pg (27.0-34.0); MEAN PLATELET VOLUME 8.6 fL (7.4-11.0); MONOCYTES # (AUTO) 0.8 x10^3/uL (0.3-0.8); MONOCYTES % (AUTO) 8.7 % (0.0-13.0); NEUTROPHILS # (AUTO) 5.7 x10^3/uL (2.2-4.8); NEUTROPHILS % (AUTO) 62.3 % (42.0-75.0); PLATELET COUNT 242 X10^3/uL (150.0-450.0); RED BLOOD COUNT 4.32 X10^6/uL (4.7-6.0); RED CELL DISTRIBUTION WIDTH 18.7 % (11.6-16.5); WHITE BLOOD COUNT 9.2 X10^3/uL (3.6-10.0)
[2019-02-20 05:53] LABS: HYPOCHROMASIA SLIGHT; PLATELET MORPHOLOGY COMMENT NORMAL (NORMAL)
[2019-02-20 05:58] LABS: ALANINE AMINOTRANSFERASE 16 Units/L (12-78); ALBUMIN 2.8 g/dL (3.4-5.0); ALKALINE PHOSPHATASE 99 Units/L (46-116); ASPARTATE AMINO TRANSFERASE 29 Units/L (15-37); BLOOD UREA NITROGEN 21 mg/dL (7-18); CALCIUM 7.4 mg/dL (8.5-10.1); CHLORIDE 103 mmol/L (98-107); COR CA(FOR HYPOALB) 8.4 mg/dL (8.5-10.1); COR NA(FOR HYPERGLY) 139 mmol/L (136-145); CREATININE 0.95 mg/dL (0.70-1.30); SODIUM 137 mmol/L (136-145); TOTAL PROTEIN 6.6 g/dL (6.4-8.2); eGFR NON BLACK RACES > 60 (>60)
[2019-02-20 06:51] LABS: BILIRUBIN,URINE NEGATIVE (NEGATIVE); BLOOD/HEMOGLOBIN,URINE NEGATIVE (NEGATIVE); GLUCOSE, URINE 2+ (NEGATIVE); KETONES,URINE NEGATIVE (NEGATIVE); LEUKOCYTE ESTERASE ,URINE NEGATIVE (NEGATIVE); NITRITES,URINE NEGATIVE (NEGATIVE); PROTEIN,URINE NEGATIVE (NEGATIVE); UROBILINOGEN,URINE NORMAL (NORMAL)
[2019-02-20 06:52] LABS: APPEARANCE,URINE CLEAR (CLEAR); COLOR,URINE PALE YELLOW (YELLOW)
[2019-02-20 08:26] VITALS: BP 163/85
[2019-02-20] MEDS: MIRALAX POWDER (1 DOSE 17 G) PO SCH (09:02)
[2019-02-20] MEDS: DEMEROL INJ IVP PRN (09:03)
[2019-02-20] MEDS: LOVENOX INJ 40 MG SYR SC SCH (09:04)
[2019-02-20] MEDS: MILK OF MAGNESIA PO SCH (09:04)
[2019-02-20] MEDS: PROTONIX INJ 40 MG VIAL IVP SCH (09:04)
[2019-02-20] MEDS: COLACE CAP 100 MG PO SCH (09:08)
--- NOTE | 2019-02-20 14:05 | PCM.PROG ---
Progress Note - Progress Note for Day of Date of Exam: 02/18/19 - Subjective Subjective: WAS ADMITTED FOR INTRACTABLE NAUSEA OR VOMITING, DIABETIC GASTROPARESIS, ABDOMINAL PAIN, AND ANEMIA. HE CONTINUES WITH NAUSEA, VOMITING, AND WEAKNESS TODAY. ON EXAMINATION, HE IS NOTED TO BE TACHYCARDIC. BILATERAL LUNGS ARE CLEAR TO AUSCULTATION. ABDOMEN IS ROUND, SOFT, AND NOTED WITH MILD, DIFFUSE TENDERNESS. HYPERACTIVE BOWEL SOUNDS NOTED. HIS VITALS THIS MORNING ARE 97.4-134-18-97%-183/97. LABS WERE OBTAINED. ABNORMAL LAB VALUES INCLUDE THE FOLLOWING: WBC 10.9, RBC 4.21, HGB 9.8, HCT 30.3, BUN 22, GLUCOSE 345, ALK PHOS 133, TOTAL PROTEIN 9.0. HE IS CURRENTLY RECEIVING NORMAL SALINE AT 150ML/HR, ZOFRAN COCKTAIL, PEPCID 20MG IV BID, CLONIDINE PATCH TD Q7D, AND HUMULIN R SL IDING SCALE. WE WILL CONTINUE WITH CURRENT PLAN OF CARE TODAY AND RESUME HIS HOME MEDICATIONS. OTHERWISE, WE WILL FOLLOW UP WITH AM LABS AND CONTINUE TO MONITOR. - Past Medical Family Social History Past Med/Fam/Surg Hx: No changes since H&P Allergies: Allergies codeine Allergy (Verified 01/24/19 20:08) morphine Allergy (Verified 01/24/19 20:08) - Review of Systems ROS: No change since H&P - Vital Signs and I&O's Vital Signs: Temperature 97.9 F Pulse Rate [Left Brachial] 81 Pulse Rate 87 Respiratory Rate 18 Blood Pressure [Right Arm] 183/83 Blood Pressure [Left Arm] 163/85 Blood Pressure [Left Radial 160/102 Artery] Blood Pressure 197/110 O2 Sat by Pulse Oximetry 96 Intake and Output: Intake & Output 02/18/19 02/19/19 02/20/19 02/21/19 11:59 11:59 11:59 11:59 Intake Total 660 / 660 1200 / 1200 3310 / 3310 Output Total 400 / 400 Balance 260 / 260 1200 / 1200 3310 / 3310 - Physical Exam Oriented: Normal Eyes: Normal Ear: Normal Nose: Normal Throat: Normal Respiratory: Generalized, Diminished Cardiovascular: Tachycardia. negative: S3, S4, Murmur : Normal Auscultation: Bowel Sounds: Increased Palpation: Normal Tenderness: Diffuse, Moderate. negative: Rebound, Guarding, Rigidity Skin: Normal Musculoskeletal: Normal Psychiatric: Normal Mood Description: Calm Affect: Normal Speech Pattern: Clear - Laboratory and Diagnostics Result Diagrams: 02/20/19 04:38 02/20/19 04:38 Labs: Laboratory WBC 9.2 X10^3/uL (3.6-10.0) 02/20/19 04:38 RBC 4.32 X10^6/uL (4.7-6.0) L 02/20/19 04:38 Hgb 11.0 g/dL (13.5-18.0) L D 02/20/19 04:38 Hct 32.4 % (42.0-54.0) L 02/20/19 04:38 MCV 75.0 fL (80.0-100.0) L 02/20/19 04:38 MCH 25.5 pg (27.0-34.0) L 02/20/19 04:38 MCHC 34.0 g/dL (33.0-35.0) 02/20/19 04:38 RDW 18.7 % (11.6-16.5) H 02/20/19 04:38 Plt Count 242 X10^3/uL (150.0-450.0) 02/20/19 04:38 Plt Count Comment Adequate (ADEQUATE) 02/20/19 04:38 MPV 8.6 fL (7.4-11.0) 02/20/19 04:38 Neut % (Auto) 62.3 % (42.0-75.0) 02/20/19 04:38 Lymph % (Auto) 25.8 % (21.0-51.0) 02/20/19 04:38 [place] % (Auto) 8.7 % (0.0-13.0) 02/20/19 04:38 Eos % (Auto) 1.6 % (0.9-2.9) 02/20/19 04:38 Baso % (Auto) 1.6 % (0.2-1.0) H 02/20/19 04:38 Neut # (Auto) 5.7 x10^3/uL (2.2-4.8) H 02/20/19 04:38 Lymph # (Auto) 2.4 X10^3/uL (1.3-2.9) 02/20/19 04:38 [place] # (Auto) 0.8 x10^3/uL (0.3-0.8) 02/20/19 04:38 Eos # (Auto) 0.1 x10^3/uL (0.0-0.2) 02/20/19 04:38 Baso # (Auto) 0.1 X10^3/uL (0.0-0.1) 02/20/19 04:38 Absolute Nucleated RBC 0.2 /100WBC 02/20/19 04:38 Total Counted 100 02/18/19 05:45 Neutrophils % (Manual) 84 % (39-76) H 02/18/19 05:45 Band Neutrophils % 1 % (0-10) 02/17/19 17:30 Lymphocytes % (Manual) 14 % (13-43) 02/18/19 05:45 Monocytes % (Manual) 2 % (4-9) L 02/18/19 05:45 Plt Morphology Comment Normal (NORMAL) 02/20/19 04:38 RBC Morphology Abnormal (NORMAL) 02/20/19 04:38 Hypochromasia Slight A 02/20/19 04:38 Anisocytosis Slight A 02/19/19 05:00 Microcytosis Slight A 02/17/19 17:30 Sodium 137 mmol/L (136-145) 02/20/19 04:38 Corrected Sodium 139 mmol/L (136-145) 02/20/19 04:38 Potassium 4.2 mmol/L (3.5-5.1) 02/20/19 04:38 Chloride 103 mmol/L (98-107) 02/20/19 04:38 Carbon Dioxide 26.0 mmol/L (21-32) 02/20/19 04:38 BUN 21 mg/dL (7-18) H 02/20/19 04:38 Creatinine 0.95 mg/dL (0.70-1.30) 02/20/19 04:38 Est GFR (MDRD) Af Amer > 60 (>60) 02/20/19 04:38 Est GFR (MDRD) Non-Af > 60 (>60) 02/20/19 04:38 Glucose 181 mg/dL (65-99) H 02/20/19 04:38 POC Glucose (mg/dL) 132 mg/dL (65-99) H 02/19/19 11:27 Calcium 7.4 mg/dL (8.5-10.1) L 02/20/19 04:38 Corrected Calcium 8.4 mg/dL (8.5-10.1) L 02/20/19 04:38 Total Bilirubin 0.40 mg/dL (0.2-1.0) 02/20/19 04:38 AST 29 Units/L (15-37) 02/20/19 04:38 ALT 16 Units/L (12-78) 02/20/19 04:38 Alkaline Phosphatase 99 Units/L (46-116) 02/20/19 04:38 Total Protein 6.6 g/dL (6.4-8.2) 02/20/19 04:38 Albumin 2.8 g/dL (3.4-5.0) L 02/20/19 04:38 Globulin 3.8 g/dL (2.5-4.5) 02/20/19 04:38 Albumin/Globulin Ratio 0.7 Ratio (1.1-2.1) L 02/20/19 04:38 Amylase 75 Units/L (25-115) 02/18/19 05:45 Lipase 102 Units/L (73-393) 02/18/19 05:45 Specimen Type Clean catch urine 02/20/19 06:44 Urine Color Pale yellow (YELLOW) 02/20/19 06:44 Urine Appearance Clear (CLEAR) 02/20/19 06:44 Urine pH 8.0 (5.0 - 8.0) 02/20/19 06:44 Ur Specific [place] 1.020 (1.000-1.030) 02/20/19 06:44 Urine Protein Negative (NEGATIVE) 02/20/19 06:44 Urine Glucose (UA) 2+ (NEGATIVE) 02/20/19 06:44 Urine Ketones Negative (NEGATIVE) 02/20/19 06:44 Urine Occult Blood Negative (NEGATIVE) 02/20/19 06:44 Urine Nitrite Negative (NEGATIVE) 02/20/19 06:44 Urine Bilirubin Negative (NEGATIVE) 02/20/19 06:44 Urine Urobilinogen Normal (NORMAL) 02/20/19 06:44 Ur Leukocyte Esterase Negative (NEGATIVE) 02/20/19 06:44 Urine RBC 5-10 /HPF (0-3) A 02/18/19 00:40 Urine WBC 0-2 /HPF (0-5) 02/18/19 00:40 Ur Squamous Epith Cells Negative /HPF (NEGATIVE) 02/18/19 00:40 Urine Bacteria Negative /HPF (NEGATIVE) 02/18/19 00:40 Ur Culture Indicated? No/not indicated 02/18/19 00:40 Acetone, Semi-Quant Negative (NEGATIVE) 02/17/19 17:30 Blood Type O POSITIVE 02/19/19 10:57 Antibody Screen Negative 02/19/19 10:57 Crossmatch See Detail 02/19/19 10:57 - Plan (1) Diabetic gastroparesis Status: Acute Plan: ADMIT, NORMAL SALINE AT 150ML/HR, ZOFRAN COCKTAIL, PEPCID 20MG IV BID, CLONIDINE PATCH TD Q7D, AND HUMULIN R SLIDING SCALE, CONTINUE TO MONITOR (2) Abdominal pain Status: Acute Qualifiers: Abdominal location: generalized Qualified Code(s): R10.84 - Generalized abdominal pain (3) Intractable vomiting with nausea Status: Acute Qualifiers: Vomiting type: cyclical vomiting Qualified Code(s): G43.A1 - Cyclical vomiting, intractable (4) Anemia Status: Acute Qualifiers: Anemia type: iron deficiency Iron deficiency anemia type: unspecified iron deficiency Qualified Code(s): D50.9 - Iron deficiency anemia, unspecified
== END 2019-02-20 11:20 | disposition home or self-care (01) | DRG 73 ==
LOC: ER 16:44 → MED/SURG 18:36
PROVIDERS: ADMIT Internal Medicine; ATTEND Internal Medicine
DX: K85.90 Acute pancreatitis without necrosis or infection, unspecified; K31.84 Gastroparesis; E86.0 Dehydration; D50.9 Iron deficiency anemia, unspecified; G43.A1 Cyclical vomiting, in migraine, intractable; I10 Essential (primary) hypertension; E11.43 Type 2 diabetes mellitus with diabetic autonomic (poly)neuropathy; R10.84 Generalized abdominal pain; E11.65 Type 2 diabetes mellitus with hyperglycemia
CPT/HCPCS: 36415; 36430; 74022; 80053; 81001; 81003; 82009; 82150; 83690; 85025; 86850; 86900; 86901; 86922; 96365; 96367; 96372; 96374; 96375; 99284; A4216; A4222; C9113; P9016; Q0144; S0028; G0378; J0360; J1100; J1170; J1642; J1650; J1815; J1885; J2060; J2175; J2405; J2550; J7030; J7040; J7050

== ENCOUNTER 2019-02-23 05:56 | Observation (INO) ==
--- NOTE | 2019-02-23 06:42 | DR.N/VMALE ---
HPI Time Seen Time Seen by Provider: 02/23/19 06:14 Complaints Chief Complaint:: A 48 y/o male presenting with c/o nausea, vomiting and abdominal pain for about 36 hrs. now. He was hospitalized here for same last week and was d/con 02/20/19. He has no associated fever. HE states that he saw his gastro-enterologist about 1-2 weeks ago. Source History Provided: Patient Context Onset: Spontaneous Associated Signs and Symptoms Abdominal Pain Quality: Cramping Abdominal Pain Location: Diffuse Symptoms: Abdominal Pain PMH PMH Past Medical History: Diabetes, Hypertension and PUD Surgical History: Cholecystectomy, Ortho Surgery and Other Family History Family Medical History: Diabetes Mellitus Social History Do you use any recreational Drugs:: No infectious screening Isolation: Standard ROS Review of Systems Constitutional: No Symptoms Reported Eyes: No Symptoms Reported ENTM: No Symptoms Reported Respiratoy: No Symptoms Reported Cardiovascular: No Symptoms Reported Gastrointestinal/Abdominal: Abdominal Pain, Nausea and Vomiting; negative See HPI, Constipation, Diarrhea and Food Intolerance Genitourinary: No Symptoms Reported Neurological: No Symptoms Reported Musculoskeletal: No Symptoms Reported Integumentary: No Symptoms Reported Hematologic/Lymphatic: No Symptoms Reported Endocrine: No Symptoms Reported Psychiatric: No Symptoms Reported PE Vital Signs Vitals: Temperature 97.5 F Pulse Rate [Left Brachial] 84 Pulse Rate 122 Respiratory Rate 16 Blood Pressure [Right Arm] 183/83 Blood Pressure [Left Arm] 126/70 Blood Pressure [Left Radial 160/102 Artery] Blood Pressure 162/91 O2 Sat by Pulse Oximetry 99 General Limitations: No Limitations General Appearance: Alert and In No Apparent Distress; negative Appears Intoxicated, Anxious, Lethargic, Obtunded, In Distress, Obese and Cachectic Head Head Exam: Normal Inspection, Atraumatic and Normocephalic Eyes Eye exam: Normal Appearance and EOMI ENT ENT Exam: Normal Oropharynx and Mucous Membranes Moist Neck Neck Exam: Normal Inspection, Full ROM and Trachea Midline Chest Chest Inspection: Normal Inspection and Symmetric Chest Wall Rise Respiratory Respiratory Exam: Normal Lung Sounds Bilat Cardiovascular Cardiovascular Exam: Regular Rate, Normal Rhythm, Normal Heart Sounds, +S1 and +S2 Abdominal Exam Abdominal Exam: Normal Inspection, Normal Bowel Sounds, Soft and Tenderness; negative Distention, Guarding, Rebound, Rigidity, Dimnished Bowel Sounds, Hyperactive Bowel Sounds, Hypoactive Bowel Sounds, Organomegaly, Trauma, Incision, Ascites, Mass, Bruit, Pulsatile Mass and Hernia Abdominal Tenderness: RUQ, RLQ, LUQ and LLQ Rectal Rectal Exam: Deferred Exam: Male: Deferred Extremities Extremities Exam: Normal Inspection and Full ROM Back Back Exam: Normal Inspection and Full ROM Neurologic Neurological Exam: Alert and Oriented X3 Psychiatric Psychiatric Exam: Normal Affect and Normal Mood Skin Skin Exam: Dry and Normal Color COURSE Treatment Treatment: This pt. was endorsed over to care of Dr. Piña in stable condition at shift change about 0805 hrs. ROR Labs Reviewed Result Diagrams: 02/24/19 05:58 02/24/19 05:58 Laboratory: WBC 12.2 X10^3/uL (3.6-10.0) H 02/24/19 05:58 RBC 4.73 X10^6/uL (4.7-6.0) 02/24/19 05:58 Hgb 11.5 g/dL (13.5-18.0) L 02/24/19 05:58 Hct 34.7 % (42.0-54.0) L 02/24/19 05:58 MCV 73.4 fL (80.0-100.0) L 02/24/19 05:58 MCH 24.2 pg (27.0-34.0) L 02/24/19 05:58 MCHC 33.0 g/dL (33.0-35.0) 02/24/19 05:58 RDW 19.7 % (11.6-16.5) H 02/24/19 05:58 Plt Count 276 X10^3/uL (150.0-450.0) 02/24/19 05:58 Plt Count Comment Adequate (ADEQUATE) 02/24/19 05:58 MPV 7.8 fL (7.4-11.0) 02/24/19 05:58 Neut % (Auto) 75.8 % (42.0-75.0) H 02/24/19 05:58 Lymph % (Auto) 16.6 % (21.0-51.0) L 02/24/19 05:58 [place] % (Auto) 6.5 % (0.0-13.0) 02/24/19 05:58 Eos % (Auto) 0.1 % (0.9-2.9) L 02/24/19 05:58 Baso % (Auto) 1.0 % (0.2-1.0) 02/24/19 05:58 Neut # (Auto) 9.2 x10^3/uL (2.2-4.8) H 02/24/19 05:58 Lymph # (Auto) 2.0 X10^3/uL (1.3-2.9) 02/24/19 05:58 [place] # (Auto) 0.8 x10^3/uL (0.3-0.8) 02/24/19 05:58 Eos # (Auto) 0.0 x10^3/uL (0.0-0.2) 02/24/19 05:58 Baso # (Auto) 0.1 X10^3/uL (0.0-0.1) 02/24/19 05:58 Absolute Nucleated RBC 0.0 /100WBC 02/24/19 05:58 Plt Morphology Comment Normal (NORMAL) 02/24/19 05:58 RBC Morphology Abnormal (NORMAL) 02/24/19 05:58 Hypochromasia Slight A 02/24/19 05:58 Anisocytosis Slight A 02/24/19 05:58 Sodium 137 mmol/L (136-145) 02/24/19 05:58 Corrected Sodium 137 mmol/L (136-145) 02/24/19 05:58 Potassium 3.9 mmol/L (3.5-5.1) 02/24/19 05:58 Chloride 101 mmol/L (98-107) 02/24/19 05:58 Carbon Dioxide 27.8 mmol/L (21-32) 02/24/19 05:58 BUN 21 mg/dL (7-18) H 02/24/19 05:58 Creatinine 1.23 mg/dL (0.70-1.30) 02/24/19 05:58 Est GFR (MDRD) Af Amer > 60 (>60) 02/24/19 05:58 Est GFR (MDRD) Non-Af > 60 (>60) 02/24/19 05:58 Glucose 117 mg/dL (65-99) H 02/24/19 05:58 POC Glucose (mg/dL) 121 mg/dL (65-99) H 02/24/19 05:39 Calcium 8.7 mg/dL (8.5-10.1) 02/24/19 05:58 Corrected Calcium 9.3 mg/dL (8.5-10.1) 02/24/19 05:58 Total Bilirubin 0.40 mg/dL (0.2-1.0) 02/24/19 05:58 AST 10 Units/L (15-37) L 02/24/19 05:58 ALT 13 Units/L (12-78) 02/24/19 05:58 Alkaline Phosphatase 100 Units/L (46-116) 02/24/19 05:58 Total Protein 7.0 g/dL (6.4-8.2) 02/24/19 05:58 Albumin 3.2 g/dL (3.4-5.0) L 02/24/19 05:58 Globulin 3.8 g/dL (2.5-4.5) 02/24/19 05:58 Albumin/Globulin Ratio 0.8 Ratio (1.1-2.1) L 02/24/19 05:58 Amylase 64 Units/L (25-115) 02/23/19 06:52 Lipase 87 Units/L (73-393) 02/23/19 06:52 Urine Acetone Negative (NEGATIVE) 02/23/19 14:30 Opioid Opioid Risk Tool Personal Hx of Substance Abuse: Prescription Drugs Age (Paddy box if 16-45): No History of Preadolescent Sexual Abuse: No Total: 0 Total Score Risk Category: Low Risk Copyright: Steven STEPHEN predicting aberrant behaviors Diagnosis Discharge Problem: Abdominal pain, Gastroparesis, Intractable vomiting with nausea, Hypertension
[2019-02-23] MEDS ORDERED: ZOFRAN INJ 4 MG VIAL IVP ONE (06:53)
[2019-02-23] MEDS ORDERED: TORADOL 30 MG VIAL IVP ONE (06:53)
[2019-02-23] MEDS ORDERED: TORADOL 30 MG VIAL ONE (06:56)
[2019-02-23] MEDS ORDERED: ZOFRAN INJ 4 MG VIAL ONE (06:56)
[2019-02-23 07:05] LABS: BASOPHILS # (AUTO) 0.2 X10^3/uL (0.0-0.1); BASOPHILS % (AUTO) 1.3 % (0.2-1.0); EOSINOPHILS % (AUTO) 0.2 % (0.9-2.9); HEMATOCRIT 38.6 % (42.0-54.0); HEMOGLOBIN 12.9 g/dL (13.5-18.0); LYMPHOCYTES # (AUTO) 2.3 X10^3/uL (1.3-2.9); LYMPHOCYTES % (AUTO) 16.1 % (21.0-51.0); MEAN CORPUSCULAR HEMOGLOBIN 24.6 pg (27.0-34.0); MEAN CORPUSCULAR HGB CONC 33.3 g/dL (33.0-35.0); MEAN CORPUSCULAR VOLUME 73.9 fL (80.0-100.0); MEAN PLATELET VOLUME 8.1 fL (7.4-11.0); MONOCYTES # (AUTO) 1.2 x10^3/uL (0.3-0.8); MONOCYTES % (AUTO) 8.2 % (0.0-13.0); NEUTROPHILS # (AUTO) 10.7 x10^3/uL (2.2-4.8); NEUTROPHILS % (AUTO) 74.2 % (42.0-75.0); PLATELET COUNT 300 X10^3/uL (150.0-450.0); RED BLOOD COUNT 5.22 X10^6/uL (4.7-6.0); RED CELL DISTRIBUTION WIDTH 19.2 % (11.6-16.5); WHITE BLOOD COUNT 14.4 X10^3/uL (3.6-10.0)
[2019-02-23 07:11] LABS: ALANINE AMINOTRANSFERASE 18 Units/L (12-78); ALKALINE PHOSPHATASE 132 Units/L (46-116); AMYLASE 64 Units/L (25-115); ASPARTATE AMINO TRANSFERASE 10 Units/L (15-37); BLOOD UREA NITROGEN 19 mg/dL (7-18); CALCIUM 10.4 mg/dL (8.5-10.1); CARBON DIOXIDE 28.5 mmol/L (21-32); CHLORIDE 96 mmol/L (98-107); COR NA(FOR HYPERGLY) 139 mmol/L (136-145); CREATININE 1.23 mg/dL (0.70-1.30); LIPASE 87 Units/L (73-393); SODIUM 135 mmol/L (136-145); TOTAL PROTEIN 8.6 g/dL (6.4-8.2); eGFR NON BLACK RACES > 60 (>60)
--- NOTE | 2019-02-23 07:12 | RAD ---
HISTORY: Abdominal pain, nausea, vomiting Study: Flat and upright abdomen, PA chest Comparison: 02/17/2019 Findings: There is a port present on the left. The heart size is normal. [place] are normal. Lung tejada are clear. The abdominal gas pattern is nonspecific and nonobstructive. No pneumoperitoneum is identified. No abnormal masses or abnormal calcifications are identified. IMPRESSION: No definite acute abdominal abnormality Lungs clear Reported By:
[2019-02-23 07:13] LABS: HYPOCHROMASIA SLIGHT; PLATELET MORPHOLOGY COMMENT NORMAL (NORMAL)
[2019-02-23] MEDS ORDERED: APRESOLINE INJ 20 MG VIAL IVP ONE (07:56)
[2019-02-23] MEDS ORDERED: DILAUDID INJ IVP ONE (07:57)
[2019-02-23] MEDS ORDERED: APRESOLINE INJ 20 MG VIAL ONE (08:14)
[2019-02-23] MEDS ORDERED: DILAUDID INJ ONE (08:15)
[2019-02-23] MEDS ORDERED: NS 1000 ML 1,000 ML ONE (08:16)
[2019-02-23] MEDS ORDERED: NS 1000 ML 1,000 ML IV ONE (08:20)
[2019-02-23] MEDS ORDERED: ZOFRAN INJ 4 MG VIAL 16 MG, ATIVAN INJ 2 MG VIAL 1 MG, DECADRON INJ 10 MG in NS 50 ML I... IV ONE (08:20)
[2019-02-23] MEDS ORDERED: NS 1000 ML 1,000 ML IV SCH (09:00)
[2019-02-23] MEDS ORDERED: PHENERGAN INJ 25 MG IM PRN (09:01)
[2019-02-23] MEDS: PROTONIX INJ 40 MG VIAL IVP SCH ×2 (10:11→21:03)
[2019-02-23] MEDS: CARAFATE PO SCH ×4 (10:11→21:02)
[2019-02-23] MEDS: COZAAR PO SCH (10:12)
[2019-02-23] MEDS: NORVASC TAB 5 MG PO SCH (10:12)
[2019-02-23] MEDS: PEPCID 20 MG IV PREMIX* 20 MG/50 ML BAG IV SCH ×2 (10:12→21:01)
--- NOTE | 2019-02-23 10:21 | DR.UPDATE ---
H&P Update History and Physical Update: History and Physical reviewed and patient examined. Changes noted: Yes with the following: H&P WAS COMPLETED WITH HIS PREVIOUS VISIT ON 02/17/19. HE WAS DISCHARGED HOME FROM THE HOSPITAL ON 02/20/19. HE RETURNED TO THE ER WITH THE SAME COMPLAINTS OF NAUSEA, VOMITING, AND ABDOMINAL PAIN THAT STARTED YESTERDAY. HE REPORTS THAT SYMPTOMS HAVE PROGRESSIVELY GOTTEN WORSE SINCE DISCHARGE. HE DENIES FEVER, C/C/C, DYSURIA, OR HEMATURIA. PAIN IS RATED 10/10. ON ARRIVAL, VITALS WERE 9 7.7-802-29-100%-211/131. LABS WERE OBTAINED. ABNORMAL LAB VALUES INCLUDE THE FOLLOWING: WBC 14.4, HGB 12.9, HCT 38.6, SODIUM 135, CHLORIDE 96, BUN 19, GLUCOSE 249, CALCIUM 10.4, AST 10, ALK PHOS 132, TOTAL PROTEIN 8.6, GLOBULIN 4.6. AN ABDOMEN XRAY WAS OBTAINED AND REVEALED: No definite acute abdominal abnormality. Lungs clear. HE WAS GIVEN A DILAUDID 2MG IV X 1, TORADOL 30MG IV X 1, ZOFRAN 4MG IV X 1, APRESOLINE 5MG IV X 1, A ZOFRAN COCKTAIL, AND A NORMAL SALINE BOLUS. BLOOD PRESSURE DECREASED TO 162/91, BUT HE CONTINUE WITH NAUSEA AND SLIGHT ABDOMINAL PAIN. HE WAS ADMITTED FOR FURTHER EVALUATION AND TREATMENT OF INTRACTABLE NAUSEA AND VOMITING, ABDOMINAL PAIN, AND DIABETIC GASTROPARESIS. HE WAS STARTED ON NORMAL SALINE AT 125ML/HR, ZOFRAN COCKTAIL, PEPCID 20MG IV BID, PROTONIX 40MG IV BID, CLONIDINE PATCH TD Q7D, REMERON 15MG PO HS, PHENERGAN 25MG IM Q6H PRN, DEMEROL 25MG IV Q6H PRN, AND HUMULIN R SLIDING SCALE. WE PLAN TO FOLLOW-UP WITH AM LABS AND CONTINUE TO MONITOR. Prescription drug monitoring program results: PDMP was not reviewed
[2019-02-23] MEDS: HumuLIN R SUBCUT PRN ×3 (13:14→23:29)
[2019-02-23] MEDS: NS 1000 ML 1,000 ML IV PRN ×2 (15:05→21:11)
[2019-02-23] MEDS: DEMEROL INJ IVP PRN ×2 (15:05→22:50)
[2019-02-23] MEDS: CATAPRES-TTS-3 TD SCH (15:05)
[2019-02-23] MEDS ORDERED: SNACK - Diabetic Appropriate PO SCH (20:00)
[2019-02-23] MEDS ORDERED: NORCO 10/325 TAB PO PRN (20:46)
[2019-02-23] MEDS ORDERED: LEVSIN SYRUP PO PRN (20:46)
[2019-02-23] MEDS ORDERED: RESTORIL CAP 30 MG PO SCH (21:00)
[2019-02-23] MEDS ORDERED: REMERON PO SCH (21:00)
[2019-02-23] MEDS ORDERED: ZITHROMAX TAB 250 MG PO SCH (22:00)
[2019-02-24] MEDS: NEURONTIN CAP 300 MG PO SCH ×3 (05:53→14:40)
[2019-02-24] MEDS: CARAFATE PO SCH ×3 (05:54→13:16)
[2019-02-24 06:22] LABS: BASOPHILS # (AUTO) 0.1 X10^3/uL (0.0-0.1); EOSINOPHILS % (AUTO) 0.1 % (0.9-2.9); HEMATOCRIT 34.7 % (42.0-54.0); HEMOGLOBIN 11.5 g/dL (13.5-18.0); LYMPHOCYTES % (AUTO) 16.6 % (21.0-51.0); MEAN CORPUSCULAR HEMOGLOBIN 24.2 pg (27.0-34.0); MEAN CORPUSCULAR VOLUME 73.4 fL (80.0-100.0); MEAN PLATELET VOLUME 7.8 fL (7.4-11.0); MONOCYTES # (AUTO) 0.8 x10^3/uL (0.3-0.8); MONOCYTES % (AUTO) 6.5 % (0.0-13.0); NEUTROPHILS # (AUTO) 9.2 x10^3/uL (2.2-4.8); NEUTROPHILS % (AUTO) 75.8 % (42.0-75.0); PLATELET COUNT 276 X10^3/uL (150.0-450.0); RED BLOOD COUNT 4.73 X10^6/uL (4.7-6.0); RED CELL DISTRIBUTION WIDTH 19.7 % (11.6-16.5); WHITE BLOOD COUNT 12.2 X10^3/uL (3.6-10.0)
[2019-02-24 06:39] LABS: ALANINE AMINOTRANSFERASE 13 Units/L (12-78); ALBUMIN 3.2 g/dL (3.4-5.0); ALKALINE PHOSPHATASE 100 Units/L (46-116); ASPARTATE AMINO TRANSFERASE 10 Units/L (15-37); BLOOD UREA NITROGEN 21 mg/dL (7-18); CALCIUM 8.7 mg/dL (8.5-10.1); CARBON DIOXIDE 27.8 mmol/L (21-32); CHLORIDE 101 mmol/L (98-107); COR CA(FOR HYPOALB) 9.3 mg/dL (8.5-10.1); COR NA(FOR HYPERGLY) 137 mmol/L (136-145); CREATININE 1.23 mg/dL (0.70-1.30); SODIUM 137 mmol/L (136-145); eGFR NON BLACK RACES > 60 (>60)
[2019-02-24 06:50] LABS: ANISOCYTOSIS SLIGHT; HYPOCHROMASIA SLIGHT; PLATELET MORPHOLOGY COMMENT NORMAL (NORMAL)
[2019-02-24] MEDS ORDERED: PHARMACY CONSULT - DOSE _____ XX SCH (08:00)
[2019-02-24 08:24] VITALS: BMI 24.9
[2019-02-24] MEDS ORDERED: GLUCOTROL PO SCH (09:00)
[2019-02-24] MEDS ORDERED: K-DUR TAB 20 MEQ PO SCH (09:00)
[2019-02-24] MEDS: PEPCID 20 MG IV PREMIX* 20 MG/50 ML BAG IV SCH (10:07)
[2019-02-24] MEDS ORDERED: NS 1000 ML 1,000 ML IV ONE (10:09)
[2019-02-24] MEDS ORDERED: ZOFRAN INJ 4 MG VIAL 16 MG, ATIVAN INJ 2 MG VIAL 1 MG, DECADRON INJ 10 MG in NS 50 ML I... IV ONE (10:09)
[2019-02-24] MEDS: NORVASC TAB 5 MG PO SCH (10:13)
[2019-02-24] MEDS: COZAAR PO SCH (10:19)
[2019-02-24] MEDS: PROTONIX INJ 40 MG VIAL IVP SCH (10:20)
[2019-02-24] MEDS: DEMEROL INJ IVP PRN (10:22)
[2019-02-24] MEDS: LEVSIN/MAALOX/LIDOC VISC PO SCH ×2 (11:00→13:07)
[2019-02-24 16:03] VITALS: BP 96/67
[2019-02-24] MEDS ORDERED: SNACK - Diabetic Appropriate PO SCH (20:00)
== END 2019-02-24 15:10 | disposition home or self-care (01) ==
LOC: MED/SURG 05:58 → ER 05:58 → MED/SURG 09:06
PROVIDERS: ADMIT Internal Medicine; ATTEND Internal Medicine
DX: R10.84 Generalized abdominal pain; R11.2 Nausea with vomiting, unspecified; K31.84 Gastroparesis; I10 Essential (primary) hypertension; E11.43 Type 2 diabetes mellitus with diabetic autonomic (poly)neuropathy
CPT/HCPCS: 36415; 74022; 80053; 82009; 82150; 83690; 85025; 96365; 96367; 96374; 96375; 99284; A4216; A4222; C9113; Q0144; S0028; G0378; J0360; J1100; J1170; J1642; J1815; J1885; J2060; J2175; J2405; J7030; J7050

== ENCOUNTER 2019-03-25 17:06 | Inpatient (IN) ==
--- NOTE | 2019-03-25 17:20 | DR.GENAD ---
HPI Time Seen Time Seen by Provider: 03/25/19 17:20 PCP Primary Care Physician: ethan HPI Comment HPI Comment: PATIENT IS 48YR OLD MALE IN THE EMERGENCY ROOM WITH ABDOMINAL PAIN, NAUSEA AND VOMITING TIMES SEVERAL HOURS. PATIENTS PAIN IS 10/10 AND RADIATES TO THE BACK. HISTORY SIMILAR PAIN IN THE PAST. HE IS NOT HOLDING DOWN FOOD, MEDICATION OR FLUID. HISTORY DIABETIC GASTROPARESIS. NO FEVER, DYSURIA OR DIARRHEA. Complaint/Symptoms Chief Complaint Doctors Comments: ABDOMINAL PAIN, NAUSEA AND VOMITING THAT STARTED TODAY. Chief Complaint:: pt stated earlier today he started feeling sick and then began to vomit and the nausea hit him. Nurses notes reviewed Nurses Notes Review: Yes Source History Provided: Patient and Family Member Mode of Arrival Mode of Arrival: Ambulatory Timing Onset of Chief Complaint: 03/25/19 Came on: Suddenly Duration Duration: Constant Duration: Hours Severity Severity: Severe Modifying Factors Worsens:: WHEN HETRY TO DRINK FLUID. Improves:: NOTHING. Associated Signs and Symptoms Associated Signs and Symptoms: GENERALIZED WEAKNESS. Other History Other History: HISTORY DM AND HYPERTENSION AND DIABETIC GASTROPARESIS. PMH PMH Past Medical History: Yes Past Medical History: Diabetes, Hypertension and PUD Past Surgical History: Yes Surgical History: Cholecystectomy, Ortho Surgery and Other Family History History of Family Medical Conditions: Yes Family Medical History: Diabetes Mellitus Social History Does patient currently use any type of tobacco product: No Have you used tobacco products in the last 12 months: No Type of Tobacco Use: None Does any household member use tobacco: No Alcohol Use: None Do you use any recreational Drugs:: No Lives With: Family Lives Where: Home infectious screening In the last 2 months have you had wt loss of >10#?: NO Have you had fever, night sweats or hemotysis?: No Have you traveled outside the country in the last 6 months?: No Isolation: Standard ROS Review of Systems Constitutional: See HPI, Diaphoresis, Malaise, Weakness, Fatigue and Loss of Appetite; negative Chills and Fever Eyes: No Symptoms Reported and See HPI; negative Eye Pain, Blurred Vision, Tearing, Photophobia and Diplopia ENTM: No Symptoms Reported and See HPI; negative Ear Pain, Nose Pain, Nose Discharge and Throat Pain Respiratoy: No Symptoms Reported and See HPI; negative Moist Cough, Short of Breath, Wheezing and Hemoptysis Cardiovascular: No Symptoms Reported, See HPI and Palpitations Gastrointestinal/Abdominal: See HPI, Abdominal Pain, Nausea and Vomiting; negative Constipation and Diarrhea Genitourinary: No Symptoms Reported and See HPI; negative Dysuria, Frequency and Hematuria Neurological: See HPI and Weakness; negative Headache and Dizziness Musculoskeletal: See HPI and Muscle Pain; negative Back Pain Integumentary: See HPI and Dryness Hematologic/Lymphatic: No Symptoms Reported and See HPI; negative Easy Bruising and Swollen Glands Endocrine: See HPI, Increased Thirst, Increased Urine and Decreased Appetite Psychiatric: No Symptoms Reported and See HPI All Other Systems: Reviewed and Negative PE Vital Signs Vitals: Temperature 98.6 F Pulse Rate [Apical] 112 Pulse Rate 109 Respiratory Rate 27 Blood Pressure [Right Arm] 183/83 Blood Pressure [Left Arm] 149/87 Blood Pressure 173/96 O2 Sat by Pulse Oximetry 97 General Limitations: No Limitations General Appearance: Alert and In No Apparent Distress Head Head Exam: Normal Inspection, Atraumatic and Normocephalic Eyes Eye exam: Normal Appearance, PERRL and EOMI; negative Scleral Icterus and Conjunctival Injection ENT ENT Exam: Normal Exam, Normal Oropharynx, Normal External Ear Exam and TM's Normal Bilaterally External Ear Exam: Normal External Inspection; negative Mastoid Tenderness, Pain with Movement and External Tenderness TM/Canal Exam: Bilateral: Normal Nose Exam: Normal Nose Exam; negative Sinus Tenderness, Nasal Deviation and Se ptal Hematoma Mouth Exam: Normal Inspection, Lip Swelling and Tongue Swelling Throat Exam: Normal Inspection; negative Tonsillar Erythema, Tonsillomegaly and Tonsillar Exudate Neck Neck Exam: Normal Inspection and Trachea Midline; negative Tenderness and Lymphadenopathy Chest Chest Inspection: Normal Inspection and Symmetric Chest Wall Rise; negative Tenderness Respiratory Respiratory Exam: Respiratory Distress; negative Accessory Muscle Use and Chest Wall Tenderness Respiratory Exam: Bilateral: Rhonchi and Lower: Rhonchi Cardiovascular Cardiovascular Exam: Tachycardia, Irregular Rhythm and Normal Heart Sounds; negative Systolic Murmur and Diastolic Murmur Abdominal Exam Abdominal Exam: Normal Bowel Sounds, Soft and Tenderness; negative Organomegaly and Mass Abdominal Tenderness: Diffuse and Moderate Extremities Extremities Exam: Normal Inspection, Tenderness and Normal Capillary Refill; negative Edema and Calf Tenderness Back Back Exam: Normal Inspection; negative Tenderness, (R) CVA Tenderness, (L) CVA T enderness, Paraspinal Tenderness and Vertebral Tenderness Neurologic Neurological Exam: Alert and Oriented X3; negative CN II-XII Intact and Motor Sensory Deficit Psychiatric Psychiatric Exam: Normal Affect and Normal Mood Skin Skin Exam: Dry MDM Additional Information Additional Information Obtained From: Family Differential Diagnosis Differential Diagnosis: ABDOMINAL PAIN, NAUSEA/VOMITING, DIABETIC GASTROPARESIS, DKA, UTI PNEUMONIA COURSE Treatment Treatment: SEE ORDERS. NS 1L AT 125CC/HR, S[place] 4MG AND DEMOROL 50MG IV AND PHENERGAN 25 IM. REPEAT DEMOROL 50MG IV. LEVAQUIN 750MG IVPB. Reevaluation 1st: Improved Consultation Consultation Comments: DISCUSS PATIENT WITH DR. NASSAR. WILL ADMIT PATIENT. WANT LACTIC ACID LEVEL AND NON CONTRAST CT ABD AND PELVIS BECAUSE SOURCE OF PATIENTS LEUKOCYTOSIS IS NOT YET DIAGNOSE. Education/Counseling Education/Counseling: Patient and Family Educated On: Treatment and Diagnosis ROR Labs Reviewed Laboratory Results Reviewed?: Yes Result Diagrams: 03/25/19 17:31 03/25/19 23:45 Laboratory: WBC 17.3 X10^3/uL (3.6-10.0) H 03/25/19 17:31 RBC 5.06 X10^6/uL (4.7-6.0) 03/25/19 17:31 Hgb 12.3 g/dL (13.5-18.0) L 03/25/19 17:31 Hct 37.6 % (42.0-54.0) L 03/25/19 17: MCV 74.4 fL (80.0-100.0) L 03/25/19 17:31 MCH 24.4 pg (27.0-34.0) L 03/25/19 17: MCHC 32.7 g/dL (33.0-35.0) L 03/25/19 17: RDW 20.5 % (11.6-16.5) H 03/25/19 17:31 Plt Count 267 X10^3/uL (150.0-450.0) 03/25/19 17:31 Plt Count Comment Adequate (ADEQUATE) 03/25/19 17: MPV 8.8 fL (7.4-11.0) 03/25/19 17:31 Neut % (Auto) 92.8 % (42.0-75.0) H 03/25/19 17: Lymph % (Auto) 5.0 % (21.0-51.0) L 03/25/19 17:31 [place] % (Auto) 1.8 % (0.0-13.0) 03/25/19 17:31 Eos % (Auto) 0.0 % (0.9-2.9) L 03/25/19 17:31 Baso % (Auto) 0.4 % (0.2-1.0) 03/25/19 17:31 Neut # (Auto) 16.0 x10^3/uL (2.2-4.8) H 03/25/19 17:31 Lymph # (Auto) 0.9 X10^3/uL (1.3-2.9) L 03/25/19 17:31 [place] # (Auto) 0.3 x10^3/uL (0.3-0.8) 03/25/19 17:31 Eos # (Auto) 0.0 x10^3/uL (0.0-0.2) 03/25/19 17:31 Baso # (Auto) 0.1 X10^3/uL (0.0-0.1) 03/25/19 17:31 Absolute Nucleated RBC 0.0 /100WBC 03/25/19 17:31 Total Counted 100 03/25/19 17:31 Neutrophils % (Manual) 90 % (39-76) H 03/25/19 17:31 Lymphocytes % (Manual) 8 % (13-43) L 03/25/19 17:31 Monocytes % (Manual) 2 % (4-9) L 03/25/19 17:31 Plt Morphology Comment Normal (NORMAL) 03/25/19 17:31 RBC Morphology Abnormal (NORMAL) 03/25/19 17:31 Hypochromasia Slight A 03/25/19 17:31 Anisocytosis 1+ A 03/25/19 17:31 Microcytosis Slight A 03/25/19 17:31 Sodium 138 mmol/L (136-145) 03/25/19 17:31 Corrected Sodium 146 mmol/L (136-145) H 03/25/19 17:31 Potassium 4.2 mmol/L (3.5-5.1) 03/25/19 17:31 Chloride 98 mmol/L (98-107) 03/25/19 17:31 Carbon Dioxide 23.9 mmol/L (21-32) 03/25/19 17:31 BUN 17 mg/dL (7-18) 03/25/19 17:31 Creatinine 1.28 mg/dL (0.70-1.30) 03/25/19 17:31 Est GFR (MDRD) Af Amer > 60 (>60) 03/25/19 17:31 Est GFR (MDRD) Non-Af > 60 (>60) 03/25/19 17:31 Glucose 417 mg/dL (65-99) H 03/25/19 17:31 POC Glucose (mg/dL) 338 mg/dL (65-99) H 03/25/19 22:10 Lactic Acid 3.1 mmol/L (0.4-2.0) H 03/25/19 20:55 Calcium 10.0 mg/dL (8.5-10.1) 03/25/19 17:31 Corrected Calcium TNP 03/25/19 17:31 Total Bilirubin 0.70 mg/dL (0.2-1.0) 03/25/19 17:31 AST 16 Units/L (15-37) 03/25/19 17:31 ALT 29 Units/L (12-78) 03/25/19 17:31 Alkaline Phosphatase 210 Units/L (46-116) H 03/25/19 17:31 Creatine Kinase 196 Units/L (39-308) 03/25/19 17:31 CK-MB (CK-2) 2.0 ng/mL (0-4.0) 03/25/19 17:31 CK/CKMB % Calc 1.0 % (<4) 03/25/19 17:31 Troponin I < 0.02 ng/mL (0-1.5) 03/25/19 17:31 Total Protein 9.6 g/dL (6.4-8.2) H 03/25/19 17:31 Albumin 4.2 g/dL (3.4-5.0) 03/25/19 17:31 Globulin 5.4 g/dL (2.5-4.5) H 03/25/19 17:31 Albumin/Globulin Ratio 0.8 Ratio (1.1-2.1) L 03/25/19 17:31 Amylase 72 Units/L (25-115) 03/25/19 17:31 Lipase 107 Units/L (73-393) 10/17/19 17:31 Specimen Type Random urine 03/25/19 19:34 Urine Color Yellow (YELLOW) 03/25/19 19:34 Urine Appearance Clear (CLEAR) 03/25/19 19:34 Urine pH 6.0 (5.0 - 8.0) 03/25/19 19:34 Ur Specific [place] 1.010 (1.000-1.030) 03/25/19 19:34 Urine Protein 3+ (NEGATIVE) 03/25/19 19:34 Urine Glucose (UA) 4+ (NEGATIVE) 03/25/19 19:34 Urine Ketones 3+ (NEGATIVE) 03/25/19 19:34 Urine Occult Blood 3+ (NEGATIVE) 03/25/19 19:34 Urine Nitrite Negative (NEGATIVE) 03/25/19 19:34 Urine Bilirubin Negative (NEGATIVE) 03/25/19 19:34 Urine Urobilinogen Normal (NORMAL) 03/25/19 19:34 Ur Leukocyte Esterase Negative (NEGATIVE) 03/25/19 19:34 Urine RBC 5-10 /HPF (0-3) A 03/25/19 19:34 Urine WBC None seen /HPF (0-5) 03/25/19 19:34 Ur Squamous Epith Cells Negative /HPF (NEGATIVE) 03/25/19 19:34 Urine Bacteria Negative /HPF (NEGATIVE) 03/25/19 19:34 Urine Mucus Few /HPF (NEGATIVE) 03/25/19 19:34 Ur Culture Indicated? No/not indicated 03/25/19 19:34 Urine Opiates Screen Negative (NEG=<300) 03/25/19 19:35 Urine Methadone Screen Negative (NEG=<300) 03/25/19 19:35 Ur Barbiturates Screen Negative (NEG=<200) 03/25/19 19:35 Ur Phencyclidine Scrn Negative (NEG=<25) 03/25/19 19:35 Ur Amphetamines Screen Negative (NEG=<1000) 03/25/19 19:35 U Benzodiazepines Scrn Negative (NEG=<200) 03/25/19 19:35 Urine Cocaine Screen Negative (NEG=<300) 03/25/19 19:35 U Marijuana (THC) Screen Negative (NEG=<50) 03/25/19 19:35 Acetone, Semi-Quant Negative (NEGATIVE) 03/25/19 17:46 XRAY XRAY Interpreted by: Radiologist XRAY Findings: REPORT NOTED. EKG Rate: 135 [place]: Normal Rhythm: Afib (RVR.) Block: None Hypertrophy: None ST: Nonsp Opioid Opioid Risk Tool Personal Hx of Substance Abuse: Prescription Drugs Age (Paddy box if 16-45): No History of Preadolescent Sexual Abuse: No Total: 0 Total Score Risk Category: Low Risk Copyright: Harris predicting aberrant behaviors Diagnosis Discharge Problem: Abdominal pain, Nausea & vomiting, Acute hyperglycemia, Elevated lactic acid level, Atrial fibrillation Pneumonia Qualifiers: Pneumonia type: due to unspecified organism Laterality: bilateral Instructions Forms: Excuse From Work Patient Portal
[2019-03-25] MEDS ORDERED: DEMEROL INJ IVP ONE (17:24)
[2019-03-25] MEDS ORDERED: ZOFRAN INJ 4 MG VIAL IVP ONE (17:24)
[2019-03-25] MEDS ORDERED: ZOFRAN INJ 4 MG VIAL ONE (17:33)
[2019-03-25] MEDS ORDERED: DEMEROL INJ ONE (17:34)
[2019-03-25 17:40] LABS: BASOPHILS # (AUTO) 0.1 X10^3/uL (0.0-0.1); BASOPHILS % (AUTO) 0.4 % (0.2-1.0); HEMATOCRIT 37.6 % (42.0-54.0); HEMOGLOBIN 12.3 g/dL (13.5-18.0); LYMPHOCYTES # (AUTO) 0.9 X10^3/uL (1.3-2.9); MEAN CORPUSCULAR HEMOGLOBIN 24.4 pg (27.0-34.0); MEAN CORPUSCULAR HGB CONC 32.7 g/dL (33.0-35.0); MEAN CORPUSCULAR VOLUME 74.4 fL (80.0-100.0); MEAN PLATELET VOLUME 8.8 fL (7.4-11.0); MONOCYTES # (AUTO) 0.3 x10^3/uL (0.3-0.8); MONOCYTES % (AUTO) 1.8 % (0.0-13.0); NEUTROPHILS % (AUTO) 92.8 % (42.0-75.0); PLATELET COUNT 267 X10^3/uL (150.0-450.0); RED BLOOD COUNT 5.06 X10^6/uL (4.7-6.0); RED CELL DISTRIBUTION WIDTH 20.5 % (11.6-16.5); WHITE BLOOD COUNT 17.3 X10^3/uL (3.6-10.0)
[2019-03-25 17:48] LABS: HYPOCHROMASIA SLIGHT; PLATELET MORPHOLOGY COMMENT NORMAL (NORMAL)
[2019-03-25 17:49] LABS: ANISOCYTOSIS 1+; MICROCYTOSIS SLIGHT
[2019-03-25] MEDS: NS 1000 ML 1,000 ML IV SCH (17:50)
[2019-03-25 17:54] LABS: ALANINE AMINOTRANSFERASE 29 Units/L (12-78); ALBUMIN 4.2 g/dL (3.4-5.0); ALKALINE PHOSPHATASE 210 Units/L (46-116); AMYLASE 72 Units/L (25-115); ASPARTATE AMINO TRANSFERASE 16 Units/L (15-37); BLOOD UREA NITROGEN 17 mg/dL (7-18); CARBON DIOXIDE 23.9 mmol/L (21-32); CHLORIDE 98 mmol/L (98-107); COR NA(FOR HYPERGLY) 146 mmol/L (136-145); CREATININE 1.28 mg/dL (0.70-1.30); LIPASE 107 Units/L (73-393); SODIUM 138 mmol/L (136-145); TOTAL PROTEIN 9.6 g/dL (6.4-8.2); eGFR NON BLACK RACES > 60 (>60)
--- NOTE | 2019-03-25 18:19 | RAD ---
ACUTE ABDOMINAL SERIES CLINICAL HISTORY: 48-year-old male with abdominal pain, nausea vomiting. COMPARISON: Acute abdominal series radiographs 02/23/2019. FINDINGS: PA chest radiograph demonstrates normal cardiopericardial silhouette. There is no focal consolidation, pleural effusion or pneumothorax. Pulmonary vascularity is normal. Left chest chemo port via IJ approach with distal tip overlying the right atrium. Abdominal radiographs demonstrate a nonobstructive bowel gas pattern. Gas and stool are seen throughout the colon. There is no small bowel distention. There is no radiographic evidence of pneumoperitoneum. Imaged osseous structures are intact. Soft tissues are unremarkable. IMPRESSION: 1. No acute cardiopulmonary process. 2. Nonobstructive bowel gas pattern without radiographic evidence of pneumoperitoneum. Reported By:
[2019-03-25 19:42] LABS: CREATINE KINASE 196 Units/L (39-308); TROPONIN I < 0.02 ng/mL (0-1.5)
[2019-03-25 19:44] LABS: APPEARANCE,URINE CLEAR (CLEAR); BILIRUBIN,URINE NEGATIVE (NEGATIVE); BLOOD/HEMOGLOBIN,URINE 3+ (NEGATIVE); COLOR,URINE YELLOW (YELLOW); GLUCOSE, URINE 4+ (NEGATIVE); KETONES,URINE 3+ (NEGATIVE); LEUKOCYTE ESTERASE ,URINE NEGATIVE (NEGATIVE); NITRITES,URINE NEGATIVE (NEGATIVE); PROTEIN,URINE 3+ (NEGATIVE); UROBILINOGEN,URINE NORMAL (NORMAL)
[2019-03-25 19:53] LABS: BACTERIA,URINE NEGATIVE /HPF (NEGATIVE); MUCUS,URINE FEW /HPF (NEGATIVE); SQUAMOUS EPITHELIAL CELL,UR NEGATIVE /HPF (NEGATIVE)
[2019-03-25] MEDS ORDERED: PHENERGAN INJ 25 MG IM ONE ×2 (20:54)
[2019-03-25] MEDS: DEMEROL INJ IVP PRN (22:11)
--- NOTE | 2019-03-25 22:13 | CT ---
CT abdomen and pelvis without contrast Indication: Abdominal pain with nausea vomiting Comparison: 01/11/2019 Technique: Multiple axial images of the abdomen and pelvis were obtained from the lung bases to the pubic symphysis without the administration of IV contrast. Coronal and sagittal reformatted images were also provided. Dose reduction techniques including automated exposure control (AEC) and adjustment of mA and kV were utilized. Findings: Overall sensitivity in detection of solid organ injury, mass or inflammatory change along with vascular injury or mesenteric hematoma is severely limited given lack of IV contrast administration. Bilateral subpleural ground-glass opacities suspicious for developing1 infiltrates and/or aspiration.1 given limitations of a noncontrast examination no focal hepatic lesion. Previous cholecystectomy is noted.1 bile ducts normal in caliber. The spleen1, pancreas and adrenal glands are normal. Neither kidney demonstrates evidence of nephrolithiasis, hydronephrosis or mass. Upper GI tract demonstrates a small sliding hiatal hernia. No mass or obstruction. Urinary bladder is normal. Prostate gland is normal. The rectum and colon are unremarkable. Prior appendectomy. Abdominal aorta is normal in caliber. Review of bone windows demonstrates no acute osseous abnormality. Moderate spondylosis at L5-S1. Small fat containing paraumbilical hernia. Impression: 1.No acute inflammatory process within the abdomen or pelvis given limitations of a noncontrast examination. 2. Faint ground-glass opacities within subpleural right and left lower lobes suspicious for developing infiltrates or aspiration. 3.Small sliding hiatal hernia. Reported By:
[2019-03-25] MEDS ORDERED: LEVAQUIN PREMIX IV 750 MG 750 MG/150 ML BAG IV ONE ×2 (22:41→23:18)
[2019-03-25] MEDS ORDERED: PROVENTIL NEB TX 0.083% 2.5MG/ 3ML NEB PRN (23:45)
[2019-03-25] MEDS ORDERED: SALINE 3% 15 ML NEB TX NEB ONE (23:48)
[2019-03-26] MEDS: HumuLIN R SC PRN ×5 (00:24→21:14)
[2019-03-26] MEDS: ZOFRAN INJ 4 MG VIAL IVP PRN (00:50)
[2019-03-26 02:00] VITALS: BMI 24.9
[2019-03-26] MEDS ORDERED: PROVENTIL NEB TX 0.083% 2.5MG/ 3ML NEB PRN (02:06)
[2019-03-26] MEDS: NS 1000 ML 1,000 ML IV SCH ×4 (02:08→17:01)
[2019-03-26] MEDS ORDERED: FORTAZ or TAZICEF VIAL INJ ONE (02:12)
[2019-03-26] MEDS ORDERED: NS 100 ML IV + SPIKE MINIBAG* 100 ML IV ONE (02:12)
[2019-03-26] MEDS: DEMEROL INJ IVP PRN ×3 (02:55→18:17)
[2019-03-26] MEDS: FORTAZ or TAZICEF VIAL INJ 1 G in NS 100 ML IV + SPIKE MINIBAG* 100 ML IV SCH ×4 (03:22→21:06)
[2019-03-26 06:19] LABS: BASOPHILS % (AUTO) 0.1 % (0.2-1.0); HEMATOCRIT 37.6 % (42.0-54.0); HEMOGLOBIN 12.4 g/dL (13.5-18.0); LYMPHOCYTES # (AUTO) 0.6 X10^3/uL (1.3-2.9); LYMPHOCYTES % (AUTO) 6.3 % (21.0-51.0); MEAN CORPUSCULAR HEMOGLOBIN 24.7 pg (27.0-34.0); MEAN CORPUSCULAR HGB CONC 32.9 g/dL (33.0-35.0); MEAN CORPUSCULAR VOLUME 75.1 fL (80.0-100.0); MEAN PLATELET VOLUME 8.2 fL (7.4-11.0); MONOCYTES # (AUTO) 0.5 x10^3/uL (0.3-0.8); MONOCYTES % (AUTO) 5.5 % (0.0-13.0); NEUTROPHILS # (AUTO) 8.6 x10^3/uL (2.2-4.8); NEUTROPHILS % (AUTO) 88.1 % (42.0-75.0); PLATELET COUNT 280 X10^3/uL (150.0-450.0); RED BLOOD COUNT 5.01 X10^6/uL (4.7-6.0); RED CELL DISTRIBUTION WIDTH 20.9 % (11.6-16.5); WHITE BLOOD COUNT 9.8 X10^3/uL (3.6-10.0)
[2019-03-26 06:40] LABS: ANISOCYTOSIS SLIGHT; PLATELET MORPHOLOGY COMMENT NORMAL (NORMAL)
[2019-03-26 06:58] LABS: ALANINE AMINOTRANSFERASE 29 Units/L (12-78); ALBUMIN 3.6 g/dL (3.4-5.0); ALKALINE PHOSPHATASE 188 Units/L (46-116); ASPARTATE AMINO TRANSFERASE 28 Units/L (15-37); BLOOD UREA NITROGEN 22 mg/dL (7-18); CALCIUM 9.4 mg/dL (8.5-10.1); CARBON DIOXIDE 25.9 mmol/L (21-32); CHLORIDE 101 mmol/L (98-107); COR NA(FOR HYPERGLY) 149 mmol/L (136-145); CREATINE KINASE 729 Units/L (39-308); CREATININE 1.27 mg/dL (0.70-1.30); SODIUM 141 mmol/L (136-145); TOTAL PROTEIN 8.8 g/dL (6.4-8.2); TROPONIN I < 0.02 ng/mL (0-1.5); eGFR NON BLACK RACES > 60 (>60)
[2019-03-26] MEDS ORDERED: MAALOX or MYLANTA ONE (06:59)
[2019-03-26 07:02] LABS: CKMB % 1.1 % (<4); CREATINE KINASE MB 7.8 ng/mL (0-4.0)
[2019-03-26] MEDS: MAALOX or MYLANTA PO PRN ×2 (07:04→15:21)
--- NOTE | 2019-03-26 10:35 | RAD ---
HISTORY: Shortness of breath Study: Chest AP portable Comparison: 01/19/2019 Findings: There is a port present on the left. The heart is within normal limits in size. The jennifer are normal. The lungs are well inflated and free of acute alveolar infiltrates. No pleural effusions are identified. The bony thorax is unremarkable. IMPRESSION: No significant abnormality identified Reported By:
[2019-03-26 11:46] LABS: CREATINE KINASE 713 Units/L (39-308); TROPONIN I < 0.02 ng/mL (0-1.5)
[2019-03-26 11:48] LABS: CREATINE KINASE MB 6.8 ng/mL (0-4.0)
[2019-03-26] MEDS ORDERED: NORCO 10/325 TAB PO PRN (20:39)
[2019-03-26] MEDS ORDERED: LEVSIN SYRUP PO PRN ×2 (20:39→22:00)
[2019-03-26] MEDS ORDERED: PHENERGAN TAB 25 MG PO PRN (20:39)
[2019-03-26] MEDS ORDERED: CATAPRES-TTS-3 TD SCH (21:00)
[2019-03-26] MEDS: REMERON PO SCH (21:30)
[2019-03-26] MEDS: CARAFATE PO SCH (21:30)
[2019-03-26] MEDS: PEPCID TAB 20 MG PO SCH (21:30)
[2019-03-26] MEDS: RESTORIL CAP 30 MG PO SCH (21:31)
--- NOTE | 2019-03-26 22:51 | DR.H&P ---
H&P - History & Physical for Day of: H&P Date: 03/26/19 - Chief Complaint Chief Complaint: ABDOMINAL PAIN, NAUSEA, VOMITING, SOB - History of Present Illness History of Present Illness: IS A 48 YEAR OLD PATIENT OF OURS WHO PRESENTED TO THE ER WITH COMPLAINTS OF NAUSEA, VOMITING, ABDOMINAL PAIN, AND SHORTNESS OF BREATH THAT STARTED SEVERAL HOURS PRIOR TO ARRIVAL. HE REPORTS THAT PAIN RADIATES TO THE BACK. HE HAS A HISTORY OF DIABETIC GASTROPARESIS. HE IS GENERALLY NON-COMPLIANT WITH A DIABETIC DIET. HE DENIES FEVER, C/C/C, DYSURIA, OR HEMATURIA. PAIN IS RATED 10/10. ON ARRIVAL, VITALS WERE 98.6-140-16-99%-126/101. LABS WERE OBTAINED. ABNORMAL LAB VALUES INCLUDE THE FOLLOWING: WBC 17.3, HGB 12.3, HCT 3.7.6, GLUCOSE 417, ALK PHOS 210, TOTAL PROTEIN 9.6, GLOBUOIN 5.4, ACTONES NEGATIVE. AN ABDOMEN XRAY WAS OBTAINED AND REVEALED: No acute cardiopulmonary process. Nonobstructive bowel gas pattern without radiographic evidence of pneumoperitoneum. AN ABDOMEN/PELVIS CT WITHOUT CONTRAST WAS OBTAINED AND REVEALED: No acute inflammatory process within the abdomen or pelvis given limitations of a noncontrast examination. Faint ground- glass opacities within subpleural right and left lower lobes suspicious for developing infiltrates or aspiration. Small sliding hiatal hernia. HE WAS GIVEN A DEMEROL 50MG IV X 1, PHENERGAN 25MG IM X 1, ZOFRAN 4MG IV X 1 IN THE ER. HE WAS ADMITTED FOR FURTHER EVALUATION AND TREATMENT OF PNEUMONIA, INTRACTABLE NAUSEA AND VOMITING, ABDOMINAL PAIN, HYPERGLYCEMIA, AND DIABETIC GASTROPARESIS. HE WAS STARTED ON NORMAL SALINE AT 125ML/HR, IV FORTAZ, IV LEVAQUIN, RESPIRATOYR TREATMENTS, ZOFRAN COCKTAIL, HUMULIN R SLIDING SCALE, AND HOME MEDICATIONS WERE RESUMED. WE PLAN TO FOLLOW-UP WITH AM LABS AND CHEST XRAY AND CONTINUE TO MONITOR. - Past Medical History Past Medical History: Hypertension, Diabetes, PUD Additional Medical History: Diabetic Neuropathy, Diabetic Gastroparesis, Hiatal Hernia, Gastric Ulcer, Gall Bladder Disease, Back Pain - Past Surgical History Surgical History: Cholecystectomy, Ortho Surgery, Other Additional Surgical History: Right foot I&D - Family History Family Medical History: Diabetes Mellitus - Social History Does patient currently use any type of tobacco product: No Have you used tobacco products in the last 12 months: No Type of Tobacco Use: None Does any household member use tobacco: No Alcohol Use: None Drug Use: Prescription Drugs - Medications Home Medications: codeine Allergy (Verified 03/25/19 17:15) morphine Allergy (Verified 03/25/19 17:15) - Review of Systems Constitutional: Weakness Eyes: No Symptoms Reported ENT: No Symptoms Reported Respiratory: Shortness of Breath Cardiovascular: No Symptoms Reported Gastrointestinal: See HPI, Nausea, Vomiting, Abdominal Pain Genitourinary: No Symptoms Reported Musculoskeletal: No Symptoms Reported Skin: No Symptoms Reported Neurological: Weakness - Physical Exam Vital Signs: Temperature 97 F Pulse Rate [Apical] 88 Pulse Rate 91 Respiratory Rate 20 Blood Pressure [Right Arm] 183/83 Blood Pressure [Left Arm] 164/92 Blood Pressure 173/96 O2 Sat by Pulse Oximetry 98 Oriented: Normal Eyes: Normal Ear: Normal Nose: Normal Throat: Normal Respiratory: Diminished Throughout Cardiovascular: Tachycardia : Normal Auscultation: Bowel Sounds: Normal Palpation: Normal Tenderness: Normal Skin: Normal Musculoskeletal: Normal Psychiatric: Normal Mood Description: Calm Affect: Normal Speech Pattern: Clear - Assessment/Plan (1) Pneumonia Qualifiers: Pneumonia type: due to unspecified organism Laterality: bilateral Status: Acute Plan: ADMIT, PNEUMONIA PROTOCOL, IV LEVAQUIN, IV FORTAZ, NORMAL SALINE, RESPIRATORY TX, SUPPLEMENTAL OXYGEN, CONTINUE TO MONITOR (2) Diabetic gastroparesis Status: Acute (3) Abdominal pain Qualifiers: Abdominal location: generalized Qualified Code(s): R10.84 - Generalized abdominal pain Status: Acute (4) Nausea & vomiting Status: Acute (5) Acute hyperglycemia Status: Acute Plan: HUMULIN R SLIDING SCALE, MONITOR OTBS, CONTINUE TO MONITOR - Allergies Allergies/Adverse Reactions: Allergies Allergy/AdvReac Type Severity Reaction Status Date / Time codeine Allergy Verified 03/25/19 17:15 morphine Allergy Verified 03/25/19 17:15
[2019-03-26] MEDS: LEVAQUIN PREMIX IV 750 MG 750 MG/150 ML BAG IV SCH (23:03)
[2019-03-27] MEDS: NS 1000 ML 1,000 ML IV SCH ×4 (03:15→18:48)
[2019-03-27 05:03] LABS: BASOPHILS % (AUTO) 0.6 % (0.2-1.0); EOSINOPHILS % (AUTO) 0.5 % (0.9-2.9); HEMATOCRIT 30.8 % (42.0-54.0); HEMOGLOBIN 10.1 g/dL (13.5-18.0); LYMPHOCYTES # (AUTO) 1.4 X10^3/uL (1.3-2.9); LYMPHOCYTES % (AUTO) 18.3 % (21.0-51.0); MEAN CORPUSCULAR HEMOGLOBIN 24.7 pg (27.0-34.0); MEAN CORPUSCULAR HGB CONC 32.9 g/dL (33.0-35.0); MEAN CORPUSCULAR VOLUME 75.2 fL (80.0-100.0); MEAN PLATELET VOLUME 8.6 fL (7.4-11.0); MONOCYTES # (AUTO) 0.8 x10^3/uL (0.3-0.8); MONOCYTES % (AUTO) 10.4 % (0.0-13.0); NEUTROPHILS # (AUTO) 5.3 x10^3/uL (2.2-4.8); NEUTROPHILS % (AUTO) 70.2 % (42.0-75.0); PLATELET COUNT 209 X10^3/uL (150.0-450.0); RED CELL DISTRIBUTION WIDTH 20.7 % (11.6-16.5); WHITE BLOOD COUNT 7.6 X10^3/uL (3.6-10.0)
[2019-03-27 05:16] LABS: ALANINE AMINOTRANSFERASE 24 Units/L (12-78); ALBUMIN 2.8 g/dL (3.4-5.0); ALKALINE PHOSPHATASE 131 Units/L (46-116); ASPARTATE AMINO TRANSFERASE 26 Units/L (15-37); BLOOD UREA NITROGEN 20 mg/dL (7-18); CALCIUM 7.8 mg/dL (8.5-10.1); CARBON DIOXIDE 27.4 mmol/L (21-32); CHLORIDE 107 mmol/L (98-107); COR CA(FOR HYPOALB) 8.8 mg/dL (8.5-10.1); CREATININE 0.95 mg/dL (0.70-1.30); SODIUM 143 mmol/L (136-145); TOTAL PROTEIN 6.8 g/dL (6.4-8.2); eGFR NON BLACK RACES > 60 (>60)
[2019-03-27 05:30] LABS: ANISOCYTOSIS 1+; PLATELET MORPHOLOGY COMMENT NORMAL (NORMAL)
--- NOTE | 2019-03-27 05:45 | RAD ---
Examination: AP chest History: SOB Comparison 03/26/2019 Findings: Continued normal heart size with clear lungs and pleural spaces. Stable position of left IJ injection port. Impression: No change; no acute findings. Reported By:
[2019-03-27] MEDS: FORTAZ or TAZICEF VIAL INJ 1 G in NS 100 ML IV + SPIKE MINIBAG* 100 ML IV SCH ×3 (05:52→21:13)
[2019-03-27] MEDS: CARAFATE PO SCH ×4 (05:52→21:08)
[2019-03-27] MEDS ORDERED: POTASSIUM CHL 60 MEQ/NS 0.45% 500 ML IV PRN (05:58)
[2019-03-27] MEDS ORDERED: MICRO K EXTEN CAP 10 MEQ PO PRN (05:58)
[2019-03-27] MEDS ORDERED: K-RIDER 10 MEQ/NS 100 ML 10 MEQ/100 ML BAG IV PRN (05:58)
[2019-03-27] MEDS ORDERED: POTASSIUM CHL 40 MEQ/NS 0.45% 500 ML IV PRN (05:58)
[2019-03-27] MEDS ORDERED: POTASSIUM CHLORIDE LIQ 20 MEQ UDC PO PRN (05:58)
[2019-03-27] MEDS ORDERED: K-DUR TAB 20 MEQ PO PRN (05:58)
[2019-03-27] MEDS ORDERED: KLOR-CON PO PRN (05:58)
[2019-03-27] MEDS: K-DUR TAB 20 MEQ PO SCH (08:31)
[2019-03-27] MEDS: COZAAR PO SCH (08:31)
[2019-03-27] MEDS: NORVASC TAB 5 MG PO SCH (08:31)
[2019-03-27] MEDS: PEPCID TAB 20 MG PO SCH ×2 (08:32→21:08)
[2019-03-27] MEDS: LEVAQUIN PREMIX IV 750 MG 750 MG/150 ML BAG IV SCH (08:32)
[2019-03-27] MEDS: HumuLIN R SC PRN ×3 (12:05→21:14)
[2019-03-27] MEDS: DEMEROL INJ IVP PRN ×2 (13:44→17:45)
[2019-03-27] MEDS: ZOFRAN INJ 4 MG VIAL IVP PRN ×2 (13:45→20:04)
[2019-03-27] MEDS: SNACK - Diabetic Appropriate PO SCH (20:35)
[2019-03-27] MEDS: REMERON PO SCH (21:08)
[2019-03-27] MEDS: RESTORIL CAP 30 MG PO SCH (21:08)
[2019-03-28] MEDS: MAALOX or MYLANTA PO PRN (00:15)
[2019-03-28] MEDS: DEMEROL INJ IVP PRN ×3 (00:21→21:02)
[2019-03-28] MEDS: NS 1000 ML 1,000 ML IV SCH ×3 (02:45→20:53)
[2019-03-28 05:20] LABS: BASOPHILS % (AUTO) 0.5 % (0.2-1.0); EOSINOPHILS % (AUTO) 0.1 % (0.9-2.9); HEMATOCRIT 32.3 % (42.0-54.0); HEMOGLOBIN 10.5 g/dL (13.5-18.0); LYMPHOCYTES # (AUTO) 1.5 X10^3/uL (1.3-2.9); LYMPHOCYTES % (AUTO) 17.8 % (21.0-51.0); MEAN CORPUSCULAR HEMOGLOBIN 24.5 pg (27.0-34.0); MEAN CORPUSCULAR HGB CONC 32.5 g/dL (33.0-35.0); MEAN CORPUSCULAR VOLUME 75.4 fL (80.0-100.0); MEAN PLATELET VOLUME 8.7 fL (7.4-11.0); MONOCYTES # (AUTO) 0.9 x10^3/uL (0.3-0.8); NEUTROPHILS % (AUTO) 70.6 % (42.0-75.0); PLATELET COUNT 221 X10^3/uL (150.0-450.0); RED BLOOD COUNT 4.28 X10^6/uL (4.7-6.0); RED CELL DISTRIBUTION WIDTH 20.1 % (11.6-16.5); WHITE BLOOD COUNT 8.5 X10^3/uL (3.6-10.0)
[2019-03-28 05:30] LABS: ALANINE AMINOTRANSFERASE 20 Units/L (12-78); ALBUMIN 2.8 g/dL (3.4-5.0); ALKALINE PHOSPHATASE 131 Units/L (46-116); ASPARTATE AMINO TRANSFERASE 21 Units/L (15-37); BLOOD UREA NITROGEN 14 mg/dL (7-18); CALCIUM 7.7 mg/dL (8.5-10.1); CARBON DIOXIDE 26.5 mmol/L (21-32); CHLORIDE 104 mmol/L (98-107); COR CA(FOR HYPOALB) 8.7 mg/dL (8.5-10.1); COR NA(FOR HYPERGLY) 139 mmol/L (136-145); CREATININE 1.03 mg/dL (0.70-1.30); SODIUM 138 mmol/L (136-145); TOTAL PROTEIN 6.9 g/dL (6.4-8.2); eGFR NON BLACK RACES > 60 (>60)
[2019-03-28] MEDS: CARAFATE PO SCH ×4 (05:30→20:54)
[2019-03-28] MEDS: FORTAZ or TAZICEF VIAL INJ 1 G in NS 100 ML IV + SPIKE MINIBAG* 100 ML IV SCH ×3 (05:30→21:03)
--- NOTE | 2019-03-28 06:42 | RAD ---
HISTORY: Shortness of breath Study: Chest AP portable Comparison: 03/27/2019 Findings: There is a port present on the left. The heart is within normal limits in size. No congestive heart failure is noted. The jennifer are normal. The lung [place] are clear. The bony thorax is unremarkable. IMPRESSION: Lungs clear Reported By:
--- NOTE | 2019-03-28 06:43 | RAD ---
HISTORY: Fecal retention Study: KUB Comparison: 03/25/2019 Findings: The abdominal gas pattern is nonspecific and nonobstructive. No abnormal masses or abnormal calcifications are identified. The regional skeleton is intact. A large amount of stool is not identified. IMPRESSION: Unremarkable KUB Reported By:
[2019-03-28] MEDS: LEVAQUIN PREMIX IV 750 MG 750 MG/150 ML BAG IV SCH (09:35)
[2019-03-28] MEDS: PEPCID TAB 20 MG PO SCH ×2 (09:35→20:54)
[2019-03-28] MEDS: GLUCOTROL PO SCH (09:35)
[2019-03-28] MEDS: K-DUR TAB 20 MEQ PO SCH (09:36)
[2019-03-28] MEDS: NORVASC TAB 5 MG PO SCH (09:36)
[2019-03-28] MEDS: LINZESS PO SCH (09:36)
[2019-03-28] MEDS: COZAAR PO SCH (09:36)
[2019-03-28] MEDS: HumuLIN R SC PRN (12:30)
[2019-03-28] MEDS: RESTORIL CAP 30 MG PO SCH (20:54)
[2019-03-28] MEDS: REMERON PO SCH (20:54)
[2019-03-28] MEDS: SNACK - Diabetic Appropriate PO SCH (20:55)
[2019-03-29] MEDS: DEMEROL INJ IVP PRN ×3 (04:15→21:03)
[2019-03-29] MEDS: NS 1000 ML 1,000 ML IV SCH ×5 (04:15→18:06)
[2019-03-29 05:04] LABS: BASOPHILS % (AUTO) 0.5 % (0.2-1.0); EOSINOPHILS % (AUTO) 0.6 % (0.9-2.9); HEMATOCRIT 33.8 % (42.0-54.0); HEMOGLOBIN 10.9 g/dL (13.5-18.0); LYMPHOCYTES % (AUTO) 33.9 % (21.0-51.0); MEAN CORPUSCULAR HEMOGLOBIN 24.6 pg (27.0-34.0); MEAN CORPUSCULAR HGB CONC 32.3 g/dL (33.0-35.0); MEAN CORPUSCULAR VOLUME 76.1 fL (80.0-100.0); MEAN PLATELET VOLUME 8.5 fL (7.4-11.0); MONOCYTES # (AUTO) 0.5 x10^3/uL (0.3-0.8); MONOCYTES % (AUTO) 8.7 % (0.0-13.0); NEUTROPHILS # (AUTO) 3.3 x10^3/uL (2.2-4.8); NEUTROPHILS % (AUTO) 56.3 % (42.0-75.0); PLATELET COUNT 217 X10^3/uL (150.0-450.0); RED BLOOD COUNT 4.44 X10^6/uL (4.7-6.0); RED CELL DISTRIBUTION WIDTH 20.6 % (11.6-16.5); WHITE BLOOD COUNT 5.9 X10^3/uL (3.6-10.0)
[2019-03-29 05:16] LABS: ALANINE AMINOTRANSFERASE 21 Units/L (12-78); ALBUMIN 2.9 g/dL (3.4-5.0); ALKALINE PHOSPHATASE 143 Units/L (46-116); ASPARTATE AMINO TRANSFERASE 17 Units/L (15-37); BLOOD UREA NITROGEN 13 mg/dL (7-18); CARBON DIOXIDE 25.3 mmol/L (21-32); CHLORIDE 104 mmol/L (98-107); COR CA(FOR HYPOALB) 8.9 mg/dL (8.5-10.1); COR NA(FOR HYPERGLY) 144 mmol/L (136-145); CREATININE 1.11 mg/dL (0.70-1.30); SODIUM 139 mmol/L (136-145); eGFR NON BLACK RACES > 60 (>60)
[2019-03-29] MEDS: FORTAZ or TAZICEF VIAL INJ 1 G in NS 100 ML IV + SPIKE MINIBAG* 100 ML IV SCH ×3 (05:27→21:44)
[2019-03-29] MEDS: HumuLIN R SC PRN ×2 (05:30→12:00)
[2019-03-29] MEDS: CARAFATE PO SCH ×4 (05:30→20:52)
--- NOTE | 2019-03-29 07:49 | RAD ---
Chest, 1 view Indication: Shortness of breath Comparison: 03/28/2019 Findings: Cardiac silhouette and left jugular approach Port-A-Cath are unchanged. The lungs are clear without focal infiltrates or pleural effusion. No pneumothorax. Impression: Stable exam. Reported By:
[2019-03-29] MEDS: PEPCID TAB 20 MG PO SCH ×2 (08:59→20:51)
[2019-03-29] MEDS: COZAAR PO SCH (09:00)
[2019-03-29] MEDS: GLUCOTROL PO SCH (09:00)
[2019-03-29] MEDS: LEVAQUIN PREMIX IV 750 MG 750 MG/150 ML BAG IV SCH (09:00)
[2019-03-29] MEDS: NORVASC TAB 5 MG PO SCH (09:00)
[2019-03-29] MEDS: LINZESS PO SCH (09:00)
[2019-03-29] MEDS: K-DUR TAB 20 MEQ PO SCH (09:00)
--- NOTE | 2019-03-29 11:19 | PCM.PROG ---
Progress Note - Progress Note for Day of Date of Exam: 03/27/19 - Subjective Subjective: WAS ADMITTED FOR TREATMENT OF PNEUMONIA, INTRACTABLE NAUSEA AND VOMITING, ABDOMINAL PAIN, HYPERGLYCEMIA, AND DIABETIC GASTROPARESIS. TODAY, HE IS ALERT AND ORIENTED, LYING IN BED ON MORNING ROUNDS. HE CONTINUES WITH COMPLAINTS OF SHORTNESS OF BREATH, ABDOMINAL PAIN, AND NAUSEA. ON EXAMINATION, HEART IS REGULAR IN RATE AND RHYTHM. BIALTERAL LUNGS ARE NOTED WITH DIMINISHED LUNG SOUNDS THROUGHOUT. ABDOMEN IS ROUND, SOFT, AND NON-TEDNER WITH NORMAL BOWEL SOUNDS NOTED IN ALL QUADRANTS. HIS VITALS THIS MORNING ARE: 99.1-101-13-98%-140/80. LABS WERE OBTAINED. ABNORMAL LAB VALUES INCLUDE THE FOLLOWING: RBC 4.10, HGB 10.1, HCT 30.8, POTASSIUM 3.3, BUN 20, GLUCOSE 63, CALCIUM 7.8, ALK PHOS 131, ALBUMIN 2.8. BLOOD CULTURES ARE PENDING. A CHEST XRAY WAS OBTAINED AND REVEALED: NO CHANGE, NO ACUTE FINDINGS. HE IS CURRENTLY RECEIVING 125ML/HR, IV FORTAZ, IV LEVAQUIN, RESPIRATOYR TREATMENTS, ZOFRAN COCKTAIL, HUMULIN R SLIDING SCALE, AND HOME MEDICATIONS WERE RESUMED. WE WILL CONTINUE WITH CURRENT PLAN OF CARE TODAY AND START THE POTASSIUM PROTOCOL. OTHERWISE, WE WILL FOLLOW UP WITH AM LABS AND CHEST XRAY AND CONTINUE TO MONITOR. - Past Medical Family Social History Past Med/Fam/Surg Hx: No changes since H&P Allergies: Allergies codeine Allergy (Verified 03/25/19 17:15) morphine Allergy (Verified 03/25/19 17:15) - Review of Systems ROS: No change since H&P - Vital Signs and I&O's Vital Signs: Temperature 98.4 F Pulse Rate [Apical] 91 Pulse Rate 85 Respiratory Rate 18 Blood Pressure [Right Arm] 183/83 Blood Pressure [Left Arm] 155/84 Blood Pressure 173/96 O2 Sat by Pulse Oximetry 97 Intake and Output: Intake & Output 03/26/19 03/27/19 03/28/19 03/29/19 11:59 11:59 11:59 11:59 Intake Total 3846 / 3846 3972 / 3972 2630 / 2630 Output Total 150 / 150 1950 / 1950 3475 / 3475 Balance -150 / -150 1896 / 1896 497 / 497 2630 / 2630 - Physical Exam Oriented: Normal Eyes: Normal Ear: Normal Nose: Normal Throat: Normal Respiratory: Generalized, Diminished Cardiovascular: Normal : Normal Auscultation: Bowel Sounds: Normal Palpation: Normal Tenderness: Diffuse, Mild. negative: Rebound, Guarding, Rigidity Skin: Normal Musculoskeletal: Normal Psychiatric: Normal Mood Description: Calm Affect: Normal Speech Pattern: Clear, Appropriate - Laboratory and Diagnostics Result Diagrams: 03/29/19 04:34 03/29/19 04:34 Labs: 03/25/19 23:08 Blood Blood Culture - Preliminary 03/25/19 23:00 Blood Blood Culture - Preliminary Laboratory WBC 5.9 X10^3/uL (3.6-10.0) 03/29/19 04:34 RBC 4.44 X10^6/uL (4.7-6.0) L 03/29/19 04:34 Hgb 10.9 g/dL (13.5-18.0) L 03/29/19 04:34 Hct 33.8 % (42.0-54.0) L 03/29/19 04:34 MCV 76.1 fL (80.0-100.0) L 03/29/19 04:34 MCH 24.6 pg (27.0-34.0) L 03/29/19 04:34 MCHC 32.3 g/dL (33.0-35.0) L 03/29/19 04:34 RDW 20.6 % (11.6-16.5) H 03/29/19 04:34 Plt Count 217 X10^3/uL (150.0-450.0) 03/29/19 04:34 Plt Count Comment Adequate (ADEQUATE) 03/27/19 04:14 MPV 8.5 fL (7.4-11.0) 03/29/19 04:34 Neut % (Auto) 56.3 % (42.0-75.0) 03/29/19 04:34 Lymph % (Auto) 33.9 % (21.0-51.0) 03/29/19 04:34 [place] % (Auto) 8.7 % (0.0-13.0) 03/29/19 04:34 Eos % (Auto) 0.6 % (0.9-2.9) L 03/29/19 04:34 Baso % (Auto) 0.5 % (0.2-1.0) 03/29/19 04:34 Neut # (Auto) 3.3 x10^3/uL (2.2-4.8) 03/29/19 04:34 Lymph # (Auto) 2.0 X10^3/uL (1.3-2.9) 03/29/19 04:34 [place] # (Auto) 0.5 x10^3/uL (0.3-0.8) 03/29/19 04:34 Eos # (Auto) 0.0 x10^3/uL (0.0-0.2) 03/29/19 04:34 Baso # (Auto) 0.0 X10^3/uL (0.0-0.1) 03/29/19 04:34 Absolute Nucleated RBC 0.1 /100WBC 03/29/19 04:34 Total Counted 100 03/25/19 17:31 Neutrophils % (Manual) 90 % (39-76) H 03/25/19 17:31 Lymphocytes % (Manual) 8 % (13-43) L 03/25/19 17:31 Monocytes % (Manual) 2 % (4-9) L 03/25/19 17:31 Plt Morphology Comment Normal (NORMAL) 03/27/19 04:14 RBC Morphology Abnormal (NORMAL) 03/27/19 04:14 Hypochromasia Slight A 03/25/19 17:31 Anisocytosis 1+ A 03/27/19 04:14 Microcytosis Slight A 03/25/19 17:31 Sodium 139 mmol/L (136-145) 03/29/19 04:34 Corrected Sodium 144 mmol/L (136-145) 03/29/19 04:34 Potassium 4.1 mmol/L (3.5-5.1) 03/29/19 04:34 Chloride 104 mmol/L (98-107) 03/29/19 04:34 Carbon Dioxide 25.3 mmol/L (21-32) 03/29/19 04:34 BUN 13 mg/dL (7-18) 03/29/19 04:34 Creatinine 1.11 mg/dL (0.70-1.30) 03/29/19 04:34 Est GFR (MDRD) Af Amer > 60 (>60) 03/29/19 04:34 Est GFR (MDRD) Non-Af > 60 (>60) 03/29/19 04:34 Glucose 304 mg/dL (65-99) H 03/29/19 04:34 POC Glucose (mg/dL) 272 mg/dL (65-99) H 03/29/19 05:05 Lactic Acid 3.1 mmol/L (0.4-2.0) H 03/25/19 20:55 Calcium 8.0 mg/dL (8.5-10.1) L 03/29/19 04:34 Corrected Calcium 8.9 mg/dL (8.5-10.1) 03/29/19 04:34 Magnesium 2.3 mg/dL (1.7-2.9) 03/27/19 04:14 Total Bilirubin 0.20 mg/dL (0.2-1.0) 03/29/19 04:34 AST 17 Units/L (15-37) 03/29/19 04:34 ALT 21 Units/L (12-78) 03/29/19 04:34 Alkaline Phosphatase 143 Units/L (46-116) H 03/29/19 04:34 Creatine Kinase 713 Units/L (39-308) H 03/26/19 10:55 CK-MB (CK-2) 6.8 ng/mL (0-4.0) H* 03/26/19 10:55 CK/CKMB % Calc 1.0 % (<4) 03/26/19 10:55 Troponin I < 0.02 ng/mL (0-1.5) 03/26/19 10:55 Total Protein 7.0 g/dL (6.4-8.2) 03/29/19 04:34 Albumin 2.9 g/dL (3.4-5.0) L 03/29/19 04:34 Globulin 4.1 g/dL (2.5-4.5) 03/29/19 04:34 Albumin/Globulin Ratio 0.7 Ratio (1.1-2.1) L 03/29/19 04:34 Amylase 72 Units/L (25-115) 03/25/19 17:31 Lipase 107 Units/L (73-393) 03/25/19 17:31 Specimen Type Random urine 03/25/19 19:34 Urine Color Yellow (YELLOW) 03/25/19 19:34 Urine Appearance Clear (CLEAR) 03/25/19 19:34 Urine pH 6.0 (5.0 - 8.0) 03/25/19 19:34 Ur Specific [place] 1.010 (1.000-1.030) 03/25/19 19:34 Urine Protein 3+ (NEGATIVE) 03/25/19 19:34 Urine Glucose (UA) 4+ (NEGATIVE) 03/25/19 19:34 Urine Ketones 3+ (NEGATIVE) 03/25/19 19:34 Urine Occult Blood 3+ (NEGATIVE) 03/25/19 19:34 Urine Nitrite Negative (NEGATIVE) 03/25/19 19:34 Urine Bilirubin Negative (NEGATIVE) 03/25/19 19:34 Urine Urobilinogen Normal (NORMAL) 03/25/19 19:34 Ur Leukocyte Esterase Negative (NEGATIVE) 03/25/19 19:34 Urine RBC 5-10 /HPF (0-3) A 03/25/19 19:34 Urine WBC None seen /HPF (0-5) 03/25/19 19:34 Ur Squamous Epith Cells Negative /HPF (NEGATIVE) 03/25/19 19:34 Urine Bacteria Negative /HPF (NEGATIVE) 03/25/19 19:34 Urine Mucus Few /HPF (NEGATIVE) 03/25/19 19:34 Ur Culture Indicated? No/not indicated 03/25/19 19:34 Urine Opiates Screen Negative (NEG=<300) 03/25/19 19:35 Urine Methadone Screen Negative (NEG=<300) 03/25/19 19:35 Ur Barbiturates Screen Negative (NEG=<200) 03/25/19 19:35 Ur Phencyclidine Scrn Negative (NEG=<25) 03/25/19 19:35 Ur Amphetamines Screen Negative (NEG=<1000) 03/25/19 19:35 U Benzodiazepines Scrn Negative (NEG=<200) 03/25/19 19:35 Urine Cocaine Screen Negative (NEG=<300) 03/25/19 19:35 U Marijuana (THC) Screen Negative (NEG=<50) 03/25/19 19:35 Acetone, Semi-Quant Negative (NEGATIVE) 03/26/19 05:20 - Plan (1) Pneumonia Status: Acute Qualifiers: Pneumonia type: due to unspecified organism Laterality: bilateral Plan: PNEUMONIA PROTOCOL, IV LEVAQUIN, IV FORTAZ, NORMAL SALINE, RESPIRATORY TX, SUPPLEMENTAL OXYGEN, CONTINUE TO MONITOR (2) Diabetic gastroparesis Status: Acute (3) Nausea & vomiting Status: Acute (4) Abdominal pain Status: Acute (5) Acute hyperglycemia Status: Acute Plan: HUMULIN R SLIDING SCALE, MONITOR OTBS, CONTINUE TO MONITOR
[2019-03-29] MEDS: LOVENOX INJ 40 MG SYR SC SCH (14:19)
--- NOTE | 2019-03-29 20:38 | PCM.PROG ---
Progress Note - Progress Note for Day of Date of Exam: 03/28/19 - Subjective Subjective: WAS ADMITTED FOR TREATMENT OF PNEUMONIA, INTRACTABLE NAUSEA AND VOMITING, ABDOMINAL PAIN, HYPERGLYCEMIA, AND DIABETIC GASTROPARESIS. TODAY, HE IS ALERT AND ORIENTED, LYING IN BED ON MORNING ROUNDS. HE CONTINUES WITH COMPLAINTS OF SHORTNESS OF BREATH, ABDOMINAL PAIN, AND NAUSEA. ON EXAMINATION, HEART IS REGULAR IN RATE AND RHYTHM. BIALTERAL LUNGS ARE NOTED WITH DIMINISHED LUNG SOUNDS THROUGHOUT. ABDOMEN IS ROUND, SOFT, AND NON-TEDNER WITH NORMAL BOWEL SOUNDS NOTED IN ALL QUADRANTS. HIS VITALS THIS MORNING ARE: 98.3-91-17-99%-110/70. LABS WERE OBTAINED. ABNORMAL LAB VALUES INCLUDE THE FOLLOWING: RBC 4.28, HGB 10.5, HCT 32.3, GLUCOSE 162, CALCIUM 7.7, ALK PHOS 131, ALBUMIN 2.8. BLOOD CULTURES ARE PENDING. A CHEST XRAY WAS OBTAINED AND REVEALED: LUNGS CLEAR. A KUB WAS OBTAINED AND REVEALED: UNREMARKABLE KUB. HE IS CURRENTLY RECEIVING 125ML/HR, IV FORTAZ, IV LEVAQUIN, RESPIRATORY TREATMENTS, ZOFRAN COCKTAIL, HUMULIN R SLIDING SCALE, AND HOME MEDICATIONS WERE RESUMED. WE WILL CONTINUE WITH CURRENT PLAN OF CARE TODAY. OTHERWISE, WE WILL FOLLOW UP WITH AM LABS AND CHEST XRAY AND CONTINUE TO MONITOR. - Past Medical Family Social History Past Med/Fam/Surg Hx: No changes since H&P Allergies: Allergies codeine Allergy (Verified 03/25/19 17:15) morphine Allergy (Verified 03/25/19 17:15) - Review of Systems ROS: No change since H&P - Vital Signs and I&O's Vital Signs: Temperature 98.1 F Pulse Rate [Apical] 109 Pulse Rate 85 Respiratory Rate 20 Blood Pressure [Right Arm] 183/83 Blood Pressure [Left Arm] 157/94 Blood Pressure 173/96 O2 Sat by Pulse Oximetry 100 Intake and Output: Intake & Output 03/27/19 03/28/19 03/29/19 03/30/19 11:59 11:59 11:59 11:59 Intake Total 3846 / 3846 3972 / 3972 2630 / 2630 360 / 360 Output Total 1950 / 1949 3475 / 3475 Balance 1896 / 1896 497 / 497 2630 / 2630 360 / 360 - Physical Exam Oriented: Normal Eyes: Normal Ear: Normal Nose: Normal Throat: Normal Respiratory: Generalized, Diminished Cardiovascular: Normal : Normal Auscultation: Bowel Sounds: Normal Palpation: Normal Tenderness: Diffuse, Mild. negative: Rebound, Guarding, Rigidity Skin: Normal Musculoskeletal: Normal Psychiatric: Normal Mood Description: Calm Affect: Normal Speech Pattern: Clear, Appropriate - Laboratory and Diagnostics Result Diagrams: 03/29/19 04:34 03/29/19 04:34 Labs: 03/25/19 23:08 Blood Blood Culture - Preliminary 03/25/19 23:00 Blood Blood Culture - Preliminary Laboratory WBC 5.9 X10^3/uL (3.6-10.0) 03/29/19 04:34 RBC 4.44 X10^6/uL (4.7-6.0) L 03/29/19 04:34 Hgb 10.9 g/dL (13.5-18.0) L 03/29/19 04:34 Hct 33.8 % (42.0-54.0) L 03/29/19 04:34 MCV 76.1 fL (80.0-100.0) L 03/29/19 04:34 MCH 24.6 pg (27.0-34.0) L 03/29/19 04:34 MCHC 32.3 g/dL (33.0-35.0) L 03/29/19 04:34 RDW 20.6 % (11.6-16.5) H 03/29/19 04:34 Plt Count 217 X10^3/uL (150.0-450.0) 03/29/19 04:34 Plt Count Comment Adequate (ADEQUATE) 03/27/19 04:14 MPV 8.5 fL (7.4-11.0) 03/29/19 04:34 Neut % (Auto) 56.3 % (42.0-75.0) 03/29/19 04:34 Lymph % (Auto) 33.9 % (21.0-51.0) 03/29/19 04:34 [place] % (Auto) 8.7 % (0.0-13.0) 03/29/19 04:34 Eos % (Auto) 0.6 % (0.9-2.9) L 03/29/19 04:34 Baso % (Auto) 0.5 % (0.2-1.0) 03/29/19 04:34 Neut # (Auto) 3.3 x10^3/uL (2.2-4.8) 03/29/19 04:34 Lymph # (Auto) 2.0 X10^3/uL (1.3-2.9) 03/29/19 04:34 [place] # (Auto) 0.5 x10^3/uL (0.3-0.8) 03/29/19 04:34 Eos # (Auto) 0.0 x10^3/uL (0.0-0.2) 03/29/19 04:34 Baso # (Auto) 0.0 X10^3/uL (0.0-0.1) 03/29/19 04:34 Absolute Nucleated RBC 0.1 /100WBC 03/29/19 04:34 Total Counted 100 03/25/19 17:31 Neutrophils % (Manual) 90 % (39-76) H 03/25/19 17:31 Lymphocytes % (Manual) 8 % (13-43) L 03/25/19 17:31 Monocytes % (Manual) 2 % (4-9) L 03/25/19 17:31 Plt Morphology Comment Normal (NORMAL) 03/27/19 04:14 RBC Morphology Abnormal (NORMAL) 03/27/19 04:14 Hypochromasia Slight A 03/25/19 17:31 Anisocytosis 1+ A 03/27/19 04:14 Microcytosis Slight A 03/25/19 17:31 Sodium 139 mmol/L (136-145) 03/29/19 04:34 Corrected Sodium 144 mmol/L (136-145) 03/29/19 04:34 Potassium 4.1 mmol/L (3.5-5.1) 03/29/19 04:34 Chloride 104 mmol/L (98-107) 03/29/19 04:34 Carbon Dioxide 25.3 mmol/L (21-32) 03/29/19 04:34 BUN 13 mg/dL (7-18) 03/29/19 04:34 Creatinine 1.11 mg/dL (0.70-1.30) 03/29/19 04:34 Est GFR (MDRD) Af Amer > 60 (>60) 03/29/19 04:34 Est GFR (MDRD) Non-Af > 60 (>60) 03/29/19 04:34 Glucose 304 mg/dL (65-99) H 03/29/19 04:34 POC Glucose (mg/dL) 190 mg/dL (65-99) H 03/29/19 20:35 Lactic Acid 3.1 mmol/L (0.4-2.0) H 03/25/19 20:55 Calcium 8.0 mg/dL (8.5-10.1) L 03/29/19 04:34 Corrected Calcium 8.9 mg/dL (8.5-10.1) 03/29/19 04:34 Magnesium 2.3 mg/dL (1.7-2.9) 03/27/19 04:14 Total Bilirubin 0.20 mg/dL (0.2-1.0) 03/29/19 04:34 AST 17 Units/L (15-37) 03/29/19 04:34 ALT 21 Units/L (12-78) 03/29/19 04:34 Alkaline Phosphatase 143 Units/L (46-116) H 03/29/19 04:34 Creatine Kinase 713 Units/L (39-308) H 03/26/19 10:55 CK-MB (CK-2) 6.8 ng/mL (0-4.0) H* 03/26/19 10:55 CK/CKMB % Calc 1.0 % (<4) 03/26/19 10:55 Troponin I < 0.02 ng/mL (0-1.5) 03/26/19 10:55 Total Protein 7.0 g/dL (6.4-8.2) 03/29/19 04:34 Albumin 2.9 g/dL (3.4-5.0) L 03/29/19 04:34 Globulin 4.1 g/dL (2.5-4.5) 03/29/19 04:34 Albumin/Globulin Ratio 0.7 Ratio (1.1-2.1) L 03/29/19 04:34 Amylase 72 Units/L (25-115) 03/25/19 17:31 Lipase 107 Units/L (73-393) 03/25/19 17:31 Specimen Type Random urine 03/25/19 19:34 Urine Color Yellow (YELLOW) 03/25/19 19:34 Urine Appearance Clear (CLEAR) 03/25/19 19:34 Urine pH 6.0 (5.0 - 8.0) 03/25/19 19:34 Ur Specific [place] 1.010 (1.000-1.030) 03/25/19 19:34 Urine Protein 3+ (NEGATIVE) 03/25/19 19:34 Urine Glucose (UA) 4+ (NEGATIVE) 03/25/19 19:34 Urine Ketones 3+ (NEGATIVE) 03/25/19 19:34 Urine Occult Blood 3+ (NEGATIVE) 03/25/19 19:34 Urine Nitrite Negative (NEGATIVE) 03/25/19 19:34 Urine Bilirubin Negative (NEGATIVE) 03/25/19 19:34 Urine Urobilinogen Normal (NORMAL) 03/25/19 19:34 Ur Leukocyte Esterase Negative (NEGATIVE) 03/25/19 19:34 Urine RBC 5-10 /HPF (0-3) A 03/25/19 19:34 Urine WBC None seen /HPF (0-5) 03/25/19 19:34 Ur Squamous Epith Cells Negative /HPF (NEGATIVE) 03/25/19 19:34 Urine Bacteria Negative /HPF (NEGATIVE) 03/25/19 19:34 Urine Mucus Few /HPF (NEGATIVE) 03/25/19 19:34 Ur Culture Indicated? No/not indicated 03/25/19 19:34 Urine Opiates Screen Negative (NEG=<300) 03/25/19 19:35 Urine Methadone Screen Negative (NEG=<300) 03/25/19 19:35 Ur Barbiturates Screen Negative (NEG=<200) 03/25/19 19:35 Ur Phencyclidine Scrn Negative (NEG=<25) 03/25/19 19:35 Ur Amphetamines Screen Negative (NEG=<1000) 03/25/19 19:35 U Benzodiazepines Scrn Negative (NEG=<200) 03/25/19 19:35 Urine Cocaine Screen Negative (NEG=<300) 03/25/19 19:35 U Marijuana (THC) Screen Negative (NEG=<50) 03/25/19 19:35 Acetone, Semi-Quant Negative (NEGATIVE) 03/26/19 05:20 - Plan (1) Pneumonia Status: Acute Qualifiers: Pneumonia type: due to unspecified organism Laterality: bilateral Plan: PNEUMONIA PROTOCOL, IV LEVAQUIN, IV FORTAZ, NORMAL SALINE, RESPIRATORY TX, SUPPLEMENTAL OXYGEN, CONTINUE TO MONITOR (2) Diabetic gastroparesis Status: Acute (3) Nausea & vomiting Status: Acute (4) Abdominal pain Status: Acute (5) Acute hyperglycemia Status: Acute Plan: HUMULIN R SLIDING SCALE, MONITOR OTBS, CONTINUE TO MONITOR
[2019-03-29] MEDS: RESTORIL CAP 30 MG PO SCH (20:52)
[2019-03-29] MEDS: REMERON PO SCH (20:52)
[2019-03-29] MEDS: SNACK - Diabetic Appropriate PO SCH (20:52)
[2019-03-30] MEDS: NS 1000 ML 1,000 ML IV SCH (01:06)
[2019-03-30] MEDS: DEMEROL INJ IVP PRN ×2 (03:09→09:17)
[2019-03-30] MEDS: FORTAZ or TAZICEF VIAL INJ 1 G in NS 100 ML IV + SPIKE MINIBAG* 100 ML IV SCH (05:05)
[2019-03-30 05:28] LABS: BASOPHILS % (AUTO) 0.4 % (0.2-1.0); EOSINOPHILS # (AUTO) 0.1 x10^3/uL (0.0-0.2); HEMATOCRIT 29.4 % (42.0-54.0); HEMOGLOBIN 9.6 g/dL (13.5-18.0); LYMPHOCYTES # (AUTO) 1.9 X10^3/uL (1.3-2.9); LYMPHOCYTES % (AUTO) 36.8 % (21.0-51.0); MEAN CORPUSCULAR HEMOGLOBIN 24.8 pg (27.0-34.0); MEAN CORPUSCULAR HGB CONC 32.9 g/dL (33.0-35.0); MEAN CORPUSCULAR VOLUME 75.5 fL (80.0-100.0); MEAN PLATELET VOLUME 8.8 fL (7.4-11.0); MONOCYTES # (AUTO) 0.5 x10^3/uL (0.3-0.8); MONOCYTES % (AUTO) 8.9 % (0.0-13.0); NEUTROPHILS # (AUTO) 2.7 x10^3/uL (2.2-4.8); NEUTROPHILS % (AUTO) 52.9 % (42.0-75.0); PLATELET COUNT 204 X10^3/uL (150.0-450.0); RED BLOOD COUNT 3.89 X10^6/uL (4.7-6.0); RED CELL DISTRIBUTION WIDTH 19.8 % (11.6-16.5); WHITE BLOOD COUNT 5.1 X10^3/uL (3.6-10.0)
[2019-03-30] MEDS: CARAFATE PO SCH (05:32)
[2019-03-30 05:45] LABS: ALANINE AMINOTRANSFERASE 18 Units/L (12-78); ALBUMIN 2.6 g/dL (3.4-5.0); ALKALINE PHOSPHATASE 126 Units/L (46-116); ASPARTATE AMINO TRANSFERASE 16 Units/L (15-37); BLOOD UREA NITROGEN 12 mg/dL (7-18); CALCIUM 8.1 mg/dL (8.5-10.1); CARBON DIOXIDE 25.4 mmol/L (21-32); CHLORIDE 105 mmol/L (98-107); COR CA(FOR HYPOALB) 9.2 mg/dL (8.5-10.1); COR NA(FOR HYPERGLY) 142 mmol/L (136-145); CREATININE 0.95 mg/dL (0.70-1.30); SODIUM 139 mmol/L (136-145); TOTAL PROTEIN 6.3 g/dL (6.4-8.2); eGFR NON BLACK RACES > 60 (>60)
[2019-03-30] MEDS: HumuLIN R SC PRN (05:56)
[2019-03-30] MEDS: COZAAR PO SCH (08:50)
[2019-03-30] MEDS: LEVAQUIN PREMIX IV 750 MG 750 MG/150 ML BAG IV SCH (08:50)
[2019-03-30] MEDS: PEPCID TAB 20 MG PO SCH (08:51)
[2019-03-30] MEDS: NORVASC TAB 5 MG PO SCH (08:51)
[2019-03-30] MEDS: LINZESS PO SCH (08:51)
[2019-03-30] MEDS: GLUCOTROL PO SCH (08:51)
[2019-03-30] MEDS: K-DUR TAB 20 MEQ PO SCH (08:52)
[2019-03-30] MEDS: LOVENOX INJ 40 MG SYR SC SCH (08:53)
[2019-03-30 20:11] VITALS: BP 158/87
--- NOTE | 2019-05-09 10:10 | PCM.PROG ---
Progress Note - Progress Note for Day of Date of Exam: 03/29/19 - Subjective Subjective: WAS ADMITTED FOR TREATMENT OF PNEUMONIA, INTRACTABLE NAUSEA AND VOMITING, ABDOMINAL PAIN, HYPERGLYCEMIA, AND DIABETIC GASTROPARESIS. TODAY, HE IS ALERT AND ORIENTED, LYING IN BED ON MORNING ROUNDS. HE CONTINUES WITH COMPLAINTS OF SHORTNESS OF BREATH, ABDOMINAL PAIN, AND NAUSEA. ON EXAMINATION, HEART IS REGULAR IN RATE AND RHYTHM. BIALTERAL LUNGS ARE NOTED WITH DIMINISHED LUNG SOUNDS THROUGHOUT. ABDOMEN IS ROUND, SOFT, AND NON-TEDNER WITH NORMAL BOWEL SOUNDS NOTED IN ALL QUADRANTS. HIS VITALS THIS MORNING ARE: 97.6-75-20-95%-139/82. LABS WERE OBTAINED. ABNORMAL LAB VALUES INCLUDE THE FOLLOWING: RBC 4.44, HGB 10.9, HCT 33.8, GLUCOSE 304, CALCIUM 8.0, ALK PHOS 143, ALBUMIN 2.9. BLOOD CULTURES ARE PENDING. A CHEST XRAY WAS OBTAINED AND REVEALED: LUNGS CLEAR. HE IS CURRENTLY RECEIVING 125ML/HR, IV FORTAZ, IV LEVAQUIN, RESPIRATORY TREATMENTS, ZOFRAN COCKTAIL, HUMULIN R SLIDING SCALE, AND HOME MEDICATIONS WERE RESUMED. WE WILL CONTINUE WITH CURRENT PLAN OF CARE TODAY. OTHERWISE, WE WILL FOLLOW UP WITH AM LABS AND CHEST XRAY AND CONTINUE TO MONITOR. - Past Medical Family Social History Past Med/Fam/Surg Hx: No changes since H&P Allergies: Allergies codeine Allergy (Verified 04/27/19 00:57) morphine Allergy (Verified 04/27/19 00:57) - Review of Systems ROS: No change since H&P - Vital Signs and I&O's Vital Signs: Temperature 98.1 F Pulse Rate [Apical] 96 Pulse Rate 85 Respiratory Rate 20 Blood Pressure [Right Arm] 183/83 Blood Pressure [Left Arm] 158/87 Blood Pressure 173/96 O2 Sat by Pulse Oximetry 99 - Physical Exam Oriented: Normal Eyes: Normal Ear: Normal Nose: Normal Throat: Normal Respiratory: Generalized, Diminished Cardiovascular: Normal : Normal Auscultation: Bowel Sounds: Normal Tenderness: Diffuse, Mild. negative: Rebound, Guarding, Rigidity Skin: Normal Musculoskeletal: Normal Psychiatric: Normal Mood Description: Calm Affect: Normal Speech Pattern: Clear, Appropriate - Laboratory and Diagnostics Result Diagrams: 03/30/19 04:36 03/30/19 04:36 Labs: 03/25/19 23:08 Blood Blood Culture - Final Staphylococcus Epidermidis 10/17/19 23:00 Blood Blood Culture - Final Staphylococcus Epidermidis Laboratory WBC 5.1 X10^3/uL (3.6-10.0) 03/30/19 04:36 RBC 3.89 X10^6/uL (4.7-6.0) L 03/30/19 04:36 Hgb 9.6 g/dL (13.5-18.0) L 03/30/19 04:36 Hct 29.4 % (42.0-54.0) L 03/30/19 04:36 MCV 75.5 fL (80.0-100.0) L 03/30/19 04:36 MCH 24.8 pg (27.0-34.0) L 03/30/19 04:36 MCHC 32.9 g/dL (33.0-35.0) L 03/30/19 04:36 RDW 19.8 % (11.6-16.5) H 03/30/19 04:36 Plt Count 204 X10^3/uL (150.0-450.0) 03/30/19 04:36 Plt Count Comment Adequate (ADEQUATE) 03/27/19 04:14 MPV 8.8 fL (7.4-11.0) 03/30/19 04:36 Neut % (Auto) 52.9 % (42.0-75.0) 03/30/19 04:36 Lymph % (Auto) 36.8 % (21.0-51.0) 03/30/19 04:36 [place] % (Auto) 8.9 % (0.0-13.0) 03/30/19 04:36 Eos % (Auto) 1.0 % (0.9-2.9) 03/30/19 04:36 Baso % (Auto) 0.4 % (0.2-1.0) 03/30/19 04:36 Neut # (Auto) 2.7 x10^3/uL (2.2-4.8) 03/30/19 04:36 Lymph # (Auto) 1.9 X10^3/uL (1.3-2.9) 03/30/19 04:36 [place] # (Auto) 0.5 x10^3/uL (0.3-0.8) 03/30/19 04:36 Eos # (Auto) 0.1 x10^3/uL (0.0-0.2) 03/30/19 04:36 Baso # (Auto) 0.0 X10^3/uL (0.0-0.1) 03/30/19 04:36 Absolute Nucleated RBC 0.1 /100WBC 03/30/19 04:36 Total Counted 100 03/25/19 17:31 Neutrophils % (Manual) 90 % (39-76) H 03/25/19 17:31 Lymphocytes % (Manual) 8 % (13-43) L 03/25/19 17:31 Monocytes % (Manual) 2 % (4-9) L 03/25/19 17:31 Plt Morphology Comment Normal (NORMAL) 03/27/19 04:14 RBC Morphology Abnormal (NORMAL) 03/27/19 04:14 Hypochromasia Slight A 03/25/19 17:31 Anisocytosis 1+ A 03/27/19 04:14 Microcytosis Slight A 03/25/19 17:31 Sodium 139 mmol/L (136-145) 03/30/19 04:36 Corrected Sodium 142 mmol/L (136-145) 03/30/19 04:36 Potassium 3.9 mmol/L (3.5-5.1) 03/30/19 04:36 Chloride 105 mmol/L (98-107) 03/30/19 04:36 Carbon Dioxide 25.4 mmol/L (21-32) 03/30/19 04:36 BUN 12 mg/dL (7-18) 03/30/19 04:36 Creatinine 0.95 mg/dL (0.70-1.30) 03/30/19 04:36 Est GFR (MDRD) Af Amer > 60 (>60) 03/30/19 04:36 Est GFR (MDRD) Non-Af > 60 (>60) 03/30/19 04:36 Glucose 226 mg/dL (65-99) H 03/30/19 04:36 POC Glucose (mg/dL) 243 mg/dL (65-99) H 03/30/19 05:41 Lactic Acid 3.1 mmol/L (0.4-2.0) H 03/25/19 20:55 Calcium 8.1 mg/dL (8.5-10.1) L 03/30/19 04:36 Corrected Calcium 9.2 mg/dL (8.5-10.1) 03/30/19 04:36 Magnesium 2.3 mg/dL (1.7-2.9) 03/27/19 04:14 Total Bilirubin 0.10 mg/dL (0.2-1.0) L 03/30/19 04:36 AST 16 Units/L (15-37) 03/30/19 04:36 ALT 18 Units/L (12-78) 03/30/19 04:36 Alkaline Phosphatase 126 Units/L (46-116) H 03/30/19 04:36 Creatine Kinase 713 Units/L (39-308) H 03/26/19 10:55 CK-MB (CK-2) 6.8 ng/mL (0-4.0) H* 03/26/19 10:55 CK/CKMB % Calc 1.0 % (<4) 03/26/19 10:55 Troponin I < 0.02 ng/mL (0-1.5) 03/26/19 10:55 Total Protein 6.3 g/dL (6.4-8.2) L 03/30/19 04:36 Albumin 2.6 g/dL (3.4-5.0) L 03/30/19 04:36 Globulin 3.7 g/dL (2.5-4.5) 03/30/19 04:36 Albumin/Globulin Ratio 0.7 Ratio (1.1-2.1) L 03/30/19 04:36 Amylase 72 Units/L (25-115) 03/25/19 17:31 Lipase 107 Units/L (73-393) 03/25/19 17:31 Specimen Type Random urine 03/25/19 19:34 Urine Color Yellow (YELLOW) 03/25/19 19:34 Urine Appearance Clear (CLEAR) 03/25/19 19:34 Urine pH 6.0 (5.0 - 8.0) 03/25/19 19:34 Ur Specific [place] 1.010 (1.000-1.030) 03/25/19 19:34 Urine Protein 3+ (NEGATIVE) 03/25/19 19:34 Urine Glucose (UA) 4+ (NEGATIVE) 10/17/19 19:34 Urine Ketones 3+ (NEGATIVE) 03/25/19 19:34 Urine Occult Blood 3+ (NEGATIVE) 03/25/19 19:34 Urine Nitrite Negative (NEGATIVE) 03/25/19 19:34 Urine Bilirubin Negative (NEGATIVE) 03/25/19 19:34 Urine Urobilinogen Normal (NORMAL) 03/25/19 19:34 Ur Leukocyte Esterase Negative (NEGATIVE) 03/25/19 19:34 Urine RBC 5-10 /HPF (0-3) A 03/25/19 19:34 Urine WBC None seen /HPF (0-5) 03/25/19 19:34 Ur Squamous Epith Cells Negative /HPF (NEGATIVE) 03/25/19 19:34 Urine Bacteria Negative /HPF (NEGATIVE) 03/25/19 19:34 Urine Mucus Few /HPF (NEGATIVE) 03/25/19 19:34 Ur Culture Indicated? No/not indicated 03/25/19 19:34 Urine Opiates Screen Negative (NEG=<300) 03/25/19 19:35 Urine Methadone Screen Negative (NEG=<300) 03/25/19 19:35 Ur Barbiturates Screen Negative (NEG=<200) 03/25/19 19:35 Ur Phencyclidine Scrn Negative (NEG=<25) 03/25/19 19:35 Ur Amphetamines Screen Negative (NEG=<1000) 03/25/19 19:35 U Benzodiazepines Scrn Negative (NEG=<200) 03/25/19 19:35 Urine Cocaine Screen Negative (NEG=<300) 03/25/19 19:35 U Marijuana (THC) Screen Negative (NEG=<50) 03/25/19 19:35 Acetone, Semi-Quant Negative (NEGATIVE) 03/26/19 05:20 - Plan (1) Pneumonia Status: Acute Qualifiers: Pneumonia type: due to unspecified organism Laterality: bilateral Plan: PNEUMONIA PROTOCOL, IV LEVAQUIN, IV FORTAZ, NORMAL SALINE, RESPIRATORY TX, SUPPLEMENTAL OXYGEN, CONTINUE TO MONITOR (2) Diabetic gastroparesis Status: Inactive (3) Nausea & vomiting Status: Acute (4) Abdominal pain Status: Acute (5) Acute hyperglycemia Status: Acute Plan: HUMULIN R SLIDING SCALE, MONITOR OTBS, CONTINUE TO MONITOR
== END 2019-03-30 11:40 | disposition home or self-care (01) | DRG 195 ==
LOC: ER 17:14 → ICU 23:08 → MED/SURG 03-28 11:10
PROVIDERS: ADMIT Internal Medicine; ATTEND Internal Medicine
DX: R06.02 Shortness of breath; R11.2 Nausea with vomiting, unspecified; I48.91 Unspecified atrial fibrillation; K59.09 Other constipation; J18.8 Other pneumonia, unspecified organism; K44.9 Diaphragmatic hernia without obstruction or gangrene; E11.65 Type 2 diabetes mellitus with hyperglycemia; E11.43 Type 2 diabetes mellitus with diabetic autonomic (poly)neuropathy; B95.7 Other staphylococcus as the cause of diseases classified elsewhere; R10.84 Generalized abdominal pain; R94.31 Abnormal electrocardiogram [ECG] [EKG]
CPT/HCPCS: 36415; 71010; 71045; 74000; 74018; 74022; 74176; 80053; 80307; 81001; 82009; 82150; 82550; 82553; 82947; 83605; 83690; 83735; 84132; 84484; 85025; 87040; 87077; 87186; 93005; 94640; 96365; 96367; 96372; 96374; 96375; 99284; A4222; G0434; J0713; J1642; J1650; J1815; J1956; J2175; J2405; J2550; J7030; J7050

== ENCOUNTER 2019-04-26 21:08 | Observation (INO) ==
--- NOTE | 2019-04-26 21:35 | DR.N/VMALE ---
HPI - Time Seen Time seen: 21:35 - Primary Care Physician Primary Care Physician: SAVANNAH - HPI Comment HPI Comment: He developed n/v today and has been unable to stop; no diarrhea, fever, chills or rash; similar to recurrent episodes for months due uncontrolled sugars from not taking medication properly. - Complaints Chief Complaint:: PT C/O N/V STARTED TODAY WITH ABD PAIN - Reviewed Nurses Notes Reviewed: Yes - Source History Provided: Patient - Mode of Arrival Mode of Arrival: Ambulatory - Timing Onset of Chief Complaint: 04/26/19 PMH - PMH Past Medical History: Yes Past Medical History: Diabetes, Hypertension Past Surgical History: Yes Surgical History: Appendectomy, Cholecystectomy - Family History History of Family Medical Conditions: Yes Family Medical History: Diabetes Mellitus, Hypertension - Social History Does any household member use tobacco: No Alcohol Use: None Do you use any recreational Drugs:: No Lives With: Family Lives Where: Home - infectious screening In the last 2 months have you had wt loss of >10#?: NO Have you traveled outside the country in the last 6 months?: No Isolation: Standard ROS - Review of Systems Constitutional: See HPI, Malaise Eyes: No Symptoms Reported ENTM: No Symptoms Reported Respiratoy: No Symptoms Reported Cardiovascular: No Symptoms Reported Gastrointestinal/Abdominal: See HPI Genitourinary: No Symptoms Reported Neurological: No Symptoms Reported Musculoskeletal: No Symptoms Reported Integumentary: No Symptoms Reported Hematologic/Lymphatic: No Symptoms Reported Endocrine: See HPI PE - General Limitations: No Limitations, Language Barrier General Appearance: Alert, Other (uncomfortable appearing) - Head Head Exam: Normal Inspection, Atraumatic - Eyes Eye exam: Normal Appearance, PERRL - ENT ENT Exam: Normal Exam - Neck Neck Exam: Normal Inspection - Chest Chest Inspection: Normal Inspection, Symmetric Chest Wall Rise - Respiratory Respiratory Exam: Normal Lung Sounds Bilat Respiratory Exam: Bilateral Clear to Auscultation - Cardiovascular Cardiovascular Exam: Normal Rhythm, Tachycardia - Abdominal Exam Abdominal Exam: Normal Inspection, Soft, Tenderness Abdominal Tenderness: Diffuse, Moderate - Extremities Extremities Exam: Normal Inspection, Full ROM - Neurologic Neurological Exam: Alert, Oriented X3, CN II-XII Intact - Psychiatric Psychiatric Exam: Other (appears to be in pain) - Skin Skin Exam: Warm, Dry - Vital Signs Vitals: Temperature 98 F Pulse Rate 127 Respiratory Rate 18 Blood Pressure [Right Arm] 183/83 Blood Pressure [Left Arm] 169/90 Blood Pressure 148/80 O2 Sat by Pulse Oximetry 96 Course - Reevaluation 1st: Improved 2nd: Resolved, Unchanged ("I'm still throwing up".) - Consultation Called: 00:50 (Dr Ontiveros accepts admission) - Education/Counseling Education/Counseling: Patient ROR - Labs Reviewed Laboratory Results Reviewed?: Yes Result Diagrams: 04/26/19 22:13 04/26/19 22:13 - Other Results Comments: IMPRESSION: 1. No acute cardiopulmonary process. 2. Nonobstructive bowel gas pattern without radiographic evidence of. pneumoperitoneum. - XRAY XRAY Interpreted by: Radiologist - Labs Reviewed Laboratory: WBC 11.4 X10^3/uL (3.6-10.0) H 04/26/19 22:13 RBC 4.72 X10^6/uL (4.7-6.0) 04/26/19 22:13 Hgb 11.7 g/dL (13.5-18.0) L 04/26/19 22:13 Hct 35.6 % (42.0-54.0) L 04/26/19 22:13 MCV 75.3 fL (80.0-100.0) L 04/26/19 22:13 MCH 24.8 pg (27.0-34.0) L 04/26/19 22:13 MCHC 32.9 g/dL (33.0-35.0) L 04/26/19 22:13 RDW 19.1 % (11.6-16.5) H 04/26/19 22:13 Plt Count 295 X10^3/uL (150.0-450.0) 04/26/19 22:13 Plt Count Comment Adequate (ADEQUATE) 04/26/19 22:13 MPV 8.5 fL (7.4-11.0) 04/26/19 22:13 Neut % (Auto) 91.4 % (42.0-75.0) H 04/26/19 22:13 Lymph % (Auto) 7.5 % (21.0-51.0) L 04/26/19 22:13 [place] % (Auto) 0.4 % (0.0-13.0) 04/26/19 22:13 Eos % (Auto) 0.1 % (0.9-2.9) L 04/26/19 22:13 Baso % (Auto) 0.6 % (0.2-1.0) 04/26/19 22:13 Neut # (Auto) 10.4 x10^3/uL (2.2-4.8) H 04/26/19 22:13 Lymph # (Auto) 0.9 X10^3/uL (1.3-2.9) L 04/26/19 22:13 [place] # (Auto) 0.1 x10^3/uL (0.3-0.8) L 04/26/19 22:13 Eos # (Auto) 0.0 x10^3/uL (0.0-0.2) 04/26/19 22:13 Baso # (Auto) 0.1 X10^3/uL (0.0-0.1) 04/26/19 22:13 Absolute Nucleated RBC 0.0 /100WBC 04/26/19 22:13 Total Counted 100 04/26/19 22:13 Neutrophils % (Manual) 91 % (39-76) H 04/26/19 22:13 Lymphocytes % (Manual) 9 % (13-43) L 04/26/19 22:13 Plt Morphology Comment Normal (NORMAL) 04/26/19 22:13 RBC Morphology Normal (NORMAL) 04/26/19 22:13 Sodium 138 mmol/L (136-145) 04/26/19 22:13 Corrected Sodium 145 mmol/L (136-145) 04/26/19 22:13 Potassium 4.4 mmol/L (3.5-5.1) 04/26/19 22:13 Chloride 98 mmol/L (98-107) 04/26/19 22:13 Carbon Dioxide 26.6 mmol/L (21-32) 04/26/19 22:13 BUN 18 mg/dL (7-18) 04/26/19 22:13 Creatinine 1.48 mg/dL (0.70-1.30) H 04/26/19 22:13 Est GFR (MDRD) Af Amer > 60 (>60) 04/26/19 22:13 Est GFR (MDRD) Non-Af 54 (>60) L 04/26/19 22:13 Glucose 390 mg/dL (65-99) H 04/26/19 22:13 Calcium 9.4 mg/dL (8.5-10.1) 04/26/19 22:13 Corrected Calcium TNP 04/26/19 22:13 Total Bilirubin 0.50 mg/dL (0.2-1.0) 04/26/19 22:13 AST 15 Units/L (15-37) 04/26/19 22:13 ALT 19 Units/L (12-78) 04/26/19 22:13 Alkaline Phosphatase 172 Units/L (46-116) H 04/26/19 22:13 Total Protein 9.2 g/dL (6.4-8.2) H 04/26/19 22:13 Albumin 4.0 g/dL (3.4-5.0) 04/26/19 22:13 Globulin 5.2 g/dL (2.5-4.5) H 04/26/19 22:13 Albumin/Globulin Ratio 0.8 Ratio (1.1-2.1) L 04/26/19 22:13 Lipase 168 Units/L (73-393) 04/26/19 22:13 Acetone, Semi-Quant Negative (NEGATIVE) 04/26/19 22:13 Opioid - Opioid Risk Tool Age (Paddy box if 16-45): No History of Preadolescent Sexual Abuse: No Total: 0 Total Score Risk Category: Low Risk - Diagnosis Discharge Problem: Nausea and vomiting in adult patient, Diabetic gastroparesis Diabetes mellitus type 1 Qualifiers: Diabetes mellitus complication status: with neurologic complications Diabetes mellitus complication detail: with autonomic neuropathy Qualified Code(s): E10.43 - Type 1 diabetes mellitus with diabetic autonomic (poly)neuropathy - Discharge Plan Disposition: 09 ADMITTED INPATIENT Condition: Stable - Follow ups/Referrals Follow ups/Referrals: Williams Worthington [Primary Care Provider] - 3 days - Instructions Instructions: Gastroparesis
[2019-04-26] MEDS ORDERED: DEMEROL INJ IVP ONE (21:55)
[2019-04-26] MEDS ORDERED: ZOFRAN INJ 4 MG VIAL IVP ONE ×2 (21:55→23:18)
[2019-04-26] MEDS ORDERED: ZOFRAN INJ 4 MG VIAL ONE ×2 (22:09→23:24)
[2019-04-26] MEDS ORDERED: DEMEROL INJ ONE (22:10)
--- NOTE | 2019-04-26 22:16 | RAD ---
ACUTE ABDOMINAL SERIES CLINICAL HISTORY: 48-year-old male with nausea vomiting with abdominal pain. COMPARISON: Abdominal radiograph 03/28/2019. Chest radiographs 04/02/2019 FINDINGS: Chest radiograph demonstrates stable appearance left chest chemo port. Cardiopericardial silhouette is not enlarged. No consolidation, effusion or pneumothorax. Abdominal radiographs demonstrate a nonobstructive bowel gas pattern. Gas and stool are seen throughout the colon. There is no small bowel distention. There is no radiographic evidence of pneumoperitoneum. Imaged osseous structures are intact. Soft tissues are unremarkable. IMPRESSION: 1. No acute cardiopulmonary process. 2. Nonobstructive bowel gas pattern without radiographic evidence of pneumoperitoneum. Reported By:
[2019-04-26 22:24] LABS: BASOPHILS # (AUTO) 0.1 X10^3/uL (0.0-0.1); BASOPHILS % (AUTO) 0.6 % (0.2-1.0); EOSINOPHILS % (AUTO) 0.1 % (0.9-2.9); HEMATOCRIT 35.6 % (42.0-54.0); HEMOGLOBIN 11.7 g/dL (13.5-18.0); LYMPHOCYTES # (AUTO) 0.9 X10^3/uL (1.3-2.9); LYMPHOCYTES % (AUTO) 7.5 % (21.0-51.0); MEAN CORPUSCULAR HEMOGLOBIN 24.8 pg (27.0-34.0); MEAN CORPUSCULAR HGB CONC 32.9 g/dL (33.0-35.0); MEAN CORPUSCULAR VOLUME 75.3 fL (80.0-100.0); MEAN PLATELET VOLUME 8.5 fL (7.4-11.0); MONOCYTES # (AUTO) 0.1 x10^3/uL (0.3-0.8); MONOCYTES % (AUTO) 0.4 % (0.0-13.0); NEUTROPHILS # (AUTO) 10.4 x10^3/uL (2.2-4.8); NEUTROPHILS % (AUTO) 91.4 % (42.0-75.0); PLATELET COUNT 295 X10^3/uL (150.0-450.0); RED BLOOD COUNT 4.72 X10^6/uL (4.7-6.0); RED CELL DISTRIBUTION WIDTH 19.1 % (11.6-16.5); WHITE BLOOD COUNT 11.4 X10^3/uL (3.6-10.0)
[2019-04-26 22:33] LABS: SERUM ACETONE NEGATIVE (NEGATIVE)
[2019-04-26 22:34] LABS: ALANINE AMINOTRANSFERASE 19 Units/L (12-78); ALKALINE PHOSPHATASE 172 Units/L (46-116); ASPARTATE AMINO TRANSFERASE 15 Units/L (15-37); BLOOD UREA NITROGEN 18 mg/dL (7-18); CALCIUM 9.4 mg/dL (8.5-10.1); CARBON DIOXIDE 26.6 mmol/L (21-32); CHLORIDE 98 mmol/L (98-107); COR NA(FOR HYPERGLY) 145 mmol/L (136-145); CREATININE 1.48 mg/dL (0.70-1.30); LIPASE 168 Units/L (73-393); SODIUM 138 mmol/L (136-145); TOTAL PROTEIN 9.2 g/dL (6.4-8.2); eGFR NON BLACK RACES 54 (>60)
[2019-04-26 22:47] LABS: PLATELET MORPHOLOGY COMMENT NORMAL (NORMAL)
[2019-04-26] MEDS ORDERED: NS 1000 ML 1,000 ML IV ONE (23:18)
[2019-04-26] MEDS ORDERED: NS 1000 ML 1,000 ML ONE (23:24)
[2019-04-26] MEDS ORDERED: PHENERGAN INJ 25 MG IM ONE (23:59)
[2019-04-27] MEDS ORDERED: PHENERGAN INJ 25 MG IM ONE (00:05)
[2019-04-27] MEDS ORDERED: ZOFRAN INJ 4 MG VIAL 16 MG, ATIVAN INJ 2 MG VIAL 1 MG, DECADRON INJ 10 MG in NS 50 ML I... IV ONE (00:45)
[2019-04-27] MEDS ORDERED: DECADRON INJ ONE (00:53)
[2019-04-27] MEDS ORDERED: ZOFRAN INJ 4 MG VIAL ONE ×2 (00:53→06:37)
[2019-04-27] MEDS ORDERED: NS 100 ML IV 100 ML IV ONE (00:54)
[2019-04-27] MEDS ORDERED: ATIVAN INJ 2 MG VIAL ONE ×2 (00:54→06:37)
[2019-04-27] MEDS ORDERED: APRESOLINE INJ 20 MG VIAL IVP PRN (00:55)
[2019-04-27] MEDS ORDERED: ZOFRAN INJ 4 MG VIAL 16 MG, ATIVAN INJ 2 MG VIAL 1 MG, DECADRON INJ 10 MG in NS 50 ML I... IV PRN (00:59)
[2019-04-27] MEDS ORDERED: DEMEROL INJ IVP PRN (00:59)
[2019-04-27] MEDS ORDERED: CATAPRES-TTS-3 TD SCH (01:00)
[2019-04-27] MEDS: NS 1000 ML 1,000 ML IV SCH ×3 (01:45→18:41)
[2019-04-27 02:24] VITALS: BMI 26.6
[2019-04-27 02:43] LABS: APPEARANCE,URINE CLEAR (CLEAR); BILIRUBIN,URINE NEGATIVE (NEGATIVE); BLOOD/HEMOGLOBIN,URINE 2+ (NEGATIVE); COLOR,URINE YELLOW (YELLOW); GLUCOSE, URINE 4+ (NEGATIVE); KETONES,URINE 2+ (NEGATIVE); LEUKOCYTE ESTERASE ,URINE NEGATIVE (NEGATIVE); NITRITES,URINE NEGATIVE (NEGATIVE); PH,URINE 6.5 (5.0 - 8.0); PROTEIN,URINE 3+ (NEGATIVE); UROBILINOGEN,URINE NORMAL (NORMAL)
[2019-04-27 02:56] LABS: BACTERIA,URINE NEGATIVE /HPF (NEGATIVE); RBC,URINE 0-2 /HPF (0-3); SQUAMOUS EPITHELIAL CELL,UR NEGATIVE /HPF (NEGATIVE)
[2019-04-27] MEDS ORDERED: DEMEROL INJ ONE (04:00)
[2019-04-27] MEDS: HumuLIN R SUBCUT PRN ×4 (06:15→21:49)
[2019-04-27 06:30] LABS: BASOPHILS # (AUTO) 0.1 X10^3/uL (0.0-0.1); BASOPHILS % (AUTO) 0.4 % (0.2-1.0); HEMATOCRIT 36.5 % (42.0-54.0); LYMPHOCYTES # (AUTO) 0.8 X10^3/uL (1.3-2.9); LYMPHOCYTES % (AUTO) 5.6 % (21.0-51.0); MEAN CORPUSCULAR HEMOGLOBIN 24.9 pg (27.0-34.0); MEAN CORPUSCULAR HGB CONC 32.9 g/dL (33.0-35.0); MEAN CORPUSCULAR VOLUME 75.5 fL (80.0-100.0); MEAN PLATELET VOLUME 8.9 fL (7.4-11.0); MONOCYTES # (AUTO) 0.1 x10^3/uL (0.3-0.8); MONOCYTES % (AUTO) 0.6 % (0.0-13.0); NEUTROPHILS # (AUTO) 13.4 x10^3/uL (2.2-4.8); NEUTROPHILS % (AUTO) 93.4 % (42.0-75.0); PLATELET COUNT 294 X10^3/uL (150.0-450.0); RED BLOOD COUNT 4.84 X10^6/uL (4.7-6.0); RED CELL DISTRIBUTION WIDTH 19.1 % (11.6-16.5); WHITE BLOOD COUNT 14.3 X10^3/uL (3.6-10.0)
[2019-04-27] MEDS ORDERED: DECADRON INJ PRESERVATIVE-FREE IM ONE (06:36)
[2019-04-27] MEDS ORDERED: NS 50 ML IV 50 ML IV ONE (06:36)
[2019-04-27 06:50] LABS: PLATELET MORPHOLOGY COMMENT NORMAL (NORMAL)
[2019-04-27] MEDS: LOVENOX INJ 40 MG SYR SC SCH (11:13)
[2019-04-27] MEDS: CARAFATE PO SCH ×3 (11:13→21:49)
[2019-04-27] MEDS: PROTONIX INJ 40 MG VIAL IVP SCH (11:13)
[2019-04-27] MEDS: COZAAR PO SCH (11:13)
[2019-04-27] MEDS: NEURONTIN CAP 300 MG PO SCH ×3 (11:13→21:49)
[2019-04-27] MEDS: NORVASC TAB 5 MG PO SCH (11:14)
[2019-04-27] MEDS ORDERED: NORCO 10/325 TAB PO PRN (11:39)
[2019-04-27] MEDS ORDERED: LEVEMIR SC ONE (17:33)
--- NOTE | 2019-04-27 17:39 | DR.H&P ---
H&P - History & Physical for Day of: H&P Date: 04/26/19 - Chief Complaint Chief Complaint: He developed n/v today and has been unable to stop; no diarrhea, fever, chills or rash; similar to recurrent episodes for months due uncontrolled sugars from not taking medication properly. - History of Present Illness History of Present Illness: 48 BM ER ADMISSION WITH CO ABDOMINAL PAIN AND N/V. PT HAS HX GASTROPARESIS DUE TO DIABETES, UNCONTROLLED BLOOD SUGAR. PT EVALUATED IN ER, ACETONE NEGATIVE. ELEVATED CREAT LEVEL 1.48. PT ADMITTED FOR EVALUATION OF ACUTE ILLNESS. - Past Medical History Past Medical History: Diabetes, Hypertension Additional Medical History: Diabetic Neuropathy, Diabetic Gastroparesis, Hiatal Hernia, Gastric Ulcer, Gall Bladder Disease, Back Pain - Past Surgical History Surgical History: Cholecystectomy, Ortho Surgery, Other Additional Surgical History: Right foot I&D - Family History Family Medical History: Diabetes Mellitus - Social History Does patient currently use any type of tobacco product: No Have you used tobacco products in the last 12 months: No Type of Tobacco Use: None Does any household member use tobacco: No Alcohol Use: None Drug Use: Prescription Drugs - Medications Home Medications: codeine Allergy (Verified 04/27/19 00:57) morphine Allergy (Verified 04/27/19 00:57) - Review of Systems Constitutional: Weakness Eyes: No Symptoms Reported ENT: No Symptoms Reported Respiratory: No Symptoms Reported Cardiovascular: No Symptoms Reported Gastrointestinal: Nausea, Vomiting, Abdominal Pain. denies: Diarrhea, Constipation, Melena Genitourinary: No Symptoms Reported Musculoskeletal: No Symptoms Reported Skin: No Symptoms Reported Neurological: No Symptoms Reported - Physical Exam Vital Signs: Temperature 98.0 F Pulse Rate [Left Brachial] 123 Pulse Rate 127 Respiratory Rate 20 Blood Pressure [Right Arm] 171/98 Blood Pressure [Left Arm] 153/81 Blood Pressure 148/80 O2 Sat by Pulse Oximetry 98 Oriented: Normal Eyes: Normal Ear: Normal Nose: Normal Throat: Dry Respiratory: RLL Diminished, LLL Diminished Cardiovascular: Normal : Normal Auscultation: Bowel Sounds: Normal Palpation: Normal Tenderness: Epigastric, Periumbilical Skin: Normal Musculoskeletal: Normal Mood Description: Calm Speech Pattern: Clear, Appropriate - Assessment/Plan (1) Abdominal pain Status: Acute Plan: ADMIT, NPO GENTLE IV HYDRATION. PAIN AND NAUSEA CONTROL. BLOOD SUGAR CONTROL, REPEAT AM ACETONE AND CBC CMP. UA ON ADMISSION, CONFIRM HOME MEDICATION, NPO (2) Nausea & vomiting Status: Acute (3) Acute hyperglycemia Status: Acute (4) Diabetic gastroparesis Status: Chronic (5) Diabetes mellitus Qualifiers: Diabetes mellitus type: type 2 Status: Chronic (6) Hypertension Qualifiers: Status: Chronic - Allergies Allergies/Adverse Reactions: Allergies Allergy/AdvReac Type Severity Reaction Status Date / Time codeine Allergy Verified 04/27/19 00:57 morphine Allergy Verified 04/27/19 00:57
[2019-04-27] MEDS ORDERED: ATIVAN TAB 1 MG PO PRN (17:42)
[2019-04-27] MEDS: ZITHROMAX INJ 500 MG VIAL 500 MG in NS 250 ML IV 250 ML IV SCH (18:42)
[2019-04-27] MEDS ORDERED: SNACK - Diabetic Appropriate PO SCH ×2 (20:00)
[2019-04-28] MEDS: NS 1000 ML 1,000 ML IV SCH ×3 (00:20→09:03)
[2019-04-28] MEDS: NEURONTIN CAP 300 MG PO SCH ×2 (05:47→14:17)
[2019-04-28] MEDS: HumuLIN R SUBCUT PRN ×2 (05:47→11:57)
[2019-04-28] MEDS: CARAFATE PO SCH ×2 (05:47→11:37)
[2019-04-28 06:35] LABS: ALANINE AMINOTRANSFERASE 19 Units/L (12-78); ALBUMIN 3.3 g/dL (3.4-5.0); ALKALINE PHOSPHATASE 130 Units/L (46-116); ASPARTATE AMINO TRANSFERASE 13 Units/L (15-37); BLOOD UREA NITROGEN 39 mg/dL (7-18); CALCIUM 8.1 mg/dL (8.5-10.1); CARBON DIOXIDE 27.8 mmol/L (21-32); CHLORIDE 104 mmol/L (98-107); COR CA(FOR HYPOALB) 8.7 mg/dL (8.5-10.1); COR NA(FOR HYPERGLY) 145 mmol/L (136-145); CREATININE 1.56 mg/dL (0.70-1.30); SODIUM 141 mmol/L (136-145); TOTAL PROTEIN 7.7 g/dL (6.4-8.2); eGFR NON BLACK RACES 51 (>60)
[2019-04-28] MEDS: LOVENOX INJ 40 MG SYR SC SCH (09:02)
[2019-04-28] MEDS: COZAAR PO SCH (09:03)
[2019-04-28] MEDS: PROTONIX INJ 40 MG VIAL IVP SCH (09:03)
[2019-04-28] MEDS: ZITHROMAX INJ 500 MG VIAL 500 MG in NS 250 ML IV 250 ML IV SCH (09:03)
[2019-04-28] MEDS: NORVASC TAB 5 MG PO SCH (09:03)
[2019-04-28 12:43] VITALS: BP 134/81
== END 2019-04-28 14:40 | disposition home or self-care (01) ==
LOC: ER 21:18 → MED/SURG 21:18
PROVIDERS: ADMIT Family Medicine; ATTEND Internal Medicine
DX: D72.828 Other elevated white blood cell count; R10.84 Generalized abdominal pain; I10 Essential (primary) hypertension; E11.65 Type 2 diabetes mellitus with hyperglycemia; K21.9 Gastro-esophageal reflux disease without esophagitis; Z79.899 Other long term (current) drug therapy; R94.4 Abnormal results of kidney function studies; Z86.39 Personal history of other endocrine, nutritional and metabolic disease; R11.2 Nausea with vomiting, unspecified
CPT/HCPCS: 36415; 74022; 80053; 81001; 82009; 82947; 83036; 83690; 85025; 96360; 96361; 96365; 96367; 96372; 96374; 96375; 99284; A4222; C9113; G0378; J0456; J1100; J1642; J1650; J1815; J2060; J2175; J2405; J2550; J7030; J7050

== ENCOUNTER 2019-06-23 10:56 | Inpatient (IN) ==
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
[2019-06-23] MEDS ORDERED: ZOFRAN TAB 4 MG PO ONE (11:23)
[2019-06-23] MEDS ORDERED: NS 1000 ML 1,000 ML IV ONE ×2 (11:31→13:05)
[2019-06-23] MEDS ORDERED: ZOFRAN INJ 4 MG VIAL IVP ONE (11:31)
[2019-06-23] MEDS ORDERED: NS 1000 ML 1,000 ML ONE ×3 (11:45→14:26)
[2019-06-23] MEDS ORDERED: ZOFRAN INJ 4 MG VIAL ONE (11:46)
[2019-06-23 11:50] LABS: BASOPHILS # (AUTO) 0.1 X10^3/uL (0.0-0.1); BASOPHILS % (AUTO) 0.7 % (0.2-1.0); HEMOGLOBIN 12.9 g/dL (13.5-18.0); LYMPHOCYTES # (AUTO) 1.1 X10^3/uL (1.3-2.9); LYMPHOCYTES % (AUTO) 8.4 % (21.0-51.0); MEAN CORPUSCULAR HEMOGLOBIN 25.2 pg (27.0-34.0); MEAN CORPUSCULAR VOLUME 76.4 fL (80.0-100.0); MEAN PLATELET VOLUME 8.7 fL (7.4-11.0); MONOCYTES # (AUTO) 0.5 x10^3/uL (0.3-0.8); MONOCYTES % (AUTO) 3.3 % (0.0-13.0); NEUTROPHILS % (AUTO) 87.6 % (42.0-75.0); PLATELET COUNT 280 X10^3/uL (150.0-450.0); RED BLOOD COUNT 5.11 X10^6/uL (4.7-6.0); RED CELL DISTRIBUTION WIDTH 15.7 % (11.6-16.5); WHITE BLOOD COUNT 13.6 X10^3/uL (3.6-10.0)
[2019-06-23] MEDS ORDERED: DEMEROL INJ IVP ONE ×2 (11:53→12:44)
[2019-06-23] MEDS ORDERED: DEMEROL INJ ONE ×2 (11:54→14:43)
[2019-06-23 11:57] LABS: HYPOCHROMASIA SLIGHT; PLATELET MORPHOLOGY COMMENT NORMAL (NORMAL)
[2019-06-23 12:02] LABS: ALANINE AMINOTRANSFERASE 21 Units/L (12-78); ALBUMIN 4.3 g/dL (3.4-5.0); ALKALINE PHOSPHATASE 175 Units/L (46-116); ASPARTATE AMINO TRANSFERASE 9 Units/L (15-37); BLOOD UREA NITROGEN 23 mg/dL (7-18); CALCIUM 9.7 mg/dL (8.5-10.1); CARBON DIOXIDE 27.5 mmol/L (21-32); CHLORIDE 95 mmol/L (98-107); COR NA(FOR HYPERGLY) 148 mmol/L (136-145); CREATININE 1.71 mg/dL (0.70-1.30); SODIUM 138 mmol/L (136-145); TOTAL PROTEIN 9.8 g/dL (6.4-8.2); eGFR NON BLACK RACES 46 (>60)
[2019-06-23] MEDS ORDERED: CARDIZEM INJ 50 MG VIAL IVP ONE ×2 (12:27→14:39)
[2019-06-23] MEDS ORDERED: CARDIZEM INJ 50 MG VIAL ONE (12:29)
[2019-06-23] MEDS ORDERED: HumuLIN R SUBCUT ONE (12:50)
[2019-06-23] MEDS ORDERED: HumuLIN R ONE (13:01)
[2019-06-23 13:11] LABS: AMYLASE 70 Units/L (25-115); LIPASE 74 Units/L (73-393)
[2019-06-23] MEDS ORDERED: ROCEPHIN VIAL 1 GRAM 1 G in NS 100 ML IV + SPIKE MINIBAG* 100 ML IV ONE (13:25)
[2019-06-23] MEDS ORDERED: ROCEPHIN VIAL 1 GRAM ONE (13:27)
[2019-06-23] MEDS ORDERED: CARDIZEM INJ 125 MG VIAL ONE (13:36)
[2019-06-23] MEDS ORDERED: NS 100 ML IV 100 ML IV ONE (13:36)
[2019-06-23] MEDS ORDERED: REGLAN INJ 10 MG VIAL IVP ONE (13:43)
[2019-06-23] MEDS: CARDIZEM INJ 125 MG VIAL 125 MG in NS 100 ML IV 100 ML IV PRN (13:44)
[2019-06-23 13:53] LABS: CKMB % 1.2 % (<4); CREATINE KINASE 192 Units/L (39-308); CREATINE KINASE MB 2.2 ng/mL (0-4.0); TROPONIN I < 0.02 ng/mL (0-1.5)
[2019-06-23 14:07] LABS: BILIRUBIN,URINE NEGATIVE (NEGATIVE); BLOOD/HEMOGLOBIN,URINE 4+ (NEGATIVE); GLUCOSE, URINE 4+ (NEGATIVE); KETONES,URINE 3+ (NEGATIVE); LEUKOCYTE ESTERASE ,URINE NEGATIVE (NEGATIVE); NITRITES,URINE NEGATIVE (NEGATIVE); PROTEIN,URINE 3+ (NEGATIVE); UROBILINOGEN,URINE NORMAL (NORMAL)
[2019-06-23] MEDS ORDERED: PHENERGAN INJ 25 MG IM ONE ×2 (14:24→14:27)
[2019-06-23 14:27] LABS: APPEARANCE,URINE CLEAR (CLEAR); BACTERIA,URINE TRACE /HPF (NEGATIVE); COLOR,URINE YELLOW (YELLOW); SQUAMOUS EPITHELIAL CELL,UR RARE /HPF (NEGATIVE)
--- NOTE | 2019-06-23 14:27 | RAD ---
KUBHISTORY: Abdominal painStudy: 2 flat views views of the abdomenComparison:NoneFindings:There is a normal bowel gas pattern.No free air..No abnormal calcifications or abnormal soft tissue shadows. No acute bony abnormalities.IMPRESSION:1. No evidence for acute abdominal pathology.Electronically signed by: RICHIE MOYER (Jun 23, 2019 14:26:31)
[2019-06-23 14:28] LABS: HYALINE CASTS, URINE FEW /LPF (NEGATIVE)
--- NOTE | 2019-06-23 14:28 | RAD ---
CHEST, 1 VIEWHISTORY: CPStudy: Single view of the chest.Comparison:NoneFindings:The cardiomediastinal silhouette is normal.No focal consolidations, pleural effusions or pneumothorax. Osseous structures demonstrate no acute abnormality.IMPRESSION:1. No acute cardiopulmonary process.Electronically signed by: RICHIE MOYER (Jun 23, 2019 14:26:44)
[2019-06-23 14:29] LABS: ABG BASE EXCESS -1.1 mmol/L (-2.0-2.0); ABG HCO3 23.5 mmol/L (22-26)
[2019-06-23 14:30] LABS: ABG ALLEN TEST POS
[2019-06-23] MEDS: NS 1000 ML 1,000 ML IV SCH ×3 (14:30→23:31)
[2019-06-23 14:32] LABS: BLOOD UREA NITROGEN 21 mg/dL (7-18); CALCIUM 8.6 mg/dL (8.5-10.1); CARBON DIOXIDE 24.7 mmol/L (21-32); CHLORIDE 102 mmol/L (98-107); COR NA(FOR HYPERGLY) 150 mmol/L (136-145); CREATININE 1.45 mg/dL (0.70-1.30); SODIUM 143 mmol/L (136-145); eGFR NON BLACK RACES 56 (>60)
[2019-06-23] MEDS: DEMEROL INJ IVP PRN ×2 (14:49→19:50)
[2019-06-23 16:08] VITALS: BMI 26.2
[2019-06-23] MEDS ORDERED: POTASSIUM CHL 40 MEQ/NS 0.45% 500 ML IV PRN (16:43)
[2019-06-23] MEDS ORDERED: KLOR-CON PO PRN (16:43)
[2019-06-23] MEDS ORDERED: POTASSIUM CHLORIDE LIQ 20 MEQ UDC PO PRN (16:43)
[2019-06-23] MEDS ORDERED: MAGNESIUM SULFATE 1 GRAM/100 mL PREMIX 1 GM/100 ML BAG IV PRN (16:43)
[2019-06-23] MEDS ORDERED: MICRO K EXTEN CAP 10 MEQ PO PRN (16:43)
[2019-06-23] MEDS ORDERED: POTASSIUM CHL 60 MEQ/NS 0.45% 500 ML IV PRN (16:43)
[2019-06-23] MEDS: K-RIDER 10 MEQ/NS 100 ML 10 MEQ/100 ML BAG IV PRN (17:45)
[2019-06-23] MEDS: HumuLIN R SC PRN ×2 (18:02→19:59)
[2019-06-23 18:27] LABS: BLOOD UREA NITROGEN 21 mg/dL (7-18); CALCIUM 8.8 mg/dL (8.5-10.1); CARBON DIOXIDE 26.2 mmol/L (21-32); CHLORIDE 102 mmol/L (98-107); COR NA(FOR HYPERGLY) 149 mmol/L (136-145); CREATININE 1.33 mg/dL (0.70-1.30); SODIUM 142 mmol/L (136-145); eGFR NON BLACK RACES > 60 (>60)
[2019-06-23] MEDS ORDERED: SNACK - Diabetic Appropriate PO SCH (20:00)
[2019-06-23] MEDS ORDERED: PHENERGAN INJ 25 MG IM PRN (21:46)
--- NOTE | 2019-06-23 21:46 | DR.H&P ---
H&P - History & Physical for Day of: H&P Date: 06/23/19 - Chief Complaint Chief Complaint: NAUSEA, VOMITING, DIARRHEA, ABDOMINAL PAIN - History of Present Illness History of Present Illness: IS A 48 YEAR OLD PATIENT OF OURS. HE PRES ENTED TO THE HOSPITAL WITH COMPLAINTS OF ABDOMINAL PAIN AND NAUSEA, VOMITING, AND DIARRHEA THAT STARTED THIS MORNING. HE HAS A HISTORY OF GASTROPARESIS, DIABETES, HTN, AND A-FIB. HE REPORTS BEING COMPLIANT WITH ALL OF HIS MEDICATIONS. ON ARRIVAL, VITALS WERE 97.2-149-20-97%-132/95. LABS WERE OBTAINED. ABNORMAL LAB VALUES INCLUDE THE FOLLOWING: WBC 13.6, HGB 12.9, HCT 39.0, CHLORIDE 95, BUN 23, CREATININE 1.71, GLUCOSE 530, AST 9, ALK PHOS 175, TOTAL PROTEIN 9.8, GLOBULIN 5.5. CARDIAC ENZYMES WITHIN NORMAL LIMITS. A URINALYSIS WAS OBTAINED AND REVEALED: WBC 0-2, RBC 5-10, LEUKOCYTES NORMAL, BACTERIA TRACE. ACETONES SMALL. EKG WAS OBTAINED AND REVEALED HR 143. CHEST XRAY REVEALED: NO ACUTE CARDIOPULMONARY PROCESS. KUB REVEALED: NO EVIDENCE FOR ACUTE ABDOMINAL PATHOLOGY. HE WAS GIVEN A CARDIZEM BOLUS AND THEN STARTED ON A CARDIZEM DRIP. HE WAS ALSO GIVEN PHENERGAN 25MG IM X 1, ROCEPHIN 1G IV X 1, HUMULIN R 10 UNITS, DEMEROL 25MG IV X 2, ZOFRAN 4MG IV X 1, AND A NORMAL SALINE BOLUS. HE WAS ADMITTED FOR FURTHER EVALUATION AND TREATMENT OF GASTROPARESIS, NAUSEA AND VOMITING, AND ATRIAL FIBRILLATION. HE WAS PLACED IN THE ICU ON THE CARDIZEM DRIP. HE WAS ALSO STARTED ON NORMAL SALINE AT 125ML/HR, HUMULIN R SLIDING SCALE, AND THE POTASSIUM AND MAGNESIUM PROTOCOLS. WE PLAN TO FOLLOW UP WITH AM LABS AND CONTINUE TO MONITOR. - Past Medical History Past Medical History: Hypertension, Diabetes Additional Medical History: Diabetic Neuropathy, Diabetic Gastroparesis, Hiatal Hernia, Gastric Ulcer, Gall Bladder Disease, Back Pain - Past Surgical History Surgical History: Cholecystectomy, Ortho Surgery, Other Additional Surgical History: Right foot I&D - Family History Family Medical History: Diabetes Mellitus - Social History Does patient currently use any type of tobacco product: No Have you used tobacco products in the last 12 months: No Type of Tobacco Use: None Does any household member use tobacco: No Alcohol Use: None Drug Use: None - Medications Home Medications: codeine Allergy (Verified 04/27/19 00:57) morphine Allergy (Verified 04/27/19 00:57) CONTINUE taking the following medications insulin detemir U-100 [Levemir U-100 Insulin] 50 unit SUBCUT DAILY 06/23/19 [History] - Review of Systems Constitutional: Weakness Eyes: No Symptoms Reported ENT: No Symptoms Reported Respiratory: Shortness of Breath Cardiovascular: Palpitations Gastrointestinal: See HPI, Nausea, Vomiting, Abdominal Pain, Diarrhea Genitourinary: No Symptoms Reported Musculoskeletal: No Symptoms Reported Skin: No Symptoms Reported Neurological: Weakness - Physical Exam Vital Signs: Temperature 97.2 F Pulse Rate [Right Brachial] 137 Pulse Rate 127 Respiratory Rate 15 Blood Pressure [Right Arm] 128/75 Blood Pressure 95/57 O2 Sat by Pulse Oximetry 99 Oriented: Normal Eyes: Normal Ear: Normal Nose: Normal Throat: Normal Respiratory: Diminished Throughout Cardiovascular: Tachycardia. negative: S3, S4, Murmur : Normal Auscultation: Bowel Sounds: Normal Palpation: Normal Tenderness: Diffuse, Mild Skin: Normal Musculoskeletal: Normal Psychiatric: Normal Mood Description: Calm Affect: Normal Speech Pattern: Clear - Assessment/Plan (1) Atrial fibrillation with RVR Status: Acute Plan: ADMIT TO ICU ON CARDIZEM DRIP, BOW MAKER CUSTOM, CONTINUE TO MONTIOR (2) Diabetic gastroparesis Status: Chronic Plan: HUMULIN R SLIDING SCALE, IV ZOFRAN, CONTINUE TO MONITOR (3) Hyperglycemia Status: Acute (4) Abdominal pain Qualifiers: Abdominal location: generalized Qualified Code(s): R10.84 - Generalized abdominal pain Status: Acute (5) Nausea & vomiting Qualifiers: Vomiting type: unspecified Vomiting Intractability: intractable Qualified Code(s): R11.2 - Nausea with vomiting, unspecified Status: Acute Plan: IV ZOFRAN, IM PHENERGAN, CONTINUE TO MONITOR - Allergies Allergies/Adverse Reactions: Allergies Allergy/AdvReac Type Severity Reaction Status Date / Time codeine Allergy Verified 04/27/19 00:57 morphine Allergy Verified 04/27/19 00:57
[2019-06-23 22:00] LABS: BLOOD UREA NITROGEN 18 mg/dL (7-18); CALCIUM 8.6 mg/dL (8.5-10.1); CARBON DIOXIDE 26.1 mmol/L (21-32); CHLORIDE 102 mmol/L (98-107); COR NA(FOR HYPERGLY) 147 mmol/L (136-145); CREATININE 1.32 mg/dL (0.70-1.30); SODIUM 141 mmol/L (136-145); eGFR NON BLACK RACES > 60 (>60)
[2019-06-23] MEDS: ZOFRAN INJ 4 MG VIAL IVP PRN (23:05)
[2019-06-24] MEDS: CARDIZEM INJ 125 MG VIAL 125 MG in NS 100 ML IV 100 ML IV PRN (00:12)
[2019-06-24] MEDS: DEMEROL INJ IVP PRN ×4 (00:51→21:49)
[2019-06-24] MEDS: HumuLIN R SC PRN ×3 (00:56→09:22)
[2019-06-24 02:19] LABS: BLOOD UREA NITROGEN 20 mg/dL (7-18); CALCIUM 8.1 mg/dL (8.5-10.1); CARBON DIOXIDE 28.4 mmol/L (21-32); CHLORIDE 104 mmol/L (98-107); COR NA(FOR HYPERGLY) 149 mmol/L (136-145); CREATININE 1.35 mg/dL (0.70-1.30); SODIUM 142 mmol/L (136-145); eGFR NON BLACK RACES > 60 (>60)
[2019-06-24] MEDS: ZOFRAN INJ 4 MG VIAL IVP PRN ×3 (04:23→21:48)
[2019-06-24] MEDS: NS 1000 ML 1,000 ML IV SCH ×4 (05:20→21:54)
[2019-06-24 05:31] LABS: ALANINE AMINOTRANSFERASE 19 Units/L (12-78); ALBUMIN 3.6 g/dL (3.4-5.0); ALKALINE PHOSPHATASE 153 Units/L (46-116); ASPARTATE AMINO TRANSFERASE 7 Units/L (15-37); BLOOD UREA NITROGEN 20 mg/dL (7-18); CALCIUM 8.2 mg/dL (8.5-10.1); CARBON DIOXIDE 28.1 mmol/L (21-32); CHLORIDE 104 mmol/L (98-107); COR NA(FOR HYPERGLY) 148 mmol/L (136-145); CREATININE 1.21 mg/dL (0.70-1.30); SODIUM 142 mmol/L (136-145); TOTAL PROTEIN 8.6 g/dL (6.4-8.2); eGFR NON BLACK RACES > 60 (>60)
[2019-06-24 05:43] LABS: BASOPHILS % (AUTO) 0.2 % (0.2-1.0); HEMATOCRIT 40.1 % (42.0-54.0); LYMPHOCYTES # (AUTO) 1.2 X10^3/uL (1.3-2.9); LYMPHOCYTES % (AUTO) 7.6 % (21.0-51.0); MEAN CORPUSCULAR HEMOGLOBIN 24.6 pg (27.0-34.0); MEAN CORPUSCULAR HGB CONC 32.4 g/dL (33.0-35.0); MEAN CORPUSCULAR VOLUME 75.8 fL (80.0-100.0); MEAN PLATELET VOLUME 8.5 fL (7.4-11.0); MONOCYTES # (AUTO) 0.8 x10^3/uL (0.3-0.8); NEUTROPHILS # (AUTO) 13.2 x10^3/uL (2.2-4.8); NEUTROPHILS % (AUTO) 87.2 % (42.0-75.0); PLATELET COUNT 292 X10^3/uL (150.0-450.0); RED BLOOD COUNT 5.29 X10^6/uL (4.7-6.0); RED CELL DISTRIBUTION WIDTH 15.7 % (11.6-16.5); WHITE BLOOD COUNT 15.2 X10^3/uL (3.6-10.0)
[2019-06-24] MEDS: K-RIDER 10 MEQ/NS 100 ML 10 MEQ/100 ML BAG IV PRN ×2 (06:31→21:55)
[2019-06-24 06:56] LABS: ANISOCYTOSIS SLIGHT; HYPOCHROMASIA SLIGHT; PLATELET MORPHOLOGY COMMENT NORMAL (NORMAL)
[2019-06-24] MEDS ORDERED: NORCO 10/325 TAB PO PRN (10:43)
[2019-06-24] MEDS ORDERED: CATAPRES-TTS-3 TD SCH (11:00)
[2019-06-24] MEDS ORDERED: NORVASC TAB 5 MG PO SCH (11:00)
[2019-06-24] MEDS: K-DUR TAB 20 MEQ PO SCH (11:24)
[2019-06-24] MEDS: PEPCID TAB 20 MG PO SCH ×2 (11:24→21:06)
[2019-06-24] MEDS: GLUCOTROL PO SCH (11:24)
[2019-06-24] MEDS: CARAFATE PO SCH ×3 (11:24→21:06)
[2019-06-24] MEDS: PROTONIX TAB 40 MG PO SCH ×2 (11:24→21:06)
[2019-06-24] MEDS: CARDIZEM CD 180 MG 24-HR PO SCH (11:25)
[2019-06-24] MEDS: LEVEMIR SC SCH (11:25)
--- NOTE | 2019-06-24 20:43 | PCM.PROG ---
Progress Note - Progress Note for Day of Date of Exam: 06/24/19 - Subjective Subjective: RUMA WAS ADMITTED FOR TREATMENT OF A-FIB, INTRACTABLE NAUSEA AND VOMITING, ABDOMINAL PAIN, HYPERGLYCEMIA, AND DIABETIC GASTROPARESIS. TODAY, HE IS ALERT AND ORIENTED, LYING IN BED ON MORNING ROUNDS. HE CONTINUES WITH COMPLAINTS OF SHORTNESS OF BREATH, ABDOMINAL PAIN, AND NAUSEA. ON EXAMINATION, HEART IS REGULAR IN RATE AND RHYTHM. BIALTERAL LUNGS ARE NOTED WITH DIMINISHED LUNG SOUNDS THROUGHOUT. ABDOMEN IS ROUND, SOFT, AND NON-TEDNER WITH NORMAL BOWEL SOUNDS NOTED IN ALL QUADRANTS. THERE IS A DIABETIC ULCER TO THE RIGHT FOOT AND RIGHT TOE. HIS VITALS THIS MORNING ARE: 98.7-97-13-99%-149/96. LABS WERE OBTAINED. ABNORMAL LAB VALUES INCLUDE THE FOLLOWING: WBC 15.2, HGB 13.0, HCT 40. 1, BUN 20, GLUCOSE 360, CALCIUM 8.2, AST 7, ALK PHOS 153, TOTAL PROTEIN 8.6, GLOBULIN 5.0. BLOOD CULTURES AND WOUND CULTURES ARE PENDING. HE IS CURRENTLY RECEIVING NS AT 125ML/HR , CARDIZEM IV, HUMULIN R SLIDING SCALE, THE POTASSIUM AND MAGNESIUM PROTOCOLS, AND HOME MEDICATIONS WERE RESUMED. TODAY, WE WILL START CARDIZEM CD 180MG PO DAILY AND WEAN THE CARDIZEM DRIP. WE WILL OBTAIN AN ECHO AND UDS. OTHERWISE, WE WILL FOLLOW UP WITH AM LABS AND CHEST XRAY AND CONTINUE TO MONITOR. - Past Medical Family Social History Past Med/Fam/Surg Hx: No changes since H&P Allergies: Allergies codeine Allergy (Verified 04/27/19 00:57) morphine Allergy (Verified 04/27/19 00:57) - Review of Systems ROS: No change since H&P - Vital Signs and I&O's Vital Signs: Temperature 97.2 F Pulse Rate [Right Brachial] 137 Pulse Rate 93 Respiratory Rate 12 Blood Pressure [Right Arm] 128/75 Blood Pressure 157/83 O2 Sat by Pulse Oximetry 99 Intake and Output: Intake & Output 06/22/19 06/23/19 06/24/19 06/25/19 11:59 11:59 11:59 11:59 Intake Total 4136 / 4136 1320 / 1320 Output Total 1600 / 1600 1000 / 1000 Balance 2536 / 2536 320 / 320 - Physical Exam Oriented: Normal Eyes: Normal Ear: Normal Nose: Normal Throat: Normal Respiratory: Generalized, Diminished Cardiovascular: Normal. negative: S3, S4, Murmur : Normal Auscultation: Bowel Sounds: Normal Palpation: Normal Tenderness: Diffuse, Mild Skin: Normal Musculoskeletal: Normal Psychiatric: Normal Mood Description: Calm Affect: Normal Speech Pattern: Clear, Appropriate - Laboratory and Diagnostics Result Diagrams: 06/24/19 04:08 06/24/19 04:08 Labs: 06/23/19 15:00 Foot - Right Gram Stain - Final 06/23/19 15:00 Foot - Right Wound Culture - Preliminary 06/23/19 15:00 Toe - Right Big Gram Stain - Final 06/23/19 15:00 Toe - Right Big Wound Culture - Preliminary Laboratory WBC 15.2 X10^3/uL (3.6-10.0) H 06/24/19 04:08 RBC 5.29 X10^6/uL (4.7-6.0) 06/24/19 04:08 Hgb 13.0 g/dL (13.5-18.0) L 06/24/19 04:08 Hct 40.1 % (42.0-54.0) L 06/24/19 04:08 MCV 75.8 fL (80.0-100.0) L 06/24/19 04:08 MCH 24.6 pg (27.0-34.0) L 06/24/19 04:08 MCHC 32.4 g/dL (33.0-35.0) L 06/24/19 04:08 RDW 15.7 % (11.6-16.5) 06/24/19 04:08 Plt Count 292 X10^3/uL (150.0-450.0) 06/24/19 04:08 Plt Count Comment Adequate (ADEQUATE) 06/24/19 04:08 MPV 8.5 fL (7.4-11.0) 06/24/19 04:08 Neut % (Auto) 87.2 % (42.0-75.0) H 06/24/19 04:08 Lymph % (Auto) 7.6 % (21.0-51.0) L 06/24/19 04:08 Leslie % (Auto) 5.0 % (0.0-13.0) 06/24/19 04:08 Eos % (Auto) 0.0 % (0.9-2.9) L 06/24/19 04:08 Baso % (Auto) 0.2 % (0.2-1.0) 06/24/19 04:08 Neut # (Auto) 13.2 x10^3/uL (2.2-4.8) H 06/24/19 04:08 Lymph # (Auto) 1.2 X10^3/uL (1.3-2.9) L 06/24/19 04:08 Leslie # (Auto) 0.8 x10^3/uL (0.3-0.8) 06/24/19 04:08 Eos # (Auto) 0.0 x10^3/uL (0.0-0.2) 06/24/19 04:08 Baso # (Auto) 0.0 X10^3/uL (0.0-0.1) 06/24/19 04:08 Absolute Nucleated RBC 0.0 /100WBC 06/24/19 04:08 Plt Morphology Comment Normal (NORMAL) 06/24/19 04:08 RBC Morphology Abnormal (NORMAL) 06/24/19 04:08 Hypochromasia Slight A 06/24/19 04:08 Anisocytosis Slight A 06/24/19 04:08 Sample Site Rra 06/23/19 14:25 ABG pH 7.400 (7.35-7.45) 06/23/19 14:25 ABG pCO2 38.0 mmHg (35.0-45.0) 06/23/19 14:25 ABG pO2 105.0 mmHg (80.0-100.0) H 06/23/19 14:25 ABG HCO3 23.5 mmol/L (22-26) 06/23/19 14:25 ABG O2 Saturation 98.0 % (90-100) 06/23/19 14:25 ABG Base Excess -1.1 mmol/L (-2.0-2.0) 06/23/19 14:25 Wang Test Pos 06/23/19 14:25 A-a Gradient -3.0 mmHg 06/23/19 14:25 FiO2 21.0 06/23/19 14:25 Blood Gas Comments Pt toll well eb 06/23/19 14:25 Sodium 142 mmol/L (136-145) 06/24/19 04:08 Corrected Sodium 148 mmol/L (136-145) H 06/24/19 04:08 Potassium 3.7 mmol/L (3.5-5.1) 06/24/19 04:08 Chloride 104 mmol/L (98-107) 06/24/19 04:08 Carbon Dioxide 28.1 mmol/L (21-32) 06/24/19 04:08 BUN 20 mg/dL (7-18) H 06/24/19 04:08 Creatinine 1.21 mg/dL (0.70-1.30) 06/24/19 04:08 Est GFR (MDRD) Af Amer > 60 (>60) 06/24/19 04:08 Est GFR (MDRD) Non-Af > 60 (>60) 06/24/19 04:08 Glucose 360 mg/dL (65-99) H 06/24/19 04:08 POC Glucose (mg/dL) 130 mg/dL (65-99) H 06/24/19 16:29 Calcium 8.2 mg/dL (8.5-10.1) L 06/24/19 04:08 Corrected Calcium TNP 06/24/19 04:08 Magnesium 2.9 mg/dL (1.7-2.9) 06/24/19 04:08 Total Bilirubin 0.30 mg/dL (0.2-1.0) 06/24/19 04:08 AST 7 Units/L (15-37) L 06/24/19 04:08 ALT 19 Units/L (12-78) 06/24/19 04:08 Alkaline Phosphatase 153 Units/L (46-116) H 06/24/19 04:08 Creatine Kinase 192 Units/L (39-308) 06/23/19 11:39 CK-MB (CK-2) 2.2 ng/mL (0-4.0) 06/23/19 11:39 CK/CKMB % Calc 1.2 % (<4) 06/23/19 11:39 Troponin I < 0.02 ng/mL (0-1.5) 06/23/19 11:39 Total Protein 8.6 g/dL (6.4-8.2) H 06/24/19 04:08 Albumin 3.6 g/dL (3.4-5.0) 06/24/19 04:08 Globulin 5.0 g/dL (2.5-4.5) H 06/24/19 04:08 Albumin/Globulin Ratio 0.7 Ratio (1.1-2.1) L 06/24/19 04:08 Amylase 70 Units/L (25-115) 06/23/19 11:39 Lipase 74 Units/L (73-393) 06/23/19 11:39 Specimen Type Clean catch urine 06/23/19 13:48 Urine Color Yellow (YELLOW) 06/23/19 13:48 Urine Appearance Clear (CLEAR) 06/23/19 13:48 Urine pH 6.0 (5.0 - 8.0) 06/23/19 13:48 Ur Specific [place] 1.015 (1.000-1.030) 06/23/19 13:48 Urine Protein 3+ (NEGATIVE) 06/23/19 13:48 Urine Glucose (UA) 4+ (NEGATIVE) 06/23/19 13:48 Urine Ketones 3+ (NEGATIVE) 06/23/19 13:48 Urine Occult Blood 4+ (NEGATIVE) 06/23/19 13:48 Urine Nitrite Negative (NEGATIVE) 06/23/19 13:48 Urine Bilirubin Negative (NEGATIVE) 06/23/19 13:48 Urine Urobilinogen Normal (NORMAL) 06/23/19 13:48 Ur Leukocyte Esterase Negative (NEGATIVE) 06/23/19 13:48 Urine RBC 5-10 /HPF (0-3) A 06/23/19 13:48 Urine WBC 0-2 /HPF (0-5) 06/23/19 13:48 Ur Squamous Epith Cells Rare /HPF (NEGATIVE) 06/23/19 13:48 Urine Bacteria Trace /HPF (NEGATIVE) 06/23/19 13:48 Hyaline Casts Few /LPF (NEGATIVE) 06/23/19 13:48 Ur Culture Indicated? No/not indicated 06/23/19 13:48 Urine Opiates Screen Negative (NEG=<300) 06/24/19 12:00 Urine Methadone Screen Negative (NEG=<300) 06/24/19 12:00 Ur Barbiturates Screen Negative (NEG=<200) 06/24/19 12:00 Ur Phencyclidine Scrn Negative (NEG=<25) 06/24/19 12:00 Ur Amphetamines Screen Negative (NEG=<1000) 06/24/19 12:00 U Benzodiazepines Scrn Negative (NEG=<200) 06/24/19 12:00 Urine Cocaine Screen Negative (NEG=<300) 06/24/19 12:00 U Marijuana (THC) Screen Negative (NEG=<50) 06/24/19 12:00 Acetone, Semi-Quant Small (NEGATIVE) H 06/23/19 11:39 - Plan (1) Atrial fibrillation with RVR Status: Acute Plan: CARDIZEM CD 180MG PO DAILY, WEAN DRIP, CERTIFIED MEDICAL CODING SPECIALIST, CONTINUE TO MONTIOR (2) Diabetic gastroparesis Status: Chronic Plan: HUMULIN R SLIDING SCALE, IV ZOFRAN, CONTINUE TO MONITOR (3) Hyperglycemia Status: Acute (4) Abdominal pain Status: Acute Qualifiers: Abdominal location: generalized Qualified Code(s): R10.84 - Generalized abdominal pain (5) Nausea & vomiting Status: Acute Qualifiers: Vomiting type: unspecified Vomiting Intractability: intractable Qualified Code(s): R11.2 - Nausea with vomiting, unspecified Plan: IV ZOFRAN, IM PHENERGAN, CONTINUE TO MONITOR
[2019-06-24] MEDS: SNACK - Diabetic Appropriate PO SCH (20:45)
[2019-06-24] MEDS: REMERON PO SCH (21:06)
[2019-06-24] MEDS: COZAAR PO SCH (21:06)
[2019-06-24] MEDS: RESTORIL CAP 30 MG PO SCH (21:07)
[2019-06-25] MEDS: ZOFRAN INJ 4 MG VIAL IVP PRN ×3 (02:28→14:54)
[2019-06-25] MEDS: NS 1000 ML 1,000 ML IV SCH ×5 (02:30→23:00)
[2019-06-25] MEDS: DEMEROL INJ IVP PRN ×2 (03:20→14:54)
[2019-06-25 05:40] LABS: BASOPHILS % (AUTO) 0.2 % (0.2-1.0); EOSINOPHILS % (AUTO) 0.2 % (0.9-2.9); HEMATOCRIT 34.1 % (42.0-54.0); HEMOGLOBIN 11.3 g/dL (13.5-18.0); LYMPHOCYTES # (AUTO) 1.4 X10^3/uL (1.3-2.9); LYMPHOCYTES % (AUTO) 13.4 % (21.0-51.0); MEAN CORPUSCULAR HEMOGLOBIN 25.5 pg (27.0-34.0); MEAN CORPUSCULAR HGB CONC 33.2 g/dL (33.0-35.0); MEAN CORPUSCULAR VOLUME 76.8 fL (80.0-100.0); MEAN PLATELET VOLUME 9.1 fL (7.4-11.0); MONOCYTES # (AUTO) 0.6 x10^3/uL (0.3-0.8); NEUTROPHILS # (AUTO) 8.3 x10^3/uL (2.2-4.8); NEUTROPHILS % (AUTO) 80.2 % (42.0-75.0); PLATELET COUNT 257 X10^3/uL (150.0-450.0); RED BLOOD COUNT 4.44 X10^6/uL (4.7-6.0); RED CELL DISTRIBUTION WIDTH 15.8 % (11.6-16.5); WHITE BLOOD COUNT 10.4 X10^3/uL (3.6-10.0)
[2019-06-25 05:54] LABS: ALANINE AMINOTRANSFERASE 17 Units/L (12-78); ALBUMIN 2.9 g/dL (3.4-5.0); ALKALINE PHOSPHATASE 120 Units/L (46-116); ASPARTATE AMINO TRANSFERASE 12 Units/L (15-37); BLOOD UREA NITROGEN 15 mg/dL (7-18); CALCIUM 7.3 mg/dL (8.5-10.1); CARBON DIOXIDE 27.6 mmol/L (21-32); CHLORIDE 106 mmol/L (98-107); COR CA(FOR HYPOALB) 8.2 mg/dL (8.5-10.1); CREATININE 0.91 mg/dL (0.70-1.30); SODIUM 141 mmol/L (136-145); TOTAL PROTEIN 7.1 g/dL (6.4-8.2); eGFR NON BLACK RACES > 60 (>60)
[2019-06-25] MEDS ORDERED: NORMODYNE INJ 20 MG VIAL IV PRN (06:03)
[2019-06-25] MEDS ORDERED: NORMODYNE INJ 100 MG VIAL ONE (06:06)
[2019-06-25 06:13] LABS: ANISOCYTOSIS SLIGHT; HYPOCHROMASIA SLIGHT; PLATELET MORPHOLOGY COMMENT NORMAL (NORMAL)
[2019-06-25] MEDS: CARAFATE PO SCH ×4 (06:17→20:41)
[2019-06-25] MEDS: K-RIDER 10 MEQ/NS 100 ML 10 MEQ/100 ML BAG IV PRN ×2 (07:01→08:51)
[2019-06-25] MEDS: PEPCID TAB 20 MG PO SCH ×2 (08:52→20:41)
[2019-06-25] MEDS: GLUCOTROL PO SCH (08:53)
[2019-06-25] MEDS: K-DUR TAB 20 MEQ PO SCH (08:53)
[2019-06-25] MEDS: CARDIZEM CD 180 MG 24-HR PO SCH (08:53)
[2019-06-25] MEDS: PROTONIX TAB 40 MG PO SCH ×2 (08:53→20:41)
[2019-06-25] MEDS: LEVEMIR SC SCH (08:54)
[2019-06-25] MEDS ORDERED: CARDIZEM CD 120 MG 24-HR PO NR (11:00)
[2019-06-25] MEDS ORDERED: PHENERGAN TAB 25 MG PO PRN (11:16)
[2019-06-25] MEDS: K-DUR TAB 20 MEQ PO PRN (13:11)
[2019-06-25] MEDS: HumuLIN R SC PRN ×3 (13:13→20:40)
[2019-06-25] MEDS ORDERED: HYDROGEN PEROXIDE 3% ONE (13:55)
[2019-06-25] MEDS ORDERED: NS IRRIGATION 500 ML IR ONE (13:58)
[2019-06-25] MEDS ORDERED: FORTAZ or TAZICEF VIAL INJ 1 G in NS 100 ML IV + SPIKE MINIBAG* 100 ML IV SCH (14:00)
[2019-06-25] MEDS ORDERED: VANCOMYCIN HCL 1 G in NS 250 ML IV 250 ML IV SCH (14:00)
[2019-06-25] MEDS: LEVAQUIN PREMIX IV 750 MG 750 MG/150 ML BAG IV SCH (14:53)
[2019-06-25] MEDS: SNACK - Diabetic Appropriate PO SCH (19:45)
[2019-06-25] MEDS: COZAAR PO SCH (20:41)
[2019-06-25] MEDS: REMERON PO SCH (20:42)
[2019-06-25] MEDS: RESTORIL CAP 30 MG PO SCH (20:42)
--- NOTE | 2019-06-25 21:01 | PCM.PROG ---
Progress Note - Progress Note for Day of Date of Exam: 06/25/19 - Subjective Subjective: WAS ADMITTED FOR TREATMENT OF A-FIB, INTRACTABLE NAUSEA AND VOMITING, ABDOMINAL PAIN, HYPERGLYCEMIA, AND DIABETIC GASTROPARESIS. TODAY, HE IS ALERT AND ORIENTED, LYING IN BED ON MORNING ROUNDS. HE CONTINUES WITH COMPLAINTS OF SHORTNESS OF BREATH, ABDOMINAL PAIN, AND NAUSEA. ON EXAMINATION, HE CONTINUES TO BE IN ATRIAL FIBRILLATION, HOWEVER, RATE IS CONTROLLED. BILATERAL LUNGS ARE NOTED WITH DIMINISHED LUNG SOUNDS THROUGHOUT. ABDOMEN IS ROUND, SOFT, AND NON-TEDNER WITH NORMAL BOWEL SOUNDS NOTED IN ALL QUADRANTS. THERE IS A DIABETIC ULCER TO THE RIGHT FOOT AND RIGHT TOE. NO DRAINAGE NOTED THIS MORNING. HIS VITALS THIS MORNING ARE: 97.3-92-15-98%-162/84. LABS WERE OBTAINED. ABNORMAL LAB VALUES INCLUDE THE FOLLOWING: WBC 10.4, RBC 4.44, HGB 11.3, HCT 34.1, POTASSIUM 3.3, GLUCOSE 104, CALCIUM 7.3, AST 12, ALK PHOS 120, ALBUMIN 2.9. BLOOD CULTURES AND WOUND CULTURES ARE PENDING. HE IS CURRENTLY RECEIVING NS AT 125ML/HR , CARDIZEM CD 180MG PO DAILY, HUMULIN R SLIDING SCALE, THE POTASSIUM AND MAGNESIUM PROTOCOLS, AND HOME MEDICATIONS WERE RESUMED. TODAY, WE WILL INCREASE CARDIZEM TO 240MG PO DAILY. WE WILL CONSULT WITH FOR ULCERS. WE WILL START VANCOMYCIN, PHARMACY TO DOSE. WE WILL ALSO OBTAIN SEGMENTAL BLOOD PRESSURES. OTHERWISE, WE WILL FOLLOW UP WITH AM LABS AND CHEST XRAY AND CONTINUE TO MONITOR. - Past Medical Family Social History Past Med/Fam/Surg Hx: No changes since H&P Allergies: Allergies codeine Allergy (Verified 04/27/19 00:57) morphine Allergy (Verified 04/27/19 00:57) - Review of Systems ROS: No change since H&P - Vital Signs and I&O's Vital Signs: Temperature 97.5 F Pulse Rate [Right Brachial] 75 Pulse Rate 112 Respiratory Rate 18 Blood Pressure [Right Arm] 173/97 Blood Pressure 143/85 O2 Sat by Pulse Oximetry 98 Intake and Output: Intake & Output 06/23/19 06/24/19 06/25/19 06/26/19 11:59 11:59 11:59 11:59 Intake Total 4136 / 4136 3395 / 3395 2225 / 2225 Output Total 1600 / 1600 2200 / 2200 2200 / 2200 Balance 2536 / 2536 1195 / 1195 - Physical Exam Oriented: Normal Eyes: Normal Ear: Normal Nose: Normal Throat: Normal Respiratory: Generalized, Diminished Cardiovascular: Normal. negative: S3, S4, Murmur : Normal Auscultation: Bowel Sounds: Normal Tenderness: Diffuse, Mild Skin: Normal Musculoskeletal: Normal Psychiatric: Normal Mood Description: Calm Affect: Normal Speech Pattern: Clear, Appropriate - Laboratory and Diagnostics Result Diagrams: 06/25/19 04:16 06/25/19 11:56 Labs: 06/23/19 15:00 Toe - Right Big Gram Stain - Final 06/23/19 15:00 Toe - Right Big Wound Culture - Final Strep Agalactiae - (Group B) 06/23/19 15:00 Foot - Right Gram Stain - Final 06/23/19 15:00 Foot - Right Wound Culture - Preliminary Laboratory WBC 10.4 X10^3/uL (3.6-10.0) H 06/25/19 04:16 RBC 4.44 X10^6/uL (4.7-6.0) L 06/25/19 04:16 Hgb 11.3 g/dL (13.5-18.0) L 06/25/19 04:16 Hct 34.1 % (42.0-54.0) L 06/25/19 04:16 MCV 76.8 fL (80.0-100.0) L 06/25/19 04:16 MCH 25.5 pg (27.0-34.0) L 06/25/19 04:16 MCHC 33.2 g/dL (33.0-35.0) 06/25/19 04:16 RDW 15.8 % (11.6-16.5) 06/25/19 04:16 Plt Count 257 X10^3/uL (150.0-450.0) 06/25/19 04:16 Plt Count Comment Adequate (ADEQUATE) 06/25/19 04:16 MPV 9.1 fL (7.4-11.0) 06/25/19 04:16 Neut % (Auto) 80.2 % (42.0-75.0) H 06/25/19 04:16 Lymph % (Auto) 13.4 % (21.0-51.0) L 06/25/19 04:16 Wallace % (Auto) 6.0 % (0.0-13.0) 06/25/19 04:16 Eos % (Auto) 0.2 % (0.9-2.9) L 06/25/19 04:16 Baso % (Auto) 0.2 % (0.2-1.0) 06/25/19 04:16 Neut # (Auto) 8.3 x10^3/uL (2.2-4.8) H 06/25/19 04:16 Lymph # (Auto) 1.4 X10^3/uL (1.3-2.9) 06/25/19 04:16 [place] # (Auto) 0.6 x10^3/uL (0.3-0.8) 06/25/19 04:16 Eos # (Auto) 0.0 x10^3/uL (0.0-0.2) 06/25/19 04:16 Baso # (Auto) 0.0 X10^3/uL (0.0-0.1) 06/25/19 04:16 Absolute Nucleated RBC 0.1 /100WBC 06/25/19 04:16 Plt Morphology Comment Normal (NORMAL) 06/25/19 04:16 RBC Morphology Abnormal (NORMAL) 06/25/19 04:16 Hypochromasia Slight A 06/25/19 04:16 Anisocytosis Slight A 06/25/19 04:16 Sample Site Rra 06/23/19 14:25 ABG pH 7.400 (7.35-7.45) 06/23/19 14:25 ABG pCO2 38.0 mmHg (35.0-45.0) 06/23/19 14:25 ABG pO2 105.0 mmHg (80.0-100.0) H 06/23/19 14:25 ABG HCO3 23.5 mmol/L (22-26) 06/23/19 14:25 ABG O2 Saturation 98.0 % (90-100) 06/23/19 14:25 ABG Base Excess -1.1 mmol/L (-2.0-2.0) 06/23/19 14:25 Wang Test Pos 06/23/19 14:25 A-a Gradient -3.0 mmHg 06/23/19 14:25 FiO2 21.0 06/23/19 14:25 Blood Gas Comments Pt toll well eb 06/23/19 14:25 Sodium 141 mmol/L (136-145) 06/25/19 04:16 Corrected Sodium TNP 06/25/19 04:16 Potassium 3.3 mmol/L (3.5-5.1) L 06/25/19 11:56 Chloride 106 mmol/L (98-107) 06/25/19 04:16 Carbon Dioxide 27.6 mmol/L (21-32) 06/25/19 04:16 BUN 15 mg/dL (7-18) 06/25/19 04:16 Creatinine 0.91 mg/dL (0.70-1.30) 06/25/19 04:16 Est GFR (MDRD) Af Amer > 60 (>60) 06/25/19 04:16 Est GFR (MDRD) Non-Af > 60 (>60) 06/25/19 04:16 Glucose 104 mg/dL (65-99) H 06/25/19 04:16 POC Glucose (mg/dL) 176 mg/dL (65-99) H 06/25/19 20:05 Calcium 7.3 mg/dL (8.5-10.1) L 06/25/19 04:16 Corrected Calcium 8.2 mg/dL (8.5-10.1) L 06/25/19 04:16 Magnesium 2.2 mg/dL (1.7-2.9) 06/25/19 04:16 Total Bilirubin 0.30 mg/dL (0.2-1.0) 06/25/19 04:16 AST 12 Units/L (15-37) L 06/25/19 04:16 ALT 17 Units/L (12-78) 06/25/19 04:16 Alkaline Phosphatase 120 Units/L (46-116) H 06/25/19 04:16 Creatine Kinase 192 Units/L (39-308) 06/23/19 11:39 CK-MB (CK-2) 2.2 ng/mL (0-4.0) 06/23/19 11:39 CK/CKMB % Calc 1.2 % (<4) 06/23/19 11:39 Troponin I < 0.02 ng/mL (0-1.5) 06/23/19 11:39 Total Protein 7.1 g/dL (6.4-8.2) 06/25/19 04:16 Albumin 2.9 g/dL (3.4-5.0) L 06/25/19 04:16 Globulin 4.2 g/dL (2.5-4.5) 06/25/19 04:16 Albumin/Globulin Ratio 0.7 Ratio (1.1-2.1) L 06/25/19 04:16 Amylase 70 Units/L (25-115) 06/23/19 11:39 Lipase 74 Units/L (73-393) 06/23/19 11:39 Specimen Type Clean catch urine 06/23/19 13:48 Urine Color Yellow (YELLOW) 06/23/19 13:48 Urine Appearance Clear (CLEAR) 06/23/19 13:48 Urine pH 6.0 (5.0 - 8.0) 06/23/19 13:48 Ur Specific [place] 1.015 (1.000-1.030) 06/23/19 13:48 Urine Protein 3+ (NEGATIVE) 06/23/19 13:48 Urine Glucose (UA) 4+ (NEGATIVE) 06/23/19 13:48 Urine Ketones 3+ (NEGATIVE) 06/23/19 13:48 Urine Occult Blood 4+ (NEGATIVE) 06/23/19 13:48 Urine Nitrite Negative (NEGATIVE) 06/23/19 13:48 Urine Bilirubin Negative (NEGATIVE) 06/23/19 13:48 Urine Urobilinogen Normal (NORMAL) 06/23/19 13:48 Ur Leukocyte Esterase Negative (NEGATIVE) 06/23/19 13:48 Urine RBC 5-10 /HPF (0-3) A 06/23/19 13:48 Urine WBC 0-2 /HPF (0-5) 06/23/19 13:48 Ur Squamous Epith Cells Rare /HPF (NEGATIVE) 06/23/19 13:48 Urine Bacteria Trace /HPF (NEGATIVE) 06/23/19 13:48 Hyaline Casts Few /LPF (NEGATIVE) 06/23/19 13:48 Ur Culture Indicated? No/not indicated 06/23/19 13:48 Urine Opiates Screen Negative (NEG=<300) 06/24/19 12:00 Urine Methadone Screen Negative (NEG=<300) 06/24/19 12:00 Ur Barbiturates Screen Negative (NEG=<200) 06/24/19 12:00 Ur Phencyclidine Scrn Negative (NEG=<25) 06/24/19 12:00 Ur Amphetamines Screen Negative (NEG=<1000) 06/24/19 12:00 U Benzodiazepines Scrn Negative (NEG=<200) 06/24/19 12:00 Urine Cocaine Screen Negative (NEG=<300) 06/24/19 12:00 U Marijuana (THC) Screen Negative (NEG=<50) 06/24/19 12:00 Acetone, Semi-Quant Small (NEGATIVE) H 06/23/19 11:39 - Plan (1) Atrial fibrillation with RVR Status: Acute Plan: CARDIZEM CD 180MG PO DAILY, WEAN DRIP, AFFIRMATIVE ACTION SPECIALIST, CONTINUE TO MONTIOR (2) Diabetic gastroparesis Status: Chronic Plan: HUMULIN R SLIDING SCALE, IV ZOFRAN, CONTINUE TO MONITOR (3) Hyperglycemia Status: Acute (4) Abdominal pain Status: Acute Qualifiers: Abdominal location: generalized Qualified Code(s): R10.84 - Generalized abdominal pain (5) Nausea & vomiting Status: Acute Qualifiers: Vomiting type: unspecified Vomiting Intractability: intractable Qualified Code(s): R11.2 - Nausea with vomiting, unspecified Plan: IV ZOFRAN, IM PHENERGAN, CONTINUE TO MONITOR
[2019-06-26] MEDS: HumuLIN R SC PRN (00:31)
[2019-06-26] MEDS: DEMEROL INJ IVP PRN (04:22)
[2019-06-26] MEDS: NS 1000 ML 1,000 ML IV SCH (05:40)
[2019-06-26] MEDS: CARAFATE PO SCH (05:41)
[2019-06-26 06:07] LABS: BASOPHILS % (AUTO) 0.3 % (0.2-1.0); EOSINOPHILS % (AUTO) 0.6 % (0.9-2.9); HEMATOCRIT 30.9 % (42.0-54.0); LYMPHOCYTES # (AUTO) 1.8 X10^3/uL (1.3-2.9); LYMPHOCYTES % (AUTO) 31.7 % (21.0-51.0); MEAN CORPUSCULAR HEMOGLOBIN 24.8 pg (27.0-34.0); MEAN CORPUSCULAR HGB CONC 32.4 g/dL (33.0-35.0); MEAN CORPUSCULAR VOLUME 76.5 fL (80.0-100.0); MEAN PLATELET VOLUME 7.8 fL (7.4-11.0); MONOCYTES # (AUTO) 0.6 x10^3/uL (0.3-0.8); MONOCYTES % (AUTO) 9.9 % (0.0-13.0); NEUTROPHILS # (AUTO) 3.3 x10^3/uL (2.2-4.8); NEUTROPHILS % (AUTO) 57.5 % (42.0-75.0); PLATELET COUNT 227 X10^3/uL (150.0-450.0); RED BLOOD COUNT 4.04 X10^6/uL (4.7-6.0); RED CELL DISTRIBUTION WIDTH 15.8 % (11.6-16.5); WHITE BLOOD COUNT 5.8 X10^3/uL (3.6-10.0)
[2019-06-26 06:29] LABS: ALANINE AMINOTRANSFERASE 22 Units/L (12-78); ALBUMIN 2.4 g/dL (3.4-5.0); ALKALINE PHOSPHATASE 104 Units/L (46-116); ASPARTATE AMINO TRANSFERASE 13 Units/L (15-37); BLOOD UREA NITROGEN 15 mg/dL (7-18); CALCIUM 6.6 mg/dL (8.5-10.1); CARBON DIOXIDE 27.2 mmol/L (21-32); CHLORIDE 108 mmol/L (98-107); COR CA(FOR HYPOALB) 7.9 mg/dL (8.5-10.1); CREATININE 1.08 mg/dL (0.70-1.30); SODIUM 142 mmol/L (136-145); eGFR NON BLACK RACES > 60 (>60)
[2019-06-26 06:31] LABS: HYPOCHROMASIA SLIGHT; MICROCYTOSIS SLIGHT; PLATELET MORPHOLOGY COMMENT NORMAL (NORMAL)
[2019-06-26] MEDS: K-DUR TAB 20 MEQ PO PRN (06:37)
[2019-06-26] MEDS: GLUCOTROL PO SCH (08:36)
[2019-06-26] MEDS: K-DUR TAB 20 MEQ PO SCH (08:36)
[2019-06-26] MEDS: LEVAQUIN PREMIX IV 750 MG 750 MG/150 ML BAG IV SCH (08:37)
[2019-06-26] MEDS: LEVEMIR SC SCH (08:37)
[2019-06-26] MEDS: PROTONIX TAB 40 MG PO SCH (08:38)
[2019-06-26] MEDS: PEPCID TAB 20 MG PO SCH (08:38)
[2019-06-26] MEDS ORDERED: CARDIZEM CD 240 MG 24-HR PO SCH (09:00)
[2019-06-26 11:48] VITALS: BP 130/68
[2019-06-26] MEDS ORDERED: PHARMACY COMMENT IV NR (12:30)
[2019-06-26] MEDS ORDERED: COLACE CAP 100 MG PO SCH (21:00)
== END 2019-06-26 11:55 | disposition home or self-care (01) | DRG 310 ==
LOC: ER 11:02 → ICU 13:46
PROVIDERS: ADMIT Internal Medicine; ATTEND Internal Medicine
DX: B95.1 Streptococcus, group B, as the cause of diseases classified elsewhere; E11.43 Type 2 diabetes mellitus with diabetic autonomic (poly)neuropathy; R10.84 Generalized abdominal pain; L97.519 Non-pressure chronic ulcer of other part of right foot with unspecified severity; E11.65 Type 2 diabetes mellitus with hyperglycemia; K31.84 Gastroparesis; E11.621 Type 2 diabetes mellitus with foot ulcer; I48.91 Unspecified atrial fibrillation; B96.89 Other specified bacterial agents as the cause of diseases classified elsewhere; R11.2 Nausea with vomiting, unspecified; R94.31 Abnormal electrocardiogram [ECG] [EKG]; R06.02 Shortness of breath
CPT/HCPCS: 36415; 36600; 71010; 71045; 74000; 74018; 80048; 80053; 80307; 81001; 82009; 82150; 82550; 82553; 82803; 83690; 83735; 84132; 84484; 85025; 87070; 87075; 87076; 87077; 87186; 87205; 93005; 93306; 96365; 96367; 96374; 96375; 99285; A4222; Q0169; G0434; J0696; J0713; J1642; J1815; J1956; J2175; J2405; J2550; J3475; J3480; J3490; J7030; J7050

== ENCOUNTER 2019-07-30 15:23 | Inpatient (IN) ==
[2019-07-30] MEDS ORDERED: HumuLIN R ONE ×2 (15:28→16:58)
--- NOTE | 2019-07-30 15:31 | DR.HYPOGLY ---
HPI - Time Seen Time seen: 15:28 - Complaint Chief Complaint Doctors Comments: Patient has been sick for 3 days with vomiting, lethargic altered mental status.EMS started IVF and FSBS to high to read. Hx of diabetes. - Nurses notes reviewed Nurses Notes Review: Yes - Source History Provided: Family Member, EMS - Mode of Arrival Mode of Arrival: Stretcher - Timing Came on: Gradually - Duration Duration: Constant How lon Duration: Days - Context Atkins: Confused Symptoms: Shaky, Sweaty, Slurred speech History of: Diabetes, Hyperglycemic episodes - Modifying factors Improves: Nothing - Associated signs and symptoms Associated signs and symptoms: Vomiting PMH - PMH Past Medical History: Hypertension, Diabetes Past Surgical History: Yes Surgical History: Cholecystectomy, Ortho Surgery, Other - Family History Family Medical History: Diabetes Mellitus - Social History Do you use any recreational Drugs:: No - infectious screening Isolation: Standard ROS - Review of Systems Constitutional: Weakness Eyes: No Symptoms Reported ENTM: No Symptoms Reported Respiratoy: No Symptoms Reported Cardiovascular: No Symptoms Reported Gastrointestinal/Abdominal: Nausea, Vomiting Genitourinary: No Symptoms Reported Neurological: No Symptoms Reported Musculoskeletal: No Symptoms Reported Integumentary: No Symptoms Reported Hematologic/Lymphatic: No Symptoms Reported Endocrine: No Symptoms Reported Psychiatric: Depression All Other Systems: Reviewed and Negative PE - General Limitations: Altered Mental Status General Appearance: In No Apparent Distress, Lethargic - Eyes Eye exam: Normal Appearance, EOMI Pupils: Regular, Round: Bilateral, Reactive: Bilateral Sclera/Conjunctival: Normal Inspection: Bilateral - ENT ENT Exam: Mucous Membranes Dry Nose Exam: Normal Nose Exam Mouth Exam: Normal Inspection Throat Exam: Normal Inspection - Neck Neck Exam: Normal Inspection, Full ROM, Trachea Midline - Chest Chest Inspection: Normal Inspection - Respiratory Respiratory Exam: Normal Lung Sounds Bilat. negative: Respiratory Distress Respiratory Exam: Bilateral Clear to Auscultation - Cardiovascular Cardiovascular Exam: Tachycardia - Abdominal Exam Abdominal Exam: Normal Inspection - Extremities Extremities Exam: Normal Inspection - Back Back Exam: Normal Inspection - Neurologic Neurological Exam: Alert, Oriented X3, CN II-XII Intact Cerebellar Function: Other (not tested) - Psychiatric Psychiatric Exam: Depressed - Skin Skin Exam: Intact, Normal Color - Vital Signs Vitals: Temperature 97.4 F Pulse Rate 110 Respiratory Rate 20 Blood Pressure [Right Arm] 173/97 Blood Pressure [Left Arm] 114/69 Blood Pressure 126/82 O2 Sat by Pulse Oximetry 99 ROR - Labs Reviewed Result Diagrams: 07/30/19 16:15 07/30/19 16:15 - XRAY XRAY Interpreted by: Radiologist - Labs Reviewed Laboratory: WBC 18.3 X10^3/uL (3.6-10.0) H 07/30/19 16:15 RBC 5.49 X10^6/uL (4.7-6.0) 07/30/19 16:15 Hgb 13.7 g/dL (13.5-18.0) 07/30/19 16:15 Hct 43.4 % (42.0-54.0) 07/30/19 16:15 MCV 79.1 fL (80.0-100.0) L 07/30/19 16:15 MCH 24.9 pg (27.0-34.0) L 07/30/19 16:15 MCHC 31.4 g/dL (33.0-35.0) L 07/30/19 16:15 RDW 16.7 % (11.6-16.5) H 07/30/19 16:15 Plt Count 311 X10^3/uL (150.0-450.0) 07/30/19 16:15 Plt Count Comment Adequate (ADEQUATE) 07/30/19 16:15 MPV 9.4 fL (7.4-11.0) 07/30/19 16:15 Neut % (Auto) 90.5 % (42.0-75.0) H 07/30/19 16:15 Lymph % (Auto) 5.8 % (21.0-51.0) L 07/30/19 16:15 [place] % (Auto) 3.3 % (0.0-13.0) 07/30/19 16:15 Eos % (Auto) 0.1 % (0.9-2.9) L 07/30/19 16:15 Baso % (Auto) 0.3 % (0.2-1.0) 07/30/19 16:15 Neut # (Auto) 16.5 x10^3/uL (2.2-4.8) H 07/30/19 16:15 Lymph # (Auto) 1.1 X10^3/uL (1.3-2.9) L 07/30/19 16:15 [place] # (Auto) 0.6 x10^3/uL (0.3-0.8) 07/30/19 16:15 Eos # (Auto) 0.0 x10^3/uL (0.0-0.2) 07/30/19 16:15 Baso # (Auto) 0.1 X10^3/uL (0.0-0.1) 07/30/19 16:15 Absolute Nucleated RBC 0.0 /100WBC 07/30/19 16:15 Total Counted 100 07/30/19 16:15 Neutrophils % (Manual) 87 % (39-76) H 07/30/19 16:15 Band Neutrophils % 1 % (0-10) 07/30/19 16:15 Lymphocytes % (Manual) 9 % (13-43) L 07/30/19 16:15 Monocytes % (Manual) 3 % (4-9) L 07/30/19 16:15 Plt Morphology Comment Normal (NORMAL) 07/30/19 16:15 RBC Morphology Normal (NORMAL) 07/30/19 16:15 Sample Site Lrad 07/30/19 16:24 ABG pH 7.300 (7.35-7.45) L 07/30/19 16:24 ABG pCO2 17.0 mmHg (35.0-45.0) L* 07/30/19 16:24 ABG pO2 124.0 mmHg (80.0-100.0) H 07/30/19 16:24 ABG HCO3 8.4 mmol/L (22-26) L* 07/30/19 16:24 ABG O2 Saturation 98.0 % (90-100) 07/30/19 16:24 ABG Base Excess -15.7 mmol/L (-2.0-2.0) L 07/30/19 16:24 Wang Test Pos 07/30/19 16:24 A-a Gradient 4.0 mmHg 07/30/19 16:24 FiO2 21.0 07/30/19 16:24 Blood Gas Comments Pt isabel well elj 07/30/19 16:24 Sodium 123 mmol/L (136-145) L* 07/30/19 16:15 Corrected Sodium 137 mmol/L (136-145) 07/30/19 16:15 Potassium 6.0 mmol/L (3.5-5.1) H* 07/30/19 16:15 Chloride 86 mmol/L (98-107) L 07/30/19 16:15 Carbon Dioxide 12.2 mmol/L (21-32) L* 07/30/19 16:15 BUN 88 mg/dL (7-18) H 07/30/19 16:15 Creatinine 2.44 mg/dL (0.70-1.30) H 07/30/19 16:15 Est GFR (MDRD) Af Amer 37 (>60) L 07/30/19 16:15 Est GFR (MDRD) Non-Af 31 (>60) L 07/30/19 16:15 Glucose 671 mg/dL (65-99) H* 07/30/19 16:15 POC Glucose (mg/dL) > 600 mg/dL (65-99) 07/30/19 15:29 Calcium 8.9 mg/dL (8.5-10.1) 07/30/19 16:15 Corrected Calcium TNP 07/30/19 16:15 Total Bilirubin 1.40 mg/dL (0.2-1.0) H 07/30/19 16:15 AST 24 Units/L (15-37) 07/30/19 16:15 ALT 23 Units/L (12-78) 07/30/19 16:15 Alkaline Phosphatase 170 Units/L (46-116) H 07/30/19 16:15 Total Protein 9.0 g/dL (6.4-8.2) H 07/30/19 16:15 Albumin 3.6 g/dL (3.4-5.0) 07/30/19 16:15 Globulin 5.4 g/dL (2.5-4.5) H 07/30/19 16:15 Albumin/Globulin Ratio 0.7 Ratio (1.1-2.1) L 07/30/19 16:15 Acetone, Semi-Quant Small (NEGATIVE) H 07/30/19 16:15 - XRAY Xray Findings: Chest: no acute findings, unchanged from previous xray (DEJON DELAROSA) Opioid - Opioid Risk Tool Age (Dejon box if 16-45): No History of Preadolescent Sexual Abuse: No Total: 0 Total Score Risk Category: Low Risk - Diagnosis Discharge Problem: DKA (diabetic ketoacidosis) Qualifiers: Diabetes mellitus type: type 1 Diabetes mellitus complication detail: without coma Qualified Code(s): E10.10 - Type 1 diabetes mellitus with ketoacidosis without coma - Discharge Plan Condition: Stable - Follow ups/Referrals Follow ups/Referrals: Williams Worthington [Primary Care Provider] - 3 days - Instructions
[2019-07-30] MEDS ORDERED: NS 500 ML IV 1,000 ML IV PRN (15:40)
[2019-07-30] MEDS: HumuLIN R SC PRN ×2 (15:44→21:32)
--- NOTE | 2019-07-30 16:12 | RAD ---
HISTORYHYPERGLYCEMIA, AMSSTUDYCHEST, 1 VIEWCOMPARISONAP PORTABLE UPRIGHT CHEST 24 JULY 2019.FINDINGSThe trachea is midline. A LEFT-SIDED PORT IS IN PLACE TIP IN THE SUPERIOR ASPECT OF THE RIGHT ATRIUM. The cardiac silhouette is unremarkable . The lungs are clear without focal infiltrate or effusion. The bony thorax is unremarkable.IMPRESSIONNo acute cardiopulmonary disease and no change from the prior chest film of June 23, 2019..Electronically signed by: DALILA JIMENEZ (Jul 30, 2019 16:11:10)
[2019-07-30 16:27] LABS: BASOPHILS # (AUTO) 0.1 X10^3/uL (0.0-0.1); BASOPHILS % (AUTO) 0.3 % (0.2-1.0); EOSINOPHILS % (AUTO) 0.1 % (0.9-2.9); HEMATOCRIT 43.4 % (42.0-54.0); HEMOGLOBIN 13.7 g/dL (13.5-18.0); LYMPHOCYTES # (AUTO) 1.1 X10^3/uL (1.3-2.9); LYMPHOCYTES % (AUTO) 5.8 % (21.0-51.0); MEAN CORPUSCULAR HEMOGLOBIN 24.9 pg (27.0-34.0); MEAN CORPUSCULAR HGB CONC 31.4 g/dL (33.0-35.0); MEAN CORPUSCULAR VOLUME 79.1 fL (80.0-100.0); MEAN PLATELET VOLUME 9.4 fL (7.4-11.0); MONOCYTES # (AUTO) 0.6 x10^3/uL (0.3-0.8); MONOCYTES % (AUTO) 3.3 % (0.0-13.0); NEUTROPHILS # (AUTO) 16.5 x10^3/uL (2.2-4.8); NEUTROPHILS % (AUTO) 90.5 % (42.0-75.0); PLATELET COUNT 311 X10^3/uL (150.0-450.0); RED BLOOD COUNT 5.49 X10^6/uL (4.7-6.0); RED CELL DISTRIBUTION WIDTH 16.7 % (11.6-16.5); WHITE BLOOD COUNT 18.3 X10^3/uL (3.6-10.0)
[2019-07-30 16:33] LABS: ABG BASE EXCESS -15.7 mmol/L (-2.0-2.0)
[2019-07-30 16:34] LABS: ABG ALLEN TEST POS; ABG HCO3 8.4 mmol/L (22-26)
[2019-07-30 16:40] LABS: BAND NEUTROPHILS % 1 % (0-10); PLATELET MORPHOLOGY COMMENT NORMAL (NORMAL)
[2019-07-30 16:41] LABS: ALANINE AMINOTRANSFERASE 23 Units/L (12-78); ALBUMIN 3.6 g/dL (3.4-5.0); ALKALINE PHOSPHATASE 170 Units/L (46-116); ASPARTATE AMINO TRANSFERASE 24 Units/L (15-37); BLOOD UREA NITROGEN 88 mg/dL (7-18); CALCIUM 8.9 mg/dL (8.5-10.1); CHLORIDE 86 mmol/L (98-107); CREATININE 2.44 mg/dL (0.70-1.30); eGFR NON BLACK RACES 31 (>60)
[2019-07-30 16:44] LABS: SODIUM 123 mmol/L (136-145)
[2019-07-30 16:45] LABS: CARBON DIOXIDE 12.2 mmol/L (21-32)
[2019-07-30 16:46] LABS: COR NA(FOR HYPERGLY) 137 mmol/L (136-145)
[2019-07-30] MEDS ORDERED: NS 1000 ML 1,000 ML ONE ×2 (16:48→18:15)
[2019-07-30] MEDS ORDERED: HumuLIN R SUBCUT ONE (16:56)
[2019-07-30 17:02] LABS: BILIRUBIN,URINE NEGATIVE (NEGATIVE); BLOOD/HEMOGLOBIN,URINE 1+ (NEGATIVE); GLUCOSE, URINE 4+ (NEGATIVE); KETONES,URINE 4+ (NEGATIVE); LEUKOCYTE ESTERASE ,URINE NEGATIVE (NEGATIVE); NITRITES,URINE NEGATIVE (NEGATIVE); PROTEIN,URINE 2+ (NEGATIVE); UROBILINOGEN,URINE NORMAL (NORMAL)
[2019-07-30] MEDS ORDERED: HumuLIN R IV ONE (17:02)
[2019-07-30 17:13] LABS: APPEARANCE,URINE CLEAR (CLEAR); COLOR,URINE YELLOW (YELLOW)
[2019-07-30 17:14] LABS: BACTERIA,URINE TRACE /HPF (NEGATIVE); RBC,URINE 0-2 /HPF (0-3); SQUAMOUS EPITHELIAL CELL,UR NEGATIVE /HPF (NEGATIVE)
[2019-07-30] MEDS: NS 1000 ML 1,000 ML IV SCH ×2 (18:18→20:35)
[2019-07-30 21:17] VITALS: BMI 26.6
[2019-07-31] MEDS: NS 1000 ML 1,000 ML IV SCH ×3 (02:32→12:14)
[2019-07-31] MEDS: HumuLIN R SC PRN ×4 (05:54→21:33)
[2019-07-31 06:18] LABS: BASOPHILS # (AUTO) 0.1 X10^3/uL (0.0-0.1); BASOPHILS % (AUTO) 0.4 % (0.2-1.0); HEMATOCRIT 36.6 % (42.0-54.0); HEMOGLOBIN 11.8 g/dL (13.5-18.0); LYMPHOCYTES # (AUTO) 0.8 X10^3/uL (1.3-2.9); LYMPHOCYTES % (AUTO) 5.4 % (21.0-51.0); MEAN CORPUSCULAR HEMOGLOBIN 24.4 pg (27.0-34.0); MEAN CORPUSCULAR HGB CONC 32.2 g/dL (33.0-35.0); MEAN CORPUSCULAR VOLUME 75.7 fL (80.0-100.0); MEAN PLATELET VOLUME 9.1 fL (7.4-11.0); MONOCYTES % (AUTO) 6.2 % (0.0-13.0); NEUTROPHILS # (AUTO) 13.6 x10^3/uL (2.2-4.8); PLATELET COUNT 230 X10^3/uL (150.0-450.0); RED BLOOD COUNT 4.83 X10^6/uL (4.7-6.0); RED CELL DISTRIBUTION WIDTH 16.3 % (11.6-16.5); WHITE BLOOD COUNT 15.5 X10^3/uL (3.6-10.0)
[2019-07-31 06:37] LABS: ALBUMIN 2.8 g/dL (3.4-5.0); CALCIUM 7.5 mg/dL (8.5-10.1); CARBON DIOXIDE 17.8 mmol/L (21-32); COR CA(FOR HYPOALB) 8.5 mg/dL (8.5-10.1); CREATININE 1.61 mg/dL (0.70-1.30); TOTAL PROTEIN 6.9 g/dL (6.4-8.2)
[2019-07-31 06:52] LABS: PLATELET MORPHOLOGY COMMENT NORMAL (NORMAL)
[2019-07-31] MEDS: GENTAMICIN TOPICAL OINT TOP SCH ×2 (14:26→23:50)
[2019-07-31] MEDS: PROTONIX TAB 40 MG PO SCH ×2 (14:26→21:30)
[2019-07-31] MEDS: GLUCOTROL PO SCH (14:27)
[2019-07-31] MEDS: BACTRIM DS TAB PO SCH ×2 (14:27→21:30)
[2019-07-31] MEDS: CARDIZEM CD 120 MG 24-HR PO SCH (14:27)
[2019-07-31] MEDS: PEPCID TAB 20 MG PO SCH (14:27)
[2019-07-31] MEDS: NS 1000 ML 1,000 ML with SODIUM BICARBONATE 8.4% INJ ADULT 50 ML IV SCH ×6 (14:44→23:36)
[2019-07-31] MEDS: CARAFATE PO SCH ×2 (17:00→21:29)
[2019-07-31] MEDS ORDERED: NS 1000 ML 0 ML ONE (19:17)
[2019-07-31] MEDS: SNACK - Diabetic Appropriate PO SCH (21:29)
[2019-07-31] MEDS: COZAAR PO SCH (21:30)
[2019-07-31] MEDS: REMERON PO SCH (21:31)
[2019-07-31] MEDS: NORCO 10/325 TAB PO PRN (22:10)
[2019-08-01] MEDS: NS 1000 ML 1,000 ML with SODIUM BICARBONATE 8.4% INJ ADULT 50 ML IV SCH ×6 (04:36→20:59)
[2019-08-01] MEDS: GENTAMICIN TOPICAL OINT TOP SCH ×3 (05:12→21:01)
[2019-08-01] MEDS: CARAFATE PO SCH ×4 (05:33→21:00)
[2019-08-01 06:22] LABS: BASOPHILS % (AUTO) 0.4 % (0.2-1.0); EOSINOPHILS % (AUTO) 0.2 % (0.9-2.9); HEMATOCRIT 26.9 % (42.0-54.0); HEMOGLOBIN 8.9 g/dL (13.5-18.0); LYMPHOCYTES # (AUTO) 1.8 X10^3/uL (1.3-2.9); LYMPHOCYTES % (AUTO) 26.7 % (21.0-51.0); MEAN CORPUSCULAR HEMOGLOBIN 25.1 pg (27.0-34.0); MEAN CORPUSCULAR HGB CONC 33.2 g/dL (33.0-35.0); MEAN CORPUSCULAR VOLUME 75.6 fL (80.0-100.0); MEAN PLATELET VOLUME 9.1 fL (7.4-11.0); MONOCYTES # (AUTO) 0.7 x10^3/uL (0.3-0.8); MONOCYTES % (AUTO) 9.8 % (0.0-13.0); NEUTROPHILS # (AUTO) 4.2 x10^3/uL (2.2-4.8); NEUTROPHILS % (AUTO) 62.9 % (42.0-75.0); PLATELET COUNT 146 X10^3/uL (150.0-450.0); RED BLOOD COUNT 3.56 X10^6/uL (4.7-6.0); RED CELL DISTRIBUTION WIDTH 16.5 % (11.6-16.5); WHITE BLOOD COUNT 6.6 X10^3/uL (3.6-10.0)
[2019-08-01 06:26] LABS: ALANINE AMINOTRANSFERASE 15 Units/L (12-78); ALBUMIN 2.1 g/dL (3.4-5.0); ALKALINE PHOSPHATASE 82 Units/L (46-116); ASPARTATE AMINO TRANSFERASE 19 Units/L (15-37); BLOOD UREA NITROGEN 23 mg/dL (7-18); CALCIUM 6.4 mg/dL (8.5-10.1); CARBON DIOXIDE 24.7 mmol/L (21-32); CHLORIDE 106 mmol/L (98-107); COR CA(FOR HYPOALB) 7.9 mg/dL (8.5-10.1); COR NA(FOR HYPERGLY) 139 mmol/L (136-145); CREATININE 0.94 mg/dL (0.70-1.30); SODIUM 138 mmol/L (136-145); TOTAL PROTEIN 5.2 g/dL (6.4-8.2); eGFR NON BLACK RACES > 60 (>60)
[2019-08-01 06:45] LABS: PLATELET MORPHOLOGY COMMENT NORMAL (NORMAL)
[2019-08-01] MEDS ORDERED: CATAPRES-TTS-3 TD SCH (09:00)
[2019-08-01] MEDS ORDERED: MAALOX or MYLANTA PO PRN (10:04)
[2019-08-01] MEDS ORDERED: NITROSTAT SL PRN (10:05)
[2019-08-01] MEDS: PROTONIX TAB 40 MG PO SCH ×2 (10:08→21:00)
[2019-08-01] MEDS: PEPCID TAB 20 MG PO SCH (10:08)
[2019-08-01] MEDS: K-DUR TAB 20 MEQ PO SCH (10:09)
[2019-08-01] MEDS: CARDIZEM CD 120 MG 24-HR PO SCH (10:09)
[2019-08-01] MEDS: GLUCOTROL PO SCH (10:09)
[2019-08-01] MEDS: BACTRIM DS TAB PO SCH ×2 (10:09→21:00)
[2019-08-01] MEDS: LEVEMIR SC SCH (10:10)
[2019-08-01 11:39] LABS: CKMB % 0.6 % (<4); CREATINE KINASE 275 Units/L (39-308); CREATINE KINASE MB 1.5 ng/mL (0-4.0); TROPONIN I < 0.02 ng/mL (0-1.5)
[2019-08-01] MEDS: HumuLIN R SC PRN ×3 (12:10→21:03)
[2019-08-01] MEDS: SNACK - Diabetic Appropriate PO SCH (20:00)
[2019-08-01] MEDS: RESTORIL CAP 30 MG PO PRN (21:00)
[2019-08-01] MEDS: COZAAR PO SCH (21:01)
[2019-08-01] MEDS: REMERON PO SCH (21:01)
[2019-08-01] MEDS: NORCO 10/325 TAB PO PRN (21:02)
[2019-08-01] MEDS: LEVSIN/MAALOX/LIDOC VISC PO PRN (23:48)
[2019-08-02] MEDS: NS 1000 ML 1,000 ML with SODIUM BICARBONATE 8.4% INJ ADULT 50 ML IV SCH ×10 (01:13→22:04)
[2019-08-02 05:24] LABS: BASOPHILS % (AUTO) 0.4 % (0.2-1.0); EOSINOPHILS % (AUTO) 0.5 % (0.9-2.9); HEMATOCRIT 24.8 % (42.0-54.0); HEMOGLOBIN 8.2 g/dL (13.5-18.0); LYMPHOCYTES # (AUTO) 1.6 X10^3/uL (1.3-2.9); LYMPHOCYTES % (AUTO) 36.2 % (21.0-51.0); MEAN CORPUSCULAR HEMOGLOBIN 24.8 pg (27.0-34.0); MEAN CORPUSCULAR HGB CONC 33.1 g/dL (33.0-35.0); MEAN PLATELET VOLUME 8.7 fL (7.4-11.0); MONOCYTES # (AUTO) 0.5 x10^3/uL (0.3-0.8); MONOCYTES % (AUTO) 11.6 % (0.0-13.0); NEUTROPHILS # (AUTO) 2.2 x10^3/uL (2.2-4.8); NEUTROPHILS % (AUTO) 51.3 % (42.0-75.0); PLATELET COUNT 121 X10^3/uL (150.0-450.0); RED BLOOD COUNT 3.31 X10^6/uL (4.7-6.0); RED CELL DISTRIBUTION WIDTH 16.4 % (11.6-16.5); WHITE BLOOD COUNT 4.3 X10^3/uL (3.6-10.0)
[2019-08-02 05:41] LABS: ALANINE AMINOTRANSFERASE 167 Units/L (12-78); ALBUMIN 1.9 g/dL (3.4-5.0); ALKALINE PHOSPHATASE 174 Units/L (46-116); ASPARTATE AMINO TRANSFERASE 662 Units/L (15-37); BLOOD UREA NITROGEN 14 mg/dL (7-18); CARBON DIOXIDE 27.8 mmol/L (21-32); CHLORIDE 107 mmol/L (98-107); CREATININE 0.97 mg/dL (0.70-1.30); SODIUM 141 mmol/L (136-145); TOTAL PROTEIN 4.9 g/dL (6.4-8.2); eGFR NON BLACK RACES > 60 (>60)
[2019-08-02 05:42] LABS: PLATELET MORPHOLOGY COMMENT NORMAL (NORMAL)
[2019-08-02 05:53] LABS: CALCIUM 6.1 mg/dL (8.5-10.1); COR CA(FOR HYPOALB) 7.8 mg/dL (8.5-10.1)
[2019-08-02] MEDS: CARAFATE PO SCH ×4 (05:58→21:55)
[2019-08-02] MEDS: NORCO 10/325 TAB PO PRN ×2 (05:58→20:04)
[2019-08-02] MEDS: K-DUR TAB 20 MEQ PO SCH (09:32)
[2019-08-02] MEDS: PROTONIX TAB 40 MG PO SCH ×2 (09:32→21:55)
[2019-08-02] MEDS: BACTRIM DS TAB PO SCH ×2 (09:32→21:56)
[2019-08-02] MEDS: CARDIZEM CD 120 MG 24-HR PO SCH (09:32)
[2019-08-02] MEDS: GLUCOTROL PO SCH (09:33)
[2019-08-02] MEDS: PEPCID TAB 20 MG PO SCH (09:36)
[2019-08-02] MEDS: GENTAMICIN TOPICAL OINT TOP SCH ×2 (09:36→21:56)
[2019-08-02] MEDS: LEVEMIR SC SCH (09:37)
--- NOTE | 2019-08-02 10:45 | DR.H&P ---
H&P - History & Physical for Day of: H&P Date: 07/30/19 - Chief Complaint Chief Complaint: N/V/D, ABDOMINAL PAIN, HIGH BLOOD GLUCOSE LEVELS - History of Present Illness History of Present Illness: IS A 48 YEAR OLD PATIENT OF OURS. HE PRESENTED TO THE HOSPITAL WITH COMPLAINTS OF ABDOMINAL PAIN, NAUSEA, VOMITING, AND AMS THAT STARTED 3 DAYS PRIOR. FAMILY REPORTS THAT HE HAS BEEN LETHARGIC. HE HAS A HISTORY OF GASTROPARESIS, DIABETES, HTN, AND A-FIB. HE REPORTS BEING COMPLIANT WITH ALL OF HIS MEDICATIONS. THERE ARE ALSO TWO, STAGE TWO, DIABETIC ULCERS NOTED TO THE RIGHT FOOT. ON ARRIVAL, VITALS WERE 97.4-110-20-99%-126/82. LABS WERE OBTAINED. ABNORMAL LAB VALUES INCLUDE THE FOLLOWING: WBC 18.3, SODIUM 123, POTASSIUM 6.0, CHLORIDE 86, CARBON DIOXIDE 12.2, BUN 88, CREATININE 2.44, GLUCOSE 671, TOTAL BILI 1.40, ALK PHOS 170, TOTAL PROTEIN 9.0, GLOBULIN 5.4. CARDIAC ENZYMES WITHIN NORMAL LIMITS. AN ABG WAS OBTAINED AND REVEALED: PH 7.300, PC02 17.0, P02 124.0, HC03 8.4, 02 SATURATION 98.0, BASE EXCESS -15.7. URINALYSIS OBTAINED AND REVEALED: WBC 0-2, RBC 0-2, BACTERIA TRACE, LEUKOCYTES NEGATIVE. ACTONES SMALL. EKG WAS OBTAINED AND REVEALED HR 75. CHEST XRAY REVEALED: The trachea is midline. A LEFT-SIDED PORT IS IN PLACE TIP IN THE SUPERIOR ASPECT OF THE RIGHT ATRIUM. The cardiac silhouette is unremarkable. The lungs are clear without focal infiltrate or effusion. The bony thorax is unremarkable. HE WAS GIVEN 15 UNITS OF HUMULIN R, AND A NORMAL SALINE BOLUS. BLOOD GLUCOSE LEVELS DECREASED TO 419. HE WAS ADMITTED FOR FURTHER EVALUATION AND TREATMENT OF DKA, GASTROPARESIS, AND NAUSEA AND VOMITING. HE WAS STARTED ON NORMAL SALINE WITH ONE AMP OF BICARB AT 250ML/HR, HUMULIN R SLIDING SCALE, BACTRIM DS FOR FOOT WOUND, AND HOME MEDICATIONS WERE RESUMED. WE PLAN TO FOLLOW UP WITH AM LABS AND CONTINUE TO MONITOR. - Past Medical History Past Medical History: Hypertension, Diabetes Additional Medical History: Diabetic Neuropathy, Diabetic Gastroparesis, Hiatal Hernia, Gastric Ulcer, Gall Bladder Disease, Back Pain - Past Surgical History Surgical History: Cholecystectomy, Ortho Surgery, Other Additional Surgical History: Right foot I&D - Family History Family Medical History: Diabetes Mellitus - Social History Alcohol Use: None Drug Use: None Prescription drug monitoring program results: PDMP reviewed and no concerns identified - Medications Home Medications: codeine Allergy (Verified 04/27/19 00:57) morphine Allergy (Verified 04/27/19 00:57) - Review of Systems Constitutional: Weakness Eyes: No Symptoms Reported ENT: No Symptoms Reported Respiratory: Shortness of Breath Cardiovascular: No Symptoms Reported Gastrointestinal: See HPI, Nausea, Vomiting, Abdominal Pain Genitourinary: No Symptoms Reported Musculoskeletal: No Symptoms Reported Skin: Wound (RIGHT FOOT DIABETIC ULCER X 2) Neurological: Weakness - Physical Exam Vital Signs: Temperature 97.7 F Pulse Rate [Left Brachial] 74 Pulse Rate 114 Respiratory Rate 18 Blood Pressure [Right Arm] 106/54 Blood Pressure [Left Arm] 116/58 Blood Pressure 112/73 O2 Sat by Pulse Oximetry 98 Oriented: Normal Eyes: Normal Ear: Normal Nose: Normal Throat: Normal Respiratory: Diminished Throughout Cardiovascular: Tachycardia : Normal Auscultation: Bowel Sounds: Normal Palpation: Normal Tenderness: Normal Skin: Wound (RIGHT FOOT STAGE 2 DIABETIC ULCER X 2) Musculoskeletal: Normal Psychiatric: Normal Mood Description: Calm Affect: Normal Speech Pattern: Clear - Assessment/Plan (1) DKA (diabetic ketoacidosis) Qualifiers: Diabetes mellitus type: type 1 Diabetes mellitus complication detail: without coma Qualified Code(s): E10.10 - Type 1 diabetes mellitus with ketoacidosis without coma Status: Acute Plan: ADMIT, NORMAL SALINE WITH ONE AMP OF BICARB AT 250ML/HR, HUMULIN R SLIDING SCALE, BACTRIM DS FOR FOOT WOUND, AND HOME MEDICATIONS WERE RESUMED (2) Diabetic gastroparesis Status: Chronic (3) Altered mental status Qualifiers: Altered mental status type: persistent vegetative state Qualified Code(s): R40.3 - Persistent vegetative state Status: Acute (4) Nausea and vomiting in adult patient Status: Acute - Allergies Allergies/Adverse Reactions: Allergies Allergy/AdvReac Type Severity Reaction Status Date / Time codeine Allergy Verified 04/27/19 00:57 morphine Allergy Verified 04/27/19 00:57
[2019-08-02 10:51] LABS: BASOPHILS % (AUTO) 0.1 % (0.2-1.0); EOSINOPHILS % (AUTO) 0.8 % (0.9-2.9); HEMATOCRIT 28.9 % (42.0-54.0); HEMOGLOBIN 9.5 g/dL (13.5-18.0); LYMPHOCYTES % (AUTO) 17.6 % (21.0-51.0); MEAN CORPUSCULAR HEMOGLOBIN 24.9 pg (27.0-34.0); MEAN CORPUSCULAR HGB CONC 32.9 g/dL (33.0-35.0); MEAN CORPUSCULAR VOLUME 75.7 fL (80.0-100.0); MEAN PLATELET VOLUME 8.6 fL (7.4-11.0); MONOCYTES # (AUTO) 0.4 x10^3/uL (0.3-0.8); MONOCYTES % (AUTO) 8.2 % (0.0-13.0); NEUTROPHILS % (AUTO) 73.3 % (42.0-75.0); PLATELET COUNT 149 X10^3/uL (150.0-450.0); RED BLOOD COUNT 3.81 X10^6/uL (4.7-6.0); RED CELL DISTRIBUTION WIDTH 16.5 % (11.6-16.5); WHITE BLOOD COUNT 5.4 X10^3/uL (3.6-10.0)
[2019-08-02 11:05] LABS: ACETAMINOPHEN 2.8 ug/mL (10-30)
[2019-08-02 11:06] LABS: ALANINE AMINOTRANSFERASE 296 Units/L (12-78); ALBUMIN 2.4 g/dL (3.4-5.0); ALKALINE PHOSPHATASE 241 Units/L (46-116); ASPARTATE AMINO TRANSFERASE 924 Units/L (15-37); BLOOD UREA NITROGEN 13 mg/dL (7-18); CALCIUM 6.4 mg/dL (8.5-10.1); CARBON DIOXIDE 28.2 mmol/L (21-32); CHLORIDE 104 mmol/L (98-107); COR CA(FOR HYPOALB) 7.7 mg/dL (8.5-10.1); COR NA(FOR HYPERGLY) 141 mmol/L (136-145); CREATININE 1.07 mg/dL (0.70-1.30); SODIUM 139 mmol/L (136-145); eGFR NON BLACK RACES > 60 (>60)
[2019-08-02 11:11] LABS: HYPOCHROMASIA SLIGHT; PLATELET MORPHOLOGY COMMENT NORMAL (NORMAL)
[2019-08-02] MEDS: HumuLIN R SC PRN ×2 (12:36→21:58)
--- NOTE | 2019-08-02 13:51 | PCM.PROG ---
Progress Note - Progress Note for Day of Date of Exam: 08/01/19 - Subjective Subjective: WAS ADMITTED FOR TREATMENT OF DKA, INTRACTABLE NAUSEA AND VOMITING, ABDOMINAL PAIN, AND DIABETIC GASTROPARESIS. TODAY, HE IS ALERT AND ORIENTED, LYING IN BED ON MORNING ROUNDS. HE CONTINUES WITH COMPLAINTS OF ABDOMINAL PAIN AND NAUSEA THIS MORNING. HE ALSO REPORTS WEAKNESS AND SHORTNESS OF BREATH. ON EXAMINATION, HEART IS REGULAR IN RATE AND RHYTHM. BIALTERAL LUNGS ARE NOTED WITH DIMINISHED LUNG SOUNDS THROUGHOUT. ABDOMEN IS ROUND, SOFT, AND NON-TEDNER WITH NORMAL BOWEL SOUNDS NOTED IN ALL QUADRANTS. THERE ARE TWO, STAGE II, DIABETIC ULCERS TO THE RIGHT FOOT. HIS VITALS THIS MORNING ARE: 98.6-88-20-98%-119/72. LABS WERE OBTAINED. ABNORMAL LAB VALUES INCLUDE THE FOLLOWING: RBC 3.56, HGB 8.9, HCT 26.9, PLT COUNT 146, BUN 23, GLUCOSE 149, CALCIUM 6.4, TOTAL PROTEIN 5.2, ALBUMIN 2.1. HE IS CURRENTLY RECEIVING NORMAL SALINE WITH ONE AMP OF BICARB AT 250ML/HR, HUMULIN R SLIDING SCALE, BACTRIM DS FOR FOOT WOUND, AND HOME MEDICATIONS WERE RESUMED. WE WILL CONTINUE WITH CURRENT PLAN OF CARE TODAY. OTHERWISE, WE WILL FOLLOW UP WITH AM LABS AND CHEST XRAY AND CONTINUE TO MONITOR. - Past Medical Family Social History Past Med/Fam/Surg Hx: No changes since H&P Allergies: Allergies codeine Allergy (Verified 04/27/19 00:57) morphine Allergy (Verified 04/27/19 00:57) - Review of Systems ROS: No change since H&P - Vital Signs and I&O's Vital Signs: Temperature 97.7 F Pulse Rate [Left Brachial] 74 Pulse Rate 114 Respiratory Rate 18 Blood Pressure [Right Arm] 106/54 Blood Pressure [Left Arm] 116/58 Blood Pressure 112/73 O2 Sat by Pulse Oximetry 98 Intake and Output: Intake & Output 07/31/19 08/01/19 08/02/19 08/03/19 11:59 11:59 11:59 11:59 Intake Total 3225 / 3225 4962 / 4962 3230 / 3230 Output Total 1900 / 1900 1950 / 1950 3425 / 3425 Balance 1325 / 1325 3012 / 3012 -195 / -195 - Physical Exam Oriented: Normal Eyes: Normal Ear: Normal Nose: Normal Throat: Normal Respiratory: Generalized, Diminished Cardiovascular: Normal : Normal Auscultation: Bowel Sounds: Normal Palpation: Normal Tenderness: Normal Skin: Wound (RIGHT FOOT STAGE 2 DIABETIC ULCER X 2) Musculoskeletal: Normal Psychiatric: Normal Mood Description: Calm Affect: Normal Speech Pattern: Clear - Laboratory and Diagnostics Result Diagrams: 08/02/19 10:20 08/02/19 10:20 Labs: Laboratory WBC 5.4 X10^3/uL (3.6-10.0) 08/02/19 10:20 RBC 3.81 X10^6/uL (4.7-6.0) L 08/02/19 10:20 Hgb 9.5 g/dL (13.5-18.0) L 08/02/19 10:20 Hct 28.9 % (42.0-54.0) L 08/02/19 10:20 MCV 75.7 fL (80.0-100.0) L 08/02/19 10:20 MCH 24.9 pg (27.0-34.0) L 08/02/19 10:20 MCHC 32.9 g/dL (33.0-35.0) L 08/02/19 10:20 RDW 16.5 % (11.6-16.5) 08/02/19 10:20 Plt Count 149 X10^3/uL (150.0-450.0) L 08/02/19 10:20 Plt Count Comment Adequate (ADEQUATE) 08/02/19 10:20 MPV 8.6 fL (7.4-11.0) 08/02/19 10:20 Neut % (Auto) 73.3 % (42.0-75.0) 08/02/19 10:20 Lymph % (Auto) 17.6 % (21.0-51.0) L 08/02/19 10:20 [place] % (Auto) 8.2 % (0.0-13.0) 08/02/19 10:20 Eos % (Auto) 0.8 % (0.9-2.9) L 08/02/19 10:20 Baso % (Auto) 0.1 % (0.2-1.0) L 08/02/19 10:20 Neut # (Auto) 4.0 x10^3/uL (2.2-4.8) 08/02/19 10:20 Lymph # (Auto) 1.0 X10^3/uL (1.3-2.9) L 08/02/19 10:20 [place] # (Auto) 0.4 x10^3/uL (0.3-0.8) 08/02/19 10:20 Eos # (Auto) 0.0 x10^3/uL (0.0-0.2) 08/02/19 10:20 Baso # (Auto) 0.0 X10^3/uL (0.0-0.1) 08/02/19 10:20 Absolute Nucleated RBC 0.0 /100WBC 08/02/19 10:20 Total Counted 100 07/30/19 16:15 Neutrophils % (Manual) 87 % (39-76) H 07/30/19 16:15 Band Neutrophils % 1 % (0-10) 07/30/19 16:15 Lymphocytes % (Manual) 9 % (13-43) L 07/30/19 16:15 Monocytes % (Manual) 3 % (4-9) L 07/30/19 16:15 Plt Morphology Comment Normal (NORMAL) 08/02/19 10:20 RBC Morphology Abnormal (NORMAL) 08/02/19 10:20 Hypochromasia Slight A 08/02/19 10:20 Sample Site Lrad 07/30/19 16:24 ABG pH 7.300 (7.35-7.45) L 07/30/19 16:24 ABG pCO2 17.0 mmHg (35.0-45.0) L* 07/30/19 16:24 ABG pO2 124.0 mmHg (80.0-100.0) H 07/30/19 16:24 ABG HCO3 8.4 mmol/L (22-26) L* 07/30/19 16:24 ABG O2 Saturation 98.0 % (90-100) 07/30/19 16:24 ABG Base Excess -15.7 mmol/L (-2.0-2.0) L 07/30/19 16:24 Wang Test Pos 07/30/19 16:24 A-a Gradient 4.0 mmHg 07/30/19 16:24 FiO2 21.0 07/30/19 16:24 Blood Gas Comments Pt isabel well elj 02/21/20 16:24 Sodium 139 mmol/L (136-145) 08/02/19 10:20 Corrected Sodium 141 mmol/L (136-145) 08/02/19 10:20 Potassium 3.7 mmol/L (3.5-5.1) 08/02/19 10:20 Chloride 104 mmol/L (98-107) 08/02/19 10:20 Carbon Dioxide 28.2 mmol/L (21-32) 08/02/19 10:20 BUN 13 mg/dL (7-18) 08/02/19 10:20 Creatinine 1.07 mg/dL (0.70-1.30) 08/02/19 10:20 Est GFR (MDRD) Af Amer > 60 (>60) 08/02/19 10:20 Est GFR (MDRD) Non-Af > 60 (>60) 08/02/19 10:20 Glucose 179 mg/dL (65-99) H 08/02/19 10:20 POC Glucose (mg/dL) 215 mg/dL (65-99) H 08/02/19 12:01 Lactic Acid 2.0 mmol/L (0.4-2.0) 08/02/19 10:20 Calcium 6.4 mg/dL (8.5-10.1) L 08/02/19 10:20 Corrected Calcium 7.7 mg/dL (8.5-10.1) L 08/02/19 10:20 Total Bilirubin 0.60 mg/dL (0.2-1.0) 08/02/19 10:20 AST 924 Units/L (15-37) H 08/02/19 10:20 ALT 296 Units/L (12-78) H 08/02/19 10:20 Alkaline Phosphatase 241 Units/L (46-116) H 08/02/19 10:20 Creatine Kinase 275 Units/L (39-308) 08/01/19 10:35 CK-MB (CK-2) 1.5 ng/mL (0-4.0) 08/01/19 10:35 CK/CKMB % Calc 0.6 % (<4) 08/01/19 10:35 Troponin I < 0.02 ng/mL (0-1.5) 08/01/19 10:35 Total Protein 6.0 g/dL (6.4-8.2) L 08/02/19 10:20 Albumin 2.4 g/dL (3.4-5.0) L 08/02/19 10:20 Globulin 3.6 g/dL (2.5-4.5) 08/02/19 10:20 Albumin/Globulin Ratio 0.7 Ratio (1.1-2.1) L 08/02/19 10:20 Specimen Type Random urine 07/30/19 16:50 Urine Color Yellow (YELLOW) 07/30/19 16:50 Urine Appearance Clear (CLEAR) 07/30/19 16:50 Urine pH 5.0 (5.0 - 8.0) 07/30/19 16:50 Ur Specific [place] 1.015 (1.000-1.030) 07/30/19 16:50 Urine Protein 2+ (NEGATIVE) 07/30/19 16:50 Urine Glucose (UA) 4+ (NEGATIVE) 07/30/19 16:50 Urine Ketones 4+ (NEGATIVE) 07/30/19 16:50 Urine Occult Blood 1+ (NEGATIVE) 07/30/19 16:50 Urine Nitrite Negative (NEGATIVE) 07/30/19 16:50 Urine Bilirubin Negative (NEGATIVE) 07/30/19 16:50 Urine Urobilinogen Normal (NORMAL) 07/30/19 16:50 Ur Leukocyte Esterase Negative (NEGATIVE) 07/30/19 16:50 Urine RBC 0-2 /HPF (0-3) 07/30/19 16:50 Urine WBC 0-2 /HPF (0-5) 07/30/19 16:50 Ur Squamous Epith Cells Negative /HPF (NEGATIVE) 07/30/19 16:50 Urine Bacteria Trace /HPF (NEGATIVE) 07/30/19 16:50 Ur Culture Indicated? No/not indicated 07/30/19 16:50 Acetaminophen 2.8 ug/mL (10-30) L 08/02/19 10:20 Acetone, Semi-Quant Small (NEGATIVE) H 07/30/19 16:15 - Plan (1) DKA (diabetic ketoacidosis) Status: Acute Qualifiers: Diabetes mellitus type: type 1 Diabetes mellitus complication detail: without coma Qualified Code(s): E10.10 - Type 1 diabetes mellitus with ketoacidosis without coma Plan: ADMIT, NORMAL SALINE WITH ONE AMP OF BICARB AT 250ML/HR, HUMULIN R SLIDING SCALE, BACTRIM DS FOR FOOT WOUND, AND HOME MEDICATIONS WERE RESUMED (2) Diabetic gastroparesis Status: Chronic (3) Altered mental status Status: Acute Qualifiers: Altered mental status type: persistent vegetative state Qualified Code(s): R40.3 - Persistent vegetative state (4) Nausea and vomiting in adult patient Status: Acute
--- NOTE | 2019-08-02 18:56 | PCM.PROG ---
Progress Note - Progress Note for Day of Date of Exam: 08/02/19 - Subjective Subjective: WAS ADMITTED FOR TREATMENT OF DKA, INTRACTABLE NAUSEA AND VOMITING, ABDOMINAL PAIN, AND DIABETIC GASTROPARESIS. TODAY, HE IS ALERT AND ORIENTED, LYING IN BED ON MORNING ROUNDS. HE CONTINUES WITH COMPLAINTS OF ABDOMINAL PAIN, NAUSEA, WEAKNESS, AND SOB. ON EXAMINATION, HEART IS REGULAR IN RATE AND RHYTHM. BILATERAL LUNGS ARE NOTED WITH DIMINISHED LUNG SOUNDS THROUGHOUT. ABDOMEN IS ROUND, SOFT, AND NON-TEDNER WITH NORMAL BOWEL SOUNDS NOTED IN ALL QUADRANTS. THERE ARE TWO, STAGE II, DIABETIC ULCERS TO THE RIGHT FOOT. HIS VITALS THIS MORNING ARE: 97.8-80-18-99%-136/73. LABS WERE OBTAINED. ABNORMAL LAB VALUES INCLUDE THE FOLLOWING: RBC 3.81, HGB 9.5, HCT 28.9, PLT COUNT 149, GLUCOSE 179, CALCIUM 6.4, AST 924, ALT 296, ALK PHOS 241, TOTAL PROTEIN 6.0, ALBUMIN 2.4. HE IS CURRENTLY RECEIVING NORMAL SALINE WITH ONE AMP OF BICARB AT 250ML/HR, HUMULIN R SLIDING SCALE, BACTRIM DS FOR FOOT WOUND, AND HOME MEDICATIONS WERE RESUMED. WE WILL CONTINUE WITH CURRENT PLAN OF CARE TODAY AND OBTAIN A LIVER US, AN ABDOMEN/PELVIS CT WITH CONTRAST, HEPATITS PANEL, AND ACETOMINOPHEN LEVEL DUE TO ELEVEATED LFTs. OTHERWISE, WE WILL FOLLOW UP WITH AM LABS AND CONTINUE TO MONITOR. - Past Medical Family Social History Past Med/Fam/Surg Hx: No changes since H&P Allergies: Allergies codeine Allergy (Verified 04/27/19 00:57) morphine Allergy (Verified 04/27/19 00:57) - Review of Systems ROS: No change since H&P - Vital Signs and I&O's Vital Signs: Temperature 98.2 F Pulse Rate [Left Brachial] 81 Pulse Rate 114 Respiratory Rate 18 Blood Pressure [Right Arm] 119/67 Blood Pressure [Left Arm] 116/58 Blood Pressure 112/73 O2 Sat by Pulse Oximetry 98 Intake and Output: Intake & Output 07/31/19 08/01/19 08/02/19 08/03/19 11:59 11:59 11:59 11:59 Intake Total 3225 / 3225 4962 / 4962 3230 / 3230 680 / 680 Output Total 1900 / 1900 1950 / 1950 3425 / 3425 1300 / 1300 Balance 1325 / 1325 3012 / 3012 -195 / -195 -620 / -620 - Physical Exam Oriented: Normal Eyes: Normal Ear: Normal Nose: Normal Throat: Normal Respiratory: Generalized, Diminished Cardiovascular: Normal : Normal Auscultation: Bowel Sounds: Normal Tenderness: Normal Skin: Wound (RIGHT FOOT STAGE 2 DIABETIC ULCER X 2) Musculoskeletal: Normal Psychiatric: Normal Mood Description: Calm Affect: Normal Speech Pattern: Clear - Laboratory and Diagnostics Result Diagrams: 08/02/19 10:20 08/02/19 10:20 Labs: Laboratory WBC 5.4 X10^3/uL (3.6-10.0) 08/02/19 10:20 RBC 3.81 X10^6/uL (4.7-6.0) L 08/02/19 10:20 Hgb 9.5 g/dL (13.5-18.0) L 08/02/19 10:20 Hct 28.9 % (42.0-54.0) L 08/02/19 10:20 MCV 75.7 fL (80.0-100.0) L 08/02/19 10:20 MCH 24.9 pg (27.0-34.0) L 08/02/19 10:20 MCHC 32.9 g/dL (33.0-35.0) L 08/02/19 10:20 RDW 16.5 % (11.6-16.5) 08/02/19 10:20 Plt Count 149 X10^3/uL (150.0-450.0) L 08/02/19 10:20 Plt Count Comment Adequate (ADEQUATE) 08/02/19 10:20 MPV 8.6 fL (7.4-11.0) 08/02/19 10:20 Neut % (Auto) 73.3 % (42.0-75.0) 08/02/19 10:20 Lymph % (Auto) 17.6 % (21.0-51.0) L 08/02/19 10:20 [place] % (Auto) 8.2 % (0.0-13.0) 08/02/19 10:20 Eos % (Auto) 0.8 % (0.9-2.9) L 08/02/19 10:20 Baso % (Auto) 0.1 % (0.2-1.0) L 08/02/19 10:20 Neut # (Auto) 4.0 x10^3/uL (2.2-4.8) 08/02/19 10:20 Lymph # (Auto) 1.0 X10^3/uL (1.3-2.9) L 08/02/19 10:20 [place] # (Auto) 0.4 x10^3/uL (0.3-0.8) 08/02/19 10:20 Eos # (Auto) 0.0 x10^3/uL (0.0-0.2) 08/02/19 10:20 Baso # (Auto) 0.0 X10^3/uL (0.0-0.1) 08/02/19 10:20 Absolute Nucleated RBC 0.0 /100WBC 08/02/19 10:20 Total Counted 100 07/30/19 16:15 Neutrophils % (Manual) 87 % (39-76) H 07/30/19 16:15 Band Neutrophils % 1 % (0-10) 07/30/19 16:15 Lymphocytes % (Manual) 9 % (13-43) L 07/30/19 16:15 Monocytes % (Manual) 3 % (4-9) L 07/30/19 16:15 Plt Morphology Comment Normal (NORMAL) 08/02/19 10:20 RBC Morphology Abnormal (NORMAL) 08/02/19 10:20 Hypochromasia Slight A 08/02/19 10:20 Sample Site [place] 07/30/19 16:24 ABG pH 7.300 (7.35-7.45) L 07/30/19 16:24 ABG pCO2 17.0 mmHg (35.0-45.0) L* 07/30/19 16:24 ABG pO2 124.0 mmHg (80.0-100.0) H 07/30/19 16:24 ABG HCO3 8.4 mmol/L (22-26) L* 07/30/19 16:24 ABG O2 Saturation 98.0 % (90-100) 07/30/19 16:24 ABG Base Excess -15.7 mmol/L (-2.0-2.0) L 07/30/19 16:24 Wang Test Pos 07/30/19 16:24 A-a Gradient 4.0 mmHg 07/30/19 16:24 FiO2 21.0 07/30/19 16:24 Blood Gas Comments Pt isabel well elj 07/30/19 16:24 Sodium 139 mmol/L (136-145) 08/02/19 10:20 Corrected Sodium 141 mmol/L (136-145) 08/02/19 10:20 Potassium 3.7 mmol/L (3.5-5.1) 08/02/19 10:20 Chloride 104 mmol/L (98-107) 08/02/19 10:20 Carbon Dioxide 28.2 mmol/L (21-32) 08/02/19 10:20 BUN 13 mg/dL (7-18) 08/02/19 10:20 Creatinine 1.07 mg/dL (0.70-1.30) 08/02/19 10:20 Est GFR (MDRD) Af Amer > 60 (>60) 08/02/19 10:20 Est GFR (MDRD) Non-Af > 60 (>60) 08/02/19 10:20 Glucose 179 mg/dL (65-99) H 08/02/19 10:20 POC Glucose (mg/dL) 166 mg/dL (65-99) H 08/02/19 16:46 Lactic Acid 2.0 mmol/L (0.4-2.0) 08/02/19 10:20 Calcium 6.4 mg/dL (8.5-10.1) L 08/02/19 10:20 Corrected Calcium 7.7 mg/dL (8.5-10.1) L 08/02/19 10:20 Total Bilirubin 0.60 mg/dL (0.2-1.0) 08/02/19 10:20 AST 924 Units/L (15-37) H 08/02/19 10:20 ALT 296 Units/L (12-78) H 08/02/19 10:20 Alkaline Phosphatase 241 Units/L (46-116) H 08/02/19 10:20 Creatine Kinase 275 Units/L (39-308) 08/01/19 10:35 CK-MB (CK-2) 1.5 ng/mL (0-4.0) 08/01/19 10:35 CK/CKMB % Calc 0.6 % (<4) 08/01/19 10:35 Troponin I < 0.02 ng/mL (0-1.5) 08/01/19 10:35 Total Protein 6.0 g/dL (6.4-8.2) L 08/02/19 10:20 Albumin 2.4 g/dL (3.4-5.0) L 08/02/19 10:20 Globulin 3.6 g/dL (2.5-4.5) 08/02/19 10:20 Albumin/Globulin Ratio 0.7 Ratio (1.1-2.1) L 08/02/19 10:20 Specimen Type Random urine 07/30/19 16:50 Urine Color Yellow (YELLOW) 07/30/19 16:50 Urine Appearance Clear (CLEAR) 07/30/19 16:50 Urine pH 5.0 (5.0 - 8.0) 07/30/19 16:50 Ur Specific [place] 1.015 (1.000-1.030) 07/30/19 16:50 Urine Protein 2+ (NEGATIVE) 07/30/19 16:50 Urine Glucose (UA) 4+ (NEGATIVE) 07/30/19 16:50 Urine Ketones 4+ (NEGATIVE) 07/30/19 16:50 Urine Occult Blood 1+ (NEGATIVE) 07/30/19 16:50 Urine Nitrite Negative (NEGATIVE) 07/30/19 16:50 Urine Bilirubin Negative (NEGATIVE) 07/30/19 16:50 Urine Urobilinogen Normal (NORMAL) 07/30/19 16:50 Ur Leukocyte Esterase Negative (NEGATIVE) 07/30/19 16:50 Urine RBC 0-2 /HPF (0-3) 07/30/19 16:50 Urine WBC 0-2 /HPF (0-5) 07/30/19 16:50 Ur Squamous Epith Cells Negative /HPF (NEGATIVE) 07/30/19 16:50 Urine Bacteria Trace /HPF (NEGATIVE) 07/30/19 16:50 Ur Culture Indicated? No/not indicated 07/30/19 16:50 Acetaminophen 2.8 ug/mL (10-30) L 08/02/19 10:20 Acetone, Semi-Quant Small (NEGATIVE) H 07/30/19 16:15 - Plan (1) DKA (diabetic ketoacidosis) Status: Acute Qualifiers: Diabetes mellitus type: type 1 Diabetes mellitus complication detail: without coma Qualified Code(s): E10.10 - Type 1 diabetes mellitus with ketoacidosis without coma Plan: NORMAL SALINE WITH ONE AMP OF BICARB AT 250ML/HR, HUMULIN R SLIDING SCALE, BACTRIM DS FOR FOOT WOUND, AND HOME MEDICATIONS WERE RESUMED (2) Diabetic gastroparesis Status: Chronic (3) Altered mental status Status: Acute Qualifiers: Altered mental status type: persistent vegetative state Qualified Code(s): R40.3 - Persistent vegetative state (4) Nausea and vomiting in adult patient Status: Acute (5) Elevated LFTs Status: Acute Plan: OBTAIN LIVER US, OBTAIN ABDOMEN/PELVIS CT WITH CONTRAST, HEPATITS PANEL, ACETOMINOPHEN LEVEL, CONTINUE TO MONITOR
[2019-08-02] MEDS: SNACK - Diabetic Appropriate PO SCH (20:05)
[2019-08-02] MEDS: RESTORIL CAP 30 MG PO PRN (21:55)
[2019-08-02] MEDS: COZAAR PO SCH (21:56)
[2019-08-02] MEDS: LEVSIN/MAALOX/LIDOC VISC PO PRN (21:57)
[2019-08-03] MEDS: NS 1000 ML 1,000 ML with SODIUM BICARBONATE 8.4% INJ ADULT 50 ML IV SCH ×6 (00:23→06:54)
[2019-08-03 04:56] LABS: BASOPHILS % (AUTO) 0.5 % (0.2-1.0); EOSINOPHILS # (AUTO) 0.1 x10^3/uL (0.0-0.2); EOSINOPHILS % (AUTO) 2.1 % (0.9-2.9); HEMATOCRIT 24.3 % (42.0-54.0); LYMPHOCYTES # (AUTO) 1.3 X10^3/uL (1.3-2.9); LYMPHOCYTES % (AUTO) 21.8 % (21.0-51.0); MEAN CORPUSCULAR VOLUME 75.6 fL (80.0-100.0); MONOCYTES # (AUTO) 0.4 x10^3/uL (0.3-0.8); NEUTROPHILS # (AUTO) 4.1 x10^3/uL (2.2-4.8); NEUTROPHILS % (AUTO) 69.6 % (42.0-75.0); PLATELET COUNT 127 X10^3/uL (150.0-450.0); RED BLOOD COUNT 3.22 X10^6/uL (4.7-6.0); RED CELL DISTRIBUTION WIDTH 16.3 % (11.6-16.5); WHITE BLOOD COUNT 5.9 X10^3/uL (3.6-10.0)
[2019-08-03 05:22] LABS: ALANINE AMINOTRANSFERASE 165 Units/L (12-78); ALKALINE PHOSPHATASE 216 Units/L (46-116); ASPARTATE AMINO TRANSFERASE 167 Units/L (15-37); BLOOD UREA NITROGEN 8 mg/dL (7-18); CALCIUM 6.2 mg/dL (8.5-10.1); CARBON DIOXIDE 27.4 mmol/L (21-32); CHLORIDE 107 mmol/L (98-107); COR CA(FOR HYPOALB) 7.8 mg/dL (8.5-10.1); COR NA(FOR HYPERGLY) 142 mmol/L (136-145); CREATININE 1.01 mg/dL (0.70-1.30); SODIUM 139 mmol/L (136-145); TOTAL PROTEIN 5.2 g/dL (6.4-8.2); eGFR NON BLACK RACES > 60 (>60)
[2019-08-03 06:09] LABS: ABG ALLEN TEST POS; ABG BASE EXCESS 4.7 mmol/L (-2.0-2.0); ABG HCO3 29.2 mmol/L (22-26)
--- NOTE | 2019-08-03 06:10 | RAD ---
HISTORYShortness of breathSTUDYCHEST, 1 VIEWCOMPARMer[facility] Hospitaluary 2019FINDINGSThere is a port present on the left. Its tip is at the cavoatrial junction. The heart is within normal limits in size. The jennifer are normal. The lung [place] are clear. No pleural effusions are identified. The bony thorax is unremarkable.IMPRESSIONNo significant abnormality identifiedElectronically signed by: TONY FLORES (Aug 03, 2019 06:09:38)
[2019-08-03 06:41] LABS: PLATELET MORPHOLOGY COMMENT NORMAL (NORMAL)
--- NOTE | 2019-08-03 06:52 | CT ---
HISTORYEpigastric abdominal painSTUDYABDOMEN/PELVIS WITH CONCOMPARISONFebruary 2018FINDINGSThe right lung base is clear. There is some peribronchial infiltrate present in the left lower lobe which may indicate bronchopneumonia. Clinical correlation is recommended. Bilateral minimal pleural effusions are present. The liver, spleen, adrenal glands, and pancreas are within normal limits. Patient is status post cholecystectomy. The kidneys are unobstructed and without masses or stones. No ureteral calculi are identified. The abdominal aorta is normal. No intraperitoneal or retroperitoneal lymphadenopathy of significance is identified. The appendix is not identified. There is a surgical clip in the area of the cecal tip possibly due to prior appendectomy. There are no findings suggestive of enteritis, diverticulitis, or colitis. Examination of the pelvis demonstrated no evidence for pelvic masses, pelvic fluid, or pelvic lymphadenopathy. The bladder is somewhat distended but otherwise within normal limits. No lytic or blastic skeletal lesions of significance are identified.IMPRESSIONNo definite acute intra-abdominal or intrapelvic abnormality identifiedPeribronchial infiltrate in the left lower lobe possibly indicative of bronchopneumonia. Clinical correlation is recommended.Bilateral minimal pleural effusionsElectronically signed by: TONY FLORES (Aug 03, 2019 06:50:47)
[2019-08-03] MEDS: CARAFATE PO SCH ×4 (06:55→22:06)
[2019-08-03] MEDS: NORCO 10/325 TAB PO PRN ×2 (06:56→14:01)
[2019-08-03] MEDS: HumuLIN R SC PRN (06:56)
[2019-08-03] MEDS ORDERED: LEVEMIR SC SCH (09:00)
[2019-08-03] MEDS ORDERED: NS 1000 ML 1,000 ML ONE (11:06)
[2019-08-03] MEDS: PROTONIX TAB 40 MG PO SCH ×2 (11:07→22:07)
[2019-08-03] MEDS: NS 1000 ML 1,000 ML IV SCH ×3 (11:08→21:36)
[2019-08-03] MEDS: GLUCOTROL PO SCH (11:08)
[2019-08-03] MEDS: CARDIZEM CD 120 MG 24-HR PO SCH (11:14)
[2019-08-03] MEDS: K-DUR TAB 20 MEQ PO SCH (11:15)
[2019-08-03] MEDS: PEPCID TAB 20 MG PO SCH (11:15)
[2019-08-03] MEDS: BACTRIM DS TAB PO SCH ×2 (11:17→22:06)
[2019-08-03] MEDS: GENTAMICIN TOPICAL OINT TOP SCH ×2 (11:18→22:06)
--- NOTE | 2019-08-03 11:24 | US ---
HISTORYELEVATED LFT'SSTUDYLIVERCOMPARISONNone availableTECHNIQUEMultiple dasilva scale and color flow Doppler images of the right upper quadrant were obtained.FINDINGSThe liver is normal in echotexture and size . No focal intraparenchymal mass or intrahepatic biliary ductal dilatation can be observed.The gallbladder is surgically absent. [No pericholecystic fluid or gallbladder wall thickening can be observed].The common bile duct is unremarkable measuring sizemm.The right kidney measurers 8.7cm. No hydronephrosis is observed. There is diffuse increased cortical echotexture.The visualized pancreatic head and body demonstrates no mass, ductal dilatation or localized peripancreatic fluid collection.IMPRESSIONNormal sonographic evaluation of the liver.Previous cholecystectomy without bile duct dilatation.Decreased size of the right kidney with increased cortical echogenicity suggesting chronic medical renal disease. No hydronephrosis.Electronically signed by: JOAQUIN PUENTE (Aug 03, 2019 11:21:58)
[2019-08-03] MEDS: DEMEROL INJ IVP PRN (16:59)
[2019-08-03] MEDS ORDERED: DUONEB 0.5 MG/3 MG (3 mL) NEB SCH (17:30)
--- NOTE | 2019-08-03 17:53 | PCM.PROG ---
Progress Note - Progress Note for Day of Date of Exam: 08/03/19 - Subjective Subjective: WAS ADMITTED FOR TREATMENT OF DKA, INTRACTABLE NAUSEA AND VOMITING, ABDOMINAL PAIN, AND DIABETIC GASTROPARESIS. TODAY, HE IS ALERT AND ORIENTED, LYING IN BED ON MORNING ROUNDS. HE CONTINUES WITH COMPLAINTS OF ABDOMINAL PAIN, NAUSEA, WEAKNESS, AND SOB. ON EXAMINATION, HEART IS REGULAR IN RATE AND RHYTHM. BILATERAL LUNGS ARE NOTED WITH DIMINISHED LUNG SOUNDS THROUGHOUT. ABDOMEN IS ROUND, SOFT, AND NON-TEDNER WITH NORMAL BOWEL SOUNDS NOTED IN ALL QUADRANTS. THERE ARE TWO, STAGE II, DIABETIC ULCERS TO THE RIGHT FOOT. HIS VITALS THIS MORNING ARE: 98.3-72-18-96%-126/64. LABS WERE OBTAINED. ABNORMAL LAB VALUES INCLUDE THE FOLLOWING: RBC 3.22, HGB 8.0, HCT 24.3, PLT COUNT 127, GLUCOSE 223, CALCIUM 6.2, AST 167, ALT 165, ALK PHOS 216, TOTAL PROTEIN 5.2, ALBUMIN 2.0. AN ABDOMEN/PELVIS CT WITH CONTRAST WAS OBTAINED YESTERDAY AND REVEALED: No definite acute intra-abdominal or intrapelvic abnormality identified. Peribronchial infiltrate in the left lower lobe possibly indicative of bronchopneumonia. Clinical correlation is recommended. Bilateral minimal pleural effusions. HE IS CURRENTLY RECEIVING NORMAL SALINE WITH ONE AMP OF BICARB AT 250ML/HR, HUMULIN R SLIDING SCALE, BACTRIM DS FOR FOOT WOUND, AND HOME MEDICATIONS WERE RESUMED. TODAY, WE WILL DISCONTINUE BICARB FROM IV FLUIDS. WE WILL ADD FORTAZ AND LEVAQUIN, AND RESPIRATORY TX FOR TREATMENT OF BRONCHOPNEUMONIA. HE IS SCHEDULED FOR A LIVER US TODAY DUE TO ELEVATED LFTs. OTHERWISE, WE WILL FOLLOW UP WITH AM LABS AND CONTINUE TO MONITOR. - Past Medical Family Social History Past Med/Fam/Surg Hx: No changes since H&P Allergies: Allergies codeine Allergy (Verified 04/27/19 00:57) morphine Allergy (Verified 04/27/19 00:57) - Review of Systems ROS: No change since H&P - Vital Signs and I&O's Vital Signs: Temperature 97.4 F Pulse Rate [Right Brachial] 66 Pulse Rate [Left Brachial] 72 Pulse Rate 114 Respiratory Rate 18 Blood Pressure [Right Arm] 113/62 Blood Pressure [Left Arm] 116/58 Blood Pressure 112/73 O2 Sat by Pulse Oximetry 97 Intake and Output: Intake & Output 08/01/19 08/02/19 08/03/19 08/04/19 11:59 11:59 11:59 11:59 Intake Total 4962 / 4962 3230 / 3230 3280 / 3280 560 / 560 Output Total 1949 3425 / 3425 1302 / 1302 Balance 3012 / 3012 -195 / -195 1977 560 / 560 - Physical Exam Oriented: Normal Eyes: Normal Ear: Normal Nose: Normal Throat: Normal Respiratory: Generalized, Diminished Cardiovascular: Normal : Normal Auscultation: Bowel Sounds: Normal Palpation: Normal Tenderness: Normal Skin: Wound (RIGHT FOOT STAGE 2 DIABETIC ULCER X 2) Musculoskeletal: Normal Psychiatric: Normal Mood Description: Calm Affect: Normal Speech Pattern: Clear, Appropriate - Laboratory and Diagnostics Result Diagrams: 08/03/19 03:54 08/03/19 03:54 Labs: Laboratory WBC 5.9 X10^3/uL (3.6-10.0) 08/03/19 03:54 RBC 3.22 X10^6/uL (4.7-6.0) L 08/03/19 03:54 Hgb 8.0 g/dL (13.5-18.0) L 08/03/19 03:54 Hct 24.3 % (42.0-54.0) L 08/03/19 03:54 MCV 75.6 fL (80.0-100.0) L 08/03/19 03:54 MCH 25.0 pg (27.0-34.0) L 08/03/19 03:54 MCHC 33.0 g/dL (33.0-35.0) 08/03/19 03:54 RDW 16.3 % (11.6-16.5) 08/03/19 03:54 Plt Count 127 X10^3/uL (150.0-450.0) L 08/03/19 03:54 Plt Count Comment Decreased (ADEQUATE) 08/03/19 03:54 MPV 9.0 fL (7.4-11.0) 08/03/19 03:54 Neut % (Auto) 69.6 % (42.0-75.0) 08/03/19 03:54 Lymph % (Auto) 21.8 % (21.0-51.0) 08/03/19 03:54 [place] % (Auto) 6.0 % (0.0-13.0) 08/03/19 03:54 Eos % (Auto) 2.1 % (0.9-2.9) 08/03/19 03:54 Baso % (Auto) 0.5 % (0.2-1.0) 08/03/19 03:54 Neut # (Auto) 4.1 x10^3/uL (2.2-4.8) 08/03/19 03:54 Lymph # (Auto) 1.3 X10^3/uL (1.3-2.9) 08/03/19 03:54 [place] # (Auto) 0.4 x10^3/uL (0.3-0.8) 08/03/19 03:54 Eos # (Auto) 0.1 x10^3/uL (0.0-0.2) 08/03/19 03:54 Baso # (Auto) 0.0 X10^3/uL (0.0-0.1) 08/03/19 03:54 Absolute Nucleated RBC 0.0 /100WBC 08/03/19 03:54 Total Counted 100 07/30/19 16:15 Neutrophils % (Manual) 87 % (39-76) H 07/30/19 16:15 Band Neutrophils % 1 % (0-10) 07/30/19 16:15 Lymphocytes % (Manual) 9 % (13-43) L 07/30/19 16:15 Monocytes % (Manual) 3 % (4-9) L 07/30/19 16:15 Plt Morphology Comment Normal (NORMAL) 08/03/19 03:54 RBC Morphology Normal (NORMAL) 08/03/19 03:54 Hypochromasia Slight A 08/02/19 10:20 Sample Site Rr 08/03/19 06:00 ABG pH 7.450 (7.35-7.45) 08/03/19 06:00 ABG pCO2 42.0 mmHg (35.0-45.0) 08/03/19 06:00 ABG pO2 58.0 mmHg (80.0-100.0) L 08/03/19 06:00 ABG HCO3 29.2 mmol/L (22-26) H 08/03/19 06:00 ABG O2 Saturation 91.0 % (90-100) 08/03/19 06:00 ABG Base Excess 4.7 mmol/L (-2.0-2.0) H 08/03/19 06:00 Wang Test Pos 08/03/19 06:00 A-a Gradient 39.0 mmHg 08/03/19 06:00 FiO2 21.0 08/03/19 06:00 Blood Gas Comments Les well 08/03/19 06:00 Sodium 139 mmol/L (136-145) 08/03/19 03:54 Corrected Sodium 142 mmol/L (136-145) 08/03/19 03:54 Potassium 4.0 mmol/L (3.5-5.1) 08/03/19 03:54 Chloride 107 mmol/L (98-107) 08/03/19 03:54 Carbon Dioxide 27.4 mmol/L (21-32) 08/03/19 03:54 BUN 8 mg/dL (7-18) 08/03/19 03:54 Creatinine 1.01 mg/dL (0.70-1.30) 08/03/19 03:54 Est GFR (MDRD) Af Amer > 60 (>60) 08/03/19 03:54 Est GFR (MDRD) Non-Af > 60 (>60) 08/03/19 03:54 Glucose 223 mg/dL (65-99) H 08/03/19 03:54 POC Glucose (mg/dL) 163 mg/dL (65-99) H 08/03/19 15:57 Lactic Acid 2.0 mmol/L (0.4-2.0) 08/02/19 10:20 Calcium 6.2 mg/dL (8.5-10.1) L 08/03/19 03:54 Corrected Calcium 7.8 mg/dL (8.5-10.1) L 08/03/19 03:54 Total Bilirubin 0.20 mg/dL (0.2-1.0) 08/03/19 03:54 AST 167 Units/L (15-37) H 08/03/19 03:54 ALT 165 Units/L (12-78) H 08/03/19 03:54 Alkaline Phosphatase 216 Units/L (46-116) H 08/03/19 03:54 Creatine Kinase 275 Units/L (39-308) 08/01/19 10:35 CK-MB (CK-2) 1.5 ng/mL (0-4.0) 08/01/19 10:35 CK/CKMB % Calc 0.6 % (<4) 08/01/19 10:35 Troponin I < 0.02 ng/mL (0-1.5) 08/01/19 10:35 Total Protein 5.2 g/dL (6.4-8.2) L 08/03/19 03:54 Albumin 2.0 g/dL (3.4-5.0) L 08/03/19 03:54 Globulin 3.2 g/dL (2.5-4.5) 08/03/19 03:54 Albumin/Globulin Ratio 0.6 Ratio (1.1-2.1) L 08/03/19 03:54 Specimen Type Random urine 07/30/19 16:50 Urine Color Yellow (YELLOW) 07/30/19 16:50 Urine Appearance Clear (CLEAR) 07/30/19 16:50 Urine pH 5.0 (5.0 - 8.0) 07/30/19 16:50 Ur Specific [place] 1.015 (1.000-1.030) 07/30/19 16:50 Urine Protein 2+ (NEGATIVE) 07/30/19 16:50 Urine Glucose (UA) 4+ (NEGATIVE) 07/30/19 16:50 Urine Ketones 4+ (NEGATIVE) 07/30/19 16:50 Urine Occult Blood 1+ (NEGATIVE) 07/30/19 16:50 Urine Nitrite Negative (NEGATIVE) 07/30/19 16:50 Urine Bilirubin Negative (NEGATIVE) 07/30/19 16:50 Urine Urobilinogen Normal (NORMAL) 07/30/19 16:50 Ur Leukocyte Esterase Negative (NEGATIVE) 07/30/19 16:50 Urine RBC 0-2 /HPF (0-3) 07/30/19 16:50 Urine WBC 0-2 /HPF (0-5) 07/30/19 16:50 Ur Squamous Epith Cells Negative /HPF (NEGATIVE) 07/30/19 16:50 Urine Bacteria Trace /HPF (NEGATIVE) 07/30/19 16:50 Ur Culture Indicated? No/not indicated 07/30/19 16:50 Acetaminophen 2.8 ug/mL (10-30) L 08/02/19 10:20 Acetone, Semi-Quant Small (NEGATIVE) H 07/30/19 16:15 - Plan (1) DKA (diabetic ketoacidosis) Status: Acute Qualifiers: Diabetes mellitus type: type 1 Diabetes mellitus complication detail: without coma Qualified Code(s): E10.10 - Type 1 diabetes mellitus with ketoacidosis without coma Plan: NORMAL SALINE WITH ONE AMP OF BICARB AT 250ML/HR, HUMULIN R SLIDING SCALE, BACTRIM DS FOR FOOT WOUND, AND HOME MEDICATIONS WERE RESUMED (2) Bronchopneumonia Status: Acute Plan: iv fortaz, iv levaquin, respiratory tx, continue to monitor (3) Diabetic gastroparesis Status: Chronic (4) Altered mental status Status: Acute Qualifiers: Altered mental status type: persistent vegetative state Qualified Code(s): R40.3 - Persistent vegetative state (5) Nausea and vomiting in adult patient Status: Acute (6) Elevated LFTs Status: Acute Plan: OBTAIN LIVER US, CONTINUE TO MONITOR
[2019-08-03] MEDS: LEVAQUIN PREMIX IV 750 MG 750 MG/150 ML BAG IV SCH (19:00)
[2019-08-03] MEDS: SNACK - Diabetic Appropriate PO SCH (20:15)
[2019-08-03] MEDS: DUONEB 0.5 MG/3 MG (3 mL) NEB SCH (20:35)
[2019-08-03] MEDS: COZAAR PO SCH (22:06)
[2019-08-03] MEDS: FORTAZ or TAZICEF VIAL INJ 1 G in NS 100 ML IV + SPIKE MINIBAG* 100 ML IV SCH (22:07)
[2019-08-04] MEDS: NS 1000 ML 1,000 ML IV SCH ×7 (01:45→19:41)
[2019-08-04] MEDS: NORCO 10/325 TAB PO PRN (05:01)
[2019-08-04] MEDS: FORTAZ or TAZICEF VIAL INJ 1 G in NS 100 ML IV + SPIKE MINIBAG* 100 ML IV SCH ×3 (05:01→21:57)
[2019-08-04] MEDS: DEMEROL INJ IVP PRN ×2 (05:03→12:06)
[2019-08-04 05:18] LABS: BASOPHILS # (AUTO) 0.1 X10^3/uL (0.0-0.1); BASOPHILS % (AUTO) 0.9 % (0.2-1.0); EOSINOPHILS # (AUTO) 0.1 x10^3/uL (0.0-0.2); EOSINOPHILS % (AUTO) 1.5 % (0.9-2.9); HEMATOCRIT 27.2 % (42.0-54.0); HEMOGLOBIN 8.9 g/dL (13.5-18.0); LYMPHOCYTES # (AUTO) 1.1 X10^3/uL (1.3-2.9); LYMPHOCYTES % (AUTO) 12.6 % (21.0-51.0); MEAN CORPUSCULAR HGB CONC 32.8 g/dL (33.0-35.0); MEAN CORPUSCULAR VOLUME 76.1 fL (80.0-100.0); MONOCYTES # (AUTO) 0.4 x10^3/uL (0.3-0.8); NEUTROPHILS # (AUTO) 7.3 x10^3/uL (2.2-4.8); PLATELET COUNT 174 X10^3/uL (150.0-450.0); RED BLOOD COUNT 3.57 X10^6/uL (4.7-6.0); RED CELL DISTRIBUTION WIDTH 16.6 % (11.6-16.5)
[2019-08-04] MEDS: CARAFATE PO SCH ×4 (05:30→21:55)
[2019-08-04] MEDS: HumuLIN R SC PRN ×2 (05:32→11:13)
[2019-08-04 05:35] LABS: PLATELET MORPHOLOGY COMMENT NORMAL (NORMAL)
[2019-08-04 05:47] LABS: ALANINE AMINOTRANSFERASE 115 Units/L (12-78); ALBUMIN 2.3 g/dL (3.4-5.0); ALKALINE PHOSPHATASE 222 Units/L (46-116); ASPARTATE AMINO TRANSFERASE 47 Units/L (15-37); BLOOD UREA NITROGEN 7 mg/dL (7-18); CALCIUM 6.8 mg/dL (8.5-10.1); CARBON DIOXIDE 24.9 mmol/L (21-32); CHLORIDE 104 mmol/L (98-107); COR CA(FOR HYPOALB) 8.2 mg/dL (8.5-10.1); COR NA(FOR HYPERGLY) 139 mmol/L (136-145); CREATININE 1.09 mg/dL (0.70-1.30); SODIUM 135 mmol/L (136-145); TOTAL PROTEIN 6.2 g/dL (6.4-8.2); eGFR NON BLACK RACES > 60 (>60)
--- NOTE | 2019-08-04 06:20 | RAD ---
HISTORYShortness ofSTUDYCHEST, 1 VIEWCOMPARSelect [facility]hilluary 2019FINDINGSThere is a port present on the left. The heart is within normal limits in size. The jennifer are normal. The lungs are free of acute alveolar infiltrates. No pleural effusions are identified. The bony thorax is unremarkable.IMPRESSIONNo significant abnormality identifiedElectronically signed by: TONY FLORES (Aug 04, 2019 06:19:00)
[2019-08-04] MEDS: DUONEB 0.5 MG/3 MG (3 mL) NEB SCH ×4 (08:24→20:00)
[2019-08-04] MEDS: GENTAMICIN TOPICAL OINT TOP SCH ×2 (09:30→21:56)
[2019-08-04] MEDS: K-DUR TAB 20 MEQ PO SCH (09:34)
[2019-08-04] MEDS: GLUCOTROL PO SCH (09:34)
[2019-08-04] MEDS: PROTONIX TAB 40 MG PO SCH ×2 (09:34→21:57)
[2019-08-04] MEDS: LEVAQUIN PREMIX IV 750 MG 750 MG/150 ML BAG IV SCH (09:34)
[2019-08-04] MEDS: PEPCID TAB 20 MG PO SCH (09:34)
[2019-08-04] MEDS: LEVEMIR SC SCH (09:35)
[2019-08-04] MEDS: CARDIZEM CD 120 MG 24-HR PO SCH (09:35)
[2019-08-04] MEDS: BACTRIM DS TAB PO SCH ×2 (09:35→21:55)
[2019-08-04] MEDS ORDERED: COLACE CAP 100 MG PO ONE (12:30)
[2019-08-04] MEDS: COLACE CAP 100 MG PO SCH ×2 (12:38→21:56)
[2019-08-04] MEDS: MILK OF MAGNESIA PO PRN (12:39)
--- NOTE | 2019-08-04 17:41 | PCM.PROG ---
Progress Note - Progress Note for Day of Date of Exam: 08/04/19 - Subjective Subjective: WAS ADMITTED FOR TREATMENT OF DKA, BRONCHOPNEUMONIA, INTRACTABLE NAUSEA AND VOMITING, ABDOMINAL PAIN, AND DIABETIC GASTROPARESIS. TODAY, HE IS ALERT AND ORIENTED, LYING IN BED ON MORNING ROUNDS. HE CONTINUES WITH COMPLAINTS OF ABDOMINAL PAIN, NAUSEA, WEAKNESS, AND SOB. ON EXAMINATION, HEART IS REGULAR IN RATE AND RHYTHM. BILATERAL LUNGS ARE NOTED WITH DIMINISHED LUNG SOUNDS THROUGHOUT. ABDOMEN IS ROUND, SOFT, AND NON-TEDNER WITH NORMAL BOWEL SOUNDS NOTED IN ALL QUADRANTS. THERE ARE TWO, STAGE II, DIABETIC ULCERS TO THE RIGHT FOOT. HIS VITALS THIS MORNING ARE: 98.3-84-20-98%-147/78. LABS WERE OBTAINED. ABNORMAL LAB VALUES INCLUDE THE FOLLOWING: rbc 3.57, hgb 8.9, hct 27.2, sodium 135, glucose 280, calcium 6.8, ast 47, alt 115, alk phos 222, total protein 6.2, albumin 2.3. BLOOD CULTURES ARE PENDING. A CHEST XRAY WAS OBTAINED TODAY AND REVEALED: No significant abnormality identified. HE IS CURRENTLY RECEIVING NORMAL SALINE, IV FORTAZ, IV LEVAQUIN, RESPIRATORY TX, HUMULIN R SLIDING SCALE, BACTRIM DS FOR FOOT WOUND, AND HOME MEDICATIONS WERE RESUMED. WE WILL CONTINUE WITH CURRENT PLAN OF CARE TODAY. OTHERWISE, WE WILL FOLLOW UP WITH AM LABS AND CONTINUE TO MONITOR. - Past Medical Family Social History Past Med/Fam/Surg Hx: No changes since H&P Allergies: Allergies codeine Allergy (Verified 04/27/19 00:57) morphine Allergy (Verified 04/27/19 00:57) - Review of Systems ROS: No change since H&P - Vital Signs and I&O's Vital Signs: Temperature 98.1 F Pulse Rate [Right Brachial] 89 Pulse Rate [Left Brachial] 72 Pulse Rate 87 Respiratory Rate 20 Blood Pressure [Right Arm] 154/90 Blood Pressure [Left Arm] 151/78 Blood Pressure 112/73 O2 Sat by Pulse Oximetry 98 Intake and Output: Intake & Output 08/02/19 08/03/19 08/04/19 08/05/19 11:59 11:59 11:59 11:59 Intake Total 3230 / 3230 3280 / 3280 6660 / 6660 480 / 480 Output Total 3425 / 3425 1302 / 1302 Balance -195 / -195 1977 / 1977 6660 / 6660 480 / 480 - Physical Exam Oriented: Normal Eyes: Normal Ear: Normal Nose: Normal Throat: Normal Respiratory: Generalized, Diminished Cardiovascular: Normal : Normal Auscultation: Bowel Sounds: Normal Tenderness: Normal Skin: Wound (RIGHT FOOT STAGE 2 DIABETIC ULCER X 2) Musculoskeletal: Normal Psychiatric: Normal Mood Description: Calm Affect: Normal Speech Pattern: Clear, Appropriate - Laboratory and Diagnostics Result Diagrams: 08/04/19 04:40 08/04/19 04:40 Labs: 08/02/19 10:33 Blood Blood Culture - Preliminary 08/02/19 10:20 Blood Blood Culture - Preliminary Laboratory WBC 9.0 X10^3/uL (3.6-10.0) 08/04/19 04:40 RBC 3.57 X10^6/uL (4.7-6.0) L 08/04/19 04:40 Hgb 8.9 g/dL (13.5-18.0) L 08/04/19 04:40 Hct 27.2 % (42.0-54.0) L 08/04/19 04:40 MCV 76.1 fL (80.0-100.0) L 08/04/19 04:40 MCH 25.0 pg (27.0-34.0) L 08/04/19 04:40 MCHC 32.8 g/dL (33.0-35.0) L 08/04/19 04:40 RDW 16.6 % (11.6-16.5) H 08/04/19 04:40 Plt Count 174 X10^3/uL (150.0-450.0) 08/04/19 04:40 Plt Count Comment Adequate (ADEQUATE) 08/04/19 04:40 MPV 9.0 fL (7.4-11.0) 08/04/19 04:40 Neut % (Auto) 81.0 % (42.0-75.0) H 08/04/19 04:40 Lymph % (Auto) 12.6 % (21.0-51.0) L 08/04/19 04:40 Green % (Auto) 4.0 % (0.0-13.0) 08/04/19 04:40 Eos % (Auto) 1.5 % (0.9-2.9) 08/04/19 04:40 Baso % (Auto) 0.9 % (0.2-1.0) 08/04/19 04:40 Neut # (Auto) 7.3 x10^3/uL (2.2-4.8) H 08/04/19 04:40 Lymph # (Auto) 1.1 X10^3/uL (1.3-2.9) L 08/04/19 04:40 Green # (Auto) 0.4 x10^3/uL (0.3-0.8) 08/04/19 04:40 Eos # (Auto) 0.1 x10^3/uL (0.0-0.2) 08/04/19 04:40 Baso # (Auto) 0.1 X10^3/uL (0.0-0.1) 08/04/19 04:40 Absolute Nucleated RBC 0.0 /100WBC 08/04/19 04:40 Total Counted 100 07/30/19 16:15 Neutrophils % (Manual) 87 % (39-76) H 07/30/19 16:15 Band Neutrophils % 1 % (0-10) 07/30/19 16:15 Lymphocytes % (Manual) 9 % (13-43) L 07/30/19 16:15 Monocytes % (Manual) 3 % (4-9) L 07/30/19 16:15 Plt Morphology Comment Normal (NORMAL) 08/04/19 04:40 RBC Morphology Normal (NORMAL) 08/04/19 04:40 Hypochromasia Slight A 08/02/19 10:20 Sample Site Rr 08/03/19 06:00 ABG pH 7.450 (7.35-7.45) 08/03/19 06:00 ABG pCO2 42.0 mmHg (35.0-45.0) 08/03/19 06:00 ABG pO2 58.0 mmHg (80.0-100.0) L 08/03/19 06:00 ABG HCO3 29.2 mmol/L (22-26) H 08/03/19 06:00 ABG O2 Saturation 91.0 % (90-100) 08/03/19 06:00 ABG Base Excess 4.7 mmol/L (-2.0-2.0) H 08/03/19 06:00 Wang Test Pos 08/03/19 06:00 A-a Gradient 39.0 mmHg 08/03/19 06:00 FiO2 21.0 08/03/19 06:00 Blood Gas Comments Les well 08/03/19 06:00 Sodium 135 mmol/L (136-145) L 08/04/19 04:40 Corrected Sodium 139 mmol/L (136-145) 08/04/19 04:40 Potassium 4.3 mmol/L (3.5-5.1) 08/04/19 04:40 Chloride 104 mmol/L (98-107) 08/04/19 04:40 Carbon Dioxide 24.9 mmol/L (21-32) 08/04/19 04:40 BUN 7 mg/dL (7-18) 08/04/19 04:40 Creatinine 1.09 mg/dL (0.70-1.30) 08/04/19 04:40 Est GFR (MDRD) Af Amer > 60 (>60) 08/04/19 04:40 Est GFR (MDRD) Non-Af > 60 (>60) 08/04/19 04:40 Glucose 280 mg/dL (65-99) H 08/04/19 04:40 POC Glucose (mg/dL) 154 mg/dL (65-99) H 08/04/19 16:40 Lactic Acid 2.0 mmol/L (0.4-2.0) 08/02/19 10:20 Calcium 6.8 mg/dL (8.5-10.1) L 08/04/19 04:40 Corrected Calcium 8.2 mg/dL (8.5-10.1) L 08/04/19 04:40 Total Bilirubin 0.20 mg/dL (0.2-1.0) 08/04/19 04:40 AST 47 Units/L (15-37) H 08/04/19 04:40 ALT 115 Units/L (12-78) H 08/04/19 04:40 Alkaline Phosphatase 222 Units/L (46-116) H 08/04/19 04:40 Creatine Kinase 275 Units/L (39-308) 08/01/19 10:35 CK-MB (CK-2) 1.5 ng/mL (0-4.0) 08/01/19 10:35 CK/CKMB % Calc 0.6 % (<4) 08/01/19 10:35 Troponin I < 0.02 ng/mL (0-1.5) 08/01/19 10:35 Total Protein 6.2 g/dL (6.4-8.2) L 08/04/19 04:40 Albumin 2.3 g/dL (3.4-5.0) L 08/04/19 04:40 Globulin 3.9 g/dL (2.5-4.5) 08/04/19 04:40 Albumin/Globulin Ratio 0.6 Ratio (1.1-2.1) L 08/04/19 04:40 Specimen Type Random urine 07/30/19 16:50 Urine Color Yellow (YELLOW) 07/30/19 16:50 Urine Appearance Clear (CLEAR) 07/30/19 16:50 Urine pH 5.0 (5.0 - 8.0) 07/30/19 16:50 Ur Specific Terral 1.015 (1.000-1.030) 07/30/19 16:50 Urine Protein 2+ (NEGATIVE) 07/30/19 16:50 Urine Glucose (UA) 4+ (NEGATIVE) 07/30/19 16:50 Urine Ketones 4+ (NEGATIVE) 07/30/19 16:50 Urine Occult Blood 1+ (NEGATIVE) 07/30/19 16:50 Urine Nitrite Negative (NEGATIVE) 07/30/19 16:50 Urine Bilirubin Negative (NEGATIVE) 07/30/19 16:50 Urine Urobilinogen Normal (NORMAL) 07/30/19 16:50 Ur Leukocyte Esterase Negative (NEGATIVE) 07/30/19 16:50 Urine RBC 0-2 /HPF (0-3) 07/30/19 16:50 Urine WBC 0-2 /HPF (0-5) 07/30/19 16:50 Ur Squamous Epith Cells Negative /HPF (NEGATIVE) 07/30/19 16:50 Urine Bacteria Trace /HPF (NEGATIVE) 07/30/19 16:50 Ur Culture Indicated? No/not indicated 07/30/19 16:50 Acetaminophen 2.8 ug/mL (10-30) L 08/02/19 10:20 Acetone, Semi-Quant Negative (NEGATIVE) 08/03/19 22:34 - Plan (1) DKA (diabetic ketoacidosis) Status: Acute Qualifiers: Diabetes mellitus type: type 1 Diabetes mellitus complication detail: without coma Qualified Code(s): E10.10 - Type 1 diabetes mellitus with ketoacidosis without coma Plan: NORMAL SALINE WITH ONE AMP OF BICARB AT 250ML/HR, HUMULIN R SLIDING SCALE, BACTRIM DS FOR FOOT WOUND, AND HOME MEDICATIONS WERE RESUMED (2) Bronchopneumonia Status: Acute Plan: iv fortaz, iv levaquin, respiratory tx, continue to monitor (3) Diabetic gastroparesis Status: Chronic (4) Altered mental status Status: Acute Qualifiers: Altered mental status type: persistent vegetative state Qualified Code(s): R40.3 - Persistent vegetative state (5) Nausea and vomiting in adult patient Status: Acute (6) Elevated LFTs Status: Acute Plan: OBTAIN LIVER US, CONTINUE TO MONITOR
[2019-08-04] MEDS: SNACK - Diabetic Appropriate PO SCH (21:55)
[2019-08-04] MEDS: COZAAR PO SCH (21:56)
[2019-08-05] MEDS: DEMEROL INJ IVP PRN ×2 (00:29→11:07)
[2019-08-05] MEDS: NS 1000 ML 1,000 ML IV SCH ×4 (00:30→12:20)
[2019-08-05] MEDS: FORTAZ or TAZICEF VIAL INJ 1 G in NS 100 ML IV + SPIKE MINIBAG* 100 ML IV SCH (05:18)
[2019-08-05] MEDS: CARAFATE PO SCH ×2 (05:38→11:07)
[2019-08-05 06:33] LABS: BASOPHILS % (AUTO) 0.6 % (0.2-1.0); EOSINOPHILS # (AUTO) 0.2 x10^3/uL (0.0-0.2); EOSINOPHILS % (AUTO) 2.2 % (0.9-2.9); HEMATOCRIT 26.2 % (42.0-54.0); HEMOGLOBIN 8.8 g/dL (13.5-18.0); LYMPHOCYTES # (AUTO) 1.3 X10^3/uL (1.3-2.9); MEAN CORPUSCULAR HEMOGLOBIN 25.3 pg (27.0-34.0); MEAN CORPUSCULAR HGB CONC 33.4 g/dL (33.0-35.0); MEAN CORPUSCULAR VOLUME 75.7 fL (80.0-100.0); MEAN PLATELET VOLUME 8.5 fL (7.4-11.0); MONOCYTES # (AUTO) 0.5 x10^3/uL (0.3-0.8); MONOCYTES % (AUTO) 7.6 % (0.0-13.0); NEUTROPHILS # (AUTO) 5.1 x10^3/uL (2.2-4.8); NEUTROPHILS % (AUTO) 71.6 % (42.0-75.0); PLATELET COUNT 210 X10^3/uL (150.0-450.0); RED BLOOD COUNT 3.46 X10^6/uL (4.7-6.0); RED CELL DISTRIBUTION WIDTH 16.5 % (11.6-16.5); WHITE BLOOD COUNT 7.1 X10^3/uL (3.6-10.0)
[2019-08-05 06:41] LABS: ALANINE AMINOTRANSFERASE 83 Units/L (12-78); ALBUMIN 2.4 g/dL (3.4-5.0); ALKALINE PHOSPHATASE 196 Units/L (46-116); ASPARTATE AMINO TRANSFERASE 30 Units/L (15-37); BLOOD UREA NITROGEN 6 mg/dL (7-18); CALCIUM 7.7 mg/dL (8.5-10.1); CARBON DIOXIDE 25.1 mmol/L (21-32); CHLORIDE 102 mmol/L (98-107); COR NA(FOR HYPERGLY) 134 mmol/L (136-145); CREATININE 1.04 mg/dL (0.70-1.30); SODIUM 132 mmol/L (136-145); TOTAL PROTEIN 6.3 g/dL (6.4-8.2); eGFR NON BLACK RACES > 60 (>60)
[2019-08-05 06:52] LABS: PLATELET MORPHOLOGY COMMENT NORMAL (NORMAL)
--- NOTE | 2019-08-05 07:41 | RAD ---
HISTORYShortness of breathSTUDYCHEST, 1 VIEWCOMPARISONbruary 2019FINDINGSThere is a port present on the left. The heart is within normal limits in size. The jennifer are normal. The lung tejada are clear. No pleural effusions are identified. Bony thorax is unremarkable.IMPRESSIONNo significant abnormality identifiedElectronically signed by: TONY FLORES (Aug 05, 2019 07:40:33)
[2019-08-05] MEDS: LEVEMIR SC SCH (08:32)
[2019-08-05] MEDS: LEVAQUIN PREMIX IV 750 MG 750 MG/150 ML BAG IV SCH (08:32)
[2019-08-05] MEDS: K-DUR TAB 20 MEQ PO SCH (08:33)
[2019-08-05] MEDS: PEPCID TAB 20 MG PO SCH (08:33)
[2019-08-05] MEDS: PROTONIX TAB 40 MG PO SCH (08:34)
[2019-08-05] MEDS: GLUCOTROL PO SCH (08:34)
[2019-08-05] MEDS: MILK OF MAGNESIA PO PRN (08:35)
[2019-08-05] MEDS: BACTRIM DS TAB PO SCH (08:36)
[2019-08-05] MEDS: CARDIZEM CD 120 MG 24-HR PO SCH (08:36)
[2019-08-05] MEDS: COLACE CAP 100 MG PO SCH (08:36)
[2019-08-05] MEDS: GENTAMICIN TOPICAL OINT TOP SCH (08:38)
[2019-08-05] MEDS: DUONEB 0.5 MG/3 MG (3 mL) NEB SCH ×2 (09:25→12:08)
[2019-08-05] MEDS: HumuLIN R SC PRN (11:14)
[2019-08-05 12:19] VITALS: BP 138/70
[2019-08-06 06:19] LABS: HEPATITIS B SURFACE ANTIGEN Negative (Negative)
== END 2019-08-05 13:05 | disposition home or self-care (01) | DRG 637 ==
LOC: ER 15:23 → MED/SURG 17:10
PROVIDERS: ADMIT Internal Medicine; ATTEND Internal Medicine
DX: K31.84 Gastroparesis; Z79.4 Long term (current) use of insulin; J18.0 Bronchopneumonia, unspecified organism; I10 Essential (primary) hypertension; R11.2 Nausea with vomiting, unspecified; R94.5 Abnormal results of liver function studies; E10.10 Type 1 diabetes mellitus with ketoacidosis without coma; I48.91 Unspecified atrial fibrillation; E10.621 Type 1 diabetes mellitus with foot ulcer; R06.02 Shortness of breath
CPT/HCPCS: 36415; 36600; 71010; 71045; 74177; 76705; 80053; 80074; 80307; 81001; 82009; 82550; 82553; 82803; 82947; 83605; 84484; 85025; 87040; 93005; 94640; 96365; 96367; 96374; 96375; 99284; A4216; A4222; J0713; J1642; J1815; J1956; J2175; J3490; J7030; J7040; J7050; J7620

== ENCOUNTER 2019-08-15 09:37 | Observation (INO) ==
[2019-08-15 09:45] VITALS: BMI 30.7
[2019-08-15] MEDS ORDERED: DEMEROL INJ IVP ONE (10:20)
[2019-08-15] MEDS ORDERED: NS 1000 ML 1,000 ML IV ONE (10:20)
[2019-08-15] MEDS ORDERED: REGLAN INJ 10 MG VIAL IVP ONE (10:21)
[2019-08-15] MEDS ORDERED: REGLAN INJ 10 MG VIAL ONE (10:24)
[2019-08-15] MEDS ORDERED: NS 1000 ML 1,000 ML ONE (10:24)
[2019-08-15] MEDS ORDERED: DEMEROL INJ ONE (10:25)
--- NOTE | 2019-08-15 10:37 | DR.EXTPAIN ---
HPI Time seen Time Seen by Provider: 08/15/19 10:21 PMH PMH Past Medical History: Yes Past Medical History: Diabetes and Hypertension Past Medical History Comment: PANCREATITIS Past Surgical History: Yes Surgical History: Cholecystectomy, Ortho Surgery and Other Family History History of Family Medical Conditions: Yes Family Medical History: Diabetes Mellitus Social History Does any household member use tobacco: No Alcohol Use: None Do you use any recreational Drugs:: No Lives With: Spouse and Family Lives Where: Home infectious screening Have you traveled outside the country in the last 6 months?: No Isolation: Standard ROS Review of Systems Constitutional: See HPI, Malaise, Weakness, Fatigue and Loss of Appetite Eyes: No Symptoms Reported ENTM: No Symptoms Reported Respiratoy: No Symptoms Reported Cardiovascular: No Symptoms Reported Gastrointestinal/Abdominal: See HPI, Abdominal Pain, Nausea and Vomiting Genitourinary: No Symptoms Reported Neurological: No Symptoms Reported Musculoskeletal: No Symptoms Reported Integumentary: No Symptoms Reported PE Vital Signs Vitals: Temperature 97.5 F Pulse Rate 85 Respiratory Rate 20 Blood Pressure [Right Arm] 138/70 Blood Pressure 130/81 O2 Sat by Pulse Oximetry 99 General Limitations: No Limitations General Appearance: Anxious and In Distress Head Head Exam: Normal Inspection Eyes Eye exam: Normal Appearance ENT ENT Exam: Normal Exam Neck Neck Exam: Normal Inspection Chest Chest Inspection: Normal Inspection Respiratory Respiratory Exam: Normal Lung Sounds Bilat Abdominal Exam Abdominal Exam: Normal Inspection, Normal Bowel Sounds and Soft; negative Guarding Extremities Extremities Exam: Normal Inspection Lower Extremities Hip/Pelvis Exam: Normal Inspection Gait Exam: Not Tested/Not Observed Neurological Neurological Exam: Oriented X3; negative Motor Sensory Deficit Skin Skin Exam: Warm, Dry and Intact COURSE Treatment Treatment: improved w IVF, insulin, antiemetics- pain meds in ED. kept NPO ROR Labs Reviewed Result Diagrams: 08/15/19 10:33 08/15/19 10:33 Laboratory: WBC 9.0 X10^3/uL (3.6-10.0) 08/15/19 10:33 RBC 4.27 X10^6/uL (4.7-6.0) L 08/15/19 10:33 Hgb 10.3 g/dL (13.5-18.0) L 08/15/19 10:33 Hct 31.5 % (42.0-54.0) L 08/15/19 10:33 MCV 73.9 fL (80.0-100.0) L 08/15/19 10:33 MCH 24.2 pg (27.0-34.0) L 08/15/19 10:33 MCHC 32.8 g/dL (33.0-35.0) L 08/15/19 10:33 RDW 17.4 % (11.6-16.5) H 08/15/19 10:33 Plt Count 432 X10^3/uL (150.0-450.0) 08/15/19 10:33 Plt Count Comment Adequate (ADEQUATE) 08/15/19 10:33 MPV 7.0 fL (7.4-11.0) L 08/15/19 10:33 Neut % (Auto) 83.1 % (42.0-75.0) H 08/15/19 10:33 Lymph % (Auto) 10.4 % (21.0-51.0) L 08/15/19 10:33 Lane % (Auto) 6.3 % (0.0-13.0) 08/15/19 10:33 Eos % (Auto) 0.0 % (0.9-2.9) L 08/15/19 10:33 Baso % (Auto) 0.2 % (0.2-1.0) 08/15/19 10:33 Neut # (Auto) 7.5 x10^3/uL (2.2-4.8) H 08/15/19 10:33 Lymph # (Auto) 0.9 X10^3/uL (1.3-2.9) L 08/15/19 10:33 Lane # (Auto) 0.6 x10^3/uL (0.3-0.8) 08/15/19 10:33 Eos # (Auto) 0.0 x10^3/uL (0.0-0.2) 08/15/19 10:33 Baso # (Auto) 0.0 X10^3/uL (0.0-0.1) 08/15/19 10:33 Absolute Nucleated RBC 0.1 /100WBC 08/15/19 10:33 Plt Morphology Comment Normal (NORMAL) 08/15/19 10:33 RBC Morphology Normal (NORMAL) 08/15/19 10:33 Sodium 134 mmol/L (136-145) L 08/15/19 10:33 Corrected Sodium 138 mmol/L (136-145) 08/15/19 10:33 Potassium 4.1 mmol/L (3.5-5.1) 08/15/19 10:33 Chloride 97 mmol/L (98-107) L 08/15/19 10:33 Carbon Dioxide 28.9 mmol/L (21-32) 08/15/19 10:33 BUN 24 mg/dL (7-18) H 08/15/19 10:33 Creatinine 1.26 mg/dL (0.70-1.30) 08/15/19 10:33 Est GFR (MDRD) Af Amer > 60 (>60) 08/15/19 10:33 Est GFR (MDRD) Non-Af > 60 (>60) 08/15/19 10:33 Glucose 264 mg/dL (65-99) H 08/15/19 10:33 POC Glucose (mg/dL) 228 mg/dL (65-99) H 08/15/19 12:32 Calcium 8.9 mg/dL (8.5-10.1) 08/15/19 10:33 Corrected Calcium TNP 08/15/19 10:33 Total Bilirubin 0.50 mg/dL (0.2-1.0) 08/15/19 10:33 AST 19 Units/L (15-37) 08/15/19 10:33 ALT 27 Units/L (12-78) 08/15/19 10:33 Alkaline Phosphatase 148 Units/L (46-116) H 08/15/19 10:33 Total Protein 8.2 g/dL (6.4-8.2) 08/15/19 10:33 Albumin 3.4 g/dL (3.4-5.0) 08/15/19 10:33 Globulin 4.8 g/dL (2.5-4.5) H 08/15/19 10:33 Albumin/Globulin Ratio 0.7 Ratio (1.1-2.1) L 08/15/19 10:33 Lipase 80 Units/L (73-393) 08/15/19 10:33 Opioid Opioid Risk Tool Personal Hx of Substance Abuse: Prescription Drugs Age (Paddy box if 16-45): No History of Preadolescent Sexual Abuse: No Total: 0 Total Score Risk Category: Low Risk Copyright: Steven STEPHEN predicting aberrant behaviors Diagnosis Discharge Problem: Diabetes mellitus type 1, Diabetic gastroparesis ADDITIONAL NOTES Additional Notes Additional Notes: obs to dr chance
[2019-08-15 10:43] LABS: BASOPHILS % (AUTO) 0.2 % (0.2-1.0); HEMATOCRIT 31.5 % (42.0-54.0); HEMOGLOBIN 10.3 g/dL (13.5-18.0); LYMPHOCYTES # (AUTO) 0.9 X10^3/uL (1.3-2.9); LYMPHOCYTES % (AUTO) 10.4 % (21.0-51.0); MEAN CORPUSCULAR HEMOGLOBIN 24.2 pg (27.0-34.0); MEAN CORPUSCULAR HGB CONC 32.8 g/dL (33.0-35.0); MEAN CORPUSCULAR VOLUME 73.9 fL (80.0-100.0); MONOCYTES # (AUTO) 0.6 x10^3/uL (0.3-0.8); MONOCYTES % (AUTO) 6.3 % (0.0-13.0); NEUTROPHILS # (AUTO) 7.5 x10^3/uL (2.2-4.8); NEUTROPHILS % (AUTO) 83.1 % (42.0-75.0); PLATELET COUNT 432 X10^3/uL (150.0-450.0); RED BLOOD COUNT 4.27 X10^6/uL (4.7-6.0); RED CELL DISTRIBUTION WIDTH 17.4 % (11.6-16.5)
[2019-08-15 10:51] LABS: ALANINE AMINOTRANSFERASE 27 Units/L (12-78); ALBUMIN 3.4 g/dL (3.4-5.0); ALKALINE PHOSPHATASE 148 Units/L (46-116); ASPARTATE AMINO TRANSFERASE 19 Units/L (15-37); BLOOD UREA NITROGEN 24 mg/dL (7-18); CALCIUM 8.9 mg/dL (8.5-10.1); CARBON DIOXIDE 28.9 mmol/L (21-32); CHLORIDE 97 mmol/L (98-107); COR NA(FOR HYPERGLY) 138 mmol/L (136-145); CREATININE 1.26 mg/dL (0.70-1.30); LIPASE 80 Units/L (73-393); SODIUM 134 mmol/L (136-145); TOTAL PROTEIN 8.2 g/dL (6.4-8.2); eGFR NON BLACK RACES > 60 (>60)
[2019-08-15 11:30] LABS: PLATELET MORPHOLOGY COMMENT NORMAL (NORMAL)
--- NOTE | 2019-08-15 11:43 | CT ---
HISTORYSTATES HE JUST WOKE UP AND STARTED HURTING WITH ABDOMINAL PAIN AND VOMITING. PT DENIES CHECKING HIS GLUCOSE.STUDYABDOMEN/PELVIS W/O [id number] axial images of the abdomen and pelvis were obtained from the lung bases to the pubic symphysis without the administration of IV contrast. Dose reduction techniques including Automated Exposure Control (AEC) and adjustment of mA and kV were utilized.FINDINGS[The lung bases are clear. Mild dilatation of the distal esophagus and distal esophageal thickening. Given limitations of a noncontrast examination no focal hepatic lesion is identified. Previous cholecystectomy. Bile ducts are normal in caliber. The spleen is normal. The pancreas and adrenal glands are normal. Neither kidney demonstrates evidence of nephrolithiasis, hydronephrosis or mass. Urinary bladder is normal. Prostate gland is normal. The rectum and colon are normal. Previous appendectomy is noted. Upper GI tract is otherwise normal. Abdominal aorta is normal in caliber. No enlarged abdominal pelvic lymph node. Review of bone windows demonstrates no acute osseous abnormality. Moderate spondylosis at L5-S1.]IMPRESSIONNo acute inflammatory process identified within the abdomen or pelvis.Mild dilatation of the distal esophagus and esophageal thickening, correlate for signs of esophagitis and/or gastroesophageal reflux disease.Incidental, nonacute findings as described above.Electronically signed by: JOAQUIN PUENTE (Aug 15, 2019 11:42:12)
[2019-08-15] MEDS: HumuLIN R SUBCUT PRN ×2 (18:31→20:42)
[2019-08-15] MEDS: CARAFATE PO SCH ×2 (18:32→20:41)
[2019-08-15] MEDS: ULTRAM PO PRN ×2 (19:06→23:10)
[2019-08-15] MEDS ORDERED: SNACK - Diabetic Appropriate PO SCH (20:00)
[2019-08-15] MEDS: PROTONIX TAB 40 MG PO SCH (20:41)
[2019-08-15] MEDS ORDERED: RESTORIL CAP 30 MG PO SCH (21:00)
[2019-08-15] MEDS ORDERED: COZAAR PO SCH (21:00)
[2019-08-16] MEDS: ULTRAM PO PRN (03:12)
[2019-08-16] MEDS: CARAFATE PO SCH (05:49)
[2019-08-16] MEDS: HumuLIN R SUBCUT PRN (05:50)
[2019-08-16 05:51] LABS: BASOPHILS % (AUTO) 0.6 % (0.2-1.0); EOSINOPHILS % (AUTO) 0.3 % (0.9-2.9); HEMATOCRIT 29.8 % (42.0-54.0); HEMOGLOBIN 9.7 g/dL (13.5-18.0); LYMPHOCYTES # (AUTO) 1.3 X10^3/uL (1.3-2.9); LYMPHOCYTES % (AUTO) 19.9 % (21.0-51.0); MEAN CORPUSCULAR HEMOGLOBIN 24.3 pg (27.0-34.0); MEAN CORPUSCULAR HGB CONC 32.5 g/dL (33.0-35.0); MEAN PLATELET VOLUME 7.3 fL (7.4-11.0); MONOCYTES # (AUTO) 0.6 x10^3/uL (0.3-0.8); NEUTROPHILS # (AUTO) 4.5 x10^3/uL (2.2-4.8); NEUTROPHILS % (AUTO) 70.2 % (42.0-75.0); PLATELET COUNT 436 X10^3/uL (150.0-450.0); RED BLOOD COUNT 3.97 X10^6/uL (4.7-6.0); WHITE BLOOD COUNT 6.4 X10^3/uL (3.6-10.0)
[2019-08-16 06:03] LABS: ALANINE AMINOTRANSFERASE 23 Units/L (12-78); ALBUMIN 2.9 g/dL (3.4-5.0); ALKALINE PHOSPHATASE 131 Units/L (46-116); ASPARTATE AMINO TRANSFERASE 12 Units/L (15-37); BLOOD UREA NITROGEN 17 mg/dL (7-18); CALCIUM 8.2 mg/dL (8.5-10.1); CARBON DIOXIDE 27.5 mmol/L (21-32); CHLORIDE 97 mmol/L (98-107); COR CA(FOR HYPOALB) 9.1 mg/dL (8.5-10.1); COR NA(FOR HYPERGLY) 137 mmol/L (136-145); CREATININE 1.13 mg/dL (0.70-1.30); SODIUM 133 mmol/L (136-145); TOTAL PROTEIN 7.3 g/dL (6.4-8.2); eGFR NON BLACK RACES > 60 (>60)
[2019-08-16 06:24] LABS: HYPOCHROMASIA SLIGHT; PLATELET MORPHOLOGY COMMENT NORMAL (NORMAL)
[2019-08-16] MEDS ORDERED: LEVEMIR SC SCH (09:00)
[2019-08-16] MEDS ORDERED: K-DUR TAB 20 MEQ PO SCH (09:00)
[2019-08-16] MEDS: PROTONIX TAB 40 MG PO SCH (09:04)
[2019-08-16 09:25] VITALS: BP 116/72
--- NOTE | 2019-08-16 10:58 | DR.CARTERS ---
Short Stay Summary - Admission Date Date of Admission: 08/15/19 - Discharge Date Discharge Date: 08/16/19 - Admission Diagnoses (1) Diabetic gastroparesis Status: Chronic (2) Diabetes mellitus Status: Chronic (3) Abdominal pain Status: Acute - Hospital Course Hospital Course: IS A 48 YEAR OLD PATIENT OF OURS. HE PRESENTED TO THE ER WITH REPORTS OF LEFT UPPER QUADRANT ABDOMINAL PAIN AND NAUSEA. HE DENIED VOMITING. HE HAS A KNOWN HISTORY OF DIABETES AND DIABETIC GASTROPARESIS. HE REPORTED COMPLIANCE WITH MEDICATIONS AT HOME WITHOUT IMPROVEMENT. ON ARRIVAL TO THE ER, VITALS WERE 97.5-119-16-96%-166/93. LABS WERE OBTAINED. ABNORMAL LAB VALUES INCLUDED THE FOLLOWING: RBC 4.27, HGB 10.3, HCT 31.5, SODIUM 134, CHLORIDE 97, BUN 24, GLUCOSE 264, ALK PHOS 148, GLOBULIN 4.8. AN ABDOMEN/PELVIS CT WITHOUT CONTRAST WAS OBTAINED AND REVEALED: No acute inflammatory process identified within the abdomen or pelvis. Mild dilatation of the distal esophagus and esophageal thickening, correlate for signs of esophagitis and/or gastroesophageal reflux disease. HE WAS GIVEN REGLAN 10MG IV X 1, DEMEROL 50MG IV X 1, AND A NORMAL SALINE BOLUS. HE WAS ADMITTED FOR FURTHER EVALUATION AND TREATMENT OF DIABETIC GASTROPARESIS AND ABDOMINAL PAIN. HE WAS STARTED ON HUMULIN R SLIDING SCALE, LEVEMIR 50 UNITS SC DAILY, PROTONIX 40MG PO BID, CARAFATE 1G PO ACHS, RESTORIL 30MG PO HS, ULTRAM 25MG PO Q4H PRN, AND COZAAR 50MG PO HS. ON THE MORNING FOLLOWING ADMISSION, PATIENT IS ALERT AND ORIENTED, LYING IN BED ON MORNING ROUNDS. HE DENIES NAUSEA, VOMITING, OR ABDOMINAL PAIN TODAY. HE REPORTS FEELING WELL AND DENIES OTHER COMPLAINTS. HIS VITALS THIS MORNING ARE: 98.2-93-20-99%-116/72. LABS WERE OBTAINED. ABNORMAL LAB VALUES INCLUDE THE FOLLOWING: RBC 3.97, HGB 9.7, HCT 29.8, SODIUM 133, CHLORIDE 97, GLUCOSE 285, CALCIUM 8.2, AST 12, ALK PHOS 131, ALBUMIN 2.9. WE PLANNED FOR DISCHARGE. INSTRUCTIONS FOR MEDICATIONS AND FOLLOW UP WERE DISCUSSED WITH PATIENT. HE VERBALIZED UNDERSTANDING OF ALL ORDERS. HE WAS INSTRUCTED TO CONTINUE HIS CURRENT MEDICATIONS AND TO FOLLOW UP IN THE OFFICE IN ONE WEEK. PATIENT WAS DISCHARGED HOME WITH FAMILY IN STABLE CONDITION. - Discharge Medications Discharge Medications: Prescriptions: - Discharge Plan Disposition: 01 HOME, SELF-CARE Condition: Stable - Follow up/Referrals Follow up/Referrals: Williams Worthington [Primary Care Provider] - 08/23/19 11:30 am - Instructions Instructions: Type 2 Diabetes Mellitus, Self Care, Adult, Nausea and Vomiting, Adult, Esti-ed-Hqas, Chronic Kidney Disease, Adult, [id number], Hypertension, Obld-el-Exsy, Blood Glucose Monitoring, Adult, Gastroparesis Additional Instructions: DIABETIC DIET TOLERATED. ACTIVITY TOLERATED. Forms: Excuse From Work or School, Patient Portal
== END 2019-08-16 11:00 | disposition home or self-care (01) ==
LOC: MED/SURG 09:37 → ER 09:37 → MED/SURG 14:52
PROVIDERS: ADMIT Family Medicine; ATTEND Internal Medicine
DX: Z79.899 Other long term (current) drug therapy; E10.43 Type 1 diabetes mellitus with diabetic autonomic (poly)neuropathy; K31.84 Gastroparesis; R94.5 Abnormal results of liver function studies; R10.12 Left upper quadrant pain; E87.1 Hypo-osmolality and hyponatremia
CPT/HCPCS: 36415; 74176; 80053; 83690; 85025; 96365; 96372; 96374; 96375; 99284; G0378; J1642; J1815; J2175; J2765; J7030

== ENCOUNTER 2019-09-21 23:00 | Inpatient (IN) ==
[2019-09-21 23:22] VITALS: BMI 30.5
[2019-09-21] MEDS ORDERED: NS 1000 ML 1,000 ML IV ONE (23:37)
[2019-09-22 00:04] LABS: BASOPHILS # (AUTO) 0.2 X10^3/uL (0.0-0.1); HEMOGLOBIN 7.2 g/dL (13.5-18.0); MEAN CORPUSCULAR VOLUME 71.9 fL (80.0-100.0)
[2019-09-22 00:10] LABS: BASOPHILS % (AUTO) 0.8 % (0.2-1.0); HEMATOCRIT 21.8 % (42.0-54.0); LYMPHOCYTES % (AUTO) 3.4 % (21.0-51.0); MEAN CORPUSCULAR HEMOGLOBIN 23.8 pg (27.0-34.0); MONOCYTES # (AUTO) 1.5 x10^3/uL (0.3-0.8); NEUTROPHILS # (AUTO) 27.4 x10^3/uL (2.2-4.8); NEUTROPHILS % (AUTO) 90.8 % (42.0-75.0); PLATELET COUNT 635 X10^3/uL (150.0-450.0); RED BLOOD COUNT 3.03 X10^6/uL (4.7-6.0); RED CELL DISTRIBUTION WIDTH 18.4 % (11.6-16.5)
[2019-09-22] MEDS ORDERED: NS 1000 ML 1,000 ML ONE ×2 (00:10→01:21)
[2019-09-22 00:13] LABS: ALANINE AMINOTRANSFERASE 36 Units/L (12-78); ALBUMIN 2.1 g/dL (3.4-5.0); ALKALINE PHOSPHATASE 132 Units/L (46-116); ASPARTATE AMINO TRANSFERASE 22 Units/L (15-37); BLOOD UREA NITROGEN 40 mg/dL (7-18); CALCIUM 9.3 mg/dL (8.5-10.1); CARBON DIOXIDE 22.8 mmol/L (21-32); CHLORIDE 92 mmol/L (98-107); COR CA(FOR HYPOALB) 10.8 mg/dL (8.5-10.1); COR NA(FOR HYPERGLY) 129 mmol/L (136-145); CREATININE 2.53 mg/dL (0.70-1.30); SODIUM 126 mmol/L (136-145); TOTAL PROTEIN 10.2 g/dL (6.4-8.2); eGFR NON BLACK RACES 29 (>60)
[2019-09-22 00:14] LABS: SERUM ACETONE NEGATIVE (NEGATIVE)
[2019-09-22 00:34] LABS: BAND NEUTROPHILS % 3 % (0-10); WHITE BLOOD COUNT 30.2 X10^3/uL (3.6-10.0)
[2019-09-22 00:35] LABS: HYPOCHROMASIA 1+; PLATELET MORPHOLOGY COMMENT NORMAL (NORMAL)
--- NOTE | 2019-09-22 00:40 | DR.GENAD ---
HPI Time Seen Time Seen by Provider: 09/21/19 23:36 PCP Primary Care Physician: SAVANNAH HPI Comment HPI Comment: He's felt weak and sob with exertion for the past 2-3 days and started throwing up today with at least two episodes of n/v/d with loose, watery stool; no f/c; his sugars have been running high and he's been taking his medications; occasional cough, no sore throat, headache, dizziness. Complaint/Symptoms Chief Complaint:: PT AMBULATORY IN ED WITH C/O MID UPPER ABD PAIN AND WEAKNESS. BLOOD SUGAR 184 COVID-19 Coronavirus risk:travel/contact w/high risk person: No Has patient experienced Coronavirus symptoms: Yes Coronavirus symptoms experienced: Coughing Source History Provided: Patient Mode of Arrival Mode of Arrival: Ambulatory Timing Onset of Chief Complaint: 09/17/19 PMH PMH Past Medical History: Yes Past Medical History: Anemia, Coronary Artery Disease, Diabetes, Dyslipidemia, GERD, Hypertension and Renal Disease Past Medical History Comment: A-FIB WITH RVR DIABETIC NEUROPATHY GASTROPARESIS Past Surgical History: Yes Surgical History: Cholecystectomy, Ortho Surgery and Other Family History History of Family Medical Conditions: Yes Family Medical History: Diabetes Mellitus Social History Does patient currently use any type of tobacco product: No Have you used tobacco products in the last 12 months: No Type of Tobacco Use: None Does any household member use tobacco: No Alcohol Use: None Do you use any recreational Drugs:: No Lives With: Spouse Lives Where: Home Travel Risk Coronavirus risk:travel/contact w/high risk person: No Has patient experienced Coronavirus symptoms: Yes Coronavirus symptoms experienced: Coughing Infectious screening In the last 2 months have you had wt loss of >10#?: NO Have you had fever, night sweats or hemotysis?: No Have you traveled outside the country in the last 6 months?: No Isolation: Standard ROS Review of Systems Constitutional: See HPI, Malaise and Fatigue Cardiovascular: No Symptoms Reported Gastrointestinal/Abdominal: See HPI Genitourinary: No Symptoms Reported Neurological: See HPI and Weakness Integumentary: No Symptoms Reported Hematologic/Lymphatic: No Symptoms Reported Endocrine: See HPI PE Vital Signs Vitals: Temperature 96.8 F Pulse Rate [Left Brachial] 72 Pulse Rate 72 Respiratory Rate 20 Blood Pressure [Right Arm] 102/55 Blood Pressure 123/65 O2 Sat by Pulse Oximetry 100 General Limitations: No Limitations General Appearance: Alert and In No Apparent Distress Head Head Exam: Normal Inspection, Atraumatic and Normocephalic Eyes Eye exam: Normal Appearance, PERRL and EOMI ENT ENT Exam: Normal Exam Neck Neck Exam: Normal Inspection, Full ROM and Trachea Midline Chest Chest Inspection: Normal Inspection and Symmetric Chest Wall Rise Respiratory Respiratory Exam: Normal Lung Sounds Bilat Respiratory Exam: Bilateral: Clear to Auscultation Cardiovascular Cardiovascular Exam: Regular Rate and Normal Rhythm Abdominal Exam Abdominal Exam: Normal Inspection, Normal Bowel Sounds, Soft and Tenderness Abdominal Tenderness: Mild Extremities Extremities Exam: Normal Inspection and Full ROM Psychiatric Psychiatric Exam: Normal Affect, Normal Mood and Flat Affect Skin Skin Exam: Warm and Dry COURSE Consultation Call Returned: 04:45 Consultation Comments: Dr Cohen accepts admission. ROR Labs Reviewed Laboratory Results Reviewed?: Yes Result Diagrams: 09/23/19 18:14 09/23/19 05:54 Laboratory: 09/22/19 00:54 Blood Blood Culture - Preliminary WBC 30.2 X10^3/uL (3.6-10.0) H* 09/21/19 23:51 RBC 3.03 X10^6/uL (4.7-6.0) L 09/21/19 23:51 Hgb 7.2 g/dL (13.5-18.0) L 09/21/19 23:51 Hct 21.8 % (42.0-54.0) L 09/21/19 23:51 MCV 71.9 fL (80.0-100.0) L 09/21/19 23:51 MCH 23.8 pg (27.0-34.0) L 09/21/19 23:51 MCHC 33.0 g/dL (33.0-35.0) 09/21/19 23:51 RDW 18.4 % (11.6-16.5) H 09/21/19 23:51 Plt Count 635 X10^3/uL (150.0-450.0) H 09/21/19 23:51 Plt Count Comment Increased (ADEQUATE) 09/21/19 23:51 MPV 8.0 fL (7.4-11.0) 09/21/19 23:51 Neut % (Auto) 90.8 % (42.0-75.0) H 09/21/19 23:51 Lymph % (Auto) 3.4 % (21.0-51.0) L 09/21/19 23:51 [place] % (Auto) 5.0 % (0.0-13.0) 09/21/19 23:51 Eos % (Auto) 0.0 % (0.9-2.9) L 09/21/19 23:51 Baso % (Auto) 0.8 % (0.2-1.0) 09/21/19 23:51 Neut # (Auto) 27.4 x10^3/uL (2.2-4.8) H 09/21/19 23:51 Lymph # (Auto) 1.0 X10^3/uL (1.3-2.9) L 09/21/19 23:51 [place] # (Auto) 1.5 x10^3/uL (0.3-0.8) H 09/21/19 23:51 Eos # (Auto) 0.0 x10^3/uL (0.0-0.2) 09/21/19 23:51 Baso # (Auto) 0.2 X10^3/uL (0.0-0.1) H 09/21/19 23:51 Absolute Nucleated RBC 0.0 /100WBC 09/21/19 23:51 Total Counted 100 09/21/19 23:51 Neutrophils % (Manual) 84 % (39-76) H 09/21/19 23:51 Band Neutrophils % 3 % (0-10) 09/21/19 23:51 Lymphocytes % (Manual) 8 % (13-43) L 09/21/19 23:51 Monocytes % (Manual) 5 % (4-9) 09/21/19 23:51 Plt Morphology Comment Normal (NORMAL) 09/21/19 23:51 RBC Morphology Abnormal (NORMAL) 09/21/19 23:51 Hypochromasia 1+ A 09/21/19 23:51 Sodium 126 mmol/L (136-145) L 09/21/19 23:51 Corrected Sodium 129 mmol/L (136-145) L 09/21/19 23:51 Potassium 4.9 mmol/L (3.5-5.1) 09/21/19 23:51 Chloride 92 mmol/L (98-107) L 09/21/19 23:51 Carbon Dioxide 22.8 mmol/L (21-32) 09/21/19 23:51 BUN 40 mg/dL (7-18) H 09/21/19 23:51 Creatinine 2.53 mg/dL (0.70-1.30) H 09/21/19 23:51 Est GFR (MDRD) Af Amer 35 (>60) L 09/21/19 23:51 Est GFR (MDRD) Non-Af 29 (>60) L 09/21/19 23:51 Glucose 215 mg/dL (65-99) H 09/21/19 23:51 POC Glucose (mg/dL) 184 mg/dL (65-99) H 09/21/19 23:15 Lactic Acid 1.6 mmol/L (0.4-2.0) 09/22/19 00:54 Calcium 9.3 mg/dL (8.5-10.1) 09/21/19 23:51 Corrected Calcium 10.8 mg/dL (8.5-10.1) H 09/21/19 23:51 Total Bilirubin 0.40 mg/dL (0.2-1.0) 09/21/19 23:51 AST 22 Units/L (15-37) 09/21/19 23:51 ALT 36 Units/L (12-78) 09/21/19 23:51 Alkaline Phosphatase 132 Units/L (46-116) H 09/21/19 23:51 Total Protein 10.2 g/dL (6.4-8.2) H 09/21/19 23:51 Albumin 2.1 g/dL (3.4-5.0) L 09/21/19 23:51 Globulin 8.1 g/dL (2.5-4.5) H 09/21/19 23:51 Albumin/Globulin Ratio 0.3 Ratio (1.1-2.1) L 09/21/19 23:51 Amylase 66 Units/L (25-115) 09/21/19 23:51 Lipase 243 Units/L (73-393) 09/21/19 23:51 Specimen Type Clean catch urine 09/22/19 02:42 Urine Color Yellow (YELLOW) 09/22/19 02:42 Urine Appearance Clear (CLEAR) 09/22/19 02:42 Urine pH 5.0 (5.0 - 8.0) 09/22/19 02:42 Ur Specific [place] 1.010 (1.000-1.030) 09/22/19 02:42 Urine Protein 2+ (NEGATIVE) 09/22/19 02:42 Urine Glucose (UA) 3+ (NEGATIVE) 09/22/19 02:42 Urine Ketones Negative (NEGATIVE) 09/22/19 02:42 Urine Occult Blood 1+ (NEGATIVE) 09/22/19 02:42 Urine Nitrite Negative (NEGATIVE) 09/22/19 02:42 Urine Bilirubin Negative (NEGATIVE) 09/22/19 02:42 Urine Urobilinogen 1+ (NORMAL) 09/22/19 02:42 Ur Leukocyte Esterase Negative (NEGATIVE) 09/22/19 02:42 Urine RBC 0-2 /HPF (0-3) 09/22/19 02:42 Urine WBC 0-2 /HPF (0-5) 09/22/19 02:42 Ur Squamous Epith Cells Rare /HPF (NEGATIVE) 09/22/19 02:42 Urine Bacteria Negative /HPF (NEGATIVE) 09/22/19 02:42 Ur Culture Indicated? No/not indicated 09/22/19 02:42 Acetone, Semi-Quant Negative (NEGATIVE) 09/21/19 23:51 XRAY XRAY Interpreted by: Radiologist X-ray Results: abd series: Moderate stool in the colon. Constipation is possible. Cardiomegaly is noted. No high-grade obstruction or free air or pneumatosis seen. Opioid Opioid Risk Tool Personal Hx of Substance Abuse: Prescription Drugs Age (Paddy box if 16-45): No History of Preadolescent Sexual Abuse: No Total: 0 Total Score Risk Category: Low Risk Copyright: Harris LR predicting aberrant behaviors Diagnosis Discharge Problem: Acute hyponatremia, Shortness of breath, Neutrophilic leukocytosis, Weakness, Dehydration Anemia Qualifiers: Anemia type: other cause Other causes of anemia: other cause, not classified Qualified Code(s): D64.89 - Other specified anemias Acute renal failure (ARF) Qualifiers: Acute renal failure type: unspecified Qualified Code(s): N17.9 - Acute kidney failure, unspecified Instructions Instructions: Shortness of Breath, Adult, Aszi-ts-Txch Anemia Abdominal Pain, Adult, Rwrr-py-Rulj Type 1 Diabetes Mellitus, Diagnosis, Adult, Nizr-et-Otbz Weakness, Rvpb-lg-Remh Nausea and Vomiting, Adult, Jymt-nx-Chww Hypertension, Rhwu-nr-Ggot Type 1 Diabetes Mellitus, Self Care, Adult, Xnss-xd-Qles Forms: Excuse From Work Precautions for COVID19 Patient Portal Social Distancing
[2019-09-22 00:57] LABS: AMYLASE 66 Units/L (25-115); LIPASE 243 Units/L (73-393)
[2019-09-22] MEDS ORDERED: DEMEROL INJ IVP ONE (01:13)
[2019-09-22] MEDS ORDERED: ZOFRAN INJ 4 MG VIAL IVP ONE (01:13)
[2019-09-22] MEDS ORDERED: DEMEROL INJ ONE (01:21)
[2019-09-22] MEDS ORDERED: ZOFRAN INJ 4 MG VIAL ONE (01:21)
[2019-09-22] MEDS ORDERED: NS 1000 ML 1,000 ML IV SCH (02:00)
--- NOTE | 2019-09-22 02:30 | RAD ---
Abdomen series supine upright chest three viewsIndication: Mid upper back pain and weakness. Hyperglycemia.COMPARISONMar2019FINDINGSThere is cardiomegaly with Port-A-Cath over the SVC. Monitoring leads obscure detail. Gas and stool are seen in the colon. There is no free air or pneumatosis. There is no abnormal calcific density. Cholecystectomy clips are noted.IMPRESSIONModerate stool in the colon. Constipation is possible. Cardiomegaly is noted. No high-grade obstruction or free air or pneumatosis seen.Electronically signed by: GRACE DIANE (Sep 22, 2019 02:28:27)
[2019-09-22 03:09] LABS: BILIRUBIN,URINE NEGATIVE (NEGATIVE); BLOOD/HEMOGLOBIN,URINE 1+ (NEGATIVE); GLUCOSE, URINE 3+ (NEGATIVE); KETONES,URINE NEGATIVE (NEGATIVE); LEUKOCYTE ESTERASE ,URINE NEGATIVE (NEGATIVE); NITRITES,URINE NEGATIVE (NEGATIVE); PROTEIN,URINE 2+ (NEGATIVE); UROBILINOGEN,URINE 1+ (NORMAL)
[2019-09-22 03:16] LABS: APPEARANCE,URINE CLEAR (CLEAR); BACTERIA,URINE NEGATIVE /HPF (NEGATIVE); COLOR,URINE YELLOW (YELLOW); RBC,URINE 0-2 /HPF (0-3); SQUAMOUS EPITHELIAL CELL,UR RARE /HPF (NEGATIVE)
[2019-09-22] MEDS ORDERED: ZOSYN VIAL 2.25 GRAMS 2.25 G in NS 100 ML IV + SPIKE MINIBAG* 100 ML IV STA (04:55)
[2019-09-22] MEDS ORDERED: DEMEROL INJ IVP PRN (04:56)
[2019-09-22 05:26] LABS: BASOPHILS # (AUTO) 0.1 X10^3/uL (0.0-0.1); BASOPHILS % (AUTO) 0.3 % (0.2-1.0); EOSINOPHILS # (AUTO) 0.2 x10^3/uL (0.0-0.2); EOSINOPHILS % (AUTO) 0.7 % (0.9-2.9); HEMATOCRIT 21.2 % (42.0-54.0); LYMPHOCYTES # (AUTO) 1.1 X10^3/uL (1.3-2.9); LYMPHOCYTES % (AUTO) 4.5 % (21.0-51.0); MEAN CORPUSCULAR HEMOGLOBIN 23.9 pg (27.0-34.0); MEAN CORPUSCULAR HGB CONC 33.3 g/dL (33.0-35.0); MEAN CORPUSCULAR VOLUME 71.8 fL (80.0-100.0); MEAN PLATELET VOLUME 7.9 fL (7.4-11.0); MONOCYTES # (AUTO) 1.1 x10^3/uL (0.3-0.8); MONOCYTES % (AUTO) 4.1 % (0.0-13.0); NEUTROPHILS # (AUTO) 23.1 x10^3/uL (2.2-4.8); NEUTROPHILS % (AUTO) 90.4 % (42.0-75.0); PLATELET COUNT 591 X10^3/uL (150.0-450.0); RED BLOOD COUNT 2.95 X10^6/uL (4.7-6.0); RED CELL DISTRIBUTION WIDTH 18.9 % (11.6-16.5); WHITE BLOOD COUNT 25.6 X10^3/uL (3.6-10.0)
[2019-09-22 05:31] LABS: ALBUMIN 1.9 g/dL (3.4-5.0); CALCIUM 8.8 mg/dL (8.5-10.1); CARBON DIOXIDE 24.8 mmol/L (21-32); COR CA(FOR HYPOALB) 10.5 mg/dL (8.5-10.1); CREATININE 1.86 mg/dL (0.70-1.30); TOTAL PROTEIN 9.4 g/dL (6.4-8.2)
[2019-09-22 05:44] LABS: BAND NEUTROPHILS % 2 % (0-10); HYPOCHROMASIA 1+; PLATELET MORPHOLOGY COMMENT NORMAL (NORMAL); TARGET CELLS PRESENT
[2019-09-22] MEDS: NS 1000 ML 1,000 ML IV SCH ×3 (06:19→18:59)
[2019-09-22] MEDS: ZOSYN VIAL 2.25 GRAMS 2.25 G in NS 100 ML IV + SPIKE MINIBAG* 100 ML IV SCH ×5 (06:40→21:33)
[2019-09-22] MEDS ORDERED: TYLENOL 325 MG TAB PO PRN (08:14)
[2019-09-22] MEDS ORDERED: NS 500 ML IV 500 ML IV ONE (08:14)
[2019-09-22] MEDS ORDERED: BENADRYL INJ 50 MG VIAL IVP PRN (08:14)
[2019-09-22] MEDS ORDERED: PHENERGAN INJ 25 MG IM PRN (12:28)
[2019-09-22] MEDS: HumuLIN R SUBCUT PRN ×3 (13:02→20:30)
--- NOTE | 2019-09-22 15:40 | VAS ---
HISTORYRT LEG PAINSTUDYLOWER EXT VENOUS, UNILATERALCOMPARISONNoneFINDINGSUltrasound evaluation of the deep venous system of the right leg was performed from the level of the inguinal ligament down to the calf. Deep system is widely patent with good flow and compressibility noted along its course. No evidence of intraluminal thrombus is seen o n the right. Incidental note is made of multiple right inguinal lymph nodes ranging from 1 to 2.3 tom timeters in size.IMPRESSION1. No deep vein thrombosis is identified in the right lower extremity.2. M ultiple right inguinal lymph nodes are an incidental findingElectronically signed by: NATAN BRONSON (Sep 22, 2019 15:39:56)
[2019-09-22] MEDS: DEMEROL INJ IVP PRN ×2 (16:17→20:16)
[2019-09-22 21:29] LABS: HEMATOCRIT 30.1 % (42.0-54.0)
[2019-09-22 21:31] LABS: HEMOGLOBIN 10.4 g/dL (13.5-18.0)
--- NOTE | 2019-09-22 22:29 | DR.H&P ---
H&P - History & Physical for Day of: H&P Date: 09/22/19 - Chief Complaint Chief Complaint: WEAKNESS, SOB, ABDOMINAL PAIN, N/V/D - History of Present Illness History of Present Illness: IS A 48 YEAR OLD PATIENT OF OURS WHO PRESENTED TO THE ER FOR COMPLAINTS OF GENERALIZED WEAKNESS, SOB, EPIGASTRIC PAIN, AND NAUSEA/VOMITING FOR THE PAST 2-3 DAYS. HE DENIES FEVER OR COUGH. HE DOES REPORT HIGH BLOOD GLUCOSE LEVELS, BUT REPORTS COMPLIANCE WITH INSULINS. HE HAS A HISTORY OF GASTROPARESIS. ON ARRIVAL TO THE ER, VITALS WERE 96.8-96-20-100%-123/69. LABS WERE OBTAINED. ABNORMAL LAB VALUES INCLUDE THE FOLLOWING: WBC 30.2, RBC 3.03, HGB 7.2, HCT 21.8, PLT COUNT 635, SODIUM 126, CHLORIDE 92, BUN 40, CREATININE 2.53, GLUCOSE 215, ALK PHOS 132, ALBUMIN 2.1, GLOBULIN 8.1. URINALYSIS IS UNREMARKABLE. ACETONES NEGATIVE. BLOOD CULTURES WERE SET UP. AN ABDOMEN XRAY WAS OBTAINED AND REVEALED: Moderate stool in the colon. Constipation is possible. Cardiomegaly is noted. No high-grade obstruction or free air or pneumatosis seen. HE WAS GIVEN A NORMAL SALINE BOLUS, DEMEROL 25MG IV X 1, ZOFRAN 4MG IV X 1, ZOSYN 2.25G IV X 1. HE WAS ADMITTED FOR FURTHER EVALUATION AND TREATMENT OF LEUKOCYTOSIS, ANEMIA, HYPONATREMIA, WEAKNESS, AND GASTROPARESIS. HE WAS STARTED ON NS AT 100 ML/HR, ZOSYN 2.25G IV Q8H, HUMULIN R SLIDIDNG SCALE, DEMEROL 25MG IV Q4H PRN, PHENERGAN 25MG IM Q4H PRN NAUSEA. WE WILL REVIEW HIS HOME MEDICATIONS. TODAY, WE WILL TRANSFUSE 2 UNITS OF PRBC. OTHERWISE, WE WILL FOLLOW UP WITH AM LABS AND CONTINUE TO MONITOR. - Past Medical History Past Medical History: Coronary Artery Disease, Hypertension, Dyslipidemia, Diabetes, Renal Disease, Anemia, GERD Additional Medical History: Diabetic Neuropathy, Diabetic Gastroparesis, Hiatal Hernia, Gastric Ulcer, Gall Bladder Disease, Back Pain - Past Surgical History Surgical History: Cholecystectomy, Ortho Surgery, Other Additional Surgical History: Right foot I&D - Family History Family Medical History: Diabetes Mellitus - Social History Does patient currently use any type of tobacco product: No Have you used tobacco products in the last 12 months: No Type of Tobacco Use: None Does any household member use tobacco: No Alcohol Use: None Drug Use: None - Medications Home Medications: codeine Allergy (Verified 09/21/19 23:30) morphine Allergy (Verified 09/21/19 23:30) CONTINUE taking the following medications amlodipine 5 mg PO DAILY 09/22/19 [History] clonidine [Kfisfpoc-MGY-5] 1 patch TRANSDERMAL Q72H 09/22/19 [History] dexamethasone 4 mg PO BID 09/22/19 [History] diltiazem HCl 240 mg PO DAILY 09/22/19 [History] famotidine 40 mg PO BID 09/22/19 [History] gabapentin 300 mg PO TID 09/22/19 [History] glipizide 10 mg PO DAILY 09/22/19 [History] hydrocodone-acetaminophen 1 tab PO Q6H PRN 09/22/19 [History] insulin detemir U-100 [Levemir U-100 Insulin] 50 unit SUBCUT DAILY 09/22/19 [History] insulin lispro [Humalog U-100 Insulin] 20 unit SUBCUT AC 09/22/19 [History] ipratropium-albuterol 3 ml INHALATION TID PRN 09/22/19 [History] losartan 50 mg PO HS 09/22/19 [History] mirtazapine 15 mg PO HS 09/22/19 [History] ondansetron 8 mg PO BID 09/22/19 [History] pantoprazole 40 mg PO BID 09/22/19 [History] potassium chloride 20 meq PO DAILY 09/22/19 [History] promethazine 25 mg PO Q6H PRN 09/22/19 [History] sildenafil 50 mg PO DIRECTED PRN 09/22/19 [History] sucralfate 1 g PO ACHS 09/22/19 [History] temazepam 30 mg PO HS PRN 09/22/19 [History] - Review of Systems Constitutional: See HPI, Weakness Eyes: No Symptoms Reported ENT: No Symptoms Reported Respiratory: See HPI, Shortness of Breath. denies: Cough Cardiovascular: No Symptoms Reported Gastrointestinal: Nausea, Vomiting, Abdominal Pain Genitourinary: No Symptoms Reported Musculoskeletal: No Symptoms Reported Skin: No Symptoms Reported Neurological: Weakness - Physical Exam Vital Signs: Temperature 97.9 F Pulse Rate [Right Brachial] 106 Pulse Rate [Left Brachial] 97 Pulse Rate 82 Respiratory Rate 20 Blood Pressure [Left Arm] 123/67 Blood Pressure [Right Arm] 126/68 Blood Pressure 122/70 O2 Sat by Pulse Oximetry 98 Oriented: Normal Eyes: Normal Ear: Normal Nose: Normal Throat: Normal Respiratory: Diminished Throughout Cardiovascular: Normal : Normal Auscultation: Bowel Sounds: Normal Palpation: Normal Tenderness: Epigastric, Moderate Skin: Normal Musculoskeletal: Normal Psychiatric: Normal Mood Description: Calm Affect: Normal Speech Pattern: Clear - Assessment/Plan (1) Leukocytosis Status: Acute Plan: ADMIT, NS AT 100 ML/HR, ZOSYN 2.25G IV Q8H, HUMULIN R SLIDIDNG SCALE, DEMEROL 25MG IV Q4H PRN, PHENERGAN 25MG IM Q4H PRN NAUSEA (2) Anemia Qualifiers: Anemia type: other cause Other causes of anemia: other cause, not classified Qualified Code(s): D64.89 - Other specified anemias Status: Acute Plan: TRANSFUSE 2 UNITS PRBC, CONTINUE TO MONITOR (3) Hyponatremia Status: Acute (4) Gastroparesis Status: Acute (5) Weakness Status: Acute - Allergies Allergies/Adverse Reactions: Allergies Allergy/AdvReac Type Severity Reaction Status Date / Time codeine Allergy Verified 09/21/19 23:30 morphine Allergy Verified 09/21/19 23:30
[2019-09-22] MEDS ORDERED: DUONEB 0.5 MG/3 MG (3 mL) NEB PRN (22:41)
[2019-09-22] MEDS ORDERED: NORCO 10/325 TAB PO PRN (22:41)
[2019-09-23] MEDS: NEURONTIN CAP 300 MG PO SCH ×3 (05:37→21:03)
[2019-09-23] MEDS: CARAFATE PO SCH ×4 (05:38→20:57)
[2019-09-23] MEDS: ZOSYN VIAL 2.25 GRAMS 2.25 G in NS 100 ML IV + SPIKE MINIBAG* 100 ML IV SCH (05:39)
[2019-09-23] MEDS: HumuLIN R SUBCUT PRN ×4 (05:39→20:57)
[2019-09-23] MEDS: DEMEROL INJ IVP PRN ×2 (05:42→21:15)
[2019-09-23] MEDS: ZOFRAN INJ 4 MG VIAL IVP PRN (05:43)
[2019-09-23] MEDS: NS 1000 ML 1,000 ML IV SCH ×2 (06:25→20:44)
[2019-09-23 06:33] LABS: BASOPHILS # (AUTO) 0.2 X10^3/uL (0.0-0.1); BASOPHILS % (AUTO) 0.7 % (0.2-1.0); EOSINOPHILS % (AUTO) 0.1 % (0.9-2.9); HEMATOCRIT 29.9 % (42.0-54.0); HEMOGLOBIN 10.3 g/dL (13.5-18.0); LYMPHOCYTES # (AUTO) 1.4 X10^3/uL (1.3-2.9); MEAN CORPUSCULAR HEMOGLOBIN 25.3 pg (27.0-34.0); MEAN CORPUSCULAR HGB CONC 34.3 g/dL (33.0-35.0); MEAN CORPUSCULAR VOLUME 73.9 fL (80.0-100.0); MEAN PLATELET VOLUME 7.4 fL (7.4-11.0); MONOCYTES # (AUTO) 0.7 x10^3/uL (0.3-0.8); MONOCYTES % (AUTO) 3.1 % (0.0-13.0); NEUTROPHILS # (AUTO) 20.6 x10^3/uL (2.2-4.8); NEUTROPHILS % (AUTO) 90.1 % (42.0-75.0); PLATELET COUNT 577 X10^3/uL (150.0-450.0); RED BLOOD COUNT 4.05 X10^6/uL (4.7-6.0); RED CELL DISTRIBUTION WIDTH 18.8 % (11.6-16.5); WHITE BLOOD COUNT 22.9 X10^3/uL (3.6-10.0)
--- NOTE | 2019-09-23 06:44 | RAD ---
HISTORYLeukocytosisSTUDYCHEST, 1 [id number]/2020FINDINGSThere is a port present on the left. Heart is within normal limits in size. The jennifer are normal. The lung tejada are clear. No pleural effusions are identified. The bony thorax is unremarkable.IMPRESSIONNo significant abnormality identifiedElectronically signed by: TONY FLORES (Sep 23, 2019 06:43:12)
[2019-09-23 06:49] LABS: ALANINE AMINOTRANSFERASE 23 Units/L (12-78); ALBUMIN 1.9 g/dL (3.4-5.0); ALKALINE PHOSPHATASE 135 Units/L (46-116); ASPARTATE AMINO TRANSFERASE 20 Units/L (15-37); BLOOD UREA NITROGEN 19 mg/dL (7-18); CHLORIDE 94 mmol/L (98-107); COR CA(FOR HYPOALB) 10.7 mg/dL (8.5-10.1); COR NA(FOR HYPERGLY) 131 mmol/L (136-145); CREATININE 1.38 mg/dL (0.70-1.30); SODIUM 129 mmol/L (136-145); TOTAL PROTEIN 9.5 g/dL (6.4-8.2); eGFR NON BLACK RACES 59 (>60)
[2019-09-23 07:24] LABS: BAND NEUTROPHILS % 4 % (0-10); HYPOCHROMASIA SLIGHT; PLATELET MORPHOLOGY COMMENT NORMAL (NORMAL)
[2019-09-23] MEDS: COLACE CAP 100 MG PO SCH ×2 (08:54→20:57)
[2019-09-23] MEDS: PROTONIX TAB 40 MG PO SCH ×2 (08:54→20:57)
[2019-09-23] MEDS: NORVASC TAB 5 MG PO SCH (08:54)
[2019-09-23] MEDS: PEPCID TAB 20 MG PO SCH (08:54)
[2019-09-23] MEDS: CARDIZEM CD 240 MG 24-HR PO SCH (08:54)
[2019-09-23] MEDS: DECADRON TAB PO SCH ×2 (08:54→20:57)
[2019-09-23] MEDS: CATAPRES-TTS-3 TD SCH (08:54)
[2019-09-23] MEDS: MIRALAX POWDER (1 DOSE 17 G) PO SCH (08:55)
[2019-09-23] MEDS: MILK OF MAGNESIA PO SCH ×4 (08:55→20:58)
[2019-09-23] MEDS ORDERED: PEPCID TAB 20 MG PO SCH (09:00)
[2019-09-23] MEDS ORDERED: DILTIAZEM HCL 240 MG PO SCH (09:00)
[2019-09-23] MEDS ORDERED: ZOSYN VIAL 2.25 GRAMS 2.25 G in NS 100 ML IV 100 ML IV SCH (11:00)
[2019-09-23] MEDS ORDERED: CIPRO IV 400 MG PREMIX* 400 MG/200 ML IV.SOLN. IV SCH (11:00)
[2019-09-23] MEDS: ALBUMIN HUMAN 25%- 100 ML 100 ML IV SCH (14:22)
[2019-09-23] MEDS: ZOSYN VIAL 2.25 GRAMS 2.25 G in NS 100 ML IV 100 ML IV SCH ×2 (14:24→22:38)
[2019-09-23] MEDS ORDERED: SALINE 3% 15 ML NEB TX NEB ONE (14:51)
[2019-09-23] MEDS ORDERED: PHARMACY CONSULT - VANCOMYCIN XX SCH (15:00)
--- NOTE | 2019-09-23 18:00 | MRI ---
Exam:EXT LOWER NON-JOINT W/O CONIndication: INFECTED DIABETIC ULCER RIGHT FOOTComparison: [None available]Technique:Multiplanar, multisequence imaging of the right foot without IV contrast administration. =Findings:[There is diffuse skin thickening and subcutaneous stranding within the plantar aspect of the forefoot; however, there is a small linear tract of increased signal within the plantar aspect of the forefoot between the 2nd and 3rd metatarsal head seen on sagittal STIR image 13. There is no adjacent cortical destruction or bone marrow edema identified within the 2nd or 3rd metatarsal heads. There is no convincing localizing fluid collection in this location to suggest abscess formation.Mild bone marrow edema within the bases of the 3rd and 4th metatarsal bones along with ill-defined bone marrow edema within the cuboid and lateral cuneiforms. Mild bone marrow edema within the medial most aspect of the navicular and anterior process of the talus. Moderate bone marrow edema within the posterior tibial plafond, medial and lateral malleolus. Tibiotalar joint effusion. Joint space loss is noted within the posterior tibiotalar joint.No significant degenerative change within the middle or posterior subtalar joint. No tarsal coalition. Sinus tarsi demonstrates no mass, cyst or abnormal signal within the interosseous or cervical ligaments. Medial and lateral bands of the plantar fascia without evidence of acute tear. The Achilles tendon is normal in signal.Moderate tenosynovitis of the posterior tibialis, flexor hallucis longus and flexor digitorum longus tendons. Tenosynovitis of the peroneus longus and brevis tendons. Diffuse subcutaneous soft tissue swelling is noted within the ankle.Its no acute tear identified within the anterior or posterior talofibular or tibiofibular ligaments. Calcaneofibular ligament is intact. The deltoid ligamentous complex is intact. Lisfranc ligament is normal.Impression:1. Ill-defined bone marrow edema within the posterior tibial plafond, medial, lateral malleoli and anterior process of the talus. Ill-defined bone marrow edema within the cuboid, lateral cuneiform along with the 3rd and 4th metatarsal heads is indeterminate, reactive bone marrow changes/stress reaction secondary to altered biomechanics in the setting of a neuropathy is a consideration; however, underlying osteomyelitis should be considered and further evaluation with patient history, ESR and CRP levels is recommended.2. Moderate tenosynovitis of the medial and lateral ankle tendons needs clinical correlation as this can be seen in setting of an infectious or inflammatory tenosynovitis.3. Small subcutaneous ulceration within the plantar aspect of the forefoot between the 2nd and 3rd toe metatarsal heads, there is no adjacent localizing subcutaneous fluid collection or MR findings to suggest osteomyelitis.Electronically signed by: JOAQUIN PUENTE (Sep 23, 2019 17:58:35)
[2019-09-23 18:32] LABS: HEMATOCRIT 31.8 % (42.0-54.0); HEMOGLOBIN 10.7 g/dL (13.5-18.0)
[2019-09-23] MEDS: RESTORIL CAP 30 MG PO PRN (20:56)
[2019-09-23] MEDS: REMERON PO SCH (20:56)
[2019-09-23] MEDS: COZAAR PO SCH (20:57)
[2019-09-23] MEDS: VANCOMYCIN HCL 1 G in NS 250 ML IV 250 ML IV SCH (20:59)
[2019-09-23] MEDS: MAGNESIUM SULFATE 1 GRAM/100 mL PREMIX 1 GM/100 ML BAG IV PRN ×2 (21:10→22:39)
--- NOTE | 2019-09-23 23:11 | PCM.PROG ---
Progress Note - Progress Note for Day of Date of Exam: 09/23/19 - Subjective Subjective: IS BEING TREATED FOR LEUKOCYTOSIS, ANEMIA, HYPONATREMIA, GASTROPARESIS, AND GENERALIZED WEAKNESS. HE RECEIVED TWO UNITS OF PRBC YESTERDAY. TODAY, HE IS ALERT AND ORIENTED, LYING IN BED ON MORNING ROUND. HE CONTINUES WITH WEAKNESS, ABDOMINAL PAIN, AND NAUSEA. ON EXAMINATION, HEART IS REGULAR IN RATE AND RHYTHM. BILATERAL LUNGS ARE NOTED WITH DIMINISHED LUNG SOUNDS THROUGHOUT. ABDOMEN IS ROUND, SOFT, AND NOTED WITH EPIGASTRIC TENDERNESS TO PALPATION. NORMAL BOWEL SOUNDS ARE NOTED IN ALL QUADRANTS. RIGHT HEEL OF FOOT IS NOTED WITH A 3X3X1 CM WOUND. PATIENT HAS BEEN RECEIVING WOUND CARE. THERE IS A MODERATE AMOUNT OF GREEN DRAINAGE TO WOUND WELL A FOUL ODOR. THERE IS 1+ PITTING EDEMA TO THE LOWER EXTREMITY. HIS VITALS THIS MORNING ARE: 98.8-98-18-98%-124/72. LABS WERE OBTAINED. ABNORMAL LAB VALUES INCLUDE THE FOLLOWING: WBC 22.9, RBC 4.05, HGB 10.3, HCT 29.9, PLT COUNT 577, ESR 103, ALK PHOS 241.40, MAG 1.6, SODIUM 129, CHLORIDE 94, BUN 19, CREATININE 1.38, GLUCOSE 203, ALK PHOS 135, TOTAL PROTEIN 1.9, ALBUMIN 1.9. LAB REPORTED THAT BLOOD CULTURES ARE GROWING A GRAM POSITIVE COCCI. A WOUND CULTURE WAS OBTAINED. HE IS CURRENTLY RECEIVING NS AT 100 ML/HR, ZOSYN 2.25G IV Q8H, HUMULIN R SLIDIDNG SCALE, DEMEROL 25MG IV Q4H PRN, PHENERGAN 25MG IM Q4H PRN NAUSEA. TODAY, WE WILL CONSULT , GENERAL SURGEON. WE WILL OBTAIN A LOWER EXTREMITY MRI WITHOUT CONTRAST. WE WILL DISCONTINUE THE CIPRO AND START VANCOMYCIN, PHARMACY TO DOSE. OTHERWISE, WE WILL FOLLOW UP WITH AM LABS AND CONTINUE TO MONITOR. - Past Medical Family Social History Past Med/Fam/Surg Hx: No changes since H&P Allergies: Allergies codeine Allergy (Verified 09/21/19 23:30) morphine Allergy (Verified 09/21/19 23:30) - Review of Systems ROS: No change since H&P - Vital Signs and I&O's Vital Signs: Temperature 97.4 F Pulse Rate [Right Brachial] 99 Pulse Rate [Left Brachial] 97 Pulse Rate 99 Respiratory Rate 18 Blood Pressure [Left Arm] 117/66 Blood Pressure [Right Arm] 126/68 Blood Pressure 122/70 O2 Sat by Pulse Oximetry 99 Intake and Output: Intake & Output 09/21/19 09/22/19 09/23/19 09/24/19 11:59 11:59 11:59 11:59 Intake Total 0 / 0 3379 / 3379 1902 / 1902 Output Total 0 / 0 2225 / 2225 2800 / 2800 Balance 0 / 0 1154 / 1154 -898 / -898 - Physical Exam Oriented: Normal Eyes: Normal Ear: Normal Nose: Normal Throat: Normal Cardiovascular: Normal : Normal Auscultation: Bowel Sounds: Normal Palpation: Normal Tenderness: Epigastric, Moderate Skin: Wound (RIGHT HEEL ULCER ) Musculoskeletal: Normal Psychiatric: Normal Mood Description: Calm Affect: Normal Speech Pattern: Clear, Appropriate - Laboratory and Diagnostics Result Diagrams: 09/23/19 18:14 09/23/19 05:54 Labs: 09/23/19 11:55 Foot - Right Gram Stain - Final 09/22/19 00:54 Blood Blood Culture - Preliminary Laboratory WBC 22.9 X10^3/uL (3.6-10.0) H 09/23/19 05:54 RBC 4.05 X10^6/uL (4.7-6.0) L 09/23/19 05:54 Hgb 10.7 g/dL (13.5-18.0) L 09/23/19 18:14 Hct 31.8 % (42.0-54.0) L 09/23/19 18:14 MCV 73.9 fL (80.0-100.0) L 09/23/19 05:54 MCH 25.3 pg (27.0-34.0) L 09/23/19 05:54 MCHC 34.3 g/dL (33.0-35.0) 09/23/19 05:54 RDW 18.8 % (11.6-16.5) H 09/23/19 05:54 Plt Count 577 X10^3/uL (150.0-450.0) H 09/23/19 05:54 Plt Count Comment Increased (ADEQUATE) 09/23/19 05:54 MPV 7.4 fL (7.4-11.0) 09/23/19 05:54 Neut % (Auto) 90.1 % (42.0-75.0) H 09/23/19 05:54 Lymph % (Auto) 6.0 % (21.0-51.0) L 09/23/19 05:54 [place] % (Auto) 3.1 % (0.0-13.0) 09/23/19 05:54 Eos % (Auto) 0.1 % (0.9-2.9) L 09/23/19 05:54 Baso % (Auto) 0.7 % (0.2-1.0) 09/23/19 05:54 Neut # (Auto) 20.6 x10^3/uL (2.2-4.8) H 09/23/19 05:54 Lymph # (Auto) 1.4 X10^3/uL (1.3-2.9) 09/23/19 05:54 [place] # (Auto) 0.7 x10^3/uL (0.3-0.8) 09/23/19 05:54 Eos # (Auto) 0.0 x10^3/uL (0.0-0.2) 09/23/19 05:54 Baso # (Auto) 0.2 X10^3/uL (0.0-0.1) H 09/23/19 05:54 Absolute Nucleated RBC 0.0 /100WBC 09/23/19 05:54 Total Counted 100 09/23/19 05:54 Neutrophils % (Manual) 88 % (39-76) H 09/23/19 05:54 Band Neutrophils % 4 % (0-10) 09/23/19 05:54 Lymphocytes % (Manual) 6 % (13-43) L 09/23/19 05:54 Monocytes % (Manual) 2 % (4-9) L 09/23/19 05:54 Plt Morphology Comment Normal (NORMAL) 09/23/19 05:54 RBC Morphology Abnormal (NORMAL) 09/23/19 05:54 Hypochromasia Slight A 09/23/19 05:54 Target Cells Present 09/22/19 05:08 ESR 103 MM/HOUR (0-15) H 09/23/19 17:38 Sodium 129 mmol/L (136-145) L 09/23/19 05:54 Corrected Sodium 131 mmol/L (136-145) L 09/23/19 05:54 Potassium 4.4 mmol/L (3.5-5.1) 09/23/19 05:54 Chloride 94 mmol/L (98-107) L 09/23/19 05:54 Carbon Dioxide 25.0 mmol/L (21-32) 09/23/19 05:54 BUN 19 mg/dL (7-18) H 09/23/19 05:54 Creatinine 1.38 mg/dL (0.70-1.30) H 09/23/19 05:54 Est GFR (MDRD) Af Amer > 60 (>60) 09/23/19 05:54 Est GFR (MDRD) Non-Af 59 (>60) 09/23/19 05:54 Glucose 203 mg/dL (65-99) H 09/23/19 05:54 POC Glucose (mg/dL) 399 mg/dL (65-99) H 09/23/19 20:43 Lactic Acid 1.4 mmol/L (0.4-2.0) 09/23/19 18:14 Calcium 9.0 mg/dL (8.5-10.1) 09/23/19 05:54 Corrected Calcium 10.7 mg/dL (8.5-10.1) H 09/23/19 05:54 Magnesium 1.6 mg/dL (1.7-2.9) L 09/23/19 05:54 Total Bilirubin 0.60 mg/dL (0.2-1.0) 09/23/19 05:54 AST 20 Units/L (15-37) 09/23/19 05:54 ALT 23 Units/L (12-78) 09/23/19 05:54 Alkaline Phosphatase 135 Units/L (46-116) H 09/23/19 05:54 C-Reactive Protein 241.40 mg/L (0-3.0) H 09/23/19 18:14 Total Protein 9.5 g/dL (6.4-8.2) H 09/23/19 05:54 Albumin 1.9 g/dL (3.4-5.0) L 09/23/19 05:54 Globulin 7.6 g/dL (2.5-4.5) H 09/23/19 05:54 Albumin/Globulin Ratio 0.3 Ratio (1.1-2.1) L 09/23/19 05:54 Amylase 66 Units/L (25-115) 09/21/19 23:51 Lipase 243 Units/L (73-393) 09/21/19 23:51 Specimen Type Clean catch urine 09/22/19 02:42 Urine Color Yellow (YELLOW) 09/22/19 02:42 Urine Appearance Clear (CLEAR) 09/22/19 02:42 Urine pH 5.0 (5.0 - 8.0) 09/22/19 02:42 Ur Specific [place] 1.010 (1.000-1.030) 09/22/19 02:42 Urine Protein 2+ (NEGATIVE) 09/22/19 02:42 Urine Glucose (UA) 3+ (NEGATIVE) 09/22/19 02:42 Urine Ketones Negative (NEGATIVE) 09/22/19 02:42 Urine Occult Blood 1+ (NEGATIVE) 09/22/19 02:42 Urine Nitrite Negative (NEGATIVE) 09/22/19 02:42 Urine Bilirubin Negative (NEGATIVE) 09/22/19 02:42 Urine Urobilinogen 1+ (NORMAL) 09/22/19 02:42 Ur Leukocyte Esterase Negative (NEGATIVE) 09/22/19 02:42 Urine RBC 0-2 /HPF (0-3) 09/22/19 02:42 Urine WBC 0-2 /HPF (0-5) 09/22/19 02:42 Ur Squamous Epith Cells Rare /HPF (NEGATIVE) 09/22/19 02:42 Urine Bacteria Negative /HPF (NEGATIVE) 09/22/19 02:42 Ur Culture Indicated? No/not indicated 09/22/19 02:42 Acetone, Semi-Quant Negative (NEGATIVE) 09/21/19 23:51 Blood Type O POSITIVE 09/22/19 05:08 Antibody Screen Negative 09/22/19 05:08 Crossmatch See Detail 09/22/19 05:08 - Plan (1) Leukocytosis Status: Acute Plan: NS AT 100 ML/HR, ZOSYN 2.25G IV Q8H, VANCOMYCIN, HUMULIN R SLIDIDNG SCALE, DEMEROL 25MG IV Q4H PRN, PHENERGAN 25MG IM Q4H PRN NAUSEA (2) Infected decubitus ulcer Status: Acute Qualifiers: Pressure injury stage: unspecified pressure injury stage Qualified Code(s): L89.90 - Pressure ulcer of unspecified site, unspecified stage; L08.9 - Local infection of the skin and subcutaneous tissue, unspecified Plan: ZOSYN IV, VANCOMYCIN IV, OBTAIN LOWER EXTREMITY MRI, WOUND CARE, CONTINUE TO MONITOR (3) Anemia Status: Acute Qualifiers: Anemia type: other cause Other causes of anemia: other cause, not classified Qualified Code(s): D64.89 - Other specified anemias Plan: CONTINUE TO MONITOR H&H (4) Hyponatremia Status: Acute (5) Gastroparesis Status: Acute (6) Weakness Status: Acute
[2019-09-24] MEDS: DEMEROL INJ IVP PRN ×3 (02:14→20:29)
[2019-09-24] MEDS ORDERED: NS 100 ML IV + SPIKE MINIBAG* 100 ML IV ONE (04:27)
[2019-09-24] MEDS: ZOSYN VIAL 2.25 GRAMS 2.25 G in NS 100 ML IV + SPIKE MINIBAG* 100 ML IV SCH (05:25)
[2019-09-24] MEDS: NEURONTIN CAP 300 MG PO SCH ×3 (05:26→21:39)
[2019-09-24] MEDS: ZOSYN VIAL 2.25 GRAMS 2.25 G in NS 100 ML IV 100 ML IV SCH ×2 (05:27→14:38)
[2019-09-24] MEDS: CARAFATE PO SCH ×4 (05:34→20:29)
[2019-09-24] MEDS: HumuLIN R SUBCUT PRN ×4 (05:34→20:26)
[2019-09-24 06:11] LABS: BASOPHILS % (AUTO) 0.1 % (0.2-1.0); HEMATOCRIT 30.1 % (42.0-54.0); LYMPHOCYTES # (AUTO) 0.9 X10^3/uL (1.3-2.9); LYMPHOCYTES % (AUTO) 3.7 % (21.0-51.0); MEAN CORPUSCULAR HGB CONC 33.1 g/dL (33.0-35.0); MEAN CORPUSCULAR VOLUME 75.4 fL (80.0-100.0); MEAN PLATELET VOLUME 7.3 fL (7.4-11.0); MONOCYTES # (AUTO) 0.6 x10^3/uL (0.3-0.8); MONOCYTES % (AUTO) 2.4 % (0.0-13.0); NEUTROPHILS # (AUTO) 22.9 x10^3/uL (2.2-4.8); NEUTROPHILS % (AUTO) 93.8 % (42.0-75.0); PLATELET COUNT 628 X10^3/uL (150.0-450.0); RED BLOOD COUNT 3.99 X10^6/uL (4.7-6.0); RED CELL DISTRIBUTION WIDTH 19.1 % (11.6-16.5); WHITE BLOOD COUNT 24.4 X10^3/uL (3.6-10.0)
[2019-09-24 06:21] LABS: ALANINE AMINOTRANSFERASE 21 Units/L (12-78); ALBUMIN 2.3 g/dL (3.4-5.0); ALKALINE PHOSPHATASE 120 Units/L (46-116); ASPARTATE AMINO TRANSFERASE 13 Units/L (15-37); BLOOD UREA NITROGEN 21 mg/dL (7-18); CARBON DIOXIDE 27.5 mmol/L (21-32); CHLORIDE 93 mmol/L (98-107); COR CA(FOR HYPOALB) 10.4 mg/dL (8.5-10.1); COR NA(FOR HYPERGLY) 135 mmol/L (136-145); CREATININE 1.52 mg/dL (0.70-1.30); MAGNESIUM 2.8 mg/dL (1.7-2.9); SODIUM 129 mmol/L (136-145); TOTAL PROTEIN 9.3 g/dL (6.4-8.2); eGFR NON BLACK RACES 53 (>60)
[2019-09-24 06:46] LABS: ERYTHROCYTE SEDIMENTATION RATE 108 MM/HOUR (0-15)
[2019-09-24 07:02] LABS: PLATELET MORPHOLOGY COMMENT NORMAL (NORMAL)
[2019-09-24] MEDS: ALBUMIN HUMAN 25%- 100 ML 100 ML IV SCH (09:09)
[2019-09-24] MEDS: VANCOMYCIN HCL 1 G in NS 250 ML IV 250 ML IV SCH ×2 (09:11→20:31)
[2019-09-24] MEDS: COLACE CAP 100 MG PO SCH ×2 (09:12→20:30)
[2019-09-24] MEDS: PEPCID TAB 20 MG PO SCH (09:12)
[2019-09-24] MEDS: CARDIZEM CD 240 MG 24-HR PO SCH (09:12)
[2019-09-24] MEDS: MILK OF MAGNESIA PO SCH ×5 (09:12→20:27)
[2019-09-24] MEDS: MIRALAX POWDER (1 DOSE 17 G) PO SCH (09:13)
[2019-09-24] MEDS: DECADRON TAB PO SCH ×2 (09:13→20:29)
[2019-09-24] MEDS: NORVASC TAB 5 MG PO SCH (09:13)
[2019-09-24] MEDS: PROTONIX TAB 40 MG PO SCH ×2 (09:13→20:30)
[2019-09-24] MEDS: LEVEMIR SC SCH (10:49)
[2019-09-24] MEDS: NS 1000 ML 1,000 ML IV SCH ×2 (10:57→21:39)
--- NOTE | 2019-09-24 13:23 | DR.PROGNOT ---
Hospital Progress Notes - Progress Note for Day of: Progress Note Date: 09/24/19 - Chief Complaint Chief Complaint: still c/o pain Rt leg with edema and erythema extending to the calf . elevated ESR 108 and CRP 208.9. WBC 24.4.. A1C 9. MRI is suspicious for osteomyelitis Rt foot - Past Medical Family Social History Past Med/Fam/Surg Hx: No changes since H&P Allergies: Allergies codeine Allergy (Verified 09/21/19 23:30) morphine Allergy (Verified 09/21/19 23:30) - Review Of Systems ROS: No change since H&P - Vital Signs Vital Signs: Temperature 98.9 F Pulse Rate [Right Brachial] 102 Pulse Rate [Left Brachial] 97 Pulse Rate 99 Respiratory Rate 20 Blood Pressure [Left Arm] 161/93 Blood Pressure [Right Arm] 106/76 Blood Pressure 122/70 O2 Sat by Pulse Oximetry 96 - Physical Exam Oriented: Normal Eyes: Normal Ear: Normal Nose: Normal Throat: Normal Cardiovascular: Normal : Normal GI:Auscultation: Normal GI:Palpation: Normal GI: Tenderness: Epigastric, Moderate Skin: Wound (RIGHT plantar ulcer on the forefoot 2x2cm with granulating base , no tunneling or abscess formation .edema and erythema around the ankle and calf .) Musculoskeletal: Normal Psychiatric: Normal Mood Description: Calm Affect: Normal Speech Pattern: Clear, Appropriate - Laboratory and Diagnostics Result Diagrams: 09/24/19 05:47 09/24/19 05:47 Labs: 09/23/19 11:55 Foot - Right Gram Stain - Final 09/23/19 11:55 Foot - Right Wound Culture - Preliminary 09/22/19 00:54 Blood Blood Culture - Final Strep Pyogenes (Grp A) 09/24/19 04:00 Stool - Final Laboratory WBC 24.4 X10^3/uL (3.6-10.0) H 09/24/19 05:47 RBC 3.99 X10^6/uL (4.7-6.0) L 09/24/19 05:47 Hgb 10.0 g/dL (13.5-18.0) L 09/24/19 05:47 Hct 30.1 % (42.0-54.0) L 09/24/19 05:47 MCV 75.4 fL (80.0-100.0) L 09/24/19 05:47 MCH 25.0 pg (27.0-34.0) L 09/24/19 05:47 MCHC 33.1 g/dL (33.0-35.0) 09/24/19 05:47 RDW 19.1 % (11.6-16.5) H 09/24/19 05:47 Plt Count 628 X10^3/uL (150.0-450.0) H 09/24/19 05:47 Plt Count Comment Increased (ADEQUATE) 09/24/19 05:47 MPV 7.3 fL (7.4-11.0) L 09/24/19 05:47 Neut % (Auto) 93.8 % (42.0-75.0) H 09/24/19 05:47 Lymph % (Auto) 3.7 % (21.0-51.0) L 09/24/19 05:47 [place] % (Auto) 2.4 % (0.0-13.0) 09/24/19 05:47 Eos % (Auto) 0.0 % (0.9-2.9) L 09/24/19 05:47 Baso % (Auto) 0.1 % (0.2-1.0) L 09/24/19 05:47 Neut # (Auto) 22.9 x10^3/uL (2.2-4.8) H 09/24/19 05:47 Lymph # (Auto) 0.9 X10^3/uL (1.3-2.9) L 09/24/19 05:47 [place] # (Auto) 0.6 x10^3/uL (0.3-0.8) 09/24/19 05:47 Eos # (Auto) 0.0 x10^3/uL (0.0-0.2) 09/24/19 05:47 Baso # (Auto) 0.0 X10^3/uL (0.0-0.1) 09/24/19 05:47 Absolute Nucleated RBC 0.0 /100WBC 09/24/19 05:47 Total Counted 100 09/24/19 05:47 Neutrophils % (Manual) 84 % (39-76) H 09/24/19 05:47 Band Neutrophils % 4 % (0-10) 09/23/19 05:54 Lymphocytes % (Manual) 13 % (13-43) 09/24/19 05:47 Monocytes % (Manual) 3 % (4-9) L 09/24/19 05:47 Plt Morphology Comment Normal (NORMAL) 09/24/19 05:47 RBC Morphology Normal (NORMAL) 09/24/19 05:47 Hypochromasia Slight A 09/23/19 05:54 Target Cells Present 09/22/19 05:08 ESR 108 MM/HOUR (0-15) H 09/24/19 05:47 Sodium 129 mmol/L (136-145) L 09/24/19 05:47 Corrected Sodium 135 mmol/L (136-145) L 09/24/19 05:47 Potassium 4.6 mmol/L (3.5-5.1) 09/24/19 05:47 Chloride 93 mmol/L (98-107) L 09/24/19 05:47 Carbon Dioxide 27.5 mmol/L (21-32) 09/24/19 05:47 BUN 21 mg/dL (7-18) H 09/24/19 05:47 Creatinine 1.52 mg/dL (0.70-1.30) H 09/24/19 05:47 Est GFR (MDRD) Af Amer > 60 (>60) 09/24/19 05:47 Est GFR (MDRD) Non-Af 53 (>60) L 09/24/19 05:47 Glucose 344 mg/dL (65-99) H 09/24/19 05:47 POC Glucose (mg/dL) 303 mg/dL (65-99) H 09/24/19 11:14 Hemoglobin A1c 9.0 % 09/24/19 05:47 Lactic Acid 1.4 mmol/L (0.4-2.0) 09/23/19 18:14 Calcium 9.0 mg/dL (8.5-10.1) 09/24/19 05:47 Corrected Calcium 10.4 mg/dL (8.5-10.1) H 09/24/19 05:47 Magnesium 2.8 mg/dL (1.7-2.9) 09/24/19 05:47 Total Bilirubin 0.50 mg/dL (0.2-1.0) 09/24/19 05:47 AST 13 Units/L (15-37) L 09/24/19 05:47 ALT 21 Units/L (12-78) 09/24/19 05:47 Alkaline Phosphatase 120 Units/L (46-116) H 09/24/19 05:47 C-Reactive Protein 208.90 mg/L (0-3.0) H 09/24/19 05:47 Total Protein 9.3 g/dL (6.4-8.2) H 09/24/19 05:47 Albumin 2.3 g/dL (3.4-5.0) L 09/24/19 05:47 Globulin 7.0 g/dL (2.5-4.5) H 09/24/19 05:47 Albumin/Globulin Ratio 0.3 Ratio (1.1-2.1) L 09/24/19 05:47 Amylase 66 Units/L (25-115) 09/21/19 23:51 Lipase 243 Units/L (73-393) 09/21/19 23:51 Specimen Type Clean catch urine 09/22/19 02:42 Urine Color Yellow (YELLOW) 09/22/19 02:42 Urine Appearance Clear (CLEAR) 09/22/19 02:42 Urine pH 5.0 (5.0 - 8.0) 09/22/19 02:42 Ur Specific [place] 1.010 (1.000-1.030) 09/22/19 02:42 Urine Protein 2+ (NEGATIVE) 09/22/19 02:42 Urine Glucose (UA) 3+ (NEGATIVE) 09/22/19 02:42 Urine Ketones Negative (NEGATIVE) 09/22/19 02:42 Urine Occult Blood 1+ (NEGATIVE) 09/22/19 02:42 Urine Nitrite Negative (NEGATIVE) 09/22/19 02:42 Urine Bilirubin Negative (NEGATIVE) 09/22/19 02:42 Urine Urobilinogen 1+ (NORMAL) 09/22/19 02:42 Ur Leukocyte Esterase Negative (NEGATIVE) 09/22/19 02:42 Urine RBC 0-2 /HPF (0-3) 09/22/19 02:42 Urine WBC 0-2 /HPF (0-5) 09/22/19 02:42 Ur Squamous Epith Cells Rare /HPF (NEGATIVE) 09/22/19 02:42 Urine Bacteria Negative /HPF (NEGATIVE) 09/22/19 02:42 Ur Culture Indicated? No/not indicated 09/22/19 02:42 Stool Description 100g formed brown 09/24/19 04:00 Stl Occult Blood (IFOB) Negative (NEGATIVE) 09/24/19 04:00 Stool for White Cells Negative (NEGATIVE) 09/24/19 04:00 Stl C. diff Tox B Gene Negative (NEGATIVE) 09/24/19 04:00 Stl C. diff 027-NAP1-BI Negative (NEGATIVE) 09/24/19 04:00 Acetone, Semi-Quant Negative (NEGATIVE) 09/21/19 23:51 Blood Type O POSITIVE 09/22/19 05:08 Antibody Screen Negative 09/22/19 05:08 Crossmatch See Detail 09/22/19 05:08 - Assessment and Plan 1: cellulitis Rt foot with plantar ulcer ,possible osteomyelitis within the Rt foot . to continue IV ATB and treat as such for six weeks . awaiting final culture reports . local care with wet to dry dressing of the ulcer and leg elevation .. 2: DM with neuropathy. CKD - Problem Patient Problems: Patient Problems Infected decubitus ulcer (Acute) L89.90, L08.9 Gastroparesis (Acute) K31.84 Leukocytosis (Acute) D72.829 Hyponatremia (Acute) E87.1 Dehydration (Acute) E86.0 Acute renal failure (ARF) (Acute) N17.9 Weakness (Acute) R53.1 Anemia (Acute) D64.9 Shortness of breath (Acute) R06.02 Acute hyponatremia (Acute) E87.1 Neutrophilic leukocytosis (Acute) D72.9 Nausea and vomiting in adult patient (Acute) R11.2
[2019-09-24] MEDS: SNACK - Diabetic Appropriate PO SCH (20:00)
[2019-09-24] MEDS: COZAAR PO SCH (20:30)
[2019-09-24] MEDS: REMERON PO SCH (20:30)
[2019-09-24] MEDS: RESTORIL CAP 30 MG PO PRN (20:31)
[2019-09-24] MEDS: ZOSYN VIAL 3.375 GRAMS 3.375 G in NS 100 ML IV + SPIKE MINIBAG* 100 ML IV SCH (22:05)
[2019-09-25] MEDS: NS 1000 ML 1,000 ML IV SCH ×2 (01:23→12:00)
[2019-09-25] MEDS: NEURONTIN CAP 300 MG PO SCH ×3 (05:49→22:14)
[2019-09-25] MEDS: CARAFATE PO SCH ×4 (05:50→21:00)
[2019-09-25] MEDS: ZOSYN VIAL 3.375 GRAMS 3.375 G in NS 100 ML IV + SPIKE MINIBAG* 100 ML IV SCH ×3 (05:50→22:14)
[2019-09-25] MEDS: DEMEROL INJ IVP PRN ×3 (05:51→22:57)
[2019-09-25] MEDS: HumuLIN R SUBCUT PRN ×4 (05:52→22:15)
[2019-09-25 06:25] LABS: BASOPHILS % (AUTO) 0.2 % (0.2-1.0); HEMATOCRIT 28.1 % (42.0-54.0); HEMOGLOBIN 9.5 g/dL (13.5-18.0); LYMPHOCYTES % (AUTO) 4.4 % (21.0-51.0); MEAN CORPUSCULAR HEMOGLOBIN 25.3 pg (27.0-34.0); MEAN CORPUSCULAR HGB CONC 33.8 g/dL (33.0-35.0); MEAN CORPUSCULAR VOLUME 74.7 fL (80.0-100.0); MEAN PLATELET VOLUME 7.1 fL (7.4-11.0); MONOCYTES # (AUTO) 0.6 x10^3/uL (0.3-0.8); MONOCYTES % (AUTO) 2.9 % (0.0-13.0); NEUTROPHILS # (AUTO) 20.3 x10^3/uL (2.2-4.8); NEUTROPHILS % (AUTO) 92.5 % (42.0-75.0); PLATELET COUNT 627 X10^3/uL (150.0-450.0); RED BLOOD COUNT 3.76 X10^6/uL (4.7-6.0); RED CELL DISTRIBUTION WIDTH 19.5 % (11.6-16.5)
[2019-09-25 06:42] LABS: ALANINE AMINOTRANSFERASE 16 Units/L (12-78); ALBUMIN 2.5 g/dL (3.4-5.0); ALKALINE PHOSPHATASE 107 Units/L (46-116); ASPARTATE AMINO TRANSFERASE 11 Units/L (15-37); BLOOD UREA NITROGEN 27 mg/dL (7-18); CALCIUM 8.8 mg/dL (8.5-10.1); CARBON DIOXIDE 29.5 mmol/L (21-32); CHLORIDE 98 mmol/L (98-107); COR NA(FOR HYPERGLY) 136 mmol/L (136-145); CREATININE 1.17 mg/dL (0.70-1.30); SODIUM 133 mmol/L (136-145); TOTAL PROTEIN 8.7 g/dL (6.4-8.2); eGFR NON BLACK RACES > 60 (>60)
[2019-09-25 07:02] LABS: BAND NEUTROPHILS % 3 % (0-10); BASOPHILS % (MANUAL) 1 % (0-1)
[2019-09-25 07:04] LABS: PLATELET MORPHOLOGY COMMENT NORMAL (NORMAL)
[2019-09-25 07:05] LABS: ANISOCYTOSIS SLIGHT; HYPOCHROMASIA 1+
[2019-09-25] MEDS ORDERED: PHARMACY COMMENT IV NR (08:30)
[2019-09-25 08:35] LABS: ERYTHROCYTE SEDIMENTATION RATE 106 MM/HOUR (0-15)
[2019-09-25] MEDS: ALBUMIN HUMAN 25%- 100 ML 100 ML IV SCH (08:48)
[2019-09-25] MEDS: CARDIZEM CD 240 MG 24-HR PO SCH (08:50)
[2019-09-25] MEDS: DECADRON TAB PO SCH ×2 (08:51→21:00)
[2019-09-25] MEDS: MILK OF MAGNESIA PO SCH ×4 (08:51→21:00)
[2019-09-25] MEDS: COLACE CAP 100 MG PO SCH ×2 (08:51→21:00)
[2019-09-25] MEDS: MIRALAX POWDER (1 DOSE 17 G) PO SCH (08:52)
[2019-09-25] MEDS: NORVASC TAB 5 MG PO SCH (08:52)
[2019-09-25] MEDS: PEPCID TAB 20 MG PO SCH (08:53)
[2019-09-25] MEDS: PROTONIX TAB 40 MG PO SCH ×2 (08:53→21:00)
[2019-09-25 09:17] LABS: CREATININE 1.25 mg/dL (0.70-1.30); VANCOMYCIN,TROUGH 18.5 ug/mL (15-20)
[2019-09-25] MEDS: LEVEMIR SC SCH (09:20)
--- NOTE | 2019-09-25 10:12 | DR.PROGNOT ---
Hospital Progress Notes - Progress Note for Day of: Progress Note Date: 09/25/19 - Chief Complaint Chief Complaint: feeling better . no nausea or vomiting . Rt leg cellulitis is better with less erythema . BS 188. WBC 22.000 . Hgb 9.5 . blood culture Strep pyogenes. Vanco level 18.5 - Past Medical Family Social History Past Med/Fam/Surg Hx: No changes since H&P Allergies: Allergies codeine Allergy (Verified 09/21/19 23:30) morphine Allergy (Verified 09/21/19 23:30) - Review Of Systems ROS: No change since H&P - Vital Signs Vital Signs: Temperature 97.1 F Pulse Rate [Right Brachial] 81 Pulse Rate [Left Brachial] 97 Pulse Rate 77 Respiratory Rate 18 Blood Pressure [Left Arm] 135/65 Blood Pressure [Right Arm] 106/76 Blood Pressure 122/70 O2 Sat by Pulse Oximetry 98 - Physical Exam Oriented: Normal Eyes: Normal Ear: Normal Nose: Normal Throat: Normal Cardiovascular: Normal : Normal GI:Auscultation: Normal GI:Palpation: Normal GI: Tenderness: Epigastric, Moderate Skin: Wound (less erythema and edema ..plantar ulcer is the same . clean base , no abscess or necrosis .) Musculoskeletal: Normal Psychiatric: Normal Mood Description: Calm Affect: Normal Speech Pattern: Clear, Appropriate - Laboratory and Diagnostics Result Diagrams: 09/25/19 04:15 09/25/19 08:55 Labs: 09/23/19 11:55 Foot - Right Gram Stain - Final 09/23/19 11:55 Foot - Right Wound Culture - Final Pseudomonas Aeruginosa 09/24/19 04:00 Stool Stool Culture - Preliminary 09/24/19 04:00 Stool - Final 09/23/19 18:14 Blood Blood Culture - Preliminary 09/23/19 18:10 Blood Blood Culture - Preliminary 09/22/19 01:04 Blood Blood Culture - Preliminary 09/22/19 00:54 Blood Blood Culture - Final Strep Pyogenes (Grp A) Laboratory WBC 22.0 X10^3/uL (3.6-10.0) H 09/25/19 04:15 RBC 3.76 X10^6/uL (4.7-6.0) L 09/25/19 04:15 Hgb 9.5 g/dL (13.5-18.0) L 09/25/19 04:15 Hct 28.1 % (42.0-54.0) L 09/25/19 04:15 MCV 74.7 fL (80.0-100.0) L 09/25/19 04:15 MCH 25.3 pg (27.0-34.0) L 09/25/19 04:15 MCHC 33.8 g/dL (33.0-35.0) 09/25/19 04:15 RDW 19.5 % (11.6-16.5) H 09/25/19 04:15 Plt Count 627 X10^3/uL (150.0-450.0) H 09/25/19 04:15 Plt Count Comment Increased (ADEQUATE) 09/25/19 04:15 MPV 7.1 fL (7.4-11.0) L 09/25/19 04:15 Neut % (Auto) 92.5 % (42.0-75.0) H 09/25/19 04:15 Lymph % (Auto) 4.4 % (21.0-51.0) L 09/25/19 04:15 [place] % (Auto) 2.9 % (0.0-13.0) 09/25/19 04:15 Eos % (Auto) 0.0 % (0.9-2.9) L 09/25/19 04:15 Baso % (Auto) 0.2 % (0.2-1.0) 09/25/19 04:15 Neut # (Auto) 20.3 x10^3/uL (2.2-4.8) H 09/25/19 04:15 Lymph # (Auto) 1.0 X10^3/uL (1.3-2.9) L 09/25/19 04:15 [place] # (Auto) 0.6 x10^3/uL (0.3-0.8) 09/25/19 04:15 Eos # (Auto) 0.0 x10^3/uL (0.0-0.2) 09/25/19 04:15 Baso # (Auto) 0.0 X10^3/uL (0.0-0.1) 09/25/19 04:15 Absolute Nucleated RBC 0.0 /100WBC 09/25/19 04:15 Total Counted 100 09/25/19 04:15 Neutrophils % (Manual) 88 % (39-76) H 09/25/19 04:15 Band Neutrophils % 3 % (0-10) 09/25/19 04:15 Lymphocytes % (Manual) 5 % (13-43) L 09/25/19 04:15 Monocytes % (Manual) 2 % (4-9) L 09/25/19 04:15 Eosinophils % (Manual) 1 % (0-6) 09/25/19 04:15 Basophils % (Manual) 1 % (0-1) 09/25/19 04:15 Plt Morphology Comment Normal (NORMAL) 09/25/19 04:15 RBC Morphology Abnormal (NORMAL) 09/25/19 04:15 Hypochromasia 1+ A 09/25/19 04:15 Anisocytosis Slight A 09/25/19 04:15 Target Cells Present 09/22/19 05:08 ESR 106 MM/HOUR (0-15) H 09/25/19 04:15 Sodium 133 mmol/L (136-145) L 09/25/19 04:15 Corrected Sodium 136 mmol/L (136-145) 09/25/19 04:15 Potassium 5.2 mmol/L (3.5-5.1) H 09/25/19 04:15 Chloride 98 mmol/L (98-107) 09/25/19 04:15 Carbon Dioxide 29.5 mmol/L (21-32) 09/25/19 04:15 BUN 27 mg/dL (7-18) H 09/25/19 04:15 Creatinine 1.25 mg/dL (0.70-1.30) 09/25/19 08:55 Est GFR (MDRD) Af Amer > 60 (>60) 09/25/19 04:15 Est GFR (MDRD) Non-Af > 60 (>60) 09/25/19 04:15 Glucose 205 mg/dL (65-99) H 09/25/19 04:15 POC Glucose (mg/dL) 188 mg/dL (65-99) H 09/25/19 09:27 Hemoglobin A1c 9.0 % 09/24/19 05:47 Lactic Acid 1.4 mmol/L (0.4-2.0) 09/23/19 18:14 Calcium 8.8 mg/dL (8.5-10.1) 09/25/19 04:15 Corrected Calcium 10.0 mg/dL (8.5-10.1) 09/25/19 04:15 Magnesium 2.8 mg/dL (1.7-2.9) 09/24/19 05:47 Total Bilirubin 0.30 mg/dL (0.2-1.0) 09/25/19 04:15 AST 11 Units/L (15-37) L 09/25/19 04:15 ALT 16 Units/L (12-78) 09/25/19 04:15 Alkaline Phosphatase 107 Units/L (46-116) 09/25/19 04:15 C-Reactive Protein 124.70 mg/L (0-3.0) H 09/25/19 04:15 Total Protein 8.7 g/dL (6.4-8.2) H 09/25/19 04:15 Albumin 2.5 g/dL (3.4-5.0) L 09/25/19 04:15 Globulin 6.2 g/dL (2.5-4.5) H 09/25/19 04:15 Albumin/Globulin Ratio 0.4 Ratio (1.1-2.1) L 09/25/19 04:15 Amylase 66 Units/L (25-115) 09/21/19 23:51 Lipase 243 Units/L (73-393) 09/21/19 23:51 Specimen Type Clean catch urine 09/22/19 02:42 Urine Color Yellow (YELLOW) 09/22/19 02:42 Urine Appearance Clear (CLEAR) 09/22/19 02:42 Urine pH 5.0 (5.0 - 8.0) 09/22/19 02:42 Ur Specific [place] 1.010 (1.000-1.030) 09/22/19 02:42 Urine Protein 2+ (NEGATIVE) 09/22/19 02:42 Urine Glucose (UA) 3+ (NEGATIVE) 09/22/19 02:42 Urine Ketones Negative (NEGATIVE) 09/22/19 02:42 Urine Occult Blood 1+ (NEGATIVE) 09/22/19 02:42 Urine Nitrite Negative (NEGATIVE) 09/22/19 02:42 Urine Bilirubin Negative (NEGATIVE) 09/22/19 02:42 Urine Urobilinogen 1+ (NORMAL) 09/22/19 02:42 Ur Leukocyte Esterase Negative (NEGATIVE) 09/22/19 02:42 Urine RBC 0-2 /HPF (0-3) 09/22/19 02:42 Urine WBC 0-2 /HPF (0-5) 09/22/19 02:42 Ur Squamous Epith Cells Rare /HPF (NEGATIVE) 09/22/19 02:42 Urine Bacteria Negative /HPF (NEGATIVE) 09/22/19 02:42 Ur Culture Indicated? No/not indicated 09/22/19 02:42 Stool Description 100g formed brown 09/24/19 04:00 Stl Occult Blood (IFOB) Negative (NEGATIVE) 09/24/19 04:00 Stool for White Cells Negative (NEGATIVE) 09/24/19 04:00 Stl C. diff Tox B Gene Negative (NEGATIVE) 09/24/19 04:00 Stl C. diff [id number] Negative (NEGATIVE) 09/24/19 04:00 Vancomycin Trough 18.5 ug/mL () 09/25/19 08:55 Acetone, Semi-Quant Negative (NEGATIVE) 09/21/19 23:51 Blood Type O POSITIVE 09/22/19 05:08 Antibody Screen Negative 09/22/19 05:08 Crossmatch See Detail 09/22/19 05:08 - Assessment and Plan 1: cellulitis Rt foot with plantar ulcer ,possible osteomyelitis within the Rt foot . to continue IV ATB and treat as such for six weeks . same local care of the Rt foot ulcer.. 2: DM with neuropathy. CKD - Problem Patient Problems: Patient Problems Infected decubitus ulcer (Acute) L89.90, L08.9 Gastroparesis (Acute) K31.84 Leukocytosis (Acute) D72.829 Hyponatremia (Acute) E87.1 Dehydration (Acute) E86.0 Acute renal failure (ARF) (Acute) N17.9 Weakness (Acute) R53.1 Anemia (Acute) D64.9 Shortness of breath (Acute) R06.02 Acute hyponatremia (Acute) E87.1 Neutrophilic leukocytosis (Acute) D72.9 Nausea and vomiting in adult patient (Acute) R11.2
[2019-09-25] MEDS: VANCOMYCIN HCL 1 G in NS 250 ML IV 250 ML IV SCH ×2 (11:02→21:00)
[2019-09-25] MEDS: SNACK - Diabetic Appropriate PO SCH (20:00)
[2019-09-25] MEDS: REMERON PO SCH (21:00)
[2019-09-25] MEDS: COZAAR PO SCH (21:00)
[2019-09-25] MEDS: RESTORIL CAP 30 MG PO PRN (22:14)
[2019-09-26] MEDS: NS 1000 ML 1,000 ML IV SCH ×2 (00:17→12:34)
[2019-09-26] MEDS ORDERED: ROBITUSSIN DM ONE ×2 (00:35→04:48)
[2019-09-26] MEDS: ROBITUSSIN DM PO PRN ×2 (00:45→05:00)
[2019-09-26] MEDS: DEMEROL INJ IVP PRN ×2 (04:59→22:26)
[2019-09-26] MEDS: NEURONTIN CAP 300 MG PO SCH ×3 (05:01→21:47)
[2019-09-26] MEDS: ZOSYN VIAL 3.375 GRAMS 3.375 G in NS 100 ML IV + SPIKE MINIBAG* 100 ML IV SCH (06:12)
[2019-09-26] MEDS: CARAFATE PO SCH ×4 (06:12→21:43)
[2019-09-26] MEDS: HumuLIN R SUBCUT PRN ×3 (06:13→21:00)
[2019-09-26 06:17] LABS: BASOPHILS # (AUTO) 0.1 X10^3/uL (0.0-0.1); BASOPHILS % (AUTO) 0.5 % (0.2-1.0); HEMATOCRIT 33.5 % (42.0-54.0); HEMOGLOBIN 11.1 g/dL (13.5-18.0); LYMPHOCYTES % (AUTO) 5.2 % (21.0-51.0); MEAN CORPUSCULAR HEMOGLOBIN 25.3 pg (27.0-34.0); MEAN CORPUSCULAR HGB CONC 33.2 g/dL (33.0-35.0); MEAN PLATELET VOLUME 7.2 fL (7.4-11.0); MONOCYTES # (AUTO) 0.6 x10^3/uL (0.3-0.8); MONOCYTES % (AUTO) 3.2 % (0.0-13.0); NEUTROPHILS # (AUTO) 16.7 x10^3/uL (2.2-4.8); NEUTROPHILS % (AUTO) 91.1 % (42.0-75.0); PLATELET COUNT 748 X10^3/uL (150.0-450.0); RED BLOOD COUNT 4.41 X10^6/uL (4.7-6.0); RED CELL DISTRIBUTION WIDTH 20.3 % (11.6-16.5); WHITE BLOOD COUNT 18.3 X10^3/uL (3.6-10.0)
[2019-09-26 06:34] LABS: ALANINE AMINOTRANSFERASE 21 Units/L (12-78); ALBUMIN 3.2 g/dL (3.4-5.0); ALKALINE PHOSPHATASE 142 Units/L (46-116); ASPARTATE AMINO TRANSFERASE 12 Units/L (15-37); BLOOD UREA NITROGEN 29 mg/dL (7-18); CALCIUM 9.1 mg/dL (8.5-10.1); CARBON DIOXIDE 26.2 mmol/L (21-32); CHLORIDE 96 mmol/L (98-107); COR CA(FOR HYPOALB) 9.7 mg/dL (8.5-10.1); COR NA(FOR HYPERGLY) 135 mmol/L (136-145); SODIUM 131 mmol/L (136-145); TOTAL PROTEIN 9.8 g/dL (6.4-8.2); eGFR NON BLACK RACES > 60 (>60)
[2019-09-26 07:11] LABS: BAND NEUTROPHILS % 3 % (0-10)
[2019-09-26 07:12] LABS: ANISOCYTOSIS 1+; PLATELET MORPHOLOGY COMMENT NORMAL (NORMAL)
[2019-09-26] MEDS: ALBUMIN HUMAN 25%- 100 ML 100 ML IV SCH (08:43)
[2019-09-26] MEDS: PROTONIX TAB 40 MG PO SCH ×2 (08:45→21:46)
[2019-09-26] MEDS: LEVEMIR SC SCH (08:45)
[2019-09-26] MEDS: PEPCID TAB 20 MG PO SCH (08:46)
[2019-09-26] MEDS: DECADRON TAB PO SCH ×2 (08:46→21:44)
[2019-09-26] MEDS: NORVASC TAB 5 MG PO SCH (08:46)
[2019-09-26] MEDS: COLACE CAP 100 MG PO SCH ×2 (08:46→21:43)
[2019-09-26] MEDS: CARDIZEM CD 240 MG 24-HR PO SCH (08:59)
[2019-09-26] MEDS: CATAPRES-TTS-3 TD SCH (09:00)
[2019-09-26] MEDS: MILK OF MAGNESIA PO SCH ×5 (09:00→21:44)
[2019-09-26] MEDS: MIRALAX POWDER (1 DOSE 17 G) PO SCH (09:00)
[2019-09-26] MEDS: VANCOMYCIN HCL 1 G in NS 250 ML IV 250 ML IV SCH ×2 (09:01→21:46)
[2019-09-26] MEDS ORDERED: ZOSYN VIAL 3.375 GRAMS IV ONE (14:41)
[2019-09-26] MEDS ORDERED: NS 100 ML IV 100 ML IV ONE (14:41)
[2019-09-26] MEDS: ZOSYN VIAL 3.375 GRAMS 3.375 G in NS 100 ML IV 100 ML IV SCH ×2 (14:45→21:48)
--- NOTE | 2019-09-26 16:55 | PCM.PROG ---
Progress Note - Progress Note for Day of Date of Exam: 09/24/19 - Subjective Subjective: IS BEING TREATED FOR LEUKOCYTOSIS, AN INFECTED DIABETIC ULCER, ANEMIA, HYPONATREMIA, GASTROPARESIS, AND GENERALIZED WEAKNESS. HE RECEIVED TWO UNITS OF PRBC TWO DAYS AGO. TODAY, HE IS ALERT AND ORIENTED, LYING IN BED ON MORNING ROUND. HE CONTINUES WITH WEAKNESS, ABDOMINAL PAIN, AND NAUSEA. ON EXAMINATION, HEART IS REGULAR IN RATE AND RHYTHM. BILATERAL LUNGS ARE NOTED WITH DIMINISHED LUNG SOUNDS THROUGHOUT. ABDOMEN IS ROUND, SOFT, AND NOTED WITH EPIGASTRIC TENDERNESS TO PALPATION. NORMAL BOWEL SOUNDS ARE NOTED IN ALL QUADRANTS. THERE IS A DRESSING NOTED TO THE RIGHT FOOT. THERE IS ALSO WARMTH AND 1+ PITTING EDEMA TO THE LOWER EXTREMITY. HIS VITALS THIS MORNING ARE: 98.3-84-18 -97%-145/89. LABS WERE OBTAINED. ABNORMAL LAB VALUES INCLUDE THE FOLLOWING: WBC 24.4, RBC 3.99, HGB 10.0, HCT 30.1, PLT 628, SODIUM 133, POTASSIUM 5.2, BUN 27, GLUCOSE 205, AST 11, CRP 124.70, TOTAL PROTEIN 8.7, ALBUMIN 2.5. LAB REPORTED THAT BLOOD CULTURES ARE GROWING A GRAM POSITIVE COCCI. A WOUND CULTURE WAS OBTAINED. A LOWER EXTREMITY MRI WAS OBTAINED YESTERDAY AND REVEALED: Ill-defined bone marrow edema within the posterior tibial plafond, medial, lateral malleoli and anterior process of the talus. Ill-defined bone marrow edema within the cuboid, lateral cuneiform along with the 3rd and 4th metatarsal heads is indeterminate, reactive bone marrow changes/stress reaction secondary to altered biomechanics in the setting of a neuropathy is a consideration; however, underlying osteomyelitis should be considered and further evaluation with patient history, ESR and CRP levels is recommended. 2. Moderate tenosynovitis of the medial and lateral ankle tendons needs clinical correlation as this can be seen in setting of an infectious or inflammatory tenosynovitis. 3. Small subcutaneous ulceration within the plantar aspect of the forefoot between the 2nd and 3rd toe metatarsal heads, there is no adjacent localizing subcutaneous fluid collection or MR findings to suggest osteomyelitis. HE IS CURRENTLY RECEIVING NS AT 100 ML/HR, ZOSYN 2.25G IV Q8H, VANCOMYCIN IV, HUMULIN R SLIDIDNG SCALE, DEMEROL 25MG IV Q4H PRN, PHENERGAN 25MG IM Q4H PRN NAUSEA. CONSULTED WITH PATIENT. WE HAVE DISCUSSED TREATMENT PLAN AND FEEL THAT IT IS BEST TO CONTINUE 6 WEEKS OF ANTIBIOTICS. OTHERWISE, WE WILL FOLLOW UP WITH AM LABS AND CONTINUE TO MONITOR. - Past Medical Family Social History Past Med/Fam/Surg Hx: No changes since H&P Allergies: Allergies codeine Allergy (Verified 09/21/19 23:30) morphine Allergy (Verified 09/21/19 23:30) - Review of Systems ROS: No change since H&P - Vital Signs and I&O's Vital Signs: Temperature 98.8 F Pulse Rate [Right Brachial] 67 Pulse Rate [Left Brachial] 60 Pulse Rate 86 Respiratory Rate 18 Blood Pressure [Left Arm] 122/72 Blood Pressure [Right Arm] 106/76 Blood Pressure 122/70 O2 Sat by Pulse Oximetry 98 Intake and Output: Intake & Output 09/24/19 09/25/19 09/26/19 09/27/19 11:59 11:59 11:59 11:59 Intake Total 3626 / 3626 1865 / 1865 4331 / 4331 1302 / 1302 Output Total 4525 / 4525 1350 / 1350 1450 / 1450 Balance -899 / -899 515 / 515 2881 / 2881 1302 / 1302 - Physical Exam Oriented: Normal Eyes: Normal Ear: Normal Nose: Normal Throat: Normal Cardiovascular: Normal : Normal Auscultation: Bowel Sounds: Normal Palpation: Normal Tenderness: Epigastric, Moderate Skin: Wound (less erythema and edema ..plantar ulcer is the same . clean base , no abscess or necrosis .) Musculoskeletal: Normal Psychiatric: Normal Mood Description: Calm Affect: Normal Speech Pattern: Clear, Appropriate - Laboratory and Diagnostics Result Diagrams: 09/26/19 04:35 09/26/19 04:35 Labs: 09/24/19 04:00 Stool Stool Culture - Final 09/24/19 04:00 Stool - Final 09/23/19 11:55 Foot - Right Gram Stain - Final 09/23/19 11:55 Foot - Right Wound Culture - Final Pseudomonas Aeruginosa 09/23/19 18:14 Blood Blood Culture - Preliminary 09/23/19 18:10 Blood Blood Culture - Preliminary 09/22/19 01:04 Blood Blood Culture - Preliminary 09/22/19 00:54 Blood Blood Culture - Final Strep Pyogenes (Grp A) Laboratory WBC 18.3 X10^3/uL (3.6-10.0) H 09/26/19 04:35 RBC 4.41 X10^6/uL (4.7-6.0) L 09/26/19 04:35 Hgb 11.1 g/dL (13.5-18.0) L 09/26/19 04:35 Hct 33.5 % (42.0-54.0) L 09/26/19 04:35 MCV 76.0 fL (80.0-100.0) L 09/26/19 04:35 MCH 25.3 pg (27.0-34.0) L 09/26/19 04:35 MCHC 33.2 g/dL (33.0-35.0) 09/26/19 04:35 RDW 20.3 % (11.6-16.5) H 09/26/19 04:35 Plt Count 748 X10^3/uL (150.0-450.0) H 09/26/19 04:35 Plt Count Comment Increased (ADEQUATE) 09/26/19 04:35 MPV 7.2 fL (7.4-11.0) L 09/26/19 04:35 Neut % (Auto) 91.1 % (42.0-75.0) H 09/26/19 04:35 Lymph % (Auto) 5.2 % (21.0-51.0) L 09/26/19 04:35 [place] % (Auto) 3.2 % (0.0-13.0) 09/26/19 04:35 Eos % (Auto) 0.0 % (0.9-2.9) L 09/26/19 04:35 Baso % (Auto) 0.5 % (0.2-1.0) 09/26/19 04:35 Neut # (Auto) 16.7 x10^3/uL (2.2-4.8) H 09/26/19 04:35 Lymph # (Auto) 1.0 X10^3/uL (1.3-2.9) L 09/26/19 04:35 [place] # (Auto) 0.6 x10^3/uL (0.3-0.8) 09/26/19 04:35 Eos # (Auto) 0.0 x10^3/uL (0.0-0.2) 09/26/19 04:35 Baso # (Auto) 0.1 X10^3/uL (0.0-0.1) 09/26/19 04:35 Absolute Nucleated RBC 0.0 /100WBC 09/26/19 04:35 Total Counted 100 09/26/19 04:35 Neutrophils % (Manual) 86 % (39-76) H 09/26/19 04:35 Band Neutrophils % 3 % (0-10) 09/26/19 04:35 Lymphocytes % (Manual) 9 % (13-43) L 09/26/19 04:35 Monocytes % (Manual) 2 % (4-9) L 09/26/19 04:35 Eosinophils % (Manual) 1 % (0-6) 09/25/19 04:15 Basophils % (Manual) 1 % (0-1) 09/25/19 04:15 Plt Morphology Comment Normal (NORMAL) 09/26/19 04:35 RBC Morphology Abnormal (NORMAL) 09/26/19 04:35 Hypochromasia 1+ A 09/25/19 04:15 Anisocytosis 1+ A 09/26/19 04:35 Target Cells Present 09/22/19 05:08 ESR 106 MM/HOUR (0-15) H 09/25/19 04:15 Sodium 131 mmol/L (136-145) L 09/26/19 04:35 Corrected Sodium 135 mmol/L (136-145) L 09/26/19 04:35 Potassium 4.7 mmol/L (3.5-5.1) 09/26/19 04:35 Chloride 96 mmol/L (98-107) L 09/26/19 04:35 Carbon Dioxide 26.2 mmol/L (21-32) 09/26/19 04:35 BUN 29 mg/dL (7-18) H 09/26/19 04:35 Creatinine 1.20 mg/dL (0.70-1.30) 09/26/19 04:35 Est GFR (MDRD) Af Amer > 60 (>60) 09/26/19 04:35 Est GFR (MDRD) Non-Af > 60 (>60) 09/26/19 04:35 Glucose 248 mg/dL (65-99) H 09/26/19 04:35 POC Glucose (mg/dL) 293 mg/dL (65-99) H 09/26/19 16:32 Hemoglobin A1c 9.0 % 09/24/19 05:47 Lactic Acid 1.4 mmol/L (0.4-2.0) 09/23/19 18:14 Calcium 9.1 mg/dL (8.5-10.1) 09/26/19 04:35 Corrected Calcium 9.7 mg/dL (8.5-10.1) 09/26/19 04:35 Magnesium 2.8 mg/dL (1.7-2.9) 09/24/19 05:47 Total Bilirubin 0.50 mg/dL (0.2-1.0) 09/26/19 04:35 AST 12 Units/L (15-37) L 09/26/19 04:35 ALT 21 Units/L (12-78) 09/26/19 04:35 Alkaline Phosphatase 142 Units/L (46-116) H 09/26/19 04:35 C-Reactive Protein 124.70 mg/L (0-3.0) H 09/25/19 04:15 Total Protein 9.8 g/dL (6.4-8.2) H 09/26/19 04:35 Albumin 3.2 g/dL (3.4-5.0) L 09/26/19 04:35 Globulin 6.6 g/dL (2.5-4.5) H 09/26/19 04:35 Albumin/Globulin Ratio 0.5 Ratio (1.1-2.1) L 09/26/19 04:35 Amylase 66 Units/L (25-115) 09/21/19 23:51 Lipase 243 Units/L (73-393) 09/21/19 23:51 Specimen Type Clean catch urine 09/22/19 02:42 Urine Color Yellow (YELLOW) 09/22/19 02:42 Urine Appearance Clear (CLEAR) 09/22/19 02:42 Urine pH 5.0 (5.0 - 8.0) 09/22/19 02:42 Ur Specific Jelm 1.010 (1.000-1.030) 09/22/19 02:42 Urine Protein 2+ (NEGATIVE) 09/22/19 02:42 Urine Glucose (UA) 3+ (NEGATIVE) 09/22/19 02:42 Urine Ketones Negative (NEGATIVE) 09/22/19 02:42 Urine Occult Blood 1+ (NEGATIVE) 09/22/19 02:42 Urine Nitrite Negative (NEGATIVE) 09/22/19 02:42 Urine Bilirubin Negative (NEGATIVE) 09/22/19 02:42 Urine Urobilinogen 1+ (NORMAL) 09/22/19 02:42 Ur Leukocyte Esterase Negative (NEGATIVE) 09/22/19 02:42 Urine RBC 0-2 /HPF (0-3) 09/22/19 02:42 Urine WBC 0-2 /HPF (0-5) 09/22/19 02:42 Ur Squamous Epith Cells Rare /HPF (NEGATIVE) 09/22/19 02:42 Urine Bacteria Negative /HPF (NEGATIVE) 09/22/19 02:42 Ur Culture Indicated? No/not indicated 09/22/19 02:42 Stool Description 100g formed brown 09/24/19 04:00 Stl Occult Blood (IFOB) Negative (NEGATIVE) 09/24/19 04:00 Stool for White Cells Negative (NEGATIVE) 09/24/19 04:00 Stl C. diff Tox B Gene Negative (NEGATIVE) 09/24/19 04:00 Stl C. diff [id number] Negative (NEGATIVE) 09/24/19 04:00 Vancomycin Trough 18.5 ug/mL () 09/25/19 08:55 Acetone, Semi-Quant Negative (NEGATIVE) 09/21/19 23:51 Blood Type O POSITIVE 09/22/19 05:08 Antibody Screen Negative 09/22/19 05:08 Crossmatch See Detail 09/22/19 05:08 - Plan (1) Leukocytosis Status: Acute Plan: NS AT 100 ML/HR, ZOSYN 2.25G IV Q8H, VANCOMYCIN, HUMULIN R SLIDIDNG SCALE, DEMEROL 25MG IV Q4H PRN, PHENERGAN 25MG IM Q4H PRN NAUSEA (2) Infected decubitus ulcer Status: Acute Qualifiers: Pressure injury stage: unspecified pressure injury stage Qualified Code(s): L89.90 - Pressure ulcer of unspecified site, unspecified stage; L08.9 - Local infection of the skin and subcutaneous tissue, unspecified Plan: ZOSYN IV, VANCOMYCIN IV, WOUND CARE, CONTINUE TO MONITOR (3) Anemia Status: Acute Qualifiers: Anemia type: other cause Other causes of anemia: other cause, not classified Qualified Code(s): D64.89 - Other specified anemias Plan: CONTINUE TO MONITOR H&H (4) Hyponatremia Status: Acute (5) Gastroparesis Status: Acute (6) Weakness Status: Acute
[2019-09-26] MEDS: SNACK - Diabetic Appropriate PO SCH (20:00)
[2019-09-26] MEDS: COZAAR PO SCH (21:43)
[2019-09-26] MEDS: REMERON PO SCH (21:46)
[2019-09-26] MEDS: RESTORIL CAP 30 MG PO PRN (21:48)
[2019-09-26] MEDS ORDERED: ZOSYN VIAL 3.375 GRAMS 3.375 G in NS 100 ML IV 100 ML IV SCH (22:00)
[2019-09-27] MEDS: ZOFRAN INJ 4 MG VIAL IVP PRN
[2019-09-27] MEDS: NS 1000 ML 1,000 ML IV SCH ×2 (05:48→05:56)
[2019-09-27] MEDS: NEURONTIN CAP 300 MG PO SCH ×2 (05:48→14:51)
[2019-09-27] MEDS: CARAFATE PO SCH ×2 (05:49→11:58)
[2019-09-27] MEDS: ZOSYN VIAL 3.375 GRAMS 3.375 G in NS 100 ML IV 100 ML IV SCH ×2 (05:49→14:51)
[2019-09-27] MEDS: HumuLIN R SUBCUT PRN ×2 (05:50→11:58)
[2019-09-27 06:35] LABS: BASOPHILS % (AUTO) 0.2 % (0.2-1.0); HEMATOCRIT 31.7 % (42.0-54.0); HEMOGLOBIN 10.5 g/dL (13.5-18.0); LYMPHOCYTES # (AUTO) 0.6 X10^3/uL (1.3-2.9); LYMPHOCYTES % (AUTO) 3.3 % (21.0-51.0); MEAN CORPUSCULAR HEMOGLOBIN 25.1 pg (27.0-34.0); MEAN CORPUSCULAR HGB CONC 33.1 g/dL (33.0-35.0); MEAN CORPUSCULAR VOLUME 75.9 fL (80.0-100.0); MEAN PLATELET VOLUME 7.2 fL (7.4-11.0); MONOCYTES # (AUTO) 0.5 x10^3/uL (0.3-0.8); NEUTROPHILS # (AUTO) 16.8 x10^3/uL (2.2-4.8); NEUTROPHILS % (AUTO) 93.5 % (42.0-75.0); PLATELET COUNT 655 X10^3/uL (150.0-450.0); RED BLOOD COUNT 4.18 X10^6/uL (4.7-6.0); RED CELL DISTRIBUTION WIDTH 19.8 % (11.6-16.5); WHITE BLOOD COUNT 17.9 X10^3/uL (3.6-10.0)
[2019-09-27 07:02] LABS: ALANINE AMINOTRANSFERASE 16 Units/L (12-78); ALBUMIN 3.1 g/dL (3.4-5.0); ALKALINE PHOSPHATASE 123 Units/L (46-116); ASPARTATE AMINO TRANSFERASE 10 Units/L (15-37); BLOOD UREA NITROGEN 23 mg/dL (7-18); CALCIUM 8.6 mg/dL (8.5-10.1); CARBON DIOXIDE 26.3 mmol/L (21-32); CHLORIDE 99 mmol/L (98-107); COR CA(FOR HYPOALB) 9.3 mg/dL (8.5-10.1); COR NA(FOR HYPERGLY) 137 mmol/L (136-145); CREATININE 1.07 mg/dL (0.70-1.30); SODIUM 133 mmol/L (136-145); TOTAL PROTEIN 8.7 g/dL (6.4-8.2); eGFR NON BLACK RACES > 60 (>60)
[2019-09-27 07:14] LABS: ANISOCYTOSIS SLIGHT; BAND NEUTROPHILS % 7 % (0-10); PLATELET MORPHOLOGY COMMENT NORMAL (NORMAL)
[2019-09-27] MEDS: LEVEMIR SC SCH (08:30)
[2019-09-27] MEDS: PEPCID TAB 20 MG PO SCH (08:35)
[2019-09-27] MEDS: COLACE CAP 100 MG PO SCH (08:36)
[2019-09-27] MEDS: DECADRON TAB PO SCH (08:36)
[2019-09-27] MEDS: CARDIZEM CD 240 MG 24-HR PO SCH (08:36)
[2019-09-27] MEDS: PROTONIX TAB 40 MG PO SCH (08:36)
[2019-09-27] MEDS: NORVASC TAB 5 MG PO SCH (08:37)
[2019-09-27] MEDS: ALBUMIN HUMAN 25%- 100 ML 100 ML IV SCH (08:38)
[2019-09-27] MEDS: MIRALAX POWDER (1 DOSE 17 G) PO SCH (08:39)
[2019-09-27 09:26] LABS: CREATININE 1.05 mg/dL (0.70-1.30); VANCOMYCIN,TROUGH 17.7 ug/mL (15-20)
[2019-09-27] MEDS: MILK OF MAGNESIA PO SCH ×2 (10:46→14:50)
[2019-09-27] MEDS: VANCOMYCIN HCL 1 G in NS 250 ML IV 250 ML IV SCH (10:59)
[2019-09-27 13:23] VITALS: BP 154/86
== END 2019-09-27 15:50 | disposition home or self-care (01) | DRG 603 ==
LOC: ER 23:01 → MED/SURG 09-22 04:41
PROVIDERS: ADMIT Internal Medicine; ATTEND Internal Medicine
DX: R78.81 Bacteremia; N18.9 Chronic kidney disease, unspecified; M86.171 Other acute osteomyelitis, right ankle and foot; I25.10 Atherosclerotic heart disease of native coronary artery without angina pectoris; E11.40 Type 2 diabetes mellitus with diabetic neuropathy, unspecified; D64.89 Other specified anemias; K21.9 Gastro-esophageal reflux disease without esophagitis; R53.1 Weakness; B95.0 Streptococcus, group A, as the cause of diseases classified elsewhere; E78.2 Mixed hyperlipidemia; E11.621 Type 2 diabetes mellitus with foot ulcer; R60.0 Localized edema; I12.9 Hypertensive chronic kidney disease with stage 1 through stage 4 chronic kidney disease, or unspecified chronic kidney disease; B96.5 Pseudomonas (aeruginosa) (mallei) (pseudomallei) as the cause of diseases classified elsewhere; K31.84 Gastroparesis; E87.1 Hypo-osmolality and hyponatremia; I48.91 Unspecified atrial fibrillation; N17.8 Other acute kidney failure; E11.65 Type 2 diabetes mellitus with hyperglycemia; R06.02 Shortness of breath; R11.2 Nausea with vomiting, unspecified; L03.115 Cellulitis of right lower limb